=== PATIENT | male | born 1945 | race Caucasian/White ===

== ENCOUNTER → 2019-04-29 09:31 | Outpatient (CLI) | payer MEDICARE, SELFPAY ==
[2015-01-03 16:10] VITALS: BMI 29.7
[2019-04-29 09:49] LABS: International Normalized Ratio 3.3; Prothrombin Time (Protime)PT. 33.4 SECONDS (11.7-14.9)
== END ==
PROVIDERS: Family Provider Family Medicine; PCP Family Medicine; Referring Provider Family Medicine; Visit Provider Family Medicine
DX: I82.401 Acute embolism and thrombosis of unspecified deep veins of right lower extremity (principal)
CPT/HCPCS: 85610

== ENCOUNTER → 2019-04-30 09:23 | Outpatient (CLI) | payer MEDICARE, SELFPAY ==
[2019-04-30 10:00] LABS: International Normalized Ratio 2.6; Prothrombin Time (Protime)PT. 28.3 SECONDS (11.7-14.9)
== END ==
PROVIDERS: Family Provider Family Medicine; PCP Family Medicine; Referring Provider Family Medicine; Visit Provider Family Medicine
DX: I82.401 Acute embolism and thrombosis of unspecified deep veins of right lower extremity (principal)
CPT/HCPCS: 85610

== ENCOUNTER → 2019-05-04 10:18 | Outpatient (CLI) | payer MEDICARE, SELFPAY ==
[2015-01-03 16:10] VITALS: BMI 29.7
[2019-05-04 11:02] LABS: International Normalized Ratio 1.8; Prothrombin Time (Protime)PT. 21.1 SECONDS (11.7-14.9)
== END ==
PROVIDERS: Family Provider Family Medicine; PCP Family Medicine; Referring Provider Family Medicine; Visit Provider Family Medicine
DX: I82.401 Acute embolism and thrombosis of unspecified deep veins of right lower extremity (principal)
CPT/HCPCS: 85610

== ENCOUNTER → 2019-06-26 10:03 | Outpatient (CLI) | payer MEDICARE, SELFPAY ==
[2015-01-03 16:10] VITALS: BMI 29.7
[2019-06-26 10:30] LABS: International Normalized Ratio 1.9; Prothrombin Time (Protime)PT. 21.9 SECONDS (11.7-14.9)
== END ==
PROVIDERS: Family Provider Family Medicine; PCP Family Medicine; Referring Provider Family Medicine; Visit Provider Family Medicine
DX: Z86.718 Personal history of other venous thrombosis and embolism (principal)
CPT/HCPCS: 85610

== ENCOUNTER 2019-10-26 18:29 | Emergency (ER) | payer MEDICARE, SELFPAY ==
[2019-10-26] VITALS (18 sets, daily range): BP systolic 138–167; BP diastolic 67–92; PULSE 76–83; RESP 18–25; TEMP 36.6; O2SAT 97–99; BMI 31.3
--- NOTE | 2019-10-26 18:39 | EKG12_ITS ---
Test Reason : STROKE Blood Pressure : / mmHG Vent. Rate : 087 BPM Atrial Rate : 087 BPM P-R Int : 220 ms QRS Dur : 092 ms QT Int : 416 ms P-R-T Axes : 063 047 070 degrees QTc Int : 500 ms Sinus rhythm with 1st degree A-V block Nonspecific ST and T wave abnormality Prolonged QT Abnormal ECG Confirmed by JUANITA PRETTY, HALEY ([id number]), editor trade journal GILLIAN DRAKE ([id number]) on 10/27/2019 1:45:49 PM Referred By: GREG Confirmed By:HALEY GRANT MD
--- NOTE | 2019-10-26 18:39 | CT_ITS ---
We are attempting to reach an attending provider to discuss findings. An addendum with communication details will be sent when the communication is complete. STUDY: CT BRAIN WITHOUT CONTRAST REASON FOR EXAM: Male, 74 years old. RT SIDE WEAKNESS, STROKE RADIATION DOSAGE (If Supplied By Facility): CTDIvol = ( 44.99 ) mGy, DLP = ( 849.54 ) mGycm TECHNIQUE: Transaxial CT imaging of the brain was performed without administration of intravenous contrast material. Individualized dose optimization techniques were used for this CT. COMPARISON: No relevant priors. FINDINGS: Normal soft tissue structures. Normal calvarium. Acute hemorrhage in the left basal ganglia measures 1.3 x 0.9 x 2.8 cm. There is a chronic right occipital infarct. Small chronic bifrontal infarcts. There is moderate cerebral atrophy with widening of the extra-axial spaces and ventricular dilatation. There are areas of decreased attenuation within the white matter tracts of the supratentorial brain, consistent with microvascular disease changes. Normal visualized paranasal sinuses. CT/Brain/Head without Contrast IMPRESSION: 1. Acute left basal ganglia hemorrhage, likely hypertensive in origin. 2. Chronic right occipital and bifrontal infarcts. 3. Moderate microvascular ischemic changes. Atrophy. Electronically Signed: Kadi Erwin MD at 19:04 EDT Tel , Service support ,
--- NOTE | 2019-10-26 18:40 | CT_ITS ---
STUDY: CTA HEAD AND NECK WITH CONTRAST REASON FOR EXAM: Male, 74 years old. RIGHT SIDED WEAKNESS RADIATION DOSAGE (If Supplied By Facility): CTDIvol = ( 18.31 ) mGy, DLP = ( 858.04 ) mGycm TECHNIQUE: CT angiography was performed with a multi-detector CT scanner. Data acquisition was obtained from the skull base through the vertex following intravenous administration of IV 100 ML ISOVUE 370. MIP images were reconstructed from the axial data set. Post-processing of the angiographic images was performed, with multiplanar reformation and 3D reconstruction. Individualized dose optimization techniques were used for this CT. COMPARISON: No relevant priors. FINDINGS: Study limited by performance in venous phase. Petrous and cavernous arteries are patent bilaterally. Hypoplastic or aplastic A1 segment of the left anterior cerebral artery. Anterior cerebral arteries are otherwise unremarkable. No aneurysm, dissection, stenosis, or occlusion. Normal intact anterior communicating artery (ACOM). Normal right M1 and M2 segments of the middle cerebral arteries, with a normal M1 bifurcation. Normal left M1 and M2 segments of the middle cerebral arteries, with a normal M1 bifurcation. Nonvisualized posterior communicating arteries. Normal bilateral vertebral arteries. Normal basilar artery with a normal basilar bifurcation. The visualized bilateral superior cerebellar (SCA) arteries are normal. Hypoplastic P1 segment of the right posterior cerebral artery. Posterior cerebral arteries are otherwise unremarkable. There is no demonstrated aneurysm of the [place]. AORTIC ARCH: Normal visualized aortic arch. Normal origins of the brachiocephalic, left common carotid, and left subclavian arteries. RIGHT CAROTID ARTERIES: Normal right common carotid artery (CCA). Normal right common carotid bulb. Normal origin of the right internal carotid (ICA) artery without stenosis. Normal visualized cervical portion of the right internal carotid artery. Normal origin of the right external carotid artery (ECA). LEFT CAROTID ARTERIES: Normal left common carotid artery (CCA). Normal left common carotid bulb. Normal origin of the left internal carotid (ICA) artery without stenosis. Normal visualized cervical portion of the left internal carotid artery. Normal origin of the left external carotid artery (ECA). VERTEBRAL ARTERIES: Normal bilateral vertebral arteries. CT/CTA Head AND Neck W/ Contrast IMPRESSION: Normal CTA Head and neck with contrast. N.B. : The above information has been verbally conveyed by Kadi Erwin MD to Otis Zimmerman on 10/26/2019 19:05:29 (ET). Electronically Signed: Kadi Erwin MD at 19:15 EDT Tel , Service support ,
--- NOTE | 2019-10-26 18:40 | ED.DCSUM_ITS ---
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 The patient states that he was feeling lightheaded and felt like he was going to pass out. He states he felt like his right leg went out and went to the ground. Since then, he has had difficulty controlling his right arm and right leg. He did not strike his head. He denies loss of consciousness. He is been compliant with his Coumadin therapy. He has no history of prior stroke. He states he is otherwise been in his normal state of health. Prior similar symptoms: No Recent Illness/Hospitalization: No Past Medical History - Allergies and Home Meds Allergies/Adverse Reactions: Allergies No Known Allergies Allergy (Verified 10/26/19 18:31) Primary Care Physician: Sanju Fiore MD [Primary Care Provider] - Prior records reviewed: Yes Past Medical History: - - History of prior liver transplant, DVT on Coumadin Surgical History: - - Liver transplant Smoking Status: Never smoker Review of Systems General: Denies: Chills, Fever, Sweats Eyes: Denies: Visual changes - bilaterally, Diplopia ENT: Denies: Rhinorrhea, Sore throat Cardiovascular: Denies: Chest pain, Palpitations Respiratory: Denies: Dyspnea, Cough, Dyspnea on exertion Gastrointestinal: Denies: Abdominal pain, Nausea, Vomiting, Diarrhea, Melena, Hematochezia Genitourinary: Denies: Dysuria, Hematuria, Frequency Musculoskeletal: Denies: Back pain, Extremity Pain Skin: Denies: Rash, Wounds Neurological: Reports: Weakness, Numbness. Denies: Headache Physical Exam Vital Signs/Narrative: Vital Signs Temp Pulse Resp BP Pulse Ox 10/26/19 18:30 98 F 78 18 161/77 H 97 Inital Vital Signs reviewed: Yes General: Well nourished, Well developed, No Acute Distress Head: Normocephalic, Atraumatic Eyes: Perrl, EOMI ENT: Moist mucous membranes, No rhinorrhea Neck: Supple, Nontender Cardiovascular: Regular rate, Regular rhythm, No murmurs Respiratory: No distress, CTA bilaterally, Chest nontender Abdomen: Soft, Nontender, Nondistended, Normal bowel sounds Back: Nontender, Normal Inspection Extremities: Nontender, No edema Skin: Normal color, No rash Neurological: Alert, Oriented x3, Cranial nerves II-XII grossly intact, Parasthesia, Weakness. Negative for: Confused, Disoriented, Lethargic, Right side facial droop Psychological: Normal affect, Normal Mood Diagnostic/Tx/Re-eval Clinical Impression(s) from Imaging Studies Brain CT 10/26/19 18:39 IMPRESSION: 1. Acute left basal ganglia hemorrhage, likely hypertensive in origin. 2. Chronic right occipital and bifrontal infarcts. 3. Moderate microvascular ischemic changes. Atrophy. Electronically Signed: Kadi Erwin MD at 19:04 EDT Tel , Service support , ADDENDUM: 10/26/19 1912 IMPRESSION: 1. Acute left basal ganglia hemorrhage, likely hypertensive in origin. 2. Chronic right occipital and bifrontal infarcts. 3. Moderate microvascular ischemic changes. Atrophy. N.B. : The above information has been verbally conveyed by Kadi Erwin MD to Otis Zimmerman MD, on 10/26/2019 19:05:42 (ET). Electronically Signed: Kadi Erwin MD at 19:04 EDT Tel , Service support , Head/Neck CTA 10/26/19 18:40 IMPRESSION: Normal CTA Head and neck with contrast. N.B. : The above information has been verbally conveyed by Kadi Erwin MD to Otis Zimmerman on 10/26/2019 19:05:29 (ET). Electronically Signed: Kadi Erwin MD at 19:15 EDT Tel , Service support , ADDENDUM: 10/26/19 1922 IMPRESSION: Normal CTA Head and neck with contrast. N.B. : The above information has been verbally conveyed by Kadi Erwin MD to Otis Zimmerman on 10/26/2019 19:05:29 (ET). Electronically Signed: Kadi Erwin MD at 19:15 EDT Tel , Service support , Abnormal Lab Results 10/26/19 10/26/19 10/26/19 18:41 18:45 18:45 WBC 7.2 RBC 3.38 L Hgb 9.0 L Hct 28.0 L MCV 82.8 MCH 26.6 L MCHC 32.1 RDW Std Deviation 43.2 RDW Coeff of Ursula 14.4 Plt Count 132 L MPV 8.3 Immature Gran % (Auto) 1.100 H Neut % (Auto) 71.9 H Lymph % (Auto) 15.8 L [place] % (Auto) 8.9 Eos % (Auto) 1.7 Baso % (Auto) 0.6 Absolute Neuts (auto) 5.2 Absolute Lymphs (auto) 1.13 Nucleated RBC % 0 PT 28.0 H INR 2.6 APTT 65.7 H Sodium Potassium Chloride Carbon Dioxide Anion Gap BUN Creatinine Estim Creat Clear Calc Est GFR (MDRD) Af Amer Est GFR (MDRD) Non-Af BUN/Creatinine Ratio Glucose Calcium Troponin I POC Glucose 116 H 10/26/19 18:45 WBC RBC Hgb Hct MCV MCH MCHC RDW Std Deviation RDW Coeff of Ursula Plt Count MPV Immature Gran % (Auto) Neut % (Auto) Lymph % (Auto) [place] % (Auto) Eos % (Auto) Baso % (Auto) Absolute Neuts (auto) Absolute Lymphs (auto) Nucleated RBC % PT INR APTT Sodium 138 Potassium 4.5 Chloride 109 H Carbon Dioxide 22.0 Anion Gap 7 BUN 42 H Creatinine 2.71 H Estim Creat Clear Calc 22.36 Est GFR (MDRD) Af Amer 30 L Est GFR (MDRD) Non-Af 25 L BUN/Creatinine Ratio 15.5 Glucose 127 H Calcium 8.6 Troponin I < 0.015 POC Glucose - Medical Decision Making The patient presents to the emergency department with right-sided weakness. His NIH was only 3, but given the history, stroke team was activated. The patient was sent immediately for a noncontrast head CT. This does show evidence of hypertensive bleed in the left basal ganglia. The patient was seen and evaluated in conjunction with [facility] neurology. CTs were reviewed. It was recommended transfer. However, the patient has received all of his care through [facility] and was requesting transfer there. His INR is therapeutic at 2.6, but given the hemorrhagic stroke, this will be acutely reversed. The patient is given Kcentra and vitamin K. He is mildly hypertensive at 160/70, therefore was started on a Cardene drip. The patient was discussed with neurosurgery, Dr. Bean at [facility] and was accepted. He will be transferred for intraparenchymal hemorrhage. Impression 1. Acute hemorrhagic stroke - Critical Care Time Critical care time (excluding procedures): 30-74 minutes, Discussing w/Patient &/or Family/Director Of First Impressions, Discussing w/Consultants, Arranging Admission or Transfer, Performing Direct Patient Care at Bedside ED Disposition - Plan for ED Patient: Referrals: Sanju Fiore MD [Primary Care Provider] -
--- NOTE | 2019-10-26 18:42 | ED.RN ---
NO OLD EKGS IN MUSE
[2019-10-26 18:50] LABS: Bedside Glucose 116 mg/dL (70-110)
--- NOTE | 2019-10-26 18:50 | CM.ED ---
SOCIAL WORK REASON FOR REFERRAL: STROKE ALERT RESPONDED TO STROKE ALERT. PATIENT'S , KIANNA PRESENT. SUPPORT AND EDUCATION PROVIDED. THIS WORKER TO REMAIN AVAILABLE FOR NEEDS. Debby RASCON, CROP RANCH HAND, GRAIN UNLOADER MACHINE.
[2019-10-26 18:54] LABS: Absolute Lymphocyte Count 1.13 X10^3/uL (0.83-4.51); Absolute Neutrophil Count 5.2 X10^3/uL (2.0-7.7); Basophil# 0.04 X10^3/uL; Basophil% 0.6 % (0-1); Eosinophil# 0.12 X10^3/uL; Eosinophils% 1.7 % (0-5); Lymphocyte # 1.13 X10^3/ul (4.0); Lymphocyte % 15.8 % (19-41); Mean Corp Hgb Conc 32.1 g/dL (32-36); Mean Corpuscular Hgb 26.6 pg (27.0-32.0); Mean Corpuscular Volume 82.8 fL (80-94); Mean Platelet Vol. 8.3 fl (6.2-12.0); Monocyte# 0.64 X10^3/uL; Monocyte% 8.9 % (0-10); NRBC Flagged by Analyzer 0 % (0-5); Neutrophil # 5.15 X10^3/uL (2.7-7.7); Neutrophil % 71.9 % (47-70); Platelet Count 132 K/mm3 (150-450); RBC Distribution Width CV 14.4 % (11.6-14.6); RBC Distribution Width SD 43.2 fl (35.1-43.9); Red Blood Count 3.38 M/mm3 (4.6-6.2); White Blood Count 7.2 K/mm3 (4.4-11.0)
--- NOTE | 2019-10-26 18:57 | ED.RN ---
FACE SHEET FAXED TO [facility]
[2019-10-26 19:02] LABS: International Normalized Ratio 2.6
[2019-10-26 19:04] LABS: Partial Thromboplast Time 65.7 Seconds (24.1-36.2)
[2019-10-26 19:11] LABS: Anion Gap 7 (5-15); BUN 42 mg/dL (7-18); BUN/Creat Ratio 15.5 RATIO (10-20); Calcium,Total 8.6 mg/dL (8.5-10.1); Chloride 109 mmol/L (98-107); Creatinine, Serum 2.71 mg/dL (0.70-1.30); EST Glomerular Filtration Rate 25 mL/min (>60); Est Glom Filt Rate - Afr Amer 30 mL/min (>60); Estimated Creatinine Clearance 22.36 ml/min; Glucose 127 mg/dL (74-106); Potassium 4.5 mmol/L (3.5-5.1); Sodium Level 138 mmol/L (136-145)
--- NOTE | 2019-10-26 19:15 | RAD_ITS ---
STUDY: X-RAY CHEST REASON FOR EXAM: Male, 74 years old. WEAKNESS TECHNIQUE: Portable chest. COMPARISON: None. FINDINGS: The lungs are clear and expanded. There is no demonstrated pleural abnormality. Normal size heart. Normal mediastinum and christina. Normal visualized pulmonary arteries. Normal visualized aortic arch and descending thoracic aorta. Normal visualized thoracic spine. Normal visualized ribs, clavicles, and shoulders. There is no demonstrated abnormality of the visualized soft tissue structures of the upper abdomen. RAD/Chest 1 View IMPRESSION: Normal x-ray examination of the chest. Electronically Signed: Kadi Erwin MD at 21:02 EDT Tel , Service support ,
[2019-10-26] MEDS: 0.9% Normal Saline 1,000 ML 100 ML IV (19:29)
--- NOTE | 2019-10-26 19:48 | ED.RN ---
[facility] ETA 20 MINS REPORT GIVEN TO TRANSFER CENTER AT THIS TIME
--- NOTE | 2019-10-26 20:18 | ED.RN ---
CARDENE WAS NOT AVAILABLE IN ACCUDOSE WHEN MEDICATON WAS ORDERED. HAD TO CALL PHARMACY TO GET CARDENE GTT.
--- NOTE | 2019-10-26 20:20 | ED.RN ---
PATIENT BP WAS 144/73 WHILE MAXED OUT (15ML/HR) ON CARDENE GTT. DR. MULTANI WAS NOTIFIED. WILL CONTINUE TO MONITOR
== END 2019-10-26 20:15 | disposition short-term general hospital (02) ==
LOC: ED 18:45
PROVIDERS: Emergency Provider Emergency Medicine; PCP Family Medicine
DX: I61.0 Nontraumatic intracerebral hemorrhage in hemisphere, subcortical (principal); Z79.01 Long term (current) use of anticoagulants; Z86.718 Personal history of other venous thrombosis and embolism; Z94.4 Liver transplant status
CPT/HCPCS: 70450; 70496; 70498; 71045; 80048; 82962; 84484; 85025; 85610; 85730; 86850; 86900; 86901; 93005; 96361; 96365; 99285; C9132; J7030; J7050; Q9967; A4216; J3490

== ENCOUNTER → 2019-11-03 12:13 | Outpatient (CLI) | payer MEDICARE, SELFPAY ==
[2019-10-26 18:30] VITALS: BMI 31.3
[2019-11-03 12:38] LABS: International Normalized Ratio 1.1; Prothrombin Time (Protime)PT. 13.7 SECONDS (11.7-14.9)
== END ==
PROVIDERS: PCP Family Medicine; Referring Provider Family Medicine; Visit Provider Family Medicine
DX: Z86.718 Personal history of other venous thrombosis and embolism (principal)
CPT/HCPCS: 85610

== ENCOUNTER → 2021-02-02 11:03 | Outpatient (CLI) | payer MEDICARE, SELFPAY ==
[2019-10-26 18:30] VITALS: BMI 31.3
--- NOTE | 2021-02-02 11:30 | MRI_ITS ---
HISTORY: INTERVERTEBRAL DISC DEGEN LUMBAR/pain low back and rt leg. TECHNIQUE: Multiplanar and multisequence MR images of the lumbar spine. IV Contrast dosage and agent: None. # of images incl. paperwork: 182. COMPARISON: None. FINDINGS: VERTEBRAE: Mild chronic compression fracture of T12 with minimal retropulsion into the spinal canal. Lumbar vertebral body heights maintained. Degenerative bone marrow endplate changes. Bilateral L5 spondylolysis. ALIGNMENT: 4 mm anterolisthesis of L5-S1. Mild lumbar levoscoliosis. CONUS: Normal morphology and position at L1. SOFT TISSUES: Small bilateral renal cysts. Posterior subcutaneous edema. INTERVERTEBRAL DISCS: Multilevel degenerative changes with posterior disc bulge osteophyte complexes and facet arthropathy. L1-2: Mild bilateral foraminal narrowing. L2-3:Mild central canal stenosis. Mild left and moderate right foraminal narrowing. L3-4: Right paracentral disc protrusion abutting the right L4 nerve root with minimal narrowing of thecal sac. Mild left and moderate right foraminal narrowing. L4-5: No significant posterior disc herniation or spinal canal stenosis. Moderate bilateral foraminal narrowing. L5-S1: Mild bilateral foraminal narrowing. MRI/Spine Lumbar (Routine) IMPRESSION: Multilevel degenerative disc disease as described above. L5 spondylolysis with grade 1 spondylolisthesis. Mild chronic T12 compression fracture. at 1658 Reported and signed by: Julita Arredondo MD Electronically Signed: Julita Arredondo MD at 16:57 EDT Tel , Service support ,
== END ==
PROVIDERS: PCP Family Medicine; Referring Provider Anesthesiology Pain Medicine; Visit Provider Anesthesiology Pain Medicine
DX: M51.37 Other intervertebral disc degeneration, lumbosacral region (principal)
CPT/HCPCS: 72148

== ENCOUNTER 2021-08-21 19:30 | Inpatient (IN) | payer MEDICARE, SELFPAY ==
[2021-08-21 19:31] VITALS: BP 180/90; PULSE 69; RESP 16; TEMP 36.1; O2SAT 97; BMI 31.3
[2021-08-22] VITALS (7 sets, daily range): BP systolic 141–167; BP diastolic 73–95; PULSE 87–94; RESP 16–20; TEMP 36.6–36.8; O2SAT 97–99; BMI 30.1
--- NOTE | 2021-08-22 01:25 | CT_ITS ---
STUDY: CT ABDOMEN AND PELVIS WITHOUT CONTRAST REASON FOR EXAM: Male, 76 years old. ? Incarcerated umbilical hernia with obstruction RADIATION DOSAGE (If Supplied By Facility): CTDIvol = ( 14.37 ) mGy, DLP = ( 750.33 ) mGycm TECHNIQUE: Transaxial images were obtained from the dome of the diaphragm to the symphysis pubis without oral contrast, and without intravenous contrast. Sagittal and coronal images were reconstructed. Individualized dose optimization techniques were used for this CT. COMPARISON: None. FINDINGS: The visualized lung bases are unremarkable. The visualized portions of the heart are within normal limits. Normal liver. There are surgical clips in the gallbladder fossa consistent with a prior cholecystectomy. Normal spleen. Marked pancreatic atrophy with dilated pancreatic duct containing fluid and extensive calcifications in the uncinate process. Normal bilateral adrenal glands. There is moderate cortical atrophy of the right kidney, consistent with chronic medical renal disease. There is moderate cortical atrophy of the left kidney, consistent with chronic medical renal disease. Bilateral renal cysts. There is a small hiatal hernia. Significant fluid dilated stomach. Numerous dilated loops of small bowel proximally. There is a large ventral wall abdominal artery containing loops of decompressed small bowel with a smaller subjacent ventral wall hernia containing loops of dilated small bowel. This is a transition point. This measures roughly 2.6 cm in diameter. Normal colon. There is non-visualization of the appendix. Normal abdominal aorta. Normal inferior vena cava. Normal retroperitoneum. Normal urinary bladder. Normal visualized prostate gland. Small amount of pelvic free fluid. Normal abdominal wall. Normal osseous structures. CT/Abdomen/Pel W ORAL Cont Only IMPRESSION: Dilated stomach with dilated loops of proximal small bowel. There are 2 ventral wall abdominal hernias, one is larger than the other, the larger hernia contains loops of nondilated bowel, the smaller subjacent hernia contains loops of dilated bowel. This is the transition point. High-grade small bowel obstruction Atrophy of the pancreas with dilated fluid distended pancreatic duct with extensive calcifications compatible with chronic pancreatitis Electronically Signed: Cole Baptiste DO at 4:17 EST Tel , Service support ,
[2021-08-22 01:50] LABS: Absolute Lymphocyte Count 0.85 X10^3/uL (0.83-4.51); Absolute Neutrophil Count 8.8 X10^3/uL (2.0-7.7); Basophil# 0.05 X10^3/uL; Basophil% 0.5 % (0-1); Eosinophil# 0.04 X10^3/uL; Eosinophils% 0.4 % (0-5); Hematocrit 35.4 % (40-54); Hemoglobin 11.3 g/dL (13.0-16.5); Lymphocyte # 0.85 X10^3/ul (0.83-4.51); Lymphocyte % 8.2 % (19-41); Mean Corp Hgb Conc 31.9 g/dL (32-36); Mean Corpuscular Volume 84.5 fL (80-94); Monocyte# 0.49 X10^3/uL; Monocyte% 4.7 % (0-10); NRBC Flagged by Analyzer 0 % (0-5); Neutrophil # 8.82 X10^3/uL (2.7-7.7); Neutrophil % 85.2 % (47-70); Platelet Count 187 K/mm3 (150-450); RBC Distribution Width CV 14.7 % (11.6-14.6); RBC Distribution Width SD 45.1 fl (35.1-43.9); Red Blood Count 4.19 M/mm3 (4.6-6.2); White Blood Count 10.4 K/mm3 (4.4-11.0)
[2021-08-22] MEDS: Ondansetron 4 MG/2 ML Vial IV ×2 (01:51→06:54)
[2021-08-22] MEDS: Morphine 4 MG/ML Syringe IV (01:53)
[2021-08-22 02:08] LABS: Anion Gap 11 (5-15); BUN 39 mg/dL (7-18); BUN/Creat Ratio 12.7 RATIO (10-20); Calcium,Total 10.5 mg/dL (8.5-10.1); Chloride 102 mmol/L (98-107); Creatinine, Serum 3.08 mg/dL (0.70-1.30); EST Glomerular Filtration Rate 21 mL/min (>60); Est Glom Filt Rate - Afr Amer 26 mL/min (>60); Estimated Creatinine Clearance 19.08 ml/min; Glucose 183 mg/dL (74-106); Potassium 4.6 mmol/L (3.5-5.1); Sodium Level 139 mmol/L (136-145)
[2021-08-22 02:15] LABS: Lactic Acid 1.8 mmol/L (0.4-1.9)
[2021-08-22 02:28] LABS: International Normalized Ratio 1.1; Prothrombin Time (Protime)PT. 13.3 SECONDS (11.7-14.9)
--- NOTE | 2021-08-22 04:35 | RAD_ITS ---
STUDY: X-RAY - ABDOMEN/PELVIS REASON FOR EXAM: Male, 76 years old. NG Insertion TECHNIQUE: Single AP view of the abdomen / pelvis. COMPARISON: None. FINDINGS: NG tube is present the tip is at the diaphragm should be advanced 15 to 20 cm. There is an unremarkable bowel gas pattern. There is no demonstrated free abdominal air. The visualized liver, spleen and kidneys are grossly normal in size and morphology. Normal soft tissue structures. Normal visualized osseous structures. RAD/Abdomen Single View (Portable) IMPRESSION: NG tube is present the tip is at the diaphragm should be advanced 15 to 20 cm. Electronically Signed: Yodit Samuel MD at 7:05 EST Tel , Service support ,
[2021-08-22] MEDS: Lidocaine 4% 5 ML Ampul 2 ML INHALATION (05:01)
[2021-08-22] MEDS: Oxymetazoline 0.05% 1 SPRAY SPRAY.BTL 2 SPRAY NASAL (05:31)
[2021-08-22] MEDS: 0.9% Normal Saline 1,000 ML 125 ML IV ×2 (06:41→17:37)
--- NOTE | 2021-08-22 06:46 | ED.RN ---
patient very difficult insertion due to previous broken nose. able to insert 10fr NG at this time. Dr. Jorge made aware
--- NOTE | 2021-08-22 07:00 | RAD_ITS ---
STUDY: X-RAY - ABDOMEN/PELVIS REASON FOR EXAM: Male, 76 years old. NG tube placement -- advanced tube TECHNIQUE: Single AP view of the abdomen / pelvis. COMPARISON: None. FINDINGS: NG tube is present the tip is within the gastric lumen. There is an unremarkable bowel gas pattern. There is no demonstrated free abdominal air. The visualized liver, spleen and kidneys are grossly normal in size and morphology. Normal soft tissue structures. Normal visualized osseous structures. RAD/Abdomen Single View (Portable) IMPRESSION: NG tube is present the tip is within the gastric lumen. Electronically Signed: Yodit Samuel MD at 7:13 EST Tel , Service support ,
--- NOTE | 2021-08-22 07:43 | EX.ED.DYSGE1 ---
HPI History of Present Illness Chief Complaint: Abd Pain Narrative Narrative: Patient is a 76-year-old male with past medical history of liver transplant done in 2013 at [facility]. He states that over the past couple days has been feeling like his stomach is bloated. With this he has had bouts of nausea with a little bit of vomiting. He states he had a bowel movement yesterday but has not had one today. He reports he has been taking [id number] gas medication with no symptom improvement and secondary to this comes to the hospital for evaluation. [facility] Medical History Cirrhosis Hemochromatosis Hernia History of blood clots Hyperlipidemia Hypertension Kidney disease Non-smoker Stroke/cerebrovascular accident Home Medications carvedilol 25 mg PO BID 10/26/19 [History Last Taken Unknown] diltiazem HCl 240 mg PO DAILY 10/26/19 [History Last Taken Unknown] aspirin 81 mg PO DAILY 08/22/21 [History Last Taken Unknown] atorvastatin 40 mg PO DAILY 08/22/21 [History Last Taken Unknown] cholecalciferol (vitamin D3) [Vitamin D3] 125 mcg PO DAILY 08/22/21 [History Last Taken Unknown] furosemide 20 mg PO DAILY 08/22/21 [History Last Taken Unknown] sirolimus [Rapamune] 0.5 mg PO DAILY 08/22/21 [History Last Taken Unknown] sodium bicarbonate 650 mg PO BID 08/22/21 [History Last Taken Unknown] vitamin B6-vitamin E-magnesium 1 tab PO DAILY 08/22/21 [History Last Taken Unknown] Allergy/AdvReac Type Severity Reaction Status Date / Time No Known Allergies Allergy Verified 08/21/21 19:33 Surgical History (Updated 08/22/21 @ 01:01 by Maulik Macias) History of appendectomy History of cholecystectomy History of liver transplant Social History Smoking Status: Never smoker ROS ROS ED Constitutional Constitutional ED: Denies chills or fever(s) ENT ENT ED: Denies sore throat Cardiovascular Cardiovascular: Denies chest pain Respiratory/Chest Respiratory/Chest: Denies cough or dyspnea Gastrointestinal Gastrointestinal: Reports abdominal pain, constipation and nausea; Denies diarrhea or vomiting Genitourinary Genitourinary ED: Denies dysuria Musculoskeletal Musculoskeletal: Denies myalgias Integumentary Denies rash Neurologic Neurologic: Denies headache(s) Hematologic/Lymphatic Hematologic/Lymphatic: Reports easy bleeding and easy bruising EXAM Physical Exam Const Vital Signs: 08/21/21 19:31 08/22/21 01:55 08/22/21 03:53 Temperature 97 F L Temperature Source Temporal Pulse Rate 69 88 Respiratory Rate 16 20 H 16 Respiratory Pattern Blood Pressure 180/90 H 167/95 H Blood Pressure Mean 120 119 Pulse Ox 97 97 Oxygen Delivery Method Room Air Room Air Room Air 08/22/21 05:03 08/22/21 06:38 Temperature Temperature Source Pulse Rate 91 87 Respiratory Rate 18 20 H Respiratory Pattern Normal Blood Pressure Blood Pressure Mean Pulse Ox 99 Oxygen Delivery Method Room Air Positive well nourished and well developed General Appearance ED: well developed HEENT Reports dry mucous membranes Mouth ED: Yes dry mucous membranes Mouth: dry mucous membranes Eyes PERRL and EOMs intact bilaterally Neck supple Resp normal respiratory effort and clear to auscultation bilaterally Cardio regular rate and regular rhythm Rate: other Other Details: Radial pulses are plus 2 out of 4 bilaterally are equal and symmetric GI GI Narrative: Abdomen is distended with hypoactive bowel sounds. Patient has a large hernia present just underneath the scar tissue from his liver transplant. This feels reducible in nature. There is a small hernia just to the midline of the umbilicus that is firm and tender to palpation and feels incarcerated. No pulsatile mass Extremity normal to inspection Neuro oriented x3 and CN's II-XII intact bilaterally Sensorium / Orientation: alert Motor Exam: strength 5/5 throughout Psych mental status grossly normal Skin no rashes or lesions noted Skin Narrative: Skin turgor is increased MDM MDM MDM Narrative Medical decision making narrative: Patient presented to the ER afebrile. His exam is concerning for an incarcerated umbilical hernia causing bowel obstruction. I did attempt to reduce the hernia prior to ordering blood work and CT scan but was unsuccessful. Secondary to this I elected to perform basic laboratory studies as well as a CT scan. Labs show chronic renal insufficiency slightly worse from his baseline but otherwise no acute finding. CT scan was obtained which does confirm bowel obstruction with hernia. I talked to our general surgeon who states with his transplant status he does not feel comfortable keeping him at our institution. Secondary to the [facility] was contacted and they do agree to accept the patient at this time. An NG tube was placed which did help decompress the bowel and the hernia was able to be reduced with manual pressure. Therefore at this time the patient's symptoms should improve but there is a chance that they could return and therefore we await transfer to [facility]. Lab Data Attestation: I reviewed the patient's lab results. Labs: Laboratory Results - last 24 hr 08/22/21 08/22/21 08/22/21 01:42 01:42 01:42 WBC 10.4 RBC 4.19 L Hgb 11.3 L Hct 35.4 L MCV 84.5 MCH 27.0 MCHC 31.9 L RDW Std Deviation 45.1 H RDW Coeff of Ursula 14.7 H Plt Count 187 MPV 9.0 Immature Gran % (Auto) 1.000 H Neut % (Auto) 85.2 H Lymph % (Auto) 8.2 L Harris % (Auto) 4.7 Eos % (Auto) 0.4 Baso % (Auto) 0.5 Absolute Neuts (auto) 8.8 H Absolute Lymphs (auto) 0.85 Nucleated RBC % 0 PT INR Sodium 139 Potassium 4.6 Chloride 102 Carbon Dioxide 26.0 Anion Gap 11 BUN 39 H Creatinine 3.08 H Estim Creat Clear Calc 19.08 Est GFR (MDRD) Af Amer 26 L Est GFR (MDRD) Non-Af 21 L BUN/Creatinine Ratio 12.7 Glucose 183 H Lactic Acid 1.8 Calcium 10.5 H 08/22/21 01:42 WBC RBC Hgb Hct MCV MCH MCHC RDW Std Deviation RDW Coeff of Ursula Plt Count MPV Immature Gran % (Auto) Neut % (Auto) Lymph % (Auto) Harris % (Auto) Eos % (Auto) Baso % (Auto) Absolute Neuts (auto) Absolute Lymphs (auto) Nucleated RBC % PT 13.3 INR 1.1 Sodium Potassium Chloride Carbon Dioxide Anion Gap BUN Creatinine Estim Creat Clear Calc Est GFR (MDRD) Af Amer Est GFR (MDRD) Non-Af BUN/Creatinine Ratio Glucose Lactic Acid Calcium Radiography Diagnostic Testing: Clinical Impression(s) from Imaging Studies Abdomen CT 08/22/21 01:25 IMPRESSION: Dilated stomach with dilated loops of proximal small bowel. There are 2 ventral wall abdominal hernias, one is larger than the other, the larger hernia contains loops of nondilated bowel, the smaller subjacent hernia contains loops of dilated bowel. This is the transition point. High-grade small bowel obstruction Atrophy of the pancreas with dilated fluid distended pancreatic duct with extensive calcifications compatible with chronic pancreatitis Electronically Signed: Cole Baptiste DO at 4:17 EST Tel , Service support , KUB X-Ray 08/22/21 04:35 IMPRESSION: NG tube is present the tip is at the diaphragm should be advanced 15 to 20 cm. Electronically Signed: Yodit Samuel MD at 7:05 EST Tel , Service support , KUB X-Ray 08/22/21 07:00 IMPRESSION: NG tube is present the tip is within the gastric lumen. Electronically Signed: Yodit Samuel MD at 7:13 EST Tel , Service support , Discharge Plan Triage Chief Complaint: Abd Pain ED Provider: Filiberto Jorge Dx/Rx/DC Orders Clinical Impression: Small bowel obstruction, Incarcerated epigastric hernia Prescriptions: No Action carvedilol 25 MG tablet 25 mg PO BID RF: 0 diltiazem HCl 60 MG tablet 240 mg PO DAILY RF: 0 atorvastatin 40 mg tablet 40 mg PO DAILY RF: 0 sodium bicarbonate 650 mg tablet 650 mg PO BID RF: 0 aspirin 81 mg Tablet 81 mg PO DAILY RF: 0 furosemide 20 mg tablet 20 mg PO DAILY RF: 0 vitamin B6-vitamin E-magnesium Tablet 1 tab PO DAILY RF: 0 cholecalciferol (vitamin D3) [Vitamin D3] 125 mcg (5,000 unit) Tablet 125 mcg PO DAILY RF: 0 sirolimus [Rapamune] 0.5 mg Tablet 0.5 mg PO DAILY RF: 0 Primary Care Provider: Sanju Fiore Referrals: Sanju Fiore MD [Primary Care Provider] - Disposition Disposition: Transfer to Another Type HCF
--- NOTE | 2021-08-22 09:56 | NURSING ---
PER AAYUSH WITH [facility] PT IS STILL WAITING ON A BED AND SHE HAS NO IDEA WHEN THAT WILL BE; HIGHLY UNLIKELY THAT IT WILL BE TODAY.
--- NOTE | 2021-08-22 10:24 | PCM.HP.STD ---
HPI - General General Date of Admission: 08/22/21 Date of Service: 08/22/21 Chief Complaint: Abdominal distention HPI Narrative SELVIN SANON, is a 76 M who presents with the above. Patient has history of ventral hernia. He comes in with complaints of feeling that his stomach is bloated associated with nausea and vomiting. He denied any fever or chills. His vitals in the ED were stable. CT scan of the abdomen and pelvis showed dilated stomach with dilated loops of proximal small bowel, high-grade small bowel obstruction. General surgery was consulted in the ED and his hernia was reduced at the bedside. An NG tube was placed. Patient has been accepted at [facility], awaiting a bed assignment. At the time of being seen, patient admits to improvement in his pain. He stated that he has been passing gas. [facility] Medical History Cirrhosis Hemochromatosis Hernia History of blood clots Hyperlipidemia Hypertension Kidney disease Non-smoker Stroke/cerebrovascular accident Home Medications carvedilol 25 mg PO BID 10/26/19 [History Last Taken Unknown] diltiazem HCl 240 mg PO DAILY 10/26/19 [History Last Taken Unknown] aspirin 81 mg PO DAILY 08/22/21 [History Last Taken Unknown] atorvastatin 40 mg PO DAILY 08/22/21 [History Last Taken Unknown] cholecalciferol (vitamin D3) [Vitamin D3] 125 mcg PO DAILY 08/22/21 [History Last Taken Unknown] furosemide 20 mg PO DAILY 08/22/21 [History Last Taken Unknown] sirolimus [Rapamune] 0.5 mg PO DAILY 08/22/21 [History Last Taken Unknown] sodium bicarbonate 650 mg PO BID 08/22/21 [History Last Taken Unknown] vitamin B6-vitamin E-magnesium 1 tab PO DAILY 08/22/21 [History Last Taken Unknown] Allergy/AdvReac Type Severity Reaction Status Date / Time No Known Allergies Allergy Verified 08/21/21 19:33 no significant family history Surgical History History of appendectomy History of cholecystectomy History of liver transplant Social History (Updated 08/22/21 @ 13:[address] Sasha Jerez MD) household members: spouse Smoking Status: Never smoker alcohol intake: never substance use type: does not use ROS ROS Narrative Constitutional: Denies: Anorexia, Chills, Fever, Night Sweats, Weight Change, Malaise, Weakness, Fatigue. Eyes: Denies: Blurred vision, Cataracts, Conjunctivae Inflammation, Pain, Redness, Vision Change HEENT: Denies: Difficulty Hearing, Difficulty Swallowing, Head Aches, Hearing Changes, Sinus Congestion, Sinus Drainage Cardiovascular: Denies: Chest Pain, Orthopnea, Palpitations Respiratory: Denies: Cough, Shortness of breath at rest, Sputum production Gastrointestinal: Admits to abdominal Pain, Nausea, Vomiting Genitourinary: Denies: Dysuria Musculoskeletal: Denies: Joint Pain, Joint stiffness, Joint swelling, Joint Tenderness Skin: Denies: Rash, Wounds Neurological: Denies: Numbness, Tingling, Focal weakness Vital Signs Vital Signs Vital Signs: 08/21/21 19:31 08/22/21 01:55 08/22/21 03:53 Temperature 97 F L Temperature Source Temporal Pulse Rate 69 88 Respiratory Rate 16 20 H 16 Respiratory Pattern Blood Pressure 180/90 H 167/95 H Blood Pressure Mean 120 119 Pulse Ox 97 97 Oxygen Delivery Method Room Air Room Air Room Air 08/22/21 05:03 08/22/21 06:38 Temperature Temperature Source Pulse Rate 91 87 Respiratory Rate 18 20 H Respiratory Pattern Normal Blood Pressure Blood Pressure Mean Pulse Ox 99 Oxygen Delivery Method Room Air Weight Weight: 90.718 kg Body Mass Index (BMI) 31.3 Physical Exam Narrative Physical exam: General: Alert, Oriented x3, Cooperative, No apparent distress, Well developed HEENT: Atraumatic Oral: Moist Mucosa Neck: Supple Lungs: Clear to auscultation Cardiovascular: HS I+II, regular, no murmurs Abdomen: 2 large ventral hernias, bowel Sounds hypoactive, Soft, Non Tender Extremities: No edema Results Lab / Micro Data Result Diagrams: 08/22/21 01:42 08/22/21 01:42 Labs: Laboratory Results - last 24 hr 08/22/21 01:42: WBC 10.4, RBC 4.19 L, Hgb 11.3 L, Hct 35.4 L, MCV 84.5, MCH 27.0, MCHC 31.9 L, RDW Std Deviation 45.1 H, RDW Coeff of Ursula 14.7 H, Plt Count 187, MPV 9.0, Immature Gran % (Auto) 1.000 H, Neut % (Auto) 85.2 H, Lymph % (Auto) 8.2 L, [place] % (Auto) 4.7, Eos % (Auto) 0.4, Baso % (Auto) 0.5, Absolute Neuts (auto) 8.8 H, Absolute Lymphs (auto) 0.85, Nucleated RBC % 0 08/22/21 01:42: Sodium 139, Potassium 4.6, Chloride 102, Carbon Dioxide 26.0, Anion Gap 11, BUN 39 H, Creatinine 3.08 H, Estim Creat Clear Calc 19.08, Est GFR (MDRD) Af Amer 26 L, Est GFR (MDRD) Non-Af 21 L, BUN/Creatinine Ratio 12.7, Glucose 183 H, Calcium 10.5 H 08/22/21 01:42: Lactic Acid 1.8 08/22/21 01:42: PT 13.3, INR 1.1 Micro: Microbiology 08/22/21 05:39 Nasal Secretion SARS-CoV-2 Antigen (Rapid) - Final Radiology Impression Abdomen CT 08/22/21 01:25 IMPRESSION: Dilated stomach with dilated loops of proximal small bowel. There are 2 ventral wall abdominal hernias, one is larger than the other, the larger hernia contains loops of nondilated bowel, the smaller subjacent hernia contains loops of dilated bowel. This is the transition point. High-grade small bowel obstruction Atrophy of the pancreas with dilated fluid distended pancreatic duct with extensive calcifications compatible with chronic pancreatitis Electronically Signed: Cole Baptiste DO at 4:17 EST Tel , Service support , KUB X-Ray 08/22/21 04:35 IMPRESSION: NG tube is present the tip is at the diaphragm should be advanced 15 to 20 cm. Electronically Signed: Yodit Samuel MD at 7:05 EST Tel , Service support , KUB X-Ray 08/22/21 07:00 IMPRESSION: NG tube is present the tip is within the gastric lumen. Electronically Signed: Yodit Samuel MD at 7:13 EST Tel , Service support , Assessment & Plan Assessment/Plan (1) Small bowel obstruction: (2) Incarcerated epigastric hernia: PLAN: 1. Acute small bowel obstruction secondary to acute incarcerated hernia Status post reduction of hernia by general surgery in the outpatient Status post NG tube. General surgery consulted from the ED Discussed with general surgery; will put NG tube to low intermittent suction If no significant output, will remove NG tube and start patient on clear liquid diet Patient has been accepted to the [facility], will follow up on bed assignment 2. CKD, unclear recent baseline as patient gets his care from the [facility] Obtain records Continue sodium bicarbonate 3. History of liver transplant, continue on antirejection meds 4. Hypertension, uncontrolled, continue Cardizem and carvedilol Continue to monitor 5. DVT PPx- Heparin SC I discussed and explained in details the various types of CODE STATUS-full code, DNR CCA, DNR CC. Patient chose DNR CCA, no intubation. His is his power of sports attorney for healthcare. Time spent discussing CODE STATUS 16 minutes Charges/Coding Visit Charges Inpatient E&M: 72924 Init Hosp L3 Procedures Hospitalists Procedures: 52346 Advncd Care Plan 30 Min
--- NOTE | 2021-08-22 11:30 | CASEMGMT ---
PASCALE MCDONALD Assessment: RN CM to room to meet with patient for initial transition planning/care coordination assessment. PASCALE MCDONALD introduced self and role at [facility]. Pt voices understanding and consents to assessment at this time. Pt sitting up on ER cart, in no apparent distress at this time. Patient's Brittani at bedside. Pt is A/O at this time and answers all questions appropriately. Care providers, pharmacy, and demographics verified/updated at this time. PCP: Sanju Fiore Specialists: Betzy SOTO Liver Transplant surgeon Preferred Pharmacy: [facility] Insurance: MMO Medicare Prescription Benefit: yes Living Will/HPOA: Patient states he has a living will. HPOA is , Brittani. Patient and made aware these forms are not on file at [facility] and may be brought in to be scanned into record. LNOK: , Brittani Baldwin Living Arrangements: Lives with in two story house with 6 steps to enter the home without a handrail. Patient states independent with ADLs prior to hospitalization. Patient has multiple children that live close-by and check in frequently. Social: never smoker, denies ETOH or drug use Transportation: Self DME/HHC/SNF: Patient typically ambulates with walking stick outside the home. Patient also has walker, cane, raised toilet seat and walk-in shower available in home. Denies need for additional DME at this time. Previous HHC following liver transplant in 2012, unsure of HHC company. Denies previous SNF stays. Pt has no concerns with going home at time of discharge. CM to follow for any discharge planning/needs. Pt voices no concerns/needs at this time. Advised pt to ask for CM if any questions/concerns/needs arise. Voices understanding. PLAN: home
[2021-08-22 13:01] LABS: AST(SGOT) 25 U/L (15-37); Alanine Aminotransfer ALT/SGPT 39 U/L (16-61); Albumin, Serum 3.4 g/dL (3.2-5.0); Alkaline Phosphatase 123 U/L (45-117); Globulin 4.3 g/dL (2.2-4.2); Protein, Total 7.7 g/dL (6.4-8.2)
[2021-08-22] MEDS: Heparin Injection (Vial) 5,000 UNIT/ML VIAL 5000 UNIT SC ×2 (16:16→20:20)
[2021-08-22 16:33] LABS: Bacteria 0 SEEN /hpf (None Seen); Mucous, Urine 0 SEEN /hpf (<or=2+); Red Blood Cells-Urine 0 SEEN /hpf (0-5)
[2021-08-22 16:40] LABS: Color, Urine Yellow (Yellow); Glucose, Dipstick 100 mg/dl (Normal); Ketone-Dipstick 5 mg/dl (Negative); Leukocyte Esterase-Dipstick Negative /ul (Negative); Nitrite-Dipstick Negative (Negative); Occult Blood-Urine 25 /ul (Negative); Protein-Dipstick 500 mg/dl (Negative); Specific Gravity, Urine 1.025 (1.002-1.030); Urine Bilirubin Dipstick Negative (Negative); Urine Clarity Clear (Clear); Urine Urobilinogen Normal (Normal)
[2021-08-22 16:48] LABS: Squamous Epithelial Cells - UA 0-5 SEEN /hpf (0-5); White Blood Cells 0-5 SEEN /hpf (0-5)
[2021-08-22 16:49] LABS: Hyaline Cast 5-10 SEEN /lpf (0-5)
[2021-08-22 16:54] LABS: Fine Granular Cast- Urine 5-10 SEEN /lpf (0-5)
[2021-08-22] MEDS: SIROLIMUS 0.5 MG TABLET PO (17:41)
[2021-08-22] MEDS: Carvedilol 25 MG Tablet PO (20:20)
[2021-08-22] MEDS: Sodium Bicarbonate 650 MG Tablet PO (20:20)
[2021-08-22] MEDS: Atorvastatin Calcium 40 MG Tablet PO (20:20)
[2021-08-23] MEDS: 0.9% Normal Saline 1,000 ML 125 ML IV (02:51)
[2021-08-23 05:22] VITALS: BP 149/82; PULSE 97; RESP 16; TEMP 36.6; O2SAT 97
[2021-08-23] MEDS: Heparin Injection (Vial) 5,000 UNIT/ML VIAL 5000 UNIT SC (05:31)
[2021-08-23 06:51] LABS: Absolute Lymphocyte Count 0.83 X10^3/uL (0.83-4.51); Absolute Neutrophil Count 3.7 X10^3/uL (2.0-7.7); Basophil# 0.02 X10^3/uL; Basophil% 0.4 % (0-1); Eosinophil# 0.15 X10^3/uL; Eosinophils% 2.9 % (0-5); Hematocrit 28.9 % (40-54); Lymphocyte # 0.83 X10^3/ul (0.83-4.51); Mean Corp Hgb Conc 31.1 g/dL (32-36); Mean Corpuscular Hgb 26.9 pg (27.0-32.0); Mean Corpuscular Volume 86.3 fL (80-94); Mean Platelet Vol. 8.7 fl (6.2-12.0); Monocyte# 0.52 X10^3/uL; NRBC Flagged by Analyzer 0 % (0-5); Neutrophil # 3.65 X10^3/uL (2.7-7.7); Neutrophil % 70.1 % (47-70); Platelet Count 122 K/mm3 (150-450); RBC Distribution Width CV 14.6 % (11.6-14.6); RBC Distribution Width SD 46.5 fl (35.1-43.9); Red Blood Count 3.35 M/mm3 (4.6-6.2); White Blood Count 5.2 K/mm3 (4.4-11.0)
[2021-08-23 07:18] LABS: ALB/GLOB Ratio 0.8 RATIO (0.9-2.4); AST(SGOT) 23 U/L (15-37); Alanine Aminotransfer ALT/SGPT 30 U/L (16-61); Albumin, Serum 2.5 g/dL (3.2-5.0); Alkaline Phosphatase 88 U/L (45-117); Anion Gap 8 (5-15); BUN 52 mg/dL (7-18); BUN/Creat Ratio 15.6 RATIO (10-20); Calcium,Total 8.7 mg/dL (8.5-10.1); Chloride 109 mmol/L (98-107); Creatinine, Serum 3.33 mg/dL (0.70-1.30); EST Glomerular Filtration Rate 19 mL/min (>60); Est Glom Filt Rate - Afr Amer 23 mL/min (>60); Estimated Creatinine Clearance 17.64 ml/min; Globulin 3.2 g/dL (2.2-4.2); Glucose 133 mg/dL (74-106); Protein, Total 5.7 g/dL (6.4-8.2); Sodium Level 140 mmol/L (136-145)
--- NOTE | 2021-08-23 08:02 | EX.PCM.CON.S ---
Assessment & Plan Assessment/Plan (1) Small bowel obstruction: PLAN: The patient presented to the emergency room yesterday morning with abdominal pain and nausea vomiting and CT scan showed a small hernia containing small bowel adjacent to the very large abdominal hernia the patient has. I was able to reduce the hernia in the emergency room and recommended transfer to tertiary care center with a transplant team due to his transplant medications and history of liver transplant. Transfer was unavailable due to Covid. During the day yesterday his abdominal pain resolved and he started having flatus and no nausea vomiting and tolerated clears. I still maintain that I am unable to perform his surgery here although this appears the patient no longer has an obstruction and today during exam patient did not have incarcerated hernia. I will advance the patient to a regular diet and the patient will possibly go home today and follow-up with the surgeon at the [facility] as an outpatient versus transfer if a bed becomes available. I did advise him of the possibility of recurrence of the hernia and recurring small bowel obstruction until this is repaired. Reece Jean-Baptiste MD Pager: [facility] [address] [place] [address], [address] [place] [address] Office: HPI Consult Data Date of Consult: 08/23/21 HPI Narrative HPI Narrative: SELVIN SANON, is a 76 M who presents with nausea and vomiting. Patient started having abdominal pain and nausea and vomiting before presenting to the emergency room. Patient reports abdominal pain and his last flatus was the day prior. Patient does have history of large ventral hernia and liver transplant. [facility], [facility] Medical History Cirrhosis Hemochromatosis Hernia History of blood clots Hyperlipidemia Hypertension Kidney disease Non-smoker Stroke/cerebrovascular accident Home Medications carvedilol 25 mg PO BID 10/26/19 [History Last Taken Unknown] diltiazem HCl 240 mg PO DAILY 10/26/19 [History Last Taken Unknown] aspirin 81 mg PO DAILY 08/22/21 [History Last Taken Unknown] atorvastatin 40 mg PO DAILY 08/22/21 [History Last Taken Unknown] cholecalciferol (vitamin D3) [Vitamin D3] 125 mcg PO DAILY 08/22/21 [History Last Taken Unknown] furosemide 20 mg PO DAILY 08/22/21 [History Last Taken Unknown] sirolimus [Rapamune] 0.5 mg PO DAILY 08/22/21 [History Last Taken Unknown] sodium bicarbonate 650 mg PO BID 08/22/21 [History Last Taken Unknown] vitamin B6-vitamin E-magnesium 1 tab PO DAILY 08/22/21 [History Last Taken Unknown] Allergy/AdvReac Type Severity Reaction Status Date / Time No Known Allergies Allergy Verified 08/21/21 19:33 Family History no significant family his Surgical History History of appendectomy History of cholecystectomy History of liver transplant Social History (Updated 08/22/21 @ 13:[address] Sasha Jerez MD) household members: spouse Smoking Status: Never smoker alcohol intake: never substance use type: does not use ROS Constitutional Constitutional: Reports anorexia; Denies fatigue or fever(s) Eyes Eyes: Denies blurry vision ENT HEENT: Denies abnormal hearing Cardiovascular Cardiovascular: Denies chest pain Respiratory/Chest Respiratory/Chest: Denies cough or dyspnea Gastrointestinal Gastrointestinal: Reports abdominal pain, nausea and vomiting Genitourinary Genitourinary: Denies change in urinary stream Musculoskeletal Musculoskeletal: Denies abnormal gait Integumentary Integumentary: Denies jaundice Neurologic Neurologic: Denies abnormal gait Physical Exam Const alert and oriented x3 HEENT normocephalic Neck full ROM Resp normal respiratory effort Cardio Rate: regular rate GI soft to palpation Palpation: tender and hernia Lab / Micro Data Result Diagrams: 08/23/21 06:39 08/23/21 06:39 Labs: Laboratory Results - last 24 hr 08/22/21 01:42: Total Bilirubin 0.70, Direct Bilirubin 0.20, AST 25, ALT 39, Alkaline Phosphatase 123 H, Total Protein 7.7, Albumin 3.4, Globulin 4.3 H 08/22/21 10:00: Urine Color Yellow, Urine Clarity Clear, Urine pH 5.0, Ur Specific Staples 1.025, Urine Protein 500 H, Urine Glucose (UA) 100 H, Urine Ketones 5 H, Urine Occult Blood 25 H, Urine Nitrite Negative, Urine Bilirubin Negative, Urine Urobilinogen Normal, Ur Leukocyte Esterase Negative, Urine RBC 0 SEEN, Urine WBC 0-5 SEEN, Ur Squamous Epith Cells 0-5 SEEN, Urine Bacteria 0 SEEN, Hyaline Casts 5-10 SEEN, Fine Granular Casts 5-10 SEEN, Urine Mucus 0 SEEN 08/23/21 06:39: WBC 5.2, RBC 3.35 L, Hgb 9.0 L, Hct 28.9 L, MCV 86.3, MCH 26.9 L, MCHC 31.1 L, RDW Std Deviation 46.5 H, RDW Coeff of Ursula 14.6, Plt Count 122 L, MPV 8.7, Immature Gran % (Auto) 0.600, Neut % (Auto) 70.1 H, Lymph % (Auto) 16.0 L, [place] % (Auto) 10.0, Eos % (Auto) 2.9, Baso % (Auto) 0.4, Absolute Neuts (auto) 3.7, Absolute Lymphs (auto) 0.83, Nucleated RBC % 0 08/23/21 06:39: Sodium 140, Potassium 4.0, Chloride 109 H, Carbon Dioxide 23.0, Anion Gap 8, BUN 52 H, Creatinine 3.33 H, Estim Creat Clear Calc 17.64, Est GFR (MDRD) Af Amer 23 L, Est GFR (MDRD) Non-Af 19 L, BUN/Creatinine Ratio 15.6, Glucose 133 H, Calcium 8.7, Total Bilirubin 0.70, AST 23, ALT 30, Alkaline Phosphatase 88, Total Protein 5.7 L, Albumin 2.5 L, Globulin 3.2, Albumin/Globulin Ratio 0.8 L Micro: Microbiology 08/22/21 05:39 Nasal Secretion SARS-CoV-2 Antigen (Rapid) - Final
[2021-08-23 08:45] VITALS: BP 142/78; PULSE 98; RESP 16; TEMP 36.6; O2SAT 98
[2021-08-23] MEDS: Aspirin 81 MG TAB.CHEW PO (08:47)
[2021-08-23] MEDS: Sodium Bicarbonate 650 MG Tablet PO (08:55)
[2021-08-23] MEDS: SIROLIMUS 0.5 MG TABLET PO (08:55)
[2021-08-23] MEDS: Carvedilol 25 MG Tablet PO (08:55)
[2021-08-23] MEDS: dilTIAZem CD 240 MG Capsule PO (08:55)
[2021-08-23] MEDS: Cholecalciferol (VIT D3) 25 MCG TABLET (1,000 UNITS) 125 MCG PO (08:55)
[2021-08-23 10:41] VITALS: BP 136/76; PULSE 95; RESP 16; TEMP 37.1; O2SAT 98
--- NOTE | 2021-08-23 10:54 | DS.PCM_ITS ---
Providers Date of Admission: 08/22/21 Date of Discharge: 08/23/21 Primary Care Physician: Dr. Sanju Fiore MD Consultations 08/22/21 13:28 Consult: General Surgery Routine Consulting Provider: Reece Jean-Baptiste Reason for Consult: SBO/hernia EMERGENT Consult: No MD Notified: Yes Date Notified: 08/22/21 Time Notified: 13:28 Method of Notification: Verbal Reason For Visit: SBO/HERNIA Diagnosis Discharge Diagnosis (1) Small bowel obstruction: Status: Acute Code(s): K56.609 - Unspecified intestinal obstruction, unspecified as to partial versus complete obstruction (2) Incarcerated epigastric hernia: Status: Acute Code(s): K43.6 - Other and unspecified ventral hernia with obstruction, without gangrene Medications at Discharge Home Medications carvedilol 25 mg PO BID 10/26/19 diltiazem HCl 240 mg PO DAILY 10/26/19 aspirin 81 mg PO DAILY 08/22/21 atorvastatin 40 mg PO DAILY 08/22/21 cholecalciferol (vitamin D3) [Vitamin D3] 125 mcg PO DAILY 08/22/21 furosemide 20 mg PO DAILY 08/22/21 sirolimus [Rapamune] 0.5 mg PO DAILY 08/22/21 sodium bicarbonate 650 mg PO BID 08/22/21 vitamin B6-vitamin E-magnesium 1 tab PO DAILY 08/22/21 Hospital Course Operations None Procedures None Summary of Care Provided Minutes Spent on Discharge: 50 Hospital Course: 76-year-old with past medical history of liver transplant, on antirejection medication, history of ventral hernia, CKD who presented with abdominal distention. Patient's work-up in the ED were significant for dilated stomach with dilated loops of proximal small bowel and a high-grade small bowel obstruction. General surgery was consulted in the ED and manual reduction of his ventral hernia was done. Patient was recommended to follow-up with [facility]. He was accepted but did not have a bed. He was admitted pending bed transfer. Patient was started on a clear liquid diet which he tolerated. His diet was then advanced. Patient was able to tolerate a regular diet at time of discharge. No nausea or vomiting. No acute event. Discussed with general surgery, patient was strongly recommended to follow-up with the [facility] to have his hernia evaluated. Physical Exam Narrative Physical exam: General: Alert, Oriented x3, Cooperative, No apparent distress, Well developed HEENT: Atraumatic Oral: Moist Mucosa Neck: Supple Lungs: Clear to auscultation Cardiovascular: HS I+II, regular, no murmurs Abdomen: 2 large ventral hernias, bowel Sounds normal, Soft, Non Tender Extremities: No edema Weight / BMI Weight Weight: 87.3 kg Body Mass Index (BMI) 30.1 ABG / Lab / Microbiology Data Result Diagrams: 08/23/21 06:39 08/23/21 06:39 Laboratory: Laboratory Results - last 24 hr 08/22/21 01:42: Total Bilirubin 0.70, Direct Bilirubin 0.20, AST 25, ALT 39, Alkaline Phosphatase 123 H, Total Protein 7.7, Albumin 3.4, Globulin 4.3 H 08/22/21 10:00: Urine Color Yellow, Urine Clarity Clear, Urine pH 5.0, Ur Specific [place] 1.025, Urine Protein 500 H, Urine Glucose (UA) 100 H, Urine Ketones 5 H, Urine Occult Blood 25 H, Urine Nitrite Negative, Urine Bilirubin Negative, Urine Urobilinogen Normal, Ur Leukocyte Esterase Negative, Urine RBC 0 SEEN, Urine WBC 0-5 SEEN, Ur Squamous Epith Cells 0-5 SEEN, Urine Bacteria 0 SEEN, Hyaline Casts 5-10 SEEN, Fine Granular Casts 5-10 SEEN, Urine Mucus 0 SEEN 08/23/21 06:39: WBC 5.2, RBC 3.35 L, Hgb 9.0 L, Hct 28.9 L, MCV 86.3, MCH 26.9 L , MCHC 31.1 L, RDW Std Deviation 46.5 H, RDW Coeff of Ursula 14.6, Plt Count 122 L, MPV 8.7, Immature Gran % (Auto) 0.600, Neut % (Auto) 70.1 H, Lymph % (Auto) 16.0 L, [place] % (Auto) 10.0, Eos % (Auto) 2.9, Baso % (Auto) 0.4, Absolute Neuts (auto) 3.7, Absolute Lymphs (auto) 0.83, Nucleated RBC % 0 08/23/21 06:39: Sodium 140, Potassium 4.0, Chloride 109 H, Carbon Dioxide 23.0, Anion Gap 8, BUN 52 H, Creatinine 3.33 H, Estim Creat Clear Calc 17.64, Est GFR (MDRD) Af Amer 23 L, Est GFR (MDRD) Non-Af 19 L, BUN/Creatinine Ratio 15.6, Glucose 133 H, Calcium 8.7, Total Bilirubin 0.70, AST 23, ALT 30, Alkaline Phosphatase 88, Total Protein 5.7 L, Albumin 2.5 L, Globulin 3.2, Albumin/Globulin Ratio 0.8 L Microbiology: Microbiology 08/22/21 05:39 Nasal Secretion SARS-CoV-2 Antigen (Rapid) - Final D/C Instructions Discharge Diet: Low fat / Low cholesterol, 2000 Calorie Control Diet and 2000 mg Sodium Diet Weight Bearing Status: Weight bearing as tolerated Meaningful Use Info Meaningful Use Diagnoses (Choose all that apply): None applicable Discharge Plan Admission Admit Date/Time: 08/22/21 10:20 Primary Reason for Your Visit: Acute intestinal obstruction, hernia Attending Provider: Sasha Jerez Primary Care Provider: Sanju Fiore Consulting Providers: Reece Jean-Baptiste Instructions Additional Instructions / Restrictions: Follow-up with your general surgeon and your other physicians in the [facility]. Continue to keep yourself hydrated. Discharge Orders/Prescriptions Prescriptions: Continued carvedilol 25 MG tablet 25 mg PO BID RF: 0 diltiazem HCl 60 MG tablet 240 mg PO DAILY RF: 0 atorvastatin 40 mg tablet 40 mg PO DAILY RF: 0 sodium bicarbonate 650 mg tablet 650 mg PO BID RF: 0 aspirin 81 mg Tablet 81 mg PO DAILY RF: 0 furosemide 20 mg tablet 20 mg PO DAILY RF: 0 vitamin B6-vitamin E-magnesium Tablet 1 tab PO DAILY RF: 0 cholecalciferol (vitamin D3) [Vitamin D3] 125 mcg (5,000 unit) Tablet 125 mcg PO DAILY RF: 0 sirolimus [Rapamune] 0.5 mg Tablet 0.5 mg PO DAILY RF: 0 Referrals / Follow Up: Sanju Fiore MD [Primary Care Provider] - Within 2 Weeks Disposition Disposition (needs filled in before D/C Order can be placed): Home, Self Care Charges/Coding Visit Charges Inpatient E&M: 89558 Disch Hosp
[2021-08-23 12:25] VITALS: BP 136/76; PULSE 95; RESP 16; TEMP 37.1; O2SAT 98
--- NOTE | 2021-08-25 01:50 | ED.RN ---
[facility] called stating they have a bed for the patient at this time advise them that patient has been discharged home and no longer needs a bed
== END 2021-08-23 12:25 | disposition home or self-care (01) | DRG 394 ==
LOC: ED 08-22 07:48 → MS2 08-22 10:48
PROVIDERS: Admitting Provider Internal Medicine; Emergency Provider Emergency Medicine; PCP Family Medicine; Visit Provider Internal Medicine
DX: K43.6 Other and unspecified ventral hernia with obstruction, without gangrene (principal); Z94.4 Liver transplant status; K56.609 Unspecified intestinal obstruction, unspecified as to partial versus complete obstruction; E78.5 Hyperlipidemia, unspecified; I12.9 Hypertensive chronic kidney disease with stage 1 through stage 4 chronic kidney disease, or unspecified chronic kidney disease; N18.9 Chronic kidney disease, unspecified; Z66 Do not resuscitate; Z86.73 Personal history of transient ischemic attack (TIA), and cerebral infarction without residual deficits; Z86.718 Personal history of other venous thrombosis and embolism; Z90.49 Acquired absence of other specified parts of digestive tract
CPT/HCPCS: 36415; 74018; 74176; 80048; 80053; 80076; 81001; 83605; 85025; 85610; 87426; 94640; 96374; 96375; 96376; 97802; 99251; 99285; J7030; G0463; J2405

== ENCOUNTER 2023-04-26 12:28 | Inpatient (IN) | payer MEDICARE, SELFPAY ==
[2023-04-26] VITALS (11 sets, daily range): BP systolic 136–186; BP diastolic 60–76; PULSE 53–66; RESP 12–20; TEMP 36.1–36.6; O2SAT 96–100; BMI 35.2; BMI 26.1
--- NOTE | 2023-04-26 13:13 | EDS_ITS ---
HPI History of Present Illness Chief Complaint: Shortness of Breath Informant: patient Onset/Context/Timing Onset: Days Context: gradual Timing: Intermittent Quality: Positive for Dyspnea on exertion Worsened by: Exertion Relieved by: Rest Associated Symptoms Negative for cough, rhinorrhea, post nasal drip, ear pain, fever, sore throat, chills or sweats Chest Pain: Positive for None Narrative Narrative: Patient presents with shortness of breath that has been getting progressively worse over the past few days. Patient states his breathing is worse with exertion. Patient states it is better with rest. Patient denies any cough. Patient denies any chest pain. Patient denies any fevers or chills. Patient states he has some pain in his right upper back. Patient admits to some swelling of his right lower extremity. Patient states he has a history of DVT in his right lower extremity but only takes aspirin at this time. Patient is not on any anticoagulants. PE Risk Factors: Positive for Prior DVT or PE; Negative for Cancer, Recent surgery or Recent travel [facility] Medical History (Updated 04/26/23 @ 16:[address] Bo Lantigua, ) Cirrhosis Congestive heart failure Coronary artery disease Diabetes Hemochromatosis Hernia History of blood clots Hyperlipidemia Hypertension Kidney disease Non-smoker Stroke/cerebrovascular accident Home Medications carvedilol 25 mg tablet 25 mg PO BID 10/26/19 [History Last Taken Unknown] diltiazem HCl 60 mg tablet 240 mg PO DAILY 10/26/19 [History Last Taken Unknown] aspirin 81 mg tablet 81 mg PO DAILY 08/22/21 [History Last Taken Unknown] atorvastatin 40 mg tablet 40 mg PO DAILY 08/22/21 [History Last Taken Unknown] cholecalciferol (vitamin D3) 125 mcg (5,000 unit) tablet (Vitamin D3) 125 mcg PO DAILY 08/22/21 [History Last Taken Unknown] furosemide 20 mg tablet 20 mg PO DAILY 08/22/21 [History Last Taken Unknown] sirolimus 0.5 mg tablet (Rapamune) 0.5 mg PO DAILY 08/22/21 [History Last Taken Unknown] sodium bicarbonate 650 mg tablet 650 mg PO BID 08/22/21 [History Last Taken Unknown] vitamin B6-vitamin E-magnesium tablet 1 tab PO DAILY 08/22/21 [History Last Taken Unknown] Allergy/AdvReac Type Severity Reaction Status Date / Time No Known Allergies Allergy Verified 04/26/23 12:34 Surgical History (Updated 04/26/23 @ 13:[address] Bo Lantigua DO) History of appendectomy History of cholecystectomy History of herniorrhaphy History of liver transplant Social History household members: spouse Smoking Status: Never smoker alcohol intake: never substance use type: does not use ROS ROS ED Constitutional Constitutional ED: Denies chills or fever(s) Eyes Eyes: Denies blurry vision or change in vision ENT ENT ED: Reports rhinorrhea; Denies sore throat Cardiovascular Cardiovascular: Denies chest pain or palpitations Respiratory/Chest Respiratory/Chest: Reports dyspnea; Denies cough Gastrointestinal Gastrointestinal: Denies nausea or vomiting Genitourinary Genitourinary ED: Denies dysuria or hematuria Musculoskeletal Musculoskeletal: Reports back pain; Denies neck pain Integumentary Denies abscess or rash Neurologic Neurologic: Denies headache(s) or weakness Allergic/Immunologic Allergic/Immunologic ED: Denies mouth swelling or urticaria EXAM Physical Exam Const Vital Signs: 04/26/23 12:30 04/26/23 12:44 04/26/23 12:44 Temperature 96.9 F L 98 F Temperature Source Temporal Oral Pulse Rate 55 L 57 L Respiratory Rate 18 19 H Respiratory Effort Respiratory Depth Respiratory Pattern Normal Blood Pressure 186/71 H 186/71 H Blood Pressure Mean 109 109 Pulse Ox 97 99 Oxygen Delivery Method Room Air Room Air 04/26/23 12:44 04/26/23 13:46 04/26/23 14:37 Temperature 98 F Temperature Source Oral Pulse Rate 53 L 53 L Respiratory Rate 18 Respiratory Effort Short of Breath Respiratory Depth Shallow Respiratory Pattern Normal Blood Pressure 160/73 H 167/66 H Blood Pressure Mean 102 Pulse Ox 98 Oxygen Delivery Method Room Air Room Air 04/26/23 15:00 Temperature Temperature Source Pulse Rate 54 L Respiratory Rate 17 Respiratory Effort Respiratory Depth Respiratory Pattern Blood Pressure 147/68 H Blood Pressure Mean 94 Pulse Ox 100 Oxygen Delivery Method Room Air Positive well nourished, well developed and obese General Appearance ED: well developed and NAD Nutritional Appearance: obese HEENT Reports moist mucous membranes Neck supple and no JVD Resp normal respiratory effort Auscultation: diminished lung sounds Cardio regular rate and regular rhythm GI non-tender and non-distended Palpation: soft Neuro oriented x3, CN's II-XII intact bilaterally and no sensory deficits noted [place] Coma Scale: document GCS findings Spontaneous Obeys Commands Oriented 15 Sensorium / Orientation: alert Speech: speech normal Motor Exam: strength 5/5 throughout Psych mental status grossly normal MDM MDM MDM Narrative Medical decision making narrative: Differential diagnosis includes congestive heart failure, pulmonary embolism, DVT, cardiac dysrhythmia, cardiac ischemia, electrolyte abnormality, and chronic kidney disease. EKG will be obtained to assess for cardiac dysrhythmia and cardiac ischemia. Chest x-ray will be obtained to assess for pneumonia and congestive heart failure. CBC will be obtained to assess for leukocytosis and anemia. Comprehensive metabolic profile will be obtained to assess for electrolyte abnormality, hepatic function, and renal function. D-dimer will be obtained to assess for pulmonary embolism. Venous duplex of the right lower extremity will be obtained to assess for DVT. BNP will be obtained to assess for congestive heart failure. High-sensitivity troponin will be obtained to assess for cardiac ischemia. 2-hour repeat high-sensitivity troponin will be obtained to assess for ongoing cardiac ischemia. History & Record Review Additional record(s) reviewed:: Prior labs Lab Data Attestation: I reviewed the patient's lab results. Lab results narrative: CBC was reviewed. There is a stable anemia with a hemoglobin of 9.4 and hematocrit of 30.9. Platelets were slightly low at 125. Comprehensive metabolic profile was reviewed. BUN was 61 and creatinine was 3.8 this is consistent with prior results. The remainder was within normal limits. Initial high-sensitivity troponin was reviewed and was normal at 25. PT with INR and PTT were reviewed and were within normal limits. D-dimer was reviewed and was slightly elevated at 0.95. BNP was reviewed and was elevated at 734.7. 2-hour repeat high-sensitivity troponin was reviewed and was normal at 25. Labs: Laboratory Results - last 24 hr 04/26/23 04/26/23 13:02 15:45 WBC 9.3 RBC 3.35 L Hgb 9.4 L Hct 30.9 L MCV 92.2 MCH 28.1 MCHC 30.4 L RDW Std Deviation 52.4 H RDW Coeff of Ursula 15.8 H Plt Count 125 L MPV 9.4 Immature Gran % (Auto) 3.300 H Neut % (Auto) 69.5 Lymph % (Auto) 13.7 L [place] % (Auto) 11.7 H Eos % (Auto) 1.4 Baso % (Auto) 0.4 Absolute Neuts (auto) 6.5 Absolute Lymphs (auto) 1.27 Nucleated RBC % 0 PT 13.0 INR 1.0 APTT 24.0 L D-Dimer Quant (PE/DVT) 0.95 H* Sodium 137 Potassium 4.7 Chloride 108 H Carbon Dioxide 24.0 Anion Gap 5 BUN 61 H Creatinine 3.80 H Estim Creat Clear Calc 14.98 Est GFR (MDRD) Af Amer 20 L Est GFR (MDRD) Non-Af 17 L BUN/Creatinine Ratio 16.1 Glucose 134 H Calcium 9.1 Total Bilirubin 0.50 AST 18 ALT 56 Alkaline Phosphatase 71 Troponin I High Sens 25 25 B-Natriuretic Peptide 734.7 H Total Protein 6.9 Albumin 3.4 Globulin 3.5 Albumin/Globulin Ratio 1.0 Radiography Chest X-Ray - ED: 1 View, Read by ED Physician, Read by Radiologist and Left Effusion Diagnostic Testing: Clinical Impression(s) from Imaging Studies Chest X-Ray 04/26/23 13:25 IMPRESSION: Stable blunting of the left costophrenic angle with some mild increased markings at the left lung base suggestive of scarring. Electronically Signed: Burt Higgins MD at 13:45 EDT , Portable 1 view chest x-ray was obtained. On my independent interpretation, lung de santiago show mild pulmonary vascular congestion. There is also some blunting of the left costophrenic angle. There is normal cardiac silhouette. Bony thorax is normal. Radiologist also interpreted the x-ray and agrees. Venous duplex of the right lower extremity was obtained. There is no evidence of DVT. EKG Initial EKG: Attestation: I personally reviewed and interpreted this EKG as follows: Interpretation: Sinus Bradycardia (55) and Non-Specific ST Changes Comments: EKG was obtained. On my independent interpretation, it showed a sinus bradycardia with a rate of 55. AL interval, QRS interval, and QTc intervals were all normal. [place] was normal. There are nonspecific ST-T wave changes. Prior EKG tracings: available for review Prior: Unchanged (10/26/2019) Management Discussion w/another healthcare provider: Hospitalist (Dr. Trivedi) Treatment and Re-Evaluation :: Patient was advised of his findings. Patient was given a dose of Lasix here. Patient was given nitroglycerin paste. Given the patient's symptoms of dyspnea with exertion, I feel patient would benefit from admission to the hospital. Case will be discussed with the hospitalist. Case was discussed with the hospitalist. He will admit the patient to his service. Patient and family understood and were agreeable with the plan. All questions were answered. Discharge Plan Triage Chief Complaint: Shortness of Breath Other Complaint: Edema ED Provider: Bo Lantigua Dx/Rx/DC Orders Clinical Impression: Dyspnea on exertion, Congestive heart failure Prescriptions: No Action carvedilol 25 MG tablet 25 mg PO BID diltiazem HCl 60 MG tablet 240 mg PO DAILY atorvastatin 40 mg tablet 40 mg PO DAILY Patient Comments: TAKE 1 TABLET BY MOUTH DAILY AT BEDTIME sodium bicarbonate 650 mg tablet 650 mg PO BID Patient Comments: TAKE 1 TABLET BY MOUTH TWICE DAILY DIRECTED aspirin 81 mg Tablet 81 mg PO DAILY furosemide 20 mg tablet 20 mg PO DAILY Patient Comments: TAKE 1 TABLET BY MOUTH EVERY DAY vitamin B6-vitamin E-magnesium Tablet 1 tab PO DAILY cholecalciferol (vitamin D3) [Vitamin D3] 125 mcg (5,000 unit) Tablet 125 mcg PO DAILY sirolimus [Rapamune] 0.5 mg Tablet 0.5 mg PO DAILY Primary Care Provider: Sanju Fiore Referrals: Sanju Fiore MD [Primary Care Provider] - Disposition Disposition: Acute Care Hospital [facility]
--- NOTE | 2023-04-26 13:23 | EKG12_ITS ---
Test Reason : SOB Blood Pressure : / mmHG Vent. Rate : 055 BPM Atrial Rate : 055 BPM P-R Int : 260 ms QRS Dur : 094 ms QT Int : 494 ms P-R-T Axes : 019 006 107 degrees QTc Int : 472 ms Sinus bradycardia with 1st degree A-V block Possible Inferior infarct , age undetermined ST & T wave abnormality, consider lateral ischemia Abnormal ECG Confirmed by ZEKE DELGADO MD ([id number]), primer expeditor and drier TALISHA MELCHOR ([id number]) on 05/02/2023 2:16:02 PM Referred By: LUCÍA/PAT Confirmed By:ZEKE DELGADO MD
--- NOTE | 2023-04-26 13:24 | VDLE_ITS ---
Reason For Study: Right leg swelling RIGHT GSV is normal. CFV is compressible, spontaneous, phasic, competent and demonstrates normal augmentation. FV is compressible, spontaneous, phasic, competent and demonstrates normal augmentation. POP V is compressible, spontaneous, phasic, competent and demonstrates normal augmentation. T/P Trunk is compressible. PTV is compressible. RT PerV is compressible. Procedure This is a venous duplex using B-mode, color flow and spectral Doppler. Exam performed portable in ED. A preliminary report was called and/or faxed to ED. VL/Venous Duplex US, Unilateral Interpretation Summary There is no evidence of right lower extremity deep vein thrombosis. Right great saphenous vein appears patent and compressible segmentally. Ordering Physician: Bo Lantigua Referring Physician: Sanju Fiore Performed By: Clara Patel RVT
--- NOTE | 2023-04-26 13:25 | RAD_ITS ---
STUDY: X-RAY CHEST REASON FOR EXAM: Male, 78 years old. Dyspnea TECHNIQUE: Single AP portable view of the chest. COMPARISON: Comparison is made with prior study dated October 26, 2019. FINDINGS: EKG electrodes are seen. Stable blunting of the left costophrenic angle with mild increased markings at the left lung base. There is moderate cardiac enlargement. Normal mediastinum and christina. Normal visualized pulmonary arteries. There is atherosclerotic calcification of the aortic arch with tortuosity. There are diffuse degenerative changes of the visualized thoracic spine. Normal visualized ribs, clavicles, and shoulders. There is no demonstrated abnormality of the visualized soft tissue structures of the upper abdomen. RAD/Chest 1 View (Portable) IMPRESSION: Stable blunting of the left costophrenic angle with some mild increased markings at the left lung base suggestive of scarring. Electronically Signed: Burt Higgins MD at 13:45 EDT ,
[2023-04-26 13:47] LABS: Absolute Lymphocyte Count 1.27 X10^3/uL (0.83-4.51); Absolute Neutrophil Count 6.5 X10^3/uL (2.0-7.7); Basophil# 0.04 X10^3/uL; Basophil% 0.4 % (0-1); Eosinophil# 0.13 X10^3/uL; Eosinophils% 1.4 % (0-5); Hematocrit 30.9 % (40-54); Hemoglobin 9.4 g/dL (13.0-16.5); Lymphocyte # 1.27 X10^3/ul (0.83-4.51); Lymphocyte % 13.7 % (19-41); Mean Corp Hgb Conc 30.4 g/dL (32-36); Mean Corpuscular Hgb 28.1 pg (27.0-32.0); Mean Corpuscular Volume 92.2 fL (80-94); Mean Platelet Vol. 9.4 fl (6.2-12.0); Monocyte# 1.09 X10^3/uL; Monocyte% 11.7 % (0-10); NRBC Flagged by Analyzer 0 % (0-5); Neutrophil # 6.46 X10^3/uL (2.7-7.7); Neutrophil % 69.5 % (47-70); Platelet Count 125 K/mm3 (150-450); RBC Distribution Width CV 15.8 % (11.6-14.6); RBC Distribution Width SD 52.4 fl (35.1-43.9); Red Blood Count 3.35 M/mm3 (4.6-6.2); White Blood Count 9.3 K/mm3 (4.4-11.0)
[2023-04-26 14:02] LABS: AST(SGOT) 18 U/L (15-37); Alanine Aminotransfer ALT/SGPT 56 U/L (16-61); Albumin, Serum 3.4 g/dL (3.2-5.0); Alkaline Phosphatase 71 U/L (45-117); Anion Gap 5 (5-15); BUN 61 mg/dL (7-18); BUN/Creat Ratio 16.1 RATIO (10-20); Calcium,Total 9.1 mg/dL (8.5-10.1); Chloride 108 mmol/L (98-107); EST Glomerular Filtration Rate 17 mL/min (>60); Est Glom Filt Rate - Afr Amer 20 mL/min (>60); Estimated Creatinine Clearance 14.98 ml/min; Globulin 3.5 g/dL (2.2-4.2); Glucose 134 mg/dL (74-106); Potassium 4.7 mmol/L (3.5-5.1); Protein, Total 6.9 g/dL (6.4-8.2); Sodium Level 137 mmol/L (136-145); Troponin-I HS (w/2H Reflex) 25 pg/mL (3.0-78.0)
[2023-04-26 14:06] LABS: D-Dimer Quantitative (DVT/PE) 0.95 FEU/ug/m (0.27-0.49)
[2023-04-26 14:14] LABS: BNP,B-Type NATRIURETIC PEPTIDE 734.7 pg/mL (0-100)
[2023-04-26] MEDS: Nitroglycerin Oint 1 INCH PACKET TD (14:37)
[2023-04-26] MEDS: Furosemide 40 MG/4 ML Vial IV ×2 (14:37→21:09)
[2023-04-26 15:42] LABS: Reflex Troponin-HS? (from REC) Y
[2023-04-26 16:14] LABS: Troponin-I HS 25 pg/mL (3.0-78.0)
--- NOTE | 2023-04-26 16:39 | PCM.HP.STD ---
HPI - General General Date of Admission: 04/26/23 Date of Service: 05/22/23 Chief Complaint: Shortness of breath HPI Narrative SELVIN SANON, is a 78 M with past medical history is known for liver transplant secondary to alcoholic cirrhosis of the liver, chronic kidney disease stage IV/V who presented with shortness of breath. Per patient symptoms have been ongoing for almost a week now. Patient did notice increasing shortness of breath with minimal activity. Also did notice swelling involving both lower extremities more pronounced on the right. Presented to the emergency department as a result of worsening symptoms. Imaging studies obtained in the ED did reveal pulmonary vascular congestion. Patient was also found to have elevated BNP. An assessment of acute congestive heart failure made started on furosemide admitted to a monitored bed for further management [facility] Medical History (Updated 04/26/23 @ 16:[address] Bo Lantigua DO) Cirrhosis Congestive heart failure Coronary artery disease Diabetes Hemochromatosis Hernia History of blood clots Hyperlipidemia Hypertension Kidney disease Non-smoker Stroke/cerebrovascular accident Home Medications carvedilol 25 mg tablet 25 mg PO BID 10/26/19 [History Last Taken Unknown] diltiazem HCl 60 mg tablet 240 mg PO DAILY 10/26/19 [History Last Taken Unknown] aspirin 81 mg tablet 81 mg PO DAILY 08/22/21 [History Last Taken Unknown] atorvastatin 40 mg tablet 40 mg PO DAILY 08/22/21 [History Last Taken Unknown] cholecalciferol (vitamin D3) 125 mcg (5,000 unit) tablet (Vitamin D3) 125 mcg PO DAILY 08/22/21 [History Last Taken Unknown] furosemide 20 mg tablet 20 mg PO DAILY 08/22/21 [History Last Taken Unknown] sirolimus 0.5 mg tablet (Rapamune) 0.5 mg PO DAILY 08/22/21 [History Last Taken Unknown] sodium bicarbonate 650 mg tablet 650 mg PO BID 08/22/21 [History Last Taken Unknown] vitamin B6-vitamin E-magnesium tablet 1 tab PO DAILY 08/22/21 [History Last Taken Unknown] Allergy/AdvReac Type Severity Reaction Status Date / Time No Known Allergies Allergy Verified 04/26/23 12:34 Surgical History (Updated 04/26/23 @ 13:[address] Bo Lantigua, ) History of appendectomy History of cholecystectomy History of herniorrhaphy History of liver transplant Social History household members: spouse Smoking Status: Never smoker alcohol intake: never substance use type: does not use ROS ROS Narrative GENERAL: denies fever, chills, night sweats, weight loss, anorexia HEENT: denies headache, sinus congestion, or drainage, dysphagia RESPIRATORY: shortness of breath, dyspnea on exertion CARDIAC: denies chest pain, palpitations, orthopnea, PND GASTROINTESTINAL: denies abdominal pain, nausea, vomiting, melena, GENITOURINARY: denies dysuria, urgency, frequency, heamaturia EXTREMITY: denies swelling MUSCULOSKELETAL: denies current joint pain or tenderness NEUROLOGIC: denies focal numbness, weakness, tingling HEMATOLOGIC: denies easy bruising and/or hemorrhage INTEGUMENT: denies rashes PSYCHIATRIC: denies suicidal or homicidal ideation Vital Signs Vital Signs Vital Signs: 04/26/23 12:30 04/26/23 12:44 04/26/23 12:44 Temperature 96.9 F L 98 F Temperature Source Temporal Oral Pulse Rate 55 L 57 L Respiratory Rate 18 19 H Respiratory Effort Respiratory Depth Respiratory Pattern Normal Blood Pressure 186/71 H 186/71 H Blood Pressure Mean 109 109 Pulse Ox 97 99 Oxygen Delivery Method Room Air Room Air 04/26/23 12:44 04/26/23 13:46 04/26/23 14:37 Temperature 98 F Temperature Source Oral Pulse Rate 53 L 53 L Respiratory Rate 18 Respiratory Effort Short of Breath Respiratory Depth Shallow Respiratory Pattern Normal Blood Pressure 160/73 H 167/66 H Blood Pressure Mean 102 Pulse Ox 98 Oxygen Delivery Method Room Air Room Air 04/26/23 15:00 Temperature Temperature Source Pulse Rate 54 L Respiratory Rate 17 Respiratory Effort Respiratory Depth Respiratory Pattern Blood Pressure 147/68 H Blood Pressure Mean 94 Pulse Ox 100 Oxygen Delivery Method Room Air Weight Weight: 102.1 kg Body Mass Index (BMI) 35.2 Physical Exam Narrative GENERAL: cooperative HEENT: Atraumatic; normocephalic EYES; Anicteric, Normal Conjunctiva NECK; supple, normal thyroid, RESPIRATORY: Diminished to auscultation CARDIOVASCULAR: Regular S1 S2, GI: soft, normoactive bowel sounds, : No Renal angle tenderness; EXTREMITIES: Bipedal edema, right greater than left MUSCULOSKELETAL: no muscle wasting NEURO: Awake; no lateralizing signs. SKIN: No Rash PSYCH; Flat affect Results Lab / Micro Data 04/26/23 13:02 04/26/23 13:02 Labs: Laboratory Results - last 24 hr 04/26/23 13:02: WBC 9.3, RBC 3.35 L, Hgb 9.4 L, Hct 30.9 L, MCV 92.2, MCH 28.1, MCHC 30.4 L, RDW Std Deviation 52.4 H, RDW Coeff of Ursula 15.8 H, Plt Count 125 L, MPV 9.4, Immature Gran % (Auto) 3.300 H, Neut % (Auto) 69.5, Lymph % (Auto) 13.7 L, Woods % (Auto) 11.7 H, Eos % (Auto) 1.4, Baso % (Auto) 0.4, Absolute Neuts (auto) 6.5, Absolute Lymphs (auto) 1.27, Nucleated RBC % 0, PT 13.0, INR 1.0, APTT 24.0 L, D-Dimer Quant (PE/DVT) 0.95 H*, Sodium 137, Potassium 4.7, Chloride 108 H, Carbon Dioxide 24.0, Anion Gap 5, BUN 61 H, Creatinine 3.80 H, Estim Creat Clear Calc 14.98, Est GFR (MDRD) Af Amer 20 L, Est GFR (MDRD) Non-Af 17 L, BUN/Creatinine Ratio 16.1, Glucose 134 H, Calcium 9.1, Total Bilirubin 0.50, AST 18, ALT 56, Alkaline Phosphatase 71, Troponin I High Sens 25, B-Natriuretic Peptide 734.7 H, Total Protein 6.9, Albumin 3.4, Globulin 3.5, Albumin/Globulin Ratio 1.0 04/26/23 15:45: Troponin I High Sens 25 Radiology Impression Chest X-Ray 04/26/23 13:25 IMPRESSION: Stable blunting of the left costophrenic angle with some mild increased markings at the left lung base suggestive of scarring. Electronically Signed: Burt Higgins MD at 13:45 EDT , Assessment & Plan Assessment/Plan (1) Congestive heart failure: PLAN: Plan Patient is a 78-year-old gentleman presenting with progressive shortness of breath 1. Acute congestive heart failure ? Unspecified at this point. Patient has been admitted to monitored bed managed with strict input and output, daily weight, low-salt diet as well as fluid restriction. Patient was started on furosemide. 2D echo ordered for EF assessment 2. Chronic kidney disease stage IV/V ? Patient baseline creatinine has ranged from 2.7-3.3. Creatinine was 3.8 on admission serial monitoring with daily BMPs ordered 3. History of liver transplant ? Secondary to alcoholic cirrhosis, did continue patient antirejection medications 4. Anemia - Secondary to chronic disorder monitoring H&H and transfuse if patient becomes symptomatic or hemoglobin falls below 7 5. Class II obesity with BMI of 36 ? Complicating care weight loss advised next 6. Hypertension - Blood pressure controlled, home medications continued with dose adjustment as needed 7. Dyslipidemia -Patient is on statin therapy, continued at home dose 8. DVT prophylaxis ? SC Lovenox dose adjusted for kidney function Time spent in the patient's overall evaluation,decision-making process, review of diagnostic data, adjustment of management, discussion with other providers, nursing nursing and ancillary staff involved in patient's care documentation, 75 Minutes Advance planning; did discuss with the patient and family regarding advanced directives as well as CODE STATUS. Did explain the various scenarios involved ( FULL CODE, DNR CCA, DNR CCA with no intubation, and DNR CC and what each meant) patient elected to to remain full code with CPR and intubation if needed. Order was placed. Time spent on discussion 18 minutes. Charges/Coding Visit Charges Inpatient E&M: 49913 Init Hosp L3 Procedures Hospitalists Procedures: 09096 Advncd Care Plan 30 Min
--- NOTE | 2023-04-26 16:51 | NURSING ---
PCU [facility] CHF, DYSPNEA ON EXERTION
--- NOTE | 2023-04-26 18:51 | ECHOD_ITS ---
Reason For Study: Dyspnea/SOB Procedure This was a 2D Doppler, Color Flow transthoracic echocardiogram. Exam performed portable in patient room. Left Ventricle Mild concentric left ventricular hypertrophy. The estimated ejection fraction is 55=60 %. Right Ventricle Normal right ventricle. Normal systolic function. Atria The left atrium is mildly enlarged. Normal right atrium. Mitral Valve There is moderate to severe mitral annular calcification. Mild (1+) mitral valve insufficiency. Tricuspid Valve Normal tricuspid valve. Mild tricuspid valve insufficiency. Aortic Valve The aortic valve is not well visualized in the short axis view. Mild (1+) aortic valve insufficiency. Pulmonic Valve The pulmonic valve is not well visualized. Great Vessels The aortic root is not well visualized. Pericardium/Pleural No pericardial effusion. MMode/2D Measurements & Calculations LVIDd: 5.7 cm IVSd: 1.3 cm Ao root diam: 3.8 cm LVIDs: 3.3 cm LVPWd: 1.2 cm RVDd: 3.1 cm FS: 43.0 % LAV(MOD-bp): 62.0 ml LVAd ap4: 34.5 cm2 SV(MOD-sp4): 77.7 ml LAV(MOD-bp) Indexed: 33.7 ml/m2 LVLd ap4: 8.1 cm LAV(MOD-sp2): 69.8 ml EDV(MOD-sp4): 121.1 ml LAV(MOD-sp4): 52.0 ml EDV(sp4-el): 124.8 ml LVAs ap4: 18.7 cm2 LVLs ap4: 6.7 cm ESV(MOD-sp4): 43.4 ml ESV(sp4-el): 44.1 ml EF(MOD-sp4): 64.1 % EF(sp4-el): 64.7 % SV(sp4-el): 80.7 ml LA A4 area: 19.1 cm2 LA dimension(2D): 4.6 cm RA A4 area: 10.4 cm2 Time Measurements MV dec time: 0.24 sec Doppler Measurements & Calculations MV E max sky: 102.0 cm/sec Lat Peak E' Sky: 6.9 cm/sec Med Peak E' Sky: 5.2 cm/sec MV A max sky: 139.6 cm/sec E/E' lat: 14.9 E/E' med: 19.8 MV E/A: 0.73 Ao V2 max: 167.4 cm/sec LV V1 max: 111.0 cm/sec MV dec slope: 419.1 cm/sec2 Ao max P.2 mmHg LV V1 max P.9 mmHg Ao V2 mean: 113.4 cm/sec LV V1 mean P.3 mmHg Ao mean P.9 mmHg LV V1 mean: 88.0 cm/sec Ao V2 VTI: 37.1 cm LV V1 VTI: 26.9 cm AV (velocity ratio): 0.72 PA V2 max: 134.7 cm/sec PI end-d sky: 128.2 cm/sec TR max sky: 309.9 cm/sec TR max P.4 mmHg ECHO/Echo Complete Interpretation Summary The estimated ejection fraction is 55=60 %. Normal LV systolic function No prior study to compare Ordering Physician: José Antonio Trivedi Referring Physician: Sanju Fiore Performed By: Neli Cronin, JOELLEN, RVT
[2023-04-26 20:36] LABS: Troponin-I HS 24 pg/mL (3.0-78.0)
[2023-04-26] MEDS: Sodium Bicarbonate 650 MG Tablet PO (21:09)
[2023-04-26] MEDS: Atorvastatin Calcium 40 MG Tablet PO (21:09)
[2023-04-26] MEDS: 0.9% Saline Lock 10 ML Syringe IV (21:16)
[2023-04-27 03:30] VITALS: BP 157/68; PULSE 69; RESP 16; TEMP 36.7; O2SAT 100
[2023-04-27 06:00] VITALS: BMI 34.2
[2023-04-27] MEDS: Furosemide 40 MG/4 ML Vial IV ×3 (06:17→21:49)
[2023-04-27] MEDS: Sodium Bicarbonate 650 MG Tablet PO ×3 (06:17→21:49)
[2023-04-27 06:35] LABS: Absolute Lymphocyte Count 1.23 X10^3/uL (0.83-4.51); Basophil# 0.03 X10^3/uL; Basophil% 0.4 % (0-1); Eosinophil# 0.14 X10^3/uL; Eosinophils% 1.9 % (0-5); Hematocrit 28.4 % (40-54); Lymphocyte # 1.23 X10^3/ul (0.83-4.51); Lymphocyte % 16.6 % (19-41); Mean Corp Hgb Conc 31.7 g/dL (32-36); Mean Corpuscular Hgb 28.9 pg (27.0-32.0); Mean Corpuscular Volume 91.3 fL (80-94); Mean Platelet Vol. 9.6 fl (6.2-12.0); Monocyte# 0.79 X10^3/uL; Monocyte% 10.7 % (0-10); NRBC Flagged by Analyzer 0 % (0-5); Neutrophil # 5.01 X10^3/uL (2.7-7.7); Neutrophil % 67.8 % (47-70); Platelet Count 110 K/mm3 (150-450); RBC Distribution Width CV 15.9 % (11.6-14.6); RBC Distribution Width SD 51.4 fl (35.1-43.9); Red Blood Count 3.11 M/mm3 (4.6-6.2); White Blood Count 7.4 K/mm3 (4.4-11.0)
[2023-04-27 07:01] LABS: Anion Gap 6 (5-15); BUN 69 mg/dL (7-18); BUN/Creat Ratio 18.3 RATIO (10-20); Calcium,Total 9.3 mg/dL (8.5-10.1); Chloride 109 mmol/L (98-107); Creatinine, Serum 3.77 mg/dL (0.70-1.30); EST Glomerular Filtration Rate 17 mL/min (>60); Est Glom Filt Rate - Afr Amer 20 mL/min (>60); Glucose 118 mg/dL (74-106); Magnesium 2.5 mg/dL (1.6-2.6); Phosphorus 4.3 mg/dL (2.5-4.9); Potassium 4.6 mmol/L (3.5-5.1); Sodium Level 138 mmol/L (136-145)
[2023-04-27 07:50] VITALS: O2SAT 98
--- NOTE | 2023-04-27 08:00 | PN.HOSP_ITS ---
Reason for Visit Reason for Visit: Diagnoses Heart failure, unspecified (04/26/23) Subjective Subjective Patient is a 78-year-old gentleman admitted with progressive shortness of breath and assessment of acute congestive heart failure made admitted to a monitored bed for further management Objective Data Objective Data Vital Signs: Vital Signs Temp Pulse Resp BP Pulse Ox O2 Del Method 98.0 F 69 16 157/68 H 100 Room Air 04/27/23 03:30 04/27/23 03:30 04/27/23 03:30 04/27/23 03:30 04/27/23 03:30 04/27/23 07:43 Oxygen Delivery Method Room Air Weight: 99.2 kg Body Mass Index (BMI) 34.2 Intake & Output: Intake and Output for Last 24 Hours 04/25/23 04/26/23 04/27/23 23:59 23:59 23:59 Intake Total 340 / 340 Output Total 1150 / 1150 Balance -810 / -810 Lab / Micro Data 04/27/23 05:30 04/27/23 05:30 Labs: Laboratory Results - last 24 hr 04/26/23 13:02: WBC 9.3, RBC 3.35 L, Hgb 9.4 L, Hct 30.9 L, MCV 92.2, MCH 28.1, MCHC 30.4 L, RDW Std Deviation 52.4 H, RDW Coeff of Ursula 15.8 H, Plt Count 125 L, MPV 9.4, Immature Gran % (Auto) 3.300 H, Neut % (Auto) 69.5, Lymph % (Auto) 13.7 L, Wilson % (Auto) 11.7 H, Eos % (Auto) 1.4, Baso % (Auto) 0.4, Absolute Neuts (auto) 6.5, Absolute Lymphs (auto) 1.27, Nucleated RBC % 0, PT 13.0, INR 1.0, APTT 24.0 L, D-Dimer Quant (PE/DVT) 0.95 H*, Sodium 137, Potassium 4.7, Chloride 108 H, Carbon Dioxide 24.0, Anion Gap 5, BUN 61 H, Creatinine 3.80 H, Estim Creat Clear Calc 14.98, Est GFR (MDRD) Af Amer 20 L, Est GFR (MDRD) Non-Af 17 L, BUN/Creatinine Ratio 16.1, Glucose 134 H, Calcium 9.1, Total Bilirubin 0.50, AST 18, ALT 56, Alkaline Phosphatase 71, Troponin I High Sens 25, B-Natriuretic Pept maria elena 734.7 H, Total Protein 6.9, Albumin 3.4, Globulin 3.5, Albumin/Globulin Ratio 1.0 04/26/23 15:45: Troponin I High Sens 25 04/26/23 19:55: Troponin I High Sens 24 04/27/23 05:30: WBC 7.4, RBC 3.11 L, Hgb 9.0 L, Hct 28.4 L, MCV 91.3, MCH 28.9, MCHC 31.7 L, RDW Std Deviation 51.4 H, RDW Coeff of Ursula 15.9 H, Plt Count 110 L, MPV 9.6, Immature Gran % (Auto) 2.600 H, Neut % (Auto) 67.8, Lymph % (Auto) 16.6 L, Wilson % (Auto) 10.7 H, Eos % (Auto) 1.9, Baso % (Auto) 0.4, Absolute Neuts (auto) 5.0, Absolute Lymphs (auto) 1.23, Nucleated RBC % 0, Sodium 138, Potassium 4.6, Chloride 109 H, Carbon Dioxide 23.0, Anion Gap 6, BUN 69 H, Creatinine 3.77 H, Estim Creat Clear Calc 15.10, Est GFR (MDRD) Af Amer 20 L, Est GFR (MDRD) Non-Af 17 L, BUN/Creatinine Ratio 18.3, Glucose 118 H, Calcium 9.3, Phosphorus 4.3, Magnesium 2.5 Radiography Diagnostic Testing: Radiology Impression Venous Doppler Study 04/26/23 13:24 Interpretation Summary There is no evidence of right lower extremity deep vein thrombosis. Right great saphenous vein appears patent and compressible segmentally. Ordering Physician: Bo Lantigua Referring Physician: Sanju Fiore Performed By: Clara Patel RVT Chest X-Ray 04/26/23 13:25 IMPRESSION: Stable blunting of the left costophrenic angle with some mild increased markings at the left lung base suggestive of scarring. Electronically Signed: Burt Higgins MD at 13:45 EDT , Physical Exam Narrative GENERAL: cooperative HEENT: Atraumatic; normocephalic EYES; Anicteric, Normal Conjunctiva NECK; supple, normal thyroid, RESPIRATORY: Diminished to auscultation CARDIOVASCULAR: Regular S1 S2, GI: soft, normoactive bowel sounds, : No Renal angle tenderness; EXTREMITIES: Bipedal edema, right greater than left MUSCULOSKELETAL: no muscle wasting NEURO: Awake; no lateralizing signs. SKIN: No Rash PSYCH; Flat affect Assessment & Plan Assessment/Plan (1) Congestive heart failure: PLAN: Plan Patient is a 78-year-old gentleman presenting with progressive shortness of breath 1. Acute congestive heart failure ? Unspecified at this point. Patient has been admitted to monitored bed managed with strict input and output, daily weight, low-salt diet as well as fluid restriction. Patient was started on furosemide. 2D echo ordered for EF assessment ? 04/27/2023; patient is in a negative fluid balance of 0.8 L following admission echo ordered pending to be performed 2. Chronic kidney disease stage IV/V ? Patient baseline creatinine has ranged from 2.7-3.3. Creatinine was 3.8 on admission serial monitoring with daily BMPs ordered. 3. History of liver transplant ? Secondary to alcoholic cirrhosis, did continue patient antirejection medications 4. Anemia - Secondary to chronic disorder monitoring H&H and transfuse if patient becomes symptomatic or hemoglobin falls below 7 5. Class II obesity with BMI of 36 ? Complicating care weight loss advised 6. Hypertension - Blood pressure controlled, home medications continued with dose adjustment as needed 7. Dyslipidemia -Patient is on statin therapy, continued at home dose 8. DVT prophylaxis ? SC Lovenox dose adjusted for kidney function Time spent in the patient's overall evaluation,decision-making process, review of diagnostic data, adjustment of management, discussion with other providers, nursing nursing and ancillary staff involved in patient's care documentation, 50 Minutes Charges/Coding Visit Charges Inpatient E&M: 96220 Subs Hosp L3
[2023-04-27 08:44] VITALS: BP 165/68; PULSE 65; RESP 18; TEMP 36.3; O2SAT 98
[2023-04-27] MEDS: Aspirin 81 MG TAB.CHEW PO (08:48)
[2023-04-27] MEDS: Pyridoxine HCl 100 MG Tablet PO (08:49)
[2023-04-27] MEDS: Cholecalciferol (Vit D3) 125 MCG CAPSULE (5,000 UNITS) PO (08:49)
[2023-04-27] MEDS: dilTIAZem CD 240 MG Capsule PO (09:24)
[2023-04-27] MEDS: Carvedilol 25 MG Tablet PO ×2 (09:24→16:49)
[2023-04-27] MEDS: Enoxaparin 30 MG/0.3 ML Syringe SC (09:25)
[2023-04-27] MEDS: SIROLIMUS 0.5 MG TABLET PO (10:02)
[2023-04-27] MEDS: 0.9% Saline Lock 10 ML Syringe IV (13:22)
[2023-04-27 15:20] VITALS: BP 147/64; PULSE 68; RESP 18; TEMP 36.1; O2SAT 99
[2023-04-27] MEDS: Acetaminophen 325 MG Tablet 650 MG PO (15:25)
--- NOTE | 2023-04-27 16:05 | CASEMGMT ---
PASCALE MCDONALD Assessment: PASCALE MCDONALD to room to meet with patient for initial transition planning/care coordination assessment. PASCALE MCDONALD introduced self and role at [facility]. Pt voices understanding and consents to assessment at this time. Pt resting in bed in no distress at this time. Pt is A/O at this time and answers all questions appropriately. Care providers, pharmacy, and demographics verified/updated at this time. PCP: Dr Fiore Specialists: Dr Patel- [facility] Liver Transplant surgeon. Log Chipper Operator @ [facility]--pt does not remember name Preferred Pharmacy: [facility] Insurance: O Medicare Prescription Benefit: yes Living Will/HPOA: Patient states he has a LW and HCPOA, who is his , Brittani. LNOK: , Brittani Baldwin. 3 children. Living Arrangements: Lives with in two story house with 6 steps to enter the home. Patient states he is independent w/ADL's. manages his medications and does most home mgnt tasks. Patient states his 3 children live close-by and check in frequently. Transportation: Both pt and drive. DME: Patient typically ambulates with walking stick outside the home. Patient also has walker and W/C available, but does no use them. Pt has a raised toilet seat, lift chair, shower chair, nebulizer, and pulse ox. No home O2. If pt qualifies for home O2, pt states [employer] @ d/c. Denies need for additional DME at this time. HHC/SNF: Previous HHC following liver transplant in 2012, unsure of HHC company. Denies previous SNF stays. Pt declines need of HHC and no needs identified. Pt has no concerns with going home at time of discharge. CM to follow for any discharge planning/needs. Pt voices no concerns/needs at this time. Advised pt to ask for CM if any questions/concerns/needs arise. Voices understanding. PLAN: home Angelita HORTON RN, CM
[2023-04-27 21:46] VITALS: BP 144/64; PULSE 66; RESP 18; TEMP 36.8; O2SAT 98
[2023-04-27] MEDS: Atorvastatin Calcium 40 MG Tablet PO (21:49)
[2023-04-28 03:38] VITALS: BP 159/68; PULSE 70; RESP 18; TEMP 36.8; O2SAT 96
[2023-04-28] MEDS: Furosemide 40 MG/4 ML Vial IV (05:24)
[2023-04-28] MEDS: Sodium Bicarbonate 650 MG Tablet PO (05:24)
[2023-04-28] MEDS: 0.9% Saline Lock 10 ML Syringe IV (05:24)
[2023-04-28 06:00] VITALS: BMI 33.7
[2023-04-28 06:31] LABS: Absolute Lymphocyte Count 1.06 X10^3/uL (0.83-4.51); Basophil# 0.03 X10^3/uL; Basophil% 0.5 % (0-1); Eosinophil# 0.13 X10^3/uL; Eosinophils% 2.2 % (0-5); Hematocrit 28.6 % (40-54); Hemoglobin 9.1 g/dL (13.0-16.5); Lymphocyte # 1.06 X10^3/ul (0.83-4.51); Lymphocyte % 17.8 % (19-41); Mean Corp Hgb Conc 31.8 g/dL (32-36); Mean Corpuscular Hgb 29.2 pg (27.0-32.0); Mean Corpuscular Volume 91.7 fL (80-94); Mean Platelet Vol. 9.4 fl (6.2-12.0); Monocyte# 0.69 X10^3/uL; Monocyte% 11.6 % (0-10); NRBC Flagged by Analyzer 0 % (0-5); Neutrophil # 3.96 X10^3/uL (2.7-7.7); Neutrophil % 66.2 % (47-70); Platelet Count 101 K/mm3 (150-450); RBC Distribution Width CV 15.8 % (11.6-14.6); RBC Distribution Width SD 51.5 fl (35.1-43.9); Red Blood Count 3.12 M/mm3 (4.6-6.2)
[2023-04-28 07:22] LABS: Anion Gap 6 (5-15); BUN 85 mg/dL (7-18); BUN/Creat Ratio 20.7 RATIO (10-20); Chloride 107 mmol/L (98-107); Creatinine, Serum 4.11 mg/dL (0.70-1.30); EST Glomerular Filtration Rate 15 mL/min (>60); Est Glom Filt Rate - Afr Amer 18 mL/min (>60); Estimated Creatinine Clearance 13.85 ml/min; Glucose 121 mg/dL (74-106); Potassium 4.5 mmol/L (3.5-5.1); Sodium Level 139 mmol/L (136-145)
--- NOTE | 2023-04-28 07:54 | PCM.PN.HOSP ---
Reason for Visit Reason for Visit: Diagnoses Heart failure, unspecified (04/26/23) Subjective Subjective 2D echo did show The estimated ejection fraction is 55=60 %. Normal LV systolic function. Patient furosemide dose adjusted in view of slight worsening of his kidney function Objective Data Objective Data Vital Signs: Vital Signs Temp Pulse Resp BP Pulse Ox O2 Del Method 98.2 F 70 18 159/68 H 96 Room Air 04/28/23 03:38 04/28/23 03:38 04/28/23 03:38 04/28/23 03:38 04/28/23 03:38 04/28/23 07:08 Oxygen Delivery Method Room Air Weight: 97.4 kg Body Mass Index (BMI) 33.7 Intake & Output: Intake and Output for Last 24 Hours 04/26/23 04/27/23 04/28/23 23:59 23:59 23:59 Intake Total 820 / 820 Output Total 2105 / 2105 300 / 300 Balance -1285 / -1285 -300 / -300 Lab / Micro Data 04/28/23 05:47 04/28/23 05:47 Labs: Laboratory Results - last 24 hr 04/28/23 05:47: WBC 6.0, RBC 3.12 L, Hgb 9.1 L, Hct 28.6 L, MCV 91.7, MCH 29.2, MCHC 31.8 L, RDW Std Deviation 51.5 H, RDW Coeff of Ursula 15.8 H, Plt Count 101 L, MPV 9.4, Immature Gran % (Auto) 1.700 H, Neut % (Auto) 66.2, Lymph % (Auto) 17.8 L, [place] % (Auto) 11.6 H, Eos % (Auto) 2.2, Baso % (Auto) 0.5, Absolute Neuts (auto) 4.0, Absolute Lymphs (auto) 1.06, Nucleated RBC % 0, Sodium 139, Potassium 4.5, Chloride 107, Carbon Dioxide 26.0, Anion Gap 6, BUN 85 H, Creatinine 4.11 H, Estim Creat Clear Calc 13.85, Est GFR (MDRD) Af Amer 18 L, Est GFR (MDRD) Non-Af 15 L, BUN/Creatinine Ratio 20.7 H, Glucose 121 H, Calcium 9.0 Radiography Diagnostic Testing: Radiology Impression Echocardiogram 04/26/23 18:51 Interpretation Summary The estimated ejection fraction is 55=60 %. Normal LV systolic function No prior study to compare Ordering Physician: José Antonio Trivedi Referring Physician: Sanju Fiore Performed By: Neli Cronin, JOELLEN, RVT Physical Exam Narrative GENERAL: cooperative HEENT: Atraumatic; normocephalic EYES; Anicteric, Normal Conjunctiva NECK; supple, normal thyroid, RESPIRATORY: Diminished to auscultation CARDIOVASCULAR: Regular S1 S2, GI: soft, normoactive bowel sounds, : No Renal angle tenderness; EXTREMITIES: Bipedal edema, right greater than left MUSCULOSKELETAL: no muscle wasting NEURO: Awake; no lateralizing signs. SKIN: No Rash PSYCH; Flat affect Assessment & Plan Assessment/Plan (1) Congestive heart failure: PLAN: Plan Patient is a 78-year-old gentleman presenting with progressive shortness of breath 1. Acute congestive heart failure with preserved ejection fraction ? Unspecified at this point. Patient has been admitted to monitored bed managed with strict input and output, daily weight, low-salt diet as well as fluid restriction. Patient was started on furosemide. 2D echo ordered for EF assessment ? 04/27/2023; patient is in a negative fluid balance of 0.8 L following admission echo ordered pending to be performed ? 04/28/2023; 2D echo did show The estimated ejection fraction is 55=60 %. Normal LV systolic function. Patient furosemide dose adjusted in view of slight worsening of his kidney function 2. Chronic kidney disease stage IV/V ? Patient baseline creatinine has ranged from 2.7-3.3. Creatinine was 3.8 on admission serial monitoring with daily BMPs ordered. ? 04/28/2023; adjusted furosemide dose in view of worsening kidney function 3. History of liver transplant ? Secondary to alcoholic cirrhosis, did continue patient antirejection medications 4. Anemia - Secondary to chronic disorder monitoring H&H and transfuse if patient becomes symptomatic or hemoglobin falls below 7 5. Class II obesity with BMI of 36 ? Complicating care weight loss advised 6. Hypertension - Blood pressure controlled, home medications continued with dose adjustment as needed 7. Dyslipidemia -Patient is on statin therapy, continued at home dose 8. DVT prophylaxis ? SC Lovenox dose adjusted for kidney function Time spent in the patient's overall evaluation,decision-making process, review of diagnostic data, adjustment of management, discussion with other providers, nursing nursing and ancillary staff involved in patient's care documentation, 35 Minutes Charges/Coding Visit Charges Inpatient E&M: 87655 Subs Hosp L2
[2023-04-28 08:00] VITALS: O2SAT 97
--- NOTE | 2023-04-28 09:37 | PCM.DC.SUM ---
Providers Date of Admission: 04/26/23 Date of Discharge: 04/28/23 Primary Care Physician: Dr. Sanju Fiore MD Reason For Visit: CHF Diagnosis Discharge Diagnosis (1) Congestive heart failure: Status: Acute Code(s): I50.9 - Heart failure, unspecified Plan Patient is a 78-year-old gentleman presenting with progressive shortness of breath 1. Acute congestive heart failure with preserved ejection fraction ? Unspecified at this point. Patient has been admitted to monitored bed managed with strict input and output, daily weight, low-salt diet as well as fluid restriction. Patient was started on furosemide. 2D echo ordered for EF assessment ? 04/27/2023; patient is in a negative fluid balance of 0.8 L following admission echo ordered pending to be performed ? 04/28/2023; 2D echo did show The estimated ejection fraction is 55=60 %. Normal LV systolic function. Patient furosemide dose adjusted in view of slight worsening of his kidney function 2. Chronic kidney disease stage IV/V ? Patient baseline creatinine has ranged from 2.7-3.3. Creatinine was 3.8 on admission serial monitoring with daily BMPs ordered. ? 04/28/2023; adjusted furosemide dose in view of worsening kidney function 3. History of liver transplant ? Secondary to alcoholic cirrhosis, did continue patient antirejection medications 4. Anemia - Secondary to chronic disorder monitoring H&H and transfuse if patient becomes symptomatic or hemoglobin falls below 7 5. Class II obesity with BMI of 36 ? Complicating care weight loss advised 6. Hypertension - Blood pressure controlled, home medications continued with dose adjustment as needed 7. Dyslipidemia -Patient is on statin therapy, continued at home dose 8. DVT prophylaxis ? SC Lovenox dose adjusted for kidney function Time spent in the patient's overall evaluation,decision-making process, review of diagnostic data, adjustment of management, discussion with other providers, nursing nursing and ancillary staff involved in patient's care documentation, 35 Minutes Medications at Discharge Home Medications carvedilol 25 mg tablet 25 mg PO BID 10/26/19 diltiazem HCl 60 mg tablet 240 mg PO DAILY 10/26/19 aspirin 81 mg tablet 81 mg PO DAILY 08/22/21 atorvastatin 40 mg tablet 40 mg PO DAILY 08/22/21 cholecalciferol (vitamin D3) 125 mcg (5,000 unit) tablet (Vitamin D3) 125 mcg PO DAILY 08/22/21 sirolimus 0.5 mg tablet (Rapamune) 0.5 mg PO DAILY 08/22/21 sodium bicarbonate 650 mg tablet 650 mg PO TID 08/22/21 acetaminophen 500 mg capsule 1,000 mg PO Q6H PRN fever or pain 04/26/23 pyridoxine (vitamin B6) 100 mg tablet (Vitamin B-6) 100 mg PO DAILY 04/26/23 gabapentin 100 mg capsule 100 mg PO DAILY Neuropathy 04/27/23 furosemide 20 mg tablet 40 mg (2 x 20 mg) PO DAILY #30 tabs 04/28/23 Hospital Course Procedures 2-D Echocardiogram Summary of Care Provided Minutes Spent on Discharge: 35 Physical Exam Narrative GENERAL: cooperative HEENT: Atraumatic; normocephalic EYES; Anicteric, Normal Conjunctiva NECK; supple, normal thyroid, RESPIRATORY: Diminished to auscultation CARDIOVASCULAR: Regular S1 S2, GI: soft, normoactive bowel sounds, : No Renal angle tenderness; EXTREMITIES: Bipedal edema, right greater than left MUSCULOSKELETAL: no muscle wasting NEURO: Awake; no lateralizing signs. SKIN: No Rash PSYCH; Flat affect Weight / BMI Weight Weight: 97.4 kg Body Mass Index (BMI) 33.7 ABG / Lab / Microbiology Data 04/28/23 05:47 04/28/23 05:47 Laboratory: Laboratory Results - last 24 hr 04/28/23 05:47: WBC 6.0, RBC 3.12 L, Hgb 9.1 L, Hct 28.6 L, MCV 91.7, MCH 29.2, MCHC 31.8 L, RDW Std Deviation 51.5 H, RDW Coeff of Ursula 15.8 H, Plt Count 101 L, MPV 9.4, Immature Gran % (Auto) 1.700 H, Neut % (Auto) 66.2, Lymph % (Auto) 17.8 L, [place] % (Auto) 11.6 H, Eos % (Auto) 2.2, Baso % (Auto) 0.5, Absolute Neuts (auto) 4.0, Absolute Lymphs (auto) 1.06, Nucleated RBC % 0, Sodium 139, Potassium 4.5, Chloride 107, Carbon Dioxide 26.0, Anion Gap 6, BUN 85 H, Creatinine 4.11 H, Estim Creat Clear Calc 13.85, Est GFR (MDRD) Af Amer 18 L, Est GFR (MDRD) Non-Af 15 L, BUN/Creatinine Ratio 20.7 H, Glucose 121 H, Calcium 9.0 Radiography Diagnostic Testing: Radiology Impression Echocardiogram 04/26/23 18:51 Interpretation Summary The estimated ejection fraction is 55=60 %. Normal LV systolic function No prior study to compare Ordering Physician: José Antonio Trivedi Referring Physician: Sanju Fiore Performed By: Neli Cronin RDCS, RVT D/C Instructions Discharge Diet: 8 Cup Fluid Restriction and 2000 mg Sodium Diet Discharge Activity: Return to Normal Activity Call your doctor if you observe: Fever of 101 or Higher, Shortness of breath, Fainting spells and Chest pain Meaningful Use Info Meaningful Use Diagnoses (Choose all that apply): CHF CHF KERI/ARB ordered at discharge?: Yes Reason KERI/ARB not ordered?: Not indicated, Worsening renal disease and Worsening renal dysfunctn Documented LVEF (%): 60 Discharge Plan Admission Admit Date/Time: 04/26/23 16:33 Attending Provider: José Antonio Trivedi Primary Care Provider: Sanju Fiore Discharge Orders/Prescriptions Prescriptions: New furosemide 20 mg Tablet 40 mg PO DAILY Qty: 30 0RF Continued carvedilol 25 MG tablet 25 mg PO BID diltiazem HCl 60 MG tablet 240 mg PO DAILY atorvastatin 40 mg tablet 40 mg PO DAILY Patient Comments: TAKE 1 TABLET BY MOUTH DAILY AT BEDTIME sodium bicarbonate 650 mg tablet 650 mg PO TID Patient Comments: TAKE 1 TABLET BY MOUTH TWICE DAILY DIRECTED aspirin 81 mg Tablet 81 mg PO DAILY cholecalciferol (vitamin D3) [Vitamin D3] 125 mcg (5,000 unit) Tablet 125 mcg PO DAILY sirolimus [Rapamune] 0.5 mg Tablet 0.5 mg PO DAILY pyridoxine (vitamin B6) [Vitamin B-6] 100 mg tablet 100 mg PO DAILY acetaminophen 500 mg capsule 1,000 mg PO Q6H PRN (Reason: fever or pain) gabapentin 100 mg capsule 100 mg PO DAILY Discontinued furosemide 20 mg tablet 20 mg PO DAILY Patient Comments: TAKE 1 TABLET BY MOUTH EVERY DAY Referrals / Follow Up: Sanju Fiore MD [Primary Care Provider] - Within 1 Week Disposition Disposition (needs filled in before D/C Order can be placed): Home, Self Care Charges/Coding Visit Charges Inpatient E&M: 16244 Disch Hosp >30min
[2023-04-28 09:46] VITALS: BP 160/62; PULSE 67; RESP 18; TEMP 36.6; O2SAT 99
[2023-04-28] MEDS: dilTIAZem CD 240 MG Capsule PO (09:47)
[2023-04-28] MEDS: Cholecalciferol (Vit D3) 125 MCG CAPSULE (5,000 UNITS) PO (09:47)
[2023-04-28] MEDS: SIROLIMUS 0.5 MG TABLET PO (09:47)
[2023-04-28] MEDS: Carvedilol 25 MG Tablet PO (09:47)
[2023-04-28] MEDS: Aspirin 81 MG TAB.CHEW PO (09:47)
[2023-04-28] MEDS: Pyridoxine HCl 100 MG Tablet PO (09:48)
[2023-04-28] MEDS: Furosemide 20 MG Tablet 40 MG PO (09:50)
== END 2023-04-28 10:24 | disposition home or self-care (01) | DRG 291 ==
LOC: ED 16:45 → PCU 16:56
PROVIDERS: Admitting Provider Internal Medicine; Emergency Provider Emergency Medicine; PCP Family Medicine; Visit Provider Internal Medicine
DX: I13.0 Hypertensive heart and chronic kidney disease with heart failure and stage 1 through stage 4 chronic kidney disease, or unspecified chronic kidney disease (principal); I50.31 Acute diastolic (congestive) heart failure; N18.4 Chronic kidney disease, stage 4 (severe); Z94.4 Liver transplant status; D63.1 Anemia in chronic kidney disease; E11.22 Type 2 diabetes mellitus with diabetic chronic kidney disease; K70.30 Alcoholic cirrhosis of liver without ascites; I25.10 Atherosclerotic heart disease of native coronary artery without angina pectoris; E78.5 Hyperlipidemia, unspecified; E66.9 Obesity, unspecified; Z66 Do not resuscitate; Z68.36 Body mass index [BMI] 36.0-36.9, adult
CPT/HCPCS: 36415; 71045; 80048; 80053; 83735; 83880; 84100; 84484; 85025; 85379; 85610; 85730; 93005; 93306; 93971; 97802; 99252; 99285; A4216; G0463; J1940

== ENCOUNTER 2023-08-20 18:24 | Emergency (ER) | payer MEDICARE, SELFPAY ==
[2023-08-20 18:24] VITALS: BP 135/68; PULSE 69; RESP 20; TEMP 36; O2SAT 100
--- NOTE | 2023-08-20 19:10 | EX.ED.DYSGE1 ---
HPI History of Present Illness Chief Complaint: Abn Labs Narrative Narrative: Sent to ED from his oncology nurse for IV steroids. History of liver transplant 10 years ago on sirolimus. They have been watching his liver enzymes for last 2 months has been elevated. He had liver biopsy today he was called to go to ED for IV steroids. His nurse did call into my partner, discussing the specific need for 1 g IV steroids. They did not want any labs or imagings. Per patient there is oral steroids ordered for tomorrow for outpatient treatment and further management. He denies any recent fevers. Denies nausea or vomiting. Denies any abdominal pain. He is not a diabetic. [facility] Medical History Arthritis Chest pain Cirrhosis Congestive heart failure Coronary artery disease Diabetes DVT (deep venous thrombosis) Hemochromatosis Hernia History of blood clots Hyperlipidemia Hypertension Kidney disease Non-smoker Stroke/cerebrovascular accident TIA (transient ischemic attack) Home Medications carvedilol 25 mg tablet 25 mg PO BID 10/26/19 [History Last Taken Unknown] diltiazem HCl 60 mg tablet 240 mg PO DAILY 10/26/19 [History Last Taken Unknown] aspirin 81 mg tablet 81 mg PO DAILY 08/22/21 [History Last Taken Unknown] atorvastatin 40 mg tablet 40 mg PO DAILY 08/22/21 [History Last Taken Unknown] cholecalciferol (vitamin D3) 125 mcg (5,000 unit) tablet (Vitamin D3) 125 mcg PO DAILY 08/22/21 [History Last Taken Unknown] sirolimus 0.5 mg tablet (Rapamune) 0.5 mg PO DAILY 08/22/21 [History Last Taken Unknown] sodium bicarbonate 650 mg tablet 650 mg PO TID 08/22/21 [History Last Taken Unknown] acetaminophen 500 mg capsule 1,000 mg PO Q6H PRN fever or pain 04/26/23 [History Last Taken Unknown] pyridoxine (vitamin B6) 100 mg tablet (Vitamin B-6) 100 mg PO DAILY 04/26/23 [History Last Taken Unknown] gabapentin 100 mg capsule 100 mg PO DAILY Neuropathy 04/27/23 [History Last Taken Unknown] furosemide 20 mg tablet 40 mg (2 x 20 mg) PO DAILY #30 tabs 04/28/23 [Rx Last Taken Unknown] Allergy/AdvReac Type Severity Reaction Status Date / Time No Known Allergies Allergy Verified 04/26/23 16:56 Surgical History (Updated 08/20/23 @ 18:[address] Daniel Hadley DO) History of appendectomy History of cholecystectomy History of embolic filter insertion History of herniorrhaphy History of liver transplant Social History household members: spouse Smoking Status: Never smoker alcohol intake: never substance use type: does not use ROS ROS ED Constitutional Constitutional ED: Denies chills, fever(s) or sweats Eyes Eyes: Denies change in vision ENT ENT ED: Denies dysphagia or sore throat Cardiovascular Cardiovascular: Denies chest pain, leg edema, palpitations or racing heartbeat Respiratory/Chest Respiratory/Chest: Denies cough, dyspnea or dyspnea on exertion Gastrointestinal Gastrointestinal: Denies abdominal pain, diarrhea, nausea or vomiting Genitourinary Genitourinary ED: Denies dysuria, hematuria or urinary frequency Musculoskeletal Musculoskeletal: Denies back pain, extremity pain or neck pain Integumentary Denies rash or wounds Neurologic Neurologic: Denies headache(s), paresthesias or weakness EXAM Physical Exam Const Vital Signs: 08/20/23 18:24 08/20/23 18:50 Temperature 96.8 F L Temperature Source Temporal Pulse Rate 69 Respiratory Rate 20 H Respiratory Effort Normal Respiratory Pattern Normal Blood Pressure 135/68 H Blood Pressure Mean 90 Pulse Ox 100 Oxygen Delivery Method Room Air Positive well nourished and well developed General Appearance ED: well developed and NAD HEENT Reports moist mucous membranes normocephalic and atraumatic Eyes PERRL, EOMs intact bilaterally and conjunctivae normal General Eye ED: Yes normal appearance of both eyes Neck no lymphadenopathy and supple General: Negative for tenderness Chest Wall Chest: Negative for tenderness Resp normal respiratory effort and normal air movement Effort and Inspection: symmetric chest movement; Negative for respiratory distress Cardio regular rate, regular rhythm and no murmurs Peripheral Pulses: pulses 2+ throughout GI normal to inspection, nondistended, normoactive bowel sounds and non-tender Palpation: Negative for guarding or rebound tenderness present Back/Spine no CVA tenderness and no thoracic nor lumbar tenderness Extremity normal to inspection General Extremety ED: Negative for edema or tenderness General Extremity: Negative for edema Neuro oriented x3 and no sensory deficits noted Sensorium / Orientation: awake and alert Skin no rashes or lesions noted and no wounds MDM MDM MDM Narrative Medical decision making narrative: Interventions / MDM: Differential diagnosis: Liver transplant recipient, transaminitis Diagnosis considered but do not suspect: N/A My EKG interpretation: N/A Imaging independently reviewed and interpreted by myself: N/A External documents reviewed: N/A Test considered but not ordered:N/A ED course: Vital stable nontoxic. Patient confirms the plan for IV steroids this evening. He has outpatient management with oral steroids at his pharmacy to start tomorrow. IV established for 1 g IV Solu-Medrol. Discharged with outpatient follow-up. Re-evaluation: stable Disposition discussed with patient/family/significant other: Patient and significant other Case discussed with consulting clinician: Liver transplant team prior to arrival This note was generated with [employer] dictation software. It may contain incorrect words, spelling, and punctuation that were not noted in checking the note before signing. Discharge Plan Triage Chief Complaint: Abn Labs ED Provider: Daniel Hadley Dx/Rx/DC Orders Clinical Impression: Transaminitis, Liver transplant recipient Instructions: Transplant Dc Prescriptions: No Action carvedilol 25 MG tablet 25 mg PO BID diltiazem HCl 60 MG tablet 240 mg PO DAILY atorvastatin 40 mg tablet 40 mg PO DAILY Patient Comments: TAKE 1 TABLET BY MOUTH DAILY AT BEDTIME sodium bicarbonate 650 mg tablet 650 mg PO TID Patient Comments: TAKE 1 TABLET BY MOUTH TWICE DAILY DIRECTED aspirin 81 mg Tablet 81 mg PO DAILY cholecalciferol (vitamin D3) [Vitamin D3] 125 mcg (5,000 unit) Tablet 125 mcg PO DAILY sirolimus [Rapamune] 0.5 mg Tablet 0.5 mg PO DAILY pyridoxine (vitamin B6) [Vitamin B-6] 100 mg tablet 100 mg PO DAILY acetaminophen 500 mg capsule 1,000 mg PO Q6H PRN (Reason: fever or pain) gabapentin 100 mg capsule 100 mg PO DAILY furosemide 20 mg Tablet 40 mg PO DAILY Qty: 30 0RF Primary Care Provider: Sanju Fiore Referrals: Sanju Fiore MD [Primary Care Provider] - Activity Restrictions/Additional Instructions: You were ordered for 1 g of IV Solu-Medrol per orders from your transplant team this evening. Continue your treatment as an outpatient tomorrow. Disposition Disposition: Home, Self Care Discharge Date/Time: 08/20/23 20:49
[2023-08-20] MEDS: MethylPREDNISolone 1,000 MG in 0.9% Normal Saline (100mL Bag) 100 ML 100 MG IV (19:27)
== END 2023-08-20 20:49 | disposition home or self-care (01) ==
PROVIDERS: Emergency Provider Emergency Medicine; PCP Family Medicine; Visit Provider Emergency Medicine
DX: R74.01 Elevation of levels of liver transaminase levels (principal); Z94.4 Liver transplant status; I11.0 Hypertensive heart disease with heart failure; I50.9 Heart failure, unspecified; E11.9 Type 2 diabetes mellitus without complications; Z79.899 Other long term (current) drug therapy; I25.10 Atherosclerotic heart disease of native coronary artery without angina pectoris; E78.5 Hyperlipidemia, unspecified; Z86.73 Personal history of transient ischemic attack (TIA), and cerebral infarction without residual deficits; Z79.82 Long term (current) use of aspirin; Z90.49 Acquired absence of other specified parts of digestive tract
CPT/HCPCS: 96365; 99283; J2930

== ENCOUNTER → 2024-03-17 | Outpatient (CLI) | payer MEDICARE, SELFPAY ==
--- NOTE | 2024-03-17 12:55 | VDUE_ITS ---
Reason For Study: AVF Mapping Right Lower Arm Left Arm Proximal Radial artery diameter 0.22 x 0.25 Left Brachial artery diameter 4.9 x 5.1 mm. mm. Left Brachial artery waveform is triphasic . Proximal Radial artery waveform is Cephalic Vein at distal forearm measures 1.5 triphasic . x 1.4 mm. Calcification noted. Cephalic Vein at mid forearm measures 0.09 x Right Arm 1.4 mm. Right Brachial artery diameter 4.3 x 4.3 mm. Cephalic Vein proximal forearm measures 1.8 Right Brachial artery waveform is triphasic . x 1.6 mm. Cephalic Vein at distal forearm measures 1.7 Cephalic Vein at mid upper arm measures 3.1 x 1.9 mm. x 3.2 mm. Cephalic Vein at mid forearm measures 2.8 x Cephalic Vein at proximal upper arm measures 3.5 mm. 1.8 x 1.5 mm. Cephalic Vein proximal forearm measures 2.0 x Proximal Basilic vein measures 5.1 x 5.6 mm. 2.0 mm. Mid Basilic vein measures 4.7 x 4.4 mm. Cephalic Vein distal upper arm measures 2.3 x Distal Basilic vein measures 2.2 x 2.0 mm. 2.4 mm. Left Lower Arm Cephalic Vein at mid upper arm measures 3.1 x Proximal Radial artery diameter 2.5 x 2.6 2.9 mm. mm. Cephalic Vein at proximal upper arm measures Proximal Radial artery waveform is 2.3 x 2.6 mm. triphasic . Proximal Basilic vein measures 4.2 x 3.9 mm. Mid Basilic vein measures 4.7 x 4.6 mm. Distal Basilic vein measures 3.6 x 3.8 mm. VL/Dialysis Vein Map PRE-OP BILAT Interpretation Summary Bilateral upper extremity veins patent with measurements above. Bilateral upper extremity arteries patent with normal waveforms and measurement s above. Ordering Physician: Jolly Jackson Referring Physician: Sanju Fiore Performed By: Bud Quick RVT ???
== END | disposition home or self-care (01) ==
LOC: CVS 12:51
PROVIDERS: PCP Family Medicine; Referring Provider Physician Assistant; Visit Provider Physician Assistant
DX: Z01.818 Encounter for other preprocedural examination (principal); N18.6 End stage renal disease; Z99.2 Dependence on renal dialysis
CPT/HCPCS: 93985

== ENCOUNTER 2024-05-05 06:18 | Day surgery (SDC) | payer MEDICARE, SELFPAY ==
[2024-05-05] VITALS (9 sets, daily range): BP systolic 123–154; BP diastolic 66–104; PULSE 69–74; RESP 14–18; TEMP 36.2–36.6; O2SAT 99–100; BMI 24.9
[2024-05-05 07:05] LABS: Hematocrit 29.7 % (40-54); Hemoglobin 9.6 g/dL (13.0-16.5); Mean Corp Hgb Conc 32.3 g/dL (32-36); Mean Corpuscular Hgb 29.7 pg (27.0-32.0); Mean Platelet Vol. 9.5 fl (6.2-12.0); Platelet Count 115 K/mm3 (150-450); RBC Distribution Width CV 16.1 % (11.6-14.6); RBC Distribution Width SD 54.5 fl (35.1-43.9); Red Blood Count 3.23 M/mm3 (4.6-6.2); White Blood Count 4.6 K/mm3 (4.4-11.0)
[2024-05-05] MEDS: 0.9% Normal Saline (500mL Bag) 500 ML 15 ML IV (07:07)
--- NOTE | 2024-05-05 07:27 | PCM.HP.STD ---
HPI - General HPI Narrative SELVIN SANON, is a 79 M who presents today for AV access. Has been on dialysis for about 4 months now via right IJ catheter without issues. Right hand dominant, no prior PICC/pacer/fracture/node dissection. Mapping revealed adequate right arm [place] vein. [facility] Medical History (Updated 05/01/24 @ 10:20 by Rupali Link) Loss of hearing Wears glasses Wears dentures Anxiety Depression Alcohol use Insulin dependent diabetes mellitus Uses wheelchair Walker as ambulation aid Back pain Dietary restriction History of ulceration Gastric reflux Shortness of breath on exertion History of renal dialysis History of edema History of echocardiogram Cardiology follow-up encounter Arthritis DVT (deep venous thrombosis) TIA (transient ischemic attack) Coronary artery disease Congestive heart failure Cirrhosis Hemochromatosis Non-smoker Hyperlipidemia Hypertension Stroke/cerebrovascular accident Home Medications ?Medication ?Instructions ?Recorded ?Last Taken ?Type aspirin 81 mg tablet 81 mg PO DAILY 08/22/21 05/04/24 History atorvastatin 40 mg tablet 40 mg PO QHS 08/22/21 Unknown History cholecalciferol (vitamin D3) 125 125 mcg PO DAILY 08/22/21 Unknown History mcg (5,000 unit) tablet (Vitamin D3) sodium bicarbonate 650 mg tablet 650 mg PO TID 08/22/21 Unknown History acetaminophen 500 mg capsule 1,000 mg PO Q6H PRN fever or pain 04/26/23 Unknown History pyridoxine (vitamin B6) 100 mg 100 mg PO DAILY 04/26/23 Unknown History tablet (Vitamin B-6) insulin glargine 100 unit/mL (3 4 unit subcut QHS 03/03/24 05/04/24 History mL) subcutaneous pen (Lantus Solostar U-100 Insulin) insulin lispro 100 unit/mL 1 sliding scale dose subcut TID 03/03/24 Unknown History subcutaneous pen (Humalog KwikPen (U-100) Insulin) midodrine 5 mg tablet 5 mg PO BID 03/03/24 05/05/24 History tamsulosin 0.4 mg capsule 0.4 mg PO QHS 03/03/24 Unknown History torsemide 20 mg tablet 20 mg PO BID 03/03/24 Unknown History carvedilol 12.5 mg tablet 12.5 mg PO BID 05/01/24 05/05/24 History clopidogrel 75 mg tablet 75 mg PO DAILY 05/01/24 05/04/24 History diltiazem HCl 240 mg 240 mg PO DAILY 05/01/24 05/05/24 History capsule,extended release 24 hr mycophenolate mofetil 250 mg 500 mg PO BID 05/01/24 05/05/24 History capsule pantoprazole 40 mg tablet,delayed 40 mg PO DAILY 05/01/24 05/05/24 History release sertraline 25 mg tablet 25 mg PO DAILY 05/01/24 Unknown History tacrolimus 1 mg capsule, 1 mg PO BID 05/01/24 05/05/24 History immediate-release Allergy/AdvReac Type Severity Reaction Status Date / Time No Known Allergies Allergy Verified 05/05/24 06:47 Surgical History (Updated 05/01/24 @ 10:20 by Rupali Link) History of cardiac catheterization Hx of colonoscopy History of coronary artery stent placement History of embolic filter insertion History of herniorrhaphy History of appendectomy History of cholecystectomy History of liver transplant Social History household members: spouse Smoking Status: Never smoker alcohol intake: never substance use type: does not use ROS Constitutional Constitutional: Reports frequent falls and weakness; Denies chills, fever(s) or lethargy Eyes Eyes: Denies blind spots, change in vision or loss of vision ENT HEENT: Denies bleeding gums, hoarseness or sore throat Cardiovascular Cardiovascular: Reports dyspnea on exertion; Denies abdominal pain, bluish discoloration of hand/feet, chest pain with activity, claudication, cold extremities, cyanosis, erythema on extremities, irregular heart rhythm, leg edema, leg ulcers, numbness in extremities or weakness in extremities Respiratory/Chest Respiratory/Chest: Reports shortness of breath with exertion; Denies cough, excessive phlegm production, shortness of breath at rest or wheezing Gastrointestinal Gastrointestinal: Denies anorexia, change in stool character, constipation, diarrhea, melena or rectal bleeding Genitourinary Genitourinary: Denies dysuria or hematuria Musculoskeletal Musculoskeletal: Denies abnormal gait Integumentary Integumentary: Reports other Details: ; Denies erythema, non-healing lesions or wounds Neurologic Neurologic: Denies abnormal speech, focal weakness, headache(s), loss of vision, numbness, paresthesias or sensory deficit Hematologic/Lymphatic Hematologic/Lymphatic: Denies easy bleeding, easy bruising or lymphadenopathy Vital Signs Vital Signs Vital Signs: 05/05/24 06:51 05/05/24 06:51 Temperature 97.9 F Temperature Source Temporal Pulse Rate 74 Respiratory Rate 18 Respiratory Pattern Normal Blood Pressure 154/79 H Blood Pressure Mean 104 Blood Pressure Source Monitor Blood Pressure Position Semi-Fowlers Blood Pressure Location Left Arm Pulse Ox 100 Oxygen Delivery Method Room Air Weight Weight: 159 lb 2.78 oz Body Mass Index (BMI) 24.9 Physical Exam Const alert, oriented x3, no apparent distress and healthy appearing General Appearance: cooperative; Negative for combative or lethargic Orientation / Consciousness: awake Exam Limitations: no limitations HEENT Head and Scalp: normocephalic and atraumatic Eyes EOMs intact bilaterally General Eye: normal appearance of both eyes Neck full ROM, no lymphadenopathy and thyroid normal General: trachea midline; Negative for lymphadenopathy or tenderness Thyroid: thyroid normal Resp normal respiratory effort and no use of accessory muscles Effort and Inspection: Negative for labored, stridor or audible wheezes Cardio regular rate and regular rhythm Back/Spine Cervical Spine: cervical ROM normal Extremity full ROM, normal capillary refill and no clubbing, cyanosis or edema Skin no rashes or lesions noted and no wounds Neuro oriented x3, CN's II-XII intact bilaterally, no focal motor deficits and no sensory deficits noted Psych thought process normal, cooperative, affect normal, speech normal and activity/motor behavior normal Results Lab / Micro Data 05/05/24 06:53 05/05/24 06:53 Assessment & Plan Assessment/Plan (1) ESRD (end stage renal disease) on dialysis: PLAN: -right arm fistula, stage I basilic -takes tacrolimus for prior transplant; reinforce incision closure with nylon
[2024-05-05 07:29] LABS: Bedside Glucose 126 mg/dL (74-106)
--- NOTE | 2024-05-05 07:31 | PCM.PRE.AN2 ---
ASA Classification* ASA Classification ASA Classification: 3 Assessment & Plan Anesthesia* Anesthesia Assessment Anesthesia Assessment: Discussed sedation and/or anesthesia options, risks, benefits, and alternatives with patient/parents/legal guardian/POA. Questions invited. The patient/parents/legal guardian/POA seems to understand and agrees to proceed with anesthesia plan. Reviewed the physical assessment, medical history, allergy history and patient home medications list prior to surgery/procedure/anesthetic and documented any changes. Performed airway and anesthesia risk assessments. Anesthesia Type Anesthesia Type: MAC (see written pre anesthesia record for full assessment ) Anesthesia Focused Assessment* Temperature: 97.9 F Pulse Rate: 74 Blood Pressure: 154/79 Respiratory Rate: 18 Pulse Ox: 100 Airway Assessment Mouth opens: >3 cm Mallampati Score: II Focused Labs Anesthesia Preop lab: CBC WBC 6.0 K/mm3 (4.4-11.0) 04/28/23 05:47 RBC 3.12 M/mm3 (4.6-6.2) L 04/28/23 05:47 Hgb 9.1 g/dL (13.0-16.5) L 04/28/23 05:47 Hct 28.6 % (40-54) L 04/28/23 05:47 Plt Count 101 K/mm3 (150-450) L 04/28/23 05:47 CHEMISTRY Potassium 4.5 mmol/L (3.5-5.1) 04/28/23 05:47 Sodium 139 mmol/L (136-145) 04/28/23 05:47 Magnesium 2.5 mg/dL (1.6-2.6) 04/27/23 05:30 Phosphorus 4.3 mg/dL (2.5-4.9) 04/27/23 05:30 BUN 85 mg/dL (7-18) H 04/28/23 05:47 Creatinine 4.11 mg/dL (0.70-1.30) H 04/28/23 05:47 Glucose 121 mg/dL (74-106) H 04/28/23 05:47 POC Glucose 126 mg/dL (74-106) H 05/05/24 07:04 COAG PT 13.0 SECONDS (11.7-14.9) 04/26/23 13:02 Pre-Assessment Diagnosis/Proposed Procedure Planned Operative Procedure(s): RIGHT ARM AV FISTULA CREATION Anesthesia History Anesthesia History - production administrator: Anesthesia History - production administrator Hx Hospitalization Yes: 09/2023 FLUID OVERLOAD 05/01/24 10:01 Any Problems With Anesthesia No 05/01/24 10:01 Cholinesterase deficiency No 05/01/24 10:01 You/Your Family Experience No 05/01/24 10:01 fever (hyperthermia) with Relationship Recent Exposure to Contagious No 05/05/24 06:51 Disease Does patient have nerve No 05/01/24 10:01 stimulator Patient instructed to have device shut off --Does patient have Pacemaker No 05/05/24 06:51 or ICD? When Was Last Pacemaker Check QUESTION #4 FULL TEXT: You/Your Family Experience fever (hyperthermia) with Anesthesia Last Oral Intake Last Oral intake: Last Oral Intake NPO since 21:00 05/05/24 06:51 Meds taken in AM with sips of Yes 05/05/24 06:51 water? Meds patient instructed to cellcept, coreg, protonix, 05/05/24 06:51 take am of surgery midodrine, diltiazem, tacrolimus PONV PONV - production administrator: PONV - production administrator Female No 05/01/24 10:01 HX of Motion Sickness No 05/01/24 10:01 HX of N/V After Surgery No 05/01/24 10:01 Non-Smoker Yes 05/01/24 10:01 Duration of Surgery greater Yes 05/01/24 10:01 than 60 minutes Number of Risk Factors 2 05/01/24 10:01 PONV Score Moderate Risk 05/01/24 10:01 Height & Weight Height & Weight: Anesthesia: Height & Weight Height 5 ft 7 in 05/05/24 06:51 Weight: 72.2 kg 05/05/24 06:51 Body Mass Index (BMI) 24.9 05/05/24 06:51 Respiratory Assessment Respiratory Assessment - production administrator: Respiratory Tract Infection Hx - production administrator Hx Respiratory Tract Infection No 05/01/24 10:01 STOP Sleep Apnea STOP Sleep Apnea - production administrator: STOP Sleep Apnea - production administrator Hx Hypertension Yes: CONTROLLED WITH MED 05/01/24 10:01 Hx Sleep Apnea No 05/01/24 10:01 CPAP BIPAP Do you snore loudly (louder No 05/01/24 10:01 than talking or can be heard Do you often feel tired/ Yes 05/01/24 10:01 fatigued/ sleepy during daytime? Has anyone observed you stop No 05/01/24 10:01 breathing during sleep? STOP Results Positive 05/01/24 10:01 QUESTION #5 FULL TEXT : Do you snore loudly (louder than talking or can be heard through closed doors)? 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 Specify any problems Hx of Preganancy in last 3 N/A 05/01/24 10:01 Months Nurse Filling Out Transfusion DSCHRIBER 05/01/24 10:01 & Questions: Date: 05/01/24 05/01/24 10:01 Time: 10:07 05/01/24 10:01 Patient unable to answer at this time (ie. confused, unrespo /Reproduction History /Reproductive History - production administrator: /Reproductive Hx- production administrator Hx Now No 05/01/24 10:01 Gestational Age (in weeks): EDC: Hx Hx Para Hx Section SAB No 05/01/24 10:01 Active Medications Active Medications: Current Medications Generic Name Dose Route Start Last Admin Trade Name Freq PRN Reason Stop Dose Admin Cefazolin Sodium 2 gm/ Sodium 110 mls @ 150 mls/hr 05/05/24 07:30 Chloride IV 05/05/24 08:13 PREOP ONE Sodium Chloride 500 mls @ 15 mls/hr 05/05/24 06:30 05/05/24 07:07 IV 15 mls/hr .[id number] HIRAM Administration KVO PFSH Medical History Loss of hearing Wears glasses Wears dentures Anxiety Depression Alcohol use Insulin dependent diabetes mellitus Uses wheelchair Walker as ambulation aid Back pain Dietary restriction History of ulceration Gastric reflux Shortness of breath on exertion History of renal dialysis History of edema History of echocardiogram Cardiology follow-up encounter Arthritis DVT (deep venous thrombosis) TIA (transient ischemic attack) Coronary artery disease Congestive heart failure Cirrhosis Hemochromatosis Non-smoker Hyperlipidemia Hypertension Stroke/cerebrovascular accident Home Medications ?Medication ?Instructions ?Recorded ?Last Taken ?Type aspirin 81 mg tablet 81 mg PO DAILY 08/22/21 05/04/24 History atorvastatin 40 mg tablet 40 mg PO QHS 08/22/21 Unknown History cholecalciferol (vitamin D3) 125 125 mcg PO DAILY 08/22/21 Unknown History mcg (5,000 unit) tablet (Vitamin D3) sodium bicarbonate 650 mg tablet 650 mg PO TID 08/22/21 Unknown History acetaminophen 500 mg capsule 1,000 mg PO Q6H PRN fever or pain 04/26/23 Unknown History pyridoxine (vitamin B6) 100 mg 100 mg PO DAILY 04/26/23 Unknown History tablet (Vitamin B-6) insulin glargine 100 unit/mL (3 4 unit subcut QHS 03/03/24 05/04/24 History mL) subcutaneous pen (Lantus Solostar U-100 Insulin) insulin lispro 100 unit/mL 1 sliding scale dose subcut TID 03/03/24 Unknown History subcutaneous pen (Humalog KwikPen (U-100) Insulin) midodrine 5 mg tablet 5 mg PO BID 03/03/24 05/05/24 History tamsulosin 0.4 mg capsule 0.4 mg PO QHS 03/03/24 Unknown History torsemide 20 mg tablet 20 mg PO BID 03/03/24 Unknown History carvedilol 12.5 mg tablet 12.5 mg PO BID 05/01/24 05/05/24 History clopidogrel 75 mg tablet 75 mg PO DAILY 05/01/24 05/04/24 History diltiazem HCl 240 mg 240 mg PO DAILY 05/01/24 05/05/24 History capsule,extended release 24 hr mycophenolate mofetil 250 mg 500 mg PO BID 05/01/24 05/05/24 History capsule pantoprazole 40 mg tablet,delayed 40 mg PO DAILY 05/01/24 05/05/24 History release sertraline 25 mg tablet 25 mg PO DAILY 05/01/24 Unknown History tacrolimus 1 mg capsule, 1 mg PO BID 05/01/24 05/05/24 History immediate-release Allergy/AdvReac Type Severity Reaction Status Date / Time No Known Allergies Allergy Verified 05/05/24 06:47 Surgical History (Updated 05/01/24 @ 10:20 by Rupali Link) History of cardiac catheterization Hx of colonoscopy History of coronary artery stent placement History of embolic filter insertion History of herniorrhaphy History of appendectomy History of cholecystectomy History of liver transplant Social History household members: spouse Smoking Status: Never smoker alcohol intake: never substance use type: does not use Review of Systems (Anesthesia) ROS Narrative System reviewed and no additional complaints, except as documented.
[2024-05-05] MEDS: Cefazolin 2 GM in 0.9% Normal Saline (100mL Bag) 100 ML IV (07:35)
[2024-05-05 07:56] LABS: Anion Gap 7 (5-15); BUN 12 mg/dL (7-18); BUN/Creat Ratio 4.6 RATIO (10-20); Calcium,Total 10.4 mg/dL (8.5-10.1); Chloride 104 mmol/L (98-107); EST Glomerular Filtration Rate 25 mL/min (>60); Est Glom Filt Rate - Afr Amer 31 mL/min (>60); Estimated Creatinine Clearance 21.54 ml/min; Glucose 123 mg/dL (74-106); Potassium 3.4 mmol/L (3.5-5.1); Sodium Level 141 mmol/L (136-145)
[2024-05-05] MEDS: Heparin Injection (Vial) 5,000 UNIT/ML VIAL 5000 UNIT (08:05)
[2024-05-05] MEDS: Bupivacaine 0.25% 30 ML Vial (08:05)
[2024-05-05] MEDS: Lidocaine 1% (20 ml mdv) 20 ML Vial (08:05)
--- NOTE | 2024-05-05 09:16 | EX.PCM.DISCH ---
Discharge Instructions Diet Discharge Diet: No restrictions Activity Lifting Restrictions: do not lift > 20 lbs with right arm for 4 weeks Additional Activity Instructions:: do not submerge incision for 4 weeks Dressing / Incision Call your doctor if your incision/area has: Sudden Increased Bleeding, Increased Pain/ Swelling, Increased Redness and Foul Smelling Discharge Call your doctor if you observe: Fever of 101 or Higher, Coldness, Increased Pain and Numbness or Tingling Remove Dressing in: 3 days Cleanse incision/area with: Soap & Water Follow Up Care Test Results: Test results from this visit will be discussed in further detail at your follow-up appointment, if applicable. Discharge Plan Admission Attending Provider: Bo Baxter Primary Care Provider: Sanju Fiore Instructions Print Language: Bolivian Discharge Orders/Prescriptions Prescriptions: New oxycodone 5 mg tablet 5 mg PO Q8H PRN (Reason: pain) 3 Days Qty: 9 0RF Continued insulin glargine [Lantus Solostar U-100 Insulin] 100 unit/mL (3 mL) insulin pen 4 unit subcut QHS Patient Comments: 1/2 dose 05/04/24 insulin lispro [Humalog KwikPen Insulin] 100 unit/mL insulin pen 1 sliding scale dose subcut TID midodrine 5 mg tablet 5 mg PO BID tamsulosin 0.4 mg capsule 0.4 mg PO QHS torsemide 20 mg tablet 20 mg PO BID atorvastatin 40 mg tablet 40 mg PO QHS Patient Comments: TAKE 1 TABLET BY MOUTH DAILY AT BEDTIME sodium bicarbonate 650 mg tablet 650 mg PO TID Patient Comments: TAKE 1 TABLET BY MOUTH TWICE DAILY DIRECTED aspirin 81 mg Tablet 81 mg PO DAILY cholecalciferol (vitamin D3) [Vitamin D3] 125 mcg (5,000 unit) Tablet 125 mcg PO DAILY pyridoxine (vitamin B6) [Vitamin B-6] 100 mg tablet 100 mg PO DAILY acetaminophen 500 mg capsule 1,000 mg PO Q6H PRN (Reason: fever or pain) diltiazem HCl 240 mg capsule,extended release 24hr 240 mg PO DAILY carvedilol 12.5 mg tablet 12.5 mg PO BID mycophenolate mofetil 250 mg capsule 500 mg PO BID clopidogrel 75 mg tablet 75 mg PO DAILY tacrolimus 1 mg capsule 1 mg PO BID pantoprazole 40 mg tablet,delayed release (DR/EC) 40 mg PO DAILY sertraline 25 mg tablet 25 mg PO DAILY Referrals / Follow Up: Sanju Fiore MD [Primary Care Provider] - Disposition Disposition (needs filled in before D/C Order can be placed): Home, Self Care
--- NOTE | 2024-05-05 09:20 | OP.PCM_ITS ---
Report of Operation Date of Procedure: 05/05/24 Pre-Operative Diagnosis: ESRD Post-Operative Diagnosis: Same Surgery/Procedure Performed:: right stage I basilic fistula creation Surgeon: Bo Baxter Type of Anesthesia: Local and MAC Estimated Blood Loss (mL): 6 Description of Procedure: HPI: Patient is a 79-year-old male with end-stage renal disease currently on dialysis via tunneled IJ catheter. He had vein mapping which revealed an adequate right basilic vein. He presents now for fistula creation. Description of procedure: Upon today informed consent and verification correct patient procedure site patient taken to the operating room where he was positioned prepped and draped in usual sterile fashion. Timeout was performed and moderate sedation administered by anesthesia. Ultrasound used to evaluate the basilic vein which was found to be adequate and continuous up to the axilla and in close proximity to the brachial artery just distal to the antecubital crease. Skin overlying the vessels anesthetized 1% lidocaine and transverse incision made 1 fingerbreadth distal to the antecubital crease. Bovie left cautery is then used dissect down through the subcutaneous tissue and self- retaining retractors put in position. Sharp dissection then used to dissect free the medial cubital branch and a right angle used to place a vessel loop. Dissection was carried down to the fascia and the fascia was incised in a cruciate configuration exposing the brachial artery. Sharp dissection used to dissect free the brachial artery proximal and distal with care taken to identify protect adjacent vein and nerve structures. A right angle was replaced vessel proximally distally the patient was heparinized allowed to circulate for 3 minutes. The cubital branch was then ligated distally in the field and divided and then dilated to 3 and half millimeters and flushed with heparinized saline. It was then marked to maintain orientation and the brachial artery was occluded with Vesseloops. A longitudinal arteriotomy was created with an 11 blade and extended with Petit scissors. The vein was then beveled to match the arteriotomy and anastomosis performed using a 6-0 Prolene in a running fashion. Prior to completing suture line vessels are backbled and after completing the suture line satisfactory stasis was noted. There is a palpable thrill throu ghout the basilic vein and Doppler signal at the radial artery at the wrist was unchanged from preop and did not augment with fistula occlusion. Heparin was then reversed with protamine and the incision inspected for hemostasis. The incision was then closed with 3-0 Vicryl, 4 Monocryl reinforced with 3-0 nylon and Dermabond for the skin. The patient was then taken the recovery room with anticipated discharge to home.
--- NOTE | 2024-05-05 09:35 | PCM.POST.ANE ---
Anesthesia: Postop Eval I Current Vital Signs Temperature: 97.2 F Pulse Rate: 70 Blood Pressure: 130/66 Respiratory Rate: 14 Pulse Ox: 100 Oxygen Delivery Method: Room Air Assessment Airway patent: Yes Spontaneous unlabored respirations: Yes Mental status: Awake and Calm nausea: No Vomiting: No Anesthesia Complication: No Fluid Hydration Crystalloid volume administer (ml): 300 Total IV fluid infused: 300 Progress Note Anesthesia document: Postop Eval 1 completed: Yes
--- NOTE | 2024-05-05 15:23 | POSTOPAN2_ITS ---
Anesthesia Postop Eval I Sum Postop Eval Completion status Anesthesia document: Postop Eval 1 completed: Yes Anesthesia Postop Eval I Summary Anesthesia Postop Eval I Summary: Anesthesia Postop Eval I: Assessment Summary Airway patent Yes 05/05/24 09:36 SEALER [email or web address].[email or web address] Spontaneous unlabored Yes 05/05/24 09:36 SEALER SANDER.[email or web address] respirations Mental status Awake,Calm 05/05/24 09:36 SEALER [email or web address].GDOTT nausea No 05/05/24 09:36 SEALER SANDER.GDOTT Vomiting No 05/05/24 09:36 SEALER SANDER.GDOTT Anesthesia Postop Eval I: Fluid Summary Crystalloid volume administer 300 05/05/24 09:36 SEALER SANDER.GDOTT (ml) Colloids volume administered ( ml) Blood Product volume administered (ml) Total IV fluid infused 300 05/05/24 09:36 SEALER SANDER.GDOTT Anesthesia Postop Eval I: Summary Notes Anesthesia Complication No 05/05/24 09:36 SEALER SANDER.GDOTT Anesthesia Complication Comment: Post-operative progress note Anesthesia: Postop Eval II Evaluation Mental status: Awake and Calm Pain Level: 1 nausea: No Vomiting: No Complications Anesthesia Complication: No
--- NOTE | 2024-05-05 15:23 | PCM.POSTANE2 ---
Anesthesia Postop Eval I Sum Postop Eval Completion status Anesthesia document: Postop Eval 1 completed: Yes Anesthesia Postop Eval I Summary Anesthesia Postop Eval I Summary: Anesthesia Postop Eval I: Assessment Summary Airway patent Yes 05/05/24 09:36 CIGAR PACKING EXAMINER.[email or web address] Spontaneous unlabored Yes 05/05/24 09:36 CIGAR PACKING EXAMINER.GDOTT respirations Mental status Awake,Calm 05/05/24 09:36 CIGAR PACKING EXAMINER.GDOTT nausea No 05/05/24 09:36 CIGAR PACKING EXAMINER.GDOTT Vomiting No 05/05/24 09:36 CIGAR PACKING EXAMINER.GDOTT Anesthesia Postop Eval I: Fluid Summary Crystalloid volume administer 300 05/05/24 09:36 CIGAR PACKING EXAMINER.GDOTT (ml) Colloids volume administered ( ml) Blood Product volume administered (ml) Total IV fluid infused 300 05/05/24 09:36 CIGAR PACKING EXAMINER.GDOTT Anesthesia Postop Eval I: Summary Notes Anesthesia Complication No 05/05/24 09:36 CIGAR PACKING EXAMINER.GDOTT Anesthesia Complication Comment: Post-operative progress note Anesthesia: Postop Eval II Evaluation Mental status: Awake and Calm Pain Level: 1 nausea: No Vomiting: No Complications Anesthesia Complication: No
== END 2024-05-05 10:53 | disposition home or self-care (01) ==
LOC: SDC 06:25 → AC 06:25
PROVIDERS: PCP Family Medicine; Referring Provider Surgery Trauma Surgery; Visit Provider Surgery Trauma Surgery
PROC: (CPT 36819; principal; 2024-05-05 07:15)
DX: I13.2 Hypertensive heart and chronic kidney disease with heart failure and with stage 5 chronic kidney disease, or end stage renal disease (principal); N18.6 End stage renal disease; Z94.4 Liver transplant status; I50.9 Heart failure, unspecified; E11.22 Type 2 diabetes mellitus with diabetic chronic kidney disease; Z79.4 Long term (current) use of insulin; Z79.82 Long term (current) use of aspirin; E78.5 Hyperlipidemia, unspecified; I25.10 Atherosclerotic heart disease of native coronary artery without angina pectoris; Z99.2 Dependence on renal dialysis; Z86.73 Personal history of transient ischemic attack (TIA), and cerebral infarction without residual deficits; Z86.718 Personal history of other venous thrombosis and embolism; Z95.5 Presence of coronary angioplasty implant and graft; Z90.49 Acquired absence of other specified parts of digestive tract
CPT/HCPCS: 36819; 01844; 80048; 82962; 85027; A4648; J7040; J2405

== ENCOUNTER 2024-06-01 11:01 | Inpatient (IN) | payer MEDICARE, SELFPAY ==
[2024-06-01] VITALS (8 sets, daily range): BP systolic 122–189; BP diastolic 56–104; PULSE 61–78; RESP 16–21; TEMP 35.8–36.8; O2SAT 95–99; BMI 25.9; BMI 25.8
--- NOTE | 2024-06-01 11:21 | EX.ED.DYSGE1 ---
HPI History of Present Illness Chief Complaint: Weakness [facility] Medical History Loss of hearing Wears glasses Wears dentures Anxiety Depression Alcohol use Insulin dependent diabetes mellitus Uses wheelchair Walker as ambulation aid Back pain Dietary restriction History of ulceration Gastric reflux Shortness of breath on exertion History of renal dialysis History of edema History of echocardiogram Cardiology follow-up encounter Arthritis DVT (deep venous thrombosis) TIA (transient ischemic attack) Coronary artery disease Congestive heart failure Cirrhosis Hemochromatosis Non-smoker Hyperlipidemia Hypertension Stroke/cerebrovascular accident Home Medications ?Medication ?Instructions ?Recorded ?Last Taken ?Type aspirin 81 mg tablet 81 mg PO DAILY 08/22/21 05/04/24 History atorvastatin 40 mg tablet 40 mg PO QHS 08/22/21 Unknown History cholecalciferol (vitamin D3) 125 125 mcg PO DAILY 08/22/21 Unknown History mcg (5,000 unit) tablet (Vitamin D3) sodium bicarbonate 650 mg tablet 650 mg PO TID 08/22/21 Unknown History acetaminophen 500 mg capsule 1,000 mg PO Q6H PRN fever or pain 04/26/23 Unknown History pyridoxine (vitamin B6) 100 mg 100 mg PO DAILY 04/26/23 Unknown History tablet (Vitamin B-6) insulin glargine 100 unit/mL (3 4 unit subcut QHS 03/03/24 05/04/24 History mL) subcutaneous pen (Lantus Solostar U-100 Insulin) insulin lispro 100 unit/mL 1 sliding scale dose subcut TID 03/03/24 Unknown History subcutaneous pen (Humalog KwikPen (U-100) Insulin) midodrine 5 mg tablet 5 mg PO BID 03/03/24 05/05/24 History tamsulosin 0.4 mg capsule 0.4 mg PO QHS 03/03/24 Unknown History torsemide 20 mg tablet 20 mg PO BID 03/03/24 Unknown History carvedilol 12.5 mg tablet 12.5 mg PO BID 05/01/24 05/05/24 History clopidogrel 75 mg tablet 75 mg PO DAILY 05/01/24 05/04/24 History diltiazem HCl 240 mg 240 mg PO DAILY 05/01/24 05/05/24 History capsule,extended release 24 hr mycophenolate mofetil 250 mg 500 mg PO BID 05/01/24 05/05/24 History capsule pantoprazole 40 mg tablet,delayed 40 mg PO DAILY 05/01/24 05/05/24 History release sertraline 25 mg tablet 25 mg PO DAILY 05/01/24 Unknown History tacrolimus 1 mg capsule, 1 mg PO BID 05/01/24 05/05/24 History immediate-release oxycodone 5 mg tablet 5 mg PO Q8H PRN pain 3 days #9 tabs 05/05/24 Unknown Rx hydralazine 50 mg tablet 50 mg PO Q12.TCU 06/01/24 Unknown History vitamin B complex-vitamin C-folic 1 tab PO DAILY 06/01/24 Unknown History acid 0.8 mg tablet (Jie-Anne-Marie) Allergy/AdvReac Type Severity Reaction Status Date / Time No Known Allergies Allergy Verified 06/01/24 12:18 Surgical History History of cardiac catheterization Hx of colonoscopy History of coronary artery stent placement History of embolic filter insertion History of herniorrhaphy History of appendectomy History of cholecystectomy History of liver transplant Social History household members: spouse Smoking Status: Never smoker alcohol intake: never substance use type: does not use EXAM Physical Exam Const Vital Signs: 06/01/24 11:04 06/01/24 12:13 06/01/24 13:02 Temperature 96.5 F L Temperature Source Temporal Pulse Rate 74 78 Respiratory Rate 18 21 H Respiratory Effort Normal Respiratory Pattern Normal Blood Pressure 189/104 H 159/69 H Blood Pressure Mean 132 99 Pulse Ox 98 95 Oxygen Delivery Method Room Air Room Air [facility] [place] Narrative Medical decision making narrative: HISTORY OF PRESENT ILLNESS: 79-year-old male presents with diffuse weakness. Notes decreased appetite and weakness since he missed dialysis on Saturday. He typically dialysis Saturday. REVIEW OF SYSTEMS: Pertinent positives: Weakness, missed dialysis Pertinent negatives: fever, cough, CP, SOB PHYSICAL EXAM: Nursing triage notes reviewed, Vital signs reviewed Constitutional: please see mdm HENT: MMM Eyes: Pupils equal round and reactive to light, Extraocular muscles intact Neck: No stridor, no JVD, full neck ROM Lungs: Clear to auscultation, No wheezing or rales. No increased work of breathing, no conversational dyspnea, no accessory muscle use, no nasal flaring. No respiratory distress noted Heart: Regular rate and rhythm, No murmurs, No rubs and No gallops, 2+ distal pulses (radial, femoral, posterior tibial) in all extremities Abdomen: Soft, there is no tenderness, rigidity, rebound or guarding, no obvious peritoneal signs, no palpable pulsatile abdominal masses, no auscultated abdominal bruit : No CVAT Extremities: No edema Neuro: No focal neurological deficits, cranial nerves II through XII intact, 5/5 strength in all extremities. Intact sensation to light touch in all extremities, 2+ reflexes bilateral patella tendons. Normal gait. No ataxia. Skin: No rash or lesions noted MEDICAL DECISION MAKING: Chief Complaint: Weakness, missed dialysis External records reviewed: Reviewed vital signs, medication list, allergies,. Reviewed prior echocardiogram showed ejection fraction 55 to 60% Factors affecting care: Hypertension, hyperlipidemia, DVT, ESRD, CHF Social determinants of health: none History obtained from others: none Consults: none MDM Narrative: Patient was initially hypertensive with blood pressure 189/104, otherwise afebrile and nontoxic-appearing. I considered the following differential diagnosis: ACS, arrhythmia, anemia, electro disturbance, dehydration, intra-abdominal pathology, UTI, intracranial hemorrhage, I obtained a broad lab and imaging workup to further elucidate etiology of patient complaints. ALL IMAGES (IF OBTAINED) HAVE BEEN PERSONALLY REVIEWED AND INTERPRETED BY MYSELF. I have personally reviewed the patient's chest x-ray. Chest x-ray is unremarkable for pulmonary edema, pneumothorax, pneumonia or focal cardiopulmonary abnormality. CT scan of the head was negative CT scan abdomen pelvis shows cystitis possible pancreatic abnormality (communicated to hospitalist will continue to evaluate) CBC with baseline anemia, thrombocytopenia BMP with ESRD but no other significant Shelia normalities, no signs of metabolic acidosis or endorgan hypoperfusion Urinalysis with inflammation Urinalysis and CT scan consistent with likely UTI which may be precipitating the patient's weakness. He is immunocompromised on tacrolimus and will require antimicrobial therapy. Given his diffuse weakness and gait abnormality will admit for further evaluation and possible placement. Discussed with hospitalist who agreed with the patient's admission. The patient and/or family, caregivers express understanding. The patient and/or family, caregivers agrees with the plan. Shared decision making: I will have a discussion with the patient and or visitors regarding risk/benefits of further testing or admission. They will be made aware of of the risk/benefits inherent in this decision they will be given the opportunity to voice understanding. Total critical care time today provided was at least 0 minutes. This excludes separately billable procedures. Critical care time (if documented) is secondary to the patient having high probability of clinically significant/life threatening deterioration in the patient's condition which required my urgent intervention. Impression: 1. Weakness 2. UTI 3. End-stage renal disease 4. Thrombocytopenia Dispo: Admit to floor This note was generated with [employer] dictation software. It may contain incorrect words, spelling, and punctuation that were not noted in review of the chart prior to signing. Lab Data Labs: Laboratory Results - last 24 hr 06/01/24 06/01/24 12:08 13:16 WBC 3.9 L RBC 2.92 L Hgb 8.8 L Hct 27.8 L MCV 95.2 H MCH 30.1 MCHC 31.7 L RDW Std Deviation 56.4 H RDW Coeff of Ursula 16.1 H Plt Count 86 L MPV 9.8 Immature Gran % (Auto) 0.800 Neut % (Auto) 64.7 Lymph % (Auto) 21.8 Riley % (Auto) 9.9 Eos % (Auto) 2.3 Baso % (Auto) 0.5 Absolute Neuts (auto) 2.5 Absolute Lymphs (auto) 0.84 Nucleated RBC % 0 Differential Comment SCANNED Platelet Estimate MOD DEC Ovalocytes 1+ Crenated Cell 2+ Schistocytes RARE Sodium 138 Potassium 4.0 Chloride 103 Carbon Dioxide 28.0 Anion Gap 7 BUN 25 H Creatinine 5.21 H Estim Creat Clear Calc 10.75 Est GFR (MDRD) Af Amer 14 L Est GFR (MDRD) Non-Af 11 L BUN/Creatinine Ratio 4.8 L Glucose 118 H Calcium 11.3 H Troponin I High Sens 30 Urine Color Yellow Urine Clarity Sl. Cloudy Urine pH 7.0 Ur Specific Lee 1.010 Urine Protein 30 H Urine Glucose (UA) Normal Urine Ketones Negative Urine Occult Blood 10 H Urine Nitrite Negative Urine Bilirubin Negative Urine Urobilinogen Normal Ur Leukocyte Esterase 500 H Radiography Diagnostic Testing: Clinical Impression(s) from Imaging Studies Brain CT 06/01/24 11:56 IMPRESSION: Small vessel ischemia. Stable encephalomalacia within the right occipital lobe consistent with an old infarct. Opacification of the mastoid air cells, more pronounced on the right consistent with a history of mastoiditis. Electronically Signed: Lluvia Ornelas MD at 13:34 EDT , Abdomen/Pelvis CT 06/01/24 11:57 IMPRESSION: Interval worsening of extensive pancreatic ductal dilatation associated with calcifications throughout the pancreas including within the pancreatic duct and pancreatic atrophy, consider MRI with contrast and MRCP for cannot exclude an underlying neoplastic process. Bladder wall thickening, may be secondary to a history of cystitis of uncertain chronicity. Pericardial effusion. Small bilateral pleural effusions associated with minimal lower lobe dependent consolidation. Stable bilateral L5 pars defects associated with a stable grade 1 anterior spondylolisthesis of L5 on S1. Atherosclerosis. Electronically Signed: Lluvia Ornelas MD at 14:07 EDT , Chest X-Ray 06/01/24 13:00 IMPRESSION: Small right pleural effusion. Stable cardiomegaly. Electronically Signed: Lluvia Ornelas MD at 13:37 EDT , Discharge Plan Triage Chief Complaint: Weakness ED Provider: Ranjit Uribe Dx/Rx/DC Orders Prescriptions: No Action insulin glargine [Lantus Solostar U-100 Insulin] 100 unit/mL (3 mL) insulin pen 4 unit subcut QHS Patient Comments: 1/2 dose 05/04/24 insulin lispro [Humalog KwikPen Insulin] 100 unit/mL insulin pen 1 sliding scale dose subcut TID midodrine 5 mg tablet 5 mg PO BID tamsulosin 0.4 mg capsule 0.4 mg PO QHS torsemide 20 mg tablet 20 mg PO BID atorvastatin 40 mg tablet 40 mg PO QHS Patient Comments: TAKE 1 TABLET BY MOUTH DAILY AT BEDTIME sodium bicarbonate 650 mg tablet 650 mg PO TID Patient Comments: TAKE 1 TABLET BY MOUTH TWICE DAILY DIRECTED aspirin 81 mg Tablet 81 mg PO DAILY cholecalciferol (vitamin D3) [Vitamin D3] 125 mcg (5,000 unit) Tablet 125 mcg PO DAILY pyridoxine (vitamin B6) [Vitamin B-6] 100 mg tablet 100 mg PO DAILY acetaminophen 500 mg capsule 1,000 mg PO Q6H PRN (Reason: fever or pain) Jie-Anne-Marie 0.8 mg tablet 1 tab PO DAILY hydralazine 50 mg tablet 50 mg PO Q12.TCU diltiazem HCl 240 mg capsule,extended release 24hr 240 mg PO DAILY carvedilol 12.5 mg tablet 12.5 mg PO BID mycophenolate mofetil 250 mg capsule 500 mg PO BID clopidogrel 75 mg tablet 75 mg PO DAILY tacrolimus 1 mg capsule 1 mg PO BID pantoprazole 40 mg tablet,delayed release (DR/EC) 40 mg PO DAILY sertraline 25 mg tablet 25 mg PO DAILY oxycodone 5 mg tablet 5 mg PO Q8H PRN (Reason: pain) 3 Days Qty: 9 0RF Primary Care Provider: Sanju Fiore Referrals: Sanju Fiore MD [Primary Care Provider] - Print Language: [place]
--- NOTE | 2024-06-01 11:56 | EKG12_ITS ---
Test Reason : Blood Pressure : / mmHG Vent. Rate : 071 BPM Atrial Rate : 071 BPM P-R Int : 204 ms QRS Dur : 094 ms QT Int : 430 ms P-R-T Axes : 026 -05 103 degrees QTc Int : 467 ms Normal sinus rhythm Nonspecific ST and T wave abnormality Prolonged QT Abnormal ECG Confirmed by Otsi Wolf ([id number]), news copy editor TALISHA MELCHOR ([id number]) on 06/02/2024 8:26:22 AM Referred By: Confirmed By:Otis Wolf
--- NOTE | 2024-06-01 11:56 | CT_ITS ---
INDICATION: WEAKNESS EXAMINATION: CT BRAIN - CT Head or Brain W/O Contrast Injection TECHNIQUE: Multiple axial images were obtained of the head without intravenous contrast. The protocol utilizes one or more of the following dose reduction techniques: automated exposure control, adjustment of mA and/or kV according to patient size,and/or use of iterative reconstruction technique. IV Contrast dosage and agent: None. RADIATION DOSAGE (If Supplied By Facility): CTDIvol = ( 44.99 ) mGy, DLP = ( 863.6 ) mGycm COMPARISON: October 26, 2019 FINDINGS: BRAIN PARENCHYMA: No intra- or extra-axial hemorrhage. There are patchy foci of low attenuation within the white matter of the cerebral hemispheres, a nonspecific finding most commonly reflecting small vessel ischemia. There is stable encephalomalacia within the right occipital lobe consistent with an old infarct. No evidence of acute infarct. No intracranial mass or mass effect. There is preservation of the abad/white matter interface. Posterior fossa structures are unremarkable. CSF SPACES: Appropriate for age. No hydrocephalus. Basal cisterns are patent. CALVARIUM, SKULL BASE, PARANASAL SINUSES AND MASTOID AIR CELLS: There is opacification of the right mastoid air cells. There is trace opacification of the left mastoid air cells. No discrete lytic or blastic abnormalities. ORBITS: Both globes, extraocular muscles, optic nerves and retrobulbar fat appear unremarkable. ASPECTS Score for Acute Strokes: 10 CT/Brain/Head without Contrast IMPRESSION: Small vessel ischemia. Stable encephalomalacia within the right occipital lobe consistent with an old infarct. Opacification of the mastoid air cells, more pronounced on the right consistent with a history of mastoiditis. Electronically Signed: Lluvia Ornelas MD at 13:34 EDT ,
--- NOTE | 2024-06-01 11:57 | CT_ITS ---
INDICATION: diarrhea, diffuse abdominal distention EXAMINATION: CT ABDOMEN AND PELVIS WITHOUT CONTRAST - CT Abdomen And Pelvis W/O Contrast Injection TECHNIQUE: Helically acquired images were obtained of the abdomen and pelvis without oral or IV contrast. The protocol utilizes one or more of the following dose reduction techniques: automated exposure control, adjustment of mA and/or kV according to patient size,and/or use of iterative reconstruction technique. IV Contrast dosage and agent: None. Oral contrast: None. RADIATION DOSAGE (If Supplied By Facility): CTDIvol = ( 17.84 ) mGy, DLP = ( 940.2 ) mGycm COMPARISON: August 22, 2021 FINDINGS: LOWER CHEST: There are small bilateral pleural effusions associated with lower lobe dependent consolidation. There is a moderate-sized pericardial effusion. There are coronary artery calcifications. LIVER: Homogeneous. No focal mass. GALLBLADDER AND BILIARY TREE: There are surgical clips within the right upper quadrant near the torrey hepatis and gallbladder fossa that likely secondary to prior closed appendectomy. There is persistent extrahepatic dilatation. PANCREAS: There is atrophy of the pancreas and worsening ductal dilatation of the pancreatic duct associated with coarse calcification within the pancreatic duct and scattered throughout the pancreas. SPLEEN: Normal size without focal cystic or solid mass. ADRENAL GLANDS: No nodules. KIDNEYS AND URETERS: Normal renal size and position. No hydronephrosis. There are stable bilateral renal cysts. PERITONEUM: No ascites or free air. No other fluid collection. BOWEL: No evidence of acute appendicitis. No stomach or bowel distension. There are diverticula arising from the colon. No focal inflammatory change. LYMPH NODES: No enlarged mesenteric or retroperitoneal lymph nodes. VESSELS: Aorta is non-dilated. There are peripheral calcifications of the abdominal aorta and its branches URINARY BLADDER: There is mild bladder wall thickening. REPRODUCTIVE ORGANS: No pelvic masses. ABDOMINAL WALL: No discrete abdominal or pelvic wall hernia. BONES: There are stable bilateral L5 pars defects associated with a stable grade 1 anterior spondylolisthesis of L5 on S1. There is a stable L1 superior endplate deformity. CT/Abdomen/Pelvis without Cont IMPRESSION: Interval worsening of extensive pancreatic ductal dilatation associated with calcifications throughout the pancreas including within the pancreatic duct and pancreatic atrophy, consider MRI with contrast and MRCP for cannot exclude an underlying neoplastic process. Bladder wall thickening, may be secondary to a history of cystitis of uncertain chronicity. Pericardial effusion. Small bilateral pleural effusions associated with minimal lower lobe dependent consolidation. Stable bilateral L5 pars defects associated with a stable grade 1 anterior spondylolisthesis of L5 on S1. Atherosclerosis. Electronically Signed: Lluvia Ornelas MD at 14:07 EDT ,
[2024-06-01 12:28] LABS: Absolute Lymphocyte Count 0.84 X10^3/uL (0.83-4.51); Absolute Neutrophil Count 2.5 X10^3/uL (2.0-7.7); Basophil# 0.02 X10^3/uL; Basophil% 0.5 % (0-1); Eosinophil# 0.09 X10^3/uL; Eosinophils% 2.3 % (0-5); Hematocrit 27.8 % (40-54); Hemoglobin 8.8 g/dL (13.0-16.5); Lymphocyte # 0.84 X10^3/ul (0.83-4.51); Lymphocyte % 21.8 % (19-41); Mean Corp Hgb Conc 31.7 g/dL (32-36); Mean Corpuscular Hgb 30.1 pg (27.0-32.0); Mean Corpuscular Volume 95.2 fL (80-94); Mean Platelet Vol. 9.8 fl (6.2-12.0); Monocyte# 0.38 X10^3/uL; Monocyte% 9.9 % (0-10); NRBC Flagged by Analyzer 0 % (0-5); Neutrophil # 2.49 X10^3/uL (2.7-7.7); Neutrophil % 64.7 % (47-70); POSITIVE COUNT YES; Platelet Count 86 K/mm3 (150-450); RBC Distribution Width CV 16.1 % (11.6-14.6); RBC Distribution Width SD 56.4 fl (35.1-43.9); Red Blood Count 2.92 M/mm3 (4.6-6.2); White Blood Count 3.9 K/mm3 (4.4-11.0)
[2024-06-01 12:30] LABS: Differential Indicated SCAN CRITERIA MET
[2024-06-01 12:45] LABS: Anion Gap 7 (5-15); BUN 25 mg/dL (7-18); BUN/Creat Ratio 4.8 RATIO (10-20); Calcium,Total 11.3 mg/dL (8.5-10.1); Chloride 103 mmol/L (98-107); Creatinine, Serum 5.21 mg/dL (0.70-1.30); EST Glomerular Filtration Rate 11 mL/min (>60); Est Glom Filt Rate - Afr Amer 14 mL/min (>60); Estimated Creatinine Clearance 10.75 ml/min; Glucose 118 mg/dL (74-106); Sodium Level 138 mmol/L (136-145); Troponin-I HS 30 pg/mL (3.0-78.0)
--- NOTE | 2024-06-01 13:00 | RAD_ITS ---
INDICATION: weakness EXAMINATION/TECHNIQUE: X-RAY - XR Chest 1 View COMPARISON: April 26, 2023 FINDINGS: LINES/DEVICES: There is a right-sided central venous catheter in place terminating within the expected region of the superior vena cava. LUNGS: There is a small right pleural effusion. No pneumothorax. MEDIASTINUM AND CARDIOVASCULAR STRUCTURES: There is stable cardiomegaly. Central airways and mediastinal contour are unremarkable. BONES AND SOFT TISSUES: Unremarkable. RAD/Chest 1 View (Portable) IMPRESSION: Small right pleural effusion. Stable cardiomegaly. Electronically Signed: Lluvia Ornelas MD at 13:37 EDT ,
[2024-06-01 13:04] LABS: Crenated RBC 2+; Differential Comment SCANNED; Ovalocyte 1+; Platelet Estimate MOD DEC (ADEQ); Schistocytes RARE
[2024-06-01 13:31] LABS: Color, Urine Yellow (Yellow); Glucose, Dipstick Normal (Normal); Ketone-Dipstick Negative (Negative); Leukocyte Esterase-Dipstick 500 /ul (Negative); Nitrite-Dipstick Negative (Negative); Occult Blood-Urine 10 /ul (Negative); Protein-Dipstick 30 mg/dl (Negative); Urine Bilirubin Dipstick Negative (Negative); Urine Clarity Sl. Cloudy (Clear); Urine Urobilinogen Normal (Normal)
--- NOTE | 2024-06-01 15:01 | PCM.HP.STD ---
HPI - General General Date of Admission: 06/01/24 Date of Service: 06/01/24 Chief Complaint: Generalized weakness for 1 week, could not hold him up/ambulate HPI Narrative SELVIN SANON, is a 79 M with multiple comorbidities came to ED for feeling very weak with decreased appetite and decreased food and water intake. Patient is accompanied by his and daughter in ED. He had diarrhea for 2 days and diarrhea has stopped still very weak, could not stand up or ambulate. According to his , whenever he tries to stand up or walk, he slid down on his knees. In the past he also had fall and injured his right side of ribs. His right knee feels more weaker than the left. He had multiple imagings in ED which did not show any acute abnormality. Twelve-lead EKG individually reviewed. Normal sinus rhythm. Labs and imaging reviewed and discussed assessment plan [facility] Medical History Loss of hearing Wears glasses Wears dentures Anxiety Depression Alcohol use Insulin dependent diabetes mellitus Uses wheelchair Walker as ambulation aid Back pain Dietary restriction History of ulceration Gastric reflux Shortness of breath on exertion History of renal dialysis History of edema History of echocardiogram Cardiology follow-up encounter Arthritis DVT (deep venous thrombosis) TIA (transient ischemic attack) Coronary artery disease Congestive heart failure Cirrhosis Hemochromatosis Non-smoker Hyperlipidemia Hypertension Stroke/cerebrovascular accident Home Medications ?Medication ?Instructions ?Recorded ?Last Taken ?Type aspirin 81 mg tablet 81 mg PO DAILY 08/22/21 05/04/24 History atorvastatin 40 mg tablet 40 mg PO QHS 08/22/21 Unknown History cholecalciferol (vitamin D3) 125 125 mcg PO DAILY 08/22/21 Unknown History mcg (5,000 unit) tablet (Vitamin D3) sodium bicarbonate 650 mg tablet 650 mg PO TID 08/22/21 Unknown History acetaminophen 500 mg capsule 1,000 mg PO Q6H PRN fever or pain 04/26/23 Unknown History pyridoxine (vitamin B6) 100 mg 100 mg PO DAILY 04/26/23 Unknown History tablet (Vitamin B-6) insulin glargine 100 unit/mL (3 4 unit subcut QHS 03/03/24 05/04/24 History mL) subcutaneous pen (Lantus Solostar U-100 Insulin) insulin lispro 100 unit/mL 1 sliding scale dose subcut TID 03/03/24 Unknown History subcutaneous pen (Humalog KwikPen (U-100) Insulin) midodrine 5 mg tablet 5 mg PO BID 03/03/24 05/05/24 History tamsulosin 0.4 mg capsule 0.4 mg PO QHS 03/03/24 Unknown History torsemide 20 mg tablet 20 mg PO BID 03/03/24 Unknown History carvedilol 12.5 mg tablet 12.5 mg PO BID 05/01/24 05/05/24 History clopidogrel 75 mg tablet 75 mg PO DAILY 05/01/24 05/04/24 History diltiazem HCl 240 mg 240 mg PO DAILY 05/01/24 05/05/24 History capsule,extended release 24 hr mycophenolate mofetil 250 mg 500 mg PO BID 05/01/24 05/05/24 History capsule pantoprazole 40 mg tablet,delayed 40 mg PO DAILY 05/01/24 05/05/24 History release sertraline 25 mg tablet 25 mg PO DAILY 05/01/24 Unknown History tacrolimus 1 mg capsule, 1 mg PO BID 05/01/24 05/05/24 History immediate-release oxycodone 5 mg tablet 5 mg PO Q8H PRN pain 3 days #9 tabs 05/05/24 Unknown Rx hydralazine 50 mg tablet 50 mg PO Q12.TCU 06/01/24 Unknown History vitamin B complex-vitamin C-folic 1 tab PO DAILY 06/01/24 Unknown History acid 0.8 mg tablet (Jie-Anne-Marie) Allergy/AdvReac Type Severity Reaction Status Date / Time No Known Allergies Allergy Verified 06/01/24 12:18 Surgical History History of cardiac catheterization Hx of colonoscopy History of coronary artery stent placement History of embolic filter insertion History of herniorrhaphy History of appendectomy History of cholecystectomy History of liver transplant Social History household members: spouse Smoking Status: Never smoker alcohol intake: never substance use type: does not use ROS ROS Narrative Constitutional: Reports fatigue and weakness. No fever. HEENT: Reports systems reviewed and no addt'l complaints, except as documented Respiratory/Chest: No acute shortness of breath or respiratory distress or wheezing. CVS: No chest pain pressure or tight Gastrointestinal: Chronic urinary incontinence. Denies coffee ground emesis, hematemesis or vomiting Genitourinary: Denies burning urination or new urinary tract symptoms Musculoskeletal: Chronic right leg feels more weaker than left leg. Fall, actually slid down. Denies acute joint pain or limited range of motion. No acute injury Neurologic: Denies seizure-like symptoms. No acute strokelike symptoms skin: No ulcer. No rash Endocrinology: Reports systems reviewed and no addt'l complaints, except as documented Hematologic/Lymphatic: Reports systems reviewed and no addt'l complaints, except as documented Rest 14 ROS are negative except as mentioned in HPI Vital Signs Vital Signs Vital Signs: 06/01/24 11:04 06/01/24 12:13 06/01/24 13:02 Temperature 96.5 F L Temperature Source Temporal Pulse Rate 74 78 Respiratory Rate 18 21 H Respiratory Effort Normal Respiratory Pattern Normal Blood Pressure 189/104 H 159/69 H Blood Pressure Mean 132 99 Pulse Ox 98 95 Oxygen Delivery Method Room Air Room Air Weight Weight: 165 lb 5.547 oz Body Mass Index (BMI) 25.9 Physical Exam Narrative General: Alert, Oriented x3, Cooperative HEENT: Hard of hearing atraumatic, PERRLA, EOMI, Normocephalic Oral: Oral mucosa dry. No Gingival or Mucosal Lesions/ Ulcerations Neck: Supple, No JVD, Negative Carotid Bruits Chest wall/Lungs: Air entry diminished in right lung bases. No crepitation/rhonchi Cardiovascular: Regular rate, Regular Rhythm, Normal S1, Normal S2, No M/G/R Abdomen: Bowel Sounds Present, Soft, Non Tender, Non-Distended : No dysuria. No renal angle tenderness. No suprapubic tenderness. Extremities: No edema, Capillary Refill Less than 3 Seconds Skin: No rashes, No breakdown Musculoskeletal: Muscle strength 4/5 at right knee and hip, 4+/5 on left hip and knee side. No acute tenderness to Palpation of Joints or Extremities Neurological: Cranial nerves II-XII grossly intact, DTR 2+/4. No acute focal neurological deficit. Psych/Mental Status: Flat affect Results Lab / Micro Data 06/01/24 12:08 06/01/24 12:08 Labs: Laboratory Results - last 24 hr 06/01/24 12:08: WBC 3.9 L, RBC 2.92 L, Hgb 8.8 L, Hct 27.8 L, MCV 95.2 H, MCH 30.1, MCHC 31.7 L, RDW Std Deviation 56.4 H, RDW Coeff of Ursula 16.1 H, Plt Count 86 L, MPV 9.8, Immature Gran % (Auto) 0.800, Neut % (Auto) 64.7, Lymph % (Auto) 21.8, [place] % (Auto) 9.9, Eos % (Auto) 2.3, Baso % (Auto) 0.5, Absolute Neuts (auto) 2.5, Absolute Lymphs (auto) 0.84, Nucleated RBC % 0, Differential Comment SCANNED, Platelet Estimate MOD DEC, Ovalocytes 1+, Crenated Cell 2+, Schistocytes RARE, Sodium 138, Potassium 4.0, Chloride 103, Carbon Dioxide 28.0, Anion Gap 7, BUN 25 H, Creatinine 5.21 H, Estim Creat Clear Calc 10.75, Est GFR (MDRD) Af Amer 14 L, Est GFR (MDRD) Non-Af 11 L, BUN/Creatinine Ratio 4.8 L, Glucose 118 H, Calcium 11.3 H, Troponin I High Sens 30 06/01/24 13:16: Urine Color Yellow, Urine Clarity Sl. Cloudy, Urine pH 7.0, Ur Specific [place] 1.010, Urine Protein 30 H, Urine Glucose (UA) Normal, Urine Ketones Negative, Urine Occult Blood 10 H, Urine Nitrite Negative, Urine Bilirubin Negative, Urine Urobilinogen Normal, Ur Leukocyte Esterase 500 H Imaging Radiology Impression Brain CT 06/01/24 11:56 IMPRESSION: Small vessel ischemia. Stable encephalomalacia within the right occipital lobe consistent with an old infarct. Opacification of the mastoid air cells, more pronounced on the right consistent with a history of mastoiditis. Electronically Signed: Lluvia Ornelas MD at 13:34 EDT , Abdomen/Pelvis CT 06/01/24 11:57 IMPRESSION: Interval worsening of extensive pancreatic ductal dilatation associated with calcifications throughout the pancreas including within the pancreatic duct and pancreatic atrophy, consider MRI with contrast and MRCP for cannot exclude an underlying neoplastic process. Bladder wall thickening, may be secondary to a history of cystitis of uncertain chronicity. Pericardial effusion. Small bilateral pleural effusions associated with minimal lower lobe dependent consolidation. Stable bilateral L5 pars defects associated with a stable grade 1 anterior spondylolisthesis of L5 on S1. Atherosclerosis. Electronically Signed: Lluvia Ornelas MD at 14:07 EDT , Chest X-Ray 06/01/24 13:00 IMPRESSION: Small right pleural effusion. Stable cardiomegaly. Electronically Signed: Lluvia Ornelas MD at 13:37 EDT , Assessment & Plan Assessment/Plan (1) Failure to thrive: (2) General weakness: PLAN: Plan This is a 79-year-old male being admitted for generalized weakness, fatigue, diarrhea with dehydration 1. Acute fatigue probably due to dehydration from diarrhea: Patient is being admitted on MedSurg floor. IV fluid normal saline ordered. Monitor intake and output. 2. Acute debility/generalized weakness, could not ambulate/stand up, exacerbated by diarrhea: PT and OT ordered. Patient's , POA and daughter said they do not want to send him to SNF., Probably home with home health will be okay. Soil Engineer consult. 3. ESRD on dialysis Saturday and Saturday: Patient could not go for dialysis on last Saturday because he was feeling very weak. Discussed with Dr. Kennedy and plan for hemodialysis today. Patient also had right arm AV fistula creation by Dr. Bo Tierney on 05/05/2024. Fistula has good thrill and bruit and seems mature. Vascular surgery consult as follow-up removal of sutures. 4. History of alcoholic cirrhosis with liver transplant: Patient follows [facility]. Liver profile and PT/INR ordered. His [facility] tissue coordinator name is Jie. He gets monthly blood work to check tacrolimus level. Resume home antirejection immunosuppression medications. 5. Anemia of chronic disease and chronic thrombocytopenia probably from cirrhosis/antirejection medication: Admitting H&H 8.8/27.8%. His baseline hemoglobin runs between 9 to 9.5 g%. Patient also has chronic thrombocytopenia related to cirrhosis. Is steadily it is decreasing, it was 110 in April 2023 currently 86,000. 6. Hypertension: Blood pressure was high systolic in 180s. Most recent is 159/69 mmHg. Home medications resumed with dosage adjustment as needed 7. Dyslipidemia -Patient is on statin therapy, continued at home dose 8. DVT prophylaxis: Patient has severe thrombocytopenia. With ESRD, heparin 5000 units subcutaneous twice daily with instruction to discontinue if platelet count drops less than 50,000 or hemoglobin less than 8 g% Living will/advanced directive/end of life care: Patient does have living will or advanced directive. Power of product development carpenter for his health is his . After discussion of benefits/risks procedures involved with full code, DNR CC arrest and DNR CC, the patient opted for full code. Patient does want artificial life support including intubation, tube feed, ventilator and/chest compression, central venous catheter, vasopressor and DC shock if needed Total time spent in [id number] encounter in discussion of advanced directive 17 minutes. Laboratory Results 06/01/24 12:08: WBC 3.9 L, RBC 2.92 L, Hgb 8.8 L, Hct 27.8 L, MCV 95.2 H, MCH 30.1, MCHC 31.7 L, RDW Std Deviation 56.4 H, RDW Coeff of Ursula 16.1 H, Plt Count 86 L, MPV 9.8, Immature Gran % (Auto) 0.800, Neut % (Auto) 64.7, Lymph % (Auto) 21.8, [place] % (Auto) 9.9, Eos % (Auto) 2.3, Baso % (Auto) 0.5, Absolute Neuts (auto) 2.5, Absolute Lymphs (auto) 0.84, Nucleated RBC % 0, Differential Comment SCANNED, Platelet Estimate MOD DEC, Ovalocytes 1+, Crenated Cell 2+, Schistocytes RARE, Sodium 138, Potassium 4.0, Chloride 103, Carbon Dioxide 28.0, Anion Gap 7, BUN 25 H, Creatinine 5.21 H, Estim Creat Clear Calc 10.75, Est GFR (MDRD) Af Amer 14 L, Est GFR (MDRD) Non-Af 11 L, BUN/Creatinine Ratio 4.8 L, Glucose 118 H, Calcium 11.3 H, Troponin I High Sens 30 06/01/24 13:16: Urine Color Yellow, Urine Clarity Sl. Cloudy, Urine pH 7.0, Ur Specific [place] 1.010, Urine Protein 30 H, Urine Glucose (UA) Normal, Urine Ketones Negative, Urine Occult Blood 10 H, Urine Nitrite Negative, Urine Bilirubin Negative, Urine Urobilinogen Normal, Ur Leukocyte Esterase 500 H Interpretation Summary The estimated ejection fraction is 55=60 %. Normal LV systolic function No prior study to compare Charges/Coding Visit Charges Inpatient E&M: 89087 Init Hosp L3 Procedures Hospitalists Procedures: 99348 Advncd Care Plan 30 Min
[2024-06-01] MEDS: Ceftriaxone 1 GM/50 ML BAG IV (15:22)
--- NOTE | 2024-06-01 15:35 | RAD_ITS ---
STUDY: X-RAY - UNILATERAL RIBS ( RIGHT ) REASON FOR EXAM: Male, 79 years old. Fall. TECHNIQUE: 4 views of the right ribs. COMPARISON: None. FINDINGS: Intact visualized right ribs without a demonstrated fracture. The visualized lung is clear and expanded. There is a right-sided internal jugular central venous catheter in place. There are atherosclerotic calcifications of the aortic arch. RAD/Ribs Unil 2V No CXR IMPRESSION: No demonstrated right rib fracture. Electronically Signed: Randy Lopez MD at 8:18 EDT ,
[2024-06-01 16:08] LABS: International Normalized Ratio 1.2; Prothrombin Time (Protime)PT. 14.8 SECONDS (11.7-14.9)
[2024-06-01 16:35] LABS: AST(SGOT) 11 U/L (15-37); Alanine Aminotransfer ALT/SGPT 11 U/L (16-61); Albumin, Serum 3.1 g/dL (3.2-5.0); Alkaline Phosphatase 81 U/L (45-117); Bilirubin, Direct 0.29 mg/dL (0.00-0.30); Globulin 2.4 g/dL (2.2-4.2); Magnesium 1.5 mg/dL (1.6-2.6); Phosphorus 3.4 mg/dL (2.5-4.9); Protein, Total 5.5 g/dL (6.4-8.2)
[2024-06-01] MEDS: 0.9% Normal Saline (1000mL) 1,000 ML 100 ML IV (16:41)
--- OUTSIDE RECORDS SUMMARY | 2024-06-01 17:55 | XMS RPT_ITS | CCD ---
Author Organization [facility] Care Team Providers Care Support Dba Name Role Phone SELF, SELF Referring Unavailable SANJU BANERJEE Primary Care Unavailable Adebayo PRETTY, Sanju Webb Primary Care Provider Antoine Estrada RN Unavailable Unavailable Jonah Graves MD Unavailable Javy ASHRAF, Carmen Unavailable UnavailSanju Coy MD Primary Care Provider Antoine Estrada RN Unavailable Unavailable Jonah Graves MD Unavailable Javy ASHRAF, Carmen Unavailable UnavailSanju Coy MD Primary Care Provider Jonah Graves MD Unavailable Sanju Banerjee MD Primary Care Provider Antoine Estrada RN Unavailable Unavailable Jonah Graves MD Unavailable Daryl ASHRAF, Tracy Webb Unavailable Unavailable Jonah Graves MD Unavailable Daryl ASHRAF, Tracy Webb Unavailable Unavailable Antoine Estrada RN Unavailable Unavailable Jonah Dawson MD Unavailable Marla ASHRAF, Lakesha Unavailable Unavailable ANTONINA GUTIERREZ Attending Unavailable SANJU BANERJEE Primary Care Unavailable REYMUNDO GOLDBERG Consulting Unavailable JONAH ALANIZ Admitting Unavailable Honey Evans RN Unavailable Ricky ScionHealthAnabel Unavailable Josep Valencia RN Unavailable Unavailnara Brito RN, Tracy Jon Unavailable Unavailable Adebayo PRETTY, Sanju Webb Primary Care Provider Honey Evans RN Unavailable Josep Valencia RN Unavailable Unavailnara Banerjee MD, Sanju A Primary Care Provider KIM NEVILLEICA A Referring Unavailable ADEBAYO, SANJU A Primary Care Unavailable SIUDALBA, NATHALY A Referring Unavailable ADEBAYO, SANJU A Primary Care Unavailable ADEBAYO, SANJU A Attending Unavailable ADEBAYO, SANJU A Primary Care Unavailable SIUDOWSKI, NATHALY A Referring Unavailable ADEBAYO, SANJU A Primary Care Unavailable ADEBAYO, SANJU A Primary Care Unavailable SIERENDIRA, NATHALY A Referring Unavailable ADEBAYO, SANJU A Primary Care Unavailable JAMIN, NATHALY A Referring Unavailable ADEBAYO, SANJU A Primary Care Unavailable JAMIN, NATHALY A Referring Unavailable HOA TORREZ JR Referring Unavailable ADEBAYO, SANJU A Primary Care Unavailable ADEBAYO, SANJU A Primary Care Unavailable HOA TORREZ JR Referring Unavailable ADEBAYO, SANJU A Primary Care Unavailable CLAUDIA ROBERTS Referring Unavailable ADEBAYO, SANJU A Primary Care Unavailable ADEBAYO, SANJU A Primary Care Unavailable SIERENDIRA, NATHALY A Referring Unavailable ADEBAYO, SANJU A Attending Unavailable ADEBAYO, SANJU A Primary Care Unavailable RAISA CHAN Referring Unavailable ADEBAYO, SANJU A Primary Care Unavailable ZIADA, TRACYD M Admitting Unavailable ZIADA, KHALED M Attending Unavailable ADEBAYO, SANJU A Primary Care Unavailable AFRICA WHITAKER M Attending Unavailable ZIADA, KHALED M Admitting Unavailable ADEBAYO, SANJU A Primary Care Unavailable ADEBAYO, SANJU A Primary Care Unavailable EGHTESAD, MAO Referring Unavailable EGHTESAD, MAO Attending Unavailable EGHTESAD, MAO Admitting Unavailable ALEC, JAEKEUN Admitting Unavailable ALEC, JAEKEUN Attending Unavailable ALEC, JAEKEUN Referring Unavailable ADEBAYO, SANJU A Primary Care Unavailable RAISA CHAN Attending Unavailable ADEBAYO, SANJU A Primary Care Unavailable SELF Referring Unavailable ADEBAYO, SANJU A Primary Care Unavailable SIERENDIRA, NATHALY A Referring Unavailable ADEBAYO, SANJU A Primary Care Unavailable SIERENDIRA, NATHALY A Referring Unavailable ADEBAYO, SANJU A Primary Care Unavailable SIUDOWSKI, NATHALY A Referring Unavailable NOMAN FONTENOT Attending Unavailable ADEBAYO, SANJU A Primary Care Unavailable SIUDOWSKI, NATHALY A Referring Unavailable ADEBAYO, SANJU A Primary Care Unavailable SIUDOWSKI, NATHALY A Referring Unavailable ADEBAYO, SANJU A Primary Care Unavailable SIUDOWSKI, NATHALY A Referring Unavailable ADEBAYO, SANJU A Primary Care Unavailable ADEBAYO, SANJU A Attending Unavailable ADEBAYO, SANJU A Primary Care Unavailable ADEBAYO, SANJU A Primary Care Unavailable GINETTE DEE Attending Unavailable ADEBAYO, SANJU A Primary Care Unavailable SIUDOWSKI, NATHALY A Referring Unavailable ZIADA, KHALED M Referring Unavailable ADEBAYO, SANJU A Primary Care Unavailable ZIADA, KHALED M Referring Unavailable ZIADA, KHALED M Attending Unavailable ADEBAYO, SANJU A Primary Care Unavailable ENDER PANG Attending Unavailable ADEBAYO, SANJU A Primary Care Unavailable ADEBAYO, SANJU A Attending Unavailable ADEBAYO, SANJU A Primary Care Unavailable VITO BEAUCHAMP Referring Unavailable ADEBAYO, SANJU A Primary Care Unavailable ADEBAYO, SANJU A Attending Unavailable ADEBAYO, SANJU A Referring Unavailable ADEBAYO, SANJU A Primary Care Unavailable RALEIGH TOBIN Referring Unavailable ADEBAYO, SANJU A Primary Care Unavailable JONAH DAWSON Referring Unavailable ADEBAYO, SANJU A Primary Care Unavailable JONAH DAWSON Attending Unavailable RADHA JONAH Referring Unavailable ADEBAYO, SANJU A Primary Care Unavailable ZIADA, KHALED M Referring Unavailable ADEBAYO, SANJU A Primary Care Unavailable ZIADA, KHALED M Attending Unavailable ZIADA, KHALED M Referring Unavailable ADEBAYO, SANJU A Primary Care Unavailable ZIADA, KHALED M Referring Unavailable ADEBAYO, SANJU A Primary Care Unavailable ADEBAYO, SANJU A Attending Unavailable CLAUDIA ROBERTS Referring Unavailable ADEBAYO, SANJU A Primary Care Unavailable ADEBAYO, SANJU A Referring Unavailable ADEBAYO, SANJU A Primary Care Unavailable NOMAN FONTENOT Attending Unavailable ADEBAYO, SANJU A Primary Care Unavailable ADEBAYO, SANJU A Primary Care Unavailable ENDER PANG Referring Unavailable ENDER PANG Attending Unavailable ADEBAYO, SANJU A Primary Care Unavailable SIERENDIRA, NATHALY A Referring Unavailable ADEBAYO, SANJU A Referring Unavailable ADEBAYO, SANJU A Primary Care Unavailable ADEBAYO, SANJU A Attending Unavailable BRADLY PRICE Attending Unavailable ADEBAYO, SANJU A Referring Unavailable ADEBAYO, SANJU A Primary Care Unavailable ADEBAYO, SANJU A Primary Care Unavailable SIUDOWSKI, NATHALY A Referring Unavailable ADEBAYO, SANJU A Primary Care Unavailable SIUDOWSKI, NATHALY A Referring Unavailable VITO BEAUCHAMP Attending Unavailable ADEBAYO, SANJU A Primary Care Unavailable VITO BEAUCHAMP Referring Unavailable ADEBAYO, SANJU A Primary Care Unavailable SIUDOWSKI, NATHALY A Referring Unavailable ADEBAYO, SANJU A Primary Care Unavailable SIUDOWSKI, NATHALY A Referring Unavailable ADEBAYO, SANJU A Attending Unavailable ADEBAYO, SANJU A Primary Care Unavailable ADEBAYO, SANJU A Primary Care Unavailable SIUDOWSKI, NATHALY A Referring Unavailable LIMA, S NANCI Referring Unavailable ADEBAYO, SANJU A Primary Care Unavailable LIMA, S NANCI Referring Unavailable RALEIGH TOBIN Attending Unavailable ADEBAYO, SANJU A Primary Care Unavailable ADEBAYO, SANJU A Primary Care Unavailable SIUDOWSKI, NATHALY A Referring Unavailable ADEBAYO, SANJU A Primary Care Unavailable SRAVANI BERNABE Referring Unavailab le ADEBAYO, SANJU A Primary Care Unavailable ADEBAYO, SANJU A Attending Unavailable ADEBAYO, SANJU A Primary Care Unavailable EFREN ERAZO Admitting Unavailable EFREN ERAZO Attending Unavailable ADEBAYO, SANJU A Primary Care Unavailable JONAH DAWSON Admitting Unavailable JONAH DAWSON Attending Unavailable ADEBAYO, SANJU A Primary Care Unavailable ADEBAYO, SANJU A Primary Care Unavailable SIUDOWSKI, NATHALY A Referring Unavailable ADEBAYO, SANJU A Primary Care Unavailable SIUDOWSKI, NATHALY A Referring Unavailable ADEBAYO, SANJU A Primary Care Unavailable SIUDOWSKI, NATHALY A Referring Unavailable ADALGISASEE WebbO Admitting Unavailable ANTONINA GUTIERREZ Referring Unavailable DEMETRIUS HARRIS Attending Unavailable ADEBAYO, SANJU A Primary Care Unavailable SRAVANI BERNABE Attending Unavailab le Junna, Ines Admitting Unavailable ADEBAYO, SANJU A Primary Care Unavailable RIASA CHAN Attending Unavailable MARION BALDERAS Admitting Unavailable ADEBAYO, SANJU A Primary Care Unavailable ADEBAYO, SANJU A Primary Care Unavailable SIUDOWSKI, NATHALY A Referring Unavailable ADEBAYO, SANJU A Primary Care Unavailable SIUDOWSKI, NATHALY A Referring Unavailable Allergies Allergy Classification Reported Allergen(s) Allergy Type Date of Onset Reaction(s) Facility Spironolactone (1 source) Spironolactone Drug Allergy 3 Other: See Comments [facility] Work Phone: (20 sources) Seasonal allergy; Translations: [SEASONAL ALLERGIES] Allergy to substance 7 Cough [facility] Work Phone: (20 sources) Spironolactone; Translations: [SPIRONOLACTONE] Drug Allergy 3 Other: See Comments [facility] Work Phone: Medications Current Medications Medication Drug Class(es) Dates Sig (Normalized) Sig (Original) aspirin 81 mg chewable tablet (20 sources) Platelet Aggregation Inhibitor, Nonsteroidal Anti-inflammatory Drug Start: 11-19-2019 End: 07-08-2024 take 1 tablet by mouth once daily aspirin 81 mg chewable tablet Take 1 tablet by mouth once daily. 90 tablet 3 07/09/2023 07/08/2024 Active Comment on above: Take 1 tablet by ofelia th once daily. atorvastatin 40 mg oral tablet (20 sources) HMG-CoA Reductase Inhibitor Start: 06-20-2023 take 1 tablet by mouth once daily at bedtime atorvastatin (LIPITOR) 40 mg tablet Take 1 tablet by mouth daily at bedtime. 90 tablet 1 02/16/2024 Active Start: 03-31-2021 End: 12-06-2022 take 1 tablet by mouth once daily at bedtime atorvastatin (LIPITOR) 40 mg tablet Take 1 tablet by mouth daily at bedtime. 30 tablet 11 03/31/2021 04/16/2022 Discontinued Comment on above: Take 1 tablet by ofelia th daily at bedtime. azithromycin 250 mg oral tablet (1 source) Macrolide Antimicrobial Start: 11-18-19 End: 11-23-19 azithromycin (ZITHROMAX Z-TRE) 250 mg tablet Take 2 tablets day one, then, 1 tablet daily until gone. 6 tablet 0 11/17/2021 11/22/2021 Active Comment on above: Take 2 tablets day o ne, then, 1 tablet daily until gone. b complex, c, folic acid 1 mg renal vitamins (NEPHROCAPS) 1 mg capsule (20 sources) Start: 10-17-19 take 1 capsule by mouth once daily b complex, c, folic acid 1 mg renal vitamins (NEPHROCAPS) 1 mg capsule Take 1 capsule by mouth once daily. 30 capsule 10/17/2023 Active Start: 10-17-2023 take 1 capsule by mo uth once daily b complex, c, folic acid 1 mg renal vitamins (NEPHROCAPS) 1 mg capsule Take 1 capsule by mouth once daily. 30 capsule 0 10/17/2023 Suspended Start: 10-17-2023 take 1 capsule by mo uth once daily b complex, c, folic acid 1 mg renal vitamins (NEPHROCAPS) 1 mg capsule Take 1 capsule by mouth once daily. 30 capsule 0 10/17/2023 Active Start: 10-17-2023 End: 11-16-2023 take 1 capsule by mouth once daily b complex, c, folic acid 1 mg renal vitamins (NEPHROCAPS) 1 mg capsule Take 1 capsule by mouth once daily. 30 capsule 0 10/17/2023 11/16/2023 Active Comment on above: Take 1 capsule by mo ut once daily. benoxinate hydrochloride 4 mg/ml / fluorescein sodium 2.5 mg/ml ophthalmic solution (2 sources) Diagnostic Dye Start: 07-24-2023 End: 07-24-2023 fluorescein-benoxi brett 0.25-0.4 % 1 Drop (FLURESS) Start: 04-18-2023 End: 04-18-2023 fluorescein-benoxinate 0.25- 0.4 % 1 Drop (FLURESS) Blood Glucose Control, Isabel l soln (4 sources) Start: 12-12-2023 End: 01-11-2024 Blood Glucose Control, Isabel l soln 1 Each three times a day. 1 Each 1 12/12/2023 01/11/2024 Active Blood Pressure Monitor (20 sources) Start: 06-25-2022 Blood Pressure Monitor Indications: Essential hypertension 1 Each twice daily. 1 Kit 06/25/2022 Active Start: 06-25-2022 Blood Pressure Monitor Indications: Essential hypertension 1 Each twice daily. 1 Kit 0 06/25/2022 Suspended Start: 06-25-2022 Blood Pressure Monitor Indications: Essential hypertension 1 Each twice daily. 1 Kit 0 06/25/2022 Active Start: 10-31-2019 End: 06-25-2022 Blood Pressure Monitor 1 Eac h twice daily. 1 Kit 10/31/2019 06/25/2022 Discontinued Start: 10-31-2019 End: 06-25-2022 Blood Pressure Monitor 1 Eac h twice daily. 1 Kit 0 10/31/2019 06/25/2022 Discontinued Start: 10-31-2019 Blood Pressure Monitor 1 Each twice daily. 1 Kit 0 10/31/2019 Suspended Start: 10-31-2019 Blood Pressure Monitor 1 Each twice daily. 1 Kit 0 10/31/2019 Active Comment on above: 1 Each twice daily. Blood-Glucose Meter (4 sources) Start: 12-12-2023 End: 01-11-2024 Blood-Glucose Meter 1 Each daily at 6 am. Test Three times a day. 1 Each 0 12/12/2023 01/11/2024 Active carvedilol 25 mg oral tablet (20 sources) alpha-Adrenergic Lalo, beta-Adrenergic Lalo Start: 04-03-2024 take 0.5 tablet by mouth twice daily carvedilol (COREG) 25 mg tablet Take 0.5 tablets by mouth two times a day. 04/03/2024 Active Start: 06-20-2023 End: 04-03-2024 take 1 tablet by mouth twice daily carvedilol (COREG) 25 mg tablet Take 1 tablet by mouth two times a day. 180 tablet 1 02/16/2024 04/03/2024 Discontinued (Adjust Sig - Block E-Cancel) Start: 05-18-2021 End: 12-06-2022 take 1 tablet by mouth twice daily carvedilol (COREG) 25 mg tablet Take 1 tablet by mouth twice daily. 60 tablet 5 05/18/2021 11/23/2021 Discontinued Comment on above: Take 1 tablet by ofelia th twice daily. Take 1 tablet by ofelia th two times a day. cephalexin 500 mg oral capsule (1 source) Cephalosporin Antibacterial Start: 12-23-19 End: 12-30-19 take 1 capsule by mouth twice daily cephALEXin (KEFLEX) 500 mg capsule Take 1 capsule by mouth two times a day for 7 days. 14 capsule 0 12/23/2023 12/30/2023 Active cholecalciferol 0.125 mg oral tablet (20 sources) Vitamin D Start: 06-20-20 take 1 tablet by mouth once daily Cholecalciferol, Vitamin D3, 5,000 unit tab Take 1 tablet by mouth once daily. 0 06/20/2016 Active Comment on above: Take 1 tablet by ofelia once daily. 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 90 tablet 3 07/09/2023 07/08/2024 Active Comment on above: Take 1 tablet by ofelia once daily. 24 hr dilTIAZem hydrochloride 240 mg extended release oral capsule (20 sources) Calcium Channel Lalo Start: 01-09-20 End: 02-04-20 take 1 capsule by mouth once daily dilTIAZem CD (CARDIZEM CD, CARTIA XT) 240 mg 24 hr capsule Take 1 capsule by mouth once daily. 90 capsule 3 02/04/2024 Active Start: 03-31-2021 End: 03-15-2022 take 1 capsule by mouth once daily dilTIAZem CD (CARDIZEM CD, CARTIA XT) 240 mg 24 hr capsule Take 1 capsule by mouth once daily. 30 capsule 11 03/31/2021 03/15/2022 Discontinued Comment on above: Take 1 capsule by [facility] once daily. docusate sodium 100 mg oral capsule (4 sources) Start: End: take 1 capsule by mouth every twelve hours as needed docusate sodium (COLACE) 100 mg capsule Take 1 capsule by mouth twice daily as needed for constipation for up to 7 days. 0 12/19/2021 12/26/2021 Active Comment on above: Take 1 capsule by [facility] twice daily as needed for constipation for up to 7 days. doxycycline hyclate 100 mg oral tablet (6 sources) Tetracycline-class Drug Start: End: take 1 tablet by mouth twice daily doxycycline (VIBRA-TABS) 100 mg tablet Take 1 tablet by mouth two times a day for 7 days. 14 tablet 0 11/23/2023 11/30/2023 Active Comment on above: Take 1 tablet by ofelia two times a day for 7 days. glucose 4000 mg chewable tablet (20 sources) Start: glucose 4 gram chewable tablet Take 4 tablets by mouth as needed for low blood sugar. 10 tablet 5 12/12/2023 Active 3 ml insulin glargine 100 unt/ml pen injector (20 sources) Insulin Analog Start: End: inject 4 [IU] by subcutaneous injection every twenty-four hours insulin glargine (LANTUS SOLOSTAR U-100 INSULIN) 100 unit/mL (3 mL) Inject 4 Units subcutaneously every 24 hours. 15 mL 1 04/03/2024 04/03/2025 Active Start: 01-10-2024 End: 07-08-2024 inject 6 [IU] by subcutaneous injection every twenty-four hours insulin glargine (LANTUS SOLOSTAR U-100 INSULIN) 100 unit/mL (3 mL) Inject 6 Units subcutaneously every 24 hours. 15 mL 1 01/10/2024 04/03/2024 Discontinued (Adjust Sig - Block E-Cancel) Start: 01-02-2024 End: 02-01-2024 inject 5 [IU] by subcutaneous injection every twenty-four hours insulin glargine (LANTUS SOLOSTAR U-100 INSULIN) 100 unit/mL (3 mL) Inject 5 Units subcutaneously every 24 hours. 15 mL 1 01/10/2024 01/10/2024 Discontinued (Changing Therapy/Dosage Form) Start: 12-12-2023 End: 01-11-2024 inject 8 [IU] by subcutaneous injection every twenty-four hours insulin glargine (LANTUS SOLOSTAR U-100 INSULIN) 100 unit/mL (3 mL) Inject 8 Units subcutaneously every 24 hours. 2.4 mL 0 12/12/2023 01/02/2024 Discontinued (Adjust Sig - Block E-Cancel) Start: 09-27-2023 insulin glargi ne (LANTUS SOLOSTAR U-100 INSULIN) 100 unit/mL (3 mL) Inject 22 Units subcutaneously daily at bedtime. 15 Each 2 09/27/2023 Suspended Comment on above: Inject 22 Units subc utaneously daily at bedtime. isopropyl alcohol 0.7 ml/ml medicated pad (20 sources) Start: alcohol swabs Use with blood glucose test 2 times daily. Insulin Dep? Yes 200 Each 5 12/12/2023 Active midodrine hydrochloride 5 mg oral tablet (10 sources) alpha-Adrenergic Agonist take 1 tablet by mouth once daily midodrine (PROAMITINE) 5 mg tablet Take 5 mg by mouth once daily. Active mycophenolate mofetil 250 mg oral capsule (20 sources) Start: End: take 2 capsules by mouth twice daily mycophenolate mofetil (CELLCEPT) 250 mg capsule Take 2 capsules by mouth two times a day. 120 capsule 11 02/12/2024 Active pantoprazole 40 mg delayed release oral tablet (20 sources) Proton Pump Inhibitor Start: End: take 1 tablet by mouth once daily pantoprazole DR (PROTONIX) 40 mg tablet Take 1 tablet by mouth once daily. 90 tablet 3 11/08/2023 Active Comment on above: Take 1 tablet by ofelia th once daily. perflutren lipid microspheres 1.3 mL in NaCl (PF) 0.9% 10 mL injection (DEFINITY) (20 sources) Start: End: perflutren lipid microspheres 1.3 mL in NaCl (PF) 0.9% 10 mL injection (DEFINITY) Start: 10-26-2021 End: 01-25-2023 perflutren lipid microsphere s 1.3 mL in NaCl (PF) 0.9% 10 mL injection (DEFINITY) Start: 06-17-2021 End: 11-29-2021 perflutren lipid microsphere s 1.3 mL in NaCl (PF) 0.9% 10 mL injection (DEFINITY) Start: 06-17-2021 End: 09-16-2022 perflutren lipid microsphere s 1.3 mL in NaCl (PF) 0.9% 10 mL injection (DEFINITY) phenylephrine hydrochloride 25 mg/ml ophthalmic solution (2 sources) alpha-1 Adrenergic Agonist Start: 07-24-2023 End: 07-24-2023 PHENYLephrine 2.5 % 1 Drop (AK-DILATE, ARNULFO-SYNEPHRINE) Start: 04-18-2023 End: 04-18-2023 PHENYLephrine 2.5 % 1 Drop ( AK-DILATE, ARNULFO-SYNEPHRINE) potassium phosphate 155 mg / sodium phosphate, dibasic 852 mg / sodium phosphate, monobasic 130 mg oral tablet (20 sources) Start: 12-12-2023 take 1 tablet by mouth twice daily phosphorus (PHOSPHA 250 NEUTRAL) 250 mg tablet Take 1 tablet by mouth two times a day. 7 tablet 12/12/2023 Active predniSONE 5 mg oral tablet (14 sources) Start: 12-13-2023 End: 12-31-2023 take 4 tablets by mouth once daily, then take 3 tablets by mouth once daily, then take 2 tablets by mouth once daily, then take 1 tablet by mouth once daily predniSONE (DELTASONE) 5 mg tablet 4 tablets by ORAL/FEEDING TUBE route once daily for 3 days, THEN 3 tablets once daily for 5 days, THEN 2 tablets once daily for 5 days, THEN 1 tablet once daily for 5 days. 42 tablet 0 12/13/2023 12/31/2023 Active Start: 09-27-2023 End: 10-16-2023 take 3 tablets by mouth once daily, then take 2 tablets by mouth once daily, then take 1 tablet by mouth once daily predniSONE (DELTASONE) 5 mg tablet Take 3 tablets by mouth once daily for 5 days, THEN 2 tablets once daily for 7 days, THEN 1 tablet once daily for 7 days. 120 tablet 4 09/27/2023 10/16/2023 Suspended Comment on above: Take 3 tablets by [facility] once daily for 5 days, THEN 2 tablets once daily for 7 days, THEN 1 tablet once daily for 7 days. proparacaine hydrochloride 5 mg/ml ophthalmic solution (1 source) Local Anesthetic Start: 3 End: 3 proparacaine 0.5 % 1 Drop (ALCAINE) sertraline 25 mg oral tablet (20 sources) Serotonin Reuptake Inhibitor Start: 3 End: 4 take 1 tablet by mouth once daily sertraline (ZOLOFT) 25 mg tablet Take 1 tablet by mouth once daily. 30 tablet 5 11/25/2023 Active Comment on above: Take [address] tablet [address] [facility] once daily. sodium bicarbonate 650 mg oral tablet (20 sources) Start: 4 take 1 tablet by mouth three times daily sodium bicarbonate 650 mg tablet Take 1 tablet by mouth three times a day. 90 tablet 3 05/25/2024 Active Start: 09-27-2023 take 1 tablet by ofelia th three times daily sodium bicarbonate 650 mg tablet Take 1 tablet by mouth three times a day. 90 tablet 2 09/27/2023 Suspended Start: 08-06-2023 End: 09-20-2023 take 1 tablet by mouth twice daily sodium bicarbonate 650 mg tablet Take 1 tablet by mouth two times a day. 0 08/06/2023 09/20/2023 Discontinued Start: 12-31-2022 End: 08-06-2023 take 1 tablet by mouth three times daily sodium bicarbonate 650 mg tablet take 1 tablet by mouth three times daily 270 tablet 1 06/28/2023 08/06/2023 Discontinued Start: 08-06-2022 take 1 tablet by ofelia th three times daily sodium bicarbonate 650 mg tablet Take 1 tablet by mouth three times daily. 270 tablet 1 08/06/2022 Active Start: 08-22-2021 End: 05-23-2024 take 1 tablet by mouth three times daily sodium bicarbonate 650 mg tablet Take 1 tablet by mouth three times daily. 90 tablet 0 06/06/2022 Active Start: 06-02-2021 End: 12-19-2021 take 1 tablet by mouth twice daily sodium bicarbonate 650 mg tablet TAKE 1 TABLET BY MOUTH TWICE DAILY DIRECTED 180 tablet 3 06/02/2021 12/19/2021 Discontinued Comment on above: TAKE 1 TABLET BY OFELIA TH TWICE DAILY DIRECTED Take 1 tablet by ofelia th three times daily. TAKE 1 TABLET BY OFELIA TH THREE TIMES DAILY Take 1 tablet by ofelia th two times a day. Take 1 tablet by ofelia th three times a day. 125 ml sodium chloride 9 mg/ml prefilled syringe (20 sources) Start: 02-25-2023 End: 05-26-2024 sodium chloride 0.9 % (flush) 10 mL (BD POSIFLUSH) Start: 06-17-2021 End: 01-25-2023 sodium chloride 0.9 % (flush ) 10 mL (BD POSIFLUSH) sulfamethoxazole 800 mg / trimethoprim 160 mg oral tablet (5 sources) Dihydrofolate Reductase Inhibitor Antibacterial, Sulfonamide Antimicrobial Start: 11-24-2023 End: 12-01-2023 take 1 tablet by mouth once daily sulfamethoxazole-trimethoprim (BACTRIM DS) 800-160 mg per tablet Take 1 tablet by mouth once daily for 7 days. On dialysis days needs to take dose after dialysis. 7 tablet 0 11/24/2023 12/01/2023 Active Comment on above: [facility] On dialysis days needs to take dose after dialysis. tacrolimus 1 mg oral capsule (20 sources) Calcineurin Inhibitor Immunosuppressant Start: 12-12-2023 End: 04-21-2024 take 2 capsules by mouth once daily in the morning, then take 1 capsule by mouth once daily in the evening tacrolimus IR (PROGRAF) 1 mg capsule Indications: Liver replaced by transplant (HCC) Take 2 capsules by mouth daily at 6 am AND 1 capsule daily at 6 pm. 90 capsule 11 04/21/2024 Active Start: 11-08-2023 take 1 capsule by mo [facility] twice daily tacrolimus IR (PROGRAF) 1 mg capsule Take 1 capsule by mouth two times a day. Z94.4 - liver transplant 60 capsule 11 11/08/2023 Suspended Start: 10-31-2023 End: 11-07-2023 take 2 capsules by mouth once daily in the morning, then take 1 capsule by mouth once daily in the evening tacrolimus IR (PROGRAF) 1 mg capsule Take 2 capsules by mouth daily at 6 am AND 1 capsule daily at 6 pm. Z94.4 - liver transplant. 90 capsule 11 10/31/2023 11/07/2023 Discontinued Start: 10-17-2023 End: 01-15-2024 tacrolimus IR (PROGRAF) 1 mg capsule Take 3 capsules by mouth daily at 6 am. Patient should start on October 17, 2023. 90 capsule 2 10/17/2023 10/31/2023 Discontinued (Dosage adjustment) Start: 10-16-2023 End: 01-14-2024 take 1 capsule by mouth once daily in the evening tacrolimus IR (PROGRAF) 1 mg capsule Take 2 capsules by mouth daily at 6 pm. 60 capsule 2 10/16/2023 10/31/2023 Discontinued (Dosage adjustment) Start: 09-04-2023 End: 10-04-2023 take 1 capsule by mouth twice daily tacrolimus IR (PROGRAF) 1 mg capsule Take 2 capsules by mouth two times a day. 120 capsule 11 10/04/2023 Suspended Start: 08-29-2021 End: 12-31-2022 take 1 capsule by mouth twice daily tacrolimus IR (PROGRAF) 0.5 mg capsule Take 1 capsule by mouth twice daily. 60 capsule 11 08/29/2021 12/31/2022 Discontinued Comment on above: Take 1 capsule by mo uth twice daily. Take 1 capsule by mo uth two times a day. Take 2 capsules by m outh two times a day. Take 3 capsules by m outh daily at 6 am. Patient should start on October 17, 2023. Take 2 capsules by m outh daily at 6 pm. Take 2 capsules by m outh daily at 6 am AND 1 capsule daily at 6 pm. Z94.4 - liver transplant. Take 1 capsule by mo uth two times a day. Z94.4 - liver transplant tamsulosin hydrochloride 0.4 mg oral capsule (20 sources) alpha-Adrenergic Lalo Start: End: 5 take 1 capsule by mouth once daily at bedtime tamsulosin (FLOMAX) 0.4 mg Take 1 capsule by mouth daily at bedtime. 90 capsule 1 03/31/2024 09/27/2024 Active Comment on above: Take 1 capsule by mo uth daily at bedtime. take 1 capsule by mo uth daily at bedtime torsemide 20 mg oral tablet (20 sources) Loop Diuretic Start: End: take 2 tablets by mouth once daily torsemide (DEMADEX) 20 mg tablet Take 2 tablets by mouth once daily. 60 tablet 5 11/25/2023 Active Start: 10-16-2023 End: 11-25-2023 take 3 tablets by mouth once daily torsemide (DEMADEX) 20 mg tablet Take 3 tablets by mouth once daily. 90 tablet 0 10/16/2023 11/25/2023 Discontinued Comment on above: Take 3 tablets by mo uth once daily. Take 2 tablets by mo uth once daily. tropicamide 10 mg/ml ophthalmic solution (2 sources) Anticholinergic Start: 07-24-2023 End: 07-24-2023 tropicamide 1 % 1 Drop (MYDRIACYL) Start: 04-18-2023 End: 04-18-2023 tropicamide 1 % 1 Drop (MYDR IACYL) Completed/Discontinued Medications Medication Drug Class(es) Dates Sig (Normalized) Sig (Original) acetaminophen 500 mg oral tablet (20 sources) Start: 12-19-2021 End: 08-06-2023 take 2 tablets by mouth every six hours as needed acetaminophen (TYLENOL) 500 mg tablet Take 2 tablets by mouth every 6 hours as needed for pain. 0 12/19/2021 08/06/2023 Discontinued Comment on above: Take 2 tablets by [facility] every 6 hours as needed for pain. azelastine hydrochloride 0.137 mg/actuat metered dose nasal spray (20 sources) Histamine-1 Receptor Antagonist Start: 06-11-2023 End: 08-30-2023 azelastine 0.1% nasal spray Use 2 Sprays in each nostril as needed. 0 06/11/2023 08/30/2023 Discontinued Start: 05-23-2021 End: 06-11-2023 take 2 spray(s) nasal route twice daily azelastine (ASTELIN) 0.1% nasal spray Use 2 Sprays in each nostril twice daily. 30 mL 05/23/2021 06/11/2023 Discontinued Comment on above: Use 2 Sprays in each nostril twice daily. Use 2 Sprays in each nostril as needed. benzonatate 200 mg oral capsule (12 sources) Non-narcotic Antitussive Start: 1 End: 2 take 1 capsule by mouth every eight hours as needed Benzonatate 200 mg capsule Take 1 capsule by mouth three times daily as needed. 45 capsule 1 05/18/2021 11/27/2021 Discontinued Comment on above: Take 1 capsule by [facility] three times daily as needed. bevacizumab ophthalmic syringe 1.25 mg/0.05 mL (AVASTIN) (2 sources) Start: 3 End: 3 bevacizumab ophthalmic syringe 1.25 mg/0.05 mL (AVASTIN) Start: 04-18-2023 End: 04-18-2023 bevacizumab ophthalmic syrin ge 1.25 mg/0.05 mL (AVASTIN) Blood-Glucose Meter (FREESTY LE LITE METER) monitoring kit (17 sources) Start: 09-27-2023 End: 10-27-2023 Blood-Glucose Meter (FREESTY LE LITE METER) monitoring kit Use as directed to check blood glucose levels three times a day 1 Each 0 09/27/2023 10/27/2023 Start: 09-27-2023 End: 10-27-2023 Blood-Glucose Meter (FREESTY LE LITE METER) monitoring kit Use as directed to check blood glucose levels three times a day 1 Each 0 09/27/2023 10/27/2023 Suspended Start: 09-27-2023 End: 10-27-2023 Blood-Glucose Meter (FREESTY LE LITE METER) monitoring kit Use as directed to check blood glucose levels three times a day 1 Each 0 09/27/2023 10/27/2023 Active Comment on above: Use as directed to c heck blood glucose levels three times a day dext 70/polycarbophil/peg/N aCl (ARTIFICIAL TEAR SOLUTION OPHTHALMIC) (20 sources) End: 08-07-2023 dext 70/polycarbophil/peg/NaCl (ARTIFICIAL TEAR SOLUTION OPHTHALMIC) Use 1 Drop in eyes as needed. 0 08/07/2023 Discontinued dext 70/polycarb ophil/peg/NaCl (ARTIFICIAL TEAR SOLUTION OPHTHALMIC) Use 1 Drop in eyes as needed. 0 Suspended dext 70/polycarb ophil/peg/NaCl (ARTIFICIAL TEAR SOLUTION OPHTHALMIC) Use 1 Drop in eyes as needed. 0 Active Comment on above: Use 1 Drop in eyes a s needed. furosemide 20 mg oral tablet (20 sources) Loop Diuretic Start: 07-17-2023 End: 08-30-2023 furosemide (LASIX) 20 mg tablet Take one tab a day in addition to the 40 mg lasix for 3-5 days with weight at or above 198 lbs till weight is at or below 195 lbs. 30 tablet 3 07/17/2023 08/30/2023 Discontinued Start: 05-02-2023 End: 09-27-2023 take 1 tablet by mouth once daily furosemide (LASIX) 40 mg tablet Take 1 tablet by mouth once daily. 30 tablet 5 05/02/2023 09/27/2023 Discontinued Start: 11-26-2022 take 1 tablet by ofelia th once daily furosemide (LASIX) 20 mg tablet Take 1 tablet by mouth once daily. 90 tablet 1 11/26/2022 Active Start: 06-19-2021 End: 05-31-2022 take 1 tablet by mouth once daily furosemide (LASIX) 20 mg tablet Take 1 tablet by mouth once daily. 30 tablet 2 06/19/2021 11/23/2021 Discontinued Comment on above: Take 1 tablet by ofelia th once daily. Take one tab a day i n addition to the 40 mg lasix for 3-5 days with weight at or above 198 lbs till weight is at or below 195 lbs. gabapentin 100 mg oral capsule (20 sources) Anti-epileptic Agent Start: 08-01-20 End: 08-06-20 take 1 capsule by mouth once daily gabapentin (NEURONTIN) 100 mg capsule Take 100 mg by mouth once daily. 0 08/01/2021 08/06/2023 Discontinued Comment on above: Take 100 mg by mouth once daily. hydrALAZINE hydrochloride 50 mg oral tablet (20 sources) Arteriolar Vasodilator Start: 01-27-20 End: 04-03-20 take 1 tablet by mouth every twelve hours hydrALAZINE (APRESOLINE) 50 mg tablet take 1 tablet by mouth every 12 hours 180 tablet 1 01/27/2024 04/03/2024 Discontinued (Discontinued by another Health Care Provider) Start: 09-27-2023 End: 10-31-2023 take 1 tablet by mouth every twelve hours hydrALAZINE (APRESOLINE) 50 mg tablet Take 1 tablet by mouth every 12 hours. 60 tablet 2 10/31/2023 Active Comment on above: Take 1 tablet by ofelia th every 12 hours. ibuprofen 800 mg oral tablet (13 sources) Nonsteroidal Anti-inflammatory Drug ibuprofen (MOTRIN) 800 mg tablet Take 800 mg by mouth as needed. 0 Suspended Comment on above: Take 800 mg by mouth as needed. insulin lispro 100 unt/ml injectable solution (17 sources) Insulin Analog Start: 024 End: 024 inject 3 [IU] by subcutaneous injection three times daily before mealtime insulin lispro (HUMALOG U-100 INSULIN) 100 unit/mL injection Inject 3 Units subcutaneously three times a day before meals. 4.5 mL 0 01/02/2024 01/10/2024 Discontinued (Clinical Decision) Start: 12-12-2023 End: 01-11-2024 inject 5 [IU] by subcutaneous injection three times daily before mealtime insulin lispro (HUMALOG U-100 INSULIN) 100 unit/mL injection Inject 5 Units subcutaneously three times a day before meals. 4.5 mL 0 12/12/2023 01/02/2024 Discontinued (Adjust Sig - Block E-Cancel) Start: 09-27-2023 insulin lispro (HUMALOG KWIKPEN INSULIN) 100 unit/mL With prednisone 15mg daily: Inject 12 units under the skin daily with meals in addtion to sliding Scale #2. Hold if meal is skipped With prednisone 10mg daily: Inject 10 units under the skin daily with meals in addition to Sliding Scale #2. Hold if meal is skipped With prednisone 5mg daily: Inject 8 units under the skin daily with meals in addition to Sliding Scale #2. Hold if meal is skipped Max daily dose 66 units 15 mL 2 09/27/2023 Suspended Comment on above: With prednisone 15mg daily: Inject 12 units under the skin daily with meals in addtion to sliding Scale #2. Hold if meal is skipped With prednisone 10mg daily: Inject 10 units under the skin daily with meals in addition to Sliding Scale #2. Hold if meal is skipped With prednisone 5mg daily: Inject 8 units under the skin daily with meals in addition to Sliding Scale #2. Hold if meal is skipped Max daily dose 66 units lidocaine 0.05 mg/mg medicated patch (12 sources) Antiarrhythmic, Amide Local Anesthetic Start: 0 End: 2 apply 1 dose transdermal route once daily, then apply 1 dose transdermal route once daily, then apply 1 dose transdermal route every twelve hours lidocaine (LIDODERM) 5 % Apply 1 Patch as directed once daily. Apply 1 Patch as directed once daily on lower back. Remove patch after 12 hours. 14 Patch 4 06/13/2020 11/27/2021 Discontinued Comment on above: Apply 1 Patch as dir ected once daily. Apply 1 Patch as directed once daily on lower back. Remove patch after 12 hours. magnesium/vitamin E/pyridoxine (VITAMIN B6-VITAMIN E-MAGNESIUM ORAL) (20 sources) Start: 2 take 1 tablet by mouth once daily magnesium/vitamin E/pyridoxine (VITAMIN B6-VITAMIN E-MAGNESIUM ORAL) Take 1 tablet by mouth once daily. 0 08/22/2021 Suspended Start: 08-22-2021 take 1 tablet by ofelia once daily magnesium/vitamin E/pyridoxine (VITAMIN B6-VITAMIN E-MAGNESIUM ORAL) Take 1 tablet by mouth once daily. 0 08/22/2021 Active Comment on above: Take 1 tablet by ofelia th once daily. regadenoson (LEXISCAN) 0.4 mg/5 mL syrg (1 source) Start: End: regadenoson (LEXISCAN) 0.4 mg/5 mL syrg Indications: ZULUAGA (dyspnea on exertion) , Orthopnea , Decreased stamina , Shortness of breath Inject 5 mL intravenously one time only for 1 dose. Give IV push over 10 seconds and follow with 5 ml of normal saline 5 mL 06/17/2021 06/17/2021 sirolimus 0.5 mg oral tablet (20 sources) Kinase Inhibitor, mTOR Inhibitor Immunosuppressant Start: End: take 1 tablet by mouth once daily sirolimus (RAPAMUNE) 0.5 mg tablet Take 1 tablet by mouth once daily. [employer] [employer] PAP 90 tablet 3 03/30/2020 06/06/2022 Discontinued Comment on above: Take 1 tablet by ofelia once daily. [employer] [facility] PAP Take by mouth. Take 1 tablet by ofelia once daily. [facility] PAP refill spironolactone 25 mg oral tablet (5 sources) Aldosterone Antagonist Start: 023 End: 023 take 1 tablet by mouth once daily spironolactone (ALDACTONE) 25 mg tablet Take 1 tablet by mouth once daily. 30 tablet 5 05/02/2023 05/10/2023 Discontinued (Adverse Reaction) Comment on above: Take 1 tablet by ofelia once daily. vitamin b6 100 mg oral tablet (20 sources) Start: 020 End: 025 take 1 tablet by mouth once daily pyridoxine, vitamin B6, (VITAMIN B6) 100 mg tablet Indications: Anemia of renal disease , Stage 4 chronic kidney disease (HCC) Take 1 tablet by mouth once daily. 100 tablet 2 01/12/2020 11/25/2023 Discontinued Comment on above: Take 1 tablet by ofelia th once daily. Problems Active Problems Problem Classification Problem Date Documented Date Episodic/Chronic Alcohol-related disorders (20 sources) Alcohol abuse; Translations: [Alcohol abuse, uncomplicated] 08-14-2021 Chronic Aortic; peripheral; and visceral artery aneurysms (20 sources) Dilatation of aorta; Translations: [Aortic ectasia, unspecified site] Onset: 2 10-12-2021 Chronic Chronic kidney disease (20 sources) Chronic kidney disease stage 3B ; Translations: [Stage 3b chronic kidney disease] Onset: 6 Resolved: 1 10-25-2020 Chronic Coagulation and hemorrhagic disorders (20 sources) Lupus anticoagulant disorder; 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] Onset: 4 Resolved: 0 11-04-2019 Chronic Complications of surgical procedures or medical care (3 sources) Hemodialysis-associated hypotension; Translations: [Hypotension of hemodialysis] 10-26-2023 Chronic Congestive heart failure; nonhypertensive (20 sources) Congestive heart failure; Translations: [Heart failure, unspecified] Onset: 3 Resolved: 4 02-23-2023 Chronic Coronary atherosclerosis and other heart disease (20 sources) Coronary atherosclerosis; Translations: [Atherosclerotic heart disease of kaw coronary artery with other forms of angina pectoris] Onset: 2 Resolved: 4 11-29-2021 Chronic Diabetes mellitus with complications (20 sources) Type 2 diabetes mellitus; Translations: [Type 2 diabetes mellitus with diabetic chronic kidney disease] Onset: 7 Resolved: 4 10-25-2020 Chronic Diabetes mellitus without complication (1 source) Diabetes mellitus without complication; Translations: [Type 2 diabetes mellitus with stage 3b chronic kidney disease, without long-term current use of insulin (HCC)] Onset: 1 Disorders of lipid metabolism (20 sources) Mixed hyperlipidemia; Translations: [Mixed hyperlipidemia] Onset: 4 08-24-2015 Chronic Esophageal disorders (20 sources) Gastroesophageal reflux disease without esophagitis; Translations: [Gastro-esophageal reflux disease without esophagitis] Onset: 6 08-24-2015 Chronic Essential hypertension (20 sources) Essential hypertension; Translations: [Essential (primary) hypertension] Onset: 4 10-26-2021 Chronic Genitourinary symptoms and ill-defined conditions (20 sources) Urge incontinence of urine; Translations: [Urge incontinence] Onset: 4 10-26-2023 Chronic Hyperplasia of prostate (20 sources) Benign prostatic hyperplasia; Translations: [Benign prostatic hyperplasia with lower urinary tract symptoms] Onset: 4 10-26-2023 Chronic Hypertension with complications and secondary hypertension (20 sources) Hypertensive renal disease; Translations: [Hypertensive chronic kidney disease with stage 1 through stage 4 chronic kidney disease, or unspecified chronic kidney disease] Onset: 4 10-12-2021 Chronic Immunity disorders (2 sources) Immunodeficiency, unspecified; Translations: [Immunosuppression] Onset: 4 11-27-2023 Chronic Mood disorders (20 sources) Reactive depression (situational); Translations: [Major depressive disorder, single episode, unspecified] Onset: 3 Resolved: 4 05-02-2023 Chronic Nutritional deficiencies (20 sources) Malnutrition (calorie); Translations: [Moderate protein-calorie malnutrition] Onset: 4 12-12-2023 Chronic Other aftercare (1 source) Post-discharge follow-up; Translations: [Encounter for follow-up examination after completed treatment for conditions other than malignant neoplasm] Episodic Other aftercare (15 sources) Insulin dose changed; Translations: [extermination supervisor (current) use of insulin] Onset: 4 09-21-2023 Episodic Other aftercare (15 sources) Drug therapy finding; Translations: [extermination supervisor (current) use of systemic steroids] Onset: 4 09-25-2023 Episodic Other circulatory disease (20 sources) Inferior vena cava filter in situ; Translations: [Presence of other vascular implants and grafts] Onset: 9 05-18-2019 Chronic Other circulatory disease (1 source) Peripheral vascular angioplasty status with implants and grafts; Translations: [S/P angioplasty with stent] Onset: 4 Chronic Other connective tissue disease (1 source) Swelling of right lower limb; Translations: [Other specified soft tissue disorders] Episodic Other diseases of kidney and ureters (20 sources) Hyperparathyroidism due to renal insufficiency; Translations: [Secondary hyperparathyroidism of renal origin] Onset: 0 11-04-2019 Chronic Other eye disorders (1 source) Bilateral subconjunctival hemorrhage; Translations: [Conjunctival hemorrhage, bilateral] 11-04-2023 Episodic Other gastrointestinal disorders (20 sources) H/O: liver disease; Translations: [Personal history of other diseases of the digestive system] 04-24-2019 Episodic Other gastrointestinal disorders (1 source) Diarrhea; Translations: [Diarrhea, unspecified] 05-09-2023 Episodic Other liver diseases (3 sources) Disease of liver; Translations: [Liver disease, unspecified] 06-27-2023 Chronic Other liver diseases (4 sources) Liver transplant status; Translations: [Liver transplant status (HCC)] Onset: 4 Chronic Other liver diseases (1 source) Liver disease, unspecified; Translations: [Disorder of liver] Onset: 4 Chronic Other lower respiratory disease (2 sources) Dyspnea; Translations: [Shortness of breath] Episodic Other lower respiratory disease (20 sources) Dyspnea on exertion; Translations: [Dyspnea, unspecified] Onset: 2 10-12-2021 Episodic Other lower respiratory disease (1 source) Orthopnea; Translations: [Orthopnea] 06-17-2021 Episodic Other nutritional; endocrine; and metabolic disorders (20 sources) Obese class I; Translations: [Obesity, unspecified] Onset: 0 11-04-2019 Chronic Other nutritional; endocrine; and metabolic disorders (20 sources) Hemochromatosis; Translations: [Hemochromatosis, unspecified] Onset: 3 09-17-2023 Chronic Other nutritional; endocrine; and metabolic disorders (20 sources) Hypophosphatemia; Translations: [Other disorders of phosphorus metabolism] Onset: 4 12-06-2023 Chronic Other nutritional; endocrine; and metabolic disorders (20 sources) Hypercalcemia; Translations: [Hypercalcemia] Onset: 4 12-06-2023 Chronic Other nutritional; endocrine; and metabolic disorders (1 source) Hypercalcemia; Translations: [Hypercalcemia] Onset: 4 Chronic Other nutritional; endocrine; and metabolic disorders (8 sources) Loss of appetite; Translations: [Anorexia] Onset: 4 04-03-2024 Episodic Phlebitis; thrombophlebitis and thromboembolism (1 source) Chronic embolism and thrombosis of right femoral vein; Translations: [Chronic deep vein thrombosis (DVT) of femoral vein of right lower extremity (HCC)] Onset: Chronic Pneumonia (except that caused by tuberculosis or sexually transmitted disease) (1 source) Bacterial pneumonia; Translations: [Unspecified bacterial pneumonia] 07-03-2021 Episodic Residual codes; unclassified (2 sources) Edema of right lower limb; Translations: [Localized edema] 04-26-2023 Episodic Residual codes; unclassified (1 source) Confusional state; Translations: [Disorientation, unspecified] 11-20-2023 Episodic Past or Other Problems Problem Classification Problem Date Documented Da te Episodic/Chronic Abdominal hernia (20 sources) Incisional hernia; Translations: [Incisional hernia without obstruction or gangrene] Onset: 04-07-2014 Resolved: 12-13-2021 06-25-2017 Episodic Acute and unspecified renal failure (20 sources) Acute renal failure syndrome; Translations: [Acute kidney failure, unspecified] Onset: 09-21-2023 Resolved: 12-12-2023 09-21-2023 Episodic Acute posthemorrhagic anemia (18 sources) Acute posthemorrhagic anemia; Translations: [Acute posthemorrhagic anemia] Onset: 12-13-2021 12-14-2021 Episodic Administrative/social admission (20 sources) Advance directive discussed with patient; Translations: [Other specified counseling] Onset: 06-06-2022 Episodic Blindness and vision defects (20 sources) Amblyopia of left eye; Translations: [Unspecified amblyopia, left eye] Resolved: 09-17-2023 02-24-2018 Episodic Cataract (20 sources) Bilateral cataracts; Translations: [Unspecified cataract] Resolved: 09-17-2023 02-22-2016 Chronic Complication of device; implant or graft (20 sources) Liver transplant rejection ; 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] Onset: 08-05-2023 Resolved: 09-17-2023 12-12-2023 Episodic Complications of surgical procedures or medical care (20 sources) Postoperative ileus; Translations: [Other postprocedural complications and disorders of digestive system] Onset: 12-13-2021 Resolved: 12-18-2021 12-18-2021 Episodic Conditions associated with dizziness or vertigo (20 sources) Vertigo; Translations: [Dizziness and giddiness] Onset: 05-18-2014 Resolved: 09-17-2023 02-22-2016 Episodic Coronary atherosclerosis and other heart disease (1 source) Presence of coronary angioplasty implant and graft; Translations: [Status post coronary artery stent placement] Onset: 07-09-2023 Episodic Deficiency and other anemia (20 sources) Chronic anemia; Translations: [Anemia, unspecified] Onset: 11-25-2019 09-17-2023 Episodic Deficiency and other anemia (1 source) Anemia, unspecified; Translations: [Anemia, unspecified type] Onset: 10-09-2023 Episodic Diabetes mellitus without complication (20 sources) Hyperglycemia; Translations: [Hyperglycemia, unspecified] Onset: 09-17-2023 09-20-2023 Episodic Fluid and electrolyte disorders (20 sources) Disorder of fluid AND/OR electrolyte; Translations: [Other disorders of electrolyte and fluid balance, not elsewhere classified] Onset: 04-24-2019 Resolved: 12-12-2023 09-21-2023 Episodic Gastroduodenal ulcer (except hemorrhage) (20 sources) Ulcer of duodenum; Translations: [Duodenal ulcer, unspecified as acute or chronic, without hemorrhage or perforation] Onset: 02-06-2013 Resolved: 10-25-2020 08-14-2021 Chronic Genitourinary symptoms and ill-defined conditions (20 sources) Proteinuria; Translations: [Proteinuria, unspecified] Onset: 10-21-2017 11-25-2019 Episodic Immunizations and screening for infectious disease (2 sources) Patient encounter status; Translations: [Encounter for immunization] Onset: 05-18-2019 Resolved: 10-19-2019 Episodic Malaise and fatigue (20 sources) Weakness; Translations: [Asthenia] Onset: 09-17-2023 10-26-2023 Episodic Neoplasms of unspecified nature or uncertain behavior (20 sources) Benign neoplasm of pancreas; Translations: [Neoplasm of unspecified behavior of digestive system] Onset: 08-06-2023 08-06-2023 Episodic Osteoarthritis (20 sources) Arthritis; Translations: [Unspecified osteoarthritis, unspecified site] Resolved: 09-17-2023 02-22-2016 Chronic Other aftercare (20 sources) Long-term current use of anticoagulant; Translations: [detention (current) use of anticoagulants] Onset: 08-06-2023 09-17-2023 Episodic Other aftercare (1 source) extermination supervisor (current) use of insulin; Translations: [Type 2 diabetes mellitus with stage 4 chronic kidney disease, with long-term current use of insulin (HCC)] Onset: 09-18-2023 Episodic Other bone disease and musculoskeletal deformities (20 sources) Osteopenia; Translations: [Other specified disorders of bone density and structure, unspecified site] Onset: 11-26-2013 02-22-2016 Episodic Other circulatory disease (20 sources) History of angioplasty; Translations: [Peripheral vascular angioplasty status with implants and grafts] Onset: 08-06-2023 Resolved: 09-17-2023 09-17-2023 Chronic Other circulatory disease (20 sources) History of cerebrovascular accident; Translations: [Personal history of transient ischemic attack (TIA), and cerebral infarction without residual deficits] Onset: 10-26-2019 10-25-2020 Episodic Other connective tissue disease (20 sources) Pain in left foot; Translations: [Pain in left foot] Onset: 02-20-2019 Resolved: 10-25-2020 10-25-2020 Episodic Other diseases of kidney and ureters (1 source) Disorder of kidney and ureter, unspecified; Translations: [Renal insufficiency] Onset: 10-19-2023 Episodic Other gastrointestinal disorders (20 sources) Incontinence of feces; Translations: [Full incontinence of feces] Onset: 10-26-2023 10-26-2023 Episodic Other gastrointestinal disorders (20 sources) Ascites; Translations: [Other ascites] Onset: 01-13-2013 Resolved: 10-19-2019 08-14-2021 Episodic Other gastrointestinal disorders (1 source) Personal history of other diseases of the digestive system; Translations: [History of cirrhosis of liver] Onset: 11-16-2021 Episodic Other hematologic conditions (18 sources) Raised cardiac enzyme or marker; Translations: [Other specified abnormalities of plasma proteins] Onset: 12-14-2021 12-18-2021 Episodic Other liver diseases (20 sources) Cirrhosis of liver; Translations: [Unspecified cirrhosis of liver] Resolved: 10-25-2020 10-25-2020 Chronic Other liver diseases (20 sources) Enzyme level - finding; Translations: [Transaminitis] Onset: 03-25-2019 Resolved: 03-27-2019 03-27-2019 Episodic Other lower respiratory disease (1 source) Other forms of dyspnea; Translations: [ZULUAGA (dyspnea on exertion)] Onset: 05-20-2023 Episodic Other male genital disorders (20 sources) Disorder of prostate; Translations: [Disorder of prostate, unspecified] Onset: 05-18-2021 Resolved: 09-17-2023 05-18-2021 Episodic Other nervous system disorders (20 sources) H/O: brain disorder; Translations: [Personal history of other diseases of the nervous system and sense organs] Onset: 02-06-2013 Resolved: 09-17-2023 08-14-2021 Episodic Other nervous system disorders (20 sources) Impairment of balance; Translations: [Other abnormalities of gait and mobility] Onset: 06-19-2016 Resolved: 09-17-2023 10-30-2019 Episodic Other nervous system disorders (20 sources) Impaired cognition; Translations: [Other symptoms and signs involving cognitive functions and awareness] Onset: 12-09-2023 12-12-2023 Episodic Other non-traumatic joint disorders (20 sources) Ankle pain; Translations: [Pain in right ankle and joints of right foot] Onset: 12-13-2017 Resolved: 09-17-2023 02-24-2018 Episodic Other nutritional; endocrine; and metabolic disorders (20 sources) Hyperbilirubinemia; Translations: [Other disorders of bilirubin metabolism] Onset: 01-13-2013 Resolved: 09-17-2023 08-14-2021 Chronic Other nutritional; endocrine; and metabolic disorders (20 sources) H/O: metabolic disorder; Translations: [Personal history of other endocrine, nutritional and metabolic disease] Onset: 08-24-2015 08-14-2021 Episodic Other screening for suspected conditions (not mental disorders or infectious disease) (20 sources) Raised prostate specific antigen; Translations: [Elevated prostate specific antigen [PSA]] Onset: 02-22-2016 Resolved: 10-16-2023 02-24-2018 Episodic Pancreatic disorders (not diabetes) (20 sources) Cyst of pancreas; Translations: [Cyst of pancreas] Onset: 08-02-2023 08-06-2023 Episodic Peripheral and visceral atherosclerosis (20 sources) Atherosclerosis of aorta; Translations: [Atherosclerosis of aorta] Onset: 10-12-2021 Resolved: 09-17-2023 Chronic Phlebitis; thrombophlebitis and thromboembolism (20 sources) H/O: Deep vein thrombosis; Translations: [Personal history of other venous thrombosis and embolism] Onset: 04-06-2019 Resolved: 09-17-2023 01-08-2020 Episodic Residual codes; unclassified (20 sources) Bilateral lower limb edema; Translations: [Localized edema] Onset: 01-22-2020 10-27-2020 Episodic Residual codes; unclassified (18 sources) History of hernia repair; Translations: [Other specified postprocedural states] Onset: 12-13-2021 12-13-2021 Episodic Residual codes; unclassified (20 sources) Active living will ; Translations: [Other specified health status] Onset: 06-06-2022 Episodic Residual codes; unclassified (20 sources) Edema, generalized; Translations: [Generalized edema] Onset: 10-12-2023 04-26-2023 Episodic Residual codes; unclassified (20 sources) Prevention status; Translations: [Need for prophylactic immunotherapy] Onset: 04-07-2014 Resolved: 10-19-2019 12-12-2023 Episodic Residual codes; unclassified (20 sources) Altered mental status; Translations: [Altered mental status, unspecified] Onset: 12-07-2023 Resolved: 12-12-2023 12-12-2023 Episodic Residual codes; unclassified (1 source) Disorientation, unspecified; Translations: [Confusion] Onset: 12-04-2023 Episodic Residual codes; unclassified (2 sources) Localized edema; Translations: [Peripheral edema] Onset: 07-25-2023 Episodic Residual codes; unclassified (1 source) Other specified personal risk factors, not elsewhere classified; Translations: [At risk for bleeding] Onset: 08-20-2023 Episodic Retinal detachments; defects; vascular occlusion; and retinopathy (20 sources) Central retinal vein occlusion; Translations: [Central retinal vein occlusion, unspecified eye, stable] Resolved: 09-17-2023 08-14-2021 Chronic Spondylosis; intervertebral disc disorders; other back problems (20 sources) Chronic low back pain; Translations: [Chronic lumbar pain] Onset: 06-16-2020 Resolved: 09-17-2023 01-26-2021 Episodic Unclassified (20 sources) SUMMARY Onset: 01-13-2013 Resolved: 10-19-2019 08-14-2021 Urinary tract infections (3 sources) Acute cystitis; Translations: [Acute cystitis without hematuria] Onset: 12-23-2023 11-26-2023 Episodic Results Test Name Value Interpretation Reference Range Facility HbA1c (Bld)on 12-23-2023 Average glucose Estimated from glycated hemoglobin (Bld) [Mass/Vol] 117 mg/dL [facility] Comment on above: eAG: (Estimated aver age glucose) is a calculated value from HgbA1c and is patient services representative of the average blood glucose level in the last 2-3 month period. HbA1c (Bld) [Mass fraction] 5.7 % High 4.3 - 5.6 % [facility] Comment on above: Chinese Diabetes As sociation guidelines indicate that patients with HgbA1c in the range 5.7-6.4% are at increased risk for development of diabetes, and intervention by lifestyle modification may be beneficial. HgbA1c greater or equal to 6.5% is considered diagnostic of diabetes. Interpretation and review of laboratory results Abnormal [facility] LIPID PANEL, NONFASTINGon Cholesterol [Mass/Vol] 127 mg/dL NINF - 200 mg/dL [facility] Comment on above: <200 mg/dL, Desirabl e 200-239 mg/dL, Borderline high >239 mg/dL, High HDL Cholesterol, Nonfasting 56 mg/dL 39 - PINF mg/dL [facility] Comment on above: 40-59 mg/dL, Accepta ble >59 mg/dL, High: Negative risk factor for coronary heart disease <40 mg/dL, Low: Positive risk factor for coronary heart disease Interpretation and review of laboratory results Normal [facility] LDL Cholesterol, Nonfasting 56 mg/dL NINF - 100 mg/dL [facility] Comment on above: <100 mg/dL, Optimal 100-129 mg/dL, Near optimal/above optimal 130-159 mg/dL, Borderline high 160-189 mg/dL, High >189 mg/dL, Very high Secondary prevention optimal LDL Cholesterol levels are recommended to be < 70 mg/dL LDL/HDL Ratio, Nonfasting 1.00 mg/dL NINF - 2.54 mg/dL [facility] Comment on above: Reference: 1. National Cholesterol Education Program ATP III Guideline At-A-Glance Quick Desk Reference: National Heart, Lung, and Blood [place]. National Institutes of Health. 2001: NIH Publication No. 01-3305. 2. An International Atherosclerosis Society position paper: global recommendations for the management of dyslipidemia: executive summary, Atherosclerosis. 2014: 232(2):410-413. Non HDL Cholesterol, Nonfasting 71 mg/dL NINF - 130 mg/dL [facility] Comment on above: <130 mg/dL, Optimal 130-159 mg/dL, Near optimal/above optimal 160-189 mg/dL, Borderline high 190-219 mg/dL, High >219 mg/dL, Very high Secondary prevention optimal non HDL Cholesterol levels are recommended to be <100 mg/dL Total Chol/HDL Ratio, Nonfasting 2.27 mg/dL NINF - 5.10 mg/dL [facility] Triglycerides, Nonfasting 76 mg/dL NINF - 150 mg/dL [facility] Comment on above: <150 mg/dL, Normal 150-199 mg/dL, Borderline high 200-499 mg/dL, High >499 mg/dL, Very high VLDL Cholesterol, Nonfasting 15 mg/dL NINF - 30 mg/dL [facility] Bas Metab 2000 Pnl SerPlon 0 09-20-2023 Anion gap [Moles/Vol] 14 mmol/L Normal 9-18 [facility] Comment on above: Order Comment: Deanna men Type: BLOOD SPECIMEN Ordering Facility: [facility] Address: [address] [place] [address] Performed By: #### [place], [address]-7, 09156-2, 28549-9, 7-1 #### [facility] CLIA [id number] [address] [place] [address] [place] Calcium [Mass/Vol] 9.9 mg/dL Normal 8.5-10.2 [facility] Comment on above: Order Comment: Klaudiai men Type: BLOOD SPECIMEN Ordering Facility: [facility] Address: [address] [place] [address] Performed By: #### [place], [address]-8, 73451-2, 48227-4, 2777-1 #### [facility] CLIA [id number] [address] [place] [address] [place] Chloride [Moles/Vol] 103 mmol/L Normal 97-105 [facility] Comment on above: Order Comment: Klaudiai men Type: BLOOD SPECIMEN Ordering Facility: [facility] Address: [address] [id number] Performed By: #### B [place], 59765-1, 32387-6, 08000-3, 2777-1 #### [facility] CLIA [id number] [address] [place] [facility] CO2 [Moles/Vol] 25 mmol/L Normal 22-30 [facility] Comment on above: Order Comment: Speci men Type: BLOOD SPECIMEN Ordering Facility: [facility] Address: [address] [place] [address] Performed By: #### B [place], 26655-3, 71678-4, 66167-9, 2777-1 #### [facility] CLIA [id number] [address] [place] Creatinine [Mass/Vol] 3.85 mg/dL High 0.73-1.22 [facility] Comment on above: Order Comment: Speci men Type: BLOOD SPECIMEN Ordering Facility: [facility] Address: [address] [place] [address] Performed By: #### B HB, 32463-6, 48856-2, 65228-7, 2777-1 #### [facility] CLIA [id number] [address] Creatinine and Glomerular filtration rate.predicted panel (S/P/Bld) 15 mL/min/1.73m??? Low >=60 [facility] Comment on above: Order Comment: Speci men Type: BLOOD SPECIMEN Ordering Facility: [facility] Address: [address] [place] [address] Result Comment: Kya mated Glomerular Filtration Rate (eGFR) is calculated using the 2020 CKD-EPI creatinine equation. This equation utilizes serum creatinine, sex, and age as parameters. The creatinine assay has traceable calibration to isotope dilution-mass spectrometry. Refer to KDIGO guidelines for clinical interpretation. In patients with unstable renal function, e.g. those with acute kidney injury, the eGFR may not accurately reflect actual GFR. Performed By: #### [place], 17481-8, 58105-4, 07800-9, 2777-1 #### [facility] CLIA [id number] [address] [place] [address] [place] Glucose [Mass/Vol] 181 mg/dL High 74-99 [facility] Comment on above: Order Comment: Deanna wren Type: BLOOD SPECIMEN Ordering Facility: [facility] Address: [address] [place] [address] Result Comment: The [place] Diabetes Association (ADA) provides guidance for cutoff values for fasting glucose and random glucose. The ADA defines fasting as no caloric intake for at least 8 hours. Fasting plasma glucose results between 100 to 125 mg/dL indicate increased risk for diabetes (prediabetes). Fasting plasma glucose results greater than or equal to 126 mg/dL meet the criteria for diagnosis of diabetes. In the absence of unequivocal hyperglycemia, results should be confirmed by repeat testing. In a patient with classic symptoms of hyperglycemia or hyperglycemic crisis, random plasma glucose results greater than or equal to 200 mg/dL meet the criteria for diagnosis of diabetes. Reference: Standards of Medical Care in Diabetes 2016, [employer] Diabetes Association. Diabetes Care. 2016.39(Suppl 1). Performed By: #### B [place], 06501-1, 82752-6, 27788-3, 2777-1 #### [facility] CLIA [id number] [address] [place] [address] [place] Potassium [Moles/Vol] 4.6 mmol/L Normal 3.7-5.1 [facility] Comment on above: Order Comment: Deanna wren Type: BLOOD SPECIMEN Ordering Facility: [facility] Address: [address] [place] [address] Performed By: #### [place], 57958-9, 34379-3, 38287-6, 2777-1 #### [facility] CLIA [id number] [address] [place] [address] [place] Sodium [Moles/Vol] 142 mmol/L Normal 136-144 [facility] Comment on above: Order Comment: Deanna wren Type: BLOOD SPECIMEN Ordering Facility: [facility] Address: [address] [place] [address] Performed By: #### B HB, 10538-4, 75451-6, 72713-5, 2777-1 #### [facility] CLIA [id number] [address] [place] [address] [place] Urea nitrogen [Mass/Vol] 95 mg/dL High 9-24 [facility] Comment on above: Order Comment: Speci men Type: BLOOD SPECIMEN Ordering Facility: [facility] Address: [address] [place] [address] Performed By: #### [place], 485[address]-9, 36689-2, 01483-9, 2777-1 #### [facility] CLIA [id number] [address] [place] CBC panel Auto (Bld)on 09-20 Erythrocyte distribution width (RBC) [Ratio] 16.5 % High 11.5-15.0 [facility] Comment on above: Order Comment: Speci men Type: BLOOD SPECIMEN Ordering Facility: [facility] Address: [address] [place] [address] Performed By: #### 5 8410-2 #### [facility] CLIA [id number] [address] Hematocrit (Bld) [Volume fraction] 26.4 % Low 39.0-51.0 [facility] Comment on above: Order Comment: Speci men Type: BLOOD SPECIMEN Ordering Facility: [facility] Address: [address] [place] [address] Performed By: #### 5 8410-2 #### [facility] CLIA [id number] [address] OF [facility] Hemoglobin (Bld) [Mass/Vol] 8.6 g/dL Low 13.0-17.0 [facility] Comment on above: Order Comment: Speci men Type: BLOOD SPECIMEN Ordering Facility: [facility] Address: [address] [place] [address] Performed By: #### 5 8410-2 #### [facility] CLIA [id number] [address] MCH (RBC) [Entitic mass] 29.3 pg Normal 26.0-34.0 [facility] Comment on above: Order Comment: Speci men Type: BLOOD SPECIMEN Ordering Facility: [facility] Address: [address] [place] [address] Performed By: #### 5 8410-2 #### [facility] [facility] CLIA [id number] [address] MCHC (RBC) [Mass/Vol] 32.6 g/dL Normal 30.5-36.0 [facility] Comment on above: Order Comment: Speci men Type: BLOOD SPECIMEN Ordering Facility: [facility] Address: [address] [place] [address] Performed By: #### 5 8410-2 #### [place] [facility] CLIA [id number] [address] [place] MCV (RBC) [Entitic vol] 89.8 fL Normal 80.0-100.0 [facility] Comment on above: Order Comment: Speci men Type: BLOOD SPECIMEN Ordering Facility: [facility] Address: [address] [place] [address] Performed By: #### 5 8410-2 #### [facility] CLIA [id number] [address] Nucleated RBC (Bld) [#/Vol] 10*3/uL Normal <0.01 [facility] Comment on above: Order Comment: Speci men Type: BLOOD SPECIMEN Ordering Facility: [facility] Address: [address] [place] [address] Performed By: #### 5 8410-2 #### [facility] CLIA [id number] [address] [place] Platelet mean volume (Bld) [Entitic vol] 10.3 fL Normal 9.0-12.7 [facility] Comment on above: Order Comment: Speci men Type: BLOOD SPECIMEN Ordering Facility: [facility] Address: [address] [place] [address] Performed By: #### 5 8410-2 #### [place] [facility] CLIA [id number] [address] Platelets (Bld) [#/Vol] 84 10*3/uL Low 150-400 [facility] Comment on above: Order Comment: Speci men Type: BLOOD SPECIMEN Ordering Facility: [facility] Address: [address] [place] [address] Result Comment: No c lot detected. Performed By: #### 5 8410-2 #### [place] [facility] CLIA [id number] [address] RBC (Bld) [#/Vol] 2.94 10*6/uL Low 4.20-6.00 [facility] Comment on above: Order Comment: Speci men Type: BLOOD SPECIMEN Ordering Facility: [facility] Address: [address] [place], [place] [address] Performed By: #### 5 8410-2 #### [facility] CLIA [id number] [address] OF [facility] WBC (Bld) [#/Vol] 5.31 10*3/uL Normal 3.70-11.00 [facility] Comment on above: Order Comment: Speci men Type: BLOOD SPECIMEN Ordering Facility: [facility] Address: [address] [place] [address] Performed By: #### 5 8410-2 #### [facility] CLIA [id number] [address] CNDSon 09-20-2023 CNDS HNO ID: [id number] Author: ANTONINA GUTIERREZ MD Service: Hospital Medicine Author Type: Physician Type: Discharge Summary Filed: 09/21/2023 15:32 Note Text: DISCHARGE SUMMARY PATIENT NAME: Isaias Sanon ADMISSION DATE: 09/16/2023 DISCHARGE DATE: 09/20/2023 ATTENDING PHYSICIAN: No att. providers found Code Status: Not on file Highest Readmission Risk Score: 33 The 30 day readmissions risk score is derived from an internally validated risk model which evaluates patient level characteristics, utilization history, medication orders and lab results up until the day of discharge. Patients with a score of 40 or above are considered highest risk for readmission. Specific patient level drivers will be listed at the bottom of the summary. CONSULTING TEAMS DURING HOSPITALIZATION: Endocrinology: Treatment Team: Consulting: Afua Greenberg MD Consulting: Reymundo Goldberg MD REASON FOR HOSPITALIZATION: hyperglycemia DIAGNOSIS: Principal Problem: Immunosuppressive management encounter following liver transplant (HCC) (POA: Yes) Active Problems: Type 2 diabetes mellitus with stage 4 chronic kidney disease, with long-term current use of insulin (HCC) (POA: Yes) Chronic kidney disease (CKD), stage IV (severe) (HCC) (POA: Yes) Obesity, Class I, BMI 30-34.9 (POA: Yes) Acute on chronic anemia (POA: Yes) Thrombocytopenia (HCC) (POA: Yes) Coronary artery disease (POA: Yes) Current use of penitentiary anticoagulation (POA: Yes) Elevated LFTs (POA: Yes) Elevated brain natriuretic peptide (BNP) level (POA: Yes) Resolved Problems: S/P liver transplant (HCC) (POA: Yes) Hyperosmolar hyperglycemic state (HHS) (HCC) (POA: Yes) Hyponatremia (POA: Yes) OPERATIONS DURING HOSPITALIZATION: None PROCEDURES DURING HOSPITALIZATION: HOSPITAL COURSE: 78 year old male with a PMHx significant for HTN, HLD, CKD, CHF, ICH, CAD s/p PCI x6 stents (07/09/23), AAA, DM2 (A1C 6.3%), CKD stage 4, duodenal ulcer c/b GIB, GERD, lupus anticoagulant syndrome, DVT s/p IVF filter (2018), hyperparthyroidism, thombocytopenia and cirrhosis 2/2 ETOH abuse and hemochromatosis c/b hepatic encephalopathy/ascites, s/p liver transplant (2012). Of note, he was recently admitted to [facility] transplant service 08/27-08/30 for progressively increasing LFTs. He was suppose to have a liver biopsy and ERCP performed, but cardiology was uncomfortable holding the patient's dual antiplatlet therapy for the liver biopsy given his recent stent placements. During his hospitalization he required 1U PRBC, had his rapamune and prednisone increased, and losartan was added to his BP regimen. He was also recently seen in his PCP's office on 09/06 for an URI. He was diagnoised with Bronchitis and started on a course of cefadroxil. The patient presents today, 09/17/23 to the [facility] ED with complaints that his blood surgar has been elevated. Per pt, he had outpatient labs performed and his blood glucose was over 500, so he was advised to come to the ED for evaluation. Upon lab work, his glucose was found to be 788. He will be admitted to the ICU for further work-up and mangement of Hyperglycemia. Hyperosmolar hyperglycemic state (HHS) (HCC) Type 2 diabetes mellitus with stage 3b chronic kidney disease, without long-term current use of insulin (HCC) - sugar in 700s on admission - s/p insulin drip overnight in ICU - transitioned to subcut lantus 5U plus Ssi - endocrine following - will need DM education - hba1c pending - in setting of starting prednisone a few weeks ago for liver rejection pred 20mg - increase to lantus 8U BID- to 10U BID inc premeal lispro 8U- to 10U plus SSI - DM education - Hb1c is 8.3 up from 6.3 previously - pending final recs on diabetes medications - also not sure if he will stay on pred 20mg penitentiary- pending transplant team recs on this upon transferring to [facility] Chronic kidney disease (CKD), stage IV (severe) (HCC) LE swelling - cont lasix - conuslt nephrology if recommend increasing diuretic regimen- continue current lasix 40mg CAD with stenting PCI to RI and PCI to OM1 07/09/23 - cont aspirin, atorvastatin, carvedilol plavix Leg swelling - dvt study negative - consult nephrology if inc in diuresis recommended - stable HTN - cont diltiazem GERD - cont protnoix Liver transplant - cont prednisone 20mg - was suppose to switch to sirolimus (Rapamune) 1.5 mg daily - confirmed telephone encounter on 09/04 where he was switched back to Tacrolimus - cont tacrolimus - f/u with transplant team once trasferred if he will stay on current dose of prednisone as it will affect his sugars going forward Transitions of Care Critical Issues: LABS AND PROCEDURES PENDING AT DISCHARGE: No pending results. PATIENT CONDITION AT DISCHARGE: Stable DISCHARGE DISPOSITION: Acute Care Hospital- tranf to [facility] transplant service Discharge Physical Exam: VITAL SIGNS (more content not included)... Normal [facility] CONSULT PROGon 09-20-2023 CONSULT PROG HNO ID: [id number] Author: REYMUNDO GOLDBERG MD Service: Nephrology Author Type: Physician Type: Consult Progress Note Filed: 09/20/2023 08:53 Note Text: NEPHROLOGY CONSULT PROGRESS NOTE Subjective INTERVAL HISTORY: The patient was seen and examined . No acute event overnight. PERTINENT ROS: GENERAL: No fever/chills. RESPIRATORY: Negative for cough, wheezing or shortness of breath. CARDIOVASCULAR: Negative for chest pain or palpitations. GI: Negative for nausea, vomiting, Diarrhea, abdominal pain. : Negative for dysuria and hematuria MEDICATIONS: Current Facility-Administered Medications Medication Dose Route Frequency dextrose 40 % 15 g 15 g ORAL PRN Or glucagon 1 mg injection 1 mg INTRAMUSCULAR PRN Or dextrose 10% iv bolus 12.5 g INTRAVENOUS PRN clopidogrel 75 mg tab(s) (PLAVIX) 75 mg ORAL DAILY pantoprazole DR 40 mg tab(s) (PROTONIX) 40 mg ORAL DAILY aspirin 81 mg chewable tab(s) 81 mg ORAL DAILY NaCl 0.9% iv flush bag 20 mL INTRAVENOUS PRN predniSONE 20 mg tab(s) (DELTASONE) 20 mg ORAL DAILY furosemide 40 mg tab(s) (LASIX) 40 mg ORAL DAILY sertraline 25 mg tab(s) (ZOLOFT) 25 mg ORAL DAILY atorvastatin 40 mg tab(s) (LIPITOR) 40 mg ORAL AT BEDTIME carvedilol 25 mg tab(s) (COREG) 25 mg ORAL BID heparin 5,000 Units injection 5,000 Units SUBCUTANEOUS q 12 H dilTIAZem CD 240 mg cap(s) (CARDIZEM CD, CARTIA XT) 240 mg ORAL DAILY tacrolimus IR 1 mg cap(s) (PROGRAF) 1 mg ORAL BID insulin glargine 10 Units pen (long acting) 10 Units SUBCUTANEOUS BID 8A/BEDTIME insulin lispro 10 Units injection (rapid acting) (ADMElog) 10 Units SUBCUTANEOUS w MEALS Objective PHYSICAL EXAM: BP 167/62 Pulse 73 Temp 36.8 ?C (98.2 ?F) (Oral) Resp 18 Ht 170.2 cm (5' 7 ) Wt 93.9 kg (207 lb 0.2 oz) SpO2 99% BMI 32.42 kg/m? Intake/Output Summary (Last 24 hours) at 09/20/2023 0852 Last data filed at 09/20/2023 0810 Gross per 24 hour Intake 600 ml Output 725 ml Net -125 ml GENERAL: NAD HEENT : NCAT, MMM and pink EYES: Conjunctiva -Pallor, Non icterus sclera. NECK: supple, No JVD, LUNGS: CTA without rales or wheeze, diminished breath sounds, CV: no murmurs, clicks, or gallops. ABDOMEN: soft, NT, BS normal EDEMA : no Lower extremity/ no Dependent edema DATA: Diagnostic tests reviewed for today's visit: Most recent labs and imaging results. Recent Labs 09/20/23 0453 09/19/23 0415 09/18/23 0431 09/18/23 0430 WBC 5.31 4.00 4.06 -- HB 8.6* 7.8* 7.7* -- HCT 26.4* 24.6* 24.2* -- PLT 84* 77* 76* -- NA 142 140 -- 140 K 4.6 4.0 -- 4.0 CHLOR 103 105 -- 105 CO2 25 24 -- 24 BUN 95* 95* -- 87* CREAT 3.85* 3.58* -- 3.53* GLUC 181* 163* -- 266* CA 9.9 9.4 -- 9.2 MG 2.1 2.0 -- 1.9 P 4.6 4.2 -- 4.0 Assessment/Plan . Chronic kidney disease stage IV with baseline creatinine fluctuating between 3-4 and most current GFR is 17. Chronicity of kidney disease likely in the setting of hypertensive nephro sclerosis and sirolimus use. 2. Anemia rule out iron deficiency. Anemia could be in the setting of chronic kidney disease. 3. Type 2 diabetes with hyperglycemia 4. Status post OLT DXP 5. Hyperlipidemia 6. History of heart failure with preserved ejection fraction and on Lasix Plan of management Renal function: --Remained stable and at baseline -- Serum creatinine increased to 3.85 from 3.58 --No hyperkalemia. No significant acid-base disturbance. No hypovolemia. No urgent need for hemodialysis at this time -- Hemoglobin 8.6 ferritin saturation 34.7 and ferritin is 143.7 no need for IV iron --Aranesp 200 mcg subcu x 1 dose was given on 09/19/2023 --Avoid nephrotoxins --Strict intake and output measurement --Urine analysis unremarkable --Check urinary studies --Consider kidney ultrasound as needed Normal [facility] CONSULT PROG HNO ID: [id number] Author: OLIVE BAUGH MD Service: Endocrinology Author Type: Physician Type: Consult Progress Note Filed: 09/20/2023 08:44 Note Text: Endocrinology Progress Note IMPRESSION: Type 2 diabetes mellitus, insulin-requiring - slightly sub optimal control; increased insulin needs due to Prednisone use PLAN: Increase glargine to 10 units qam and qhs Increase lispro at meals to 10 units Supplemental insulin prn Check glucose ac and 2 hours pc Call covering rotary peel oven tender if glucose is less than 80 mg/dL or greater than 200 mg/dL. INTERVAL HISTORY: Is eating meals, awaiting transfer back to main cross [facility]. No new complaints. Current Facility-Administered Medications Medication Dose Route Frequency dextrose 40 % 15 g 15 g ORAL PRN Or glucagon 1 mg injection 1 mg INTRAMUSCULAR PRN Or dextrose 10% iv bolus 12.5 g INTRAVENOUS PRN clopidogrel 75 mg tab(s) (PLAVIX) 75 mg ORAL DAILY pantoprazole DR 40 mg tab(s) (PROTONIX) 40 mg ORAL DAILY aspirin 81 mg chewable tab(s) 81 mg ORAL DAILY NaCl 0.9% iv flush bag 20 mL INTRAVENOUS PRN predniSONE 20 mg tab(s) (DELTASONE) 20 mg ORAL DAILY furosemide 40 mg tab(s) (LASIX) 40 mg ORAL DAILY sertraline 25 mg tab(s) (ZOLOFT) 25 mg ORAL DAILY atorvastatin 40 mg tab(s) (LIPITOR) 40 mg ORAL AT BEDTIME carvedilol 25 mg tab(s) (COREG) 25 mg ORAL BID heparin 5,000 Units injection 5,000 Units SUBCUTANEOUS q 12 H dilTIAZem CD 240 mg cap(s) (CARDIZEM CD, CARTIA XT) 240 mg ORAL DAILY tacrolimus IR 1 mg cap(s) (PROGRAF) 1 mg ORAL BID insulin glargine 10 Units pen (long acting) 10 Units SUBCUTANEOUS BID 8A/BEDTIME insulin lispro 10 Units injection (rapid acting) (ADMElog) 10 Units SUBCUTANEOUS w MEALS PHYSICAL EXAM:BP 167/62 Pulse 73 Temp 36.8 ?C (98.2 ?F) (Oral) Resp 18 Ht 170.2 cm (5' 7 ) Wt 93.9 kg (207 lb 0.2 oz) SpO2 99% BMI 32.42 kg/m? General appearance: Well-appearing, obese (BMI greater than 30) septuagenarian male, alert, in no acute distress, well-hydrated, well nourished. Skin: Skin color, texture, turgor normal, no suspicious rashes or lesions Head: normocephalic, no masses, lesions, tenderness or abnormalities Eyes: Anicteric sclera. Pupils are equally round. Extraocular movements are intact. Ears: not examined Nose/Sinuses: Nares normal. No drainage or sinus tenderness. Oropharynx: Lips, mucosa, and tongue normal, teeth and gums not examined. Neck: Supple, no adenopathy; no palpable visible thyroid enlargement. Lungs: Breathing unlabored. Heart: RRR. No ectopy Abdomen: deferred LAB DATA: Fingerstick glucose readings reviewed. Latest Reference Range AND Units 09/20/23 04:53 Sodium 136 - 144 mmol/L 142 Potassium 3.7 - 5.1 mmol/L 4.6 Chloride 97 - 105 mmol/L 103 CO2 22 - 30 mmol/L 25 BUN 9 - 24 mg/dL 95 (H) Creatinine 0.73 - 1.22 mg/dL 3.85 (H) Glucose 74 - 99 mg/dL 181 (H) Calcium 8.5 - 10.2 mg/dL 9.9 Magnesium 1.7 - 2.3 mg/dL 2.1 Phosphorus 2.7 - 4.8 mg/dL 4.6 Anion Gap 9 - 18 mmol/L 14 eGFR >=60 mL/min/1.73m? 15 (L) (H): Data is abnormally high (L): Data is abnormally low Olive Baugh MD [facility] Endocrinology and Metabolism [place] [facility] September 20, 2023 8:44 AM Normal [facility] Comprehensive metabolic 2000 panelon 09-20-2023 Albumin [Mass/Vol] 3.5 g/dL Low 3.9-4.9 [facility] Comment on above: Order Comment: Deanna wren Type: BLOOD SPECIMEN Ordering Facility: [facility] Address: [address] [place] [address] Performed By: #### [place], 18810-3, 16206-8, 18522-6, 2777-1 #### [facility] CLIA [id number] [address] [place] [address] OF [facility] ALP [Catalytic activity/Vol] 84 U/L Normal 38-113 [facility] Comment on above: Order Comment: Deanna wren Type: BLOOD SPECIMEN Ordering Facility: [facility] Address: [address] [place] [address] Performed By: #### [place], 19246-9, 33340-7, 78139-9, 2777-1 #### [facility] CLIA [id number] [address] [place] [address] [place] ALT [Catalytic activity/Vol] 102 U/L High 10-54 [facility] Comment on above: Order Comment: Speci men Type: BLOOD SPECIMEN Ordering Facility: [facility] Address: [address] [place] [address] Performed By: #### [place], 48924-7, 91376-3, 53826-4, 2777-1 #### [facility] CLIA [id number] [address] [place] [address] [place] AST [Catalytic activity/Vol] 62 U/L High 14-40 [facility] Comment on above: Order Comment: Speci men Type: BLOOD SPECIMEN Ordering Facility: [facility] Address: [address] [place] [address] Performed By: #### B HB, 31219-1, 23115-9, 43134-7, 2777-1 #### [facility] CLIA [id number] [address] [place] [address] [place] Bilirubin [Mass/Vol] 0.7 mg/dL Normal 0.2-1.3 [facility] Comment on above: Order Comment: Speci men Type: BLOOD SPECIMEN Ordering Facility: [facility] Address: [address] [place] [address] Performed By: #### B HB, 26817-5, 10638-5, 74483-0, 2777-1 #### [facility] CLIA [id number] [address] [place] Protein [Mass/Vol] 5.6 g/dL Low 6.3-8.0 [facility] Comment on above: Order Comment: Speci men Type: BLOOD SPECIMEN Ordering Facility: [facility] Address: [address] [place] [address] Performed By: #### B [place], 25820-9, 07112-4, 94378-3, 2777-1 #### [facility] CLIA [id number] [address] [place] Magnesium SerPl-mCncon 09-20 Magnesium [Mass/Vol] 2.1 mg/dL Normal 1.7-2.3 [facility] Comment on above: Order Comment: Speci men Type: BLOOD SPECIMEN Ordering Facility: [facility] Address: [address] [place] [address] Performed By: #### B HB, 82754-7, 15511-3, 43023-6, 2777-1 #### [facility] CLIA [id number] [address] [place] [address] [place] Phosphate SerPl-mCncon 09-20 Phosphate [Mass/Vol] 4.6 mg/dL Normal 2.7-4.8 [facility] Comment on above: Order Comment: Speci men Type: BLOOD SPECIMEN Ordering Facility: [facility] Address: [address] [place] [address] Performed By: #### B HB, 81249-5, 87922-5, 73470-5, 2777-1 #### [facility] CLIA [id number] [address] [place] [address] [place] Basic metabolic 2000 panelon 09-19-2023 Anion gap [Moles/Vol] 11 mmol/L Normal 9-18 [facility] Comment on above: Order Comment: Speci men Type: BLOOD SPECIMEN Ordering Facility: [facility] Address: [address] [place] [address] Performed By: #### B HB, 16058-3, 14708-4, 54801-3, 2777-1 #### [facility] CLIA [id number] [address] [place] [address] [place] Calcium [Mass/Vol] 9.4 mg/dL Normal 8.5-10.2 [facility] Comment on above: Order Comment: Speci men Type: BLOOD SPECIMEN Ordering Facility: [facility] Address: [address] [place] [address] Performed By: #### B [place], 38028-2, 39268-8, 44075-1, 2777-1 #### [facility] CLIA [id number] [address] Chloride [Moles/Vol] 105 mmol/L Normal 97-105 [facility] Comment on above: Order Comment: Deanna wren Type: BLOOD SPECIMEN Ordering Facility: [facility] Address: [address] [place] [address] Performed By: #### B HB, 36893-7, 44983-0, 36617-5, 2777-1 #### [facility] CLIA [id number] [address] [place] CO2 [Moles/Vol] 24 mmol/L Normal 22-30 [facility] Comment on above: Order Comment: Deanna wren Type: BLOOD SPECIMEN Ordering Facility: [facility] Address: [address] [place] [address] Performed By: #### B HB, 71348-6, 27109-1, 52366-1, 2777-1 #### [facility] CLIA [id number] [address] Creatinine [Mass/Vol] 3.58 mg/dL High 0.73-1.22 [facility] Comment on above: Order Comment: Deanna wren Type: BLOOD SPECIMEN Ordering Facility: [facility] Address: [address] [place] [address] Performed By: #### B HB, 02977-5, 97845-6, 03766-1, 2777-1 #### [facility] CLIA [id number] [address] Creatinine and Glomerular filtration rate.predicted panel (S/P/Bld) 17 mL/min/1.73m??? Low >=60 [facility] Comment on above: Order Comment: Deanna wren Type: BLOOD SPECIMEN Ordering Facility: [facility] Address: [address] [place] [address] Result Comment: Kya mated Glomerular Filtration Rate (eGFR) is calculated using the 2020 CKD-EPI creatinine equation. This equation utilizes serum creatinine, sex, and age as parameters. The creatinine assay has traceable calibration to isotope dilution-mass spectrometry. Refer to KDIGO guidelines for clinical interpretation. In patients with unstable renal function, e.g. those with acute kidney injury, the eGFR may not accurately reflect actual GFR. Performed By: #### B HB, 23712-4, 59750-4, 88134-3, 2777-1 #### [facility] CLIA [id number] [address] [place] [address] [place] Glucose [Mass/Vol] 163 mg/dL High 74-99 [facility] Comment on above: Order Comment: Deanna wren Type: BLOOD SPECIMEN Ordering Facility: [facility] Address: [address] [place] [address] Result Comment: The [place] Diabetes Association (ADA) provides guidance for cutoff values for fasting glucose and random glucose. The ADA defines fasting as no caloric intake for at least 8 hours. Fasting plasma glucose results between 100 to 125 mg/dL indicate increased risk for diabetes (prediabetes). Fasting plasma glucose results greater than or equal to 126 mg/dL meet the criteria for diagnosis of diabetes. In the absence of unequivocal hyperglycemia, results should be confirmed by repeat testing. In a patient with classic symptoms of hyperglycemia or hyperglycemic crisis, random plasma glucose results greater than or equal to 200 mg/dL meet the criteria for diagnosis of diabetes. Reference: Standards of Medical Care in Diabetes 2016, [employer] Diabetes Association. Diabetes Care. 2016.39(Suppl 1). Performed By: #### B [place], 49052-3, 58825-6, 82882-3, 2776-1 #### [facility] CLIA [id number] [address] [place] [address] [place] Potassium [Moles/Vol] 4.0 mmol/L Normal 3.7-5.1 [facility] Comment on above: Order Comment: Deanna wren Type: BLOOD SPECIMEN Ordering Facility: [facility] Address: [address] [place] [address] Performed By: #### B HB, 11933-9, 90484-7, 88399-5, 7-1 #### [facility] CLIA [id number] [address] [place] [address] [place] Sodium [Moles/Vol] 140 mmol/L Normal 136-144 [facility] Comment on above: Order Comment: Deanna wren Type: BLOOD SPECIMEN Ordering Facility: [facility] Address: [address] [place] [address] Performed By: #### B HB, 72051-5, 86661-7, 05777-8, 2777-1 #### [facility] CLIA [id number] [address] [place] [address] [facility] Urea nitrogen [Mass/Vol] 95 mg/dL High 9-24 [facility] Comment on above: Order Comment: Speci men Type: BLOOD SPECIMEN Ordering Facility: [facility] Address: [facility] [place] [address] Performed By: #### B HB, 96998-7, 94528-6, 64928-4, 2777-1 #### [facility] CLIA [id number] [address] [place] [address] [facility] CASE MANAGEMon 09-19-2023 CASE MANAGEM HNO ID: [id number] Author: KENY NAIDU RN Service: ? Author Type: Registered Nurse Type: Care Mgt Progress Note Filed: 09/19/2023 12:56 Note Text: CARE MANAGEMENT PROGRESS NOTE SERVICE DATE: 09/19/2023 SERVICE TIME: 12:54 PM LOS: 2 days Needs Prior to Discharge: Bed Availability;Home Care Order;Other: See Comment (medical clearance) [place] of Choice Given: Yes Level of Care Discussed: Senior Living Facility;Home Care Financial Disclosure Provided: Yes Financial Disclosure Comments: Explained to patient's Provider List: Home Care;Senior Living Facility (Declined SNF, wants [facility]) EMR reviewed. PT/OT recommending SNF. RNCM spoke to patient's to discuss DC planning. Patient and refusing SNF but agreeable to [facility]. Referral sent to [facility], awaiting response. Will NEED F2F. Continues to await bed at [facility]. CM will continue to follow. SIGNATURE: Keny Naidu RN PATIENT NAME: Isaias Sanon DATE: September 19, 2023 TIME: 12:54 PM PAGER/CONTACT #: [phone] Normal [facility] CBC panel Auto (Bld)on 09-19 Erythrocyte distribution width (RBC) [Ratio] 16.2 % High 11.5-15.0 [facility] Comment on above: Order Comment: Speci men Type: BLOOD SPECIMEN Ordering Facility: [facility] Address: [address] [place] [address] Performed By: #### B [place], 75407-3, 80808-9, 89682-6, 2777-1 #### [facility] CLIA [id number] [address] [place] [address] [place] Hematocrit (Bld) [Volume fraction] 24.6 % Low 39.0-51.0 [facility] Comment on above: Order Comment: Speci men Type: BLOOD SPECIMEN Ordering Facility: [facility] Address: [address] [place] [address] Performed By: #### B HB, 47222-9, 22666-6, 04395-7, 2777-1 #### [facility] CLIA [id number] [address] [place] Hemoglobin (Bld) [Mass/Vol] 7.8 g/dL Low 13.0-17.0 [facility] Comment on above: Order Comment: Speci men Type: BLOOD SPECIMEN Ordering Facility: [facility] Address: [address] [place] [address] Performed By: #### B HB, 62660-4, 21986-6, 69889-5, 2777-1 #### [facility] CLIA [id number] [address] STATES OF [facility] MCH (RBC) [Entitic mass] 28.2 pg Normal 26.0-34.0 [facility] Comment on above: Order Comment: Speci men Type: BLOOD SPECIMEN Ordering Facility: [facility] Address: [address] [place] [address] Performed By: #### B HB, 55295-3, 32838-0, 56292-3, 2777-1 #### [facility] CLIA [id number] [address] [place] MCHC (RBC) [Mass/Vol] 31.7 g/dL Normal 30.5-36.0 [facility] Comment on above: Order Comment: Speci men Type: BLOOD SPECIMEN Ordering Facility: [facility] Address: [address] [place] [address] Performed By: #### B HB, 64501-5, 45091-6, 59227-7, 2777-1 #### [facility] CLIA [id number] [address] STATES [facility] MCV (RBC) [Entitic vol] 88.8 fL Normal 80.0-100.0 [facility] Comment on above: Order Comment: Speci men Type: BLOOD SPECIMEN Ordering Facility: [facility] Address: [address] [place] [address] Performed By: #### B HB, 22919-7, 05602-5, 31348-8, 2777-1 #### [facility] CLIA [id number] [address] [place] Nucleated RBC (Bld) [#/Vol] 10*3/uL Normal <0.01 [facility] Comment on above: Order Comment: Speci men Type: BLOOD SPECIMEN Ordering Facility: [facility] Address: [address] [place] [address] Performed By: #### B HB, 53657-2, 18885-3, 43361-3, 2777-1 #### [facility] CLIA [id number] [address] [place] Platelet mean volume (Bld) [Entitic vol] 10.0 fL Normal 9.0-12.7 [facility] Comment on above: Order Comment: Speci men Type: BLOOD SPECIMEN Ordering Facility: [facility] Address: [address] [place] [address] Performed By: #### B HB, 00204-4, 47722-0, 04630-7, 2777-1 #### [facility] CLIA [id number] [address] Platelets (Bld) [#/Vol] 77 10*3/uL Low 150-400 [facility] Comment on above: Order Comment: Speci men Type: BLOOD SPECIMEN Ordering Facility: [facility] Address: [address] [place] [address] Result Comment: No c lot detected. Performed By: #### B HB, 94572-4, 47439-4, 10771-8, 2777-1 #### [facility] CLIA [id number] [address] [place] [address] [place] RBC (Bld) [#/Vol] 2.77 10*6/uL Low 4.20-6.00 [facility] Comment on above: Order Comment: Speci men Type: BLOOD SPECIMEN Ordering Facility: [facility] Address: [address] [place] [address] Performed By: #### B HB, 20346-1, 07240-3, 54245-4, 2777-1 #### [facility] CLIA [id number] [address] [place] [id number] [place] WBC (Bld) [#/Vol] 4.00 10*3/uL Normal 3.70-11.00 [facility] Comment on above: Order Comment: Speci men Type: BLOOD SPECIMEN Ordering Facility: [facility] Address: [address] [place] [address] Performed By: #### B HB, 08757-2, 90909-4, 54542-8, 2777-1 #### [facility] CLIA [id number] [address] OF [facility] CONSULT PROGon 09-19-2023 CONSULT PROG HNO ID: [id number] Author: REYMUNDO GOLDBERG MD Service: Nephrology Author Type: Physician Type: Consult Progress Note Filed: 09/19/2023 08:19 Note Text: NEPHROLOGY CONSULT PROGRESS NOTE Subjective INTERVAL HISTORY: The patient was seen and examined . No acute event overnight. PERTINENT ROS: GENERAL: No fever/chills. RESPIRATORY: Negative for cough, wheezing or shortness of breath. CARDIOVASCULAR: Negative for chest pain or palpitations. GI: Negative for nausea, vomiting, Diarrhea, abdominal pain. : Negative for dysuria and hematuria MEDICATIONS: Current Facility-Administered Medications Medication Dose Route Frequency dextrose 40 % 15 g 15 g ORAL PRN Or glucagon 1 mg injection 1 mg INTRAMUSCULAR PRN Or dextrose 10% iv bolus 12.5 g INTRAVENOUS PRN clopidogrel 75 mg tab(s) (PLAVIX) 75 mg ORAL DAILY pantoprazole DR 40 mg tab(s) (PROTONIX) 40 mg ORAL DAILY aspirin 81 mg chewable tab(s) 81 mg ORAL DAILY NaCl 0.9% iv flush bag 20 mL INTRAVENOUS PRN predniSONE 20 mg tab(s) (DELTASONE) 20 mg ORAL DAILY furosemide 40 mg tab(s) (LASIX) 40 mg ORAL DAILY sertraline 25 mg tab(s) (ZOLOFT) 25 mg ORAL DAILY atorvastatin 40 mg tab(s) (LIPITOR) 40 mg ORAL AT BEDTIME carvedilol 25 mg tab(s) (COREG) 25 mg ORAL BID insulin lispro injection (rapid acting) (ADMElog) SUBCUTANEOUS w MEALS heparin 5,000 Units injection 5,000 Units SUBCUTANEOUS q 12 H dilTIAZem CD 240 mg cap(s) (CARDIZEM CD, CARTIA XT) 240 mg ORAL DAILY tacrolimus IR 1 mg cap(s) (PROGRAF) 1 mg ORAL BID insulin glargine 8 Units pen (long acting) 8 Units SUBCUTANEOUS BID 8A/BEDTIME insulin lispro 8 Units injection (rapid acting) (ADMElog) 8 Units SUBCUTANEOUS w MEALS Darbepoetin Enrique In Polysorbat 200 mcg injection (ARANESP) 200 mcg SUBCUTANEOUS ONCE Objective PHYSICAL EXAM: BP 167/64 Pulse 64 Temp 36.4 ?C (97.5 ?F) (Oral) Resp 16 Ht 170.2 cm (5' 7 ) Wt 93.9 kg (207 lb 0.2 oz) SpO2 99% BMI 32.42 kg/m? Intake/Output Summary (Last 24 hours) at 09/19/2023 0817 Last data filed at 09/19/2023 0400 Gross per 24 hour Intake 610 ml Output 550 ml Net 60 ml GENERAL: NAD HEENT : NCAT, MMM and pink EYES: Conjunctiva -Pallor, Non icterus sclera. NECK: supple, No JVD, LUNGS: CTA without rales or wheeze, diminished breath sounds, CV: no murmurs, clicks, or gallops. ABDOMEN: soft, NT, BS normal EDEMA : no Lower extremity/ no Dependent edema DATA: Diagnostic tests reviewed for today's visit: Most recent labs and imaging results. Recent Labs 09/19/23 0415 09/18/23 0431 09/18/23 0430 09/17/23 0308 WBC 4.00 4.06 -- 4.73 HB 7.8* 7.7* -- 7.5* HCT 24.6* 24.2* -- 23.0* PLT 77* 76* -- 71* NA 140 -- 140 138 K 4.0 -- 4.0 3.9 CHLOR 105 -- 105 103 CO2 24 -- 24 22 BUN 95* -- 87* 83* CREAT 3.58* -- 3.53* 3.46* GLUC 163* -- 266* 399* CA 9.4 -- 9.2 9.2 MG 2.0 -- 1.9 1.9 P 4.2 -- 4.0 4.0 Recent Labs 09/16/23 2258 09/16/23 0854 TPROT 5.6* 5.4* ALB 3.5* 3.4* ALT 91* 94* AST 34 29 ALKPHOS 102 98 TBILI 0.7 0.7 Assessment/Plan . Chronic kidney disease stage IV with baseline creatinine fluctuating between 3-4 and most current GFR is 17. Chronicity of kidney disease likely in the setting of hypertensive nephro sclerosis and sirolimus use. 2. Anemia rule out iron deficiency. Anemia could be in the setting of chronic kidney disease. 3. Type 2 diabetes with hyperglycemia 4. Status post OLT DXP 5. Hyperlipidemia 6. History of heart failure with preserved ejection fraction and on Lasix Plan of management Renal function: --Remained stable and at baseline --Serum creatinine at the 3.58 and BUN at 95 GFR 17. --No hyperkalemia. No significant acid-base disturbance. No hypovolemia. No urgent need for hemodialysis at this time -- Hemoglobin 7.8. Check iron studies --Aranesp 200 mcg subcu x 1 dose --Avoid nephrotoxins --Strict intake and output measurement --Urine analysis unremarkable --Check urinary studies --Consider kidney ultrasound as needed Normal [facility] Ferritin [Mass/Vol] 143.7 ng/mL Normal 30.3-565.7 [facility] Comment on above: Order Comment: Speci men Type: BLOOD SPECIMEN Ordering Facility: [facility] Address: [address] [facility] [place] [id number] Performed By: #### [place], 14508-7, 88040-1, 21152-0, 2777-1 #### [facility] CLIA [id number] [address] [place] [address] [place] Iron and Iron binding capaci ty panelon 09-19-2023 Iron [Mass/Vol] 60 ug/dL Normal 41-186 [facility] Comment on above: Order Comment: Speci men Type: BLOOD SPECIMEN Ordering Facility: [facility] Address: [address] [place] [address] Performed By: #### B HB, 21371-1, 91978-9, 00681-3, 2777-1 #### [facility] CLIA [id number] [address] [place] [address] [place] Iron binding capacity [Mass/Vol] 173 ug/dL Low 232-386 [facility] Comment on above: Order Comment: Speci men Type: BLOOD SPECIMEN Ordering Facility: [facility] Address: [address] [place] [address] Performed By: #### B HB, 32785-5, 25259-6, 21109-2, 2777-1 #### [facility] CLIA [id number] [address] Iron/TIBC [Molar ratio] 34.7 % Normal 15.0-57.0 [facility] Comment on above: Order Comment: Speci men Type: BLOOD SPECIMEN Ordering Facility: [facility] Address: [address] [place] [address] Performed By: #### [place], 51259-3, 75230-6, 92351-3, 2777-1 #### [facility] CLIA [id number] [address] [place] Magnesium SerPl-mCncon 09-19 Magnesium [Mass/Vol] 2.0 mg/dL Normal 1.7-2.3 [facility] Comment on above: Order Comment: Speci men Type: BLOOD SPECIMEN Ordering Facility: [facility] Address: [address] [place] [address] Performed By: #### B HB, 68634-0, 38148-7, 92835-6, 2777-1 #### [facility] CLIA [id number] [address] [place] NURSING PROGon 09-19-2023 NURSING PROG HNO ID: [id number] Author: RSAVANI LEONARD RN Service: Nursing Author Type: Registered Nurse Type: Nursing Progress Note Filed: 09/19/2023 20:36 Note Text: Dinner BS: 170- Did not notify provider. 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 NURSING PROG HNO ID: [id number] Author: SRAVANI LEONARD, PASCALE Service: Nursing Author Type: Registered Nurse Type: Nursing Progress Note Filed: 09/19/2023 17:22 Note Text: Patient and Spouse requested an update from Providers tomorrow if they are not bedside. They would like to appoint daughter Amberly Pool as the contact [phone] [facility] NURSING PROG HNO ID: [id number] Author: FELIX BAL RN Service: Nursing Author Type: Registered Nurse Type: Nursing Progress Note Filed: 09/19/2023 15:41 Note Text: Breakfast BS: 208, RN notified technologies division chair rotary peel oven tender and instructed to give scheduled DM medications (8 units lantus, 8 units lispro, and 2 units of SSI) 2 hour PC BS: 261; RN notified technologies division chair rotary peel oven tender and he placed order for one time dose of 10 units of lispro Lunch BS: 230; RN notified technologies division chair rotary peel oven tender and instructed to give scheduled DM medication (8 units lispro) 2 hour PC: 208; RN notified technologies division chair rotary peel oven tender; no new orders at this time [facility] Phosphate SerPl-mCncon 09-19 Phosphate [Mass/Vol] 4.2 mg/dL Normal 2.7-4.8 [facility] Comment on above: Order Comment: Speci men Type: BLOOD SPECIMEN Ordering Facility: [facility] Address: [address] [place] [address] Performed By: #### B , 96451-7, 53078-1, 45292-8, 2777-1 #### [facility] CLIA [id number] [address] [place] [address] [place] THERAPY NTon 09-19-2023 THERAPY NT HNO ID: [id number] Author: EMETERIO MESA PT Service: Physical Therapy Author Type: Physical Therapist Type: Therapy (PT/OT/Speech/Resp) Filed: 09/19/2023 11:27 Note Text: Summary: PT eval Physical Therapy Evaluation Summary SERVICE DATE: 09/19/2023 SERVICE TIME: 1030 to 1112 ROOM: [id number] PT 6 Clicks Score: 18 DISCHARGE RECOMMENDATIONS Subacute/SNF Recommended Discharge Disposition Comments: short-term to improve safety, strength and independence with all mobility tasks prior to return home with caregiver assist; pt with progressive weakness during session with all mobility and relates progressive weakness and overall decline in mobility 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; would benefit from SNF initially Recommended Discharge Disposition Due to: Patient requires daily, facility-based rehabilitation from at least one discipline due to:, ADL impairment resulting in caregiver dependence, anticipate community discharge/previous community dweller, decline in functional status requiring daily skilled care, high level balance deficits, intact cognition Recommended Discharge Equipment: No equipment needs anticipated ASSESSMENT Response to Therapy Interventions: Good Participation in Activities, Low Activity Tolerance, Multiple Ongoing Medical Issues, Requires Additional Time to Complete Activities, Slow Progression with Functional Activities/Skills pt noted to fatigue quickly throughout, overall CGA/min assist for all mobility with FWW however limited tolerance to activity, progressive weakness and fatigue with mobility and therapeutic exercises during session; + fall risk; denies pain, lightheadedness/dizziness or SOB/ZULUAGA throughout PRECAUTIONS Lines/Tubes/Drains, Diabetic, Fall Risk standard CURRENT HOSPITAL COURSE Presents to ED with c/o elevated blood glucose (over 500 per OP labs, 788 in ED). Admitted to ICU for mgmt of hyperglycemia. 09/17: Transferred out of ICU. 09/18: Awaiting transfer to [facility] [place] transplant unit. 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, recurrent incarcerated incisional hernia, encephalopathy, vertigo, HOME LIVING Patient Lives With: Spouse Assistance Available: 24-Hour Entry To Home: Stairs, With Rail Number Of Stairs Into Home: 2 Number Of Stairs To Bed/Bath: 6 (split level, 6 up to bedroom, 6 down to other bedroom/bathroom/basement) Stairs to Bed/Bath with: Unilateral Rail Tub/Shower Type: walk-in shower on upper level pt uses Laundry: spouse completes Equipment Owned: Grab Bars- Shower, Shower Chair, Walker- Wheeled, Wheelchair- Manual, Med Management Device, Commode- Bedside, Commode- Raised PRIOR FUNCTIONAL LEVEL Required Assistance, History of Falls Assistance Required With: Medication Management, Shopping, Transportation, Meals, Laundry, Cleaning, Safety, Self Care, Stairs Per pt: Sleeps in recliner, no use of assistive device (furniture walks), PRN assist with showering, indep other ADLs. Spouse organizes medications, uses pill box. Reports 2 falls in last 6 months (legs gave out). Spouse completes IADLs and provides transportation. Spouse provides CGA for safety when pt completes stairs SUBJECTIVE Pt resting at approach, no acute distress noted, pleasant and cooperative, oriented x 4, agreeable to PT evaluation/treatment, ok per RN for PT THERAPY DIAGNOSIS Reduced mobility-other TREATMENT INTERVENTIONS Evaluation, Therapeutic Activity (96471), Therapeutic Exercise (59885), Gait Training (48577) Timed Code Treatment (minutes): 24 Skilled Treatment Time (minutes): 39 Slow pacing with all mobility, fatigues quickly, frequent brief rest breaks Completes 15 repetitions (unless otherwise indicated) of the following supine therapeutic exercises on B LE with assistance as indicated: heel slides (minimal assistance),hip abduction with quad set (minimal assistance) , SLR with quad set (minimal assistance). Completes 15 repetitions (unless otherwise noted) of the following seated therapeutic exercises on B LE (unless otherwise indicated) with assistance as indicated sitting in chair: hip flexion, LAQs (no assistance), lightly resisted isometric hip abduction bilaterally, lightly resisted isometric hip adduction bilaterally. Isometrics x 3-5 second hold, light manual resistance verbal, visual and tactile cues initially and prn thereafter for technique and for patient to assist throughout as able. Appropriately follows cues throughout. Rest breaks provided secondary to fatigue/weakness. Education to patient on benefits/rationale for exercises (more content not included)... Normal [facility] Basic metabolic 2000 panelon 09-18-2023 Anion gap [Moles/Vol] 11 mmol/L Normal 05-06 [facility] Comment on above: Order Comment: Speci men Type: BLOOD SPECIMEN Ordering Facility: [facility] Address: [address] [place] [address] Performed By: #### [place], 80148-8, 98503-6, 79111-5, 7-1 #### [facility] CLIA [id number] [address] [place] [address] [place] Calcium [Mass/Vol] 9.2 mg/dL Normal 8.5-10.2 [facility] Comment on above: Order Comment: Speci men Type: BLOOD SPECIMEN Ordering Facility: [facility] Address: [address] [place] [address] Performed By: #### B HB, 91794-5, 81746-5, 36697-3, 2777-1 #### [facility] CLIA [id number] [address] [place] [address] [place] Chloride [Moles/Vol] 105 mmol/L Normal 97-105 [facility] Comment on above: Order Comment: Speci men Type: BLOOD SPECIMEN Ordering Facility: [facility] Address: [address] [place] [address] Performed By: #### B HB, 90623-7, 17526-2, 09260-9, 2777-1 #### [facility] CLIA [id number] [address] [place] [address] [place] CO2 [Moles/Vol] 24 mmol/L Normal 22-30 [facility] Comment on above: Order Comment: Deanna wren Type: BLOOD SPECIMEN Ordering Facility: [facility] Address: [address] [place] [address] Performed By: #### [place], 21702-3, 88069-3, 74484-6, 2777-1 #### [facility] CLIA [id number] [address] [place] Creatinine [Mass/Vol] 3.53 mg/dL High 0.73-1.22 [facility] Comment on above: Order Comment: Klaudiai men Type: BLOOD SPECIMEN Ordering Facility: [facility] Address: [address] [place] [address] Performed By: #### B [place], 56413-6, 21096-8, 72890-6, 2777-1 #### [facility] CLIA [id number] [address] Creatinine and Glomerular filtration rate.predicted panel (S/P/Bld) 17 mL/min/1.73m??? Low >=60 [facility] Comment on above: Order Comment: Deanna wren Type: BLOOD SPECIMEN Ordering Facility: [facility] Address: [address] [place] [address] Result Comment: Kya mated Glomerular Filtration Rate (eGFR) is calculated using the 2020 CKD-EPI creatinine equation. This equation utilizes serum creatinine, sex, and age as parameters. The creatinine assay has traceable calibration to isotope dilution-mass spectrometry. Refer to KDIGO guidelines for clinical interpretation. In patients with unstable renal function, e.g. those with acute kidney injury, the eGFR may not accurately reflect actual GFR. Performed By: #### [place], 45625-2, 39144-9, 96304-5, 2777-1 #### [facility] CLIA [id number] [address] [place] Glucose [Mass/Vol] 266 mg/dL High 74-99 [facility] Comment on above: Order Comment: Deanna wren Type: BLOOD SPECIMEN Ordering Facility: [facility] Address: [address], [place] [address] Result Comment: The [place] Diabetes Association (ADA) provides guidance for cutoff values for fasting glucose and random glucose. The ADA defines fasting as no caloric intake for at least 8 hours. Fasting plasma glucose results between 100 to 125 mg/dL indicate increased risk for diabetes (prediabetes). Fasting plasma glucose results greater than or equal to 126 mg/dL meet the criteria for diagnosis of diabetes. In the absence of unequivocal hyperglycemia, results should be confirmed by repeat testing. In a patient with classic symptoms of hyperglycemia or hyperglycemic crisis, random plasma glucose results greater than or equal to 200 mg/dL meet the criteria for diagnosis of diabetes. Reference: Standards of Medical Care in Diabetes 2016, [employer] Diabetes Association. Diabetes Care. 2016.39(Suppl 1). Performed By: #### B HB, 80829-8, 91804-9, 87959-1, 2777-1 #### [facility] CLIA [id number] [address] [place] [address] [place] Potassium [Moles/Vol] 4.0 mmol/L Normal 3.7-5.1 [facility] Comment on above: Order Comment: Deanna men Type: BLOOD SPECIMEN Ordering Facility: [facility] Address: [address] [place] [address] Performed By: #### B HB, 86168-8, 86939-1, 21699-4, 2777-1 #### [facility] CLIA [id number] [address] [place] Sodium [Moles/Vol] 140 mmol/L Normal 136-144 [facility] Comment on above: Order Comment: Deanna men Type: BLOOD SPECIMEN Ordering Facility: [facility] Address: [address] [place] [address] Performed By: #### [place], 20547-1, 35786-8, 81986-0, 2777-1 #### [facility] CLIA [id number] [address] [place] [address] [place] Urea nitrogen [Mass/Vol] 87 mg/dL High 9-24 [facility] Comment on above: Order Comment: Deanna men Type: BLOOD SPECIMEN Ordering Facility: [facility] Address: [address] [place] [address] Performed By: #### B HB, 57210-4, 20121-7, 76060-8, 2777-1 #### [facility] CLIA [id number] [address] CBC panel Auto (Bld)on 09-18 Erythrocyte distribution width (RBC) [Ratio] 16.1 % High 11.5-15.0 [facility] Comment on above: Order Comment: Speci men Type: BLOOD SPECIMEN Ordering Facility: [facility] Address: [address] [place] [address] Performed By: #### B HB, 30742-7, 14893-8, 40367-9, 2777-1 #### [facility] CLIA [id number] [address] [place] Hematocrit (Bld) [Volume fraction] 24.2 % Low 39.0-51.0 [facility] Comment on above: Order Comment: Speci men Type: BLOOD SPECIMEN Ordering Facility: [facility] Address: [address] [place] [address] Performed By: #### B HB, 17853-8, 57385-0, 56271-3, 2777-1 #### [facility] CLIA [id number] [address] [place] Hemoglobin (Bld) [Mass/Vol] 7.7 g/dL Low 13.0-17.0 [facility] Comment on above: Order Comment: Speci men Type: BLOOD SPECIMEN Ordering Facility: [facility] Address: [address] [place] [address] Performed By: #### B HB, 59045-2, 29802-5, 16697-8, 2777-1 #### [facility] CLIA [id number] [address] MCH (RBC) [Entitic mass] 28.5 pg Normal 26.0-34.0 [facility] Comment on above: Order Comment: Speci men Type: BLOOD SPECIMEN Ordering Facility: [facility] Address: [address] [place] [address] Performed By: #### B HB, 48647-3, 12325-0, 59280-9, 2776-1 #### [facility] CLIA [id number] [address] [place], [place] [id number] [place] [address] [place] [facility] MCHC (RBC) [Mass/Vol] 31.8 g/dL Normal 30.5-36.0 [facility] Comment on above: Order Comment: Speci men Type: BLOOD SPECIMEN Ordering Facility: [facility] Address: [address] [place] [address] Performed By: #### B HB, 02261-7, 33200-3, 89007-3, 2776-1 #### [facility] CLIA [id number] [address] [place] [address] [place] MCV (RBC) [Entitic vol] 89.6 fL Normal 80.0-100.0 [facility] Comment on above: Order Comment: Speci men Type: BLOOD SPECIMEN Ordering Facility: [facility] Address: [address] [place] [address] Performed By: #### B HB, 16197-0, 53498-8, 81393-8, 2776- #### [facility] CLIA [id number] [address] [place] [address] [place] Nucleated RBC (Bld) [#/Vol] 10*3/uL Normal <0.01 [facility] Comment on above: Order Comment: Speci men Type: BLOOD SPECIMEN Ordering Facility: [facility] Address: [address] [place] [address] Performed By: #### B HB, 86835-3, 41480-2, 34549-5, 2776-1 #### [facility] CLIA [id number] [address] [place], [place] [id number] [place] [address] [place] Platelet mean volume (Bld) [Entitic vol] 10.6 fL Normal 9.0-12.7 [facility] Comment on above: Order Comment: Speci men Type: BLOOD SPECIMEN Ordering Facility: [facility] Address: [address] [place] [address] Performed By: #### B HB, 28588-2, 94630-0, 27340-1, 7-1 #### [facility] CLIA [id number] [address] [place] [address] [place] Platelets (Bld) [#/Vol] 76 10*3/uL Low 150-400 [facility] Comment on above: Order Comment: Deanna wren Type: BLOOD SPECIMEN Ordering Facility: [facility] Address: [address] [place] [address] Result Comment: No c lot detected. Performed By: #### B [place], 60030-8, 90953-5, 88745-5, 2777-1 #### [facility] CLIA [id number] [address] [place] [address] [place] RBC (Bld) [#/Vol] 2.70 10*6/uL Low 4.20-6.00 [facility] Comment on above: Order Comment: Deanna wren Type: BLOOD SPECIMEN Ordering Facility: [facility] Address: [address] [place] [address] Performed By: #### B HB, 55135-6, 59660-7, 97535-1, 2777-1 #### [facility] CLIA [id number] [address] [place] [address] [place] WBC (Bld) [#/Vol] 4.06 10*3/uL Normal 3.70-11.00 [facility] Comment on above: Order Comment: Deanna wren Type: BLOOD SPECIMEN Ordering Facility: [facility] Address: [address] [place] [address] Performed By: #### B HB, 29347-3, 72093-1, 66518-8, 2777-1 #### [facility] CLIA [id number] [address] [place] CONSULTon 09-18-2023 CONSULT HNO ID: [id number] Author: REYMUNDO GOLDBERG MD Service: Nephrology Author Type: Physician Type: Consults Filed: 09/18/2023 15:48 Note Text: INPATIENT INITIAL NEPHROLOGY CONSULT SERVICE DATE: 09/18/2023 SERVICE TIME: 3:41 PM REASON FOR CONSULT: CKD4, vol OL. h/o liver transplant REQUESTING PHYSICIAN: DR Gutierrez PRIMARY CARE PHYSICIAN: Sanju Banerjee MD CC: Subjective Mr. 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 ED Work-Up: - BNP 31,884 - Afebrile. No leukocytosis. - Anemia, Hgb: 8.1. Thrombocytopenia, Plt: 74 - Glucose: 788. Hyponatremic: 133. Negative for Ketones. Recieved 5U SQ Admelog. 1.5L NSB and was started on an insulin gtt. - CXR: Mild basilar density greater on the left. This may reflect atelectasis and/or chronic parenchymal change. Consider superimposed aspiration/infection in the appropriate clinical setting. Suspected trace effusion. - COVID, Influenza A/B, RSV negative Patient with history of heart failure with preserved ejection fraction. Recent cardiac catheterization x 2 with reinsertion of 2 stent. Recent hospitalization for elevated LFT and underwent liver biopsy. Creatinine has been running between 3-4's lately. Patient is followed by [facility] digital program manager. Patient's CKD likely multifactorial including hypertension as well as sirolimus associated nephropathy. 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 Denies current abdominal tenderness, and no large volume ascites with need for paracentesis 02/06/2013. Plan: - ? Diuretics - will D/W nephrology Balance problem 06/19/2016 Bilateral leg edema 01/22/2020 BRVO (branch retinal vein occlusion) OS Cataract of both eyes Central retinal vein occlusion with macular edema of right eye Chronic lumbar pain 06/16/2020 Chronic pain of both ankles 12/13/2017 CKD (chronic kidney disease) stage 3, GFR 30-59 ml/min ([facility]) 06/19/[address] Vipul Perez [facility] CKD (chronic kidney disease) stage 4, GFR 15-29 ml/min ([facility]) 06/19/[address] 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 Plan: Continue pantoprazole 40mg qday. Elevated prostate specific antigen (PSA) 10/19/2016 Normal 10/2017 with free PSA at 44% Essential hypertension 05/18/2014 11/08/2014: Home BP Cuff Validated. Home BP: 167/94 pulse 79. Office BP: 157/91 pulse 76. Gastroesophageal reflux disease without esophagitis 08/24/2015 GIB (gastrointestinal bleeding) 01/13/2013 Patient presents with three episodes of BRBPR onset around 2pm 02/06/2013. He endorses a history of BRBPR during an admission at [facility] in December 2012 for which he states no workup or colonoscopy was performed. During his last admission at [facility] he endorses having passed old blood , and underwent EGD 01/31/13 showing a small polyp/hypertrophied fold at the cardia, severe portal hypertensive gastropathy in the entire stomach, and multiple superficial duodenal ulcers. EGD EUS performed 02/03/13 showed several portal hypertensive gastropathy, and normal endoscopic ultrasound examination of the previous area of concern (polyp vs. gastric fold). He was started on PPI BID and discharged 02/04/13 at which time hemoglobin was 8.6. In the ED 02/06/13, Hgb is 8.4, Hct 24.4, plt 41. Last colonoscopy was 2 years ago per patient, and he reports normal findings to be repeated in 2015. Etiologies of current episode includes internal hemorrhoids (no external hemorrhoids seen on examination), diverticular bleeding, AVM, varice Tony filter in place 04/06/2019 H/O right coronary artery stent placement 08/06/2023 History of alcohol abuse Quit 2011 History of (more content not included)... Normal [facility] CONSULT PROGon 09-18-2023 CONSULT PROG HNO ID: [id number] Author: OLIVE BAUGH MD Service: Endocrinology Author Type: Physician Type: Consult Progress Note Filed: 09/18/2023 12:54 Note Text: Endocrinology Progress Note IMPRESSION: Type 2 diabetes mellitus, insulin-requiring - increased insulin needs due to Prednisone use PLAN: Increase glargine to 8 units qam and qhs Increase lispro at meals to 8 units Supplemental insulin prn Check glucose ac and 2 hours pc Call covering rotary peel oven tender if glucose is less than 80 mg/dL or greater than 200 mg/dL. INTERVAL HISTORY: Is eating meals, awaiting transfer back to [facility] Current Facility-Administered Medications Medication Dose Route Frequency dextrose 40 % 15 g 15 g ORAL PRN Or glucagon 1 mg injection 1 mg INTRAMUSCULAR PRN Or dextrose 10% iv bolus 12.5 g INTRAVENOUS PRN clopidogrel 75 mg tab(s) (PLAVIX) 75 mg ORAL DAILY pantoprazole DR 40 mg tab(s) (PROTONIX) 40 mg ORAL DAILY aspirin 81 mg chewable tab(s) 81 mg ORAL DAILY NaCl 0.9% iv flush bag 20 mL INTRAVENOUS PRN predniSONE 20 mg tab(s) (DELTASONE) 20 mg ORAL DAILY furosemide 40 mg tab(s) (LASIX) 40 mg ORAL DAILY sertraline 25 mg tab(s) (ZOLOFT) 25 mg ORAL DAILY atorvastatin 40 mg tab(s) (LIPITOR) 40 mg ORAL AT BEDTIME carvedilol 25 mg tab(s) (COREG) 25 mg ORAL BID insulin lispro injection (rapid acting) (ADMElog) SUBCUTANEOUS w MEALS heparin 5,000 Units injection 5,000 Units SUBCUTANEOUS q 12 H insulin glargine 8 Units pen (long acting) 8 Units SUBCUTANEOUS DAILY (8 AM) insulin lispro 5 Units injection (rapid acting) (ADMElog) 5 Units SUBCUTANEOUS w MEALS [START ON 09/19/2023] dilTIAZem CD 240 mg cap(s) (CARDIZEM CD, CARTIA XT) 240 mg ORAL DAILY tacrolimus IR 1 mg cap(s) (PROGRAF) 1 mg ORAL BID PHYSICAL EXAM:BP 141/69 Pulse 73 Temp 36.4 ?C (97.5 ?F) (Oral) Resp 16 Ht 170.2 cm (5' 7 ) Wt 93.9 kg (207 lb 0.2 oz) SpO2 95% BMI 32.42 kg/m? General appearance: Well-appearing, obese (BMI greater than 30) septuagenarian male, alert, in no acute distress, well-hydrated, well nourished. Skin: Skin color, texture, turgor normal, no suspicious rashes or lesions Head: normocephalic, no masses, lesions, tenderness or abnormalities Eyes: Anicteric sclera. Pupils are equally round. Extraocular movements are intact. Ears: not examined Nose/Sinuses: Nares normal. No drainage or sinus tenderness. Oropharynx: Lips, mucosa, and tongue normal, teeth and gums not examined. Neck: Supple, no adenopathy; no palpable visible thyroid enlargement. Lungs: Breathing unlabored. Heart: RRR. No ectopy Abdomen: deferred LAB DATA: Fingerstick glucose readings reviewed. Latest Reference Range AND Units 09/18/23 04:30 Sodium 136 - 144 mmol/L 140 Potassium 3.7 - 5.1 mmol/L 4.0 Chloride 97 - 105 mmol/L 105 CO2 22 - 30 mmol/L 24 BUN 9 - 24 mg/dL 87 (H) Creatinine 0.73 - 1.22 mg/dL 3.53 (H) Glucose 74 - 99 mg/dL 266 (H) Calcium 8.5 - 10.2 mg/dL 9.2 Magnesium 1.7 - 2.3 mg/dL 1.9 Phosphorus 2.7 - 4.8 mg/dL 4.0 Anion Gap 9 - 18 mmol/L 11 eGFR >=60 mL/min/1.73m? 17 (L) (H): Data is abnormally high (L): Data is abnormally low Olive Baugh MD [facility] Endocrinology and Metabolism [place] [facility] September 18, 2023 12:45 PM Normal [facility] Magnesium SerPl-mCncon 09-18 Magnesium [Mass/Vol] 1.9 mg/dL Normal 1.7-2.3 [facility] Comment on above: Order Comment: Deanna wren Type: BLOOD SPECIMEN Ordering Facility: [facility] Address: [address] [place] [address] Performed By: #### [place], 25521-7, 39791-8, 21000-6, 2777-1 #### [facility] CLIA [id number] [address] Phosphate SerPl-mCncon 09-18 Phosphate [Mass/Vol] 4.0 mg/dL Normal 2.7-4.8 [facility] Comment on above: Order Comment: Deanna wren Type: BLOOD SPECIMEN Ordering Facility: [facility] Address: [address] [place] [address] Performed By: #### [place], 87756-7, 83341-1, 12172-6, 2777-1 #### [facility] CLIA [id number] [address] THERAPY NTon 09-18-2023 THERAPY NT HNO ID: [id number] Author: MARCELO NEWTON OT/L Service: Occupational Therapy Author Type: Occupational Therapist Type: Therapy (PT/OT/Speech/Resp) Filed: 09/18/2023 14:58 Note Text: Summary: OT Evaluation Occupational Therapy Evaluation Summary SERVICE DATE: 09/18/2023 SERVICE TIME: 1406 to 1438 ROOM: [id number] OT 6 Clicks Score: 16 DISCHARGE RECOMMENDATIONS Subacute/SNF Recommended Discharge Disposition Due to: Patient requires daily, facility-based rehabilitation from at least one discipline due to:, ADL impairment resulting in caregiver dependence, decline in functional status requiring daily skilled care ASSESSMENT Response to Therapy Interventions: Low Activity Tolerance Pleasant and cooperative. Required Minimal Assist for bed mobility and Moderate Assist for lower body dressing. Tolerated sitting EOB for ADL for 3 min, however, c/o significant fatigue and need to return to supine. Asymptomatic otherwise. RN reported recent repeat glucose 202. + Retro LOB while seated EOB. PRECAUTIONS Lines/Tubes/Drains, Diabetic, Fall Risk, Bed/Chair Alarm CURRENT HOSPITAL COURSE Presents to ED with c/o elevated blood glucose (over 500 per OP labs, 788 in ED). Admitted to ICU for mgmt of hyperglycemia. 09/17: Transferred out of ICU. 09/18: Awaiting transfer to Main [place] transplant unit. 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, recurrent incarcerated incisional hernia, encephalopathy, vertigo HOME LIVING Patient Lives With: Spouse Assistance Available: 24-Hour Entry To Home: Stairs, With Rail Number Of Stairs Into Home: 2 Number Of Stairs To Bed/Bath: 6 (split level, 6 up to bedroom, 6 down to other bedroom/bathroom/basement) Stairs to Bed/Bath with: No Rail Tub/Shower Type: walk-in Equipment Owned: Grab Bars- Shower, Shower Chair, Walker- Wheeled, Wheelchair- Manual, Med Management Device, Commode- Bedside, Commode- Raised PRIOR FUNCTIONAL LEVEL Required Assistance Assistance Required With: Medication Management, Shopping, Transportation, Meals, Laundry, Cleaning Per pt: Sleeps in recliner, no use of assistive device (furniture walks), PRN assist with showering, indep other ADLs. Spouse organizes medications, uses pill box. Reports 2 falls in last 6 months (legs gave out). Spouse completes IADLs and provides transportation. SUBJECTIVE I don't have good balance. Spouse present initially and then stepped out of room for most of evaluation. Patient reports to be up to bathroom earlier today w/nursing. RN reports patient unsteady but did pretty well . COGNITION Responsiveness: Alert, Awake Follows Commands: Cueing Needed, 2-step Commands Cueing to Follow Commands: Minimum The OT Cog 6 is an occupational therapy tool designed to measure six basic cognitive elements that are required to engage in activities of daily living, including Arousal, Behavior, Orientation, Attention, Command Following, and Functional/Automatic Task Participation. It is designed as a pre- and post-assessment in order to track changes in individual cognitive domain scores and total scores during each session and across multiple sessions. Cog 6 Start of Session Total Points (Max Score = 24): 23 (09/18/23) Cog 6 End of Session Total Points (Max Score = 24): 24 (09/18/23) 4AT Score: 2 (09/18/23) Delirium Positive/Negative: Negative (09/18/23) THERAPY DIAGNOSIS Decreased activities of daily living (ADL), Reduced mobility-other, General symptoms and signs-other TREATMENT INTERVENTIONS Evaluation, Self Residential Management (19084) Timed Code Treatment (minutes): 15 Skilled Treatment Time (minutes): 30 TRAINING AND EDUCATION PROVIDED Bed Mobility, Discharge Planning, Activity Adaptation/Compensatory Strategies, Expected Functional Level, Lower Extremity Dressing, Positioning, Role of Occupational Therapy, Sitting Balance to Improve [place] with ADLs/Self-Care THERAPEUTIC SKILLS USED Activity Dosing, Assessment of Tolerance Including Vitals Response to Activity, Cues for Sequencing/Proper Technique for Activity, Cuing Tactile, Cuing Verbal, Cuing Visual, Physical Assist, Therapeutic Use of Self FUNCTIONAL STATUS /per clinical judgment Activities of Daily Living Assist Level Additional Information Feeding Independent Grooming Contact Guard Assistance, Set Up, Additional Information if seated EOB Bathing Upper Body Contact Guard Assistance, Set Up, Additional Information if seated EOB Bathing Lower Body Moderate Assistance Dressing Upper Body Contact Guard Assistance, Se (more content not included)... Normal [facility] Ammonia Plas-sCncon 09-17-19 24 Ammonia (P) [Moles/Vol] 16 umol/L Normal 16-60 [facility] Comment on above: Order Comment: Speci men Type: BLOOD SPECIMENOrdering Facility: [facility] Address: [address] [place] [address] Performed By: #### 1 6362-6 ####[facility] [id number] [place] [address] [place] Basic metabolic 2000 panelon 09-17-2023 Anion gap [Moles/Vol] 13 mmol/L Normal 9-18 [facility] Comment on above: Order Comment: Speci men Type: BLOOD SPECIMEN Ordering Facility: [facility] Address: [address] [place] [address] Performed By: #### [place], 32636-8, 25541-2, 75487-9, 2777-1 #### [facility] CLIA [id number] [address] [place] [address] [place] Calcium [Mass/Vol] 9.2 mg/dL Normal 8.5-10.2 [facility] Comment on above: Order Comment: Speci men Type: BLOOD SPECIMEN Ordering Facility: [facility] Address: [address] [place] [address] Performed By: #### B HB, 47406-0, 02095-4, 57408-9, 2777-1 #### [facility] CLIA [id number] [address] [place] [address] [place] Chloride [Moles/Vol] 103 mmol/L Normal 97-105 [facility] Comment on above: Order Comment: Speci men Type: BLOOD SPECIMEN Ordering Facility: [facility] Address: [address] [place] [address] Performed By: #### B HB, 03708-1, 25849-8, 22627-8, 2777-1 #### [facility] CLIA [id number] [address] [place] [address] [place] CO2 [Moles/Vol] 22 mmol/L Normal 22-30 [facility] Comment on above: Order Comment: Speci men Type: BLOOD SPECIMEN Ordering Facility: [facility] Address: [address] [place] [address] Performed By: #### B HB, 35194-3, 94764-5, 09452-1, 2777-1 #### [facility] CLIA [id number] [address] [place] [address] [place] Creatinine [Mass/Vol] 3.46 mg/dL High 0.73-1.22 [facility] Comment on above: Order Comment: Denana wren Type: BLOOD SPECIMEN Ordering Facility: [facility] Address: [address] [place] [address] Performed By: #### B HB, 99079-0, 82816-2, 32467-8, 2777-1 #### [facility] CLIA [id number] [address] Creatinine and Glomerular filtration rate.predicted panel (S/P/Bld) 17 mL/min/1.73m??? Low >=60 [facility] Comment on above: Order Comment: Deanna wren Type: BLOOD SPECIMEN Ordering Facility: [facility] Address: [address] [place] [address] Result Comment: Kya mated Glomerular Filtration Rate (eGFR) is calculated using the 2020 CKD-EPI creatinine equation. This equation utilizes serum creatinine, sex, and age as parameters. The creatinine assay has traceable calibration to isotope dilution-mass spectrometry. Refer to KDIGO guidelines for clinical interpretation. In patients with unstable renal function, e.g. those with acute kidney injury, the eGFR may not accurately reflect actual GFR. Performed By: #### B HB, 09225-4, 08985-1, 98434-2, 2777-1 #### [facility] CLIA [id number] [address] OF [facility] Glucose [Mass/Vol] 399 mg/dL High 74-99 [facility] Comment on above: Order Comment: Deanna wren Type: BLOOD SPECIMEN Ordering Facility: [facility] Address: [address] [place] [address] Result Comment: The [employer] Diabetes Association (ADA) provides guidance for cutoff values for fasting glucose and random glucose. The ADA defines fasting as no caloric intake for at least 8 hours. Fasting plasma glucose results between 100 to 125 mg/dL indicate increased risk for diabetes (prediabetes). Fasting plasma glucose results greater than or equal to 126 mg/dL meet the criteria for diagnosis of diabetes. In the absence of unequivocal hyperglycemia, results should be confirmed by repeat testing. In a patient with classic symptoms of hyperglycemia or hyperglycemic crisis, random plasma glucose results greater than or equal to 200 mg/dL meet the criteria for diagnosis of diabetes. Reference: Standards of Medical Care in Diabetes 2016, [employer] Diabetes Association. Diabetes Care. 2016.39(Suppl 1). Performed By: #### [place], 37712-6, 75433-5, 21261-7, 2777-1 #### [facility] CLIA [id number] [address] [place] [address] [place] Potassium [Moles/Vol] 3.9 mmol/L Normal 3.7-5.1 [facility] Comment on above: Order Comment: Klaudiai men Type: BLOOD SPECIMEN Ordering Facility: [facility] Address: [address] [place] [address] Performed By: #### B HB, 19301-9, 51928-4, 11845-9, 2777-1 #### [facility] CLIA [id number] [address] [place] [address] [place] Sodium [Moles/Vol] 138 mmol/L Normal 136-144 [facility] Comment on above: Order Comment: Klaudiai men Type: BLOOD SPECIMEN Ordering Facility: [facility] Address: [address] [place] [address] Performed By: #### B HB, 96518-7, 45378-6, 84515-8, 2777-1 #### [facility] CLIA [id number] [address] [place] [address] [place] Urea nitrogen [Mass/Vol] 83 mg/dL High 9-24 [facility] Comment on above: Order Comment: Klaudiai men Type: BLOOD SPECIMEN Ordering Facility: [facility] Address: [address] [place] [address] Performed By: #### B HB, 76781-6, 92990-9, 37223-6, 2777-1 #### [facility] CLIA [id number] [address] [place] [address] [place] Anion gap [Moles/Vol] 16 mmol/L Normal 9-18 [facility] Comment on above: Order Comment: Klaudiai men Type: BLOOD SPECIMEN Ordering Facility: [facility] Address: [address], [place] [address] Performed By: #### B HB, 15534-0, 09449-8, 58954-9, 2777-1 #### [facility] CLIA [id number] [address] [place] [address] [place] Calcium [Mass/Vol] 9.1 mg/dL Normal 8.5-10.2 [facility] Comment on above: Order Comment: Speci men Type: BLOOD SPECIMEN Ordering Facility: [facility] Address: [address] [place] [address] Performed By: #### B HB, 50919-6, 56077-4, 81016-2, 2777-1 #### [facility] CLIA [id number] [address] [place] [address] [place] Chloride [Moles/Vol] 95 mmol/L Low 97-105 [facility] Comment on above: Order Comment: Speci men Type: BLOOD SPECIMEN Ordering Facility: [facility] Address: [address] [place] [address] Performed By: #### B HB, 45327-2, 94263-1, 30236-5, 2777-1 #### [facility] CLIA [id number] [address] [place] [address] [place] CO2 [Moles/Vol] 22 mmol/L Normal 22-30 [facility] Comment on above: Order Comment: Speci men Type: BLOOD SPECIMEN Ordering Facility: [facility] Address: [address] [place] [address] Performed By: #### B HB, 34950-7, 52492-6, 16524-4, 2777-1 #### [facility] CLIA [id number] [address] [place] [address] [place] Creatinine [Mass/Vol] 3.49 mg/dL High 0.73-1.22 [facility] Comment on above: Order Comment: Speci men Type: BLOOD SPECIMEN Ordering Facility: [facility] Address: [address] [place] [address] Performed By: #### B HB, 11158-0, 67931-0, 19123-0, 2777-1 #### [facility] CLIA [id number] [address] [place] [address] [place] Creatinine and Glomerular filtration rate.predicted panel (S/P/Bld) 17 mL/min/1.73m??? Low >=60 [facility] Comment on above: Order Comment: Deanna wren Type: BLOOD SPECIMEN Ordering Facility: [facility] Address: [address] [place] [address] Result Comment: Kya mated Glomerular Filtration Rate (eGFR) is calculated using the 2020 CKD-EPI creatinine equation. This equation utilizes serum creatinine, sex, and age as parameters. The creatinine assay has traceable calibration to isotope dilution-mass spectrometry. Refer to KDIGO guidelines for clinical interpretation. In patients with unstable renal function, e.g. those with acute kidney injury, the eGFR may not accurately reflect actual GFR. Performed By: #### B [place], 80661-7, 45694-9, 23640-6, 7-1 #### [facility] CLIA [id number] [address] [place] [address] [place] Glucose [Mass/Vol] 788 mg/dL High 74-99 [facility] Comment on above: Order Comment: Deanna wren Type: BLOOD SPECIMEN Ordering Facility: [facility] Address: [address] [place] [address] Result Comment: The [employer] Diabetes Association (ADA) provides guidance for cutoff values for fasting glucose and random glucose. The ADA defines fasting as no caloric intake for at least 8 hours. Fasting plasma glucose results between 100 to 125 mg/dL indicate increased risk for diabetes (prediabetes). Fasting plasma glucose results greater than or equal to 126 mg/dL meet the criteria for diagnosis of diabetes. In the absence of unequivocal hyperglycemia, results should be confirmed by repeat testing. In a patient with classic symptoms of hyperglycemia or hyperglycemic crisis, random plasma glucose results greater than or equal to 200 mg/dL meet the criteria for diagnosis of diabetes. Reference: Standards of Medical Care in Diabetes 2016, [employer] Diabetes Association. Diabetes Care. 2016.39(Suppl 1). Performed By: #### B HB, 46461-0, 85718-1, 21891-7, 2777-1 #### [facility] CLIA [id number] [address] [place] [address] [place] Potassium [Moles/Vol] 4.3 mmol/L Normal 3.7-5.1 [facility] Comment on above: Order Comment: Speci men Type: BLOOD SPECIMEN Ordering Facility: [facility] Address: [address] [place] [address] Performed By: #### B HB, 15036-7, 23495-9, 78703-2, 2777-1 #### [facility] CLIA [id number] [address] [place] [address] [place] Sodium [Moles/Vol] 133 mmol/L Low 136-144 [facility] Comment on above: Order Comment: Speci men Type: BLOOD SPECIMEN Ordering Facility: [facility] Address: [address] [place] [address] Performed By: #### B HB, 40204-3, 26701-4, 14530-8, 2777-1 #### [facility] CLIA [id number] [address] [place] Urea nitrogen [Mass/Vol] 87 mg/dL High 9-24 [facility] Comment on above: Order Comment: Speci men Type: BLOOD SPECIMEN Ordering Facility: [facility] Address: [address] [place] [address] Performed By: #### B HB, 29593-3, 91940-6, 73685-8, 2777-1 #### [facility] CLIA [id number] [address] [place] CBC W Auto Differential pane l (Bld)on 09-17-2023 Anisocytosis Ql (Bld) Present Normal [facility] Comment on above: Order Comment: Speci men Type: BLOOD SPECIMENOrdering Facility: [facility] Address: [address] [place] [address] Performed By: #### 5 7021-8 ####[facility] [id number] [address] STATES OF [facility] Basophils (Bld) [#/Vol] 0.00 10*3/uL Normal <0.11 [facility] Comment on above: Order Comment: Speci men Type: BLOOD SPECIMENOrdering Facility: [facility] Address: [address] [place], [place] [address] Performed By: #### 5 7021-8 ####[facility] [id number] [place] [address] [place] Basophils/100 WBC (Bld) 0.0 % Normal [facility] Comment on above: Order Comment: Speci men Type: BLOOD SPECIMENOrdering Facility: [facility] Address: [address] [place] [address] Performed By: #### 5 7021-8 ####[facility] [id number] [place] [address] [place] Differential cell count method Nom (Bld) Manual Normal [facility] Comment on above: Order Comment: Speci men Type: BLOOD SPECIMENOrdering Facility: [facility] Address: [address] [place] [address] Performed By: #### 5 7021-8 ####[facility] [id number] [place] [address] [place] Eosinophils (Bld) [#/Vol] 0.00 10*3/uL Normal <0.46 [facility] Comment on above: Order Comment: Speci men Type: BLOOD SPECIMENOrdering Facility: [facility] Address: [address] [place] [address] Performed By: #### 5 7021-8 ####[facility] [id number] [address] [place] Eosinophils/100 WBC (Bld) 0.0 % Normal [facility] Comment on above: Order Comment: Speci men Type: BLOOD SPECIMENOrdering Facility: [facility] Address: [address] [place] [address] Performed By: #### 5 7021-8 ####[facility] [id number] [place] [address] [place] Erythrocyte distribution width (RBC) [Ratio] 15.8 % High 11.5-15.0 [facility] Comment on above: Order Comment: Speci men Type: BLOOD SPECIMENOrdering Facility: [facility] Address: [address] [place] [address] Performed By: #### 5 7021-8 ####[facility] [id number] [address] [place] Hematocrit (Bld) [Volume fraction] 24.7 % Low 39.0-51.0 [facility] Comment on above: Order Comment: Speci men Type: BLOOD SPECIMENOrdering Facility: [facility] Address: [address] [place] [address] Performed By: #### 5 7021-8 ####[facility] [id number] [address] [place] Hemoglobin (Bld) [Mass/Vol] 8.1 g/dL Low 13.0-17.0 [facility] Comment on above: Order Comment: Speci men Type: BLOOD SPECIMENOrdering Facility: [facility] Address: [address] [place] [address] Performed By: #### 5 7021-8 ####[facility] [id number] [address] [place] Lymphocytes (Bld) [#/Vol] 0.14 10*3/uL Low 1.00-4.00 [facility] Comment on above: Order Comment: Speci men Type: BLOOD SPECIMENOrdering Facility: [facility] Address: [address] [place] [address] Performed By: #### 5 7021-8 ####[facility] [id number] [address] [place] Lymphocytes/100 WBC (Bld) 3.0 % Normal [facility] Comment on above: Order Comment: Speci men Type: BLOOD SPECIMENOrdering Facility: [facility] Address: [address] [place] [address] Performed By: #### 5 7021-8 ####[facility] [id number] [address] [place] MCH (RBC) [Entitic mass] 29.2 pg Normal 26.0-34.0 [facility] Comment on above: Order Comment: Speci men Type: BLOOD SPECIMENOrdering Facility: [facility] Address: [address] [place] [address] Performed By: #### 5 7021-8 ####[facility] [id number] [address] MCHC (RBC) [Mass/Vol] 32.8 g/dL Normal 30.5-36.0 [facility] Comment on above: Order Comment: Speci men Type: BLOOD SPECIMENOrdering Facility: [facility] Address: [address] [place] [address] Performed By: #### 5 7021-8 ####[facility] [id number] [address] MCV (RBC) [Entitic vol] 89.2 fL Normal 80.0-100.0 [facility] Comment on above: Order Comment: Speci men Type: BLOOD SPECIMENOrdering Facility: [facility] Address: [address] [place] [address] Performed By: #### 5 7021-8 ####[facility] [id number] [address] Monocytes (Bld) [#/Vol] 0.14 10*3/uL Normal <0.87 [facility] Comment on above: Order Comment: Speci men Type: BLOOD SPECIMENOrdering Facility: [facility] Address: [address] [place] [address] Performed By: #### 5 7021-8 ####[facility] [id number] [address] Monocytes/100 WBC (Bld) 3.0 % Normal [facility] Comment on above: Order Comment: Speci men Type: BLOOD SPECIMENOrdering Facility: [facility] Address: [address] [place] [address] Performed By: #### 5 7021-8 ####[facility] [id number] [address] MYELO% 1.0 % Normal [facility] Comment on above: Order Comment: Speci men Type: BLOOD SPECIMENOrdering Facility: [facility] Address: [address] [place] [address] Performed By: #### 5 7021-8 ####[facility] [id number] [place] [address] [place] Neutrophils (Bld) [#/Vol] 4.22 10*3/uL Normal 1.45-7.50 [facility] Comment on above: Order Comment: Speci men Type: BLOOD SPECIMENOrdering Facility: [facility] Address: [address] [place] [address] Performed By: #### 5 7021-8 ####[facility] [id number] [place] [address] [place] Neutrophils/100 WBC (Bld) 93.0 % Normal [facility] Comment on above: Order Comment: Speci men Type: BLOOD SPECIMENOrdering Facility: [facility] Address: [address] [place] [address] Performed By: #### 5 7021-8 ####[facility] [id number] [place] [address] [place] Nucleated RBC (Bld) [#/Vol] 10*3/uL Normal <0.01 [facility] Comment on above: Order Comment: Speci men Type: BLOOD SPECIMENOrdering Facility: [facility] Address: [address] [place] [address] Performed By: #### 5 7021-8 ####[facility] [id number] [address] [place] Nucleated RBC/100 WBC (Bld) [Ratio] 0.0 /100 WBC Normal [facility] Comment on above: Order Comment: Speci men Type: BLOOD SPECIMENOrdering Facility: [facility] Address: [address] [place] [address] Performed By: #### 5 7021-8 ####[facility] [id number] [place] [address] [place] Ovalocytes LM Ql (Bld) Few Normal [facility] Comment on above: Order Comment: Speci men Type: BLOOD SPECIMENOrdering Facility: [facility] Address: [address] [place] [address] Performed By: #### 5 7021-8 ####[facility] [id number] [address] [place] Platelet mean volume (Bld) [Entitic vol] 10.1 fL Normal 9.0-12.7 [facility] Comment on above: Order Comment: Speci men Type: BLOOD SPECIMENOrdering Facility: [facility] Address: [address] [place] [address] Performed By: #### 5 7021-8 ####[facility] LABORATORYCLIA [id number] [place] [address] [facility] Platelets (Bld) [#/Vol] 74 10*3/uL Low 150-400 [facility] Comment on above: Order Comment: Speci men Type: BLOOD SPECIMENOrdering Facility: [facility] Address: [address] [place] [address] Result Comment: No c lot detected. Performed By: #### 5 7021-8 ####[facility] LABORATORYCLIA [id number] [address] Platelets Estimate (Bld) [#/Vol] Decreased Normal [facility] Comment on above: Order Comment: Speci men Type: BLOOD SPECIMENOrdering Facility: [facility] Address: [address] [place] [address] Performed By: #### 5 7021-8 ####[facility] LABORATORYCLIA [id number] [address] [place] RBC (Bld) [#/Vol] 2.77 10*6/uL Low 4.20-6.00 [facility] Comment on above: Order Comment: Speci men Type: BLOOD SPECIMENOrdering Facility: [facility] Address: [address] [place] [address] Performed By: #### 5 7021-8 ####[facility] LABORATORYCLIA [id number] [address] [place] Reviewed: see result s of individual morphologies Normal [facility] Comment on above: Order Comment: Speci men Type: BLOOD SPECIMENOrdering Facility: [facility] Address: [address] [place] [address] Performed By: #### 5 7021-8 ####FLOR LABORATORYCLIA [id number] [address] WBC (Bld) [#/Vol] 4.54 10*3/uL Normal 3.70-11.00 [facility] Comment on above: Order Comment: Speci men Type: BLOOD SPECIMENOrdering Facility: [facility] Address: [address] [place] [address] Performed By: #### 5 7021-8 ####FLOR LABORATORYCLIA [id number] [address] WBC Left Shift Ql (Bld) Present Normal [facility] Comment on above: Order Comment: Speci men Type: BLOOD SPECIMENOrdering Facility: [facility] Address: [address] [place] [address] Performed By: #### 5 7021-8 ####[facility]ORATORYCLIA [id number] [address] CBC panel Auto (Bld)on 09-17 Erythrocyte distribution width (RBC) [Ratio] 15.9 % High 11.5-15.0 [facility] Comment on above: Order Comment: Speci men Type: BLOOD SPECIMEN Ordering Facility: [facility] Address: [address] [place] [address] Performed By: #### [place], 26364-7, 91188-3, 63833-4, 2777-1 #### [facility] CLIA [id number] [address] Hematocrit (Bld) [Volume fraction] 23.0 % Low 39.0-51.0 [facility] Comment on above: Order Comment: Speci men Type: BLOOD SPECIMEN Ordering Facility: [facility] Address: [address] [place] [address] Performed By: #### B HB, 65849-2, 04875-1, 09421-9, 2777-1 #### [facility] CLIA [id number] [address] Hemoglobin (Bld) [Mass/Vol] 7.5 g/dL Low 13.0-17.0 [facility] Comment on above: Order Comment: Speci men Type: BLOOD SPECIMEN Ordering [facility]: [facility] Address: [address] [place] [address] Performed By: #### [place], 33428-4, 02210-4, 90065-6, 7-1 #### [facility] CLIA [id number] [address] MCH (RBC) [Entitic mass] 28.4 pg Normal 26.0-34.0 [facility] Comment on above: Order Comment: Speci men Type: BLOOD SPECIMEN Ordering Facility: [facility] Address: [address] [place] [address] Performed By: #### [place], 58637-5, 18002-7, 84671-7, 7-1 #### [facility] CLIA [id number] [address] MCHC (RBC) [Mass/Vol] 32.6 g/dL Normal 30.5-36.0 [facility] Comment on above: Order Comment: Speci men Type: BLOOD SPECIMEN Ordering Facility: [facility] Address: [address] [place] [address] Performed By: #### B HB, 77544-2, 40072-2, 64054-9, 2776-1 #### [facility] CLIA [id number] [address] MCV (RBC) [Entitic vol] 87.1 fL Normal 80.0-100.0 [facility] Comment on above: Order Comment: Speci men Type: BLOOD SPECIMEN Ordering [facility]: [facility] Address: [address] [place] [address] Performed By: #### B [place], 75302-6, 39165-2, 91431-3, 7-1 #### [facility] CLIA [id number] [address] Nucleated RBC (Bld) [#/Vol] 10*3/uL Normal <0.01 [facility] Comment on above: Order Comment: Speci men Type: BLOOD SPECIMEN Ordering [facility]: [facility] Address: [address] [place] [address] Performed By: #### B HB, 15787-3, 91727-8, 52868-3, 7-1 #### [facility] CLIA [id number] [address] [place] [address] [place] Platelet mean volume (Bld) [Entitic vol] 10.4 fL Normal 9.0-12.7 [facility] Comment on above: Order Comment: Speci men Type: BLOOD SPECIMEN [facility]ing [facility]: [facility] Address: [address] [place] [address] Performed By: #### B HB, 05709-4, 83314-8, 58804-4, 7-1 #### [facility] CLIA [id number] [address] [place] [address] [place] Platelets (Bld) [#/Vol] 71 10*3/uL Low 150-400 [facility] Comment on above: Order Comment: Speci men Type: BLOOD SPECIMEN Ordering [facility]: [facility] Address: [address] [place] [address] Result Comment: No c lot detected. Performed By: #### B HB, 26020-7, 89129-4, 64946-6, 7-1 #### [facility] CLIA [id number] [address] [place] [address] [place] RBC (Bld) [#/Vol] 2.64 10*6/uL Low 4.20-6.00 [facility] Comment on above: Order Comment: Speci men Type: BLOOD SPECIMEN Ordering [facility]: [facility] Address: [address] [place] [address] Performed By: #### B HB, 68991-6, 77265-4, 24057-3, 2777-1 #### [facility] CLIA [id number] [address] [place] [address] [place] WBC (Bld) [#/Vol] 4.73 10*3/uL Normal 3.70-11.00 [facility] Comment on above: Order Comment: Speci men Type: BLOOD SPECIMEN Ordering Facility: [facility] Address: [address] [place] [id number] Performed By: #### [place], 66725-3, 74774-2, 55722-3, 2777-1 #### [facility] CLIA [id number] [address] [place] [id number] [place] [address] OF [facility] CONSULTon 09-17-2023 CONSULT HNO ID: [id number] Author: AFUA GREENBERG MD Service: Endocrinology Author Type: Physician Type: Consults Filed: 09/17/2023 12:15 Note Text: DIABETES INITIAL CONSULT PATIENT NAME: Isaias Sanon SERVICE DATE: 09/17/2023 REASON FOR CONSULT: Hyperglycemia REQUESTING PHYSICIAN: Sandra Stern PRIMARY CARE PHYSICIAN: Sanju Banerjee MD Subjective HISTORY OF PRESENT ILLNESS: Mr. Sanon is a 78 year old male with PMHx significant for HTN, HLD, CKD, CHF, ICH, CAD s/p PCI, AAA, type 2 DM, CKD stage 4, duodenal ulcer, GERD, lupus anticoagulant syndrome, DVT and cirrhosis 2/2 ETOH abuse and hemochromatosis s/p liver transplant (2012) admitted to the hospital with hyperglycemia. Patient reports frequent urination and weight loss in the last 3 weeks. In addition, he has also been feeling very weak. At the time of admission, his BG was 788, serum sodium- 133, ketones were negative His current diabetes regimen is IV insulin. Home diabetes regimen- none Steroid dose- Prednisone 20 mg daily Regarding symptoms of hyperglycemia, he is experiencing polyuria, polydipsia, nocturia, and rapid weight loss. 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 Denies current abdominal tenderness, and no large volume ascites with need for paracentesis 02/06/2013. Plan: - ? Diuretics - will D/W nephrology Balance problem 06/19/2016 Bilateral leg edema 01/22/2020 BRVO (branch retinal vein occlusion) OS Cataract of both eyes Central retinal vein occlusion with macular edema of right eye Chronic lumbar pain 06/16/2020 Chronic pain of both ankles 12/13/2017 CKD (chronic kidney disease) stage 3, GFR 30-59 ml/min ([facility]) 06/19/[address] Vipul Perez [facility] CKD (chronic kidney disease) stage 4, GFR 15-29 ml/min ([facility]) 06/19/[address] 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 Plan: Continue pantoprazole 40mg qday. Elevated prostate specific antigen (PSA) 10/19/2016 Normal 10/2017 with free PSA at 44% Essential hypertension 05/18/2014 11/08/2014: Home BP Cuff Validated. Home BP: 167/94 pulse 79. Office BP: 157/91 pulse 76. Gastroesophageal reflux disease without esophagitis 08/24/2015 GIB (gastrointestinal bleeding) 01/13/2013 Patient presents with three episodes of BRBPR onset around 2pm 02/06/2013. He endorses a history of BRBPR during an admission at [facility] in December 2012 for which he states no workup or colonoscopy was performed. During his last admission at [facility] he endorses having passed old blood , and underwent EGD 01/31/13 showing a small polyp/hypertrophied fold at the cardia, severe portal hypertensive gastropathy in the entire stomach, and multiple superficial duodenal ulcers. EGD EUS performed 02/03/13 showed several portal hypertensive gastropathy, and normal endoscopic ultrasound examination of the previous area of concern (polyp vs. gastric fold). He was started on PPI BID and discharged 02/04/13 at which time hemoglobin was 8.6. In the ED 02/06/13, Hgb is 8.4, Hct 24.4, plt 41. Last colonoscopy was 2 years ago per patient, and he reports normal findings to be repeated in 2014. Etiologies of current episode includes internal hemorrhoids (no external hemorrhoids seen on examination), diverticular bleeding, AVM, varice [place] filter in place 04/06/2019 H/O right coronary artery stent placement 08/06/2023 History of alcohol abuse Quit 2011 History of cirrhosis of liver Secondary to alcohol abuse and hemochromatosis. Sees Dr. Doss (at [facility]): Secondary to alcohol abuse and hemochromatosis, currently on transplant list. MELD Score: 35 Plan: - continue home medications: nadolol, norfloxacin, zinc, lactulose, rifaximin, folic acid. 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 Currently alert, oriented x3, no signs of decompensated encephalopathy. Plan: - continue home regimen of la (more content not included)... [facility] ED NOTEon 09-17-2023 ED NOTE HNO ID: [id number] Author: LIZBET STEINBERG RN Service: ? Author Type: Registered Nurse Type: ED Notes Filed: 09/16/2023 22:39 Note Text: Pt had blood testing today, glucose came back in the 500's and was told to come in. [facility] ED PROV NOTEon 09-17-2023 ED PROV NOTE HNO ID: [id number] Author: HALEY SINGH MD Service: Emergency Medicine Author Type: Physician Type: ED Provider Notes Filed: 09/17/2023 00:01 Note Text: ED Provider Note Patient Name: Isaias Sanon : 1945 SERVICE DATE: 09/16/23 History Patient presents with: High Blood Sugar: 500's This is a 78-year-old male was had a liver transplant in 2012. The patient is here with his grandson and . In his records he states he is a type II diabetic and his last hemoglobin A1c 2 months ago was 6.3. Patient had blood sugar elevated today at 569. He has some thirst. He said some weakness. Patient's had a history of hepatic encephalopathy. Patient's had a cough. He was on an antibiotic but is not on any now. Patient has been taking some Lasix for peripheral edema. The patient was advised to come to the emergency department for further evaluation. 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 Denies current abdominal tenderness, and no large volume ascites with need for paracentesis 02/06/2013. Plan: - ? Diuretics - will D/W nephrology Balance problem 06/19/2016 Bilateral leg edema 01/22/2020 BRVO (branch retinal vein occlusion) OS Cataract of both eyes Central retinal vein occlusion with macular edema of right eye Chronic lumbar pain 06/16/2020 Chronic pain of both ankles 12/13/2017 CKD (chronic kidney disease) stage 3, GFR 30-59 ml/min ([facility]) 06/19/[address] Vipul Perez [facility] CKD (chronic kidney disease) stage 4, GFR 15-29 ml/min ([facility]) 06/19/[address] 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 Plan: Continue pantoprazole 40mg qday. Elevated prostate specific antigen (PSA) 10/19/2016 Normal 10/2017 with free PSA at 44% Essential hypertension 05/18/2014 11/08/2014: Home BP Cuff Validated. Home BP: 167/94 pulse 79. Office BP: 157/91 pulse 76. Gastroesophageal reflux disease without esophagitis 08/24/2015 GIB (gastrointestinal bleeding) 01/13/2013 Patient presents with three episodes of BRBPR onset around 2pm 02/06/2013. He endorses a history of BRBPR during an admission at [facility] in December 2012 for which he states no workup or colonoscopy was performed. During his last admission at [facility] he endorses having passed old blood , and underwent EGD 01/31/13 showing a small polyp/hypertrophied fold at the cardia, severe portal hypertensive gastropathy in the entire stomach, and multiple superficial duodenal ulcers. EGD EUS performed 02/03/13 showed several portal hypertensive gastropathy, and normal endoscopic ultrasound examination of the previous area of concern (polyp vs. gastric fold). He was started on PPI BID and discharged 02/04/13 at which time hemoglobin was 8.6. In the ED 02/06/13, Hgb is 8.4, Hct 24.4, plt 41. Last colonoscopy was 2 years ago per patient, and he reports normal findings to be repeated in 2014. Etiologies of current episode includes internal hemorrhoids (no external hemorrhoids seen on examination), diverticular bleeding, AVM, varice [place] filter in place 04/06/2019 History of alcohol abuse Quit 2011 History of cirrhosis of liver Secondary to alcohol abuse and hemochromatosis. Sees Dr. Doss (at [facility]): Secondary to alcohol abuse and hemochromatosis, currently on transplant list. MELD Score: 35 Plan: - continue home medications: nadolol, norfloxacin, zinc, lactulose, rifaximin, folic acid. 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 Currently alert, oriented x3, no signs of decompensated encephalopathy. Plan: - continue home regimen of lactulose, rifaximin and zinc History of hemochromatosis 08/24/2015 Has not been an issue since liver transplant. Hyperbilirubinemia 01/13/2013 Hypertensive retinopathy mild ICH (intracerebral hemorrhage) (HCC) Imbalance 06/01/2014 Noted at PT eval on 05/31/2014. Incisional hernia 04/07/2014 Liver transplanted (HCC) 04/07/[address] 10/19/ (more content not included)... Normal [facility] FLUABV+SARS-CoV-2+RSV Pnl Re sp MAYTE+probeon 09-17-2023 FLUABV+SARS-CoV-2+R SV Pnl Resp MAYTE+probe COVID 19 RESULT: Not detected The method used is RT-PCR or an equivalent NAAT method. Reference Range(the expected result in uninfected individuals): Not detected INFLUENZA A PCR: Not detected INFLUENZA B PCR: Not detected RSV PCR: Not detected Normal [facility] Comment on above: Performed By: #### [place], [address]-8, 83682-2, 33353-4, 2777-1 #### [facility] CLIA [id number] [address] HISTORY PHYSICALon HISTORY PHYSICAL HNO ID: [id number] Author: ALEE BLANCO APRN.[employer]OR [employer] Service: Critical Care Author Type: Nurse Practitioner Type: H&P Filed: 09/17/2023 02:30 Note Text: SERVICE DATE: 09/17/2023 SERVICE TIME: 12:57 AM [facility] ICU HANDP NOTE HPI: This is a 78 year old male with a PMHx significant for HTN, HLD, CKD, CHF, ICH, CAD s/p PCI x6 stents (07/09/23), AAA, DM2 (A1C 6.3%), CKD stage 4, duodenal ulcer c/b GIB, GERD, lupus anticoagulant syndrome, DVT s/p IVF filter (2018), hyperparthyroidism, thombocytopenia and cirrhosis 2/2 ETOH abuse and hemochromatosis c/b hepatic encephalopathy/ascites, s/p liver transplant (2012). Of note, he was recently admitted to [facility] transplant service 08/27-08/30 for progressively increasing LFTs. He was suppose to have a liver biopsy and ERCP performed, but cardiology was uncomfortable holding the patient's dual antiplatlet therapy for the liver biopsy given his recent stent placements. During his hospitalization he required 1U PRBC, had his rapamune and prednisone increased, and losartan was added to his BP regimen. He was also recently seen in his PCP's office on 09/06 for an URI. He was diagnoised with Bronchitis and started on a course of cefadroxil. The patient presents today, 09/17/23 to the [facility] ED with complaints that his blood surgar has been elevated. Per pt, he had outpatient labs performed and his blood glucose was over 500, so he was advised to come to the ED for evaluation. Upon lab work, his glucose was found to be 788. He will be admitted to the ICU for further work-up and mangement of Hyperglycemia. ED Work-Up: - BNP 31,884 - Afebrile. No leukocytosis. - Anemia, Hgb: 8.1. Thrombocytopenia, Plt: 74 - Glucose: 788. Hyponatremic: 133. Negative for Ketones. Recieved 5U SQ Admelog. 1.5L NSB and was started on an insulin gtt. - CXR: Mild basilar density greater on the left. This may reflect atelectasis and/or chronic parenchymal change. Consider superimposed aspiration/infection in the appropriate clinical setting. Suspected trace effusion. - COVID, Influenza A/B, RSV negative. Upon arrival to ICU, pt is AOx3. He denies CP, palpitations, fever, chills. He states he has exertional SOB and has been getting very fatigued when attempting to ambulate. His notes he has been wheezing recently and has been coughing up clear sputum. He has noticed increased LE edema recently. He states he does not take SQ insulin or medication at home and rarely checks his blood sugar. Code status discussed at bedside. The patient would like to be a FULL CODE, okay with intubation. Subjective PAST MEDICAL HISTORY Diagnosis Date Abdominal hernia without obstruction and without gangrene 06/19/2016 Advance directive discussed with patient 06/06/2022 Discussed 05/2022 Amblyopia of left eye Anemia of renal disease 11/25/2019 Anemia of renal disease 11/25/2019 Arthritis Ascites 01/13/2013 Patient denies known history of SBP. Denies current abdominal tenderness, and no large volume ascites with need for paracentesis 02/06/2013. Plan: - ? Diuretics - will D/W nephrology Balance problem 06/19/2016 Bilateral leg edema 01/22/2020 BRVO (branch retinal vein occlusion) OS Cataract of both eyes Central retinal vein occlusion with macular edema of right eye Chronic lumbar pain 06/16/2020 Chronic pain of both ankles 12/13/2017 CKD (chronic kidney disease) stage 3, GFR 30-59 ml/min ([facility]) 06/19/[address] Vipul Perez [facility] CKD (chronic kidney disease) stage 4, GFR 15-29 ml/min ([facility]) 06/19/[address] 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 Plan: Continue pantoprazole 40mg qday. Elevated prostate specific antigen (PSA) 10/19/2016 Normal 10/2017 with free PSA at 44% Essential hypertension 05/18/2014 11/08/2014: Home BP Cuff Validated. Home BP: 167/94 pulse 79. Office BP: 157/91 pulse 76. Gastroesophageal reflux disease without esophagitis 08/24/2015 GIB (gastrointestinal bleeding) 01/13/2013 Patient presents with three episodes of BRBPR onset around 2pm 02/06/2013. He endorses a history of BRBPR during an admission at [facility] in December 2012 for which he states no workup or colonoscopy was performed. During his last admission at [facility] he endorses having passed old blood , and underwent EGD 01/31/13 showing a small polyp/hypertrophied fold at the cardia, severe portal hypertensive gastropathy in the entire stomach, and multiple superficial d (more content not included)... Normal [facility] HbA1c (Bld)on 09-17-2023 Average glucose Estimated from glycated hemoglobin (Bld) [Mass/Vol] 197 mg/dL Normal [facility] Comment on above: Order Comment: Speci men Type: BLOOD SPECIMEN Ordering Facility: [facility] Address: [address] [place] [address] Result Comment: eAG: (Estimated average glucose) is a calculated value from HgbA1c and is patient services representative of the average blood glucose level in the last 2-3 month period. Performed By: #### B [place], 43968-2, 11429-6, 34553-0, 2777-1 #### [facility] CLIA [id number] [address] [place] HbA1c (Bld) [Mass fraction] 8.5 % High 4.3-5.6 [facility] Comment on above: Order Comment: Deanna wren Type: BLOOD SPECIMEN Ordering Facility: [facility] Address: [address] [place] [address] Result Comment: [place] [employer] guidelines indicate that patients with HgbA1c in the range 5.7-6.4% are at increased risk for development of diabetes, and intervention by lifestyle modification may be beneficial. HgbA1c greater or equal to 6.5% is considered diagnostic of diabetes. Performed By: #### [place], [address]-9, 03765-2, 19634-9, 2777-1 #### [facility] CLIA [id number] [address] [place] Hepatic function 2000 panelo n 09-17-2023 Albumin [Mass/Vol] 3.5 g/dL Low 3.9-4.9 [facility] Comment on above: Order Comment: Deanna wren Type: BLOOD SPECIMEN Ordering Facility: [facility] Address: [address] [place] [address] Performed By: #### [place], 76286-5, 93217-0, 11853-6, 2777-1 #### [facility] CLIA [id number] 1000 [place] [address] [place] ALP [Catalytic activity/Vol] 102 U/L Normal 38-113 [facility] Comment on above: Order Comment: Deanna wren Type: BLOOD SPECIMEN Ordering Facility: [facility] Address: [address] [place] [address] Performed By: #### [place], 03117-7, 91464-1, 86759-2, 2777-1 #### [facility] CLIA [id number] [address] [place] ALT [Catalytic activity/Vol] 91 U/L High 10-54 [facility] Comment on above: Order Comment: Speci men Type: BLOOD SPECIMEN Ordering Facility: [facility] Address: [address] [place] [address] Performed By: #### [place], 24271-7, 05031-5, 79834-6, 2777-1 #### [facility] CLIA [id number] [address] [place] [address] [place] AST [Catalytic activity/Vol] 34 U/L Normal 14-40 [facility] Comment on above: Order Comment: Speci men Type: BLOOD SPECIMEN Ordering Facility: [facility] Address: [address] [place] [address] Performed By: #### B HB, 41176-8, 99782-6, 38806-2, 2777-1 #### [facility] CLIA [id number] [address] [place] Bilirubin [Mass/Vol] 0.7 mg/dL Normal 0.2-1.3 [facility] Comment on above: Order Comment: Speci men Type: BLOOD SPECIMEN Ordering Facility: [facility] Address: [address] [place] [address] Performed By: #### B [place], 04205-9, 61948-0, 48809-1, 2777-1 #### [facility] CLIA [id number] [address] Bilirubin.conjugate d [Mass/Vol] 0.3 mg/dL High <0.2 [facility] Comment on above: Order Comment: Speci men Type: BLOOD SPECIMEN Ordering Facility: [facility] Address: [address] [place] [address] Performed By: #### B HB, 00539-7, 56294-8, 93553-4, 2777-1 #### [facility] CLIA [id number] [address] OF [facility] Protein [Mass/Vol] 5.6 g/dL Low 6.3-8.0 [facility] Comment on above: Order Comment: Speci men Type: BLOOD SPECIMEN Ordering Facility: [facility] Address: [address] [place] [address] Performed By: #### [place], 37633-9, 34835-9, 78139-4, 2777-1 #### [facility] CLIA [id number] [address] KETONES/ACETONE/BHBon 2023 Beta hydroxybutyrate [Moles/Vol] 0.17 mmol/L Normal <0.28 [facility] Comment on above: Order Comment: Speci men Type: BLOOD SPECIMEN Ordering Facility: [facility] Address: [address] [place] [address] Performed By: #### B HB, 91463-1, 32384-1, 30360-5, 2777-1 #### [facility] CLIA [id number] [address] Magnesium SerPl-mCncon 09-17 Magnesium [Mass/Vol] 1.9 mg/dL Normal 1.7-2.3 [facility] Comment on above: Order Comment: Speci men Type: BLOOD SPECIMEN Ordering Facility: [facility] Address: [address] [place] [address] Performed By: #### B HB, 03436-2, 97396-5, 88272-7, 2777-1 #### [facility] CLIA [id number] [address] Magnesium [Mass/Vol] 1.9 mg/dL Normal 1.7-2.3 [facility] Comment on above: Order Comment: Speci men Type: BLOOD SPECIMEN Ordering Facility: [facility] Address: [address] [place] [address] Performed By: #### [place], 29391-7, 32348-9, 33080-0, 2777-1 #### [facility] CLIA [id number] [address] [place] NURSING PROGon 09-17-2023 NURSING PROG HNO ID: [id number] Author: PEDRO GOMEZ RN Service: ? Author Type: Registered Nurse Type: Nursing Progress Note Filed: 09/17/2023 20:56 Note Text: Bedtime blood sugar elevated, shreya Greenberg MD., who called the unit, verbal order with read back placed, see MAR. Provider stated no recheck required. Normal [facility] Phosphate SerPl-mCncon 09-17 Phosphate [Mass/Vol] 4.0 mg/dL Normal 2.7-4.8 [facility] Comment on above: Order Comment: Speci siena Type: BLOOD SPECIMEN Ordering Facility: [facility] Address: [address] [place] [address] Performed By: #### B HB, 28865-8, 57550-9, 37603-1, 2777-1 #### [facility] CLIA [id number] [address] OF [facility] Phosphate [Mass/Vol] 4.5 mg/dL Normal 2.7-4.8 [facility] Comment on above: Order Comment: Speci siena Type: BLOOD SPECIMEN Ordering Facility: [facility] Address: [address] [place] [address] Performed By: #### B HB, 07333-2, 51219-9, 36081-2, 2777-1 #### [facility] CLIA [id number] [address] [employer] PCRon 4 S. aureus and MRSA panel MAYTE+probe (Nose) Normal Negative [facility] Comment on above: Order Comment: Specjuan wren Type: BLOOD SPECIMEN Ordering Facility: [facility] Address: [address] [place] [address] Result Comment: Nega tive for Staphylococcus aureus by PCR. Negative for MRSA by PCR Performed By: #### B HB, 33751-4, 55288-6, 22434-7, 2777-1 #### [facility] CLIA [id number] [address] [place] THERAPY NTon 09-17-2023 THERAPY NT HNO ID: [id number] Author: SONI PATEL, OTR/L Service: Occupational Therapy Author Type: Occupational Therapist Type: Therapy (PT/OT/Speech/Resp) Filed: 09/17/2023 13:05 Note Text: OCCUPATIONAL THERAPY MISSED VISIT SERVICE DATE: 09/17/2023 SERVICE TIME: 1304 ROOM: [place] [address] Patient not seen due to Clinical Appropriateness. US still pending to r/o DVT. SIGNATURE: DUNCAN Garcias/Evelyn PATIENT NAME: Isaias Sanon DATE: September 17, 2023 TIME: 1:05 PM Normal [facility] THERAPY NT HNO ID: [id number] Author: ANABEL CONNOLLY PT Service: Physical Therapy Author Type: Physical Therapist Type: Therapy (PT/OT/Speech/Resp) Filed: 09/17/2023 11:35 Note Text: Summary: PT Missed Visit PHYSICAL THERAPY MISSED VISIT SERVICE DATE: 09/17/2023 SERVICE TIME: 1134 ROOM: [place] [address] Patient not seen due to Clinical Appropriateness (pt has US for B DVT pending). SIGNATURE: Anabel Connolly PT PATIENT NAME: Isaias Sanon DATE: September 17, 2023 TIME: 11:35 AM Normal [facility] URINALYSIS, REFLEX MICROSCOP ICon 09-17-2023 Bilirubin Ql (U) Negative Normal Negative [facility] Comment on above: Order Comment: Speci men Type: BLOOD SPECIMEN Ordering Facility: [facility] Address: [address] [place] [address] Performed By: #### B HB, 75637-2, 07985-9, 06413-6, 2777-1 #### [facility] CLIA [id number] [address] [place] [address] [place] Clarity (Unsp spec) Clear Normal [facility] Comment on above: Order Comment: Speci men Type: BLOOD SPECIMEN Ordering Facility: [facility] Address: [address] [place] [address] Performed By: #### [place], 66862-4, 99648-6, 27480-7, 2777-1 #### [facility] CLIA [id number] [address] [place] Color (U) Yellow Normal Yellow [facility] Comment on above: Order Comment: Speci men Type: BLOOD SPECIMEN Ordering Facility: [facility] Address: [address] [place] [address] Performed By: #### B HB, 61464-1, 64435-7, 59988-3, 2777-1 #### [facility] CLIA [id number] [address] Epithelial cells LM.HPF (Urine sed) [#/Area] Few Normal [facility] Comment on above: Order Comment: Speci men Type: BLOOD SPECIMEN Ordering Facility: [facility] Address: [address] [place] [address] Performed By: #### [place], 82153-5, 28758-8, 00177-3, 2777-1 #### [facility] CLIA [id number] [address] Glucose Test strip (U) [Mass/Vol] 3+ Abnormal Negative [facility] Comment on above: Order Comment: Speci men Type: BLOOD SPECIMEN Ordering Facility: [facility] Address: [address] [place] [address] Performed By: #### B HB, 39017-1, 39052-2, 08563-5, 2777-1 #### [facility] CLIA [id number] [address] [place] Hemoglobin Ql (U) Trace Abnormal Negative [facility] Comment on above: Order Comment: Speci men Type: BLOOD SPECIMEN Ordering Facility: [facility] Address: [address] [place] [address] Performed By: #### [place], 82155-9, 61551-4, 63516-9, 2777-1 #### [facility] CLIA [id number] [address] [place] [address] [facility] Ketones Ql (U) Negative Normal Negative [facility] Comment on above: Order Comment: Speci men Type: BLOOD SPECIMEN Ordering Facility: [facility] Address: [address] [place] [address] Performed By: #### B HB, 57985-7, 23833-1, 18617-9, 2777-1 #### [facility] CLIA [id number] [address] [place] Leukocyte esterase Test strip Ql (U) Negative Normal Negative [facility] Comment on above: Order Comment: Speci men Type: BLOOD SPECIMEN Ordering Facility: [facility] Address: [address] [place] [address] Performed By: #### B HB, 85766-1, 82384-9, 06366-0, 2777-1 #### [facility] CLIA [id number] [address] STATES OF [facility] Nitrite Ql (U) Negative Normal Negative [facility] Comment on above: Order Comment: Speci men Type: BLOOD SPECIMEN Ordering Facility: [facility] Address: [address] [place] [address] Performed By: #### B HB, 51276-2, 17043-2, 66384-5, 2777-1 #### [facility] CLIA [id number] [address] [place] [address] [facility] [place] pH (U) 6.0 [pH] Normal 5.0-8.0 [facility] Comment on above: Order Comment: Speci men Type: BLOOD SPECIMEN Ordering Facility: [facility] Address: [address] [place] [address] Performed By: #### B HB, 55080-9, 55699-3, 38578-5, 2777-1 #### [facility] CLIA [id number] [address] [place] [address] [facility] [place] Protein (U) [Mass/Vol] 2+ Abnormal Negative [facility] Comment on above: Order Comment: Speci men Type: BLOOD SPECIMEN Ordering Facility: [facility] Address: [address] [place] [address] Performed By: #### B HB, 81558-7, 48447-5, 27790-4, 7-1 #### [facility] CLIA [id number] [address] RBC LM.HPF (Urine sed) [#/Area] 0-3 /HPF Normal 0-3 /HPF [facility] Comment on above: Order Comment: Speci men Type: BLOOD SPECIMEN Ordering Facility: [facility] Address: [address] [place] [address] Performed By: #### B HB, 81202-1, 17269-6, 75161-9, 7-1 #### [facility] CLIA [id number] [address] Specific gravity (U) [Rel density] 1.015 Normal 1.005-1.030 [facility] Comment on above: Order Comment: Speci men Type: BLOOD SPECIMEN Ordering Facility: [facility] Address: [address] [place] [address] Performed By: #### B HB, 82212-5, 39989-6, 61721-0, 7-1 #### [facility] CLIA [id number] [address] Urobilinogen Ql (U) 0.2 EU/dL Normal 0.2-1.0 EU/dL [facility] Comment on above: Order Comment: Speci men Type: BLOOD SPECIMEN Ordering Facility: [facility] Address: [address] [place] [address] Performed By: #### B HB, 40384-0, 28779-8, 36569-8, 2777-1 #### [facility] CLIA [id number] [address] WBC LM.HPF (Urine sed) [#/Area] 0-5 /HPF Normal 0-5 /HPF [facility] Comment on above: Order Comment: Speci men Type: BLOOD SPECIMEN Ordering Facility: [facility] Address: [address] [place], [place] [address] Performed By: #### B , 81786-2, 11049-8, 32357-4, 2777-1 #### [facility] CLIA [id number] [address] [place] [address] [place] [facility] US DVT LOWER BILon US DVT LOWER EVELIA * * *Final Report* * * DATE OF EXAM: Sep 17 2023 5:37PM MDU 1005 - US DVT LOWER EVELIA / PROCEDURE REASON: Leg swelling * * * * Physician Interpretation * * * * EXAMINATION: RIGHT AND LEFT LOWER EXTREMITY DEEP VENOUS ULTRASOUND WITH DOPPLER IMAGING CLINICAL HISTORY: Leg swelling TECHNIQUE: Grayscale with compression maneuvers, color Doppler and spectral Doppler imaging of the right and left proximal deep veins was performed. Grayscale with compression maneuvers of the right and left peroneal and posterior tibial veins was performed. The right and left great and small saphenous veins were evaluated at their insertion to the deep system. Images were obtained and stored in a permanent archive. MQ: [id number] COMPARISON: Report dated 02/12/2013 RESULT: RIGHT LOWER EXTREMITY PROXIMAL DEEP VEINS Distal External Iliac, Common Femoral and Proximal Profunda Veins: Compression: Normal Doppler: Normal, spontaneous respirophasic flow. Normal response to augmentation. Femoral vein: Compression: Normal Doppler: Normal, spontaneous respirophasic flow. Normal response to augmentation. Popliteal vein: Compression: Normal Doppler: Normal, spontaneous respirophasic flow. Normal response to augmentation. CALF DEEP VEINS Peroneal veins: Normal compression. Posterior tibial veins: Normal compression. Gastrocnemius and Soleal veins: Not imaged. SUPERFICIAL VEINS Great saphenous: Patent and compressible at insertion into common femoral vein; not otherwise assessed. Small Saphenous: Color flow noted in the proximal calf, not otherwise assessed. LEFT LOWER EXTREMITY PROXIMAL DEEP VEINS Distal External Iliac, Common Femoral and Proximal Profunda Veins: Compression: Normal Doppler: Normal, spontaneous respirophasic flow. Normal response to augmentation. Femoral vein: Compression: Normal Doppler: Normal, spontaneous respirophasic flow. Normal response to augmentation. Popliteal vein: Compression: Normal Doppler: Normal, spontaneous respirophasic flow. Normal response to augmentation. CALF DEEP VEINS Peroneal veins: Normal compression. Posterior tibial veins: Normal compression. Gastrocnemius and Soleal veins: Not imaged. SUPERFICIAL VEINS Great saphenous: Patent and compressible at insertion into common femoral vein; not otherwise assessed. Small Saphenous: Color flow noted in the proximal calf, not otherwise assessed. IMPRESSION: Negative study for proximal DVT in the left and right lower extremities. Negative study for calf DVT in the left and right lower extremities. Negative study for superficial thrombophlebitis in the imaged segments of the left and right lower extremities. Mental Telepathist: RADHA Transcribe Date/Time: Sep 18 2023 12:48A Dictated by : ANGELA LAND MD This examination was interpreted and the report reviewed and electronically signed by: ANGELA LAND MD on Sep 18 2023 12:50AM EST [id number] [facility] XR CHEST 2V FRONTAL/LATon XR CHEST 2V FRONTAL/LAT * * *Final Report* * * DATE OF EXAM: Sep 16 2023 11:59PM MDX 5291 - XR CHEST 2V FRONTAL/LAT / PROCEDURE REASON: Cough * * * * Physician Interpretation * * * * EXAMINATION: CHEST RADIOGRAPH (2 VIEW FRONTAL and LATERAL) CLINICAL HISTORY: Cough MQ: [id number]_6 EXAM DATE/TIME: 09/16/2023 11:59 PM COMPARISON: 07/03/2021 RESULT: Lines, tubes, and devices: None. Lungs and pleura: Mild basilar density greater on the left. Potential trace right effusion. No pneumothorax. Cardiomediastinal silhouette: Normal cardiomediastinal silhouette. Bones and soft tissues: Unremarkable. IMPRESSION: Mild basilar density greater on the left. This may reflect atelectasis and/or chronic parenchymal change. Consider superimposed aspiration/infection in the appropriate clinical setting. Suspected trace effusion. Mental Telepathist: [facility] Transcribe Date/Time: Sep 17 2023 12:28A Dictated by : SUSANNA MCDANIEL MD This examination was interpreted and the report reviewed and electronically signed by: SUSANNA MCDANIEL MD on Sep 17 2023 12:30AM EST [id number] [facility] 06-25-2023 [facility] Telephone ([email or web address]) ISAIAS SANON ([id number]) 1945 M Date Time Provider Department 06/25/23 [place] WHITAKER During your visit today, we recorded the following information about you: Julia Roger 06/25/2023 12:[address] Giraldo, pt needs to be scheduled for PCI to the LCX with Dr Whitaker Called patient to schedule - left vm. 1-2 weeks. Julia Roger 06/25/2023 3:11 PM Signed Call returned. 07/09 Order needed - email sent to Dr. Giraldo Allergies As of Date: 06/25/2023 Noted Allergy Reaction ALDACTONE (SPIRONOLACTONE) 05/10/2023 14 - Other: See Comments Comments: Hyperkalemia SEASONAL ALLERGIES 01/30/2017 3 - Cough Comments: Sneezing and watering eyes Date Reviewed: 06/20/2023 Reviewed by: Sanju Banerjee MD - Fully Assessed Reason for Visit: Appointment [186] Prescriptions as of 06/25/2023 - carvedilol (COREG) 25 mg tablet Take 1 tablet by mouth two times a day. - atorvastatin (LIPITOR) 40 mg tablet Take 1 tablet by mouth daily at bedtime. - aspirin 81 mg chewable tablet Take 1 tablet by mouth once daily. - clopidogrel (PLAVIX) 75 mg tablet Take 1 tablet by mouth once daily. - azelastine 0.1% nasal spray Use 2 Sprays in each nostril as needed. - furosemide (LASIX) 40 mg tablet Take 1 tablet by mouth once daily. - sertraline (ZOLOFT) 25 mg tablet Take 1 tablet by mouth once daily. - dext 70/polycarbophil/peg/NaCl (ARTIFICIAL TEAR SOLUTION OPHTHALMIC) Use 1 Drop in eyes as needed. - sirolimus (RAPAMUNE) 0.5 mg tablet Take 1 tablet by mouth once daily. [employer] PAP refill - dilTIAZem CD (CARDIZEM CD, CARTIA XT) 240 mg 24 hr capsule Take 1 capsule by mouth once daily. - sodium bicarbonate 650 mg tablet TAKE 1 TABLET BY MOUTH THREE TIMES DAILY - Blood Pressure Monitor 1 Each twice daily. - acetaminophen (TYLENOL) 500 mg tablet Take 2 tablets by mouth every 6 hours as needed for pain. - magnesium/vitamin E/pyridoxine (VITAMIN B6-VITAMIN E-MAGNESIUM ORAL) Take 1 tablet by mouth once daily. - gabapentin (NEURONTIN) 100 mg capsule Take 100 mg by mouth once daily. - pyridoxine, vitamin B6, (VITAMIN B6) 100 mg tablet Take 1 tablet by mouth once daily. - Cholecalciferol, Vitamin D3, 5,000 unit tab Take 1 tablet by mouth once daily. Facility-Administered Medications as of 06/25/2023 - perflutren lipid microspheres 1.3 mL in NaCl (PF) 0.9% 10 mL injection (DEFINITY) - sodium chloride 0.9 % (flush) 10 mL (BD POSIFLUSH) Meds Comments as of 02/06/2013: Per pt no change in meds Problem List As Of Date 06/25/2023 Noted Resolved SUMMARY [V999.95] 01/13/2013 10/19/2019 Ascites [R18.8] 01/13/2013 10/19/2019 Hyperbilirubinemia [E80.6] 01/13/2013 History of encephalopathy [Z86.69] 02/06/2013 Duodenal ulcer [K26.9] 02/06/2013 10/25/2020 Osteopenia [M85.80] 11/26/2013 Liver transplant status (HCC) [Z94.4] 04/07/2014 Need for prophylactic immunotherapy [Z29.89] 04/07/2014 10/19/2019 History of alcohol abuse [F10.11] History of cirrhosis of liver [Z87.19] Arthritis [M19.90] Cataract of both eyes [H26.9] CRVO (central retinal vein occlusion) [H34.8192] Tributary (branch) retinal vein occlusion, left* Hypertensive retinopathy [H35.039] Amblyopia of left eye [H53.002] Well adult exam [Z00.00] 05/18/2014 10/19/2019 Essential hypertension [I10] 05/18/2014 Thrombocytopenia (HCC) [D69.6] 05/18/2014 10/19/2019 Vertigo [R42] 05/18/2014 Mixed hyperlipidemia [E78.2] 06/23/2014 Gastroesophageal reflux disease without esophag*08/24/2015 History of hemochromatosis [Z86.39] 08/24/2015 Prostate cancer screening [Z12.5] 02/22/2016 10/19/2019 Balance problem [R26.89] 06/19/2016 Elevated prostate specific antigen (PSA) [R97.2*10/19/2016 Type 2 diabetes mellitus with stage 3b chronic *10/23/2016 Proteinuria [R80.9] 10/21/2017 Chronic pain of both ankles [M25.571, G89.29, M*12/13/2017 Pain in left foot [M79.672] 02/20/2019 10/25/2020 Transaminitis [R74.01] 03/25/2019 03/27/2019 History of deep venous thrombosis (DVT) of dist*04/06/[address] [place] [address] [Z95.828] 04/06/2019 Hyperkalemia [E87.5] 04/24/2019 10/25/2020 Medication management [Z79.899] 05/18/2019 10/19/2019 CKD (chronic kidney disease) stage 4, GFR 15-29*06/19/2016 Secondary hyperparathyroidism of renal origin (*10/19/2019 History of stroke [Z86.73] 10/26/2019 Obesity, Class I, BMI 30-34.9 [E66.9] 10/27/2019 Lupus anticoagulant syndrome (HCC) [D68.62] 10/28/2019 Anemia of renal disease [N18.9, D63.1] 11/25/2019 Metabolic acidosis [E87.20] 11/25/2019 10/25/2020 Cirrhosis of liver (HCC) [K74.60] 10/25/2020 CKD (chronic kidney disease) stage 3, GFR 30-59*06/19/2016 10/25/2020 Hypertensive kidney disease with stage 4 chroni*05/18/2014 Liver transplanted (HCC) [Z94.4] 04/07/2014 10/25/2020 Retinal edema [H35.81] Thrombocytopenia (HCC) [D69.6] 05/18/2014 Bilateral leg ed (more content not included)... Normal [facility] ALBUMIN/CREAT RATIO RND URon 06-24-2023 Albumin DL <= 20 mg/L (U) [Mass/Vol] 697.5 mg/L Normal [facility] Comment on above: Order Comment: Speci men Type: BLOOD SPECIMEN Ordering Facility: [facility] Address: [address] [place] [address] Performed By: #### 2 4323-8, 2776-08, #### [facility] CLIA [id number] [address] [place] [address] [place] Albumin/Creatinine (U) [Mass ratio] 1058 mg/g High <30 [facility] Comment on above: Order Comment: Speci men Type: BLOOD SPECIMEN Ordering Facility: [facility] Address: [address] [place] [address] Result Comment: Adul t Male and Female Nephrotic Criteria: <30 mg/g is considered normal to mildly increased 30-300 mg/g is considered moderately increased >300 mg/g is considered severely increased KDIGO. (2013). KDIGO 2012 Clinical Practice Guideline for the Evaluation and Management of Chronic Kidney Disease. Official Journal of the International Society of Nephrology, 3(1), 1-150. Performed By: #### 2 4323-8, 2776-08, #### [facility] CLIA [id number] [address] [place] [address] [place] Creatinine (U) [Mass/Vol] 65.9 mg/dL Normal 20.0-300.0 [facility] Comment on above: Order Comment: Speci men Type: BLOOD SPECIMEN Ordering Facility: [facility] Address: [address] [place] [address] Performed By: #### 2 4323-8, 2776-08, #### [facility] CLIA [id number] [address] [place] [address] [place] CBC panel Auto (Bld)on 06-24 Erythrocyte distribution width (RBC) [Ratio] 14.7 % Normal 11.5-15.0 [facility] Comment on above: Order Comment: Speci men Type: BLOOD SPECIMEN Ordering Facility: [facility] Address: [address] [place] [id number] Performed By: #### 2 4323-8, 2776-08, #### [facility] CLIA [id number] [address] [place] [address] [place] Hematocrit (Bld) [Volume fraction] 28.9 % Low 39.0-51.0 [facility] Comment on above: Order Comment: Speci men Type: BLOOD SPECIMEN Ordering Facility: [facility] Address: [address] [place] [id number] Performed By: #### 2 4323-8, 27702-16, #### [facility] CLIA [id number] [address] [place] [address] [place] Hemoglobin (Bld) [Mass/Vol] 9.0 g/dL Low 13.0-17.0 [facility] Comment on above: Order Comment: Speci men Type: BLOOD SPECIMEN Ordering Facility: [facility] Address: [address] [id number] Performed By: #### 2 4323-8, 2776-08, #### [facility] CLIA [id number] [address] [place], [place] [id number] [place] MCH (RBC) [Entitic mass] 28.7 pg Normal 26.0-34.0 [facility] Comment on above: Order Comment: Speci men Type: BLOOD SPECIMEN Ordering Facility: [facility] Address: [address] [place] [address] Performed By: #### 2 4323-8, 2776-08, #### [facility] CLIA [id number] [address] [place] [address] [place] MCHC (RBC) [Mass/Vol] 31.1 g/dL Normal 30.5-36.0 [facility] Comment on above: Order Comment: Speci men Type: BLOOD SPECIMEN Ordering Facility: [facility] Address: [address] [place] [address] Performed By: #### 2 4323-8, 27702-16, #### [facility] CLIA [id number] [address] [place] [address] [place] MCV (RBC) [Entitic vol] 92.0 fL Normal 80.0-100.0 [facility] Comment on above: Order Comment: Speci men Type: BLOOD SPECIMEN Ordering Facility: [facility] Address: [address] [place] [address] Performed By: #### 2 4323-8, 27702-16, #### [facility] CLIA [id number] [address] [place] [address] [place] Nucleated RBC (Bld) [#/Vol] 10*3/uL Normal <0.01 [facility] Comment on above: Order Comment: Speci men Type: BLOOD SPECIMEN Ordering Facility: [facility] Address: [address] [place] [address] Performed By: #### 2 4323-8, 2776-08, #### [facility] CLIA [id number] [address] [place] [address] [place] Platelet mean volume (Bld) [Entitic vol] 9.2 fL Normal 9.0-12.7 [facility] Comment on above: Order Comment: Speci men Type: BLOOD SPECIMEN Ordering Facility: [facility] Address: [address] [place] [address] Performed By: #### 2 4323-8, 27702-16, #### [facility] CLIA [id number] [address] [place] [address] [place] Platelets (Bld) [#/Vol] 137 10*3/uL Low 150-400 [facility] Comment on above: Order Comment: Speci men Type: BLOOD SPECIMEN Ordering Facility: [facility] Address: [address] [place], [place] [address] Performed By: #### 2 4323-8, 2777-1, 50966-6 #### [facility] CLIA [id number] [address] [place] [address] [place] RBC (Bld) [#/Vol] 3.14 10*6/uL Low 4.20-6.00 [facility] Comment on above: Order Comment: Speci men Type: BLOOD SPECIMEN Ordering Facility: [facility] Address: [address] [place] [address] Performed By: #### 2 4323-8, 2777-1, 61098-2 #### [facility] CLIA [id number] [address] [place] [address] [place] WBC (Bld) [#/Vol] 6.35 10*3/uL Normal 3.70-11.00 [facility] Comment on above: Order Comment: Speci men Type: BLOOD SPECIMEN Ordering Facility: [facility] Address: [address] [place] [address] Performed By: #### 2 4323-8, 2777-1, 17624-6 #### [facility] CLIA [id number] [address] [place] [address] [place] Comprehensive metabolic 2000 panelon 06-24-2023 Albumin [Mass/Vol] 3.9 g/dL Normal 3.9-4.9 [facility] Comment on above: Order Comment: Speci men Type: BLOOD SPECIMENOrdering Facility: [facility] Address: [address] [place] [address] Performed By: #### 2 4323-8, LIPNF ####[facility] [id number] [place] [address] [place] ALP [Catalytic activity/Vol] 101 U/L Normal 38-113 [facility] Comment on above: Order Comment: Speci men Type: BLOOD SPECIMENOrdering Facility: [facility] Address: [address] [place] [address] Performed By: #### 2 4323-8, LIPNF ####[facility] [id number] [place] [address] [place] ALT [Catalytic activity/Vol] 25 U/L Normal 10-54 [facility] Comment on above: Order Comment: Speci men Type: BLOOD SPECIMENOrdering Facility: [facility] Address: [address] [place] [address] Performed By: #### 2 4323-8, LIPNF ####[facility] [id number] [place] [address] [place] Anion gap [Moles/Vol] 15 mmol/L Normal 9-18 [facility] Comment on above: Order Comment: Speci men Type: BLOOD SPECIMENOrdering Facility: [facility] Address: [address] [place] [address] Performed By: #### 2 4323-8, LIPNF ####[facility] [id number] [place] [address] [place] AST [Catalytic activity/Vol] 18 U/L Normal 14-40 [facility] Comment on above: Order Comment: Speci men Type: BLOOD SPECIMENOrdering Facility: [facility] Address: [address] [place] [address] Performed By: #### 2 4323-8, LIPNF ####[facility] [id number] [place] [address] [place] Bilirubin [Mass/Vol] 0.4 mg/dL Normal 0.2-1.3 [facility] Comment on above: Order Comment: Speci men Type: BLOOD SPECIMENOrdering Facility: [facility] Address: [address] [place] [address] Performed By: #### 2 4323-8, LIPNF ####[facility] [id number] [place] [address] [place] Calcium [Mass/Vol] 9.9 mg/dL Normal 8.5-10.2 [facility] Comment on above: Order Comment: Speci men Type: BLOOD SPECIMENOrdering Facility: [facility] Address: [address] [place] [address] Performed By: #### 2 4323-8, LIPNF ####[facility] [id number] [place] [address] [place] Chloride [Moles/Vol] 100 mmol/L Normal 97-105 [facility] Comment on above: Order Comment: Speci men Type: BLOOD SPECIMENOrdering Facility: [facility] Address: [address] [place] [address] Performed By: #### 2 4323-8, LIPNF ####[facility] [id number] [place] [address] [place] CO2 [Moles/Vol] 24 mmol/L Normal 22-30 [facility] Comment on above: Order Comment: Speci men Type: BLOOD SPECIMENOrdering Facility: [facility] Address: [address] [place] [address] Performed By: #### 2 4323-8, LIPNF ####[facility] [id number] [place] [address] [place] Creatinine [Mass/Vol] 3.22 mg/dL High 0.73-1.22 [facility] Comment on above: Order Comment: Speci men Type: BLOOD SPECIMENOrdering Facility: [facility] Address: [address] [place] [address] Performed By: #### 2 4323-8, LIPNF ####[facility] [id number] [place] [address] [place] Creatinine and Glomerular filtration rate.predicted panel (S/P/Bld) 19 mL/min/1.73m??? Low >=60 [facility] Comment on above: Order Comment: Speci men Type: BLOOD SPECIMENOrdering Facility: [facility] Address: [address] [place] [address] Result Comment: Kya mated Glomerular Filtration Rate (eGFR) is calculated using the 2020 CKD-EPI creatinine equation. This equation utilizes serum creatinine, sex, and age as parameters. The creatinine assay has traceable calibration to isotope dilution-mass spectrometry. Refer to KDIGO guidelines for clinical interpretation. In patients with unstable renal function, e.g. those with acute kidney injury, the eGFR may not accurately reflect actual GFR. Performed By: #### 2 4323-8, LIPNF ####[facility] [id number] [place] [address] [place] Glucose [Mass/Vol] 176 mg/dL High 74-99 [facility] Comment on above: Order Comment: Speci men Type: BLOOD SPECIMENOrdering Facility: [facility] Address: [address] [place] [address] Result Comment: The [place] Diabetes Association (ADA) provides guidance for cutoff values for fasting glucose and random glucose. The ADA defines fasting as no caloric intake for at least 8 hours. Fasting plasma glucose results between 100 to 125 mg/dL indicate increased risk for diabetes (prediabetes). Fasting plasma glucose results greater than or equal to 126 mg/dL meet the criteria for diagnosis of diabetes. In the absence of unequivocal hyperglycemia, results should be confirmed by repeat testing. In a patient with classic symptoms of hyperglycemia or hyperglycemic crisis, random plasma glucose results greater than or equal to 200 mg/dL meet the criteria for diagnosis of diabetes. Reference: Standards of Medical Care in Diabetes 2016, [employer] Diabetes Association. Diabetes Care. 2016.39(Suppl 1). Performed By: #### 2 4323-8, LIPNF ####[facility]IA [id number] [place] [address] [place] Potassium [Moles/Vol] 4.2 mmol/L Normal 3.7-5.1 [facility] Comment on above: Order Comment: Klaudiai men Type: BLOOD SPECIMENOrdering Facility: [facility] Address: [address] [place] [address] Performed By: #### 2 4323-8, LIPNF ####[facility] [id number] [place] [address] [place] Protein [Mass/Vol] 6.6 g/dL Normal 6.3-8.0 [facility] Comment on above: Order Comment: Speci men Type: BLOOD SPECIMENOrdering Facility: [facility] Address: [address] [place] [address] Performed By: #### 2 4323-8, LIPNF ####[facility] [id number] [place] [address] [place] Sodium [Moles/Vol] 139 mmol/L Normal 136-144 [facility] Comment on above: Order Comment: Speci men Type: BLOOD SPECIMENOrdering Facility: [facility] Address: [address] [place] [address] Performed By: #### 2 4323-8, LIPNF ####[facility]IA [id number] [place] [address] [place] Urea nitrogen [Mass/Vol] 39 mg/dL High 9-24 [facility] Comment on above: Order Comment: Speci men Type: BLOOD SPECIMENOrdering Facility: [facility] Address: [address] [place] [address] Performed By: #### 2 4323-8, LIPNF ####[facility] [id number] [place] [address] [place] HbA1c (Bld)on 06-24-2023 Average glucose Estimated from glycated hemoglobin (Bld) [Mass/Vol] 134 mg/dL Normal [facility] Comment on above: Order Comment: Speci men Type: BLOOD SPECIMEN Ordering Facility: [facility] Address: [address] [place] [address] Result Comment: eAG: (Estimated average glucose) is a calculated value from HgbA1c and is patient services representative of the average blood glucose level in the last 2-3 month period. Performed By: #### 2 4323-8, 2777-1, #### [facility] CLIA [id number] [address] [place] [address] [place] HbA1c (Bld) [Mass fraction] 6.3 % High 4.3-5.6 [facility] Comment on above: Order Comment: Deanna wren Type: BLOOD SPECIMEN Ordering Facility: [facility] Address: [address] [place] [address] Result Comment: [place] Diabetes Association guidelines indicate that patients with HgbA1c in the range 5.7-6.4% are at increased risk for development of diabetes, and intervention by lifestyle modification may be beneficial. HgbA1c greater or equal to 6.5% is considered diagnostic of diabetes. Performed By: #### 2 4323-8, 2777-1, #### [facility] CLIA [id number] [address] [place] [address] [place] LIPID PANEL, NONFASTINGon Cholesterol [Mass/Vol] 124 mg/dL Normal <200 [facility] Comment on above: Order Comment: Deanna wren Type: BLOOD SPECIMENOrdering Facility: [facility] Address: [address] [place] [address] Result Comment: <200 mg/dL, Desirable 200-239 mg/dL, Borderline high >239 mg/dL, High Performed By: #### 2 4323-8, LIPNF ####[facility] [id number] [place] [address] [place] HDL CHOLESTEROL, NF 40 mg/dL Normal >39 [facility] Comment on above: Order Comment: Deanna wren Type: BLOOD SPECIMENOrdering Facility: [facility] Address: [address] [place] [address] Result Comment: 40-5 9 mg/dL, Acceptable >59 mg/dL, High: Negative risk factor for coronary heart disease <40 mg/dL, Low: Positive risk factor for coronary heart disease Performed By: #### 2 4323-8, LIPNF ####[facility] [id number] [place] [address] [place] LDL CHOLESTEROL, NF 63 mg/dL Normal <100 [facility] Comment on above: Order Comment: Deanna wren Type: BLOOD SPECIMENOrdering Facility: [facility] Address: [address] [place] [address] Result Comment: <100 mg/dL, Optimal 100-129 mg/dL, Near optimal/above optimal 130-159 mg/dL, Borderline high 160-189 mg/dL, High >189 mg/dL, Very high Secondary prevention optimal LDL Cholesterol levels are recommended to be < 70 mg/dL Performed By: #### 2 4323-8, LIPNF ####[facility] [id number] [address] STATES OF [facility] LDL/HDL RATIO, NF 1.58 mg/dL Normal <2.54 [facility] Comment on above: Order Comment: Deanna wren Type: BLOOD SPECIMENOrdering Facility: [facility] Address: [address] [place] [address] Result Comment: Refe rence: 1. National Cholesterol Education Program ATP III Guideline At-A-Glance Quick Desk Reference: National Heart, Lung, and Blood [place]. National Institutes of Health. 2001: NIH Publication No. 01-3305. 2. An International Atherosclerosis Society position paper: global recommendations for the management of dyslipidemia: executive summary, Atherosclerosis. 2014: 232(2):410-413. Performed By: #### 2 4323-8, LIPNF ####[facility] [id number] [address] [place] NON HDL CHOL, NF 84 mg/dL Normal <130 [facility] Comment on above: Order Comment: Deanna wren Type: BLOOD SPECIMENOrdering Facility: [facility] Address: [address] [place] [address] Result Comment: <130 mg/dL, Optimal 130-159 mg/dL, Near optimal/above optimal 160-189 mg/dL, Borderline high 190-219 mg/dL, High >219 mg/dL, Very high Secondary prevention optimal non HDL Cholesterol levels are recommended to be <100 mg/dL Performed By: #### 2 4323-8, LIPNF ####[facility] [id number] [place] [address] [place] T CHOL/HDL RATIO NF 3.10 mg/dL Normal <5.10 [facility] Comment on above: Order Comment: Speci men Type: BLOOD SPECIMENOrdering Facility: [facility] Address: [address] [place] [address] Performed By: #### 2 4323-8, LIPNF ####[facility] [id number] [place] [address] [place] TRIGLYCERIDES, NF 106 mg/dL Normal <150 [facility] Comment on above: Order Comment: Speci men Type: BLOOD SPECIMENOrdering Facility: [facility] Address: [address] [place] [address] Result Comment: <150 mg/dL, Normal 150-199 mg/dL, Borderline high 200-499 mg/dL, High >499 mg/dL, Very high Performed By: #### 2 4323-8, LIPNF ####[facility] [id number] [place] [address] [place] VLDL CHOLESTEROL, NF 21 mg/dL Normal <30 [facility] Comment on above: Order Comment: Speci men Type: BLOOD SPECIMENOrdering Facility: [facility] Address: [address] [place] [address] Performed By: #### 2 4323-8, LIPNF ####[facility] [id number] [place] [address] [place] [facility] Prostate specific Ag [Mass/Vol] 2.21 ng/mL Normal <2.60 [facility] Comment on above: Order Comment: Speci men Type: BLOOD SPECIMEN Ordering Facility: [facility] Address: [address] [place] [address] Result Comment: Tota l PSA test methodology used is the Electrochemiluminescence Immunoassay by [employer]. Total PSA values by differing methodologies cannot be interchanged. Performed By: #### 2 4323-8, 2776-08, #### [facility] CLIA [id number] [facility] [place] [address] [place] Urinalysis complete panel (U )on 06-24-2023 Bacteria LM.HPF (Urine sed) [#/Area] Negative Normal Negative [facility] Comment on above: Order Comment: Speci men Type: BLOOD SPECIMEN Ordering Facility: [facility] Address: [address] [place] [address] Performed By: #### 2 4323-8, 2776-08, #### [facility] CLIA [id number] [address] [place] [address] [place] Bilirubin Ql (U) Negative Normal Negative [facility] Comment on above: Order Comment: Speci men Type: BLOOD SPECIMEN Ordering Facility: [facility] Address: [address] [place] [address] Performed By: #### 2 4323-8, 2776-08, #### [facility] CLIA [id number] [address] [place] [address] [place] Clarity (Unsp spec) Clear Normal Clear [facility] Comment on above: Order Comment: Speci men Type: BLOOD SPECIMEN Ordering Facility: [facility] Address: [address] [place] [address] Performed By: #### 2 4323-8, 2776-08, #### [facility] CLIA [id number] [address] [place] [address] [place] Color (U) Yellow Normal Yellow [facility] Comment on above: Order Comment: Speci men Type: BLOOD SPECIMEN Ordering Facility: [facility] Address: [address] [place] [address] Performed By: #### 2 4323-8, 2776-08, #### [facility] CLIA [id number] [address] [place] [address] [place] Epithelial cells LM.HPF (Urine sed) [#/Area] None Seen Normal [facility] Comment on above: Order Comment: Speci men Type: BLOOD SPECIMEN Ordering Facility: [facility] Address: [address] [place] [address] Performed By: #### 2 4323-8, 2776-08, #### [facility] CLIA [id number] [address] [place] [address] [place] Glucose Test strip (U) [Mass/Vol] Trace Abnormal Negative [facility] Comment on above: Order Comment: Speci men Type: BLOOD SPECIMEN Ordering Facility: [facility] Address: [address] [place] [address] Performed By: #### 2 4323-8, 2776-08, #### [facility] CLIA [id number] [address] [place] [address] [place] Hemoglobin Ql (U) Negative Normal Negative [facility] Comment on above: Order Comment: Speci men Type: BLOOD SPECIMEN Ordering Facility: [facility] Address: [address] [place] [address] Performed By: #### 2 4323-8, 2776-08, #### [facility] CLIA [id number] [address] [place] [address] [place] Hyaline casts (Urine sed) [#/Area] 1-3 /LPF Abnormal 0 /LPF [facility] Comment on above: Order Comment: Speci men Type: BLOOD SPECIMEN Ordering Facility: [facility] Address: [address] [place] [address] Performed By: #### 2 4323-8, 2776-08, #### [facility] CLIA [id number] [address] [place] [address] [place] Ketones Ql (U) Negative Normal Negative [facility] Comment on above: Order Comment: Speci men Type: BLOOD SPECIMEN Ordering Facility: [facility] Address: [address] [place] [address] Performed By: #### 2 4323-8, 2776-08, #### [facility] CLIA [id number] [address] [place] [address] [place] Leukocyte esterase Test strip Ql (U) Negative Normal Negative [facility] Comment on above: Order Comment: Speci men Type: BLOOD SPECIMEN Ordering Facility: [facility] Address: [address] [place] [address] Performed By: #### 2 4323-8, 2776-08, #### [facility] CLIA [id number] [address] [place] [address] [place] Nitrite Ql (U) Negative Normal Negative [facility] Comment on above: Order Comment: Speci men Type: BLOOD SPECIMEN Ordering Facility: [facility] Address: [address] [place] [address] Performed By: #### 2 4323-8, 2776-08, #### [facility] CLIA [id number] [address] [place] [address] [place] pH (U) 6.5 [pH] Normal <8.5 [facility] Comment on above: Order Comment: Speci men Type: BLOOD SPECIMEN Ordering Facility: [facility] Address: [address] [place] [address] Performed By: #### 2 4323-8, 2776-08, #### [facility] CLIA [id number] [address] [place] [address] [place] Protein (U) [Mass/Vol] 2+ Abnormal Negative [facility] Comment on above: Order Comment: Speci men Type: BLOOD SPECIMEN Ordering Facility: [facility] Address: [address] [place] [address] Performed By: #### 2 4323-8, 2777-1, 52649-9 #### [facility] CLIA [id number] [address] [place] [address] [place] RBC LM.HPF (Urine sed) [#/Area] 0-2 /HPF Normal 0-2 /HPF [facility] Comment on above: Order Comment: Speci men Type: BLOOD SPECIMEN Ordering Facility: [facility] Address: [address] [place] [address] Performed By: #### 2 4323-8, 2777-1, 11021-7 #### [facility] CLIA [id number] [address] [place] [address] [place] Specific gravity (U) [Rel density] 1.012 Normal 1.005-1.030 [facility] Comment on above: Order Comment: Speci men Type: BLOOD SPECIMEN Ordering Facility: [facility] Address: [address] [place] [address] Performed By: #### 2 4323-8, 2777-1, #### [facility] CLIA [id number] [address] [place] [address] [place] Urobilinogen Ql (U) 0.2 EU/dL Normal 0.2-1.0 EU/dL [facility] Comment on above: Order Comment: Speci men Type: BLOOD SPECIMEN Ordering Facility: [facility] Address: [address] [place] [address] Performed By: #### 2 4323-8, 27771, #### [facility] CLIA [id number] [address] [place] [address] [place] WBC LM.HPF (Urine sed) [#/Area] 0-5 /HPF Normal 0-5 /HPF [facility] Comment on above: Order Comment: Speci men Type: BLOOD SPECIMEN Ordering Facility: [facility] Address: [address] [place] [address] Performed By: #### 2 4323-8, 2776-08, #### [facility] CLIA [id number] [address] [place] [address] [place] CBC W Auto Differential pane l (Bld)on 06-20-2023 Basophils (Bld) [#/Vol] 0.05 10*3/uL Normal <0.11 [facility] Comment on above: Order Comment: Speci men Type: BLOOD SPECIMEN Ordering Facility: [facility] Address: [address] [place] [address] Performed By: #### 2 4323-8, 2776-08, #### [facility] CLIA [id number] [address] [place] [address] [place] Basophils/100 WBC (Bld) 0.7 % Normal [facility] Comment on above: Order Comment: Speci men Type: BLOOD SPECIMEN Ordering Facility: [facility] Address: [address] [place] [address] Performed By: #### 2 4323-8, 2776-08, #### [facility] CLIA [id number] [address] [place] [address] [place] Differential cell count method Nom (Bld) Auto Normal [facility] Comment on above: Order Comment: Speci men Type: BLOOD SPECIMEN Ordering Facility: [facility] Address: [address] [place] [address] Performed By: #### 2 4323-8, 2776-08, #### [facility] CLIA [id number] [address] [place] [address] [place] Eosinophils (Bld) [#/Vol] 0.19 10*3/uL Normal <0.46 [facility] Comment on above: Order Comment: Speci men Type: BLOOD SPECIMEN Ordering Facility: [facility] Address: [address] [place] [address] Performed By: #### 2 4323-8, 27702-16, #### [facility] CLIA [id number] [address] [address] [place] Eosinophils/100 WBC (Bld) 2.8 % Normal [facility] Comment on above: Order Comment: Speci men Type: BLOOD SPECIMEN Ordering Facility: [facility] Address: [address] [place] [address] Performed By: #### 2 4323-8, 2776-08, #### [facility] CLIA [id number] [address] [place] [address] [place] Erythrocyte distribution width (RBC) [Ratio] 14.4 % Normal 11.5-15.0 [facility] Comment on above: Order Comment: Speci men Type: BLOOD SPECIMEN Ordering Facility: [facility] Address: [address] [place] [address] Performed By: #### 2 4323-8, 2776-08, #### [facility] CLIA [id number] [address] [place] [address] [place] Hematocrit (Bld) [Volume fraction] 29.5 % Low 39.0-51.0 [facility] Comment on above: Order Comment: Speci men Type: BLOOD SPECIMEN Ordering Facility: [facility] Address: [address] [place] [address] Performed By: #### 2 4323-8, 2776-08, #### [facility] CLIA [id number] [address] [place] [id number] [place] Hemoglobin (Bld) [Mass/Vol] 9.2 g/dL Low 13.0-17.0 [facility] Comment on above: Order Comment: Speci men Type: BLOOD SPECIMEN Ordering Facility: [facility] Address: [address] [place] [address] Performed By: #### 2 4323-8, 27702-16, #### [facility] CLIA [id number] [address] [address] [place] Immature granulocytes (Bld) [#/Vol] 0.10 10*3/uL High <0.10 [facility] Comment on above: Order Comment: Speci men Type: BLOOD SPECIMEN Ordering Facility: [facility] Address: [address] [place] [address] Performed By: #### 2 4323-8, 2776-08, #### [facility] CLIA [id number] [address] [place] [address] [place] Immature granulocytes/100 WBC (Bld) 1.5 % Normal [facility] Comment on above: Order Comment: Speci men Type: BLOOD SPECIMEN Ordering Facility: [facility] Address: [address] [place] [address] Performed By: #### 2 4323-8, 2776-08, #### [facility] CLIA [id number] [address] [place] [address] [place] Lymphocytes (Bld) [#/Vol] 0.92 10*3/uL Low 1.00-4.00 [facility] Comment on above: Order Comment: Speci men Type: BLOOD SPECIMEN Ordering Facility: [facility] Address: [address] [place] [address] Performed By: #### 2 4323-8, 2776-08, #### [facility] CLIA [id number] [address] [address] [place] Lymphocytes/100 WBC (Bld) 13.4 % Normal [facility] Comment on above: Order Comment: Speci men Type: BLOOD SPECIMEN Ordering Facility: [facility] Address: [address] [place] [address] Performed By: #### 2 4323-8, 2776-08, #### [facility] CLIA [id number] [address] [place] [address] [place] MCH (RBC) [Entitic mass] 28.5 pg Normal 26.0-34.0 [facility] Comment on above: Order Comment: Speci men Type: BLOOD SPECIMEN Ordering Facility: [facility] Address: [address] [place] [address] Performed By: #### 2 4323-8, 2777, #### [facility] CLIA [id number] [address] [place] [address] [place] MCHC (RBC) [Mass/Vol] 31.2 g/dL Normal 30.5-36.0 [facility] Comment on above: Order Comment: Speci men Type: BLOOD SPECIMEN Ordering Facility: [facility] Address: [address] [place] [address] Performed By: #### 2 4323-8, 27702-16, #### [facility] CLIA [id number] [address] [place] [address] [place] MCV (RBC) [Entitic vol] 91.3 fL Normal 80.0-100.0 [facility] Comment on above: Order Comment: Speci men Type: BLOOD SPECIMEN Ordering Facility: [facility] Address: [address] [place] [address] Performed By: #### 2 4323-8, 27702-16, #### [facility] CLIA [id number] [address] [place] [address] [place] Monocytes (Bld) [#/Vol] 0.61 10*3/uL Normal <0.87 [facility] Comment on above: Order Comment: Speci men Type: BLOOD SPECIMEN Ordering Facility: [facility] Address: [address] [place] [address] Performed By: #### 2 4323-8, 2777, #### [facility] CLIA [id number] [address] [place] [address] [place] Monocytes/100 WBC (Bld) 8.9 % Normal [facility] Comment on above: Order Comment: Speci men Type: BLOOD SPECIMEN Ordering Facility: [facility] Address: [address] [place] [address] Performed By: #### 2 4323-8, 27702-16, #### [facility] CLIA [id number] [address] [place] [address] [place] Neutrophils (Bld) [#/Vol] 5.01 10*3/uL Normal 1.45-7.50 [facility] Comment on above: Order Comment: Speci men Type: BLOOD SPECIMEN Ordering Facility: [facility] Address: [address] [place] [address] Performed By: #### 2 4323-8, 27702-16, #### [facility] CLIA [id number] [address] [place] [address] [place] Neutrophils/100 WBC (Bld) 72.7 % Normal [facility] Comment on above: Order Comment: Speci men Type: BLOOD SPECIMEN Ordering Facility: [facility] Address: [address] [place] [address] Performed By: #### 2 4323-8, 27702-16, #### [facility] CLIA [id number] [address] [place] [address] [place] Nucleated RBC (Bld) [#/Vol] 10*3/uL Normal <0.01 [facility] Comment on above: Order Comment: Speci men Type: BLOOD SPECIMEN Ordering Facility: [facility] Address: [address] [place] [address] Performed By: #### 2 4323-8, 27702-16, #### [facility] CLIA [id number] [address] [place] [address] [place] Nucleated RBC/100 WBC (Bld) [Ratio] 0.0 /100 WBC Normal [facility] Comment on above: Order Comment: Speci men Type: BLOOD SPECIMEN Ordering Facility: [facility] Address: [address] [place] [address] Performed By: #### 2 4323-8, 2776-08, #### [facility] CLIA [id number] [address] [place] [address] [place] Platelet mean volume (Bld) [Entitic vol] 9.1 fL Normal 9.0-12.7 [facility] Comment on above: Order Comment: Speci men Type: BLOOD SPECIMEN Ordering Facility: [facility] Address: [address] [place] [address] Performed By: #### 2 4323-8, 2776-08, #### [facility] CLIA [id number] [address] [place] [address] [place] Platelets (Bld) [#/Vol] 145 10*3/uL Low 150-400 [facility] Comment on above: Order Comment: Speci men Type: BLOOD SPECIMEN Ordering Facility: [facility] Address: [address] [place] [address] Performed By: #### 2 4323-8, 2776-08, #### [facility] CLIA [id number] [address] [place] [address] [place] RBC (Bld) [#/Vol] 3.23 10*6/uL Low 4.20-6.00 [facility] Comment on above: Order Comment: Speci men Type: BLOOD SPECIMEN Ordering Facility: [facility] Address: [address] [place] [address] Performed By: #### 2 4323-8, 2776-08, #### [facility] CLIA [id number] [address] [place] [address] [place] WBC (Bld) [#/Vol] 6.88 10*3/uL Normal 3.70-11.00 [facility] Comment on above: Order Comment: Speci men Type: BLOOD SPECIMEN Ordering Facility: [facility] Address: [address] [place] [address] Performed By: #### 2 4323-8, 2777-1, 25525-4 #### [facility] CLIA [id number] [address] [facility] [id number] [facility] CNOVon 06-20-2023 CNOV Office Visit (FAMPWS ) ISAIAS SANON ([id number]) 1945 M Date Time Provider Department 06/20/23 9:40 AM [facility] During your visit today, we recorded the following information about you: Pulse Respiration Blood pressure Weight 70/minute 18/minute 132/78 89.8 kg Height 1.74 m Sanju Banerjee MD 06/20/2023 1:27 PM Signed Medicare Yearly Visit Medical B eligibilty date not able to find Date of last exam 06/06/2022 PAST MEDICAL HISTORY PAST MEDICAL HISTORY Diagnosis Date Abdominal hernia without obstruction and without gangrene 06/19/2016 Alcohol abuse Amblyopia of left eye Anemia of renal disease 11/25/2019 Arthritis Ascites 01/13/2013 Patient denies known history of SBP. Denies current abdominal tenderness, and no large volume ascites with need for paracentesis 02/06/2013. Plan: - ? Diuretics - will D/W nephrology Balance problem 06/19/2016 Bilateral leg edema 01/22/2020 BRVO (branch retinal vein occlusion) OS Cataract of both eyes Chronic lumbar pain 06/16/2020 Chronic pain of both ankles 12/13/2017 Cirrhosis of liver (HCC) CKD (chronic kidney disease) stage 3, GFR 30-59 ml/min (HCC) 06/19/[address] Vipul Perez [facility] Controlled type 2 diabetes mellitus with stage 4 chronic kidney disease, without long-term current use of insulin (HCC) 10/23/2016 CRVO (central retinal vein occlusion) OD Duodenal ulcer 02/06/2013 Duodenal ulcers seen on EGD 01/31/13. Plan: Continue pantoprazole 40mg qday. Elevated prostate specific antigen (PSA) 10/19/2016 Normal 10/2017 with free PSA at 44% Essential hypertension 05/18/2014 11/08/2014: Home BP Cuff Validated. Home BP: 167/94 pulse 79. Office BP: 157/91 pulse 76. Gastroesophageal reflux disease without esophagitis 08/24/2015 GIB (gastrointestinal bleeding) 01/13/2013 Patient presents with three episodes of BRBPR onset around 2pm 02/06/2013. He endorses a history of BRBPR during an admission at [facility] in December 2012 for which he states no workup or colonoscopy was performed. During his last admission at [facility] he endorses having passed old blood , and underwent EGD 01/31/13 showing a small polyp/hypertrophied fold at the cardia, severe portal hypertensive gastropathy in the entire stomach, and multiple superficial duodenal ulcers. EGD EUS performed 02/03/13 showed several portal hypertensive gastropathy, and normal endoscopic ultrasound examination of the previous area of concern (polyp vs. gastric fold). He was started on PPI BID and discharged 02/04/13 at which time hemoglobin was 8.6. In the ED 02/06/13, Hgb is 8.4, Hct 24.4, plt 41. Last colonoscopy was 2 years ago per patient, and he reports normal findings to be repeated in 2014. Etiologies of current episode includes internal hemorrhoids (no external hemorrhoids seen on examination), diverticular bleeding, AVM, varice Tony filter in place 04/06/2019 Hemochromatosis History of cirrhosis of liver Secondary to alcohol abuse and hemochromatosis. Sees Dr. Doss (at [facility]): Secondary to alcohol abuse and hemochromatosis, currently on transplant list. MELD Score: 35 Plan: - continue home medications: nadolol, norfloxacin, zinc, lactulose, rifaximin, folic acid. 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 Currently alert, oriented x3, no signs of decompensated encephalopathy. Plan: - continue home regimen of lactulose, rifaximin and zinc History of hemochromatosis 08/24/2015 Has not been an issue since liver transplant. Hyperbilirubinemia 01/13/2013 Hypertensive kidney disease with stage 3b chronic kidney disease (HCC) 05/18/2014 11/08/2014: Home BP Cuff Validated. Home BP: 167/94 pulse 79. Office BP: 157/91 pulse 76. Hypertensive retinopathy mild ICH (intracerebral hemorrhage) (HCC) Imbalance 06/01/2014 Noted at PT eval on 05/31/2014. Incisional hernia 04/07/2014 Liver transplanted (HCC) 04/07/2014 Lupus anticoagulant syndrome (HCC) 10/28/2019 Medicare annual wellness visit, subsequent 05/18/2021 Medicare part B: Not able to find Last done: 05/18/2021 Mixed hyperlipidemia 06/23/2014 Obesity, Class I, BMI 30-34.9 10/27/2019 Osteopenia 11/26/2013 Other proteinuria 10/21/2017 Seeing renal Retinal edema Secondary hyperparathyroidism of renal origin (HCC) 10/19/2019 Thrombocytopenia (HCC) 05/18/2014 Vertigo 05/18/2014 PAST SURGICAL HISTORY PAST SURGICAL HISTORY Procedure Laterality Date APPENDECTOMY HX 02/15/2013 AVASTIN (BEVACIZUMAB) 1.25MG INTRAVITREAL INJECTION OD (RIGHT EYE) Right 01/12/16 last od AVASTIN (BEVACIZUMAB) 1.25MG INTRAVITREAL INJECTION OD (RIGHT EYE) Right 04/04/16 CHOLECYSTECTOMY HX 02/15/2013 COLONOSCOPY 02/08/2013 repeat 10 yrs EY (more content not included)... Normal [facility] Comprehensive metabolic 2000 panelon 06-20-2023 Albumin [Mass/Vol] 3.9 g/dL Normal 3.9-4.9 [facility] Comment on above: Order Comment: Speci men Type: BLOOD SPECIMEN Ordering Facility: [facility] Address: [address] [place] [address] Performed By: #### 2 4323-8, 2777-1, 99550-3 #### [facility] CLIA [id number] [address] [facility] [id number], [place] [address] [place] ALP [Catalytic activity/Vol] 102 U/L Normal 38-113 [facility] Comment on above: Order Comment: Speci men Type: BLOOD SPECIMEN Ordering Facility: [facility] Address: [address] [place] [address] Performed By: #### 2 4323-8, 2776-08, #### [facility] CLIA [id number] [address] [place] [address] [place] ALT [Catalytic activity/Vol] 24 U/L Normal 10-54 [facility] Comment on above: Order Comment: Speci men Type: BLOOD SPECIMEN Ordering Facility: [facility] Address: [address] [place] [address] Performed By: #### 2 4323-8, 2776-08, #### [facility] CLIA [id number] [address] [place] [address] [place] Anion gap [Moles/Vol] 13 mmol/L Normal 9-18 [facility] Comment on above: Order Comment: Speci men Type: BLOOD SPECIMEN Ordering Facility: [facility] Address: [address] [place] [address] Performed By: #### 2 4323-8, 2776-08, #### [facility] CLIA [id number] [address] [place] [address] [place] AST [Catalytic activity/Vol] 22 U/L Normal 14-40 [facility] Comment on above: Order Comment: Speci men Type: BLOOD SPECIMEN Ordering Facility: [facility] Address: [address] [place] [address] Performed By: #### 2 4323-8, 2776-08, #### [facility] CLIA [id number] [address] [place] [id number] [place] Bilirubin [Mass/Vol] 0.5 mg/dL Normal 0.2-1.3 [facility] Comment on above: Order Comment: Speci men Type: BLOOD SPECIMEN Ordering Facility: [facility] Address: [address] [place] [id number] Performed By: #### 2 4323-8, 2776-08, #### [facility] CLIA [id number] [address] [place] [address] [place] Calcium [Mass/Vol] 9.7 mg/dL Normal 8.5-10.2 [facility] Comment on above: Order Comment: Speci men Type: BLOOD SPECIMEN Ordering Facility: [facility] Address: [address] [place] [address] Performed By: #### 2 4323-8, 2776-08, #### [facility] CLIA [id number] [address] [place] [address] [place] Chloride [Moles/Vol] 103 mmol/L Normal 97-105 [facility] Comment on above: Order Comment: Speci men Type: BLOOD SPECIMEN Ordering Facility: [facility] Address: [address] [place] [address] Performed By: #### 2 4323-8, 2776-08, #### [facility] CLIA [id number] [address] [place] [address] [place] CO2 [Moles/Vol] 25 mmol/L Normal 22-30 [facility] Comment on above: Order Comment: Speci men Type: BLOOD SPECIMEN Ordering Facility: [facility] Address: [address] [place] [address] Performed By: #### 2 4323-8, 2776-08, #### [facility] CLIA [id number] [address] [place], [place] [address] [place] Creatinine [Mass/Vol] 3.83 mg/dL High 0.73-1.22 [facility] Comment on above: Order Comment: Speci men Type: BLOOD SPECIMEN Ordering Facility: [facility] Address: [address] [place] [address] Performed By: #### 2 4323-8, 2777-1, #### [facility] CLIA [id number] [address] [place] [address] [place] Creatinine and Glomerular filtration rate.predicted panel (S/P/Bld) 15 mL/min/1.73m??? Low >=60 [facility] Comment on above: Order Comment: Deanna wren Type: BLOOD SPECIMEN Ordering Facility: [facility] Address: [address] [place] [address] Result Comment: Kya mated Glomerular Filtration Rate (eGFR) is calculated using the 2020 CKD-EPI creatinine equation. This equation utilizes serum creatinine, sex, and age as parameters. The creatinine assay has traceable calibration to isotope dilution-mass spectrometry. Refer to KDIGO guidelines for clinical interpretation. In patients with unstable renal function, e.g. those with acute kidney injury, the eGFR may not accurately reflect actual GFR. Performed By: #### 2 4323-8, 2777-1, #### [facility] CLIA [id number] [facility] [place] [address] [place] Glucose [Mass/Vol] 145 mg/dL High 74-99 [facility] Comment on above: Order Comment: Deanna wren Type: BLOOD SPECIMEN Ordering Facility: [facility] Address: [address] [place] [address] Result Comment: The [place] Diabetes Association (ADA) provides guidance for cutoff values for fasting glucose and random glucose. The ADA defines fasting as no caloric intake for at least 8 hours. Fasting plasma glucose results between 100 to 125 mg/dL indicate increased risk for diabetes (prediabetes). Fasting plasma glucose results greater than or equal to 126 mg/dL meet the criteria for diagnosis of diabetes. In the absence of unequivocal hyperglycemia, results should be confirmed by repeat testing. In a patient with classic symptoms of hyperglycemia or hyperglycemic crisis, random plasma glucose results greater than or equal to 200 mg/dL meet the criteria for diagnosis of diabetes. Reference: Standards of Medical Care in Diabetes 2016, [employer] Diabetes Association. Diabetes Care. 2016.39(Suppl 1). Performed By: #### 2 4323-8, 2776-08, #### [facility] CLIA [id number] [address] [place] [id number] [place] Potassium [Moles/Vol] 4.8 mmol/L Normal 3.7-5.1 [facility] Comment on above: Order Comment: Speci men Type: BLOOD SPECIMEN Ordering Facility: [facility] Address: [address] [place] [address] Performed By: #### 2 4323-8, 2776-08, #### [facility] CLIA [id number] [address] [place] [address] [place] Protein [Mass/Vol] 6.6 g/dL Normal 6.3-8.0 [facility] Comment on above: Order Comment: Speci men Type: BLOOD SPECIMEN Ordering Facility: [facility] Address: [address] [place] [address] Performed By: #### 2 4323-8, 2776-08, #### [facility] CLIA [id number] [address] [place] [address] [place] Sodium [Moles/Vol] 141 mmol/L Normal 136-144 [facility] Comment on above: Order Comment: Speci men Type: BLOOD SPECIMEN Ordering Facility: [facility] Address: [address] [place] [address] Performed By: #### 2 4323-8, 2776-08, #### [facility] CLIA [id number] [address] [place] [id number] [place] Urea nitrogen [Mass/Vol] 40 mg/dL High 9-24 [facility] Comment on above: Order Comment: Speci men Type: BLOOD SPECIMEN Ordering Facility: [facility] Address: [address] [place] [address] Performed By: #### 2 4323-8, 2776-08, #### [facility] CLIA [id number] [facility] [place] [address] [place] Magnesium SerPl-ncon 06-20 Magnesium [Mass/Vol] 2.1 mg/dL Normal 1.7-2.3 [facility] Comment on above: Order Comment: Deanna wren Type: BLOOD SPECIMEN Ordering Facility: [facility] Address: [address] [place] [address] Performed By: #### 2 4323-8, 2777-1, 16116-5 #### [facility] CLIA [id number] [address] [place] [address] [place] Phosphate SerPl-mCncon 06-20 Phosphate [Mass/Vol] 3.0 mg/dL Normal 2.7-4.8 [facility] Comment on above: Order Comment: Deanna wren Type: BLOOD SPECIMEN Ordering Facility: [facility] Address: [address] [place] [address] Performed By: #### 2 4323-8, 2777-1, 66293-4 #### [facility] CLIA [id number] [address] [place] [address] [place] Sirolimus Bld-mCncon 023 Sirolimus (Bld) [Mass/Vol] 5.3 ng/mL Normal 4.0-12.0 [facility] Comment on above: Order Comment: Deanna wren Type: BLOOD SPECIMENOrdering Facility: [facility] Address: [address] [place] [address] Result Comment: The optimal therapeutic range may vary based on the indication for treatment, transplant type, time post transplant, simultaneous use of other immunosuppressive drugs, and clinical or institutional protocols. It is recommended to interpret the results in conjunction with this information and the patient's clinical context. This test was developed and its performance characteristics determined by [facility]'s Susanna [facility] Pathology and Laboratory Medicine [place] ([facility]). It has not been cleared or approved by the FDA. [facility] is regulated under CLIA as qualified to perform high-complexity testing. This test is used for clinical purposes. It should not be regarded as investigational or for research. Test performed by LC-MS/MS Performed By: #### 2 9247-4 ####[facility] [id number] [place] [address] [place] Basic metabolic 2000 panelon 06-12-2023 Anion gap [Moles/Vol] 12 mmol/L Normal 9-18 [facility] Comment on above: Order Comment: Speci men Type: BLOOD SPECIMEN Ordering Facility: [facility] Address: [address] [place] [address] Performed By: #### 2 4323-8, 2777, #### [facility] CLIA [id number] [address] [place] [address] [place] Calcium [Mass/Vol] 9.2 mg/dL Normal 8.5-10.2 [facility] Comment on above: Order Comment: Speci men Type: BLOOD SPECIMEN Ordering Facility: [facility] Address: [address] [place] [address] Performed By: #### 2 4323-8, 27702-16, #### [facility] CLIA [id number] [address] [place] [address] [place] Chloride [Moles/Vol] 105 mmol/L Normal 97-105 [facility] Comment on above: Order Comment: Speci men Type: BLOOD SPECIMEN Ordering Facility: [facility] Address: [address] [place] [address] Performed By: #### 2 4323-8, 27702-16, #### [facility] CLIA [id number] [address] [place] [id number] [place] CO2 [Moles/Vol] 22 mmol/L Normal 22-30 [facility] Comment on above: Order Comment: Speci men Type: BLOOD SPECIMEN Ordering Facility: [facility] Address: [address] [place] [address] Performed By: #### 2 4323-8, 2777-, #### [facility] CLIA [id number] [address] [place] [id number] [place] Creatinine [Mass/Vol] 3.12 mg/dL High 0.73-1.22 [facility] Comment on above: Order Comment: Deanna wren Type: BLOOD SPECIMEN Ordering Facility: [facility] Address: [address] [place] [address] Performed By: #### 2 4323-8, 27702-16, #### [facility] CLIA [id number] [address] [place] [address] [place] Creatinine and Glomerular filtration rate.predicted panel (S/P/Bld) 20 mL/min/1.73m??? Low >=60 [facility] Comment on above: Order Comment: Deanna wren Type: BLOOD SPECIMEN Ordering Facility: [facility] Address: [address] [place] [address] Result Comment: Kya mated Glomerular Filtration Rate (eGFR) is calculated using the 2020 CKD-EPI creatinine equation. This equation utilizes serum creatinine, sex, and age as parameters. The creatinine assay has traceable calibration to isotope dilution-mass spectrometry. Refer to KDIGO guidelines for clinical interpretation. In patients with unstable renal function, e.g. those with acute kidney injury, the eGFR may not accurately reflect actual GFR. Performed By: #### 2 4323-8, 27702-16, #### [facility] CLIA [id number] [address] [place] [id number] [place] Glucose [Mass/Vol] 141 mg/dL High 74-99 [facility] Comment on above: Order Comment: Deanna wren Type: BLOOD SPECIMEN Ordering Facility: [facility] Address: [address] [place] [address] Result Comment: The [place] Diabetes Association (ADA) provides guidance for cutoff values for fasting glucose and random glucose. The ADA defines fasting as no caloric intake for at least 8 hours. Fasting plasma glucose results between 100 to 125 mg/dL indicate increased risk for diabetes (prediabetes). Fasting plasma glucose results greater than or equal to 126 mg/dL meet the criteria for diagnosis of diabetes. In the absence of unequivocal hyperglycemia, results should be confirmed by repeat testing. In a patient with classic symptoms of hyperglycemia or hyperglycemic crisis, random plasma glucose results greater than or equal to 200 mg/dL meet the criteria for diagnosis of diabetes. Reference: Standards of Medical Care in Diabetes 2016, [employer] Diabetes Association. Diabetes Care. 2016.39(Suppl 1). Performed By: #### 2 4323-8, 27702-16, #### [facility] CLIA [id number] [address] [address] [place] Potassium [Moles/Vol] 3.9 mmol/L Normal 3.7-5.1 [facility] Comment on above: Order Comment: Klaudiai siena Type: BLOOD SPECIMEN Ordering Facility: [facility] Address: [address] [place] [address] Performed By: #### 2 4323-8, 2776-08, #### [facility] CLIA [id number] [address] [address] [place] Sodium [Moles/Vol] 139 mmol/L Normal 136-144 [facility] Comment on above: Order Comment: Deanna wren Type: BLOOD SPECIMEN Ordering Facility: [facility] Address: [address] [place] [address] Performed By: #### 2 4323-8, 27702-16, #### [facility] CLIA [id number] [address] [address] [place] Urea nitrogen [Mass/Vol] 52 mg/dL High 9-24 [facility] Comment on above: Order Comment: Klaudiai men Type: BLOOD SPECIMEN Ordering Facility: [facility] Address: [address] [place] [address] Performed By: #### 2 4323-8, 27702-16, #### [facility] CLIA [id number] [address] [place] [address] [place] CBC W Auto Differential pane l (Bld)on 06-12-2023 Basophils (Bld) [#/Vol] 10*3/uL Normal <0.11 [facility] Comment on above: Order Comment: Speci men Type: BLOOD SPECIMEN Ordering Facility: [facility] Address: [address] [place] [address] Performed By: #### 2 4323-8, 2776-08, #### [facility] CLIA [id number] [address] [place] [address] [place] Basophils/100 WBC (Bld) 0.3 % Normal [facility] Comment on above: Order Comment: Speci men Type: BLOOD SPECIMEN Ordering Facility: [facility] Address: [address] [place] [address] Performed By: #### 2 4323-8, 2776-08, #### [facility] CLIA [id number] [address] [place] [address] [place] Differential cell count method Nom (Bld) Auto Normal [facility] Comment on above: Order Comment: Speci men Type: BLOOD SPECIMEN Ordering Facility: [facility] Address: [address] [place] [address] Performed By: #### 2 4323-8, 2776-08, #### [facility] CLIA [id number] [address] [place] [address] [place] Eosinophils (Bld) [#/Vol] 0.10 10*3/uL Normal <0.46 [facility] Comment on above: Order Comment: Speci men Type: BLOOD SPECIMEN Ordering Facility: [facility] Address: [address] [place] [address] Performed By: #### 2 4323-8, 2776-08, #### [facility] CLIA [id number] [address] [place] [address] [place] Eosinophils/100 WBC (Bld) 1.7 % Normal [facility] Comment on above: Order Comment: Speci men Type: BLOOD SPECIMEN Ordering Facility: [facility] Address: [place] [address] Performed By: #### 2 4323-8, 2776-08, #### [facility] CLIA [id number] [address] [place] [address] [place] Erythrocyte distribution width (RBC) [Ratio] 13.9 % Normal 11.5-15.0 [facility] Comment on above: Order Comment: Speci men Type: BLOOD SPECIMEN Ordering Facility: [facility] Address: [address] [place] [address] Performed By: #### 2 4323-8, 2776-08, #### [facility] CLIA [id number] [address] [place] [address] [place] Hematocrit (Bld) [Volume fraction] 25.3 % Low 39.0-51.0 [facility] Comment on above: Order Comment: Speci men Type: BLOOD SPECIMEN Ordering Facility: [facility] Address: [address] [place] [address] Performed By: #### 2 4323-8, 2776-08, #### [facility] CLIA [id number] [address] [place] [address] [place] Hemoglobin (Bld) [Mass/Vol] 8.4 g/dL Low 13.0-17.0 [facility] Comment on above: Order Comment: Speci men Type: BLOOD SPECIMEN Ordering Facility: [facility] Address: [address] [place] [address] Performed By: #### 2 4323-8, 2776-08, #### [facility] CLIA [id number] [address] [place] [address] [place] Immature granulocytes (Bld) [#/Vol] 0.08 10*3/uL Normal <0.10 [facility] Comment on above: Order Comment: Speci men Type: BLOOD SPECIMEN Ordering Facility: [facility] Address: [address] [place] [address] Performed By: #### 2 4323-8, 2776-08, #### [facility] CLIA [id number] [address] [place] [address] [place] Immature granulocytes/100 WBC (Bld) 1.3 % Normal [facility] Comment on above: Order Comment: Speci men Type: BLOOD SPECIMEN Ordering Facility: [facility] Address: [address] [place] [address] Performed By: #### 2 4323-8, 2776-08, #### [facility] CLIA [id number] [address] [place] [address] [place] Lymphocytes (Bld) [#/Vol] 0.90 10*3/uL Low 1.00-4.00 [facility] Comment on above: Order Comment: Speci men Type: BLOOD SPECIMEN Ordering Facility: [facility] Address: [address] [place] [address] Performed By: #### 2 4323-8, 2776-08, #### [facility] CLIA [id number] [address] [place] [address] [place] Lymphocytes/100 WBC (Bld) 15.1 % Normal [facility] Comment on above: Order Comment: Speci men Type: BLOOD SPECIMEN Ordering Facility: [facility] Address: [address] [place] [address] Performed By: #### 2 4323-8, 2776-08, #### [facility] CLIA [id number] [address] [place] [id number] [place] MCH (RBC) [Entitic mass] 29.3 pg Normal 26.0-34.0 [facility] Comment on above: Order Comment: Speci men Type: BLOOD SPECIMEN Ordering Facility: [facility] Address: [address] [place] [address] Performed By: #### 2 4323-8, 2776-08, #### [facility] CLIA [id number] [address] [place] [address] [place] MCHC (RBC) [Mass/Vol] 33.2 g/dL Normal 30.5-36.0 [facility] Comment on above: Order Comment: Speci men Type: BLOOD SPECIMEN Ordering Facility: [facility] Address: [address] [place] [address] Performed By: #### 2 4323-8, 2776-08, #### [facility] CLIA [id number] [address] [place] [address] [place] MCV (RBC) [Entitic vol] 88.2 fL Normal 80.0-100.0 [facility] Comment on above: Order Comment: Speci men Type: BLOOD SPECIMEN Ordering Facility: [facility] Address: [address] [place] [address] Performed By: #### 2 4323-8, 2776-08, #### [facility] CLIA [id number] [address] [place] [address] [place] Monocytes (Bld) [#/Vol] 0.49 10*3/uL Normal <0.87 [facility] Comment on above: Order Comment: Speci men Type: BLOOD SPECIMEN Ordering Facility: [facility] Address: [address] [place] [address] Performed By: #### 2 4323-8, 2776-08, #### [facility] CLIA [id number] [address] [place] [address] [place] Monocytes/100 WBC (Bld) 8.2 % Normal [facility] Comment on above: Order Comment: Speci men Type: BLOOD SPECIMEN Ordering Facility: [facility] Address: [address] [place] [address] Performed By: #### 2 4323-8, 2777, #### [facility] CLIA [id number] [address] [place] [address] [place] Neutrophils (Bld) [#/Vol] 4.36 10*3/uL Normal 1.45-7.50 [facility] Comment on above: Order Comment: Speci men Type: BLOOD SPECIMEN Ordering Facility: [facility] Address: [address] [place] [address] Performed By: #### 2 4323-8, 27702-16, #### [facility] CLIA [id number] [address] [place] [address] [place] Neutrophils/100 WBC (Bld) 73.4 % Normal [facility] Comment on above: Order Comment: Speci men Type: BLOOD SPECIMEN Ordering Facility: [facility] Address: [address] [place] [address] Performed By: #### 2 4323-8, 27702-16, #### [facility] CLIA [id number] [address] [place] [address] [place] Nucleated RBC (Bld) [#/Vol] 10*3/uL Normal <0.01 [facility] Comment on above: Order Comment: Speci men Type: BLOOD SPECIMEN Ordering Facility: [facility] Address: [address] [place] [address] Performed By: #### 2 4323-8, 27702-16, #### [facility] CLIA [id number] [address] [place] [address] [place] Nucleated RBC/100 WBC (Bld) [Ratio] 0.0 /100 WBC Normal [facility] Comment on above: Order Comment: Speci men Type: BLOOD SPECIMEN Ordering Facility: [facility] Address: [address] [place] [address] Performed By: #### 2 4323-8, 2777-1, #### [facility] CLIA [id number] [address] [place] [address] [place] Platelet mean volume (Bld) [Entitic vol] 8.9 fL Low 9.0-12.7 [facility] Comment on above: Order Comment: Speci men Type: BLOOD SPECIMEN Ordering Facility: [facility] Address: [address] [place], [place] [address] Performed By: #### 2 4323-8, 2777-1, #### [facility] CLIA [id number] [address] [place], [place] [address] [place] Platelets (Bld) [#/Vol] 109 10*3/uL Low 150-400 [facility] Comment on above: Order Comment: Speci men Type: BLOOD SPECIMEN Ordering Facility: [facility] Address: [address] [place] [address] Performed By: #### 2 4323-8, 2777-1, #### [facility] CLIA [id number] [address] [place], [place] [address] [place] RBC (Bld) [#/Vol] 2.87 10*6/uL Low 4.20-6.00 [facility] Comment on above: Order Comment: Speci men Type: BLOOD SPECIMEN Ordering Facility: [facility] Address: [address] [place], [place] [address] Performed By: #### 2 4323-8, 2777, #### [facility] CLIA [id number] [address] [place], [place] [address] [place] WBC (Bld) [#/Vol] 5.95 10*3/uL Normal 3.70-11.00 [facility] Comment on above: Order Comment: Speci men Type: BLOOD SPECIMEN Ordering Facility: [facility] Address: [address] [place] [address] Performed By: #### 2 4323-8, 2776-08, #### [facility] CLIA [id number] [address] [place] [address] [place] ALLIED HEALTHon 06-11-2023 ALLIED HEALTH HNO ID: [id number] Author: Rizwan Lipscomb Service: ? Author Type: ? Type: Allied Health Filed: 06/11/2023 9:13 PM Note Text: EKG performed per protocol on Isaias Sanon EKG was handed to PASCALE Dixon on unit J33 on June 11, 2023 at 8:20 PM Critical result of ST abnormality Rizwan Lipscomb Normal [facility] Basic metabolic 2000 panelon 06-11-2023 Anion gap [Moles/Vol] 12 mmol/L Normal 9-18 [facility] Comment on above: Order Comment: Speci men Type: BLOOD SPECIMEN Ordering Facility: [facility] Address: [address] [place] [address] Performed By: #### 2 4323-8, 2776-08, #### [facility] CLIA [id number] [address] [place] [address] [place] Calcium [Mass/Vol] 10.3 mg/dL High 8.5-10.2 [facility] Comment on above: Order Comment: Speci men Type: BLOOD SPECIMEN Ordering Facility: [facility] Address: [address] [place] [address] Performed By: #### 2 4323-8, 2776-08, #### [facility] CLIA [id number] [facility] [address] [address] [place] Chloride [Moles/Vol] 104 mmol/L Normal 97-105 [facility] Comment on above: Order Comment: Speci men Type: BLOOD SPECIMEN Ordering Facility: [facility] Address: [address] [place] [address] Performed By: #### 2 4323-8, 2776-08, #### [facility] CLIA [id number] [address] [place] [address] [place] CO2 [Moles/Vol] 24 mmol/L Normal 22-30 [facility] Comment on above: Order Comment: Speci men Type: BLOOD SPECIMEN Ordering Facility: [facility] Address: [address] [place] [address] Performed By: #### 2 4323-8, 2777, #### [facility] CLIA [id number] [facility] [place] [address] [place] Creatinine [Mass/Vol] 3.22 mg/dL High 0.73-1.22 [facility] Comment on above: Order Comment: Speci men Type: BLOOD SPECIMEN Ordering Facility: [facility] Address: [address] [place] [address] Performed By: #### 2 4323-8, 2776-08, #### [facility] CLIA [id number] [address] [place] [address] [place] Creatinine and Glomerular filtration rate.predicted panel (S/P/Bld) 19 mL/min/1.73m??? Low >=60 [facility] Comment on above: Order Comment: Speci men Type: BLOOD SPECIMEN Ordering Facility: [facility] Address: [address] [place] [address] Result Comment: Kya mated Glomerular Filtration Rate (eGFR) is calculated using the 2020 CKD-EPI creatinine equation. This equation utilizes serum creatinine, sex, and age as parameters. The creatinine assay has traceable calibration to isotope dilution-mass spectrometry. Refer to KDIGO guidelines for clinical interpretation. In patients with unstable renal function, e.g. those with acute kidney injury, the eGFR may not accurately reflect actual GFR. Performed By: #### 2 4323-8, 2776-08, #### [facility] CLIA [id number] [address] [place] [id number] [place] Glucose [Mass/Vol] 151 mg/dL High 74-99 [facility] Comment on above: Order Comment: Deanna wren Type: BLOOD SPECIMEN Ordering Facility: [facility] Address: [address] [place] [address] Result Comment: The [place] Diabetes Association (ADA) provides guidance for cutoff values for fasting glucose and random glucose. The ADA defines fasting as no caloric intake for at least 8 hours. Fasting plasma glucose results between 100 to 125 mg/dL indicate increased risk for diabetes (prediabetes). Fasting plasma glucose results greater than or equal to 126 mg/dL meet the criteria for diagnosis of diabetes. In the absence of unequivocal hyperglycemia, results should be confirmed by repeat testing. In a patient with classic symptoms of hyperglycemia or hyperglycemic crisis, random plasma glucose results greater than or equal to 200 mg/dL meet the criteria for diagnosis of diabetes. Reference: Standards of Medical Care in Diabetes 2016, [employer] Diabetes [employer]. Diabetes Care. 2016.39(Suppl 1). Performed By: #### 2 4323-8, 27702-16, #### [facility] CLIA [id number] [address] [place] [address] [place] Potassium [Moles/Vol] 4.1 mmol/L Normal 3.7-5.1 [facility] Comment on above: Order Comment: Deanna wren Type: BLOOD SPECIMEN Ordering Facility: [facility] Address: [address] [place] [address] Performed By: #### 2 4323-8, 27702-16, #### [facility] CLIA [id number] [address] [place] [address] [place] Sodium [Moles/Vol] 140 mmol/L Normal 136-144 [facility] Comment on above: Order Comment: Deanna wren Type: BLOOD SPECIMEN Ordering Facility: [facility] Address: [address] [place] [address] Performed By: #### 2 4323-8, 27702-16, #### [facility] CLIA [id number] [address] [place] [address] [place] Urea nitrogen [Mass/Vol] 48 mg/dL High 9-24 [facility] Comment on above: Order Comment: Speci men Type: BLOOD SPECIMEN Ordering Facility: [facility] Address: [address] [place] [address] Performed By: #### 2 4323-8, 2777-1, 58167-5 #### [facility] CLIA [id number] [address] [facility] [id number] [facility] CARD CATH INTERVENTon 2022 CARD CATH INTERVENT Site Id: [facility] Lab #: [id number] 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 Nursing/[facility] Luba Jean R.N., M. R.N. Yeager, M R.N. Hill, M R.N. Heywood, Olivia. R.Mahogany Schulz RFlorinda Goyal, T. R.NJoe Gomez R.N., Raleigh Parekh, Debby Edwards, R. R.N. + + PATIENT INFORMATION + + Name: MR. ISAIAS SANON : 1945 Age: 78 years Gender: M Height: 67 in / 170 cm Weight: 197.00 lb / 89.36 kg BMI: 30.92 kg/m BSA: 2.01 m Allergies: YES : SEE EPIC + --+ CLINICAL HISTORY/INDICATIONS + --+ AUC: One or two vessel coronary artery disease without involvement of proximal left anterior descending artery. CCS anginal class III or IV with high-risk findings on noninvasive testing. Maximal anti-ischemic medical therapy. AUC score = 9. Exam Status: Elective Clinical History: Mr. Sanon is a 78 year old male with a history of hypertension and chronic kidney disease (CKD) stage IV, who presented with exertional angina and positive high risk stress test (TID), and diagnostic left heart cath showed severe stenosis in proximal to mid LAD, and first diagonal (bifurcation flor 1,1,1,), and also tight stenosis in mid LCX. Today he presents for staged PCI to the LAD and the first diagonal. + + PCI SUMMARY + + Procedures Performed: - Successful IVUS-guided, minimal contrast, PCI to the ostial LAD to mid LAD with two overlapping stents (4.0 X 16 mm and 3.5 X 28 mm Synergy KELLI) , and PCI to the first diagonal with T and protrusion (TAP) technique with a 3.0 X 16 mm Synergy KELLI, post dilated with 4.0 X 16 NC balloon in proximal LAD and kissing balloon inflation (3.5 X 12 mm and 3.0 X 15 mm) simultaneously in mid LAD and first diagonal. Procedural Details: + +------ ---------+ ----+ Entry Site(SR) Sheath Size(SR) Hemostasis Method(SR) + +------ ---------+ ----+ Right Radial Artery 6F Short Radial TR band + +------ ---------+ ----+ Anticoagulation: Aspirin, Clopidogrel and Heparin Procedure Narrative: Lesion 1: LAD Proximal Guide 1: 6FR EBU 3.5. Lesion 2: LAD-1st diagonal branch Guide 2: 6FR EBU 3.5. Procedure Summary: We engaged the LMT with the 6 Fr EBU 3.5 guide catheter. After administering heparin to a goal ACT of >250s, we advanced a Sandro Blue coronary wire to the distal LAD and a Runthrough coronary wire to the distal first diagonal artery. - PTCA with a 2.5 X 12 mm Non-compliant balloon to the mid LAD. - PTCA with a 2.5 X 12 mm Non-compliant balloon to the first diagonal. - Shockwave lithotripsy using 3.0 X 12 shockwave balloon, with 30 pulses delivered to the first diagonal - Had difficulty advancing shockwave balloon in the LAD so did PTCA with a 3.0 X 15 NC balloon to proximal to mid LAD. - Shockwave lithotripsy using 3.0 X 12 shockwave balloon,40 pulses to mid LAD and 40 pulses to proximal LAD. - Intracoronary imaging with HD IVUS showed severe stenosis in proximal to mid LAD across the origin of the first diagonal with severe circumferential calcifications, but with evidence of cracks in the calcium from the shockwave. IVUS of the first diagonal also confirmed severe stenosis in the ostium of the first diagonal. Vessel sizing was performed using IVUS, and proximal and distal landing zones were determined using IVUS. - Stenting with a 3.5 x 28 mm Synergy KELLI to the mid segment LAD jailing the diagonal wire. - The LAD wire (the Sandro Blue) was withdrawn to inside the LAD stent and redirected to the first diagonal through a side strut in the LAD stent. The jailed diagonal wire was removed and advanced into distal LAD. - Dilation of the side strut into the diagonal using 1.5 X 15 mm Takeru balloon followed by 2.5 X 15 mm Takeru balloon. - Stenting with a 3.0 X 16 mm Synergy KELLI in first diagonal with (E-ipq-xoubwzhagn) technique. - Unfortunately there was interaction and resistance when we tried to advance two balloons in the guide for kissing so we had to lose the wires position and removed all equipment from the guide catheter. - We rewired the diagonal using the Sandro Blue wire (with a knuckle to ensure staying inside the stent) , we Rewired the distal LAD using Fielder FC coronary wire. - Kissing balloons inflations with 3.0 X 15 mm NC balloon in diagonal and 3.5 X 12 mm NC balloon in the mid LAD. - Intracoronary imaging with HD IVUS confirmed excellent stents position and expansion in mid LAD and first diagonal, we then used IVUS for stent length sizing in ostial LAD into the mid LAD stent. - The Sandro Blue coronary wire was removed from the diagonal and advanced to distal LCX. - St (more content not included)... Normal [facility] CBC panel Auto (Bld)on 06-11 Erythrocyte distribution width (RBC) [Ratio] 13.9 % Normal 11.5-15.0 [facility] Comment on above: Order Comment: Speci men Type: BLOOD SPECIMENOrdering Facility: [facility] Address: [address] [place] [address] Performed By: #### 5 8410-2 ####[facility] [id number] [place] [address] [place] Hematocrit (Bld) [Volume fraction] 31.5 % Low 39.0-51.0 [facility] Comment on above: Order Comment: Speci men Type: BLOOD SPECIMENOrdering Facility: [facility] Address: [address] [place] [address] Performed By: #### 5 8410-2 ####[facility] [id number] [place] [address] [place] Hemoglobin (Bld) [Mass/Vol] 10.3 g/dL Low 13.0-17.0 [facility] Comment on above: Order Comment: Speci men Type: BLOOD SPECIMENOrdering Facility: [facility] Address: [address] [place] [address] Performed By: #### 5 8410-2 ####[facility] [id number] [place] [address] [place] MCH (RBC) [Entitic mass] 28.9 pg Normal 26.0-34.0 [facility] Comment on above: Order Comment: Speci men Type: BLOOD SPECIMENOrdering Facility: [facility] Address: [address] [place] [address] Performed By: #### 5 8410-2 ####[facility] [id number] [place] [address] [place] MCHC (RBC) [Mass/Vol] 32.7 g/dL Normal 30.5-36.0 [facility] Comment on above: Order Comment: Speci men Type: BLOOD SPECIMENOrdering Facility: [facility] Address: [address] [place] [address] Performed By: #### 5 8410-2 ####[facility] [id number] [place] [address] [place] MCV (RBC) [Entitic vol] 88.5 fL Normal 80.0-100.0 [facility] Comment on above: Order Comment: Speci men Type: BLOOD SPECIMENOrdering Facility: [facility] Address: [address] [place] [address] Performed By: #### 5 8410-2 ####[facility] [id number] [place] [address] [place] Nucleated RBC (Bld) [#/Vol] 10*3/uL Normal <0.01 [facility] Comment on above: Order Comment: Speci men Type: BLOOD SPECIMENOrdering Facility: [facility] Address: [address] [place] [address] Performed By: #### 5 8410-2 ####[facility] [id number] [place] [address] [place] Platelet mean volume (Bld) [Entitic vol] 8.6 fL Low 9.0-12.7 [facility] Comment on above: Order Comment: Speci men Type: BLOOD SPECIMENOrdering Facility: [facility] Address: [address] [place] [address] Performed By: #### 5 8410-2 ####[facility] LABCLIA [id number] [place] [address] [place] Platelets (Bld) [#/Vol] 140 10*3/uL Low 150-400 [facility] Comment on above: Order Comment: Speci men Type: BLOOD SPECIMENOrdering Facility: [facility] Address: [address] [place] [address] Performed By: #### 5 8410-2 ####[facility] [id number] [place] [address] [place] RBC (Bld) [#/Vol] 3.56 10*6/uL Low 4.20-6.00 [facility] Comment on above: Order Comment: Speci men Type: BLOOD SPECIMENOrdering Facility: [facility] Address: [address] [place] [address] Performed By: #### 5 8410-2 ####[facility] [id number] [place] [address] [place] WBC (Bld) [#/Vol] 7.14 10*3/uL Normal 3.70-11.00 [facility] Comment on above: Order Comment: Speci men Type: BLOOD SPECIMENOrdering Facility: [facility] Address: [address] [place] [address] Performed By: #### 5 8410-2 ####[facility] [id number] [place] [address] [place] ECG COMPLETEon 06-11-2023 ECG COMPLETE Ventricular Rate : 6 4 BPM Atrial Rate : 64 BPM P-R Interval : 224 ms QRS Duration : 94 ms Q-T Interval : 438 ms QTC Calculation(Bazett) : 451 ms Calculated P Belmond : 20 degrees Calculated T Belmond : 107 degrees SINUS RHYTHM WITH 1ST DEGREE AV BLOCK NONSPECIFIC ST & LATERAL T WAVE ABNORMALITY ABNORMAL ECG Confirmed by JONAH DAWSON MD ([id number]) on 06/13/2023 7:33:45 PM NAME : ISAIAS SANON PID : [id number] : 1945 Gender : Male Race : ORD : [id number] Procedure Date : Jun 11 2023 20:17:14 Edit Date : Jun 13 2023 19:33:46 Diagnosis: SINUS RHYTHM WITH 1ST DEGREE AV BLOCK NONSPECIFIC ST & LATERAL T WAVE ABNORMALITY ABNORMAL ECG Confirmed by JONAH DAWSON MD ([id number]) on 06/13/2023 7:33:45 PM Test Reason : Post-OP Location : 333 : J33 J33-12 Overread By : JONAH DAWSON MD Edited By : JONAH DAWSON MD Referred By : , Acquired by : RIZWAN LIPSCOMB Normal [facility] ECG COMPLETE Ventricular Rate : 5 4 BPM Atrial Rate : 54 BPM P-R Interval : 312 ms QRS Duration : 98 ms Q-T Interval : 448 ms QTC Calculation(Bazett) : 424 ms Calculated P Belmond : 20 degrees Calculated R Belmond : 4 degrees Calculated T Belmond : 131 degrees SINUS BRADYCARDIA WITH 1ST DEGREE AV BLOCK INFERIOR MYOCARDIAL INFARCTION , AGE UNDETERMINED ST & LATERAL T WAVE ABNORMALITY ABNORMAL ECG Confirmed by JOSEP ROTHMAN MD ([id number]) on 06/18/2023 3:46:57 PM NAME : ISAIAS SANON PID : [id number] : 1945 Gender : Male Race : ORD : [id number] Procedure Date : Jun 11 2023 11:20:58 Edit Date : Jun 18 2023 15:46:59 Diagnosis: SINUS BRADYCARDIA WITH 1ST DEGREE AV BLOCK INFERIOR MYOCARDIAL INFARCTION , AGE UNDETERMINED ST & LATERAL T WAVE ABNORMALITY ABNORMAL ECG Confirmed by JOSEP ROTHMAN MD ([id number]) on 06/18/2023 3:46:57 PM Test Reason : 921 Location : 23 : J21NS J21NS Overread By : JOSEP ROTHMAN MD Edited By : JOSEP ROTHMAN MD Referred By : , Acquired by : [id number], Normal [facility] Francesca 06-10-2023 CNPN Telephone (CATBONNIEN) ISAIAS SANON ([id number]) 1945 M Date Time Provider Department 06/10/23 TAMIKATRACY RIVERAOlivia ABEL During your visit today, we recorded the following information about you: Marcella Mathew, PASCALE 06/10/2023 2:31 PM Signed CARDIOVASCULAR LAB INSTRUCTIONS: Readiness to Learn: Cognitive Ability: Alert and oriented Motivation To Learn: Interested Family/Significant Other Support: High - Very involved in pt care Instruction Provided To: Spouse Patient Learns Best By: Verbal Instruction Factors Affecting Learning: None Physical Limitations Affecting Learning: None Learning Response: Procedure: PTCA/Stent Pre procedure education topics: Arrival time/NPO Status/Medications/Travel Instructions/Restrictions Patient/Family Response Evaluation: Verbalizes understanding Follow Up Plan and Medication: As directed by physician Instruction/Supplemental Material Given: Cardiac catheterization instructions, procedure information, hospital information, hotel information. Instructed By Jluis Mathew RN, RN. In Department of CARDIOLOGY. Allergies As of Date: 06/10/2023 Noted Allergy Reaction ALDACTONE (SPIRONOLACTONE) 05/10/2023 14 - Other: See Comments Comments: Hyperkalemia SEASONAL ALLERGIES 01/30/2017 3 - Cough Comments: Sneezing and watering eyes Date Reviewed: 06/05/2023 Reviewed by: tSephie Montes, PASCALE - Fully Assessed Prescriptions as of 06/10/2023 - clopidogrel (PLAVIX) 75 mg tablet Take 1 tablet by mouth once daily. - furosemide (LASIX) 40 mg tablet Take 1 tablet by mouth once daily. - sertraline (ZOLOFT) 25 mg tablet Take 1 tablet by mouth once daily. - dext 70/polycarbophil/peg/NaCl (ARTIFICIAL TEAR SOLUTION OPHTHALMIC) Use 1 Drop in eyes as needed. - sirolimus (RAPAMUNE) 0.5 mg tablet Take 1 tablet by mouth once daily. Pfizer PAP refill - dilTIAZem CD (CARDIZEM CD, CARTIA XT) 240 mg 24 hr capsule Take 1 capsule by mouth once daily. - sodium bicarbonate 650 mg tablet TAKE 1 TABLET BY MOUTH THREE TIMES DAILY - carvedilol (COREG) 25 mg tablet Take 1 tablet by mouth twice daily. - atorvastatin (LIPITOR) 40 mg tablet Take 1 tablet by mouth daily at bedtime. - Blood Pressure Monitor 1 Each twice daily. - acetaminophen (TYLENOL) 500 mg tablet Take 2 tablets by mouth every 6 hours as needed for pain. - magnesium/vitamin E/pyridoxine (VITAMIN B6-VITAMIN E-MAGNESIUM ORAL) Take 1 tablet by mouth once daily. - gabapentin (NEURONTIN) 100 mg capsule Take 100 mg by mouth once daily. - azelastine (ASTELIN) 0.1% nasal spray Use 2 Sprays in each nostril twice daily. - pyridoxine, vitamin B6, (VITAMIN B6) 100 mg tablet Take 1 tablet by mouth once daily. - aspirin 81 mg chewable tablet Take 1 tablet by mouth once daily. - Cholecalciferol, Vitamin D3, 5,000 unit tab Take 1 tablet by mouth once daily. Facility-Administered Medications as of 06/10/2023 - perflutren lipid microspheres 1.3 mL in NaCl (PF) 0.9% 10 mL injection (DEFINITY) - sodium chloride 0.9 % (flush) 10 mL (BD POSIFLUSH) Meds Comments as of 02/06/2013: Per pt no change in meds Problem List As Of Date 06/10/2023 Noted Resolved SUMMARY [V999.95] 01/13/2013 10/19/2019 Ascites [R18.8] 01/13/2013 10/19/2019 Hyperbilirubinemia [E80.6] 01/13/2013 History of encephalopathy [Z86.69] 02/06/2013 Duodenal ulcer [K26.9] 02/06/2013 10/25/2020 Osteopenia [M85.80] 11/26/2013 Liver transplant status (HCC) [Z94.4] 04/07/2014 Need for prophylactic immunotherapy [Z29.89] 04/07/2014 10/19/2019 History of alcohol abuse [F10.11] History of cirrhosis of liver [Z87.19] Arthritis [M19.90] Cataract of both eyes [H26.9] CRVO (central retinal vein occlusion) [H34.8192] Tributary (branch) retinal vein occlusion, left* Hypertensive retinopathy [H35.039] Amblyopia of left eye [H53.002] Well adult exam [Z00.00] 05/18/2014 10/19/2019 Essential hypertension [I10] 05/18/2014 Thrombocytopenia (HCC) [D69.6] 05/18/2014 10/19/2019 Vertigo [R42] 05/18/2014 Mixed hyperlipidemia [E78.2] 06/23/2014 Gastroesophageal reflux disease without esophag*08/24/2015 History of hemochromatosis [Z86.39] 08/24/2015 Prostate cancer screening [Z12.5] 02/22/2016 10/19/2019 Balance problem [R26.89] 06/19/2016 Elevated prostate specific antigen (PSA) [R97.2*10/19/2016 Type 2 diabetes mellitus with stage 3b chronic *10/23/2016 Proteinuria [R80.9] 10/21/2017 Chronic pain of both ankles [M25.571, G89.29, M*12/13/2017 Pain in left foot [M79.672] 02/20/2019 10/25/2020 Transaminitis [R74.01] 03/25/2019 03/27/2019 History of deep venous thrombosis (DVT) of dist*04/06/[address] [Z95.828] 04/06/2019 Hyperkalemia [E87.5] 04/24/2019 10/25/2020 Medication management [Z79.899] 05/18/2019 10/19/2019 CKD (chronic kidney disease) stage 4, GFR 15-29*06/19/2016 Secondary hyperparathyroidism of renal origin (*10/19/2019 (more content not included)... Normal [facility] Basic metabolic 2000 panelon 06-05-2023 Anion gap [Moles/Vol] 12 mmol/L Normal -18 [facility] Comment on above: Order Comment: Speci men Type: BLOOD SPECIMEN Ordering Facility: [facility] Address: [address] [place] [address] Performed By: #### 2 4323-8, 2777-1, 73456-8 #### [facility] CLIA [id number] [address] [place] [address] [place] Calcium [Mass/Vol] 10.1 mg/dL Normal 8.5-10.2 [facility] Comment on above: Order Comment: Speci men Type: BLOOD SPECIMEN Ordering Facility: [facility] Address: [address] [place] [address] Performed By: #### 2 4323-8, 27702-16, #### [facility] CLIA [id number] [address] [place] [id number] [place] Chloride [Moles/Vol] 103 mmol/L Normal 97-105 [facility] Comment on above: Order Comment: Speci men Type: BLOOD SPECIMEN Ordering Facility: [facility] Address: [address] [place] [address] Performed By: #### 2 4323-8, 27702-16, #### [facility] CLIA [id number] [address] [place] [address] [place] CO2 [Moles/Vol] 25 mmol/L Normal 22-30 [facility] Comment on above: Order Comment: Speci men Type: BLOOD SPECIMEN Ordering Facility: [facility] Address: [address] [place] [address] Performed By: #### 2 4323-8, 27702-16, #### [facility] CLIA [id number] [address] [place] [address] [place] Creatinine [Mass/Vol] 3.47 mg/dL High 0.73-1.22 [facility] Comment on above: Order Comment: Speci men Type: BLOOD SPECIMEN Ordering Facility: [facility] Address: [address] [place] [address] Performed By: #### 2 4323-8, 27702-16, #### [facility] CLIA [id number] [address] [place] [id number] [place] Creatinine and Glomerular filtration rate.predicted panel (S/P/Bld) 17 mL/min/1.73m??? Low >=60 [facility] Comment on above: Order Comment: Speci men Type: BLOOD SPECIMEN Ordering Facility: [facility] Address: [address] [place] [address] Result Comment: Kya mated Glomerular Filtration Rate (eGFR) is calculated using the 2020 CKD-EPI creatinine equation. This equation utilizes serum creatinine, sex, and age as parameters. The creatinine assay has traceable calibration to isotope dilution-mass spectrometry. Refer to KDIGO guidelines for clinical interpretation. In patients with unstable renal function, e.g. those with acute kidney injury, the eGFR may not accurately reflect actual GFR. Performed By: #### 2 4323-8, 2777, #### [facility] CLIA [id number] [address] [address] [place] Glucose [Mass/Vol] 134 mg/dL High 74-99 [facility] Comment on above: Order Comment: Deanna wren Type: BLOOD SPECIMEN Ordering Facility: [facility] Address: [address] [place] [address] Result Comment: The [place] Diabetes Association (ADA) provides guidance for cutoff values for fasting glucose and random glucose. The ADA defines fasting as no caloric intake for at least 8 hours. Fasting plasma glucose results between 100 to 125 mg/dL indicate increased risk for diabetes (prediabetes). Fasting plasma glucose results greater than or equal to 126 mg/dL meet the criteria for diagnosis of diabetes. In the absence of unequivocal hyperglycemia, results should be confirmed by repeat testing. In a patient with classic symptoms of hyperglycemia or hyperglycemic crisis, random plasma glucose results greater than or equal to 200 mg/dL meet the criteria for diagnosis of diabetes. Reference: Standards of Medical Care in Diabetes 2016, [employer] Diabetes Association. Diabetes Care. 2016.39(Suppl 1). Performed By: #### 2 4323-8, 27702-16, #### [facility] CLIA [id number] [address] [address] [place] Potassium [Moles/Vol] 4.5 mmol/L Normal 3.7-5.1 [facility] Comment on above: Order Comment: Deanna wren Type: BLOOD SPECIMEN Ordering Facility: [facility] Address: [address] [place] [address] Performed By: #### 2 4323-8, 2777, #### [facility] CLIA [id number] [address] [place] [address] [place] Sodium [Moles/Vol] 140 mmol/L Normal 136-144 [facility] Comment on above: Order Comment: Speci men Type: BLOOD SPECIMEN Ordering Facility: [facility] Address: [address] [place] [address] Performed By: #### 2 4323-8, 2777-1, 23861-5 #### [facility] CLIA [id number] [address] [place] [address] [place] Urea nitrogen [Mass/Vol] 50 mg/dL High 9-24 [facility] Comment on above: Order Comment: Speci men Type: BLOOD SPECIMEN Ordering Facility: [facility] Address: [address] [place] [address] Performed By: #### 2 4323-8, 2777-1, 22336-1 #### [facility] CLIA [id number] [address] [place] [address] [place] CARD CATH DIAGNOSTICon 06-05 CARD CATH DIAGNOSTIC Site Id: [facility] Lab #: [id number] 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 Nursing/Megan De La Torre R.N., K. R.N Kovar, K. R.N. Smith, Dawn R.N. + + PATIENT INFORMATION + + Name: MR. ISAIAS SANON : 1945 Age: 78 years Gender: M Height: 67 in / 170 cm Weight: 197.00 lb / 89.36 kg BMI: 30.92 kg/m BSA: 2.01 m + ----+ CLINICAL HISTORY/INDICATION(s) + ----+ High-risk noninvasive findings in a medically managed patient with worsening/limiting symptoms and worsening findings; AUC score = 9. CAD Presentation: Stable Angina Angina Classification (within 2 weeks): CCS II No Heart Failure 78 year-old man with CAD with chronic stable angina, exercise intolerance, prior CVA, CKD IV c/b secondary hyperparathyroidism, EtOH cirrhosis s/p OLT (2012), DVT, GERD undergoing diagnostic LHC for abnormal stress test with LCx territory involvement, transient ischemic dilatation and stress-induced decrease in LVEF. Access Point Sheath Size Hemostasis Method Right Radial Artery 5F Short Radial TR band + + DIAGNOSTIC FINDINGS + + Coronary Anatomy: Right Dominant Injection Site(s): Left Main Coronary Artery and Right Coronary Artery LMT: _ The LMT has mild luminal irregularities. Additional Comment: - LMT is a large caliber vessel that trifurcates into the LAD, ramus, and LCx. LAD: _ The proximal LAD is narrowed 80 % - focal disease. _ The 1st diagonal is narrowed 70 % - focal disease. Additional Comment: - LAD is a large caliber vessel that wraps around the apex - There is a severe 80% focal stenosis in the proximal LAD on a background of moderate diffuse disease - Large D1 branch has severe 70% focal stenosis in the mid segment. LCX: _ The distal circumflex is narrowed 90 % - focal disease. _ The 1st obtuse marginal circumflex is narrowed 90 % - focal disease. Additional Comment: - LCx is a non-dominant, large caliber vessel - There is severe 90% focal stenosis in the distal LCx - Large OM1 has severe 90% focal stenosis. RAMUS: _ The Ramus has mild diffuse disease. RCA: _ The RCA has mild diffuse disease. Additional Comment: - RCA is a dominant, large caliber vessel that bifurcates into the PDA and PLV in the distal segment - Linear contrast streaking in the proximal RCA segment, favored to represent calcified plaque over chronic focal dissection. Patient without symptoms during and after procedure. RCA engagement was atraumatic and uncomplicated. + + IMPRESSION/PLAN + + Impression: 1. Right dominant system. Severe multivessel disease with focal stenosis in proximal LAD, mid D1, distal LCx, and proximal OM1. - Non-obstructive CAD in the RCA Recommended Treatment: PCI and Medical Therapy. Plan: 1. Recommend complex staged PCI after discussion of risks vs benefits of CABG vs. percutaneous intervention with patient and family 2. Optimize medical therapy for obstructive CAD. + --------+ ADVERSE OUTCOME(s)/COMPLICATION(s) + --------+ None + ----+ PROCEDURAL & TECHNICAL DETAILS + ----+ PROCEDURE SEQUENCE: Time Procedure Performed 06/05/2023 1:57:59 PM Left Heart Cath PROCEDURE DETAILS: Contrast: Contrast Type Total Infused Isovue 100ml 30 Blood Loss: < 30ml Specimen: No Specimen Obtained RADIATION: Procedure performed under Fluoroscopic Guidance Total Dose Dose Area Product Total Exposure Time 140.96 mGy 6.68 Gy*cm 163.00 sec + + MEDICAL HISTORY + + Left Ventricle EF: 58% by Echo. Physician Intra Service Procedure Start Time: 06/05/2023 2:06:13 PM Physician Intra Service Procedure End Time: 06/05/2023 2:36:04 PM Attending Physician Presence Attestation: Electronically submitted by: Jonah Dawson MD On: 06/05/2023 at 9:07:19 PM Final CC [employer] [facility] : [id number] See Link below for Image Normal [facility] CBC panel Auto (Bld)on 06-05 Erythrocyte distribution width (RBC) [Ratio] 13.8 % Normal 11.5-15.0 [facility] Comment on above: Order Comment: Speci men Type: BLOOD SPECIMEN Ordering Facility: [facility] Address: [address] [place] [address] Performed By: #### 2 4323-8, 2777, #### [facility] CLIA [id number] [address] [place] [address] [place] Hematocrit (Bld) [Volume fraction] 33.4 % Low 39.0-51.0 [facility] Comment on above: Order Comment: Speci men Type: BLOOD SPECIMEN Ordering Facility: [facility] Address: [address] [place] [address] Performed By: #### 2 4323-8, 27702-16, #### [facility] CLIA [id number] [address] [place] [address] [place] Hemoglobin (Bld) [Mass/Vol] 10.7 g/dL Low 13.0-17.0 [facility] Comment on above: Order Comment: Speci men Type: BLOOD SPECIMEN Ordering Facility: [facility] Address: [address] [place] [address] Performed By: #### 2 4323-8, 27702-16, #### [facility] CLIA [id number] [address] [place] [address] [place] MCH (RBC) [Entitic mass] 28.4 pg Normal 26.0-34.0 [facility] Comment on above: Order Comment: Speci men Type: BLOOD SPECIMEN Ordering Facility: [facility] Address: [address] [place] [address] Performed By: #### 2 4323-8, 27702-16, #### [facility] CLIA [id number] [address] [place] [address] [place] MCHC (RBC) [Mass/Vol] 32.0 g/dL Normal 30.5-36.0 [facility] Comment on above: Order Comment: Speci men Type: BLOOD SPECIMEN Ordering Facility: [facility] Address: [address] [place] [address] Performed By: #### 2 4323-8, 27702-16, #### [facility] CLIA [id number] [address] [place] [address] [place] MCV (RBC) [Entitic vol] 88.6 fL Normal 80.0-100.0 [facility] Comment on above: Order Comment: Speci men Type: BLOOD SPECIMEN Ordering Facility: [facility] Address: [address] [place] [address] Performed By: #### 2 4323-8, 27702-16, #### [facility] CLIA [id number] [address] [place] [address] [place] Nucleated RBC (Bld) [#/Vol] 10*3/uL Normal <0.01 [facility] Comment on above: Order Comment: Speci men Type: BLOOD SPECIMEN Ordering Facility: [facility] Address: [address] [place] [address] Performed By: #### 2 4323-8, 27702-16, #### [facility] CLIA [id number] [address] [place] [address] [place] Platelet mean volume (Bld) [Entitic vol] 8.7 fL Low 9.0-12.7 [facility] Comment on above: Order Comment: Speci men Type: BLOOD SPECIMEN Ordering Facility: [facility] Address: [address] [place] [address] Performed By: #### 2 4323-8, 277, #### [facility] CLIA [id number] [address] [place] [id number] [place] Platelets (Bld) [#/Vol] 128 10*3/uL Low 150-400 [facility] Comment on above: Order Comment: Speci men Type: BLOOD SPECIMEN Ordering Facility: [facility] Address: [address] [place] [address] Performed By: #### 2 4323-8, 2777, #### [facility] CLIA [id number] [address] [place] [address] [place] RBC (Bld) [#/Vol] 3.77 10*6/uL Low 4.20-6.00 [facility] Comment on above: Order Comment: Speci men Type: BLOOD SPECIMEN Ordering Facility: [facility] Address: [address] [place] [address] Performed By: #### 2 4323-8, 2777, #### [facility] CLIA [id number] [address] [place] [address] [place] WBC (Bld) [#/Vol] 7.16 10*3/uL Normal 3.70-11.00 [facility] Comment on above: Order Comment: Speci men Type: BLOOD SPECIMEN Ordering Facility: [facility] Address: [address] [place] [address] Performed By: #### 2 4323-8, 2777, #### [facility] CLIA [id number] [address] [place], [place] [id number] [place] Francesca 06-04-2023 WILFREDON Telephone (PAGE) ISAIAS SANON ([id number]) 1945 M Date Time Provider Department 06/04/23 JONAH DAWSON During your visit today, we recorded the following information about you: Marcella Mathew, RN 06/04/2023 1:35 PM Signed CARDIOVASCULAR LAB INSTRUCTIONS: Readiness to Learn: Cognitive Ability: Alert and oriented Motivation To Learn: Interested Family/Significant Other Support: High - Very involved in pt care Instruction Provided To: Spouse Patient Learns Best By: Individual Instruction Factors Affecting Learning: None Physical Limitations Affecting Learning: None Learning Response: Procedure: Left Heart Diagnostic Pre procedure education topics: Arrival time/NPO Status/Medications/Travel Instructions/Restrictions Patient/Family Response Evaluation: Verbalizes understanding Follow Up Plan and Medication: As directed by physician Instruction/Supplemental Material Given: Cardiac catheterization instructions, procedure information, hospital information, hotel information. Instructed By Jluis Mathew RN, RN. In Department of CARDIOLOGY. Allergies As of Date: 06/04/2023 Noted Allergy Reaction ALDACTONE (SPIRONOLACTONE) 05/10/2023 14 - Other: See Comments Comments: Hyperkalemia SEASONAL ALLERGIES 01/30/2017 3 - Cough Comments: Sneezing and watering eyes Date Reviewed: 05/17/2023 Reviewed by: Sanju Banerjee MD - Fully Assessed Reason for Visit: Patient Education [91] Prescriptions as of 06/04/2023 - furosemide (LASIX) 40 mg tablet Take 1 tablet by mouth once daily. - sertraline (ZOLOFT) 25 mg tablet Take 1 tablet by mouth once daily. - dext 70/polycarbophil/peg/NaCl (ARTIFICIAL TEAR SOLUTION OPHTHALMIC) Use 1 Drop in eyes as needed. - sirolimus (RAPAMUNE) 0.5 mg tablet Take 1 tablet by mouth once daily. [employer] PAP refill - dilTIAZem CD (CARDIZEM CD, CARTIA XT) 240 mg 24 hr capsule Take 1 capsule by mouth once daily. - sodium bicarbonate 650 mg tablet TAKE 1 TABLET BY MOUTH THREE TIMES DAILY - carvedilol (COREG) 25 mg tablet Take 1 tablet by mouth twice daily. - atorvastatin (LIPITOR) 40 mg tablet Take 1 tablet by mouth daily at bedtime. - Blood Pressure Monitor 1 Each twice daily. - acetaminophen (TYLENOL) 500 mg tablet Take 2 tablets by mouth every 6 hours as needed for pain. - magnesium/vitamin E/pyridoxine (VITAMIN B6-VITAMIN E-MAGNESIUM ORAL) Take 1 tablet by mouth once daily. - gabapentin (NEURONTIN) 100 mg capsule Take 100 mg by mouth once daily. - azelastine (ASTELIN) 0.1% nasal spray Use 2 Sprays in each nostril twice daily. - pyridoxine, vitamin B6, (VITAMIN B6) 100 mg tablet Take 1 tablet by mouth once daily. - aspirin 81 mg chewable tablet Take 1 tablet by mouth once daily. - Cholecalciferol, Vitamin D3, 5,000 unit tab Take 1 tablet by mouth once daily. Facility-Administered Medications as of 06/04/2023 - perflutren lipid microspheres 1.3 mL in NaCl (PF) 0.9% 10 mL injection (DEFINITY) - sodium chloride 0.9 % (flush) 10 mL (BD POSIFLUSH) Meds Comments as of 02/06/2013: Per pt no change in meds Problem List As Of Date 06/04/2023 Noted Resolved SUMMARY [V999.95] 01/13/2013 10/19/2019 Ascites [R18.8] 01/13/2013 10/19/2019 Hyperbilirubinemia [E80.6] 01/13/2013 History of encephalopathy [Z86.69] 02/06/2013 Duodenal ulcer [K26.9] 02/06/2013 10/25/2020 Osteopenia [M85.80] 11/26/2013 Liver transplant status (HCC) [Z94.4] 04/07/2014 Need for prophylactic immunotherapy [Z29.89] 04/07/2014 10/19/2019 History of alcohol abuse [F10.11] History of cirrhosis of liver [Z87.19] Arthritis [M19.90] Cataract of both eyes [H26.9] CRVO (central retinal vein occlusion) [H34.8192] Tributary (branch) retinal vein occlusion, left* Hypertensive retinopathy [H35.039] Amblyopia of left eye [H53.002] Well adult exam [Z00.00] 05/18/2014 10/19/2019 Essential hypertension [I10] 05/18/2014 Thrombocytopenia (HCC) [D69.6] 05/18/2014 10/19/2019 Vertigo [R42] 05/18/2014 Mixed hyperlipidemia [E78.2] 06/23/2014 Gastroesophageal reflux disease without esophag*08/24/2015 History of hemochromatosis [Z86.39] 08/24/2015 Prostate cancer screening [Z12.5] 02/22/2016 10/19/2019 Balance problem [R26.89] 06/19/2016 Elevated prostate specific antigen (PSA) [R97.2*10/19/2016 Type 2 diabetes mellitus with stage 3b chronic *10/23/2016 Proteinuria [R80.9] 10/21/2017 Chronic pain of both ankles [M25.571, G89.29, M*12/13/2017 Pain in left foot [M79.672] 02/20/2019 10/25/2020 Transaminitis [R74.01] 03/25/2019 03/27/2019 History of deep venous thrombosis (DVT) of dist*04/06/[address] [Z95.828] 04/06/2019 Hyperkalemia [E87.5] 04/24/2019 10/25/2020 Medication management [Z79.899] 05/18/2019 10/19/2019 CKD (chronic kidney disease) stage 4, GFR 15-29*06/19/2016 Secondary hyperparathyroidism of renal origin (*10/19/2019 History (more content not included)... [facility] ([id number]) 1945 M Date Time Provider Department 05/23/23 [facility] During your visit today, we recorded the following information about you: Sanju Banerjee MD 05/23/2023 10:29 PM Signed Let patient know all his stool studies were normal. See if still having diarrhea. If so then next step is to see gastro for eval and most likely a colonoscopy. Terra Dang MA 05/24/2023 8:35 AM Signed Spoke with brittani and she indicated that patient's diarrhea has let up. If that changes they will contact office. ZITA Valencia Jeffrey A, MD 05/24/2023 2:01 PM Signed Noted. Allergies As of Date: 05/23/2023 Noted Allergy Reaction ALDACTONE (SPIRONOLACTONE) 05/10/2023 14 - Other: See Comments Comments: Hyperkalemia SEASONAL ALLERGIES 01/30/2017 3 - Cough Comments: Sneezing and watering eyes Date Reviewed: 05/17/2023 Reviewed by: Sanju Banerjee MD - Fully Assessed Reason for Visit: Results [95] Prescriptions as of 05/24/2023 - furosemide (LASIX) 40 mg tablet Take 1 tablet by mouth once daily. - sertraline (ZOLOFT) 25 mg tablet Take 1 tablet by mouth once daily. - dext 70/polycarbophil/peg/NaCl (ARTIFICIAL TEAR SOLUTION OPHTHALMIC) Use 1 Drop in eyes as needed. - sirolimus (RAPAMUNE) 0.5 mg tablet Take 1 tablet by mouth once daily. [employer] PAP refill - dilTIAZem CD (CARDIZEM CD, CARTIA XT) 240 mg 24 hr capsule Take 1 capsule by mouth once daily. - sodium bicarbonate 650 mg tablet TAKE 1 TABLET BY MOUTH THREE TIMES DAILY - carvedilol (COREG) 25 mg tablet Take 1 tablet by mouth twice daily. - atorvastatin (LIPITOR) 40 mg tablet Take 1 tablet by mouth daily at bedtime. - Blood Pressure Monitor 1 Each twice daily. - acetaminophen (TYLENOL) 500 mg tablet Take 2 tablets by mouth every 6 hours as needed for pain. - magnesium/vitamin E/pyridoxine (VITAMIN B6-VITAMIN E-MAGNESIUM ORAL) Take 1 tablet by mouth once daily. - gabapentin (NEURONTIN) 100 mg capsule Take 100 mg by mouth once daily. - azelastine (ASTELIN) 0.1% nasal spray Use 2 Sprays in each nostril twice daily. - pyridoxine, vitamin B6, (VITAMIN B6) 100 mg tablet Take 1 tablet by mouth once daily. - aspirin 81 mg chewable tablet Take 1 tablet by mouth once daily. - Cholecalciferol, Vitamin D3, 5,000 unit tab Take 1 tablet by mouth once daily. Facility-Administered Medications as of 05/24/2023 - perflutren lipid microspheres 1.3 mL in NaCl (PF) 0.9% 10 mL injection (DEFINITY) - sodium chloride 0.9 % (flush) 10 mL (BD POSIFLUSH) Meds Comments as of 02/06/2013: Per pt no change in meds Problem List As Of Date 05/23/2023 Noted Resolved SUMMARY [V999.95] 01/13/2013 10/19/2019 Ascites [R18.8] 01/13/2013 10/19/2019 Hyperbilirubinemia [E80.6] 01/13/2013 History of encephalopathy [Z86.69] 02/06/2013 Duodenal ulcer [K26.9] 02/06/2013 10/25/2020 Osteopenia [M85.80] 11/26/2013 Liver transplant status (HCC) [Z94.4] 04/07/2014 Need for prophylactic immunotherapy [Z29.89] 04/07/2014 10/19/2019 History of alcohol abuse [F10.11] History of cirrhosis of liver [Z87.19] Arthritis [M19.90] Cataract of both eyes [H26.9] CRVO (central retinal vein occlusion) [H34.8192] Tributary (branch) retinal vein occlusion, left* Hypertensive retinopathy [H35.039] Amblyopia of left eye [H53.002] Well adult exam [Z00.00] 05/18/2014 10/19/2019 Essential hypertension [I10] 05/18/2014 Thrombocytopenia (HCC) [D69.6] 05/18/2014 10/19/2019 Vertigo [R42] 05/18/2014 Mixed hyperlipidemia [E78.2] 06/23/2014 Gastroesophageal reflux disease without esophag*08/24/2015 History of hemochromatosis [Z86.39] 08/24/2015 Prostate cancer screening [Z12.5] 02/22/2016 10/19/2019 Balance problem [R26.89] 06/19/2016 Elevated prostate specific antigen (PSA) [R97.2*10/19/2016 Type 2 diabetes mellitus with stage 3b chronic *10/23/2016 Proteinuria [R80.9] 10/21/2017 Chronic pain of both ankles [M25.571, G89.29, M*12/13/2017 Pain in left foot [M79.672] 02/20/2019 10/25/2020 Transaminitis [R74.01] 03/25/2019 03/27/2019 History of deep venous thrombosis (DVT) of dist*04/06/[address] [Z95.828] 04/06/2019 Hyperkalemia [E87.5] 04/24/2019 10/25/2020 Medication management [Z79.899] 05/18/2019 10/19/2019 CKD (chronic kidney disease) stage 4, GFR 15-29*06/19/2016 Secondary hyperparathyroidism of renal origin (*10/19/2019 History of stroke [Z86.73] 10/26/2019 Obesity, Class I, BMI 30-34.9 [E66.9] 10/27/2019 Lupus anticoagulant syndrome (HCC) [D68.62] 10/28/2019 Anemia of renal disease [N18.9, D63.1] 11/25/2019 Metabolic acidosis [E87.20] 11/25/2019 10/25/2020 Cirrhosis of liver (HCC) [K74.60] 10/25/2020 CKD (chronic kidney disease) stage 3, GFR 30-59*06/19/2016 10/25/2020 Hypertensive kidney disease with stage 4 chroni*05/18/2014 Liver transplanted (HCC) [Z94.4] (more content not included)... Normal [facility] Francesca 05-21-2023 CNPN Telephone (TXCTMN) ISAIAS SANON ([id number]) 1945 M Date Time Provider Department 05/21/23 ALIX MADDEN TXCTMN During your visit today, we recorded the following information about you: Alix Madden 05/21/2023 1:10 PM Signed Pt's spouse called in regards to wanting to update team that the pt will be getting a cat scan soon. Antoine Estrada RN 05/22/2023 12:14 PM Signed Spoke with who states cardiology found an issue with his heart and needs RHC and she is worried the dye will push is kidneys into renal failure. Advised no contraindication for RHC from liver transplant standpoint but can not guarantee kidney health and encouraged her to discuss her concerns with nephrology. All questions answered, no further needs at this time. Antoine Estrada, RN, BSN, [facility] Liver Binder Operator Allergies As of Date: 05/21/2023 Noted Allergy Reaction ALDACTONE (SPIRONOLACTONE) 05/10/2023 14 - Other: See Comments Comments: Hyperkalemia SEASONAL ALLERGIES 01/30/2017 3 - Cough Comments: Sneezing and watering eyes Date Reviewed: 05/17/2023 Reviewed by: Sanju Banerjee MD - Fully Assessed Reason for Visit: Patient Update [1234] Prescriptions as of 05/22/2023 - furosemide (LASIX) 40 mg tablet Take 1 tablet by mouth once daily. - sertraline (ZOLOFT) 25 mg tablet Take 1 tablet by mouth once daily. - dext 70/polycarbophil/peg/NaCl (ARTIFICIAL TEAR SOLUTION OPHTHALMIC) Use 1 Drop in eyes as needed. - sirolimus (RAPAMUNE) 0.5 mg tablet Take 1 tablet by mouth once daily. [employer] PAP refill - dilTIAZem CD (CARDIZEM CD, CARTIA XT) 240 mg 24 hr capsule Take 1 capsule by mouth once daily. - sodium bicarbonate 650 mg tablet TAKE 1 TABLET BY MOUTH THREE TIMES DAILY - carvedilol (COREG) 25 mg tablet Take 1 tablet by mouth twice daily. - atorvastatin (LIPITOR) 40 mg tablet Take 1 tablet by mouth daily at bedtime. - Blood Pressure Monitor 1 Each twice daily. - acetaminophen (TYLENOL) 500 mg tablet Take 2 tablets by mouth every 6 hours as needed for pain. - magnesium/vitamin E/pyridoxine (VITAMIN B6-VITAMIN E-MAGNESIUM ORAL) Take 1 tablet by mouth once daily. - gabapentin (NEURONTIN) 100 mg capsule Take 100 mg by mouth once daily. - azelastine (ASTELIN) 0.1% nasal spray Use 2 Sprays in each nostril twice daily. - pyridoxine, vitamin B6, (VITAMIN B6) 100 mg tablet Take 1 tablet by mouth once daily. - aspirin 81 mg chewable tablet Take 1 tablet by mouth once daily. - Cholecalciferol, Vitamin D3, 5,000 unit tab Take 1 tablet by mouth once daily. Facility-Administered Medications as of 05/22/2023 - perflutren lipid microspheres 1.3 mL in NaCl (PF) 0.9% 10 mL injection (DEFINITY) - sodium chloride 0.9 % (flush) 10 mL (BD POSIFLUSH) Meds Comments as of 02/06/2013: Per pt no change in meds Problem List As Of Date 05/21/2023 Noted Resolved SUMMARY [V999.95] 01/13/2013 10/19/2019 Ascites [R18.8] 01/13/2013 10/19/2019 Hyperbilirubinemia [E80.6] 01/13/2013 History of encephalopathy [Z86.69] 02/06/2013 Duodenal ulcer [K26.9] 02/06/2013 10/25/2020 Osteopenia [M85.80] 11/26/2013 Liver transplant status (HCC) [Z94.4] 04/07/2014 Need for prophylactic immunotherapy [Z29.89] 04/07/2014 10/19/2019 History of alcohol abuse [F10.11] History of cirrhosis of liver [Z87.19] Arthritis [M19.90] Cataract of both eyes [H26.9] CRVO (central retinal vein occlusion) [H34.8192] Tributary (branch) retinal vein occlusion, left* Hypertensive retinopathy [H35.039] Amblyopia of left eye [H53.002] Well adult exam [Z00.00] 05/18/2014 10/19/2019 Essential hypertension [I10] 05/18/2014 Thrombocytopenia (HCC) [D69.6] 05/18/2014 10/19/2019 Vertigo [R42] 05/18/2014 Mixed hyperlipidemia [E78.2] 06/23/2014 Gastroesophageal reflux disease without esophag*08/24/2015 History of hemochromatosis [Z86.39] 08/24/2015 Prostate cancer screening [Z12.5] 02/22/2016 10/19/2019 Balance problem [R26.89] 06/19/2016 Elevated prostate specific antigen (PSA) [R97.2*10/19/2016 Type 2 diabetes mellitus with stage 3b chronic *10/23/2016 Proteinuria [R80.9] 10/21/2017 Chronic pain of both ankles [M25.571, G89.29, M*12/13/2017 Pain in left foot [M79.672] 02/20/2019 10/25/2020 Transaminitis [R74.01] 03/25/2019 03/27/2019 History of deep venous thrombosis (DVT) of dist*04/06/[address] [Z95.828] 04/06/2019 Hyperkalemia [E87.5] 04/24/2019 10/25/2020 Medication management [Z79.899] 05/18/2019 10/19/2019 CKD (chronic kidney disease) stage 4, GFR 15-29*06/19/2016 Secondary hyperparathyroidism of renal origin (*10/19/2019 History of stroke [Z86.73] 10/26/2019 Obesity, Class I, BMI 30-34.9 [E66.9] 10/27/2019 Lupus anticoagulant syndrome (HCC) [D68.62] 10/28/2019 Anemia of renal disease [N18.9, D63.1] 11/25/2019 Metabolic acidosis [E87.20] 11/25/2019 10/25/2020 Cirrhosis of liver (HCC) [K74 (more content not included)... Normal [facility] C diff Tox gens Stl Ql MAYTE+p robeon 05-20-2023 C. difficile toxin genes MAYTE+probe Ql (Stl) Negative Normal Negative for C. difficile toxin by PCR [facility] Comment on above: Order Comment: Speci men Type: BLOOD SPECIMEN Ordering Facility: [facility] Address: [address] [place] [address] Performed By: #### 2 4323-8, 2777-1, 62381-9 #### [facility] CLIA [id number] [address] [facility] [place] [address] [place] CBC W Auto Differential pane l (Bld)on 05-20-2023 Basophils (Bld) [#/Vol] 0.04 10*3/uL Normal <0.11 [facility] Comment on above: Order Comment: Speci men Type: BLOOD SPECIMEN Ordering Facility: [facility] Address: [address] [place] [address] Performed By: #### 2 4323-8, 2776-08, #### [facility] CLIA [id number] [address] [place] [address] [place] Basophils/100 WBC (Bld) 0.7 % Normal [facility] Comment on above: Order Comment: Speci men Type: BLOOD SPECIMEN Ordering Facility: [facility] Address: [address] [place] [address] Performed By: #### 2 4323-8, 2776-08, #### [facility] CLIA [id number] [address] [place] [address] [place] Differential cell count method Nom (Bld) Auto Normal [facility] Comment on above: Order Comment: Speci men Type: BLOOD SPECIMEN Ordering Facility: [facility] Address: [address] [place] [address] Performed By: #### 2 4323-8, 2776-08, #### [facility] CLIA [id number] [address] [place] [address] [place] Eosinophils (Bld) [#/Vol] 0.10 10*3/uL Normal <0.46 [facility] Comment on above: Order Comment: Speci men Type: BLOOD SPECIMEN Ordering Facility: [facility] Address: [address] [place] [address] Performed By: #### 2 4323-8, 2776-08, #### [facility] CLIA [id number] [address] [id number] [place] Eosinophils/100 WBC (Bld) 1.7 % Normal [facility] Comment on above: Order Comment: Speci men Type: BLOOD SPECIMEN Ordering Facility: [facility] Address: [address] [place] [address] Performed By: #### 2 4323-8, 2776-08, #### [facility] CLIA [id number] [address] [place] [address] [place] Erythrocyte distribution width (RBC) [Ratio] 14.3 % Normal 11.5-15.0 [facility] Comment on above: Order Comment: Speci men Type: BLOOD SPECIMEN Ordering Facility: [facility] Address: [address] [place] [address] Performed By: #### 2 4323-8, 27702-16, #### [facility] CLIA [id number] [address] [place] [address] [place] Hematocrit (Bld) [Volume fraction] 33.8 % Low 39.0-51.0 [facility] Comment on above: Order Comment: Speci men Type: BLOOD SPECIMEN Ordering Facility: [facility] Address: [address] [place] [address] Performed By: #### 2 4323-8, 2776-08, #### [facility] CLIA [id number] [address] [place] [address] [place] Hemoglobin (Bld) [Mass/Vol] 10.8 g/dL Low 13.0-17.0 [facility] Comment on above: Order Comment: Speci men Type: BLOOD SPECIMEN Ordering Facility: [facility] Address: [address] [place] [address] Performed By: #### 2 4323-8, 2776-08, #### [facility] CLIA [id number] [address] [place] [address] [place] Immature granulocytes (Bld) [#/Vol] 0.07 10*3/uL Normal <0.10 [facility] Comment on above: Order Comment: Speci men Type: BLOOD SPECIMEN Ordering Facility: [facility] Address: [address] [place] [address] Performed By: #### 2 4323-8, 2776-08, #### [facility] CLIA [id number] [address] [place], [place] [address] [place] Immature granulocytes/100 WBC (Bld) 1.2 % Normal [facility] Comment on above: Order Comment: Speci men Type: BLOOD SPECIMEN Ordering Facility: [facility] Address: [address] [place] [address] Performed By: #### 2 4323-8, 27702-16, #### [facility] CLIA [id number] [address] [place] [address] [place] Lymphocytes (Bld) [#/Vol] 1.09 10*3/uL Normal 1.00-4.00 [facility] Comment on above: Order Comment: Speci men Type: BLOOD SPECIMEN Ordering Facility: [facility] Address: [address] [place] [address] Performed By: #### 2 4323-8, 2776-08, #### [facility] CLIA [id number] [address] [place], [place] [id number] [place] Lymphocytes/100 WBC (Bld) 18.3 % Normal [facility] Comment on above: Order Comment: Speci men Type: BLOOD SPECIMEN Ordering Facility: [facility] Address: [address] [place] [address] Performed By: #### 2 4323-8, 2776-08, #### [facility] CLIA [id number] [address] [place], [place] [id number] [place] MCH (RBC) [Entitic mass] 28.7 pg Normal 26.0-34.0 [facility] Comment on above: Order Comment: Speci men Type: BLOOD SPECIMEN Ordering Facility: [facility] Address: [address] [place] [address] Performed By: #### 2 4323-8, 27702-16, #### [facility] CLIA [id number] [address] [place] [address] [place] MCHC (RBC) [Mass/Vol] 32.0 g/dL Normal 30.5-36.0 [facility] Comment on above: Order Comment: Speci men Type: BLOOD SPECIMEN Ordering Facility: [facility] Address: [address] [place] [address] Performed By: #### 2 4323-8, 27702-16, #### [facility] CLIA [id number] [address] [place] [address] [place] MCV (RBC) [Entitic vol] 89.9 fL Normal 80.0-100.0 [facility] Comment on above: Order Comment: Speci men Type: BLOOD SPECIMEN Ordering Facility: [facility] Address: [address] [place] [address] Performed By: #### 2 4323-8, 2776-08, #### [facility] CLIA [id number] [address] [place] [address] [place] Monocytes (Bld) [#/Vol] 0.64 10*3/uL Normal <0.87 [facility] Comment on above: Order Comment: Speci men Type: BLOOD SPECIMEN Ordering Facility: [facility] Address: [address] [place] [address] Performed By: #### 2 4323-8, 2776-08, #### [facility] CLIA [id number] [address] [place] [address] [place] Monocytes/100 WBC (Bld) 10.7 % Normal [facility] Comment on above: Order Comment: Speci men Type: BLOOD SPECIMEN Ordering Facility: [facility] Address: [address] [place] [address] Performed By: #### 2 4323-8, 27702-16, #### [facility] CLIA [id number] [address] [place] [id number] [place] Neutrophils (Bld) [#/Vol] 4.02 10*3/uL Normal 1.45-7.50 [facility] Comment on above: Order Comment: Speci men Type: BLOOD SPECIMEN Ordering Facility: [facility] Address: [address] [place] [address] Performed By: #### 2 4323-8, 2776-08, #### [facility] CLIA [id number] [address] [place] [address] [place] Neutrophils/100 WBC (Bld) 67.4 % Normal [facility] Comment on above: Order Comment: Speci men Type: BLOOD SPECIMEN Ordering Facility: [facility] Address: [address] [place] [address] Performed By: #### 2 4323-8, 2776-08, #### [facility] CLIA [id number] [address] [place] [address] [place] Nucleated RBC (Bld) [#/Vol] 10*3/uL Normal <0.01 [facility] Comment on above: Order Comment: Speci men Type: BLOOD SPECIMEN Ordering Facility: [facility] Address: [address] [place] [address] Performed By: #### 2 4323-8, 2776-08, #### [facility] CLIA [id number] [address] [id number] [place] Nucleated RBC/100 WBC (Bld) [Ratio] 0.0 /100 WBC Normal [facility] Comment on above: Order Comment: Speci men Type: BLOOD SPECIMEN Ordering Facility: [facility] Address: [address] [place] [address] Performed By: #### 2 4323-8, 27702-16, #### [facility] CLIA [id number] [address] [address] [place] Platelet mean volume (Bld) [Entitic vol] 9.5 fL Normal 9.0-12.7 [facility] Comment on above: Order Comment: Speci men Type: BLOOD SPECIMEN Ordering Facility: [facility] Address: [address] [place] [address] Performed By: #### 2 4323-8, 2777, #### [facility] CLIA [id number] [address] [place] [address] [place] Platelets (Bld) [#/Vol] 154 10*3/uL Normal 150-400 [facility] Comment on above: Order Comment: Speci men Type: BLOOD SPECIMEN Ordering Facility: [facility] Address: [address] [place] [address] Performed By: #### 2 4323-8, 2777, #### [facility] CLIA [id number] [address] [place] [address] [place] RBC (Bld) [#/Vol] 3.76 10*6/uL Low 4.20-6.00 [facility] Comment on above: Order Comment: Speci men Type: BLOOD SPECIMEN Ordering Facility: [facility] Address: [address] [place] [address] Performed By: #### 2 4323-8, 27702-16, #### [facility] CLIA [id number] [address] [address] [place] WBC (Bld) [#/Vol] 5.96 10*3/uL Normal 3.70-11.00 [facility] Comment on above: Order Comment: Speci men Type: BLOOD SPECIMEN Ordering Facility: [facility] Address: [address] [place] [address] Performed By: #### 2 4323-8, 2777, #### [facility] GIRISHIA [id number] [address] [place] [address] [place] [address] [place] Francesca 05-20-2023 [facility] Telephone (FAMWS) ISAIAS SANON ([id number]) 1945 M Date Time Provider Department 05/20/23 SANJU [facility]ER[facility]EE [facility] During your visit today, we recorded the following information about you: Sanju Banerjee MD 05/20/2023 6:17 PM Signed Let patient know his stool test for C. Diff was negative. The other stool studies are still pending. Kadi Mtz LPN 05/20/2023 6:55 PM Signed Spoke with pt's and result below given. verbalizes understanding. Kadi Mtz LPN Allergies As of Date: 05/20/2023 Noted Allergy Reaction ALDACTONE (SPIRONOLACTONE) 05/10/2023 14 - Other: See Comments Comments: Hyperkalemia SEASONAL ALLERGIES 01/30/2017 3 - Cough Comments: Sneezing and watering eyes Date Reviewed: 05/17/2023 Reviewed by: Sanju Banerjee MD - Fully Assessed Reason for Visit: Results [95] Prescriptions as of 05/20/2023 - furosemide (LASIX) 40 mg tablet Take 1 tablet by mouth once daily. - sertraline (ZOLOFT) 25 mg tablet Take 1 tablet by mouth once daily. - dext 70/polycarbophil/peg/NaCl (ARTIFICIAL TEAR SOLUTION OPHTHALMIC) Use 1 Drop in eyes as needed. - sirolimus (RAPAMUNE) 0.5 mg tablet Take 1 tablet by mouth once daily. Pfizer PAP refill - dilTIAZem CD (CARDIZEM CD, CARTIA XT) 240 mg 24 hr capsule Take 1 capsule by mouth once daily. - sodium bicarbonate 650 mg tablet TAKE 1 TABLET BY MOUTH THREE TIMES DAILY - carvedilol (COREG) 25 mg tablet Take 1 tablet by mouth twice daily. - atorvastatin (LIPITOR) 40 mg tablet Take 1 tablet by mouth daily at bedtime. - Blood Pressure Monitor 1 Each twice daily. - acetaminophen (TYLENOL) 500 mg tablet Take 2 tablets by mouth every 6 hours as needed for pain. - magnesium/vitamin E/pyridoxine (VITAMIN B6-VITAMIN E-MAGNESIUM ORAL) Take 1 tablet by mouth once daily. - gabapentin (NEURONTIN) 100 mg capsule Take 100 mg by mouth once daily. - azelastine (ASTELIN) 0.1% nasal spray Use 2 Sprays in each nostril twice daily. - pyridoxine, vitamin B6, (VITAMIN B6) 100 mg tablet Take 1 tablet by mouth once daily. - aspirin 81 mg chewable tablet Take 1 tablet by mouth once daily. - Cholecalciferol, Vitamin D3, 5,000 unit tab Take 1 tablet by mouth once daily. Facility-Administered Medications as of 05/20/2023 - perflutren lipid microspheres 1.3 mL in NaCl (PF) 0.9% 10 mL injection (DEFINITY) - sodium chloride 0.9 % (flush) 10 mL (BD POSIFLUSH) Meds Comments as of 02/06/2013: Per pt no change in meds Problem List As Of Date 05/20/2023 Noted Resolved SUMMARY [V999.95] 01/13/2013 10/19/2019 Ascites [R18.8] 01/13/2013 10/19/2019 Hyperbilirubinemia [E80.6] 01/13/2013 History of encephalopathy [Z86.69] 02/06/2013 Duodenal ulcer [K26.9] 02/06/2013 10/25/2020 Osteopenia [M85.80] 11/26/2013 Liver transplant status (HCC) [Z94.4] 04/07/2014 Need for prophylactic immunotherapy [Z29.89] 04/07/2014 10/19/2019 History of alcohol abuse [F10.11] History of cirrhosis of liver [Z87.19] Arthritis [M19.90] Cataract of both eyes [H26.9] CRVO (central retinal vein occlusion) [H34.8192] Tributary (branch) retinal vein occlusion, left* Hypertensive retinopathy [H35.039] Amblyopia of left eye [H53.002] Well adult exam [Z00.00] 05/18/2014 10/19/2019 Essential hypertension [I10] 05/18/2014 Thrombocytopenia (HCC) [D69.6] 05/18/2014 10/19/2019 Vertigo [R42] 05/18/2014 Mixed hyperlipidemia [E78.2] 06/23/2014 Gastroesophageal reflux disease without esophag*08/24/2015 History of hemochromatosis [Z86.39] 08/24/2015 Prostate cancer screening [Z12.5] 02/22/2016 10/19/2019 Balance problem [R26.89] 06/19/2016 Elevated prostate specific antigen (PSA) [R97.2*10/19/2016 Type 2 diabetes mellitus with stage 3b chronic *10/23/2016 Proteinuria [R80.9] 10/21/2017 Chronic pain of both ankles [M25.571, G89.29, M*12/13/2017 Pain in left foot [M79.672] 02/20/2019 10/25/2020 Transaminitis [R74.01] 03/25/2019 03/27/2019 History of deep venous thrombosis (DVT) of dist*04/06/[address] [place] [address] [Z95.828] 04/06/2019 Hyperkalemia [E87.5] 04/24/2019 10/25/2020 Medication management [Z79.899] 05/18/2019 10/19/2019 CKD (chronic kidney disease) stage 4, GFR 15-29*06/19/2016 Secondary hyperparathyroidism of renal origin (*10/19/2019 History of stroke [Z86.73] 10/26/2019 Obesity, Class I, BMI 30-34.9 [E66.9] 10/27/2019 Lupus anticoagulant syndrome (HCC) [D68.62] 10/28/2019 Anemia of renal disease [N18.9, D63.1] 11/25/2019 Metabolic acidosis [E87.20] 11/25/2019 10/25/2020 Cirrhosis of liver (HCC) [K74.60] 10/25/2020 CKD (chronic kidney disease) stage 3, GFR 30-59*06/19/2016 10/25/2020 Hypertensive kidney disease with stage 4 chroni*05/18/2014 Liver transplanted (HCC) [Z94.4] 04/07/2014 10/25/2020 Retinal edema [H35.81] Thrombocytopenia (HCC) [D69.6] 05/18/2014 Bilateral leg edema [R60.0] 01/22/2020 Chronic lumbar pain [M (more content not included)... Normal [facility] CNPN Telephone (CARCMN) ISAIAS SANON ([id number]) 1945 M Date Time Provider Department 05/20/23 JONAH DAWSON CARCMN During your visit today, we recorded the following information about you: Lorri Amezcua 05/20/2023 2:50 PM Signed May 20, 2023 Patient Contact Number: [phone] Patient last seen within the last year: Yes Date of last office visit: 05/13/2023 Reason For Call: Patient would like to proceed with LHC Spouse called. Patient would like to proceed with LHC as discussed with Dacia Lima CNP. Patient informed that Dr. Dawson is out of of and message will be reviewed for follow up by our clinical team. Physician: Jonah Dawson MD Patient was informed that non-urgent calls may be returned within the next three business days. Yes Heather Castro APRN.WILFREDO 05/21/2023 11:02 AM Signed Called and spoke to Mrs. Sanon (Isaias's ) regarding the message below. Patient would like to proceed with diagnostic left heart catheterization in the setting of abnormal stress test as recommended JUSTINE by WILFREDO Blas and Dr. Dawson. Mr. Sanon is not having any new symptoms to date and remains clinically stable. He will be reaching out to both is Liver transplant team and kidney team to ensure they are aware of need for LHC. I discussed this situation with WILFREDO Blas over the telephone (as he is out of the office). We will plan to arrange LHC (most likely with biplane room and minimal contrast dye d/t CKD) when both him and Dr. Dawson are back in the office 05/28/2023. Relayed to patient that they will be hearing from us to schedule LHC next week. In the meantime, if any new symptoms to arise they will call back to report. Forwarding to both WILFREDO Blas and Dr. Dawson to review on their return back to office. Heather Nam APRN.WILFREDO May 21, 2023 11:01 AM Lorri Amezcua 05/30/2023 10:53 AM Signed Called patient and spoke to spouse to let her know that Mr Sanon has been scheduled for 06/05/[address] Dawson. They will receive a call on 06/04/23 with further instructions from a general labor nurse. Lorri Amezcua Adm May 30, 2023 Allergies As of Date: 05/20/2023 Noted Allergy Reaction ALDACTONE (SPIRONOLACTONE) 05/10/2023 14 - Other: See Comments Comments: Hyperkalemia SEASONAL ALLERGIES 01/30/2017 3 - Cough Comments: Sneezing and watering eyes Date Reviewed: 05/17/2023 Reviewed by: Sanju Banerjee MD - Fully Assessed Reason for Visit: Patient Update [1234] Prescriptions as of 05/30/2023 - acetaminophen (TYLENOL) 500 mg tablet Take 2 tablets by mouth every 6 hours as needed for pain. - aspirin 81 mg chewable tablet Take 1 tablet by mouth once daily. - atorvastatin (LIPITOR) 40 mg tablet Take 1 tablet by mouth daily at bedtime. - azelastine (ASTELIN) 0.1% nasal spray Use 2 Sprays in each nostril twice daily. - Blood Pressure Monitor 1 Each twice daily. - carvedilol (COREG) 25 mg tablet Take 1 tablet by mouth twice daily. - Cholecalciferol, Vitamin D3, 5,000 unit tab Take 1 tablet by mouth once daily. - dext 70/polycarbophil/peg/NaCl (ARTIFICIAL TEAR SOLUTION OPHTHALMIC) Use 1 Drop in eyes as needed. - dilTIAZem CD (CARDIZEM CD, CARTIA XT) 240 mg 24 hr capsule Take 1 capsule by mouth once daily. - furosemide (LASIX) 40 mg tablet Take 1 tablet by mouth once daily. - gabapentin (NEURONTIN) 100 mg capsule Take 100 mg by mouth once daily. - magnesium/vitamin E/pyridoxine (VITAMIN B6-VITAMIN E-MAGNESIUM ORAL) Take 1 tablet by mouth once daily. - pyridoxine, vitamin B6, (VITAMIN B6) 100 mg tablet Take 1 tablet by mouth once daily. - sertraline (ZOLOFT) 25 mg tablet Take 1 tablet by mouth once daily. - sirolimus (RAPAMUNE) 0.5 mg tablet Take 1 tablet by mouth once daily. Pfizer PAP refill - sodium bicarbonate 650 mg tablet TAKE 1 TABLET BY MOUTH THREE TIMES DAILY Facility-Administered Medications as of 05/30/2023 - perflutren lipid microspheres 1.3 mL in NaCl (PF) 0.9% 10 mL injection (DEFINITY) - sodium chloride 0.9 % (flush) 10 mL (BD POSIFLUSH) Meds Comments as of 02/06/2013: Per pt no change in meds Problem List As Of Date 05/20/2023 Noted Resolved SUMMARY [V999.95] 01/13/2013 10/19/2019 Ascites [R18.8] 01/13/2013 10/19/2019 Hyperbilirubinemia [E80.6] 01/13/2013 History of encephalopathy [Z86.69] 02/06/2013 Duodenal ulcer [K26.9] 02/06/2013 10/25/2020 Osteopenia [M85.80] 11/26/2013 Liver transplant status (HCC) [Z94.4] 04/07/2014 Need for prophylactic immunotherapy [Z29.89] 04/07/2014 10/19/2019 History of alcohol abuse [F10.11] History of cirrhosis of liver [Z87.19] Arthritis [M19.90] Cataract of both eyes [H26.9] CRVO (central retinal vein occlusion) [H34.8192] Tributary (branch) retinal vein occlusion, left* Hypertensive retinopathy [H35.039] Amblyopia of left eye [H (more content not included)... Normal [facility] Comprehensive metabolic 2000 panelon 05-20-2023 Albumin [Mass/Vol] 4.2 g/dL Normal 3.9-4.9 [facility] Comment on above: Order Comment: Speci men Type: BLOOD SPECIMEN Ordering Facility: [facility] Address: [address] [place] [address] Performed By: #### 2 4323-8, 2776-08, #### [facility] CLIA [id number] [address] [place] [address] [place] ALP [Catalytic activity/Vol] 89 U/L Normal 38-113 [facility] Comment on above: Order Comment: Speci men Type: BLOOD SPECIMEN Ordering Facility: [facility] Address: [address] [place] [address] Performed By: #### 2 4323-8, 2776-08, #### [facility] CLIA [id number] [address] [place] [address] [place] ALT [Catalytic activity/Vol] 48 U/L Normal 10-54 [facility] Comment on above: Order Comment: Speci men Type: BLOOD SPECIMEN Ordering Facility: [facility] Address: [address] [place] [address] Performed By: #### 2 4323-8, 2776-08, #### [facility] CLIA [id number] [address] [place] [address] [place] Anion gap [Moles/Vol] 14 mmol/L Normal 9-18 [facility] Comment on above: Order Comment: Speci men Type: BLOOD SPECIMEN Ordering Facility: [facility] Address: [address] [place] [address] Performed By: #### 2 4323-8, 2776-08, #### [facility] CLIA [id number] [address] [place], [place] [address] [place] AST [Catalytic activity/Vol] 27 U/L Normal 14-40 [facility] Comment on above: Order Comment: Speci men Type: BLOOD SPECIMEN Ordering Facility: [facility] Address: [address] [place] [address] Performed By: #### 2 4323-8, 2776-08, #### [facility] CLIA [id number] [address] [id number] [place] Bilirubin [Mass/Vol] 0.4 mg/dL Normal 0.2-1.3 [facility] Comment on above: Order Comment: Speci men Type: BLOOD SPECIMEN Ordering Facility: [facility] Address: [address] [place] [address] Performed By: #### 2 4323-8, 2776-08, #### [facility] CLIA [id number] [address] [place] [address] [place] Calcium [Mass/Vol] 10.0 mg/dL Normal 8.5-10.2 [facility] Comment on above: Order Comment: Speci men Type: BLOOD SPECIMEN Ordering Facility: [facility] Address: [address] [place] [address] Performed By: #### 2 4323-8, 2776-08, #### [facility] CLIA [id number] [address] [place] [address] [place] Chloride [Moles/Vol] 102 mmol/L Normal 97-105 [facility] Comment on above: Order Comment: Speci men Type: BLOOD SPECIMEN Ordering Facility: [facility] Address: [address] [place] [address] Performed By: #### 2 4323-8, 2776-08, #### [facility] CLIA [id number] [address] [address] [place] CO2 [Moles/Vol] 22 mmol/L Normal 22-30 [facility] Comment on above: Order Comment: Speci men Type: BLOOD SPECIMEN Ordering Facility: [facility] Address: [address] [place] [id number] Performed By: #### 2 4323-8, 2776-08, #### [facility] CLIA [id number] [address] [place] [address] [place] Creatinine [Mass/Vol] 3.61 mg/dL High 0.73-1.22 [facility] Comment on above: Order Comment: Deanna wren Type: BLOOD SPECIMEN Ordering Facility: [facility] Address: [address] [place] [address] Performed By: #### 2 4323-8, 2777-1, #### [facility] CLIA [id number] [address] [place] [address] [place] Creatinine and Glomerular filtration rate.predicted panel (S/P/Bld) 17 mL/min/1.73m??? Low >=60 [facility] Comment on above: Order Comment: Deanna wren Type: BLOOD SPECIMEN Ordering Facility: [facility] Address: [address] [place] [address] Result Comment: Kya mated Glomerular Filtration Rate (eGFR) is calculated using the 2020 CKD-EPI creatinine equation. This equation utilizes serum creatinine, sex, and age as parameters. The creatinine assay has traceable calibration to isotope dilution-mass spectrometry. Refer to KDIGO guidelines for clinical interpretation. In patients with unstable renal function, e.g. those with acute kidney injury, the eGFR may not accurately reflect actual GFR. Performed By: #### 2 4323-8, 2777, #### [facility] CLIA [id number] [address] [place] [address] [place] Glucose [Mass/Vol] 133 mg/dL High 74-99 [facility] Comment on above: Order Comment: Deanna wren Type: BLOOD SPECIMEN Ordering Facility: [facility] Address: [address] [place] [address] Result Comment: The [place] Diabetes Association (ADA) provides guidance for cutoff values for fasting glucose and random glucose. The ADA defines fasting as no caloric intake for at least 8 hours. Fasting plasma glucose results between 100 to 125 mg/dL indicate increased risk for diabetes (prediabetes). Fasting plasma glucose results greater than or equal to 126 mg/dL meet the criteria for diagnosis of diabetes. In the absence of unequivocal hyperglycemia, results should be confirmed by repeat testing. In a patient with classic symptoms of hyperglycemia or hyperglycemic crisis, random plasma glucose results greater than or equal to 200 mg/dL meet the criteria for diagnosis of diabetes. Reference: Standards of Medical Care in Diabetes 2016, [employer] Diabetes Association. Diabetes Care. 2016.39(Suppl 1). Performed By: #### 2 4323-8, 2776-08, #### [facility] CLIA [id number] [address] [place] [address] [place] Potassium [Moles/Vol] 4.6 mmol/L Normal 3.7-5.1 [facility] Comment on above: Order Comment: Deanna wren Type: BLOOD SPECIMEN Ordering Facility: [facility] Address: [address] [place] [address] Performed By: #### 2 4323-8, 2776-08, #### [facility] CLIA [id number] [facility] [place] [address] [place] Protein [Mass/Vol] 6.9 g/dL Normal 6.3-8.0 [facility] Comment on above: Order Comment: Deanna wren Type: BLOOD SPECIMEN Ordering Facility: [facility] Address: [address] [place] [address] Performed By: #### 2 4323-8, 2776-08, #### [facility] CLIA [id number] [address] [place] [address] [place] Sodium [Moles/Vol] 138 mmol/L Normal 136-144 [facility] Comment on above: Order Comment: Deanna wren Type: BLOOD SPECIMEN Ordering Facility: [facility] Address: [address] [place] [address] Performed By: #### 2 4323-8, 2776-08, #### [facility] CLIA [id number] [address] [place] [id number] [place] Urea nitrogen [Mass/Vol] 54 mg/dL High 9-24 [facility] Comment on above: Order Comment: Speci men Type: BLOOD SPECIMEN Ordering Facility: [facility] Address: [address] [place] [address] Performed By: #### 2 4323-8, 2777-, #### [facility] CLIA [id number] [address] [place] [address] [place] GGT SerPl-cCncon 05-20-2023 Gamma glutamyl transferase [Catalytic activity/Vol] 16 U/L Normal - [facility] Comment on above: Order Comment: Speci men Type: BLOOD SPECIMEN Ordering Facility: [facility] Address: [address] [place] [address] Performed By: #### 2 4323-8, 2777-, #### [facility] CLIA [id number] [address] [place] [address] [place] Gastrointestinal pathogens i dentified MAYTE+probe Nom (Stl)on 05-20-2023 Campylobacter sp DNA MAYTE+probe Nom (Unsp spec) Not detected Normal Not Detected [facility] Comment on above: Order Comment: Speci men Type: STOOL SPECIMEN Ordering Facility: [facility] Address: [address] [place] [address] Performed By: #### 7 9390-1 #### [facility] CLIA [id number] [address] [place] [address] [place] Salmonella sp DNA MAYTE+probe Ql (Unsp spec) Not detected Normal Not Detected [facility] Comment on above: Order Comment: Speci men Type: STOOL SPECIMEN Ordering Facility: [facility] Address: [address] [place] [address] Performed By: #### 7 9390-1 #### [facility] CLIA [id number] [facility] [place] [address] [place] Shiga toxin stx gene MAYTE+probe Nom (Unsp spec) Not detected Normal Not Detected [facility] Comment on above: Order Comment: Speci men Type: STOOL SPECIMEN Ordering Facility: [facility] Address: [address] [place] [address] Performed By: #### 7 9390-1 #### [facility] CLIA [id number] [address] [place] [address] [place] Shigella sp DNA MAYTE+probe Ql (Unsp spec) Not detected Normal Not Detected [facility] Comment on above: Order Comment: Speci men Type: STOOL SPECIMEN Ordering Facility: [facility] Address: [address] [place] [address] Performed By: #### 7 9390-1 #### [facility] CLIA [id number] [address] [place] [address] [place] Magnesium SerPl-mCncon 05-20 Magnesium [Mass/Vol] 2.3 mg/dL Normal 1.7-2.3 [facility] Comment on above: Order Comment: Speci men Type: BLOOD SPECIMEN Ordering Facility: [facility] Address: [address] [place] [address] Performed By: #### 2 4323-8, 2777, 21715-5 #### [facility] CLIA [id number] [address] [place] [address] [place] Phosphate SerPl-mCncon 05-20 Phosphate [Mass/Vol] 3.9 mg/dL Normal 2.7-4.8 [facility] Comment on above: Order Comment: Speci men Type: BLOOD SPECIMEN Ordering Facility: [facility] Address: [address] [place] [address] Performed By: #### 2 4323-8, 2777-, 76757-7 #### [facility] CLIA [id number] [address] [place] [address] [place] Sirolimus Bld-mCncon 023 Sirolimus (Bld) [Mass/Vol] 6.2 ng/mL Normal 4.0-12.0 [facility] Comment on above: Order Comment: Speci men Type: BLOOD SPECIMEN Ordering Facility: [facility] Address: [address] [place] [address] Result Comment: The optimal therapeutic range may vary based on the indication for treatment, transplant type, time post transplant, simultaneous use of other immunosuppressive drugs, and clinical or institutional protocols. It is recommended to interpret the results in conjunction with this information and the patient's clinical context. This test was developed and its performance characteristics determined by [facility]'s [facility] [place] [facility] It has not been cleared or approved by the FDA. -[facility] is regulated under CLIA as qualified to perform high-complexity testing. This test is used for clinical purposes. It should not be regarded as investigational or for research. Test performed by LC-MS/MS Performed By: #### 2 4323-8, 2777-1, 07018-9 #### [facility] CLIA [id number] [address] [place] [address] [place] FAT, FECAL QUALon 05-19-2023 FAT, FECAL - NEUTRAL Normal Normal Normal [facility] Comment on above: Order Comment: Speci men Type: BLOOD SPECIMEN Ordering Facility: [facility] Address: [address] [place] [address] Performed By: #### 2 4323-8, 2777-1, 22323-4 #### [facility] CLIA [id number] [address] [place] [address] [place] FAT, FECAL - SPLIT Normal Normal Normal [facility] Comment on above: Order Comment: Speci men Type: BLOOD SPECIMEN Ordering Facility: [facility] Address: [address] [place] [address] Result Comment: INTE RPRETIVE INFORMATION: Fecal Fat Qualitative Neutral fats include the monoglycerides, diglycerides, and triglycerides while split fats are the free fatty acids that are liberated from them. Impaired synthesis or secretion of pancreatic enzymes or bile may cause an increase in neutral fats while an increase in split fats suggests impaired absorption of nutrients. Performed By: [address] [address] Remote Computer Terminal Operator: Kip Johnson MD, PhD CLIA Number: [id number] Performed By: #### 2 4323-8, 2776-08, #### [facility] CLIA [id number] [address] [place] [address] [place] FECAL LACTOFERRIN/LEUKOCYTES on 05-19-2023 Lactoferrin IA Ql (Stl) Negative for lactoferrin, which may indicate the absence of fecal white blood cells Normal Negative [facility] Comment on above: Order Comment: Speci men Type: BLOOD SPECIMEN Ordering Facility: [facility] Address: [address] [place] [address] Performed By: #### 2 4323-8, 2776-08, #### [facility] CLIA [id number] [address] [place] [address] [place] G lamblia+Cryptosp Ag Stl Ql IAon 05-19-2023 G. lamblia+Cryptospori dium sp Ag IA Ql (Stl) CRYPTOSPORIDIUM ANTIGEN BY EIA: Negative for Cryptosporidium by EIA. GIARDIA ANTIGEN BY EIA: Negative for Giardia lamblia by EIA. Normal [facility] Comment on above: Performed By: #### 2 4323-8, 27702-16, #### [facility] CLIA [id number] [address] [place] [address] [place] CNOVon 05-17-2023 CNOV Office Visit (FAMPWS ) ISAIAS SANON ([id number]) 1945 M Date Time Provider Department 05/17/23 10:20 AM SANJU BANERJEE During your visit today, we recorded the following information about you: Pulse Respiration Blood pressure Weight 70/minute 18/minute 132/78 89.4 kg Sanju Banerjee MD 05/17/2023 1:14 PM Signed Chief Complaint Patient presents with: Follow Up: 2 week follow up CHF and Edema HPI Isaias Sanon is a 78 year old male who presents here today for 2 week follow up on CHF/edema. Any improvement with edema? Yes Patient was started on aldactone 25 mg daily. Patient was seen by Cardiovascular on 05/13/2023. They discussed his abnormal stress test and recommend a cath. Patient was not interested. He is concerned about the affects on his kidnies. Patient still getting ZULUAGA but much improved over how he was doing when he was last in the office. He has been taking the zoloft without any issues and feels he has been doing somewhat better. Patient's history from last visit on 05/02/2023. [facility]/2023 for CHF Patient's furosemide increased from 20 mg daily to 40 mg daily - updated. Patient has ECHO completed at hospital D/C instructions. - 8 cup fluid restrictions/2000 mg sodium diet. Has cut back on his daily fluid intake and he does not add fluid to anything. Swelling has improved. Still getting shortness of breath with ambulation but better than it was a week ago. No chest pain or pressure. No further swelling up into the groin or testicles. Per patient seems depressed. At times not very talkative and sitting and thinking. Has also noted easy agitation. Patient was seen on 04/26/2023 in our office Patient with known CKD stage 4, CAD, CHF. Patient has noted some increase shortness of breath and seems to have gotten worse recently. Patient with noted increased shortness of breath with ambulation per . noting he needs to stop and get his breath before walking again, even when just going to the bathroom from their bedroom. No orthopnea. No chest pain or heaviness. Has had a few US to make sure the right leg swelling was not a clot. Last one was 12/18/2022. Due to patient's change in status with walking and abnormal EKG EMS was contacted for transport to local ER. Patient was placed on O2 till released with EMS and was feeling better while it was on. Past medical history, appointments, medications, allergies reviewed. Previous Medical History PAST MEDICAL HISTORY Diagnosis Date Abdominal hernia without obstruction and without gangrene 06/19/2016 Advance directive discussed with patient 06/06/2022 Discussed 05/2022 Amblyopia of left eye Anemia of renal disease 11/25/2019 Arthritis Ascites 01/13/2013 Patient denies known history of SBP. Denies current abdominal tenderness, and no large volume ascites with need for paracentesis 02/06/2013. Plan: - ? Diuretics - will D/W nephrology Balance problem 06/19/2016 Bilateral leg edema 01/22/2020 BRVO (branch retinal vein occlusion) OS Cataract of both eyes Central retinal vein occlusion with macular edema of right eye Chronic lumbar pain 06/16/2020 Chronic pain of both ankles 12/13/2017 CKD (chronic kidney disease) stage 3, GFR 30-59 ml/min ([facility]) 06/19/[address] Vipul Perez [facility] CKD (chronic kidney disease) stage 4, GFR 15-29 ml/min ([facility]) 06/19/[address] 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 Plan: Continue pantoprazole 40mg qday. Elevated prostate specific antigen (PSA) 10/19/2016 Normal 10/2017 with free PSA at 44% Essential hypertension 05/18/2014 11/08/2014: Home BP Cuff Validated. Home BP: 167/94 pulse 79. Office BP: 157/91 pulse 76. Gastroesophageal reflux disease without esophagitis 08/24/2015 GIB (gastrointestinal bleeding) 01/13/2013 Patient presents with three episodes of BRBPR onset around 2pm 02/06/2013. He endorses a history of BRBPR during an admission at [facility] in December 2012 for which he states no workup or colonoscopy was performed. During his last admission at [facility] he endorses having passed old blood , and underwent EGD 01/31/13 showing a small polyp/hypertrophied fold at the cardia, severe portal hypertensive gastropathy in the entire stomach, and multiple superficial duodenal ulcers. EGD EUS performed 02/03/13 showed several portal hyper (more content not included)... Normal [facility] CARDIAC PERF STRESS/PHARM on 05-13-2023 [facility] PROTEIN CREATININE RATIOon 0 01-01-2023 Protein/Creatinine (U) [Mass ratio] 1.82 mg/mg High <0.15 mg/mg [facility] Protein/Creatinine (U) [Mass ratio]on 01-01-2023 Creatinine (U) [Mass/Vol] 121.2 mg/dL 20.0 - 300.0 mg/dL [facility] Protein (U) [Mass/Vol] 221 mg/dL High 0 - 20 mg/dL [facility] Basic metabolic 2000 panelon 12-06-2022 Anion gap [Moles/Vol] 12 mmol/L 9 - 18 mmol/L [facility] Calcium [Mass/Vol] 9.8 mg/dL 8.5 - 10. 2 mg/dL [facility] Chloride [Moles/Vol] 106 mmol/L High 97 - 105 mmol/L [facility] CO2 [Moles/Vol] 23 mmol/L 22 - 30 mmol/L [facility] Creatinine [Mass/Vol] 3.59 mg/dL High 0.73 - 1.22 mg/dL [facility] Estimated Glomerular Filtration Rate 17 mL/min/1.73m Low >=60 mL/min/1.73m [facility] Glucose [Mass/Vol] 201 mg/dL High 74 - 99 mg/dL [facility] Potassium [Moles/Vol] 5.1 mmol/L 3.7 - 5.1 mmol/L [facility] Sodium [Moles/Vol] 141 mmol/L 136 - 144 mmol/L [facility] Urea nitrogen [Mass/Vol] 46 mg/dL High 9 - 24 mg/dL [facility] HbA1c (Bld)on 12-06-2022 Average glucose Estimated from glycated hemoglobin (Bld) [Mass/Vol] 134 mg/dL [facility] HbA1c (Bld) [Mass fraction] 6.3 % High 4.3 - 5.6 % [facility] URINALYSIS, REFLEX MICROSCOP ICon 07-09-2022 Bilirubin Ql (U) Negative Negative [facility] Clarity (Unsp spec) Clear Clear [facility] Color (U) Light Yellow Yellow [facility] Epithelial cells LM.HPF (Urine sed) [#/Area] Few [facility] Glucose Test strip (U) [Mass/Vol] 1+ Abnormal Negative [facility] Hemoglobin Ql (U) Trace Abnormal Negative [facility] Hyaline casts (Urine sed) [#/Area] 4-10 /LPF Abnormal 0 /LPF [facility] Ketones Ql (U) Negative Negative [facility] Leukocyte esterase Test strip Ql (U) Negative Negative [facility] Nitrite Ql (U) Negative Negative [facility] pH (U) 6.0 [pH] 5.0 - 8.0 [facility] Protein (U) [Mass/Vol] 2+ Abnormal Negative [facility] RBC LM.HPF (Urine sed) [#/Area] 0-3 /HPF 0-3 /HPF [facility] Specific gravity (U) [Rel density] 1.011 1.005 - 1.030 [facility] Urobilinogen Ql (U) Negative Negative [facility] WBC LM.HPF (Urine sed) [#/Area] 0-5 /HPF 0-5 /HPF [facility] [place] CARDIAC PERF STRESS/PHARM on 11-15-2021 [facility] XR Chest PA and Lateralon IMPRESSION: Stable mild reticular opacities at the right base. Mental Telepathist: PSCB Transcribe Date/Time: Jul 03 2021 2:26P Dictated by : LUCA PÉREZ MD This examination was interpreted and the report reviewed and electronically signed by: LUCA PÉREZ MD on Jul 03 2021 2:27PM [facility] DIVISION OF RADIOLOGY * * *Final Report* * * DATE OF EXAM: Jul 03 2021 2:22PM WOX [id number] - XR CHEST 2V FRONTAL/LAT / PROCEDURE REASON: Bacterial pneumonia * * * * Physician Interpretation * * * * EXAMINATION: CHEST RADIOGRAPH (2 VIEW FRONTAL & LATERAL) CLINICAL HISTORY: Bacterial pneumonia MQ: XC2_6 EXAM DATE/TIME: 07/03/2021 2:22 PM COMPARISON: Chest x-ray dated June 17, 2021 RESULT: Lines, tubes, and devices: None. Lungs and pleura: Persistent mild reticular opacities at the right base. No pleural effusion or pneumothorax. Cardiomediastinal silhouette: Stable cardiomediastinal silhouette. Bones and soft tissues: Surgical clips in the upper abdomen. Degenerative changes in the spine. DIVISION OF RADIOLOGY Provider, Yovanny John [facility] - 07/03/2021 * * *Final Report* * * DATE OF EXAM: Jul 03 2021 2:22PM WOX 5291 - XR CHEST 2V FRONTAL/LAT / PROCEDURE REASON: Bacterial pneumonia * * * * Physician Interpretation * * * * EXAMINATION: CHEST RADIOGRAPH (2 VIEW FRONTAL & LATERAL) CLINICAL HISTORY: Bacterial pneumonia MQ: XC2_6 EXAM DATE/TIME: 07/03/2021 2:22 PM COMPARISON: Chest x-ray dated June 17, 2021 RESULT: Lines, tubes, and devices: None. Lungs and pleura: Persistent mild reticular opacities at the right base. No pleural effusion or pneumothorax. Cardiomediastinal silhouette: Stable cardiomediastinal silhouette. Bones and soft tissues: Surgical clips in the upper abdomen. Degenerative changes in the spine. IMPRESSION IMPRESSION: Stable mild reticular opacities at the right base. Mental Telepathist: RADHA Transcribe Date/Time: Jul 03 2021 2:26P Dictated by : LUCA PÉREZ MD This examination was interpreted and the report reviewed and electronically signed by: LUCA PÉREZ MD on Jul 03 2021 2:27PM EST [facility] Radiology Study observation (narrative) [facility] XR Chest PA and LateralOrder ed By: [facility] Provider on 07-03-2021 [facility] XR Chest PA and Lateralon IMPRESSION: Suspect right middle lobe and right lower lobe pneumonia [facility]path[facility] Transcribe Date/Time: Jun 17 2021 9:22P Dictated by : MARIANO PENNINGTON MD This examination was interpreted and the report reviewed and electronically signed by: MARIANO PENNINGTON MD on Jun 17 2021 9:24PM [facility] DIVISION OF RADIOLOGY * * *Final Report* * * DATE OF EXAM: Jun 17 2021 10:56AM WOX 5291 - XR CHEST 2V FRONTAL/LAT / PROCEDURE REASON: multiple diagnoses * * * * Physician Interpretation * * * * EXAMINATION: CHEST RADIOGRAPH (2 VIEW FRONTAL & LATERAL) CLINICAL HISTORY: ZULUAGA (dyspnea on exertion). Orthopnea MQ: XC2_6 EXAM DATE/TIME: 06/17/2021 10:56 AM COMPARISON: No relevant prior studies available. RESULT: Lines, tubes, and devices: None. Lungs and pleura: Chronic interstitial lung changes with lingular and bibasilar fibrotic scarring is stable. Prominent right infrahilar and cardiophrenic angle airspace opacity and right basilar posterior opacity on the lateral view raises possibility of right middle lobe and lower lobe pneumonia with atelectasis. No apparent layering pleural fluid. There is no vascular redistribution to suggest pulmonary edema. Cardiomediastinal silhouette: The cardiac, mediastinal and hilar shadows are unchanged with enlarged cardiac silhouette Other: The bony structures are intact DIVISION OF RADIOLOGY Provider, [facility] - 06/17/2021 * * *Final Report* * * DATE OF EXAM: Jun 17 2021 10:56AM WOX 5291 - XR CHEST 2V FRONTAL/LAT / PROCEDURE REASON: multiple diagnoses * * * * Physician Interpretation * * * * EXAMINATION: CHEST RADIOGRAPH (2 VIEW FRONTAL & LATERAL) CLINICAL HISTORY: ZULUAGA (dyspnea on exertion). Orthopnea MQ: XC2_6 EXAM DATE/TIME: 06/17/2021 10:56 AM COMPARISON: No relevant prior studies available. RESULT: Lines, tubes, and devices: None. Lungs and pleura: Chronic interstitial lung changes with lingular and bibasilar fibrotic scarring is stable. Prominent right infrahilar and cardiophrenic angle airspace opacity and right basilar posterior opacity on the lateral view raises possibility of right middle lobe and lower lobe pneumonia with atelectasis. No apparent layering pleural fluid. There is no vascular redistribution to suggest pulmonary edema. Cardiomediastinal silhouette: The cardiac, mediastinal and hilar shadows are unchanged with enlarged cardiac silhouette Other: The bony structures are intact IMPRESSION IMPRESSION: Suspect right middle lobe and right lower lobe pneumonia Mental Telepathist: RADHA Transcribe Date/Time: Jun 17 2021 9:22P Dictated by : MARIANO PENNINGTON MD This examination was interpreted and the report reviewed and electronically signed by: MARIANO PENNINGTON MD on Jun 17 2021 9:24PM EST [facility] Radiology Study observation (narrative) [facility] XR Chest PA and LateralOrder ed By: [facility] Provider on 06-17-2021 [facility] Francesca 12-[birth year]2019 CNPN Telephone (MMPRAD) ISAIAS SANON ( ) 1945 M TRN Date Time Provider Department 12/29/19 CRESENCIO LAZO MMPRAD During your visit today, we recorded the following information about you: Allergies As of Date: 12/29/2019 Noted Allergy Reaction SEASONAL ALLERGIES 01/30/2017 3 - Cough Comments: Sneezing and watering eyes Date Reviewed: 12/29/2019 Reviewed by: Cresencio Lazo - Fully Assessed Reason for Visit: Results [95] Primary Visit Diagnosis:NASIR (acute kidney injury) (HCC) [N17.9] Other Visit Diagnosis:Anemia, unspecified type [D64.9] Order(s):MONOCLONAL PROT UR W/INTERP [SQURMPA] Order #: [id number] MONOCLONAL PROTEIN, SERUM (BLOOD) [SQSERMPA] Order #: [id number] FUTURE PROTEIN ELECT RND UR W/INTERP [SQUEPG] Order #: [id number] PROTEIN ELECTROPHORESIS W/INTERP [SQSEPG] Order #: [id number] PROTEIN CREATININE RATIO [SQPRATIO] Order #: [id number] FUTURE UA CHEMSTRIP ONLY [SQUA] Order #: [id number] FUTURE RENAL FUNCTION PANEL [SQRFP] Order #: [id number] FUTURE CBC + DIFF [SQCBCDIF] Order #: [id number] FUTURE Prescriptions as of 12/29/2019 Sig: LISINOPRIL 2.5 MG TABLET 4 tablets by ORAL/FEEDING TUB* SODIUM BICARBONATE 650 MG TAB* Take 1 tablet by mouth twice * ASPIRIN 81 MG CHEWABLE TABLET Take 1 tablet by mouth once d* BLOOD PRESSURE MONITOR KIT 1 Each twice daily. CARVEDILOL 25 MG TABLET 1 tablet by ORAL/FEEDING TUBE* ATORVASTATIN 40 MG TABLET Take 1 tablet by mouth daily * DILTIAZEM SR 240 MG 24 HR CAP Take 1 capsule by mouth once * SULFAMETHOXAZOLE 800 MG-TRIME* Take 1 tablet by mouth every * COMPOUNDED PRESCRIPTION Knee High Compression Stockin* SIROLIMUS 1 MG TABLET Take 1 tablet by mouth once d* CHOLECALCIFEROL (VITAMIN D3) * Take 1 tablet by mouth once d* CETIRIZINE 10 MG TABLET Take 10 mg by mouth once ruba* ACETAMINOPHEN 500 MG TABLET Take 1 tablet by mouth every * Problem List As Of Date 12/29/2019 Noted Resolved SUMMARY [V999.95] 01/13/2013 10/19/2019 More... More... Ascites [R18.8] 01/13/2013 10/19/2019 More... More... Hyperbilirubinemia [E80.6] 01/13/2013 More... History of encephalopathy [Z86.69] 02/06/2013 More... Duodenal ulcer [K26.9] 02/06/2013 More... More... Osteopenia [M85.80] 11/26/2013 Liver transplant status (HCC) [Z94.4] 04/07/2014 More... Need for prophylactic immunotherapy [Z29.8] 04/07/2014 10/19/2019 Incisional hernia [K43.2] 04/07/2014 Alcohol abuse [F10.10] More... More... History of cirrhosis of liver [Z87.19] More... Arthritis [M19.90] Cataract of both eyes [H26.9] CRVO (central retinal vein occlusion) [H34.8192] More... BRVO (branch retinal vein occlusion) [H34.8392] More... Hypertensive retinopathy [H35.039] More... Amblyopia of left eye [H53.002] Well adult exam [Z00.00] 05/18/2014 10/19/2019 More... Essential (primary) hypertension [I10] 05/18/2014 More... Thrombocytopenia (HCC) [D69.6] 05/18/2014 10/19/2019 More... Vertigo [R42] 05/18/2014 More... Mixed hyperlipidemia [E78.2] 06/23/2014 More... Gastroesophageal reflux disease without esophag*08/24/2015 More... History of hemochromatosis [Z86.39] 08/24/2015 More... Prostate cancer screening [Z12.5] 02/22/2016 10/19/2019 More... Balance problem [R26.89] 06/19/2016 More... Abdominal hernia without obstruction and withou*06/19/2016 More... Elevated prostate specific antigen (PSA) [R97.2*10/19/2016 More... Controlled type 2 diabetes mellitus with stage *10/23/2016 More... Proteinuria [R80.9] 10/21/2017 More... Chronic pain of both ankles [M25.571, G89.29, M*12/13/2017 Anemia [D64.9] 10/20/2018 More... Pain in left foot [M79.672] 02/20/2019 More... More... More... Transaminitis [R74.0] 03/25/2019 03/27/2019 History of deep venous thrombosis (DVT) of dist*04/06/2019 More... [place] filter in place [Z95.828] 04/06/2019 More... Hyperkalemia [E87.5] 04/24/2019 More... Medication management [Z79.899] 05/18/2019 10/19/2019 CKD (chronic kidney disease) [N18.9] 06/19/2016 More... Secondary hyperparathyroidism of renal origin (*10/19/2019 More... ICH (intracerebral hemorrhage) (HCC) [I61.9] 10/26/2019 Obesity, Class I, BMI 30-34.9 [E66.9] 10/27/2019 More... Lupus anticoagulant syndrome (HCC) [D68.62] 10/28/2019 More... Right sided weakness [R53.1] 11/04/2019 Slurred speech [R47.81] 11/04/2019 Anemia of renal disease [N18.9, D63.1] 11/25/2019 Metabolic acidosis [E87.2] 11/25/2019 Encounter Status:Closed by CRESENCIO LAZO MD on 12/29/19 [facility] No Panel Information [facility] Vital Signs Date Time Vital Sign Value Performing Clinician Maty villagomez 04-03-2024 10:43-0400 Body mass index (BMI) [Ratio] 25.69 kg/m2 Sanju Banerjee MD Work Phone: [facility] 04-03-2024 10:43-0400 Body weight 74.39 kg Sanju Banerjee MD Work Phone: [facility] 04-03-2024 10:43-0400 Diastolic blood pressure 74 mm[Hg] Sanju Banerjee MD Work Phone: [facility] 04-03-2024 10:43-0400 Heart rate 60 /min Sanju Banerjee MD Work Phone: [facility] 04-03-2024 10:43-0400 Respiratory rate 16 /min Sanju Banerjee MD Work Phone: [facility] 04-03-2024 10:43-0400 Systolic blood pressure 118 mm[Hg] Sanju Banerjee MD Work Phone: [facility] 01-16-2024 10:58-0400 Body height 170.2 cm Noamn Fontenot MD Work Phone: [facility] 01-16-2024 10:58-0400 Body mass index (BMI) [Ratio] 27.41 kg/m2 Noman Fontenot MD Work Phone: [facility] 01-16-2024 10:58-0400 Body weight 79.38 kg Noman Fontenot MD Work Phone: [facility] 01-16-2024 10:58-0400 Diastolic blood pressure 55 mm[Hg] Noman Fontenot MD Work Phone: [facility] 01-16-2024 10:58-0400 Heart rate 76 /min Noman Fontenot MD Work Phone: [facility] 01-16-2024 10:58-0400 Systolic blood pressure 96 mm[Hg] Nmoan Fontenot MD Work Phone: [facility] 01-10-2024 11:06-0400 Body mass index (BMI) [Ratio] 28.04 kg/m2 Sanju Banerjee MD Work Phone: [facility] 01-10-2024 11:06-0400 Body temperature 98.1 [degF] Sanju Banerjee MD Work Phone: [facility] 01-10-2024 11:06-0400 Body weight 81.19 kg Sanju Banerjee MD Work Phone: [facility] 01-10-2024 11:06-0400 Diastolic blood pressure 68 mm[Hg] Sanju Banerjee MD Work Phone: [facility] 01-10-2024 11:06-0400 Heart rate 70 /min Sanju Banerjee MD Work Phone: [facility] 01-10-2024 11:06-0400 Respiratory rate 18 /min Sanju Banerjee MD Work Phone: [facility] 01-10-2024 11:06-0400 Systolic blood pressure 120 mm[Hg] Sanju Banerjee MD Work Phone: [facility] 12-20-2023 11:08-0400 Body mass index (BMI) [Ratio] 28.35 kg/m2 Sanju Banerjee MD Work Phone: [facility] 12-20-2023 11:08-0400 Body weight 82.1 kg Sanju Banerjee MD Work Phone: [facility] 12-20-2023 11:08-0400 Diastolic blood pressure 64 mm[Hg] Sanju Banerjee MD Work Phone: [facility] 12-20-2023 11:08-0400 Heart rate 76 /min Sanju Banerjee MD Work Phone: [facility] 12-20-2023 11:08-0400 Respiratory rate 16 /min Sanju Banerjee MD Work Phone: [facility] 12-20-2023 11:08-0400 Systolic blood pressure 138 mm[Hg] Sanju Banerjee MD Work Phone: [facility] 11-26-2023 09:55-0400 Body height 170.2 cm Bradly Price PA-C Work Phone: [facility] 11-26-2023 09:55-0400 Body temperature 98.01 [degF] Bradly Price PA-C Work Phone: [facility] 11-26-2023 09:55-0400 Body weight 79.38 kg Bradly Price PA-C Work Phone: [facility] 11-26-2023 09:55-0400 Diastolic blood pressure 58 mm[Hg] Bradly Price PA-C Work Phone: [facility] 11-26-2023 09:55-0400 Heart rate 76 /min Bradly Price PA-C Work Phone: [facility] 11-26-2023 09:55-0400 Respiratory rate 12 /min Bradly Price PA-C Work Phone: [facility] 11-26-2023 09:55-0400 SaO2% (BldA) [Mass fraction] 96 % Bradly Price PA-C Work Phone: [facility] 11-26-2023 09:55-0400 Systolic blood pressure 108 mm[Hg] Bradly Price PA-C Work Phone: [facility] 11-04-2023 11:29-0400 Body temperature 97.11 [degF] Sanju Banerjee MD Work Phone: [facility] 11-04-2023 11:29-0400 Body weight 83.92 kg Sanju Banerjee MD Work Phone: [facility] 11-04-2023 11:29-0400 Diastolic blood pressure 72 mm[Hg] Sanju Banerjee MD Work Phone: [facility] 11-04-2023 11:29-0400 Heart rate 72 /min Sanju Banerjee MD Work Phone: [facility] 11-04-2023 11:29-0400 Respiratory rate 18 /min Sanju Banerjee MD Work Phone: [facility] 11-04-2023 11:29-0400 SaO2% (BldA) [Mass fraction] 96 % Sanju Banerjee MD Work Phone: [facility] 11-04-2023 11:29-0400 Systolic blood pressure 122 mm[Hg] Sanju Banerjee MD Work Phone: [facility] 10-26-2023 10:07-0500 Diastolic blood pressure 48 mm[Hg] Sanju Banerjee MD Work Phone: [facility] 10-26-2023 10:07-0500 Systolic blood pressure 94 mm[Hg] Sanju Banerjee MD Work Phone: [facility] 10-26-2023 09:38-0500 Body temperature 97.7 [degF] Sanju Banerjee MD Work Phone: [facility] 10-26-2023 09:38-0500 Body weight 84.37 kg Sanju Banerjee MD Work Phone: [facility] 10-26-2023 09:38-0500 Heart rate 77 /min Sanju Banerjee MD Work Phone: [facility] 10-26-2023 09:38-0500 Respiratory rate 16 /min Sanju Banerjee MD Work Phone: [facility] 07-25-2023 10:29-0500 Body weight 88.45 kg Ginette Dee APRN.DIRECTOR SOFTWARE QUALITY ASSURANCE Work Phone: [facility] 07-25-2023 10:29-0500 Diastolic blood pressure 71 mm[Hg] Ginette Dee APRN.DIRECTOR SOFTWARE QUALITY ASSURANCE Work Phone: [facility] 07-25-2023 10:29-0500 Heart rate 70 /min Ginette Dee APRN.DIRECTOR SOFTWARE QUALITY ASSURANCE Work Phone: [facility] 07-25-2023 10:29-0500 Respiratory rate 14 /min Ginette Dee PLASTIC FINISHER.DIRECTOR SOFTWARE QUALITY ASSURANCE Work Phone: [facility] 07-25-2023 10:29-0500 SaO2% (BldA) [Mass fraction] 96 % Ginette Dee PLASTIC FINISHER.DIRECTOR SOFTWARE QUALITY ASSURANCE Work Phone: [facility] 07-25-2023 10:29-0500 Systolic blood pressure 152 mm[Hg] Ginette Dee PLASTIC FINISHER.DIRECTOR SOFTWARE QUALITY ASSURANCE Work Phone: [facility] 07-24-2023 09:16-0500 Body height 170.2 cm Vito Beauchamp PLASTIC FINISHER.DIRECTOR SOFTWARE QUALITY ASSURANCE Work Phone: [facility] 07-24-2023 09:16-0500 Body temperature 97.81 [degF] Vito Beauchamp PLASTIC FINISHER.DIRECTOR SOFTWARE QUALITY ASSURANCE Work Phone: [facility] 07-24-2023 09:16-0500 Body weight 88.5 kg Vito Beauchamp PLASTIC FINISHER.DIRECTOR SOFTWARE QUALITY ASSURANCE Work Phone: [facility] 07-24-2023 09:16-0500 Diastolic blood pressure 72 mm[Hg] Vito Beauchamp PLASTIC FINISHER.DIRECTOR SOFTWARE QUALITY ASSURANCE Work Phone: [facility] 07-24-2023 09:16-0500 Heart rate 65 /min Vito Beauchamp PLASTIC FINISHER.DIRECTOR SOFTWARE QUALITY ASSURANCE Work Phone: [facility] 07-24-2023 09:16-0500 Respiratory rate 14 /min Vito Beauchamp PLASTIC FINISHER.DIRECTOR SOFTWARE QUALITY ASSURANCE Work Phone: [facility] 07-24-2023 09:16-0500 SaO2% (BldA) [Mass fraction] 96 % Vito Beauchamp PLASTIC FINISHER.DIRECTOR SOFTWARE QUALITY ASSURANCE Work Phone: [facility] 07-24-2023 09:16-0500 Systolic blood pressure 151 mm[Hg] Vito Beauchamp PLASTIC FINISHER.DIRECTOR SOFTWARE QUALITY ASSURANCE Work Phone: [facility] 07-17-2023 19:06-0500 Body weight 90.72 kg Sanju Banerjee MD Work Phone: [facility] 07-17-2023 19:06-0500 Diastolic blood pressure 60 mm[Hg] Sanju Banerjee MD Work Phone: [facility] 07-17-2023 19:06-0500 Heart rate 64 /min Sanju Banerjee MD Work Phone: [facility] 07-17-2023 19:06-0500 Respiratory rate 16 /min Sanju Banerjee MD Work Phone: [facility] 07-17-2023 19:06-0500 Systolic blood pressure 128 mm[Hg] Sanju Banerjee MD Work Phone: [facility] 07-08-2023 15:22-0500 Body height 170.2 cm Noman Fontenot MD Work Phone: [facility] 07-08-2023 15:22-0500 Body temperature 97.39 [degF] Noman Fontenot MD Work Phone: [facility] 07-08-2023 15:22-0500 Body weight 91.17 kg Noman Fontenot MD Work Phone: [facility] 07-08-2023 15:22-0500 Diastolic blood pressure 69 mm[Hg] Noman Fontenot MD Work Phone: [facility] 07-08-2023 15:22-0500 Heart rate 55 /min Noman Fontenot MD Work Phone: [facility] 07-08-2023 15:22-0500 Systolic blood pressure 173 mm[Hg] Noman Fontenot MD Work Phone: [facility] 05-17-2023 11:21-0400 Diastolic blood pressure 78 mm[Hg] Sanju Banerjee MD Work Phone: [facility] 05-17-2023 11:21-0400 Systolic blood pressure 132 mm[Hg] Sanju Banerjee MD Work Phone: [facility] 05-17-2023 10:58-0400 Body weight 89.36 kg Sanju Banerjee MD Work Phone: [facility] 05-17-2023 10:58-0400 Heart rate 70 /min Sanju Banerjee MD Work Phone: [facility] 05-17-2023 10:58-0400 Respiratory rate 18 /min Sanju Banerjee MD Work Phone: [facility] 05-13-2023 12:15-0400 Body weight 88.45 kg NA Lima PLASTIC FINISHER.DIRECTOR SOFTWARE QUALITY ASSURANCE Work Phone: [facility] 05-13-2023 12:15-0400 Diastolic blood pressure 73 mm[Hg] NA Lima PLASTIC FINISHER.DIRECTOR SOFTWARE QUALITY ASSURANCE Work Phone: [facility] 05-13-2023 12:15-0400 Heart rate 69 /min NA Lima PLASTIC FINISHER.DIRECTOR SOFTWARE QUALITY ASSURANCE Work Phone: [facility] 05-13-2023 12:15-0400 Respiratory rate 18 /min NA Lima PLASTIC FINISHER.DIRECTOR SOFTWARE QUALITY ASSURANCE Work Phone: [facility] 05-13-2023 12:15-0400 SaO2% (BldA) [Mass fraction] 98 % NA Lima PLASTIC FINISHER.DIRECTOR SOFTWARE QUALITY ASSURANCE Work Phone: [facility] 05-13-2023 12:15-0400 Systolic blood pressure 138 mm[Hg] NA Lima PLASTIC FINISHER.DIRECTOR SOFTWARE QUALITY ASSURANCE Work Phone: [facility] 04-26-2023 11:02-0400 Body weight 100.25 kg Sanju Banerjee MD Work Phone: [facility] 04-26-2023 11:02-0400 Diastolic blood pressure 68 mm[Hg] Sanju Banerjee MD Work Phone: [facility] 04-26-2023 11:02-0400 Heart rate 61 /min Sanju Banerjee MD Work Phone: [facility] 04-26-2023 11:02-0400 Respiratory rate 14 /min Sanju Banerjee MD Work Phone: [facility] 04-26-2023 11:02-0400 SaO2% (BldA) [Mass fraction] 98 % Sanju Banerjee MD Work Phone: [facility] 04-26-2023 11:02-0400 Systolic blood pressure 124 mm[Hg] Sanju Banerjee MD Work Phone: [facility] 02-25-2023 08:39-0400 Diastolic blood pressure 63 mm[Hg] Jonah Dawson MD Work Phone: [facility] 02-25-2023 08:39-0400 Heart rate 61 /min Jonah Dawson MD Work Phone: [facility] 02-25-2023 08:39-0400 Systolic blood pressure 162 mm[Hg] Jonah Dawson MD Work Phone: [facility] 02-25-2023 08:37-0400 Body height 170.2 cm Jonah Dawson MD Work Phone: [facility] 02-25-2023 08:37-0400 Body weight 93.03 kg Jonah Dawson MD Work Phone: [facility] 02-25-2023 08:37-0400 SaO2% (BldA) [Mass fraction] 99 % Jonah Dawson MD Work Phone: [facility] 12-31-2022 14:39-0400 Body height 170.2 cm Noman Fontenot MD Work Phone: [facility] 12-31-2022 14:39-0400 Body weight 95.25 kg Noman Fontenot MD Work Phone: [facility] 12-31-2022 14:39-0400 Diastolic blood pressure 73 mm[Hg] Noman Fontenot MD Work Phone: [facility] 12-31-2022 14:39-0400 Heart rate 57 /min Noman Fontenot MD Work Phone: [facility] 12-31-2022 14:39-0400 Systolic blood pressure 173 mm[Hg] Noman Fontenot MD Work Phone: [facility] 12-06-2022 09:09-0400 Body temperature 97.11 [degF] Claudia Roberts PA-C Work Phone: [facility] 12-06-2022 09:09-0400 Body weight 93.89 kg Claudia Roberts PA-C Work Phone: [facility] 12-06-2022 09:09-0400 Diastolic blood pressure 66 mm[Hg] Claudia Roberts PA-C Work Phone: [facility] 12-06-2022 09:09-0400 Heart rate 58 /min Claudia Roberts PA-C Work Phone: [facility] 12-06-2022 09:09-0400 Respiratory rate 18 /min Claudia Roberts PA-C Work Phone: [facility] 12-06-2022 09:09-0400 Systolic blood pressure 136 mm[Hg] Claudia Roberts PA-C Work Phone: [facility] 07-09-2022 13:51-0500 Body height 170.2 cm Noman Fontenot MD Work Phone: [facility] 07-09-2022 13:51-0500 Body weight 87.54 kg Noman Fontenot MD Work Phone: [facility] 07-09-2022 13:51-0500 Diastolic blood pressure 71 mm[Hg] Noman Fontenot MD Work Phone: [facility] 07-09-2022 13:51-0500 Heart rate 53 /min Noman Fontenot MD Work Phone: [facility] 07-09-2022 13:51-0500 Systolic blood pressure 151 mm[Hg] Noman Fontenot MD Work Phone: [facility] 06-25-2022 08:16-0500 Body temperature 97.7 [degF] Claudia Roberts PA-C Work Phone: [facility] 06-25-2022 08:16-0500 Body weight 86.64 kg Claudia Roberts PA-C Work Phone: [facility] 06-25-2022 08:16-0500 Diastolic blood pressure 70 mm[Hg] Claudia Roberts PA-C Work Phone: [facility] 06-25-2022 08:16-0500 Heart rate 60 /min Claudia CALLOWAYC Work Phone: [facility] 06-25-2022 08:16-0500 Respiratory rate 16 /min Claudia PAK-C Work Phone: [facility] 06-25-2022 08:16-0500 Systolic blood pressure 122 mm[Hg] Claudia PAK-Robbie Work Phone: [facility] 06-06-2022 14:33-0400 Diastolic blood pressure 80 mm[Hg] Sanju Banerjee MD Work Phone: [facility] 06-06-2022 14:33-0400 Systolic blood pressure 160 mm[Hg] Sanju Banerjee MD Work Phone: [facility] 06-06-2022 13:06-0400 Body height 170.8 cm Sanju Banerjee MD Work Phone: [facility] 06-06-2022 13:06-0400 Body weight 86.64 kg Sanju Banerjee MD Work Phone: [facility] 06-06-2022 13:06-0400 Heart rate 58 /min Sanju Banerjee MD Work Phone: [facility] 06-06-2022 13:06-0400 Respiratory rate 16 /min Sanju Banerjee MD Work Phone: [facility] 01-23-2022 09:08-0400 Body temperature 98.01 [degF] José Antonio Way MD Work Phone: [facility] 01-23-2022 09:08-0400 Diastolic blood pressure 57 mm[Hg] José Antonio Way MD Work Phone: [facility] 01-23-2022 09:08-0400 Heart rate 53 /min José Antonio Way MD Work Phone: [facility] 01-23-2022 09:08-0400 Systolic blood pressure 111 mm[Hg] José Antonio Way MD Work Phone: [facility] 01-12-2022 10:47-0400 Body height 170.[address] MD Work Phone: [facility] 01-12-2022 10:47-0400 Body temperature 96.1 [degF] José Antonio Way MD Work Phone: [facility] 01-12-2022 10:47-0400 Body weight 85.[address] MD Work Phone: [facility] 01-12-2022 10:47-0400 Diastolic blood pressure 56 mm[Hg] José Antonio Way MD Work Phone: [facility] 01-12-2022 10:47-0400 Heart rate 58 /min José Antonio Way MD Work Phone: [facility] 01-12-2022 10:47-0400 Respiratory rate 16 /min José Antonio Way MD Work Phone: [facility] 01-12-2022 10:47-0400 Systolic blood pressure 126 mm[Hg] José Antonio Way MD Work Phone: [facility] 12-25-2021 10:54-0400 Diastolic blood pressure 70 mm[Hg] Lavell Flores MD Work Phone: [facility] 12-25-2021 10:54-0400 Systolic blood pressure 146 mm[Hg] Lavell Flores MD Work Phone: [facility] 12-25-2021 10:16-0400 Body temperature 98.1 [degF] Lavell Flores MD Work Phone: [facility] 12-25-2021 10:16-0400 Body weight 93.53 kg Lavell Flores MD Work Phone: [facility] 12-25-2021 10:16-0400 Heart rate 64 /min Lavell Flores MD Work Phone: [facility] 12-25-2021 10:16-0400 Respiratory rate 20 /min Lavell Flores MD Work Phone: [facility] 11-27-2021 08:36-0400 Body height 170.2 cm Pacc 1 Work Phone: [facility] 11-27-2021 08:36-0400 Body temperature 98.1 [degF] Pacc 1 Work Phone: [facility] 11-27-2021 08:36-0400 Body weight 90.72 kg Pacc 1 Work Phone: [facility] 11-27-2021 08:36-0400 Diastolic blood pressure 58 mm[Hg] Pacc 1 Work Phone: [facility] 11-27-2021 08:36-0400 Heart rate 66 /min Pacc 1 Work Phone: [facility] 11-27-2021 08:36-0400 Respiratory rate 16 /min Pacc 1 Work Phone: [facility] 11-27-2021 08:36-0400 SaO2% (BldA) [Mass fraction] 97 % Pacc 1 Work Phone: [facility] 11-27-2021 08:36-0400 Systolic blood pressure 128 mm[Hg] Pacc 1 Work Phone: [facility] Encounters Encounter Date Encounter Type Care Provider Facility Start: 05-23-2024 End: 05-25-2024 Refill Sanju Banerjee MD Work Phone: [facility] Comment on above: Refill Request Start: 05-12-2024 End: 05-12-2024 ambulatory SANJU BANERJEE Facility:[facility] Start: 05-07-2024 End: 05-07-2024 Chart abstracting Sanju Banerjee MD Work Phone: [facility] [place] Comment on above: Outside Procedure Start: 05-04-2024 End: 05-04-2024 Telephone encounter Jonah Dawson MD Work Phone: Cardiology Comment on above: Request for Records Start: 04-21-2024 End: 04-21-2024 Refill Liver Txp Coordinator Work Phone: [facility] Comment on above: Rx Refills (TAC 2AM/ 1PM ) Start: 04-07-2024 End: 04-07-2024 Telephone encounter Antoine Estrada RN [facility] Comment on above: Patient Update (Medi cation review ) Start: 04-03-2024 Telephone encounter Sanju Banerjee MD Work Phone: [facility] Comment on above: Patient Update Start: 04-03-2024 End: 04-03-2024 ambulatory SANJU BANERJEE Facility:[facility] Start: 04-03-2024 End: 04-03-2024 Patient encounter procedure Sanju Banerjee MD Work Phone: [facility] [place] Comment on above: 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, with long-term current use of insulin (HCC) (Primary Dx); Liver transplant status (HCC); Appetite loss; CKD (chronic kidney disease) stage 5, GFR less than 15 ml/min ([facility]) Start: 03-31-2024 Refill Sanju neff MD Work Phone: [facility] Comment on above: Refill Request Start: 03-23-2024 End: 03-23-2024 ambulatory [facility] Facility:[facility] Start: 03-03-2024 Telephone encounter Sanju Banerjee MD Work Phone: [facility] [place] Comment on above: Patient Update Start: 02-28-2024 End: 02-28-2024 ambulatory [facility] Facility:[facility] Start: 02-18-2024 Telephone encounter Sanju Banerjee MD Work Phone: [facility] [place] Comment on above: Medication Question Start: 02-15-2024 Nurse Triage Diane Graham RN NURSE [employer]PERVISOR Comment on above: Refill Request Start: 02-11-2024 Telephone encounter Sanju Banerjee MD Work Phone: [facility] [place] Comment on above: requesting medicatio n that is Rx Refills (MMF 500 mg BID ) Start: 02-06-2024 Telephone encounter Sanju Banerjee MD Work Phone: [facility] Comment on above: New Rx Request Start: 02-04-2024 Refill Sanju neff MD Work Phone: [facility] Comment on above: Refill Request Start: 02-03-2024 End: 02-03-2024 ambulatory NATHALY BARNHARTALBA Facility:[facility] Start: 01-22-2024 Home visit Sanju neff MD Work Phone: [facility] Comment on above: 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 (HCC) (Primary Dx) Start: 01-16-2024 End: 01-16-2024 ambulatory Noman Fontenot MD Work Phone: [facility] Start: 01-16-2024 End: 01-16-2024 Patient encounter procedure Noman Fontenot MD Work Phone: [facility] Comment on above: ESRD on dialysis (HC C) (Primary Dx); Liver transplanted (HCC) Start: 01-10-2024 End: 01-10-2024 ambulatory SANJU BANERJEE Facility:[facility] Start: 01-10-2024 End: 01-10-2024 Patient encounter procedure Sanju Banerjee MD Work Phone: [facility] Comment on above: Type 2 diabetes osiel itus with stage 4 chronic kidney disease, with long-term current use of insulin (HCC) (Primary Dx); ESRD (end stage renal disease) (HCC); Dialysis patient (HCC); Malnutrition of moderate degree (HCC) Start: 01-02-2024 Telephone encounter Sanju Banerjee MD Work Phone: [facility] Comment on above: Results Start: 12-30-2023 End: 12-30-2023 ambulatory NATHALY BARNHARTALBA Facility:[facility] Start: 12-23-2023 Telephone encounter Bradly clinton PA-C Work Phone: Urology Comment on above: Results Start: 12-23-2023 End: 12-23-2023 ambulatory NATHALY BARNHARTALBA Facility:[facility] Start: 12-20-2023 End: 12-20-2023 ambulatory SANJU BANERJEE Facility:[facility] Start: 12-20-2023 End: 12-20-2023 Patient encounter procedure Sanju Banerjee MD Work Phone: [facility] Comment on above: Type 2 diabetes osiel itus with stage 4 chronic kidney disease, with long-term current use of insulin (HCC) (Primary Dx); Mixed hyperlipidemia; Gastroesophageal reflux disease without esophagitis; History of stroke; Acute on chronic anemia; Coronary artery disease; Chronic kidney disease (CKD), stage IV (severe) (HCC); Secondary hyperparathyroidism of renal origin (HCC); Liver transplant status (HCC); Lupus anticoagulant syndrome (HCC); Thrombocytopenia (HCC); Bilateral leg edema; Obesity, Class I, BMI 30-34.9; Malnutrition of moderate degree (HCC); Liver transplant rejection (HCC); ESRD (end stage renal disease) (HCC); Encounter for aftercare following liver transplant (HCC); Dialysis patient (HCC); Medicare annual wellness visit, subsequent Start: 12-16-2023 End: 12-16-2023 ambulatory SRAVANI BERNABE Facility:[facility] Start: 12-12-2023 End: 12-12-2023 ambulatory SANJU BANERJEE Facility:[facility] Start: 12-06-2023 Home visit Wendi Marques RN [facility] Comment on above: [facility] Start: 12-05-2023 Telephone encounter Liver Txp Coordinator Work Phone: [facility] Comment on above: Patient Update Start: 12-04-2023 Telephone encounter Antoine mascorro RN [facility] Comment on above: Patient Update (Coe ucinating and not following commands ) Start: 12-04-2023 End: 12-12-2023 [facility] Start: 11-27-2023 Telephone encounter [facility] Comment [facility] Hospital [facility] Start: 11-26-2023 End: 11-26-2023 ambulatory BRADLY PRICE Facility:[facility] Start: 11-26-2023 End: 11-26-2023 Patient encounter procedure Bradly Price PA-C Work Phone: Urology Comment on above: Benign prostatic hyp erplasia with urinary hesitancy (Primary Dx); Screening for genitourinary condition; Chronic kidney disease (CKD), stage IV (severe) (HCC); Acute cystitis without hematuria Start: 11-26-2023 End: 11-26-2023 ambulatory SANJU BANERJEE Facility:[facility] Start: 11-25-2023 Refill Sanju neff MD Work Phone: [facility] Comment on above: Refill Request (See notes) Hypotension of hemod ialysis (Primary Dx) Start: 11-24-2023 Telephone encounter Sanju Banerjee MD Work Phone: [facility] Comment on above: Results Start: 11-23-2023 Telephone encounter Sanju Banerjee MD Work Phone: Hematology/Oncology Comment on above: Results Start: 11-21-2023 Telephone encounter Antoine mascorro final [employer] Comment on above: Patient Update (Conf usion ) Start: 11-20-2023 Telephone encounter Sanju Banerjee MD Work Phone: [facility] Comment on above: Results Start: 11-19-2023 Telephone encounter Sanju Banerjee MD Work Phone: Family [facility] [place] Comment on above: Orders Start: 11-19-2023 End: 11-19-2023 ambulatory SANJU BANERJEE Facility:[facility] Start: 11-11-2023 End: 11-11-2023 ambulatory SANJU BANERJEE Facility:[facility] Start: 11-08-2023 Telephone encounter Sanju Banerjee MD Work Phone: Family [facility] [place] Comment on above: Home Health referral ([facility]) Rx Refills (Protonix - routed to PCP) Start: 11-07-2023 Refill Antoine cheney [facility] Comment on above: Refill Request (Decr ease TAC 08/19) Start: 11-05-2023 ambulatory Josep may RN [facility] Start: 11-05-2023 Follow-up encounter Josep Valencia RN Director [employer]iconductor Management Comment on above: Transition Of Care ( TCM discharge follow-up) Start: 11-04-2023 Telephone encounter Sanju Banerjee MD Work Phone: [facility] [place] Comment on above: Orders Start: 11-04-2023 End: 11-04-2023 ambulatory SANJU BANERJEE Facility:[facility] Start: 11-04-2023 End: 11-04-2023 Patient encounter procedure Sanju Banerjee MD Work Phone: [facility] [place] Comment on above: Hemodialysis-associa simeon hypotension (Primary Dx); Bilateral leg edema; Subconjunctival hemorrhage of both eyes Start: 11-04-2023 End: 11-04-2023 ambulatory RAISA CHAN Facility:[facility] Start: 11-01-2023 Telephone encounter Sanju Banerjee MD Work Phone: [facility] Comment on above: Release Of Medical R ecords Start: 10-31-2023 Refill Anotine cheney RN [facility] Comment on above: Refill Request (Tacr olimus dose reduction 09/19) Refill Request Start: 10-30-2023 E-mail encounter fro m caregiver Antoine Estrada RN [facility] Start: 10-30-2023 Letter encounter Antoine chavez RN [facility] Comment on above: PCP Letters and new [employer] recommendations. Start: 10-26-2023 Telephone encounter Caroline DOUGHERTY S [facility] Comment on above: Home Care (Declined- out of service area) Start: 10-26-2023 End: 10-26-2023 Patient encounter procedure Sanju Banerjee MD Work Phone: [facility] [place] Comment on above: Hemodialysis-associa simeon hypotension (Primary Dx); Chronic kidney disease (CKD), stage IV (severe) (HCC); Type 2 diabetes mellitus with stage 4 chronic kidney disease, with long-term current use of insulin (HCC); Liver transplant status (HCC); Anasarca; Urge incontinence of urine; Benign prostatic hyperplasia with urinary hesitancy; Incontinence of feces, unspecified fecal incontinence type; Physical debility; Decreased transfer ability Start: 10-26-2023 End: 10-26-2023 ambulatory SANJUVANESSA BANERJEE Facility:[facility] Start: 10-24-2023 End: 10-24-2023 ambulatory Raisa Chan MD Work Phone: Gastroenterology Comment on above: Liver transplant sta tus (HCC) (Primary Dx) Start: 10-24-2023 End: 10-24-2023 Telemedicine consultation with patient Raisa Chan MD Work Phone: [facility] Start: 10-19-2023 End: 10-19-2023 ambulatory SANJU BANERJEE Facility:[facility] Start: 10-17-2023 Patient Outreach Josep De La Torre RN Director [employer]iconductor Management Comment on above: Transition Of Care ( TCM hospital discharge) Transition Of Care ( TCM Pharmacy-Hospital discharge 10/16/23) Start: 10-16-2023 End: 10-16-2023 Evaluation and management of inpatient SANJU BANERJEE Facility:[facility] Start: 10-10-2023 End: 10-10-2023 Evaluation and management of inpatient HOA TORREZ Facility:[facility] Start: 10-09-2023 Telephone encounter Liver Txp Coordinator Work Phone: Transplant Center Comment on above: Follow Up Start: 10-09-2023 End: 10-16-2023 Evaluation and management of inpatient RAISA DAT CHAN Facility:[facility] Start: 10-08-2023 Telephone encounter Sanju Banerjee MD Work Phone: Family Medicine [place] Comment on above: Patient Question Patient Update (BLE edema R>L and SOB ) Start: 10-07-2023 End: 10-07-2023 ambulatory SANJU Jon ADEBAYO Facility:[facility] Start: 10-05-2023 Telephone encounter Sanju Banerjee MD Work Phone: Internal Medicine [place] Comment on above: Patient Question Start: 10-04-2023 Telephone encounter May garnica RN Transplant Center Comment on above: Medication Dosage Ad justment (Tacrolimus) Start: 10-03-2023 End: 10-03-2023 Patient Outreach Tracy Brito RN [facility] [place] Comment on above: Optimal Transition P rogram Start: 10-02-2023 Chart abstracting Nathaly Neville PLASTIC FINISHER.DIRECTOR SOFTWARE QUALITY ASSURANCE Work Phone: Transplant Center Comment on above: Pathology review Disorder of liver (P rimary Dx); Liver replaced by transplant (HCC) Start: 10-01-2023 Telephone encounter Antoine mascorro RN Transplant Center Comment on above: Results (LFTs contin ue to improve, Low TAC - watch ) Start: 09-30-2023 Telephone encounter Sanju Banerjee MD Work Phone: [facility] [place] Comment on above: question on medicati ons Start: 09-30-2023 End: 09-30-2023 ambulatory SANJU BANERJEE Facility:[facility] Start: 09-28-2023 Patient Outreach Honey weaver RN Work Phone: Director [employer]iconductor Management Comment on above: Transition Of Care ( Hospital DC, initial outreach) Start: 09-27-2023 End: 09-27-2023 Evaluation and management of inpatient SANJU BANERJEE Facility:[facility] Start: 09-27-2023 Telephone encounter Sanju Banerjee MD Work Phone: [facility] Comment on above: Home Health Orders Start: 09-20-2023 End: 09-27-2023 Evaluation and management of inpatient JR ADALGISA Facility:[facility] Start: 09-17-2023 End: 09-20-2023 Evaluation and management of inpatient ANTONINA MARTHA Facility:[facility] Start: 09-16-2023 End: 09-16-2023 ambulatory RALEIGH TOBIN Facility:[facility] Start: 09-09-2023 End: 09-09-2023 ambulatory Mahogany LIMA Facility:[facility] Start: 09-09-2023 End: 09-09-2023 ambulatory SANJU BANERJEE Facility:[facility] Start: 09-06-2023 End: 09-06-2023 ambulatory SANJU BANERJEE Facility:[facility] Start: 09-03-2023 End: 09-03-2023 ambulatory SANJU BANERJEE Facility:[facility] Start: 09-03-2023 End: 09-03-2023 ambulatory SANJU A ADEBAYO Facility:[facility] Start: 08-27-2023 End: 08-30-2023 Evaluation and management of inpatient JENNIFER MICHAEL Facility:[facility] Start: 08-27-2023 Telephone encounter Antoine mascorro RN Transplant Center Start: 08-26-2023 End: 08-26-2023 ambulatory SANJU A ADEBAYO Facility:[facility] Start: 08-20-2023 ambulatory EFREN ERAZO Facility:[facility] Start: 08-20-2023 End: 08-20-2023 ambulatory SANJU A ADEBAYO Facility:[facility] Start: 08-13-2023 End: 08-13-2023 ambulatory SANJU A ADEBAYO Facility:[facility] Start: 08-05-2023 End: 08-07-2023 Evaluation and management of inpatient SANJU A ADEBAYO Facility:[facility] Start: 08-03-2023 End: 08-03-2023 ambulatory SANJU A ADEBAYO Facility:[facility] Start: 08-02-2023 End: 08-02-2023 ambulatory SANJU A ADEBAYO Facility:[facility] Start: 07-31-2023 End: 07-31-2023 ambulatory SANJU A ADEBAYO Facility:[facility] Start: 07-29-2023 Telephone encounter Delmer Velez [facility] Comment on above: Abnormal Lab Start: 07-29-2023 End: 07-29-2023 ambulatory SANJU A ADEBAYO Facility:[facility] Start: 07-29-2023 Encounter for other preprocedural examination NATHALY NEVILLE [facility] Start: 07-25-2023 Preprocedural examin ation done Antoine Estrada RN [facility] Start: 07-25-2023 Telephone encounter Antoine mascorro RN Transplant Center Comment on above: Results (Elevated LF Ts - recheck next week. ) Start: 07-25-2023 End: 07-25-2023 Patient encounter procedure Ginette Dee APRN.DIRECTOR SOFTWARE QUALITY ASSURANCE Work Phone: [facility] Comment on above: Edema of right lower extremity (Primary Dx) Start: 07-25-2023 End: 07-25-2023 ambulatory SANJU BANERJEE Facility:[facility] Start: 07-24-2023 End: 07-24-2023 ambulatory VITO QUYNH Facility:[facility] Start: 07-24-2023 End: 07-24-2023 Patient encounter procedure Ender Pang MD Work Phone: Ophthalmology Comment on above: Central retinal vein occlusion with macular edema of right eye; Tributary (branch) retinal vein occlusion, left eye, with macular edema Liver replaced by tr ansplant (HCC) (Primary Dx); Immunosuppressed status (HCC) Start: 07-24-2023 End: 07-24-2023 ambulatory SANJU BANERJEE Facility:[facility] Start: 07-18-2023 Telephone encounter Antoine mascorro [employer] [facility] Comment on above: Results (LFTs bumped up, recheck.) Start: 07-17-2023 End: 07-17-2023 ambulatory SANJU BANEREJE Facility:[facility] Start: 07-17-2023 End: 07-17-2023 Patient encounter procedure Sanju Banerjee MD Work Phone: [facility] Comment on above: Congestive heart hossein lure, unspecified HF chronicity, unspecified heart failure type (HCC) (Primary Dx); Essential hypertension; Hypertensive kidney disease with stage 4 chronic kidney disease (HCC) Start: 07-17-2023 End: 07-17-2023 ambulatory SANJU BANERJEE Facility:[facility] Start: 07-12-2023 Telephone encounter Demetrius PINTO Comment on above: Follow Up Phone Call (RC f/u all clear/) Start: 07-09-2023 End: 07-09-2023 ambulatory AFRICA WHITAKER Facility:[facility] Start: 07-09-2023 End: 07-09-2023 ambulatory AFRICA WHITAKER Facility:[facility] Start: 07-08-2023 End: 07-08-2023 Patient encounter procedure Noman Fontenot MD Work Phone: Kidney Medicine [facility] Comment on above: CKD (chronic kidney disease) stage 4, GFR 15-29 ml/min (HCC) (Primary Dx); Liver transplanted (HCC); Benign essential HTN; Proteinuria, unspecified type Start: 07-08-2023 Telephone encounter Africa santiago MD Work Phone: Cardiology Comment on above: Patient Education Start: 07-08-2023 End: 07-08-2023 ambulatory NOMAN FONTENOT Facility:[facility] Start: 06-28-2023 Refill Noman Fontenot MD Work Phone: Kidney Medicine [facility] Comment on above: Refill Request Start: 06-27-2023 Orders Only Antoine cheney RN Transplant Center Comment on above: Disorder of liver (P rimary Dx); Liver replaced by transplant (HCC) Start: 06-25-2023 Telephone encounter Africa santiago MD Work Phone: Cardiology Comment on above: Appointment 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) (Primary Dx) Results Start: 06-24-2023 End: 06-24-2023 ambulatory SANJU BANERJEE Facility:[facility] Start: 06-20-2023 Patient encounter procedure Lila Whitaker MD Work Phone: [facility] Work Phone: Start: 06-20-2023 End: 06-20-2023 ambulatory AFRICA WHITAKER Facility:[facility] Start: 06-11-2023 End: 06-12-2023 Patient encounter procedure Africa Whitaker MD Work Phone: [facility] Start: 06-11-2023 End: 06-12-2023 ambulatory Africa Whitaker MD Work Phone: Cardiology Start: 06-10-2023 Telephone encounter Africa santiago MD Work Phone: Cardiology Start: 06-05-2023 End: 06-05-2023 Patient encounter procedure Jonah Dawson MD Work Phone: [facility] Start: 06-05-2023 End: 06-05-2023 ambulatory Jonah Dawson MD Work Phone: Cardiology Start: 06-04-2023 Telephone encounter Jonah Dawson MD Work Phone: Cardiology Comment on above: Patient Education Start: 05-30-2023 Orders Only Jonah menendez MD Work Phone: Cardiology Comment on above: Abnormal stress test (Primary Dx); Angina pectoris (HCC) Start: 05-23-2023 Telephone encounter Sanju Banerjee MD Work Phone: [facility] Comment on above: Results Start: 05-20-2023 Telephone encounter Jonah Dawson MD Work Phone: Cardiology Comment on above: Patient Update Start: 05-20-2023 End: 05-20-2023 ambulatory VITO BEAUCHAMP Facility:[facility] Start: 05-17-2023 End: 05-17-2023 ambulatory SANJU BANERJEE Facility:[facility] Start: 05-17-2023 End: 05-17-2023 Patient encounter procedure Sanju Banerjee MD Work Phone: [facility] Comment on above: Congestive heart hossein lure, unspecified HF chronicity, unspecified heart failure type (HCC) (Primary Dx); CKD (chronic kidney disease) stage 4, GFR 15-29 ml/min (HCC); Bilateral leg edema; Abnormal stress test; Thrombocytopenia (HCC); Secondary hyperparathyroidism of renal origin (HCC); Reactive depression Start: 05-16-2023 End: 05-16-2023 ambulatory ENDER PANG Facility:[facility] Start: 05-13-2023 Telephone encounter Antoine mascorro [employer] [facility] Comment on above: Question (Concerned with rapamune and possible RHC ) ZULUAGA (dyspnea on exer tion) (Primary Dx); Coronary artery disease involving kaw coronary artery of kaw heart without angina pectoris; Hypertensive kidney disease with stage 4 chronic kidney disease (HCC); Abnormal stress test Start: 05-13-2023 End: 05-13-2023 Patient encounter procedure Mahogany Lima APRN.CNP Work Phone: Cardiology Comment on above: Abnormal stress test (Primary Dx); ZULUAGA (dyspnea on exertion); Hypertensive kidney disease with stage 4 chronic kidney disease (HCC) Start: 05-13-2023 End: 05-13-2023 Subsequent hospital visit by physician Card Injection Molecular Imaging Comment on above: Congestive heart hossein lure, unspecified HF chronicity, unspecified heart failure type (HCC) [I50.9] Start: 05-10-2023 Telephone encounter Sanju Banerjee MD Work Phone: [facility] [place] Comment on above: Results Start: 05-09-2023 Telephone encounter Antoine mascorro final [facility] Comment on above: Results (Low platele t count ) Start: 05-06-2023 Telephone encounter Sanju Banerjee MD Work Phone: [facility] [place] Comment on above: Results Start: 05-03-2023 Telephone encounter Sanju Banerjee MD Work Phone: [facility] [place] Comment on above: Patient Update; Resu lts Start: 05-02-2023 Telephone encounter Terra Dang MA [facility] [place] Comment on above: Orders Start: 04-26-2023 End: 04-26-2023 Patient encounter procedure Sanju Banerjee MD Work Phone: [facility] [place] Comment on above: Congestive heart hossein lure, unspecified HF chronicity, unspecified heart failure type (HCC) (Primary Dx); 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); SOB (shortness of breath); Leg edema, right; Abnormal EKG; Anasarca Start: 04-25-2023 Telephone encounter Sanju Banerjee MD Work Phone: [facility] [place] Comment on above: Appointment Start: 04-23-2023 Telephone encounter Vivian Brenda [facility] Comment on above: Return Call Request Start: 04-18-2023 End: 04-18-2023 Patient encounter procedure Ender Pang MD Work Phone: Ophthalmology Comment on above: Central retinal vein occlusion with macular edema of right eye (Primary Dx); Tributary (branch) retinal vein occlusion, left eye, with macular edema Start: 04-11-2023 Refill Liver Txp Coordinator Work Phone: Transplant Center Comment on above: Refill Request (Veronica cokere PAP ) Start: 03-18-2023 Orders Only Antoine cheney RN Transplant Center Comment on above: Liver replaced by tr ansplant (HCC) (Primary Dx) Start: 02-25-2023 End: 02-25-2023 Patient encounter procedure Jonah Dawson MD Work Phone: Cardiology Comment on above: Congestive heart hossein lure, unspecified HF chronicity, unspecified heart failure type (HCC) (Primary Dx); 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); Thoracic aorta atherosclerosis (HCC); Encounter for screening for cardiovascular disorders Start: 02-14-2023 Patient Outreach Tracy Brito RN [facility] Comment on above: Optimal Transition P helena Start: 12-31-2022 End: 12-31-2022 Patient encounter procedure Noman Fontenot MD Work Phone: [facility] Comment on above: CKD (chronic kidney disease) stage 4, GFR 15-29 ml/min (HCC) (Primary Dx); Proteinuria, unspecified type; Liver transplanted (HCC); Benign essential HTN Start: 12-30-2022 Refill Noman Fontenot MD Work Phone: [facility] Comment on above: Refill Request Start: 12-19-2022 Telephone encounter Claudia mcfadden PA-C Work Phone: [facility] [place] Comment on above: Results Start: 12-14-2022 Telephone encounter Claudia mcfadden PA-C Work Phone: [facility] [place] Comment on above: Results Start: 12-07-2022 Telephone encounter Claudia mcfadden PA-C Work Phone: [facility] [place] Comment on above: Results Start: 12-06-2022 Telephone encounter Claudia mcfadden PA-C Work Phone: [facility] [place] Comment on above: Orders Start: 12-06-2022 End: 12-06-2022 Patient encounter procedure Claudia Roberts PA-C Work Phone: [facility] [place] Comment on above: Type 2 diabetes osiel itus with stage 3b chronic kidney disease, without long-term current use of insulin (HCC) (Primary Dx); Mixed hyperlipidemia; 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); Essential hypertension; Hypertensive kidney disease with stage 4 chronic kidney disease (HCC); Thoracic aorta atherosclerosis (HCC); Gastroesophageal reflux disease without esophagitis; CKD (chronic kidney disease) stage 4, GFR 15-29 ml/min (HCC); Right leg swelling Start: 07-26-2022 Refill Liver Txp Coordinator Work Phone: Transplant Center Comment on above: Discussion (Refill/) ; Refill Request (Pfizer PAP discontinued - updated rapamune Rx ) Start: 07-09-2022 ambulatory Noman Fontenot MD Work Phone: [facility] Start: 07-09-2022 End: 07-09-2022 Patient encounter procedure Noman Fontenot MD Work Phone: [facility] Comment on above: Stage 3b chronic kid jeramie disease (HCC) (Primary Dx); Proteinuria, unspecified type; Liver transplanted (HCC); Benign essential HTN Start: 06-29-2022 Refill Antoine cheney RN Transplant Center Comment on above: Refill Request (Rapa mune - Pfizer PAP ) Start: 06-28-2022 Telephone encounter Sanju Banerjee MD Work Phone: [facility] [place] Comment on above: Results Start: 06-25-2022 End: 06-25-2022 Patient encounter procedure Claudia Roberts PA-C Work Phone: [facility] [place] Comment on above: Essential hypertensi on (Primary Dx); Encounter for immunization; Mixed hyperlipidemia; Type 2 diabetes mellitus with stage 3b chronic kidney disease, without long-term current use of insulin (HCC) Start: 06-20-2022 Telephone encounter Antoine mascorro RN Transplant Center Comment on above: Forms ([employer] PAP ) Start: 06-06-2022 End: 06-06-2022 Patient encounter procedure Sanju Banerjee MD Work Phone: [facility] [place] Comment on above: Medicare annual well ness visit, subsequent (Primary Dx); Type 2 diabetes mellitus with stage 3b chronic kidney disease, without long-term current use of insulin (HCC); Essential hypertension; Mixed hyperlipidemia; Hypertensive kidney disease with stage 4 chronic kidney disease (HCC); Secondary hyperparathyroidism of renal origin (HCC); Proteinuria, unspecified type; Gastroesophageal reflux disease without esophagitis; 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); Thoracic aorta atherosclerosis (HCC); Hypertensive retinopathy, unspecified laterality; History of stroke; CKD (chronic kidney disease) stage 4, GFR 15-29 ml/min (HCC); Anemia of renal disease; History of deep venous thrombosis (DVT) of distal vein of right lower extremity; Lupus anticoagulant syndrome (HCC); Thrombocytopenia (HCC); Liver transplant status ([facility]); Obesity, Class I, BMI 30-34.9; Arthritis; Advance directive discussed with patient; Living will in place; Prostate disorder Start: 05-31-2022 Refill Sanju neff MD Work Phone: [facility] Comment on above: Refill Request Start: 04-16-2022 Refill Sanju neff MD Work Phone: [facility] Comment on above: Refill Request Start: 03-15-2022 Refill Sanju neff MD Work Phone: [facility] Comment on above: Refill Request Start: 02-27-2022 Refill Sanju neff MD Work Phone: [facility] Comment on above: Refill Request Start: 01-30-2022 Orders Only Antoine cheney RN Transplant Center Comment on above: Liver replaced by tr ansplant (HCC) (Primary Dx) Start: 01-23-2022 End: 01-23-2022 Patient encounter procedure José Antonio Way MD Work Phone: General Surgery Comment on above: Incisional hernia wi th obstruction but no gangrene (Primary Dx) Start: 01-18-2022 Telephone encounter Antoine mascorro RN Transplant Center Comment on above: Medication Dosage Ad justment (Stop Tac and resume Rapa after hernia repair ) Start: 01-16-2022 ambulatory Antoine cheney RN Transplant Center Comment on above: Authorization for PM I Start: 01-16-2022 E-mail encounter fro m caregiver Antoine Estrada RN [facility] Start: 01-12-2022 End: 01-12-2022 Patient encounter procedure José Antonio Way MD Work Phone: General Surgery Comment on above: Incisional hernia wi th obstruction but no gangrene (Primary Dx) Start: 01-09-2022 Telephone encounter Sanju Banerjee MD Work Phone: [facility] [place] Comment on above: Patient Update Start: 12-25-2021 End: 12-25-2021 Patient encounter procedure Lavell Flores MD Work Phone: [facility] [place] Comment on above: S/P repair of ventra l hernia (Primary Dx); ABLA (acute blood loss anemia); CKD (chronic kidney disease) stage 4, GFR 15-29 ml/min (HCC); Essential hypertension; Hospital discharge follow-up; Elevated troponin level Start: 12-21-2021 Telephone encounter Sanju Banerjee MD Work Phone: [facility] [place] Comment on above: Need verbal Order fo r OT/Nursing Start: 12-20-2021 Patient Outreach Carmen hernandez RN Director Semiconductor Management Comment on above: Transition Of Care ( (TCM), [facility] D/C, 12-19-2021, TCM INITIAL OUTREACH) Hospital Follow Up Start: 12-18-2021 Orders Only Ginette elena APRN.DIRECTOR SOFTWARE QUALITY ASSURANCE Work Phone: General Surgery Comment on above: CKD (chronic kidney disease), stage IV (HCC) (Primary Dx) Discussion Start: 12-11-2021 Refill Sanju neff MD Work Phone: [facility] [place] Comment on above: Refill Request Start: 11-30-2021 Telephone encounter Tracy Mcneil Pre Anesthesia Comment on above: Pre-Op Update Start: 11-29-2021 Orders Only Jonah Graves MD Work Phone: Cardiology Comment on above: Essential hypertensi on (Primary Dx); Mixed hyperlipidemia Start: 11-27-2021 End: 11-27-2021 PAT Pacc [place] 1 Work Phone: Pre Anesthesia Comment on above: Preoperative examina tion (Primary Dx); Incisional hernia with obstruction but no gangrene; Type 2 diabetes mellitus with stage 3b chronic kidney disease, without long-term current use of insulin (HCC); Essential hypertension; Gastroesophageal reflux disease without esophagitis; History of alcohol abuse; History of cirrhosis of liver; History of encephalopathy; Mixed hyperlipidemia; History of hemochromatosis; Chronic low back pain without sciatica, unspecified back pain laterality; Anemia of renal disease; CKD (chronic kidney disease) stage 4, GFR 15-29 ml/min (HCC); Dilation of aorta (HCC); ZULUAGA (dyspnea on exertion); History of deep venous thrombosis (DVT) of distal vein of right lower extremity; History of stroke; Hypertensive kidney disease with stage 4 chronic kidney disease (HCC); Lupus anticoagulant syndrome (HCC); Prostate disorder; Secondary hyperparathyroidism of renal origin (HCC); Thrombocytopenia (HCC); Obesity, Class I, BMI 30-34.9 Start: 11-27-2021 End: 11-27-2021 Preprocedural examination done [facility] [place] 1 Work Phone: Pre Anesthesia Start: 11-24-2021 Telephone encounter Jonah Graves MD Work Phone: Cardiology Comment on above: Patient Question Start: 11-23-2021 Refill Sanju neff MD Work Phone: Family [facility] Comment on above: Refill Request Results Start: 11-17-2021 Telephone encounter Sanju Banerjee MD Work Phone: [facility] [place] Comment on above: Called Back Start: 11-16-2021 Telephone encounter Sanju Banerjee MD Work Phone: Family Medicine [place] Comment on above: Orders Start: 11-15-2021 End: 11-15-2021 Subsequent hospital visit by physician Card Injection Molecular Imaging Comment on above: Shortness of breath [R06.02] Start: 10-12-2021 Telephone encounter Irina pate PA-C Work Phone: Pre Anesthesia Comment on above: Pre-Op Update (Cardi ac clearance prior to surgery) Start: 07-03-2021 End: 07-03-2021 Subsequent hospital visit by physician [facility] [place] Work Phone: Radiology Comment on above: Bacterial pneumonia [J15.9] Start: 06-17-2021 End: 06-17-2021 Subsequent hospital visit by physician [facility] [place] Work Phone: Radiology Comment on above: ZULUAGA (dyspnea on exer tion) [R06.00] Start: 06-13-2021 End: 06-13-2021 Nursing evaluation of patient and report Mi Nurse Work Phone: [facility] Medicine [place] Comment on above: Hypertension, essent ial Start: 05-18-2021 Patient encounter procedure Card Inj ection [facility] Work Phone: Start: 12-14-2019 Patient encounter procedure SELF ORIANA F Facility:[facility] Start: 05-18-2014 End: 10-19-2019 Patient encounter status Antoine Estrada RN [facility] Procedures Date Procedure Procedure Detail Performing Clinician Start: 08-06-2023 End: 09-18-2023 H/O: liver recipient Immunosuppressive management encounter following liver transplant Antoine Estrada RN Start: 08-06-2023 End: 09-17-2023 History of placement of stent for coronary artery disease H/O right coronary artery stent placement Antoine Estraad RN Start: 07-24-2023 Intravitreal njx pharmacologic agt spx Ender Pang MD Work Phone: Start: 07-24-2023 Computerized ophthalmic imaging retina Ender Pang MD Work Phone: Start: 05-13-2023 Myocardial spect multiple studies Sanju Banerjee MD Work Phone: Start: 04-18-2023 Intravitreal njx pharmacologic agt spx Ender Pang MD Work Phone: Start: 04-18-2023 Computerized ophthalmic imaging retina Ender Pang MD Work Phone: Start: 12-31-2022 Creatinine other source Noman Fontenot MD Work Phone: Start: 07-09-2022 Urnls dip stick/tablet reagent auto microscopy Bulk Order Provider Start: 06-25-2022 [employer] COVID-19 BIVALENT BOOSTER VACCINE, AGE 12+ YR Claudia Roberts PA-C Work Phone: Start: 11-15-2021 Myocardial spect multiple studies Jonah Graves MD Work Phone: Start: 07-03-2021 Radiologic exam chest 2 views Sanju Banerjee MD Work Phone: Start: 06-17-2021 Radiologic exam chest 2 views Sanju Banerjee MD Work Phone: Start: 04-07-2014 H/O: liver recipient Liver transplant status Card Injection H/O: liver recipient Liver repla radha by transplant (HCC) Antoine Estrada RN H/O: liver recipient Liver trans plant status (HCC) Sanju Banerjee MD Work Phone: H/O: liver recipient Liver transplanted ( HCC) Noman Fontenot MD Work Phone: H/O: liver recipient Liver transplanted ( HCC) Noman Fonteont MD Work Phone: H/O: liver recipient Liver repla radha by transplant (HCC) Antoine Estrada RN H/O: liver recipient Liver repla radha by transplant (HCC) Antoine Estrada RN H/O: liver recipient Liver transplanted ( HCC) Noman Fontenot MD Work Phone: H/O: liver recipient Liver repla radha by transplant (HCC) Antoine Estrada RN H/O: liver recipient Liver repla radha by transplant (HCC) Antoine Estrada RN H/O: liver recipient Liver repla radha by transplant (HCC) Antoine Estrada RN H/O: liver recipient Liver trans plant status (HCC) Raisa Chan MD Work Phone: H/O: liver recipient Liver trans plant status (HCC) Sanju Banerjee MD Work Phone: H/O: liver recipient Liver repla radha by transplant (HCC) Antoine Estrada RN H/O: liver recipient Liver repla radha by transplant (HCC) Vito Beauchamp APRN.CNP Work Phone: H/O: liver recipient Liver trans plant status (HCC) Sanju Banerjee MD Work Phone: H/O: liver recipient Liver transplanted ( HCC) Noman Fontenot MD Work Phone: H/O: liver recipient Liver trans plant status (HCC) Sanju Banerjee MD Work Phone: H/O: liver recipient Liver repla radha by transplant (HCC) Liver Txp Coordinator Work Phone: Plan of Treatment Date Care Activity Detail Author Start: 05-12-2025 Complete blood count Hemoglobin/Hematocrit [facility] Start: 05-12-2025 Creatinine measurement Serum Creatinine [facility] Start: 04-03-2025 Annual PCP Team Chronic Disease Visit Annual PCP Team Chronic Disease Visit [facility] Start: 04-03-2025 BP Controlled (<130/80) BP Controlled (<130/80) [facility] Start: 03-23-2025 Complete blood count Hemoglobin/Hematocrit [facility] Start: 03-23-2025 Creatinine measurement Serum Creatinine [facility] Start: 02-27-2025 Complete blood count Hemoglobin/Hematocrit [facility] Start: 02-27-2025 Creatinine measurement Serum Creatinine [facility] Start: 02-02-2025 Complete blood count Hemoglobin/Hematocrit [facility] Start: 02-02-2025 Creatinine measurement Serum Creatinine [facility] Start: 01-15-2025 BP Controlled (<130/80) BP Controlled (<130/80) [facility] Start: 01-15-2025 Complete blood count Hemoglobin/Hematocrit [facility] Start: 01-15-2025 Creatinine measurement Serum Creatinine [facility] Start: 01-09-2025 Annual PCP Team Chronic Disease Visit Annual PCP Team Chronic Disease Visit [facility] Start: 01-09-2025 BP Controlled (<130/80) BP Controlled (<130/80) [facility] Start: 12-29-2024 Complete blood count Hemoglobin/Hematocrit [facility] Start: 12-29-2024 Creatinine measurement Serum Creatinine [facility] Start: 12-22-2024 Complete blood count Hemoglobin/Hematocrit [facility] Start: 12-22-2024 Creatinine measurement Serum Creatinine [facility] Start: 12-22-2024 Hepatitis B surface antibody level LDL Cholesterol [facility] Start: 12-19-2024 Annual PCP Team Chronic Disease Visit Annual PCP Team Chronic Disease Visit [facility] Start: 12-11-2024 Complete blood count Hemoglobin/Hematocrit [facility] Start: 12-11-2024 Creatinine measurement Serum Creatinine [facility] Start: 12-05-2024 Complete blood count Hemoglobin/Hematocrit [facility] Start: 12-05-2024 Creatinine measurement Serum Creatinine [facility] Start: 12-04-2024 Complete blood count Hemoglobin/Hematocrit [facility] Start: 12-04-2024 Creatinine measurement Serum Creatinine [facility] Start: 11-25-2024 BP Controlled (<130/80) BP Controlled (<130/80) [facility] Start: 11-25-2024 Complete blood count Hemoglobin/Hematocrit [facility] Start: 11-25-2024 Creatinine measurement Serum Creatinine [facility] Start: 11-18-2024 Complete blood count Hemoglobin/Hematocrit [facility] Start: 11-18-2024 Creatinine measurement Serum Creatinine [facility] Start: 11-10-2024 Complete blood count Hemoglobin/Hematocrit [facility] Start: 11-10-2024 Creatinine measurement Serum Creatinine [facility] Start: 11-03-2024 Annual PCP Team Chronic Disease Visit Annual PCP Team Chronic Disease Visit [facility] Start: 11-03-2024 BP Controlled (<130/80) BP Controlled (<130/80) [facility] Start: 11-03-2024 Complete blood count Hemoglobin/Hematocrit [facility] Start: 11-03-2024 Creatinine measurement Serum Creatinine [facility] Start: 10-25-2024 Annual PCP Team Chronic Disease Visit Annual PCP Team Chronic Disease Visit [facility] Start: 10-25-2024 BP Controlled (<130/80) BP Controlled (<130/80) [facility] Start: 10-25-2024 Complete blood count Hemoglobin/Hematocrit [facility] Start: 10-25-2024 Covid-19 Vaccine () Covid-19 Vaccine () [facility] Comment on above: Postponed from 04/19/2023 (Declined at t his time) Start: 10-25-2024 Creatinine measurement Serum Creatinine [facility] Start: 10-18-2024 Complete blood count Hemoglobin/Hematocrit [facility] Start: 10-18-2024 Creatinine measurement Serum Creatinine [facility] Start: 10-16-2024 Complete blood count Hemoglobin/Hematocrit [facility] Start: 10-16-2024 Creatinine measurement Serum Creatinine [facility] Start: 10-09-2024 Complete blood count Hemoglobin/Hematocrit [facility] Start: 10-09-2024 Creatinine measurement Serum Creatinine [facility] Start: 10-07-2024 Complete blood count Hemoglobin/Hematocrit [facility] Start: 10-07-2024 Creatinine measurement Serum Creatinine [facility] Start: 10-03-2024 Complete blood count Hemoglobin/Hematocrit [facility] Start: 10-03-2024 Creatinine measurement Serum Creatinine [facility] Start: 09-30-2024 Complete blood count Hemoglobin/Hematocrit [facility] Start: 09-30-2024 Creatinine measurement Serum Creatinine [facility] Start: 09-27-2024 Complete blood count Hemoglobin/Hematocrit [facility] Start: 09-27-2024 Creatinine measurement Serum Creatinine [facility] Start: 09-20-2024 Complete blood count Hemoglobin/Hematocrit [facility] Start: 09-20-2024 Creatinine measurement Serum Creatinine [facility] Start: 09-18-2024 Diabetic foot examination Diabetic Foot Exam [facility] Start: 09-06-2024 Annual PCP Team Chronic Disease Visit Annual PCP Team Chronic Disease Visit [facility] Start: 08-26-2024 End: 08-26-2024 Patient encounter procedure 08/26/2024 9:00 AM EST Office Visit Transplant Center [address] [address] [employer], Liver [address] [place] [id number] Liver replaced by transplant (HCC) [Z94.4] Transplant Center Comment on above: Liver replaced by transplant (HCC) [Z94. 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, left eye, with macular edema Expected: 08/07/2024, Expires: 01/14/2025 [facility] Work Phone: Comment on above: Expected: 08/07/2024, Expires: Start: 07-29-2024 Complete blood count Hemoglobin/Hematocrit [facility] Start: 07-29-2024 Creatinine measurement Serum Creatinine [facility] Start: 07-25-2024 Annual PCP Team Chronic Disease Visit Annual PCP Team Chronic Disease Visit [facility] Start: 07-24-2024 Glaucoma screening Dilated Retinal Exam [facility] Start: 07-24-2024 Hepatitis C antibody, confirmatory test Dilated Retinal Exam [facility] Start: 07-24-2024 Serum Creatinine Serum Creatinine [facility] Start: 07-17-2024 Annual PCP Team Chronic Disease Visit Annual PCP Team Chronic Disease Visit [facility] Start: 07-17-2024 BP Controlled (<130/80) BP Controlled (<130/80) [facility] Start: 07-17-2024 Hemoglobin/Hematocrit Hemoglobin/Hematocrit [facility] Start: 07-17-2024 Serum Creatinine Serum Creatinine [facility] Start: 07-09-2024 Hemoglobin/Hematocrit Hemoglobin/Hematocrit [facility] Start: 07-09-2024 Serum Creatinine Serum Creatinine [facility] Start: 06-25-2024 End: 06-25-2024 Patient encounter procedure 06/25/2024 9:20 AM EST Office Visit [facility] [place] [address] [place] [place] [id number] Sanju Banerjee MD [address] [place] [address] medicare wellness [facility] [place] Comment on above: medicare wellness Start: 06-24-2024 Hemoglobin A1c measurement HbA1C [facility] Start: 06-24-2024 Hemoglobin/Hematocrit Hemoglobin/Hematocrit [facility] Start: 06-24-2024 Hepatitis B surface antibody level LDL Cholesterol [facility] Start: 06-24-2024 Serum Creatinine Serum Creatinine [facility] Start: 06-20-2024 Annual PCP Team Chronic Disease Visit Annual PCP Team Chronic Disease Visit [facility] Start: 06-20-2024 Shingrix Vaccine (1 of 2) Shingrix Vaccine (1 of 2) [facility] Comment on above: Postponed from 1964 (Insurance Cov erage) Start: 06-20-2024 Urine microalbumin profile DTaP,Tdap,Td Vaccine (2 - Td or Tdap) [facility] Comment on above: Postponed from 02/01/2023 (Insurance Cov erage) Start: 06-05-2024 Hemoglobin/Hematocrit Hemoglobin/Hematocrit [facility] Start: 06-05-2024 Serum Creatinine Serum Creatinine [facility] Start: 05-20-2024 Hemoglobin/Hematocrit Hemoglobin/Hematocrit [facility] Start: 05-20-2024 Serum Creatinine Serum Creatinine [facility] Start: 05-17-2024 Annual PCP Team Chronic Disease Visit Annual PCP Team Chronic Disease Visit [facility] Start: 05-16-2024 Hepatitis C antibody, confirmatory test Dilated Retinal Exam [facility] Start: 05-09-2024 Serum Creatinine Serum Creatinine [facility] Start: 05-07-2024 Hemoglobin/Hematocrit Hemoglobin/Hematocrit [facility] Start: 05-06-2024 Serum Creatinine Serum Creatinine [facility] Start: 05-02-2024 Annual PCP Team Chronic Disease Visit Annual PCP Team Chronic Disease Visit [facility] Start: 05-02-2024 End: 10-09-2024 OCT MACULA CIRRUS OU (BOTH EYES) OCT MACULA CIRRUS OU (BOTH EYES) OPHT Imaging Routine 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, left eye, with macular edema Expected: 05/02/2024, Expires: 10/09/2024 [facility] Work Phone: Comment on above: Expected: 05/02/2024, Expires: Start: 05-02-2024 Serum Creatinine Serum Creatinine [facility] Start: 04-26-2024 ANNUAL PCP TEAM CHRONIC DISEASE VISIT ANNUAL PCP TEAM CHRONIC DISEASE VISIT [facility] Start: 04-26-2024 BP CONTROLLED (<130/80) BP CONTROLLED (<130/80) [facility] Start: 04-19-2024 Covid-19 Vaccine ( season) Covid-19 Vaccine () [facility] Start: 04-19-2024 Covid-19 Vaccine ( season) Covid-19 Vaccine ( season) [facility] Start: 04-19-2024 Influ[facility] Start: 04-18-2024 Hepatitis C antibody, confirmatory test DILATED RETINAL EXAM [facility] Start: 04-03-2024 End: 04-03-2024 Patient encounter procedure 04/03/2024 11:00 AM EDT Office Visit [facility] [place] [address] [place] [address] Sanju Banerjee MD [address] [place] [address] follow up diabetes BS [facility] [place] Comment on above: follow up diabetes BS Start: 03-15-2024 HEMOGLOBIN/HEMATOCRIT HEMOGLOBIN/HEMATOCRIT [facility] Start: 03-15-2024 SERUM CREATININE SERUM CREATININE [facility] Start: 03-11-2024 Hepatitis C antibody, confirmatory test DILATED RETINAL EXAM [facility] Start: 02-26-2024 3 comp foot exam completed Diabetic Foot Exam [facility] Start: 02-26-2024 Diabetic foot examination Diabetic Foot Exam [facility] Start: 02-17-2024 HEMOGLOBIN/HEMATOCRIT HEMOGLOBIN/HEMATOCRIT [facility] Start: 02-17-2024 SERUM CREATININE SERUM CREATININE [facility] Start: 01-28-2024 End: 01-28-2024 Patient encounter procedure 01/28/2024 10:20 AM EDT Office Visit [facility] [address] [place] [address] Rio Laurent DO [address] [place] [address] Neurodegenerative Decline; Hospital Discharge [facility] Comment on above: Neurodegenerative Decline; Hospital Disc harge Start: 01-22-2024 HEMOGLOBIN/HEMATOCRIT HEMOGLOBIN/HEMATOCRIT [facility] Start: 01-22-2024 Hepatitis B surface antibody level LDL CHOLESTEROL [facility] Start: 01-22-2024 SERUM CREATININE SERUM CREATININE [facility] Start: 01-16-2024 End: 01-16-2024 Patient encounter procedure 01/16/2024 10:50 AM EDT Office Visit Kidney Medicine [facility] [address] [address] Noman Fontenot MD [address] [place] [address] 6 month follow up per cc chart Kidney Medicine [facility] Comment on above: 6 month follow up per cc chart Start: 01-10-2024 End: 01-10-2024 Patient encounter procedure 01/10/2024 11:00 AM EDT Office Visit [facility] [place] [address] [place], [place] [id number] Sanju Banerjee MD [address] [place], [place] [id number] 3 week follow up on sugars [facility] [place] Comment on above: 3 week follow up on sugars Start: 01-06-2024 End: 04-06-2024 Bacteria identified in Urine by Culture URINE CULTURE Microbiology Routine Acute cystitis without hematuria Expected: 01/06/2024 (Approximate), Expires: 04/06/2024 [facility] Work Phone: Comment on above: Expected: 01/06/2024 (Approximate), Expi res: 04/06/2024 Start: 12-30-2023 End: 12-30-2023 Patient encounter procedure 12/30/2023 2:30 PM EDT Office Visit Gastroenterology [address] [address] Natalie Shipman APRN.[employer] [address] [place] [address] hosp d/c follow up Gastroenterology Comment on above: hosp d/c follow up Start: 12-25-2023 ANNUAL PCP TEAM CHRONIC DISEASE VISIT ANNUAL PCP TEAM CHRONIC DISEASE VISIT [facility] Start: 12-23-2023 Hemoglobin A1c measurement HbA1C [facility] Start: 12-23-2023 Hemoglobin A1c/Hemoglobin.total in Blood HbA1C [facility] Start: 12-20-2023 End: 12-20-2023 Patient encounter procedure 12/20/2023 11:00 AM EDT Office Visit [facility] [place] [address] [place], [place] [address] Sanju Banerjee MD [address] [place], [place] [id number] 6 month follow up [facility] [place] Comment on above: 6 month follow up Start: 12-17-2023 Hemoglobin A1c measurement HbA1C [facility] Start: 12-14-2023 SERUM CREATININE SERUM CREATININE [facility] Start: 12-10-2023 End: 03-10-2024 Bacteria identified in Urine by Culture URINE CULTURE Microbiology Routine Chronic kidney disease (CKD), stage IV (severe) (HCC) Acute cystitis without hematuria Expected: 12/10/2023 (Approximate), Expires: 03/10/2024 [facility] Work Phone: Comment on above: Expected: 12/10/2023 (Approximate), Expi res: 03/10/2024 Start: 12-07-2023 ANNUAL PCP TEAM CHRONIC DISEASE VISIT ANNUAL PCP TEAM CHRONIC DISEASE VISIT [facility] Start: 12-07-2023 SERUM CREATININE SERUM CREATININE [facility] Start: 11-29-2023 End: 02-28-2024 Ammonia [Moles/volume] in Plasma AMMONIA BLD Lab Routine Liver replaced by transplant (HCC) Expected: 11/29/2023, Expires: 02/28/2024 [facility] Work Phone: Comment on above: Expected: 11/29/2023, Expires: Start: 11-21-2023 HEMOGLOBIN/HEMATOCRIT HEMOGLOBIN/HEMATOCRIT [facility] Start: 11-21-2023 Hepatitis B surface antibody level LDL CHOLESTEROL [facility] Start: 11-19-2023 End: 02-18-2024 Bacteria identified in Urine by Culture URINE CULTURE Microbiology Routine Urge incontinence of urine Expected: 11/19/2023, Expires: 02/18/2024 [facility] Work Phone: Comment on above: Expected: 11/19/2023, Expires: Start: 11-19-2023 End: 02-18-2024 Urinalysis complete panel - Urine URINALYSIS, WITH MICROSCOPIC Lab Routine Urge incontinence of urine Expected: 11/19/2023, Expires: 02/18/2024 [facility] Work Phone: Comment on above: Expected: 11/19/2023, Expires: 4 Start: 08-28-2023 End: 10-28-2023 CBC panel - Blood by Automated count CBC Lab Routine Congestive heart failure, unspecified HF chronicity, unspecified heart failure type (HCC) 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) Thoracic aorta atherosclerosis (HCC) Encounter for screening for cardiovascular disorders Expected: 08/28/2023, Expires: 10/28/2023 [facility] Work Phone: Comment on above: Expected: 08/28/2023, Expires: 4 Start: 08-19-2023 Advance Directive Discussion Advance Directive Discussion [facility] Start: 08-19-2023 Behavioral Health Screening Behavioral Health Screening [facility] Start: 08-19-2023 Depression Assessment Depression Assessment [facility] Start: 07-29-2023 End: 10-28-2023 CBC W Auto Differential panel - Blood CBC + DIFF Lab Routine Liver replaced by transplant (HCC) Expected: 07/29/2023, Expires: 10/28/2023 [facility] Work Phone: Comment on above: Expected: 07/29/2023, Expires: 4 Start: 07-29-2023 End: 10-28-2023 Comprehensive metabolic 2000 panel - Serum or Plasma COMP METABOLIC PANEL Lab Routine Liver replaced by transplant (HCC) Expected: 07/29/2023, Expires: 10/28/2023 [facility] Work Phone: Comment on above: Expected: 07/29/2023, Expires: 4 Start: 07-29-2023 End: 10-28-2023 PT panel - Platelet poor plasma by Coagulation assay PROTHROMBIN TIME/PT Lab Routine Liver replaced by transplant (HCC) Preoperative examination Expected: 07/29/2023, Expires: 10/28/2023 [facility] Work Phone: Comment on above: Expected: 07/29/2023, Expires: 4 Start: 07-29-2023 End: 10-28-2023 Sirolimus [Mass/volume] in Blood SIROLIMUS/RAPAMUNE B Lab Routine Liver replaced by transplant (HCC) Expected: 07/29/2023, Expires: 10/28/2023 [facility] Work Phone: Comment on above: Expected: 07/29/2023, Expires: 4 Start: 07-24-2023 End: 10-23-2023 Comprehensive metabolic 2000 panel - Serum or Plasma COMP METABOLIC PANEL Lab Routine Disorder of liver Liver replaced by transplant (HCC) Expected: 07/24/2023, Expires: 10/23/2023 [facility] Work Phone: Comment on above: Expected: 07/24/2023, Expires: 4 Start: 07-24-2023 End: 10-23-2023 Sirolimus [Mass/volume] in Blood SIROLIMUS/RAPAMUNE B Lab Routine Disorder of liver Liver replaced by transplant (HCC) Expected: 07/24/2023, Expires: 10/23/2023 [facility] Work Phone: Comment on above: Expected: 07/24/2023, Expires: 4 Start: 07-23-2023 HEMOGLOBIN/HEMATOCRIT HEMOGLOBIN/HEMATOCRIT [facility] Start: 07-23-2023 SERUM CREATININE SERUM CREATININE [facility] Start: 06-28-2023 HEMOGLOBIN/HEMATOCRIT HEMOGLOBIN/HEMATOCRIT [facility] Start: 06-28-2023 Hepatitis B surface antibody level LDL CHOLESTEROL [facility] Start: 06-28-2023 SERUM CREATININE SERUM CREATININE [facility] Start: 06-25-2023 ANNUAL PCP TEAM CHRONIC DISEASE VISIT ANNUAL PCP TEAM CHRONIC DISEASE VISIT [facility] Start: 06-25-2023 BP CONTROLLED (<130/80) BP CONTROLLED (<130/80) [facility] Start: 06-07-2023 Hemoglobin A1c/Hemoglobin.total in Blood HBA1C [facility] Start: 06-06-2023 3 comp foot exam completed DIABETIC FOOT EXAM [facility] Start: 06-06-2023 ANNUAL PCP TEAM CHRONIC DISEASE VISIT ANNUAL PCP TEAM CHRONIC DISEASE VISIT [facility] Start: 06-06-2023 SHINGRIX VACCINE (1 of 2) SHINGRIX VACCINE (1 of 2) [facility] Comment on above: Postponed from 1964 (Insurance Cov erage) Start: 05-21-2023 HEMOGLOBIN/HEMATOCRIT HEMOGLOBIN/HEMATOCRIT [facility] Start: 05-21-2023 SERUM CREATININE SERUM CREATININE [facility] Start: 05-13-2023 End: 10-18-2023 Basic metabolic 2000 panel - Serum or Plasma BASIC METABOLIC PNL Lab Routine ZULUAGA (dyspnea on exertion) Hypertensive kidney disease with stage 4 chronic kidney disease (HCC) Abnormal stress test Expected: 05/13/2023, Expires: 10/18/2023 [facility] Work Phone: Comment on above: Expected: 05/13/2023, Expires: 4 Start: 05-09-2023 End: 07-09-2023 Basic metabolic 2000 panel - Serum or Plasma [facility] Work Phone: Comment on above: Expected: 05/09/2023, Expires: 3 Start: 05-09-2023 End: 07-09-2023 Natriuretic peptide.B prohormone N-Terminal [Mass/volume] in Serum or Plasma [facility] Work Phone: Comment on above: Expected: 05/09/2023, Expires: 3 Start: 05-03-2023 End: 07-03-2023 Basic metabolic 2000 panel - Serum or Plasma BASIC METABOLIC PNL Lab Routine Congestive heart failure, unspecified HF chronicity, unspecified heart failure type (HCC) CKD (chronic kidney disease) stage 4, GFR 15-29 ml/min (HCC) Expected: 05/03/2023, Expires: 07/03/2023 [facility] Work Phone: Comment on above: Expected: 05/03/2023, Expires: 3 Start: 05-03-2023 End: 07-03-2023 Natriuretic peptide.B prohormone N-Terminal [Mass/volume] in Serum or Plasma NT PRO BNP Lab Routine Congestive heart failure, unspecified HF chronicity, unspecified heart failure type (HCC) Expected: 05/03/2023, Expires: 07/03/2023 [facility] Work Phone: Comment on above: Expected: 05/03/2023, Expires: 3 Start: 04-19-2023 Covid-19 Vaccine () Covid-19 Vaccine () [facility] Start: 04-19-2023 Influenza vaccination INFLUENZA (#1) [facility] Start: 03-19-2023 HEMOGLOBIN/HEMATOCRIT HEMOGLOBIN/HEMATOCRIT [facility] Start: 03-19-2023 SERUM CREATININE SERUM CREATININE [facility] Start: 02-25-2023 End: 04-27-2023 Basic metabolic 2000 panel - Serum or Plasma BASIC METABOLIC PNL Lab Routine Congestive heart failure, unspecified HF chronicity, unspecified heart failure type (HCC) 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) Thoracic aorta atherosclerosis (HCC) Encounter for screening for cardiovascular disorders Expected: 02/25/2023, Expires: 04/27/2023 [facility] Work Phone: Comment on above: Expected: 02/25/2023, Expires: Start: 02-21-2023 HEMOGLOBIN/HEMATOCRIT HEMOGLOBIN/HEMATOCRIT [facility] Start: 02-21-2023 SERUM CREATININE SERUM CREATININE [facility] Start: 02-01-2023 Urine microalbumin profile [facility] Start: 01-29-2023 HEMOGLOBIN/HEMATOCRIT HEMOGLOBIN/HEMATOCRIT [facility] Start: 01-29-2023 SERUM CREATININE SERUM CREATININE [facility] Start: 01-23-2023 BP CONTROLLED (<130/80) BP CONTROLLED (<130/80) [facility] Start: 01-16-2023 HEMOGLOBIN/HEMATOCRIT HEMOGLOBIN/HEMATOCRIT [facility] Start: 01-16-2023 SERUM CREATININE SERUM CREATININE [facility] Start: 01-12-2023 BP CONTROLLED (<130/80) BP CONTROLLED (<130/80) [facility] Start: 01-01-2023 HEMOGLOBIN/HEMATOCRIT HEMOGLOBIN/HEMATOCRIT [facility] Start: 01-01-2023 Hepatitis B surface antibody level LDL CHOLESTEROL [facility] Start: 01-01-2023 SERUM CREATININE SERUM CREATININE [facility] Start: 12-25-2022 ANNUAL PCP TEAM CHRONIC DISEASE VISIT ANNUAL PCP TEAM CHRONIC DISEASE VISIT [facility] Start: 12-25-2022 HEMOGLOBIN/HEMATOCRIT HEMOGLOBIN/HEMATOCRIT [facility] Start: 12-25-2022 SERUM CREATININE SERUM CREATININE [facility] Start: 12-23-2022 Hemoglobin A1c/Hemoglobin.total in Blood HBA1C [facility] Start: 12-19-2022 HEMOGLOBIN/HEMATOCRIT HEMOGLOBIN/HEMATOCRIT [facility] Start: 12-19-2022 SERUM CREATININE SERUM CREATININE [facility] Start: 12-18-2022 HEMOGLOBIN/HEMATOCRIT HEMOGLOBIN/HEMATOCRIT [facility] Start: 12-18-2022 SERUM CREATININE SERUM CREATININE [facility] Start: 12-11-2022 End: 02-10-2023 Basic metabolic 2000 panel - Serum or Plasma BASIC METABOLIC PNL Lab Routine Right leg swelling Expected: 12/11/2022, Expires: 02/10/2023 [facility] Work Phone: Comment on above: Expected: 12/11/2022, Expires: Start: 11-29-2022 BP CONTROLLED (<130/80) BP CONTROLLED (<130/80) [facility] Start: 11-27-2022 BP CONTROLLED (<130/80) BP CONTROLLED (<130/80) [facility] Start: 11-21-2022 HEMOGLOBIN/HEMATOCRIT HEMOGLOBIN/HEMATOCRIT [facility] Start: 11-21-2022 SERUM CREATININE SERUM CREATININE [facility] Start: 11-16-2022 ANNUAL PCP TEAM CHRONIC DISEASE VISIT ANNUAL PCP TEAM CHRONIC DISEASE VISIT [facility] Start: 11-16-2022 BP CONTROLLED (<130/80) BP CONTROLLED (<130/80) [facility] Start: 11-06-2022 HEMOGLOBIN/HEMATOCRIT HEMOGLOBIN/HEMATOCRIT [facility] Start: 11-06-2022 Hepatitis B surface antibody level LDL CHOLESTEROL [facility] Start: 11-06-2022 SERUM CREATININE SERUM CREATININE [facility] Start: 08-20-2022 COVID-19 VACCINE (5 - Pfizer risk series) COVID-19 VACCINE (5 - Pfizer risk series) [facility] Start: 08-19-2022 ADVANCE DIRECTIVE DISCUSSION ADVANCE DIRECTIVE DISCUSSION [facility] Start: 08-19-2022 DEPRESSION ASSESSMENT DEPRESSION ASSESSMENT [facility] Start: 07-03-2022 ANNUAL PCP TEAM CHRONIC DISEASE VISIT ANNUAL PCP TEAM CHRONIC DISEASE VISIT [facility] Start: 06-06-2022 End: 08-06-2022 ALBUMIN/CREAT RATIO RND UR ALBUMIN/CREAT RATIO RND UR Lab Routine Type 2 diabetes mellitus with stage 3b chronic kidney disease, without long-term current use of insulin (HCC) Expected: 06/06/2022, Expires: 08/06/2022 [facility] Work Phone: Comment on above: Expected: 06/06/2022, Expires: 2 Start: 06-06-2022 End: 08-06-2022 Hemoglobin A1c in Blood HGB A1C Lab Routine Type 2 diabetes mellitus with stage 3b chronic kidney disease, without long-term current use of insulin (HCC) Expected: 06/06/2022, Expires: 08/06/2022 [facility] Work Phone: Comment on above: Expected: 06/06/2022, Expires: 2 Start: 06-06-2022 End: 08-06-2022 LIPID PANEL, NONFASTING LIPID PANEL, NONFASTING Lab Routine Type 2 diabetes mellitus with stage 3b chronic kidney disease, without long-term current use of insulin (HCC) Essential hypertension Mixed hyperlipidemia 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) Expected: 06/06/2022, Expires: 08/06/2022 [facility] Work Phone: Comment on above: Expected: 06/06/2022, Expires: 2 Start: 06-06-2022 End: 08-06-2022 Prostate specific Ag [Mass/volume] in Serum or Plasma PSA/PROSTSPECAG DIAG Lab Routine Prostate disorder Expected: 06/06/2022, Expires: 08/06/2022 [facility] Work Phone: Comment on above: Expected: 06/06/2022, Expires: 2 Start: 06-06-2022 End: 08-06-2022 Urinalysis complete panel - Urine URINALYSIS, WITH MICROSCOPIC Lab Routine Type 2 diabetes mellitus with stage 3b chronic kidney disease, without long-term current use of insulin (HCC) Essential hypertension Mixed hyperlipidemia Expected: 06/06/2022, Expires: 08/06/2022 [facility] Work Phone: Comment on above: Expected: 06/06/2022, Expires: 2 Start: 05-23-2022 Hemoglobin A1c/Hemoglobin.total in Blood HBA1C [facility] Start: 05-18-2022 3 comp foot exam completed DIABETIC FOOT EXAM [facility] Start: 05-11-2022 Hepatitis B Vaccine (1 of 1 - Risk Dialysis 4-dose series) Hepatitis B Vaccine (1 of 1 - Risk Dialysis 4-dose series) [facility] Start: 04-19-2022 Influenza vaccination INFLUENZA (#1) [facility] Start: 12-18-2021 End: 02-17-2022 Basic metabolic 2000 panel - Serum or Plasma BASIC METABOLIC PNL Lab Routine CKD (chronic kidney disease), stage IV (HCC) Expected: 12/18/2021, Expires: 02/17/2022 [facility] Work Phone: Comment on above: Expected: 12/18/2021, Expires: 2 Start: 12-18-2021 End: 02-17-2022 CBC panel - Blood by Automated count CBC Lab Routine CKD (chronic kidney disease), stage IV (HCC) Expected: 12/18/2021, Expires: 02/17/2022 [facility] Work Phone: Comment on above: Expected: 12/18/2021, Expires: 2 Start: 12-16-2021 Hemoglobin A1c/Hemoglobin.total in Blood HBA1C [facility] Start: 11-16-2021 End: 01-16-2022 Hemoglobin A1c/Hemoglobin.total in Blood HGB A1C Lab Routine Type 2 diabetes mellitus with stage 3b chronic kidney disease, without long-term current use of insulin (HCC) Expected: 11/16/2021, Expires: 01/16/2022 [facility] Work Phone: Comment on above: Expected: 11/16/2021, Expires: 2 Start: 08-19-2021 ADVANCE DIRECTIVE DISCUSSION ADVANCE DIRECTIVE DISCUSSION [facility] Start: 08-19-2021 DEPRESSION ASSESSMENT DEPRESSION ASSESSMENT [facility] Start: 08-10-2021 COVID-19 VACCINE (4 - Booster for Pfizer series) COVID-19 VACCINE (4 - Booster for Pfizer series) [facility] Start: 08-03-2021 COVID-19 VACCINE (4 - Booster for Pfizer series) COVID-19 VACCINE (4 - Booster for Pfizer series) [facility] Start: 07-06-2021 COVID-19 VACCINE (4 - Booster for Pfizer series) COVID-19 VACCINE (4 - Booster for Pfizer series) [facility] Start: 10-19-2020 BP CONTROLLED (<130/80) BP CONTROLLED (<130/80) [facility] Start: 08-28-2018 Hepatitis C antibody, confirmatory test DILATED RETINAL EXAM [facility] Start: 2005 RSV Vaccine (1 - 1-dose 60+ series) RSV Vaccine (1 - 1-dose 60+ series) [facility] Start: 1995 SHINGRIX VACCINE (1 of 2) SHINGRIX VACCINE (1 of 2) [facility] Start: 1964 SHINGRIX VACCINE (1 of 2) SHINGRIX VACCINE (1 of 2) [facility] Start: 1963 Anxiety Screening Anxiety Screening [facility] Start: 1963 Depression Screening Depression Screening [facility] Start: 1951 PNEUMOCOCCAL: 65+ (1 - PCV) PNEUMOCOCCAL: 65+ (1 - PCV) [facility] End: 06-26-2024 CBC W Auto Differential panel - Blood CBC + DIFF Lab Routine Disorder of liver Liver replaced by transplant (HCC) Every 2 months for 6 Occurrences starting 06/27/2023 until 06/26/2024 [facility] Work Phone: Comment on above: Every 2 months for 6 Occurrences startin g 06/27/2023 until 06/26/2024 End: 10-01-2024 CBC W Auto Differential panel - Blood CBC + DIFF Lab Routine Disorder of liver Liver replaced by transplant (HCC) 2x per week for 104 Occurrences starting 10/02/2023 until 10/01/2024 [facility] Work Phone: Comment on above: 2x per week for 104 Occurrences starting 10/02/2023 until 10/01/2024 Clostridioides diffi cile toxin genes [Presence] in Stool by MAYTE with probe detection C. DIFFICILE PCR Lab Routine Diarrhea, unspecified type Ordered: 05/09/2023 [facility] Work Phone: Comment on above: Ordered: 05/09/2023 End: 06-26-2024 Comprehensive metabolic 2000 panel - Serum or Plasma COMP METABOLIC PANEL Lab Routine Disorder of liver Liver replaced by transplant (HCC) Every 2 months for 6 Occurrences starting 06/27/2023 until 06/26/2024 [facility] [employer] Work Phone: Comment on above: Every 2 months for 6 Occurrences startin g 06/27/2023 until 06/26/2024 End: 10-01-2024 Comprehensive metabolic 2000 panel - Serum or Plasma COMP METABOLIC PANEL Lab Routine Disorder of liver Liver replaced by transplant (HCC) 2x per week for 104 Occurrences starting 10/02/2023 until 10/01/2024 [facility] Work Phone: Comment on above: 2x per week for 104 Occurrences starting 10/02/2023 until 10/01/2024 End: 11-29-2022 ECG COMPLETE ECG COMPLETE ECG Routine Essential hypertension Mixed hyperlipidemia 1 Occurrences starting 11/29/2021 until 11/29/2022 [facility] Work Phone: Comment on above: 1 Occurrences starting 11/29/2021 until 11/29/2022 ECG COMPLETE ECG COMPLETE ECG Routine Congestive heart failure, unspecified HF chronicity, unspecified heart failure type (HCC) 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) Thoracic aorta atherosclerosis (HCC) Encounter for screening for cardiovascular disorders Ordered: 02/25/2023 [facility] [employer] Work Phone: Comment on above: Ordered: 02/25/2023 End: 04-26-2024 ECG COMPLETE ECG COMPLETE ECG Routine Congestive heart failure, unspecified HF chronicity, unspecified heart failure type (HCC) 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) SOB (shortness of breath) 1 Occurrences starting 04/26/2023 until 04/26/2024 [facility] [employer] Work Phone: Comment on above: 1 Occurrences starting 04/26/2023 until 04/26/2024 End: 05-13-2024 ECG COMPLETE ECG COMPLETE ECG Routine ZULUAGA (dyspnea on exertion) Hypertensive kidney disease with stage 4 chronic kidney disease (HCC) Abnormal stress test 1 Occurrences starting 05/13/2023 until 05/13/2024 [facility] Work Phone: Comment on above: 1 Occurrences starting 05/13/2023 until 05/13/2024 End: 02-26-2024 Echocardiography ECHO Cardiology Routine Congestive heart failure, unspecified HF chronicity, unspecified heart failure type (HCC) 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) Thoracic aorta atherosclerosis (HCC) Encounter for screening for cardiovascular disorders 1 Occurrences starting 02/25/2023 until 02/26/2024 [facility] Work Phone: Comment on above: 1 Occurrences starting 02/25/2023 until 02/26/2024 ENTERIC BACTERIAL PA TRAVON BY PCR ENTERIC BACTERIAL PANEL BY PCR Lab Routine Diarrhea, unspecified type Ordered: 05/09/2023 [facility] Work Phone: Comment on above: Ordered: 05/09/2023 FAT, FECAL QUAL FAT, FECAL QUAL Lab Routine Diarrhea, unspecified type Ordered: 05/09/2023 [facility] Work Phone: Comment on above: Ordered: 05/09/2023 FECAL LACTOFERRIN/LEUKOCYTES FECAL LACTOFERRIN/LEUKOCYTES Lab Routine Diarrhea, unspecified type Ordered: 05/09/2023 [facility] Work Phone: Comment on above: Ordered: 05/09/2023 Giardia lamblia+Cryptosporidium sp Ag [Presence] in Stool by Immunoassay CRYPTOSPORIDIUM AND GIARDIA ANTIGENS BY EIA Microbiology Routine Diarrhea, unspecified type Ordered: 05/09/2023 [facility] Work Phone: Comment on above: Ordered: 05/09/2023 End: 06-26-2024 Phosphate [Mass/volume] in Serum or Plasma PHOSPHORUS INORGANIC Lab Routine Disorder of liver Liver replaced by transplant (HCC) Every 2 months for 6 Occurrences starting 06/27/2023 until 06/26/2024 [facility] Work Phone: Comment on above: Every 2 months for 6 Occurrences startin g 06/27/2023 until 06/26/2024 End: 10-01-2024 Phosphate [Mass/volume] in Serum or Plasma PHOSPHORUS INORGANIC Lab Routine Disorder of liver Liver replaced by transplant (HCC) 2x per week for 104 Occurrences starting 10/02/2023 until 10/01/2024 [facility] Work Phone: Comment on above: 2x per week for 104 Occurrences starting 10/02/2023 until 10/01/2024 POST VOID RESIDUAL POST VOID RES IDUAL Procedures Routine Benign prostatic hyperplasia with urinary hesitancy Screening for genitourinary condition Ordered: 11/26/2023 [facility] Work Phone: Comment on above: Ordered: 11/26/2023 End: 01-30-2023 Sirolimus [Mass/volume] in Blood SIROLIMUS/RAPAMUNE B Lab Routine Liver replaced by transplant (HCC) Once per week for 52 Occurrences starting 01/30/2022 until 01/30/2023 [facility] Work Phone: Comment on above: Once per week for 52 Occurrences startin g 01/30/2022 until 01/30/2023 Sirolimus [Mass/volu me] in Blood SIROLIMUS/RAPAMUNE B Lab Routine Liver replaced by transplant (HCC) 01/29/2022 8:34 AM EDT [facility] Work Phone: End: 06-26-2024 Sirolimus [Mass/volume] in Blood SIROLIMUS/RAPAMUNE B Lab Routine Disorder of liver Liver replaced by transplant (HCC) Every 2 months for 6 Occurrences starting 06/27/2023 until 06/26/2024 [facility] Work Phone: Comment on above: Every 2 months for 6 Occurrences startin g 06/27/2023 until 06/26/2024 End: 10-01-2024 Tacrolimus [Mass/volume] in Blood TACROLIMUS/FK-506 BL Lab Routine Disorder of liver Liver replaced by transplant (HCC) 2x per week for 104 Occurrences starting 10/02/2023 until 10/01/2024 [facility] Work Phone: Comment on above: 2x per week for 104 Occurrences starting 10/02/2023 until 10/01/2024 End: 10-23-2024 Tacrolimus [Mass/volume] in Blood TACROLIMUS/FK-506 BL Lab Routine Liver transplant status (HCC) 2x per week for 99 Occurrences starting 10/24/2023 until 10/23/2024 [facility] Work Phone: Comment on above: 2x per week for 99 Occurrences starting 10/24/2023 until 10/23/2024 URINALYSIS, REFLEX MICROSCOPIC URINALYSIS, REFLEX MICROSCOPIC Lab Routine Screening for genitourinary condition Ordered: 01/16/2024 [facility] Work Phone: Comment on above: Ordered: 01/16/2024 End: 12-07-2023 US LEG VEIN DVT UNL VAS LAB US LEG VEIN DVT [facility] LAB Vascular Lab Routine Right leg swelling 1 Occurrences starting 12/06/2022 until 12/07/2023 [facility] Work Phone: Comment on above: 1 Occurrences starting 12/06/2022 until 12/07/2023 [facility] Immunizations Immunization Date Immunization Notes Care Provider Caitlyn valerio 04-12-2023 influenza (HD-IIV4) vaccine, age 65+ yr, high dose, quadrivalent, PF (FLUZONE HIGH-DOSE) Caroline Delgado PSS [facility] 04-12-2023 influenza, high dose seasonal, preservative-free Africa Whitaker MD Work Phone: [facility] 04-12-2023 respiratory syncytia l virus (RSV) vaccine, adjuvanted (AREXVY) Africa Whitaker MD Work Phone: [facility] 04-12-2023 influenza virus vaccine, unspecified formulation Sanju Banerjee MD Work Phone: [facility] 06-25-2022 COVID-19 booster vaccine, age 12+ yr, bivalent (PFIZER-BIONTECH) Claudia Roberts PA-C Work Phone: [facility] 03-23-2022 influenza, high-dose , quadrivalent vaccine (FLUZONE HIGH DOSE QUADRIVALENT) Claudia Roberts PA-C Work Phone: [facility] 05-11-2021 COVID-19 vaccine, ag e 12+ yr (PFIZER-BIONTECH - PURPLE TOP) Card Injection [facility] Work Phone: 05-11-2021 hepatitis A and hepatitis B vaccine Card Injection [facility] Work Phone: 04-21-2021 influenza, high dose seasonal, preservative-free Card Injection [facility] 04-21-2021 influenza, high-dose , quadrivalent vaccine (FLUZONE HIGH DOSE QUADRIVALENT) Claudia Roberts PA-C Work Phone: [facility] 12-09-2020 hepatitis A and hepatitis B vaccine Card Injection [facility] Work Phone: 11-08-2020 hepatitis A and hepatitis B vaccine Card Injection [facility] Work Phone: 10-07-2020 COVID-19 vaccine, ag e 12+ yr (PFIZER-BIONTECH - PURPLE TOP) Card Injection [facility] 09-14-2020 COVID-19 vaccine, ag e 12+ yr (PFIZER-BIONTECH - PURPLE TOP) Card Injection [facility] 05-02-2020 influenza, high dose seasonal, preservative-free Card Injection [facility] 04-11-2020 influenza, high-dose , quadrivalent vaccine (FLUZONE HIGH DOSE QUADRIVALENT) Claudia Roberts PA-C Work Phone: [facility] 04-29-2019 influenza, high dose seasonal, preservative-free Card Injection [facility] 04-25-2017 influenza, high dose seasonal, preservative-free Card Injection [facility] 08-24-2016 pneumococcal polysaccharide vaccine, 23 valent Card Injection [facility] 04-13-2016 influenza, high dose seasonal, preservative-free Card Injection [facility] 04-12-2016 novel [id number], all formulations Caroline Sandy PSS [facility] 04-03-2015 influenza, high dose seasonal, preservative-free Card Injection [facility] Work Phone: 02-01-2013 pneumococcal conjuga te vaccine, 13 valent Card Injection [facility] 02-01-2013 tetanus toxoid, redu radha diphtheria toxoid, and acellular pertussis vaccine, adsorbed Card Injection [facility] 01-30-2011 pneumococcal polysaccharide vaccine, 23 valent Card Injection [facility] NEGATED: Highlighted row has not occurred!12-06-2021 COVID-19 vaccine, age 12+ yr ([employer]-BIONTCocodrilo Dog - PURPLE TOP) Ginette Coburn APRN.DIRECTOR SOFTWARE QU[employer]ANCE Work Phone: [facility] Comment on above: Deferred: Patient Re fused Payers Date Payer Category Payer Unknown [id number] 2021 Medicare MMO MEDICARE MMO MEDADVANTAGE [id number] 2021-Present [phone] [address] [place] [address] [facility] [id number] 2021 Medicare [id number] 2019 Medicare [id number] 2017 Unknown ANTHEM BLUE CROS S AND BLUE SHIELD ANTHEM MEDIBLUE ACCESS [id number] 2017-2021 [address] [place] [address] PPO [id number] 2017 Unknown ANTHEM BLUE CROS S AND BLUE SHIELD ANTHEM MEDICARE ADVANTAGE PPO [id number] 2017-2021 [address] [place] [address] PPO [id number] 1945 Unknown [id number] Social History Date Type Detail Facility Start: 01-10-2013 End: 06-06-2022 Tobacco smoking status NHIS Never smoked tobacco [facility] Work Phone: Start: 01-10-2013 End: 06-06-2022 Tobacco use and exposure Smokeless tobacco non-user [facility] Work Phone: Start: 06-17-2021 End: 10-26-2021 Alcohol intake Current non-drinker of alcohol (finding) [facility] Start: 10-26-2021 End: 12-20-2022 Alcohol intake [facility] Work Phone: Start: 01-30-2013 History SDOH Alcohol Comment last drink was in July 2012 [facility] Start: 10-28-2019 History SDOH Financial 5 [facility] Start: 10-28-2019 History SDOH Food Worry 1 [facility] Start: 10-28-2019 History SDOH Transpo rt Med 2 [facility] Start: 10-28-2019 Education 11 [facility] Start: 1945 Sex Assigned At Not on file C [facility] Start: 05-18-2021 End: 07-09-2022 Exposure to SARS-CoV-2 (event) Not sure [facility] Start: 12-20-2022 End: 02-25-2023 Tobacco use panel [facility] Work Phone: How hard is it for y ou to pay for the very basics like food, housing, medical care, and heating Not hard at all [facility] Work Phone: (I/We) worried wheth er (my/our) food would run out before (I/we) got money to buy more. Never true [facility] Work Phone: Has the [employer], or byyd threatened to shut off services in your home in past 12Mo No [facility] Work Phone: Are you now , , , , never or living with a partner? [facility] How often to you hav e a drink containing alcohol? Never [facility] How hard is it for y ou to pay for the very basics like food, housing, medical care, and heating Somewhat hard [facility] Do you feel stress - tense, restless, nervous, or anxious, or unable to sleep at night because your mind is troubled all the time - these days [OSQ] Very much [facility] (I/We) worried wheth er (my/our) food would run out before (I/we) got money to buy more. DK or Refused [facility] Start: 11-26-2023 End: 04-04-2024 Alcohol intake Ex-drinker (finding) [facility] Medical Equipment Procedure Code Equipment Code Equipment Original Text Equipment Identifier Dates Mesh Soft Prolen e 50x50 Cm - [id number] Start: 12-12-2021 [id number], [id number], [id number], [id number], [id number] Start: 09-27-2023 End: 03-11-2024 Comment on above: Use as instructed to check blood glucose level three times a day Use as directed to c heck blood glucose levels three times a day Use as directed with insulin pens, three times a day Clinical Notes 11-25-2019 to 05-24-2024 Telephone Encounter - Sanju Banerjee MD - 05/24/2024 7:55 PM EDTTelephone Encounter - Sanju Banerjee MD - 05/24/2024 7:55 PM Noé Sheehan LPN - 05/07/2024 7:13 AM EDT Note Date & Type Note Facility 05-24-2024 Telephone encount er Note This med is managed per renal. Forwarded to correct provider. [facility] 05-24-2024 Miscellaneous Notes Formattin g of this note might be different from the original. This med is managed per renal. Forwarded to correct provider. called with a refill request for sodium bicarbonate that was prescribed [facility] a [facility]. Was not on his current medication list. If he is to continue with medication please send refill to [facility]. Update when addressed. Prescription Refill Information The patient has been identified by name and date of : Yes Caregiver verified no other encounters exist for this prescription request: Yes Caregiver confirmed with patient/requestor that no other refills are due, in the near future, with this provider at this time: Yes The last office visit in the department: 04/03/24 Does the patient have a future office visit with this provider/department: Yes 06/25/24 Requested Prescriptions Pending Prescriptions Disp Refills sodium bicarbonate 650 mg tablet Sig: Take 1 tablet by mouth three times a day. Chana Chacon LPN May 23, 2024 10:29 AM documented in this encounter [facility] 05-23-2024 Telephone encount er Note called with a refill request for sodium bicarbonate that was prescribed during a [facility] admission. Was not on his current medication list. If he is to continue with medication please send refill to [facility]. Update when addressed. Prescription Refill Information The patient has been identified by name and date of : Yes Caregiver verified no other encounters exist for this prescription request: Yes Caregiver confirmed with patient/requestor that no other refills are due, in the near future, with this provider at this time: Yes The last office visit in the department: 04/03/24 Does the patient have a future office visit with this provider/department: Yes 06/25/24 Requested Prescriptions Pending Prescriptions Disp Refills sodium bicarbonate 650 mg tablet Sig: Take 1 tablet by mouth three times a day. Chana Chacon LPN May 23, 2024 10:29 AM [facility] 05-07-2024 History of Presen t illness Narrative Scan on 05/05/2024 3:40 PM by Provider, DIEGO Seo: Miscellaneous Procedures documented in this encounter [facility] 05-04-2024 Telephone encount er Note Images from the original note were not included. Received request for records from [facility]. Requesting JUSTINE notes and cardiac testing. Faxed requested records with confirmation. Lorri Amezcua Adm May 04, 2024 [facility] 05-04-2024 Miscellaneous Notes Formattin g of this note might be different from the original. Images from the original note were not included. Received request for records from [facility]. Requesting JUSTINE notes and cardiac testing. Faxed requested records with confirmation. Lorri Amezcua Adm May 04, 2024 documented in this encounter [facility] 04-21-2024 Telephone encount er Note The following approved medication requests have been transmitted electronically. Requested Prescriptions Signed Prescriptions Disp Refills tacrolimus IR (PROGRAF) 1 mg capsule 90 capsule 11 Sig: Take 2 capsules by mouth daily at 6 am AND 1 capsule daily at 6 pm. Authorizing Provider: VITO BEAUCHAMP RN [facility] 04-21-2024 Miscellaneous Notes Formattin g of this note is different from the original. The following approved medication requests have been transmitted electronically. Requested Prescriptions Signed Prescriptions Disp Refills tacrolimus IR (PROGRAF) 1 mg capsule 90 capsule 11 Sig: Take 2 capsules by mouth daily at 6 am AND 1 capsule daily at 6 pm. Authorizing Provider: VITO BEAUCHAMP RN Patient's request for medication is as follows: Requested Prescriptions Pending Prescriptions Disp Refills tacrolimus IR (PROGRAF) 1 mg capsule 90 capsule 11 Sig: Take 2 capsules by mouth daily at 6 am AND 1 capsule daily at 6 pm. Please approve the above prescription(s) to electronically send to pharmacy. Antoine Estrada RN Patient's request for medication is as follows: Requested Prescriptions Pending Prescriptions Disp Refills tacrolimus IR (PROGRAF) 1 mg capsule 90 capsule 11 Sig: Take 2 capsules by mouth daily at 6 am AND 1 capsule daily at 6 pm. 2 capsules in the morning, 1 capsule in the evening. Please approve the above prescription(s) to electronically send to pharmacy. Antoine Estrada RN Patient phones requesting refills as follows: Requested Prescriptions Pending Prescriptions Disp Refills tacrolimus IR (PROGRAF) 1 mg capsule 60 capsule 1 Si capsules in the morning, 1 capsule in the evening Please review and advise. Esperanza Maloney documented in this encounter [facility] 04-21-2024 Telephone encount er Note Patient's request for medication is as follows: Requested Prescriptions Pending Prescriptions Disp Refills tacrolimus IR (PROGRAF) 1 mg capsule 90 capsule 11 Sig: Take 2 capsules by mouth daily at 6 am AND 1 capsule daily at 6 pm. Please approve the above prescription(s) to electronically send to pharmacy. Antoine Estrada RN [facility] 04-21-2024 Telephone encount er Note Patient's request for medication is as follows: Requested Prescriptions Pending Prescriptions Disp Refills tacrolimus IR (PROGRAF) 1 mg capsule 90 capsule 11 Sig: Take 2 capsules by mouth daily at 6 am AND 1 capsule daily at 6 pm. 2 capsules in the morning, 1 capsule in the evening. Please approve the above prescription(s) to electronically send to pharmacy. Antoine Estrada RN [facility] 04-21-2024 Telephone encount er Note Patient phones requesting refills as follows: Requested Prescriptions Pending Prescriptions Disp Refills tacrolimus IR (PROGRAF) 1 mg capsule 60 capsule 1 Si capsules in the morning, 1 capsule in the evening Please review and advise. Esperanza Maloney [facility] 04-07-2024 Telephone encount er Note Received call back from Amberly who confirmed patient is taking TAC and MMF. No further needs at this time. CLIFFORD Page, RN, [facility] Liver Binder Operator [facility] 04-07-2024 Miscellaneous Notes Formattin g of this note might be different from the original. Received call back from Amberly who confirmed patient is taking TAC and MMF. No further needs at this time. CLIFFORD Page, RN, [facility] Liver Binder Operator Spoke with Amberly and patient received a medication list from him PCP and there was confusion as to why their were 2 anti-rejection medications on it. Advised MMF restarted as empiric treatment for TCMR during his last admission in November since he was on the plavix for recent cardiac stents. Advised his liver numbers normalized with increased IS. The prednisone was weaned off but he remains on tacrolimus and MMF. Amberly is not sure her mother has been giving the patient both IS medications. Per Amberly, her mother is overwhelmed with caring for the patient and Amberly thinks he is only taking the tacrolimus. She will drive over and check his pills. Suggested ways of helping her mother with care, such as making pills or setting up the pill box weekly. Additionally, suggested talking to SW at dialysis to see if there is some in home help they can get so her mother may have some respite. Amberly will let me know if patients pills are correct. CLIFFORD Page, RN, [facility] Liver Binder Operator documented in this encounter [facility] 04-07-2024 Telephone encount er Note Spoke with Amberly and patient received a medication list from him PCP and there was confusion as to why their were 2 anti-rejection medications on it. Advised MMF restarted as empiric treatment for TCMR during his last admission in November since he was on the plavix for recent cardiac stents. Advised his liver numbers normalized with increased IS. The prednisone was weaned off but he remains on tacrolimus and MMF. Amberly is not sure her mother has been giving the patient both IS medications. Per Amberly, her mother is overwhelmed with caring for the patient and Amberly thinks he is only taking the tacrolimus. She will drive over and check his pills. Suggested ways of helping her mother with care, such as making pills or setting up the pill box weekly. Additionally, suggested talking to SW at dialysis to see if there is some in home help they can get so her mother may have some respite. Amberly will let me know if patients pills are correct. CLIFFORD Page, RN, [facility] Liver Binder Operator [facility] 04-03-2024 Telephone encount er Note Called and she was at the Dialysis center- Pt goes to [facility] in [place] and I spoke to nurse, Honey, who states Dr. Cotto is managing his care. Ira Kathleen LPN [facility] 04-03-2024 Miscellaneous Notes Formattin g of this note might be different from the original. Called and she was at the Dialysis center- Pt goes to [facility] in [place] and I spoke to nurse, Honey, who states Dr. Cotto is managing his care. Ira Kathleen LPN Left message for patient's Brittani to contact the office. Terra Dang MA Contact (Brittani) and find out where Isaias is getting his dialysis completed. Then contact them and find out who is writing the orders for his dialysis and managing his care. documented in this encounter [facility] 04-03-2024 Telephone encount er Note Left message for patient's Brittani to contact the office. Terra Dang MA [facility] 04-03-2024 Telephone encount er Note Contact (Brittani) and find out where Isaias is getting his dialysis completed. Then contact them and find out who is writing the orders for his dialysis and managing his care. [facility] 04-03-2024 Instructions Sanju Banerjee MD - 04/03/2024 11:34 AM EDT Please restart the long acting lantus at 4 units once a day. Check Fasting blood sugars every other day alternating with 2 hrs post dinner and give Dr. Banerjee an update on numbers after he has been on the insuline 4 units a day for a week. documented in this encounter [facility] 04-03-2024 History of Presen t illness Narrative Chief Complaint Patient presents with: Follow Up HPI Isaias Sanon is a 79 year old male who presents here today for 3 month follow up. Patient with hx of CAD, DM, HTN, hyperlipidemia, GERD, CKD, Obesity, previous liver transplant and those as below. Patient had been placed on prednisone back in December and BS's started to go up. He was placed on long acting and short acting insulin. At appt on 01/10/2024 I increased his long acting insulin and stopped the short acting insuline prior to meals. Patient's stopped the lantus about 3 weeks ago and never contacted office. She thought his sugars were getting to low. Says FBS's were running low 100's. Since being off the lantus his FBS's have been 120'-130's and evening BS's have been 150's. Patient is getting set up to have a permanent fistula placed for chronic dialysis. Patient saw Nephrology 01/16/2024 and no f/u appts were made and says they were told to f/u as needed so at this point has no renal f/u for management of his dialysis. Patient did not want to see nancy so that appt was cancelled. He was to f/u with GI in December but appears that appt was cancelled and his is not sure why. Has f/u with liver transplant in 08/2024. His liver functions had been back to normal since 12/16/2023. Patient has not had any fevers, chest pain or increased leg edema. Says today the leg swelling is down. No increased shortness of breath. Past medical history, appointments, medications, allergies reviewed. 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 Denies current abdominal tenderness, and no large volume ascites with need for paracentesis 02/06/2013. Plan: - ? Diuretics - will D/W nephrology 06/19/2016: Balance problem 10/26/2023: Benign prostatic hyperplasia with urinary hesitancy 01/22/2020: Bilateral leg edema No date: BRVO (branch retinal vein occlusion) Comment: OS No date: Cataract of both eyes No date: Central retinal vein occlusion with macular edema of right eye 06/16/2020: Chronic lumbar pain 12/13/2017: Chronic pain of both ankles 06/19/2016: CKD (chronic kidney disease) stage 3, GFR 30-59 ml/min ([facility]) Comment: Seeing Dr. Vipul Perez [facility] 06/19/2016: CKD (chronic kidney disease) stage 4, GFR 15-29 ml/min ([facility]) Comment: Seeing Dr. 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 Plan: Continue pantoprazole 40mg qday. 10/19/2016: Elevated prostate specific antigen (PSA) Comment: Normal 10/2017 with free PSA at 44% 12/05/2023: ESRD (end stage renal disease) ([facility]) 05/18/2014: Essential hypertension Comment: 11/08/2014: Home BP Cuff Validated. Home BP: 167/94 pulse 79. Office BP: 157/91 pulse 76. 10/26/2023: Fecal incontinence 08/24/2015: Gastroesophageal reflux disease without esophagitis 01/13/2013: GIB (gastrointestinal bleeding) Comment: Patient presents with three episodes of BRBPR onset around 2pm 02/06/2013. He endorses a history of BRBPR during an admission at [facility] in December 2012 for which he states no workup or colonoscopy was performed. During his last admission at [facility] he endorses having passed old blood , and underwent EGD 01/31/13 showing a small polyp/hypertrophied fold at the cardia, severe portal hypertensive gastropathy in the entire stomach, and multiple superficial duodenal ulcers. EGD EUS performed 02/03/13 showed several portal hypertensive gastropathy, and normal endoscopic ultrasound examination of the previous area of concern (polyp vs. gastric fold). He was started on PPI BID and discharged 02/04/13 at which time hemoglobin was 8.6. In the ED 02/06/13, Hgb is 8.4, Hct 24.4, plt 41. Last colonoscopy was 2 years ago per patient, and he reports normal findings to be repeated in 2014. Etiologies of current episode includes internal hemorrhoids (no external hemorrhoids seen on examination), diverticular bleeding, AVM, varice 04/06/2019: [place] filter in place 08/06/2023: H/O right coronary artery stent placement No date: Hemodialysis-associated hypotension No date: History of alcohol abuse Comment: Quit 2011 No date: History of cirrhosis of liver Comment: Secondary to alcohol abuse and hemochromatosis. Sees Dr. Doss (at [facility]): Secondary to alcohol abuse and hemochromatosis, currently on transplant list. MELD Score: 35 Plan: - continue home medications: nadolol, norfloxacin, zinc, lactulose, rifaximin, folic acid. - awaiting transplant 04/06/2019: History of deep venous thrombosis (DVT) of distal vein of right lower extremity Comment: To be on [facility] coumadin 02/06/2013: History of encephalopathy Comment: Secondary to cirrhosis. Currently alert, oriented x3, no signs of decompensated encephalopathy. Plan: - continue home regimen of lactulose, rifaximin and zinc 08/24/2015: History of hemochromatosis Comment: Has not been an issue since liver transplant. 01/13/2013: Hyperbilirubinemia Comment: No date: Hypertensive retinopathy Comment: mild No date: ICH (intracerebral hemorrhage) (HCC) 06/01/2014: Imbalance Comment: Noted at PT eval on 05/31/2014. 04/07/2014: Incisional hernia 04/07/2014: Liver transplanted (HCC) 06/06/2022: Living will in place Comment: DPA: Brittani () 10/28/2019: Lupus anticoagulant syndrome (HCC) 12/07/2023: Malnutrition of moderate degree (HCC) 05/18/2021: Medicare annual wellness visit, subsequent Comment: Medicare part B: Not able to find Last done: 05/18/2021 06/23/2014: Mixed hyperlipidemia 10/27/2019: Obesity, Class I, BMI 30-34.9 11/26/2013: Osteopenia 10/21/2017: Other proteinuria Comment: Seeing renal 10/26/2023: Physical debility 05/18/2021: Prostate disorder 05/02/2023: Reactive depression Comment: Sertraline started 04/2023 No date: Retinal edema 08/06/2023: S/P angioplasty with stent 12/13/2021: S/P hernia repair 08/06/2023: S/P liver transplant (HCC) 10/19/2019: Secondary hyperparathyroidism of renal origin (HCC) 10/12/2021: Thoracic aorta atherosclerosis (HCC) 05/18/2014: Thrombocytopenia (HCC) No date: Tributary (branch) retinal vein occlusion, left eye, with macular edema 10/26/2023: Urge incontinence of urine 05/18/2014: Vertigo No date: Vitreous degeneration Previous Surgical History PAST SURGICAL HISTORY 02/15/2013: APPENDECTOMY HX 04/18/2023: AVASTIN (BEVACIZUMAB) 1.25MG INTRAVITREAL INJECTION OD (RIGHT EYE); Right Comment: LAST 04/04/2016: AVASTIN (BEVACIZUMAB) 1.25MG INTRAVITREAL INJECTION OD (RIGHT EYE); Right 02/15/2013: CHOLECYSTECTOMY HX 02/08/2013: COLONOSCOPY Comment: repeat 10 yrs 04/07/2014: EYLEA (AFLIBERCEPT) 2MG INTRAVITREAL INJECTION OD (RIGHT EYE); Right Comment: intravitreal injection, Eylea OD 09/13/2016: FECAL OCCULT BLOOD TEST Comment: negative 01/2013: LIVER TRANSPLANT HX 02/13/2013: MIDLINE INSERTION/CONSULT Comment: No date: PAST SURGICAL HISTORY OF Comment: Tooth extraction 02/15/2013: PAST SURGICAL HISTORY OF Comment: liver transplant 2004: PAST SURGICAL HISTORY OF Comment: vein stripping Family History FAMILY HISTORY Problem Relation Age of Onset other (MVA) Mother killed other (mva) Father killed other (hemachromatosis) Sister of breast ca at age 75 No Known Problems Sister COPD Sister other (hemachromatosis) Brother does not have any liver problems other (Bone Cancer) Brother No Known Problems Brother No Known Problems Maternal Grandmother No Known Problems Maternal Grandfather No Known Problems Paternal Grandmother No Known Problems Paternal Grandfather No Ocular Disease No Family History nothing known of Anesthesia Problems No Family History Patient Allergies ALLERGIES Allergen Reactions Aldactone [Spironol* Other: See Comments Hyperkalemia Seasonal Allergies Cough Sneezing and watering eyes Current Medications Current Outpatient Medications on File Prior to Visit Medication Sig tamsulosin (FLOMAX) 0.4 mg Take 1 capsule by mouth daily at bedtime. midodrine (PROAMITINE) 5 mg tablet Take 5 mg by mouth once daily. atorvastatin (LIPITOR) 40 mg tablet Take 1 tablet by mouth daily at bedtime. carvedilol (COREG) 25 mg tablet Take 1 tablet by mouth two times a day. (Patient taking differently: Take 12.5 mg by mouth two times a day.) mycophenolate mofetil (CELLCEPT) 250 mg capsule Take 2 capsules by mouth two times a day. dilTIAZem CD (CARDIZEM CD, CARTIA XT) 240 mg 24 hr capsule Take 1 capsule by mouth once daily. hydrALAZINE (APRESOLINE) 50 mg tablet take 1 tablet by mouth every 12 hours (Patient not taking: Reported on 02/18/2024) insulin glargine (LANTUS SOLOSTAR U-100 INSULIN) 100 unit/mL (3 mL) Inject 6 Units subcutaneously every 24 hours. blood sugar diagnostic test strip Use with blood glucose test 2 times daily, Insulin Dep? Yes Lancets Use with blood glucose test 2 times daily. Insulin Dep? Yes alcohol swabs Use with blood glucose test 2 times daily. Insulin Dep? Yes glucose 4 gram chewable tablet Take 4 tablets by mouth as needed for low blood sugar. phosphorus (PHOSPHA 250 NEUTRAL) 250 mg tablet Take 1 tablet by mouth two times a day. tacrolimus IR (PROGRAF) 1 mg capsule 2 capsules in the morning, 1 capsule in the evening torsemide (DEMADEX) 20 mg tablet Take 2 tablets by mouth once daily. sertraline (ZOLOFT) 25 mg tablet Take 1 tablet by mouth once daily. pantoprazole DR (PROTONIX) 40 mg tablet Take 1 tablet by mouth once daily. b complex, c, folic acid 1 mg renal vitamins (NEPHROCAPS) 1 mg capsule Take 1 capsule by mouth once daily. blood sugar diagnostic ([employer] VERIO TEST STRIPS) test strip Use as instructed to check blood glucose level three times a day aspirin 81 mg chewable tablet Take 1 tablet by mouth once daily. clopidogrel (PLAVIX) 75 mg tablet Take 1 tablet by mouth once daily. Blood Pressure Monitor 1 Each twice daily. Cholecalciferol, Vitamin D3, 5,000 unit tab Take 1 tablet by mouth once daily. Current Facility-Administered Medications on File Prior to Visit Medication perflutren lipid microspheres 1.3 mL in NaCl (PF) 0.9% 10 mL injection (DEFINITY) sodium chloride 0.9 % (flush) 10 mL (BD POSIFLUSH) Social History Social History Tobacco Use Smoking status: Never Smokeless tobacco: Never Vaping Use Vaping Use: Never used Substance Use Topics Alcohol use: Not Currently Comment: last drink was in July 2012 Drug use: Never Review of Symptoms REVIEW OF SYSTEMS See HPI EXAM: BP 118/74 (BP Site: Left Arm, BP Position: Sitting, BP Cuff Size: Regular Adult) Pulse 60 Resp 16 Wt 74.4 kg (164 lb) BMI 25.69 kg/m Last 5 Encounter Wt Readings: Date: Wt: 04/03/2024 74.4 kg (164 lb) 01/16/2024 79.4 kg (175 lb) 01/10/2024 81.2 kg (179 lb) 12/20/2023 82.1 kg (181 lb) 12/04/2023 77.2 kg (170 lb 3.1 oz) General Appearance: Well appearing, alert, in no acute distress, well-hydrated, well nourished. Looks like his normal self. Neck: Supple, no adenopathy; thyroid symmetric, normal size, no bruits. Lungs: Lungs clear to auscultation. No wheezing, rhonchi, rales.. Heart: RRR without murmur, gallop, or rubs. No ectopy. Extremities: No deformities, edema. Good capillary refill. Has chronic venous stasis changes. Health Maintenance List Depression Screening Never done Anxiety Screening Never done Hepatitis B Vaccine(1 of 1 - Risk Dialysis 4-dose series) due on 05/11/2022 Advance Directive Discussion due on 08/19/2023 DTaP,Tdap,Td Vaccine(2 - Td or Tdap) due on 06/20/2024 Shingrix Vaccine(1 of 2) due on 06/20/2024 Covid-19 Vaccine( season) due on 10/25/2024 Influenza Vaccine(1) due on 04/19/2024 HbA1C due on 06/24/2024 Dilated Retinal Exam due on 07/24/2024 Diabetic Foot Exam due on 09/18/2024 LDL Cholesterol due on 12/22/2024 Annual PCP Team Chronic Disease Visit due on 01/09/2025 BP Controlled (<130/80) due on 01/15/2025 Serum Creatinine due on 03/23/2025 Hemoglobin/Hematocrit due on 03/23/2025 RSV Vaccine Completed Pneumococcal Vaccine: 65+ Completed HPV Vaccine Aged Out Colorectal Cancer Screening Discontinued Data reviewed A/P ASSESSMENT/PLAN: 1. Type 2 diabetes mellitus with chronic kidney disease on chronic dialysis, with long-term current use of insulin (HCC) - ICD9: 250.40, 585.9, V45.11, V58.67, ICD10: E11.22, N18.6, Z99.2, Z79.4 (primary diagnosis) - will have patient go back on the lantus at just 4 units a day. Advised in the future not to stop meds without getting input from the provider managing them. - to let me know what FBS' have been running in a week and 2 Hr's after a meal. 2. Liver transplant status (HCC) - ICD9: V42.7, ICD10: Z94.4 - patient does not have f/u with transplant team till 08/2024 but gets labs regularly. Appears he is not longer in rejection and liver functions are back in normal range. 3. Appetite loss - ICD9: 783.0, ICD10: R63.0 - discussed adding on Remeron 15 mg QHS and patient would like to hold off for now. 4. CKD (chronic kidney disease) stage 5, GFR less than 15 ml/min (HCC) - ICD9: 585.5, ICD10: N18.5 - patient on dialysis 3 days a week. - message sent to renal regarding need for f/u care on a routine basis. Patient to keep f/u with me in Jun for medicare extensive. I spent a total of 42 minutes on the date of the service which included preparing to see the patient, [id number] patient care, completing clinical documentation, performing a medically appropriate examination, counseling and educating the patient/family/caregiver and ordering medications, tests, or procedures. Sanju Banerjee MD documented in this encounter [facility] 03-31-2024 Telephone encount er Note Prescription Refill Information The patient has been identified by name and date of : Yes Caregiver verified no other encounters exist for this prescription request: Yes Caregiver confirmed with patient/requestor that no other refills are due, in the near future, with this provider at this time: Yes The last office visit in the department: 12/20/2023 Does the patient have a future office visit with this provider/department: Yes Requested Prescriptions Pending Prescriptions Disp Refills tamsulosin (FLOMAX) 0.4 mg 90 capsule 1 Sig: Take 1 capsule by mouth daily at bedtime. Heather Perry March 31, 2024 10:53 AM [facility] 03-31-2024 Miscellaneous Notes Formattin g of this note is different from the original. Prescription Refill Information The patient has been identified by name and date of : Yes Caregiver verified no other encounters exist for this prescription request: Yes Caregiver confirmed with patient/requestor that no other refills are due, in the near future, with this provider at this time: Yes The last office visit in the department: 12/20/2023 Does the patient have a future office visit with this provider/department: Yes Requested Prescriptions Pending Prescriptions Disp Refills tamsulosin (FLOMAX) 0.4 mg 90 capsule 1 Sig: Take 1 capsule by mouth daily at bedtime. Heather Perry March 31, 2024 10:53 AM documented in this encounter [facility] 03-03-2024 Telephone encount er Note noted [facility] 03-03-2024 Miscellaneous Notes Formattin g of this note might be different from the original. noted Luciana with [facility] calls to report pt requested to be discharged from . Luciana reports pt has not met his goals but pt states it is too much for him having people in and out of his home and doing dialysis. Luciana reports pt is being discharged from [facility]. Lorena Hernandez LPN documented in this encounter [facility] 03-03-2024 Telephone encount er Note Luciana with [facility] calls to report pt requested to be discharged from . Luciana reports pt has not met his goals but pt states it is too much for him having people in and out of his home and doing dialysis. Luciana reports pt is being discharged from [facility]. Lorena Hernandez LPN [facility] 02-18-2024 Telephone encount er Note Pts called and is notified of providers message and instructions. She voices understanding. Medication list updated, please sign. Mariana Gomes RN [facility] 02-18-2024 Miscellaneous Notes Formattin g of this note might be different from the original. Pts called and is notified of providers message and instructions. She voices understanding. Medication list updated, please sign. Mariana Gomes RN Advise Brittani that I have seen kidney doctors use midodrine to help keep pressures up. I'm not against it. Pt's Brittani called back to report the pharmacy did not receive a prescription for midodrine 5mg, she is going to call the prescribing dr regarding this. Brittani would like pcp's opinion of pt starting midodrine? What are his thoughts? Bryanna Torres LPN Pts called in and reports Pt sees Dr Horne ph [phone] for dialysis. She states his nurse told her that since the Pts BP has been going so low this provider wanted to change his medications. She said when they have been doing dialysis they haven't been removing any fluid, just removing the toxins from the blood. She states he wanted to stop the Pts Hydralazine 50 mg every 12 hours. Then he wanted to decrease his Coreg from 25 mg BID to 12.5 mg BID. Then he wanted to add Midodrine 5 mg daily. She thinks this medication was called in to [facility] in [place]. Pts is going to call the pharmacy to make sure it was. She states she didn't give him the Hydralazine today and only gave him half of the Coreg. Please call and advise. documented in this encounter [facility] 02-18-2024 Telephone encount er Note Advise Brittani that I have seen kidney doctors use midodrine to help keep pressures up. I'm not against it. [facility] 02-18-2024 Telephone encount er Note Pt's Brittani called back to report the pharmacy did not receive a prescription for midodrine 5mg, she is going to call the prescribing dr regarding this. Brittani would like pcp's opinion of pt starting midodrine? What are his thoughts? Bryanna Torres LPN [facility] 02-18-2024 Telephone encount er Note Pts called in and reports Pt sees Dr Horne ph [phone] for dialysis. She states his nurse told her that since the Pts BP has been going so low this provider wanted to change his medications. She said when they have been doing dialysis they haven't been removing any fluid, just removing the toxins from the blood. She states he wanted to stop the Pts Hydralazine 50 mg every 12 hours. Then he wanted to decrease his Coreg from 25 mg BID to 12.5 mg BID. Then he wanted to add Midodrine 5 mg daily. She [facility] [place]. Pts is going to call the pharmacy to make sure it was. She states she didn't give him the Hydralazine today and only gave him half of the Coreg. Please call and advise. [facility] 02-15-2024 Telephone encount er Note calling with request for medication/refill: Patient/caregiver requesting refill of atorvastatin (90 day supply) and carvedilol (180 day supply) be called to [facility] pharmacy at [phone]. and Do you have enough medication to last until the office reopens? Yes. . denies any new or worsening symptoms of which a provider is not aware: Yes. Allergies reviewed: Yes ALLERGIES Allergen Reactions Aldactone [Spironol* Other: See Comments Hyperkalemia Seasonal Allergies Cough Sneezing and watering eyes [facility] 02-15-2024 Miscellaneous Notes Formattin g of this note is different from the original. calling with request for medication/refill: Patient/caregiver requesting refill of atorvastatin (90 day supply) and carvedilol (180 day supply) be called to [facility] pharmacy at [phone]. and Do you have enough medication to last until the office reopens? Yes. . denies any new or worsening symptoms of which a provider is not aware: Yes. Allergies reviewed: Yes ALLERGIES Allergen Reactions Aldactone [Spironol* Other: See Comments Hyperkalemia Seasonal Allergies Cough Sneezing and watering eyes documented in this encounter [facility] 02-12-2024 Telephone encount er Note The following approved medication requests have been transmitted electronically. Requested Prescriptions Signed Prescriptions Disp Refills mycophenolate mofetil (CELLCEPT) 250 mg capsule 120 capsule 11 Sig: Take 2 capsules by mouth two times a day. Authorizing Provider: NATHALY NEVILLE RN [facility] 02-12-2024 Miscellaneous Notes Formattin g of this note is different from the original. The following approved medication requests have been transmitted electronically. Requested Prescriptions Signed Prescriptions Disp Refills mycophenolate mofetil (CELLCEPT) 250 mg capsule 120 capsule 11 Sig: Take 2 capsules by mouth two times a day. Authorizing Provider: NATHALY NEVILLE RN Patient's request for medication is as follows: Requested Prescriptions Pending Prescriptions Disp Refills mycophenolate mofetil (CELLCEPT) 250 mg capsule 120 capsule 11 Sig: Take 2 capsules by mouth two times a day. Please approve the above prescription(s) to electronically send to pharmacy. Antoine Estrada RN Patient's daughter called in for Isaias Sanon called in regards to Cellcept is needed today and requests this be sent to the pharmacy [facility], as he has none left. Vivian Gutierrez Patient phones requesting refills as follows: Requested Prescriptions Pending Prescriptions Disp Refills mycophenolate mofetil (CELLCEPT) 250 mg capsule 120 capsule 0 Sig: Take 2 capsules by mouth two times a day. Please review and advise. Pauly Henley documented in this encounter [facility] 02-12-2024 Telephone encount er Note Patient's request for medication is as follows: Requested Prescriptions Pending Prescriptions Disp Refills mycophenolate mofetil (CELLCEPT) 250 mg capsule 120 capsule 11 Sig: Take 2 capsules by mouth two times a day. Please approve the above prescription(s) to electronically send to pharmacy. Antoine Estrada RN [facility] 02-12-2024 Telephone encount er Note Patient's daughter called in for Isaias Sanon called in regards to Cellcept is needed today and requests this be sent to the pharmacy [facility], as he has none left. Vivian Gutierrez [facility] 02-11-2024 Telephone encount er Note Patient phones requesting refills as follows: Requested Prescriptions Pending Prescriptions Disp Refills mycophenolate mofetil (CELLCEPT) 250 mg capsule 120 capsule 0 Sig: Take 2 capsules by mouth two times a day. Please review and advise. Pauly Henley [facility] 02-11-2024 Telephone encount er Note Patient notified and verbalized understanding Peace Leslie MA [facility] 02-11-2024 Miscellaneous Notes Formattin g of this note might be different from the original. Patient notified and verbalized understanding Peace Leslie MA I do not prescribe his Cellcept. This comes from his liver transplant team. Originally prescribed by Dr. Ornelas. Prescription Refill Information The patient has been identified by name and date of : Yes Caregiver verified no other encounters exist for this prescription request: Yes Caregiver confirmed with patient/requestor that no other refills are due, in the near future, with this provider at this time: Yes The last office visit in the department: 01/10/2024 Does the patient have a future office visit with this provider/department: Yes, 04/03/2024 Requested Prescriptions Pending Prescriptions Disp Refills mycophenolate mofetil (CELLCEPT) 250 mg capsule 120 capsule 0 Sig: Take 2 capsules by mouth two times a day. HATTIE Rodriguez February 11, 2024 10:47 AM Patient requesting the following medication that is . mycophenolate mofetil (CELLCEPT) 250 mg capsule () PHARMACY: [facility] documented in this encounter [facility] 02-11-2024 Telephone encount er Note I do not prescribe his Cellcept. This comes from his liver transplant team. [facility] 02-11-2024 Telephone encount er Note Originally prescribed by Dr. Ornelas. Prescription Refill Information The patient has been identified by name and date of : Yes Caregiver verified no other encounters exist for this prescription request: Yes Caregiver confirmed with patient/requestor that no other refills are due, in the near future, with this provider at this time: Yes The last office visit in the department: 01/10/2024 Does the patient have a future office visit with this provider/department: Yes, 04/03/2024 Requested Prescriptions Pending Prescriptions Disp Refills mycophenolate mofetil (CELLCEPT) 250 mg capsule 120 capsule 0 Sig: Take 2 capsules by mouth two times a day. HATTIE Rodriguez February 11, 2024 10:47 AM [facility] 02-11-2024 Telephone encount er Note Patient requesting the following medication that is . mycophenolate mofetil (CELLCEPT) 250 mg capsule () PHARMACY: [facility]. [facility] 02-10-2024 Telephone encount er Note Daughter contacted and letter mailed. Terra Dang MA [facility] 02-10-2024 Miscellaneous Notes Formattin g of this note might be different from the original. Daughter contacted and letter mailed. Terra Dang MA Letter ready Spoke with Cristiana and she indicated that there CO-[facility] in [facility] gives away 60 air conditioners to residents. If residents have health issue that can potentially move them up the list if they have a letter from their doctor stating the significant health issues involved. Terra Dang MA Let daughter know that scripts for air conditions are only indicated for patient's with a diagnosis of COPD/Emphysema or asthma. Though her day has some significant health issues they do not meet the criteria for air conditioners. Mine is calling Sanju Banerjee MD today with concern regarding New Rx Request. Patient's daughter stated her parents do not have air conditioning and there is a company offering to provider air conditioners to those with health issues. She is asking if she can have an Rx written for the air conditioner with her dad's health conditions to expedite this today. Please call either Mine or Isaias's when the Rx is ready. Patient has been identified by name and birthdate. Duration of symptoms: N/A Person calling: daughter: Mine [phone] Was an appointment scheduled: No Closing statement: Results or non-symptom based questions: Thank you for calling [facility], your call will be returned within the next business day. Lizet Turner documented in this encounter [facility] 02-10-2024 Telephone encount er Note Letter ready [facility] 02-07-2024 Telephone encount er Note Spoke with Cristiana and she indicated that there [employer] in [facility] gives away 60 air conditioners to residents. If residents have health issue that can potentially move them up the list if they have a letter from their doctor stating the significant health issues involved. Terra Dang MA [facility] 02-07-2024 Telephone encount er Note Let daughter know that scripts for air conditions are only indicated for patient's with a diagnosis of COPD/Emphysema or asthma. Though her day has some significant health issues they do not meet the criteria for air conditioners. [facility] 02-06-2024 Telephone encount er Note Mine is calling Sanju Banerjee MD today with concern regarding New Rx Request. Patient's daughter stated her parents do not have air conditioning and there is a company offering to provider air conditioners to those with health issues. She is asking if she can have an Rx written for the air conditioner with her dad's health conditions to expedite this today. Please call either Mine or Isaias's when the Rx is ready. Patient has been identified by name and birthdate. Duration of symptoms: N/A Person calling: daughter: Mine [phone] Was an appointment scheduled: No Closing statement: Results or non-symptom based questions: Thank you for calling [facility], your call will be returned within the next business day. Lizet Turner [facility] 02-04-2024 Telephone encount er Note Prescription Refill Information The patient has been identified by name and date of : Yes Caregiver verified no other encounters exist for this prescription request: Yes Caregiver confirmed with patient/requestor that no other refills are due, in the near future, with this provider at this time: Yes The last office visit in the department: 01-10-24 Does the patient have a future office visit with this provider/department: Yes Requested Prescriptions Pending Prescriptions Disp Refills dilTIAZem CD (BATSHEVAZEM CD, CARTIA XT) 240 mg 24 hr capsule 90 capsule 3 Sig: Take 1 capsule by mouth once daily. Rhianna Shannon February 04, 2024 8:38 AM [facility] 02-04-2024 Miscellaneous Notes Formattin g of this note is different from the original. Prescription Refill Information The patient has been identified by name and date of : Yes Caregiver verified no other encounters exist for this prescription request: Yes Caregiver confirmed with patient/requestor that no other refills are due, in the near future, with this provider at this time: Yes The last office visit in the department: 01-10-24 Does the patient have a future office visit with this provider/department: Yes Requested Prescriptions Pending Prescriptions Disp Refills dilTIAZem CD (CARDIZEM CD, CARTIA XT) 240 mg 24 hr capsule 90 capsule 3 Sig: Take 1 capsule by mouth once daily. Rhianna Shannon February 04, 2024 8:38 AM documented in this encounter [facility] 01-22-2024 History of Presen t illness Narrative Patient's home health 485 form / care plan for certification period 01/15/2024 to 03/14/2024 reviewed and signed. Relevant medical records were reviewed. 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 Creat 2.5-3 PMH OLT 2012 hemochromatosis/EtOH -RAPA DVT ICB 2019 CAD PCI 2022 Last seen 07/11 since then patient has had several admissions to different hospitals last 2 admissions to [facility] where for volume overload and he was required to start renal replacement therapy as he did not respond to outpatient diuresis he has been on renal replacement therapy thinks since 10/18/23 Last admission at the end of November was due to hypercalcemia thought to be related to vitamin D intoxication. He continues to dialyze 3 times a week close to home. He is unclear how much fluid is taken of each dialysis session. He did not bring any of his labs from there. Medications were reviewed. He overall feels better his mental status has improved since hide the hypercalcemia was resolved. Would like to know if he can come off dialysis. PE: BP 96/55 (BP Site: Left Arm, BP Position: Sitting, BP Cuff Size: Regular Adult) Pulse 76 Ht 170.2 cm (5' 7 ) Wt 79.4 kg (175 lb) BMI 27.41 kg/m Average BP: 96/55 Average Pulse: 76 beats/min Standing BP : (Patient unable to stand) GENERAL: Nad NECK: visible neck veins LYMPH: non LUNGS: few basilar rales CV: rrr distant ABD:soft ,nontender EXT: no edema Creatinine (mg/dL) Date Value 12/30/2023 3.73 12/23/2023 3.89 12/16/2023 4.34 10/07/2021 2.79 09/25/2021 2.87 09/11/2021 2.86 BUN (mg/dL) Date Value 12/30/2023 39 12/23/2023 41 12/16/2023 47 10/07/2021 43 09/25/2021 40 09/11/2021 39 Estimated Glomerular Filtration Rate (mL/min/1.73m ) Date Value 12/30/2023 16 12/23/2023 15 12/16/2023 13 CO2 (mmol/L) Date Value 12/30/2023 26 12/23/2023 27 12/16/2023 26 10/07/2021 22 09/25/2021 21 09/11/2021 23 Potassium (mmol/L) Date Value 12/30/2023 4.2 12/23/2023 3.8 12/16/2023 4.3 10/07/2021 5.8 09/25/2021 4.8 09/11/2021 5.1 Tacrolimus/FK506 (ng/mL) Date Value 12/30/2023 7.7 12/23/2023 5.4 12/16/2023 6.3 10/07/2021 4.4 09/25/2021 5.1 09/11/2021 4.5 Sirolimus/Rapamune (ng/mL) Date Value 08/17/2021 7.3 06/17/2021 8.3 04/17/2021 7.9 Rapamune/Sirolimus (ng/mL) Date Value 09/03/2023 9.2 08/30/2023 4.5 08/29/2023 4.5 Hemoglobin (g/dL) Date Value 12/30/2023 7.9 12/23/2023 7.6 12/16/2023 7.7 10/07/2021 9.5 09/25/2021 10.2 09/11/2021 9.6 Platelet Count (k/uL) Date Value 12/30/2023 100 12/23/2023 120 12/16/2023 138 10/07/2021 159 09/25/2021 138 09/11/2021 151 WBC (k/uL) Date Value 12/30/2023 5.49 12/23/2023 7.35 12/16/2023 7.77 10/07/2021 6.92 09/25/2021 6.06 09/11/2021 5.91 Albumin (g/dL) Date Value 12/30/2023 3.3 12/23/2023 3.2 12/16/2023 3.3 10/07/2021 3.9 09/25/2021 3.8 09/11/2021 3.9 Phosphorus (mg/dL) Date Value 12/30/2023 4.6 12/23/2023 3.9 12/12/2023 2.3 10/07/2021 3.4 09/25/2021 4.0 09/11/2021 4.5 Assessment and Plan: Probably end-stage renal disease in the setting of chronic calcineurin inhibitor exposure after liver transplant and significant cardiorenal-like physiology. Patient has been on dialysis since October 17 with no evidence of recovery. I do not have any details about his dialysis management I will try to contact Dr. Horne, to verify that he is end-stage renal disease. Rn Security to get permanent access Noman Fontenot MD This note was partially generated using [employer] voice recognition system, and there may be some incorrect words, spellings, and punctuation that were not noted in checking the note before saving. Parts of A/P may have been copied from prior entry and amended as needed. It reflects full evaluations and pathophysiology processes involved. I spent a total of 45 minutes on the date of the service which included preparing to see the patient, [id number] patient care, completing clinical documentation, obtaining and/or reviewing separately obtained history, performing a medically appropriate examination, and counseling and educating the patient/family/caregiver. Visit [facility]X Inherent E&M Associated with [facility] (G2211) (N18.6, Z99.2) ESRD on dialysis (HCC) (primary encounter diagnosis) (Z94.4) Liver transplanted (HCC) documented in this encounter [facility] 01-10-2024 Instructions Sanju Banerjee MD - 01/10/2024 11:54 AM EDT Stop the Insulin Lispro with meals Continue the insulin Glargine and increase to 6 units a day documented in this encounter [facility] 01-10-2024 History of Presen t illness Narrative Chief Complaint Patient presents with: Follow Up HPI Isaias Sanon is a 78 year old male who presents here today for 3 week follow up on sugars. FBS 140 this morning Ranging from 148-275, Depends on what he has ate. Does like the cookies. Patient is no longer on prednisone. Prior to the insuline he was not on any diabetic meds. A1c on 12/23/23 was 5.7% Patient had an appt with Geriatrics for 01/14/2024 and cancelled to see if they can [facility] on 01/16/[facility]24. Past medical history, appointments, medications, allergies reviewed. 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 Denies current abdominal tenderness, and no large volume ascites with need for paracentesis 02/06/2013. Plan: - ? Diuretics - will D/W nephrology Balance problem 06/19/2016 Benign prostatic hyperplasia with urinary hesitancy 10/26/2023 Bilateral leg edema 01/22/2020 BRVO (branch retinal vein occlusion) OS Cataract of both eyes Central retinal vein occlusion with macular edema of right eye Chronic lumbar pain 06/16/2020 Chronic pain of both ankles 12/13/2017 CKD (chronic kidney disease) stage 3, GFR 30-59 ml/min ([facility]) 06/19/[address] Vipul Perez [facility] CKD (chronic kidney disease) stage 4, GFR 15-29 ml/min ([facility]) 06/19/[address] 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 Plan: Continue pantoprazole 40mg qday. Elevated prostate specific antigen (PSA) 10/19/2016 Normal 10/2017 with free PSA at 44% Essential hypertension 05/18/2014 11/08/2014: Home BP Cuff Validated. Home BP: 167/94 pulse 79. Office BP: 157/91 pulse 76. Fecal incontinence 10/26/2023 Gastroesophageal reflux disease without esophagitis 08/24/2015 GIB (gastrointestinal bleeding) 01/13/2013 Patient presents with three episodes of BRBPR onset around 2pm 02/06/2013. He endorses a history of BRBPR during an admission at [facility] in December 2012 for which he states no workup or colonoscopy was performed. During his last admission at [facility] he endorses having passed old blood , and underwent EGD 01/31/13 showing a small polyp/hypertrophied fold at the cardia, severe portal hypertensive gastropathy in the entire stomach, and multiple superficial duodenal ulcers. EGD EUS performed 02/03/13 showed several portal hypertensive gastropathy, and normal endoscopic ultrasound examination of the previous area of concern (polyp vs. gastric fold). He was started on PPI BID and discharged 02/04/13 at which time hemoglobin was 8.6. In the ED 02/06/13, Hgb is 8.4, Hct 24.4, plt 41. Last colonoscopy was 2 years ago per patient, and he reports normal findings to be repeated in 2014. Etiologies of current episode includes internal hemorrhoids (no external hemorrhoids seen on examination), diverticular bleeding, AVM, varice [place] filter in place 04/06/2019 H/O right coronary artery stent placement 08/06/2023 Hemodialysis-associated hypotension History of alcohol abuse Quit 2011 History of cirrhosis of liver Secondary to alcohol abuse and hemochromatosis. Sees Dr. Doss (at [facility]): Secondary to alcohol abuse and hemochromatosis, currently on transplant list. MELD Score: 35 Plan: - continue home medications: nadolol, norfloxacin, zinc, lactulose, rifaximin, folic acid. 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 Currently alert, oriented x3, no signs of decompensated encephalopathy. Plan: - continue home regimen of lactulose, rifaximin and zinc History of hemochromatosis 08/24/2015 Has not been an issue since liver transplant. Hyperbilirubinemia 01/13/2013 Hypertensive retinopathy mild ICH (intracerebral hemorrhage) (HCC) Imbalance 06/01/2014 Noted at PT eval on 05/31/2014. Incisional hernia 04/07/2014 Liver transplanted (HCC) 04/07/[address] 06/06/2022 DPA: Brittani () Lupus anticoagulant syndrome (HCC) 10/28/2019 Medicare annual wellness visit, subsequent 05/18/2021 Medicare part B: Not able to find Last done: 05/18/2021 Mixed hyperlipidemia 06/23/2014 Obesity, Class I, BMI 30-34.9 10/27/2019 Osteopenia 11/26/2013 Other proteinuria 10/21/2017 Seeing renal Physical debility 10/26/2023 Prostate disorder 05/18/2021 Reactive depression 05/02/2023 Sertraline started 04/2023 Retinal edema S/P angioplasty with stent 08/06/2023 S/P hernia repair 12/13/2021 S/P liver transplant (HCC) 08/06/2023 Secondary hyperparathyroidism of renal origin (HCC) 10/19/2019 Thoracic aorta atherosclerosis (HCC) 10/12/2021 Thrombocytopenia (HCC) 05/18/2014 Tributary (branch) retinal vein occlusion, left eye, with macular edema Urge incontinence of urine 10/26/2023 Vertigo 05/18/2014 Vitreous degeneration Previous Surgical History PAST SURGICAL HISTORY Procedure Laterality Date APPENDECTOMY HX 02/15/2013 AVASTIN (BEVACIZUMAB) 1.25MG INTRAVITREAL INJECTION OD (RIGHT EYE) Right 04/18/2023 LAST AVASTIN (BEVACIZUMAB) 1.25MG INTRAVITREAL INJECTION OD (RIGHT EYE) Right 04/04/2016 CHOLECYSTECTOMY HX 02/15/2013 COLONOSCOPY 02/08/2013 repeat 10 yrs EYLEA (AFLIBERCEPT) 2MG INTRAVITREAL INJECTION OD (RIGHT EYE) Right 04/07/2014 intravitreal injection, Eylea OD FECAL OCCULT BLOOD TEST 09/13/2016 negative LIVER TRANSPLANT HX 01/2013 MIDLINE INSERTION/CONSULT 02/13/2013 PAST SURGICAL HISTORY OF Tooth extraction PAST SURGICAL HISTORY OF 02/15/2013 liver transplant PAST SURGICAL HISTORY OF 2004 vein stripping Family History FAMILY HISTORY Problem Relation Age of Onset other (MVA) Mother killed other (mva) Father killed other (hemachromatosis) Sister of breast ca at age 75 No Known Problems Sister COPD Sister other (hemachromatosis) Brother does not have any liver problems other (Bone Cancer) Brother No Known Problems Brother No Known Problems Maternal Grandmother No Known Problems Maternal Grandfather No Known Problems Paternal Grandmother No Known Problems Paternal Grandfather No Ocular Disease No Family History nothing known of Anesthesia Problems No Family History Patient Allergies ALLERGIES Allergen Reactions Aldactone [Spironol* Other: See Comments Hyperkalemia Seasonal Allergies Cough Sneezing and watering eyes Current Medications Current Outpatient Medications on File Prior to Visit Medication Sig insulin glargine (LANTUS SOLOSTAR U-100 INSULIN) 100 unit/mL (3 mL) Inject 5 Units subcutaneously every 24 hours. insulin lispro (HUMALOG U-100 INSULIN) 100 unit/mL injection Inject 3 Units subcutaneously three times a day before meals. mycophenolate mofetil (CELLCEPT) 250 mg capsule Take 2 capsules by mouth two times a day. Insulin [place], Disposable, (BD ULTRA-FINE MICRO PEN NEEDLE) 32 gauge x 1/4 1 Each once daily. Insulin [place], Disposable, (BD ULTRA-FINE MICRO PEN NEEDLE) 32 gauge x 1/4 1 Each three times a day. Blood-Glucose Meter 1 Each daily at 6 am. Test Three times a day. Blood Glucose Control, Normal soln 1 Each three times a day. blood sugar diagnostic test strip Use with blood glucose test 2 times daily, Insulin Dep? Yes Lancets Use with blood glucose test 2 times daily. Insulin Dep? Yes alcohol swabs Use with blood glucose test 2 times daily. Insulin Dep? Yes glucose 4 gram chewable tablet Take 4 tablets by mouth as needed for low blood sugar. phosphorus (PHOSPHA 250 NEUTRAL) 250 mg tablet Take 1 tablet by mouth two times a day. tacrolimus IR (PROGRAF) 1 mg capsule 2 capsules in the morning, 1 capsule in the evening torsemide (DEMADEX) 20 mg tablet Take 2 tablets by mouth once daily. sertraline (ZOLOFT) 25 mg tablet Take 1 tablet by mouth once daily. tamsulosin (FLOMAX) 0.4 mg take 1 capsule by mouth daily at bedtime pantoprazole DR (PROTONIX) 40 mg tablet Take 1 tablet by mouth once daily. hydrALAZINE (APRESOLINE) 50 mg tablet Take 1 tablet by mouth every 12 hours. b complex, c, folic acid 1 mg renal vitamins (NEPHROCAPS) 1 mg capsule Take 1 capsule by mouth once daily. blood sugar diagnostic ([employer] VERIO TEST STRIPS) test strip Use as instructed to check blood glucose level three times a day aspirin 81 mg chewable tablet Take 1 tablet by mouth once daily. clopidogrel (PLAVIX) 75 mg tablet Take 1 tablet by mouth once daily. carvedilol (COREG) 25 mg tablet Take 1 tablet by mouth two times a day. atorvastatin (LIPITOR) 40 mg tablet Take 1 tablet by mouth daily at bedtime. dilTIAZem CD (CARDIZEM CD, CARTIA XT) 240 mg 24 hr capsule Take 1 capsule by mouth once daily. Blood Pressure Monitor 1 Each twice daily. Cholecalciferol, Vitamin D3, 5,000 unit tab Take 1 tablet by mouth once daily. Current Facility-Administered Medications on File Prior to Visit Medication perflutren lipid microspheres 1.3 mL in NaCl (PF) 0.9% 10 mL injection (DEFINITY) sodium chloride 0.9 % (flush) 10 mL (BD POSIFLUSH) Social History Social History Tobacco Use Smoking status: Never Smokeless tobacco: Never Vaping Use Vaping Use: Never used Substance Use Topics Alcohol use: Not Currently Comment: last drink was in July 2012 Drug use: Never Review of Symptoms REVIEW OF SYSTEMS ENDOCRINE: Negative for symptoms of low BS's. EXAM: BP 120/68 (BP Site: Left Arm, BP Position: Sitting, BP Cuff Size: Regular Adult) Pulse 70 Temp 36.7 C (98.1 F) (Tympanic) Resp 18 Wt 81.2 kg (179 lb) BMI 28.04 kg/m Last 5 Encounter Wt Readings: Date: Wt: 01/10/2024 81.2 kg (179 lb) 12/20/2023 82.1 kg (181 lb) 12/04/2023 77.2 kg (170 lb 3.1 oz) 11/26/2023 79.4 kg (175 lb) 11/04/2023 83.9 kg (185 lb) General Appearance: Well appearing, alert, in no acute distress, well-hydrated, well nourished.. Lungs: Lungs clear to auscultation. No wheezing, rhonchi, rales.. Heart: RRR without murmur, gallop, or rubs. No ectopy. Extremities: No deformities, skin discoloration, clubbing or cyanosis. Good capillary refill. Has 1+ pitting edema in the right leg but has dialysis later today. Health Maintenance List Hepatitis B Vaccine(1 of 1 - Risk Dialysis 4-dose series) due on 05/11/2022 BP Controlled (<130/80) due on 11/16/2022 Advance Directive Discussion due on 08/19/2023 Behavioral Health Screening Never done DTaP,Tdap,Td Vaccine(2 - Td or Tdap) due on 06/20/2024 Shingrix Vaccine(1 of 2) due on 06/20/2024 Covid-19 Vaccine( season) due on 10/25/2024 HbA1C due on 06/24/2024 Dilated Retinal Exam due on 07/24/2024 Diabetic Foot Exam due on 09/18/2024 Annual PCP Team Chronic Disease Visit due on 12/19/2024 LDL Cholesterol due on 12/22/2024 Serum Creatinine due on 12/29/2024 Hemoglobin/Hematocrit due on 12/29/2024 Influenza Vaccine Completed RSV Vaccine Completed Hepatitis C Screening Completed Pneumococcal Vaccine: 65+ Completed HPV Vaccine Aged Out Colorectal Cancer Screening Discontinued Data reviewed Latest Ref Rng 12/23/2023 12/30/2023 WBC 3.70 - 11.00 k/uL 7.35 5.49 RBC 4.20 - 6.00 m/uL 2.57 (L) 2.62 (L) Hemoglobin 13.0 - 17.0 g/dL 7.6 (L) 7.9 (L) Hematocrit 39.0 - 51.0 % 24.6 (L) 25.4 (L) MCV 80.0 - 100.0 fL 95.7 96.9 MCH 26.0 - 34.0 pg 29.6 30.2 MCHC 30.5 - 36.0 g/dL 30.9 31.1 RDW-CV 11.5 - 15.0 % 19.1 (H) 18.8 (H) Platelet Count 150 - 400 k/uL 120 (L) 100 (L) MPV 9.0 - 12.7 fL 10.0 9.6 NRBC /100 WBC 0.0 0.0 Absolute nRBC <0.01 k/uL <0.01 <0.01 Neut% % 68.7 67.8 Abs Neut (ANC) 1.45 - 7.50 k/uL 5.05 3.72 Lymph% % 17.4 19.3 Abs Lymph 1.00 - 4.00 k/uL 1.28 1.06 [place]% % 7.8 10.0 Abs [place] <0.87 k/uL 0.57 0.55 Eosin% % 0.9 1.5 Abs Eosin <0.46 k/uL 0.07 0.08 Baso% % 0.0 0.5 Abs Baso <0.11 k/uL 0.00 0.03 [place]% % 0.9 Myelo% % 4.3 Left Shift Present Platelet Estimate Decreased Red Cell Morph Reviewed: see results of individual morphologies Polychromasia Slight Anisocytosis Present Ovalocytes Few DTYPE Manual Auto Immature Gran % % 0.9 IMMATURE GRANS (ABS) <0.10 k/uL 0.05 Protein, Total 6.3 - 8.0 g/dL 5.3 (L) 5.6 (L) Albumin 3.9 - 4.9 g/dL 3.2 (L) 3.3 (L) Calcium 8.5 - 10.2 mg/dL 9.1 9.8 Bilirubin, Total 0.2 - 1.3 mg/dL 0.4 0.3 Alkaline Phosphatase 38 - 113 U/L 105 90 AST 14 - 40 U/L 14 24 ALT 10 - 54 U/L 20 20 Glucose 74 - 99 mg/dL 104 (H) 58 (L) BUN 9 - 24 mg/dL 41 (H) 39 (H) Creatinine 0.73 - 1.22 mg/dL 3.89 (H) 3.73 (H) Sodium 136 - 144 mmol/L 141 140 Potassium 3.7 - 5.1 mmol/L 3.8 4.2 Chloride 97 - 105 mmol/L 103 103 CO2 22 - 30 mmol/L 27 26 Anion Gap 9 - 18 mmol/L 11 11 eGFR >=60 mL/min/1.73m 15 (L) 16 (L) Total Cholesterol, Nonfasting <200 mg/dL 127 Triglycerides, Nonfasting <150 mg/dL 76 HDL Cholesterol, Nonfasting >39 mg/dL 56 LDL Cholesterol, Nonfasting <100 mg/dL 56 Non HDL Cholesterol, Nonfasting <130 mg/dL 71 VLDL Cholesterol, Nonfasting <30 mg/dL 15 Total Chol/HDL Ratio, Nonfasting <5.10 mg/dL 2.27 LDL/HDL Ratio, Nonfasting <2.54 mg/dL 1.00 Hemoglobin A1C 4.3 - 5.6 % 5.7 (H) Estimated Average Glucose mg/dL 117 A/P ASSESSMENT/PLAN: 1. Type 2 diabetes mellitus with stage 4 chronic kidney disease, with long-term current use of insulin (HCC) - ICD9: 250.40, 585.4, V58.67, ICD10: E11.22, N18.4, Z79.4 (primary diagnosis) - Controlled - Improving control - Continue the glargine but increase to 6 units a day - Stop Insulin lispro (Humalog/Admelog) prior to meals - eGFR: 16 Stable - Counseled on avoiding NSAIDs, adequate hydration - on calcium channel lalo an dialysis 2. ESRD (end stage renal disease) ([facility]) - ICD9: 585.6, ICD10: N18.6 - on dialysis 3. Dialysis patient ([facility]) - ICD9: V45.11, ICD10: Z99.2 - managed per renal 4. Malnutrition of moderate degree ([facility]) - ICD9: 263.0, ICD10: E44.0 - cont to work to protein I diet. Requested Prescriptions Signed Prescriptions Disp Refills insulin glargine (LANTUS SOLOSTAR U-100 INSULIN) 100 unit/mL (3 mL) 15 mL 1 Sig: Inject 5 Units subcutaneously every 24 hours. F/u in early Mar for f/u blood sugars. Sanju Banerjee MD documented in this encounter [facility] 01-02-2024 Telephone encount er Note Patients informed and verbalized understanding. Mary Melgar MA [facility] 01-02-2024 Miscellaneous Notes Formattin g of this note might be different from the original. Patients informed and verbalized understanding. Mary Melgar MA Let patient's , Annamarie know Isaias's lipid panel ,mis good. His A1c is very good at 5.7%. see if he is still on the insuline Glargine 8 units once a day I want it cut back to 5 units a day. See if still doing the insulin lispro 5 units three times a day with meals to cut it back to 3 units with meals. He should continue is sliding scale insulin as is. documented in this encounter [facility] 01-02-2024 Telephone encount er Note Let patient's , Annamarie know Isaias's lipid panel ,mis good. His A1c is very good at 5.7%. see if he is still on the insuline Glargine 8 units once a day I want it cut back to 5 units a day. See if still doing the insulin lispro 5 units three times a day with meals to cut it back to 3 units with meals. He should continue is sliding scale insulin as is. [facility] 12-23-2023 Telephone encount er Note Pt's notified of results and instructions and verbalizes understanding. Kadi España MA [facility] 12-23-2023 Miscellaneous Notes Formattin g of this note might be different from the original. Pt's notified of results and instructions and verbalizes understanding. Kadi España MA Left voicemail to call back office will also send RevoDealst message Please, notify patient the urine culture was positive Treatment e-scripted: Keflex 500 mg And will need a 2 week post-treatment urine culture ( orders are in) Thank you, VICENTE Martin, [place], PARupeshC documented in this encounter [facility] 12-23-2023 Telephone encount er Note Left voicemail to call back office will also send RevoDealst message [facility] 12-23-2023 Telephone encount er Note Please, notify patient the urine culture was positive Treatment e-scripted: Keflex 500 mg And will need a 2 week post-treatment urine culture ( orders are in) Thank you, Bradly Price, VICENTE, NATALIE, DIEGO [facility] 12-20-2023 History of Presen t illness Narrative Chief Complaint Patient presents with: Follow Up HPI Isaias Sanon is a 78 year old male who presents here today for 6 month follow up. Patient with hx of CAD, DM, HTN, hyperlipidemia, GERD, CKD, Obesity, previous liver transplant and those as below. Patient was recent in [facility] hospital. Patient see Cardiology. Recent insert of 3 Stents 06/11/2023. Has had numerous visits with Cardiology for CHF. Stamina is improved and not getting as easily short of breath. He has not been set up with cardiac rehab yet though an order is in the chart.. also getting dialysis 3 times a week. Has it later today Patient is back on the prednisone and has been using his insuline sliding scale and taking insuline when needed. He has an appt with Gastro and Nephrology. Is supposed to f/u with geriatrics but an appt was never made and no number provided on discharge summery or that he needed to make an appt. medical history, appointments, medications, allergies reviewed. 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 Denies current abdominal tenderness, and no large volume ascites with need for paracentesis 02/06/2013. Plan: - ? Diuretics - will D/W nephrology Balance problem 06/19/2016 Benign prostatic hyperplasia with urinary hesitancy 10/26/2023 Bilateral leg edema 01/22/2020 BRVO (branch retinal vein occlusion) OS Cataract of both eyes Central retinal vein occlusion with macular edema of right eye Chronic lumbar pain 06/16/2020 Chronic pain of both ankles 12/13/2017 CKD (chronic kidney disease) stage 3, GFR 30-59 ml/min ([facility]) 06/19/[address] Vipul Perez [facility] CKD (chronic kidney disease) stage 4, GFR 15-29 ml/min ([facility]) 06/19/[address] 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 Plan: Continue pantoprazole 40mg qday. Elevated prostate specific antigen (PSA) 10/19/2016 Normal 10/2017 with free PSA at 44% Essential hypertension 05/18/2014 11/08/2014: Home BP Cuff Validated. Home BP: 167/94 pulse 79. Office BP: 157/91 pulse 76. Fecal incontinence 10/26/2023 Gastroesophageal reflux disease without esophagitis 08/24/2015 GIB (gastrointestinal bleeding) 01/13/2013 Patient presents with three episodes of BRBPR onset around 2pm 02/06/2013. He endorses a history of BRBPR during an admission at [facility] in December 2012 for which he states no workup or colonoscopy was performed. During his last admission at [facility] he endorses having passed old blood , and underwent EGD 01/31/13 showing a small polyp/hypertrophied fold at the cardia, severe portal hypertensive gastropathy in the entire stomach, and multiple superficial duodenal ulcers. EGD EUS performed 02/03/13 showed several portal hypertensive gastropathy, and normal endoscopic ultrasound examination of the previous area of concern (polyp vs. gastric fold). He was started on PPI BID and discharged 02/04/13 at which time hemoglobin was 8.6. In the ED 02/06/13, Hgb is 8.4, Hct 24.4, plt 41. Last colonoscopy was 2 years ago per patient, and he reports normal findings to be repeated in 2014. Etiologies of current episode includes internal hemorrhoids (no external hemorrhoids seen on examination), diverticular bleeding, AVM, varice [place] filter in place 04/06/2019 H/O right coronary artery stent placement 08/06/2023 Hemodialysis-associated hypotension History of alcohol abuse Quit 2011 History of cirrhosis of liver Secondary to alcohol abuse and hemochromatosis. Sees Dr. Doss (at [facility]): Secondary to alcohol abuse and hemochromatosis, currently on transplant list. MELD Score: 35 Plan: - continue home medications: nadolol, norfloxacin, zinc, lactulose, rifaximin, folic acid. 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 Currently alert, oriented x3, no signs of decompensated encephalopathy. Plan: - continue home regimen of lactulose, rifaximin and zinc History of hemochromatosis 08/24/2015 Has not been an issue since liver transplant. Hyperbilirubinemia 01/13/2013 Hypertensive retinopathy mild ICH (intracerebral hemorrhage) (HCC) Imbalance 06/01/2014 Noted at PT eval on 05/31/2014. Incisional hernia 04/07/2014 Liver transplanted (HCC) 04/07/[address] 06/06/2022 DPA: Brittani () Lupus anticoagulant syndrome (HCC) 10/28/2019 Medicare annual wellness visit, subsequent 05/18/2021 Medicare part B: Not able to find Last done: 05/18/2021 Mixed hyperlipidemia 06/23/2014 Obesity, Class I, BMI 30-34.9 10/27/2019 Osteopenia 11/26/2013 Other proteinuria 10/21/2017 Seeing renal Physical debility 10/26/2023 Prostate disorder 05/18/2021 Reactive depression 05/02/2023 Sertraline started 04/2023 Retinal edema S/P angioplasty with stent 08/06/2023 S/P hernia repair 12/13/2021 S/P liver transplant (HCC) 08/06/2023 Secondary hyperparathyroidism of renal origin (HCC) 10/19/2019 Thoracic aorta atherosclerosis (HCC) 10/12/2021 Thrombocytopenia (HCC) 05/18/2014 Tributary (branch) retinal vein occlusion, left eye, with macular edema Urge incontinence of urine 10/26/2023 Vertigo 05/18/2014 Vitreous degeneration Previous Surgical History PAST SURGICAL HISTORY Procedure Laterality Date APPENDECTOMY HX 02/15/2013 AVASTIN (BEVACIZUMAB) 1.25MG INTRAVITREAL INJECTION OD (RIGHT EYE) Right 04/18/2023 LAST AVASTIN (BEVACIZUMAB) 1.25MG INTRAVITREAL INJECTION OD (RIGHT EYE) Right 04/04/2016 CHOLECYSTECTOMY HX 02/15/2013 COLONOSCOPY 02/08/2013 repeat 10 yrs EYLEA (AFLIBERCEPT) 2MG INTRAVITREAL INJECTION OD (RIGHT EYE) Right 04/07/2014 intravitreal injection, Eylea OD FECAL OCCULT BLOOD TEST 09/13/2016 negative LIVER TRANSPLANT HX 01/2013 MIDLINE INSERTION/CONSULT 02/13/2013 PAST SURGICAL HISTORY OF Tooth extraction PAST SURGICAL HISTORY OF 02/15/2013 liver transplant PAST SURGICAL HISTORY OF 2004 vein stripping Family History FAMILY HISTORY Problem Relation Age of Onset other (MVA) Mother killed other (mva) Father killed other (hemachromatosis) Sister of breast ca at age 75 No Known Problems Sister COPD Sister other (hemachromatosis) Brother does not have any liver problems other (Bone Cancer) Brother No Known Problems Brother No Known Problems Maternal Grandmother No Known Problems Maternal Grandfather No Known Problems Paternal Grandmother No Known Problems Paternal Grandfather No Ocular Disease No Family History nothing known of Anesthesia Problems No Family History Patient Allergies ALLERGIES Allergen Reactions Aldactone [Spironol* Other: See Comments Hyperkalemia Seasonal Allergies Cough Sneezing and watering eyes Current Medications Current Outpatient Medications on File Prior to Visit Medication Sig mycophenolate mofetil (CELLCEPT) 250 mg capsule Take 2 capsules by mouth two times a day. predniSONE (DELTASONE) 5 mg tablet 4 tablets by ORAL/FEEDING TUBE route once daily for 3 days, THEN 3 tablets once daily for 5 days, THEN 2 tablets once daily for 5 days, THEN 1 tablet once daily for 5 days. insulin glargine (LANTUS SOLOSTAR U-100 INSULIN) 100 unit/mL (3 mL) Inject 8 Units subcutaneously every 24 hours. Insulin [place], Disposable, (BD ULTRA-FINE MICRO PEN NEEDLE) 32 gauge x 1/4 1 Each once daily. insulin lispro (HUMALOG U-100 INSULIN) 100 unit/mL injection Inject 5 Units subcutaneously three times a day before meals. Insulin [place], Disposable, (BD ULTRA-FINE MICRO PEN NEEDLE) 32 gauge x 1/4 1 Each three times a day. Blood-Glucose Meter 1 Each daily at 6 am. Test Three times a day. Blood Glucose Control, Normal soln 1 Each three times a day. blood sugar diagnostic test strip Use with blood glucose test 2 times daily, Insulin Dep? Yes Lancets Use with blood glucose test 2 times daily. Insulin Dep? Yes alcohol swabs Use with blood glucose test 2 times daily. Insulin Dep? Yes glucose 4 gram chewable tablet Take 4 tablets by mouth as needed for low blood sugar. phosphorus (PHOSPHA 250 NEUTRAL) 250 mg tablet Take 1 tablet by mouth two times a day. tacrolimus IR (PROGRAF) 1 mg capsule 2 capsules in the morning, 1 capsule in the evening torsemide (DEMADEX) 20 mg tablet Take 2 tablets by mouth once daily. sertraline (ZOLOFT) 25 mg tablet Take 1 tablet by mouth once daily. tamsulosin (FLOMAX) 0.4 mg take 1 capsule by mouth daily at bedtime pantoprazole DR (PROTONIX) 40 mg tablet Take 1 tablet by mouth once daily. hydrALAZINE (APRESOLINE) 50 mg tablet Take 1 tablet by mouth every 12 hours. b complex, c, folic acid 1 mg renal vitamins (NEPHROCAPS) 1 mg capsule Take 1 capsule by mouth once daily. blood sugar diagnostic ([employer]CH VERIO TEST STRIPS) test strip Use as instructed to check blood glucose level three times a day aspirin 81 mg chewable tablet Take 1 tablet by mouth once daily. clopidogrel (PLAVIX) 75 mg tablet Take 1 tablet by mouth once daily. carvedilol (COREG) 25 mg tablet Take 1 tablet by mouth two times a day. atorvastatin (LIPITOR) 40 mg tablet Take 1 tablet by mouth daily at bedtime. dilTIAZem CD (CARDIZEM CD, CARTIA XT) 240 mg 24 hr capsule Take 1 capsule by mouth once daily. Blood Pressure Monitor 1 Each twice daily. Cholecalciferol, Vitamin D3, 5,000 unit tab Take 1 tablet by mouth once daily. Current Facility-Administered Medications on File Prior to Visit Medication perflutren lipid microspheres 1.3 mL in NaCl (PF) 0.9% 10 mL injection (DEFINITY) sodium chloride 0.9 % (flush) 10 mL (BD POSIFLUSH) Social History Social History Tobacco Use Smoking status: Never Smokeless tobacco: Never Vaping Use Vaping Use: Never used Substance Use Topics Alcohol use: Not Currently Comment: last drink was in July 2012 Drug use: Never Review of Symptoms REVIEW OF SYSTEMS GENERAL: No weight loss, malaise or fevers RESPIRATORY: Negative for cough, hemoptysis, much less wheezing, COPD, dyspnea or shortness of breath CARDIOVASCULAR: Negative for chest pain, hypertension, CHF or palpitations. The leg swelling has improved a lot GI: No nausea, vomiting, or diarrhea and No heartburn or reflux symptoms : No history of dysuria, frequency or blood ENDOCRINE: Negative for symptoms of low BS's NEURO: No history of headaches, syncope, paralysis, seizures or tremors Psych: still doing better on the sertraline. EXAM: BP 138/64 (BP Site: Right Arm, BP Position: Sitting, BP Cuff Size: Regular Adult) Pulse 76 Resp 16 Wt 82.1 kg (181 lb) BMI 28.35 kg/m Last 4 Encounter Wt Readings: Date: Wt: 12/20/2023 82.1 kg (181 lb) 12/04/2023 77.2 kg (170 lb 3.1 oz) 11/26/2023 79.4 kg (175 lb) 11/04/2023 83.9 kg (185 lb) General Appearance: Well appearing, alert, in no acute distress, well-hydrated, well nourished.. Eyes: Anicteric sclera. Pupils are equally round and reactive to light. Extraocular movements are intact. . Neck: Supple, no adenopathy; thyroid symmetric, normal size, no bruits. Lungs: Lungs clear to auscultation. No wheezing, rhonchi, rales.. Heart: RRR without murmur, gallop, or rubs. No ectopy. Abdomen: Normal abdominal exam, Abdomen soft, non-tender. Bowel sounds normal. No masses, organomegaly. Extremities: No deformities. Good capillary refill. .has chronic venous stasis changes. No edema on the left an mild edema to just above the ankle on the right Peripheral Pulses: Normal. Neurologic: Gait: in a wheelchair. Sensation to light touch and crainal nerves 2-12 intact.. Health Maintenance List Hepatitis B Vaccine(1 of 1 - Risk Dialysis 4-dose series) due on 05/11/2022 Advance Directive Discussion due on 08/19/2023 Behavioral Health Screening Never done HbA1C due on 12/17/2023 DTaP,Tdap,Td Vaccine(2 - Td or Tdap) due on 06/20/2024 Shingrix Vaccine(1 of 2) due on 06/20/2024 Covid-19 Vaccine( - season) due on 10/25/2024 LDL Cholesterol due on 06/24/2024 Dilated Retinal Exam due on 07/24/2024 Diabetic Foot Exam due on 09/18/2024 Annual PCP Team Chronic Disease Visit due on 11/03/2024 BP Controlled (<130/80) due on 11/25/2024 Serum Creatinine due on 12/15/2024 Hemoglobin/Hematocrit due on 12/15/2024 Influenza Vaccine Completed RSV Vaccine Completed Hepatitis C Screening Completed Pneumococcal Vaccine: 65+ Completed HPV Vaccine Aged Out Colorectal Cancer Screening Discontinued Data reviewed Latest Ref Rng 06/24/2023 12/16/2023 Protein, Total 6.3 - 8.0 g/dL 6.6 5.3 (L) Albumin 3.9 - 4.9 g/dL 3.9 3.3 (L) Calcium 8.5 - 10.2 mg/dL 9.9 8.8 Bilirubin, Total 0.2 - 1.3 mg/dL 0.4 0.4 Alkaline Phosphatase 38 - 113 U/L 101 165 (H) AST 14 - 40 U/L 18 18 ALT 10 - 54 U/L 25 34 Glucose 74 - 99 mg/dL 176 (H) 75 BUN 9 - 24 mg/dL 39 (H) 47 (H) Creatinine 0.73 - 1.22 mg/dL 3.22 (H) 4.34 (H) Sodium 136 - 144 mmol/L 139 135 (L) Potassium 3.7 - 5.1 mmol/L 4.2 4.3 Chloride 97 - 105 mmol/L 100 98 CO2 22 - 30 mmol/L 24 26 Anion Gap 9 - 18 mmol/L 15 11 eGFR >=60 mL/min/1.73m 19 (L) 13 (L) WBC 3.70 - 11.00 k/uL 6.35 7.77 RBC 4.20 - 6.00 m/uL 3.14 (L) 2.61 (L) Hemoglobin 13.0 - 17.0 g/dL 9.0 (L) 7.7 (L) Hematocrit 39.0 - 51.0 % 28.9 (L) 24.1 (L) MCV 80.0 - 100.0 fL 92.0 92.3 MCH 26.0 - 34.0 pg 28.7 29.5 MCHC 30.5 - 36.0 g/dL 31.1 32.0 RDW-CV 11.5 - 15.0 % 14.7 17.9 (H) Platelet Count 150 - 400 k/uL 137 (L) 138 (L) MPV 9.0 - 12.7 fL 9.2 9.4 Absolute nRBC <0.01 k/uL <0.01 <0.01 Total Cholesterol, Nonfasting <200 mg/dL 124 Triglycerides, Nonfasting <150 mg/dL 106 HDL Cholesterol, Nonfasting >39 mg/dL 40 LDL Cholesterol, Nonfasting <100 mg/dL 63 Non HDL Cholesterol, Nonfasting <130 mg/dL 84 VLDL Cholesterol, Nonfasting <30 mg/dL 21 Total Chol/HDL Ratio, Nonfasting <5.10 mg/dL 3.10 LDL/HDL Ratio, Nonfasting <2.54 mg/dL 1.58 Hemoglobin A1C 4.3 - 5.6 % 6.3 (H) Estimated Average Glucose mg/dL 134 PSA <2.60 ng/mL 2.21 A/P ASSESSMENT/PLAN: 1. Type 2 diabetes mellitus with stage 4 chronic kidney disease, with long-term current use of insulin (HCC) - ICD9: 250.40, 585.4, V58.67, ICD10: E11.22, N18.4, Z79.4 (primary diagnosis) - Controlled - Continue current medications - patient to continue the sliding scale while on the prednisone. - eGFR: 13 Stable - patient seeing renal and on dialysis three days a week Check - HEMOGLOBIN A1C - LIPID PANEL, NONFASTING 2. Mixed hyperlipidemia - ICD9: 272.2, ICD10: E78.2 Await lab - Continue current medications - Counseled on healthy diet and regular exercise Check - LIPID PANEL, NONFASTING 3. Gastroesophageal reflux disease without esophagitis - ICD9: 530.81, ICD10: K21.9 - Continue treatment with protonix 40 mg QD 4. History of stroke - ICD9: V12.54, ICD10: Z86.73 - clinically stable. No changes in Tx. 5. Acute on chronic anemia - ICD9: 285.9, ICD10: D64.9 - stable and managed per renal 6. Coronary artery disease - ICD9: 414.01, ICD10: I25.10 - clinically stable and cont management with cardio 7. Chronic kidney disease (CKD), stage IV (severe) (HCC) - ICD9: 585.4, ICD10: N18.4 - eGFR: Stable - on dialysis and management per renal 8. Secondary hyperparathyroidism of renal origin (HCC) - ICD9: 588.81, ICD10: N25.81 - as per #7 9. Liver transplant status (HCC) - ICD9: V42.7, ICD10: Z94.4 - cont management per liver team, gastro 10. Lupus anticoagulant syndrome (HCC) - ICD9: 289.81, ICD10: D68.62 - can no longer be on anticoagulation due to ICH 11. Thrombocytopenia (HCC) - ICD9: 287.5, ICD10: D69.6 - stable. Monitored and no changes. 12. Bilateral leg edema - ICD9: 782.3, ICD10: R60.0 - improved with dialyses. No changes. 13. Obesity, Class I, BMI 30-34.9 - ICD9: 278.00, ICD10: E66.9 - stale 14. Malnutrition of moderate degree (HCC) - ICD9: 263.0, ICD10: E44.0 - patient to improve protein in diet. 15. Liver transplant rejection (HCC) - ICD9: 996.82, ICD10: T86.41 - managed per liver team/gastro 16. ESRD (end stage renal disease) (HCC) - ICD9: 585.6, ICD10: N18.6 - on dialysis and managed per renal 17. Encounter for aftercare following liver transplant (HCC) - ICD9: V58.44, ICD10: Z48.23 - as per #15 18. Dialysis patient (HCC) - ICD9: V45.11, ICD10: Z99.2 - as per #16 F/u in January or late December for blood sugars. F/u in Jun 2024 for extensive I spent a total of 40 minutes on the date of the service which included preparing to see the patient, [id number] patient care, completing clinical documentation, performing a medically appropriate examination, counseling and educating the patient/family/caregiver and ordering medications, tests, or procedures. Sanju Banerjee MD documented in this encounter [facility] 12-06-2023 Miscellaneous Notes Formattin g of this note might be different from the original. PATIENT NAME: Isaias Sanon PATIENT LOCATION: REASON FOR VISIT: Referral follow up - referral received ASSESSMENT AND PLAN: Referral received. Chart reviewed. Per notes, patient's would like to get information on taking patient home with hospice care. Patient lives outside of [facility] Hospice service area. Advised CM via Epic chat and Careport. Patient will need Epic order from provider since a referral was placed in Careport. CM also aware of this. If patient requires assessment for inpatient hospice with [facility] hospice due to discomfort from symptoms at end of life, our team can be paged directly to assess at #[phone]. Please Call [phone] with any questions or needs with coordination of care. Request to have the covering liaison paged. Hospice and Palliative Care Liaison [facility] for [facility] Care documented in this encounter [facility] 12-05-2023 Miscellaneous Notes Formattin g of this note might be different from the original. I called and spoke with patient's daughter. She wanted to make us aware that patient is in ED and being admitted. I let her know we'd follow along with hospital stay. Brittney Benitez (Cassie) RN, BSN, [facility] Liver Binder Operator Pt's daughter Amberly called regarding the pt having confusion and agitation, calcium is high and in the ED currently. Pt did not receive his dialysis yesterday. She would like some guidance on what to do. Call back is [phone]. documented in this encounter [facility] 12-04-2023 Miscellaneous Notes Formattin g of this note might be different from the original. Patient with recent admission for dyspnea and volume overload requiring initiation of dialysis and transitioned to OP dialysis MWF. He was supposed to be seen by nephrology on Saturday but cancelled and rescheduled for December. Per daughter, Amberly, he has had ongoing hallucinations for the past few weeks and they were told he may be going crazy . This AM Amberly reports he just feels terrible and is not track their finger movements and not making sense. Daughter feels he may be having TIAs and is requesting we admit him. Advised to report to ED for urgent eval. Antoine Estrada RN, BSN, [facility] Liver Binder Operator documented in this encounter [facility] 11-27-2023 Miscellaneous Notes Formattin g of this note might be different from the original. Faxed notified daughter. Terra Dang MA Order and office note ready to be faxed. Pts daughter called in and reports that Pt needs a hospital bed with rails. She states that he slid out of bed and was just going to lay on the floor. She says it takes all her and her mom have to get him up. She also says that he is not able to us his leg now. Yesterday he had dialysis and her and her mother had to pick him up to get him in and out of the car. She said they need the bed to help with mobility of his legs. I told her that provider may need to have him come in for an appointment because Medicare is very particular, and I don't know if his 11/04/23 OV note will have enough information. She reports they would like the Rx sent to [facility] in [place], [place] at fax # [phone]. documented in this encounter [facility] 11-26-2023 Instructions Bradly Price PA-C - 11/26/2023 10:58 AM EDT > He will do a trial off Flomax 1 week and see if his Leaking decreases, if he ends in retention and unable to get urine out we will restart it. > He just started Bactrim so when he finishes it I want a post- treatment culture 1 week after he finishes it (Order for [facility] given) > Printed Orders given to patient today > 6 months apointment or sooner if needed documented in this encounter [facility] 11-26-2023 History of Presen t illness Narrative Verified name and date of . CC Post Void Residual HPI: Isaias Sanon is a 78 year old male. The patient is here now for an appointment with VICENTE Martin, NATALIE, GERARDO. Procedure: Explained procedure to patient and verbalizes understanding. Performed a PVR. Patient attempted to urinate but was not able to at this time. Results of scan: 0 mL The patient tolerated the procedure well. Plan: Appointment with Bradly. Images from the original note were not included. [facility] NEW PATIENT CLINIC NOTE SERVICE DATE: 11/26/2023 SERVICE TIME: 9:53 AM NAME: Isaias Sanon CHIEF COMPLAINT: UTI follow-up HISTORY OF PRESENT ILLNESS: Isaias Sanon is a 78 year old male presenting as an New Patient for UTI and urine leak - unexpected timing The patient reports on dialysis and makes very little urine, but has to wear a pad due to Inability to know when he will have to go, I don't recommend Flomax at this time He will do a trial off Flomax 1 week and see if his Leaking decreases, if he ends in retention and unable to get urine out we will restart it. He just started Bactrim so when he finishes it I want a post- treatment culture 1 week after he finishes it (Order for [facility] given) LUTS: DYSURIA: no URGENCY: No FREQUENCY:4 per day NOCTURIA: 0 per night STRAINING TO VOID: Yes EMPTIES COMPLETELY: Yes UTI: 2 past 12 months GROSS HEMATURIA: no UA DIPSTICK POSITIVE ONLY: no Other symptoms: LABS: Testosterone (ng/dL) Date Value 06/19/2016 210 Testosterone Free (pg/mL) Date Value 06/19/2016 43.1 PSA (ng/mL) Date Value 06/24/2023 2.21 06/25/2022 2.51 07/03/2021 3.1 06/17/2021 4.00 11/09/2019 1.54 Hematocrit (%) Date Value 11/19/2023 27.8 11/11/2023 28.0 11/04/2023 28.3 10/07/2021 30.3 09/25/2021 32.6 09/11/2021 30.9 PSA (ng/mL) Date Value 06/24/2023 2.21 06/25/2022 2.51 07/03/2021 3.1 06/17/2021 4.00 11/09/2019 1.54 10/19/2019 2.68 Creatinine Date Value Ref Range Status 11/19/2023 4.29 (H) 0.73 - 1.22 mg/dL Final 11/11/2023 5.98 (H) 0.73 - 1.22 mg/dL Final 11/04/2023 4.83 (H) 0.73 - 1.22 mg/dL Final 10/26/2023 2.99 (H) 0.73 - 1.22 mg/dL Final MEDICATIONS: torsemide (DEMADEX) 20 mg tablet^Take 2 tablets by mouth once daily.^Disp: 60 tablet^Rfl: 5 sertraline (ZOLOFT) 25 mg tablet^Take 1 tablet by mouth once daily.^Disp: 30 tablet^Rfl: 5 sulfamethoxazole-trimethoprim (BACTRIM DS) 800-160 mg per tablet^Take 1 tablet by mouth once daily for 7 days. On dialysis days needs to take dose after dialysis.^Disp: 7 tablet^Rfl: 0 tamsulosin (FLOMAX) 0.4 mg^take 1 capsule by mouth daily at bedtime^Disp: 90 capsule^Rfl: 1 tacrolimus IR (PROGRAF) 1 mg capsule^Take 1 capsule by mouth two times a day. Z94.4 - liver transplant^Disp: 60 capsule^Rfl: [address] (PROTONIX) 40 mg tablet^Take 1 tablet by mouth once daily.^Disp: 90 tablet^Rfl: 3 hydrALAZINE (APRESOLINE) 50 mg tablet^Take 1 tablet by mouth every 12 hours.^Disp: 60 tablet^Rfl: 2 b complex, c, folic acid 1 mg renal vitamins (NEPHROCAPS) 1 mg capsule^Take 1 capsule by mouth once daily.^Disp: 30 capsule^Rfl: 0 blood sugar diagnostic ([employer] VERIO TEST STRIPS) test strip^Use as instructed to check blood glucose level three times a day^Disp: 100 Each^Rfl: 2 aspirin 81 mg chewable tablet^Take 1 tablet by mouth once daily.^Disp: 90 tablet^Rfl: 3 clopidogrel (PLAVIX) 75 mg tablet^Take 1 tablet by mouth once daily.^Disp: 90 tablet^Rfl: 3 carvedilol (COREG) 25 mg tablet^Take 1 tablet by mouth two times a day.^Disp: 60 tablet^Rfl: 5 atorvastatin (LIPITOR) 40 mg tablet^Take 1 tablet by mouth daily at bedtime.^Disp: 30 tablet^Rfl: 5 dilTIAZem CD (CARDIZEM CD, CARTIA XT) 240 mg 24 hr capsule^Take 1 capsule by mouth once daily.^Disp: 30 capsule^Rfl: 11 Blood Pressure Monitor^1 Each twice daily.^Disp: 1 Kit^Rfl: 0 Cholecalciferol, Vitamin D3, 5,000 unit tab^Take 1 tablet by mouth once daily.^Disp: ^Rfl: 0 doxycycline (VIBRA-TABS) 100 mg tablet^Take 1 tablet by mouth two times a day for 7 days.^Disp: 14 tablet^Rfl: 0 PAST MEDICAL HISTORY: PAST MEDICAL HISTORY Diagnosis Date Abdominal hernia without obstruction and without gangrene 06/19/2016 Acute on chronic rejection of liver (HCC) 08/05/2023 Advance directive discussed with patient 06/06/2022 Discussed 05/2022 Amblyopia of left eye Anemia of renal disease 11/25/2019 Anemia of renal disease 11/25/2019 Arthritis Ascites 01/13/2013 Patient denies known history of SBP. Denies current abdominal tenderness, and no large volume ascites with need for paracentesis 02/06/2013. Plan: - ? Diuretics - will D/W nephrology Balance problem 06/19/2016 Benign prostatic hyperplasia with urinary hesitancy 10/26/2023 Bilateral leg edema 01/22/2020 BRVO (branch retinal vein occlusion) OS Cataract of both eyes Central retinal vein occlusion with macular edema of right eye Chronic lumbar pain 06/16/2020 Chronic pain of both ankles 12/13/2017 CKD (chronic kidney disease) stage 3, GFR 30-59 ml/min ([facility]) 06/19/[address] Vipul Perez [facility] CKD (chronic kidney disease) stage 4, GFR 15-29 ml/min ([facility]) 06/19/[address] 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 Plan: Continue pantoprazole 40mg qday. Elevated prostate specific antigen (PSA) 10/19/2016 Normal 10/2017 with free PSA at 44% Essential hypertension 05/18/2014 11/08/2014: Home BP Cuff Validated. Home BP: 167/94 pulse 79. Office BP: 157/91 pulse 76. Fecal incontinence 10/26/2023 Gastroesophageal reflux disease without esophagitis 08/24/2015 GIB (gastrointestinal bleeding) 01/13/2013 Patient presents with three episodes of BRBPR onset around 2pm 02/06/2013. He endorses a history of BRBPR during an admission at [facility] in December 2012 for which he states no workup or colonoscopy was performed. During his last admission at [facility] he endorses having passed old blood , and underwent EGD 01/31/13 showing a small polyp/hypertrophied fold at the cardia, severe portal hypertensive gastropathy in the entire stomach, and multiple superficial duodenal ulcers. EGD EUS performed 02/03/13 showed several portal hypertensive gastropathy, and normal endoscopic ultrasound examination of the previous area of concern (polyp vs. gastric fold). He was started on PPI BID and discharged 02/04/13 at which time hemoglobin was 8.6. In the ED 02/06/13, Hgb is 8.4, Hct 24.4, plt 41. Last colonoscopy was 2 years ago per patient, and he reports normal findings to be repeated in 2014. Etiologies of current episode includes internal hemorrhoids (no external hemorrhoids seen on examination), diverticular bleeding, AVM, varice [place] filter in place 04/06/2019 H/O right coronary artery stent placement 08/06/2023 Hemodialysis-associated hypotension History of alcohol abuse Quit 2011 History of cirrhosis of liver Secondary to alcohol abuse and hemochromatosis. Sees Dr. Doss (at [facility]): Secondary to alcohol abuse and hemochromatosis, currently on transplant list. MELD Score: 35 Plan: - continue home medications: nadolol, norfloxacin, zinc, lactulose, rifaximin, folic acid. - awaiting transplant History of deep venous thrombosis (DVT) of distal vein of right lower extremity 04/06/2019 [facility] cou[facility] History of encephalopathy 02/06/2013 Secondary to cirrhosis. Currently alert, oriented x3, no signs of decompensated encephalopathy. Plan: - continue home regimen of lactulose, rifaximin and zinc History of hemochromatosis 08/24/2015 Has not been an issue since liver transplant. Hyperbilirubinemia 01/13/2013 Hypertensive retinopathy mild ICH (intracerebral hemorrhage) (HCC) Imbalance 06/01/2014 Noted at PT eval on 05/31/2014. Incisional hernia 04/07/2014 Liver transplanted (HCC) 04/07/[address] 06/06/2022 DPA: Brittani () Lupus anticoagulant syndrome (HCC) 10/28/2019 Medicare annual wellness visit, subsequent 05/18/2021 Medicare part B: Not able to find Last done: 05/18/2021 Mixed hyperlipidemia 06/23/2014 Obesity, Class I, BMI 30-34.9 10/27/2019 Osteopenia 11/26/2013 Other proteinuria 10/21/2017 Seeing renal Physical debility 10/26/2023 Prostate disorder 05/18/2021 Reactive depression 05/02/2023 Sertraline started 04/2023 Retinal edema S/P angioplasty with stent 08/06/2023 S/P hernia repair 12/13/2021 S/P liver transplant (HCC) 08/06/2023 Secondary hyperparathyroidism of renal origin (HCC) 10/19/2019 Thoracic aorta atherosclerosis (HCC) 10/12/2021 Thrombocytopenia (HCC) 05/18/2014 Tributary (branch) retinal vein occlusion, left eye, with macular edema Urge incontinence of urine 10/26/2023 Vertigo 05/18/2014 Vitreous degeneration PAST SURGICAL HISTORY: PAST SURGICAL HISTORY Procedure Laterality Date APPENDECTOMY HX 02/15/2013 AVASTIN (BEVACIZUMAB) 1.25MG INTRAVITREAL INJECTION OD (RIGHT EYE) Right 04/18/2023 LAST AVASTIN (BEVACIZUMAB) 1.25MG INTRAVITREAL INJECTION OD (RIGHT EYE) Right 04/04/2016 CHOLECYSTECTOMY HX 02/15/2013 COLONOSCOPY 02/08/2013 repeat 10 yrs EYLEA (AFLIBERCEPT) 2MG INTRAVITREAL INJECTION OD (RIGHT EYE) Right 04/07/2014 intravitreal injection, Eylea OD FECAL OCCULT BLOOD TEST 09/13/2016 negative LIVER TRANSPLANT HX 01/2013 MIDLINE INSERTION/CONSULT 02/13/2013 PAST SURGICAL HISTORY OF Tooth extraction PAST SURGICAL HISTORY OF 02/15/2013 liver transplant PAST SURGICAL HISTORY OF 2004 vein stripping FAMILY HISTORY: FAMILY HISTORY Problem Relation Age of Onset other (MVA) Mother killed other (mva) Father killed other (hemachromatosis) Sister of breast ca at age 75 No Known Problems Sister COPD Sister other (hemachromatosis) Brother does not have any liver problems other (Bone Cancer) Brother No Known Problems Brother No Known Problems Maternal Grandmother No Known Problems Maternal Grandfather No Known Problems Paternal Grandmother No Known Problems Paternal Grandfather No Ocular Disease No Family History nothing known of Anesthesia Problems No Family History SOCIAL HISTORY: Social Connections: Unknown (10/24/2023) Social Connection and Isolation Panel [NHANES] Frequency of Communication with Friends and Family: Once a week Frequency of Social Gatherings with Friends and Family: More than three times a week Attends Advent Services: Patient declined Active Member of Clubs or Organizations: No Attends Club or Organization Meetings: Never Marital Status: REVIEW OF SYSTEMS: GENERAL: No fever, chills, weight loss, or fatigue. ENMT: Negative CARDIOVASCULAR:NO CHEST PAIN, PALPITATIONS, ANKLE EDEMA RESPIRATORY: No chronic cough, wheezing, dyspnea, hemoptysis. GENITOURINARY: SEE HPI MUSCULOSKELETAL:NO CHRONIC BACK PAIN, ARTHRITIS, CHRONIC NECK PAIN SKIN: NO VARICOSE VEINS, RASH, ABNORMAL ITCHING HEME/LYMPH/IMMUNE:Negative for prolonged bleeding, bruising easily or swollen nodes NEUROLOGICAL: NO HEADACHES, NUMBNESS, SEIZURES, STROKE DIABETES: yes All other systems reviewed and are negative PHYSICAL EXAMINATION: Blood pressure 108/58, pulse 76, temperature 36.7 C (98 F), temperature source Temporal, resp. rate 12, height 170.2 cm (5' 7 ), weight 79.4 kg (175 lb), SpO2 96%. GENERAL: WNL nutrition, no deformities, healthy appearing NEURO: Awake, alert and oriented x 3 and Normal gait PSYCH: No signs of depression, anxiety, or agitation ENMT (Ear, Nose, Mouth, Throat): No masses, adenopathy, icterus. Thyroid nonpalpable RESP: NL effort, no retractions or purse-lip breathing. CV: No extremity swelling, varices, edema, pallor, erythema GASTROINTESTINAL: Soft, nontender, nondistended, no masses. HERNIAS: None SKIN: No rash, lesions No palpable lymphadenopathy MUSCULOSKELETAL: Extremities normal. No deformities, edema, clubbing or skin discoloration. PROBLEM LIST REVIEW: Yes LABS: Results for orders placed or performed in visit on 11/19/23 URINALYSIS, WITH MICROSCOPIC Result Value Ref Range Color Yellow Yellow Clarity Turbid (A) Clear Glucose, Urine Negative Negative Bilirubin, Urine Negative Negative Ketones, Urine Negative Negative Specific [place], Ur 1.013 1.005 - 1.030 Hemoglobin/Blood,Ur Negative Negative pH, Urine 7.5 <8.5 Protein, Urine 2+ (A) Negative Urobilinogen 0.2 EU/dL 0.2-1.0 EU/dL Nitrites Negative Negative Leuk Esterase 3+ (A) Negative WBC, Urine >20 /HPF (A) 0-5 /HPF RBC, Urine 3-5 /HPF (A) 0-2 /HPF Bacteria uL >9,821 (H) Negative uL Squamous Epithelial Cells Few /HPF Casts, Hyaline >10 /LPF (A) 0 /LPF CBC + DIFF Result Value Ref Range WBC 6.90 3.70 - 11.00 k/uL RBC 3.01 (L) 4.20 - 6.00 m/uL Hemoglobin 8.6 (L) 13.0 - 17.0 g/dL Hematocrit 27.8 (L) 39.0 - 51.0 % MCV 92.4 80.0 - 100.0 fL MCH 28.6 26.0 - 34.0 pg MCHC 30.9 30.5 - 36.0 g/dL RDW-CV 16.4 (H) 11.5 - 15.0 % Platelet Count 130 (L) 150 - 400 k/uL MPV 9.1 9.0 - 12.7 fL Neutrophils % 62.9 % Abs Neut 4.34 1.45 - 7.50 k/uL Lymphocytes % 19.4 % Abs Lymph 1.34 1.00 - 4.00 k/uL Monocytes % 10.0 % Abs [place] 0.69 <0.87 k/uL Eosinophils % 4.8 % Abs Eosin 0.33 <0.46 k/uL Basophils % 1.2 % Abs Baso 0.08 <0.11 k/uL Immature Granulocytes % 1.7 % Abs Immature Gran 0.12 (H) <0.10 k/uL NRBC 0.0 /100 WBC Absolute nRBC <0.01 <0.01 k/uL Diff Type Auto COMP METABOLIC PANEL Result Value Ref Range Protein, Total 6.3 6.3 - 8.0 g/dL Albumin 3.7 (L) 3.9 - 4.9 g/dL Calcium, Total 11.4 (H) 8.5 - 10.2 mg/dL Bilirubin, Total 0.6 0.2 - 1.3 mg/dL Alkaline Phosphatase 122 (H) 38 - 113 U/L AST 21 14 - 40 U/L ALT 15 10 - 54 U/L Glucose 140 (H) 74 - 99 mg/dL BUN 18 9 - 24 mg/dL Creatinine 4.29 (H) 0.73 - 1.22 mg/dL Sodium 141 136 - 144 mmol/L Potassium 4.4 3.7 - 5.1 mmol/L Chloride 100 97 - 105 mmol/L CO2 28 22 - 30 mmol/L Anion Gap 13 9 - 18 mmol/L Estimated Glomerular Filtration Rate 13 (L) >=60 mL/min/1.73m TACROLIMUS/FK-506 BL Result Value Ref Range Tacrolimus/FK506 7.6 5.0 - 20.0 ng/mL PHOSPHORUS INORGANIC Result Value Ref Range Phosphorus 3.1 2.7 - 4.8 mg/dL URINE CULTURE Specimen: URINE-MIDSTREAM CLEAN CATCH; Urine Random Result Value Ref Range Culture, Urine >=100,000 CFU/ml Klebsiella pneumoniae (A) Susceptibility Klebsiella pneumoniae - MINIMUM INHIBITORY CONCENTRATION(VITEK) Ampicillin Resistant Cefazolin* Susceptible * For uncomplicated urinary tract infections, cefazolin results can be used to predict susceptibility or resistance to cephalexin. Ceftriaxone Susceptible Cefepime Susceptible Ertapenem Susceptible Meropenem Susceptible Ampicillin/Sulbact Susceptible Piperacillin/Tazobac Susceptible Gentamicin Susceptible Tobramycin Susceptible Trimeth sulfameth Susceptible Ciprofloxacin Susceptible Nitrofurantoin Susceptible *Note: Due to a large number of results and/or encounters for the requested time period, some results have not been displayed. A complete set of results can be found in Results Review. Urine Culture: Pending - order given for post-treatment culture PROCEDURES: PVR: 0 ml IMAGING: IMPRESSION/PLAN: 78 year old male with 1. Benign prostatic hyperplasia with urinary hesitancy - ICD9: 600.01, 788.64, ICD10: N40.1, R39.11 (primary diagnosis) 2. Screening for genitourinary condition - ICD9: V81.6, ICD10: Z13.89 3. Chronic kidney disease (CKD), stage IV (severe) ([facility]) - ICD9: 585.4, ICD10: N18.4 4. Acute cystitis without hematuria - ICD9: 595.0, ICD10: N30.00 Pt on dialysis and makes very little urine, but has to wear a pad due to Inability to know when he will have to go, I don't recommend Flomax at this time He will do a trial off Flomax 1 week and see if his Leaking decreases, if he ends in retention and unable to get urine out we will restart it. He just started Bactrim so when he finishes it I want a post- treatment culture 1 week after he finishes it (Order for [facility] given) I spent a total of 30 minutes on the date of the service which included preparing to see the patient, face to face patient care, completing clinical documentation, obtaining and/or reviewing separately obtained history, performing a medically appropriate examination, counseling and educating the patient/family/caregiver, ordering medications, tests, or procedures, and care coordination. VICENTE Martin, MT, DIEGO documented in this encounter [facility] 11-25-2023 History of Presen t illness Narrative Patient's home health 485 form / care plan for certification period 11/16/2023 to 01/14/2024 reviewed and signed. Relevant medical records were reviewed. Changes were communicated to home health agency documented in this encounter [facility] 11-25-2023 Miscellaneous Notes Formattin g of this note is different from the original. The following approved medication requests have been transmitted electronically. Requested Prescriptions Signed Prescriptions Disp Refills torsemide (DEMADEX) 20 mg tablet 60 tablet 5 Sig: Take 2 tablets by mouth once daily. Authorizing Provider: SANJU BANERJEE sertraline (ZOLOFT) 25 mg tablet 30 tablet 5 Sig: Take 1 tablet by mouth once daily. Authorizing Provider: SANJU BANERJEE MD Patient has been identified by name and date of : Yes Spouse phones for refill(s): Requested Prescriptions Pending Prescriptions Disp Refills torsemide (DEMADEX) 20 mg tablet 90 tablet 0 Sig: Take 3 tablets by mouth once daily. sertraline (ZOLOFT) 25 mg tablet 30 tablet 5 Sig: Take 1 tablet by mouth once daily. Date of last office visit in primary care: 11/04/2023 Date of next office visit in primary care: 12/20/2023 Please Note: Per , she stated Dr. Banerjee changed the Torsemide to: Take 2 tablets daily. In addition, can there be refills on this medication. Please send today, he is out of this medication. Please advise. Thank you. Colette Shannon. documented in this encounter [facility] 11-25-2023 Miscellaneous Notes Formattin g of this note might be different from the original. Patient daughter Amberly calling went over results, notes from Dr Banerjee with understanding. Aware rx sent to pharmacy. Amberly will let mother know information below. Let know that I had to send in a new antibiotic. Based on the culture the bacteria that is growing is not sensitive to Doxy. Let know he will only take this antibiotic once a day. On dialysis days needs to take after the dialysis. The following approved medication requests have been transmitted electronically. Requested Prescriptions Signed Prescriptions Disp Refills sulfamethoxazole-trimethoprim (BACTRIM DS) 800-160 mg per tablet 7 tablet 0 Sig: Take 1 tablet by mouth once daily for 7 days. On dialysis days needs to take dose after dialysis. Authorizing Provider: SANJU BANERJEE MD documented in this encounter [facility] 11-23-2023 Miscellaneous Notes Formattin g of this note might be different from the original. Completed in separate phone encounter. Spouse is calling for medication for urine results. Please advise. documented in this encounter [facility] 11-23-2023 Miscellaneous Notes Formattin g of this note might be different from the original. Brittani notified, verbalized understanding. Mihai Phoenix MA Let know UA shows a UTI. Antibiotic sent in. Will also f/u on culture to make sure antibiotic does not need changed. The following approved medication requests have been transmitted electronically. Requested Prescriptions Signed Prescriptions Disp Refills doxycycline (VIBRA-TABS) 100 mg tablet 14 tablet 0 Sig: Take 1 tablet by mouth two times a day for 7 days. Authorizing Provider: SANJU BANERJEE MD documented in this encounter [facility] 11-23-2023 Miscellaneous Notes Formattin g of this note might be different from the original. documented in this encounter [facility] 11-22-2023 Miscellaneous Notes Formattin g of this note might be different from the original. Reviewed and approved. Vito Beauchamp CNP Spoke with daughter, Amberly, who reports patient is hallucinating and seems confused. Amberly states someone in dialysis mentioned to have an ammonia test . Reviewed transaminases which are wnl with the exception of alkaline phosphatase which is mildly elevated at 122 but improving from last lab. Per Amberly, he was tired yesterday and did not want to go to dialysis, but she was able to convince him to go to dialysis. Amberly advised the patient has been wearing diapers as he has been incontinent of urine. Advised elderly people wearing diaper are susceptible to UTI. Suggested he have urine tested as UTI in elderly patients can cause confusion. Amberly is unsure if patient is having any dysuria, frequency, or cloudy urine d/t diapers. Per Amberly patient is not having any back, side, or abdominal pain but does endorse fatigue. Advised will place order for Ammonia level and noted urine culture ordered by PCP. Amberly advised she will go to his house and squeeze the pee out of him . Per Amberly, PCP office suggested they take patient to ED. Advised if unable to obtain urine for culture or above symptoms persist or worsen to go to ED. Amberly verbalized understanding, no further needs at this time. Antoine Estrada RN, BSN, [facility] Liver Binder Operator documented in this encounter [facility] 11-20-2023 Miscellaneous Notes Formattin g of this note might be different from the original. Call placed to spouse Brittani and notified of below message. Brittani voices understanding and will reach out to specialist. Madelyn Oswald RN Let patient's know that when the message was relayed to us it only stated that he was having urinary symptoms and that she was requesting urine test. If he is having confusion and she's concerned about the liver, they should be contacting his gastro and transplant specialist. Claudia Roberts PA-C Spouse (Brittani) calls to report that she was reviewing lab results in and doesn't see the ammonia level that she requested be added yesterday. She reports that she requested it with the urine sample because of increased confusion. Note orders for urinalysis and culture placed. Madelyn Oswald RN documented in this encounter [facility] 11-19-2023 Miscellaneous Notes Formattin g of this note might be different from the original. notified. Terra Dang MA Order placed. Patient is requesting urine sample today when they come in to do labs. Patients stated urine is copper color and smells very strong. Please place a lab order Taylor Narvaez documented in this encounter [facility] 11-08-2023 Miscellaneous Notes Formattin g of this note might be different from the original. Call to Brittani and notified her of message below. She states they went with another Company called [employer]. Yaritza Alford Ma Let Brittani (his ) know we received a call from [facility] and because they are not able to get an assessment completed do to cancelled appointments they are closing the referral. [facility] called regarding Home Health for pt. Indicates they have attempted to have the assessment with pt twice and spouse has indicated that it will not work and cancels. They are closing the referral. documented in this encounter [facility] 11-08-2023 Miscellaneous Notes Formattin g of this note is different from the original. Transplant gave Rx after recent hospitalization. Further refills should come from PCP. Rx routed to PCP. Patient's request for medication is as follows: Requested Prescriptions Pending Prescriptions Disp Refills pantoprazole DR (PROTONIX) 40 mg tablet 90 tablet 3 Sig: Take 1 tablet by mouth once daily. Please approve the above prescription(s) to electronically send to pharmacy. Antoine Estrada RN [facility] faxes in requesting refills on patients behalf as follows: Requesting a 90 day supply Requested Prescriptions Pending Prescriptions Disp Refills pantoprazole DR (PROTONIX) 40 mg tablet 30 tablet 2 Sig: Take 1 tablet by mouth once daily. Please review and advise. documented in this encounter [facility] 11-07-2023 Miscellaneous Notes Formattin g of this note is different from the original. Stable LFTS with high tacrolimus level. Labs r/w Vito Beauchamp CNP who ordered to decrease tacrolimus to 1 mg twice daily. Attempted to call , left detailed vm msg of tacrolimus dose reductions and requested she call me back to confirm updated dosing instructions. I also left a My Chart message of the dose reduction. Updated request for medication is as follows: Requested Prescriptions Pending Prescriptions Disp Refills tacrolimus IR (PROGRAF) 1 mg capsule 60 capsule 11 Sig: Take 1 capsule by mouth two times a day. Z94.4 - liver transplant Please approve the above prescription(s) to electronically send to pharmacy. Antoine Estrada RN, BSN, [facility] Liver Binder Operator documented in this encounter [facility] 11-05-2023 History of Presen t illness Narrative TRANSITION CARE MANAGEMENT (TCM) FOLLOW-UP NOTE Provider Action/FYI Pt stating he is doing pretty good today. Denies any concerning symptoms/needs at this time Still has some SOB but nothing worse since discharge Denies CP, Fever Pt to call PCP for any new/worsening symptoms. Escort Vehicle Driver plan for next outreach: No further follow up needed at this time SARATH Education Ordered -: No Value Hub Disposition Is the patient a Value Hub patient? No. The patient is not a part of the Value Hub. Signature Josep Valencia RN November 05, 2023 documented in this encounter [facility] 11-04-2023 Miscellaneous Notes Formattin g of this note might be different from the original. Noted. Pt's calls to report they are going to use [facility] in [place]. Order in [facility] is for [facility]. Fax order to: [phone]. Went ahead and faxed order in Epic to Donna. Lorena Hernandez LPN documented in this encounter [facility] 11-04-2023 History of Presen t illness Narrative Chief Complaint Patient presents with: Follow Up HPI Isaias Sanon is a 78 year old male who presents here today for follow up. Both are eyes are blood shot. This started night with one eye and then spread to to other eye. At appt last week his BP was running low so he was advised to cut his torsemide back to two a day instead of 3 a day. FBS's for the past week have been 102-129. Past medical history, appointments, medications, allergies reviewed. 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 Denies current abdominal tenderness, and no large volume ascites with need for paracentesis 02/06/2013. Plan: - ? Diuretics - will D/W nephrology Balance problem 06/19/2016 Benign prostatic hyperplasia with urinary hesitancy 10/26/2023 Bilateral leg edema 01/22/2020 BRVO (branch retinal vein occlusion) OS Cataract of both eyes Central retinal vein occlusion with macular edema of right eye Chronic lumbar pain 06/16/2020 Chronic pain of both ankles 12/13/2017 CKD (chronic kidney disease) stage 3, GFR 30-59 ml/min ([facility]) 06/19/[address] Vipul Perez [facility] CKD (chronic kidney disease) stage 4, GFR 15-29 ml/min ([facility]) 06/19/[address] 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 Plan: Continue pantoprazole 40mg qday. Elevated prostate specific antigen (PSA) 10/19/2016 Normal 10/2017 with free PSA at 44% Essential hypertension 05/18/2014 11/08/2014: Home BP Cuff Validated. Home BP: 167/94 pulse 79. Office BP: 157/91 pulse 76. Fecal incontinence 10/26/2023 Gastroesophageal reflux disease without esophagitis 08/24/2015 GIB (gastrointestinal bleeding) 01/13/2013 Patient presents with three episodes of BRBPR onset around 2pm 02/06/2013. He endorses a history of BRBPR during an admission at [facility] in December 2012 for which he states no workup or colonoscopy was performed. During his last admission at [facility] he endorses having passed old blood , and underwent EGD 01/31/13 showing a small polyp/hypertrophied fold at the cardia, severe portal hypertensive gastropathy in the entire stomach, and multiple superficial duodenal ulcers. EGD EUS performed 02/03/13 showed several portal hypertensive gastropathy, and normal endoscopic ultrasound examination of the previous area of concern (polyp vs. gastric fold). He was started on PPI BID and discharged 02/04/13 at which time hemoglobin was 8.6. In the ED 02/06/13, Hgb is 8.4, Hct 24.4, plt 41. Last colonoscopy was 2 years ago per patient, and he reports normal findings to be repeated in 2014. Etiologies of current episode includes internal hemorrhoids (no external hemorrhoids seen on examination), diverticular bleeding, AVM, varice [place] filter in place 04/06/2019 H/O right coronary artery stent placement 08/06/2023 History of alcohol abuse Quit 2011 History of cirrhosis of liver Secondary to alcohol abuse and hemochromatosis. Sees Dr. Doss (at [facility]): Secondary to alcohol abuse and hemochromatosis, currently on transplant list. MELD Score: 35 Plan: - continue home medications: nadolol, norfloxacin, zinc, lactulose, rifaximin, folic acid. 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 Currently alert, oriented x3, no signs of decompensated encephalopathy. Plan: - continue home regimen of lactulose, rifaximin and zinc History of hemochromatosis 08/24/2015 Has not been an issue since liver transplant. Hyperbilirubinemia 01/13/2013 Hypertensive retinopathy mild ICH (intracerebral hemorrhage) (HCC) Imbalance 06/01/2014 Noted at PT eval on 05/31/2014. Incisional hernia 04/07/2014 Liver transplanted (HCC) 04/07/[address] 06/06/2022 DPA: Brittani () Lupus anticoagulant syndrome (HCC) 10/28/2019 Medicare annual wellness visit, subsequent 05/18/2021 Medicare part B: Not able to find Last done: 05/18/2021 Mixed hyperlipidemia 06/23/2014 Obesity, Class I, BMI 30-34.9 10/27/2019 Osteopenia 11/26/2013 Other proteinuria 10/21/2017 Seeing renal Physical debility 10/26/2023 Prostate disorder 05/18/2021 Reactive depression 05/02/2023 Sertraline started 04/2023 Retinal edema S/P angioplasty with stent 08/06/2023 S/P hernia repair 12/13/2021 S/P liver transplant (HCC) 08/06/2023 Secondary hyperparathyroidism of renal origin (HCC) 10/19/2019 Thoracic aorta atherosclerosis (HCC) 10/12/2021 Thrombocytopenia (HCC) 05/18/2014 Tributary (branch) retinal vein occlusion, left eye, with macular edema Urge incontinence of urine 10/26/2023 Vertigo 05/18/2014 Vitreous degeneration Previous Surgical History PAST SURGICAL HISTORY Procedure Laterality Date APPENDECTOMY HX 02/15/2013 AVASTIN (BEVACIZUMAB) 1.25MG INTRAVITREAL INJECTION OD (RIGHT EYE) Right 04/18/2023 LAST AVASTIN (BEVACIZUMAB) 1.25MG INTRAVITREAL INJECTION OD (RIGHT EYE) Right 04/04/2016 CHOLECYSTECTOMY HX 02/15/2013 COLONOSCOPY 02/08/2013 repeat 10 yrs EYLEA (AFLIBERCEPT) 2MG INTRAVITREAL INJECTION OD (RIGHT EYE) Right 04/07/2014 intravitreal injection, Eylea OD FECAL OCCULT BLOOD TEST 09/13/2016 negative MIDLINE INSERTION/CONSULT 02/13/2013 PAST SURGICAL HISTORY OF Tooth extraction PAST SURGICAL HISTORY OF 02/15/2013 liver transplant PAST SURGICAL HISTORY OF 2004 vein stripping Family History FAMILY HISTORY Problem Relation Age of Onset other (MVA) Mother killed other (mva) Father killed other (hemachromatosis) Sister of breast ca at age 75 No Known Problems Sister COPD Sister other (hemachromatosis) Brother does not have any liver problems other (Bone Cancer) Brother No Known Problems Brother No Known Problems Maternal Grandmother No Known Problems Maternal Grandfather No Known Problems Paternal Grandmother No Known Problems Paternal Grandfather No Ocular Disease No Family History nothing known of Anesthesia Problems No Family History Patient Allergies ALLERGIES Allergen Reactions Aldactone [Spironol* Other: See Comments Hyperkalemia Seasonal Allergies Cough Sneezing and watering eyes Current Medications Current Outpatient Medications on File Prior to Visit Medication Sig hydrALAZINE (APRESOLINE) 50 mg tablet Take 1 tablet by mouth every 12 hours. tacrolimus IR (PROGRAF) 1 mg capsule Take 2 capsules by mouth daily at 6 am AND 1 capsule daily at 6 pm. Z94.4 - liver transplant. torsemide (DEMADEX) 20 mg tablet Take 3 tablets by mouth once daily. b complex, c, folic acid 1 mg renal vitamins (NEPHROCAPS) 1 mg capsule Take 1 capsule by mouth once daily. tamsulosin (FLOMAX) 0.4 mg Take 1 capsule by mouth daily at bedtime. blood sugar diagnostic (Softgate SystemsUCH VERIO TEST STRIPS) test strip Use as instructed to check blood glucose level three times a day pantoprazole DR (PROTONIX) 40 mg tablet Take 1 tablet by mouth once daily. aspirin 81 mg chewable tablet Take 1 tablet by mouth once daily. clopidogrel (PLAVIX) 75 mg tablet Take 1 tablet by mouth once daily. carvedilol (COREG) 25 mg tablet Take 1 tablet by mouth two times a day. atorvastatin (LIPITOR) 40 mg tablet Take 1 tablet by mouth daily at bedtime. sertraline (ZOLOFT) 25 mg tablet Take 1 tablet by mouth once daily. dilTIAZem CD (CARDIZEM CD, CARTIA XT) 240 mg 24 hr capsule Take 1 capsule by mouth once daily. Blood Pressure Monitor 1 Each twice daily. pyridoxine, vitamin B6, (VITAMIN B6) 100 mg tablet Take 1 tablet by mouth once daily. Cholecalciferol, Vitamin D3, 5,000 unit tab Take 1 tablet by mouth once daily. Current Facility-Administered Medications on File Prior to Visit Medication perflutren lipid microspheres 1.3 mL in NaCl (PF) 0.9% 10 mL injection (DEFINITY) sodium chloride 0.9 % (flush) 10 mL (BD POSIFLUSH) Social History Social History Tobacco Use Smoking status: Never Smokeless tobacco: Never Vaping Use Vaping Use: Never used Substance Use Topics Alcohol use: No Comment: last drink was in July 2012 Drug use: No Review of Symptoms REVIEW OF SYSTEMS RESPIRATORY: Negative for cough, hemoptysis, wheezing, COPD, dyspnea or shortness of breath. Breathing has been stable CARDIOVASCULAR: Negative for chest pain, increased. leg swelling, hypertension, CHF or palpitations Eyes: patient has bilateral subconjunctival hemorrhages without extension over the iris. EXAM: BP 122/72 (BP Site: Left Arm, BP Position: Sitting, BP Cuff Size: Regular Adult) Pulse 72 Temp 36.2 C (97.1 F) (Tympanic) Resp 18 Wt 83.9 kg (185 lb) SpO2 96% BMI 28.98 kg/m General Appearance: Well appearing, alert, in no acute distress, well-hydrated, well nourished.. Lungs: Lungs clear to auscultation. No wheezing, rhonchi, rales.. Heart: RRR without murmur, gallop, or rubs. No ectopy. Extremities: No deformities. Has his chronic skin changes from venous congestions. He edema is stable from a week ago and over all much better. Health Maintenance List Advance Directive Discussion due on 08/19/2023 Depression Assessment due on 08/19/2023 DTaP,Tdap,Td Vaccine(2 - Td or Tdap) due on 06/20/2024 Shingrix Vaccine(1 of 2) due on 06/20/2024 Covid-19 Vaccine() due on 10/25/2024 HbA1C due on 12/17/2023 LDL Cholesterol due on 06/24/2024 Dilated Retinal Exam due on 07/24/2024 Diabetic Foot Exam due on 09/18/2024 Annual PCP Team Chronic Disease Visit due on 10/25/2024 Serum Creatinine due on 10/25/2024 Hemoglobin/Hematocrit due on 10/25/2024 BP Controlled (<130/80) due on 10/25/2024 Hepatitis B Vaccine Completed Influenza Vaccine Completed RSV Vaccine Completed Hepatitis C Screening Completed Pneumococcal Vaccine: 65+ Completed HPV Vaccine Aged Out Colorectal Cancer Screening Discontinued Data reviewed A/P ASSESSMENT/PLAN: 1. Hemodialysis-associated hypotension - ICD9: 458.21, ICD10: I95.3 (primary diagnosis) - seems to be resolved with cutting back the torsemide to just two tabs a day. - no further changes today 2. Bilateral leg edema - ICD9: 782.3, ICD10: R60.0 - much improved control with being on dialysis. 3. Subconjunctival hemorrhage of both eyes - ICD9: 372.72, ICD10: H11.33 - already showing signs of resolving. Advised to monitor and if there starts to be blood over the iris she needs to contact his eye provider. Otherwise advised on the benign nature and the fact it should resolve over the week. Has future appt 12/20/2023. Sanju Banerjee MD documented in this encounter [facility] 11-01-2023 Miscellaneous Notes Formattin g of this note might be different from the original. Nicole with [facility] called for last OV of PCP. This was faxed to them but did not come thru clearly. Re-faxed to [phone]. Done. Pt was identified by name and date of . Kadi Mtz LPN documented in this encounter [facility] 10-31-2023 Miscellaneous Notes Formattin g of this note might be different from the original. This was probably start by renal when he was in the hospital back in early Sep with NASIR. Will forward to provider. Patient needs a change in pharmacy. Pharmacy verified in Epic Patient has been identified by name and date of : Yes Patient aware RX will be sent to pharmacy. No need to notify patient. Spouse phones for refill(s): Requested Prescriptions Pending Prescriptions Disp Refills hydrALAZINE (APRESOLINE) 50 mg tablet 60 tablet 2 Sig: Take 1 tablet by mouth every 12 hours. Date of last office visit : 10/26/2023 Date of next office visit : 11/04/2023 Last 2 Encounter Wt Readings: Date: Wt: 10/26/2023 84.4 kg (186 lb) 10/09/2023 88.4 kg (194 lb 14.2 oz) Not applicable Please advise. Martina Shannon documented in this encounter [facility] 10-31-2023 Miscellaneous Notes Formattin g of this note is different from the original. The following approved medication requests have been transmitted electronically. Requested Prescriptions Signed Prescriptions Disp Refills tacrolimus IR (PROGRAF) 1 mg capsule 90 capsule 11 Sig: Take 2 capsules by mouth daily at 6 am AND 1 capsule daily at 6 pm. Z94.4 - liver transplant. Authorizing Provider: NATHALY NEVILLE RN Transaminases have normalized after recent rejection in August. Tacrolimus now trending up and r/w Dr. Patel who ordered to decrease tacrolimus to 2 mg in the AM and 1 mg in the PM. Tacrolimus/FK506 Date Value Ref Range Status 10/26/2023 15.4 5.0 - 20.0 ng/mL Final Comment: Individualized target levels for a given patient will depend on many factors (including the type of organ transplant, time since transplantation, concurrent medications, and other clinical factors), and should be assessed by those health care providers experienced in the management of immunosuppression. Reference ranges and high/low indicator flags are provided as general guidelines only. The treating physician must determine appropriate target levels/dosing based on the specific clinical situation. Test performed by chemiluminescent immunoassay using [employer] i. 10/19/2023 12.2 5.0 - 20.0 ng/mL Final Comment: Individualized target levels for a given patient will depend on many factors (including the type of organ transplant, time since transplantation, concurrent medications, and other clinical factors), and should be assessed by those health care providers experienced in the management of immunosuppression. Reference ranges and high/low indicator flags are provided as general guidelines only. The treating physician must determine appropriate target levels/dosing based on the specific clinical situation. Test performed by chemiluminescent immunoassay using [employer] i. 10/16/2023 6.8 5.0 - 20.0 ng/mL Final Comment: Individualized target levels for a given patient will depend on many factors (including the type of organ transplant, time since transplantation, concurrent medications, and other clinical factors), and should be assessed by those health care providers experienced in the management of immunosuppression. Reference ranges and high/low indicator flags are provided as general guidelines only. The treating physician must determine appropriate target levels/dosing based on the specific clinical situation. Test performed by chemiluminescent immunoassay using [employer] i. I spoke with daughter, Amberly, and reviewed labs and IS change above. Amberly read back the new dosing instructions and will start reduced dose tonight. Instructed to remain on weekly labs for now. Per Amberly, patient is doing well with dialysis and kidney doctor is told them they are hopeful his kidneys will recover. He has had several episodes of low BP after dialysis. Encouraged to continue to track BP and share with nephrology. All questions answered, no further needs at this time. Updated request for medication is as follows: Requested Prescriptions Pending Prescriptions Disp Refills tacrolimus IR (PROGRAF) 1 mg capsule 90 capsule 11 Sig: Take 2 capsules by mouth daily at 6 am AND 1 capsule daily at 6 pm. Z94.4 - liver transplant. Please approve the above prescription(s) to electronically send to pharmacy. Antoine Estrada RN, BSN, [facility] Liver Binder Operator documented in this encounter [facility] 10-26-2023 Miscellaneous Notes Formattin g of this note might be different from the original. Thank you for the referral of your patient to [facility]. We are unable to accept your patient. The patient lives outside of our service area. In order to help your patient receive quality home care, we have included reputable agencies that service this area: [facility] -phone , [place] [facility] -phone , [place] [facility] - Please contact these agencies and they will work with your patient to arrange timely services. Thank you, SRINIVASAN Stack 10/26/2023 12:37 PM documented in this encounter [facility] 10-26-2023 Instructions Sanju Banerjee MD - 10/26/2023 10:28 AM EST Cut back on his torsemide 20 mg from three tabs a tad to just two a day. When you come in in 7-10 days bring list of blood sugar readings: date and time they were checked. We will send info over to Dr. Obrien for his bladder issues. Dr. Banerjee placed a referral to home health care. If you do not hear from [facility] home health by Mon or Tues call office and ask for assistance. Call Help desk to help get Amberly access to Isaias's My Chart documented in this encounter [facility] 10-26-2023 History of Presen t illness Narrative Chief Complaint Patient presents with: Hospital F/U HPI Isaias Sanon is a 78 year old male who presents here today for Above Complaints.. HOSPITAL COURSE: (Brought forward from discharge document) 78 year old male who presents with dyspnea and volume overload in the setting of lower urine output, admitted for acute renal failure. 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 #Hypervolemia #NASIR on CKDIV #hyperkalemia #BPH Patient presented with clinical hypervolemia with dyspnea on exertion and anasarca. Initially attempted aggressive IV diuresis, however patient's kidney function worsened without improvement in his symptoms. Patient then planned to start dialysis, had TDC placed 10/14. Patient initiated on dialysis 10/14-10/16. Patient tolerated dialysis well, planned to initiate dialysis OP MWF. Patient also endorsed symptoms of BPH including incomplete emptying and dripping, patient was started on tamsulosin 0.4 mg qhs for BPH. Patient continued on IV diuresis while starting dialysis, discharged per nephrology recommendations on torsemide 60 mg daily. Plan on Discharge: - start torsemide 60 mg daily - start tamsulosin 0.4 mg qhs - follow up appointment with nephrology with Dr. 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 Tacrolimus levels low during admission with initiation of dialysis. Patient's goal tacro level 8 in the setting of his recent rejection. Patient's tacro increased to 3 mg 6am and 2 mg 6pm. Plan on Discharge: - tacro 3 mg 6AM 2mg 6PM - tacro level ordered for patient to get 3-4 days post discharge - pt has follow up appointment with Dr. Chan on 10/23 #T2DM Patient not normally on insulin at home, however had been on insulin while on prolonged steroid taper (planned at recent discharge). As above, patient completed prednisone taper while admitted. Patient discharged without insulin after stopping prednisone. Plan on Discharge: - stop insulin on discharge #Anemia #Thrombocytopenia - Patient's anemia and thrombocytopenia remained stable during admission remained stable during admission #CAD s/p KELLI Patient has history of multivessel coronary artery disease s/p DESx6 07/09/23. - Continued home medications aspirin, plavix, atorvastatin while admitted. #Acute decompensated diastolic heart failure #HFpEF (LVEF 555) Continued home medication regimen with hydralazine 50 q12 hrs, coreg 25 mg BID, diltiazem 240 mg daily #Chronic DVT RLE #Lupus Anticoagulant positive Patient presented with R>L lower extremity edema. DVT US on admission showed stable chronic non-occlusive femoral DVT. Patient has known history of unprovoked DVT with LAC panel positive x2. He was previously on coumadin, however this was discontinued after he developed ICH. He was continued on DAPT during admission, not on therapeutic AC due to history of AC. #Disposition Of note, patient reported to physical therapists that he would decline SNF while admitted. With this knowledge, patient was recommended home PT. Patient is getting dialysis 3 days a week. M, W, F. Patient has been off the insulin and fasting BS's have been in the 130's. Patient was to be set up with [facility] for SN, OT and PHYSICAL THERAPY but that has not happened yet. He is very week. Per he needs two peope to help get him up and get a shower. She would like to have a home health aid to help with some of these issues. Patient can not get up on his own and walk. He is very weak in the legs. Patient is currently in pull ups due to incontinence of stool and urine. Breathing has been improved since prior to admission and his leg swelling is less. Denies any abdominal pain, bloating, nausea or vomiting. Patient has been having difficulty starting urination and dribbles a lot. He says when they tried to place the ernandez in him during recent admission they had difficulty getting it in. He was started on Flomax but has not noted any improvement. Past medical history, appointments, medications, allergies reviewed. 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 Denies current abdominal tenderness, and no large volume ascites with need for paracentesis 02/06/2013. Plan: - ? Diuretics - will D/W nephrology Balance problem 06/19/2016 Bilateral leg edema 01/22/2020 BRVO (branch retinal vein occlusion) OS Cataract of both eyes Central retinal vein occlusion with macular edema of right eye Chronic lumbar pain 06/16/2020 Chronic pain of both ankles 12/13/2017 CKD (chronic kidney disease) stage 3, GFR 30-59 ml/min ([facility]) 06/19/[address] Vipul Perez [facility] CKD (chronic kidney disease) stage 4, GFR 15-29 ml/min ([facility]) 06/19/[address] 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 Plan: Continue pantoprazole 40mg qday. Elevated prostate specific antigen (PSA) 10/19/2016 Normal 10/2017 with free PSA at 44% Essential hypertension 05/18/2014 11/08/2014: Home BP Cuff Validated. Home BP: 167/94 pulse 79. Office BP: 157/91 pulse 76. Gastroesophageal reflux disease without esophagitis 08/24/2015 GIB (gastrointestinal bleeding) 01/13/2013 Patient presents with three episodes of BRBPR onset around 2pm 02/06/2013. He endorses a history of BRBPR during an admission at [facility] in December 2012 for which he states no workup or colonoscopy was performed. During his last admission at [facility] he endorses having passed old blood , and underwent EGD 01/31/13 showing a small polyp/hypertrophied fold at the cardia, severe portal hypertensive gastropathy in the entire stomach, and multiple superficial duodenal ulcers. EGD EUS performed 02/03/13 showed several portal hypertensive gastropathy, and normal endoscopic ultrasound examination of the previous area of concern (polyp vs. gastric fold). He was started on PPI BID and discharged 02/04/13 at which time hemoglobin was 8.6. In the ED 02/06/13, Hgb is 8.4, Hct 24.4, plt 41. Last colonoscopy was 2 years ago per patient, and he reports normal findings to be repeated in 2014. Etiologies of current episode includes internal hemorrhoids (no external hemorrhoids seen on examination), diverticular bleeding, AVM, varice Tony filter in place 04/06/2019 H/O right coronary artery stent placement 08/06/2023 History of alcohol abuse Quit 2011 History of cirrhosis of liver Secondary to alcohol abuse and hemochromatosis. Sees Dr. Doss (at [facility]): Secondary to alcohol abuse and hemochromatosis, currently on transplant list. MELD Score: 35 Plan: - continue home medications: nadolol, norfloxacin, zinc, lactulose, rifaximin, folic acid. 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 Currently alert, oriented x3, no signs of decompensated encephalopathy. Plan: - continue home regimen of lactulose, rifaximin and zinc History of hemochromatosis 08/24/2015 Has not been an issue since liver transplant. Hyperbilirubinemia 01/13/2013 Hypertensive retinopathy mild ICH (intracerebral hemorrhage) (HCC) Imbalance 06/01/2014 Noted at PT eval on 05/31/2014. Incisional hernia 04/07/2014 Liver transplanted (HCC) 04/07/[address] 06/06/2022 DPA: Brittani () Lupus anticoagulant syndrome (HCC) 10/28/2019 Medicare annual wellness visit, subsequent 05/18/2021 Medicare part B: Not able to find Last done: 05/18/2021 Mixed hyperlipidemia 06/23/2014 Obesity, Class I, BMI 30-34.9 10/27/2019 Osteopenia 11/26/2013 Other proteinuria 10/21/2017 Seeing renal Prostate disorder 05/18/2021 Reactive depression 05/02/2023 Sertraline started 04/2023 Retinal edema S/P angioplasty with stent 08/06/2023 S/P hernia repair 12/13/2021 S/P liver transplant (HCC) 08/06/2023 Secondary hyperparathyroidism of renal origin (HCC) 10/19/2019 Thoracic aorta atherosclerosis (HCC) 10/12/2021 Thrombocytopenia (HCC) 05/18/2014 Tributary (branch) retinal vein occlusion, left eye, with macular edema Vertigo 05/18/2014 Vitreous degeneration Previous Surgical History PAST SURGICAL HISTORY Procedure Laterality Date APPENDECTOMY HX 02/15/2013 AVASTIN (BEVACIZUMAB) 1.25MG INTRAVITREAL INJECTION OD (RIGHT EYE) Right 04/18/2023 LAST AVASTIN (BEVACIZUMAB) 1.25MG INTRAVITREAL INJECTION OD (RIGHT EYE) Right 04/04/2016 CHOLECYSTECTOMY HX 02/15/2013 COLONOSCOPY 02/08/2013 repeat 10 yrs EYLEA (AFLIBERCEPT) 2MG INTRAVITREAL INJECTION OD (RIGHT EYE) Right 04/07/2014 intravitreal injection, Eylea OD FECAL OCCULT BLOOD TEST 09/13/2016 negative MIDLINE INSERTION/CONSULT 02/13/2013 PAST SURGICAL HISTORY OF Tooth extraction PAST SURGICAL HISTORY OF 02/15/2013 liver transplant PAST SURGICAL HISTORY OF 2004 vein stripping Family History FAMILY HISTORY Problem Relation Age of Onset other (MVA) Mother killed other (mva) Father killed other (hemachromatosis) Sister of breast ca at age 75 No Known Problems Sister COPD Sister other (hemachromatosis) Brother does not have any liver problems other (Bone Cancer) Brother No Known Problems Brother No Known Problems Maternal Grandmother No Known Problems Maternal Grandfather No Known Problems Paternal Grandmother No Known Problems Paternal Grandfather No Ocular Disease No Family History nothing known of Anesthesia Problems No Family History Patient Allergies ALLERGIES Allergen Reactions Aldactone [Spironol* Other: See Comments Hyperkalemia Seasonal Allergies Cough Sneezing and watering eyes Current Medications Current Outpatient Medications on File Prior to Visit Medication Sig tacrolimus IR (PROGRAF) 1 mg capsule Take 3 capsules by mouth daily at 6 am. Patient should start on October 17, 2023. tacrolimus IR (PROGRAF) 1 mg capsule Take 2 capsules by mouth daily at 6 pm. torsemide (DEMADEX) 20 mg tablet Take 3 tablets by mouth once daily. b complex, c, folic acid 1 mg renal vitamins (NEPHROCAPS) 1 mg capsule Take 1 capsule by mouth once daily. tamsulosin (FLOMAX) 0.4 mg Take 1 capsule by mouth daily at bedtime. hydrALAZINE (APRESOLINE) 50 mg tablet Take 1 tablet by mouth every 12 hours. Blood-Glucose Meter (FREESTYLE LITE METER) monitoring kit Use as directed to check blood glucose levels three times a day blood sugar diagnostic ([employer]CH VERIO TEST STRIPS) test strip Use as instructed to check blood glucose level three times a day pantoprazole DR (PROTONIX) 40 mg tablet Take 1 tablet by mouth once daily. aspirin 81 mg chewable tablet Take 1 tablet by mouth once daily. clopidogrel (PLAVIX) 75 mg tablet Take 1 tablet by mouth once daily. carvedilol (COREG) 25 mg tablet Take 1 tablet by mouth two times a day. atorvastatin (LIPITOR) 40 mg tablet Take 1 tablet by mouth daily at bedtime. sertraline (ZOLOFT) 25 mg tablet Take 1 tablet by mouth once daily. dilTIAZem CD (CARDIZEM CD, CARTIA XT) 240 mg 24 hr capsule Take 1 capsule by mouth once daily. Blood Pressure Monitor 1 Each twice daily. pyridoxine, vitamin B6, (VITAMIN B6) 100 mg tablet Take 1 tablet by mouth once daily. Cholecalciferol, Vitamin D3, 5,000 unit tab Take 1 tablet by mouth once daily. Current Facility-Administered Medications on File Prior to Visit Medication perflutren lipid microspheres 1.3 mL in NaCl (PF) 0.9% 10 mL injection (DEFINITY) sodium chloride 0.9 % (flush) 10 mL (BD POSIFLUSH) Social History Social History Tobacco Use Smoking status: Never Smokeless tobacco: Never Vaping Use Vaping Use: Never used Substance Use Topics Alcohol use: No Comment: last drink was in July 2012 Drug use: No Review of Symptoms REVIEW OF SYSTEMS See HPI EXAM: BP 90/50 (BP Site: Left Arm, BP Position: Sitting, BP Cuff Size: Regular Adult) Pulse 77 Temp 36.5 C (97.7 F) Resp 16 Wt 84.4 kg (186 lb) BMI 29.13 kg/m General Appearance: Well appearing, alert, in no acute distress, well-hydrated, well nourished.. Lungs: Lungs clear to auscultation. No wheezing, rhonchi, rales.. Heart: RRR no M/R/G. Abdomen: Normal abdominal exam, Abdomen soft, non-tender. Bowel sounds normal. No masses, organomegaly. Extremities: No deformities, edema is very little down at the ankles. Much improved. Has chronic venous stasis changes. Good capillary refill. . Health Maintenance List BP Controlled (<130/80) due on 11/16/2022 Advance Directive Discussion due on 08/19/2023 Depression Assessment due on 08/19/2023 DTaP,Tdap,Td Vaccine(2 - Td or Tdap) due on 06/20/2024 Shingrix Vaccine(1 of 2) due on 06/20/2024 Covid-19 Vaccine(5 - season) due on 10/25/2024 HbA1C due on 12/17/2023 LDL Cholesterol due on 06/24/2024 Dilated Retinal Exam due on 07/24/2024 Annual PCP Team Chronic Disease Visit due on 09/06/2024 Diabetic Foot Exam due on 09/18/2024 Serum Creatinine due on 10/18/2024 Hemoglobin/Hematocrit due on 10/18/2024 Hepatitis B Vaccine Completed Influenza Vaccine Completed RSV Vaccine Completed Hepatitis C Screening Completed Pneumococcal Vaccine: 65+ Completed HPV Vaccine Aged Out Colorectal Cancer Screening Discontinued Data reviewed A/P ASSESSMENT/PLAN: 1. Hemodialysis-associated hypotension - ICD9: 458.21, ICD10: I95.3 (primary diagnosis) - will have patient reduce his torsemide to just two a day. - f/u in 7-10 days to recheck BP. 2. Chronic kidney disease (CKD), stage IV (severe) (HCC) - ICD9: 585.4, ICD10: N18.4 - on dialysis and seeing renal - as above 3. Type 2 diabetes mellitus with stage 4 chronic kidney disease, with long-term current use of insulin (HCC) - ICD9: 250.40, 585.4, V58.67, ICD10: E11.22, N18.4, Z79.4 - patient off the steroids so insulin has chelsea stopped. Home BS's sound to be in a more favorable range. Will monitor. 4. Liver transplant status (HCC) - ICD9: V42.7, ICD10: Z94.4 - cont management with transplant team. 5. Anasarca - ICD9: 782.3, ICD10: R60.1 - much improved with current Tx. 6. Urge incontinence of urine - ICD9: 788.31, ICD10: N39.41 - would benefit from DME supply of pull ups and any needed supplies. - CONSULT TO [facility] 7. Benign prostatic hyperplasia with urinary hesitancy - ICD9: 600.01, 788.64, ICD10: N40.1, R39.11 - CONSULT TO UROLOGY: Dr. Obrien 8. Incontinence of feces, unspecified fecal incontinence type - ICD9: 787.60, ICD10: R15.9 - as per #6 - CONSULT TO [facility] 9. Physical debility - ICD9: 799.3, ICD10: R53.81 - CONSULT TO [facility]: for care home, PHYSICAL THERAPY and OT 10. Decreased transfer ability - ICD9: 780.99, ICD10: Z74.09 - CONSULT TO [facility]: for care home, PHYSICAL THERAPY and OT I spent a total of 42 minutes on the date of the service which included preparing to see the patient, [id number] patient care, completing clinical documentation, performing a medically appropriate examination, counseling and educating the patient/family/caregiver and ordering medications, tests, or procedures. F/u in 7-10 days to f/u on BP Sanju Banerjee MD documented in this encounter [facility] 10-24-2023 History of Presen t illness Narrative DEPARTMENT OF GASTROENTEROLOGY - FOLLOW UP VISIT Patient agrees to proceed with a virtual visit. I spent a total of 30 minutes during this real-time, interactive virtual clinical encounter, which was conducted virtually using HIPAA compliant videoconferencing technology. Greater than 50% of the time spent was devoted to counseling and coordinating care including review of records, pertinent lab data and studies, as well as discussing diagnostic evaluation and work up, planned therapeutic interventions and future disposition of care. This includes any additional research needed to obtain further information in formulating the plan of care of this patient. This includes counseling the patient about disease and diagnosis. HISTORY OF PRESENT ILLNESS Isaias Sanon is a 78 year old male who presents today for follow up. He has been doing better since discharge. He is tolerating HD (still has low bp with HD) and is awaiting home PT for LE weakness. Last Tacro level was 12.2 (5 days ago). Hemoglobin (g/dL) Date Value 10/19/2023 8.0 10/07/2021 9.5 Hematocrit (%) Date Value 10/19/2023 26.4 10/07/2021 30.3 WBC (k/uL) Date Value 10/19/2023 5.27 10/07/2021 6.92 Glucose (mg/dL) Date Value 10/19/2023 156 10/07/2021 129 Potassium (mmol/L) Date Value 10/19/2023 4.3 10/07/2021 5.8 Sodium (mmol/L) Date Value 10/19/2023 139 10/07/2021 137 Chloride (mmol/L) Date Value 10/19/2023 97 10/07/2021 104 CO2 (mmol/L) Date Value 10/19/2023 30 10/07/2021 22 Creatinine (mg/dL) Date Value 10/19/2023 3.62 10/07/2021 2.79 BUN (mg/dL) Date Value 10/19/2023 26 10/07/2021 43 Anion Gap (mmol/L) Date Value 10/19/2023 12 10/07/2021 11 Calcium (mg/dL) Date Value 10/07/2021 10.0 Calcium, Total (mg/dL) Date Value 10/19/2023 9.9 Protein, Total (g/dL) Date Value 10/19/2023 6.1 10/07/2021 6.6 Albumin (g/dL) Date Value 10/19/2023 3.6 10/07/2021 3.9 Bilirubin, Total (mg/dL) Date Value 10/19/2023 0.8 10/07/2021 0.4 Alkaline Phosphatase (U/L) Date Value 10/19/2023 87 10/07/2021 101 AST (U/L) Date Value 10/19/2023 32 10/07/2021 18 ALT (U/L) Date Value 10/19/2023 13 10/07/2021 18 Current Outpatient Medications Medication Sig Dispense Refill tacrolimus IR (PROGRAF) 1 mg capsule Take 3 capsules by mouth daily at 6 am. Patient should start on October 17, 2023. 90 capsule 2 tacrolimus IR (PROGRAF) 1 mg capsule Take 2 capsules by mouth daily at 6 pm. 60 capsule 2 torsemide (DEMADEX) 20 mg tablet Take 3 tablets by mouth once daily. 90 tablet 0 b complex, c, folic acid 1 mg renal vitamins (NEPHROCAPS) 1 mg capsule Take 1 capsule by mouth once daily. 30 capsule 0 tamsulosin (FLOMAX) 0.4 mg Take 1 capsule by mouth daily at bedtime. 30 capsule 0 hydrALAZINE (APRESOLINE) 50 mg tablet Take 1 tablet by mouth every 12 hours. 60 tablet 2 Blood-Glucose Meter (FREESTYLE LITE METER) monitoring kit Use as directed to check blood glucose levels three times a day 1 Each 0 blood sugar diagnostic (ONETOUCH VERIO TEST STRIPS) test strip Use as instructed to check blood glucose level three times a day [address] (PROTONIX) 40 mg tablet Take 1 tablet by mouth once daily. 30 tablet 2 aspirin 81 mg chewable tablet Take 1 tablet by mouth once daily. 90 tablet 3 clopidogrel (PLAVIX) 75 mg tablet Take 1 tablet by mouth once daily. 90 tablet 3 carvedilol (COREG) 25 mg tablet Take 1 tablet by mouth two times a day. 60 tablet 5 atorvastatin (LIPITOR) 40 mg tablet Take 1 tablet by mouth daily at bedtime. 30 tablet 5 sertraline (ZOLOFT) 25 mg tablet Take 1 tablet by mouth once daily. 30 tablet 5 dilTIAZem CD (CARDIZEM CD, CARTIA XT) 240 mg 24 hr capsule Take 1 capsule by mouth once daily. 30 capsule 11 Blood Pressure Monitor 1 Each twice daily. 1 Kit 0 pyridoxine, vitamin B6, (VITAMIN B6) 100 mg tablet Take 1 tablet by mouth once daily. 100 tablet 2 Cholecalciferol, Vitamin D3, 5,000 unit tab Take 1 tablet by mouth once daily. 0 Current Facility-Administered Medications Medication Dose Route Frequency Provider Last Rate Last Admin perflutren lipid microspheres 1.3 mL in NaCl (PF) 0.9% 10 mL injection (DEFINITY) INTRAVENOUS DIRECTED PRN Jonah Dawson MD sodium chloride 0.9 % (flush) 10 mL (BD POSIFLUSH) 10 mL INTRAVENOUS DIRECTED PRN Jonah Dawson MD ALLERGIES Allergen Reactions Aldactone [Spironol* Other: See Comments Hyperkalemia Seasonal Allergies Cough Sneezing and watering eyes REVIEW OF SYSTEMS EyesNegative for vision changes, diplopia or epiphora. Ears, Mouth, nose, throat:No problems Cardiovascular: No Problems Respiratory: Negative for cough, wheezing and shortness of breath Gastrointestinal : No problems Genitourinary: Negative Musuloskeletal: Leg weakness PHYSICAL EXAMINATION There were no vitals taken for this visit. General Appearance: alert, oriented x 3, pleasant and in no acute distress Liver biopsy 09/2023 FINAL DIAGNOSIS A. Liver allograft, biopsy (~10 years 7 months post OLT): - No evidence of T-cell mediated rejection, see comment. Diagnosis Comment Compared to the prior biopsy ([id number]), there is a significant decrease in portal inflammation and bile duct injury in the current biopsy. Mild lymphocyte predominant inflammation is noted in a single portal area. Occasional bile duct epithelial irregularities are noted in 2 portal areas. There is no evidence of endotheliitis. The remaining portal areas contain [id number] lymphocytic inflammation. The lobules contain scattered lymphocytic inflammation and extremely rare acidophil bodies, but are essentially free from steatosis and cholestasis. Trichrome stain does not reveal significant fibrosis. Overall, there is no evidence of T-cell mediated rejection. Assessment IMPRESSION Mr. Sanon is a 78 year old year old male with HTN, HL, CAD s/p PCI (on DAPT), alc and hemochromatosis related cirrhosis s/p OLT (02/15/2013) c/b ventral hernia s/p TAR (11/22/21), T cell mediated rejection in 08/2023 s/p prednisone taper, NASIR on CKD now on HD who presents for follow up after recent hospitalization for fluid overload and NASIR. He is currently on HD and feels better than before discharge. Still has issue with low bp during HD session and is following closely with renal. PLAN Continue Tacro at 3/2 and check trough level twice weekly for further titration to goal of 8 Continue HD and Torsemide and Tamsulosin and follow up with renal Annual skin exam Continue to optimize control of underlying metabolic syndrome Home PT Plan is to follow up in three months. Raisa Chan MD October 24, 2023 8:33 AM documented in this encounter [facility] 10-17-2023 History of Presen t illness Narrative POPULATION HEALTH NAVIGATION OUTREACH Action/FYI TCM Hospital Discharge Follow up. TCM Eligible until 10/29/22 Spoke with patient's spouse; scheduled appointment for 10/25 Patient Identified by Name and : NO Outreach Outcome/Action Spoke to patient / parent / legal guardian: Patient scheduled Did you use a PCP flex slot to schedule this appointment? No Reason for Outreach Community Monitoring Pool Payer: Payor: O MEDICARE / Plan: MMO MEDADVANTAGE HMO / Product Type: HMO / Care Gap Reviewed:: Follow-up appointment Reminder: Reminder note to check Health Maintenance for items below Health Maintenance items due: BP Controlled (<130/80) due on 11/16/2022 Covid-19 Vaccine() due on 04/19/2023 Advance Directive Discussion due on 08/19/2023 Depression Assessment due on 08/19/2023 Navigation Signature: Lakesha Willson MA October 17, 2023 10:48 AM TCM Home Visit Referral Source of Stratification: [facility] Hospital Admission Status: Discharged Readmission Risk Score: 44 JEREMY Score: 17 Patient meets program referral criteria: No -Not in network for HRTIC. Josep Valencia RN October 17, 2023 9:15 AM TRANSITIONAL CARE MANAGEMENT (TCM) COMMUNITY MONITORING PROGRAM Provider Action/FYI: Appts: 10/23-[facility]; 12/01-[facility]; 12/19-PCP Navigation Team Please assist with scheduling TCM Hospital Discharge Follow up. TCM Eligible until 10/29/22 Thank you Pt feeling slightly better since discharge Pt is having trouble urinating. He is urinating little amounts and has frequency. Has some pressure in his bladder. Advised ED for prolonged time without urination and or worsening pressure/pain in bladder area. Denies SOB, CP Swelling has improved since discharge Dialysis M, W, F Pt has anxiety since discharge. Declining BHSW at this time. Will follow up with PCP. Pt to call PCP for any new/worsening symptoms. SUMMARY: Discharge Network Status: In-Network Discharge Pt discharged from [facility] on 10/16[facility]23. Admitted for: Volume overload Contact made with patient: Yes Hi my name is Josep Valencia RN and I am calling from the [facility] on behalf of your PCP, Sanju Banerjee MD I understand you were recently in the hospital so I am calling to check in with you to ensure you are feeling well now that you're home. May I ask you a few questions related to your hospital stay and well-being? Yes Contact with patient post discharge, spoke to patient and spouse. Patient identified by name and . Do you feel your health is BETTER, WORSE, or the SAME since leaving the hospital? Better ACTION TAKEN: Patient indicated symptoms are better or same, no action required. Continue outreach. MEDICATIONS: Many patients have questions or concerns about their medications once they are home. Do you have any questions about taking your medications or which medication you should be on? No Do you need any medication refills at this time, including any of the medications you might take only when needed? No ACTION TAKEN: No action required For RNs or Pharmacy completing outreach ONLY, was a medication review completed? No Declined SOCIAL: We would like to make sure you have what you need so that your basics needs are met - including your personal safety, food, housing and medications. Would you like to speak with a social work steamship agent to help give you support for any of these needs? No It can be normal to feel anxious or down during a time like this. Would you like to talk to a mental health professional about how you have been feeling? No ACTION TAKEN: No action taken DISCHARGE INTRUCTIONS: Your discharge instructions / After Visit Summary (AVS) are important in guiding you through the recovery process. Do you have any questions related to your discharge instructions? No Do you have all the necessary equipment and supplies at home? Yes ACTION TAKEN: No action required I would like to help you schedule a hospital follow-up virtual or telephone visit with your PCP. This is a great way for you to connect with your provider to ensure you have safely transitioned home. If you are agreeable, I will send your request to a surgical scheduler who will contact and assist you with that appointment. This will give you an opportunity to ask any questions or address any concerns you may have with your PCP. Inform the patient that if they have any questions or concerns prior to that appointment, to call their PCP's office right away. ACTION TAKEN: Patient desires an appointment - Routed to [facility] [[phone]] for scheduling telehealth visit (telephonic, virtual visit, or Facetime) within 7 days of discharge with PCP care team. Indicate hospital follow-up appointment needed within 7 days in Provider/FYI box. End Outreach. Your doctor would like us to remind you of the recommendations regarding the coronavirus (Covid19) outbreak: Avoid public places as much as possible. Avoid close contact (within 6 feet) with others you don t live with, especially if they are sick. Stay home if you are sick. Wash your hands regularly for at least 20 seconds with soap and water. Wear a cloth mask in public places to help reduce community spread. Do not go to your Doctor s office unless instructed to do so. For any non-emergency symptoms, call your Doctor s office to get instructions on how to manage (we might recommend a telephone or virtual visit). For emergency symptoms, proceed to Emergency Department as usual but inform them of cough and fever symptoms EVON if present (or call on the way if possible). SARATH Education Ordered -: No documented in this encounter [facility] 10-17-2023 History of Presen t illness Narrative TRANSITION CARE MANAGEMENT (TCM) PHARMACY CONTACT Provider Action/FYI: TCM Medication Reconciliation completed for patient. See medication list table below for details. No further action required at this time Initial contact with patient post discharge, spoke to spouse, ,, and verified that any applicable caregiver is active in patient's medical care. Patient identified by name and . Summary: -Pt discharged from [facility] on 10/16/23. -Medication review done: Full medication review completed Patient Concerns: Review and discussion of medications with spouse, , as outlined in medication table below. Source of medication information obtained from Prescription bottle and Medication list. Dispense records from pharmacy also utilized to obtain additional medication fill history. No additional reported medication questions or concerns at this time. History of Present Illness: The following content has been copied and pasted from patient's discharge summary. If discharge summary unavailable, After Visit Summary or last pertinent inpatient notes are copied and pasted. TRANSITIONS OF CARE CRITICAL ISSUES: [place] MEDICATION CHANGES: START Torsemide 60 mg daily START Nephrocaps START Flomax (tamsulosin) 0.4 mg daily at bedtime CHANGE tacrolimus to 3 mg daily at 6 am and 2 mg daily at 6 pm. STOP insulin due to prednisone taper being stopped while inpatient LAB MONITORING NEEDED: Test CMP, tacro When 3-4 days post discharge IMAGING FOLLOW-UP: Not applicable LABS AND PROCEDURES PENDING AT DISCHARGE: No FOLLOW UP: Future Appointments Date Time Provider Department Center 10/24/2023 8:30 AM Raisa Chan MD [facility] A Bldg 12/02/2023 9:20 AM Noman Fontenot MD [facility] 12/20/2023 11:00 AM Sanju Banerjee MD [facility] ON LICENSE OF [facility] 01/16/2024 10:50 AM Noman Fontenot MD [facility] Mn Q dg 02/26/2024 11:45 AM Wire Cutter, Liver TXCT[facility] Ca A dg REASON FOR HOSPITALIZATION: Volume overload PRINCIPAL DIAGNOSIS: Volume overload SECONDARY DIAGNOSIS: Principal Problem: Volume overload (POA: Yes) Active Problems: Anasarca (POA: Yes) Benign hypertensive CKD, stage 5 chronic kidney disease or end stage renal disease (HCC) (POA: Yes) CKD (chronic kidney disease) stage 4, GFR 15-29 ml/min (HCC) (POA: Yes) Resolved Problems: Azotemia (POA: Yes) HOSPITAL COURSE: 78 year old male who presents with dyspnea and volume overload in the setting of lower urine output, admitted for acute renal failure. 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 #Hypervolemia #NASIR on CKDIV #hyperkalemia #BPH Patient presented with clinical hypervolemia with dyspnea on exertion and anasarca. Initially attempted aggressive IV diuresis, however patient's kidney function worsened without improvement in his symptoms. Patient then planned to start dialysis, had TDC placed 10/14. Patient initiated on dialysis 10/14-10/16. Patient tolerated dialysis well, planned to initiate dialysis OP MWF. Patient also endorsed symptoms of BPH including incomplete emptying and dripping, patient was started on tamsulosin 0.4 mg qhs for BPH. Patient continued on IV diuresis while starting dialysis, discharged per nephrology recommendations on torsemide 60 mg daily. Plan on Discharge: - start torsemide 60 mg daily - start tamsulosin 0.4 mg qhs - follow up appointment with nephrology with Dr. Fontenot on 12/01 #History of Cirrhosis s/p OLT (02/15/2013) 2/ alcohol related liver disease and hemachromatosis Patient continued on prednisone taper he was discharged with on prior hospitalization with prednisone 5 mg daily until 10/15. Tacrolimus levels low during admission with initiation of dialysis. Patient's goal tacro level 8 in the setting of his recent rejection. Patient's tacro increased to 3 mg 6am and 2 mg 6pm. Plan on Discharge: - tacro 3 mg 6AM 2mg 6PM - tacro level ordered for patient to get 3-4 days post discharge - pt has follow up appointment with Dr. Chan on 10/23 #T2DM Patient not normally on insulin at home, however had been on insulin while on prolonged steroid taper (planned at recent discharge). As above, patient completed prednisone taper while admitted. Patient discharged without insulin after stopping prednisone. Plan on Discharge: - stop insulin on discharge #Anemia #Thrombocytopenia - Patient's anemia and thrombocytopenia remained stable during admission remained stable during admission #CAD s/p KELLI Patient has history of multivessel coronary artery disease s/p DESx6 07/09/23. - Continued home medications aspirin, plavix, atorvastatin while admitted. #Acute decompensated diastolic heart failure #HFpEF (LVEF 555) Continued home medication regimen with hydralazine 50 q12 hrs, coreg 25 mg BID, diltiazem 240 mg daily #Chronic DVT RLE #Lupus Anticoagulant positive Patient presented with R>L lower extremity edema. DVT US on admission showed stable chronic non-occlusive femoral DVT. Patient has known history of unprovoked DVT with LAC panel positive x2. He was previously on coumadin, however this was discontinued after he developed ICH. He was continued on DAPT during admission, not on therapeutic AC due to history of AC. #Disposition Of note, patient reported to physical therapists that he would decline SNF while admitted. With this knowledge, patient was recommended home PT. Medication Reconciliation: Legend: Stopped, New, Changed, Added to list Medication List Medication Directions Comments Action/Plan aspirin 81 mg chewable tablet Take 1 tablet by mouth once daily. atorvastatin (LIPITOR) 40 mg tablet Take 1 tablet by mouth daily at bedtime. on pharmacy dispense records with recent fill hx b complex, c, folic acid 1 mg renal vitamins (NEPHROCAPS) 1 mg capsule Take 1 capsule by mouth once daily. e- [facility] Patient reportedly taking as prescribed without any issues Filled as Triphrocaps Blood Pressure Monitor 1 Each twice daily. blood sugar diagnostic (ONETOUCH VERIO TEST STRIPS) test strip Use as instructed to check blood glucose level three times a day Has both freestyle and one touch meters at home, is still testing once daily in the morning. on pharmacy dispense records with recent fill hx Blood-Glucose Meter (FREESTYLE LITE METER) monitoring kit Use as directed to check blood glucose levels three times a day on pharmacy dispense records with recent fill hx carvedilol (COREG) 25 mg tablet Take 1 tablet by mouth two times a day. on pharmacy dispense records with recent fill hx Cholecalciferol, Vitamin D3, 5,000 unit tab Take 1 tablet by mouth once daily. clopidogrel (PLAVIX) 75 mg tablet Take 1 tablet by mouth once daily. on pharmacy dispense records with recent fill hx dilTIAZem CD (CARDIZEM CD, CARTIA XT) 240 mg 24 hr capsule Take 1 capsule by mouth once daily. on pharmacy dispense records with recent fill hx hydrALAZINE (APRESOLINE) 50 mg tablet Take 1 tablet by mouth every 12 hours. on pharmacy dispense records with recent fill hx Discontinued: 10/16/2023 1:44 PM STOP insulin due to prednisone taper being stopped while inpatient Discontinued: 10/16/2023 1:44 PM STOP insulin due to prednisone taper being stopped while inpatient Discontinued: 10/16/2023 1:44 PM Discontinued: 10/16/2023 1:[address] (PROTONIX) 40 mg tablet Take 1 tablet by mouth once daily. on pharmacy dispense records with recent fill hx Last [facility] [address] 10/10 Discontinued: 10/16/2023 1:44 PM Not longer taking pyridoxine, vitamin B6, (VITAMIN B6) 100 mg tablet Take 1 tablet by mouth once daily. sertraline (ZOLOFT) 25 mg tablet Take 1 tablet by mouth once daily. on pharmacy dispense records with recent fill hx Discontinued: 10/16/2023 1:44 PM Not longer taking Discontinued: 10/16/2023 1:44 PM tacrolimus IR (PROGRAF) 1 mg capsule Take 3 capsules by mouth daily at 6 am. Patient should start on October 17, 2023. on pharmacy dispense records with recent fill hx kevin SANTANA Has 1mg capsules at home from previous Rx CHANGE tacrolimus to 3 mg daily at 6 am and 2 mg daily at 6 pm. Test CMP, tacro When 3-4 days post discharge tacrolimus IR (PROGRAF) 1 mg capsule Take 2 capsules by mouth daily at 6 pm. kevin SANTANA Has 1mg capsules at home from previous Rx tamsulosin (FLOMAX) 0.4 mg Take 1 capsule by mouth daily at bedtime. e- MICHAEL Patient reportedly taking as prescribed without any issues torsemide (DEMADEX) 20 mg tablet Take 3 tablets by mouth once daily. e- FITO Patient reportedly taking as prescribed without any issues Potassium Date Value Ref Range Status 10/16/2023 3.6 (L) 3.7 - 5.1 mmol/L Final 10/15/2023 4.5 3.7 - 5.1 mmol/L Final 10/14/2023 4.6 3.7 - 5.1 mmol/L Final Preferred pharmacy: [id number] [place] [address] - [address] [place] [address] [id number] [facility] [id number] Estimated Creatinine Clearance: 17.4 mL/min (A) (based on SCr of 3.71 mg/dL (H)). Estimated Glomerular Filtration Rate (mL/min/1.73m ) Date Value 10/16/2023 16 (L) eGFR- (no units) Date Value 10/07/2021 27 Additional follow up: Next 5 Appointments Date and Time Provider Department Dept Phone 10/24/2023 8:30 AM Raisa Chan [facility] 12/02/2023 9:20 AM Noman Fontenot [facility] [phone] 12/20/2023 11:00 AM Sanju Banerjee [facility] [facility] [phone] 01/16/2024 10:50 AM Noman Fontenot [facility] [phone] 02/26/2024 11:45 AM Wire Cutter, Liver [facility] [phone] Interventions Made: Patient education/Medication counseling Pharmacist Recommendations Made None Care Coordination: None at this time Time spent on patient: 30-45 minutes Anabel García RPh October 17, 2023 9:35 AM documented in this encounter [facility] 10-09-2023 Miscellaneous Notes Formattin g of this note might be different from the original. Attempted to return call to kasandra Hernandez on advised patient currently in our ED with plans to admit to medicine service. Instructed to d/c current [facility] orders and resend orders after this admission. Instructed to call back with any further questions/concerns. Antoine Estrada RN, BSN, [facility] Liver Binder Operator Mary from [facility] called in has few questions regarding patient care would like callback # [phone] documented in this encounter [facility] 10-08-2023 Miscellaneous Notes Formattin g of this note might be different from the original. Spoke with who advised BPs 54/70 and patient is having SOB. Denies CP. reports worsening BLE with right > left . She reports his toes are now look purple, like someone put a rubber band around them . also reports patient with increased agitation, denies and MS changes. States they spoke with PCP nurse who advised them to go to the ED. Encouraged to report to ED as instructed which they are agreeable to. No further questions at this time. Antoine Estrada RN, BSN, [facility] Liver Binder Operator documented in this encounter [facility] 10-08-2023 Miscellaneous Notes Formattin g of this note might be different from the original. Contacted and she will also call the kidney doctor. Patient was already scheduled for tomorrow with Dr. Banerjee. Patient is not wanting to go to the ER. said we would be in tomorrow. I did explain the importance of going to the ER. Terra Dang MA Vise family to take Isaias back to [place] [facility]. He was taken off of the lasix due to it affecting his kidnies. He will most likely need admitted to get diuresed and get a plan for managing his edema. I can not saw wether or not to take the lasix. This would need to be determined by renal. If they contact that office they may also say to take him to the ER. Patient daughter Cristiana calling had mother on the other phone talking to me also. Father has increased edema evelia legs, lower legs, his skin very tight, and discolored, his weight has increased 5 pounds. Mother Brittani said contra [facility] discontinued his Lasix, she is not sure why that was done. Mother said he had been taking 40 mg and additional 30 mg when needed for increased edema. Offered appt, they live 90 minutes away, only wanted to see Dr Banerjee or Claudia Roberts, she did not think she could get him here in enough time. Patient has appt scheduled with Dr Banerjee tomorrow at 1120 am. Mother was asking if she could restart his Lasix dose? Please advise documented in this encounter [facility] 10-05-2023 Miscellaneous Notes Formattin g of this note might be different from the original. Pt's daughter/caregiver calling with insulin questions. They were answered and printed the instructions for daughter to pick pulling machine operator regarding the humalog. He did not get the complete instructions to decrease insulin with the prednisone decrease. Reviewed Wed appt with pcp 10/09/23 for hospital follow up. documented in this encounter [facility] 10-04-2023 Miscellaneous Notes Formattin g of this note is different from the original. Patient phones requesting refills as follows: Requested Prescriptions Pending Prescriptions Disp Refills tacrolimus IR (PROGRAF) 1 mg capsule 120 capsule 11 Sig: Take 2 capsules by mouth two times a day. Please review and advise. May Torres RN documented in this encounter [facility] 10-04-2023 Miscellaneous Notes Formattin g of this note might be different from the original. I spoke with patient's re: FK level of 3.7. Per Nathaly Neville CNP, I instructed her to have pt. increase Tacrolimus from 1 mg BID to 2 mg BID. She verbalized understanding. May Torres RN, BSN, [facility] Liver brokerage coordinator documented in this encounter [facility] 10-03-2023 History of Presen t illness Narrative Optimal Transition Program Plan of Care Note SERVICE DATE: October 03, 2023 SERVICE TIME: 3:48 PM Chronic Kidney Disease Stage: 4 Primary Senior Telecommunications Consultant: Dr. Fontenot Transplant Evaluation: - Patient referred for transplant:N/A -Transplant candidacy: H/O liver transplant Renal Replacement Therapy Education: - Patient referred to dialysis education:Yes - Dialysis education completed:Yes, Date Completed03/19/23 - Patient's TAKE OFF WORKER Modality: Peritoneal Dialysis Anemia of Renal Disease: - Patient referred for anemia management:No Access Placement: Peritoneal Dialysis General Surgery Referral has Been Placed:No Patient has a Functioning PD Access:No Outpatient Dialysis Placement: Remote Hepatitis Panel Obtained:Negative (09/26/2023) Negative (09/26/2023)Negative (09/26/2023) Chest X-Ray Obtained:XR CHEST 2V FRONTAL/LAT Result Date: 09/17/2023 IMPRESSION: Mild basilar density greater on the left. This may reflect atelectasis and/or chronic parenchymal change. Consider superimposed aspiration/infection in the appropriate clinical setting. Suspected trace effusion. Mental Telepathist: RADHA Transcribe Date/Time: Sep 17 2023 12:28A Dictated by : SUSANNA MCDANIEL MD This examination was interpreted and the report reviewed and electronically signed by: SUSANNA MCDANIEL MD on Sep 17 2023 12:30AM EST Spoke with patient's . She states that he will be starting home PT as he as deconditioned with multiple hospitalizations. She states that he is ambulating with a walker. Frequent lab draws. She states that he has been very tired since coming home from the hospital. No other issues or concerns. SIGNATURE: Tracy Brito RN PATIENT NAME: Isaias Sanon DATE: October 03, 2023 TIME: 3:48 PM documented in this encounter [facility] 10-02-2023 History of Presen t illness Narrative Pathology findings from liver biopsy dated 09/23/23 reviewed at Pathology Conference and confirms that there is no TCMR. Nathaly Neville APRN.CNP October 02, 2023 documented in this encounter [facility] 10-01-2023 Telephone encount er Note LFTs continue to trend up [facility] 10-01-2023 Miscellaneous Notes Formattin g of this note might be different from the original. LFTs continue to trend up documented in this encounter [facility] 09-30-2023 Miscellaneous Notes Formattin g of this note might be different from the original. Patient's notified of instructions; and the appointment for hospital follow up. Terra Dang MA Ise in the future if Isaias was told not to fast then he can take his regular insulin dose. If he was told to fast he should take 1/2 of his usual dose and then once his blood is drawn and he eats he can take the additional 1/2 of his regular dose. brought pt up for blood draw today 09-30-23 and he was fasting and no insulin given. When they got back to the car and she gave him his medications he needed. She is not at home and trying to do a blood sugar and she keeps getting E2 ,E1 on machine. She knows this is an error. She has been doing his blood sugars on meter with no problems. is going to give pt his insulin. and she will try again his meter. 's question is when he gets his next blood draw can pt be given his insulin at regular time or does she need to hold giving him everything like she did this am. Please advise pt. Kadi Mtz LPN documented in this encounter [facility] 09-28-2023 History of Presen t illness Narrative TCM Home Visit Referral Source of Stratification: [facility] Admission Status: Discharged Readmission Risk Score: 45 JEREMY Score: 52 Patient meets program referral criteria: Yes Program referral criteria met: - Readmission risk score 40% or greater Patient qualifies for High Risk TCM Home Visit. Discussed High Risk TCM Home Visit Program with patient: Patient - Does not accept due to:LE other outside of [facility] territory Preferred contact number: n/a Is patient staying somewhere other than the listed home address: No Dialysis Patient: No Honey Evans RN September 28, 2023 10:23 AM TRANSITIONAL CARE MANAGEMENT (TCM) COMMUNITY MONITORING PROGRAM Provider Action/FYI: [facility], pt has contact info Spoke with pt and Denies fever, chest pain SOB, dizziness, nausea/vomiting Reports feeling better Pts children checked AMFBG, pt cannot recall the result Discharge summary and meds reviewed with pt and Will forward to PCP office to offer TCM appt evon Advised to call PCP with new/worsening symptoms Honey Evans RN SUMMARY: Discharge Network Status: In-Network Discharge Pt discharged from [facility] on 09/27/23. Admitted for: Elevated LFT Contact made with patient: Yes Hi my name is Honey Evans RN and I am calling from the [facility] on behalf of your PCP, Sanju Banerjee MD I understand you were recently in the hospital so I am calling to check in with you to ensure you are feeling well now that you're home. May I ask you a few questions related to your hospital stay and well-being? Yes Contact with patient post discharge, spoke to patient. Patient identified by name and . Do you feel your health is BETTER, WORSE, or the SAME since leaving the hospital? Better ACTION TAKEN: Patient indicated symptoms are better or same, no action required. Continue outreach. MEDICATIONS: Many patients have questions or concerns about their medications once they are home. Do you have any questions about taking your medications or which medication you should be on? No Do you need any medication refills at this time, including any of the medications you might take only when needed? No ACTION TAKEN: No action required For RNs or Pharmacy completing outreach ONLY, was a medication review completed? Yes SOCIAL: We would like to make sure you have what you need so that your basics needs are met - including your personal safety, food, housing and medications. Would you like to speak with a social work steamship agent to help give you support for any of these needs? No It can be normal to feel anxious or down during a time like this. Would you like to talk to a mental health professional about how you have been feeling? No ACTION TAKEN: No action taken DISCHARGE INTRUCTIONS: Your discharge instructions / After Visit Summary (AVS) are important in guiding you through the recovery process. Do you have any questions related to your discharge instructions? No Do you have all the necessary equipment and supplies at home? Yes ACTION TAKEN: No action required I would like to help you schedule a hospital follow-up virtual or telephone visit with your PCP. This is a great way for you to connect with your provider to ensure you have safely transitioned home. If you are agreeable, I will send your request to a surgical scheduler who will contact and assist you with that appointment. This will give you an opportunity to ask any questions or address any concerns you may have with your PCP. Inform the patient that if they have any questions or concerns prior to that appointment, to call their PCP's office right away. ACTION TAKEN: Patient desires an appointment - Routed to [facility] [[id number]] for scheduling telehealth visit (telephonic, virtual visit, or Facetime) within 7 days of discharge with PCP care team. Indicate hospital follow-up appointment needed within 7 days in Provider/FYI box. End Outreach. Your doctor would like us to remind you of the recommendations regarding the coronavirus (Covid19) outbreak: Avoid public places as much as possible. Avoid close contact (within 6 feet) with others you don t live with, especially if they are sick. Stay home if you are sick. Wash your hands regularly for at least 20 seconds with soap and water. Wear a cloth mask in public places to help reduce community spread. Do not go to your Doctor s office unless instructed to do so. For any non-emergency symptoms, call your Doctor s office to get instructions on how to manage (we might recommend a telephone or virtual visit). For emergency symptoms, proceed to Emergency Department as usual but inform them of cough and fever symptoms EVON if present (or call on the way if possible). SARATH Education Ordered -: No documented in this encounter [facility] 09-27-2023 Miscellaneous Notes Formattin g of this note might be different from the original. Phoned Liane, and given provider's message below with verbalized understanding. Liane agreeable. Let Liane Know I will follow. They will need the 90 day face to face signed by the provider who evaluated the patient while in [facility] and ordered the [facility]. Liane from [facility] calls and states that patient was discharged from [facility] on 09/27/2023. Liane asking if provider willing to follow patient with orders for [place] [facility], physical therapy, and occupational therapy. If agreeable please give Liane a call back [phone] Thank you, Anabel Nolen RN documented in this encounter [facility] 09-21-2023 History of Past i llness Narrative Problem Noted Date Diagnosed Date Resolved Date Type 2 diabetes mellitus wit h hyperglycemia, without long-term current use of insulin 09/21/2023 10/26/2023 Last Assessment & Plan: Not on any medical management at home prior -> insulin initiated at [facility] current admission Diabetic education completed 09/25 Plan: - Cleve RODRIGUEZ - Endocrinology is following, appreciate recommendations Hyperosmolar hyperglycemic state (HHS) 09/17/2023 09/18/2023 Azotemia 09/17/2023 10/16/2023 Hyponatremia 09/17/2023 09/18/2023 Coronary artery disease due to lipid rich plaque 08/28/2023 09/17/2023 Last Assessment & Plan: Assessment: Recent complex staged PCI (last intervention 07/09/23 with stents - 4 of which are overlapping and 2 of them supplying the critical territory of the LAD) Patient on dual antiplatelet therapy with aspirin 81 mg and Plavix Of note, patient held Plavix for 5 days prior to liver biopsy on 08/20 (see elevated LFTs) Today, patient without cardiac complaints - reports feeling well overall Plan: - Cardiology consulted for recommendations regarding holding anti-platelet medication for possible biopsy or ERCP--> would be suboptimal given the above risk factors, would be high-risk for potentially fatal ST since he is still only 1.5 months out of his last PCI. - Re-start Plavix today - Continue to monitor - Continue aspirin 81 mg daily, atorvastatin, coreg, diltiazem Complication of liver transplant 08/27/2023 09/17/2023 S/P angioplasty with stent 08/06/2023 0 09/17/2023 Last Assessment & Plan: Assessment: on 06/05/2023- abnormal stress test and underwent a diagnostic LHC that showed severe stenosis in proximal to mid LAD, D1, dLCx, and pOM1. A staged PCI to the ostial to mid LAD with 2 overlapping stents and the mLAD to first diagonal 06/11/[address] Whitaker. A staged PCI on 07/09/2023 at [facility] by Dr. Whitaker, with PCI with stent placement to the ramus intermedius and OM2. On ASA 81mg (to be on indefinitely) and plavix for at least 12 months after stent placement. 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 Hyperkalemia 12/13/2021 12/18/2021 Last Assessment & Plan: Assessment: Improved, K+ is 4.9 on today's labs. Hyperkalemic trends with recent BMPs. PLAN: - Continuous tele monitoring ordered - Daily BMPs Ileus, postoperative 12/13/2021 022 Last Assessment & Plan: Assessment: POD3 ventral hernia repair with mesh. Now with bowel function. No nausea, vomiting. PLAN: - D/C NGT. - Advance to CLD - Continue to get OOB Ventral hernia, recurrent 12/12/2021 Thoracic aorta atherosclerosis 10/12/2021 09/17/2023 Last Assessment & Plan: Assessment: maximal dimension 4.0cm on echo 10/2019 Prostate disorder 05/18/2021 09/17/2023 Last Assessment & Plan: Assessment: no current tx Chronic lumbar pain 06/16/2020 09/17/19 Overview: Seeing Dr. Cedeno (12/2020) Last Assessment & Plan: Assessment: following pain management Dr. Cedeno Bilateral leg edema 01/22/2020 09/17/19 Metabolic acidosis 11/25/2019 Medication management 05/18/20192019 Hyperkalemia 04/24/2019 10/25/2020 Last Assessment & Plan: K 5.2 at time of discharge, likely elevated in setting of NASIR on CKD Patient also stated that he was eating potatoes with every meal because that was what they were giving him He has had hyperkalemia in the past PLAN: - Switched to renal diet - Educated patient on what foods to avoid - Recheck BMP on Saturday at PCP follow up appointment for monitoring of K History of deep venous throm bosis (DVT) of distal vein of right lower extremity 04/06/2019 Overview: 02/2019: was to be on penitentiary anticoagulation. 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 Last Assessment & Plan: Assessment: h/o DVT 2018, +lupus anticoagulant positive, on daily ASA Transaminitis 03/25/2019 03/27/2019 Pain in left foot 02/20/2019 10/25/2020 Chronic pain of both ankles 12/13/2017 09/17/2023 Balance problem 06/19/2016 09/17/2023 Last Assessment & Plan: Assessment; POA, stable - Patient reports trouble with balance since his liver transplant - neurologic exam significant for decreased pinprick in bilateral LE distal to mid-calf - folate 6.3, B12 532 - TSH 1.71 - HIV 1/2 nonreactive, hepatitis remote panel negative - STEFAN negative - ddx: peripheral neuropathy (nutritional, metabolic, medication side effect) vs cerebellar degeneration (prior EtOH use) - exam consistent with length dependent, small fiber nerve involvement most likely secondary to T2DM vs medications (immunosuppressants, sirolimus) PLAN: - Follow up peripheral neuropathy labs - PT/OT/PMR- acute rehab CKD (chronic kidney disease) stage 3, GFR 30-59 ml/min 06/19/2016 10/25/2020 Overview: Seeing Dr. Vipul Perez [facility] Prostate cancer screening 02/22/2016 Well adult exam 05/18/2014 10/19/2019 Overview: last done 08/24/2016 Thrombocytopenia 05/18/2014 10/19/2019 Last Assessment & Plan: Assessment: Platelet low since February 2019 per [facility] documentation No bleeding PLT 132-->106-->119-->114-->107-->124-->116-->110-->132 Plan: - Monitor Pl - Platelets stable and 132 at time of discharge Vertigo 05/18/2014 09/17/2023 Need for prophylactic immunotherapy 04/07/2014 10/19/2019 History of encephalopathy 02/06/2013 Overview: Secondary to cirrhosis. Currently alert, oriented x3, no signs of decompensated encephalopathy. Plan: - continue home regimen of lactulose, rifaximin and zinc Last Assessment & Plan: Assessment: hx secondary to cirrhosis Duodenal ulcer 02/06/2013 10/25/2020 Overview: Duodenal ulcers seen on EGD 01/31/13. Plan: Continue pantoprazole 40mg qday. Last Assessment & Plan: Assessment: h/o, no longer taking rx SUMMARY 01/13/2013 10/19/2019 Overview: Mr. 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 Mr. Sanon and his describe two normal bowel movements earlier in the day, and 3 episodes of blood in the stool since about 2 PM this afternoon. He describes the first episode as having fresh bright red blood larger in volume than several tablespoons which also mixed into the stool and toilet water. He had another episode earlier this evening, and a third episode upon admission to [facility] which was much less blood and mostly mixed into the stool. He denies hemoptysis, hematemesis, or other site of bleeding. Upon discharge 02/04/13 his hemoglobin was 8.6. In the ED tonight, Hgb is 8.4, Hct 24.4, plt 41. Ascites 01/13/2013 10/19/2019 Overview: Patient denies known history of SBP. Denies current abdominal tenderness, and no large volume ascites with need for paracentesis 02/06/2013. Plan: - ? Diuretics - will D/W nephrology Hyperbilirubinemia 01/13/2013 4 Overview: Arthritis 09/17/2023 Cataract of both eyes 2023 CRVO (central retinal vein occlusion) 09/17/2023 Overview: OD Tributary (branch) retinal v ein occlusion, left eye, with macular edema 09/17/2023 Overview: OS Hypertensive retinopathy Overview: mild Amblyopia of left eye 2023 Cirrhosis of liver 1 Retinal edema 09/17/2023 documented as of this encounter (statuses as of 10/26/2023) [facility] History of Past illness Narrative* Problem Noted Date Diagnosed Date Resolved Date Type 2 diabetes mellitus wit h hyperglycemia, without long-term current use of insulin 09/21/2023 10/26/2023 Last Assessment & Plan: Not on any medical management at home prior -> insulin initiated at [facility] current admission Diabetic education completed 09/25 Plan: - Cleve RODRIGUEZ - Endocrinology is following, appreciate recommendations Hyperosmolar hyperglycemic state (HHS) 09/17/2023 09/18/2023 Azotemia 09/17/2023 10/16/2023 Hyponatremia 09/17/2023 09/18/2023 Coronary artery disease due to lipid rich plaque 08/28/2023 09/17/2023 Last Assessment & Plan: Assessment: Recent complex staged PCI (last intervention 07/09/23 with stents - 4 of which are overlapping and 2 of them supplying the critical territory of the LAD) Patient on dual antiplatelet therapy with aspirin 81 mg and Plavix Of note, patient held Plavix for 5 days prior to liver biopsy on 08/20 (see elevated LFTs) Today, patient without cardiac complaints - reports feeling well overall Plan: - Cardiology consulted for recommendations regarding holding anti-platelet medication for possible biopsy or ERCP--> would be suboptimal given the above risk factors, would be high-risk for potentially fatal ST since he is still only 1.5 months out of his last PCI. - Re-start Plavix today - Continue to monitor - Continue aspirin 81 mg daily, atorvastatin, coreg, diltiazem Complication of liver transplant 08/27/2023 09/17/2023 S/P angioplasty with stent 08/06/2023 0 09/17/2023 Last Assessment & Plan: Assessment: on 06/05/2023- abnormal stress test and underwent a diagnostic LHC that showed severe stenosis in proximal to mid LAD, D1, dLCx, and pOM1. A staged PCI to the ostial to mid LAD with 2 overlapping stents and the mLAD to first diagonal 06/11/[address] Whitaker. A staged PCI on 07/09/2023 at [facility] by Dr. Whitaker, with PCI with stent placement to the ramus intermedius and OM2. On ASA 81mg (to be on indefinitely) and plavix for at least 12 months after stent placement. 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 Hyperkalemia 12/13/2021 12/18/2021 Last Assessment & Plan: Assessment: Improved, K+ is 4.9 on today's labs. Hyperkalemic trends with recent BMPs. PLAN: - Continuous tele monitoring ordered - Daily BMPs Ileus, postoperative 12/13/2021 022 Last Assessment & Plan: Assessment: POD3 ventral hernia repair with mesh. Now with bowel function. No nausea, vomiting. PLAN: - D/C NGT. - Advance to CLD - Continue to get OOB Ventral hernia, recurrent 12/12/2021 Thoracic aorta atherosclerosis 10/12/2021 09/17/2023 Last Assessment & Plan: Assessment: maximal dimension 4.0cm on echo 10/2019 Prostate disorder 05/18/2021 09/17/2023 Last Assessment & Plan: Assessment: no current tx Chronic lumbar pain 06/16/2020 09/17/19 24 Overview: Seeing Dr. Cedeno (12/2020) Last Assessment & Plan: Assessment: following pain management Dr. Cedeno Bilateral leg edema 01/22/2020 09/17/19 24 Metabolic acidosis 11/25/2019 Medication management 05/18/20192019 Hyperkalemia 04/24/2019 10/25/2020 Last Assessment & Plan: K 5.2 at time of discharge, likely elevated in setting of NASIR on CKD Patient also stated that he was eating potatoes with every meal because that was what they were giving him He has had hyperkalemia in the past PLAN: - Switched to renal diet - Educated patient on what foods to avoid - Recheck BMP on Saturday at PCP follow up appointment for monitoring of K History of deep venous throm bosis (DVT) of distal vein of right lower extremity 04/06/2019 Overview: 02/2019: was to be on penitentiary anticoagulation. 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 Last Assessment & Plan: Assessment: h/o DVT 2018, +lupus anticoagulant positive, on daily ASA Transaminitis 03/25/2019 03/27/2019 Pain in left foot 02/20/2019 10/25/2020 Chronic pain of both ankles 12/13/2017 09/17/2023 Balance problem 06/19/2016 09/17/2023 Last Assessment & Plan: Assessment; POA, stable - Patient reports trouble with balance since his liver transplant - neurologic exam significant for decreased pinprick in bilateral LE distal to mid-calf - folate 6.3, B12 532 - TSH 1.71 - HIV 1/2 nonreactive, hepatitis remote panel negative - STEFAN negative - ddx: peripheral neuropathy (nutritional, metabolic, medication side effect) vs cerebellar degeneration (prior EtOH use) - exam consistent with length dependent, small fiber nerve involvement most likely secondary to T2DM vs medications (immunosuppressants, sirolimus) PLAN: - Follow up peripheral neuropathy labs - PT/OT/PMR- acute rehab CKD (chronic kidney disease) stage 3, GFR 30-59 ml/min 06/19/2016 10/25/2020 Overview: Seeing Dr. Vipul Perez [facility] Prostate cancer screening 02/22/2016 Well adult exam 05/18/2014 10/19/2019 Overview: last done 08/24/2016 Thrombocytopenia 05/18/2014 10/19/2019 Last Assessment & Plan: Assessment: Platelet low since February 2019 per [facility] documentation No bleeding PLT 132-->106-->119-->114-->107-->124-->116-->110-->132 Plan: - Monitor Pl - Platelets stable and 132 at time of discharge Vertigo 05/18/2014 09/17/2023 Need for prophylactic immunotherapy 04/07/2014 10/19/2019 History of encephalopathy 02/06/2013 Overview: Secondary to cirrhosis. Currently alert, oriented x3, no signs of decompensated encephalopathy. Plan: - continue home regimen of lactulose, rifaximin and zinc Last Assessment & Plan: Assessment: hx secondary to cirrhosis Duodenal ulcer 02/06/2013 10/25/2020 Overview: Duodenal ulcers seen on EGD 01/31/13. Plan: Continue pantoprazole 40mg qday. Last Assessment & Plan: Assessment: h/o, no longer taking rx SUMMARY 01/13/2013 10/19/2019 Overview: Mr. 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 Mr. Sanon and his describe two normal bowel movements earlier in the day, and 3 episodes of blood in the stool since about 2 PM this afternoon. He describes the first episode as having fresh bright red blood larger in volume than several tablespoons which also mixed into the stool and toilet water. He had another episode earlier this evening, and a third episode upon admission to [facility] which was much less blood and mostly mixed into the stool. He denies hemoptysis, hematemesis, or other site of bleeding. Upon discharge 02/04/13 his hemoglobin was 8.6. In the ED tonight, Hgb is 8.4, Hct 24.4, plt 41. Ascites 01/13/2013 10/19/2019 Overview: Patient denies known history of SBP. Denies current abdominal tenderness, and no large volume ascites with need for paracentesis 02/06/2013. Plan: - ? Diuretics - will D/W nephrology Hyperbilirubinemia 01/13/2013 Overview: Arthritis 09/17/2023 Cataract of both eyes 2023 CRVO (central retinal vein occlusion) 09/17/2023 Overview: OD Tributary (branch) retinal v ein occlusion, left eye, with macular edema 09/17/2023 Overview: OS Hypertensive retinopathy Overview: mild Amblyopia of left eye 2023 Cirrhosis of liver 1 Retinal edema 09/17/2023 documented as of this encounter (statuses as of 10/29/2023) [facility]02-03-2024 History of Past illness Narrative* Problem Noted Date Diagnosed Date Resolved Date Type 2 diabetes mellitus wit h hyperglycemia, without long-term current use of insulin 09/21/2023 10/26/2023 Last Assessment & Plan: Not on any medical management at home prior -> insulin initiated at [facility] current admission Diabetic education completed 09/25 Plan: - AccuChsudarshan RODRIGUEZ - Endocrinology is following, appreciate recommendations Hyperosmolar hyperglycemic state (HHS) 09/17/2023 09/18/2023 Azotemia 09/17/2023 10/16/2023 Hyponatremia 09/17/2023 09/18/2023 Coronary artery disease due to lipid rich plaque 08/28/2023 09/17/2023 Last Assessment & Plan: Assessment: Recent complex staged PCI (last intervention 07/09/23 with stents - 4 of which are overlapping and 2 of them supplying the critical territory of the LAD) Patient on dual antiplatelet therapy with aspirin 81 mg and Plavix Of note, patient held Plavix for 5 days prior to liver biopsy on 08/20 (see elevated LFTs) Today, patient without cardiac complaints - reports feeling well overall Plan: - Cardiology consulted for recommendations regarding holding anti-platelet medication for possible biopsy or ERCP--> would be suboptimal given the above risk factors, would be high-risk for potentially fatal ST since he is still only 1.5 months out of his last PCI. - Re-start Plavix today - Continue to monitor - Continue aspirin 81 mg daily, atorvastatin, coreg, diltiazem Complication of liver transplant 08/27/2023 09/17/2023 S/P angioplasty with stent 08/06/2023 0 09/17/2023 Last Assessment & Plan: Assessment: on 06/05/2023- abnormal stress test and underwent a diagnostic LHC that showed severe stenosis in proximal to mid LAD, D1, dLCx, and pOM1. A staged PCI to the ostial to mid LAD with 2 overlapping stents and the mLAD to first diagonal 06/11/[address] Whitaker. A staged PCI on 07/09/2023 at [facility] by Dr. Whitaker, with PCI with stent placement to the ramus intermedius and OM2. On ASA 81mg (to be on indefinitely) and plavix for at least 12 months after stent placement. 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 Hyperkalemia 12/13/2021 12/18/2021 Last Assessment & Plan: Assessment: Improved, K+ is 4.9 on today's labs. Hyperkalemic trends with recent BMPs. PLAN: - Continuous tele monitoring ordered - Daily BMPs Ileus, postoperative 12/13/2021 022 Last Assessment & Plan: Assessment: POD3 ventral hernia repair with mesh. Now with bowel function. No nausea, vomiting. PLAN: - D/C NGT. - Advance to CLD - Continue to get OOB Ventral hernia, recurrent 12/12/2021 Thoracic aorta atherosclerosis 10/12/2021 09/17/2023 Last Assessment & Plan: Assessment: maximal dimension 4.0cm on echo 10/2019 Prostate disorder 05/18/2021 09/17/2023 Last Assessment & Plan: Assessment: no current tx Chronic lumbar pain 06/16/2020 09/17/19 24 Overview: Seeing Dr. Cedeno (12/2020) Last Assessment & Plan: Assessment: following pain management Dr. Cedeno Bilateral leg edema 01/22/2020 09/17/19 24 Metabolic acidosis 11/25/2019 1 Medication management 05/18/20192019 Hyperkalemia 04/24/2019 10/25/2020 Last Assessment & Plan: K 5.2 at time of discharge, likely elevated in setting of NASIR on CKD Patient also stated that he was eating potatoes with every meal because that was what they were giving him He has had hyperkalemia in the past PLAN: - Switched to renal diet - Educated patient on what foods to avoid - Recheck BMP on Saturday at PCP follow up appointment for monitoring of K History of deep venous throm bosis (DVT) of distal vein of right lower extremity 04/06/2019 Overview: 02/2019: was to be on penitentiary anticoagulation. 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 Last Assessment & Plan: Assessment: h/o DVT 2018, +lupus anticoagulant positive, on daily ASA Transaminitis 03/25/2019 03/27/2019 Pain in left foot 02/20/2019 10/25/2020 Chronic pain of both ankles 12/13/2017 09/17/2023 Balance problem 06/19/2016 09/17/2023 Last Assessment & Plan: Assessment; POA, stable - Patient reports trouble with balance since his liver transplant - neurologic exam significant for decreased pinprick in bilateral LE distal to mid-calf - folate 6.3, B12 532 - TSH 1.71 - HIV 1/2 nonreactive, hepatitis remote panel negative - STEFAN negative - ddx: peripheral neuropathy (nutritional, metabolic, medication side effect) vs cerebellar degeneration (prior EtOH use) - exam consistent with length dependent, small fiber nerve involvement most likely secondary to T2DM vs medications (immunosuppressants, sirolimus) PLAN: - Follow up peripheral neuropathy labs - PT/OT/PMR- acute rehab CKD (chronic kidney disease) stage 3, GFR 30-59 ml/min 06/19/2016 10/25/2020 Overview: Seeing Dr. Vipul Perez [facility] Prostate cancer screening 02/22/2016 Well adult exam 05/18/2014 10/19/2019 Overview: last done 08/24/2016 Thrombocytopenia 05/18/2014 10/19/2019 Last Assessment & Plan: Assessment: Platelet low since February 2019 per Epic documentation No bleeding PLT 132-->106-->119-->114-->107-->124-->116-->110-->132 Plan: - Monitor Pl - Platelets stable and 132 at time of discharge Vertigo 05/18/2014 09/17/2023 Need for prophylactic immunotherapy 04/07/2014 10/19/2019 History of encephalopathy 02/06/2013 Overview: Secondary to cirrhosis. Currently alert, oriented x3, no signs of decompensated encephalopathy. Plan: - continue home regimen of lactulose, rifaximin and zinc Last Assessment & Plan: Assessment: hx secondary to cirrhosis Duodenal ulcer 02/06/2013 10/25/2020 Overview: Duodenal ulcers seen on EGD 01/31/13. Plan: Continue pantoprazole 40mg qday. Last Assessment & Plan: Assessment: h/o, no longer taking rx SUMMARY 01/13/2013 10/19/2019 Overview: Mr. 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 Mr. Sanon and his describe two normal bowel movements earlier in the day, and 3 episodes of blood in the stool since about 2 PM this afternoon. He describes the first episode as having fresh bright red blood larger in volume than several tablespoons which also mixed into the stool and toilet water. He had another episode earlier this evening, and a third episode upon admission to [facility] which was much less blood and mostly mixed into the stool. He denies hemoptysis, hematemesis, or other site of bleeding. Upon discharge 02/04/13 his hemoglobin was 8.6. In the ED tonight, Hgb is 8.4, Hct 24.4, plt 41. Ascites 01/13/2013 10/19/2019 Overview: Patient denies known history of SBP. Denies current abdominal tenderness, and no large volume ascites with need for paracentesis 02/06/2013. Plan: - ? Diuretics - will D/W nephrology Hyperbilirubinemia 01/13/2013 Overview: Arthritis 09/17/2023 Cataract of both eyes 2023 CRVO (central retinal vein occlusion) 09/17/2023 Overview: OD Tributary (branch) retinal v ein occlusion, left eye, with macular edema 09/17/2023 Overview: OS Hypertensive retinopathy Overview: mild Amblyopia of left eye 2023 Cirrhosis of liver 1 Retinal edema 09/17/2023 documented as of this encounter (statuses as of 10/31/2023) [facility]02-03-2024 History of Past illness Narrative* Problem Noted Date Diagnosed Date Resolved Date Type 2 diabetes mellitus wit h hyperglycemia, without long-term current use of insulin 09/21/2023 10/26/2023 Last Assessment & Plan: Not on any medical management at home prior -> insulin initiated at [facility] current admission Diabetic education completed 09/25 Plan: - Cleve RODRIGUEZ - Endocrinology is following, appreciate recommendations Hyperosmolar hyperglycemic state (HHS) 09/17/2023 09/18/2023 Azotemia 09/17/2023 10/16/2023 Hyponatremia 09/17/2023 09/18/2023 Coronary artery disease due to lipid rich plaque 08/28/2023 09/17/2023 Last Assessment & Plan: Assessment: Recent complex staged PCI (last intervention 07/09/23 with stents - 4 of which are overlapping and 2 of them supplying the critical territory of the LAD) Patient on dual antiplatelet therapy with aspirin 81 mg and Plavix Of note, patient held Plavix for 5 days prior to liver biopsy on 08/20 (see elevated LFTs) Today, patient without cardiac complaints - reports feeling well overall Plan: - Cardiology consulted for recommendations regarding holding anti-platelet medication for possible biopsy or ERCP--> would be suboptimal given the above risk factors, would be high-risk for potentially fatal ST since he is still only 1.5 months out of his last PCI. - Re-start Plavix today - Continue to monitor - Continue aspirin 81 mg daily, atorvastatin, coreg, diltiazem Complication of liver transplant 08/27/2023 09/17/2023 S/P angioplasty with stent 08/06/2023 0 09/17/2023 Last Assessment & Plan: Assessment: on 06/05/2023- abnormal stress test and underwent a diagnostic LHC that showed severe stenosis in proximal to mid LAD, D1, dLCx, and pOM1. A staged PCI to the ostial to mid LAD with 2 overlapping stents and the mLAD to first diagonal 06/11/[address] Whitaker. A staged PCI on 07/09/2023 at [facility] by Dr. Whitaker, with PCI with stent placement to the ramus intermedius and OM2. On ASA 81mg (to be on indefinitely) and plavix for at least 12 months after stent placement. 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 Hyperkalemia 12/13/2021 12/18/2021 Last Assessment & Plan: Assessment: Improved, K+ is 4.9 on today's labs. Hyperkalemic trends with recent BMPs. PLAN: - Continuous tele monitoring ordered - Daily BMPs Ileus, postoperative 12/13/2021 022 Last Assessment & Plan: Assessment: POD3 ventral hernia repair with mesh. Now with bowel function. No nausea, vomiting. PLAN: - D/C NGT. - Advance to [facility]D - Continue to get OOB Ventral hernia, recurrent 12/12/2021 Thoracic aorta atherosclerosis 10/12/2021 09/17/2023 Last Assessment & Plan: Assessment: maximal dimension 4.0cm on echo 10/2019 Prostate disorder 05/18/2021 09/17/2023 Last Assessment & Plan: Assessment: no current tx Chronic lumbar pain 06/16/2020 09/17/19 24 Overview: Seeing Dr. Cedeno (12/2020) Last Assessment & Plan: Assessment: following pain management Dr. Cedeno Bilateral leg edema 01/22/2020 09/17/19 24 Metabolic acidosis 11/25/2019 Medication management 05/18/20192019 Hyperkalemia 04/24/2019 10/25/2020 Last Assessment & Plan: K 5.2 at time of discharge, likely elevated in setting of NASIR on CKD Patient also stated that he was eating potatoes with every meal because that was what they were giving him He has had hyperkalemia in the past PLAN: - Switched to renal diet - Educated patient on what foods to avoid - Recheck BMP on Saturday at PCP follow up appointment for monitoring of K History of deep venous throm bosis (DVT) of distal vein of right lower extremity 04/06/2019 Overview: 02/2019: was to be on penitentiary anticoagulation. 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 Last Assessment & Plan: Assessment: h/o DVT 2018, +lupus anticoagulant positive, on daily ASA Transaminitis 03/25/2019 03/27/2019 Pain in left foot 02/20/2019 10/25/2020 Chronic pain of both ankles 12/13/2017 09/17/2023 Balance problem 06/19/2016 09/17/2023 Last Assessment & Plan: Assessment; POA, stable - Patient reports trouble with balance since his liver transplant - neurologic exam significant for decreased pinprick in bilateral LE distal to mid-calf - folate 6.3, B12 532 - TSH 1.71 - HIV 1/2 nonreactive, hepatitis remote panel negative - STEFAN negative - ddx: peripheral neuropathy (nutritional, metabolic, medication side effect) vs cerebellar degeneration (prior EtOH use) - exam consistent with length dependent, small fiber nerve involvement most likely secondary to T2DM vs medications (immunosuppressants, sirolimus) PLAN: - Follow up peripheral neuropathy labs - PT/OT/PMR- acute rehab CKD (chronic kidney disease) stage 3, GFR 30-59 ml/min 06/19/2016 10/25/2020 Overview: Seeing Dr. Vipul Perez [facility] Prostate cancer screening 02/22/2016 Well adult exam 05/18/2014 10/19/2019 Overview: last done 08/24/2016 Thrombocytopenia 05/18/2014 10/19/2019 Last Assessment & Plan: Assessment: Platelet low since February 2019 per Epic documentation No bleeding PLT 132-->106-->119-->114-->107-->124-->116-->110-->132 Plan: - Monitor Pl - Platelets stable and 132 at time of discharge Vertigo 05/18/2014 09/17/2023 Need for prophylactic immunotherapy 04/07/2014 10/19/2019 History of encephalopathy 02/06/2013 Overview: Secondary to cirrhosis. Currently alert, oriented x3, no signs of decompensated encephalopathy. Plan: - continue home regimen of lactulose, rifaximin and zinc Last Assessment & Plan: Assessment: hx secondary to cirrhosis Duodenal ulcer 02/06/2013 10/25/2020 Overview: Duodenal ulcers seen on EGD 01/31/13. Plan: Continue pantoprazole 40mg qday. Last Assessment & Plan: Assessment: h/o, no longer taking rx SUMMARY 01/13/2013 10/19/2019 Overview: Mr. 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 Mr. Sanon and his describe two normal bowel movements earlier in the day, and 3 episodes of blood in the stool since about 2 PM this afternoon. He describes the first episode as having fresh bright red blood larger in volume than several tablespoons which also mixed into the stool and toilet water. He had another episode earlier this evening, and a third episode upon admission to [facility] which was much less blood and mostly mixed into the stool. He denies hemoptysis, hematemesis, or other site of bleeding. Upon discharge 02/04/13 his hemoglobin was 8.6. In the ED tonight, Hgb is 8.4, Hct 24.4, plt 41. Ascites 01/13/2013 10/19/2019 Overview: Patient denies known history of SBP. Denies current abdominal tenderness, and no large volume ascites with need for paracentesis 02/06/2013. Plan: - ? Diuretics - will D/W nephrology Hyperbilirubinemia 01/13/2013 Overview: Arthritis 09/17/2023 Cataract of both eyes 2023 CRVO (central retinal vein occlusion) 09/17/2023 Overview: OD Tributary (branch) retinal v ein occlusion, left eye, with macular edema 09/17/2023 Overview: OS Hypertensive retinopathy Overview: mild Amblyopia of left eye 2023 Cirrhosis of liver Retinal edema 09/17/2023 documented as of this encounter (statuses as of 10/31/2023) [facility]02-03-2024 History of Past illness Narrative* Problem Noted Date Diagnosed Date Resolved Date Type 2 diabetes mellitus wit h hyperglycemia, without long-term current use of insulin 09/21/2023 10/26/2023 Last Assessment & Plan: Not on any medical management at home prior -> insulin initiated at [facility] current admission Diabetic education completed 09/25 Plan: - Cleve RODRIGUEZ - Endocrinology is following, appreciate recommendations Hyperosmolar hyperglycemic state (HHS) 09/17/2023 09/18/2023 Azotemia 09/17/2023 10/16/2023 Hyponatremia 09/17/2023 09/18/2023 Coronary artery disease due to lipid rich plaque 08/28/2023 09/17/2023 Last Assessment & Plan: Assessment: Recent complex staged PCI (last intervention 07/09/23 with stents - 4 of which are overlapping and 2 of them supplying the critical territory of the LAD) Patient on dual antiplatelet therapy with aspirin 81 mg and Plavix Of note, patient held Plavix for 5 days prior to liver biopsy on 08/20 (see elevated LFTs) Today, patient without cardiac complaints - reports feeling well overall Plan: - Cardiology consulted for recommendations regarding holding anti-platelet medication for possible biopsy or ERCP--> would be suboptimal given the above risk factors, would be high-risk for potentially fatal ST since he is still only 1.5 months out of his last PCI. - Re-start Plavix today - Continue to monitor - Continue aspirin 81 mg daily, atorvastatin, coreg, diltiazem Complication of liver transplant 08/27/2023 09/17/2023 S/P angioplasty with stent 08/06/2023 0 09/17/2023 Last Assessment & Plan: Assessment: on 06/05/2023- abnormal stress test and underwent a diagnostic LHC that showed severe stenosis in proximal to mid LAD, D1, dLCx, and pOM1. A staged PCI to the ostial to mid LAD with 2 overlapping stents and the mLAD to first diagonal 06/11/[address] Whitaker. A staged PCI on 07/09/2023 at [facility] by Dr. Whitaker, with PCI with stent placement to the ramus intermedius and OM2. On ASA 81mg (to be on indefinitely) and plavix for at least 12 months after stent placement. 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 Hyperkalemia 12/13/2021 12/18/2021 Last Assessment & Plan: Assessment: Improved, K+ is 4.9 on today's labs. Hyperkalemic trends with recent BMPs. PLAN: - Continuous tele monitoring ordered - Daily BMPs Ileus, postoperative 12/13/2021 022 Last Assessment & Plan: Assessment: POD3 ventral hernia repair with mesh. Now with bowel function. No nausea, vomiting. PLAN: - D/C NGT. - Advance to CLD - Continue to get OOB Ventral hernia, recurrent 12/12/2021 Thoracic aorta atherosclerosis 10/12/2021 09/17/2023 Last Assessment & Plan: Assessment: maximal dimension 4.0cm on echo 10/2019 Prostate disorder 05/18/2021 09/17/2023 Last Assessment & Plan: Assessment: no current tx Chronic lumbar pain 06/16/2020 09/17/19 24 Overview: Seeing Dr. Cedeno (12/2020) Last Assessment & Plan: Assessment: following pain management Dr. 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 Last Assessment & Plan: Assessment: h/o DVT 2018, +lupus anticoagulant positive, on daily ASA Transaminitis 03/25/2019 03/27/2019 Pain in left foot 02/20/2019 10/25/2020 Chronic pain of both ankles 12/13/2017 09/17/2023 Balance problem 06/19/2016 09/17/2023 Last Assessment & Plan: Assessment; POA, stable - Patient reports trouble with balance since his liver transplant - neurologic exam significant for decreased pinprick in bilateral LE distal to mid-calf - folate 6.3, B12 532 - TSH 1.71 - HIV 1/2 nonreactive, hepatitis remote panel negative - STEFAN negative - ddx: peripheral neuropathy (nutritional, metabolic, medication side effect) vs cerebellar degeneration (prior EtOH use) - exam consistent with length dependent, small fiber nerve involvement most likely secondary to T2DM vs medications (immunosuppressants, sirolimus) PLAN: - Follow up peripheral neuropathy labs - PT/OT/PMR- acute rehab CKD (chronic kidney disease) stage 3, GFR 30-59 ml/min 06/19/2016 10/25/2020 Overview: Seeing Dr. Vipul Perez [facility] Prostate cancer screening 02/22/2016 Well adult exam 05/18/2014 10/19/2019 Overview: last done 08/24/2016 Thrombocytopenia 05/18/2014 10/19/2019 Last Assessment & Plan: Assessment: Platelet low since February 2019 per Epic documentation No bleeding PLT 132-->106-->119-->114-->107-->124-->116-->110-->132 Plan: - Monitor Pl - Platelets stable and 132 at time of discharge Vertigo 05/18/2014 09/17/2023 Need for prophylactic immunotherapy 04/07/2014 10/19/2019 History of encephalopathy 02/06/2013 Overview: Secondary to cirrhosis. Currently alert, oriented x3, no signs of decompensated encephalopathy. Plan: - continue home regimen of lactulose, rifaximin and zinc Last Assessment & Plan: Assessment: hx secondary to cirrhosis Duodenal ulcer 02/06/2013 10/25/2020 Overview: Duodenal ulcers seen on EGD 01/31/13. Plan: Continue pantoprazole 40mg qday. Last Assessment & Plan: Assessment: h/o, no longer taking rx SUMMARY 01/13/2013 10/19/2019 Overview: Mr. 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 Mr. Sanon and his describe two normal bowel movements earlier in the day, and 3 episodes of blood in the stool since about 2 PM this afternoon. He describes the first episode as having fresh bright red blood larger in volume than several tablespoons which also mixed into the stool and toilet water. He had another episode earlier this evening, and a third episode upon admission to [facility] which was much less blood and mostly mixed into the stool. He denies hemoptysis, hematemesis, or other site of bleeding. Upon discharge 02/04/13 his hemoglobin was 8.6. In the ED tonight, Hgb is 8.4, Hct 24.4, plt 41. Ascites 01/13/2013 10/19/2019 Overview: Patient denies known history of SBP. Denies current abdominal tenderness, and no large volume ascites with need for paracentesis 02/06/2013. Plan: - ? Diuretics - will D/W nephrology Hyperbilirubinemia 01/13/2013 4 Overview: Arthritis 09/17/2023 Cataract of both eyes 2023 CRVO (central retinal vein occlusion) 09/17/2023 Overview: OD Tributary (branch) retinal v ein occlusion, left eye, with macular edema 09/17/2023 Overview: OS Hypertensive retinopathy Overview: mild Amblyopia of left eye 2023 Cirrhosis of liver 1 Retinal edema 09/17/2023 documented as of this encounter (statuses as of 10/31/2023) [facility]02-03-2024 History of Past illness Narrative* Problem Noted Date Diagnosed Date Resolved Date Type 2 diabetes mellitus wit h hyperglycemia, without long-term current use of insulin 09/21/2023 10/26/2023 Last Assessment & Plan: Not on any medical management at home prior -> insulin initiated at [facility] current admission Diabetic education completed 09/25 Plan: - Cleve RODRIGUEZ - Endocrinology is following, appreciate recommendations Hyperosmolar hyperglycemic state (HHS) 09/17/2023 09/18/2023 Azotemia 09/17/2023 10/16/2023 Hyponatremia 09/17/2023 09/18/2023 Coronary artery disease due to lipid rich plaque 08/28/2023 09/17/2023 Last Assessment & Plan: Assessment: Recent complex staged PCI (last intervention 07/09/23 with stents - 4 of which are overlapping and 2 of them supplying the critical territory of the LAD) Patient on dual antiplatelet therapy with aspirin 81 mg and Plavix Of note, patient held Plavix for 5 days prior to liver biopsy on 08/20 (see elevated LFTs) Today, patient without cardiac complaints - reports feeling well overall Plan: - Cardiology consulted for recommendations regarding holding anti-platelet medication for possible biopsy or ERCP--> would be suboptimal given the above risk factors, would be high-risk for potentially fatal ST since he is still only 1.5 months out of his last PCI. - Re-start Plavix today - Continue to monitor - Continue aspirin 81 mg daily, atorvastatin, coreg, diltiazem Complication of liver transplant 08/27/2023 09/17/2023 S/P angioplasty with stent 08/06/2023 0 09/17/2023 Last Assessment & Plan: Assessment: on 06/05/2023- abnormal stress test and underwent a diagnostic LHC that showed severe stenosis in proximal to mid LAD, D1, dLCx, and pOM1. A staged PCI to the ostial to mid LAD with 2 overlapping stents and the mLAD to first diagonal 06/11/[address] Whitaker. A staged PCI on 07/09/2023 at [facility] by Dr. Whitaker, with PCI with stent placement to the ramus intermedius and OM2. On ASA 81mg (to be on indefinitely) and plavix for at least 12 months after stent placement. 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 Hyperkalemia 12/13/2021 12/18/2021 Last Assessment & Plan: Assessment: Improved, K+ is 4.9 on today's labs. Hyperkalemic trends with recent BMPs. PLAN: - Continuous tele monitoring ordered - Daily BMPs Ileus, postoperative 12/13/2021 022 Last Assessment & Plan: Assessment: POD3 ventral hernia repair with mesh. Now with bowel function. No nausea, vomiting. PLAN: - D/C NGT. - Advance to CLD - Continue to get OOB Ventral hernia, recurrent 12/12/2021 Thoracic aorta atherosclerosis 10/12/2021 09/17/2023 Last Assessment & Plan: Assessment: maximal dimension 4.0cm on echo 10/2019 Prostate disorder 05/18/2021 09/17/2023 Last Assessment & Plan: Assessment: no current tx Chronic lumbar pain 06/16/2020 09/17/19 24 Overview: Seeing Dr. Cedeno (12/2020) Last Assessment & Plan: Assessment: following pain management Dr. 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 Last Assessment & Plan: Assessment: h/o DVT 2018, +lupus anticoagulant positive, on daily ASA Transaminitis 03/25/2019 03/27/2019 Pain in left foot 02/20/2019 10/25/2020 Chronic pain of both ankles 12/13/2017 09/17/2023 Balance problem 06/19/2016 09/17/2023 Last Assessment & Plan: Assessment; POA, stable - Patient reports trouble with balance since his liver transplant - neurologic exam significant for decreased pinprick in bilateral LE distal to mid-calf - folate 6.3, B12 532 - TSH 1.71 - HIV 1/2 nonreactive, hepatitis remote panel negative - STEFAN negative - ddx: peripheral neuropathy (nutritional, metabolic, medication side effect) vs cerebellar degeneration (prior EtOH use) - exam consistent with length dependent, small fiber nerve involvement most likely secondary to T2DM vs medications (immunosuppressants, sirolimus) PLAN: - Follow up peripheral neuropathy labs - PT/OT/PMR- acute rehab CKD (chronic kidney disease) stage 3, GFR 30-59 ml/min 06/19/2016 10/25/2020 Overview: Seeing Dr. Vipul Perez [facility] Prostate cancer screening 02/22/2016 Well adult exam 05/18/2014 10/19/2019 Overview: last done 08/24/2016 Thrombocytopenia 05/18/2014 10/19/2019 Last Assessment & Plan: Assessment: Platelet low since February 2019 per [facility] documentation No bleeding PLT 132-->106-->119-->114-->107-->124-->116-->110-->132 Plan: - Monitor Pl - Platelets stable and 132 at time of discharge Vertigo 05/18/2014 09/17/2023 Need for prophylactic immunotherapy 04/07/2014 10/19/2019 History of encephalopathy 02/06/2013 Overview: Secondary to cirrhosis. Currently alert, oriented x3, no signs of decompensated encephalopathy. Plan: - continue home regimen of lactulose, rifaximin and zinc Last Assessment & Plan: Assessment: hx secondary to cirrhosis Duodenal ulcer 02/06/2013 10/25/2020 Overview: Duodenal ulcers seen on EGD 01/31/13. Plan: Continue pantoprazole 40mg qday. Last Assessment & Plan: Assessment: h/o, no longer taking rx SUMMARY 01/13/2013 10/19/2019 Overview: Mr. 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 Mr. Sanon and his describe two normal bowel movements earlier in the day, and 3 episodes of blood in the stool since about 2 PM this afternoon. He describes the first episode as having fresh bright red blood larger in volume than several tablespoons which also mixed into the stool and toilet water. He had another episode earlier this evening, and a third episode upon admission to [facility] which was much less blood and mostly mixed into the stool. He denies hemoptysis, hematemesis, or other site of bleeding. Upon discharge 02/04/13 his hemoglobin was 8.6. In the ED tonight, Hgb is 8.4, Hct 24.4, plt 41. Ascites 01/13/2013 10/19/2019 Overview: Patient denies known history of SBP. Denies current abdominal tenderness, and no large volume ascites with need for paracentesis 02/06/2013. Plan: - ? Diuretics - will D/W nephrology Hyperbilirubinemia 01/13/2013 Overview: Arthritis 09/17/2023 Cataract of both eyes 2023 CRVO (central retinal vein occlusion) 09/17/2023 Overview: OD Tributary (branch) retinal v ein occlusion, left eye, with macular edema 09/17/2023 Overview: OS Hypertensive retinopathy Overview: mild Amblyopia of left eye 2023 Cirrhosis of liver 1 Retinal edema 09/17/2023 documented as of this encounter (statuses as of 11/01/2023) [facility]02-03-2024 History of Past illness Narrative* Problem Noted Date Diagnosed Date Resolved Date Type 2 diabetes mellitus wit h hyperglycemia, without long-term current use of insulin 09/21/2023 10/26/2023 Last Assessment & Plan: Not on any medical management at home prior -> insulin initiated at [facility] current admission Diabetic education completed 09/25 Plan: - AccuChecks ACHS - Endocrinology is following, appreciate recommendations Hyperosmolar hyperglycemic state (HHS) 09/17/2023 09/18/2023 Azotemia 09/17/2023 10/16/2023 Hyponatremia 09/17/2023 09/18/2023 Coronary artery disease due to lipid rich plaque 08/28/2023 09/17/2023 Last Assessment & Plan: Assessment: Recent complex staged PCI (last intervention 07/09/23 with stents - 4 of which are overlapping and 2 of them supplying the critical territory of the LAD) Patient on dual antiplatelet therapy with aspirin 81 mg and Plavix Of note, patient held Plavix for 5 days prior to liver biopsy on 08/20 (see elevated LFTs) Today, patient without cardiac complaints - reports feeling well overall Plan: - Cardiology consulted for recommendations regarding holding anti-platelet medication for possible biopsy or ERCP--> would be suboptimal given the above risk factors, would be high-risk for potentially fatal ST since he is still only 1.5 months out of his last PCI. - Re-start Plavix today - Continue to monitor - Continue aspirin 81 mg daily, atorvastatin, coreg, diltiazem Complication of liver transplant 08/27/2023 09/17/2023 S/P angioplasty with stent 08/06/2023 0 09/17/2023 Last Assessment & Plan: Assessment: on 06/05/2023- abnormal stress test and underwent a diagnostic LHC that showed severe stenosis in proximal to mid LAD, D1, dLCx, and pOM1. A staged PCI to the ostial to mid LAD with 2 overlapping stents and the mLAD to first diagonal 06/11/[address] Whitaker. A staged PCI on 07/09/2023 at [facility] by Dr. Whitaker, with PCI with stent placement to the ramus intermedius and OM2. On ASA 81mg (to be on indefinitely) and plavix for at least 12 months after stent placement. 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 Hyperkalemia 12/13/2021 12/18/2021 Last Assessment & Plan: Assessment: Improved, K+ is 4.9 on today's labs. Hyperkalemic trends with recent BMPs. PLAN: - Continuous tele monitoring ordered - Daily BMPs Ileus, postoperative 12/13/2021 022 Last Assessment & Plan: Assessment: POD3 ventral hernia repair with mesh. Now with bowel function. No nausea, vomiting. PLAN: - D/C NGT. - Advance to CLD - Continue to get OOB Ventral hernia, recurrent 12/12/2021 Thoracic aorta atherosclerosis 10/12/2021 09/17/2023 Last Assessment & Plan: Assessment: maximal dimension 4.0cm on echo 10/2019 Prostate disorder 05/18/2021 09/17/2023 Last Assessment & Plan: Assessment: no current tx Chronic lumbar pain 06/16/2020 09/17/19 24 Overview: Seeing Dr. Cedeno (12/2020) Last Assessment & Plan: Assessment: following pain management Dr. Cedeno Metabolic acidosis 11/25/2019 Medication management 05/18/20192019 Hyperkalemia 04/24/2019 10/25/2020 Last Assessment & Plan: K 5.2 at time of discharge, likely elevated in setting of NASIR on CKD Patient also stated that he was eating potatoes with every meal because that was what they were giving him He has had hyperkalemia in the past PLAN: - Switched to renal diet - Educated patient on what foods to avoid - Recheck BMP on Saturday at PCP follow up appointment for monitoring of K History of deep venous throm bosis (DVT) of distal vein of right lower extremity 04/06/2019 Overview: 02/2019: was to be on penitentiary anticoagulation. 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 Last Assessment & Plan: Assessment: h/o DVT 2018, +lupus anticoagulant positive, on daily ASA Transaminitis 03/25/2019 03/27/2019 Pain in left foot 02/20/2019 10/25/2020 Chronic pain of both ankles 12/13/2017 09/17/2023 Balance problem 06/19/2016 09/17/2023 Last Assessment & Plan: Assessment; POA, stable - Patient reports trouble with balance since his liver transplant - neurologic exam significant for decreased pinprick in bilateral LE distal to mid-calf - folate 6.3, B12 532 - TSH 1.71 - HIV 1/2 nonreactive, hepatitis remote panel negative - STEFAN negative - ddx: peripheral neuropathy (nutritional, metabolic, medication side effect) vs cerebellar degeneration (prior EtOH use) - exam consistent with length dependent, small fiber nerve involvement most likely secondary to T2DM vs medications (immunosuppressants, sirolimus) PLAN: - Follow up peripheral neuropathy labs - PT/OT/PMR- acute rehab CKD (chronic kidney disease) stage 3, GFR 30-59 ml/min 06/19/2016 10/25/2020 Overview: Seeing Dr. Vipul Perez [facility] Prostate cancer screening 02/22/2016 Well adult exam 05/18/2014 10/19/2019 Overview: last done 08/24/2016 Thrombocytopenia 05/18/2014 10/19/2019 Last Assessment & Plan: Assessment: Platelet low since February 2019 per [facility] documentation No bleeding PLT 132-->106-->119-->114-->107-->124-->116-->110-->132 Plan: - Monitor Pl - Platelets stable and 132 at time of discharge Vertigo 05/18/2014 09/17/2023 Need for prophylactic immunotherapy 04/07/2014 10/19/2019 History of encephalopathy 02/06/2013 Overview: Secondary to cirrhosis. Currently alert, oriented x3, no signs of decompensated encephalopathy. Plan: - continue home regimen of lactulose, rifaximin and zinc Last Assessment & Plan: Assessment: hx secondary to cirrhosis Duodenal ulcer 02/06/2013 10/25/2020 Overview: Duodenal ulcers seen on EGD 01/31/13. Plan: Continue pantoprazole 40mg qday. Last Assessment & Plan: Assessment: h/o, no longer taking rx SUMMARY 01/13/2013 10/19/2019 Overview: Mr. 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 Mr. Sanon and his describe two normal bowel movements earlier in the day, and 3 episodes of blood in the stool since about 2 PM this afternoon. He describes the first episode as having fresh bright red blood larger in volume than several tablespoons which also mixed into the stool and toilet water. He had another episode earlier this evening, and a third episode upon admission to [facility] which was much less blood and mostly mixed into the stool. He denies hemoptysis, hematemesis, or other site of bleeding. Upon discharge 02/04/13 his hemoglobin was 8.6. In the ED tonight, Hgb is 8.4, Hct 24.4, plt 41. Ascites 01/13/2013 10/19/2019 Overview: Patient denies known history of SBP. Denies current abdominal tenderness, and no large volume ascites with need for paracentesis 02/06/2013. Plan: - ? Diuretics - will D/W nephrology Hyperbilirubinemia 01/13/2013 Overview: Arthritis 09/17/2023 Cataract of both eyes 2023 CRVO (central retinal vein occlusion) 09/17/2023 Overview: OD Tributary (branch) retinal v ein occlusion, left eye, with macular edema 09/17/2023 Overview: OS Hypertensive retinopathy Overview: mild Amblyopia of left eye 2023 Cirrhosis of liver 1 Retinal edema 09/17/2023 documented as of this encounter (statuses as of 11/04/2023) [facility]02-03-2024 History of Past illness Narrative* Problem Noted Date Diagnosed Date Resolved Date Type 2 diabetes mellitus wit h hyperglycemia, without long-term current use of insulin 09/21/2023 10/26/2023 Last Assessment & Plan: Not on any medical management at home prior -> insulin initiated at [facility] current admission Diabetic education completed 09/25 Plan: - AccuChsudarshan RODRIGUEZ - Endocrinology is following, appreciate recommendations Hyperosmolar hyperglycemic state (HHS) 09/17/2023 09/18/2023 Azotemia 09/17/2023 10/16/2023 Hyponatremia 09/17/2023 09/18/2023 Coronary artery disease due to lipid rich plaque 08/28/2023 09/17/2023 Last Assessment & Plan: Assessment: Recent complex staged PCI (last intervention 07/09/23 with stents - 4 of which are overlapping and 2 of them supplying the critical territory of the LAD) Patient on dual antiplatelet therapy with aspirin 81 mg and Plavix Of note, patient held Plavix for 5 days prior to liver biopsy on 08/20 (see elevated LFTs) Today, patient without cardiac complaints - reports feeling well overall Plan: - Cardiology consulted for recommendations regarding holding anti-platelet medication for possible biopsy or ERCP--> would be suboptimal given the above risk factors, would be high-risk for potentially fatal ST since he is still only 1.5 months out of his last PCI. - Re-start Plavix today - Continue to monitor - Continue aspirin 81 mg daily, atorvastatin, coreg, diltiazem Complication of liver transplant 08/27/2023 09/17/2023 S/P angioplasty with stent 08/06/2023 0 09/17/2023 Last Assessment & Plan: Assessment: on 06/05/2023- abnormal stress test and underwent a diagnostic LHC that showed severe stenosis in proximal to mid LAD, D1, dLCx, and pOM1. A staged PCI to the ostial to mid LAD with 2 overlapping stents and the mLAD to first diagonal 06/11/[address] Whitaker. A staged PCI on 07/09/2023 at [facility] by Dr. Whitaker, with PCI with stent placement to the ramus intermedius and OM2. On ASA 81mg (to be on indefinitely) and plavix for at least 12 months after stent placement. 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 Hyperkalemia 12/13/2021 12/18/2021 Last Assessment & Plan: Assessment: Improved, K+ is 4.9 on today's labs. Hyperkalemic trends with recent BMPs. PLAN: - Continuous tele monitoring ordered - Daily BMPs Ileus, postoperative 12/13/2021 022 Last Assessment & Plan: Assessment: POD3 ventral hernia repair with mesh. Now with bowel function. No nausea, vomiting. PLAN: - D/C NGT. - Advance to CLD - Continue to get OOB Ventral hernia, recurrent 12/12/2021 Thoracic aorta atherosclerosis 10/12/2021 09/17/2023 Last Assessment & Plan: Assessment: maximal dimension 4.0cm on echo 10/2019 Prostate disorder 05/18/2021 09/17/2023 Last Assessment & Plan: Assessment: no current tx Chronic lumbar pain 06/16/2020 09/17/19 24 Overview: Seeing Dr. Cedeno (12/2020) Last Assessment & Plan: Assessment: following pain management Dr. Cedeno Metabolic acidosis 11/25/2019 Medication management 05/18/20192019 Hyperkalemia 04/24/2019 10/25/2020 Last Assessment & Plan: K 5.2 at time of discharge, likely elevated in setting of NASIR on CKD Patient also stated that he was eating potatoes with every meal because that was what they were giving him He has had hyperkalemia in the past PLAN: - Switched to renal diet - Educated patient on what foods to avoid - Recheck BMP on Saturday at PCP follow up appointment for monitoring of K History of deep venous throm bosis (DVT) of distal vein of right lower extremity 04/06/2019 Overview: 02/2019: was to be on penitentiary anticoagulation. 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 Last Assessment & Plan: Assessment: h/o DVT 2018, +lupus anticoagulant positive, on daily ASA Transaminitis 03/25/2019 03/27/2019 Pain in left foot 02/20/2019 10/25/2020 Chronic pain of both ankles 12/13/2017 09/17/2023 Balance problem 06/19/2016 09/17/2023 Last Assessment & Plan: Assessment; POA, stable - Patient reports trouble with balance since his liver transplant - neurologic exam significant for decreased pinprick in bilateral LE distal to mid-calf - folate 6.3, B12 532 - TSH 1.71 - HIV 1/2 nonreactive, hepatitis remote panel negative - STEFAN negative - ddx: peripheral neuropathy (nutritional, metabolic, medication side effect) vs cerebellar degeneration (prior EtOH use) - exam consistent with length dependent, small fiber nerve involvement most likely secondary to T2DM vs medications (immunosuppressants, sirolimus) PLAN: - Follow up peripheral neuropathy labs - PT/OT/PMR- acute rehab CKD (chronic kidney disease) stage 3, GFR 30-59 ml/min 06/19/2016 10/25/2020 Overview: Seeing Dr. Vipul Perez [facility] Prostate cancer screening 02/22/2016 Well adult exam 05/18/2014 10/19/2019 Overview: last done 08/24/2016 Thrombocytopenia 05/18/2014 10/19/2019 Last Assessment & Plan: Assessment: Platelet low since February 2019 per Epic documentation No bleeding PLT 132-->106-->119-->114-->107-->124-->116-->110-->132 Plan: - Monitor Pl - Platelets stable and 132 at time of discharge Vertigo 05/18/2014 09/17/2023 Need for prophylactic immunotherapy 04/07/2014 10/19/2019 History of encephalopathy 02/06/2013 Overview: Secondary to cirrhosis. Currently alert, oriented x3, no signs of decompensated encephalopathy. Plan: - continue home regimen of lactulose, rifaximin and zinc Last Assessment & Plan: Assessment: hx secondary to cirrhosis Duodenal ulcer 02/06/2013 10/25/2020 Overview: Duodenal ulcers seen on EGD 01/31/13. Plan: Continue pantoprazole 40mg qday. Last Assessment & Plan: Assessment: h/o, no longer taking rx SUMMARY 01/13/2013 10/19/2019 Overview: Mr. 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 Mr. Sanon and his describe two normal bowel movements earlier in the day, and 3 episodes of blood in the stool since about 2 PM this afternoon. He describes the first episode as having fresh bright red blood larger in volume than several tablespoons which also mixed into the stool and toilet water. He had another episode earlier this evening, and a third episode upon admission to [facility] which was much less blood and mostly mixed into the stool. He denies hemoptysis, hematemesis, or other site of bleeding. Upon discharge 02/04/13 his hemoglobin was 8.6. In the ED tonight, Hgb is 8.4, Hct 24.4, plt 41. Ascites 01/13/2013 10/19/2019 Overview: Patient denies known history of SBP. Denies current abdominal tenderness, and no large volume ascites with need for paracentesis 02/06/2013. Plan: - ? Diuretics - will D/W nephrology Hyperbilirubinemia 01/13/2013 Overview: Arthritis 09/17/2023 Cataract of both eyes 2023 CRVO (central retinal vein occlusion) 09/17/2023 Overview: OD Tributary (branch) retinal v ein occlusion, left eye, with macular edema 09/17/2023 Overview: OS Hypertensive retinopathy Overview: mild Amblyopia of left eye 2023 Cirrhosis of liver 1 Retinal edema 09/17/2023 documented as of this encounter (statuses as of 11/05/2023) [facility]02-03-2024 History of Past illness Narrative* Problem Noted Date Diagnosed Date Resolved Date Type 2 diabetes mellitus wit h hyperglycemia, without long-term current use of insulin 09/21/2023 10/26/2023 Last Assessment & Plan: Not on any medical management at home prior -> insulin initiated at [facility] current admission Diabetic education completed 09/25 Plan: - Cleve RODRIGUEZ - Endocrinology is following, appreciate recommendations Hyperosmolar hyperglycemic state (HHS) 09/17/2023 09/18/2023 Azotemia 09/17/2023 10/16/2023 Hyponatremia 09/17/2023 09/18/2023 Coronary artery disease due to lipid rich plaque 08/28/2023 09/17/2023 Last Assessment & Plan: Assessment: Recent complex staged PCI (last intervention 07/09/23 with stents - 4 of which are overlapping and 2 of them supplying the critical territory of the LAD) Patient on dual antiplatelet therapy with aspirin 81 mg and Plavix Of note, patient held Plavix for 5 days prior to liver biopsy on 08/20 (see elevated LFTs) Today, patient without cardiac complaints - reports feeling well overall Plan: - Cardiology consulted for recommendations regarding holding anti-platelet medication for possible biopsy or ERCP--> would be suboptimal given the above risk factors, would be high-risk for potentially fatal ST since he is still only 1.5 months out of his last PCI. - Re-start Plavix today - Continue to monitor - Continue aspirin 81 mg daily, atorvastatin, coreg, diltiazem Complication of liver transplant 08/27/2023 09/17/2023 S/P angioplasty with stent 08/06/2023 0 09/17/2023 Last Assessment & Plan: Assessment: on 06/05/2023- abnormal stress test and underwent a diagnostic C that showed severe stenosis in proximal to mid LAD, D1, dLCx, and pOM1. A staged PCI to the ostial to mid LAD with 2 overlapping stents and the mLAD to first diagonal 06/11/[address] Whitaker. A staged PCI on 07/09/2023 at [facility] by Dr. Whitaker, with PCI with stent placement to the ramus intermedius and OM2. On ASA 81mg (to be on indefinitely) and plavix for at least 12 months after stent placement. 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 Hyperkalemia 12/13/2021 12/18/2021 Last Assessment & Plan: Assessment: Improved, K+ is 4.9 on today's labs. Hyperkalemic trends with recent BMPs. PLAN: - Continuous tele monitoring ordered - Daily BMPs Ileus, postoperative 12/13/2021 022 Last Assessment & Plan: Assessment: POD3 ventral hernia repair with mesh. Now with bowel function. No nausea, vomiting. PLAN: - D/C NGT. - Advance to [facility]D - Continue to get OOB Ventral hernia, recurrent 12/12/2021 Thoracic aorta atherosclerosis 10/12/2021 09/17/2023 Last Assessment & Plan: Assessment: maximal dimension 4.0cm on echo 10/2019 Prostate disorder 05/18/2021 09/17/2023 Last Assessment & Plan: Assessment: no current tx Chronic lumbar pain 06/16/2020 09/17/19 Overview: Seeing Dr. Cedeno (12/2020) Last Assessment & Plan: Assessment: following pain management Dr. Cedeno Metabolic acidosis 11/25/2019 Medication management 05/18/20192019 Hyperkalemia 04/24/2019 10/25/2020 Last Assessment & Plan: K 5.2 at time of discharge, likely elevated in setting of NASIR on CKD Patient also stated that he was eating potatoes with every meal because that was what they were giving him He has had hyperkalemia in the past PLAN: - Switched to renal diet - Educated patient on what foods to avoid - Recheck BMP on Saturday at PCP follow up appointment for monitoring of K History of deep venous throm bosis (DVT) of distal vein of right lower extremity 04/06/2019 Overview: 02/2019: 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 Last Assessment & Plan: Assessment: h/o DVT 2018, +lupus anticoagulant positive, on daily ASA Transaminitis 03/25/2019 03/27/2019 Pain in left foot 02/20/2019 10/25/2020 Chronic pain of both ankles 12/13/2017 09/17/2023 Balance problem 06/19/2016 09/17/2023 Last Assessment & Plan: Assessment; POA, stable - Patient reports trouble with balance since his liver transplant - neurologic exam significant for decreased pinprick in bilateral LE distal to mid-calf - folate 6.3, B12 532 - TSH 1.71 - HIV 1/2 nonreactive, hepatitis remote panel negative - STEFAN negative - ddx: peripheral neuropathy (nutritional, metabolic, medication side effect) vs cerebellar degeneration (prior EtOH use) - exam consistent with length dependent, small fiber nerve involvement most likely secondary to T2DM vs medications (immunosuppressants, sirolimus) PLAN: - Follow up peripheral neuropathy labs - PT/OT/PMR- acute rehab CKD (chronic kidney disease) stage 3, GFR 30-59 ml/min 06/19/2016 10/25/2020 Overview: Seeing Dr. Vipul Perez [facility] Prostate cancer screening 02/22/2016 Well adult exam 05/18/2014 10/19/2019 Overview: last done 08/24/2016 Thrombocytopenia 05/18/2014 10/19/2019 Last Assessment & Plan: Assessment: Platelet low since February 2019 per Epic documentation No bleeding PLT 132-->106-->119-->114-->107-->124-->116-->110-->132 Plan: - Monitor Pl - Platelets stable and 132 at time of discharge Vertigo 05/18/2014 09/17/2023 Need for prophylactic immunotherapy 04/07/2014 10/19/2019 History of encephalopathy 02/06/2013 Overview: Secondary to cirrhosis. Currently alert, oriented x3, no signs of decompensated encephalopathy. Plan: - continue home regimen of lactulose, rifaximin and zinc Last Assessment & Plan: Assessment: hx secondary to cirrhosis Duodenal ulcer 02/06/2013 10/25/2020 Overview: Duodenal ulcers seen on EGD 01/31/13. Plan: Continue pantoprazole 40mg qday. Last Assessment & Plan: Assessment: h/o, no longer taking rx SUMMARY 01/13/2013 10/19/2019 Overview: Mr. 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 Mr. Sanon and his describe two normal bowel movements earlier in the day, and 3 episodes of blood in the stool since about 2 PM this afternoon. He describes the first episode as having fresh bright red blood larger in volume than several tablespoons which also mixed into the stool and toilet water. He had another episode earlier this evening, and a third episode upon admission to [facility] which was much less blood and mostly mixed into the stool. He denies hemoptysis, hematemesis, or other site of bleeding. Upon discharge 02/04/13 his hemoglobin was 8.6. In the ED tonight, Hgb is 8.4, Hct 24.4, plt 41. Ascites 01/13/2013 10/19/2019 Overview: Patient denies known history of SBP. Denies current abdominal tenderness, and no large volume ascites with need for paracentesis 02/06/2013. Plan: - ? Diuretics - will D/W nephrology Hyperbilirubinemia 01/13/2013 Overview: Arthritis 09/17/2023 Cataract of both eyes 2023 CRVO (central retinal vein occlusion) 09/17/2023 Overview: OD Tributary (branch) retinal v ein occlusion, left eye, with macular edema 09/17/2023 Overview: OS Hypertensive retinopathy Overview: mild Amblyopia of left eye 2023 Cirrhosis of liver 1 Retinal edema 09/17/2023 documented as of this encounter (statuses as of 11/08/2023) [facility]02-03-2024 History of Past illness Narrative* Problem Noted Date Diagnosed Date Resolved Date Type 2 diabetes mellitus wit h hyperglycemia, without long-term current use of insulin 09/21/2023 10/26/2023 Last Assessment & Plan: Not on any medical management at home prior -> insulin initiated at [facility] current admission Diabetic education completed 09/25 Plan: - Cleve RODRIGUEZ - Endocrinology is following, appreciate recommendations Hyperosmolar hyperglycemic state (HHS) 09/17/2023 09/18/2023 Azotemia 09/17/2023 10/16/2023 Hyponatremia 09/17/2023 09/18/2023 Coronary artery disease due to lipid rich plaque 08/28/2023 09/17/2023 Last Assessment & Plan: Assessment: Recent complex staged PCI (last intervention 07/09/23 with stents - 4 of which are overlapping and 2 of them supplying the critical territory of the LAD) Patient on dual antiplatelet therapy with aspirin 81 mg and Plavix Of note, patient held Plavix for 5 days prior to liver biopsy on 08/20 (see elevated LFTs) Today, patient without cardiac complaints - reports feeling well overall Plan: - Cardiology consulted for recommendations regarding holding anti-platelet medication for possible biopsy or ERCP--> would be suboptimal given the above risk factors, would be high-risk for potentially fatal ST since he is still only 1.5 months out of his last PCI. - Re-start Plavix today - Continue to monitor - Continue aspirin 81 mg daily, atorvastatin, coreg, diltiazem Complication of liver transplant 08/27/2023 09/17/2023 S/P angioplasty with stent 08/06/2023 0 09/17/2023 Last Assessment & Plan: Assessment: on 06/05/2023- abnormal stress test and underwent a diagnostic LHC that showed severe stenosis in proximal to mid LAD, D1, dLCx, and pOM1. A staged PCI to the ostial to mid LAD with 2 overlapping stents and the mLAD to first diagonal 06/11/[address] Whitaker. A staged PCI on 07/09/2023 at [facility] by Dr. Whitaker, with PCI with stent placement to the ramus intermedius and OM2. On ASA 81mg (to be on indefinitely) and plavix for at least 12 months after stent placement. 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 Hyperkalemia 12/13/2021 12/18/2021 Last Assessment & Plan: Assessment: Improved, K+ is 4.9 on today's labs. Hyperkalemic trends with recent BMPs. PLAN: - Continuous tele monitoring ordered - Daily BMPs Ileus, postoperative 12/13/2021 022 Last Assessment & Plan: Assessment: POD3 ventral hernia repair with mesh. Now with bowel function. No nausea, vomiting. PLAN: - D/C NGT. - Advance to CLD - Continue to get OOB Ventral hernia, recurrent 12/12/2021 Thoracic aorta atherosclerosis 10/12/2021 09/17/2023 Last Assessment & Plan: Assessment: maximal dimension 4.0cm on echo 10/2019 Prostate disorder 05/18/2021 09/17/2023 Last Assessment & Plan: Assessment: no current tx Chronic lumbar pain 06/16/2020 09/17/19 24 Overview: Seeing Dr. Cedeno (12/2020) Last Assessment & Plan: Assessment: following pain management Dr. Cedeno Metabolic acidosis 11/25/2019 Medication management 05/18/20192019 Hyperkalemia 04/24/2019 10/25/2020 Last Assessment & Plan: K 5.2 at time of discharge, likely elevated in setting of NASIR on CKD Patient also stated that he was eating potatoes with every meal because that was what they were giving him He has had hyperkalemia in the past PLAN: - Switched to renal diet - Educated patient on what foods to avoid - Recheck BMP on Saturday at PCP follow up appointment for monitoring of K History of deep venous throm bosis (DVT) of distal vein of right lower extremity 04/06/2019 Overview: 02/2019: was to be on penitentiary anticoagulation. 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 Last Assessment & Plan: Assessment: h/o DVT 2018, +lupus anticoagulant positive, on daily ASA Transaminitis 03/25/2019 03/27/2019 Pain in left foot 02/20/2019 10/25/2020 Chronic pain of both ankles 12/13/2017 09/17/2023 Balance problem 06/19/2016 09/17/2023 Last Assessment & Plan: Assessment; POA, stable - Patient reports trouble with balance since his liver transplant - neurologic exam significant for decreased pinprick in bilateral LE distal to mid-calf - folate 6.3, B12 532 - TSH 1.71 - HIV 1/2 nonreactive, hepatitis remote panel negative - STEFAN negative - ddx: peripheral neuropathy (nutritional, metabolic, medication side effect) vs cerebellar degeneration (prior EtOH use) - exam consistent with length dependent, small fiber nerve involvement most likely secondary to T2DM vs medications (immunosuppressants, sirolimus) PLAN: - Follow up peripheral neuropathy labs - PT/OT/PMR- acute rehab CKD (chronic kidney disease) stage 3, GFR 30-59 ml/min 06/19/2016 10/25/2020 Overview: Seeing Dr. Vipul Perez [facility] Prostate cancer screening 02/22/2016 Well adult exam 05/18/2014 10/19/2019 Overview: last done 08/24/2016 Thrombocytopenia 05/18/2014 10/19/2019 Last Assessment & Plan: Assessment: Platelet low since February 2019 per [facility] documentation No bleeding PLT 132-->106-->119-->114-->107-->124-->116-->110-->132 Plan: - Monitor Pl - Platelets stable and 132 at time of discharge Vertigo 05/18/2014 09/17/2023 Need for prophylactic immunotherapy 04/07/2014 10/19/2019 History of encephalopathy 02/06/2013 Overview: Secondary to cirrhosis. Currently alert, oriented x3, no signs of decompensated encephalopathy. Plan: - continue home regimen of lactulose, rifaximin and zinc Last Assessment & Plan: Assessment: hx secondary to cirrhosis Duodenal ulcer 02/06/2013 10/25/2020 Overview: Duodenal ulcers seen on EGD 01/31/13. Plan: Continue pantoprazole 40mg qday. Last Assessment & Plan: Assessment: h/o, no longer taking rx SUMMARY 01/13/2013 10/19/2019 Overview: Mr. 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 Mr. Sanon and his describe two normal bowel movements earlier in the day, and 3 episodes of blood in the stool since about 2 PM this afternoon. He describes the first episode as having fresh bright red blood larger in volume than several tablespoons which also mixed into the stool and toilet water. He had another episode earlier this evening, and a third episode upon admission to [facility] which was much less blood and mostly mixed into the stool. He denies hemoptysis, hematemesis, or other site of bleeding. Upon discharge 02/04/13 his hemoglobin was 8.6. In the ED tonight, Hgb is 8.4, Hct 24.4, plt 41. Ascites 01/13/2013 10/19/2019 Overview: Patient denies known history of SBP. Denies current abdominal tenderness, and no large volume ascites with need for paracentesis 02/06/2013. Plan: - ? Diuretics - will D/W nephrology Hyperbilirubinemia 01/13/2013 Overview: Arthritis 09/17/2023 Cataract of both eyes 2023 CRVO (central retinal vein occlusion) 09/17/2023 Overview: OD Tributary (branch) retinal v ein occlusion, left eye, with macular edema 09/17/2023 Overview: OS Hypertensive retinopathy Overview: mild Amblyopia of left eye 2023 Cirrhosis of liver 1 Retinal edema 09/17/2023 documented as of this encounter (statuses as of 11/08/2023) [facility]02-03-2024 History of Past illness Narrative* Problem Noted Date Diagnosed Date Resolved Date Type 2 diabetes mellitus wit h hyperglycemia, without long-term current use of insulin 09/21/2023 10/26/2023 Last Assessment & Plan: Not on any medical management at home prior -> insulin initiated at [facility] current admission Diabetic education completed 09/25 Plan: - AccuChecks ACHS - Endocrinology is following, appreciate recommendations Hyperosmolar hyperglycemic state (HHS) 09/17/2023 09/18/2023 Azotemia 09/17/2023 10/16/2023 Hyponatremia 09/17/2023 09/18/2023 Coronary artery disease due to lipid rich plaque 08/28/2023 09/17/2023 Last Assessment & Plan: Assessment: Recent complex staged PCI (last intervention 07/09/23 with stents - 4 of which are overlapping and 2 of them supplying the critical territory of the LAD) Patient on dual antiplatelet therapy with aspirin 81 mg and Plavix Of note, patient held Plavix for 5 days prior to liver biopsy on 08/20 (see elevated LFTs) Today, patient without cardiac complaints - reports feeling well overall Plan: - Cardiology consulted for recommendations regarding holding anti-platelet medication for possible biopsy or ERCP--> would be suboptimal given the above risk factors, would be high-risk for potentially fatal ST since he is still only 1.5 months out of his last PCI. - Re-start Plavix today - Continue to monitor - Continue aspirin 81 mg daily, atorvastatin, coreg, diltiazem Complication of liver transplant 08/27/2023 09/17/2023 S/P angioplasty with stent 08/06/2023 0 09/17/2023 Last Assessment & Plan: Assessment: on 06/05/2023- abnormal stress test and underwent a diagnostic LHC that showed severe stenosis in proximal to mid LAD, D1, dLCx, and pOM1. A staged PCI to the ostial to mid LAD with 2 overlapping stents and the mLAD to first diagonal 06/11/[address] Whitaker. A staged PCI on 07/09/2023 at [facility] by Dr. Whitaker, with PCI with stent placement to the ramus intermedius and OM2. On ASA 81mg (to be on indefinitely) and plavix for at least 12 months after stent placement. 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 Hyperkalemia 12/13/2021 12/18/2021 Last Assessment & Plan: Assessment: Improved, K+ is 4.9 on today's labs. Hyperkalemic trends with recent BMPs. PLAN: - Continuous tele monitoring ordered - Daily BMPs Ileus, postoperative 12/13/2021 022 Last Assessment & Plan: Assessment: POD3 ventral hernia repair with mesh. Now with bowel function. No nausea, vomiting. PLAN: - D/C NGT. - Advance to CLD - Continue to get OOB Ventral hernia, recurrent 12/12/2021 Thoracic aorta atherosclerosis 10/12/2021 09/17/2023 Last Assessment & Plan: Assessment: maximal dimension 4.0cm on echo 10/2019 Prostate disorder 05/18/2021 09/17/2023 Last Assessment & Plan: Assessment: no current tx Chronic lumbar pain 06/16/2020 09/17/19 Overview: Seeing Dr. Cedeno (12/2020) Last Assessment & Plan: Assessment: following pain management Dr. Cedeno Metabolic acidosis 11/25/2019 Medication management 05/18/20192019 Hyperkalemia 04/24/2019 10/25/2020 Last Assessment & Plan: K 5.2 at time of discharge, likely elevated in setting of NASIR on CKD Patient also stated that he was eating potatoes with every meal because that was what they were giving him He has had hyperkalemia in the past PLAN: - Switched to renal diet - Educated patient on what foods to avoid - Recheck BMP on Saturday at PCP follow up appointment for monitoring of K History of deep venous throm bosis (DVT) of distal vein of right lower extremity 04/06/2019 Overview: 02/2019: 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 Last Assessment & Plan: Assessment: h/o DVT 2018, +lupus anticoagulant positive, on daily ASA Transaminitis 03/25/2019 03/27/2019 Pain in left foot 02/20/2019 10/25/2020 Chronic pain of both ankles 12/13/2017 09/17/2023 Balance problem 06/19/2016 09/17/2023 Last Assessment & Plan: Assessment; POA, stable - Patient reports trouble with balance since his liver transplant - neurologic exam significant for decreased pinprick in bilateral LE distal to mid-calf - folate 6.3, B12 532 - TSH 1.71 - HIV 1/2 nonreactive, hepatitis remote panel negative - STEFAN negative - ddx: peripheral neuropathy (nutritional, metabolic, medication side effect) vs cerebellar degeneration (prior EtOH use) - exam consistent with length dependent, small fiber nerve involvement most likely secondary to T2DM vs medications (immunosuppressants, sirolimus) PLAN: - Follow up peripheral neuropathy labs - PT/OT/PMR- acute rehab CKD (chronic kidney disease) stage 3, GFR 30-59 ml/min 06/19/2016 10/25/2020 Overview: Seeing Dr. Vipul Perez [facility] Prostate cancer screening 02/22/2016 Well adult exam 05/18/2014 10/19/2019 Overview: last done 08/24/2016 Thrombocytopenia 05/18/2014 10/19/2019 Last Assessment & Plan: Assessment: Platelet low since February 2019 per [facility] documentation No bleeding PLT 132-->106-->119-->114-->107-->124-->116-->110-->132 Plan: - Monitor Pl - Platelets stable and 132 at time of discharge Vertigo 05/18/2014 09/17/2023 Need for prophylactic immunotherapy 04/07/2014 10/19/2019 History of encephalopathy 02/06/2013 Overview: Secondary to cirrhosis. Currently alert, oriented x3, no signs of decompensated encephalopathy. Plan: - continue home regimen of lactulose, rifaximin and zinc Last Assessment & Plan: Assessment: hx secondary to cirrhosis Duodenal ulcer 02/06/2013 10/25/2020 Overview: Duodenal ulcers seen on EGD 01/31/13. Plan: Continue pantoprazole 40mg qday. Last Assessment & Plan: Assessment: h/o, no longer taking rx SUMMARY 01/13/2013 10/19/2019 Overview: Mr. 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 Mr. Sanon and his describe two normal bowel movements earlier in the day, and 3 episodes of blood in the stool since about 2 PM this afternoon. He describes the first episode as having fresh bright red blood larger in volume than several tablespoons which also mixed into the stool and toilet water. He had another episode earlier this evening, and a third episode upon admission to [facility] which was much less blood and mostly mixed into the stool. He denies hemoptysis, hematemesis, or other site of bleeding. Upon discharge 02/04/13 his hemoglobin was 8.6. In the ED tonight, Hgb is 8.4, Hct 24.4, plt 41. Ascites 01/13/2013 10/19/2019 Overview: Patient denies known history of SBP. Denies current abdominal tenderness, and no large volume ascites with need for paracentesis 02/06/2013. Plan: - ? Diuretics - will D/W nephrology Hyperbilirubinemia 01/13/2013 Overview: Arthritis 09/17/2023 Cataract of both eyes 2023 CRVO (central retinal vein occlusion) 09/17/2023 Overview: OD Tributary (branch) retinal v ein occlusion, left eye, with macular edema 09/17/2023 Overview: OS Hypertensive retinopathy Overview: mild Amblyopia of left eye 2023 Cirrhosis of liver 1 Retinal edema 09/17/2023 documented as of this encounter (statuses as of 11/19/2023) [facility]02-03-2024 History of Past illness Narrative* Problem Noted Date Diagnosed Date Resolved Date Type 2 diabetes mellitus wit h hyperglycemia, without long-term current use of insulin 09/21/2023 10/26/2023 Last Assessment & Plan: Not on any medical management at home prior -> insulin initiated at [facility] current admission Diabetic education completed 09/25 Plan: - Cleve RODRIGUEZ - Endocrinology is following, appreciate recommendations Hyperosmolar hyperglycemic state (HHS) 09/17/2023 09/18/2023 Azotemia 09/17/2023 10/16/2023 Hyponatremia 09/17/2023 09/18/2023 Coronary artery disease due to lipid rich plaque 08/28/2023 09/17/2023 Last Assessment & Plan: Assessment: Recent complex staged PCI (last intervention 07/09/23 with stents - 4 of which are overlapping and 2 of them supplying the critical territory of the LAD) Patient on dual antiplatelet therapy with aspirin 81 mg and Plavix Of note, patient held Plavix for 5 days prior to liver biopsy on 08/20 (see elevated LFTs) Today, patient without cardiac complaints - reports feeling well overall Plan: - Cardiology consulted for recommendations regarding holding anti-platelet medication for possible biopsy or ERCP--> would be suboptimal given the above risk factors, would be high-risk for potentially fatal ST since he is still only 1.5 months out of his last PCI. - Re-start Plavix today - Continue to monitor - Continue aspirin 81 mg daily, atorvastatin, coreg, diltiazem Complication of liver transplant 08/27/2023 09/17/2023 S/P angioplasty with stent 08/06/2023 0 09/17/2023 Last Assessment & Plan: Assessment: on 06/05/2023- abnormal stress test and underwent a diagnostic LHC that showed severe stenosis in proximal to mid LAD, D1, dLCx, and pOM1. A staged PCI to the ostial to mid LAD with 2 overlapping stents and the mLAD to first diagonal 06/11/[address] Whitaker. A staged PCI on 07/09/2023 at [facility] by Dr. Whitaker, with PCI with stent placement to the ramus intermedius and OM2. On ASA 81mg (to be on indefinitely) and plavix for at least 12 months after stent placement. 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 Hyperkalemia 12/13/2021 12/18/2021 Last Assessment & Plan: Assessment: Improved, K+ is 4.9 on today's labs. Hyperkalemic trends with recent BMPs. PLAN: - Continuous tele monitoring ordered - Daily BMPs Ileus, postoperative 12/13/2021 022 Last Assessment & Plan: Assessment: POD3 ventral hernia repair with mesh. Now with bowel function. No nausea, vomiting. PLAN: - D/C NGT. - Advance to CLD - Continue to get OOB Ventral hernia, recurrent 12/12/2021 Thoracic aorta atherosclerosis 10/12/2021 09/17/2023 Last Assessment & Plan: Assessment: maximal dimension 4.0cm on echo 10/2019 Prostate disorder 05/18/2021 09/17/2023 Last Assessment & Plan: Assessment: no current tx Chronic lumbar pain 06/16/2020 09/17/19 Overview: Seeing Dr. Cedeno (12/2020) Last Assessment & Plan: Assessment: following pain management Dr. Cedeno Metabolic acidosis 11/25/2019 Medication management 05/18/20192019 Hyperkalemia 04/24/2019 10/25/2020 Last Assessment & Plan: K 5.2 at time of discharge, likely elevated in setting of NASIR on CKD Patient also stated that he was eating potatoes with every meal because that was what they were giving him He has had hyperkalemia in the past PLAN: - Switched to renal diet - Educated patient on what foods to avoid - Recheck BMP on Saturday at PCP follow up appointment for monitoring of K History of deep venous throm bosis (DVT) of distal vein of right lower extremity 04/06/2019 Overview: 02/2019: was to be on [facility] anticoagulation. 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 Last Assessment & Plan: Assessment: h/o DVT 2018, +lupus anticoagulant positive, on daily ASA Transaminitis 03/25/2019 03/27/2019 Pain in left foot 02/20/2019 10/25/2020 Chronic pain of both ankles 12/13/2017 09/17/2023 Balance problem 06/19/2016 09/17/2023 Last Assessment & Plan: Assessment; POA, stable - Patient reports trouble with balance since his liver transplant - neurologic exam significant for decreased pinprick in bilateral LE distal to mid-calf - folate 6.3, B12 532 - TSH 1.71 - HIV 1/2 nonreactive, hepatitis remote panel negative - STEFAN negative - ddx: peripheral neuropathy (nutritional, metabolic, medication side effect) vs cerebellar degeneration (prior EtOH use) - exam consistent with length dependent, small fiber nerve involvement most likely secondary to T2DM vs medications (immunosuppressants, sirolimus) PLAN: - Follow up peripheral neuropathy labs - PT/OT/PMR- acute rehab CKD (chronic kidney disease) stage 3, GFR 30-59 ml/min 06/19/2016 10/25/2020 Overview: Seeing Dr. Vipul Perez [facility] Prostate cancer screening 02/22/2016 Well adult exam 05/18/2014 10/19/2019 Overview: last done 08/24/2016 Thrombocytopenia 05/18/2014 10/19/2019 Last Assessment & Plan: Assessment: Platelet low since February 2019 per [facility] documentation No bleeding PLT 132-->106-->119-->114-->107-->124-->116-->110-->132 Plan: - Monitor Pl - Platelets stable and 132 at time of discharge Vertigo 05/18/2014 09/17/2023 Need for prophylactic immunotherapy 04/07/2014 10/19/2019 History of encephalopathy 02/06/2013 Overview: Secondary to cirrhosis. Currently alert, oriented x3, no signs of decompensated encephalopathy. Plan: - continue home regimen of lactulose, rifaximin and zinc Last Assessment & Plan: Assessment: hx secondary to cirrhosis Duodenal ulcer 02/06/2013 10/25/2020 Overview: Duodenal ulcers seen on EGD 01/31/13. Plan: Continue pantoprazole 40mg qday. Last Assessment & Plan: Assessment: h/o, no longer taking rx SUMMARY 01/13/2013 10/19/2019 Overview: Mr. 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 Mr. Sanon and his describe two normal bowel movements earlier in the day, and 3 episodes of blood in the stool since about 2 PM this afternoon. He describes the first episode as having fresh bright red blood larger in volume than several tablespoons which also mixed into the stool and toilet water. He had another episode earlier this evening, and a third episode upon admission to [facility] which was much less blood and mostly mixed into the stool. He denies hemoptysis, hematemesis, or other site of bleeding. Upon discharge 02/04/13 his hemoglobin was 8.6. In the ED tonight, Hgb is 8.4, Hct 24.4, plt 41. Ascites 01/13/2013 10/19/2019 Overview: Patient denies known history of SBP. Denies current abdominal tenderness, and no large volume ascites with need for paracentesis 02/06/2013. Plan: - ? Diuretics - will D/W nephrology Hyperbilirubinemia 01/13/2013 Overview: Arthritis 09/17/2023 Cataract of both eyes 2023 CRVO (central retinal vein occlusion) 09/17/2023 Overview: OD Tributary (branch) retinal v ein occlusion, left eye, with macular edema 09/17/2023 Overview: OS Hypertensive retinopathy Overview: mild Amblyopia of left eye 2023 Cirrhosis of liver 1 Retinal edema 09/17/2023 documented as of this encounter (statuses as of 11/21/2023) [facility]02-03-2024 History of Past illness Narrative* Problem Noted Date Diagnosed Date Resolved Date Type 2 diabetes mellitus wit h hyperglycemia, without long-term current use of insulin 09/21/2023 10/26/2023 Last Assessment & Plan: Not on any medical management at home prior -> insulin initiated at [facility] current admission Diabetic education completed 09/25 Plan: - Cleve RODRIGUEZ - Endocrinology is following, appreciate recommendations Hyperosmolar hyperglycemic state (HHS) 09/17/2023 09/18/2023 Azotemia 09/17/2023 10/16/2023 Hyponatremia 09/17/2023 09/18/2023 Coronary artery disease due to lipid rich plaque 08/28/2023 09/17/2023 Last Assessment & Plan: Assessment: Recent complex staged PCI (last intervention 07/09/23 with stents - 4 of which are overlapping and 2 of them supplying the critical territory of the LAD) Patient on dual antiplatelet therapy with aspirin 81 mg and Plavix Of note, patient held Plavix for 5 days prior to liver biopsy on 08/20 (see elevated LFTs) Today, patient without cardiac complaints - reports feeling well overall Plan: - Cardiology consulted for recommendations regarding holding anti-platelet medication for possible biopsy or ERCP--> would be suboptimal given the above risk factors, would be high-risk for potentially fatal ST since he is still only 1.5 months out of his last PCI. - Re-start Plavix today - Continue to monitor - Continue aspirin 81 mg daily, atorvastatin, coreg, diltiazem Complication of liver transplant 08/27/2023 09/17/2023 S/P angioplasty with stent 08/06/2023 0 09/17/2023 Last Assessment & Plan: Assessment: on 06/05/2023- abnormal stress test and underwent a diagnostic LHC that showed severe stenosis in proximal to mid LAD, D1, dLCx, and pOM1. A staged PCI to the ostial to mid LAD with 2 overlapping stents and the mLAD to first diagonal 06/11/[address] Whitaker. A staged PCI on 07/09/2023 at [facility] by Dr. Whitaker, with PCI with stent placement to the ramus intermedius and OM2. On ASA 81mg (to be on indefinitely) and plavix for at least 12 months after stent placement. 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 Hyperkalemia 12/13/2021 12/18/2021 Last Assessment & Plan: Assessment: Improved, K+ is 4.9 on today's labs. Hyperkalemic trends with recent BMPs. PLAN: - Continuous tele monitoring ordered - Daily BMPs Ileus, postoperative 12/13/2021 022 Last Assessment & Plan: Assessment: POD3 ventral hernia repair with mesh. Now with bowel function. No nausea, vomiting. PLAN: - D/C NGT. - Advance to CLD - Continue to get OOB Ventral hernia, recurrent 12/12/2021 Thoracic aorta atherosclerosis 10/12/2021 09/17/2023 Last Assessment & Plan: Assessment: maximal dimension 4.0cm on echo 10/2019 Prostate disorder 05/18/2021 09/17/2023 Last Assessment & Plan: Assessment: no current tx Chronic lumbar pain 06/16/2020 09/17/19 Overview: Seeing Dr. Cedeno (12/2020) Last Assessment & Plan: Assessment: following pain management Dr. Cedeno Metabolic acidosis 11/25/2019 Medication management 05/18/20192019 Hyperkalemia 04/24/2019 10/25/2020 Last Assessment & Plan: K 5.2 at time of discharge, likely elevated in setting of NASIR on CKD Patient also stated that he was eating potatoes with every meal because that was what they were giving him He has had hyperkalemia in the past PLAN: - Switched to renal diet - Educated patient on what foods to avoid - Recheck BMP on Saturday at PCP follow up appointment for monitoring of K History of deep venous throm bosis (DVT) of distal vein of right lower extremity 04/06/2019 Overview: 02/2019: 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 Last Assessment & Plan: Assessment: h/o DVT 2018, +lupus anticoagulant positive, on daily ASA Transaminitis 03/25/2019 03/27/2019 Pain in left foot 02/20/2019 10/25/2020 Chronic pain of both ankles 12/13/2017 09/17/2023 Balance problem 06/19/2016 09/17/2023 Last Assessment & Plan: Assessment; POA, stable - Patient reports trouble with balance since his liver transplant - neurologic exam significant for decreased pinprick in bilateral LE distal to mid-calf - folate 6.3, B12 532 - TSH 1.71 - HIV 1/2 nonreactive, hepatitis remote panel negative - STEFAN negative - ddx: peripheral neuropathy (nutritional, metabolic, medication side effect) vs cerebellar degeneration (prior EtOH use) - exam consistent with length dependent, small fiber nerve involvement most likely secondary to T2DM vs medications (immunosuppressants, sirolimus) PLAN: - Follow up peripheral neuropathy labs - PT/OT/PMR- acute rehab CKD (chronic kidney disease) stage 3, GFR 30-59 ml/min 06/19/2016 10/25/2020 Overview: Seeing Dr. Vipul Perez [facility] Prostate cancer screening 02/22/2016 Well adult exam 05/18/2014 10/19/2019 Overview: last done 08/24/2016 Thrombocytopenia 05/18/2014 10/19/2019 Last Assessment & Plan: Assessment: Platelet low since February 2019 per [facility] documentation No bleeding PLT 132-->106-->119-->114-->107-->124-->116-->110-->132 Plan: - Monitor Pl - Platelets stable and 132 at time of discharge Vertigo 05/18/2014 09/17/2023 Need for prophylactic immunotherapy 04/07/2014 10/19/2019 History of encephalopathy 02/06/2013 Overview: Secondary to cirrhosis. Currently alert, oriented x3, no signs of decompensated encephalopathy. Plan: - continue home regimen of lactulose, rifaximin and zinc Last Assessment & Plan: Assessment: hx secondary to cirrhosis Duodenal ulcer 02/06/2013 10/25/2020 Overview: Duodenal ulcers seen on EGD 01/31/13. Plan: Continue pantoprazole 40mg qday. Last Assessment & Plan: Assessment: h/o, no longer taking rx SUMMARY 01/13/2013 10/19/2019 Overview: Mr. 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 Mr. Sanon and his describe two normal bowel movements earlier in the day, and 3 episodes of blood in the stool since about 2 PM this afternoon. He describes the first episode as having fresh bright red blood larger in volume than several tablespoons which also mixed into the stool and toilet water. He had another episode earlier this evening, and a third episode upon admission to [facility] which was much less blood and mostly mixed into the stool. He denies hemoptysis, hematemesis, or other site of bleeding. Upon discharge 02/04/13 his hemoglobin was 8.6. In the ED tonight, Hgb is 8.4, Hct 24.4, plt 41. Ascites 01/13/2013 10/19/2019 Overview: Patient denies known history of SBP. Denies current abdominal tenderness, and no large volume ascites with need for paracentesis 02/06/2013. Plan: - ? Diuretics - will D/W nephrology Hyperbilirubinemia 01/13/2013 Overview: Arthritis 09/17/2023 Cataract of both eyes 2023 CRVO (central retinal vein occlusion) 09/17/2023 Overview: OD Tributary (branch) retinal v ein occlusion, left eye, with macular edema 09/17/2023 Overview: OS Hypertensive retinopathy Overview: mild Amblyopia of left eye 2023 Cirrhosis of liver 1 Retinal edema 09/17/2023 documented as of this encounter (statuses as of 11/22/2023) [facility]02-03-2024 History of Past illness Narrative* Problem Noted Date Diagnosed Date Resolved Date Type 2 diabetes mellitus wit h hyperglycemia, without long-term current use of insulin 09/21/2023 10/26/2023 Last Assessment & Plan: Not on any medical management at home prior -> insulin initiated at [facility] current admission Diabetic education completed 09/25 Plan: - AccuChecks ACHS - Endocrinology is following, appreciate recommendations Hyperosmolar hyperglycemic state (HHS) 09/17/2023 09/18/2023 Azotemia 09/17/2023 10/16/2023 Hyponatremia 09/17/2023 09/18/2023 Coronary artery disease due to lipid rich plaque 08/28/2023 09/17/2023 Last Assessment & Plan: Assessment: Recent complex staged PCI (last intervention 07/09/23 with stents - 4 of which are overlapping and 2 of them supplying the critical territory of the LAD) Patient on dual antiplatelet therapy with aspirin 81 mg and Plavix Of note, patient held Plavix for 5 days prior to liver biopsy on 08/20 (see elevated LFTs) Today, patient without cardiac complaints - reports feeling well overall Plan: - Cardiology consulted for recommendations regarding holding anti-platelet medication for possible biopsy or ERCP--> would be suboptimal given the above risk factors, would be high-risk for potentially fatal ST since he is still only 1.5 months out of his last PCI. - Re-start Plavix today - Continue to monitor - Continue aspirin 81 mg daily, atorvastatin, coreg, diltiazem Complication of liver transplant 08/27/2023 09/17/2023 S/P angioplasty with stent 08/06/2023 0 09/17/2023 Last Assessment & Plan: Assessment: on 06/05/2023- abnormal stress test and underwent a diagnostic LHC that showed severe stenosis in proximal to mid LAD, D1, dLCx, and pOM1. A staged PCI to the ostial to mid LAD with 2 overlapping stents and the mLAD to first diagonal 06/11/[address] Whitaker. A staged PCI on 07/09/2023 at [facility] by Dr. Whitaker, with PCI with stent placement to the ramus intermedius and OM2. On ASA 81mg (to be on indefinitely) and plavix for at least 12 months after stent placement. 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 Hyperkalemia 12/13/2021 12/18/2021 Last Assessment & Plan: Assessment: Improved, K+ is 4.9 on today's labs. Hyperkalemic trends with recent BMPs. PLAN: - Continuous tele monitoring ordered - Daily BMPs Ileus, postoperative 12/13/2021 022 Last Assessment & Plan: Assessment: POD3 ventral hernia repair with mesh. Now with bowel function. No nausea, vomiting. PLAN: - D/C NGT. - Advance to CLD - Continue to get OOB Ventral hernia, recurrent 12/12/2021 Thoracic aorta atherosclerosis 10/12/2021 09/17/2023 Last Assessment & Plan: Assessment: maximal dimension 4.0cm on echo 10/2019 Prostate disorder 05/18/2021 09/17/2023 Last Assessment & Plan: Assessment: no current tx Chronic lumbar pain 06/16/2020 09/17/19 24 Overview: Seeing Dr. Cedeno (12/2020) Last Assessment & Plan: Assessment: following pain management Dr. Cedeno Metabolic acidosis 11/25/2019 Medication management 05/18/20192019 Hyperkalemia 04/24/2019 10/25/2020 Last Assessment & Plan: K 5.2 at time of discharge, likely elevated in setting of NSAIR on CKD Patient also stated that he was eating potatoes with every meal because that was what they were giving him He has had hyperkalemia in the past PLAN: - Switched to renal diet - Educated patient on what foods to avoid - Recheck BMP on Saturday at PCP follow up appointment for monitoring of K History of deep venous throm bosis (DVT) of distal vein of right lower extremity 04/06/2019 Overview: 02/2019: 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 Last Assessment & Plan: Assessment: h/o DVT 2018, +lupus anticoagulant positive, on daily ASA Transaminitis 03/25/2019 03/27/2019 Pain in left foot 02/20/2019 10/25/2020 Chronic pain of both ankles 12/13/2017 09/17/2023 Balance problem 06/19/2016 09/17/2023 Last Assessment & Plan: Assessment; POA, stable - Patient reports trouble with balance since his liver transplant - neurologic exam significant for decreased pinprick in bilateral LE distal to mid-calf - folate 6.3, B12 532 - TSH 1.71 - HIV 1/2 nonreactive, hepatitis remote panel negative - STEFAN negative - ddx: peripheral neuropathy (nutritional, metabolic, medication side effect) vs cerebellar degeneration (prior EtOH use) - exam consistent with length dependent, small fiber nerve involvement most likely secondary to T2DM vs medications (immunosuppressants, sirolimus) PLAN: - Follow up peripheral neuropathy labs - PT/OT/PMR- acute rehab CKD (chronic kidney disease) stage 3, GFR 30-59 ml/min 06/19/2016 10/25/2020 Overview: Seeing Dr. Vipul Perez [facility] Prostate cancer screening 02/22/2016 Well adult exam 05/18/2014 10/19/2019 Overview: last done 08/24/2016 Thrombocytopenia 05/18/2014 10/19/2019 Last Assessment & Plan: Assessment: Platelet low since February 2019 per Epic documentation No bleeding PLT 132-->106-->119-->114-->107-->124-->116-->110-->132 Plan: - Monitor Pl - Platelets stable and 132 at time of discharge Vertigo 05/18/2014 09/17/2023 Need for prophylactic immunotherapy 04/07/2014 10/19/2019 History of encephalopathy 02/06/2013 Overview: Secondary to cirrhosis. Currently alert, oriented x3, no signs of decompensated encephalopathy. Plan: - continue home regimen of lactulose, rifaximin and zinc Last Assessment & Plan: Assessment: hx secondary to cirrhosis Duodenal ulcer 02/06/2013 10/25/2020 Overview: Duodenal ulcers seen on EGD 01/31/13. Plan: Continue pantoprazole 40mg qday. Last Assessment & Plan: Assessment: h/o, no longer taking rx SUMMARY 01/13/2013 10/19/2019 Overview: Mr. 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 Mr. Sanon and his describe two normal bowel movements earlier in the day, and 3 episodes of blood in the stool since about 2 PM this afternoon. He describes the first episode as having fresh bright red blood larger in volume than several tablespoons which also mixed into the stool and toilet water. He had another episode earlier this evening, and a third episode upon admission to [facility] which was much less blood and mostly mixed into the stool. He denies hemoptysis, hematemesis, or other site of bleeding. Upon discharge 02/04/13 his hemoglobin was 8.6. In the ED tonight, Hgb is 8.4, Hct 24.4, plt 41. Ascites 01/13/2013 10/19/2019 Overview: Patient denies known history of SBP. Denies current abdominal tenderness, and no large volume ascites with need for paracentesis 02/06/2013. Plan: - ? Diuretics - will D/W nephrology Hyperbilirubinemia 01/13/2013 Overview: Arthritis 09/17/2023 Cataract of both eyes 2023 CRVO (central retinal vein occlusion) 09/17/2023 Overview: OD Tributary (branch) retinal v ein occlusion, left eye, with macular edema 09/17/2023 Overview: OS Hypertensive retinopathy Overview: mild Amblyopia of left eye 2023 Cirrhosis of liver 1 Retinal edema 09/17/2023 documented as of this encounter (statuses as of 11/23/2023) [facility]02-03-2024 History of Past illness Narrative* Problem Noted Date Diagnosed Date Resolved Date Type 2 diabetes mellitus wit h hyperglycemia, without long-term current use of insulin 09/21/2023 10/26/2023 Last Assessment & Plan: Not on any medical management at home prior -> insulin initiated at [facility] current admission Diabetic education completed 09/25 Plan: - [employer] RODRIGUEZ - Endocrinology is following, appreciate recommendations Hyperosmolar hyperglycemic state (HHS) 09/17/2023 09/18/2023 Azotemia 09/17/2023 10/16/2023 Hyponatremia 09/17/2023 09/18/2023 Coronary artery disease due to lipid rich plaque 08/28/2023 09/17/2023 Last Assessment & Plan: Assessment: Recent complex staged PCI (last intervention 07/09/23 with stents - 4 of which are overlapping and 2 of them supplying the critical territory of the LAD) Patient on dual antiplatelet therapy with aspirin 81 mg and Plavix Of note, patient held Plavix for 5 days prior to liver biopsy on 08/20 (see elevated LFTs) Today, patient without cardiac complaints - reports feeling well overall Plan: - Cardiology consulted for recommendations regarding holding anti-platelet medication for possible biopsy or ERCP--> would be suboptimal given the above risk factors, would be high-risk for potentially fatal ST since he is still only 1.5 months out of his last PCI. - Re-start Plavix today - Continue to monitor - Continue aspirin 81 mg daily, atorvastatin, coreg, diltiazem Complication of liver transplant 08/27/2023 09/17/2023 S/P angioplasty with stent 08/06/2023 0 09/17/2023 Last Assessment & Plan: Assessment: on 06/05/2023- abnormal stress test and underwent a diagnostic LHC that showed severe stenosis in proximal to mid LAD, D1, dLCx, and pOM1. A staged PCI to the ostial to mid LAD with 2 overlapping stents and the mLAD to first diagonal 06/11/[address] Whitaker. A staged PCI on 07/09/2023 at [facility] by Dr. Whitaker, with PCI with stent placement to the ramus intermedius and OM2. On ASA 81mg (to be on indefinitely) and plavix for at least 12 months after stent placement. 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 Hyperkalemia 12/13/2021 12/18/2021 Last Assessment & Plan: Assessment: Improved, K+ is 4.9 on today's labs. Hyperkalemic trends with recent BMPs. PLAN: - Continuous tele monitoring ordered - Daily BMPs Ileus, postoperative 12/13/2021 022 Last Assessment & Plan: Assessment: POD3 ventral hernia repair with mesh. Now with bowel function. No nausea, vomiting. PLAN: - D/C NGT. - Advance to CLD - Continue to get OOB Ventral hernia, recurrent 12/12/2021 Thoracic aorta atherosclerosis 10/12/2021 09/17/2023 Last Assessment & Plan: Assessment: maximal dimension 4.0cm on echo 10/2019 Prostate disorder 05/18/2021 09/17/2023 Last Assessment & Plan: Assessment: no current tx Chronic lumbar pain 06/16/2020 09/17/19 24 Overview: Seeing Dr. Cedeno (12/2020) Last Assessment & Plan: Assessment: following pain management Dr. Cedeno Metabolic acidosis 11/25/2019 Medication management 05/18/20192019 Hyperkalemia 04/24/2019 10/25/2020 Last Assessment & Plan: K 5.2 at time of discharge, likely elevated in setting of NAISR on CKD Patient also stated that he was eating potatoes with every meal because that was what they were giving him He has had hyperkalemia in the past PLAN: - Switched to renal diet - Educated patient on what foods to avoid - Recheck BMP on Saturday at PCP follow up appointment for monitoring of K History of deep venous throm bosis (DVT) of distal vein of right lower extremity 04/06/2019 Overview: 02/2019: 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 Last Assessment & Plan: Assessment: h/o DVT 2018, +lupus anticoagulant positive, on daily ASA Transaminitis 03/25/2019 03/27/2019 Pain in left foot 02/20/2019 10/25/2020 Chronic pain of both ankles 12/13/2017 09/17/2023 Balance problem 06/19/2016 09/17/2023 Last Assessment & Plan: Assessment; POA, stable - Patient reports trouble with balance since his liver transplant - neurologic exam significant for decreased pinprick in bilateral LE distal to mid-calf - folate 6.3, B12 532 - TSH 1.71 - HIV 1/2 nonreactive, hepatitis remote panel negative - STEFAN negative - ddx: peripheral neuropathy (nutritional, metabolic, medication side effect) vs cerebellar degeneration (prior EtOH use) - exam consistent with length dependent, small fiber nerve involvement most likely secondary to T2DM vs medications (immunosuppressants, sirolimus) PLAN: - Follow up peripheral neuropathy labs - PT/OT/PMR- acute rehab CKD (chronic kidney disease) stage 3, GFR 30-59 ml/min 06/19/2016 10/25/2020 Overview: Seeing Dr. Vipul Perez [facility] Prostate cancer screening 02/22/2016 Well adult exam 05/18/2014 10/19/2019 Overview: last done 08/24/2016 Thrombocytopenia 05/18/2014 10/19/2019 Last Assessment & Plan: Assessment: Platelet low since February 2019 per [facility] documentation No bleeding PLT 132-->106-->119-->114-->107-->124-->116-->110-->132 Plan: - Monitor Pl - Platelets stable and 132 at time of discharge Vertigo 05/18/2014 09/17/2023 Need for prophylactic immunotherapy 04/07/2014 10/19/2019 History of encephalopathy 02/06/2013 Overview: Secondary to cirrhosis. Currently alert, oriented x3, no signs of decompensated encephalopathy. Plan: - continue home regimen of lactulose, rifaximin and zinc Last Assessment & Plan: Assessment: hx secondary to cirrhosis Duodenal ulcer 02/06/2013 10/25/2020 Overview: Duodenal ulcers seen on EGD 01/31/13. Plan: Continue pantoprazole 40mg qday. Last Assessment & Plan: Assessment: h/o, no longer taking rx SUMMARY 01/13/2013 10/19/2019 Overview: Mr. 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 Mr. Sanon and his describe two normal bowel movements earlier in the day, and 3 episodes of blood in the stool since about 2 PM this afternoon. He describes the first episode as having fresh bright red blood larger in volume than several tablespoons which also mixed into the stool and toilet water. He had another episode earlier this evening, and a third episode upon admission to [facility] which was much less blood and mostly mixed into the stool. He denies hemoptysis, hematemesis, or other site of bleeding. Upon discharge 02/04/13 his hemoglobin was 8.6. In the ED tonight, Hgb is 8.4, Hct 24.4, plt 41. Ascites 01/13/2013 10/19/2019 Overview: Patient denies known history of SBP. Denies current abdominal tenderness, and no large volume ascites with need for paracentesis 02/06/2013. Plan: - ? Diuretics - will D/W nephrology Hyperbilirubinemia 01/13/2013 Overview: Arthritis 09/17/2023 Cataract of both eyes 2023 CRVO (central retinal vein occlusion) 09/17/2023 Overview: OD Tributary (branch) retinal v ein occlusion, left eye, with macular edema 09/17/2023 Overview: OS Hypertensive retinopathy Overview: mild Amblyopia of left eye 2023 Cirrhosis of liver Retinal edema 09/17/2023 documented as of this encounter (statuses as of 11/23/2023) [facility]02-03-2024 History of Past illness Narrative* Problem Noted Date Diagnosed Date Resolved Date Type 2 diabetes mellitus wit h hyperglycemia, without long-term current use of insulin 09/21/2023 10/26/2023 Last Assessment & Plan: Not on any medical management at home prior -> insulin initiated at [facility] current admission Diabetic education completed 09/25 Plan: - Cleve RODRIGUEZ - Endocrinology is following, appreciate recommendations Hyperosmolar hyperglycemic state (HHS) 09/17/2023 09/18/2023 Azotemia 09/17/2023 10/16/2023 Hyponatremia 09/17/2023 09/18/2023 Coronary artery disease due to lipid rich plaque 08/28/2023 09/17/2023 Last Assessment & Plan: Assessment: Recent complex staged PCI (last intervention 07/09/23 with stents - 4 of which are overlapping and 2 of them supplying the critical territory of the LAD) Patient on dual antiplatelet therapy with aspirin 81 mg and Plavix Of note, patient held Plavix for 5 days prior to liver biopsy on 08/20 (see elevated LFTs) Today, patient without cardiac complaints - reports feeling well overall Plan: - Cardiology consulted for recommendations regarding holding anti-platelet medication for possible biopsy or ERCP--> would be suboptimal given the above risk factors, would be high-risk for potentially fatal ST since he is still only 1.5 months out of his last PCI. - Re-start Plavix today - Continue to monitor - Continue aspirin 81 mg daily, atorvastatin, coreg, diltiazem Complication of liver transplant 08/27/2023 09/17/2023 S/P angioplasty with stent 08/06/2023 0 09/17/2023 Last Assessment & Plan: Assessment: on 06/05/2023- abnormal stress test and underwent a diagnostic LHC that showed severe stenosis in proximal to mid LAD, D1, dLCx, and pOM1. A staged PCI to the ostial to mid LAD with 2 overlapping stents and the mLAD to first diagonal 06/11/[address] Whitaker. A staged PCI on 07/09/2023 at [facility] by Dr. Whitaker, with PCI with stent placement to the ramus intermedius and OM2. On ASA 81mg (to be on indefinitely) and plavix for at least 12 months after stent placement. 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 Hyperkalemia 12/13/2021 12/18/2021 Last Assessment & Plan: Assessment: Improved, K+ is 4.9 on today's labs. Hyperkalemic trends with recent BMPs. PLAN: - Continuous tele monitoring ordered - Daily BMPs Ileus, postoperative 12/13/2021 022 Last Assessment & Plan: Assessment: POD3 ventral hernia repair with mesh. Now with bowel function. No nausea, vomiting. PLAN: - D/C NGT. - Advance to CLD - Continue to get OOB Ventral hernia, recurrent 12/12/2021 Thoracic aorta atherosclerosis 10/12/2021 09/17/2023 Last Assessment & Plan: Assessment: maximal dimension 4.0cm on echo 10/2019 Prostate disorder 05/18/2021 09/17/2023 Last Assessment & Plan: Assessment: no current tx Chronic lumbar pain 06/16/2020 09/17/19 Overview: Seeing Dr. Cedeno (12/2020) Last Assessment & Plan: Assessment: following pain management Dr. Cedeno Metabolic acidosis 11/25/2019 Medication management 05/18/20192019 Hyperkalemia 04/24/2019 10/25/2020 Last Assessment & Plan: K 5.2 at time of discharge, likely elevated in setting of NASIR on CKD Patient also stated that he was eating potatoes with every meal because that was what they were giving him He has had hyperkalemia in the past PLAN: - Switched to renal diet - Educated patient on what foods to avoid - Recheck BMP on Saturday at PCP follow up appointment for monitoring of K History of deep venous throm bosis (DVT) of distal vein of right lower extremity 04/06/2019 Overview: 02/2019: 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 Last Assessment & Plan: Assessment: h/o DVT 2018, +lupus anticoagulant positive, on daily ASA Transaminitis 03/25/2019 03/27/2019 Pain in left foot 02/20/2019 10/25/2020 Chronic pain of both ankles 12/13/2017 09/17/2023 Balance problem 06/19/2016 09/17/2023 Last Assessment & Plan: Assessment; POA, stable - Patient reports trouble with balance since his liver transplant - neurologic exam significant for decreased pinprick in bilateral LE distal to mid-calf - folate 6.3, B12 532 - TSH 1.71 - HIV 1/2 nonreactive, hepatitis remote panel negative - STEFAN negative - ddx: peripheral neuropathy (nutritional, metabolic, medication side effect) vs cerebellar degeneration (prior EtOH use) - exam consistent with length dependent, small fiber nerve involvement most likely secondary to T2DM vs medications (immunosuppressants, sirolimus) PLAN: - Follow up peripheral neuropathy labs - PT/OT/PMR- acute rehab CKD (chronic kidney disease) stage 3, GFR 30-59 ml/min 06/19/2016 10/25/2020 Overview: Seeing Dr. Vipul Perez [facility] Prostate cancer screening 02/22/2016 Well adult exam 05/18/2014 10/19/2019 Overview: last done 08/24/2016 Thrombocytopenia 05/18/2014 10/19/2019 Last Assessment & Plan: Assessment: Platelet low since February 2019 per [facility] documentation No bleeding PLT 132-->106-->119-->114-->107-->124-->116-->110-->132 Plan: - Monitor Pl - Platelets stable and 132 at time of discharge Vertigo 05/18/2014 09/17/2023 Need for prophylactic immunotherapy 04/07/2014 10/19/2019 History of encephalopathy 02/06/2013 Overview: Secondary to cirrhosis. Currently alert, oriented x3, no signs of decompensated encephalopathy. Plan: - continue home regimen of lactulose, rifaximin and zinc Last Assessment & Plan: Assessment: hx secondary to cirrhosis Duodenal ulcer 02/06/2013 10/25/2020 Overview: Duodenal ulcers seen on EGD 01/31/13. Plan: Continue pantoprazole 40mg qday. Last Assessment & Plan: Assessment: h/o, no longer taking rx SUMMARY 01/13/2013 10/19/2019 Overview: Mr. 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 Mr. Sanon and his describe two normal bowel movements earlier in the day, and 3 episodes of blood in the stool since about 2 PM this afternoon. He describes the first episode as having fresh bright red blood larger in volume than several tablespoons which also mixed into the stool and toilet water. He had another episode earlier this evening, and a third episode upon admission to [facility] which was much less blood and mostly mixed into the stool. He denies hemoptysis, hematemesis, or other site of bleeding. Upon discharge 02/04/13 his hemoglobin was 8.6. In the ED tonight, Hgb is 8.4, Hct 24.4, plt 41. Ascites 01/13/2013 10/19/2019 Overview: Patient denies known history of SBP. Denies current abdominal tenderness, and no large volume ascites with need for paracentesis 02/06/2013. Plan: - ? Diuretics - will D/W nephrology Hyperbilirubinemia 01/13/2013 Overview: Arthritis 09/17/2023 Cataract of both eyes 2023 CRVO (central retinal vein occlusion) 09/17/2023 Overview: OD Tributary (branch) retinal v ein occlusion, left eye, with macular edema 09/17/2023 Overview: OS Hypertensive retinopathy Overview: mild Amblyopia of left eye 2023 Cirrhosis of liver 1 Retinal edema 09/17/2023 documented as of this encounter (statuses as of 11/25/2023) [facility]02-03-2024 History of Past illness Narrative* Problem Noted Date Diagnosed Date Resolved Date Type 2 diabetes mellitus wit h hyperglycemia, without long-term current use of insulin 09/21/2023 10/26/2023 Last Assessment & Plan: Not on any medical management at home prior -> insulin initiated at [facility] current admission Diabetic education completed 09/25 Plan: - Cleve RODRIGUEZ - Endocrinology is following, appreciate recommendations Hyperosmolar hyperglycemic state (HHS) 09/17/2023 09/18/2023 Azotemia 09/17/2023 10/16/2023 Hyponatremia 09/17/2023 09/18/2023 Coronary artery disease due to lipid rich plaque 08/28/2023 09/17/2023 Last Assessment & Plan: Assessment: Recent complex staged PCI (last intervention 07/09/23 with stents - 4 of which are overlapping and 2 of them supplying the critical territory of the LAD) Patient on dual antiplatelet therapy with aspirin 81 mg and Plavix Of note, patient held Plavix for 5 days prior to liver biopsy on 08/20 (see elevated LFTs) Today, patient without cardiac complaints - reports feeling well overall Plan: - Cardiology consulted for recommendations regarding holding anti-platelet medication for possible biopsy or ERCP--> would be suboptimal given the above risk factors, would be high-risk for potentially fatal ST since he is still only 1.5 months out of his last PCI. - Re-start Plavix today - Continue to monitor - Continue aspirin 81 mg daily, atorvastatin, coreg, diltiazem Complication of liver transplant 08/27/2023 09/17/2023 S/P angioplasty with stent 08/06/2023 0 09/17/2023 Last Assessment & Plan: Assessment: on 06/05/2023- abnormal stress test and underwent a diagnostic LHC that showed severe stenosis in proximal to mid LAD, D1, dLCx, and pOM1. A staged PCI to the ostial to mid LAD with 2 overlapping stents and the mLAD to first diagonal 06/11/[address] Whitaker. A staged PCI on 07/09/2023 at [facility] by Dr. Whitaker, with PCI with stent placement to the ramus intermedius and OM2. On ASA 81mg (to be on indefinitely) and plavix for at least 12 months after stent placement. 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 Hyperkalemia 12/13/2021 12/18/2021 Last Assessment & Plan: Assessment: Improved, K+ is 4.9 on today's labs. Hyperkalemic trends with recent BMPs. PLAN: - Continuous tele monitoring ordered - Daily BMPs Ileus, postoperative 12/13/2021 022 Last Assessment & Plan: Assessment: POD3 ventral hernia repair with mesh. Now with bowel function. No nausea, vomiting. PLAN: - D/C NGT. - Advance to CLD - Continue to get OOB Ventral hernia, recurrent 12/12/2021 Thoracic aorta atherosclerosis 10/12/2021 09/17/2023 Last Assessment & Plan: Assessment: maximal dimension 4.0cm on echo 10/2019 Prostate disorder 05/18/2021 09/17/2023 Last Assessment & Plan: Assessment: no current tx Chronic lumbar pain 06/16/2020 09/17/19 24 Overview: Seeing Dr. Cedeno (12/2020) Last Assessment & Plan: Assessment: following pain management Dr. Cedeno Metabolic acidosis 11/25/2019 Medication management 05/18/20192019 Hyperkalemia 04/24/2019 10/25/2020 Last Assessment & Plan: K 5.2 at time of discharge, likely elevated in setting of NASIR on CKD Patient also stated that he was eating potatoes with every meal because that was what they were giving him He has had hyperkalemia in the past PLAN: - Switched to renal diet - Educated patient on what foods to avoid - Recheck BMP on Saturday at PCP follow up appointment for monitoring of K History of deep venous throm bosis (DVT) of distal vein of right lower extremity 04/06/2019 Overview: 02/2019: 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 Last Assessment & Plan: Assessment: h/o DVT 2018, +lupus anticoagulant positive, on daily ASA Transaminitis 03/25/2019 03/27/2019 Pain in left foot 02/20/2019 10/25/2020 Chronic pain of both ankles 12/13/2017 09/17/2023 Balance problem 06/19/2016 09/17/2023 Last Assessment & Plan: Assessment; POA, stable - Patient reports trouble with balance since his liver transplant - neurologic exam significant for decreased pinprick in bilateral LE distal to mid-calf - folate 6.3, B12 532 - TSH 1.71 - HIV 1/2 nonreactive, hepatitis remote panel negative - STEFAN negative - ddx: peripheral neuropathy (nutritional, metabolic, medication side effect) vs cerebellar degeneration (prior EtOH use) - exam consistent with length dependent, small fiber nerve involvement most likely secondary to T2DM vs medications (immunosuppressants, sirolimus) PLAN: - Follow up peripheral neuropathy labs - PT/OT/PMR- acute rehab CKD (chronic kidney disease) stage 3, GFR 30-59 ml/min 06/19/2016 10/25/2020 Overview: Seeing Dr. Vipul Perez [facility] Prostate cancer screening 02/22/2016 Well adult exam 05/18/2014 10/19/2019 Overview: last done 08/24/2016 Thrombocytopenia 05/18/2014 10/19/2019 Last Assessment & Plan: Assessment: Platelet low since February 2019 per [facility] documentation No bleeding PLT 132-->106-->119-->114-->107-->124-->116-->110-->132 Plan: - Monitor Pl - Platelets stable and 132 at time of discharge Vertigo 05/18/2014 09/17/2023 Need for prophylactic immunotherapy 04/07/2014 10/19/2019 History of encephalopathy 02/06/2013 Overview: Secondary to cirrhosis. Currently alert, oriented x3, no signs of decompensated encephalopathy. Plan: - continue home regimen of lactulose, rifaximin and zinc Last Assessment & Plan: Assessment: hx secondary to cirrhosis Duodenal ulcer 02/06/2013 10/25/2020 Overview: Duodenal ulcers seen on EGD 01/31/13. Plan: Continue pantoprazole 40mg qday. Last Assessment & Plan: Assessment: h/o, no longer taking rx SUMMARY 01/13/2013 10/19/2019 Overview: Mr. 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 Mr. Sanon and his describe two normal bowel movements earlier in the day, and 3 episodes of blood in the stool since about 2 PM this afternoon. He describes the first episode as having fresh bright red blood larger in volume than several tablespoons which also mixed into the stool and toilet water. He had another episode earlier this evening, and a third episode upon admission to [facility] which was much less blood and mostly mixed into the stool. He denies hemoptysis, hematemesis, or other site of bleeding. Upon discharge 02/04/13 his hemoglobin was 8.6. In the ED tonight, Hgb is 8.4, Hct 24.4, plt 41. Ascites 01/13/2013 10/19/2019 Overview: Patient denies known history of SBP. Denies current abdominal tenderness, and no large volume ascites with need for paracentesis 02/06/2013. Plan: - ? Diuretics - will D/W nephrology Hyperbilirubinemia 01/13/2013 Overview: Arthritis 09/17/2023 Cataract of both eyes 2023 CRVO (central retinal vein occlusion) 09/17/2023 Overview: OD Tributary (branch) retinal v ein occlusion, left eye, with macular edema 09/17/2023 Overview: OS Hypertensive retinopathy Overview: mild Amblyopia of left eye 2023 Cirrhosis of liver 1 Retinal edema 09/17/2023 documented as of this encounter (statuses as of 11/25/2023) [facility]02-03-2024 History of Past illness Narrative* Problem Noted Date Diagnosed Date Resolved Date Type 2 diabetes mellitus wit h hyperglycemia, without long-term current use of insulin 09/21/2023 10/26/2023 Last Assessment & Plan: Not on any medical management at home prior -> insulin initiated at [facility] current admission Diabetic education completed 09/25 Plan: - Accu[employer]cks SUZIS - Endocrinology is following, appreciate recommendations Hyperosmolar hyperglycemic state (HHS) 09/17/2023 09/18/2023 Azotemia 09/17/2023 10/16/2023 Hyponatremia 09/17/2023 09/18/2023 Coronary artery disease due to lipid rich plaque 08/28/2023 09/17/2023 Last Assessment & Plan: Assessment: Recent complex staged PCI (last intervention 07/09/23 with stents - 4 of which are overlapping and 2 of them supplying the critical territory of the LAD) Patient on dual antiplatelet therapy with aspirin 81 mg and Plavix Of note, patient held Plavix for 5 days prior to liver biopsy on 08/20 (see elevated LFTs) Today, patient without cardiac complaints - reports feeling well overall Plan: - Cardiology consulted for recommendations regarding holding anti-platelet medication for possible biopsy or ERCP--> would be suboptimal given the above risk factors, would be high-risk for potentially fatal ST since he is still only 1.5 months out of his last PCI. - Re-start Plavix today - Continue to monitor - Continue aspirin 81 mg daily, atorvastatin, coreg, diltiazem Complication of liver transplant 08/27/2023 09/17/2023 S/P angioplasty with stent 08/06/2023 0 09/17/2023 Last Assessment & Plan: Assessment: on 06/05/2023- abnormal stress test and underwent a diagnostic LHC that showed severe stenosis in proximal to mid LAD, D1, dLCx, and pOM1. A staged PCI to the ostial to mid LAD with 2 overlapping stents and the mLAD to first diagonal 06/11/[address] Whitaker. A staged PCI on 07/09/2023 at [facility] by Dr. Whitaker, with PCI with stent placement to the ramus intermedius and OM2. On ASA 81mg (to be on indefinitely) and plavix for at least 12 months after stent placement. 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 Hyperkalemia 12/13/2021 12/18/2021 Last Assessment & Plan: Assessment: Improved, K+ is 4.9 on today's labs. Hyperkalemic trends with recent BMPs. PLAN: - Continuous tele monitoring ordered - Daily BMPs Ileus, postoperative 12/13/2021 022 Last Assessment & Plan: Assessment: POD3 ventral hernia repair with mesh. Now with bowel function. No nausea, vomiting. PLAN: - D/C NGT. - Advance to CLD - Continue to get OOB Ventral hernia, recurrent 12/12/2021 Thoracic aorta atherosclerosis 10/12/2021 09/17/2023 Last Assessment & Plan: Assessment: maximal dimension 4.0cm on echo 10/2019 Prostate disorder 05/18/2021 09/17/2023 Last Assessment & Plan: Assessment: no current tx Chronic lumbar pain 06/16/2020 09/17/19 24 Overview: Seeing Dr. Cedeno (12/2020) Last Assessment & Plan: Assessment: following pain management Dr. Cedeno Metabolic acidosis 11/25/2019 Medication management 05/18/20192019 Hyperkalemia 04/24/2019 10/25/2020 Last Assessment & Plan: K 5.2 at time of discharge, likely elevated in setting of NASIR on CKD Patient also stated that he was eating potatoes with every meal because that was what they were giving him He has had hyperkalemia in the past PLAN: - Switched to renal diet - Educated patient on what foods to avoid - Recheck BMP on Saturday at PCP follow up appointment for monitoring of K History of deep venous throm bosis (DVT) of distal vein of right lower extremity 04/06/2019 Overview: 02/2019: 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 Last Assessment & Plan: Assessment: h/o DVT 2018, +lupus anticoagulant positive, on daily ASA Transaminitis 03/25/2019 03/27/2019 Pain in left foot 02/20/2019 10/25/2020 Chronic pain of both ankles 12/13/2017 09/17/2023 Balance problem 06/19/2016 09/17/2023 Last Assessment & Plan: Assessment; POA, stable - Patient reports trouble with balance since his liver transplant - neurologic exam significant for decreased pinprick in bilateral LE distal to mid-calf - folate 6.3, B12 532 - TSH 1.71 - HIV 1/2 nonreactive, hepatitis remote panel negative - STEFAN negative - ddx: peripheral neuropathy (nutritional, metabolic, medication side effect) vs cerebellar degeneration (prior EtOH use) - exam consistent with length dependent, small fiber nerve involvement most likely secondary to T2DM vs medications (immunosuppressants, sirolimus) PLAN: - Follow up peripheral neuropathy labs - PT/OT/PMR- acute rehab CKD (chronic kidney disease) stage 3, GFR 30-59 ml/min 06/19/2016 10/25/2020 Overview: Seeing Dr. Vipul Perez [facility] Prostate cancer screening 02/22/2016 Well adult exam 05/18/2014 10/19/2019 Overview: last done 08/24/2016 Thrombocytopenia 05/18/2014 10/19/2019 Last Assessment & Plan: Assessment: Platelet low since February 2019 per [facility] documentation No bleeding PLT 132-->106-->119-->114-->107-->124-->116-->110-->132 Plan: - Monitor Pl - Platelets stable and 132 at time of discharge Vertigo 05/18/2014 09/17/2023 Need for prophylactic immunotherapy 04/07/2014 10/19/2019 History of encephalopathy 02/06/2013 Overview: Secondary to cirrhosis. Currently alert, oriented x3, no signs of decompensated encephalopathy. Plan: - continue home regimen of lactulose, rifaximin and zinc Last Assessment & Plan: Assessment: hx secondary to cirrhosis Duodenal ulcer 02/06/2013 10/25/2020 Overview: Duodenal ulcers seen on EGD 01/31/13. Plan: Continue pantoprazole 40mg qday. Last Assessment & Plan: Assessment: h/o, no longer taking rx SUMMARY 01/13/2013 10/19/2019 Overview: Mr. 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 Mr. Sanon and his describe two normal bowel movements earlier in the day, and 3 episodes of blood in the stool since about 2 PM this afternoon. He describes the first episode as having fresh bright red blood larger in volume than several tablespoons which also mixed into the stool and toilet water. He had another episode earlier this evening, and a third episode upon admission to [facility] which was much less blood and mostly mixed into the stool. He denies hemoptysis, hematemesis, or other site of bleeding. Upon discharge 02/04/13 his hemoglobin was 8.6. In the ED tonight, Hgb is 8.4, Hct 24.4, plt 41. Ascites 01/13/2013 10/19/2019 Overview: Patient denies known history of SBP. Denies current abdominal tenderness, and no large volume ascites with need for paracentesis 02/06/2013. Plan: - ? Diuretics - will D/W nephrology Hyperbilirubinemia 01/13/2013 Overview: Arthritis 09/17/2023 Cataract of both eyes 2023 CRVO (central retinal vein occlusion) 09/17/2023 Overview: OD Tributary (branch) retinal v ein occlusion, left eye, with macular edema 09/17/2023 Overview: OS Hypertensive retinopathy Overview: mild Amblyopia of left eye 2023 Cirrhosis of liver Retinal edema 09/17/2023 documented as of this encounter (statuses as of 11/25/2023) [facility]02-03-2024 History of Past illness Narrative* Problem Noted Date Diagnosed Date Resolved Date Type 2 diabetes mellitus wit h hyperglycemia, without long-term current use of insulin 09/21/2023 10/26/2023 Last Assessment & Plan: Not on any medical management at home prior -> insulin initiated at [facility] current admission Diabetic education completed 09/25 Plan: - Cleve RODRIGUEZ - Endocrinology is following, appreciate recommendations Hyperosmolar hyperglycemic state (HHS) 09/17/2023 09/18/2023 Azotemia 09/17/2023 10/16/2023 Hyponatremia 09/17/2023 09/18/2023 Coronary artery disease due to lipid rich plaque 08/28/2023 09/17/2023 Last Assessment & Plan: Assessment: Recent complex staged PCI (last intervention 07/09/23 with stents - 4 of which are overlapping and 2 of them supplying the critical territory of the LAD) Patient on dual antiplatelet therapy with aspirin 81 mg and Plavix Of note, patient held Plavix for 5 days prior to liver biopsy on 08/20 (see elevated LFTs) Today, patient without cardiac complaints - reports feeling well overall Plan: - Cardiology consulted for recommendations regarding holding anti-platelet medication for possible biopsy or ERCP--> would be suboptimal given the above risk factors, would be high-risk for potentially fatal ST since he is still only 1.5 months out of his last PCI. - Re-start Plavix today - Continue to monitor - Continue aspirin 81 mg daily, atorvastatin, coreg, diltiazem Complication of liver transplant 08/27/2023 09/17/2023 S/P angioplasty with stent 08/06/2023 0 09/17/2023 Last Assessment & Plan: Assessment: on 06/05/2023- abnormal stress test and underwent a diagnostic LHC that showed severe stenosis in proximal to mid LAD, D1, dLCx, and pOM1. A staged PCI to the ostial to mid LAD with 2 overlapping stents and the mLAD to first diagonal 06/11/[address] Whitaker. A staged PCI on 07/09/2023 at [facility] by Dr. Whitaker, with PCI with stent placement to the ramus intermedius and OM2. On ASA 81mg (to be on indefinitely) and plavix for at least 12 months after stent placement. 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 Hyperkalemia 12/13/2021 12/18/2021 Last Assessment & Plan: Assessment: Improved, K+ is 4.9 on today's labs. Hyperkalemic trends with recent BMPs. PLAN: - Continuous tele monitoring ordered - Daily BMPs Ileus, postoperative 12/13/2021 022 Last Assessment & Plan: Assessment: POD3 ventral hernia repair with mesh. Now with bowel function. No nausea, vomiting. PLAN: - D/C NGT. - Advance to CLD - Continue to get OOB Ventral hernia, recurrent 12/12/2021 Thoracic aorta atherosclerosis 10/12/2021 09/17/2023 Last Assessment & Plan: Assessment: maximal dimension 4.0cm on echo 10/2019 Prostate disorder 05/18/2021 09/17/2023 Last Assessment & Plan: Assessment: no current tx Chronic lumbar pain 06/16/2020 09/17/19 Overview: Seeing Dr. Cedeno (12/2020) Last Assessment & Plan: Assessment: following pain management Dr. Cedeno Metabolic acidosis 11/25/2019 Medication management 05/18/20192019 Hyperkalemia 04/24/2019 10/25/2020 Last Assessment & Plan: K 5.2 at time of discharge, likely elevated in setting of NASIR on CKD Patient also stated that he was eating potatoes with every meal because that was what they were giving him He has had hyperkalemia in the past PLAN: - Switched to renal diet - Educated patient on what foods to avoid - Recheck BMP on Saturday at PCP follow up appointment for monitoring of K History of deep venous throm bosis (DVT) of distal vein of right lower extremity 04/06/2019 Overview: 02/2019: was to be on penitentiary anticoagulation. 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 Last Assessment & Plan: Assessment: h/o DVT 2018, +lupus anticoagulant positive, on daily ASA Transaminitis 03/25/2019 03/27/2019 Pain in left foot 02/20/2019 10/25/2020 Chronic pain of both ankles 12/13/2017 09/17/2023 Balance problem 06/19/2016 09/17/2023 Last Assessment & Plan: Assessment; POA, stable - Patient reports trouble with balance since his liver transplant - neurologic exam significant for decreased pinprick in bilateral LE distal to mid-calf - folate 6.3, B12 532 - TSH 1.71 - HIV 1/2 nonreactive, hepatitis remote panel negative - STEFAN negative - ddx: peripheral neuropathy (nutritional, metabolic, medication side effect) vs cerebellar degeneration (prior EtOH use) - exam consistent with length dependent, small fiber nerve involvement most likely secondary to T2DM vs medications (immunosuppressants, sirolimus) PLAN: - Follow up peripheral neuropathy labs - PT/OT/PMR- acute rehab CKD (chronic kidney disease) stage 3, GFR 30-59 ml/min 06/19/2016 10/25/2020 Overview: Seeing Dr. Vipul Perez [facility] Prostate cancer screening 02/22/2016 Well adult exam 05/18/2014 10/19/2019 Overview: last done 08/24/2016 Thrombocytopenia 05/18/2014 10/19/2019 Last Assessment & Plan: Assessment: Platelet low since February 2019 per [facility] documentation No bleeding PLT 132-->106-->119-->114-->107-->124-->116-->110-->132 Plan: - Monitor Pl - Platelets stable and 132 at time of discharge Vertigo 05/18/2014 09/17/2023 Need for prophylactic immunotherapy 04/07/2014 10/19/2019 History of encephalopathy 02/06/2013 Overview: Secondary to cirrhosis. Currently alert, oriented x3, no signs of decompensated encephalopathy. Plan: - continue home regimen of lactulose, rifaximin and zinc Last Assessment & Plan: Assessment: hx secondary to cirrhosis Duodenal ulcer 02/06/2013 10/25/2020 Overview: Duodenal ulcers seen on EGD 01/31/13. Plan: Continue pantoprazole 40mg qday. Last Assessment & Plan: Assessment: h/o, no longer taking rx SUMMARY 01/13/2013 10/19/2019 Overview: Mr. 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 Mr. Sanon and his describe two normal bowel movements earlier in the day, and 3 episodes of blood in the stool since about 2 PM this afternoon. He describes the first episode as having fresh bright red blood larger in volume than several tablespoons which also mixed into the stool and toilet water. He had another episode earlier this evening, and a third episode upon admission to [facility] which was much less blood and mostly mixed into the stool. He denies hemoptysis, hematemesis, or other site of bleeding. Upon discharge 02/04/13 his hemoglobin was 8.6. In the ED tonight, Hgb is 8.4, Hct 24.4, plt 41. Ascites 01/13/2013 10/19/2019 Overview: Patient denies known history of SBP. Denies current abdominal tenderness, and no large volume ascites with need for paracentesis 02/06/2013. Plan: - ? Diuretics - will D/W nephrology Hyperbilirubinemia 01/13/2013 Overview: Arthritis 09/17/2023 Cataract of both eyes 2023 CRVO (central retinal vein occlusion) 09/17/2023 Overview: OD Tributary (branch) retinal v ein occlusion, left eye, with macular edema 09/17/2023 Overview: OS Hypertensive retinopathy Overview: mild Amblyopia of left eye 2023 Cirrhosis of liver 1 Retinal edema 09/17/2023 documented as of this encounter (statuses as of 11/27/2023) [facility]02-03-2024 History of Past illness Narrative* Problem Noted Date Diagnosed Date Resolved Date Type 2 diabetes mellitus wit h hyperglycemia, without long-term current use of insulin 09/21/2023 10/26/2023 Last Assessment & Plan: Not on any medical management at home prior -> insulin initiated at [facility] current admission Diabetic education completed 09/25 Plan: - Cleve RODRIGUEZ - Endocrinology is following, appreciate recommendations Hyperosmolar hyperglycemic state (HHS) 09/17/2023 09/18/2023 Azotemia 09/17/2023 10/16/2023 Hyponatremia 09/17/2023 09/18/2023 Coronary artery disease due to lipid rich plaque 08/28/2023 09/17/2023 Last Assessment & Plan: Assessment: Recent complex staged PCI (last intervention 07/09/23 with stents - 4 of which are overlapping and 2 of them supplying the critical territory of the LAD) Patient on dual antiplatelet therapy with aspirin 81 mg and Plavix Of note, patient held Plavix for 5 days prior to liver biopsy on 08/20 (see elevated LFTs) Today, patient without cardiac complaints - reports feeling well overall Plan: - Cardiology consulted for recommendations regarding holding anti-platelet medication for possible biopsy or ERCP--> would be suboptimal given the above risk factors, would be high-risk for potentially fatal ST since he is still only 1.5 months out of his last PCI. - Re-start Plavix today - Continue to monitor - Continue aspirin 81 mg daily, atorvastatin, coreg, diltiazem Complication of liver transplant 08/27/2023 09/17/2023 S/P angioplasty with stent 08/06/2023 0 09/17/2023 Last Assessment & Plan: Assessment: on 06/05/2023- abnormal stress test and underwent a diagnostic LHC that showed severe stenosis in proximal to mid LAD, D1, dLCx, and pOM1. A staged PCI to the ostial to mid LAD with 2 overlapping stents and the mLAD to first diagonal 06/11/[address] Whitaker. A staged PCI on 07/09/2023 at [facility] by Dr. Whitaker, with PCI with stent placement to the ramus intermedius and OM2. On ASA 81mg (to be on indefinitely) and plavix for at least 12 months after stent placement. 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 Hyperkalemia 12/13/2021 12/18/2021 Last Assessment & Plan: Assessment: Improved, K+ is 4.9 on today's labs. Hyperkalemic trends with recent BMPs. PLAN: - Continuous tele monitoring ordered - Daily BMPs Ileus, postoperative 12/13/2021 022 Last Assessment & Plan: Assessment: POD3 ventral hernia repair with mesh. Now with bowel function. No nausea, vomiting. PLAN: - D/C NGT. - Advance to CLD - Continue to get OOB Ventral hernia, recurrent 12/12/2021 Thoracic aorta atherosclerosis 10/12/2021 09/17/2023 Last Assessment & Plan: Assessment: maximal dimension 4.0cm on echo 10/2019 Prostate disorder 05/18/2021 09/17/2023 Last Assessment & Plan: Assessment: no current tx Chronic lumbar pain 06/16/2020 09/17/19 Overview: Seeing Dr. Cedeno (12/2020) Last Assessment & Plan: Assessment: following pain management Dr. Cedeno Metabolic acidosis 11/25/2019 Medication management 05/18/20192019 Hyperkalemia 04/24/2019 10/25/2020 Last Assessment & Plan: K 5.2 at time of discharge, likely elevated in setting of NASIR on CKD Patient also stated that he was eating potatoes with every meal because that was what they were giving him He has had hyperkalemia in the past PLAN: - Switched to renal diet - Educated patient on what foods to avoid - Recheck BMP on Saturday at PCP follow up appointment for monitoring of K History of deep venous throm bosis (DVT) of distal vein of right lower extremity 04/06/2019 Overview: 02/2019: 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 Last Assessment & Plan: Assessment: h/o DVT 2018, +lupus anticoagulant positive, on daily ASA Transaminitis 03/25/2019 03/27/2019 Pain in left foot 02/20/2019 10/25/2020 Chronic pain of both ankles 12/13/2017 09/17/2023 Balance problem 06/19/2016 09/17/2023 Last Assessment & Plan: Assessment; POA, stable - Patient reports trouble with balance since his liver transplant - neurologic exam significant for decreased pinprick in bilateral LE distal to mid-calf - folate 6.3, B12 532 - TSH 1.71 - HIV 1/2 nonreactive, hepatitis remote panel negative - STEFAN negative - ddx: peripheral neuropathy (nutritional, metabolic, medication side effect) vs cerebellar degeneration (prior EtOH use) - exam consistent with length dependent, small fiber nerve involvement most likely secondary to T2DM vs medications (immunosuppressants, sirolimus) PLAN: - Follow up peripheral neuropathy labs - PT/OT/PMR- acute rehab CKD (chronic kidney disease) stage 3, GFR 30-59 ml/min 06/19/2016 10/25/2020 Overview: Seeing Dr. Vipul Perez [facility] Prostate cancer screening 02/22/2016 Well adult exam 05/18/2014 10/19/2019 Overview: last done 08/24/2016 Thrombocytopenia 05/18/2014 10/19/2019 Last Assessment & Plan: Assessment: Platelet low since February 2019 per [facility] documentation No bleeding PLT 132-->106-->119-->114-->107-->124-->116-->110-->132 Plan: - Monitor Pl - Platelets stable and 132 at time of discharge Vertigo 05/18/2014 09/17/2023 Need for prophylactic immunotherapy 04/07/2014 10/19/2019 History of encephalopathy 02/06/2013 Overview: Secondary to cirrhosis. Currently alert, oriented x3, no signs of decompensated encephalopathy. Plan: - continue home regimen of lactulose, rifaximin and zinc Last Assessment & Plan: Assessment: hx secondary to cirrhosis Duodenal ulcer 02/06/2013 10/25/2020 Overview: Duodenal ulcers seen on EGD 01/31/13. Plan: Continue pantoprazole 40mg qday. Last Assessment & Plan: Assessment: h/o, no longer taking rx SUMMARY 01/13/2013 10/19/2019 Overview: Mr. 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 Mr. Sanon and his describe two normal bowel movements earlier in the day, and 3 episodes of blood in the stool since about 2 PM this afternoon. He describes the first episode as having fresh bright red blood larger in volume than several tablespoons which also mixed into the stool and toilet water. He had another episode earlier this evening, and a third episode upon admission to [facility] which was much less blood and mostly mixed into the stool. He denies hemoptysis, hematemesis, or other site of bleeding. Upon discharge 02/04/13 his hemoglobin was 8.6. In the ED tonight, Hgb is 8.4, Hct 24.4, plt 41. Ascites 01/13/2013 10/19/2019 Overview: Patient denies known history of SBP. Denies current abdominal tenderness, and no large volume ascites with need for paracentesis 02/06/2013. Plan: - ? Diuretics - will D/W nephrology Hyperbilirubinemia 01/13/2013 Overview: Arthritis 09/17/2023 Cataract of both eyes 2023 CRVO (central retinal vein occlusion) 09/17/2023 Overview: OD Tributary (branch) retinal v ein occlusion, left eye, with macular edema 09/17/2023 Overview: OS Hypertensive retinopathy Overview: mild Amblyopia of left eye 2023 Cirrhosis of liver 1 Retinal edema 09/17/2023 documented as of this encounter (statuses as of 11/28/2023) [facility]02-03-2024 History of Past illness Narrative* Problem Noted Date Diagnosed Date Resolved Date Type 2 diabetes mellitus wit h hyperglycemia, without long-term current use of insulin 09/21/2023 10/26/2023 Last Assessment & Plan: Not on any medical management at home prior -> insulin initiated at [facility] current admission Diabetic education completed 09/25 Plan: - AccuChsudarshan RODRIGUEZ - Endocrinology is following, appreciate recommendations Hyperosmolar hyperglycemic state (HHS) 09/17/2023 09/18/2023 Azotemia 09/17/2023 10/16/2023 Hyponatremia 09/17/2023 09/18/2023 Coronary artery disease due to lipid rich plaque 08/28/2023 09/17/2023 Last Assessment & Plan: Assessment: Recent complex staged PCI (last intervention 07/09/23 with stents - 4 of which are overlapping and 2 of them supplying the critical territory of the LAD) Patient on dual antiplatelet therapy with aspirin 81 mg and Plavix Of note, patient held Plavix for 5 days prior to liver biopsy on 08/20 (see elevated LFTs) Today, patient without cardiac complaints - reports feeling well overall Plan: - Cardiology consulted for recommendations regarding holding anti-platelet medication for possible biopsy or ERCP--> would be suboptimal given the above risk factors, would be high-risk for potentially fatal ST since he is still only 1.5 months out of his last PCI. - Re-start Plavix today - Continue to monitor - Continue aspirin 81 mg daily, atorvastatin, coreg, diltiazem Complication of liver transplant 08/27/2023 09/17/2023 S/P angioplasty with stent 08/06/2023 0 09/17/2023 Last Assessment & Plan: Assessment: on 06/05/2023- abnormal stress test and underwent a diagnostic LHC that showed severe stenosis in proximal to mid LAD, D1, dLCx, and pOM1. A staged PCI to the ostial to mid LAD with 2 overlapping stents and the mLAD to first diagonal 06/11/[address] Whitaker. A staged PCI on 07/09/2023 at [facility] by Dr. Whitaker, with PCI with stent placement to the ramus intermedius and OM2. On ASA 81mg (to be on indefinitely) and plavix for at least 12 months after stent placement. 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 Hyperkalemia 12/13/2021 12/18/2021 Last Assessment & Plan: Assessment: Improved, K+ is 4.9 on today's labs. Hyperkalemic trends with recent BMPs. PLAN: - Continuous tele monitoring ordered - Daily BMPs Ileus, postoperative 12/13/2021 022 Last Assessment & Plan: Assessment: POD3 ventral hernia repair with mesh. Now with bowel function. No nausea, vomiting. PLAN: - D/C NGT. - Advance to CLD - Continue to get OOB Ventral hernia, recurrent 12/12/2021 Thoracic aorta atherosclerosis 10/12/2021 09/17/2023 Last Assessment & Plan: Assessment: maximal dimension 4.0cm on echo 10/2019 Prostate disorder 05/18/2021 09/17/2023 Last Assessment & Plan: Assessment: no current tx Chronic lumbar pain 06/16/2020 09/17/19 24 Overview: Seeing Dr. Cedeno (12/2020) Last Assessment & Plan: Assessment: following pain management Dr. Cedeno Metabolic acidosis 11/25/2019 Medication management 05/18/20192019 Hyperkalemia 04/24/2019 10/25/2020 Last Assessment & Plan: K 5.2 at time of discharge, likely elevated in setting of NASIR on CKD Patient also stated that he was eating potatoes with every meal because that was what they were giving him He has had hyperkalemia in the past PLAN: - Switched to renal diet - Educated patient on what foods to avoid - Recheck BMP on Saturday at PCP follow up appointment for monitoring of K History of deep venous throm bosis (DVT) of distal vein of right lower extremity 04/06/2019 Overview: 02/2019: was to be on penitentiary anticoagulation. 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 Last Assessment & Plan: Assessment: h/o DVT 2018, +lupus anticoagulant positive, on daily ASA Transaminitis 03/25/2019 03/27/2019 Pain in left foot 02/20/2019 10/25/2020 Chronic pain of both ankles 12/13/2017 09/17/2023 Balance problem 06/19/2016 09/17/2023 Last Assessment & Plan: Assessment; POA, stable - Patient reports trouble with balance since his liver transplant - neurologic exam significant for decreased pinprick in bilateral LE distal to mid-calf - folate 6.3, B12 532 - TSH 1.71 - HIV 1/2 nonreactive, hepatitis remote panel negative - STEFAN negative - ddx: peripheral neuropathy (nutritional, metabolic, medication side effect) vs cerebellar degeneration (prior EtOH use) - exam consistent with length dependent, small fiber nerve involvement most likely secondary to T2DM vs medications (immunosuppressants, sirolimus) PLAN: - Follow up peripheral neuropathy labs - PT/OT/PMR- acute rehab CKD (chronic kidney disease) stage 3, GFR 30-59 ml/min 06/19/2016 10/25/2020 Overview: Seeing Dr. Vipul Perez [facility] Prostate cancer screening 02/22/2016 Well adult exam 05/18/2014 10/19/2019 Overview: last done 08/24/2016 Thrombocytopenia 05/18/2014 10/19/2019 Last Assessment & Plan: Assessment: Platelet low since February 2019 per Epic documentation No bleeding PLT 132-->106-->119-->114-->107-->124-->116-->110-->132 Plan: - Monitor Pl - Platelets stable and 132 at time of discharge Vertigo 05/18/2014 09/17/2023 Need for prophylactic immunotherapy 04/07/2014 10/19/2019 History of encephalopathy 02/06/2013 Overview: Secondary to cirrhosis. Currently alert, oriented x3, no signs of decompensated encephalopathy. Plan: - continue home regimen of lactulose, rifaximin and zinc Last Assessment & Plan: Assessment: hx secondary to cirrhosis Duodenal ulcer 02/06/2013 10/25/2020 Overview: Duodenal ulcers seen on EGD 01/31/13. Plan: Continue pantoprazole 40mg qday. Last Assessment & Plan: Assessment: h/o, no longer taking rx SUMMARY 01/13/2013 10/19/2019 Overview: Mr. 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 Mr. Sanon and his describe two normal bowel movements earlier in the day, and 3 episodes of blood in the stool since about 2 PM this afternoon. He describes the first episode as having fresh bright red blood larger in volume than several tablespoons which also mixed into the stool and toilet water. He had another episode earlier this evening, and a third episode upon admission to [facility] which was much less blood and mostly mixed into the stool. He denies hemoptysis, hematemesis, or other site of bleeding. Upon discharge 02/04/13 his hemoglobin was 8.6. In the ED tonight, Hgb is 8.4, Hct 24.4, plt 41. Ascites 01/13/2013 10/19/2019 Overview: Patient denies known history of SBP. Denies current abdominal tenderness, and no large volume ascites with need for paracentesis 02/06/2013. Plan: - ? Diuretics - will D/W nephrology Hyperbilirubinemia 01/13/2013 Overview: Arthritis 09/17/2023 Cataract of both eyes 2023 CRVO (central retinal vein occlusion) 09/17/2023 Overview: OD Tributary (branch) retinal v ein occlusion, left eye, with macular edema 09/17/2023 Overview: OS Hypertensive retinopathy Overview: mild Amblyopia of left eye 2023 Cirrhosis of liver 1 Retinal edema 09/17/2023 documented as of this encounter (statuses as of 11/28/2023) [facility]02-03-2024 History of Past illness Narrative* Problem Noted Date Diagnosed Date Resolved Date Type 2 diabetes mellitus wit h hyperglycemia, without long-term current use of insulin 09/21/2023 10/26/2023 Last Assessment & Plan: Not on any medical management at home prior -> insulin initiated at [facility] current admission Diabetic education completed 09/25 Plan: - AccuCheckmahogany ARCHERS - Endocrinology is following, appreciate recommendations Hyperosmolar hyperglycemic state (HHS) 09/17/2023 09/18/2023 Azotemia 09/17/2023 10/16/2023 Hyponatremia 09/17/2023 09/18/2023 Coronary artery disease due to lipid rich plaque 08/28/2023 09/17/2023 Last Assessment & Plan: Assessment: Recent complex staged PCI (last intervention 07/09/23 with stents - 4 of which are overlapping and 2 of them supplying the critical territory of the LAD) Patient on dual antiplatelet therapy with aspirin 81 mg and Plavix Of note, patient held Plavix for 5 days prior to liver biopsy on 08/20 (see elevated LFTs) Today, patient without cardiac complaints - reports feeling well overall Plan: - Cardiology consulted for recommendations regarding holding anti-platelet medication for possible biopsy or ERCP--> would be suboptimal given the above risk factors, would be high-risk for potentially fatal ST since he is still only 1.5 months out of his last PCI. - Re-start Plavix today - Continue to monitor - Continue aspirin 81 mg daily, atorvastatin, coreg, diltiazem Complication of liver transplant 08/27/2023 09/17/2023 S/P angioplasty with stent 08/06/2023 0 09/17/2023 Last Assessment & Plan: Assessment: on 06/05/2023- abnormal stress test and underwent a diagnostic LHC that showed severe stenosis in proximal to mid LAD, D1, dLCx, and pOM1. A staged PCI to the ostial to mid LAD with 2 overlapping stents and the mLAD to first diagonal 06/11/[address] Whitaker. A staged PCI on 07/09/2023 at [facility] by Dr. Whitaker, with PCI with stent placement to the ramus intermedius and OM2. On ASA 81mg (to be on indefinitely) and plavix for at least 12 months after stent placement. 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 Hyperkalemia 12/13/2021 12/18/2021 Last Assessment & Plan: Assessment: Improved, K+ is 4.9 on today's labs. Hyperkalemic trends with recent BMPs. PLAN: - Continuous tele monitoring ordered - Daily BMPs Ileus, postoperative 12/13/2021 022 Last Assessment & Plan: Assessment: POD3 ventral hernia repair with mesh. Now with bowel function. No nausea, vomiting. PLAN: - D/C NGT. - Advance to CLD - Continue to get OOB Ventral hernia, recurrent 12/12/2021 Thoracic aorta atherosclerosis 10/12/2021 09/17/2023 Last Assessment & Plan: Assessment: maximal dimension 4.0cm on echo 10/2019 Prostate disorder 05/18/2021 09/17/2023 Last Assessment & Plan: Assessment: no current tx Chronic lumbar pain 06/16/2020 09/17/19 Overview: Seeing Dr. Cedeno (12/2020) Last Assessment & Plan: Assessment: following pain management Dr. Cedeno Metabolic acidosis 11/25/2019 Medication management 05/18/20192019 Hyperkalemia 04/24/2019 10/25/2020 Last Assessment & Plan: K 5.2 at time of discharge, likely elevated in setting of NASIR on CKD Patient also stated that he was eating potatoes with every meal because that was what they were giving him He has had hyperkalemia in the past PLAN: - Switched to renal diet - Educated patient on what foods to avoid - Recheck BMP on Saturday at PCP follow up appointment for monitoring of K History of deep venous throm bosis (DVT) of distal vein of right lower extremity 04/06/2019 Overview: 02/2019: was to be on penitentiary anticoagulation. 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 Last Assessment & Plan: Assessment: h/o DVT 2018, +lupus anticoagulant positive, on daily ASA Transaminitis 03/25/2019 03/27/2019 Pain in left foot 02/20/2019 10/25/2020 Chronic pain of both ankles 12/13/2017 09/17/2023 Balance problem 06/19/2016 09/17/2023 Last Assessment & Plan: Assessment; POA, stable - Patient reports trouble with balance since his liver transplant - neurologic exam significant for decreased pinprick in bilateral LE distal to mid-calf - folate 6.3, B12 532 - TSH 1.71 - HIV 1/2 nonreactive, hepatitis remote panel negative - STEFAN negative - ddx: peripheral neuropathy (nutritional, metabolic, medication side effect) vs cerebellar degeneration (prior EtOH use) - exam consistent with length dependent, small fiber nerve involvement most likely secondary to T2DM vs medications (immunosuppressants, sirolimus) PLAN: - Follow up peripheral neuropathy labs - PT/OT/PMR- acute rehab CKD (chronic kidney disease) stage 3, GFR 30-59 ml/min 06/19/2016 10/25/2020 Overview: Seeing Dr. Vipul Perez [facility] Prostate cancer screening 02/22/2016 Well adult exam 05/18/2014 10/19/2019 Overview: last done 08/24/2016 Thrombocytopenia 05/18/2014 10/19/2019 Last Assessment & Plan: Assessment: Platelet low since February 2019 per [facility] documentation No bleeding PLT 132-->106-->119-->114-->107-->124-->116-->110-->132 Plan: - Monitor Pl - Platelets stable and 132 at time of discharge Vertigo 05/18/2014 09/17/2023 Need for prophylactic immunotherapy 04/07/2014 10/19/2019 History of encephalopathy 02/06/2013 Overview: Secondary to cirrhosis. Currently alert, oriented x3, no signs of decompensated encephalopathy. Plan: - continue home regimen of lactulose, rifaximin and zinc Last Assessment & Plan: Assessment: hx secondary to cirrhosis Duodenal ulcer 02/06/2013 10/25/2020 Overview: Duodenal ulcers seen on EGD 01/31/13. Plan: Continue pantoprazole 40mg qday. Last Assessment & Plan: Assessment: h/o, no longer taking rx SUMMARY 01/13/2013 10/19/2019 Overview: Mr. 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 Mr. Sanon and his describe two normal bowel movements earlier in the day, and 3 episodes of blood in the stool since about 2 PM this afternoon. He describes the first episode as having fresh bright red blood larger in volume than several tablespoons which also mixed into the stool and toilet water. He had another episode earlier this evening, and a third episode upon admission to [facility] which was much less blood and mostly mixed into the stool. He denies hemoptysis, hematemesis, or other site of bleeding. Upon discharge 02/04/13 his hemoglobin was 8.6. In the ED tonight, Hgb is 8.4, Hct 24.4, plt 41. Ascites 01/13/2013 10/19/2019 Overview: Patient denies known history of SBP. Denies current abdominal tenderness, and no large volume ascites with need for paracentesis 02/06/2013. Plan: - ? Diuretics - will D/W nephrology Hyperbilirubinemia 01/13/2013 Overview: Arthritis 09/17/2023 Cataract of both eyes 2023 CRVO (central retinal vein occlusion) 09/17/2023 Overview: OD Tributary (branch) retinal v ein occlusion, left eye, with macular edema 09/17/2023 Overview: OS Hypertensive retinopathy Overview: mild Amblyopia of left eye 2023 Cirrhosis of liver Retinal edema 09/17/2023 documented as of this encounter (statuses as of 12/04/2023) [facility]02-03-2024 History of Past illness Narrative* Problem Noted Date Diagnosed Date Resolved Date Type 2 diabetes mellitus wit h hyperglycemia, without long-term current use of insulin 09/21/2023 10/26/2023 Last Assessment & Plan: Not on any medical management at home prior -> insulin initiated at [facility] current admission Diabetic education completed 09/25 Plan: - Cleve RODRIGUEZ - Endocrinology is following, appreciate recommendations Hyperosmolar hyperglycemic state (HHS) 09/17/2023 09/18/2023 Azotemia 09/17/2023 10/16/2023 Hyponatremia 09/17/2023 09/18/2023 Coronary artery disease due to lipid rich plaque 08/28/2023 09/17/2023 Last Assessment & Plan: Assessment: Recent complex staged PCI (last intervention 07/09/23 with stents - 4 of which are overlapping and 2 of them supplying the critical territory of the LAD) Patient on dual antiplatelet therapy with aspirin 81 mg and Plavix Of note, patient held Plavix for 5 days prior to liver biopsy on 08/20 (see elevated LFTs) Today, patient without cardiac complaints - reports feeling well overall Plan: - Cardiology consulted for recommendations regarding holding anti-platelet medication for possible biopsy or ERCP--> would be suboptimal given the above risk factors, would be high-risk for potentially fatal ST since he is still only 1.5 months out of his last PCI. - Re-start Plavix today - Continue to monitor - Continue aspirin 81 mg daily, atorvastatin, coreg, diltiazem Complication of liver transplant 08/27/2023 09/17/2023 S/P angioplasty with stent 08/06/2023 0 09/17/2023 Last Assessment & Plan: Assessment: on 06/05/2023- abnormal stress test and underwent a diagnostic LHC that showed severe stenosis in proximal to mid LAD, D1, dLCx, and pOM1. A staged PCI to the ostial to mid LAD with 2 overlapping stents and the mLAD to first diagonal 06/11/[address] Whitaker. A staged PCI on 07/09/2023 at [facility] by Dr. Whitaker, with PCI with stent placement to the ramus intermedius and OM2. On ASA 81mg (to be on indefinitely) and plavix for at least 12 months after stent placement. 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 Hyperkalemia 12/13/2021 12/18/2021 Last Assessment & Plan: Assessment: Improved, K+ is 4.9 on today's labs. Hyperkalemic trends with recent BMPs. PLAN: - Continuous tele monitoring ordered - Daily BMPs Ileus, postoperative 12/13/2021 022 Last Assessment & Plan: Assessment: POD3 ventral hernia repair with mesh. Now with bowel function. No nausea, vomiting. PLAN: - D/C NGT. - Advance to CLD - Continue to get OOB Ventral hernia, recurrent 12/12/2021 Thoracic aorta atherosclerosis 10/12/2021 09/17/2023 Last Assessment & Plan: Assessment: maximal dimension 4.0cm on echo 10/2019 Prostate disorder 05/18/2021 09/17/2023 Last Assessment & Plan: Assessment: no current tx Chronic lumbar pain 06/16/2020 09/17/19 Overview: Seeing Dr. Cedeno (12/2020) Last Assessment & Plan: Assessment: following pain management Dr. Cedeno Metabolic acidosis 11/25/2019 Medication management 05/18/20192019 Hyperkalemia 04/24/2019 10/25/2020 Last Assessment & Plan: K 5.2 at time of discharge, likely elevated in setting of NASIR on CKD Patient also stated that he was eating potatoes with every meal because that was what they were giving him He has had hyperkalemia in the past PLAN: - Switched to renal diet - Educated patient on what foods to avoid - Recheck BMP on Saturday at PCP follow up appointment for monitoring of K History of deep venous throm bosis (DVT) of distal vein of right lower extremity 04/06/2019 Overview: 02/2019: was to be on penitentiary anticoagulation. 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 Last Assessment & Plan: Assessment: h/o DVT 2018, +lupus anticoagulant positive, on daily ASA Transaminitis 03/25/2019 03/27/2019 Pain in left foot 02/20/2019 10/25/2020 Chronic pain of both ankles 12/13/2017 09/17/2023 Balance problem 06/19/2016 09/17/2023 Last Assessment & Plan: Assessment; POA, stable - Patient reports trouble with balance since his liver transplant - neurologic exam significant for decreased pinprick in bilateral LE distal to mid-calf - folate 6.3, B12 532 - TSH 1.71 - HIV 1/2 nonreactive, hepatitis remote panel negative - STEFAN negative - ddx: peripheral neuropathy (nutritional, metabolic, medication side effect) vs cerebellar degeneration (prior EtOH use) - exam consistent with length dependent, small fiber nerve involvement most likely secondary to T2DM vs medications (immunosuppressants, sirolimus) PLAN: - Follow up peripheral neuropathy labs - PT/OT/PMR- acute rehab CKD (chronic kidney disease) stage 3, GFR 30-59 ml/min 06/19/2016 10/25/2020 Overview: Seeing Dr. Vipul Perez [facility] Prostate cancer screening 02/22/2016 Well adult exam 05/18/2014 10/19/2019 Overview: last done 08/24/2016 Thrombocytopenia 05/18/2014 10/19/2019 Last Assessment & Plan: Assessment: Platelet low since February 2019 per [facility] documentation No bleeding PLT 132-->106-->119-->114-->107-->124-->116-->110-->132 Plan: - Monitor Pl - Platelets stable and 132 at time of discharge Vertigo 05/18/2014 09/17/2023 Need for prophylactic immunotherapy 04/07/2014 10/19/2019 History of encephalopathy 02/06/2013 Overview: Secondary to cirrhosis. Currently alert, oriented x3, no signs of decompensated encephalopathy. Plan: - continue home regimen of lactulose, rifaximin and zinc Last Assessment & Plan: Assessment: hx secondary to cirrhosis Duodenal ulcer 02/06/2013 10/25/2020 Overview: Duodenal ulcers seen on EGD 01/31/13. Plan: Continue pantoprazole 40mg qday. Last Assessment & Plan: Assessment: h/o, no longer taking rx SUMMARY 01/13/2013 10/19/2019 Overview: Mr. 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 Mr. Sanon and his describe two normal bowel movements earlier in the day, and 3 episodes of blood in the stool since about 2 PM this afternoon. He describes the first episode as having fresh bright red blood larger in volume than several tablespoons which also mixed into the stool and toilet water. He had another episode earlier this evening, and a third episode upon admission to [facility] which was much less blood and mostly mixed into the stool. He denies hemoptysis, hematemesis, or other site of bleeding. Upon discharge 02/04/13 his hemoglobin was 8.6. In the ED tonight, Hgb is 8.4, Hct 24.4, plt 41. Ascites 01/13/2013 10/19/2019 Overview: Patient denies known history of SBP. Denies current abdominal tenderness, and no large volume ascites with need for paracentesis 02/06/2013. Plan: - ? Diuretics - will D/W nephrology Hyperbilirubinemia 01/13/2013 Overview: Arthritis 09/17/2023 Cataract of both eyes 2023 CRVO (central retinal vein occlusion) 09/17/2023 Overview: OD Tributary (branch) retinal v ein occlusion, left eye, with macular edema 09/17/2023 Overview: OS Hypertensive retinopathy Overview: mild Amblyopia of left eye 2023 Cirrhosis of liver 1 Retinal edema 09/17/2023 documented as of this encounter (statuses as of 12/05/2023) [facility]02-03-2024 History of Past illness Narrative* Problem Noted Date Diagnosed Date Resolved Date Type 2 diabetes mellitus wit h hyperglycemia, without long-term current use of insulin 09/21/2023 10/26/2023 Last Assessment & Plan: Not on any medical management at home prior -> insulin initiated at [facility] current admission Diabetic education completed 09/25 Plan: - Cleve RODRIGUEZ - Endocrinology is following, appreciate recommendations Hyperosmolar hyperglycemic state (HHS) 09/17/2023 09/18/2023 Azotemia 09/17/2023 10/16/2023 Hyponatremia 09/17/2023 09/18/2023 Coronary artery disease due to lipid rich plaque 08/28/2023 09/17/2023 Last Assessment & Plan: Assessment: Recent complex staged PCI (last intervention 07/09/23 with stents - 4 of which are overlapping and 2 of them supplying the critical territory of the LAD) Patient on dual antiplatelet therapy with aspirin 81 mg and Plavix Of note, patient held Plavix for 5 days prior to liver biopsy on 08/20 (see elevated LFTs) Today, patient without cardiac complaints - reports feeling well overall Plan: - Cardiology consulted for recommendations regarding holding anti-platelet medication for possible biopsy or ERCP--> would be suboptimal given the above risk factors, would be high-risk for potentially fatal ST since he is still only 1.5 months out of his last PCI. - Re-start Plavix today - Continue to monitor - Continue aspirin 81 mg daily, atorvastatin, coreg, diltiazem Complication of liver transplant 08/27/2023 09/17/2023 S/P angioplasty with stent 08/06/2023 0 09/17/2023 Last Assessment & Plan: Assessment: on 06/05/2023- abnormal stress test and underwent a diagnostic LHC that showed severe stenosis in proximal to mid LAD, D1, dLCx, and pOM1. A staged PCI to the ostial to mid LAD with 2 overlapping stents and the mLAD to first diagonal 06/11/[address] Whitaker. A staged PCI on 07/09/2023 at [facility] by Dr. Whitaker, with PCI with stent placement to the ramus intermedius and OM2. On ASA 81mg (to be on indefinitely) and plavix for at least 12 months after stent placement. 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 Hyperkalemia 12/13/2021 12/18/2021 Last Assessment & Plan: Assessment: Improved, K+ is 4.9 on today's labs. Hyperkalemic trends with recent BMPs. PLAN: - Continuous tele monitoring ordered - Daily BMPs Ileus, postoperative 12/13/2021 022 Last Assessment & Plan: Assessment: POD3 ventral hernia repair with mesh. Now with bowel function. No nausea, vomiting. PLAN: - D/C NGT. - Advance to CLD - Continue to get OOB Ventral hernia, recurrent 12/12/2021 Thoracic aorta atherosclerosis 10/12/2021 09/17/2023 Last Assessment & Plan: Assessment: maximal dimension 4.0cm on echo 10/2019 Prostate disorder 05/18/2021 09/17/2023 Last Assessment & Plan: Assessment: no current tx Chronic lumbar pain 06/16/2020 09/17/19 24 Overview: Seeing Dr. Cedeno (12/2020) Last Assessment & Plan: Assessment: following pain management Dr. Cedeno Metabolic acidosis 11/25/2019 Medication management 05/18/20192019 Hyperkalemia 04/24/2019 10/25/2020 Last Assessment & Plan: K 5.2 at time of discharge, likely elevated in setting of NASIR on CKD Patient also stated that he was eating potatoes with every meal because that was what they were giving him He has had hyperkalemia in the past PLAN: - Switched to renal diet - Educated patient on what foods to avoid - Recheck BMP on Saturday at PCP follow up appointment for monitoring of K History of deep venous throm bosis (DVT) of distal vein of right lower extremity 04/06/2019 Overview: 02/2019: 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 Last Assessment & Plan: Assessment: h/o DVT 2018, +lupus anticoagulant positive, on daily ASA Transaminitis 03/25/2019 03/27/2019 Pain in left foot 02/20/2019 10/25/2020 Chronic pain of both ankles 12/13/2017 09/17/2023 Balance problem 06/19/2016 09/17/2023 Last Assessment & Plan: Assessment; POA, stable - Patient reports trouble with balance since his liver transplant - neurologic exam significant for decreased pinprick in bilateral LE distal to mid-calf - folate 6.3, B12 532 - TSH 1.71 - HIV 1/2 nonreactive, hepatitis remote panel negative - STEFAN negative - ddx: peripheral neuropathy (nutritional, metabolic, medication side effect) vs cerebellar degeneration (prior EtOH use) - exam consistent with length dependent, small fiber nerve involvement most likely secondary to T2DM vs medications (immunosuppressants, sirolimus) PLAN: - Follow up peripheral neuropathy labs - PT/OT/PMR- acute rehab CKD (chronic kidney disease) stage 3, GFR 30-59 ml/min 06/19/2016 10/25/2020 Overview: Seeing Dr. Vipul Perez [facility] Prostate cancer screening 02/22/2016 Well adult exam 05/18/2014 10/19/2019 Overview: last done 08/24/2016 Thrombocytopenia 05/18/2014 10/19/2019 Last Assessment & Plan: Assessment: Platelet low since February 2019 per [facility] documentation No bleeding PLT 132-->106-->119-->114-->107-->124-->116-->110-->132 Plan: - Monitor Pl - Platelets stable and 132 at time of discharge Vertigo 05/18/2014 09/17/2023 Need for prophylactic immunotherapy 04/07/2014 10/19/2019 History of encephalopathy 02/06/2013 Overview: Secondary to cirrhosis. Currently alert, oriented x3, no signs of decompensated encephalopathy. Plan: - continue home regimen of lactulose, rifaximin and zinc Last Assessment & Plan: Assessment: hx secondary to cirrhosis Duodenal ulcer 02/06/2013 10/25/2020 Overview: Duodenal ulcers seen on EGD 01/31/13. Plan: Continue pantoprazole 40mg qday. Last Assessment & Plan: Assessment: h/o, no longer taking rx SUMMARY 01/13/2013 10/19/2019 Overview: Mr. 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 Mr. Sanon and his describe two normal bowel movements earlier in the day, and 3 episodes of blood in the stool since about 2 PM this afternoon. He describes the first episode as having fresh bright red blood larger in volume than several tablespoons which also mixed into the stool and toilet water. He had another episode earlier this evening, and a third episode upon admission to [facility] which was much less blood and mostly mixed into the stool. He denies hemoptysis, hematemesis, or other site of bleeding. Upon discharge 02/04/13 his hemoglobin was 8.6. In the ED tonight, Hgb is 8.4, Hct 24.4, plt 41. Ascites 01/13/2013 10/19/2019 Overview: Patient denies known history of SBP. Denies current abdominal tenderness, and no large volume ascites with need for paracentesis 02/06/2013. Plan: - ? Diuretics - will D/W nephrology Hyperbilirubinemia 01/13/2013 Overview: Arthritis 09/17/2023 Cataract of both eyes 2023 CRVO (central retinal vein occlusion) 09/17/2023 Overview: OD Tributary (branch) retinal v ein occlusion, left eye, with macular edema 09/17/2023 Overview: OS Hypertensive retinopathy Overview: mild Amblyopia of left eye 2023 Cirrhosis of liver 1 Retinal edema 09/17/2023 documented as of this encounter (statuses as of 12/07/2023) [facility]02-02-2024 NoteHNO ID: [id number] Author: ANTONINA GUTIERREZ MD Service: Hospital Medicine Author Type: Physician Type: Progress Notes Filed: 09/20/2023 13:26 Note Text: DEPARTMENT OF HOSPITAL MEDICINE PROGRESS NOTE SERVICE DATE: 09/20/2023 SERVICE TIME: 1:22 PM Hospital Medicine/Primary Attending: Antonina Gutierrez MD NIGHT AND WEEKEND COVERAGE: PAHALA COVERAGE: Days: [phone], please page attending physician. Nights: [phone], please page [facility] Night coverage pager [phone]. Subjective INTERVAL HPI: still uptirating insulin inc to 10 units BID and 10U premeal today. Pending bed to main campus Nutrition and DM education consult. He has no complaints Daughter was update on phone, Amberly. She says she would like [facility] upon discharge but we discussed case management will help arrange that once he is discharged from here Hospital course: 78 year old male with a PMHx significant for HTN, HLD, CKD, CHF, ICH, CAD s/p PCI x6 stents (07/09/23), AAA, DM2 (A1C 6.3%), CKD stage 4, duodenal ulcer c/b GIB, GERD, lupus anticoagulant syndrome, DVT s/p IVF filter (2018), hyperparthyroidism, thombocytopenia and cirrhosis 2/2 ETOH abuse and hemochromatosis c/b hepatic encephalopathy/ascites, s/p liver transplant (2012). Of note, he was recently admitted to [facility] transplant service 08/27-08/30 for progressively increasing LFTs. He was suppose to have a liver biopsy and ERCP performed, but cardiology was uncomfortable holding the patient's dual antiplatlet therapy for the liver biopsy given his recent stent placements. During his hospitalization he required 1U PRBC, had his rapamune and prednisone increased, and losartan was added to his BP regimen. He was also recently seen in his PCP's office on 09/06 for an URI. He was diagnoised with Bronchitis and started on a course of cefadroxil. The patient presents today, 09/17/23 to the [facility] ED with complaints that his blood surgar has been elevated. Per pt, he had outpatient labs performed and his blood glucose was over 500, so he was advised to come to the ED for evaluation. Upon lab work, his glucose was found to be 788. He will be admitted to the ICU for further work-up and mangement of Hyperglycemia. Current Facility-Administered Medications Medication Dose Route Frequency dextrose 40 % 15 g 15 g ORAL PRN Or glucagon 1 mg injection 1 mg INTRAMUSCULAR PRN Or dextrose 10% iv bolus 12.5 g INTRAVENOUS PRN clopidogrel 75 mg tab(s) (PLAVIX) 75 mg ORAL DAILY [address]op[address]ole [address] 40 mg tab(s) (PROTONIX) 40 mg ORAL DAILY aspirin 81 mg chewable tab(s) 81 mg ORAL DAILY NaCl 0.9% iv flush bag 20 mL INTRAVENOUS PRN predniSONE 20 mg tab(s) (DELTASONE) 20 mg ORAL DAILY furosemide 40 mg tab(s) (LASIX) 40 mg ORAL DAILY sertraline 25 mg tab(s) (ZOLOFT) 25 mg ORAL DAILY atorvastatin 40 mg tab(s) (LIPITOR) 40 mg ORAL AT BEDTIME carvedilol 25 mg tab(s) (COREG) 25 mg ORAL BID heparin 5,000 Units injection 5,000 Units SUBCUTANEOUS q 12 H dilTIAZem CD 240 mg cap(s) (CARDIZEM CD, CARTIA XT) 240 mg ORAL DAILY tacrolimus IR 1 mg cap(s) (PROGRAF) 1 mg ORAL BID insulin glargine 10 Units pen (long acting) 10 Units SUBCUTANEOUS BID 8A/BEDTIME insulin lispro 10 Units injection (rapid acting) (ADMElog) 10 Units SUBCUTANEOUS w MEALS Objective PHYSICAL EXAM: BP 167/62 Pulse 73 Temp (Src) 98.2 (Oral) Resp 18 Ht 5' 7 (1.70m) Wt 207 lb 0.2 oz (93.9kg) SpO2 99% BMI 32.42 kg/(m2). Physical Exam Performed GENERAL: Alert, no distress, cooperative EYES: PERRLA, EOMI OROPHARYNX: Lips, mucosa, and tongue normal. Teeth and gums normal. Oropharynx normal. LUNGS: Lungs clear to auscultation, Good diaphragmatic excursion CARDIAC: Normal S1 and S2; no rubs, murmurs, or gallops ABDOMEN: Abdomen soft, non-tender, BS normal, No masses or organomegaly NEURO: Gait normal. Reflexes normal and symmetric. Sensation grossly intact, Cranial nerves II-XII intact Lines, Drains, and Airways Line Duration Peripheral 09/16/23 [id number] Right Forearm 18 Gauge 3 days Reviewed lines and needs to be continued: REASONS: DATA: Diagnostic tests reviewed for today's visit: Most recent labs Most recent imaging Assessment/Plan Problem List Immunosuppressive management encounter following liver transplant (HCC) (POA: Yes) Type 2 diabetes mellitus with stage 4 chronic kidney disease, with long-term current use of insulin (HCC) (POA: Yes) Chronic kidney disease (CKD), stage IV (severe) (HCC) (POA: Yes) Obesity, Class I, BMI 30-34.9 (POA: Yes) Acute on chronic anemia (POA: Yes) Thrombocytopenia (HCC) (POA: Yes) Coronary artery disease (POA: Yes) 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 (POA: Yes) Elevated LFTs (POA: Yes) Elevated brain natriuretic peptide (BNP) level (POA: Yes) HOSPITAL COURSE: Isaias Sanon is a 78 year old male with a PMHx significant for HTN, HLD, CKD, CHF, ICH, CAD s/p PCI x6 stents (07/09/23), AAA, DM2 (A (more content not included)...[id number] NoteHNO ID: [id number] Author: BRITTNEY ALVAREZ RN Service: Care Management Author Type: Registered Nurse Type: Care Mgt Progress Note Filed: 09/20/2023 10:53 Note Text: CARE MANAGEMENT PROGRESS NOTE SERVICE DATE: 09/20/2023 SERVICE TIME: 10:52 AM LOS: 3 days Needs Prior to Discharge: To Be Determined;Home Care Order;Other: See Comment (medical clearance) CM confirmed [facility] will accept on DC Will need F2F Per EMR review, patient waiting on bed transfer at [facility] CM will continue to follow for dc needs SIGNATURE: Brittney Alvarez RN PATIENT NAME: Isaias Sanon DATE: September 20, 2023 TIME: 10:52 AM PAGER/CONTACT #: [phone] [place], [place] [id number] NoteHNO ID: [id number] Author: ANTONINA GUTIERREZ MD Service: Hospital Medicine Author Type: Physician Type: Progress Notes Filed: 09/19/2023 12:42 Note Text: DEPARTMENT OF HOSPITAL MEDICINE PROGRESS NOTE SERVICE DATE: 09/19/2023 SERVICE TIME: 12:40 PM Hospital Medicine/Primary Attending: Antonina Gutierrez MD NIGHT AND WEEKEND COVERAGE: PAHALA COVERAGE: Days: [phone], please page attending physician. Nights: [phone], please page [facility] Night coverage pager [phone]. Subjective INTERVAL HPI: sugars are getting better controlled but some in 200s range. Titration per endocrine team. No new complaints today. No bed assigned yet for [facility] Hospital course: 78 year old male with a PMHx significant for HTN, HLD, CKD, CHF, ICH, CAD s/p PCI x6 stents (07/09/23), AAA, DM2 (A1C 6.3%), CKD stage 4, duodenal ulcer c/b GIB, GERD, lupus anticoagulant syndrome, DVT s/p IVF filter (2019), hyperparthyroidism, thombocytopenia and cirrhosis 2/2 ETOH abuse and hemochromatosis c/b hepatic encephalopathy/ascites, s/p liver transplant (2012). Of note, he was recently admitted to [facility] transplant service 08/27-08/30 for progressively increasing LFTs. He was suppose to have a liver biopsy and ERCP performed, but cardiology was uncomfortable holding the patient's dual antiplatlet therapy for the liver biopsy given his recent stent placements. During his hospitalization he required 1U PRBC, had his rapamune and prednisone increased, and losartan was added to his BP regimen. He was also recently seen in his PCP's office on 09/06 for an URI. He was diagnoised with Bronchitis and started on a course of cefadroxil. The patient presents today, 09/17/23 to the [facility] ED with complaints that his blood surgar has been elevated. Per pt, he had outpatient labs performed and his blood glucose was over 500, so he was advised to come to the ED for evaluation. Upon lab work, his glucose was found to be 788. He will be admitted to the ICU for further work-up and mangement of Hyperglycemia. Current Facility-Administered Medications Medication Dose Route Frequency dextrose 40 % 15 g 15 g ORAL PRN Or glucagon 1 mg injection 1 mg INTRAMUSCULAR PRN Or dextrose 10% iv bolus 12.5 g INTRAVENOUS PRN clopidogrel 75 mg tab(s) (PLAVIX) 75 mg ORAL DAILY pantoprazole DR 40 mg tab(s) (PROTONIX) 40 mg ORAL DAILY aspirin 81 mg chewable tab(s) 81 mg ORAL DAILY NaCl 0.9% iv flush bag 20 mL INTRAVENOUS PRN predniSONE 20 mg tab(s) (DELTASONE) 20 mg ORAL DAILY furosemide 40 mg tab(s) (LASIX) 40 mg ORAL DAILY sertraline 25 mg tab(s) (ZOLOFT) 25 mg ORAL DAILY atorvastatin 40 mg tab(s) (LIPITOR) 40 mg ORAL AT BEDTIME carvedilol 25 mg tab(s) (COREG) 25 mg ORAL BID heparin 5,000 Units injection 5,000 Units SUBCUTANEOUS q 12 H dilTIAZem CD 240 mg cap(s) (CARDIZEM CD, CARTIA XT) 240 mg ORAL DAILY tacrolimus IR 1 mg cap(s) (PROGRAF) 1 mg ORAL BID insulin glargine 8 Units pen (long acting) 8 Units SUBCUTANEOUS BID 8A/BEDTIME insulin lispro 8 Units injection (rapid acting) (ADMElog) 8 Units SUBCUTANEOUS w MEALS Darbepoetin Enrique In Polysorbat 200 mcg injection (ARANESP) 200 mcg SUBCUTANEOUS ONCE Objective PHYSICAL EXAM: BP 137/56 Pulse 67 Temp (Src) 97.5 (Axillary) Resp 20 Ht 5' 7 (1.70m) Wt 207 lb 0.2 oz (93.9kg) SpO2 99% BMI 32.42 kg/(m2). O2 Therapy: Room Air Physical Exam Performed GENERAL: Alert, no distress, cooperative EYES: PERRLA, EOMI OROPHARYNX: Lips, mucosa, and tongue normal. Teeth and gums normal. Oropharynx normal. LUNGS: Lungs clear to auscultation, Good diaphragmatic excursion CARDIAC: Normal S1 and S2; no rubs, murmurs, or gallops ABDOMEN: Abdomen soft, non-tender, BS normal, No masses or organomegaly NEURO: Gait normal. Reflexes normal and symmetric. Sensation grossly intact, Cranial nerves II-XII intact Lines, Drains, and Airways Line Duration Peripheral 09/16/23 23[facility] Right Forearm 18 Gauge 2 days Reviewed lines and needs to be continued: REASONS: DATA: Diagnostic tests reviewed for today's visit: Most recent labs Most recent imaging Assessment/Plan Problem List Immunosuppressive management encounter following liver transplant (HCC) (POA: Yes) Type 2 diabetes mellitus with stage 4 chronic kidney disease, with long-term current use of insulin (HCC) (POA: Yes) Chronic kidney disease (CKD), stage IV (severe) (HCC) (POA: Yes) Obesity, Class I, BMI 30-34.9 (POA: Yes) Acute on chronic anemia (POA: Yes) Thrombocytopenia (HCC) (POA: Yes) Coronary artery disease (POA: Yes) Current use of penitentiary anticoagulation (POA: Yes) Elevated LFTs (POA: Yes) Elevated brain natriuretic peptide (BNP) level (POA: Yes) HOSPITAL COURSE: Isaias Sanon is a 78 year old male with a PMHx significant for HTN, HLD, CKD, CHF, ICH, CAD s/p PCI x6 stents (07/09/23), AAA, DM2 (A1C 6.3%), CKD stage 4, duodenal ulcer c/b GIB, GERD, lupus anti (more content not included)...[facility] [id number] NoteHNO ID: [id number] Author: OLIVE BAUGH MD Service: Endocrinology Author Type: Physician Type: Plan of Care Filed: 09/19/2023 08:34 Note Text: Endocrinology Plan of Care Note Glucose levels trending lower Observe on current insulin doses [facility] NoteHNO ID: [id number] Author: ANTONINA GUTIERREZ MD Service: Hospital Medicine Author Type: Physician Type: Progress Notes Filed: 09/18/2023 13:13 Note Text: DEPARTMENT OF HOSPITAL MEDICINE PROGRESS NOTE SERVICE DATE: 09/18/2023 SERVICE TIME: 1:09 PM Hospital Medicine/Primary Attending: Antonina Gutierrez MD NIGHT AND WEEKEND COVERAGE: PAHALA COVERAGE: Days: [phone], please page attending physician. Nights: [phone], please page [facility] Night coverage pager [phone]. Subjective INTERVAL HPI: sugars in 300s yesterday, uptitrating insulin per endocrine Family would like transfer back to transplant service. Still NELL simmons, nephrology consulted Hospital course: 78 year old male with a PMHx significant for HTN, HLD, CKD, CHF, ICH, CAD s/p PCI x6 stents (07/09/23), AAA, DM2 (A1C 6.3%), CKD stage 4, duodenal ulcer c/b GIB, GERD, lupus anticoagulant syndrome, DVT s/p IVF filter (2018), hyperparthyroidism, thombocytopenia and cirrhosis 2/2 ETOH abuse and hemochromatosis c/b hepatic encephalopathy/ascites, s/p liver transplant (2012). Of note, he was recently admitted to [facility] transplant service 08/27-08/30 for progressively increasing LFTs. He was suppose to have a liver biopsy and ERCP performed, but cardiology was uncomfortable holding the patient's dual antiplatlet therapy for the liver biopsy given his recent stent placements. During his hospitalization he required 1U PRBC, had his rapamune and prednisone increased, and losartan was added to his BP regimen. He was also recently seen in his PCP's office on 09/06 for an URI. He was diagnoised with Bronchitis and started on a course of cefadroxil. The patient presents today, 09/17/23 to the [facility] with complaints that his blood surgar has been elevated. Per pt, he had outpatient labs performed and his blood glucose was over 500, so he was advised to come to the ED for evaluation. Upon lab work, his glucose was found to be 788. He will be admitted to the ICU for further work-up and mangement of Hyperglycemia. Current Facility-Administered Medications Medication Dose Route Frequency dextrose 40 % 15 g 15 g ORAL PRN Or glucagon 1 mg injection 1 mg INTRAMUSCULAR PRN Or dextrose 10% iv bolus 12.5 g INTRAVENOUS PRN clopidogrel 75 mg tab(s) (PLAVIX) 75 mg ORAL DAILY pantoprazole DR 40 mg tab(s) (PROTONIX) 40 mg ORAL DAILY aspirin 81 mg chewable tab(s) 81 mg ORAL DAILY NaCl 0.9% iv flush bag 20 mL INTRAVENOUS PRN predniSONE 20 mg tab(s) (DELTASONE) 20 mg ORAL DAILY furosemide 40 mg tab(s) (LASIX) 40 mg ORAL DAILY sertraline 25 mg tab(s) (ZOLOFT) 25 mg ORAL DAILY atorvastatin 40 mg tab(s) (LIPITOR) 40 mg ORAL AT BEDTIME carvedilol 25 mg tab(s) (COREG) 25 mg ORAL BID insulin lispro injection (rapid acting) (ADMElog) SUBCUTANEOUS w MEALS heparin 5,000 Units injection 5,000 Units SUBCUTANEOUS q 12 H [START ON 09/19/2023] dilTIAZem CD 240 mg cap(s) (CARDIZEM CD, CARTIA XT) 240 mg ORAL DAILY tacrolimus IR 1 mg cap(s) (PROGRAF) 1 mg ORAL BID insulin glargine 8 Units pen (long acting) 8 Units SUBCUTANEOUS BID 8A/BEDTIME insulin lispro 8 Units injection (rapid acting) (ADMElog) 8 Units SUBCUTANEOUS w MEALS Objective PHYSICAL EXAM: BP 141/69 Pulse 73 Temp (Src) 97.5 (Oral) Resp 16 Ht 5' 7 (1.70m) Wt 207 lb 0.2 oz (93.9kg) SpO2 95% BMI 32.42 kg/(m2). O2 Therapy: Room Air Physical Exam Performed GENERAL: Alert, no distress, cooperative EYES: PERRLA, EOMI OROPHARYNX: Lips, mucosa, and tongue normal. Teeth and gums normal. Oropharynx normal. LUNGS: Lungs clear to auscultation, Good diaphragmatic excursion CARDIAC: Normal S1 and S2; no rubs, murmurs, or gallops ABDOMEN: Abdomen soft, non-tender, BS normal, No masses or organomegaly NEURO: Gait normal. Reflexes normal and symmetric. Sensation grossly intact, Cranial nerves II-XII intact Lines, Drains, and Airways Line Duration Peripheral 09/16/23 23[facility] Right Forearm 18 Gauge 1 day Reviewed lines and needs to be continued: REASONS: DATA: Diagnostic tests reviewed for today's visit: Most recent labs Most recent imaging Assessment/Plan Problem List Immunosuppressive management encounter following liver transplant (HCC) (POA: Yes) Type 2 diabetes mellitus with stage 4 chronic kidney disease, with long-term current use of insulin (HCC) (POA: Yes) Chronic kidney disease (CKD), stage IV (severe) (HCC) (POA: Yes) Obesity, Class I, BMI 30-34.9 (POA: Yes) Acute on chronic anemia (POA: Yes) Thrombocytopenia (HCC) (POA: Yes) Coronary artery disease (POA: Yes) Current use of penitentiary anticoagulation (POA: Yes) Elevated LFTs (POA: Yes) Elevated brain natriuretic peptide (BNP) level (POA: Yes) HOSPITAL COURSE: Isaias Sanon is a 78 year old male with a PMHx significant for HTN, HLD, CKD, CHF, ICH, CAD s/p PCI x6 stents (07/09/23), AAA, DM2 (A1C 6.3%), CKD stage 4, duodenal ulcer c/b GIB, GERD, lupus antic (more content not included)...[facility] [id number] NoteHNO ID: [id number] Author: ANTONINA GUTIERREZ MD Service: Hospital Medicine Author Type: Physician Type: Progress Notes Filed: 09/17/2023 14:04 Note Text: DEPARTMENT OF HOSPITAL MEDICINE PROGRESS NOTE SERVICE DATE: 09/17/2023 SERVICE TIME: 1:47 PM Hospital Medicine/Primary Attending: Jonah Alaniz MD NIGHT AND WEEKEND COVERAGE: PAHALA COVERAGE: Days: [phone], please page attending physician. Nights: [phone], please page [facility] Night coverage pager [phone]. Subjective INTERVAL HPI: sugars are in 100s-200s, weaned off of insulin drip. Transf to floor. Endocrine startaed lantus 5U. lots LE swelling, dvt study [facility] Hospital course: 78 year old male with a PMHx significant for HTN, HLD, CKD, CHF, ICH, CAD s/p PCI x6 stents (07/09/23), AAA, DM2 (A1C 6.3%), CKD stage 4, duodenal ulcer c/b GIB, GERD, lupus anticoagulant syndrome, DVT s/p IVF filter (2018), hyperparthyroidism, thombocytopenia and cirrhosis 2/2 ETOH abuse and hemochromatosis c/b hepatic encephalopathy/ascites, s/p liver transplant (2012). Of note, he was recently admitted to [facility] transplant service 08/27-08/30 for progressively increasing LFTs. He was suppose to have a liver biopsy and ERCP performed, but cardiology was uncomfortable holding the patient's dual antiplatlet therapy for the liver biopsy given his recent stent placements. During his hospitalization he required 1U PRBC, had his rapamune and prednisone increased, and losartan was added to his BP regimen. He was also recently seen in his PCP's office on 09/06 for an URI. He was diagnoised with Bronchitis and started on a course of cefadroxil. The patient presents today, 09/17/23 to the [facility] ED with complaints that his blood surgar has been elevated. Per pt, he had outpatient labs performed and his blood glucose was over 500, so he was advised to come to the ED for evaluation. Upon lab work, his glucose was found to be 788. He will be admitted to the ICU for further work-up and mangement of Hyperglycemia. Current Facility-Administered Medications Medication Dose Route Frequency dextrose 40 % 15 g 15 g ORAL PRN Or glucagon 1 mg injection 1 mg INTRAMUSCULAR PRN Or dextrose 10% iv bolus 12.5 g INTRAVENOUS PRN clopidogrel 75 mg tab(s) (PLAVIX) 75 mg ORAL DAILY pantoprazole DR 40 mg tab(s) (PROTONIX) 40 mg ORAL DAILY aspirin 81 mg chewable tab(s) 81 mg ORAL DAILY NaCl 0.9% iv flush bag 20 mL INTRAVENOUS PRN dilTIAZem CD 240 mg cap(s) (CARDIZEM CD, CARTIA XT) 240 mg ORAL DAILY predniSONE 20 mg tab(s) (DELTASONE) 20 mg ORAL DAILY furosemide 40 mg tab(s) (LASIX) 40 mg ORAL DAILY sertraline 25 mg tab(s) (ZOLOFT) 25 mg ORAL DAILY atorvastatin 40 mg tab(s) (LIPITOR) 40 mg ORAL AT BEDTIME carvedilol 25 mg tab(s) (COREG) 25 mg ORAL BID tacrolimus IR 1 mg cap(s) (PROGRAF) 1 mg ORAL BID insulin lispro injection (rapid acting) (ADMElog) SUBCUTANEOUS w MEALS heparin 5,000 Units injection 5,000 Units SUBCUTANEOUS q 12 H insulin glargine 5 Units pen (long acting) 5 Units SUBCUTANEOUS DAILY (8 AM) Objective PHYSICAL EXAM: BP 127/60 Pulse 68 Temp (Src) 97.8 (Oral) Resp 19 Ht 5' 7 (1.70m) Wt 207 lb 0.2 oz (93.9kg) SpO2 97% BMI 32.42 kg/(m2). O2 Therapy: Room Air Physical Exam Performed GENERAL: Alert, no distress, cooperative EYES: PERRLA, EOMI OROPHARYNX: Lips, mucosa, and tongue normal. Teeth and gums normal. Oropharynx normal. LUNGS: Lungs clear to auscultation, Good diaphragmatic excursion CARDIAC: Normal S1 and S2; no rubs, murmurs, or gallops ABDOMEN: Abdomen soft, non-tender, BS normal, No masses or organomegaly NEURO: Gait normal. Reflexes normal and symmetric. Sensation grossly intact, Cranial nerves II-XII intact Lines, Drains, and Airways Line Duration Peripheral 09/16/23 2312 [facility] Right Forearm 18 Gauge <1 day Peripheral 09/17/23 0059 [facility] Left Antecubital 18 Gauge <1 day Reviewed lines and needs to be continued: REASONS: DATA: Diagnostic tests reviewed for today's visit: Most recent labs Most recent imaging Assessment/Plan Problem List Hyperosmolar hyperglycemic state (HHS) (HCC) (POA: Yes) Type 2 diabetes mellitus with stage 3b chronic kidney disease, without long-term current use of insulin (HCC) (POA: Yes) Chronic kidney disease (CKD), stage IV (severe) (HCC) (POA: Yes) Obesity, Class I, BMI 30-34.9 (POA: Yes) Acute on chronic anemia (POA: Yes) Thrombocytopenia (HCC) (POA: Yes) Coronary artery disease (POA: Yes) Immunosuppressive management encounter following liver transplant (HCC) (POA: Yes) 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 (POA: Yes) S/P liver transplant (HCC) (POA: Yes) Elevated LFTs (POA: Yes) Elevated brain natriuretic peptide (BNP) level (POA: Yes) Hyponatremia (POA: Yes) Immunocompromised state (HCC) (POA: Status not on file) HOSPITAL COURSE: Isaias Sanon is a 78 year old male with a PMHx si (more content not included)...[facility] [id number] NoteHNO ID: [id number] Author: BRYANNA CASTRO RN Service: Care Management Author Type: Registered Nurse Type: Care Mgt Initial Assessment Filed: 09/17/2023 13:25 Note Text: CARE MANAGEMENT: ASSESSMENT AND DISCHARGE PLAN SERVICE DATE: September 17, 2023 SERVICE TIME: 13:00 PCP: Sanju Banerjee MD Primary Contact: Extended Emergency Contact Information Primary Emergency Contact: Brittani Sanon Address: [address] [place] [address] Mobile Relation: Spouse Secondary Emergency Contact: MINE RESTREPO Mobile Relation: Daughter Admission Status: Inpatient Insurance Provider: [facility] [place] Discharge Planning requested by: Per Department Practice Potential Transition Plans Home;Home Care;Home OT/PT Advance Directives Current Advance Directive: Health Care Power of Assembly Member;Living Will In Chart: No Current Living Arrangements and Support Lives with: Spouse/significant other Type of Residence: Private Residence (House) Does the patient have to climb stairs at home?: stairs outside the home;stairs within the home (Split level home- 6 steps to B/B) Support: Spouse/significant other, Children, Family members How do you manage to accomplish the following: Needs Assistance: Ambulation;Bathe/Shower;Dress;Meals/Meal Prep;Going to the bathroom;Medication Management;Transportation to appointments/community Current Services/Equipment Current Post-Acute Service(s): DME Current DME Type: Wheelchair-manual, Walker, Bedside commode, Elevated toilet seat, Shower seat, Grab bars,glucometer Discharge Planning Patient Goal(s): Be able to go home, General wellness [place] Explained: [place] Given: Yes Level of Care Discussed: Home Care Are you interested in bedside delivery of your medications? No Discharge Planning Participant(s): Patient;Spouse/significant other Patient/Family Comments: Return home with spouse Caregiver Assessment: Caregiver is ready, willing and able to meet the patient's needs as recommended by the inter-professional team: Yes Name of Caregiver: Spouse Brittani and [facility] Transport at Discharge: Transportation Arrangements: Car Destination: Pt's home Needs Prior to Discharge: Needs Prior to Discharge: To Be Determined;OT/PT Evaluation;Facility or Agency Choices;Accepting Facility;Discharge Transportation;Discharge Prescriptions;Insurance Authorization Post-Acute Discharge Plan: EMR reviewed. Met with pt and spouse at bedside to complete IA. Spouse reports pt was completely independent with ADL's prior to hospitalization in 08/10 for increasing LFT's with an ERCP, s/p liver transplant in 2012. Spouse states pt has needed more assistance and she would like a choice list for [employer]. to follow. Awaiting PT/OT evals. Spouse to transport pt home at NH. SIGNATURE: Bryanna Castro RN PATIENT NAME: Isaias Sanon DATE: September 17, 2023 TIME: 1:19 PM CONTACT #: [id number] History of Past illness Narrative* Problem Noted Date Diagnosed Date Resolved Date Hyperosmolar hyperglycemic state (HHS) 09/17/2023 09/18/2023 Hyponatremia 09/17/2023 09/18/2023 Coronary artery disease due to lipid rich plaque 08/28/2023 09/17/2023 Last Assessment & Plan: Assessment: Recent complex staged PCI (last intervention 07/09/23 with stents - 4 of which are overlapping and 2 of them supplying the critical territory of the LAD) Patient on dual antiplatelet therapy with aspirin 81 mg and Plavix Of note, patient held Plavix for 5 days prior to liver biopsy on 08/20 (see elevated LFTs) Today, patient without cardiac complaints - reports feeling well overall Plan: - Cardiology consulted for recommendations regarding holding anti-platelet medication for possible biopsy or ERCP--> would be suboptimal given the above risk factors, would be high-risk for potentially fatal ST since he is still only 1.5 months out of his last PCI. - Re-start Plavix today - Continue to monitor - Continue aspirin 81 mg daily, atorvastatin, coreg, diltiazem Complication of liver transplant 08/27/2023 09/17/2023 S/P angioplasty with stent 08/06/2023 0 09/17/2023 Last Assessment & Plan: Assessment: on 06/05/2023- abnormal stress test and underwent a diagnostic LHC that showed severe stenosis in proximal to mid LAD, D1, dLCx, and pOM1. A staged PCI to the ostial to mid LAD with 2 overlapping stents and the mLAD to first diagonal 06/11/[address] Whitaker. A staged PCI on 07/09/2023 at [facility] by Dr. Whitaker, with PCI with stent placement to the ramus intermedius and OM2. On ASA 81mg (to be on indefinitely) and plavix for at least 12 months after stent placement. 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 Hyperkalemia 12/13/2021 12/18/2021 Last Assessment & Plan: Assessment: Improved, K+ is 4.9 on today's labs. Hyperkalemic trends with recent BMPs. PLAN: - Continuous tele monitoring ordered - Daily BMPs Ileus, postoperative 12/13/2021 022 Last Assessment & Plan: Assessment: POD3 ventral hernia repair with mesh. Now with bowel function. No nausea, vomiting. PLAN: - D/C NGT. - Advance to CLD - Continue to get OOB Ventral hernia, recurrent 12/12/2021 Thoracic aorta atherosclerosis 10/12/2021 09/17/2023 Last Assessment & Plan: Assessment: maximal dimension 4.0cm on echo 10/2019 Prostate disorder 05/18/2021 09/17/2023 Last Assessment & Plan: Assessment: no current tx Chronic lumbar pain 06/16/2020 09/17/19 Overview: Seeing Dr. Cedeno (12/2020) Last Assessment & Plan: Assessment: following pain management Dr. 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 Last Assessment & Plan: Assessment: h/o DVT 2018, +lupus anticoagulant positive, on daily ASA Transaminitis 03/25/2019 03/27/2019 Pain in left foot 02/20/2019 10/25/2020 Chronic pain of both ankles 12/13/2017 09/17/2023 Balance problem 06/19/2016 09/17/2023 Last Assessment & Plan: Assessment; POA, stable - Patient reports trouble with balance since his liver transplant - neurologic exam significant for decreased pinprick in bilateral LE distal to mid-calf - folate 6.3, B12 532 - TSH 1.71 - HIV 1/2 nonreactive, hepatitis remote panel negative - STEFAN negative - ddx: peripheral neuropathy (nutritional, metabolic, medication side effect) vs cerebellar degeneration (prior EtOH use) - exam consistent with length dependent, small fiber nerve involvement most likely secondary to T2DM vs medications (immunosuppressants, sirolimus) PLAN: - Follow up peripheral neuropathy labs - PT/OT/PMR- acute rehab CKD (chronic kidney disease) stage 3, GFR 30-59 ml/min 06/19/2016 10/25/2020 Overview: Seeing Dr. Vipul Perez [facility] Prostate cancer screening 02/22/2016 Well adult exam 05/18/2014 10/19/2019 Overview: last done 08/24/2016 Thrombocytopenia 05/18/2014 10/19/2019 Last Assessment & Plan: Assessment: Platelet low since February 2019 per [facility] documentation No bleeding PLT 132-->106-->119-->114-->107-->124-->116-->110-->132 Plan: - Monitor Pl - Platelets stable and 132 at time of discharge Vertigo 05/18/2014 09/17/2023 Need for prophylactic immunotherapy 04/07/2014 10/19/2019 History of encephalopathy 02/06/2013 Overview: Secondary to cirrhosis. Currently alert, oriented x3, no signs of decompensated encephalopathy. Plan: - continue home regimen of lactulose, rifaximin and zinc Last Assessment & Plan: Assessment: hx secondary to cirrhosis Duodenal ulcer 02/06/2013 10/25/2020 Overview: Duodenal ulcers seen on EGD 01/31/13. Plan: Continue pantoprazole 40mg qday. Last Assessment & Plan: Assessment: h/o, no longer taking rx SUMMARY 01/13/2013 10/19/2019 Overview: Mr. 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 Mr. Sanon and his describe two normal bowel movements earlier in the day, and 3 episodes of blood in the stool since about 2 PM this afternoon. He describes the first episode as having fresh bright red blood larger in volume than several tablespoons which also mixed into the stool and toilet water. He had another episode earlier this evening, and a third episode upon admission to [facility] which was much less blood and mostly mixed into the stool. He denies hemoptysis, hematemesis, or other site of bleeding. Upon discharge 02/04/13 his hemoglobin was 8.6. In the ED tonight, Hgb is 8.4, Hct 24.4, plt 41. Ascites 01/13/2013 10/19/2019 Overview: Patient denies known history of SBP. Denies current abdominal tenderness, and no large volume ascites with need for paracentesis 02/06/2013. Plan: - ? Diuretics - will D/W nephrology Hyperbilirubinemia 01/13/2013 Overview: Arthritis 09/17/2023 Cataract of both eyes 2023 CRVO (central retinal vein occlusion) 09/17/2023 Overview: OD Tributary (branch) retinal v ein occlusion, left eye, with macular edema 09/17/2023 Overview: OS Hypertensive retinopathy Overview: mild Amblyopia of left eye 2023 Cirrhosis of liver 1 Retinal edema 09/17/2023 documented as of this encounter (statuses as of 09/20/2023) [facility]01-30-2024 History of Past illness Narrative* Problem Noted Date Diagnosed Date Resolved Date Hyperosmolar hyperglycemic state (HHS) 09/17/2023 09/18/2023 Hyponatremia 09/17/2023 09/18/2023 Coronary artery disease due to lipid rich plaque 08/28/2023 09/17/2023 Last Assessment & Plan: Assessment: Recent complex staged PCI (last intervention 07/09/23 with stents - 4 of which are overlapping and 2 of them supplying the critical territory of the LAD) Patient on dual antiplatelet therapy with aspirin 81 mg and Plavix Of note, patient held Plavix for 5 days prior to liver biopsy on 08/20 (see elevated LFTs) Today, patient without cardiac complaints - reports feeling well overall Plan: - Cardiology consulted for recommendations regarding holding anti-platelet medication for possible biopsy or ERCP--> would be suboptimal given the above risk factors, would be high-risk for potentially fatal ST since he is still only 1.5 months out of his last PCI. - Re-start Plavix today - Continue to monitor - Continue aspirin 81 mg daily, atorvastatin, coreg, diltiazem Complication of liver transplant 08/27/2023 09/17/2023 S/P angioplasty with stent 08/06/2023 0 09/17/2023 Last Assessment & Plan: Assessment: on 06/05/2023- abnormal stress test and underwent a diagnostic LHC that showed severe stenosis in proximal to mid LAD, D1, dLCx, and pOM1. A staged PCI to the ostial to mid LAD with 2 overlapping stents and the mLAD to first diagonal 06/11/[address] Whitaker. A staged PCI on 07/09/2023 at [facility] by Dr. Whitaker, with PCI with stent placement to the ramus intermedius and OM2. On ASA 81mg (to be on indefinitely) and plavix for at least 12 months after stent placement. 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 Hyperkalemia 12/13/2021 12/18/2021 Last Assessment & Plan: Assessment: Improved, K+ is 4.9 on today's labs. Hyperkalemic trends with recent BMPs. PLAN: - Continuous tele monitoring ordered - Daily BMPs Ileus, postoperative 12/13/2021 022 Last Assessment & Plan: Assessment: POD3 ventral hernia repair with mesh. Now with bowel function. No nausea, vomiting. PLAN: - D/C NGT. - Advance to CLD - Continue to get OOB Ventral hernia, recurrent 12/12/2021 Thoracic aorta atherosclerosis 10/12/2021 09/17/2023 Last Assessment & Plan: Assessment: maximal dimension 4.0cm on echo 10/2019 Prostate disorder 05/18/2021 09/17/2023 Last Assessment & Plan: Assessment: no current tx Chronic lumbar pain 06/16/2020 09/17/19 24 Overview: Seeing Dr. Cedeno (12/2020) Last Assessment & Plan: Assessment: following pain management Dr. Cedeno Bilateral leg edema 01/22/2020 09/17/19 24 Metabolic acidosis 11/25/2019 Medication management 05/18/20192019 Hyperkalemia 04/24/2019 10/25/2020 Last Assessment & Plan: K 5.2 at time of discharge, likely elevated in setting of NASIR on CKD Patient also stated that he was eating potatoes with every meal because that was what they were giving him He has had hyperkalemia in the past PLAN: - Switched to renal diet - Educated patient on what foods to avoid - Recheck BMP on Saturday at PCP follow up appointment for monitoring of K History of deep venous throm bosis (DVT) of distal vein of right lower extremity 04/06/2019 Overview: 02/2019: was to be on penitentiary anticoagulation. 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 Last Assessment & Plan: Assessment: h/o DVT 2018, +lupus anticoagulant positive, on daily ASA Transaminitis 03/25/2019 03/27/2019 Pain in left foot 02/20/2019 10/25/2020 Chronic pain of both ankles 12/13/2017 09/17/2023 Balance problem 06/19/2016 09/17/2023 Last Assessment & Plan: Assessment; POA, stable - Patient reports trouble with balance since his liver transplant - neurologic exam significant for decreased pinprick in bilateral LE distal to mid-calf - folate 6.3, B12 532 - TSH 1.71 - HIV 1/2 nonreactive, hepatitis remote panel negative - STEFAN negative - ddx: peripheral neuropathy (nutritional, metabolic, medication side effect) vs cerebellar degeneration (prior EtOH use) - exam consistent with length dependent, small fiber nerve involvement most likely secondary to T2DM vs medications (immunosuppressants, sirolimus) PLAN: - Follow up peripheral neuropathy labs - PT/OT/PMR- acute rehab CKD (chronic kidney disease) stage 3, GFR 30-59 ml/min 06/19/2016 10/25/2020 Overview: Seeing Dr. Vipul Perez [facility] Prostate cancer screening 02/22/2016 Well adult exam 05/18/2014 10/19/2019 Overview: last done 08/24/2016 Thrombocytopenia 05/18/2014 10/19/2019 Last Assessment & Plan: Assessment: Platelet low since February 2019 per [facility] documentation No bleeding PLT 132-->106-->119-->114-->107-->124-->116-->110-->132 Plan: - Monitor Pl - Platelets stable and 132 at time of discharge Vertigo 05/18/2014 09/17/2023 Need for prophylactic immunotherapy 04/07/2014 10/19/2019 History of encephalopathy 02/06/2013 Overview: Secondary to cirrhosis. Currently alert, oriented x3, no signs of decompensated encephalopathy. Plan: - continue home regimen of lactulose, rifaximin and zinc Last Assessment & Plan: Assessment: hx secondary to cirrhosis Duodenal ulcer 02/06/2013 10/25/2020 Overview: Duodenal ulcers seen on EGD 01/31/13. Plan: Continue pantoprazole 40mg qday. Last Assessment & Plan: Assessment: h/o, no longer taking rx SUMMARY 01/13/2013 10/19/2019 Overview: Mr. 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 Mr. Sanon and his describe two normal bowel movements earlier in the day, and 3 episodes of blood in the stool since about 2 PM this afternoon. He describes the first episode as having fresh bright red blood larger in volume than several tablespoons which also mixed into the stool and toilet water. He had another episode earlier this evening, and a third episode upon admission to [facility] which was much less blood and mostly mixed into the stool. He denies hemoptysis, hematemesis, or other site of bleeding. Upon discharge 02/04/13 his hemoglobin was 8.6. In the ED tonight, Hgb is 8.4, Hct 24.4, plt 41. Ascites 01/13/2013 10/19/2019 Overview: Patient denies known history of SBP. Denies current abdominal tenderness, and no large volume ascites with need for paracentesis 02/06/2013. Plan: - ? Diuretics - will D/W nephrology Hyperbilirubinemia 01/13/2013 Overview: Arthritis 09/17/2023 Cataract of both eyes 2023 CRVO (central retinal vein occlusion) 09/17/2023 Overview: OD Tributary (branch) retinal v ein occlusion, left eye, with macular edema 09/17/2023 Overview: OS Hypertensive retinopathy Overview: mild Amblyopia of left eye 2023 Cirrhosis of liver 1 Retinal edema 09/17/2023 documented as of this encounter (statuses as of 09/27/2023) [facility]01-30-2024 History of Past illness Narrative* Problem Noted Date Diagnosed Date Resolved Date Hyperosmolar hyperglycemic state (HHS) 09/17/2023 09/18/2023 Hyponatremia 09/17/2023 09/18/2023 Coronary artery disease due to lipid rich plaque 08/28/2023 09/17/2023 Last Assessment & Plan: Assessment: Recent complex staged PCI (last intervention 07/09/23 with stents - 4 of which are overlapping and 2 of them supplying the critical territory of the LAD) Patient on dual antiplatelet therapy with aspirin 81 mg and Plavix Of note, patient held Plavix for 5 days prior to liver biopsy on 08/20 (see elevated LFTs) Today, patient without cardiac complaints - reports feeling well overall Plan: - Cardiology consulted for recommendations regarding holding anti-platelet medication for possible biopsy or ERCP--> would be suboptimal given the above risk factors, would be high-risk for potentially fatal ST since he is still only 1.5 months out of his last PCI. - Re-start Plavix today - Continue to monitor - Continue aspirin 81 mg daily, atorvastatin, coreg, diltiazem Complication of liver transplant 08/27/2023 09/17/2023 S/P angioplasty with stent 08/06/2023 0 09/17/2023 Last Assessment & Plan: Assessment: on 06/05/2023- abnormal stress test and underwent a diagnostic LHC that showed severe stenosis in proximal to mid LAD, D1, dLCx, and pOM1. A staged PCI to the ostial to mid LAD with 2 overlapping stents and the mLAD to first diagonal 06/11/[address] Whitaker. A staged PCI on 07/09/2023 at [facility] by Dr. Whitaker, with PCI with stent placement to the ramus intermedius and OM2. On ASA 81mg (to be on indefinitely) and plavix for at least 12 months after stent placement. 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 Hyperkalemia 12/13/2021 12/18/2021 Last Assessment & Plan: Assessment: Improved, K+ is 4.9 on today's labs. Hyperkalemic trends with recent BMPs. PLAN: - Continuous tele monitoring ordered - Daily BMPs Ileus, postoperative 12/13/2021 022 Last Assessment & Plan: Assessment: POD3 ventral hernia repair with mesh. Now with bowel function. No nausea, vomiting. PLAN: - D/C NGT. - Advance to CLD - Continue to get OOB Ventral hernia, recurrent 12/12/2021 Thoracic aorta atherosclerosis 10/12/2021 09/17/2023 Last Assessment & Plan: Assessment: maximal dimension 4.0cm on echo 10/2019 Prostate disorder 05/18/2021 09/17/2023 Last Assessment & Plan: Assessment: no current tx Chronic lumbar pain 06/16/2020 09/17/19 24 Overview: Seeing Dr. Cedeno (12/2020) Last Assessment & Plan: Assessment: following pain management Dr. Cedeno Bilateral leg edema 01/22/2020 09/17/19 24 Metabolic acidosis 11/25/2019 1 Medication management 05/18/20192019 Hyperkalemia 04/24/2019 10/25/2020 Last Assessment & Plan: K 5.2 at time of discharge, likely elevated in setting of NASIR on CKD Patient also stated that he was eating potatoes with every meal because that was what they were giving him He has had hyperkalemia in the past PLAN: - Switched to renal diet - Educated patient on what foods to avoid - Recheck BMP on Saturday at PCP follow up appointment for monitoring of K History of deep venous throm bosis (DVT) of distal vein of right lower extremity 04/06/2019 Overview: 02/2019: was to be on [facility]iary anticoagulation. 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 Last Assessment & Plan: Assessment: h/o DVT 2018, +lupus anticoagulant positive, on daily ASA Transaminitis 03/25/2019 03/27/2019 Pain in left foot 02/20/2019 10/25/2020 Chronic pain of both ankles 12/13/2017 09/17/2023 Balance problem 06/19/2016 09/17/2023 Last Assessment & Plan: Assessment; POA, stable - Patient reports trouble with balance since his liver transplant - neurologic exam significant for decreased pinprick in bilateral LE distal to mid-calf - folate 6.3, B12 532 - TSH 1.71 - HIV 1/2 nonreactive, hepatitis remote panel negative - STEFAN negative - ddx: peripheral neuropathy (nutritional, metabolic, medication side effect) vs cerebellar degeneration (prior EtOH use) - exam consistent with length dependent, small fiber nerve involvement most likely secondary to T2DM vs medications (immunosuppressants, sirolimus) PLAN: - Follow up peripheral neuropathy labs - PT/OT/PMR- acute rehab CKD (chronic kidney disease) stage 3, GFR 30-59 ml/min 06/19/2016 10/25/2020 Overview: Seeing Dr. Vipul Perez [facility] Prostate cancer screening 02/22/2016 Well adult exam 05/18/2014 10/19/2019 Overview: last done 08/24/2016 Thrombocytopenia 05/18/2014 10/19/2019 Last Assessment & Plan: Assessment: Platelet low since February 2019 per Epic documentation No bleeding PLT 132-->106-->119-->114-->107-->124-->116-->110-->132 Plan: - Monitor Pl - Platelets stable and 132 at time of discharge Vertigo 05/18/2014 09/17/2023 Need for prophylactic immunotherapy 04/07/2014 10/19/2019 History of encephalopathy 02/06/2013 Overview: Secondary to cirrhosis. Currently alert, oriented x3, no signs of decompensated encephalopathy. Plan: - continue home regimen of lactulose, rifaximin and zinc Last Assessment & Plan: Assessment: hx secondary to cirrhosis Duodenal ulcer 02/06/2013 10/25/2020 Overview: Duodenal ulcers seen on EGD 01/31/13. Plan: Continue pantoprazole 40mg qday. Last Assessment & Plan: Assessment: h/o, no longer taking rx SUMMARY 01/13/2013 10/19/2019 Overview: Mr. 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 Mr. Sanon and his describe two normal bowel movements earlier in the day, and 3 episodes of blood in the stool since about 2 PM this afternoon. He describes the first episode as having fresh bright red blood larger in volume than several tablespoons which also mixed into the stool and toilet water. He had another episode earlier this evening, and a third episode upon admission to [facility] which was much less blood and mostly mixed into the stool. He denies hemoptysis, hematemesis, or other site of bleeding. Upon discharge 02/04/13 his hemoglobin was 8.6. In the ED tonight, Hgb is 8.4, Hct 24.4, plt 41. Ascites 01/13/2013 10/19/2019 Overview: Patient denies known history of SBP. Denies current abdominal tenderness, and no large volume ascites with need for paracentesis 02/06/2013. Plan: - ? Diuretics - will D/W nephrology Hyperbilirubinemia 01/13/2013 Overview: Arthritis 09/17/2023 Cataract of both eyes 2023 CRVO (central retinal vein occlusion) 09/17/2023 Overview: OD Tributary (branch) retinal v ein occlusion, left eye, with macular edema 09/17/2023 Overview: OS Hypertensive retinopathy Overview: mild Amblyopia of left eye 2023 Cirrhosis of liver Retinal edema 09/17/2023 documented as of this encounter (statuses as of 09/28/2023) [facility]01-30-2024 History of Past illness Narrative* Problem Noted Date Diagnosed Date Resolved Date Hyperosmolar hyperglycemic state (HHS) 09/17/2023 09/18/2023 Hyponatremia 09/17/2023 09/18/2023 Coronary artery disease due to lipid rich plaque 08/28/2023 09/17/2023 Last Assessment & Plan: Assessment: Recent complex staged PCI (last intervention 07/09/23 with stents - 4 of which are overlapping and 2 of them supplying the critical territory of the LAD) Patient on dual antiplatelet therapy with aspirin 81 mg and Plavix Of note, patient held Plavix for 5 days prior to liver biopsy on 08/20 (see elevated LFTs) Today, patient without cardiac complaints - reports feeling well overall Plan: - Cardiology consulted for recommendations regarding holding anti-platelet medication for possible biopsy or ERCP--> would be suboptimal given the above risk factors, would be high-risk for potentially fatal ST since he is still only 1.5 months out of his last PCI. - Re-start Plavix today - Continue to monitor - Continue aspirin 81 mg daily, atorvastatin, coreg, diltiazem Complication of liver transplant 08/27/2023 09/17/2023 S/P angioplasty with stent 08/06/2023 0 09/17/2023 Last Assessment & Plan: Assessment: on 06/05/2023- abnormal stress test and underwent a diagnostic LHC that showed severe stenosis in proximal to mid LAD, D1, dLCx, and pOM1. A staged PCI to the ostial to mid LAD with 2 overlapping stents and the mLAD to first diagonal 06/11/[address] Whitaker. A staged PCI on 07/09/2023 at [facility] by Dr. Whitaker, with PCI with stent placement to the ramus intermedius and OM2. On ASA 81mg (to be on indefinitely) and plavix for at least 12 months after stent placement. 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 Hyperkalemia 12/13/2021 12/18/2021 Last Assessment & Plan: Assessment: Improved, K+ is 4.9 on today's labs. Hyperkalemic trends with recent BMPs. PLAN: - Continuous tele monitoring ordered - Daily BMPs Ileus, postoperative 12/13/2021 022 Last Assessment & Plan: Assessment: POD3 ventral hernia repair with mesh. Now with bowel function. No nausea, vomiting. PLAN: - D/C NGT. - Advance to CLD - Continue to get OOB Ventral hernia, recurrent 12/12/2021 Thoracic aorta atherosclerosis 10/12/2021 09/17/2023 Last Assessment & Plan: Assessment: maximal dimension 4.0cm on echo 10/2019 Prostate disorder 05/18/2021 09/17/2023 Last Assessment & Plan: Assessment: no current tx Chronic lumbar pain 06/16/2020 09/17/19 24 Overview: Seeing Dr. Cedeno (12/2020) Last Assessment & Plan: Assessment: following pain management Dr. 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 Last Assessment & Plan: Assessment: h/o DVT 2018, +lupus anticoagulant positive, on daily ASA Transaminitis 03/25/2019 03/27/2019 Pain in left foot 02/20/2019 10/25/2020 Chronic pain of both ankles 12/13/2017 09/17/2023 Balance problem 06/19/2016 09/17/2023 Last Assessment & Plan: Assessment; POA, stable - Patient reports trouble with balance since his liver transplant - neurologic exam significant for decreased pinprick in bilateral LE distal to mid-calf - folate 6.3, B12 532 - TSH 1.71 - HIV 1/2 nonreactive, hepatitis remote panel negative - STEFAN negative - ddx: peripheral neuropathy (nutritional, metabolic, medication side effect) vs cerebellar degeneration (prior EtOH use) - exam consistent with length dependent, small fiber nerve involvement most likely secondary to T2DM vs medications (immunosuppressants, sirolimus) PLAN: - Follow up peripheral neuropathy labs - PT/OT/PMR- acute rehab CKD (chronic kidney disease) stage 3, GFR 30-59 ml/min 06/19/2016 10/25/2020 Overview: Seeing Dr. Vipul Perez [facility] Prostate cancer screening 02/22/2016 Well adult exam 05/18/2014 10/19/2019 Overview: last done 08/24/2016 Thrombocytopenia 05/18/2014 10/19/2019 Last Assessment & Plan: Assessment: Platelet low since February 2019 per [facility] documentation No bleeding PLT 132-->106-->119-->114-->107-->124-->116-->110-->132 Plan: - Monitor Pl - Platelets stable and 132 at time of discharge Vertigo 05/18/2014 09/17/2023 Need for prophylactic immunotherapy 04/07/2014 10/19/2019 History of encephalopathy 02/06/2013 Overview: Secondary to cirrhosis. Currently alert, oriented x3, no signs of decompensated encephalopathy. Plan: - continue home regimen of lactulose, rifaximin and zinc Last Assessment & Plan: Assessment: hx secondary to cirrhosis Duodenal ulcer 02/06/2013 10/25/2020 Overview: Duodenal ulcers seen on EGD 01/31/13. Plan: Continue pantoprazole 40mg qday. Last Assessment & Plan: Assessment: h/o, no longer taking rx SUMMARY 01/13/2013 10/19/2019 Overview: Mr. 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 Mr. Sanon and his describe two normal bowel movements earlier in the day, and 3 episodes of blood in the stool since about 2 PM this afternoon. He describes the first episode as having fresh bright red blood larger in volume than several tablespoons which also mixed into the stool and toilet water. He had another episode earlier this evening, and a third episode upon admission to [facility] which was much less blood and mostly mixed into the stool. He denies hemoptysis, hematemesis, or other site of bleeding. Upon discharge 02/04/13 his hemoglobin was 8.6. In the ED tonight, Hgb is 8.4, Hct 24.4, plt 41. Ascites 01/13/2013 10/19/2019 Overview: Patient denies known history of SBP. Denies current abdominal tenderness, and no large volume ascites with need for paracentesis 02/06/2013. Plan: - ? Diuretics - will D/W nephrology Hyperbilirubinemia 01/13/2013 Overview: Arthritis 09/17/2023 Cataract of both eyes 2023 CRVO (central retinal vein occlusion) 09/17/2023 Overview: OD Tributary (branch) retinal v ein occlusion, left eye, with macular edema 09/17/2023 Overview: OS Hypertensive retinopathy Overview: mild Amblyopia of left eye 2023 Cirrhosis of liver 1 Retinal edema 09/17/2023 documented as of this encounter (statuses as of 09/30/2023) [facility]01-30-2024 History of Past illness Narrative* Problem Noted Date Diagnosed Date Resolved Date Hyperosmolar hyperglycemic state (HHS) 09/17/2023 09/18/2023 Hyponatremia 09/17/2023 09/18/2023 Coronary artery disease due to lipid rich plaque 08/28/2023 09/17/2023 Last Assessment & Plan: Assessment: Recent complex staged PCI (last intervention 07/09/23 with stents - 4 of which are overlapping and 2 of them supplying the critical territory of the LAD) Patient on dual antiplatelet therapy with aspirin 81 mg and Plavix Of note, patient held Plavix for 5 days prior to liver biopsy on 08/20 (see elevated LFTs) Today, patient without cardiac complaints - reports feeling well overall Plan: - Cardiology consulted for recommendations regarding holding anti-platelet medication for possible biopsy or ERCP--> would be suboptimal given the above risk factors, would be high-risk for potentially fatal ST since he is still only 1.5 months out of his last PCI. - Re-start Plavix today - Continue to monitor - Continue aspirin 81 mg daily, atorvastatin, coreg, diltiazem Complication of liver transplant 08/27/2023 09/17/2023 S/P angioplasty with stent 08/06/2023 0 09/17/2023 Last Assessment & Plan: Assessment: on 06/05/2023- abnormal stress test and underwent a diagnostic LHC that showed severe stenosis in proximal to mid LAD, D1, dLCx, and pOM1. A staged PCI to the ostial to mid LAD with 2 overlapping stents and the mLAD to first diagonal 06/11/[address] Whitaker. A staged PCI on 07/09/2023 at [facility] by Dr. Whitaker, with PCI with stent placement to the ramus intermedius and OM2. On ASA 81mg (to be on indefinitely) and plavix for at least 12 months after stent placement. 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 Hyperkalemia 12/13/2021 12/18/2021 Last Assessment & Plan: Assessment: Improved, K+ is 4.9 on today's labs. Hyperkalemic trends with recent BMPs. PLAN: - Continuous tele monitoring ordered - Daily BMPs Ileus, postoperative 12/13/2021 022 Last Assessment & Plan: Assessment: POD3 ventral hernia repair with mesh. Now with bowel function. No nausea, vomiting. PLAN: - D/C NGT. - Advance to [facility]D - Continue to get OOB Ventral hernia, recurrent 12/12/2021 Thoracic aorta atherosclerosis 10/12/2021 09/17/2023 Last Assessment & Plan: Assessment: maximal dimension 4.0cm on echo 10/2019 Prostate disorder 05/18/2021 09/17/2023 Last Assessment & Plan: Assessment: no current tx Chronic lumbar pain 06/16/2020 09/17/19 24 Overview: Seeing Dr. Cedeno (12/2020) Last Assessment & Plan: Assessment: following pain management Dr. Cedeno Bilateral leg edema 01/22/2020 09/17/19 24 Metabolic acidosis 11/25/2019 1 Medication management 05/18/20192019 Hyperkalemia 04/24/2019 10/25/2020 Last Assessment & Plan: K 5.2 at time of discharge, likely elevated in setting of NASIR on CKD Patient also stated that he was eating potatoes with every meal because that was what they were giving him He has had hyperkalemia in the past PLAN: - Switched to renal diet - Educated patient on what foods to avoid - Recheck BMP on Saturday at PCP follow up appointment for monitoring of K History of deep venous throm bosis (DVT) of distal vein of right lower extremity 04/06/2019 Overview: 02/2019: 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 Last Assessment & Plan: Assessment: h/o DVT 2018, +lupus anticoagulant positive, on daily ASA Transaminitis 03/25/2019 03/27/2019 Pain in left foot 02/20/2019 10/25/2020 Chronic pain of both ankles 12/13/2017 09/17/2023 Balance problem 06/19/2016 09/17/2023 Last Assessment & Plan: Assessment; POA, stable - Patient reports trouble with balance since his liver transplant - neurologic exam significant for decreased pinprick in bilateral LE distal to mid-calf - folate 6.3, B12 532 - TSH 1.71 - HIV 1/2 nonreactive, hepatitis remote panel negative - STEFAN negative - ddx: peripheral neuropathy (nutritional, metabolic, medication side effect) vs cerebellar degeneration (prior EtOH use) - exam consistent with length dependent, small fiber nerve involvement most likely secondary to T2DM vs medications (immunosuppressants, sirolimus) PLAN: - Follow up peripheral neuropathy labs - PT/OT/PMR- acute rehab CKD (chronic kidney disease) stage 3, GFR 30-59 ml/min 06/19/2016 10/25/2020 Overview: Seeing Dr. Vipul Perez [facility] Prostate cancer screening 02/22/2016 Well adult exam 05/18/2014 10/19/2019 Overview: last done 08/24/2016 Thrombocytopenia 05/18/2014 10/19/2019 Last Assessment & Plan: Assessment: Platelet low since February 2019 per [facility] documentation No bleeding PLT 132-->106-->119-->114-->107-->124-->116-->110-->132 Plan: - Monitor Pl - Platelets stable and 132 at time of discharge Vertigo 05/18/2014 09/17/2023 Need for prophylactic immunotherapy 04/07/2014 10/19/2019 History of encephalopathy 02/06/2013 Overview: Secondary to cirrhosis. Currently alert, oriented x3, no signs of decompensated encephalopathy. Plan: - continue home regimen of lactulose, rifaximin and zinc Last Assessment & Plan: Assessment: hx secondary to cirrhosis Duodenal ulcer 02/06/2013 10/25/2020 Overview: Duodenal ulcers seen on EGD 01/31/13. Plan: Continue pantoprazole 40mg qday. Last Assessment & Plan: Assessment: h/o, no longer taking rx SUMMARY 01/13/2013 10/19/2019 Overview: Mr. 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 Mr. Sanon and his describe two normal bowel movements earlier in the day, and 3 episodes of blood in the stool since about 2 PM this afternoon. He describes the first episode as having fresh bright red blood larger in volume than several tablespoons which also mixed into the stool and toilet water. He had another episode earlier this evening, and a third episode upon admission to [facility] which was much less blood and mostly mixed into the stool. He denies hemoptysis, hematemesis, or other site of bleeding. Upon discharge 02/04/13 his hemoglobin was 8.6. In the ED tonight, Hgb is 8.4, Hct 24.4, plt 41. Ascites 01/13/2013 10/19/2019 Overview: Patient denies known history of SBP. Denies current abdominal tenderness, and no large volume ascites with need for paracentesis 02/06/2013. Plan: - ? Diuretics - will D/W nephrology Hyperbilirubinemia 01/13/2013 01/30/202 4 Overview: Arthritis 09/17/2023 Cataract of both eyes 2023 CRVO (central retinal vein occlusion) 09/17/2023 Overview: OD Tributary (branch) retinal v ein occlusion, left eye, with macular edema 09/17/2023 Overview: OS Hypertensive retinopathy Overview: mild Amblyopia of left eye 2023 Cirrhosis of liver Retinal edema 09/17/2023 documented as of this encounter (statuses as of 10/02/2023) [facility]01-30-2024 History of Past illness Narrative* Problem Noted Date Diagnosed Date Resolved Date Hyperosmolar hyperglycemic state (HHS) 09/17/2023 09/18/2023 Hyponatremia 09/17/2023 09/18/2023 Coronary artery disease due to lipid rich plaque 08/28/2023 09/17/2023 Last Assessment & Plan: Assessment: Recent complex staged PCI (last intervention 07/09/23 with stents - 4 of which are overlapping and 2 of them supplying the critical territory of the LAD) Patient on dual antiplatelet therapy with aspirin 81 mg and Plavix Of note, patient held Plavix for 5 days prior to liver biopsy on 08/20 (see elevated LFTs) Today, patient without cardiac complaints - reports feeling well overall Plan: - Cardiology consulted for recommendations regarding holding anti-platelet medication for possible biopsy or ERCP--> would be suboptimal given the above risk factors, would be high-risk for potentially fatal ST since he is still only 1.5 months out of his last PCI. - Re-start Plavix today - Continue to monitor - Continue aspirin 81 mg daily, atorvastatin, coreg, diltiazem Complication of liver transplant 08/27/2023 09/17/2023 S/P angioplasty with stent 08/06/2023 0 09/17/2023 Last Assessment & Plan: Assessment: on 06/05/2023- abnormal stress test and underwent a diagnostic LHC that showed severe stenosis in proximal to mid LAD, D1, dLCx, and pOM1. A staged PCI to the ostial to mid LAD with 2 overlapping stents and the mLAD to first diagonal 06/11/[address] Whitaker. A staged PCI on 07/09/2023 at [facility] by Dr. Whitaker, with PCI with stent placement to the ramus intermedius and OM2. On ASA 81mg (to be on indefinitely) and plavix for at least 12 months after stent placement. 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 Hyperkalemia 12/13/2021 12/18/2021 Last Assessment & Plan: Assessment: Improved, K+ is 4.9 on today's labs. Hyperkalemic trends with recent BMPs. PLAN: - Continuous tele monitoring ordered - Daily BMPs Ileus, postoperative 12/13/2021 022 Last Assessment & Plan: Assessment: POD3 ventral hernia repair with mesh. Now with bowel function. No nausea, vomiting. PLAN: - D/C NGT. - Advance to CLD - Continue to get OOB Ventral hernia, recurrent 12/12/2021 Thoracic aorta atherosclerosis 10/12/2021 09/17/2023 Last Assessment & Plan: Assessment: maximal dimension 4.0cm on echo 10/2019 Prostate disorder 05/18/2021 09/17/2023 Last Assessment & Plan: Assessment: no current tx Chronic lumbar pain 06/16/2020 09/17/19 24 Overview: Seeing Dr. Cedeno (12/2020) Last Assessment & Plan: Assessment: following pain management Dr. Cedeno Bilateral leg edema 01/22/2020 09/17/19 24 Metabolic acidosis 11/25/2019 Medication management 05/18/20192019 Hyperkalemia 04/24/2019 10/25/2020 Last Assessment & Plan: K 5.2 at time of discharge, likely elevated in setting of NASIR on CKD Patient also stated that he was eating potatoes with every meal because that was what they were giving him He has had hyperkalemia in the past PLAN: - Switched to renal diet - Educated patient on what foods to avoid - Recheck BMP on Saturday at PCP follow up appointment for monitoring of K History of deep venous throm bosis (DVT) of distal vein of right lower extremity 04/06/2019 Overview: 02/2019: was to be on penitentiary anticoagulation. 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 Last Assessment & Plan: Assessment: h/o DVT 2018, +lupus anticoagulant positive, on daily ASA Transaminitis 03/25/2019 03/27/2019 Pain in left foot 02/20/2019 10/25/2020 Chronic pain of both ankles 12/13/2017 09/17/2023 Balance problem 06/19/2016 09/17/2023 Last Assessment & Plan: Assessment; POA, stable - Patient reports trouble with balance since his liver transplant - neurologic exam significant for decreased pinprick in bilateral LE distal to mid-calf - folate 6.3, B12 532 - TSH 1.71 - HIV 1/2 nonreactive, hepatitis remote panel negative - STEFAN negative - ddx: peripheral neuropathy (nutritional, metabolic, medication side effect) vs cerebellar degeneration (prior EtOH use) - exam consistent with length dependent, small fiber nerve involvement most likely secondary to T2DM vs medications (immunosuppressants, sirolimus) PLAN: - Follow up peripheral neuropathy labs - PT/OT/PMR- acute rehab CKD (chronic kidney disease) stage 3, GFR 30-59 ml/min 06/19/2016 10/25/2020 Overview: Seeing Dr. Vipul Perez [facility] Prostate cancer screening 02/22/2016 Well adult exam 05/18/2014 10/19/2019 Overview: last done 08/24/2016 Thrombocytopenia 05/18/2014 10/19/2019 Last Assessment & Plan: Assessment: Platelet low since February 2019 per Epic documentation No bleeding PLT 132-->106-->119-->114-->107-->124-->116-->110-->132 Plan: - Monitor Pl - Platelets stable and 132 at time of discharge Vertigo 05/18/2014 09/17/2023 Need for prophylactic immunotherapy 04/07/2014 10/19/2019 History of encephalopathy 02/06/2013 Overview: Secondary to cirrhosis. Currently alert, oriented x3, no signs of decompensated encephalopathy. Plan: - continue home regimen of lactulose, rifaximin and zinc Last Assessment & Plan: Assessment: hx secondary to cirrhosis Duodenal ulcer 02/06/2013 10/25/2020 Overview: Duodenal ulcers seen on EGD 01/31/13. Plan: Continue pantoprazole 40mg qday. Last Assessment & Plan: Assessment: h/o, no longer taking rx SUMMARY 01/13/2013 10/19/2019 Overview: Mr. 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 Mr. Sanon and his describe two normal bowel movements earlier in the day, and 3 episodes of blood in the stool since about 2 PM this afternoon. He describes the first episode as having fresh bright red blood larger in volume than several tablespoons which also mixed into the stool and toilet water. He had another episode earlier this evening, and a third episode upon admission to [facility] which was much less blood and mostly mixed into the stool. He denies hemoptysis, hematemesis, or other site of bleeding. Upon discharge 02/04/13 his hemoglobin was 8.6. In the ED tonight, Hgb is 8.4, Hct 24.4, plt 41. Ascites 01/13/2013 10/19/2019 Overview: Patient denies known history of SBP. Denies current abdominal tenderness, and no large volume ascites with need for paracentesis 02/06/2013. Plan: - ? Diuretics - will D/W nephrology Hyperbilirubinemia 01/13/2013 Overview: Arthritis 09/17/2023 Cataract of both eyes 2023 CRVO (central retinal vein occlusion) 09/17/2023 Overview: OD Tributary (branch) retinal v ein occlusion, left eye, with macular edema 09/17/2023 Overview: OS Hypertensive retinopathy Overview: mild Amblyopia of left eye 2023 Cirrhosis of liver 1 Retinal edema 09/17/2023 documented as of this encounter (statuses as of 10/03/2023) [facility]01-30-2024 History of Past illness Narrative* Problem Noted Date Diagnosed Date Resolved Date Hyperosmolar hyperglycemic state (HHS) 09/17/2023 09/18/2023 Hyponatremia 09/17/2023 09/18/2023 Coronary artery disease due to lipid rich plaque 08/28/2023 09/17/2023 Last Assessment & Plan: Assessment: Recent complex staged PCI (last intervention 07/09/23 with stents - 4 of which are overlapping and 2 of them supplying the critical territory of the LAD) Patient on dual antiplatelet therapy with aspirin 81 mg and Plavix Of note, patient held Plavix for 5 days prior to liver biopsy on 08/20 (see elevated LFTs) Today, patient without cardiac complaints - reports feeling well overall Plan: - Cardiology consulted for recommendations regarding holding anti-platelet medication for possible biopsy or ERCP--> would be suboptimal given the above risk factors, would be high-risk for potentially fatal ST since he is still only 1.5 months out of his last PCI. - Re-start Plavix today - Continue to monitor - Continue aspirin 81 mg daily, atorvastatin, coreg, diltiazem Complication of liver transplant 08/27/2023 09/17/2023 S/P angioplasty with stent 08/06/2023 0 09/17/2023 Last Assessment & Plan: Assessment: on 06/05/2023- abnormal stress test and underwent a diagnostic LHC that showed severe stenosis in proximal to mid LAD, D1, dLCx, and pOM1. A staged PCI to the ostial to mid LAD with 2 overlapping stents and the mLAD to first diagonal 06/11/[address] Whitaker. A staged PCI on 07/09/2023 at [facility] by Dr. Whitaker, with PCI with stent placement to the ramus intermedius and OM2. On ASA 81mg (to be on indefinitely) and plavix for at least 12 months after stent placement. 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 Hyperkalemia 12/13/2021 12/18/2021 Last Assessment & Plan: Assessment: Improved, K+ is 4.9 on today's labs. Hyperkalemic trends with recent BMPs. PLAN: - Continuous tele monitoring ordered - Daily BMPs Ileus, postoperative 12/13/2021 022 Last Assessment & Plan: Assessment: POD3 ventral hernia repair with mesh. Now with bowel function. No nausea, vomiting. PLAN: - D/C NGT. - Advance to CLD - Continue to get OOB Ventral hernia, recurrent 12/12/2021 Thoracic aorta atherosclerosis 10/12/2021 09/17/2023 Last Assessment & Plan: Assessment: maximal dimension 4.0cm on echo 10/2019 Prostate disorder 05/18/2021 09/17/2023 Last Assessment & Plan: Assessment: no current tx Chronic lumbar pain 06/16/2020 09/17/19 24 Overview: Seeing Dr. Cedeno (12/2020) Last Assessment & Plan: Assessment: following pain management Dr. 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 Last Assessment & Plan: Assessment: h/o DVT 2018, +lupus anticoagulant positive, on daily ASA Transaminitis 03/25/2019 03/27/2019 Pain in left foot 02/20/2019 10/25/2020 Chronic pain of both ankles 12/13/2017 09/17/2023 Balance problem 06/19/2016 09/17/2023 Last Assessment & Plan: Assessment; POA, stable - Patient reports trouble with balance since his liver transplant - neurologic exam significant for decreased pinprick in bilateral LE distal to mid-calf - folate 6.3, B12 532 - TSH 1.71 - HIV 1/2 nonreactive, hepatitis remote panel negative - STEFAN negative - ddx: peripheral neuropathy (nutritional, metabolic, medication side effect) vs cerebellar degeneration (prior EtOH use) - exam consistent with length dependent, small fiber nerve involvement most likely secondary to T2DM vs medications (immunosuppressants, sirolimus) PLAN: - Follow up peripheral neuropathy labs - PT/OT/PMR- acute rehab CKD (chronic kidney disease) stage 3, GFR 30-59 ml/min 06/19/2016 10/25/2020 Overview: Seeing Dr. Vipul Perez [facility] Prostate cancer screening 02/22/2016 Well adult exam 05/18/2014 10/19/2019 Overview: last done 08/24/2016 Thrombocytopenia 05/18/2014 10/19/2019 Last Assessment & Plan: Assessment: Platelet low since February 2019 per Epic documentation No bleeding PLT 132-->106-->119-->114-->107-->124-->116-->110-->132 Plan: - Monitor Pl - Platelets stable and 132 at time of discharge Vertigo 05/18/2014 09/17/2023 Need for prophylactic immunotherapy 04/07/2014 10/19/2019 History of encephalopathy 02/06/2013 Overview: Secondary to cirrhosis. Currently alert, oriented x3, no signs of decompensated encephalopathy. Plan: - continue home regimen of lactulose, rifaximin and zinc Last Assessment & Plan: Assessment: hx secondary to cirrhosis Duodenal ulcer 02/06/2013 10/25/2020 Overview: Duodenal ulcers seen on EGD 01/31/13. Plan: Continue pantoprazole 40mg qday. Last Assessment & Plan: Assessment: h/o, no longer taking rx SUMMARY 01/13/2013 10/19/2019 Overview: Mr. 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 Mr. Sanon and his describe two normal bowel movements earlier in the day, and 3 episodes of blood in the stool since about 2 PM this afternoon. He describes the first episode as having fresh bright red blood larger in volume than several tablespoons which also mixed into the stool and toilet water. He had another episode earlier this evening, and a third episode upon admission to [facility] which was much less blood and mostly mixed into the stool. He denies hemoptysis, hematemesis, or other site of bleeding. Upon discharge 02/04/13 his hemoglobin was 8.6. In the ED tonight, Hgb is 8.4, Hct 24.4, plt 41. Ascites 01/13/2013 10/19/2019 Overview: Patient denies known history of SBP. Denies current abdominal tenderness, and no large volume ascites with need for paracentesis 02/06/2013. Plan: - ? Diuretics - will D/W nephrology Hyperbilirubinemia 01/13/2013 Overview: Arthritis 09/17/2023 Cataract of both eyes 2023 CRVO (central retinal vein occlusion) 09/17/2023 Overview: OD Tributary (branch) retinal v ein occlusion, left eye, with macular edema 09/17/2023 Overview: OS Hypertensive retinopathy Overview: mild Amblyopia of left eye 2023 Cirrhosis of liver 1 Retinal edema 09/17/2023 documented as of this encounter (statuses as of 10/04/2023) [facility]01-30-2024 History of Past illness Narrative* Problem Noted Date Diagnosed Date Resolved Date Hyperosmolar hyperglycemic state (HHS) 09/17/2023 09/18/2023 Hyponatremia 09/17/2023 09/18/2023 Coronary artery disease due to lipid rich plaque 08/28/2023 09/17/2023 Last Assessment & Plan: Assessment: Recent complex staged PCI (last intervention 07/09/23 with stents - 4 of which are overlapping and 2 of them supplying the critical territory of the LAD) Patient on dual antiplatelet therapy with aspirin 81 mg and Plavix Of note, patient held Plavix for 5 days prior to liver biopsy on 08/20 (see elevated LFTs) Today, patient without cardiac complaints - reports feeling well overall Plan: - Cardiology consulted for recommendations regarding holding anti-platelet medication for possible biopsy or ERCP--> would be suboptimal given the above risk factors, would be high-risk for potentially fatal ST since he is still only 1.5 months out of his last PCI. - Re-start Plavix today - Continue to monitor - Continue aspirin 81 mg daily, atorvastatin, coreg, diltiazem Complication of liver transplant 08/27/2023 09/17/2023 S/P angioplasty with stent 08/06/2023 0 09/17/2023 Last Assessment & Plan: Assessment: on 06/05/2023- abnormal stress test and underwent a diagnostic LHC that showed severe stenosis in proximal to mid LAD, D1, dLCx, and pOM1. A staged PCI to the ostial to mid LAD with 2 overlapping stents and the mLAD to first diagonal 06/11/[address] Whitaker. A staged PCI on 07/09/2023 at [facility] by Dr. Whitaker, with PCI with stent placement to the ramus intermedius and OM2. On ASA 81mg (to be on indefinitely) and plavix for at least 12 months after stent placement. 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 Hyperkalemia 12/13/2021 12/18/2021 Last Assessment & Plan: Assessment: Improved, K+ is 4.9 on today's labs. Hyperkalemic trends with recent BMPs. PLAN: - Continuous tele monitoring ordered - Daily BMPs Ileus, postoperative 12/13/2021 022 Last Assessment & Plan: Assessment: POD3 ventral hernia repair with mesh. Now with bowel function. No nausea, vomiting. PLAN: - D/C NGT. - Advance to [facility]D - Continue to get OOB Ventral hernia, recurrent 12/12/2021 Thoracic aorta atherosclerosis 10/12/2021 09/17/2023 Last Assessment & Plan: Assessment: maximal dimension 4.0cm on echo 10/2019 Prostate disorder 05/18/2021 09/17/2023 Last Assessment & Plan: Assessment: no current tx Chronic lumbar pain 06/16/2020 09/17/19 24 Overview: Seeing Dr. Cedeno (12/2020) Last Assessment & Plan: Assessment: following pain management Dr. Cedeno Bilateral leg edema 01/22/2020 09/17/19 Metabolic acidosis 11/25/2019 Medication management 05/18/20192019 Hyperkalemia 04/24/2019 10/25/2020 Last Assessment & Plan: K 5.2 at time of discharge, likely elevated in setting of NASIR on CKD Patient also stated that he was eating potatoes with every meal because that was what they were giving him He has had hyperkalemia in the past PLAN: - Switched to renal diet - Educated patient on what foods to avoid - Recheck BMP on Saturday at PCP follow up appointment for monitoring of K History of deep venous throm bosis (DVT) of distal vein of right lower extremity 04/06/2019 Overview: 02/2019: was to be on penitentiary anticoagulation. 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 Last Assessment & Plan: Assessment: h/o DVT 2018, +lupus anticoagulant positive, on daily ASA Transaminitis 03/25/2019 03/27/2019 Pain in left foot 02/20/2019 10/25/2020 Chronic pain of both ankles 12/13/2017 09/17/2023 Balance problem 06/19/2016 09/17/2023 Last Assessment & Plan: Assessment; POA, stable - Patient reports trouble with balance since his liver transplant - neurologic exam significant for decreased pinprick in bilateral LE distal to mid-calf - folate 6.3, B12 532 - TSH 1.71 - HIV 1/2 nonreactive, hepatitis remote panel negative - STEFAN negative - ddx: peripheral neuropathy (nutritional, metabolic, medication side effect) vs cerebellar degeneration (prior EtOH use) - exam consistent with length dependent, small fiber nerve involvement most likely secondary to T2DM vs medications (immunosuppressants, sirolimus) PLAN: - Follow up peripheral neuropathy labs - PT/OT/PMR- acute rehab CKD (chronic kidney disease) stage 3, GFR 30-59 ml/min 06/19/2016 10/25/2020 Overview: Seeing Dr. Vipul Perez [facility] Prostate cancer screening 02/22/2016 Well adult exam 05/18/2014 10/19/2019 Overview: last done 08/24/2016 Thrombocytopenia 05/18/2014 10/19/2019 Last Assessment & Plan: Assessment: Platelet low since February 2019 per Epic documentation No bleeding PLT 132-->106-->119-->114-->107-->124-->116-->110-->132 Plan: - Monitor Pl - Platelets stable and 132 at time of discharge Vertigo 05/18/2014 09/17/2023 Need for prophylactic immunotherapy 04/07/2014 10/19/2019 History of encephalopathy 02/06/2013 Overview: Secondary to cirrhosis. Currently alert, oriented x3, no signs of decompensated encephalopathy. Plan: - continue home regimen of lactulose, rifaximin and zinc Last Assessment & Plan: Assessment: hx secondary to cirrhosis Duodenal ulcer 02/06/2013 10/25/2020 Overview: Duodenal ulcers seen on EGD 01/31/13. Plan: Continue pantoprazole 40mg qday. Last Assessment & Plan: Assessment: h/o, no longer taking rx SUMMARY 01/13/2013 10/19/2019 Overview: Mr. 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 Mr. Sanon and his describe two normal bowel movements earlier in the day, and 3 episodes of blood in the stool since about 2 PM this afternoon. He describes the first episode as having fresh bright red blood larger in volume than several tablespoons which also mixed into the stool and toilet water. He had another episode earlier this evening, and a third episode upon admission to [facility] which was much less blood and mostly mixed into the stool. He denies hemoptysis, hematemesis, or other site of bleeding. Upon discharge 02/04/13 his hemoglobin was 8.6. In the ED tonight, Hgb is 8.4, Hct 24.4, plt 41. Ascites 01/13/2013 10/19/2019 Overview: Patient denies known history of SBP. Denies current abdominal tenderness, and no large volume ascites with need for paracentesis 02/06/2013. Plan: - ? Diuretics - will D/W nephrology Hyperbilirubinemia 01/13/2013 4 Overview: Arthritis 09/17/2023 Cataract of both eyes 2023 CRVO (central retinal vein occlusion) 09/17/2023 Overview: OD Tributary (branch) retinal v ein occlusion, left eye, with macular edema 09/17/2023 Overview: OS Hypertensive retinopathy Overview: mild Amblyopia of left eye 2023 Cirrhosis of liver 1 Retinal edema 09/17/2023 documented as of this encounter (statuses as of 10/04/2023) [facility]01-30-2024 History of Past illness Narrative* Problem Noted Date Diagnosed Date Resolved Date Hyperosmolar hyperglycemic state (HHS) 09/17/2023 09/18/2023 Hyponatremia 09/17/2023 09/18/2023 Coronary artery disease due to lipid rich plaque 08/28/2023 09/17/2023 Last Assessment & Plan: Assessment: Recent complex staged PCI (last intervention 07/09/23 with stents - 4 of which are overlapping and 2 of them supplying the critical territory of the LAD) Patient on dual antiplatelet therapy with aspirin 81 mg and Plavix Of note, patient held Plavix for 5 days prior to liver biopsy on 08/20 (see elevated LFTs) Today, patient without cardiac complaints - reports feeling well overall Plan: - Cardiology consulted for recommendations regarding holding anti-platelet medication for possible biopsy or ERCP--> would be suboptimal given the above risk factors, would be high-risk for potentially fatal ST since he is still only 1.5 months out of his last PCI. - Re-start Plavix today - Continue to monitor - Continue aspirin 81 mg daily, atorvastatin, coreg, diltiazem Complication of liver transplant 08/27/2023 09/17/2023 S/P angioplasty with stent 08/06/2023 0 09/17/2023 Last Assessment & Plan: Assessment: on 06/05/2023- abnormal stress test and underwent a diagnostic LHC that showed severe stenosis in proximal to mid LAD, D1, dLCx, and pOM1. A staged PCI to the ostial to mid LAD with 2 overlapping stents and the mLAD to first diagonal 06/11/[address] Whitaker. A staged PCI on 07/09/2023 at [facility] by Dr. Whitaker, with PCI with stent placement to the ramus intermedius and OM2. On ASA 81mg (to be on indefinitely) and plavix for at least 12 months after stent placement. 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 Hyperkalemia 12/13/2021 12/18/2021 Last Assessment & Plan: Assessment: Improved, K+ is 4.9 on today's labs. Hyperkalemic trends with recent BMPs. PLAN: - Continuous tele monitoring ordered - Daily BMPs Ileus, postoperative 12/13/2021 022 Last Assessment & Plan: Assessment: POD3 ventral hernia repair with mesh. Now with bowel function. No nausea, vomiting. PLAN: - D/C NGT. - Advance to CLD - Continue to get OOB Ventral hernia, recurrent 12/12/2021 Thoracic aorta atherosclerosis 10/12/2021 09/17/2023 Last Assessment & Plan: Assessment: maximal dimension 4.0cm on echo 10/2019 Prostate disorder 05/18/2021 09/17/2023 Last Assessment & Plan: Assessment: no current tx Chronic lumbar pain 06/16/2020 09/17/19 24 Overview: Seeing Dr. Cedeno (12/2020) Last Assessment & Plan: Assessment: following pain management Dr. Cedeno Bilateral leg edema 01/22/2020 09/17/19 24 Metabolic acidosis 11/25/2019 1 Medication management 05/18/20192019 Hyperkalemia 04/24/2019 10/25/2020 Last Assessment & Plan: K 5.2 at time of discharge, likely elevated in setting of NASIR on CKD Patient also stated that he was eating potatoes with every meal because that was what they were giving him He has had hyperkalemia in the past PLAN: - Switched to renal diet - Educated patient on what foods to avoid - Recheck BMP on Saturday at PCP follow up appointment for monitoring of K History of deep venous throm bosis (DVT) of distal vein of right lower extremity 04/06/2019 Overview: 02/2019: 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 Last Assessment & Plan: Assessment: h/o DVT 2018, +lupus anticoagulant positive, on daily ASA Transaminitis 03/25/2019 03/27/2019 Pain in left foot 02/20/2019 10/25/2020 Chronic pain of both ankles 12/13/2017 09/17/2023 Balance problem 06/19/2016 09/17/2023 Last Assessment & Plan: Assessment; POA, stable - Patient reports trouble with balance since his liver transplant - neurologic exam significant for decreased pinprick in bilateral LE distal to mid-calf - folate 6.3, B12 532 - TSH 1.71 - HIV 1/2 nonreactive, hepatitis remote panel negative - STEFAN negative - ddx: peripheral neuropathy (nutritional, metabolic, medication side effect) vs cerebellar degeneration (prior EtOH use) - exam consistent with length dependent, small fiber nerve involvement most likely secondary to T2DM vs medications (immunosuppressants, sirolimus) PLAN: - Follow up peripheral neuropathy labs - PT/OT/PMR- acute rehab CKD (chronic kidney disease) stage 3, GFR 30-59 ml/min 06/19/2016 10/25/2020 Overview: Seeing Dr. Vipul Perez [facility] Prostate cancer screening 02/22/2016 Well adult exam 05/18/2014 10/19/2019 Overview: last done 08/24/2016 Thrombocytopenia 05/18/2014 10/19/2019 Last Assessment & Plan: Assessment: Platelet low since February 2019 per Epic documentation No bleeding PLT 132-->106-->119-->114-->107-->124-->116-->110-->132 Plan: - Monitor Pl - Platelets stable and 132 at time of discharge Vertigo 05/18/2014 09/17/2023 Need for prophylactic immunotherapy 04/07/2014 10/19/2019 History of encephalopathy 02/06/2013 Overview: Secondary to cirrhosis. Currently alert, oriented x3, no signs of decompensated encephalopathy. Plan: - continue home regimen of lactulose, rifaximin and zinc Last Assessment & Plan: Assessment: hx secondary to cirrhosis Duodenal ulcer 02/06/2013 10/25/2020 Overview: Duodenal ulcers seen on EGD 01/31/13. Plan: Continue pantoprazole 40mg qday. Last Assessment & Plan: Assessment: h/o, no longer taking rx SUMMARY 01/13/2013 10/19/2019 Overview: Mr. 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 Mr. Sanon and his describe two normal bowel movements earlier in the day, and 3 episodes of blood in the stool since about 2 PM this afternoon. He describes the first episode as having fresh bright red blood larger in volume than several tablespoons which also mixed into the stool and toilet water. He had another episode earlier this evening, and a third episode upon admission to [facility] which was much less blood and mostly mixed into the stool. He denies hemoptysis, hematemesis, or other site of bleeding. Upon discharge 02/04/13 his hemoglobin was 8.6. In the ED tonight, Hgb is 8.4, Hct 24.4, plt 41. Ascites 01/13/2013 10/19/2019 Overview: Patient denies known history of SBP. Denies current abdominal tenderness, and no large volume ascites with need for paracentesis 02/06/2013. Plan: - ? Diuretics - will D/W nephrology Hyperbilirubinemia 01/13/2013 Overview: Arthritis 09/17/2023 Cataract of both eyes 2023 CRVO (central retinal vein occlusion) 09/17/2023 Overview: OD Tributary (branch) retinal v ein occlusion, left eye, with macular edema 09/17/2023 Overview: OS Hypertensive retinopathy Overview: mild Amblyopia of left eye 2023 Cirrhosis of liver 1 Retinal edema 09/17/2023 documented as of this encounter (statuses as of 10/05/2023) [facility]01-30-2024 History of Past illness Narrative* Problem Noted Date Diagnosed Date Resolved Date Hyperosmolar hyperglycemic state (HHS) 09/17/2023 09/18/2023 Hyponatremia 09/17/2023 09/18/2023 Coronary artery disease due to lipid rich plaque 08/28/2023 09/17/2023 Last Assessment & Plan: Assessment: Recent complex staged PCI (last intervention 07/09/23 with stents - 4 of which are overlapping and 2 of them supplying the critical territory of the LAD) Patient on dual antiplatelet therapy with aspirin 81 mg and Plavix Of note, patient held Plavix for 5 days prior to liver biopsy on 08/20 (see elevated LFTs) Today, patient without cardiac complaints - reports feeling well overall Plan: - Cardiology consulted for recommendations regarding holding anti-platelet medication for possible biopsy or ERCP--> would be suboptimal given the above risk factors, would be high-risk for potentially fatal ST since he is still only 1.5 months out of his last PCI. - Re-start Plavix today - Continue to monitor - Continue aspirin 81 mg daily, atorvastatin, coreg, diltiazem Complication of liver transplant 08/27/2023 09/17/2023 S/P angioplasty with stent 08/06/2023 0 09/17/2023 Last Assessment & Plan: Assessment: on 06/05/2023- abnormal stress test and underwent a diagnostic LHC that showed severe stenosis in proximal to mid LAD, D1, dLCx, and pOM1. A staged PCI to the ostial to mid LAD with 2 overlapping stents and the mLAD to first diagonal 06/11/[address] Whitaker. A staged PCI on 07/09/2023 at [facility] by Dr. Whitaker, with PCI with stent placement to the ramus intermedius and OM2. On ASA 81mg (to be on indefinitely) and plavix for at least 12 months after stent placement. 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 Hyperkalemia 12/13/2021 12/18/2021 Last Assessment & Plan: Assessment: Improved, K+ is 4.9 on today's labs. Hyperkalemic trends with recent BMPs. PLAN: - Continuous tele monitoring ordered - Daily BMPs Ileus, postoperative 12/13/2021 022 Last Assessment & Plan: Assessment: POD3 ventral hernia repair with mesh. Now with bowel function. No nausea, vomiting. PLAN: - D/C NGT. - Advance to CLD - Continue to get OOB Ventral hernia, recurrent 12/12/2021 Thoracic aorta atherosclerosis 10/12/2021 09/17/2023 Last Assessment & Plan: Assessment: maximal dimension 4.0cm on echo 10/2019 Prostate disorder 05/18/2021 09/17/2023 Last Assessment & Plan: Assessment: no current tx Chronic lumbar pain 06/16/2020 09/17/19 Overview: Seeing Dr. Cedeno (12/2020) Last Assessment & Plan: Assessment: following pain management Dr. Cedeno Bilateral leg edema 01/22/2020 09/17/19 Metabolic acidosis 11/25/2019 Medication management 05/18/20192019 Hyperkalemia 04/24/2019 10/25/2020 Last Assessment & Plan: K 5.2 at time of discharge, likely elevated in setting of NASIR on CKD Patient also stated that he was eating potatoes with every meal because that was what they were giving him He has had hyperkalemia in the past PLAN: - Switched to renal diet - Educated patient on what foods to avoid - Recheck BMP on Saturday at PCP follow up appointment for monitoring of K History of deep venous throm bosis (DVT) of distal vein of right lower extremity 04/06/2019 Overview: 02/2019: was to be on penitentiary anticoagulation. 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 Last Assessment & Plan: Assessment: h/o DVT 2018, +lupus anticoagulant positive, on daily ASA Transaminitis 03/25/2019 03/27/2019 Pain in left foot 02/20/2019 10/25/2020 Chronic pain of both ankles 12/13/2017 09/17/2023 Balance problem 06/19/2016 09/17/2023 Last Assessment & Plan: Assessment; POA, stable - Patient reports trouble with balance since his liver transplant - neurologic exam significant for decreased pinprick in bilateral LE distal to mid-calf - folate 6.3, B12 532 - TSH 1.71 - HIV 1/2 nonreactive, hepatitis remote panel negative - STEFAN negative - ddx: peripheral neuropathy (nutritional, metabolic, medication side effect) vs cerebellar degeneration (prior EtOH use) - exam consistent with length dependent, small fiber nerve involvement most likely secondary to T2DM vs medications (immunosuppressants, sirolimus) PLAN: - Follow up peripheral neuropathy labs - PT/OT/PMR- acute rehab CKD (chronic kidney disease) stage 3, GFR 30-59 ml/min 06/19/2016 10/25/2020 Overview: Seeing Dr. Vipul Perez [facility] Prostate cancer screening 02/22/2016 Well adult exam 05/18/2014 10/19/2019 Overview: last done 08/24/2016 Thrombocytopenia 05/18/2014 10/19/2019 Last Assessment & Plan: Assessment: Platelet low since February 2019 per [facility] documentation No bleeding PLT 132-->106-->119-->114-->107-->124-->116-->110-->132 Plan: - Monitor Pl - Platelets stable and 132 at time of discharge Vertigo 05/18/2014 09/17/2023 Need for prophylactic immunotherapy 04/07/2014 10/19/2019 History of encephalopathy 02/06/2013 Overview: Secondary to cirrhosis. Currently alert, oriented x3, no signs of decompensated encephalopathy. Plan: - continue home regimen of lactulose, rifaximin and zinc Last Assessment & Plan: Assessment: hx secondary to cirrhosis Duodenal ulcer 02/06/2013 10/25/2020 Overview: Duodenal ulcers seen on EGD 01/31/13. Plan: Continue pantoprazole 40mg qday. Last Assessment & Plan: Assessment: h/o, no longer taking rx SUMMARY 01/13/2013 10/19/2019 Overview: Mr. 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 Mr. Sanon and his describe two normal bowel movements earlier in the day, and 3 episodes of blood in the stool since about 2 PM this afternoon. He describes the first episode as having fresh bright red blood larger in volume than several tablespoons which also mixed into the stool and toilet water. He had another episode earlier this evening, and a third episode upon admission to [facility] which was much less blood and mostly mixed into the stool. He denies hemoptysis, hematemesis, or other site of bleeding. Upon discharge 02/04/13 his hemoglobin was 8.6. In the ED tonight, Hgb is 8.4, Hct 24.4, plt 41. Ascites 01/13/2013 10/19/2019 Overview: Patient denies known history of SBP. Denies current abdominal tenderness, and no large volume ascites with need for paracentesis 02/06/2013. Plan: - ? Diuretics - will D/W nephrology Hyperbilirubinemia 01/13/2013 4 Overview: Arthritis 09/17/2023 Cataract of both eyes 2023 CRVO (central retinal vein occlusion) 09/17/2023 Overview: OD Tributary (branch) retinal v ein occlusion, left eye, with macular edema 09/17/2023 Overview: OS Hypertensive retinopathy Overview: mild Amblyopia of left eye 2023 Cirrhosis of liver 1 Retinal edema 09/17/2023 documented as of this encounter (statuses as of 10/08/2023) [facility]01-30-2024 History of Past illness Narrative* Problem Noted Date Diagnosed Date Resolved Date Hyperosmolar hyperglycemic state (HHS) 09/17/2023 09/18/2023 Hyponatremia 09/17/2023 09/18/2023 Coronary artery disease due to lipid rich plaque 08/28/2023 09/17/2023 Last Assessment & Plan: Assessment: Recent complex staged PCI (last intervention 07/09/23 with stents - 4 of which are overlapping and 2 of them supplying the critical territory of the LAD) Patient on dual antiplatelet therapy with aspirin 81 mg and Plavix Of note, patient held Plavix for 5 days prior to liver biopsy on 08/20 (see elevated LFTs) Today, patient without cardiac complaints - reports feeling well overall Plan: - Cardiology consulted for recommendations regarding holding anti-platelet medication for possible biopsy or ERCP--> would be suboptimal given the above risk factors, would be high-risk for potentially fatal ST since he is still only 1.5 months out of his last PCI. - Re-start Plavix today - Continue to monitor - Continue aspirin 81 mg daily, atorvastatin, coreg, diltiazem Complication of liver transplant 08/27/2023 09/17/2023 S/P angioplasty with stent 08/06/2023 0 09/17/2023 Last Assessment & Plan: Assessment: on 06/05/2023- abnormal stress test and underwent a diagnostic LHC that showed severe stenosis in proximal to mid LAD, D1, dLCx, and pOM1. A staged PCI to the ostial to mid LAD with 2 overlapping stents and the mLAD to first diagonal 06/11/[address] Whitaker. A staged PCI on 07/09/2023 at [facility] by Dr. Whitaker, with PCI with stent placement to the ramus intermedius and OM2. On ASA 81mg (to be on indefinitely) and plavix for at least 12 months after stent placement. 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 Hyperkalemia 12/13/2021 12/18/2021 Last Assessment & Plan: Assessment: Improved, K+ is 4.9 on today's labs. Hyperkalemic trends with recent BMPs. PLAN: - Continuous tele monitoring ordered - Daily BMPs Ileus, postoperative 12/13/2021 022 Last Assessment & Plan: Assessment: POD3 ventral hernia repair with mesh. Now with bowel function. No nausea, vomiting. PLAN: - D/C NGT. - Advance to [facility]D - Continue to get OOB Ventral hernia, recurrent 12/12/2021 Thoracic aorta atherosclerosis 10/12/2021 09/17/2023 Last Assessment & Plan: Assessment: maximal dimension 4.0cm on echo 10/2019 Prostate disorder 05/18/2021 09/17/2023 Last Assessment & Plan: Assessment: no current tx Chronic lumbar pain 06/16/2020 09/17/19 24 Overview: Seeing Dr. Cdeeno (12/2020) Last Assessment & Plan: Assessment: following pain management Dr. 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 Last Assessment & Plan: Assessment: h/o DVT 2018, +lupus anticoagulant positive, on daily ASA Transaminitis 03/25/2019 03/27/2019 Pain in left foot 02/20/2019 10/25/2020 Chronic pain of both ankles 12/13/2017 09/17/2023 Balance problem 06/19/2016 09/17/2023 Last Assessment & Plan: Assessment; POA, stable - Patient reports trouble with balance since his liver transplant - neurologic exam significant for decreased pinprick in bilateral LE distal to mid-calf - folate 6.3, B12 532 - TSH 1.71 - HIV 1/2 nonreactive, hepatitis remote panel negative - STEFAN negative - ddx: peripheral neuropathy (nutritional, metabolic, medication side effect) vs cerebellar degeneration (prior EtOH use) - exam consistent with length dependent, small fiber nerve involvement most likely secondary to T2DM vs medications (immunosuppressants, sirolimus) PLAN: - Follow up peripheral neuropathy labs - PT/OT/PMR- acute rehab CKD (chronic kidney disease) stage 3, GFR 30-59 ml/min 06/19/2016 10/25/2020 Overview: Seeing Dr. Vipul Perez [facility] Prostate cancer screening 02/22/2016 Well adult exam 05/18/2014 10/19/2019 Overview: last done 08/24/2016 Thrombocytopenia 05/18/2014 10/19/2019 Last Assessment & Plan: Assessment: Platelet low since February 2019 per [facility] documentation No bleeding PLT 132-->106-->119-->114-->107-->124-->116-->110-->132 Plan: - Monitor Pl - Platelets stable and 132 at time of discharge Vertigo 05/18/2014 09/17/2023 Need for prophylactic immunotherapy 04/07/2014 10/19/2019 History of encephalopathy 02/06/2013 Overview: Secondary to cirrhosis. Currently alert, oriented x3, no signs of decompensated encephalopathy. Plan: - continue home regimen of lactulose, rifaximin and zinc Last Assessment & Plan: Assessment: hx secondary to cirrhosis Duodenal ulcer 02/06/2013 10/25/2020 Overview: Duodenal ulcers seen on EGD 01/31/13. Plan: Continue pantoprazole 40mg qday. Last Assessment & Plan: Assessment: h/o, no longer taking rx SUMMARY 01/13/2013 10/19/2019 Overview: Mr. 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 Mr. Sanon and his describe two normal bowel movements earlier in the day, and 3 episodes of blood in the stool since about 2 PM this afternoon. He describes the first episode as having fresh bright red blood larger in volume than several tablespoons which also mixed into the stool and toilet water. He had another episode earlier this evening, and a third episode upon admission to [facility] which was much less blood and mostly mixed into the stool. He denies hemoptysis, hematemesis, or other site of bleeding. Upon discharge 02/04/13 his hemoglobin was 8.6. In the ED tonight, Hgb is 8.4, Hct 24.4, plt 41. Ascites 01/13/2013 10/19/2019 Overview: Patient denies known history of SBP. Denies current abdominal tenderness, and no large volume ascites with need for paracentesis 02/06/2013. Plan: - ? Diuretics - will D/W nephrology Hyperbilirubinemia 01/13/2013 Overview: Arthritis 09/17/2023 Cataract of both eyes 2023 CRVO (central retinal vein occlusion) 09/17/2023 Overview: OD Tributary (branch) retinal v ein occlusion, left eye, with macular edema 09/17/2023 Overview: OS Hypertensive retinopathy Overview: mild Amblyopia of left eye 2023 Cirrhosis of liver 1 Retinal edema 09/17/2023 documented as of this encounter (statuses as of 10/09/2023) [facility]01-30-[facility] History of Past illness Narrative* Problem Noted Date Diagnosed Date Resolved Date Hyperosmolar hyperglycemic state (HHS) 09/17/2023 09/18/2023 Azotemia 09/17/2023 10/16/2023 Hyponatremia 09/17/2023 09/18/2023 Coronary artery disease due to lipid rich plaque 08/28/2023 09/17/2023 Last Assessment & Plan: Assessment: Recent complex staged PCI (last intervention 07/09/23 with stents - 4 of which are overlapping and 2 of them supplying the critical territory of the LAD) Patient on dual antiplatelet therapy with aspirin 81 mg and Plavix Of note, patient held Plavix for 5 days prior to liver biopsy on 08/20 (see elevated LFTs) Today, patient without cardiac complaints - reports feeling well overall Plan: - Cardiology consulted for recommendations regarding holding anti-platelet medication for possible biopsy or ERCP--> would be suboptimal given the above risk factors, would be high-risk for potentially fatal ST since he is still only 1.5 months out of his last PCI. - Re-start Plavix today - Continue to monitor - Continue aspirin 81 mg daily, atorvastatin, coreg, diltiazem Complication of liver transplant 08/27/2023 09/17/2023 S/P angioplasty with stent 08/06/2023 0 09/17/2023 Last Assessment & Plan: Assessment: on 06/05/2023- abnormal stress test and underwent a diagnostic LHC that showed severe stenosis in proximal to mid LAD, D1, dLCx, and pOM1. A staged PCI to the ostial to mid LAD with 2 overlapping stents and the mLAD to first diagonal 06/11/[address] Whitaker. A staged PCI on 07/09/2023 at [facility] by Dr. Whitaker, with PCI with stent placement to the ramus intermedius and OM2. On ASA 81mg (to be on indefinitely) and plavix for at least 12 months after stent placement. 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 Hyperkalemia 12/13/2021 12/18/2021 Last Assessment & Plan: Assessment: Improved, K+ is 4.9 on today's labs. Hyperkalemic trends with recent BMPs. PLAN: - Continuous tele monitoring ordered - Daily BMPs Ileus, postoperative 12/13/2021 022 Last Assessment & Plan: Assessment: POD3 ventral hernia repair with mesh. Now with bowel function. No nausea, vomiting. PLAN: - D/C NGT. - Advance to CLD - Continue to get OOB Ventral hernia, recurrent 12/12/2021 Thoracic aorta atherosclerosis 10/12/2021 09/17/2023 Last Assessment & Plan: Assessment: maximal dimension 4.0cm on echo 10/2019 Prostate disorder 05/18/2021 09/17/2023 Last Assessment & Plan: Assessment: no current tx Chronic lumbar pain 06/16/2020 09/17/19 24 Overview: Seeing Dr. Cedeno (12/2020) Last Assessment & Plan: Assessment: following pain management Dr. Cedeno Bilateral leg edema 01/22/2020 09/17/19 24 Metabolic acidosis 11/25/2019 Medication management 05/18/20192019 Hyperkalemia 04/24/2019 10/25/2020 Last Assessment & Plan: K 5.2 at time of discharge, likely elevated in setting of NASIR on CKD Patient also stated that he was eating potatoes with every meal because that was what they were giving him He has had hyperkalemia in the past PLAN: - Switched to renal diet - Educated patient on what foods to avoid - Recheck BMP on Saturday at PCP follow up appointment for monitoring of K History of deep venous throm bosis (DVT) of distal vein of right lower extremity 04/06/2019 Overview: 02/2019: was to be on penitentiary anticoagulation. 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 Last Assessment & Plan: Assessment: h/o DVT 2018, +lupus anticoagulant positive, on daily ASA Transaminitis 03/25/2019 03/27/2019 Pain in left foot 02/20/2019 10/25/2020 Chronic pain of both ankles 12/13/2017 09/17/2023 Balance problem 06/19/2016 09/17/2023 Last Assessment & Plan: Assessment; POA, stable - Patient reports trouble with balance since his liver transplant - neurologic exam significant for decreased pinprick in bilateral LE distal to mid-calf - folate 6.3, B12 532 - TSH 1.71 - HIV 1/2 nonreactive, hepatitis remote panel negative - STEFAN negative - ddx: peripheral neuropathy (nutritional, metabolic, medication side effect) vs cerebellar degeneration (prior EtOH use) - exam consistent with length dependent, small fiber nerve involvement most likely secondary to T2DM vs medications (immunosuppressants, sirolimus) PLAN: - Follow up peripheral neuropathy labs - PT/OT/PMR- acute rehab CKD (chronic kidney disease) stage 3, GFR 30-59 ml/min 06/19/2016 10/25/2020 Overview: Seeing Dr. Vipul Perez [facility] Prostate cancer screening 02/22/2016 Well adult exam 05/18/2014 10/19/2019 Overview: last done 08/24/2016 Thrombocytopenia 05/18/2014 10/19/2019 Last Assessment & Plan: Assessment: Platelet low since February 2019 per Epic documentation No bleeding PLT 132-->106-->119-->114-->107-->124-->116-->110-->132 Plan: - Monitor Pl - Platelets stable and 132 at time of discharge Vertigo 05/18/2014 09/17/2023 Need for prophylactic immunotherapy 04/07/2014 10/19/2019 History of encephalopathy 02/06/2013 Overview: Secondary to cirrhosis. Currently alert, oriented x3, no signs of decompensated encephalopathy. Plan: - continue home regimen of lactulose, rifaximin and zinc Last Assessment & Plan: Assessment: hx secondary to cirrhosis Duodenal ulcer 02/06/2013 10/25/2020 Overview: Duodenal ulcers seen on EGD 01/31/13. Plan: Continue pantoprazole 40mg qday. Last Assessment & Plan: Assessment: h/o, no longer taking rx SUMMARY 01/13/2013 10/19/2019 Overview: Mr. 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 Mr. Sanon and his describe two normal bowel movements earlier in the day, and 3 episodes of blood in the stool since about 2 PM this afternoon. He describes the first episode as having fresh bright red blood larger in volume than several tablespoons which also mixed into the stool and toilet water. He had another episode earlier this evening, and a third episode upon admission to [facility] which was much less blood and mostly mixed into the stool. He denies hemoptysis, hematemesis, or other site of bleeding. Upon discharge 02/04/13 his hemoglobin was 8.6. In the ED tonight, Hgb is 8.4, Hct 24.4, plt 41. Ascites 01/13/2013 10/19/2019 Overview: Patient denies known history of SBP. Denies current abdominal tenderness, and no large volume ascites with need for paracentesis 02/06/2013. Plan: - ? Diuretics - will D/W nephrology Hyperbilirubinemia 01/13/2013 Overview: Arthritis 09/17/2023 Cataract of both eyes 2023 CRVO (central retinal vein occlusion) 09/17/2023 Overview: OD Tributary (branch) retinal v ein occlusion, left eye, with macular edema 09/17/2023 Overview: OS Hypertensive retinopathy Overview: mild Amblyopia of left eye 2023 Cirrhosis of liver Retinal edema 09/17/2023 documented as of this encounter (statuses as of 10/17/2023) [facility]01-30-2024 History of Past illness Narrative* Problem Noted Date Diagnosed Date Resolved Date Hyperosmolar hyperglycemic state (HHS) 09/17/2023 09/18/2023 Azotemia 09/17/2023 10/16/2023 Hyponatremia 09/17/2023 09/18/2023 Coronary artery disease due to lipid rich plaque 08/28/2023 09/17/2023 Last Assessment & Plan: Assessment: Recent complex staged PCI (last intervention 07/09/23 with stents - 4 of which are overlapping and 2 of them supplying the critical territory of the LAD) Patient on dual antiplatelet therapy with aspirin 81 mg and Plavix Of note, patient held Plavix for 5 days prior to liver biopsy on 08/20 (see elevated LFTs) Today, patient without cardiac complaints - reports feeling well overall Plan: - Cardiology consulted for recommendations regarding holding anti-platelet medication for possible biopsy or ERCP--> would be suboptimal given the above risk factors, would be high-risk for potentially fatal ST since he is still only 1.5 months out of his last PCI. - Re-start Plavix today - Continue to monitor - Continue aspirin 81 mg daily, atorvastatin, coreg, diltiazem Complication of liver transplant 08/27/2023 09/17/2023 S/P angioplasty with stent 08/06/2023 0 09/17/2023 Last Assessment & Plan: Assessment: on 06/05/2023- abnormal stress test and underwent a diagnostic LHC that showed severe stenosis in proximal to mid LAD, D1, dLCx, and pOM1. A staged PCI to the ostial to mid LAD with 2 overlapping stents and the mLAD to first diagonal 06/11/[address] Whitaker. A staged PCI on 07/09/2023 at [facility] by Dr. Whitaker, with PCI with stent placement to the ramus intermedius and OM2. On ASA 81mg (to be on indefinitely) and plavix for at least 12 months after stent placement. 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 Hyperkalemia 12/13/2021 12/18/2021 Last Assessment & Plan: Assessment: Improved, K+ is 4.9 on today's labs. Hyperkalemic trends with recent BMPs. PLAN: - Continuous tele monitoring ordered - Daily BMPs Ileus, postoperative 12/13/2021 022 Last Assessment & Plan: Assessment: POD3 ventral hernia repair with mesh. Now with bowel function. No nausea, vomiting. PLAN: - D/C NGT. - Advance to CLD - Continue to get OOB Ventral hernia, recurrent 12/12/2021 Thoracic aorta atherosclerosis 10/12/2021 09/17/2023 Last Assessment & Plan: Assessment: maximal dimension 4.0cm on echo 10/2019 Prostate disorder 05/18/2021 09/17/2023 Last Assessment & Plan: Assessment: no current tx Chronic lumbar pain 06/16/2020 09/17/19 24 Overview: Seeing Dr. Cedeno (12/2020) Last Assessment & Plan: Assessment: following pain management Dr. 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 Last Assessment & Plan: Assessment: h/o DVT 2018, +lupus anticoagulant positive, on daily ASA Transaminitis 03/25/2019 03/27/2019 Pain in left foot 02/20/2019 10/25/2020 Chronic pain of both ankles 12/13/2017 09/17/2023 Balance problem 06/19/2016 09/17/2023 Last Assessment & Plan: Assessment; POA, stable - Patient reports trouble with balance since his liver transplant - neurologic exam significant for decreased pinprick in bilateral LE distal to mid-calf - folate 6.3, B12 532 - TSH 1.71 - HIV 1/2 nonreactive, hepatitis remote panel negative - STEFAN negative - ddx: peripheral neuropathy (nutritional, metabolic, medication side effect) vs cerebellar degeneration (prior EtOH use) - exam consistent with length dependent, small fiber nerve involvement most likely secondary to T2DM vs medications (immunosuppressants, sirolimus) PLAN: - Follow up peripheral neuropathy labs - PT/OT/PMR- acute rehab CKD (chronic kidney disease) stage 3, GFR 30-59 ml/min 06/19/2016 10/25/2020 Overview: Seeing Dr. Vipul Perez [facility] Prostate cancer screening 02/22/2016 Well adult exam 05/18/2014 10/19/2019 Overview: last done 08/24/2016 Thrombocytopenia 05/18/2014 10/19/2019 Last Assessment & Plan: Assessment: Platelet low since February 2019 per [facility] documentation No bleeding PLT 132-->106-->119-->114-->107-->124-->116-->110-->132 Plan: - Monitor Pl - Platelets stable and 132 at time of discharge Vertigo 05/18/2014 09/17/2023 Need for prophylactic immunotherapy 04/07/2014 10/19/2019 History of encephalopathy 02/06/2013 Overview: Secondary to cirrhosis. Currently alert, oriented x3, no signs of decompensated encephalopathy. Plan: - continue home regimen of lactulose, rifaximin and zinc Last Assessment & Plan: Assessment: hx secondary to cirrhosis Duodenal ulcer 02/06/2013 10/25/2020 Overview: Duodenal ulcers seen on EGD 01/31/13. Plan: Continue pantoprazole 40mg qday. Last Assessment & Plan: Assessment: h/o, no longer taking rx SUMMARY 01/13/2013 10/19/2019 Overview: Mr. 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 Mr. Sanon and his describe two normal bowel movements earlier in the day, and 3 episodes of blood in the stool since about 2 PM this afternoon. He describes the first episode as having fresh bright red blood larger in volume than several tablespoons which also mixed into the stool and toilet water. He had another episode earlier this evening, and a third episode upon admission to [facility] which was much less blood and mostly mixed into the stool. He denies hemoptysis, hematemesis, or other site of bleeding. Upon discharge 02/04/13 his hemoglobin was 8.6. In the ED tonight, Hgb is 8.4, Hct 24.4, plt 41. Ascites 01/13/2013 10/19/2019 Overview: Patient denies known history of SBP. Denies current abdominal tenderness, and no large volume ascites with need for paracentesis 02/06/2013. Plan: - ? Diuretics - will D/W nephrology Hyperbilirubinemia 01/13/2013 Overview: Arthritis 09/17/2023 Cataract of both eyes 2023 CRVO (central retinal vein occlusion) 09/17/2023 Overview: OD Tributary (branch) retinal v ein occlusion, left eye, with macular edema 09/17/2023 Overview: OS Hypertensive retinopathy Overview: mild Amblyopia of left eye 2023 Cirrhosis of liver 1 Retinal edema 09/17/2023 documented as of this encounter (statuses as of 10/24/2023) [facility]01-30-2024 NoteHNO ID: [id number] Author: JONAH ALANIZ MD Service: Critical Care Author Type: Physician Type: Progress Notes Filed: 09/17/2023 11:09 Note Text: [facility] MEDICINE MEDICAL ICU PROGRESS NOTE SERVICE DATE: September 17, 2023 Admission Date: 09/16/2023 [facility] STAFF PHYSICIAN NOTE OF PERSONAL INVOLVEMENT IN CARE IMPRESSION: This is a 78 year old male with # Hyperglycemia # S/p Liver transplant # Immunocompromised patient # Acute on chronic anemia # CKD stage IV PLAN: >> Neuro: Patient is awake and alert, no gross focal deficits >> Pulm: On RA, denies any respiratory complaints. CXR with bibasilar atelectasis. IS and BPH >> CVS: HDS. Continue REGIONAL MARKETING DIRECTOR cardiac medications. Check US RLE >> ID: No evidence of infection, hold off Abx. >> Renal: CKD stable. Monitor SCr and BUN. Replete electrolytes. >> GI: Advance diet as tolerated. >> Endo: Consult Endocrine. Recheck A1C. Stop Insulin Gtt. Accuchecks and SSI per protocol >> Heme: Noted stable counts. Monitor >> PPX: DVT and GI PPX addressed >> PT/OT: Ordered >> Dispo: Ok to transfer to [facility] Patient/Family Updated: Patient, Isaias Sanon, and Patient's Next of Kin/Point of Contact, SO, updated regarding the goals of care, medical plan for the day, cosmetic sales consultant recommendations, medical disposition and current medical condition/prognosis as and if clinically indicated. All questions and concerns were answered and addressed at this juncture. They were notified on September 17, 2023 at 11:08 AM . The duration of the conversation was 8 minutes. Day #: 1 in the MICU. OBJECTIVE: HPI: This is a 78 year old male with a PMHx significant for HTN, HLD, CKD, CHF, ICH, CAD s/p PCI x6 stents (07/09/23), AAA, DM2 (A1C 6.3%), CKD stage 4, duodenal ulcer c/b GIB, GERD, lupus anticoagulant syndrome, DVT s/p IVF filter (2018), hyperparthyroidism, thombocytopenia and cirrhosis 2/2 ETOH abuse and hemochromatosis c/b hepatic encephalopathy/ascites, s/p liver transplant (2012). Of note, he was recently admitted to [facility] transplant service 08/27-08/30 for progressively increasing LFTs. He was suppose to have a liver biopsy and ERCP performed, but cardiology was uncomfortable holding the patient's dual antiplatlet therapy for the liver biopsy given his recent stent placements. During his hospitalization he required 1U PRBC, had his rapamune and prednisone increased, and losartan was added to his BP regimen. He was also recently seen in his PCP's office on 09/06 for an URI. He was diagnoised with Bronchitis and started on a course of cefadroxil. The patient presents today, 09/17/23 to the [facility] ED with complaints that his blood surgar has been elevated. Per pt, he had outpatient labs performed and his blood glucose was over 500, so he was advised to come to the ED for evaluation. Upon lab work, his glucose was found to be 788. He will be admitted to the ICU for further work-up and mangement of Hyperglycemia. ED Work-Up: - BNP 31,884 - Afebrile. No leukocytosis. - Anemia, Hgb: 8.1. Thrombocytopenia, Plt: 74 - Glucose: 788. Hyponatremic: 133. Negative for Ketones. Recieved 5U SQ Admelog. 1.5L NSB and was started on an insulin gtt. - CXR: Mild basilar density greater on the left. This may reflect atelectasis and/or chronic parenchymal change. Consider superimposed aspiration/infection in the appropriate clinical setting. Suspected trace effusion. - COVID, Influenza A/B, RSV negative. Upon arrival to ICU, pt is AOx3. He denies CP, palpitations, fever, chills. He states he has exertional SOB and has been getting very fatigued when attempting to ambulate. His notes he has been wheezing recently and has been coughing up clear sputum. He has noticed increased LE edema recently. He states he does not take SQ insulin or medication at home and rarely checks his blood sugar. Code status discussed at bedside. The patient would like to be a FULL CODE, okay with intubation. 09/17/2023 -- Patient seen and examined, with at bedside. Feels better. On RA. VSS. Denies active complaints. Eating Breakfast. Insulin gtt stopped earlier this morning. VITAL SIGNS (last 24hrs min/max): Patient Vitals for the past 24 hrs: BP Temp Temp src Pulse Resp SpO2 Height Weight 09/17/23 1000 154/67 -- -- 65 17 97 % -- -- 09/17/23 0900 151/68 -- -- 64 21 99 % -- -- 09/17/23 0807 160/72 -- -- 66 -- -- -- -- 09/17/23 0800 160/72 36.5 ?C (97.7 ?F) Oral 63 (!) 36 99 % -- -- 09/17/23 0715 171/75 36.4 ?C (97.6 ?F) Oral 62 30 99 % -- -- 09/17/23 0600 167/69 -- -- 65 24 99 % -- 93.9 kg (207 lb 0.2 oz) 09/17/23 0500 150/71 -- -- 64 28 99 % -- -- 09/17/23 0400 176/72 -- -- 66 22 99 % -- -- 09/17/23 0320 -- 36.4 ?C (97.6 ?F) -- -- -- -- -- -- 09/17/23 0300 157/66 -- -- 67 26 98 % -- -- 09/17/23 0 (more content not included)...[facility] [id number] NoteHNO ID: [id number] Author: MEME ORONA RN Service: ? Author Type: Registered Nurse Type: Nursing Progress Note Filed: 09/17/2023 03:39 Note Text: 0300: assumed care of [facility] [id number] NoteHNO ID: [id number] Author: JOSE GOLDBERG MD Service: eHospital Author Type: Anesthesiologist Type: Progress Notes Filed: 09/17/2023 00:25 Note Text: eHospital Provider Note Call Initiation By: Bedside Caregiver: Provider Primary Reason for Call: Admission to ICU I was contacted by Dr. Singh regarding ICU admission for this 78 year old male with hyperglycemia. In brief, the patient was found on routine blood work to have an elevated blood glucose reading. The patient is not in an acidotic state. The BHB level is low. The patient is hemodynamically stable. Of note, the patient is on prednisone as part of his liver transplant medication regimen. Suggested plan: I accepted the patient to the ICU for initation of an insulin gtt. I see that the NT-proBNP level is 31k, but the patient may need gentle fluid resuscitation given the current serum sodium level of 133 with a blood glucose of 788. Consider holding losartan for now. Continue DAPT given his recent cardiac intervention: refer to outpatient note from 09/09/23. I discussed this patient with the Flow Match Sofa Cutter - Lawrence VILLALOBOS SIGNATURE: Jose Goldberg MD PATIENT NAME: Isaias Sanon DATE: September 17 2023 TIME: 12:09 [id number] NoteHNO ID: [id number] Author: NATHALY JONES RT(R) Service: ? Author Type: [place] [employer] Type: Progress Notes Filed: 09/17/2023 00:00 Note Text: Radiology Service Progress Note PATIENT NAME: Isaias Sanon DATE OF SERVICE: September 17, 2023 TIME: 12:00 AM PATIENT IDENTITY VERIFICATION COMPLETED USING TWO (2) IDENTIFIERS: Name and Date of confirmed by patient verbally. FALL SCREENING: Has the patient had 2 falls in the last year or 1 fall with injury or currently using an Ambulatory Assistive Device (Walker, Cane, Wheelchair, Crutches, etc.)? No PATIENT GENDER DATA: Male PATIENT RELEVANT IMPLANT DATA REVIEWED: Not Applicable PATIENT PRESENTS WITH AN IMPLANTABLE OR ATTACHED MANAGER DOMESTIC: No RADIOLOGY DEPARTMENT: General X-ray: Exam(s) Completed: Chest X-Ray PERIPHERAL IV DATA: Not applicable SIGNED BY: RT Valeria(R) September 17, 2023 12:00 [facility] [id number] Miscellaneous Notes* Telephone Encounter - Brittney Benitez RN - 08/01/2023 9:45 AM EST Nathaly Neville CNP reviewed patient's lab work with Dr. Zarate, who ordered for MRCP to be done instead of biopsy. Soonest MRCP at any location 09/03/23. I spoke with Dr. Zarate, who ordered for patient to be admitted to the hospital on Saturday, 08/05, for MRCP, and if necessary, biopsy. Patient to hold plavix starting with tomorrow's dose, and continue low dose aspirin per cardiology request. Repeat lab work tomorrow. I called and spoke with both patient's , and daughter Amberly. They state their understanding of plan. Admission called into admitting, and inpatient team notified. CLIFFORD Lund RN (Cassie), [facility] Liver Binder Operator * Telephone Encounter - Brittney Benitez RN - 07/31/2023 4:47 PM EST I spoke with Dr. Dawson, who recommends holding Plavix a total of 7 days prior to biopsy, and continuing low dose aspirin. Notified Nathaly Neville CNP, who states she will send biopsy order. CLIFFORD Lund RN (Cassie), [facility] Liver Binder Operator * Telephone Encounter - Brittney Benitez RN - 07/31/2023 3:50 PM EST I reviewed patient's liver ultrasound with Nathaly Neville CNP, who ordered Amylase and Lipase for patient. I called and reviewed this with patient's daughter, who understands this needs to be drawn with the next lab work. Staff message sent to patient's cardiology team requesting guidance for holding Plavix/aspirin. CLIFFORD Lund RN (Cassie), [facility] Liver Binder Operator * Telephone Encounter - Brittney Benitez RN - 07/30/2023 11:49 AM EST Patient is scheduled for liver vascular ultrasound, I called patient's daughter and provided time and location. CLIFFORD Lund RN (Cassie), [facility] Liver Binder Operator * Telephone Encounter - Brittney Benitez RN - 07/30/2023 9:27 AM EST I reviewed patient's labs with Nathaly Neville CNP, who ordered for patient to have biopsy and liver vascular ultrasound. We reviewed that patient is newly on Plavix, also on aspirin, will need cardiology input on best way to go about stopping for biopsy, and will get ultrasound in the meantime. I called and spoke with patient's daughter. I advised her of the above. She is concerned this meanspatient's liver isn't working/failing. I reviewed that biopsy is looking for rejection, reviewed possible rejections treatments with her should that be the case. Provided emotional support. I sent a message to Dr. Whitaker requesting direction on holding plavix/aspirin for biopsy. Brittney Benitez RN (Cassie), BSN, [facility] Liver Binder Operator * Telephone Encounter - Abbey Velez II - 07/29/2023 4:55 PM EST Ira - patient daughter called regarding elevated labs. Please give Amberly a return call documented in this encounterMer[facility]12-08-2023 Miscellaneous Notes* Addendum Note - Antoine Estrada RN - 07/26/2023 10:13 AM ESTAddended by: ANTOINE ESTRADA on: 07/26/2023 10:13 AM Modules accepted: Orders * Telephone Encounter - Antoine Estrada RN - 07/26/2023 9:50 AM EST Late Entry: LFTs continue to trend up and per Amberly when patient had cardiac stents placed a few weeks ago they had a difficult time managing his BP (was high during admission). Amberly would prefer to hold off on biopsy at this time and would prefer to repeat labs since he is on plavix for recent cardiac stent placement. I reviewed labs and patient updated with Nathaly Neville CNP who advised we can repeat labs in one week but if next set of labs are elevated, he will need a liver vasc US and biopsy. We will need to check with cards at that time if plavix can be safely held for the biopsy. I returned call to Amberly and reviewed POC above. Amberly is in agreement of this plan and will discuss with her father. Antoine Estrada RN, BSN, [facility] Liver Binder Operator * Telephone Encounter - Antoine Estrada RN - 07/25/2023 5:05 PM EST Spoke with daughter, Amberly, note TF. Antoine Estrada RN, BSN, [facility] Liver Binder Operator documented in this encounterMercy Health [facility]12-07-2023 History of Present illness Narrative* Ginette Dee APRN.WILFREDO - 07/25/2023 10:31 AM EST Chief Complaint Patient presents with: Follow Up: Leg edema- right leg HPI Isaias Sanon is a 78 year old male who presents here today for Above Complaints.. Patient presents for right lower extremity edema. Patient reports improvement in swelling. Past medical history, appointments, medications, allergies reviewed. Previous Medical History PAST MEDICAL HISTORY Diagnosis Date Abdominal hernia without obstruction and without gangrene 06/19/2016 Advance directive discussed with patient 06/06/2022 Discussed 05/2022 Amblyopia of left eye Anemia of renal disease 11/25/2019 Anemia of renal disease 11/25/2019 Arthritis Ascites 01/13/2013 Patient denies known history of SBP. Denies current abdominal tenderness, and no large volume ascites with need for paracentesis 02/06/2013. Plan: - ? Diuretics - will D/W nephrology Balance problem 06/19/2016 Bilateral leg edema 01/22/2020 BRVO (branch retinal vein occlusion) OS Cataract of both eyes Central retinal vein occlusion with macular edema of right eye Chronic lumbar pain 06/16/2020 Chronic pain of both ankles 12/13/2017 CKD (chronic kidney disease) stage 3, GFR 30-59 ml/min ([facility]) 06/19/[address] Vipul Perez [facility] CKD (chronic kidney disease) stage 4, GFR 15-29 ml/min ([facility]) 06/19/[address] 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 Plan: Continue pantoprazole 40mg qday. Elevated prostate specific antigen (PSA) 10/19/2016 Normal 10/2017 with free PSA at 44% Essential hypertension 05/18/2014 11/08/2014: Home BP Cuff Validated. Home BP: 167/94 pulse 79. Office BP: 157/91 pulse 76. Gastroesophageal reflux disease without esophagitis 08/24/2015 GIB (gastrointestinal bleeding) 01/13/2013 Patient presents with three episodes of BRBPR onset around 2pm 02/06/2013. He endorses a history of BRBPR during an admission at [facility] in December 2012 for which he states no workup or colonoscopy wasperformed. During his last admission at [facility] he endorses having passed old blood , and underwent EGD 01/31/13 showing a small polyp/hypertrophied fold at the cardia, severe portal hypertensive gastropathy in the entire stomach, and multiple superficial duodenal ulcers. EGD EUS performed 02/03/13 showed several portal hypertensive gastropathy, and normal endoscopic ultrasound examination of the previous area of concern (polyp vs. gastric fold). He was started on PPI BID and discharged 02/04/13 at which time hemoglobin was 8.6. In the ED 02/06/13, Hgb is 8.4, Hct 24.4, plt 41. Last colonoscopy was 2 years ago per patient, and he reports normal findings to be repeated in 2014. Etiologies of current episode includes internal hemorrhoids (no external hemorrhoids seen on examination), diverticular bleeding, AVM, varice [place] filter in place 04/06/2019 History of alcohol abuse Quit 2011 History of cirrhosis of liver Secondary to alcohol abuse and hemochromatosis. Sees Dr. Doss (at [facility]): Secondary to alcohol abuse and hemochromatosis, currently on transplant list. MELD Score: 35 Plan: - continue homemedications: nadolol, norfloxacin, zinc, lactulose, rifaximin, folic acid. 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 Currently alert, oriented x3, no signs of decompensated encephalopathy. Plan: - continue home regimen of lactulose, rifaximin and zinc History of hemochromatosis 08/24/2015 Has not been an issue since liver transplant. Hyperbilirubinemia 01/13/2013 Hypertensive retinopathy mild ICH (intracerebral hemorrhage) (HCC) Imbalance 06/01/2014 Noted at PT eval on 05/31/2014. Incisional hernia 04/07/2014 Liver transplanted (HCC) 04/07/[address] 06/06/2022 DPA: Brittani () Lupus anticoagulant syndrome (HCC) 10/28/2019 Medicare annual wellness visit, subsequent 05/18/2021 Medicare part B: Not able to find Last done: 05/18/2021 Mixed hyperlipidemia 06/23/2014 Obesity, Class I, BMI 30-34.9 10/27/2019 Osteopenia 11/26/2013 Other proteinuria 10/21/2017 Seeing renal Reactive depression 05/02/2023 Sertraline started 04/2023 Retinal edema S/P hernia repair 12/13/2021 Secondary hyperparathyroidism of renal origin (HCC) 10/19/2019 Thoracic aorta atherosclerosis (HCC) 10/12/2021 Thrombocytopenia (HCC) 05/18/2014 Tributary (branch) retinal vein occlusion, left eye, with macular edema Vertigo 05/18/2014 Vitreous degeneration Previous Surgical History PAST SURGICAL HISTORY Procedure Laterality Date APPENDECTOMY HX 02/15/2013 AVASTIN (BEVACIZUMAB) 1.25MG INTRAVITREAL INJECTION OD (RIGHT EYE) Right 04/18/2023 LAST AVASTIN (BEVACIZUMAB) 1.25MG INTRAVITREAL INJECTION OD (RIGHT EYE) Right 04/04/2016 CHOLECYSTECTOMY HX 02/15/2013 COLONOSCOPY 02/08/2013 repeat 10 yrs EYLEA (AFLIBERCEPT) 2MG INTRAVITREAL INJECTION OD (RIGHT EYE) Right 04/07/2014 intravitreal injection, Eylea OD FECAL OCCULT BLOOD TEST 09/13/2016 negative MIDLINE INSERTION/CONSULT 02/13/2013 PAST SURGICAL HISTORY OF Tooth extraction PAST SURGICAL HISTORY OF 02/15/2013 liver transplant PAST SURGICAL HISTORY OF 2004 vein stripping Family History FAMILY HISTORY Problem Relation Age of Onset other (MVA) Mother killed other (mva) Father killed other (hemachromatosis) Sister of breast ca at age 75 No Known Problems Sister COPD Sister other (hemachromatosis) Brother does not have any liver problems other (Bone Cancer) Brother No Known Problems Brother No Known Problems Maternal Grandmother No Known Problems Maternal Grandfather No Known Problems Paternal Grandmother No Known Problems Paternal Grandfather No Ocular Disease No Family History nothing known of Anesthesia Problems No Family History Patient Allergies ALLERGIES Allergen Reactions Aldactone [Spironol* Other: See Comments Hyperkalemia Seasonal Allergies Cough Sneezing and watering eyes Current Medications Current Outpatient Medications on File Prior to Visit Medication Sig furosemide (LASIX) 20 mg tablet Take one tab a day in addition to the 40 mg lasix for 3-5 days withweight at or above 198 lbs till weight is at or below 195 lbs. aspirin 81 mg chewable tablet Take 1 tablet by mouth once daily. clopidogrel (PLAVIX) 75 mg tablet Take 1 tablet by mouth once daily. sodium bicarbonate 650 mg tablet take 1 tablet by mouth three times daily carvedilol (COREG) 25 mg tablet Take 1 tablet by mouth two times a day. atorvastatin (LIPITOR) 40 mg tablet Take 1 tablet by mouth daily at bedtime. azelastine 0.1% nasal spray Use 2 Sprays in each nostril as needed. furosemide (LASIX) 40 mg tablet Take 1 tablet by mouth once daily. sertraline (ZOLOFT) 25 mg tablet Take 1 tablet by mouth once daily. dext 70/polycarbophil/peg/NaCl (ARTIFICIAL TEAR SOLUTION OPHTHALMIC) Use 1 Drop in eyes as needed. sirolimus (RAPAMUNE) 0.5 mg tablet Take 1 tablet by mouth once daily. [employer] PAP refill dilTIAZem CD (CARDIZEM CD, CARTIA XT) 240 mg 24 hr capsule Take 1 capsule by mouth once daily. Blood Pressure Monitor 1 Each twice daily. acetaminophen (TYLENOL) 500 mg tablet Take 2 tablets by mouth every 6 hours as needed for pain. gabapentin (NEURONTIN) 100 mg capsule Take 100 mg by mouth once daily. pyridoxine, vitamin B6, (VITAMIN B6) 100 mg tablet Take 1 tablet by mouth once daily. Cholecalciferol, Vitamin D3, 5,000 unit tab Take 1 tablet by mouth once daily. Current Facility-Administered Medications on File Prior to Visit Medication perflutren lipid microspheres 1.3 mL in NaCl (PF) 0.9% 10 mL injection (DEFINITY) sodium chloride 0.9 % (flush) 10 mL (BD POSIFLUSH) Social History Social History Tobacco Use Smoking status: Never Smokeless tobacco: Never Vaping Use Vaping Use: Never used Substance Use Topics Alcohol use: No Comment: last drink was in July 2012 Drug use: No Review of Symptoms REVIEW OF SYSTEMS SEE HPI EXAM: BP 152/71 Pulse 70 Resp 14 Wt 88.5 kg (195 lb) SpO2 96% BMI 30.54 kg/m General Appearance: Well appearing, alert, in no acute distress, well-hydrated, well nourished.. Lungs: Lungs clear to auscultation. No wheezing, rhonchi, rales.. Heart: RRR without murmur, gallop, or rubs. No ectopy. Extremities: Edema: minimal non pitting edema to right lower leg. Peripheral Pulses: Normal. Health Maintenance List BP Controlled (<130/80) due on 11/16/2022 Covid-19 Vaccine( season) due on 04/19/2023 DTaP,Tdap,Td Vaccine(2 - Td or Tdap) due on 06/20/2024 Shingrix Vaccine(1 of 2) due on 06/20/2024 HbA1C due on 12/23/2023 Diabetic Foot Exam due on 02/26/2024 LDL Cholesterol due on 06/24/2024 Annual PCP Team Chronic Disease Visit due on 07/17/2024 Hemoglobin/Hematocrit due on 07/17/2024 Dilated Retinal Exam due on 07/24/2024 Serum Creatinine due on 07/24/2024 Hepatitis B Vaccine Completed Influenza Vaccine Completed Advance Directive Discussion Completed RSV Vaccine Completed Hepatitis C Screening Completed Pneumococcal Vaccine: 65+ Completed HPV Vaccine Aged Out Colorectal Cancer Screening Discontinued ASSESSMENT/PLAN: 1. Edema of right lower extremity - ICD9: 782.3, ICD10: R60.0 -Improving. Continue additional lasix 20mg as needed for increased swelling or weight gain of [address] Banerjee if swelling worsens or no longer improves with additiion lasix or if developsshortness of breath, increased tiredness or chest pressure/pain. Ginette Dee APRN.DIRECTOR SOFTWARE QUALITY ASSURANCE documented in this encounterMercy Health [facility]12-06-2023 Instructions* Patient Instructions* Ender Pang MD - 07/24/2023 12:48 PM EST Post-Injection Patient Information You had an injection into the eye today. Tearing and some redness are common after an eye injection. If the eye feels irritated, try to keepit closed; some patients find that a mild pain medicine such as acetaminophen helps. If tearing or pain persists the next day, please call. The redness may take some days to a week to resolve. If you notice increasing pain, redness or blurred vision, please call the office. Loss of central or peripheral vision should prompt a call to us. Please call if you have any questions or concerns. For Questions or an Appointment, please call: [phone] Visit us online [email or web address]. documented in this encounterMercy Health Fairfield Hospital12-06-2023 History of Present illness Narrative* Ender Pang MD - 07/24/2023 12:44 PM EST h/o CVA 1. CRVO with macular edema Right eye - RIGHT: - s/p Eylea #3 (last 04/07/14, 11/26/13, 09/02/13) - s/p Avastin #4 (last 04/04/16, 01/12/16, 04/14/15) - VA stable - OCT stable trace IRF - Plan = Observation 2. BRVO Left eye with retinal edema - LEFT: - s/p Avastin #1 (04/18/23) - Vision worse - OCT increased fluid - Plan = Avastin Left eye - Risks, benefits and alternatives reviewed, including but not limited to: Decreased vision; Lose of vision, loss of the eye, no improvement in vision, and possible need for additional treatment. - Patient wishes to proceed 3. Cataracts Both Eyes - Consider cataract referral once edema under control 4. Amblyopia Left eye 5. HTN retinopathy - Still poorly controlled BP I have confirmed and edited as necessary the relevant ophthalmic history, ROS, and the clinical/neuro exam findings as obtained by others. I have seen and examined this patient. I have discussed the case and the management of this patient's care with the Resident/Fellow, if applicable. I also have reviewed and agree with the assessment and plan as stated above and agree with all of its relevant components on 07/24/2023 Ender Pang MD [facility] Endowed Chair of Ophthalmology Research Professor of Ophthalmology, [facility] Vitreoretinal Staff, [facility] [place] documented in this encounterMercy Health Fairfield Hospital12-06-2023 Instructions* Patient Instructions* Antoine Estrada RN - 07/24/2023 11:06 AM EST Continue same dose of Rapamune. Decrease liver transplant labs to every other month. Return to clinic in one year. Follow-up with Dr. Fontenot in August. It was a pleasure seeing you in our clinic today. Please feel free to contact our office with any further questions or concerns. Antoine Estrada RN, BSN, [facility] Liver Binder Operator documented in this encounterMercy Health Fairfield Hospital12-06-2023 Nurse Note* Antoine Estrada RN - 07/24/2023 9:36 AM EST [facility] Patient Report Isaias Sanon is being seen in follow up for [facility] post clinic. Transplanted on 02/15/2013 for hemochromatosis and ETOH . Donor type: DCD: yes/SKEET OPERATOR DBD:NO LD: No Crossmatch: T-cell: - / B-cell: - Induction: Thymo Bile duct: D-D Cava: Piggyback Serologies EBV Serology:+/+ CMV Serology +/+ HCV Serology: -/- HBV Serology: -/- HCC & post-op complications Hx of HCC prior to LT: No Next set of Protocol scans to be completed: NA Post op biliary complication: No Post op vascular complication: No Hx of rejection:No if yes, Type: none Date: NS Treatment: none Incisional hernia: Yes, previous repair Yes, Date of repair: 12/12/21, Immune suppression and graft funtion Immune Suppression History: Started and maintained on tacrolimus or Tacrolimus placed on hold due to renal function Current IS: Allograft function: Stable, labs per protocol every 2 months preferably on Saturday Renal Function: Worsening, has had dialysis education, but no access placed and dialysis has not been initiate. CMP: Glucose 139 07/17/2023 BUN 42 07/17/2023 Creatinine 3.45 07/17/2023 Sodium 141 07/17/2023 Potassium 4.2 07/17/2023 Chloride 104 07/17/2023 CO2 25 07/17/2023 Protein, Total 6.7 07/17/2023 Albumin 4.0 07/17/2023 Calcium 10.0 07/17/2023 Alkaline Phosphatase 101 07/17/2023 Bilirubin, Total 0.3 07/17/2023 AST 46 07/17/2023 ALT 74 07/17/2023 GGT Date Value Ref Range Status 05/20/2023 16 10 - 70 U/L Final Tacrolimus/FK506 Date Value Ref Range Status 01/29/2022 <2.0 (L) 5.0 - 20.0 ng/mL Final Comment: Drug concentration below assay detection limit. Please confirm drug regimen and cancel any standingorders for this drug level if the drug has been discontinued. Reference ranges and high/low indicator flags are provided as general guidelines only. The treating physician must determine appropriate target levels/dosing based on the specific clinical situation. Test performed by chemiluminescent immunoassay using [employer]. Health Maintenance Last Mamogram: NA Colonoscopy: last done - January2013 Colonoscopy: Results: repeat 10 years Dermatology (Last Office Visit): Date: 1-2 months ago, PCP does skin checks Bone Mineral Density (Last Completed): Not completed - Vitamin D 25 Hydroxy Date Value Ref Range Status 05/21/2019 41.5 31.0 - 80.0 ng/mL Final Comment: Classification of 25 OH Vitamin D status: Insufficiency/Moderate Deficiency: < or = 30 ng/mL Sufficiency/Optimal Levels: 31 to 80 ng/mL Toxicity: > 100 ng/mL Test performed by chemiluminescent immunoassay. Prostate Cancer Screening: Yes, Last PSA: 06/24/2023 PSA Date Value Ref Range Status 06/24/2023 2.21 <2.60 ng/mL Final Comment: Total PSA test methodology used is the Electrochemiluminescence Immunoassay by [employer]. Total PSA values by differing methodologies cannot be interchanged. Last Seen in [facility]: 02/18/2019 INTERVAL HISTORY General well being: Overall doing well. Had recent admission for cardiac stent placement. Appetite is fair, moving his bowels daily to every other day. Renal function remains elevated and he follows with Po Please call with any questions [phone] Thank you Antoine Estrada RN, BSN, [facility] Liver Binder Operator - Labs reviewed- in process today - IS Rapamune 0.5 mg no change - C scope due this year-->Cologuard sent - 07/17 labs bumped, recent cardiac stent placement (07/09- stable angina) - Annual skin check is up to date. - Dr. Fontenot appt. is coming up in August for CKD - RTC in 1 year w/ hepatology documented in this encounterMercy Health Fairfield Hospital11-30-2023 Miscellaneous Notes* Telephone Encounter - Antoine Estrada RN - 07/18/2023 2:50 PM EST Transaminases bumped up after recent hospitalization w/ cardiac stent placement. Labs r/w Nathaly Neville CNP who ordered no IS changes at this time and repeat labs in 2 weeks. I called daughter, Amberly who was aware of the elevated labs and reviewed POC to repeat labs in 2 weeks. Patient has LTC f/u next week and will repeat labs prior to clinic visit. If LFTs improving he will return to monthly labs. All questions answered, no further needs at this time. Antoine Estrada RN, BSN, [facility] Liver Binder Operator documented in this encounterMercy Health Fairfield Hospital11-29-2023 History of Present illness Narrative* Sanju Banerjee MD - 07/17/2023 7:05 PM EST Chief Complaint Patient presents with: Follow Up HPI Isaias Sanon is a 78 year old male who presents here today for follow up on stent placement at [facility] and released on 07/09/2023. Per patient the second stent placement went ok. He has been getting some swelling in the right leg.Not the left. He has not noted any increase shortness of breath or orthopnea. No chest pain or palpitations. Gets some shortness of breath with ambulating but still better then it had been prior to the stents being placed. Past medical history, appointments, medications, allergies reviewed. Previous Medical History PAST MEDICAL HISTORY Diagnosis Date Abdominal hernia without obstruction and without gangrene 06/19/2016 Advance directive discussed with patient 06/06/2022 Discussed 05/2022 Amblyopia of left eye Anemia of renal disease 11/25/2019 Arthritis Ascites 01/13/2013 Patient denies known history of SBP. Denies current abdominal tenderness, and no large volume ascites with need for paracentesis 02/06/2013. Plan: - ? Diuretics - will D/W nephrology Balance problem 06/19/2016 Bilateral leg edema 01/22/2020 BRVO (branch retinal vein occlusion) OS Cataract of both eyes Central retinal vein occlusion with macular edema of right eye Chronic lumbar pain 06/16/2020 Chronic pain of both ankles 12/13/2017 CKD (chronic kidney disease) stage 3, GFR 30-59 ml/min ([facility]) 06/19/[address] Vipul Perez [facility] CKD (chronic kidney disease) stage 4, GFR 15-29 ml/min ([facility]) 06/19/[address] 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 Plan: Continue pantoprazole 40mg qday. Elevated prostate specific antigen (PSA) 10/19/2016 Normal 10/2017 with free PSA at 44% Essential hypertension 05/18/2014 11/08/2014: Home BP Cuff Validated. Home BP: 167/94 pulse 79. Office BP: 157/91 pulse 76. Gastroesophageal reflux disease without esophagitis 08/24/2015 GIB (gastrointestinal bleeding) 01/13/2013 Patient presents with three episodes of BRBPR onset around 2pm 02/06/2013. He endorses a history of BRBPR during an admission at [facility] in December 2012 for which he states no workup or colonoscopy wasperformed. During his last admission at [facility] he endorses having passed old blood , and underwent EGD 01/31/13 showing a small polyp/hypertrophied fold at the cardia, severe portal hypertensive gastropathy in the entire stomach, and multiple superficial duodenal ulcers. EGD EUS performed 02/03/13 showed several portal hypertensive gastropathy, and normal endoscopic ultrasound examination of the previous area of concern (polyp vs. gastric fold). He was started on PPI BID and discharged 02/04/13 at which time hemoglobin was 8.6. In the ED 02/06/13, Hgb is 8.4, Hct 24.4, plt 41. Last colonoscopy was 2 years ago per patient, and he reports normal findings to be repeated in 2014. Etiologies of current episode includes internal hemorrhoids (no external hemorrhoids seen on examination), diverticular bleeding, AVM, varice [place] filter in place 04/06/2019 History of alcohol abuse Quit 2011 History of cirrhosis of liver Secondary to alcohol abuse and hemochromatosis. Sees Dr. Doss (at [facility]): Secondary to alcohol abuse and hemochromatosis, currently on transplant list. MELD Score: 35 Plan: - continue homemedications: nadolol, norfloxacin, zinc, lactulose, rifaximin, folic acid. 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 Currently alert, oriented x3, no signs of decompensated encephalopathy. Plan: - continue home regimen of lactulose, rifaximin and zinc History of hemochromatosis 08/24/2015 Has not been an issue since liver transplant. Hyperbilirubinemia 01/13/2013 Hypertensive retinopathy mild ICH (intracerebral hemorrhage) (HCC) Imbalance 06/01/2014 Noted at PT eval on 05/31/2014. Incisional hernia 04/07/2014 Liver transplanted (HCC) 04/07/[address] 06/06/2022 DPA: Brittani () Lupus anticoagulant syndrome (HCC) 10/28/2019 Medicare annual wellness visit, subsequent 05/18/2021 Medicare part B: Not able to find Last done: 05/18/2021 Mixed hyperlipidemia 06/23/2014 Obesity, Class I, BMI 30-34.9 10/27/2019 Osteopenia 11/26/2013 Other proteinuria 10/21/2017 Seeing renal Reactive depression 05/02/2023 Sertraline started 04/2023 Retinal edema S/P hernia repair 12/13/2021 Secondary hyperparathyroidism of renal origin (HCC) 10/19/2019 Thoracic aorta atherosclerosis (HCC) 10/12/2021 Thrombocytopenia (HCC) 05/18/2014 Tributary (branch) retinal vein occlusion, left eye, with macular edema Vertigo 05/18/2014 Vitreous degeneration Previous Surgical History PAST SURGICAL HISTORY Procedure Laterality Date APPENDECTOMY HX 02/15/2013 AVASTIN (BEVACIZUMAB) 1.25MG INTRAVITREAL INJECTION OD (RIGHT EYE) Right 04/18/2023 LAST AVASTIN (BEVACIZUMAB) 1.25MG INTRAVITREAL INJECTION OD (RIGHT EYE) Right 04/04/2016 CHOLECYSTECTOMY HX 02/15/2013 COLONOSCOPY 02/08/2013 repeat 10 yrs EYLEA (AFLIBERCEPT) 2MG INTRAVITREAL INJECTION OD (RIGHT EYE) Right 04/07/2014 intravitreal injection, Eylea OD FECAL OCCULT BLOOD TEST 09/13/2016 negative MIDLINE INSERTION/CONSULT 02/13/2013 PAST SURGICAL HISTORY OF Tooth extraction PAST SURGICAL HISTORY OF 02/15/2013 liver transplant PAST SURGICAL HISTORY OF 2004 vein stripping Family History FAMILY HISTORY Problem Relation Age of Onset other (MVA) Mother killed other (mva) Father killed other (hemachromatosis) Sister of breast ca at age 75 No Known Problems Sister COPD Sister other (hemachromatosis) Brother does not have any liver problems other (Bone Cancer) Brother No Known Problems Brother No Known Problems Maternal Grandmother No Known Problems Maternal Grandfather No Known Problems Paternal Grandmother No Known Problems Paternal Grandfather No Ocular Disease No Family History nothing known of Anesthesia Problems No Family History Patient Allergies ALLERGIES Allergen Reactions Aldactone [Spironol* Other: See Comments Hyperkalemia Seasonal Allergies Cough Sneezing and watering eyes Current Medications Current Outpatient Medications on File Prior to Visit Medication Sig aspirin 81 mg chewable tablet Take 1 tablet by mouth once daily. clopidogrel (PLAVIX) 75 mg tablet Take 1 tablet by mouth once daily. sodium bicarbonate 650 mg tablet take 1 tablet by mouth three times daily carvedilol (COREG) 25 mg tablet Take 1 tablet by mouth two times a day. atorvastatin (LIPITOR) 40 mg tablet Take 1 tablet by mouth daily at bedtime. azelastine 0.1% nasal spray Use 2 Sprays in each nostril as needed. furosemide (LASIX) 40 mg tablet Take 1 tablet by mouth once daily. sertraline (ZOLOFT) 25 mg tablet Take 1 tablet by mouth once daily. dext 70/polycarbophil/peg/NaCl (ARTIFICIAL TEAR SOLUTION OPHTHALMIC) Use 1 Drop in eyes as needed. sirolimus (RAPAMUNE) 0.5 mg tablet Take 1 tablet by mouth once daily. [employer] [facility] PAP refill dilTIAZem CD (CARDIZEM CD, CARTIA XT) 240 mg 24 hr capsule Take 1 capsule by mouth once daily. Blood Pressure Monitor 1 Each twice daily. acetaminophen (TYLENOL) 500 mg tablet Take 2 tablets by mouth every 6 hours as needed for pain. gabapentin (NEURONTIN) 100 mg capsule Take 100 mg by mouth once daily. Cholecalciferol, Vitamin D3, 5,000 unit tab Take 1 tablet by mouth once daily. pyridoxine, vitamin B6, (VITAMIN B6) 100 mg tablet Take 1 tablet by mouth once daily. Current Facility-Administered Medications on File Prior to Visit Medication perflutren lipid microspheres 1.3 mL in NaCl (PF) 0.9% 10 mL injection (DEFINITY) sodium chloride 0.9 % (flush) 10 mL (BD POSIFLUSH) Social History Social History Tobacco Use Smoking status: Never Smokeless tobacco: Never Vaping Use Vaping Use: Never used Substance Use Topics Alcohol use: No Comment: last drink was in July 2012 Drug use: No Review of Symptoms REVIEW OF SYSTEMS See HPI EXAM: BP 128/60 (BP Site: Right Arm, BP Position: Sitting, BP Cuff Size: Regular Adult) Pulse 64 Resp16 Wt 90.7 kg (200 lb) BMI 31.32 kg/m Last 6 Encounter Wt Readings: Date: Wt: 07/17/2023 90.7 kg (200 lb) 07/08/2023 91.2 kg (201 lb) 06/20/2023 89.8 kg (198 lb) 05/17/2023 89.4 kg (197 lb) 05/13/2023 88.5 kg (195 lb) 05/02/2023 93.4 kg (206 lb) General Appearance: Well appearing, alert, in no acute distress, well-hydrated, well nourished.. Neck: Supple, no adenopathy; thyroid symmetric, normal size, no bruits. Lungs: Lungs clear to auscultation. No wheezing, rhonchi, rales.. Heart: RRR without murmur, gallop, or rubs. No ectopy. Extremities: No deformities, skin discoloration, Good capillary refill. No edema on the left and subtle edema on the right. . Health Maintenance List BP Controlled (<130/80) due on 11/16/2022 Covid-19 Vaccine( season) due on 04/19/2023 DTaP,Tdap,Td Vaccine(2 - Td or Tdap) due on 06/20/2024 Shingrix Vaccine(1 of 2) due on 06/20/2024 HbA1C due on 12/23/2023 Diabetic Foot Exam due on 02/26/2024 Dilated Retinal Exam due on 05/16/2024 Annual PCP Team Chronic Disease Visit due on 06/20/2024 LDL Cholesterol due on 06/24/2024 Serum Creatinine due on 07/17/2024 Hemoglobin/Hematocrit due on 07/17/2024 Hepatitis B Vaccine Completed Influenza Vaccine Completed Advance Directive Discussion Completed RSV Vaccine Completed Hepatitis C Screening Completed Pneumococcal Vaccine: 65+ Completed HPV Vaccine Aged Out Colorectal Cancer Screening Discontinued Data reviewed Component Latest Ref Rng & Units 07/17/2023 WBC 3.70 - 11.00 k/uL 7.13 RBC 4.20 - 6.00 m/uL 3.08 (L) Hemoglobin 13.0 - 17.0 g/dL 8.8 (L) Hematocrit 39.0 - 51.0 % 28.3 (L) MCV 80.0 - 100.0 fL 91.9 MCH 26.0 - 34.0 pg 28.6 MCHC 30.5 - 36.0 g/dL 31.1 RDW-CV 11.5 - 15.0 % 14.4 Platelet Count 150 - 400 k/uL 134 (L) MPV 9.0 - 12.7 fL 9.4 Neut% % 72.0 Abs Neut (ANC) 1.45 - 7.50 k/uL 5.13 Lymph% % 12.5 Abs Lymph 1.00 - 4.00 k/uL 0.89 (L) [place]% % 9.3 Abs [place] <0.87 k/uL 0.66 Eosin% % 4.3 Abs Eosin <0.46 k/uL 0.31 Baso% % 0.8 Abs Baso <0.11 k/uL 0.06 Immature Gran % % 1.1 IMMATURE GRANS (ABS) <0.10 k/uL 0.08 NRBC /100 WBC 0.0 Absolute nRBC <0.01 k/uL <0.01 DTYPE Auto Protein, Total 6.3 - 8.0 g/dL 6.7 Albumin 3.9 - 4.9 g/dL 4.0 Calcium 8.5 - 10.2 mg/dL 10.0 Bilirubin, Total 0.2 - 1.3 mg/dL 0.3 Alkaline Phosphatase 38 - 113 U/L 101 AST 14 - 40 U/L 46 (H) ALT 10 - 54 U/L 74 (H) Glucose 74 - 99 mg/dL 139 (H) BUN 9 - 24 mg/dL 42 (H) Creatinine 0.73 - 1.22 mg/dL 3.45 (H) Sodium 136 - 144 mmol/L 141 Potassium 3.7 - 5.1 mmol/L 4.2 Chloride 97 - 105 mmol/L 104 CO2 22 - 30 mmol/L 25 Anion Gap 9 - 18 mmol/L 12 eGFR >=60 mL/min/1.73m 17 (L) Phosphorus 2.7 - 4.8 mg/dL 3.6 A/P ASSESSMENT/PLAN: 1. Congestive heart failure, unspecified HF chronicity, unspecified heart failure type (HCC) - ICD9: 428.0, ICD10: I50.9 (primary diagnosis) - patient to continue the lasix at 40 mg a day. Will add on lasix 20 mg a day for 3-5 days if weight goes above 198 with a goal to get base weight of 195 lbs. 2. Essential hypertension - ICD9: 401.9, ICD10: I10 - Controlled - Continue current medications - Recommend home blood pressure monitoring, to bring results to next visit - Encouraged sodium restriction, DASH or Mediterranean diet - Recommend regular aerobic exercise 3. Hypertensive kidney disease with stage 4 chronic kidney disease (HCC) - ICD9: 403.90, 585.4, ICD10: I12.9, N18.4 - see above. - will forward office not to renal. Patient's recent Hg was down to 8.8 and during the last renal visit it was mentioned Consider SERVANDO given hgb < 9 (previously fluctuating 9-10 with ferritin 800s, normal iron) Requested Prescriptions Signed Prescriptions Disp Refills furosemide (LASIX) 20 mg tablet 30 tablet 3 Sig: Take one tab a day in addition to the 40 mg lasix for 3-5 days with weight at or above 198 lbstill weight is at or below 195 lbs. F/u on 07/25/2023 with RUFUS to see if edema is better. Sanju Banerjee MD documented in this encounterCleveland [phone] Miscellaneous Notes* Telephone Encounter - Demetrius Landis RN - 07/12/2023 9:59 AM EST We are calling to check on you since you left the hospital yesterday. Are you having any medical concerns we can help you with today? Pt's denied pt having medical concerns at this time. Call Outcome All Clear Call Focus arythmia : false blood : false breath : false care : false chest : false education : false follow : false fyi : false gi : false incision : false infection : false medication : false na : false neuro : false other : true pain : false swelling : false PD nurse confirmed/verified patient's and full name. All clear. Closing statement given. Demetrius Landis RN documented in this encounterMer[facility] History of Present illness Narrative* Noman Fontenot MD - 07/08/2023 2:34 PM EST [facility] SERVICE DATE: 07/08/2023 SERVICE TIME: 2:34 PM PRIMARY CARE PHYSICIAN: Sanju Banerjee MD CHIEF COMPLAINT: Follow up of CKD HPI: Mr. Sanon is a 78 yo man with history of: -CKD -prediabetes -HTN -PSA elevation -Cirrhosis (EtOH, hemochromatosis) s/p liver transplant in 2012 on sirolimus -CAD, HFpEF Had recent cardiac catheterizations x 2 with re insertion of 2 stents, panned for another tomorrow (to reduce contrast load). Pending cardiac rehab: has had significant SOB thought by cards to be dueto HF, anemia, CAD. Last seen in kidney medicine 12/31/2022: at that time concerned he would need dialysis and due to LEedema had resumed lasix. Due to chronic anemia had consideration for SERVANDO. Medications: coreg 25mg BID, aspirin + plavix, diltiazem, lasix 40 mg daily, sirolimus, sodium bicarb 650mg TID, lipitor 40 mg daily. Currently: RLE swelling. Cr 3.22 (stable 3-> 4). Hgb 9.0, ferritin 862, tibc 31, iron 62. UA: protein 2+, 1+ glucose. Urine protein: Cr ratio 1.82, 1,058 alb: Cr, urine albumin: 697 Hba1c 6.3% (06/24/2023). On vitamin D 5000 units daily BP 135/57 and 178/68, HR 65. At home: 140/60s. PAST MEDICAL HISTORY: PAST MEDICAL HISTORY Diagnosis Date Abdominal hernia without obstruction and without gangrene 06/19/2016 Advance directive discussed with patient 06/06/2022 Discussed 05/2022 Amblyopia of left eye Anemia of renal disease 11/25/2019 Arthritis Ascites 01/13/2013 Patient denies known history of SBP. Denies current abdominal tenderness, and no large volume ascites with need for paracentesis 02/06/2013. Plan: - ? Diuretics - will D/W nephrology Balance problem 06/19/2016 Bilateral leg edema 01/22/2020 BRVO (branch retinal vein occlusion) OS Cataract of both eyes Central retinal vein occlusion with macular edema of right eye Chronic lumbar pain 06/16/2020 Chronic pain of both ankles 12/13/2017 CKD (chronic kidney disease) stage 3, GFR 30-59 ml/min ([facility]) 06/19/[address] Vipul Perez [facility] CKD (chronic kidney disease) stage 4, GFR 15-29 ml/min ([facility]) 06/19/[address] 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 Plan: Continue pantoprazole 40mg qday. Elevated prostate specific antigen (PSA) 10/19/2016 Normal 10/2017 with free PSA at 44% Essential hypertension 05/18/2014 11/08/2014: Home BP Cuff Validated. Home BP: 167/94 pulse 79. Office BP: 157/91 pulse 76. Gastroesophageal reflux disease without esophagitis 08/24/2015 GIB (gastrointestinal bleeding) 01/13/2013 Patient presents with three episodes of BRBPR onset around 2pm 02/06/2013. He endorses a history of BRBPR during an admission at [facility] in December 2012 for which he states no workup or colonoscopy wasperformed. During his last admission at [facility] he endorses having passed old blood , and underwent EGD 01/31/13 showing a small polyp/hypertrophied fold at the cardia, severe portal hypertensive gastropathy in the entire stomach, and multiple superficial duodenal ulcers. EGD EUS performed 02/03/13 showed several portal hypertensive gastropathy, and normal endoscopic ultrasound examination of the previous area of concern (polyp vs. gastric fold). He was started on PPI BID and discharged 02/04/13 at which time hemoglobin was 8.6. In the ED 02/06/13, Hgb is 8.4, Hct 24.4, plt 41. Last colonoscopy was 2 years ago per patient, and he reports normal findings to be repeated in 2014. Etiologies of current episode includes internal hemorrhoids (no external hemorrhoids seen on examination), diverticular bleeding, AVM, varice [place] filter in place 04/06/2019 History of alcohol abuse Quit 2011 History of cirrhosis of liver Secondary to alcohol abuse and hemochromatosis. Sees Dr. Doss (at [facility]): Secondary to alcohol abuse and hemochromatosis, currently on transplant list. MELD Score: 35 Plan: - continue homemedications: nadolol, norfloxacin, zinc, lactulose, rifaximin, folic acid. 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 Currently alert, oriented x3, no signs of decompensated encephalopathy. Plan: - continue home regimen of lactulose, rifaximin and zinc History of hemochromatosis 08/24/2015 Has not been an issue since liver transplant. Hyperbilirubinemia 01/13/2013 Hypertensive retinopathy mild ICH (intracerebral hemorrhage) (HCC) Imbalance 06/01/2014 Noted at PT eval on 05/31/2014. Incisional hernia 04/07/2014 Liver transplanted (HCC) 04/07/[address] 06/06/2022 DPA: Brittani () Lupus anticoagulant syndrome (HCC) 10/28/2019 Medicare annual wellness visit, subsequent 05/18/2021 Medicare part B: Not able to find Last done: 05/18/2021 Mixed hyperlipidemia 06/23/2014 Obesity, Class I, BMI 30-34.9 10/27/2019 Osteopenia 11/26/2013 Other proteinuria 10/21/2017 Seeing renal Reactive depression 05/02/2023 Sertraline started 04/2023 Retinal edema S/P hernia repair 12/13/2021 Secondary hyperparathyroidism of renal origin (HCC) 10/19/2019 Thoracic aorta atherosclerosis (HCC) 10/12/2021 Thrombocytopenia (HCC) 05/18/2014 Tributary (branch) retinal vein occlusion, left eye, with macular edema Vertigo 05/18/2014 Vitreous degeneration PAST SURGICAL HISTORY: PAST SURGICAL HISTORY Procedure Laterality Date APPENDECTOMY HX 02/15/2013 AVASTIN (BEVACIZUMAB) 1.25MG INTRAVITREAL INJECTION OD (RIGHT EYE) Right 04/18/2023 LAST AVASTIN (BEVACIZUMAB) 1.25MG INTRAVITREAL INJECTION OD (RIGHT EYE) Right 04/04/2016 CHOLECYSTECTOMY HX 02/15/2013 COLONOSCOPY 02/08/2013 repeat 10 yrs EYLEA (AFLIBERCEPT) 2MG INTRAVITREAL INJECTION OD (RIGHT EYE) Right 04/07/2014 intravitreal injection, Eylea OD FECAL OCCULT BLOOD TEST 09/13/2016 negative MIDLINE INSERTION/CONSULT 02/13/2013 PAST SURGICAL HISTORY OF Tooth extraction PAST SURGICAL HISTORY OF 02/15/2013 liver transplant PAST SURGICAL HISTORY OF 2004 vein stripping FAMILY HISTORY: FAMILY HISTORY Problem Relation Age of Onset other (MVA) Mother killed other (mva) Father killed other (hemachromatosis) Sister of breast ca at age 75 No Known Problems Sister COPD Sister other (hemachromatosis) Brother does not have any liver problems other (Bone Cancer) Brother No Known Problems Brother No Known Problems Maternal Grandmother No Known Problems Maternal Grandfather No Known Problems Paternal Grandmother No Known Problems Paternal Grandfather No Ocular Disease No Family History nothing known of Anesthesia Problems No Family History SOCIAL HISTORY: Social History Tobacco Use Smoking status: Never Smokeless tobacco: Never Vaping Use Vaping Use: Never used Substance Use Topics Alcohol use: No Alcohol/week: 0.0 standard drinks of alcohol Comment: last drink was in July 2012 Drug use: No MEDICATIONS: sodium bicarbonate 650 mg tablet^take 1 tablet by mouth three times daily^Disp: 270 tablet^Rfl: 1 carvedilol (COREG) 25 mg tablet^Take 1 tablet by mouth two times a day.^Disp: 60 tablet^Rfl: 5 atorvastatin (LIPITOR) 40 mg tablet^Take 1 tablet by mouth daily at bedtime.^Disp: 30 tablet^Rfl: 5 aspirin 81 mg chewable tablet^Take 1 tablet by mouth once daily.^Disp: 90 tablet^Rfl: 3 clopidogrel (PLAVIX) 75 mg tablet^Take 1 tablet by mouth once daily.^Disp: 90 tablet^Rfl: 3 azelastine 0.1% nasal spray^Use 2 Sprays in each nostril as needed.^Disp: ^Rfl: furosemide (LASIX) 40 mg tablet^Take 1 tablet by mouth once daily.^Disp: 30 tablet^Rfl: 5 sertraline (ZOLOFT) 25 mg tablet^Take 1 tablet by mouth once daily.^Disp: 30 tablet^Rfl: 5 dext 70/polycarbophil/peg/NaCl (ARTIFICIAL TEAR SOLUTION OPHTHALMIC)^Use 1 Drop in eyes as needed.^Disp: ^Rfl: sirolimus (RAPAMUNE) 0.5 mg tablet^Take 1 tablet by mouth once daily. [facility] PAP refill^Disp: 90 tablet^Rfl: 3 dilTIAZem CD (CARDIZEM CD, CARTIA XT) 240 mg 24 hr capsule^Take 1 capsule by mouth once daily.^Disp: 30 capsule^Rfl: 11 Blood Pressure Monitor^1 Each twice daily.^Disp: 1 Kit^Rfl: 0 acetaminophen (TYLENOL) 500 mg tablet^Take 2 tablets by mouth every 6 hours as needed for pain.^Disp: ^Rfl: magnesium/vitamin E/pyridoxine (VITAMIN B6-VITAMIN E-MAGNESIUM ORAL)^Take 1 tablet by mouth once daily.^Disp: ^Rfl: gabapentin (NEURONTIN) 100 mg capsule^Take 100 mg by mouth once daily.^Disp: ^Rfl: pyridoxine, vitamin B6, (VITAMIN B6) 100 mg tablet^Take 1 tablet by mouth once daily.^Disp: 100 tablet^Rfl: 2 Cholecalciferol, Vitamin D3, 5,000 unit tab^Take 1 tablet by mouth once daily.^Disp: ^Rfl: 0 ALLERGIES: ALLERGIES Allergen Reactions Aldactone [Spironol* Other: See Comments Hyperkalemia Seasonal Allergies Cough Sneezing and watering eyes REVIEW OF SYSTEMS: PHYSICAL EXAM: There were no vitals taken for this visit. @BPTRU@ Constitutional: No acute distress, Responsive, Normal habitus, and Well-nourished Eyes: Conjunctiva clear and PERRL Ear, Nose, and Throat: Hearing normal, Lips normal, and Dentition normal Neck:Trachea midline No jugular venous distension Cardiovascular:No peripheral edema Regular rate and ryhthm, normal S1 and S2, no murmurs, rubs, or gallops Respiratory: Normal respiratory effort. Lungs clear bilaterally. Abdomen:Soft, non-tender, non-distended. Normal bowel sounds. No hepatosplenomegaly. Musculoskeletal: No clubbing or cyanosis of digits., Normocephalic., and No muscle weakness, joint tenderness, or joint effusions. Neurologic:CN II-XII intact and Normal sensation Psychiatric: Alert and oriented x self, place, time, and setting Normal mood/affect Mild RLE edema, none on L side. DATA: Diagnostic tests reviewed for today's visit: Recent Labs 07/08/23 1324 06/24/23 1128 12/31/22 1258 07/09/22 1340 COLOR Light Yellow Yellow Light Yellow Light Yellow CLARITY Clear Clear Clear Clear UGLUC 1+* Trace* 1+* 1+* UBILI Negative Negative Negative Negative UKET Negative Negative Negative Negative SPGR 1.012 1.012 1.014 1.011 UHB Negative Negative Trace Trace* UPH 6.5 6.5 5.5 6.0 UPROT 2+* 2+* 2+* 2+* NITRITES Negative Negative Negative Negative LEUKEST Negative Negative Negative Negative UWBC -- 0-5 /HPF -- 0-5 /HPF URBC -- 0-2 /HPF -- 0-3 /HPF Recent Labs 06/24/23 1124 HB 9.0* Recent Labs 06/24/23 1124 06/20/23 0852 ALKPHOS 101 102 CA 9.9 9.7 P -- 3.0 ALB 3.9 3.9 ASSESSMENT: Mr. Sanon is a 78 yo man with history of liver transplant on sirolimus, hypertension, CAD and HF, presenting for follow up of CKD. He has proteinuric nonnephrotic range chronic kidney disease in thesetting of long-term liver transplant. His kidney function remains stable from last visit (Cr fluctuating 3-4), despite contrast load from recent catheterizations. 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 Pt remains resistant to discussions regarding dialysis, but with current kidney function lytes, volume status are well managed with medical therapies alone. PLAN: -F/u BP with PCP post-catheterization to ensure BP < 130/80 -Consider SERVANDO given hgb < 9 (previously fluctuating 9-10 with ferritin 800s, normal iron) -Continue sodium bicarb tabs -Labs q3-6 months Clara Kerr MD PGY-3, IMRP [id number] Case discussed with Dr. Fontenot. CC: REFERRING PROVIDER: Self PRIMARY CARE PHYSICIAN: Sanju Banerjee MD Renal Staff: I have seen and examined the patient with Clara Kerr MD . I have confirmed the stephenson portions of thehistory and physical independently. aware of significant CAD- LHC with CPI in am Close follow up of creat Creatinine (mg/dL) Date Value 06/24/2023 3.22 06/20/2023 3.83 06/12/2023 3.12 10/07/2021 2.79 09/25/2021 2.87 09/11/2021 2.86 BUN (mg/dL) Date Value 06/24/2023 39 06/20/2023 40 06/12/2023 52 10/07/2021 43 09/25/2021 40 09/11/2021 39 Estimated Glomerular Filtration Rate (mL/min/1.73m ) Date Value 06/24/2023 19 06/20/2023 15 06/12/2023 20 CO2 (mmol/L) Date Value 06/24/2023 24 06/20/2023 25 06/12/2023 22 10/07/2021 22 09/25/2021 21 09/11/2021 23 Potassium (mmol/L) Date Value 06/24/2023 4.2 06/20/2023 4.8 06/12/2023 3.9 10/07/2021 5.8 09/25/2021 4.8 09/11/2021 5.1 Rapamune/Sirolimus (ng/mL) Date Value 06/20/2023 5.3 05/20/2023 6.2 04/20/2023 3.9 Hemoglobin (g/dL) Date Value 06/24/2023 9.0 06/20/2023 9.2 06/12/2023 8.4 10/07/2021 9.5 09/25/2021 10.2 09/11/2021 9.6 Platelet Count (k/uL) Date Value 06/24/2023 137 06/20/2023 145 06/12/2023 109 10/07/2021 159 09/25/2021 138 09/11/2021 151 WBC (k/uL) Date Value 06/24/2023 6.35 06/20/2023 6.88 06/12/2023 5.95 10/07/2021 6.92 09/25/2021 6.06 09/11/2021 5.91 Albumin (g/dL) Date Value 06/24/2023 3.9 06/20/2023 3.9 05/20/2023 4.2 10/07/2021 3.9 09/25/2021 3.8 09/11/2021 3.9 Phosphorus (mg/dL) Date Value 06/20/2023 3.0 05/20/2023 3.9 04/20/2023 3.6 10/07/2021 3.4 09/25/2021 4.0 09/11/2021 4.5 Agree with rest Noman Fontenot MD This note was partially generated using [employer] voice recognition system, and there may be some incorrect words, spellings, and punctuation that were not noted in checking the note before saving. (N18.4) CKD (chronic kidney disease) stage 4, GFR 15-29 ml/min (HCC) (primary encounter diagnosis) (Z94.4) Liver transplanted (HCC) (I10) Benign essential HTN (R80.9) Proteinuria, unspecified type documented in this encounterMer[facility]23 Miscellaneous Notes* Telephone Encounter - Kim Ellington RN - 07/08/2023 1:06 PM EST CARDIOVASCULAR LAB INSTRUCTIONS: Readiness to Learn: Cognitive Ability: Alert and oriented Motivation To Learn: Interested Family/Significant Other Support: High - Very involved in pt care Instruction Provided To: Family member Patient Learns Best By: Verbal Instruction Factors Affecting Learning: None Physical Limitations Affecting Learning: None Learning Response: Procedure: PTCA/Stent Pre procedure education topics: Arrival time/NPO Status/Medications/Travel Instructions/Restrictions Patient/Family Response Evaluation: Verbalizes understanding Follow Up Plan and Medication: As directed by physician Instruction/Supplemental Material Given: Cardiac catheterization instructions, procedure information, hospital information, hotel information. Instructed By Kim Ellington RN. In Department of CARDIOLOGY. documented in this encounterMer[facility]-16-[facility]23 Miscellaneous Notes* Telephone Encounter - Mariana Gomes RN - 07/04/2023 11:21 AM EST Pts called and is notified of providers message and instructions. She voices understanding. Mariana Gomes RN * Telephone Encounter - Mariana Gomes RN - 07/03/2023 8:10 AM EST Called and left a voicemail for the Patient to call back and ask for a nurse to receive the providers message. Mariana Gomes RN * Telephone Encounter - Sanju Banerjee MD - 07/02/2023 8:30 PM EST Brittani know the appt for another stent is not an error. I was able to get feed back from Dr. Dawson how said the one of Isaias's vessels was pretty diseased and Dr. Whitaker wanted to do the stenting in stages, dealing with the LAD first (done) and then the circumflex artery now. This cuts done on contrast load on the kidnies all at once. * Telephone Encounter - Bryanna Torres LPN - 06/26/2023 8:10 AM EST Brittani notified that we are waiting to hear back from cardiology. Bryanna Torres LPN * Telephone Encounter - Mariana Gomes RN - 06/25/2023 5:08 PM EST Called and left a voicemail for the Patient to call back and ask for a nurse to receive the providers message. Just wanted to let her know that he sent message to Cardiology and we are waiting to hear back from them. Mariana Gomes RN * Telephone Encounter - Sanju Banerjee MD - 06/25/2023 4:[address] Whitaker patient's received a call today saying isaias needed to come back and have another stent placed. Looking at your cath report I do not see any mention for the need or another stent in thenear future. Is this an error on the part of the surgical scheduler? Ash Hernandez * Telephone Encounter - Mariana Gomes RN - 06/25/2023 3:27 PM EST Pts called and is notified of providers results and instructions. She voices understanding. She states they received a call from [facility] [place] today. They said, Per Dr. Giraldo, pt needs to be scheduled for PCI to the LCX with Dr Whitaker. . She said when he was up there for the firststent they never came out and talked to her afterwards, and she didn't know anything about him having to go back. She said the only instructions on their paperwork were to f/u with PCP. She was asking if Dr Banerjee knew or knows anything about this and would get back to her. Mariana Gomes RN * Telephone Encounter - Sanju Banerjee MD - 06/25/2023 3:02 PM EST Let know urine showed no infection. His electrolyte panel showed his liver functions and electrolytes were ok. His kidnies were stable. His PSA was ok. His A1c was good at 6.3%. His lipid panel was good. His CBC showed his platelet count is stable. His Hg is low and suspect secondary to his renal disease. I will forward to his kidney provider who he sees in a few weeks. * Telephone Encounter - Mariana Gomes RN - 06/25/2023 9:37 AM EST Pts called in asking for lab results. Please call and advise. documented in this encounterMer[facility]11-07-2023 Miscellaneous Notes* Telephone Encounter - Julia Roger - 06/25/2023 3:11 PM EST Call returned. 07/09 Order needed - email sent to Dr. Giraldo * Telephone Encounter - Julia Roger - 06/25/2023 11:[address] Giraldo, pt needs to be scheduled for PCI to the LCX with Dr Whitaker Called patient to schedule - left vm. 1-2 weeks. documented in this encounterMercy [facility]11-02-2023 NoteHNO ID: [id number] Author: Sanju Banerjee MD Service: ? Author Type: Physician Type: Progress Notes Filed: 06/20/2023 1:27 PM Note Text: Medicare Yearly Visit Medical B eligibilty date not able to find Date of last exam 06/06/2022 PAST MEDICAL HISTORY PAST MEDICAL HISTORY Diagnosis Date Abdominal hernia without obstruction and without gangrene 06/19/2016 Alcohol abuse Amblyopia of left eye Anemia of renal disease 11/25/2019 Arthritis Ascites 01/13/2013 Patient denies known history of SBP. Denies current abdominal tenderness, and no large volume ascites with need for paracentesis 02/06/2013. Plan: - ? Diuretics - will D/W nephrology Balance problem 06/19/2016 Bilateral leg edema 01/22/2020 BRVO (branch retinal vein occlusion) OS Cataract of both eyes Chronic lumbar pain 06/16/2020 Chronic pain of both ankles 12/13/2017 Cirrhosis of liver (HCC) CKD (chronic kidney disease) stage 3, GFR 30-59 ml/min ([facility]) 06/19/[address] Vipul Perez [facility] Controlled type 2 diabetes mellitus with stage 4 chronic kidney disease, without long-term current use of insulin ([facility]) 10/23/2016 CRVO (central retinal vein occlusion) OD Duodenal ulcer 02/06/2013 Duodenal ulcers seen on EGD 01/31/13. Plan: Continue pantoprazole 40mg qday. Elevated prostate specific antigen (PSA) 10/19/2016 Normal 10/2017 with free PSA at 44% Essential hypertension 05/18/2014 11/08/2014: Home BP Cuff Validated. Home BP: 167/94 pulse 79. Office BP: 157/91 pulse 76. Gastroesophageal reflux disease without esophagitis 08/24/2015 GIB (gastrointestinal bleeding) 01/13/2013 Patient presents with three episodes of BRBPR onset around 2pm 02/06/2013. He endorses a history of BRBPR during an admission at [facility] in December 2012 for which he states no workup or colonoscopy was performed. During his last admission at [facility] he endorses having passed old blood , and underwent EGD 01/31/13 showing a small polyp/hypertrophied fold at the cardia, severe portal hypertensive gastropathy in the entire stomach, and multiple superficial duodenal ulcers. EGD EUS performed 02/03/13 showed several portal hypertensive gastropathy, and normal endoscopic ultrasound examination of the previous area of concern (polyp vs. gastric fold). He was started on PPI BID and discharged 02/04/13 at which time hemoglobin was 8.6. In the ED 02/06/13, Hgb is 8.4, Hct 24.4, plt 41. Last colonoscopy was 2 years ago per patient, and he reports normal findings to be repeated in 2014. Etiologies of current episode includes internal hemorrhoids (no external hemorrhoids seen on examination), diverticular bleeding, AVM, varice [place] filter in place 04/06/2019 Hemochromatosis History of cirrhosis of liver Secondary to alcohol abuse and hemochromatosis. Sees Dr. Doss (at [facility]): Secondary to alcohol abuse and hemochromatosis, currently on transplant list. MELD Score: 35 Plan: - continue home medications: nadolol, norfloxacin, zinc, lactulose, rifaximin, folic acid. 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 Currently alert, oriented x3, no signs of decompensated encephalopathy. Plan: - continue home regimen of lactulose, rifaximin and zinc History of hemochromatosis 08/24/2015 Has not been an issue since liver transplant. Hyperbilirubinemia 01/13/2013 Hypertensive kidney disease with stage 3b chronic kidney disease (HCC) 05/18/2014 11/08/2014: Home BP Cuff Validated. Home BP: 167/94 pulse 79. Office BP: 157/91 pulse 76. Hypertensive retinopathy mild ICH (intracerebral hemorrhage) (HCC) Imbalance 06/01/2014 Noted at PT eval on 05/31/2014. Incisional hernia 04/07/2014 Liver transplanted (HCC) 04/07/2014 Lupus anticoagulant syndrome (HCC) 10/28/2019 Medicare annual wellness visit, subsequent 05/18/2021 Medicare part B: Not able to find Last done: 05/18/2021 Mixed hyperlipidemia 06/23/2014 Obesity, Class I, BMI 30-34.9 10/27/2019 Osteopenia 11/26/2013 Other proteinuria 10/21/2017 Seeing renal Retinal edema Secondary hyperparathyroidism of renal origin (HCC) 10/19/2019 Thrombocytopenia (HCC) 05/18/2014 Vertigo 05/18/2014 PAST SURGICAL HISTORY PAST SURGICAL HISTORY Procedure Laterality Date APPENDECTOMY HX 02/15/2013 AVASTIN (BEVACIZUMAB) 1.25MG INTRAVITREAL INJECTION OD (RIGHT EYE) Right 01/12/16 last od AVASTIN (BEVACIZUMAB) 1.25MG INTRAVITREAL INJECTION OD (RIGHT EYE) Right 04/04/16 CHOLECYSTECTOMY HX 02/15/2013 COLONOSCOPY 02/08/2013 repeat 10 yrs EYLEA (AFLIBERCEPT) 2MG INTRAVITREAL INJECTION OD (RIGHT EYE) Right 04/07/14 #3 last intravitreal injection, Eylea OD FECAL OCCULT BLOOD TEST 09/13/2016 negative MIDLINE INSERTION/CONSULT 02/13/2013 PAST SURGICAL HISTORY OF Tooth extraction PAST SURGICAL HISTORY OF (more content not included)...[facility]10-[facility] NoteHNO ID: [id number] Author: Quinn Giraldo MD Service: Cardiovascular Medicine Author Type: Fellow Type: Procedures Filed: 06/14/2023 4:42 PM Note Text: Isaias Sanon DATE: June 11, 2023 Attending: Dr. Africa Whitaker Interventional Fellow: Quinn Giraldo MD HISTORY OF PRESENT ILLNESS: Mr. Sanon is a 78 year old male with a history of hypertension and chronic kidney disease (CKD) stage IV, who presented with exertional angina and positive high risk stress test (TID), and diagnostic left heart cath showed severe stenosis in proximal to mid LAD, and first diagonal (bifurcation flor 1,1,1,), and also tight stenosis in mid LCX. Today he presents for staged PCI to the LAD and the first diagonal. PROCEDURES PERFORMED: - Successful IVUS-guided, minimal contrast, PCI to the ostial LAD to mid LAD with two overlapping stents (4.0 X 16 mm and 3.5 X 28 mm Synergy KELLI) , and PCI to the first diagonal with T and protrusion (TAP) technique with a 3.0 X 16 mm Synergy KELLI, post dilated with 4.0 X 16 NC balloon in proximal LAD and kissing balloon inflation (3.5 X 12 mm and 3.0 X 15 mm) simultaneously in mid LAD and first diagonal. PROCEDURAL DETAILS Access: 6 Fr right radial artery Guide Catheter(s): 6 Fr EBU 3.5 Guidewire(s): Sandro Blue, Runthrough coronary wire, Fielder FC Other Equipment: HD IVUS, Shockwave lithotripsy Hemostasis: TR band Anticoagulation: UFH Additional Procedural Medications: Sedation, IC NTG PROCEDURAL NARRATIVE: We engaged the LMT with the 6 Fr EBU 3.5 guide catheter. After administering heparin to a goal ACT of >250s, we advanced a Sandro Blue coronary wire to the distal LAD and a Runthrough coronary wire to the distal first diagonal artery. - PTCA with a 2.5 X 12 mm Non-compliant balloon to the mid LAD. - PTCA with a 2.5 X 12 mm Non-compliant balloon to the first diagonal. - Shockwave lithotripsy using 3.0 X 12 shockwave balloon, with 30 pulses delivered to the first diagonal - Had difficulty advancing shockwave balloon in the LAD so did PTCA with a 3.0 X 15 NC balloon to proximal to mid LAD. - Shockwave lithotripsy using 3.5 X 12 shockwave balloon,40 pulses to mid LAD and 40 pulses to proximal LAD. We had to use two different shock wave balloons due to difference in vessel size and clinical necessity - Intracoronary imaging with HD IVUS showed severe stenosis in proximal to mid LAD across the origin of the first diagonal with severe circumferential calcifications, but with evidence of cracks in the calcium from the shockwave. IVUS of the first diagonal also confirmed severe stenosis in the ostium of the first diagonal. Vessel sizing was performed using IVUS, and proximal and distal landing zones were determined using IVUS. - Stenting with a 3.5 x 28 mm Synergy KELLI to the mid segment LAD jailing the diagonal wire. - The LAD wire (the Sandro Blue) was withdrawn to inside the LAD stent and redirected to the first diagonal through a side strut in the LAD stent. The jailed diagonal wire was removed and advanced into distal LAD. - Dilation of the side strut into the diagonal using 1.5 X 15 mm Takeru balloon followed by 2.5 X 15 mm Takeru balloon. - Stenting with a 3.0 X 16 mm Synergy KELLI in first diagonal with (L-icr-dbsesosbsy) technique. - Unfortunately there was interaction and resistance when we tried to advance two balloons in the guide for kissing so we had to lose the wires position and removed all equipment from the guide catheter. - We rewired the diagonal using the Sadnro Blue wire (with a knuckle to ensure staying inside the stent) , we Rewired the distal LAD using Fielder FC coronary wire. - Kissing balloons inflations with 3.0 X 15 mm NC balloon in diagonal and 3.5 X 12 mm NC balloon in the mid LAD. - Intracoronary imaging with HD IVUS confirmed excellent stents position and expansion in mid LAD and first diagonal, we then used IVUS for stent length sizing in ostial LAD into the mid LAD stent. - The Sandro Blue coronary wire was removed from the diagonal and advanced to distal LCX. - Stenting with a 4.0 X 16 mm Synergy KELLI starting at ostium of the LAD into proximal LAD, overlapping with the mid LAD stent. - Post-dilation done using the 4.0 X 16 balloon. - Intracoronary imaging with HD IVUS revealed optimal stent edges, MSA, and apposition with excellent coverage of the LAD ostium without extending into the LM. Final angiography showed no evidence of dissection or perforation. There was STACI 3 flow and 0% residual stenosis. PLAN: 1. ASA 81mg daily, indefinitely 2. Clopidogrel (Plavix) 75 mg for at least 12 months. 3. Cardiac rehabilitation. 4. Transferred to cardiac stepdown in stable condition Aggressive risk factor modification as appropriate. -- BP Goal < 130/80 with nonpharmacologic and medical therapy -- LDL goal 50% reduction AND level < 55-70 mg/dL using max tolerated statin +/- adjuvant th (more content not included)...[facility] 06-10-2023 Miscellaneous Notes* Telephone Encounter - Marcella Mathew RN - 06/10/2023 2:30 PM EDT CARDIOVASCULAR LAB INSTRUCTIONS: Readiness to Learn: Cognitive Ability: Alert and oriented Motivation To Learn: Interested Family/Significant Other Support: High - Very involved in pt care Instruction Provided To: Spouse Patient Learns Best By: Verbal Instruction Factors Affecting Learning: None Physical Limitations Affecting Learning: None Learning Response: Procedure: PTCA/Stent Pre procedure education topics: Arrival time/NPO Status/Medications/Travel Instructions/Restrictions Patient/Family Response Evaluation: Verbalizes understanding Follow Up Plan and Medication: As directed by physician Instruction/Supplemental Material Given: Cardiac catheterization instructions, procedure information, hospital information, hotel information. Instructed By Jluis Mathew RN, RN. In Department of CARDIOLOGY. documented in this encounterMer[facility]10-18-2023 Instructions* Patient Instructions* Jonah Dawson MD - 06/05/2023 3:39 PM EDT Take aspirin 324 mg (four baby aspirins) followed by 81 mg daily. Begin Plavix (clopidogrel) 300 mg (four tablets) on the first day followed by one tablet (75 mg) daily thereafter. Dr. Whitaker would like to have you come back for stenting on Sunday, June 11, 2023. His office will contact you about the specifics. I will see how everything goes that day and we will decide together about the need for subsequent procedures. documented in this encounterMer[facility]10-17-2023 Miscellaneous Notes* Telephone Encounter - Marcella Mathew RN - 06/04/2023 1:34 PM EDT CARDIOVASCULAR LAB INSTRUCTIONS: Readiness to Learn: Cognitive Ability: Alert and oriented Motivation To Learn: Interested Family/Significant Other Support: High - Very involved in pt care Instruction Provided To: Spouse Patient Learns Best By: Individual Instruction Factors Affecting Learning: None Physical Limitations Affecting Learning: None Learning Response: Procedure: Left Heart Diagnostic Pre procedure education topics: Arrival time/NPO Status/Medications/Travel Instructions/Restrictions Patient/Family Response Evaluation: Verbalizes understanding Follow Up Plan and Medication: As directed by physician Instruction/Supplemental Material Given: Cardiac catheterization instructions, procedure information, hospital information, hotel information. Instructed By Jluis Mathew RN, RN. In Department of CARDIOLOGY. documented in this encounterMer[facility]10-17-2023 NoteHNO ID: [id number] Author: Héctor Mulligan MD Service: Cardiovascular Medicine Author Type: Fellow Type: Plan of Care Filed: 06/04/2023 11:27 AM Note Text: Cardiac Catheterization Planning Note Isaias Sanon : 1945 ALLERGIES Allergen Reactions Aldactone [Spironol* Other: See Comments Hyperkalemia Seasonal Allergies Cough Sneezing and watering eyes Last 1 Encounter Wt Readings: Date: Wt: 05/17/2023 89.4 kg (197 lb) PLANNED PROCEDURE: Left heart cath only INDICATION FOR PROCEDURE: Abnormal stress test ISSUES RELEVANT TO PROCEDURE: Renal dysfunction BRIEF HPI: 78 year old male with CAD with chronic stable angina, prior CVA, CKD IV c/b secondary hyperparathyroidism, EtOH cirrhosis s/p OLD (2012), DVT, GERD undergoing diagnostic LHC for abnormal stress test with Lcx territory involvement. Cath requested by Dr. Dawson. Aspirin: yes ADP: no Anticoagulation: no Hemoglobin 10.8 05/20/2023 Hematocrit 33.8 05/20/2023 Platelet Count 154 05/20/2023 Creatinine 3.61 05/20/2023 INR (POCT) 1.0 12/26/2020 GFR (Per CKD-EPI): CrCl cannot be calculated (Patient's most recent lab result is older than the maximum 14 days allowed.). Cardiac Imaging/Procedure ECG 05/13/23 - SR with 1st degree AVB, ST and lateral TW abnormality TTE 11/07/22 - LVEF 58%, no WMA; RV normal size and function - MV: moderate MAC, mild MR, mild thickening - TV: trace TR - AV: trace AR, mild thickening - Aortic size 3.8 cm (sinus), 3.8 cm (mid) Stress NM Pharm 05/13/23 CONCLUSIONS: 1. SPECT Perfusion Study: Abnormal. 2. There is a moderate (10-20%) fixed perfusion defect in the LCX territory. 3. There is mild (<10%) xochitl-infarct ischemia in the territory of the LCX. 4. Left ventricle is normal in size. The left ventricle systolic function is normal. 5. Right ventricle is normal in size. The right ventricle systolic function is normal. 6. This is a high risk scan due to drop in LVEF with stress or TID and area of scar/ischemia. 7. There is transient ischemic dilation of the LV cavity with stress. Gated Stress FBP Gated Rest FBP LVEF % 59 58 CTA N/A Prior Cath N/A Access: R radial Catheters: JL3.5, JR4 Can lay flat Yes Pre-cath orders completed Yes Loaded No Consent [ ] Post-cath orders [ ] Cath Report [ ] Héctor Mulligan MD Cardiovascular Disease Fellow PGY-4 [facility] V[facility], and Thoracic InstituteWadsworth-[facility]10-12-2023 Miscellaneous Notes* Telephone Encounter - Lorri Amezcua - 05/30/2023 10:51 AM EDT Called patient and spoke to spouse to let her know that Mr Sanon has been scheduled for 06/05/[address] Dawson. They will receive a call on 06/04/23 with further instructions from a general labor nurse. Lorri Amezcua Adm May 30, 2023 * Telephone Encounter - Heather Nam APRN.CNP - 05/21/2023 10:58 AM EDT Called and spoke to Mrs. Sanon (Isaias's ) regarding the message below. Patient would like to proceed with diagnostic left heart catheterization in the setting of abnormalstress test as recommended JUSTINE by WILFREDO Blas and Dr. Dawson. Mr. Sanon is not having any new symptoms to date and remains clinically stable. He will be reaching out to both is Liver transplant team and kidney team to ensure they are aware of need for LHC. I discussed this situation with WILFREDO Blas over the telephone (as he is out of the office). We willplan to arrange LHC (most likely with biplane room and minimal contrast dye d/t CKD) when both him and Dr. Dawson are back in the office 05/28/2023. Relayed to patient that they will be hearing from us to schedule LHC next week. In the meantime, ifany new symptoms to arise they will call back to report. Forwarding to both WILFREDO Blas and Dr. Dawson to review on their return back to office. Heather Nam APRN.CNP May 21, 2023 11:01 AM * Telephone Encounter - Lorri mAezcua - 05/20/2023 2:42 PM EDT May 20, 2023 Patient Contact Number: [phone] Patient last seen within the last year: Yes Date of last office visit: 05/13/2023 Reason For Call: Patient would like to proceed with [facility] Spouse called. Patient would like to proceed with [facility] as discussed with Dacia Lima CNP. Patient informed that Dr. Dawson is out of of and message will be reviewed for follow up by our clinical team. Physician: Jonah Dawson MD Patient was informed that non-urgent calls may be returned within the next three business days. Yes Lorri Amezcua documented in this encounterMer[facility]10-06-2023 Miscellaneous Notes* Telephone Encounter - Sanju Banerjee MD - 05/24/2023 2:01 PM EDT Noted. * Telephone Encounter - Terra Dang MA - 05/24/2023 8:34 AM EDT Spoke with brittani and she indicated that patient's diarrhea has let up. If that changes they will contact office. Terra Dang MA * Telephone Encounter - Sanju Banerjee MD - 05/23/2023 10:25 PM EDT Let patient know all his stool studies were normal. See if still having diarrhea. If so then next step is to see gastro for eval and most likely a colonoscopy. documented in this encounterMercy [facility]09-29-2023 History of Present illness Narrative* Sanju Banerjee MD - 05/17/2023 10:20 AM EDT Chief Complaint Patient presents with: Follow Up: 2 week follow up CHF and Edema HPI Isaias Sanon is a 78 year old male who presents here today for 2 week follow up on CHF/edema. Any improvement with edema? Yes Patient was started on aldactone 25 mg daily. Patient was seen by Cardiovascular on 05/13/2023. They discussed his abnormal stress test and recommend a cath. Patient was not interested. He is concerned about the affects on his kidnies. Patient still getting ZULUAGA but much improved over how he was doing when he was last in the office. He has been taking the zoloft without any issues and feels he has been doing somewhat better. Patient's history from last visit on 05/02/2023. [facility]23 for CHF Patient's furosemide increased from 20 mg daily to 40 mg daily - updated. Patient has ECHO completed at hospital D/C instructions. - 8 cup fluid restrictions/2000 mg sodium diet. Has cut back on his daily fluid intake and he does not add fluid to anything. Swelling has improved. Still getting shortness of breath with ambulation but better than it was a week ago. No chest pain or pressure. No further swelling up into the groin or testicles. Per patient seems depressed. At times not very talkative and sitting and thinking. Has also noted easy agitation. Patient was seen on 04/26/2023 in our office Patient with known CKD stage 4, CAD, CHF. Patient has noted some increase shortness of breath and seems to have gotten worse recently. Patient with noted increased shortness of breath with ambulation per . noting he needs to stop and get his breath before walking again, even when just going to the bathroom from their bedroom. No orthopnea. No chest pain or heaviness. Has had a few US to make sure the right leg swelling was not aclot. Last one was 12/18/2022. Due to patient's change in status with walking and abnormal EKG EMS was contacted for transport to local ER. Patient was placed on O2 till released with EMS and was feeling better while it was on. Past medical history, appointments, medications, allergies reviewed. Previous Medical History PAST MEDICAL HISTORY Diagnosis Date Abdominal hernia without obstruction and without gangrene 06/19/2016 Advance directive discussed with patient 06/06/2022 Discussed 05/2022 Amblyopia of left eye Anemia of renal disease 11/25/2019 Arthritis Ascites 01/13/2013 Patient denies known history of SBP. Denies current abdominal tenderness, and no large volume ascites with need for paracentesis 02/06/2013. Plan: - ? Diuretics - will D/W nephrology Balance problem 06/19/2016 Bilateral leg edema 01/22/2020 BRVO (branch retinal vein occlusion) OS Cataract of both eyes Central retinal vein occlusion with macular edema of right eye Chronic lumbar pain 06/16/2020 Chronic pain of both ankles 12/13/2017 CKD (chronic kidney disease) stage 3, GFR 30-59 ml/min ([facility]) 06/19/[address] Vipul Perez [facility] CKD (chronic kidney disease) stage 4, GFR 15-29 ml/min ([facility]) 06/19/[address] 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 Plan: Continue pantoprazole 40mg qday. Elevated prostate specific antigen (PSA) 10/19/2016 Normal 10/2017 with free PSA at 44% Essential hypertension 05/18/2014 11/08/2014: Home BP Cuff Validated. Home BP: 167/94 pulse 79. Office BP: 157/91 pulse 76. Gastroesophageal reflux disease without esophagitis 08/24/2015 GIB (gastrointestinal bleeding) 01/13/2013 Patient presents with three episodes of BRBPR onset around 2pm 02/06/2013. He endorses a history of BRBPR during an admission at [facility] in December 2012 for which he states no workup or colonoscopy wasperformed. During his last admission at [facility] he endorses having passed old blood , and underwent EGD 01/31/13 showing a small polyp/hypertrophied fold at the cardia, severe portal hypertensive gastropathy in the entire stomach, and multiple superficial duodenal ulcers. EGD EUS performed 02/03/13 showed several portal hypertensive gastropathy, and normal endoscopic ultrasound examination of the previous area of concern (polyp vs. gastric fold). He was started on PPI BID and discharged 02/04/13 at which time hemoglobin was 8.6. In the ED 02/06/13, Hgb is 8.4, Hct 24.4, plt 41. Last colonoscopy was 2 years ago per patient, and he reports normal findings to be repeated in 2014. Etiologies of current episode includes internal hemorrhoids (no external hemorrhoids seen on examination), diverticular bleeding, AVM, varice Tony filter in place 04/06/2019 History of alcohol abuse Quit 2011 History of cirrhosis of liver Secondary to alcohol abuse and hemochromatosis. Sees Dr. Doss (at [facility]): Secondary to alcohol abuse and hemochromatosis, currently on transplant list. MELD Score: 35 Plan: - continue homemedications: nadolol, norfloxacin, zinc, lactulose, rifaximin, folic acid. - awaiting transplant History of deep venous thrombosis (DVT) of distal vein of right lower extremity 04/06/2019 [facility] on [facility] coumad[facility] History of encephalopathy 02/06/2013 Secondary to cirrhosis. Currently alert, oriented x3, no signs of decompensated encephalopathy. Plan: - continue home regimen of lactulose, rifaximin and zinc History of hemochromatosis 08/24/2015 Has not been an issue since liver transplant. Hyperbilirubinemia 01/13/2013 Hypertensive retinopathy mild ICH (intracerebral hemorrhage) (HCC) Imbalance 06/01/2014 Noted at PT eval on 05/31/2014. Incisional hernia 04/07/2014 Liver transplanted (HCC) 04/07/[address] 06/06/2022 DPA: Brittani () Lupus anticoagulant syndrome (HCC) 10/28/2019 Medicare annual wellness visit, subsequent 05/18/2021 Medicare part B: Not able to find Last done: 05/18/2021 Mixed hyperlipidemia 06/23/2014 Obesity, Class I, BMI 30-34.9 10/27/2019 Osteopenia 11/26/2013 Other proteinuria 10/21/2017 Seeing renal Reactive depression 05/02/2023 Sertraline started 04/2023 Retinal edema S/P hernia repair 12/13/2021 Secondary hyperparathyroidism of renal origin (HCC) 10/19/2019 Thoracic aorta atherosclerosis (HCC) 10/12/2021 Thrombocytopenia (HCC) 05/18/2014 Tributary (branch) retinal vein occlusion, left eye, with macular edema Vertigo 05/18/2014 Vitreous degeneration Previous Surgical History PAST SURGICAL HISTORY Procedure Laterality Date APPENDECTOMY HX 02/15/2013 AVASTIN (BEVACIZUMAB) 1.25MG INTRAVITREAL INJECTION OD (RIGHT EYE) Right 04/18/2023 LAST AVASTIN (BEVACIZUMAB) 1.25MG INTRAVITREAL INJECTION OD (RIGHT EYE) Right 04/04/2016 CHOLECYSTECTOMY HX 02/15/2013 COLONOSCOPY 02/08/2013 repeat 10 yrs EYLEA (AFLIBERCEPT) 2MG INTRAVITREAL INJECTION OD (RIGHT EYE) Right 04/07/2014 intravitreal injection, Eylea OD FECAL OCCULT BLOOD TEST 09/13/2016 negative MIDLINE INSERTION/CONSULT 02/13/2013 PAST SURGICAL HISTORY OF Tooth extraction PAST SURGICAL HISTORY OF 02/15/2013 liver transplant PAST SURGICAL HISTORY OF 2004 vein stripping Family History FAMILY HISTORY Problem Relation Age of Onset other (MVA) Mother killed other (mva) Father killed other (hemachromatosis) Sister of breast ca at age 75 No Known Problems Sister COPD Sister other (hemachromatosis) Brother does not have any liver problems other (Bone Cancer) Brother No Known Problems Brother No Known Problems Maternal Grandmother No Known Problems Maternal Grandfather No Known Problems Paternal Grandmother No Known Problems Paternal Grandfather No Ocular Disease No Family History nothing known of Anesthesia Problems No Family History Patient Allergies ALLERGIES Allergen Reactions Aldactone [Spironol* Other: See Comments Hyperkalemia Seasonal Allergies Cough Sneezing and watering eyes Current Medications Current Outpatient Medications on File Prior to Visit Medication Sig furosemide (LASIX) 40 mg tablet Take 1 tablet by mouth once daily. sertraline (ZOLOFT) 25 mg tablet Take 1 tablet by mouth once daily. dext 70/polycarbophil/peg/NaCl (ARTIFICIAL TEAR SOLUTION OPHTHALMIC) Use 1 Drop in eyes as needed. sirolimus (RAPAMUNE) 0.5 mg tablet Take 1 tablet by mouth once daily. [employer] PAP refill dilTIAZem CD (CARDIZEM CD, CARTIA XT) 240 mg 24 hr capsule Take 1 capsule by mouth once daily. sodium bicarbonate 650 mg tablet TAKE 1 TABLET BY MOUTH THREE TIMES DAILY (Patient taking differently: Take 650 mg by mouth twice daily.) carvedilol (COREG) 25 mg tablet Take 1 tablet by mouth twice daily. atorvastatin (LIPITOR) 40 mg tablet Take 1 tablet by mouth daily at bedtime. Blood Pressure Monitor 1 Each twice daily. acetaminophen (TYLENOL) 500 mg tablet Take 2 tablets by mouth every 6 hours as needed for pain. magnesium/vitamin E/pyridoxine (VITAMIN B6-VITAMIN E-MAGNESIUM ORAL) Take 1 tablet by mouth once daily. (Patient not taking: Reported on 05/16/2023) gabapentin (NEURONTIN) 100 mg capsule Take 100 mg by mouth once daily. azelastine (ASTELIN) 0.1% nasal spray Use 2 Sprays in each nostril twice daily. (Patient taking differently: Use 2 Sprays in each nostril as needed.) pyridoxine, vitamin B6, (VITAMIN B6) 100 mg tablet Take 1 tablet by mouth once daily. aspirin 81 mg chewable tablet Take 1 tablet by mouth once daily. Cholecalciferol, Vitamin D3, 5,000 unit tab Take 1 tablet by mouth once daily. Current Facility-Administered Medications on File Prior to Visit Medication tropicamide 1 % 1 Drop (MYDRIACYL) PHENYLephrine 2.5 % 1 Drop (AK-DILATE, ARNULFO-SYNEPHRINE) fluorescein-benoxinate 0.25-0.4 % 1 Drop (FLURESS) proparacaine 0.5 % 1 Drop (ALCAINE) perflutren lipid microspheres 1.3 mL in NaCl (PF) 0.9% 10 mL injection (DEFINITY) sodium chloride 0.9 % (flush) 10 mL (BD POSIFLUSH) Social History Social History Tobacco Use Smoking status: Never Smokeless tobacco: Never Vaping Use Vaping Use: Never used Substance Use Topics Alcohol use: No Alcohol/week: 0.0 standard drinks of alcohol Comment: last drink was in July 2012 Drug use: No Review of Symptoms REVIEW OF SYSTEMS GENERAL: No unintentional weight loss, malaise or fevers RESPIRATORY: Negative for cough, hemoptysis, has noted reduced wheezing, COPD, dyspnea or shortnessof breath. The cough he was having has improved. CARDIOVASCULAR: Negative for chest pain, hypertension, CHF or palpitations. Leg edema is better NEURO: No history of headaches, syncope, paralysis, seizures or tremors. Had an episode a few days ago where he got very nauseated. Sat down and it resolved within a few min. Still having the diarrhea. Has the stool study kits and needs to complete them. EXAM: BP 160/82 Pulse 70 Resp 18 Wt 89.4 kg (197 lb) BMI 30.85 kg/m BP 132/78 Pulse 70 Resp 18 Wt 89.4 kg (197 lb) BMI 30.85 kg/m Last 5 Encounter Wt Readings: Date: Wt: 05/17/2023 89.4 kg (197 lb) 05/13/2023 88.5 kg (195 lb) 05/02/2023 93.4 kg (206 lb) 04/26/2023 100.2 kg (221 lb) 02/25/2023 93 kg (205 lb 1.6 oz) General Appearance: Well appearing, alert, in no acute distress, well-hydrated, well nourished.. Lungs: Lungs clear to auscultation. No wheezing, rhonchi, rales.. Heart: RRR without murmur, gallop, or rubs. No ectopy. Extremities: no edema on the left and the edema on the right is improved and almost all gone. . Health Maintenance List Advance Directive Discussion due on 08/19/2022 Covid-19 Vaccine(5 - Pfizer risk series) due on 08/20/2022 BP Controlled (<130/80) due on 11/16/2022 DTaP,Tdap,Td Vaccine(2 - Td or Tdap) due on 02/01/2023 Diabetic Foot Exam due on 06/06/2023 Shingrix Vaccine(1 of 2) due on 06/06/2023 HbA1C due on 06/07/2023 LDL Cholesterol due on 01/22/2024 Annual PCP Team Chronic Disease Visit due on 05/02/2024 Hemoglobin/Hematocrit due on 05/07/2024 Serum Creatinine due on 05/09/2024 Dilated Retinal Exam due on 05/16/2024 Hepatitis B Vaccine Completed Influenza Vaccine Completed Hepatitis C Screening Completed Pneumococcal Vaccine: 65+ Completed HPV Vaccine Aged Out Colorectal Cancer Screening Discontinued Data reviewed A/P ASSESSMENT/PLAN: 1. Congestive heart failure, unspecified HF chronicity, unspecified heart failure type (HCC) - ICD9: 428.0, ICD10: I50.9 (primary diagnosis) - clinical status improved. - will continue current meds without changes. - gets labs on Saturday and will review them 2. CKD (chronic kidney disease) stage 4, GFR 15-29 ml/min (HCC) - ICD9: 585.4, ICD10: N18.4 - cont management with renal. - await labs 3. Bilateral leg edema - ICD9: 782.3, ICD10: R60.0 - much improved no changes. 4. Abnormal stress test - ICD9: 794.39, ICD10: R94.39 - discussed with patient and do feel it would be a good idea to proceed. 5. Thrombocytopenia (HCC) - ICD9: 287.5, ICD10: D69.6 - stable and chronic related to his underlying liver and health issues. 6. Secondary hyperparathyroidism of renal origin (HCC) - ICD9: 588.81, ICD10: N25.81 - management per renal. 7. Reactive depression - ICD9: 300.4, ICD10: F32.9 - cont sertraline at 25 mg a day. F/u routine on 06/20/2023 I spent a total of 36 minutes on the date of the service which included preparing to see the patient, [id number] patient care, completing clinical documentation, performing a medically appropriate examination, counseling and educating the patient/family/caregiver and ordering medications, tests, or procedures. Sanju Banerjee MD documented [facility]23 NoteHNO ID: [id number] Author: Sanju Banerjee MD Service: ? Author Type: Physician Type: Progress Notes Filed: 05/17/2023 1:14 PM Note Text: Chief Complaint Patient presents with: Follow Up: 2 week follow up CHF and Edema HPI Isaias Sanon is a 78 year old male who presents here today for 2 week follow up on CHF/edema. Any improvement with edema? Yes Patient was started on aldactone 25 mg daily. Patient was seen by Cardiovascular on 05/13/2023. They discussed his abnormal stress test and recommend a cath. Patient was not interested. He is concerned about the affects on his kidnies. Patient still getting ZULUAGA but much improved over how he was doing when he was last in the office. He has been taking the zoloft without any issues and feels he has been doing somewhat better. Patient's history from last visit on 05/02/2023. [facility]/2023 for CHF Patient's furosemide increased from 20 mg daily to 40 mg daily - updated. Patient has ECHO completed at hospital D/C instructions. - 8 cup fluid restrictions/2000 mg sodium diet. Has cut back on his daily fluid intake and he does not add fluid to anything. Swelling has improved. Still getting shortness of breath with ambulation but better than it was a week ago. No chest pain or pressure. No further swelling up into the groin or testicles. Per patient seems depressed. At times not very talkative and sitting and thinking. Has also noted easy agitation. Patient was seen on 04/26/2023 in our office Patient with known CKD stage 4, CAD, CHF. Patient has noted some increase shortness of breath and seems to have gotten worse recently. Patient with noted increased shortness of breath with ambulation per . noting he needs to stop and get his breath before walking again, even when just going to the bathroom from their bedroom. No orthopnea. No chest pain or heaviness. Has had a few US to make sure the right leg swelling was not a clot. Last one was 12/18/2022. Due to patient's change in status with walking and abnormal EKG EMS was contacted for transport to local ER. Patient was placed on O2 till released with EMS and was feeling better while it was on. Past medical history, appointments, medications, allergies reviewed. Previous Medical History PAST MEDICAL HISTORY Diagnosis Date Abdominal hernia without obstruction and without gangrene 06/19/2016 Advance directive discussed with patient 06/06/2022 Discussed 05/2022 Amblyopia of left eye Anemia of renal disease 11/25/2019 Arthritis Ascites 01/13/2013 Patient denies known history of SBP. Denies current abdominal tenderness, and no large volume ascites with need for paracentesis 02/06/2013. Plan: - ? Diuretics - will D/W nephrology Balance problem 06/19/2016 Bilateral leg edema 01/22/2020 BRVO (branch retinal vein occlusion) OS Cataract of both eyes Central retinal vein occlusion with macular edema of right eye Chronic lumbar pain 06/16/2020 Chronic pain of both ankles 12/13/2017 CKD (chronic kidney disease) stage 3, GFR 30-59 ml/min ([facility]) 06/19/[address] Vipul Perez [facility] CKD (chronic kidney disease) stage 4, GFR 15-29 ml/min ([facility]) 06/19/[address] 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 Plan: Continue pantoprazole 40mg qday. Elevated prostate specific antigen (PSA) 10/19/2016 Normal 10/2017 with free PSA at 44% Essential hypertension 05/18/2014 11/08/2014: Home BP Cuff Validated. Home BP: 167/94 pulse 79. Office BP: 157/91 pulse 76. Gastroesophageal reflux disease without esophagitis 08/24/2015 GIB (gastrointestinal bleeding) 01/13/2013 Patient presents with three episodes of BRBPR onset around 2pm 02/06/2013. He endorses a history of BRBPR during an admission at [facility] in December 2012 for which he states no workup or colonoscopy was performed. During his last admission at [facility] he endorses having passed old blood , and underwent EGD 01/31/13 showing a small polyp/hypertrophied fold at the cardia, severe portal hypertensive gastropathy in the entire stomach, and multiple superficial duodenal ulcers. EGD EUS performed 02/03/13 showed several portal hypertensive gastropathy, and normal endoscopic ultrasound examination of the previous area of concern (polyp vs. gastric fold). He was started on PPI BID and discharged 02/04/13 at which time hemoglobin was 8.6. In the ED 02/06/13, Hgb is 8.4, Hct 24.4, plt 41. Last (more content not included)...[facility]09-28-[facility] NoteHNO ID: [id number] Author: Ender Pang MD Service: ? Author Type: Physician Type: Progress Notes Filed: 05/16/2023 12:29 PM Note Text: h/o CVA 1. CRVO with macular edema Right eye - RIGHT: - s/p Eylea #3 (last 04/07/14, 11/26/13, 09/02/13) - s/p Avastin #4 (last 04/04/16, 01/12/16, 04/14/15) - VA stable - OCT better - Continue to monitor 2. BRVO Left eye with retinal edema - LEFT: - s/p Avastin #1 (04/18/23) - Vision stable - OCT better - Plan = Observation 3. Cataracts Both Eyes - Consider cataract referral once edema under control 4. Amblyopia Left eye 5. HTN retinopathy - Still poorly controlled BP I have confirmed and edited as necessary the relevant ophthalmic history, ROS, and the clinical/neuro exam findings as obtained by others. I have seen and examined this patient. I have discussed the case and the management of this patient's care with the Resident/Fellow, if applicable. I also have reviewed and agree with the assessment and plan as stated above and agree with all of its relevant components on 05/16/2023 MD Tammy Haeny Family Endowed Chair of Ophthalmology Research Professor of Ophthalmology, [facility] of Medicine Vitreoretinal Staff, [facility]09-25-2023 Miscellaneous Notes* Telephone Encounter - Antoine Estrada RN - 05/13/2023 12:37 PM EDT Spoke with daughter, Amberly who advised patient was seen by cardiology today and was suggested patient have right heart cath. Amberly is worried about the patients rapamune and the procedural dye. Adviseddoes not need to swtich from mTOR to CNI for RHC. Encouraged to discuss use of dye with kidney team. Amberly understands his s/s are multifactorial and they are going to proceed and will keep me updated. All questions answered, no further needs at this time. Antoine Estrada RN, BSN, [facility] Liver Binder Operator documented in this encounterMer[facility]09-25-2023 History of Present illness Narrative* Mahogany Lima, PLASTIC FINISHER.DIRECTOR SOFTWARE QUALITY ASSURANCE - 05/13/2023 12:15 PM EDT Images from the original note were not included. [facility] V[facility] Thor[facility] [place] Erik Huber Department of Cardiovascular Medicine SECTION OF CLINICAL CARDIOLOGY OUTPATIENT VISIT DATE May 13, 2023 OUTPATIENT VISIT TYPE ESTABLISHED PRIMARY CARE PHYSICIAN: Sanju Banerjee [address] [place] [address] REFERRING PHYSICIAN: Sanju Banerjee [address] [facility] [id number] CHIEF COMPLAINT: Cardiology Follow Up HISTORY OF PRESENT ILLNESS: Mr. Sanon is a 78 year old male who presents today for a cardiovascular medicine follow-up visit. Medical History Coronary artery disease Comment: chronic stable angina Comment: myocardial perfusion imaging Oct 2021 with < 10% fixed LCx disease Alcohol-related cirrhosis Liver transplantation 2012 Chronic kidney disease Comment: stage 4, eGFR 15 mL/min/1.73 m2, creatinine ~ 3.5 mg/dL H/O stroke Comment: remote, involving left internal capsule GERD Anemia H/O DVT 2013 CRVO and BRVO He is an established patient of Dr Dawson and was last evaluated on 02/25/23 with impression at that time as follows: Isaias Sanon is a 77 year-old man with a PMHx of CKD stage 4, chronic stable angina, stroke, alcoholic cirrhosis and hemochromatosis s/p liver transplant in 2012, DVT in 2012, who is here today for checking his heart and for shortness of breath. His blood pressure was high during the office visit, which he says is typical for him during doctor's office appointments. His home readings are in the 130s/60s. His shortness of breath is likely multifactorial, due to his existing CKD, anemia and LV diastolic dysfunction along with deconditioning. He has moderate fixed perfusion defect in LCx per stress teston 11/15/21, however, no anginal symptoms and is stable clinically since last cardiac work up in 10/2021. On today's exam, he doesn't appear to be volume overloaded. His lungs are clear, no JVD, has minimal pedal edema R>L likely due to his prior DVT and varicose veins. His lasix dose of 20 mg seems low for his degree of CKD, and considering increasing diuretic dose after discussion with his digital program manager is reasonable, and might help with his shortness of breath. His anemia appears to be chronic Hb between 9 and 10, likely due to CKD. Might benefit from erythropoietin treatment. Although there hasn't been clinical worsening, it is reasonable to check another ECHO to assess LV function, EKG andblood work. Recommendations - Continue same medications - Can go up on diuresis after discussion with Dr. Fontenot - Follow up visit in 1 year at the time of his visit with Dr. Fontenot, with echo, EKG and blood work. Derik Cunningham MD PGY-1 Cardiology Staff Not I have personally interviewed and examined the patient and verified the stephenson components of the history and physical examination. The assessment and plan were formulated and discussed with the medicineresident (Dr. Derik Cunningham) and my findings and impressions are reflected in his note. Please refer to Dr. Cunningham's note for further details. 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 He currently describes NYHA class II-III shortness of breath that has not changed much over the last year or so. He denies chest pain, orthopnea or PND. His medical regimen has been largely unchanged and his blood pressure control by home measurement has been good. He has stable anemia and stable advanced CKD and is followed closely by nephrology. His physical examination is noteworthy for a brawny complexion with some bilateral legedema but normal neck veins at 45 degrees without concerning cardiovascular findings. I suspect his shortness of breath is multifactorial and doing a large part to his underlying anemiaplus obesity/deconditioning and some element of heart failure with preserved systolic function in the setting of advanced kidney disease. At the present time he is not floridly volume overloaded and I do not think he needs more aggressive diuresis. Recommendations Continue present medical therapy. I will plan to see him in 6 months in conjunction with his follow-up visit with nephrology (Dr. Fontenot). At that time I will arrange for an ECG, echocardiogram and basic blood work. If he appears to be retaining volume then I may need to discuss with Dr. Fontenot whether a more aggressive approach to loop diuresis may be of benefit. Today, I am following up with Mr. Sanon to review results of his stress test. He was previously admitted to an outside hospital with heart failure symptoms consistent of shortness of breath and lower extremity edema. He states his weight at that time was around 220 pounds. He was diuresed and followed up with his primary care provider who continued with diuresis. PCP was concerned about EKG changes as well as his heart failure symptoms so he ordered a stress test. Following up today with cardiology post stress test. Currently Mr. Sanon states that he is feeling much better after diuresis. He reports his lower extremity edema is essentially nonexistent. His shortness of breath is at baseline. Overall much improved. He is taking all medications as prescribed. PAST MEDICAL HISTORY Diagnosis Date Abdominal hernia without obstruction and without gangrene 06/19/2016 Advance directive discussed with patient 06/06/2022 Discussed 05/2022 Amblyopia of left eye Anemia of renal disease 11/25/2019 Arthritis Ascites 01/13/2013 Patient denies known history of SBP. Denies current abdominal tenderness, and no large volume ascites with need for paracentesis 02/06/2013. Plan: - ? Diuretics - will D/W nephrology Balance problem 06/19/2016 Bilateral leg edema 01/22/2020 BRVO (branch retinal vein occlusion) OS Cataract of both eyes Central retinal vein occlusion with macular edema of right eye Chronic lumbar pain 06/16/2020 Chronic pain of both ankles 12/13/2017 CKD (chronic kidney disease) stage 3, GFR 30-59 ml/min ([facility]) 06/19/[address] Vipul Perez [facility] CKD (chronic kidney disease) stage 4, GFR 15-29 ml/min ([facility]) 06/19/[address] 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 Plan: Continue pantoprazole 40mg qday. Elevated prostate specific antigen (PSA) 10/19/2016 Normal 10/2017 with free PSA at 44% Essential hypertension 05/18/2014 11/08/2014: Home BP Cuff Validated. Home BP: 167/94 pulse 79. Office BP: 157/91 pulse 76. Gastroesophageal reflux disease without esophagitis 08/24/2015 GIB (gastrointestinal bleeding) 01/13/2013 Patient presents with three episodes of BRBPR onset around 2pm 02/06/2013. He endorses a history of BRBPR during an admission at [facility] in December 2012 for which he states no workup or colonoscopy wasperformed. During his last admission at [facility] he endorses having passed old blood , and underwent EGD 01/31/13 showing a small polyp/hypertrophied fold at the cardia, severe portal hypertensive gastropathy in the entire stomach, and multiple superficial duodenal ulcers. EGD EUS performed 02/03/13 showed several portal hypertensive gastropathy, and normal endoscopic ultrasound examination of the previous area of concern (polyp vs. gastric fold). He was started on PPI BID and discharged 02/04/13 at which time hemoglobin was 8.6. In the ED 02/06/13, Hgb is 8.4, Hct 24.4, plt 41. Last colonoscopy was 2 years ago per patient, and he reports normal findings to be repeated in 2014. Etiologies of current episode includes internal hemorrhoids (no external hemorrhoids seen on examination), diverticular bleeding, AVM, varice [place] filter in place 04/06/2019 History of alcohol abuse Quit 2011 History of cirrhosis of liver Secondary to alcohol abuse and hemochromatosis. Sees Dr. Doss (at [facility]): Secondary to alcohol abuse and hemochromatosis, currently on transplant list. MELD Score: 35 Plan: - continue homemedications: nadolol, norfloxacin, zinc, lactulose, rifaximin, folic acid. 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 Currently alert, oriented x3, no signs of decompensated encephalopathy. Plan: - continue home regimen of lactulose, rifaximin and zinc History of hemochromatosis 08/24/2015 Has not been an issue since liver transplant. Hyperbilirubinemia 01/13/2013 Hypertensive retinopathy mild ICH (intracerebral hemorrhage) (HCC) Imbalance 06/01/2014 Noted at PT eval on 05/31/2014. Incisional hernia 04/07/2014 Liver transplanted (HCC) 04/07/[address] 06/06/2022 DPA: Brittani () Lupus anticoagulant syndrome (HCC) 10/28/2019 Medicare annual wellness visit, subsequent 05/18/2021 Medicare part B: Not able to find Last done: 05/18/2021 Mixed hyperlipidemia 06/23/2014 Obesity, Class I, BMI 30-34.9 10/27/2019 Osteopenia 11/26/2013 Other proteinuria 10/21/2017 Seeing renal Reactive depression 05/02/2023 Sertraline started 04/2023 Retinal edema S/P hernia repair 12/13/2021 Secondary hyperparathyroidism of renal origin (HCC) 10/19/2019 Thoracic aorta atherosclerosis (HCC) 10/12/2021 Thrombocytopenia (HCC) 05/18/2014 Tributary (branch) retinal vein occlusion, left eye, with macular edema Vertigo 05/18/2014 Vitreous degeneration PAST SURGICAL HISTORY Procedure Laterality Date APPENDECTOMY HX 02/15/2013 AVASTIN (BEVACIZUMAB) 1.25MG INTRAVITREAL INJECTION OD (RIGHT EYE) Right 01/12/16 last od AVASTIN (BEVACIZUMAB) 1.25MG INTRAVITREAL INJECTION OD (RIGHT EYE) Right 04/04/16 CHOLECYSTECTOMY HX 02/15/2013 COLONOSCOPY 02/08/2013 repeat 10 yrs EYLEA (AFLIBERCEPT) 2MG INTRAVITREAL INJECTION OD (RIGHT EYE) Right 04/07/14 #3 last intravitreal injection, Eylea OD FECAL OCCULT BLOOD TEST 09/13/2016 negative MIDLINE INSERTION/CONSULT 02/13/2013 PAST SURGICAL HISTORY OF Tooth extraction PAST SURGICAL HISTORY OF 02/15/2013 liver transplant PAST SURGICAL HISTORY OF 2003. vein stripping SOCIAL HISTORY Social History Tobacco Use Smoking status: Never Smokeless tobacco: Never Vaping Use Vaping Use: Never used Substance Use Topics Alcohol use: No Alcohol/week: 0.0 standard drinks of alcohol Comment: last drink was in July 2012 Drug use: No FAMILY HISTORY Problem Relation Age of Onset other (MVA) Mother killed other (mva) Father killed other (hemachromatosis) Sister of breast ca at age 75 No Known Problems Sister COPD Sister other (hemachromatosis) Brother does not have any liver problems other (Bone Cancer) Brother No Known Problems Brother No Known Problems Maternal Grandmother No Known Problems Maternal Grandfather No Known Problems Paternal Grandmother No Known Problems Paternal Grandfather No Ocular Disease No Family History nothing known of Anesthesia Problems No Family History Patient-Entered Questionnaire Scores PROMIS Global Health - (T-Scores - the mean of general population = 50. Five points is a clinicallymeaningful difference.) 06/19/2016 06/19/2016 04/27/2019 Physical T-Score - 44.9 42.3 Mental T-Score 45.8 45.8 43.5 ALLERGIES: ALLERGIES Allergen Reactions Aldactone [Spironol* Other: See Comments Hyperkalemia Seasonal Allergies Cough Sneezing and watering eyes MEDICATIONS: furosemide (LASIX) 40 mg tablet^Take 1 tablet by mouth once daily.^Disp: 30 tablet^Rfl: 5 sertraline (ZOLOFT) 25 mg tablet^Take 1 tablet by mouth once daily.^Disp: 30 tablet^Rfl: 5 dext 70/polycarbophil/peg/NaCl (ARTIFICIAL TEAR SOLUTION OPHTHALMIC)^Use 1 Drop in eyes as needed.^Disp: ^Rfl: sirolimus (RAPAMUNE) 0.5 mg tablet^Take 1 tablet by mouth once daily. [employer] PAP refill^Disp: 90 tablet^Rfl: 3 dilTIAZem CD (CARDIZEM CD, CARTIA XT) 240 mg 24 hr capsule^Take 1 capsule by mouth once daily.^Disp: 30 capsule^Rfl: 11 sodium bicarbonate 650 mg tablet^TAKE 1 TABLET BY MOUTH THREE TIMES DAILY^Disp: 270 tablet^Rfl: 1 (Patient taking differently: Take 650 mg by mouth twice daily.) carvedilol (COREG) 25 mg tablet^Take 1 tablet by mouth twice daily.^Disp: 60 tablet^Rfl: 5 atorvastatin (LIPITOR) 40 mg tablet^Take 1 tablet by mouth daily at bedtime.^Disp: 30 tablet^Rfl: 5 Blood Pressure Monitor^1 Each twice daily.^Disp: 1 Kit^Rfl: 0 acetaminophen (TYLENOL) 500 mg tablet^Take 2 tablets by mouth every 6 hours as needed for pain.^Disp: ^Rfl: magnesium/vitamin E/pyridoxine (VITAMIN B6-VITAMIN E-MAGNESIUM ORAL)^Take 1 tablet by mouth once daily.^Disp: ^Rfl: gabapentin (NEURONTIN) 100 mg capsule^Take 100 mg by mouth once daily.^Disp: ^Rfl: azelastine (ASTELIN) 0.1% nasal spray^Use 2 Sprays in each nostril twice daily.^Disp: 30 mL^Rfl: 0 (Patient taking differently: Use 2 Sprays in each nostril as needed.) pyridoxine, vitamin B6, (VITAMIN B6) 100 mg tablet^Take 1 tablet by mouth once daily.^Disp: 100 tablet^Rfl: 2 aspirin 81 mg chewable tablet^Take 1 tablet by mouth once daily.^Disp: ^Rfl: Cholecalciferol, Vitamin D3, 5,000 unit tab^Take 1 tablet by mouth once daily.^Disp: ^Rfl: 0 REVIEW OF SYSTEMS: Positives in Bold GENERAL: Negative for: Weight loss or gain, Fever or Chills, Weakness and Sleep difficulties. HEENT: Negative for: Headache, Impaired Vision, Glasses, Hearing Impairment, Ringing in Ears, Nosebleeds, Poor dental care, Bleeding Gums, Dentures NECK: Negative for: Swelling, Pain, Stiffness RESPIRATORY: Negative for: Cough, Blood in Sputum, Shortness of breath, Wheezing, Apnea GASTROINTESTINAL: Negative for: Trouble swallowing, Heartburn, Change in bowel habits, Blood in stool, Dark black stools MUSCULOSKELETAL: Negative for: Muscle or joint pain, Stiffness , Joint swelling NEUROLOGIC/PSYCHIATRIC: Negative for: Weakness, Paralysis, Numbness, Tingling, Tremor, Nervousness,Depressed mood, Memory loss SKIN: Negative for: Rashes, Itching HEMATOLOGICAL/LYMPHATIC: Negative for: Easy bruising , Easy bleeding ENDOCRINE: Negative for: Heat or cold intolerance, Excessive sweating, Frequent urination, Frequentthirst PHYSICAL EXAMINATION: BP 138/73 Pulse 69 Resp 18 Wt 88.5 kg (195 lb) SpO2 98% BMI 30.54 kg/m General: In no acute distress. Neck: no jugular venous distention, Lungs: Clear to auscultation bilaterally, no wheezing or rhonchi. Heart: Regular rhythm, S1, S2 normal Extremities: No peripheral edema Neuro: Oriented to person, place and time, alert, cooperative CARDIOVASCULAR MEDICINE TESTING: Last EKG Result Conclusion ECG COMPLETE Collected: 05/13/2023 9:56 AM (Preliminary result) Impression: SINUS RHYTHM WITH 1ST DEGREE AV BLOCK ST & LATERAL T WAVE ABNORMALITY ABNORMAL ECG OSH Echo 04/27/23 (Images uploaded to [employer]) NM Pharm Stress Test 11/15/21: CONCLUSIONS: 1. SPECT Perfusion Study: Abnormal. 2. There is a moderate (10-20%) fixed perfusion defect in the LCX territory, with mild (<10%) xochitl-defect ischemia. 3. Left ventricle is normal in size. The left ventricle systolic function is normal. 4. Right ventricle is normal in size. The right ventricle systolic function is normal. 5. This is an intermediate risk scan. Gated Stress FBP Gated Rest FBP LVEF % 62 61 NM Pharm Stress Test 05/13/23: CONCLUSIONS: 1. SPECT Perfusion Study: Abnormal. 2. There is a moderate (10-20%) fixed perfusion defect in the LCX territory. 3. There is mild (<10%) xochitl-infarct ischemia in the territory of the LCX. 4. Left ventricle is normal in size. The left ventricle systolic function is normal. 5. Right ventricle is normal in size. The right ventricle systolic function is normal. 6. This is a high risk scan due to drop in LVEF with stress or TID and area of scar/ischemia. 7. There is transient ischemic dilation of the LV cavity with stress. Gated Stress FBP Gated Rest FBP LVEF % 59 58 Component Latest Ref Rng & Units 05/02/2023 05/06/2023 05/09/2023 Glucose 74 - 99 mg/dL 206 (H) 135 (H) 216 (H) BUN 9 - 24 mg/dL 64 (H) 56 (H) 61 (H) Creatinine 0.73 - 1.22 mg/dL 3.71 (H) 3.86 (H) 3.77 (H) Sodium 136 - 144 mmol/L 143 141 140 Potassium 3.7 - 5.1 mmol/L 5.4 (H) 5.6 (H) 4.7 Chloride 97 - 105 mmol/L 104 105 105 CO2 22 - 30 mmol/L 23 23 21 (L) Anion Gap 9 - 18 mmol/L 16 13 14 Calcium 8.5 - 10.2 mg/dL 9.8 10.2 9.9 eGFR >=60 mL/min/1.73m 16 (L) 15 (L) 16 (L) NT Pro BNP <450 pg/mL 4,686 (H) 4,001 (H) 3,677 (H) IMPRESSION: History as stated above. I am following up with Mr. Sanon to review results of stress test. See above for more details leading up to stress test. Stress test today showing moderate (10 to 20%) fixedperfusion defect in left circumflex territory and mild (less than 10%) xochitl-infarct ischemia in theterritory of the left circumflex. There was transient ischemic dilation of the LV cavity with stress. This was a high risk scan. The findings of the fixed perfusion defect in the xochitl-infarct ischemia were on his previous stress test October 2021 at which time he was determined to medically manage specially given his CKD. Of concern today is that there is now transient ischemic dilation of the LV cavity with stress. It would be best to consider left heart catheterization for further work-up however he is rightfully concerned about his creatinine with his CKD stage IV and the possible damage contrast dye would do to his kidneys. If proceeding with heart cath, would request biplane room for minimal dye exposure. It is reassuring that Mr. Sanon is not having any chest pain and overall feels better after being diuresed. His weight is down over 20 pounds with being diuresed. Mr. Sanon would like to discuss the left heart cath with his digital program manager and liver transplant team prior to proceeding which is reasonable. He can follow-up with Dr. Dawson in 2-3 months for close follow up and to monitor his symptoms. PLAN AND RECOMMENDATIONS: PET stress and Plan discussed/formulated along with Dr Dawson. -Continue current medication regimen -Consider left heart cath in the near future if Mr Sanon decides he would like to proceed after discussing with his digital program manager and liver transplant team. [facility] would need to be in biplane room for minimal dye due to CKD stg 4. -Follow up with Dr Dawson in 2-3 months for close follow up and monitoring of any symptoms I spent 40 minutes in the visit, with more than 50% of the total [id number] time of the visit in counseling / coordination of care. This note was partially generated using [employer] voice recognition system, and there may be some incorrect words, spellings, and punctuation that were not noted in checking the note before saving. Nanci Lima APRN.DIRECTOR SOFTWARE QUALITY ASSURANCE documented in this encounterMercy Health [facility]09-25-2023 History of Present illness Narrative* Lee Manning, RT(R) - 05/13/2023 8:00 AM EDT RADIOLOGY SERVICE PROGRESS NOTE SERVICE DATE: 05/13/2023 SERVICE TIME: 7:31 AM PATIENT IDENTITY VERIFICATION COMPLETED USING TWO (2) STANDARD IDENTIFIERS: Name and Date of confirmed by patient verbally and Name and Date of confirmed by identification band FALL SCREENING: Has the patient had 2 falls in the last year or 1 fall with injury or currently using an Ambulatory Assistive Device (Walker, Cane, Wheelchair, Crutches, etc.)? Yes, Patient High Riskfor Falls What interventions were put in place to prevent falls during this visit? Yellow Falls Risk Wristband Applied PATIENT GENDER DATA: .male ALLERGIES: Reviewed and unchanged MEDICATIONS REVIEWED: Yes PATIENT RELEVANT IMPLANT DATA REVIEWED: Not Applicable CREATININE: Creatinine Date Value Ref Range Status 05/09/2023 3.77 (H) 0.73 - 1.22 mg/dL Final 05/06/2023 3.86 (H) 0.73 - 1.22 mg/dL Final 05/02/2023 3.71 (H) 0.73 - 1.22 mg/dL Final Estimated Glomerular Filtration Rate Date Value Ref Range Status 05/09/2023 16 (L) >=60 mL/min/1.73m Final Comment: Estimated Glomerular Filtration Rate (eGFR) is calculated using the 2021 CKD-EPI creatinine equation. This equation utilizes serum creatinine, sex, and age as parameters. The creatinine assay has traceable calibration to isotope dilution- mass spectrometry. Refer to KDIGO guidelines for clinical interpretation. In patients with unstable renal function, e.g. those with acute kidney injury, the eGFRmay not accurately reflect actual GFR. eGFR- Date Value Ref Range Status 10/07/2021 27 Final P.O.C.T. RESULTS: N/A May 13, [address] PERFORMED: No IV SITE: Ambulatory: A peripheral IV was started in the Right antecubital site with a Angio cath: 22 gauge. POST EXAM PIV STATUS: Discontinued PROCEDURE TYPE: NM Stress: 13.5 mCi [id number] was administered IV for Rest Imaging at 0725 by Janeth LEMUS. 33.1 mCi [id number] was administered IV for Stress Imaging at 8:34AM by LEE MANNING [facility]. ADMINISTRATION TIME: PATIENT DISCHARGED TO: Ambulatory patient, left [place] department area. A Diagnostic radioactive procedure has taken place, with no further precautions necessary other than routine body substance precautions. More information regarding radiation safety can be found usingthis link: [email or web address]%[email or web address]%20Medicine%[email or web address] SIGNATURE: JOSE LUIS Hernandez) PATIENT NAME: Isaias Sanon DATE: May 13, 2023 TIME: 7:31 AM PAGER/CONTACT #: * Mary Mustafa RN - 05/13/2023 8:00 AM EDT RADIOLOGY SERVICE PROGRESS NOTE SERVICE DATE: 05/13/2023 SERVICE TIME: 8:35 AM PATIENT IDENTITY VERIFICATION COMPLETED USING TWO (2) STANDARD IDENTIFIERS: Name and Date of confirmed by patient verbally and Name and Date of confirmed by identification band PATIENT GENDER DATA: male : No ALLERGIES: Reviewed and unchanged MEDICATIONS REVIEWED BY: Employee Communications Specialist and Mary Mustafa RN PROCEDURE TYPE: NM STRESS: 0.4 mg of Lexiscan was administered IV at 0834 by Mary Mustafa RN. Reversal agent used: None. Expiration date: December 2024 Lot#: [id number] IV SITE: Ambulatory: A Saline lock was inserted per protocol POST EXAM PIV STATUS: Discontinued PATIENT DISCHARGED TO: Ambulatory patient, left [place] department area. A Diagnostic radioactive procedure has taken place, with no further precautions necessary other than routine body substance precautions. More information regarding radiation safety can be found usingthis link: [email or web address]%20Nuclear%20Medicine%[email or web address] SIGNATURE: Mary Mustafa RN PATIENT NAME: Isaias Sanon DATE: May 13, 2023 TIME: 8:35 AM PAGER/CONTACT #: documented in this encounterMercy [facility]09-22-2023 Miscellaneous Notes* Telephone Encounter - Anabel Noeln RN - 05/10/2023 4:41 PM EDT Patient's notified of results and provider's instructions. Patient's verbalizes understanding. Anabel Nolen RN * Telephone Encounter - Alivia Bauman LPN - 05/10/2023 1:54 PM EDT TC to pt. LM to call office, ask for triage nurse to get results. Alivia Bauman LPN * Telephone Encounter - Sanju Banerjee MD - 05/10/2023 1:48 PM EDT Let know kidney labs are stable. His potassium is back to normal and his marker for CHF continues to decrease. So lets just stay with the Furosamide 40 mg once a day. documented in this encounterMercy Health [facility]09-21-2023 Miscellaneous Notes* Telephone Encounter - Antoine Estrada RN - 05/09/2023 2:52 PM EDT Received text from daughter stating PCP instructed them to contact transplant re: low PLT count. Advised Amberly, via text response, transplant not overly concerned with PLT count at this time, currently 88k. Advised PLT count has dropped in the past and returned to normal value with no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 CHOLECYSTECTOMY HX 02/15/2013 COLONOSCOPY 02/08/2013 repeat 10 yrs EYLEA (AFLIBERCEPT) 2MG INTRAVITREAL INJECTION OD (RIGHT EYE) Right 04/07/14 #3 last intravitreal injection, Eylea OD FECAL OCCULT BLOOD TEST 09/13/2016 negative MIDLINE INSERTION/CONSULT 02/13/2013 PAST SURGICAL HISTORY OF Tooth extraction PAST SURGICAL HISTORY OF 02/15/2013 liver transplant PAST SURGICAL HISTORY OF 2003. vein stripping Family History Sudden Cardiac - No Premature CAD - No Aortic Disease - No Cardiomyopathy - No Social History Occupation - Retired Place of Residence - [place], [place] Marital Status - Tobacco Use - No Alcohol Use - No Illicit Drug Use - No Allergies/ADRs ALLERGIES Allergen Reactions Seasonal Allergies Cough Sneezing and watering eyes Current Medications Current Outpatient Medications Medication Sig dilTIAZem CD (CARDIZEM CD, CARTIA XT) 240 mg 24 hr capsule Take 1 capsule by mouth once daily. sodium bicarbonate 650 mg tablet TAKE 1 TABLET BY MOUTH THREE TIMES DAILY carvedilol (COREG) 25 mg tablet Take 1 tablet by mouth twice daily. atorvastatin (LIPITOR) 40 mg tablet Take 1 tablet by mouth daily at bedtime. furosemide (LASIX) 20 mg tablet Take 1 tablet by mouth once daily. sirolimus (RAPAMUNE) 0.5 mg tablet Take 1 tablet by mouth once daily. [employer] PAP refill acetaminophen (TYLENOL) 500 mg tablet Take 2 tablets by mouth every 6 hours as needed for pain. magnesium/vitamin E/pyridoxine (VITAMIN B6-VITAMIN E-MAGNESIUM ORAL) Take 1 tablet by mouth once daily. gabapentin (NEURONTIN) 100 mg capsule Take 100 mg by mouth once daily. azelastine (ASTELIN) 0.1% nasal spray Use 2 Sprays in each nostril twice daily. (Patient taking differently: Use 2 Sprays in each nostril twice daily as needed.) pyridoxine, vitamin B6, (VITAMIN B6) 100 mg tablet Take 1 tablet by mouth once daily. aspirin 81 mg chewable tablet Take 1 tablet by mouth once daily. Cholecalciferol, Vitamin D3, 5,000 unit tab Take 1 tablet by mouth once daily. Blood Pressure Monitor 1 Each twice daily. Physical Exam Vital Signs: BP 162/63 Pulse 61 Ht 170.2 cm (5' 7 ) Wt 93 kg (205 lb 1.6 oz) SpO2 99% BMI32.12 kg/m General Appearance: Well-appearing man in no distress HEENT: NCAT PERRLA anicteric sclerae Neck: supple, no thyromegaly, no JVD at 45 degrees, normal carotids w/o bruits Cardiac: Regular, normal S1 and S2, no murmurs rubs or gallops, normal PMI Chest: Clear lungs with normal chest wall excursion Abdomen: Soft, non-tender, no masses, bruits or organomegaly Extrem: Warm, pitting lower extremity edema +, R>L Vascular: 2+ pulses, equal bilaterally in upper and lower extremities Skin: Warm, intact, no rashes or lesions Neuro: AAOx3, motor and gait grossly normal Psych: Pleasant; affect, mood and behavior appropriate. Just worried about not being able to work or do anything around the house because of the back pain Recent Laboratory Data Complete Blood Count WBC (k/uL) Date Value 02/16/2023 5.89 01/21/2023 5.28 10/07/2021 6.92 09/25/2021 6.06 RBC (m/uL) Date Value 02/16/2023 3.62 01/21/2023 3.50 10/07/2021 3.40 09/25/2021 3.63 Hemoglobin (g/dL) Date Value 02/16/2023 10.3 01/21/2023 9.9 10/07/2021 9.5 09/25/2021 10.2 Hematocrit (%) Date Value 02/16/2023 32.7 01/21/2023 32.0 10/07/2021 30.3 09/25/2021 32.6 MCV (fL) Date Value 02/16/2023 90.3 01/21/2023 91.4 10/07/2021 89.1 09/25/2021 89.8 Platelet Count (k/uL) Date Value 02/16/2023 124 01/21/2023 119 10/07/2021 159 09/25/2021 138 Metabolic Panel Sodium (mmol/L) Date Value 02/16/2023 141 01/21/2023 142 10/07/2021 137 09/25/2021 139 Potassium (mmol/L) Date Value 02/16/2023 4.7 01/21/2023 4.5 10/07/2021 5.8 09/25/2021 4.8 Chloride (mmol/L) Date Value 02/16/2023 104 01/21/2023 107 10/07/2021 104 09/25/2021 106 CO2 (mmol/L) Date Value 02/16/2023 23 01/21/2023 23 10/07/2021 22 09/25/2021 21 BUN (mg/dL) Date Value 02/16/2023 46 01/21/2023 44 10/07/2021 43 09/25/2021 40 Creatinine (mg/dL) Date Value 02/16/2023 3.52 01/21/2023 3.79 10/07/2021 2.79 09/25/2021 2.87 Calcium (mg/dL) Date Value 10/07/2021 10.0 09/25/2021 9.4 Calcium, Total (mg/dL) Date Value 02/16/2023 10.1 01/21/2023 10.0 Magnesium (mg/dL) Date Value 02/16/2023 2.2 01/21/2023 2.0 10/07/2021 2.0 09/25/2021 1.7 Glucose (mg/dL) Date Value 02/16/2023 138 01/21/2023 135 10/07/2021 129 09/25/2021 122 Hepatic Function Protein, Total (g/dL) Date Value 02/16/2023 6.7 01/21/2023 6.9 10/07/2021 6.6 09/25/2021 6.5 Albumin (g/dL) Date Value 02/16/2023 4.1 01/21/2023 4.3 10/07/2021 3.9 09/25/2021 3.8 Alkaline Phosphatase (U/L) Date Value 02/16/2023 102 01/21/2023 83 10/07/2021 101 09/25/2021 112 Bilirubin, Total (mg/dL) Date Value 02/16/2023 0.4 10/07/2021 0.4 AST (U/L) Date Value 02/16/2023 21 01/21/2023 22 10/07/2021 18 09/25/2021 19 ALT (U/L) Date Value 02/16/2023 17 01/21/2023 20 10/07/2021 18 09/25/2021 20 LD (U/L) Date Value 03/18/2019 195 01/13/2013 266 PT INR (no units) Date Value 12/26/2020 1.0 01/21/2020 1.0 Lipid Panel Cholesterol, Total (mg/dL) Date Value 01/21/2023 130 11/20/2022 122 09/11/2021 145 03/21/2021 149 Total Cholesterol, Nonfasting (mg/dL) Date Value 06/17/2021 169 Triglyceride (mg/dL) Date Value 01/21/2023 95 11/20/2022 53 09/11/2021 81 03/21/2021 150 Triglycerides, Nonfasting (mg/dL) Date Value 06/17/2021 159 HDL Cholesterol (mg/dL) Date Value 01/21/2023 45 11/20/2022 50 09/11/2021 53 03/21/2021 40 HDL Cholesterol, Nonfasting (mg/dL) Date Value 06/17/2021 44 LDL Cholesterol (mg/dL) Date Value 01/21/2023 66 11/20/2022 61 09/11/2021 76 03/21/2021 79 LDL Cholesterol, Nonfasting (mg/dL) Date Value 06/25/2022 72 06/17/2021 93 Biomarkers NT Pro BNP (pg/mL) Date Value 07/03/2021 2,232 06/17/2021 2,182 Lactate (mmol/L) Date Value 02/20/2013 1.2 02/20/2013 1.2 Other TSH (uU/mL) Date Value 06/17/2021 1.760 10/28/2019 1.710 Hemoglobin A1C (%) Date Value 12/06/2022 6.3 06/25/2022 6.4 06/17/2021 7.0 11/17/2020 7.0 Vitamin D 25 Hydroxy (ng/mL) Date Value 05/21/2019 41.5 06/19/2016 42.1 d Dimer (ng/mL FEU) Date Value 02/13/2013 12,780 Iron (ug/dL) Date Value 06/17/2021 62 12/21/2019 59 ABO/RH(D) (no units) Date Value 10/11/2021 O POSITIVE 10/26/2019 O POSITIVE Antibody Screen (no units) Date Value 12/14/2021 Negative 12/09/2021 Negative 10/11/2021 NEG 10/26/2019 NEG Other Relevant Test Results Myocardial SPECT - 11/15/2021 CONCLUSIONS: 1. SPECT Perfusion Study: Abnormal. 2. There is a moderate (10-20%) fixed perfusion defect in the LCX territory, with mild (<10%) xochitl-defect ischemia. 3. Left ventricle is normal in size. The left ventricle systolic function is normal. 4. Right ventricle is normal in size. The right ventricle systolic function is normal. 5. This is an intermediate risk scan. Gated Stress FBP Gated Rest FBP LVEF % 62 61 Echocardiogram - 11/15/2021 - The left ventricle is normal in size. There is mild concentric left ventricular hypertrophy. Left ventricular systolic function is normal. EF = 58 5% (2D biplane) Grade II left ventricular diastolic dysfunction. - The right ventricle is normal in size. Right ventricular systolic function is normal. - The left atrial cavity is severely dilated. - The visualized aorta is borderline dilated with a maximal dimension of 3.8 cm. - There is moderate mitral annular calcification observed posterior. There is mild (1+) mitral valve regurgitation. - Aortic sclerosis with no stenosis. - Exam was compared with the prior echocardiographic exam performed on 10/27/2019. Evidence of elevated left sided filling pressures now present. Impression Isaias Sanon is a 77 year-old man with a PMHx of CKD stage 4, chronic stable angina, stroke, alcoholic cirrhosis and hemochromatosis s/p liver transplant in 2012, DVT in 2013, who is here today for checking his heart and for shortness of breath. His blood pressure was high during the office visit, which he says is typical for him during doctor's office appointments. His home readings are in the 130s/60s. His shortness of breath is likely multifactorial, due to his existing CKD, anemia and LV diastolic dysfunction along with deconditioning. He has moderate fixed perfusion defect in LCx per stress teston 11/15/21, however, no anginal symptoms and is stable clinically since last cardiac work up in 10/2021. On today's exam, he doesn't appear to be volume overloaded. His lungs are clear, no JVD, has minimal pedal edema R>L likely due to his prior DVT and varicose veins. His lasix dose of 20 mg seems low for his degree of CKD, and considering increasing diuretic dose after discussion with his digital program manager is reasonable, and might help with his shortness of breath. His anemia appears to be chronic Hb between 9 and 10, likely due to CKD. Might benefit from erythropoietin treatment. Although there hasn't been clinical worsening, it is reasonable to check another ECHO to assess LV function, EKG andblood work. Recommendations - Continue same medications - Can go up on diuresis after discussion with Dr. Fontenot - Follow up visit in 1 year at the time of his visit with Dr. Fontenot, with echo, EKG and blood work. Derik Cunningham MD PGY-1 Cardiology Staff Not I have personally interviewed and examined the patient and verified the stephenson components of the history and physical examination. The assessment and plan were formulated and discussed with the medicineresident (Dr. Derik Cunningham) and my findings and impressions are reflected in his note. Please refer to Dr. Cunningham's note for further details. 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 He currently describes NYHA class II-III shortness of breath that has not changed much over the last year or so. He denies chest pain, orthopnea or PND. His medical regimen has been largely unchanged and his blood pressure control by home measurement has been good. He has stable anemia and stable advanced CKD and is followed closely by nephrology. His physical examination is noteworthy for a brawny complexion with some bilateral legedema but normal neck veins at 45 degrees without concerning cardiovascular findings. I suspect his shortness of breath is multifactorial and doing a large part to his underlying anemiaplus obesity/deconditioning and some element of heart failure with preserved systolic function in the setting of advanced kidney disease. At the present time he is not floridly volume overloaded and I do not think he needs more aggressive diuresis. Recommendations Continue present medical therapy. I will plan to see him in 6 months in conjunction with his follow-up visit with nephrology (Dr. Fontenot). At that time I will arrange for an ECG, echocardiogram and basic blood work. If he appears to be retaining volume then I may need to discuss with Dr. Fontenot whether a more aggressive approach to loop diuresis may be of benefit. Jonah Dawson M.D., F.A.C.C. Staff Public Service Director, Heart and Vascular [place] [facility] * Jonah Dawson MD - 02/25/2023 8:00 AM EDT See above documented in this encounterMercy Health [facility]07-10-2023 Instructions* Patient Instructions* Jonah Dawson MD - 02/25/2023 9:54 AM EDT Keep your medications the same for now. I will see you back again in six months when you see Dr. Fontenot and we will do an ECG, echocardiogram and blood work then documented in this encounterMercy Health [facility]06-29-2023 History of Present illness Narrative* Tracy Brito RN - 02/14/2023 3:42 PM EDT Optimal Transition Program - RNCC Collaboration Chronic Kidney Disease stage 4: Yes Chronic Kidney Disease stage 5: No Review of patient Plan of Care: Spoke with patient's spouse, Brittani. She states the patient has H/O liver transplant in 2012 and issues with blood clots since then. He also suffered a CVA post op and has difficulty ambulating. OTP Renal Anemia: HGB = 9.9 on 01/21/23 OTP Transplant Evaluation: Patient interested in Ktx?: N/A Patient with exclusion criteria: n/a Has an order been placed for a Tx consult?: N/A OTP Renal Replacement Therapy Education: Patient referred to dialysis education: Yes, today. Referred to: Ginger Leija at [facility] Dialysis education completed: Not applicable. Patient agrees to dialysis: Not applicable. 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 Creat 2.5-3 PMH OLT 2012 hemochromatosis/EtOH -RAPA DVT ICB 2019 Last seen 07/10, stable creatinine around 3.2 back on the Rapamune. He has chronic right lower extremity edema that recently had an increased dose of Lasix and duplex that ruled out a DVT. He has history of having DVT in the past He denies any shortness of breath chest pain nausea vomiting dizziness lightheadedness. Back on Lasix 20 mg p.o. daily. Very concerned about needing dialysis PE: BP 173/73 Pulse (!) 57 Ht 170.2 cm (5' 7 ) Wt 95.3 kg (210 lb) BMI 32.89 kg/m Average BP: 173/73 Average Pulse: 57 beats/min Standing BP : 161/66 Standing pulse : 65 GENERAL: Nad NECK: no JVD LYMPH: non LUNGS: clear to a CV: rrr ABD:soft ,nontender EXT: 1-2+ R ua 2+ prot Creatinine (mg/dL) Date Value 12/13/2022 3.89 12/06/2022 3.59 11/20/2022 3.47 10/07/2021 2.79 09/25/2021 2.87 09/11/2021 2.86 BUN (mg/dL) Date Value 12/13/2022 55 12/06/2022 46 11/20/2022 43 10/07/2021 43 09/25/2021 40 09/11/2021 39 Estimated Glomerular Filtration Rate (mL/min/1.73m ) Date Value 12/13/2022 15 12/06/2022 17 11/20/2022 17 CO2 (mmol/L) Date Value 12/13/2022 24 12/06/2022 23 11/20/2022 25 10/07/2021 22 09/25/2021 21 09/11/2021 23 Potassium (mmol/L) Date Value 12/13/2022 5.1 12/06/2022 5.1 11/20/2022 4.6 10/07/2021 5.8 09/25/2021 4.8 09/11/2021 5.1 Rapamune/Sirolimus (ng/mL) Date Value 11/20/2022 7.6 10/18/2022 6.8 09/19/2022 6.3 Hemoglobin (g/dL) Date Value 11/20/2022 9.4 10/18/2022 9.6 09/19/2022 10.4 10/07/2021 9.5 09/25/2021 10.2 09/11/2021 9.6 Platelet Count (k/uL) Date Value 11/20/2022 121 10/18/2022 134 09/19/2022 142 10/07/2021 159 09/25/2021 138 09/11/2021 151 WBC (k/uL) Date Value 11/20/2022 5.71 10/18/2022 5.76 09/19/2022 6.42 10/07/2021 6.92 09/25/2021 6.06 09/11/2021 5.91 Albumin (g/dL) Date Value 11/20/2022 4.0 10/18/2022 4.0 09/19/2022 4.2 10/07/2021 3.9 09/25/2021 3.8 09/11/2021 3.9 Phosphorus (mg/dL) Date Value 11/20/2022 3.8 10/18/2022 3.8 09/19/2022 4.4 10/07/2021 3.4 09/25/2021 4.0 09/11/2021 4.5 Assessment : Proteinuric nonnephrotic range chronic kidney disease in the setting of long- term liver transplant.Some progression since last saw him GFR now fluctuating between 15 and 20 cc/min. Creatinine between 2.5 and 3. Recent increase could be related to the fact that he took increased dose of Lasix to try to resolvea chronic right lower extremity edema. Back onto his regular dose. No significant symptoms associated with increased creatinine appears close to euvolemia. BP not controlled today 9 (unusual) apparently they had an interesting ride to the clinic will monitor. Cont coreg. dilt and lasix Chronic anemia eventually may be a candidate for SERVANDO. He will let us know when he has labs next. We had a long discussion about renal replacement therapyhe is not interested, only as a last resort . He and his will think about it we will discuss it at more length next time I see him Return to clinic in 6-month Noman Fontenot MD This note was partially generated using [employer] voice recognition system, and there may be some incorrect words, spellings, and punctuation that were not noted in checking the note before saving. (N18.4) CKD (chronic kidney disease) stage 4, GFR 15-29 ml/min (HCC) (primary encounter diagnosis) (R80.9) Proteinuria, unspecified type (Z94.4) Liver transplanted (HCC) (I10) Benign essential HTN documented in this encounterMer[facility]05-03-2023 Miscellaneous Notes* Telephone Encounter - Noé Escobedo LPN - 12/19/2022 9:08 AM EDT Pt's notified of same. Noé Escobedo LPN * Telephone Encounter - Noé Escobedo LPN - 12/19/2022 9:07 AM EDT ----- Message from Claudia Roberts PA-C sent at 12/19/2022 9:00 AM EDT ----- US is negative for blood clot documented in this encounterMercy Health [facility]04-28-2023 Miscellaneous Notes* Telephone Encounter - Noé Escobedo LPN - 12/14/2022 9:42 AM EDT Pt's notified of same, verbalizes understanding. Noé Escobedo LPN * Telephone Encounter - Noé Escobedo LPN - 12/14/2022 9:40 AM EDT ----- Message from Claudia Roberts PA-C sent at 12/14/2022 8:46 AM EDT ----- Labs stable. Keep follow up next week. documented in this encounterMercy Health [facility]04-21-2023 Miscellaneous Notes* Telephone Encounter - Noé Escobedo LPN - 12/07/2022 8:34 AM EDT Left message of results on pt's 's identified vm. Noé Escobedo LPN * Telephone Encounter - Claudia Roberts PA-C - 12/07/2022 7:25 AM EDT Let patient know that his labs are stable. documented in this encounterMercy Health [facility]04-20-2023 Miscellaneous Notes* Telephone Encounter - Lori Norris Ma - 12/06/2022 2:06 PM EDT Patient was notified Lori Norris Ma * Telephone Encounter - Claudia Roberts PA-C - 12/06/2022 1:44 PM EDT Let patient know that after the 5 days of increased lasix, we need another lab check to make sure no significant changes in kidney function. Order already placed. Claudia Roberts PA-C documented in this encounterMercy Health [facility] Hospital04-20-2023 Instructions* Patient Instructions* Claudia Roberts PA-C - 12/06/2022 9:35 AM EDT Take 2 of your lasix for the next 5 days then go back to once a day. documented in this encounterMercy Health [facility] Hospital04-20-2023 History of Present illness Narrative* Claudia Roberts PA-C - 12/06/2022 9:16 AM EDT Chief Complaint Patient presents with: 6 Month Exam HPI Isaias Sanon is a 77 year old male who presents here today for Chronic Medical Conditions.. Patient with hx of CAD, DM, HTN, hyperlipidemia, GERD, CKD, Obesity, previous liver transplant and those as below. Patient states the he is noticing more leg swelling of the R leg. Denies chest pain. Some shortness of breath with activity which isn't necessarily new Otherwise he is doing okay. Past medical history, appointments, medications, allergies reviewed. Previous Medical History PAST MEDICAL HISTORY Diagnosis Date Abdominal hernia without obstruction and without gangrene 06/19/2016 Advance directive discussed with patient 06/06/2022 Discussed 05/2022 Amblyopia of left eye Anemia of renal disease 11/25/2019 Arthritis Ascites 01/13/2013 Patient denies known history of SBP. Denies current abdominal tenderness, and no large volume ascites with need for paracentesis 02/06/2013. Plan: - ? Diuretics - will D/W nephrology Balance problem 06/19/2016 Bilateral leg edema 01/22/2020 BRVO (branch retinal vein occlusion) OS Cataract of both eyes Chronic lumbar pain 06/16/2020 Chronic pain of both ankles 12/13/2017 CKD (chronic kidney disease) stage 3, GFR 30-59 ml/min ([facility]) 06/19/[address] Vipul Perez [facility] CKD (chronic kidney disease) stage 4, GFR 15-29 ml/min ([facility]) 06/19/[address] 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 Plan: Continue pantoprazole 40mg qday. Elevated prostate specific antigen (PSA) 10/19/2016 Normal 10/2017 with free PSA at 44% Essential hypertension 05/18/2014 11/08/2014: Home BP Cuff Validated. Home BP: 167/94 pulse 79. Office BP: 157/91 pulse 76. Gastroesophageal reflux disease without esophagitis 08/24/2015 GIB (gastrointestinal bleeding) 01/13/2013 Patient presents with three episodes of BRBPR onset around 2pm 02/06/2013. He endorses a history of BRBPR during an admission at [facility] in December 2012 for which he states no workup or colonoscopy wasperformed. During his last admission at [facility] he endorses having passed old blood , and underwent EGD 01/31/13 showing a small polyp/hypertrophied fold at the cardia, severe portal hypertensive gastropathy in the entire stomach, and multiple superficial duodenal ulcers. EGD EUS performed 02/03/13 showed several portal hypertensive gastropathy, and normal endoscopic ultrasound examination of the previous area of concern (polyp vs. gastric fold). He was started on PPI BID and discharged 02/04/13 at which time hemoglobin was 8.6. In the ED 02/06/13, Hgb is 8.4, Hct 24.4, plt 41. Last colonoscopy was 2 years ago per patient, and he reports normal findings to be repeated in 2014. Etiologies of current episode includes internal hemorrhoids (no external hemorrhoids seen on examination), diverticular bleeding, AVM, varice [place] filter in place 04/06/2019 History of alcohol abuse Quit 2011 History of cirrhosis of liver Secondary to alcohol abuse and hemochromatosis. Sees Dr. Doss (at [facility]): Secondary to alcohol abuse and hemochromatosis, currently on transplant list. MELD Score: 35 Plan: - continue homemedications: nadolol, norfloxacin, zinc, lactulose, rifaximin, folic acid. 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 Currently alert, oriented x3, no signs of decompensated encephalopathy. Plan: - continue home regimen of lactulose, rifaximin and zinc History of hemochromatosis 08/24/2015 Has not been an issue since liver transplant. Hyperbilirubinemia 01/13/2013 Hypertensive retinopathy mild ICH (intracerebral hemorrhage) (HCC) Imbalance 06/01/2014 Noted at PT eval on 05/31/2014. Incisional hernia 04/07/2014 Liver transplanted (HCC) 04/07/[address] 06/06/2022 DPA: Brittani () Lupus anticoagulant syndrome (HCC) 10/28/2019 Medicare annual wellness visit, subsequent 05/18/2021 Medicare part B: Not able to find Last done: 05/18/2021 Mixed hyperlipidemia 06/23/2014 Obesity, Class I, BMI 30-34.9 10/27/2019 Osteopenia 11/26/2013 Other proteinuria 10/21/2017 Seeing renal Retinal edema S/P hernia repair 12/13/2021 Secondary hyperparathyroidism of renal origin (HCC) 10/19/2019 Thoracic aorta atherosclerosis (HCC) 10/12/2021 Thrombocytopenia (HCC) 05/18/2014 Vertigo 05/18/2014 Previous Surgical History PAST SURGICAL HISTORY Procedure Laterality Date APPENDECTOMY HX 02/15/2013 AVASTIN (BEVACIZUMAB) 1.25MG INTRAVITREAL INJECTION OD (RIGHT EYE) Right 01/12/16 last od AVASTIN (BEVACIZUMAB) 1.25MG INTRAVITREAL INJECTION OD (RIGHT EYE) Right 04/04/16 CHOLECYSTECTOMY HX 02/15/2013 COLONOSCOPY 02/08/2013 repeat 10 yrs EYLEA (AFLIBERCEPT) 2MG INTRAVITREAL INJECTION OD (RIGHT EYE) Right 04/07/14 #3 last intravitreal injection, Eylea OD FECAL OCCULT BLOOD TEST 09/13/2016 negative MIDLINE INSERTION/CONSULT 02/13/2013 PAST SURGICAL HISTORY OF Tooth extraction PAST SURGICAL HISTORY OF 02/15/2013 liver transplant PAST SURGICAL HISTORY OF 2003. vein stripping Family History FAMILY HISTORY Problem Relation Age of Onset other (MVA) Mother killed other (mva) Father killed other (hemachromatosis) Sister of breast ca at age 75 No Known Problems Sister COPD Sister other (hemachromatosis) Brother does not have any liver problems other (Bone Cancer) Brother No Known Problems Brother No Known Problems Maternal Grandmother No Known Problems Maternal Grandfather No Known Problems Paternal Grandmother No Known Problems Paternal Grandfather No Ocular Disease No Family History nothing known of Anesthesia Problems No Family History Patient Allergies ALLERGIES Allergen Reactions Seasonal Allergies Cough Sneezing and watering eyes Current Medications Current Outpatient Medications on File Prior to Visit Medication Sig furosemide (LASIX) 20 mg tablet Take 1 tablet by mouth once daily. sodium bicarbonate 650 mg tablet Take 1 tablet by mouth three times daily. sirolimus (RAPAMUNE) 0.5 mg tablet Take 1 tablet by mouth once daily. [employer] PAP refill Blood Pressure Monitor 1 Each twice daily. atorvastatin (LIPITOR) 40 mg tablet Take 1 tablet by mouth daily at bedtime. carvedilol (COREG) 25 mg tablet Take 1 tablet by mouth twice daily. dilTIAZem CD (CARDIZEM CD, CARTIA XT) 240 mg 24 hr capsule Take 1 capsule by mouth once daily. acetaminophen (TYLENOL) 500 mg tablet Take 2 tablets by mouth every 6 hours as needed for pain. magnesium/vitamin E/pyridoxine (VITAMIN B6-VITAMIN E-MAGNESIUM ORAL) Take 1 tablet by mouth once daily. gabapentin (NEURONTIN) 100 mg capsule Take 100 mg by mouth once daily. tacrolimus IR (PROGRAF) 0.5 mg capsule Take 1 capsule by mouth twice daily. azelastine (ASTELIN) 0.1% nasal spray Use 2 Sprays in each nostril twice daily. (Patient taking differently: Use 2 Sprays in each nostril twice daily as needed.) pyridoxine, vitamin B6, (VITAMIN B6) 100 mg tablet Take 1 tablet by mouth once daily. aspirin 81 mg chewable tablet Take 1 tablet by mouth once daily. Cholecalciferol, Vitamin D3, 5,000 unit tab Take 1 tablet by mouth once daily. No current facility-administered medications on file prior to visit. Social History Social History Tobacco Use Smoking status: Never Smokeless tobacco: Never Vaping Use Vaping Use: Never used Substance Use Topics Alcohol use: No Alcohol/week: 0.0 standard drinks Comment: last drink was in July 2012 Drug use: No Review of Symptoms REVIEW OF SYSTEMS GENERAL: No weight loss, malaise or fevers NECK: Negative for lumps, goiter, pain and significant neck swelling RESPIRATORY: Negative for cough, hemoptysis, wheezing, COPD, dyspnea or shortness of breath. See hpi CARDIOVASCULAR: See hpi Negative for chest pain, hypertension, CHF or palpitations NEURO: No history of headaches, syncope, paralysis, seizures or tremors EXAM: BP 136/66 (BP Site: Right Arm, BP Position: Sitting, BP Cuff Size: Large Adult) Pulse (!) 58 Temp 36.2 C (97.1 F) Resp 18 Wt 93.9 kg (207 lb) BMI 32.42 kg/m General Appearance: Well appearing, alert, in no acute distress, well-hydrated, well nourished.. Neck: Supple, no adenopathy; thyroid symmetric, normal size, no bruits. Lungs: Lungs clear to auscultation. No wheezing, rhonchi, rales.. Heart: RRR without murmur, gallop, or rubs. No ectopy. Extremities: 3+edema noted on right leg. Neg homans. No pain No deformities, skin discoloration, clubbing or cyanosis. Good capillary refill. . Peripheral Pulses: Normal. Health Maintenance List DILATED RETINAL EXAM due on 08/28/2018 ADVANCE DIRECTIVE DISCUSSION due on 08/19/2022 DEPRESSION ASSESSMENT due on 08/19/2022 BP CONTROLLED (<130/80) due on 11/16/2022 SHINGRIX VACCINE(1 of 2) due on 06/06/2023 HBA1C due on 12/23/2022 DTAP,TDAP,TD(2 - Td or Tdap) due on 02/01/2023 DIABETIC FOOT EXAM due on 06/06/2023 ANNUAL PCP TEAM CHRONIC DISEASE VISIT due on 06/25/2023 LDL CHOLESTEROL due on 11/21/2023 SERUM CREATININE due on 11/21/2023 HEMOGLOBIN/HEMATOCRIT due on 11/21/2023 HEPATITIS B Completed INFLUENZA Completed HEPATITIS C SCREENING Completed COVID-19 VACCINE Completed PNEUMOCOCCAL: 65+ Completed HPV VACCINE Aged Out Data reviewed Component Latest Ref Rng & Units 11/20/2022 Protein, Total 6.3 - 8.0 g/dL 6.5 Albumin 3.9 - 4.9 g/dL 4.0 Calcium 8.5 - 10.2 mg/dL 9.9 Bilirubin, Total 0.2 - 1.3 mg/dL 0.3 Alkaline Phosphatase 38 - 113 U/L 76 AST 14 - 40 U/L 25 ALT 10 - 54 U/L 37 Glucose 74 - 99 mg/dL 134 (H) BUN 9 - 24 mg/dL 43 (H) Creatinine 0.73 - 1.22 mg/dL 3.47 (H) Sodium 136 - 144 mmol/L 142 Potassium 3.7 - 5.1 mmol/L 4.6 Chloride 97 - 105 mmol/L 107 (H) CO2 22 - 30 mmol/L 25 Anion Gap 9 - 18 mmol/L 10 eGFR >=60 mL/min/1.73m 17 (L) Cholesterol, Total <200 mg/dL 122 Triglyceride <150 mg/dL 53 HDL Cholesterol >39 mg/dL 50 Non HDL Cholesterol <130 mg/dL 72 Fasting Time hrs 13 VLDL Cholesterol <30 mg/dL 11 TC:HDL Ratio <5.10 2.44 LDL Cholesterol <100 mg/dL 61 LDL:HDL Ratio <2.54 1.22 ASSESSMENT/PLAN: 1. Type 2 diabetes mellitus with stage 3b chronic kidney disease, without long- term current use of insulin (HCC) - ICD9: 250.40, 585.3, ICD10: E11.22, N18.32 (primary diagnosis) Await lab - Continue current medications - eGFR: Stable Cont with nephrology - HGB A1C - BASIC METABOLIC PNL 2. Mixed hyperlipidemia - ICD9: 272.2, ICD10: E78.2 - good control - Encouraged following a low carbohydrate, healthy oil intake diet. - Continue current therapy. 3. 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 Essential hypertension - ICD9: 401.9, ICD10: I10 - good control - Continue current medication(s) - Recommended regular aerobic exercise. - Recommend home blood pressure monitoring, to bring results in on next visit - Goal of BP <130/80 - BASIC METABOLIC PNL 5. Hypertensive kidney disease with stage 4 chronic kidney disease (HCC) - ICD9: 403.90, 585.4, ICD10: I12.9, N18.4 Cont with nephrology 6. Thoracic aorta atherosclerosis (HCC) - ICD9: 440.0, ICD10: I70.0 Patient needs to set up with cardio 7. Gastroesophageal reflux disease without esophagitis - ICD9: 530.81, ICD10: K21.9 stable 8. CKD (chronic kidney disease) stage 4, GFR 15-29 ml/min (HCC) - ICD9: 585.4, ICD10: N18.4 Continue with nephrology 9. Right leg swelling - ICD9: 729.81, ICD10: M79.89 Will increase lasix x5 days. Recehck BMP at end of that course. Follow up in 2 weeks or sooner as needed. - US LEG VEIN DVT UNL VAS LAB Claudia Roberts PA-C documented in this encounterMer[facility]12-15-2022 Miscellaneous Notes* Telephone Encounter - Antoine Estrada RN - 08/02/2022 10:15 AM EST The following approved medication requests have been transmitted electronically. Requested Prescriptions Signed Prescriptions Disp Refills sirolimus (RAPAMUNE) 0.5 mg tablet 90 tablet 3 Sig: Take 1 tablet by mouth once daily. [employer] PAP refill Authorizing Provider: NATHALY NEVILLE RN * Telephone Encounter - Antoine Estrada RN - 08/02/2022 9:49 AM EST [employer] PAP no longer available. Per daughterAmberly, request will send new Rx to local [facility] pharmacy. Patient's request for medication is as follows: Requested Prescriptions Pending Prescriptions Disp Refills sirolimus (RAPAMUNE) 0.5 mg tablet 90 tablet 3 Sig: Take 1 tablet by mouth once daily. [employer] PAP refill Please approve the above prescription(s) to electronically send to pharmacy. Antoine L Botetourt, RN * Telephone Encounter - Antoine Estrada RN - 07/30/2022 1:13 PM EST Spoke with Amberly, advised our office is aware [employer] will no longer offer Rapamune PAP. Amberly reportsshe located a knew PAP program and will text me the information required. CLIFFORD Page, RN, [facility] Liver Binder Operator * Telephone Encounter - Morenita Roberts - 07/26/2022 1:10 PM EST Patient's daughter/Amberly called requesting a c/b from her father's Coordinator on Monday 07/30/upon her return, regarding the Rapamune being in short supply. documented in this encounterMercy Health Fairfield Hospital11-21-2022 History of Present illness Narrative* Noman Fontenot MD - 07/09/2022 2:08 PM EST Patient is a 77 year old male who presents for follow up proteuric CKD iun the setting of long tem OLT. Creat 2.5-3 PMH OLT 2012 hemochromatosis/EtOH -RAPA DVT ICB 2019 Last seen 12/07 Had hernia repaired- was pplaced back on CNI- had Nasir creat peaked at 4 Last creat 3.2 Interval Hx: No CP/SOB, Fevers, chills, dysuria. No dysphagia, changes in appetite, nausea or vomiting, diarrhea, new skin lesions, edema. Weight steady. All other systems negative. PE: BP 151/71 Pulse (!) 53 Ht 170.2 cm (5' 7 ) Wt 87.5 kg (193 lb) BMI 30.23 kg/m Average BP: 151/71 Average Pulse: 53 beats/min Standing BP : 121/72 GENERAL: Nad HEENT: no thrush NECK: no JVD LYMPH: non LUNGS: clear to a CV: rrr ABD:soft ,nontender EXT: no edema SKIN:no rash Creatinine (mg/dL) Date Value 06/28/2022 3.28 05/21/2022 3.40 04/21/2022 2.97 10/07/2021 2.79 09/25/2021 2.87 09/11/2021 2.86 BUN (mg/dL) Date Value 06/28/2022 49 05/21/2022 35 04/21/2022 49 10/07/2021 43 09/25/2021 40 09/11/2021 39 Estimated Glomerular Filtration Rate (mL/min/1.73m ) Date Value 06/28/2022 19 05/21/2022 18 04/21/2022 21 CO2 (mmol/L) Date Value 06/28/2022 25 05/21/2022 25 04/21/2022 24 10/07/2021 22 09/25/2021 21 09/11/2021 23 Potassium (mmol/L) Date Value 06/28/2022 4.5 05/21/2022 5.1 04/21/2022 4.4 10/07/2021 5.8 09/25/2021 4.8 09/11/2021 5.1 Sirolimus/Rapamune (ng/mL) Date Value 08/17/2021 7.3 06/17/2021 8.3 04/17/2021 7.9 Rapamune/Sirolimus (ng/mL) Date Value 06/28/2022 5.8 06/25/2022 5.7 05/21/2022 5.4 Hemoglobin (g/dL) Date Value 06/28/2022 10.7 05/21/2022 10.3 04/21/2022 10.0 10/07/2021 9.5 09/25/2021 10.2 09/11/2021 9.6 Platelet Count (k/uL) Date Value 06/28/2022 124 05/21/2022 145 04/21/2022 134 10/07/2021 159 09/25/2021 138 09/11/2021 151 WBC (k/uL) Date Value 06/28/2022 4.42 05/21/2022 5.04 04/21/2022 4.42 10/07/2021 6.92 09/25/2021 6.06 09/11/2021 5.91 Albumin (g/dL) Date Value 06/28/2022 4.0 05/21/2022 4.0 04/21/2022 4.0 10/07/2021 3.9 09/25/2021 3.8 09/11/2021 3.9 Phosphorus (mg/dL) Date Value 06/28/2022 3.8 05/21/2022 3.4 04/21/2022 3.6 10/07/2021 3.4 09/25/2021 4.0 09/11/2021 4.5 Assessment : Proteinuria nonnephrotic range proteinuria chronic kidney disease in the setting of liver transplant in 2012. Most likely combination of previous calcineurin inhibitor exposure and NASIR events. Proteinuria - prb RAPA Last acute kidney injury in December when he had incisional hernia repair creatinine peaked around 4. GFR has not returned completely back to baseline his baseline is around 3 currently is around 3.3. He appears euvolemic, blood pressure is slightly elevated however he has significant bradycardia and a combination of Coreg and Cardizem follows closely with primary care physician. I suspect his new baseline is in the be slightly above 3 again we discussed the natural history theneed to avoid nephrotoxic drugs. Noman Fontenot MD This note was partially generated using [employer] voice recognition system, and there may be some incorrect words, spellings, and punctuation that were not noted in checking the note before saving. documented in this encounterMercy Health Fair[facility]11-11-2022 Miscellaneous Notes* Telephone Encounter - Antoine Estrada RN - 06/29/2022 3:56 PM EST The following approved medication requests have been transmitted electronically. Requested Prescriptions Signed Prescriptions Disp Refills sirolimus (RAPAMUNE) 0.5 mg tablet 90 tablet 3 Sig: Take 1 tablet by mouth once daily. [employer] PAP refill Authorizing Provider: VITO BEAUCHAMP RN * Telephone Encounter - Antoine Estrada RN - 06/29/2022 1:51 PM EST [employer] PAP forms faxed for Rapamune. Refill to be sent electronically. Patient's request for medication is as follows: Requested Prescriptions Pending Prescriptions Disp Refills sirolimus (RAPAMUNE) 0.5 mg tablet 90 tablet 3 Sig: Take 1 tablet by mouth once daily. [employer] PAP refill Please approve the above prescription(s) to electronically send to pharmacy. CLIFFORD Page, RN, [facility] Liver Binder Operator documented in this encounterMercy Health Fairfield Hospital11-11-2022 Miscellaneous Notes* Telephone Encounter - Terra Dang MA - 06/29/2022 9:04 AM EST Patient's notified. Terra Dang MA * Telephone Encounter - Sanju Banerjee MD - 06/28/2022 9:18 PM EST Let patient know A1c was good at 6.4% Urine, prostate lab and lipid panel were all ok. documented in this encounterMercy Health [facility] Hospital11-07-2022 Instructions* Patient Instructions* Claudia Roberts PA-C - 06/25/2022 8:41 AM EST OMRON would be a good option for BP monitor. documented in this encounterMercy Health [facility]11-07-2022 History of Present illness Narrative* Claudia Roberts PA-C - 06/25/2022 8:31 AM EST Chief Complaint Patient presents with: Follow Up: Blood pressure HPI Isaias Sanon is a 77 year old male who presents here today for repeat BP. Patient was seen a couple weeks ago and BP were slightly elevated. Otherwise doing well. No concern. Did labs today so no results yet. Past medical history, appointments, medications, allergies reviewed. Previous Medical History PAST MEDICAL HISTORY Diagnosis Date Abdominal hernia without obstruction and without gangrene 06/19/2016 Advance directive discussed with patient 06/06/2022 Discussed 05/2022 Amblyopia of left eye Anemia of renal disease 11/25/2019 Arthritis Ascites 01/13/2013 Patient denies known history of SBP. Denies current abdominal tenderness, and no large volume ascites with need for paracentesis 02/06/2013. Plan: - ? Diuretics - will D/W nephrology Balance problem 06/19/2016 Bilateral leg edema 01/22/2020 BRVO (branch retinal vein occlusion) OS Cataract of both eyes Chronic lumbar pain 06/16/2020 Chronic pain of both ankles 12/13/2017 CKD (chronic kidney disease) stage 3, GFR 30-59 ml/min ([facility]) 06/19/[address] Vipul Perez [facility] CKD (chronic kidney disease) stage 4, GFR 15-29 ml/min ([facility]) 06/19/[address] 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 Plan: Continue pantoprazole 40mg qday. Elevated prostate specific antigen (PSA) 10/19/2016 Normal 10/2017 with free PSA at 44% Essential hypertension 05/18/2014 11/08/2014: Home BP Cuff Validated. Home BP: 167/94 pulse 79. Office BP: 157/91 pulse 76. Gastroesophageal reflux disease without esophagitis 08/24/2015 GIB (gastrointestinal bleeding) 01/13/2013 Patient presents with three episodes of BRBPR onset around 2pm 02/06/2013. He endorses a history of BRBPR during an admission at [facility] in December 2012 for which he states no workup or colonoscopy wasperformed. During his last admission at [facility] he endorses having passed old blood , and underwent EGD 01/31/13 showing a small polyp/hypertrophied fold at the cardia, severe portal hypertensive gastropathy in the entire stomach, and multiple superficial duodenal ulcers. EGD EUS performed 02/03/13 showed several portal hypertensive gastropathy, and normal endoscopic ultrasound examination of the previous area of concern (polyp vs. gastric fold). He was started on PPI BID and discharged 02/04/13 at which time hemoglobin was 8.6. In the ED 02/06/13, Hgb is 8.4, Hct 24.4, plt 41. Last colonoscopy was 2 years ago per patient, and he reports normal findings to be repeated in 2014. Etiologies of current episode includes internal hemorrhoids (no external hemorrhoids seen on examination), diverticular bleeding, AVM, varice [place] filter in place 04/06/2019 History of alcohol abuse Quit 2011 History of cirrhosis of liver Secondary to alcohol abuse and hemochromatosis. Sees Dr[facility] Doss (at [facility]): Secondary to alcohol abuse and hemochromatosis, currently on transplant list. MELD Score: 35 Plan: - continue homemedications: nadolol, norfloxacin, zinc, lactulose, rifaximin, folic acid. - awaiting transplant History of deep venous thrombosis (DVT) of distal vein of right lower extremity 04/06/2019 [facility] History of encephalopathy 02/06/2013 Secondary to cirrhosis. Currently alert, oriented x3, no signs of decompensated encephalopathy. Plan: - continue home regimen of lactulose, rifaximin and zinc History of hemochromatosis 08/24/2015 Has not been an issue since liver transplant. Hyperbilirubinemia 01/13/2013 Hypertensive retinopathy mild ICH (intracerebral hemorrhage) (HCC) Imbalance 06/01/2014 Noted at PT eval on 05/31/2014. Incisional hernia 04/07/2014 Liver transplanted (HCC) 04/07/[address] 06/06/2022 DPA: Brittani () Lupus anticoagulant syndrome (HCC) 10/28/2019 Medicare annual wellness visit, subsequent 05/18/2021 Medicare part B: Not able to find Last done: 05/18/2021 Mixed hyperlipidemia 06/23/2014 Obesity, Class I, BMI 30-34.9 10/27/2019 Osteopenia 11/26/2013 Other proteinuria 10/21/2017 Seeing renal Retinal edema S/P hernia repair 12/13/2021 Secondary hyperparathyroidism of renal origin (HCC) 10/19/2019 Thoracic aorta atherosclerosis (HCC) 10/12/2021 Thrombocytopenia (HCC) 05/18/2014 Vertigo 05/18/2014 Previous Surgical History PAST SURGICAL HISTORY Procedure Laterality Date APPENDECTOMY HX 02/15/2013 AVASTIN (BEVACIZUMAB) 1.25MG INTRAVITREAL INJECTION OD (RIGHT EYE) Right 01/12/16 last od AVASTIN (BEVACIZUMAB) 1.25MG INTRAVITREAL INJECTION OD (RIGHT EYE) Right 04/04/16 CHOLECYSTECTOMY HX 02/15/2013 COLONOSCOPY 02/08/2013 repeat 10 yrs EYLEA (AFLIBERCEPT) 2MG INTRAVITREAL INJECTION OD (RIGHT EYE) Right 04/07/14 #3 last intravitreal injection, Eylea OD FECAL OCCULT BLOOD TEST 09/13/2016 negative MIDLINE INSERTION/CONSULT 02/13/2013 PAST SURGICAL HISTORY OF Tooth extraction PAST SURGICAL HISTORY OF 02/15/2013 liver transplant PAST SURGICAL HISTORY OF 2003. vein stripping Family History FAMILY HISTORY Problem Relation Age of Onset other (MVA) Mother killed other (mva) Father killed other (hemachromatosis) Sister of breast ca at age 75 No Known Problems Sister COPD Sister other (hemachromatosis) Brother does not have any liver problems other (Bone Cancer) Brother No Known Problems Brother No Known Problems Maternal Grandmother No Known Problems Maternal Grandfather No Known Problems Paternal Grandmother No Known Problems Paternal Grandfather No Ocular Disease No Family History nothing known of Anesthesia Problems No Family History Patient Allergies ALLERGIES Allergen Reactions Seasonal Allergies Cough Sneezing and watering eyes Current Medications Current Outpatient Medications on File Prior to Visit Medication Sig sirolimus (RAPAMUNE) 0.5 mg tablet Take by mouth. atorvastatin (LIPITOR) 40 mg tablet Take 1 tablet by mouth daily at bedtime. carvedilol (COREG) 25 mg tablet Take 1 tablet by mouth twice daily. sodium bicarbonate 650 mg tablet Take 1 tablet by mouth three times daily. furosemide (LASIX) 20 mg tablet Take 1 tablet by mouth once daily. dilTIAZem CD (CARDIZEM CD, CARTIA XT) 240 mg 24 hr capsule Take 1 capsule by mouth once daily. acetaminophen (TYLENOL) 500 mg tablet Take 2 tablets by mouth every 6 hours as needed for pain. magnesium/vitamin E/pyridoxine (VITAMIN B6-VITAMIN E-MAGNESIUM ORAL) Take 1 tablet by mouth once daily. gabapentin (NEURONTIN) 100 mg capsule Take 100 mg by mouth once daily. azelastine (ASTELIN) 0.1% nasal spray Use 2 Sprays in each nostril twice daily. (Patient taking differently: Use 2 Sprays in each nostril twice daily as needed.) pyridoxine, vitamin B6, (VITAMIN B6) 100 mg tablet Take 1 tablet by mouth once daily. aspirin 81 mg chewable tablet Take 1 tablet by mouth once daily. Blood Pressure Monitor 1 Each twice daily. (Patient taking differently: 1 Each twice daily as needed.) Cholecalciferol, Vitamin D3, 5,000 unit tab Take 1 tablet by mouth once daily. tacrolimus IR (PROGRAF) 0.5 mg capsule Take 1 capsule by mouth twice daily. (Patient not taking: Reported on 06/25/2022) No current facility-administered medications on file prior to visit. Social History Social History Tobacco Use Smoking status: Never Smokeless tobacco: Never Vaping Use Vaping Use: Never used Substance Use Topics Alcohol use: No Alcohol/week: 0.0 standard drinks Comment: last drink was in July 2012 Drug use: No Review of Symptoms REVIEW OF SYSTEMS Denies chest pain, shortness of breath EXAM: BP 122/70 (BP Site: Left Arm, BP Position: Sitting, BP Cuff Size: Regular Adult) Pulse 60 Temp 36.5 C (97.7 F) Resp 16 Wt 86.6 kg (191 lb) BMI 29.69 kg/m General Appearance: Well appearing, alert, in no acute distress, well-hydrated, well nourished.. Lungs: Lungs clear to auscultation. No wheezing, rhonchi, rales.. Heart: RRR without murmur, gallop, or rubs. No ectopy. Health Maintenance List DILATED RETINAL EXAM due on 08/28/2018 COVID-19 VACCINE(4 - Booster for Pfizer series) due on 07/06/2021 HBA1C due on 05/23/2022 SHINGRIX VACCINE(1 of 2) due on 06/06/2023 BP CONTROLLED (<130/80) due on 11/16/2022 LDL CHOLESTEROL due on 01/01/2023 DTAP,TDAP,TD(2 - Td or Tdap) due on 02/01/2023 SERUM CREATININE due on 05/21/2023 HEMOGLOBIN/HEMATOCRIT due on 05/21/2023 DIABETIC FOOT EXAM due on 06/06/2023 ANNUAL PCP TEAM CHRONIC DISEASE VISIT due on 06/06/2023 HEPATITIS B Completed INFLUENZA Completed ADVANCE DIRECTIVE DISCUSSION Completed DEPRESSION ASSESSMENT Completed HEPATITIS C SCREENING Completed PNEUMOCOCCAL: 65+ Completed HPV VACCINE Aged Out Data reviewed ASSESSMENT/PLAN: 1. Essential hypertension - ICD9: 401.9, ICD10: I10 (primary diagnosis) - good control - Continue current medication(s) - Recommended regular aerobic exercise. - Recommend home blood pressure monitoring, to bring results in on next visit - home bp was higher than office. Advised to consider getting new machine. - Goal of BP <130/80 - BLOOD PRESSURE MONITOR KIT 2. Encounter for immunization - ICD9: V03.89, ICD10: Z23 - [employer] COVID-19 BIVALENT BOOSTER VACCINE, AGE 12+ YR 3. Mixed hyperlipidemia - ICD9: 272.2, ICD10: E78.2 - to be determined upon return of lab results - Encouraged following a low carbohydrate, healthy oil intake diet. - Continue current therapy. 4. Type 2 diabetes mellitus with stage 3b chronic kidney disease, without long- term current use of insulin (HCC) - ICD9: 250.40, 585.3, ICD10: E11.22, N18.32 Await labs. Claudia Roberts PA-C documented in this encounterMercy Health [facility]11-02-2022 Miscellaneous Notes* Telephone Encounter - Antoine Estrada RN - 06/20/2022 10:20 AM EDT Received text from daughter stating patient needs [employer] PAP forms completed. Requested she fax forms to our office for completion. Received partial PAP form faxed to office with no physician Rx form included. Reached out to Amberly for remainder of the form. [employer] has new online PAP forms which were competed and daughter notified. CLIFFORD Page, RN, [facility] Liver Binder Operator documented in this encounterMercy Health Fairfield Hospital10-19-2022 Instructions* Patient Instructions* Sanju Banerjee MD - 06/06/2022 2:31 PM EDT Please bring in copies of living will and durable power of transactional attorney for health care. documented in this encounterMercy Health Fairfield Hospital10-19-2022 History of Present illness Narrative* Sanju Banerjee MD - 06/06/2022 1:03 PM EDT Images from the original note were not included. Medicare Yearly Visit Medical B eligibilty date not able to find Date of last exam 05/18/2021 PAST MEDICAL HISTORY PAST MEDICAL HISTORY Diagnosis Date Abdominal hernia without obstruction and without gangrene 06/19/2016 Alcohol abuse Amblyopia of left eye Anemia of renal disease 11/25/2019 Arthritis Ascites 01/13/2013 Patient denies known history of SBP. Denies current abdominal tenderness, and no large volume ascites with need for paracentesis 02/06/2013. Plan: - ? Diuretics - will D/W nephrology Balance problem 06/19/2016 Bilateral leg edema 01/22/2020 BRVO (branch retinal vein occlusion) OS Cataract of both eyes Chronic lumbar pain 06/16/2020 Chronic pain of both ankles 12/13/2017 Cirrhosis of liver (HCC) CKD (chronic kidney disease) stage 3, GFR 30-59 ml/min ([facility]) 06/19/[address] Vipul Perez [facility] Controlled type 2 diabetes mellitus with stage 4 chronic kidney disease, without long-term current use of insulin ([facility]) 10/23/2016 CRVO (central retinal vein occlusion) OD Duodenal ulcer 02/06/2013 Duodenal ulcers seen on EGD 01/31/13. Plan: Continue pantoprazole 40mg qday. Elevated prostate specific antigen (PSA) 10/19/2016 Normal 10/2017 with free PSA at 44% Essential hypertension 05/18/2014 11/08/2014: Home BP Cuff Validated. Home BP: 167/94 pulse 79. Office BP: 157/91 pulse 76. Gastroesophageal reflux disease without esophagitis 08/24/2015 GIB (gastrointestinal bleeding) 01/13/2013 Patient presents with three episodes of BRBPR onset around 2pm 02/06/2013. He endorses a history of BRBPR during an admission at [facility] in December 2012 for which he states no workup or colonoscopy wasperformed. During his last admission at [facility] he endorses having passed old blood , and underwent EGD 01/31/13 showing a small polyp/hypertrophied fold at the cardia, severe portal hypertensive gastropathy in the entire stomach, and multiple superficial duodenal ulcers. EGD EUS performed 02/03/13 showed several portal hypertensive gastropathy, and normal endoscopic ultrasound examination of the previous area of concern (polyp vs. gastric fold). He was started on PPI BID and discharged 02/04/13 at which time hemoglobin was 8.6. In the ED 02/06/13, Hgb is 8.4, Hct 24.4, plt 41. Last colonoscopy was 2 years ago per patient, and he reports normal findings to be repeated in 2014. Etiologies of current episode includes internal hemorrhoids (no external hemorrhoids seen on examination), diverticular bleeding, AVM, varice [place] filter in place 04/06/2019 Hemochromatosis History of cirrhosis of liver Secondary to alcohol abuse and hemochromatosis. Sees Dr[facility] Doss (at [facility]): Secondary to alcohol abuse and hemochromatosis, currently on transplant list. MELD Score: 35 Plan: - continue homemedications: nadolol, norfloxacin, zinc, lactulose, rifaximin, folic acid. - awaiting transplant History of deep venous thrombosis (DVT) of distal vein of right lower extremity 04/06/2019 [facility] History of encephalopathy 02/06/2013 Secondary to cirrhosis. Currently alert, oriented x3, no signs of decompensated encephalopathy. Plan: - continue home regimen of lactulose, rifaximin and zinc History of hemochromatosis 08/24/2015 Has not been an issue since liver transplant. Hyperbilirubinemia 01/13/2013 Hypertensive kidney disease with stage 3b chronic kidney disease (HCC) 05/18/2014 11/08/2014: Home BP Cuff Validated. Home BP: 167/94 pulse 79. Office BP: 157/91 pulse 76. Hypertensive retinopathy mild ICH (intracerebral hemorrhage) (HCC) Imbalance 06/01/2014 Noted at PT eval on 05/31/2014. Incisional hernia 04/07/2014 Liver transplanted (HCC) 04/07/2014 Lupus anticoagulant syndrome (HCC) 10/28/2019 Medicare annual wellness visit, subsequent 05/18/2021 Medicare part B: Not able to find Last done: 05/18/2021 Mixed hyperlipidemia 06/23/2014 Obesity, Class I, BMI 30-34.9 10/27/2019 Osteopenia 11/26/2013 Other proteinuria 10/21/2017 Seeing renal Retinal edema Secondary hyperparathyroidism of renal origin (HCC) 10/19/2019 Thrombocytopenia (HCC) 05/18/2014 Vertigo 05/18/2014 PAST SURGICAL HISTORY PAST SURGICAL HISTORY Procedure Laterality Date APPENDECTOMY HX 02/15/2013 AVASTIN (BEVACIZUMAB) 1.25MG INTRAVITREAL INJECTION OD (RIGHT EYE) Right 01/12/16 last od AVASTIN (BEVACIZUMAB) 1.25MG INTRAVITREAL INJECTION OD (RIGHT EYE) Right 04/04/16 CHOLECYSTECTOMY HX 02/15/2013 COLONOSCOPY 02/08/2013 repeat 10 yrs EYLEA (AFLIBERCEPT) 2MG INTRAVITREAL INJECTION OD (RIGHT EYE) Right 04/07/14 #3 last intravitreal injection, Eylea OD FECAL OCCULT BLOOD TEST 09/13/2016 negative MIDLINE INSERTION/CONSULT 02/13/2013 PAST SURGICAL HISTORY OF Tooth extraction PAST SURGICAL HISTORY OF 02/15/2013 liver transplant PAST SURGICAL HISTORY OF 2003. vein stripping ALLERGIES: Seasonal Allergies Medications reviewed: Yes FAMILY HISTORY FAMILY HISTORY Problem Relation Age of Onset other (hemachromatosis) Brother does not have any liver problems other (hemachromatosis) Sister of breast ca at age 75 No Ocular Disease No Family History nothing known of other (MVA) Mother killed other (mva) Father killed SOCIAL HISTORY: SOCIAL HISTORY Social History Tobacco Use Smoking status: Never Smoker Smokeless tobacco: Never Used Vaping Use Vaping Use: Never used Substance Use Topics Alcohol use: No Alcohol/week: 0.0 standard drinks Comment: last drink was in July 2012 Drug use: No Isaias denies regular aerobic exercise. He watches his diet for sodium, low fat and low cholesterol all of the time. List of current specialists seen: Renal, Liver team End of Live Planning discussed including patients advanced directive wishes: Yes I am willing to follow Isaias's advanced directives. PHQ-2 / Depression screen Depression Screening 06/25/2017 10/20/2018 10/31/2019 06/06/2022 PHQ-2 Score 0 0 0 0 Depression screening tool completed and reviewed. Based on score and interview, patient is not at risk for depression. Screening tool discussed with patient, and I recommended no further interventionat this time. Functional Ability/Safety Screen 1. Was the patient's timed Up and Go test unsteady or longer than 30 seconds? No 2. Does the patient need help with the phone, transportation, shopping,preparing meals, housework, laundry, medications or managing money? No 3. Does your home have rugs in the hallway, lack of grab bars in the bathroom, lack of handrails onthe stairs or have poor lighting? No Hearing Evaluation: normal and hard of hearing PHYSICAL EXAM BP 146/76 (BP Site: Right Arm, BP Position: Sitting, BP Cuff Size: Regular Adult) Pulse (!) 58 Resp 16 Ht 170.8 cm (5' 7.25 ) Wt 86.6 kg (191 lb) BMI 29.69 kg/m Alert and oriented X 3: YES Body mass index is 29.69 kg/m . Visual acuity: seeing optho See below ASSESSMENT/PLAN: 77 year old male The following prevention plan was discussed during the office visit and provided to the patient: See below Sanju Banerjee MD Chief Complaint Patient presents with: Medicare Wellness Exam HPI Isaias Sanon is a 77 year old male who presents here today for Medicare Annual Visit. Patient with hx of DM 2, HTN, Hyperlipidemia, Hx of liver cirrhosis s/p transplant, CKD, thrombocytopenia as well as those reviewed and addressed below and in ROS. Doing well, had his abdominal hernia repaired in the last 4-6 months and doing good. No new issues or concerns. Past medical history, appointments, medications, allergies reviewed. Previous Medical History PAST MEDICAL HISTORY Diagnosis Date Abdominal hernia without obstruction and without gangrene 06/19/2016 Amblyopia of left eye Anemia of renal disease 11/25/2019 Arthritis Ascites 01/13/2013 Patient denies known history of SBP. Denies current abdominal tenderness, and no large volume ascites with need for paracentesis 02/06/2013. Plan: - ? Diuretics - will D/W nephrology Balance problem 06/19/2016 Bilateral leg edema 01/22/2020 BRVO (branch retinal vein occlusion) OS Cataract of both eyes Chronic lumbar pain 06/16/2020 Chronic pain of both ankles 12/13/2017 CKD (chronic kidney disease) stage 3, GFR 30-59 ml/min ([facility]) 06/19/[address] Vipul Perez [facility] CKD (chronic kidney disease) stage 4, GFR 15-29 ml/min ([facility]) 06/19/[address] Vipul Perez [facility] Controlled type 2 diabetes mellitus with stage 4 chronic kidney disease, without long-term current use of insulin ([facility]) 10/23/2016 CRVO (central retinal vein occlusion) OD Dilation of aorta ([facility]) 10/12/2021 ZULUAGA (dyspnea on exertion) 10/12/2021 Duodenal ulcer 02/06/2013 Duodenal ulcers seen on EGD 01/31/13. Plan: Continue pantoprazole 40mg qday. Elevated prostate specific antigen (PSA) 10/19/2016 Normal 10/2017 with free PSA at 44% Essential hypertension 05/18/2014 11/08/2014: Home BP Cuff Validated. Home BP: 167/94 pulse 79. Office BP: 157/91 pulse 76. Gastroesophageal reflux disease without esophagitis 08/24/2015 GIB (gastrointestinal bleeding) 01/13/2013 Patient presents with three episodes of BRBPR onset around 2pm 02/06/2013. He endorses a history of BRBPR during an admission at [facility] in December 2012 for which he states no workup or colonoscopy wasperformed. During his last admission at [facility] he endorses having passed old blood , and underwent EGD 01/31/13 showing a small polyp/hypertrophied fold at the cardia, severe portal hypertensive gastropathy in the entire stomach, and multiple superficial duodenal ulcers. EGD EUS performed 02/03/13 showed several portal hypertensive gastropathy, and normal endoscopic ultrasound examination of the previous area of concern (polyp vs. gastric fold). He was started on PPI BID and discharged 02/04/13 at which time hemoglobin was 8.6. In the ED 02/06/13, Hgb is 8.4, Hct 24.4, plt 41. Last colonoscopy was 2 years ago per patient, and he reports normal findings to be repeated in 2014. Etiologies of current episode includes internal hemorrhoids (no external hemorrhoids seen on examination), diverticular bleeding, AVM, varice Tony filter in place 04/06/2019 History of alcohol abuse Quit 2011 History of cirrhosis of liver Secondary to alcohol abuse and hemochromatosis. Sees Dr. Doss (at [facility]): Secondary to alcohol abuse and hemochromatosis, currently on transplant list. MELD Score: 35 Plan: - continue homemedications: nadolol, norfloxacin, zinc, lactulose, rifaximin, folic acid. - awaiting transplant History of deep venous thrombosis (DVT) of distal vein of right lower extremity 04/06/2019 [facility] History of encephalopathy 02/06/2013 Secondary to cirrhosis. Currently alert, oriented x3, no signs of decompensated encephalopathy. Plan: - continue home regimen of lactulose, rifaximin and zinc History of hemochromatosis 08/24/2015 Has not been an issue since liver transplant. Hyperbilirubinemia 01/13/2013 Hypertensive retinopathy mild ICH (intracerebral hemorrhage) (HCC) Imbalance 06/01/2014 Noted at PT eval on 05/31/2014. Incisional hernia 04/07/2014 Liver transplanted (HCC) 04/07/2014 Lupus anticoagulant syndrome (HCC) 10/28/2019 Medicare annual wellness visit, subsequent 05/18/2021 Medicare part B: Not able to find Last done: 05/18/2021 Mixed hyperlipidemia 06/23/2014 Obesity, Class I, BMI 30-34.9 10/27/2019 Osteopenia 11/26/2013 Other proteinuria 10/21/2017 Seeing renal Retinal edema Secondary hyperparathyroidism of renal origin (HCC) 10/19/2019 Thrombocytopenia (HCC) 05/18/2014 Vertigo 05/18/2014 Previous Surgical History PAST SURGICAL HISTORY Procedure Laterality Date APPENDECTOMY HX 02/15/2013 AVASTIN (BEVACIZUMAB) 1.25MG INTRAVITREAL INJECTION OD (RIGHT EYE) Right 01/12/16 last od AVASTIN (BEVACIZUMAB) 1.25MG INTRAVITREAL INJECTION OD (RIGHT EYE) Right 04/04/16 CHOLECYSTECTOMY HX 02/15/2013 COLONOSCOPY 02/08/2013 repeat 10 yrs EYLEA (AFLIBERCEPT) 2MG INTRAVITREAL INJECTION OD (RIGHT EYE) Right 04/07/14 #3 last intravitreal injection, Eylea OD FECAL OCCULT BLOOD TEST 09/13/2016 negative MIDLINE INSERTION/CONSULT 02/13/2013 PAST SURGICAL HISTORY OF Tooth extraction PAST SURGICAL HISTORY OF 02/15/2013 liver transplant PAST SURGICAL HISTORY OF 2003. vein stripping Family History FAMILY HISTORY Problem Relation Age of Onset other (MVA) Mother killed other (mva) Father killed other (hemachromatosis) Sister of breast ca at age 75 No Known Problems Sister COPD Sister other (hemachromatosis) Brother does not have any liver problems other (Bone Cancer) Brother No Known Problems Brother No Known Problems Maternal Grandmother No Known Problems Maternal Grandfather No Known Problems Paternal Grandmother No Known Problems Paternal Grandfather No Ocular Disease No Family History nothing known of Anesthesia Problems No Family History Patient Allergies ALLERGIES Allergen Reactions Seasonal Allergies Cough Sneezing and watering eyes Current Medications Current Outpatient Medications on File Prior to Visit Medication Sig furosemide (LASIX) 20 mg tablet Take 1 tablet by mouth once daily. atorvastatin (LIPITOR) 40 mg tablet Take 1 tablet by mouth daily at bedtime. carvedilol (COREG) 25 mg tablet Take 1 tablet by mouth twice daily. dilTIAZem CD (CARDIZEM CD, CARTIA XT) 240 mg 24 hr capsule Take 1 capsule by mouth once daily. acetaminophen (TYLENOL) 500 mg tablet Take 2 tablets by mouth every 6 hours as needed for pain. sodium bicarbonate 650 mg tablet Take 1 tablet by mouth three times daily. magnesium/vitamin E/pyridoxine (VITAMIN B6-VITAMIN E-MAGNESIUM ORAL) Take 1 tablet by mouth once daily. gabapentin (NEURONTIN) 100 mg capsule Take 100 mg by mouth once daily. tacrolimus IR (PROGRAF) 0.5 mg capsule Take 1 capsule by mouth twice daily. azelastine (ASTELIN) 0.1% nasal spray Use 2 Sprays in each nostril twice daily. (Patient taking differently: Use 2 Sprays in each nostril twice daily as needed.) pyridoxine, vitamin B6, (VITAMIN B6) 100 mg tablet Take 1 tablet by mouth once daily. aspirin 81 mg chewable tablet Take 1 tablet by mouth once daily. Blood Pressure Monitor 1 Each twice daily. (Patient taking differently: 1 Each twice daily as needed.) Cholecalciferol, Vitamin D3, 5,000 unit tab Take 1 tablet by mouth once daily. No current facility-administered medications on file prior to visit. Social History Social History Tobacco Use Smoking status: Never Smokeless tobacco: Never Vaping Use Vaping Use: Never used Substance Use Topics Alcohol use: No Alcohol/week: 0.0 standard drinks Comment: last drink was in July 2012 Drug use: No Review of Symptoms REVIEW OF SYSTEMS GENERAL: No weight loss, malaise or fevers HEENT: Negative for frequent or significant headaches, No changes in hearing or vision, no nose bleeds or other nasal problems NECK: Negative for lumps, goiter, pain and significant neck swelling RESPIRATORY: Negative for cough, hemoptysis, wheezing, COPD, dyspnea or shortness of breath CARDIOVASCULAR: Negative for chest pain, leg swelling, hypertension, CHF or palpitations GI: No nausea, vomiting, or diarrhea, No heartburn or reflux symptoms, and no blood : No history of dysuria, blood. MUSCULOSKELETAL: Negative for new or changes in his typical joint pain or swelling, back pain or muscle pain SKIN: Negative for lesions, rash, and itching PSYCH: Negative for sleep disturbance, mood disorder and recent psychosocial stressors HEMATOLOGY/LYMPHOLOGY: Negative for prolonged bleeding, bruising easily or swollen nodes ENDOCRINE: Negative for cold or heat intolerance, symptoms of low BS's NEURO: No history of headaches, syncope, paralysis, seizures or tremors EXAM: BP 146/76 (BP Site: Right Arm, BP Position: Sitting, BP Cuff Size: Regular Adult) Pulse (!) 58 Resp 16 Ht 170.8 cm (5' 7.25 ) Wt 86.6 kg (191 lb) BMI 29.69 kg/m BP 146/76 (BP Site: Right Arm, BP Position: Sitting, BP Cuff Size: Regular Adult) Pulse (!) 58 Resp 16 Ht 170.8 cm (5' 7.25 ) Wt 86.6 kg (191 lb) BMI 29.69 kg/m Last 5 Encounter Wt Readings: Date: Wt: 06/06/2022 86.6 kg (191 lb) 01/12/2022 85.7 kg (189 lb) 12/25/2021 93.5 kg (206 lb 3.2 oz) 11/29/2021 90.7 kg (200 lb) 11/27/2021 90.7 kg (200 lb) General Appearance: Well appearing, alert, in no acute distress, well-hydrated, well nourished. andOverweight. Skin: Skin color, texture, turgor normal, no suspicious rashes or lesions. Head: Normocephalic, no masses, lesions, tenderness or abnormalities. Eyes: Anicteric sclera. Pupils are equally round and reactive to light. Extraocular movements are intact. . Ears: External ears, TM's normal, canals clear. Neck: Supple, no adenopathy; thyroid symmetric, normal size, no bruits. Lungs: Lungs clear to auscultation. No wheezing, rhonchi, rales.. Heart: RRR without murmur, gallop, or rubs. No ectopy. Abdomen: Normal abdominal exam, Abdomen soft, non-tender. Bowel sounds normal. No masses, organomegaly. Extremities: No deformities, skin discoloration, clubbing or cyanosis. Good capillary refill. Mild edema right ankle and foot. . Musculoskeletal: Muscular strength intact, No joint swelling, deformity, or tenderness. Peripheral Pulses: Normal. Neurologic: Gait normal. Reflexes normal and symmetric. Sensation grossly intact.. Genitalia: Normal, Penis normal. No urethral discharge. Scrotum normal to palpation. No hernia.. Rectal: Normal exam. Prostate enlarged but smooth firm capsule. Diabetic Foot Exam: Feet: Shoes and socks removed, no deformities, ulcers, calluses, normal distal pulses, sensitive to10 gm microfilament, and vibratory exam within normal limits Skin: warm, dry, no callouses or ulcer, and normal hair growth Vascular Pulses: Normal SEMMES-MIKE MONOFILAMENT TESTING Left Foot Right Foot Dorsal Surface Intact Dorsal Surface Intact Plantar Surface Intact Plantar Surface Intact Health Maintenance List SHINGRIX VACCINE(1 of 2) Never done DILATED RETINAL EXAM due on 08/28/2018 COVID-19 VACCINE(4 - Booster for Pfizer series) due on 07/06/2021 ADVANCE DIRECTIVE DISCUSSION Never done DEPRESSION ASSESSMENT Never done HBA1C due on 05/23/2022 DIABETIC FOOT EXAM due on 05/18/2022 ANNUAL PCP TEAM CHRONIC DISEASE VISIT due on 12/25/2022 LDL CHOLESTEROL due on 01/01/2023 BP CONTROLLED (<130/80) due on 01/23/2023 DTAP,TDAP,TD(2 - Td or Tdap) due on 02/01/2023 SERUM CREATININE due on 05/21/2023 HEMOGLOBIN/HEMATOCRIT due on 05/21/2023 HEPATITIS B Completed INFLUENZA Completed HEPATITIS C SCREENING Completed PNEUMOCOCCAL: 65+ Completed HPV VACCINE Aged Out Data reviewed Component Latest Ref Rng & Units 11/21/2021 05/21/2022 WBC 3.70 - 11.00 k/uL 5.94 5.04 RBC 4.20 - 6.00 m/uL 3.36 (L) 3.54 (L) Hemoglobin 13.0 - 17.0 g/dL 9.6 (L) 10.3 (L) Hematocrit 39.0 - 51.0 % 30.9 (L) 31.9 (L) MCV 80.0 - 100.0 fL 92.0 90.1 MCH 26.0 - 34.0 pg 28.6 29.1 MCHC 30.5 - 36.0 g/dL 31.1 32.3 RDW-CV 11.5 - 15.0 % 16.6 (H) 14.3 Platelet Count 150 - 400 k/uL 126 (L) 145 (L) MPV 9.0 - 12.7 fL 9.9 9.5 Neut% % 68.6 66.9 Abs Neut (ANC) 1.45 - 7.50 k/uL 4.08 3.37 Lymph% % 16.7 19.4 Abs Lymph 1.00 - 4.00 k/uL 0.99 (L) 0.98 (L) [place]% % 10.1 8.5 Abs [place] <0.87 k/uL 0.60 0.43 Eosin% % 3.2 3.6 Abs Eosin <0.46 k/uL 0.19 0.18 Baso% % 0.7 0.8 Abs Baso <0.11 k/uL 0.04 0.04 Immature Gran % % 0.7 0.8 IMMATURE GRANS (ABS) <0.10 k/uL 0.04 0.04 NRBC /100 WBC 0.0 0.0 Absolute nRBC <0.01 k/uL <0.01 <0.01 DTYPE Auto Auto Protein, Total 6.3 - 8.0 g/dL 6.6 6.5 Albumin 3.9 - 4.9 g/dL 3.8 (L) 4.0 Calcium 8.5 - 10.2 mg/dL 9.6 10.0 Bilirubin, Total 0.2 - 1.3 mg/dL 0.4 0.5 Alkaline Phosphatase 38 - 113 U/L 92 105 AST 14 - 40 U/L 19 18 ALT 10 - 54 U/L 27 15 Glucose 74 - 99 mg/dL 125 (H) 129 (H) BUN 9 - 24 mg/dL 59 (H) 35 (H) Creatinine 0.73 - 1.22 mg/dL 2.87 (H) 3.40 (H) Sodium 136 - 144 mmol/L 139 139 Potassium 3.7 - 5.1 mmol/L 5.3 (H) 5.1 Chloride 97 - 105 mmol/L 106 (H) 105 CO2 22 - 30 mmol/L 23 25 Anion Gap 9 - 18 mmol/L 10 9 eGFR >=60 mL/min/1.73m 22 (L) 18 (L) Hemoglobin A1C 4.3 - 5.6 % 6.2 (H) Estimated Average Glucose mg/dL 131 Magnesium 1.7 - 2.3 mg/dL 2.0 2.1 A/P ASSESSMENT/PLAN: 1. Medicare annual wellness visit, subsequent - ICD9: V70.0, ICD10: Z00.00 (primary diagnosis) - Counseled on healthy diet and regular exercise - Discussed need for and benefit of weight loss. BMI 29.69 kg/(m^2) - Follow up for annual exam in one year 2. Type 2 diabetes mellitus with stage 3b chronic kidney disease, without long- term current use of insulin (HCC) - ICD9: 250.40, 585.3, ICD10: E11.22, N18.32 Will await labs to determine if any changes needed. - Continue current medications - Encouraged regular aerobic exercise and weight loss - BP goal of <130/80 - LDL goal of <100 Check - HGB A1C - LIPID PANEL, NONFASTING - ALBUMIN/CREAT RATIO RND UR - URINALYSIS, WITH MICROSCOPIC 3. Essential hypertension - ICD9: 401.9, ICD10: I10 - suboptimal control - Continue current medication(s) - Recommended regular aerobic exercise. - Recommend home blood pressure monitoring, to bring results in on next visit - Recheck in 3 weeks, sooner should new symptoms or problems arise. - Goal of BP <130/80 - LIPID PANEL, NONFASTING - URINALYSIS, WITH MICROSCOPIC 4. Mixed hyperlipidemia - ICD9: 272.2, ICD10: E78.2 - to be determined upon return of lab results - Encouraged following a low fat, low cholesterol diet. - Discussed the benefits of regular aerobic exercise and weight loss. - Encouraged following a low carbohydrate, healthy oil intake diet. - Continue current therapy. - LIPID PANEL, NONFASTING - URINALYSIS, WITH MICROSCOPIC 5. Hypertensive kidney disease with stage 4 chronic kidney disease (HCC) - ICD9: 403.90, 585.4, ICD10: I12.9, N18.4 - suboptimal control - Continue current medication(s) - Recommended regular aerobic exercise. - Recommend home blood pressure monitoring, to bring results in on next visit - Recheck in 3 weeks, sooner should new symptoms or problems arise. - Goal of BP <130/80 6. Secondary hyperparathyroidism of renal origin (HCC) - ICD9: 588.81, ICD10: N25.81 - seeing renal 7. Proteinuria, unspecified type - ICD9: 791.0, ICD10: R80.9 - seeing renal 8. Gastroesophageal reflux disease without esophagitis - ICD9: 530.81, ICD10: K21.9 - diet controled 9. 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 Thoracic aorta atherosclerosis (HCC) - ICD9: 440.0, ICD10: I70.0 - CONSULT TO CARDIOLOGY 11. Hypertensive retinopathy, unspecified laterality - ICD9: 362.11, ICD10: H35.039 - cont current Tx. 12. History of stroke - ICD9: V12.54, ICD10: Z86.73 - stable with tx. 13. CKD (chronic kidney disease) stage 4, GFR 15-29 ml/min (HCC) - ICD9: 585.4, ICD10: N18.4 - seeing renal 14. Anemia of renal disease - ICD9: 285.21, ICD10: N18.9, D63.1 Seeing renal 15. History of deep venous thrombosis (DVT) of distal vein of right lower extremity - ICD9: V12.51,ICD10: Z86.718 - do to CVA no anticoagulation. 16. Lupus anticoagulant syndrome (HCC) - ICD9: 289.81, ICD10: D68.62 - as per #15 17. Thrombocytopenia (HCC) - ICD9: 287.5, ICD10: D69.6 - stable 18. Liver transplant status (HCC) - ICD9: V42.7, ICD10: Z94.4 - management per liver team. 19. Obesity, Class I, BMI 30-34.9 - ICD9: 278.00, ICD10: E66.9 Weight increasing - Behavioral intervention 20. Arthritis - ICD9: 716.90, ICD10: M19.90 - stable 21. Advance directive discussed with patient - ICD9: V65.49, ICD10: Z71.89 - patient to bring in copies 22. Living will in place - ICD9: V49.89, ICD10: Z78.9 - as per #21 23. Prostate disorder - ICD9: 602.9, ICD10: N42.9 Check - PSA/PROSTSPECAG DIAG Requested Prescriptions Signed Prescriptions Disp Refills atorvastatin (LIPITOR) 40 mg tablet 30 tablet 5 Sig: Take 1 tablet by mouth daily at bedtime. carvedilol (COREG) 25 mg tablet 60 tablet 5 Sig: Take 1 tablet by mouth twice daily. sodium bicarbonate 650 mg tablet 90 tablet 0 Sig: Take 1 tablet by mouth three times daily. F/u 3 weeks HTN med check F/u 6 months routine I spent a total of 40 minutes on the date of the service which included preparing to see the patient, [id number] patient care, completing clinical documentation, performing a medically appropriate examination, counseling and educating the patient/family/caregiver and ordering medications, tests, or procedures. Sanju Banerjee MD documented in [facility]Mer[facility]22 Miscellaneous Notes* Telephone Encounter - Sanju Banerjee MD - 05/31/2022 2:08 PM EDT The following approved medication requests have been transmitted electronically. Requested Prescriptions Signed Prescriptions Disp Refills furosemide (LASIX) 20 mg tablet 90 tablet 1 Sig: Take 1 tablet by mouth once daily. Authorizing Provider: SANJU BANERJEE MD * Telephone Encounter - [facility] - 05/31/2022 10:05 AM EDT Patient has been identified by name and date of : Yes Requested Prescriptions Pending Prescriptions Disp Refills furosemide (LASIX) 20 mg tablet 90 tablet 3 Sig: Take 1 tablet by mouth once daily. RX INSTRUCTIONS: Patient aware RX will be sent to pharmacy. No need to notify patient. [facility] documented in this encounterMer[facility]08-29-2022 Miscellaneous Notes* Telephone Encounter - Sanju Banerjee MD - 04/16/2022 4:04 PM EDT The following approved medication requests have been transmitted electronically. Requested Prescriptions Signed Prescriptions Disp Refills atorvastatin (LIPITOR) 40 mg tablet 30 tablet 5 Sig: Take 1 tablet by mouth daily at bedtime. Authorizing Provider: SANJU BANERJEE carvedilol (COREG) 25 mg tablet 60 tablet 5 Sig: Take 1 tablet by mouth twice daily. Authorizing Provider: SANJU BANERJEE MD * Telephone Encounter - Noé Escobedo LPN - 04/16/2022 2:52 PM EDT Last refill Lipitor 03/31/21 Qty: 30 with 11 refills Last refill Coreg 11/23/21 Qty: 60 with 5 refills. Pt soul be picking up last refill in Apr. JUSTINE with Dr Flores 12/25/21 saw pcp 11/16/21 NOV 06/06/22 Noé Escobedo LPN * Telephone Encounter - Heather Perry - 04/16/2022 2:10 PM EDT Patient has been identified by name and date of : Yes Requested Prescriptions Pending Prescriptions Disp Refills atorvastatin (LIPITOR) 40 mg tablet 30 tablet 11 Sig: Take 1 tablet by mouth daily at bedtime. carvedilol (COREG) 25 mg tablet 60 tablet 5 Sig: Take 1 tablet by mouth twice daily. RX INSTRUCTIONS: Patient aware RX will be sent to pharmacy. No need to notify patient. Heather Perry documented in this encounterMer[facility]07-28-2022 Miscellaneous Notes* Telephone Encounter - Terra Dang MA - 03/15/2022 8:17 AM EDT Patient has been identified by name and date of : Yes Pending Prescriptions Disp Refills DILTIAZEM SR 240 MG 24 HR CAP 30 capsule 11 Sig: Take 1 capsule by mouth once daily. JAMES: No RX INSTRUCTIONS: Patient aware RX will be sent to pharmacy. No need to notify patient. Terra Dang MA JUSTINE: 10/2021 NOV: 05/2022 Last refill; 03/2021 * Telephone Encounter - Carmen Milan Pss - 03/15/2022 8:09 AM EDT Patient has been identified by name and date of : Yes Pending Prescriptions Disp Refills DILTIAZEM SR 240 MG 24 HR CAP 30 capsule 11 Sig: Take 1 capsule by mouth once daily. JAMES: No RX INSTRUCTIONS: Patient aware RX will be sent to pharmacy. No need to notify patient. Carmen Milan Pss documented in this encounterMer[facility]07-12-2022 Miscellaneous Notes* Telephone Encounter - Sanju Banerjee MD - 02/27/2022 12:27 PM EDT The following approved medication requests have been transmitted electronically. Signed Prescriptions Disp Refills furosemide (LASIX) 20 mg tablet 30 tablet 2 Sig: Take 1 tablet by mouth once daily. JAMES: No Authorizing Provider: SANJU BANERJEE MD * Telephone Encounter - Caroline Osman - 02/27/2022 8:24 AM EDT Patient has been identified by name and date of : Yes Pending Prescriptions Disp Refills FUROSEMIDE 20 MG TABLET 30 tablet 2 Sig: Take 1 tablet by mouth once daily. JAMES: No RX INSTRUCTIONS: Patient aware RX will be sent to pharmacy. No need to notify patient. Caroline Osman documented in this encounterMer[facility]06-07-2022 Miscellaneous Notes* Telephone Encounter - Antoine Estrada RN - 01/23/2022 12:26 PM EDT Spoke with Amberly, Dr. Way felt lump was a seroma and not a hernia recurrence. She will start Rapamune tomorrow and overlap with FK x3 days then stop FK. He will have labs Saturday, 01/29 and again in 2 weeks on 02/12 then return to monthly labs in February if stable. Antoine Estrada RN, BSN, [facility] Liver Binder Operator * Telephone Encounter - Antoine Estrada RN - 01/18/2022 2:04 PM EDT Spoke with Amberly who advised patient has bulge just below the incision and is scheduled to follow upwith Dr. Way 01/23. Per Amberly he has been sitting in his chair with no heavy lifting or strenuous activity. Instructed to continue tacrolimus until he is seen Dr. Way next week and we are sure there is no recurrence. If OK may change meds, repeat labs 01/29, 02/12 then may go back to monthly in February if LFTs and Scr stable. Amberly verbalized understanding, no further needs at this time. Antoine Estrada RN, BSN, [facility] Liver Binder Operator . * Telephone Encounter - Antoine Estrada RN - 01/18/2022 1:42 PM EDT Hernia repair 12/12/[address] incision is well healed with no evidence of hernia recurrence and patient may resume mTOR. Reviewed above with Vito Beauchamp CNP who ordered to stop tacrolimus and resume rapamune at previus dose (rapa 0.5 mg daily). Attempted to call AAMIR Gaming of above. I also sent her a text message to resume rapamune. Instructed to continue labs every other week through the end of January and may return to monthly labs in February. Requested Amberly either jorge or text me back to confirm Is changes. Antoine Estrada RN, BSN, [facility] Liver Binder Operator documented in this encounterMercy Health [facility]06-07-2022 History of Present illness Narrative* José Antonio Way MD - 01/23/2022 9:09 AM EDT Mr Sanon is s/p AWR. He presents today because he hd a lump under his incision 5 days ago but it has reduced in size. He denies drainage or fevers. His non- tender on exam. I can palpate what feels like a seroma without evidence of infection. Given his immunosuppression we do need to keep an eye onthis. I reviewed signs and symptoms of an abscess with his family. He will call if anything changes. documented in this encounterMercy Health Fairfield Hospital06-07-2022 Nurse Note* Anabel Grady LPN - 01/23/2022 9:07 AM EDT What is the reason for your visit today? post op incisional hernia Who is your referring physician? self Are you having poor oral intake? NO Have you had unintentional weight loss of 15 lbs/7 Kg in the last 3-6 months? NO Bowels: regular Wound: clean & dry Temperature: No Drains: No patient declined barley steeper Anabel Grady LPN documented in this encounterMercy Health Fairfield [facility]05-27-2022 History of Present illness Narrative* José Antonio Way MD - 01/12/2022 1:04 PM EDT Isaias Sanon is here for a post-op visit after open ventral hernia repair with mesh. he is doing wel. his incision has healed well and there is no evidence of hernia recurrence. He can resume his previous immunosuppression therapy. I will see him back in 1 year for his next post-operative visit. documented in this encounterMercy Health Fairfield Hospital05-27-2022 Nurse Note* Josue Greenfield - 01/12/2022 10:45 AM EDT What is the reason for your visit today? Post op Who is your referring physician? Dr. Way Are you having poor oral intake? NO Have you had unintentional weight loss of 15 lbs/7 Kg in the last 3-6 months? NO Bowels: regular Wound: clean & dry Temperature: No Drains: No documented in this encounterMercy Health Fairfield Hospital05-24-2022 Miscellaneous Notes* Telephone Encounter - Sanju Banerjee MD - 01/09/2022 1:24 PM EDT Info noted. * Telephone Encounter - Francine Merida RN - 01/09/2022 1:09 PM EDT [facility]- calling to report to pcp, patient went to get haircut today, had a spell where he felt out of it and couldn't move. Squad was called and reported BP / P were good, but BS was a little low (didn't tell them the numbers). BS was not low enough to give injection or oral. After 10 min patient felt fine. Chelsea checked VS's: 124/70 (58) regular rhythm. documented in this encounterMercy Health [facility]field [facility]05-09-2022 History of Present illness Narrative* Lavell Flores MD - 12/25/2021 9:57 AM EDT Chief Complaint Patient presents with: ED Follow-up: [facility] 12/12/21-abdominal hernia HPI Isaias Sanon is a 76 year old male with PMH: CKD stage IV, cirrhosis s/p liver transplant, HTN, GIbleed, DM type II, Lupus anticoagulant syndrome, thrombocytopenia who presents here today for Hospital Discharge Follow up. Accompanied today by Brittani. Patient admitted to [facility] from 12/12 to 12/19 for ventral hernia repair with mesh by Dr. Way. Hospital course below in bold: HOSPITAL COURSE: Isaias Sanon is a 76 yo M with a complex PMHx including: EtOH abuse, s/p liver transplant in 2012, CAD, CKD IV, thrombocytopenia, dilation of aorta, anemia in CKD, T2DM. On 12/12/2021 he underwent a ventral hernia repair with mesh by Dr. Way. See separate operative report for full details. His hospital course is detailed below: 12/12- Day of surgery, surgery went well. Received 1 unit pRBC in PACU and responded approrpriately. 12/13- POD1. Hepatology consulted for IS management. Hyperkalemic-- received K+ cocktail. Creatininerising (2.8 --> 3.1). Oliguric. Nephrology consulted. Cards consulted for elevated troponins. 12/14- Kidney function worsening (Cr 4.3). Ernandez remains. 1 unit pRBC ordered for HgB drop (7.2). Ppx heparin held. Also with post op ileus --> NGT ordered. RLE with swelling. DVT scan negative. 12/15- Passing flatus. NGT removed. Advanced to CLD. UOP increasing. Cr 4.9. Nephrology continues tofollow. Re-started on ppx Heparin. Holding Tacrolimus per hepatology. 12/16 - HgB 6.8 - 1 unit PRBC ordered. Appropriately responded up to 8.8. 12/17 - ASA re-started. Having bowel movement and passing gas. Diet advanced to GIS. 12/18 - Ernandez removed and patient successfully voided. Awaiting final recommendations from hepatologyregarding IS plan on discharge. 12/19 - Resumed home Lasix (20mg PO daily). All SUZY drains have been removed. Tolerating GIS, having ROBF, voiding freely. Incision is healing well and no concerns for infection. Cleared for discharge from hepatology and nephrology standpoint. D/C instructions reviewed with patient at bedside. Since discharge, patient that his pain has completely resolved. Has been able to tolerate soft GI diet. Incision site is healing well without erythema, drainage, wound dehiscence. Wearing an abdominal wrap on a daily basis. Told he would need it for about 2 months. Has been following 10 lb lifting restriction. OT and [facility] to come out to the home in 2 days for initial evaluation. Able to perform ADLs with use of his walker. Feels steady with the walker and has not had any falls. Follow up appointment with general surgery on 01/12. Patient to have Lab draw every Saturday/ x2 weeks, starting 12/21/21. Obtained follow up labs today which are pending. Advised to follow up with nephrology as well. States they cancelled his appointment in January and is now scheduled in April. He is on their cancellation list and they will be reviewing his labs. Past medical history, appointments, medications, allergies reviewed. Previous Medical History PAST MEDICAL HISTORY Diagnosis Date Abdominal hernia without obstruction and without gangrene 06/19/2016 Amblyopia of left eye Anemia of renal disease 11/25/2019 Arthritis Ascites 01/13/2013 Patient denies known history of SBP. Denies current abdominal tenderness, and no large volume ascites with need for paracentesis 02/06/2013. Plan: - ? Diuretics - will D/W nephrology Balance problem 06/19/2016 Bilateral leg edema 01/22/2020 BRVO (branch retinal vein occlusion) OS Cataract of both eyes Chronic lumbar pain 06/16/2020 Chronic pain of both ankles 12/13/2017 CKD (chronic kidney disease) stage 3, GFR 30-59 ml/min ([facility]) 06/19/[address] Vipul Perez [facility] CKD (chronic kidney disease) stage 4, GFR 15-29 ml/min ([facility]) 06/19/[address] Vipul Perez [facility] Controlled type 2 diabetes mellitus with stage 4 chronic kidney disease, without long-term current use of insulin ([facility]) 10/23/2016 CRVO (central retinal vein occlusion) OD Dilation of aorta ([facility]) 10/12/2021 ZULUAGA (dyspnea on exertion) 10/12/2021 Duodenal ulcer 02/06/2013 Duodenal ulcers seen on EGD 01/31/13. Plan: Continue pantoprazole 40mg qday. Elevated prostate specific antigen (PSA) 10/19/2016 Normal 10/2017 with free PSA at 44% Essential hypertension 05/18/2014 11/08/2014: Home BP Cuff Validated. Home BP: 167/94 pulse 79. Office BP: 157/91 pulse 76. Gastroesophageal reflux disease without esophagitis 08/24/2015 GIB (gastrointestinal bleeding) 01/13/2013 Patient presents with three episodes of BRBPR onset around 2pm 02/06/2013. He endorses a history of BRBPR during an admission at [facility] in December 2012 for which he states no workup or colonoscopy wasperformed. During his last admission at [facility] he endorses having passed old blood , and underwent EGD 01/31/13 showing a small polyp/hypertrophied fold at the cardia, severe portal hypertensive gastropathy in the entire stomach, and multiple superficial duodenal ulcers. EGD EUS performed 02/03/13 showed several portal hypertensive gastropathy, and normal endoscopic ultrasound examination of the previous area of concern (polyp vs. gastric fold). He was started on PPI BID and discharged 02/04/13 at which time hemoglobin was 8.6. In the ED 02/06/13, Hgb is 8.4, Hct 24.4, plt 41. Last colonoscopy was 2 years ago per patient, and he reports normal findings to be repeated in 2014. Etiologies of current episode includes internal hemorrhoids (no external hemorrhoids seen on examination), diverticular bleeding, AVM, varice Tony filter in place 04/06/2019 History of alcohol abuse Quit 2011 History of cirrhosis of liver Secondary to alcohol abuse and hemochromatosis. Sees Dr. Doss (at [facility]): Secondary to alcohol abuse and hemochromatosis, currently on transplant list. MELD Score: 35 Plan: - continue homemedications: nadolol, norfloxacin, zinc, lactulose, rifaximin, folic acid. 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 Currently alert, oriented x3, no signs of decompensated encephalopathy. Plan: - continue home regimen of lactulose, rifaximin and zinc History of hemochromatosis 08/24/2015 Has not been an issue since liver transplant. Hyperbilirubinemia 01/13/2013 Hypertensive retinopathy mild ICH (intracerebral hemorrhage) (HCC) Imbalance 06/01/2014 Noted at PT eval on 05/31/2014. Incisional hernia 04/07/2014 Liver transplanted (HCC) 04/07/2014 Lupus anticoagulant syndrome (HCC) 10/28/2019 Medicare annual wellness visit, subsequent 05/18/2021 Medicare part B: Not able to find Last done: 05/18/2021 Mixed hyperlipidemia 06/23/2014 Obesity, Class I, BMI 30-34.9 10/27/2019 Osteopenia 11/26/2013 Other proteinuria 10/21/2017 Seeing renal Retinal edema Secondary hyperparathyroidism of renal origin (HCC) 10/19/2019 Thrombocytopenia (HCC) 05/18/2014 Vertigo 05/18/2014 Previous Surgical History PAST SURGICAL HISTORY Procedure Laterality Date APPENDECTOMY HX 02/15/2013 AVASTIN (BEVACIZUMAB) 1.25MG INTRAVITREAL INJECTION OD (RIGHT EYE) Right 01/12/16 last od AVASTIN (BEVACIZUMAB) 1.25MG INTRAVITREAL INJECTION OD (RIGHT EYE) Right 04/04/16 CHOLECYSTECTOMY HX 02/15/2013 COLONOSCOPY 02/08/2013 repeat 10 yrs EYLEA (AFLIBERCEPT) 2MG INTRAVITREAL INJECTION OD (RIGHT EYE) Right 04/07/14 #3 last intravitreal injection, Eylea OD FECAL OCCULT BLOOD TEST 09/13/2016 negative MIDLINE INSERTION/CONSULT 02/13/2013 PAST SURGICAL HISTORY OF Tooth extraction PAST SURGICAL HISTORY OF 02/15/2013 liver transplant PAST SURGICAL HISTORY OF 2003. vein stripping Family History FAMILY HISTORY Problem Relation Age of Onset other (MVA) Mother killed other (mva) Father killed other (hemachromatosis) Sister of breast ca at age 75 No Known Problems Sister COPD Sister other (hemachromatosis) Brother does not have any liver problems other (Bone Cancer) Brother No Known Problems Brother No Known Problems Maternal Grandmother No Known Problems Maternal Grandfather No Known Problems Paternal Grandmother No Known Problems Paternal Grandfather No Ocular Disease No Family History nothing known of Anesthesia Problems No Family History Patient Allergies ALLERGIES Allergen Reactions Seasonal Allergies Cough Sneezing and watering eyes Current Medications Current Outpatient Medications on File Prior to Visit Medication Sig acetaminophen (TYLENOL) 500 mg tablet Take 2 tablets by mouth every 6 hours as needed for pain. docusate sodium (COLACE) 100 mg capsule Take 1 capsule by mouth twice daily as needed for constipation for up to 7 days. sodium bicarbonate 650 mg tablet Take 1 tablet by mouth three times daily. carvedilol (COREG) 25 mg tablet Take 1 tablet by mouth twice daily. furosemide (LASIX) 20 mg tablet Take 1 tablet by mouth once daily. magnesium/vitamin E/pyridoxine (VITAMIN B6-VITAMIN E-MAGNESIUM ORAL) Take 1 tablet by mouth once daily. gabapentin (NEURONTIN) 100 mg capsule Take 100 mg by mouth once daily. tacrolimus IR (PROGRAF) 0.5 mg capsule Take 1 capsule by mouth twice daily. azelastine (ASTELIN) 0.1% nasal spray Use 2 Sprays in each nostril twice daily. (Patient taking differently: Use 2 Sprays in each nostril twice daily as needed. ) atorvastatin (LIPITOR) 40 mg tablet Take 1 tablet by mouth daily at bedtime. dilTIAZem CD (CARDIZEM CD, CARTIA XT) 240 mg 24 hr capsule Take 1 capsule by mouth once daily. pyridoxine, vitamin B6, (VITAMIN B6) 100 mg tablet Take 1 tablet by mouth once daily. aspirin 81 mg chewable tablet Take 1 tablet by mouth once daily. Blood Pressure Monitor 1 Each twice daily. (Patient taking differently: 1 Each twice daily as needed. ) Cholecalciferol, Vitamin D3, 5,000 unit tab Take 1 tablet by mouth once daily. No current facility-administered medications on file prior to visit. Social History Social History Tobacco Use Smoking status: Never Smoker Smokeless tobacco: Never Used Vaping Use Vaping Use: Never used Substance Use Topics Alcohol use: No Alcohol/week: 0.0 standard drinks Comment: last drink was in July 2012 Drug use: No Review of Symptoms REVIEW OF SYSTEMS GENERAL: No weight loss, malaise or fevers RESPIRATORY: Negative for cough, hemoptysis, wheezing, COPD, dyspnea or shortness of breath CARDIOVASCULAR: Negative for chest pain, leg swelling, hypertension, CHF or palpitations GI: No nausea, vomiting, or diarrhea. Denies hematochezia/melena. SKIN: Negative for lesions, rash, and itching EXAM: BP 146/70 Pulse 64 Temp 36.7 C (98.1 F) (Left Tympanic) Resp 20 Wt 93.5 kg (206 lb 3.2 oz) BMI 32.29 kg/m General Appearance: Well appearing, alert, in no acute distress, well-hydrated, well nourished.. Skin: Large central abdominal incision healing well without surrounding erythema/cellulitis or drainage. Lungs: Lungs clear to auscultation. No wheezing, rhonchi, rales.. Heart: RRR without murmur, gallop, or rubs. No ectopy. Abdomen: Normal abdominal exam, Abdomen soft, non-tender. Bowel sounds normal. No masses, organomegaly. Extremities: Right lower extremity with 2+ edema to knee. Patient states this has been this way foryears and is 2/2 stroke. Left LE normal. Health Maintenance List SHINGRIX VACCINE(1 of 2) Never done DILATED RETINAL EXAM due on 08/28/2018 COVID-19 VACCINE(4 - Booster for Pfizer series) due on 08/10/2021 ADVANCE DIRECTIVE DISCUSSION Never done DIABETIC FOOT EXAM due on 05/18/2022 HBA1C due on 05/23/2022 LDL CHOLESTEROL due on 11/06/2022 ANNUAL PCP TEAM CHRONIC DISEASE VISIT due on 11/16/2022 BP CONTROLLED (<130/80) due on 11/29/2022 SERUM CREATININE due on 12/19/2022 HEMOGLOBIN/HEMATOCRIT due on 12/19/2022 DTAP,TDAP,TD(2 - Td or Tdap) due on 02/01/2023 HEPATITIS B Completed ADULT PREVNAR Completed INFLUENZA Completed HEPATITIS C SCREENING Completed PNEUMOVAX AGE 65 AND OVER WITH 5YR LOOKBACK Completed MENINGOCOCCAL CONJUGATE Aged Out DEPRESSION SCREENING Discontinued Data reviewed Component Latest Ref Rng & Units 12/18/2021 12/19/2021 WBC 3.70 - 11.00 k/uL 7.00 6.84 RBC 4.20 - 6.00 m/uL 2.77 (L) 2.85 (L) Hemoglobin 13.0 - 17.0 g/dL 8.0 (L) 8.3 (L) Hematocrit 39.0 - 51.0 % 25.9 (L) 26.8 (L) MCV 80.0 - 100.0 fL 93.5 94.0 MCH 26.0 - 34.0 pg 28.9 29.1 MCHC 30.5 - 36.0 g/dL 30.9 31.0 RDW-CV 11.5 - 15.0 % 15.4 (H) 15.5 (H) Platelet Count 150 - 400 k/uL 103 (L) 100 (L) MPV 9.0 - 12.7 fL 9.6 9.0 NRBC /100 WBC 0.0 0.0 Absolute nRBC <0.01 k/uL <0.01 <0.01 Neut% % 77.2 76.0 Abs Neut (ANC) 1.45 - 7.50 k/uL 5.40 5.20 Lymph% % 8.8 10.0 Abs Lymph 1.00 - 4.00 k/uL 0.62 (L) 0.68 (L) [place]% % 6.1 6.0 Abs [place] <0.87 k/uL 0.43 0.41 Eosin% % 4.4 3.0 Abs Eosin <0.46 k/uL 0.31 0.21 Baso% % 0.0 0.0 Abs Baso <0.11 k/uL 0.00 0.00 Realym% % 0.0 [place]% % 0.9 2.0 Myelo% % 2.6 3.0 Left Shift Present Present Platelet Estimate Decreased Decreased Red Cell Morph Reviewed Reviewed: see results of individual morphologies Polychromasia Slight Slight Anisocytosis Present Present DTYPE Manual Manual Ovalocytes Few Glucose 74 - 99 mg/dL 145 (H) 121 (H) BUN 9 - 24 mg/dL 99 (H) 89 (H) Creatinine 0.73 - 1.22 mg/dL 4.15 (H) 3.62 (H) Sodium 136 - 144 mmol/L 140 140 Potassium 3.7 - 5.1 mmol/L 4.9 4.7 Chloride 97 - 105 mmol/L 106 (H) 108 (H) CO2 22 - 30 mmol/L 21 (L) 20 (L) Anion Gap 9 - 18 mmol/L 13 12 Calcium 8.5 - 10.2 mg/dL 9.1 8.9 eGFR >=60 mL/min/1.73m 14 (L) 17 (L) Albumin 3.9 - 4.9 g/dL 3.3 (L) 3.0 (L) Bilirubin, Total 0.2 - 1.3 mg/dL 0.8 0.8 Bilirubin, Conjug <0.2 mg/dL 0.2 (H) 0.2 (H) Alkaline Phosphatase 38 - 113 U/L 70 72 AST 14 - 40 U/L 26 28 ALT 10 - 54 U/L <5 (L) 8 (L) Protein, Total 6.3 - 8.0 g/dL 5.7 (L) 5.5 (L) Tacrolimus/FK506 5.0 - 20.0 ng/mL <2.0 (L) 2.2 (L) Phosphorus 2.7 - 4.8 mg/dL 3.9 3.8 Glucose, Point of Care 74 - 99 mg/dL 131 (A) ASSESSMENT/PLAN: 1. S/P repair of ventral hernia - ICD9: V45.89, ICD10: Z98.890, Z87.19 (primary diagnosis) Surgical site healing well. Tolerating PO diet and has appropriate appointments scheduled for follow up. Will continue him on his current regimen at this time and follow up on labs obtained this morning. Red flags for re-assessment reviewed with patient in detail. 2. ABLA (acute blood loss anemia) - ICD9: 285.1, ICD10: D62 Follow up CBC results. 3. CKD (chronic kidney disease) stage 4, GFR 15-29 ml/min (HCC) - ICD9: 585.4, ICD10: N18.4 Recommend low sodium diet, avoidance of NSAIDs. Patient states that nephrology will review his lab results and will see him earlier than April if trend is worsening. 4. Essential hypertension - ICD9: 401.9, ICD10: I10 - suboptimal control - Continue current medication(s) - Encouraged dietary sodium restriction/DASH diet - Recommended regular aerobic exercise. - Follow up in 2 weeks for BP recheck. - Reviewed risks of HTN and principles of treatment - Goal of BP <140/90 5. Hospital discharge follow-up - ICD9: V67.59, ICD10: Z09 Doing well after surgery. Keep scheduled follow ups. Call with any concerns. 6. Elevated troponin level - ICD9: 790.6, ICD10: R77.8 Abnormal stress test in October. Patient managed by cardiology who is recommending medical managementat this point. Has 6 month follow up scheduled. Lavell Flores MD documented in this encounterMercy Health [facility]05-05-2022 Miscellaneous Notes* Telephone Encounter - Haylee Mendieta Ma - 12/21/2021 3:33 PM EDT Detailed message left on José Antonio's Identified VM. Haylee Mendieta Ma * Telephone Encounter - Sanju Banerjee MD - 12/21/2021 3:22 PM EDT Yes I will follow. * Telephone Encounter - Noé Escobedo LPN - 12/21/2021 11:13 AM EDT José Antonio, PT from [facility] calling stating pt was just discharged from Hospital for ventral hernia repair. Pt is going to be needing OT and a nursing assessment. Needing VO that DR Banerjee will follow once plan of care is in place. Please call José Antonio [phone] Ok to leave vm with VO on secure line. Noé Escobedo LPN documented in this encounterMercy Health Fair[facility] Hospital05-04-2022 Miscellaneous Notes* Telephone Encounter - Antoine Estrada RN - 12/20/2021 11:18 AM EDT Spoke with daughter who states her dad is resting at home. He brain fog is clearing and he is walking and drinking water. Tacrolimus was restarted after being on hold for 5 days for NASIR. LFTs remain wnl and Scr trending down now 6.62. Instructed to repeat labs on Saturday of next week and will assess FK levels. Encouraged continued fluids and ambulation as able. Advised once hernia healed will transition back to mTOR. All questions answered, no further needs at this time. Antoine Estrada RN, BSN, [facility] Liver Binder Operator documented in this encounterMercy Health Fairfield Hospital05-04-2022 History of Present illness Narrative* Carmen Palafox RN - 12/20/2021 9:17 AM EDT TRANSITIONAL CARE MANAGEMENT (TCM) COMMUNITY MONITORING PROGRAM Provider Action/FYI: TCM INITIAL OUTREACH NEED F/U APPT WITH PCP WITHIN 14 DAYS 12-25-2021 FAMP WSTR VENTRAL HERNIA RECURRENT STAGE 4 CKD OPERATIONS DURING HOSPITALIZATION: Procedure(s) (LRB): COMPLEX REPAIR WOUND OF ABDOMEN he underwent a ventral hernia repair with mesh INCISION SITE - RODRI NO REDNESS, SWELLING OR DRAINAGE PAIN - 0/10 NAUSEA/VOMITING - NO EATING/DRINKING - NO URINATING - YES BOWEL - BM's, PASSING GAS AMBULATING - UP WALKING VERBAL CONSENT TO SPEAK WITH (BRITTANI), STATES PATIENT IS DOING BETTER BETTER, DENIES ANY ISSUESOR CONCERNS, AWARE OF MEDICATIONS AND F/U APPT, PATIENT STABLE VERBALIZED UNDERSTANDING SUMMARY: Pt discharged from [facility] on 12-19-3032 Admitted for: Ventral hernia, recurrent Contact made with patient: Yes Hi my name is Carmen Palafox RN and I am calling [facility] on behalf of your PCP, Sanju Banerjee MD I understand you were recently in the hospital so I am calling to check in with you to ensure you are feeling well now that you're home. May I ask you a few questions related to your hospital stay and well-being? Yes Contact with patient post discharge, spoke to patient. Patient identified by name and . Do you feel your health is BETTER, WORSE, or the SAME since leaving the hospital? Better ACTION TAKEN: Patient indicated symptoms are better or same, no action required. Continue outreach. MEDICATIONS: Many patients have questions or concerns about their medications once they are home. Do you have any questions about taking your medications or which medication you should be on? No Do you need any medication refills at this time, including any of the medications you might take only when needed? No ACTION TAKEN: No action required For RNs or Pharmacy completing outreach ONLY, was a medication review completed? Yes SOCIAL: We would like to make sure you have what you need so that your basics needs are met - including your personal safety, food, housing and medications. Would you like to speak with a social work steamship agent to help give you support for any of these needs? No It can be normal to feel anxious or down during a time like this. Would you like to talk to a mental health professional about how you have been feeling? No ACTION TAKEN: No action taken DISCHARGE INTRUCTIONS: Your discharge instructions / After Visit Summary (AVS) are important in guiding you through the recovery process. Do you have any questions related to your discharge instructions? No Do you have all the necessary equipment and supplies at home? Yes ACTION TAKEN: No action required I would like to help you schedule a hospital follow-up virtual or telephone visit with your PCP. This is a great way for you to connect with your provider to ensure you have safely transitioned home.If you are agreeable, I will send your request to a surgical scheduler who will contact and assist you with that appointment. This will give you an opportunity to ask any questions or address any concerns youmay have with your PCP. Inform the patient that if they have any questions or concerns prior to that appointment, to call their PCP's office right away. ACTION TAKEN: No action required, patient already has an appointment scheduled. Your doctor would like us to remind you of the recommendations regarding the coronavirus (Covid19) outbreak: Avoid public places as much as possible. Avoid close contact (within 6 feet) with others you don t live with, especially if they are sick. Stay home if you are sick. Wash your hands regularly for at least 20 seconds with soap and water. Wear a cloth mask in public places to help reduce community spread. Do not go to your Doctor s office unless instructed to do so. For any non- emergency symptoms, call your Doctor s office to get instructions on how to manage (we might recommend a telephone or virtualvisit). For emergency symptoms, proceed to Emergency Department as usual but inform them of cough and fever symptoms EVON if present (or call on the way if possible). TCM Home Visit Referral Source of Stratification: [facility] Hospital Admission Status: Discharged Readmission Risk Score: 26 JEREMY Score: 23 Program referral criteria met: Does not meet referral criteria Patient does not qualify for High Risk TCM Home Visit program due to: Does not meet referral criteria Patient does not quality for High Risk TCM Home Visit Program due to: Does not meet referral criteria Preferred contact number: [phone] Is patient staying somewhere other than the listed home address: No Dialysis Patient: No [facility] Miscellaneous Notes* Telephone Encounter - Antoine Estrada RN - 12/18/2021 12:37 PM EDT Received text from daughter, L:johan who advised patient was not receiving his tacrolimus. Advised tacrolimus was held for worsening Scr. Advised Scr remains elevated but trending down and LFTs remain wnl. Amberly thanked me, no further needs at this time. Antoine Estrada RN, BSN, [facility] Liver Binder Operator documented in this encounter[facility]27[facility] History of Past illness Narrative* Problem Noted Date Resolved Date Hyperkalemia 12/13/2021 12/18/2021 Last Assessment & Plan: Assessment: Improved, K+ is 4.9 on today's labs. Hyperkalemic trends with recent BMPs. PLAN: - Continuous tele monitoring ordered - Daily BMPs Ileus, postoperative 12/13/2021 12/18/2021 Last Assessment & Plan: Assessment: POD3 ventral hernia repair with mesh. Now with bowel function. No nausea, vomiting. PLAN: - D/C NGT. - Advance to CLD - Continue to get OOB Ventral hernia, recurrent 12/12/20212021 Metabolic acidosis 11/25/2019 10/25/2020 Medication management 05/18/2019 10/19/2019 Hyperkalemia 04/24/2019 10/25/2020 Last Assessment & Plan: K 5.2 at time of discharge, likely elevated in setting of NASIR on CKD Patient also stated that he was eating potatoes with every meal because that was what they were giving him He has had hyperkalemia in the past PLAN: - Switched to renal diet - Educated patient on what foods to avoid - Recheck BMP on Saturday at PCP follow up appointment for monitoring of K Transaminitis 03/25/2019 03/27/2019 Pain in left foot 02/20/2019 10/25/2020 CKD (chronic kidney disease) stage 3, GFR 30-59 ml/min 06/19/2016 10/25/2020 Overview: Seeing Dr. 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 Plan: Continue pantoprazole 40mg qday. Last Assessment & Plan: Assessment: h/o, no longer taking rx SUMMARY 01/13/2013 10/19/2019 Overview: Mr. 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 Mr. Sanon and his describe two normal bowel movements earlier in the day, and 3 episodes of blood in the stool since about 2 PM this afternoon. He describes the first episode as having fresh bright red blood larger in volume than several tablespoons which also mixed into the stool and toilet water. He had another episode earlier this evening, and a third episode upon admission to [facility] which was much less blood and mostly mixed into the stool. He denies hemoptysis, hematemesis, or other site of bleeding. Upon discharge 02/04/13 his hemoglobin was 8.6. In the ED tonight, Hgb is 8.4, Hct 24.4, plt 41. Ascites 01/13/2013 10/19/2019 Overview: Patient denies known history of SBP. Denies current abdominal tenderness, and no large volume ascites with need for paracentesis 02/06/2013. Plan: - ? Diuretics - will D/W nephrology Cirrhosis of liver 10/25/2020 documented as of this encounter (statuses as of 12/18/2021) [facility]04[facility] History of Past illness Narrative* Problem Noted Date Resolved Date Hyperkalemia 12/13/2021 12/18/2021 Last Assessment & Plan: Assessment: Improved, K+ is 4.9 on today's labs. Hyperkalemic trends with recent BMPs. PLAN: - Continuous tele monitoring ordered - Daily BMPs Ileus, postoperative 12/13/2021 12/18/2021 Last Assessment & Plan: Assessment: POD3 ventral hernia repair with mesh. Now with bowel function. No nausea, vomiting. PLAN: - D/C NGT. - Advance to [facility]D - Continue to get OOB Ventral hernia, recurrent 12/12/20212021 Metabolic acidosis 11/25/2019 10/25/2020 Medication management 05/18/2019 10/19/2019 Hyperkalemia 04/24/2019 10/25/2020 Last Assessment & Plan: K 5.2 at time of discharge, likely elevated in setting of NASIR on CKD Patient also stated that he was eating potatoes with every meal because that was what they were giving him He has had hyperkalemia in the past PLAN: - Switched to renal diet - Educated patient on what foods to avoid - Recheck BMP on Saturday at PCP follow up appointment for monitoring of K Transaminitis 03/25/2019 03/27/2019 Pain in left foot 02/20/2019 10/25/2020 CKD (chronic kidney disease) stage 3, GFR 30-59 ml/min 06/19/2016 10/25/2020 Overview: Seeing Dr. 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 Plan: Continue pantoprazole 40mg qday. Last Assessment & Plan: Assessment: h/o, no longer taking rx SUMMARY 01/13/2013 10/19/2019 Overview: Mr. 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 Mr. Sanon and his describe two normal bowel movements earlier in the day, and 3 episodes of blood in the stool since about 2 PM this afternoon. He describes the first episode as having fresh bright red blood larger in volume than several tablespoons which also mixed into the stool and toilet water. He had another episode earlier this evening, and a third episode upon admission to [facility] which was much less blood and mostly mixed into the stool. He denies hemoptysis, hematemesis, or other site of bleeding. Upon discharge 02/04/13 his hemoglobin was 8.6. In the ED tonight, Hgb is 8.4, Hct 24.4, plt 41. Ascites 01/13/2013 10/19/2019 Overview: Patient denies known history of SBP. Denies current abdominal tenderness, and no large volume ascites with need for paracentesis 02/06/2013. Plan: - ? Diuretics - will D/W nephrology Cirrhosis of liver 10/25/2020 documented as of this encounter (statuses as of 12/18/2021) [facility] History of Past illness Narrative* Problem Noted Date Resolved Date Hyperkalemia 12/13/2021 12/18/2021 Last Assessment & Plan: Assessment: Improved, K+ is 4.9 on today's labs. Hyperkalemic trends with recent BMPs. PLAN: - Continuous tele monitoring ordered - Daily BMPs Ileus, postoperative 12/13/2021 12/18/2021 Last Assessment & Plan: Assessment: POD3 ventral hernia repair with mesh. Now with bowel function. No nausea, vomiting. PLAN: - D/C NGT. - Advance to [facility] - Continue to get OOB Ventral hernia, recurrent 12/12/20212021 Metabolic acidosis 11/25/2019 10/25/2020 Medication management 05/18/2019 10/19/2019 Hyperkalemia 04/24/2019 10/25/2020 Last Assessment & Plan: K 5.2 at time of discharge, likely elevated in setting of NASIR on CKD Patient also stated that he was eating potatoes with every meal because that was what they were giving him He has had hyperkalemia in the past PLAN: - Switched to renal diet - Educated patient on what foods to avoid - Recheck BMP on Saturday at PCP follow up appointment for monitoring of K Transaminitis 03/25/2019 03/27/2019 Pain in left foot 02/20/2019 10/25/2020 CKD (chronic kidney disease) stage 3, GFR 30-59 ml/min 06/19/2016 10/25/2020 Overview: Seeing Dr. 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 Plan: Continue pantoprazole 40mg qday. Last Assessment & Plan: Assessment: h/o, no longer taking rx SUMMARY 01/13/2013 10/19/2019 Overview: Mr. 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 Mr. Sanon and his describe two normal bowel movements earlier in the day, and 3 episodes of blood in the stool since about 2 PM this afternoon. He describes the first episode as having fresh bright red blood larger in volume than several tablespoons which also mixed into the stool and toilet water. He had another episode earlier this evening, and a third episode upon admission to [facility] which was much less blood and mostly mixed into the stool. He denies hemoptysis, hematemesis, or other site of bleeding. Upon discharge 02/04/13 his hemoglobin was 8.6. In the ED tonight, Hgb is 8.4, Hct 24.4, plt 41. Ascites 01/13/2013 10/19/2019 Overview: Patient denies known history of SBP. Denies current abdominal tenderness, and no large volume ascites with need for paracentesis 02/06/2013. Plan: - ? Diuretics - will D/W nephrology Cirrhosis of liver 10/25/2020 documented as of this encounter (statuses as of 12/20/2021) [facility] History of Past illness Narrative* Problem Noted Date Resolved Date Hyperkalemia 12/13/2021 12/18/2021 Last Assessment & Plan: Assessment: Improved, K+ is 4.9 on today's labs. Hyperkalemic trends with recent BMPs. PLAN: - Continuous tele monitoring ordered - Daily BMPs Ileus, postoperative 12/13/2021 12/18/2021 Last Assessment & Plan: Assessment: POD3 ventral hernia repair with mesh. Now with bowel function. No nausea, vomiting. PLAN: - D/C NGT. - Advance to [facility] - Continue to get OOB Ventral hernia, recurrent 12/12/20212021 Metabolic acidosis 11/25/2019 10/25/2020 Medication management 05/18/2019 10/19/2019 Hyperkalemia 04/24/2019 10/25/2020 Last Assessment & Plan: K 5.2 at time of discharge, likely elevated in setting of NASIR on CKD Patient also stated that he was eating potatoes with every meal because that was what they were giving him He has had hyperkalemia in the past PLAN: - Switched to renal diet - Educated patient on what foods to avoid - Recheck BMP on Saturday at PCP follow up appointment for monitoring of K Transaminitis 03/25/2019 03/27/2019 Pain in left foot 02/20/2019 10/25/2020 CKD (chronic kidney disease) stage 3, GFR 30-59 ml/min 06/19/2016 10/25/2020 Overview: Seeing Dr. 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 Plan: Continue pantoprazole 40mg qday. Last Assessment & Plan: Assessment: h/o, no longer taking rx SUMMARY 01/13/2013 10/19/2019 Overview: Mr. 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 Mr. Sanon and his describe two normal bowel movements earlier in the day, and 3 episodes of blood in the stool since about 2 PM this afternoon. He describes the first episode as having fresh bright red blood larger in volume than several tablespoons which also mixed into the stool and toilet water. He had another episode earlier this evening, and a third episode upon admission to [facility] which was much less blood and mostly mixed into the stool. He denies hemoptysis, hematemesis, or other site of bleeding. Upon discharge 02/04/13 his hemoglobin was 8.6. In the ED tonight, Hgb is 8.4, Hct 24.4, plt 41. Ascites 01/13/2013 10/19/2019 Overview: Patient denies known history of SBP. Denies current abdominal tenderness, and no large volume ascites with need for paracentesis 02/06/2013. Plan: - ? Diuretics - will D/W nephrology Cirrhosis of liver 10/25/2020 documented as of this encounter (statuses as of 12/21/2021) [facility] of Past illness Narrative* Problem Noted Date Resolved Date Hyperkalemia 12/13/2021 12/18/2021 Last Assessment & Plan: Assessment: Improved, K+ is 4.9 on today's labs. Hyperkalemic trends with recent BMPs. PLAN: - Continuous tele monitoring ordered - Daily BMPs Ileus, postoperative 12/13/2021 12/18/2021 Last Assessment & Plan: Assessment: POD3 ventral hernia repair with mesh. Now with bowel function. No nausea, vomiting. PLAN: - D/C NGT. - Advance to [facility] - Continue to get OOB Ventral hernia, recurrent 12/12/20212021 Metabolic acidosis 11/25/2019 10/25/2020 Medication management 05/18/2019 10/19/2019 Hyperkalemia 04/24/2019 10/25/2020 Last Assessment & Plan: K 5.2 at time of discharge, likely elevated in setting of NASIR on CKD Patient also stated that he was eating potatoes with every meal because that was what they were giving him He has had hyperkalemia in the past PLAN: - Switched to renal diet - Educated patient on what foods to avoid - Recheck BMP on Saturday at PCP follow up appointment for monitoring of K Transaminitis 03/25/2019 03/27/2019 Pain in left foot 02/20/2019 10/25/2020 CKD (chronic kidney disease) stage 3, GFR 30-59 ml/min 06/19/2016 10/25/2020 Overview: Seeing Dr. 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 Plan: Continue pantoprazole 40mg qday. Last Assessment & Plan: Assessment: h/o, no longer taking rx SUMMARY 01/13/2013 10/19/2019 Overview: Mr. 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 Mr. Sanon and his describe two normal bowel movements earlier in the day, and 3 episodes of blood in the stool since about 2 PM this afternoon. He describes the first episode as having fresh bright red blood larger in volume than several tablespoons which also mixed into the stool and toilet water. He had another episode earlier this evening, and a third episode upon admission to [facility] which was much less blood and mostly mixed into the stool. He denies hemoptysis, hematemesis, or other site of bleeding. Upon discharge 02/04/13 his hemoglobin was 8.6. In the ED tonight, Hgb is 8.4, Hct 24.4, plt 41. Ascites 01/13/2013 10/19/2019 Overview: Patient denies known history of SBP. Denies current abdominal tenderness, and no large volume ascites with need for paracentesis 02/06/2013. Plan: - ? Diuretics - will D/W nephrology Cirrhosis of liver 10/25/2020 documented as of this encounter (statuses as of 12/26/2021) [facility] of Past illness Narrative* Problem Noted Date Resolved Date Hyperkalemia 12/13/2021 12/18/2021 Last Assessment & Plan: Assessment: Improved, K+ is 4.9 on today's labs. Hyperkalemic trends with recent BMPs. PLAN: - Continuous tele monitoring ordered - Daily BMPs Ileus, postoperative 12/13/2021 12/18/2021 Last Assessment & Plan: Assessment: POD3 ventral hernia repair with mesh. Now with bowel function. No nausea, vomiting. PLAN: - D/C NGT. - Advance to [facility] - Continue to get OOB Ventral hernia, recurrent 12/12/20212021 Metabolic acidosis 11/25/2019 10/25/2020 Medication management 05/18/2019 10/19/2019 Hyperkalemia 04/24/2019 10/25/2020 Last Assessment & Plan: K 5.2 at time of discharge, likely elevated in setting of NASIR on CKD Patient also stated that he was eating potatoes with every meal because that was what they were giving him He has had hyperkalemia in the past PLAN: - Switched to renal diet - Educated patient on what foods to avoid - Recheck BMP on Saturday at PCP follow up appointment for monitoring of K Transaminitis 03/25/2019 03/27/2019 Pain in left foot 02/20/2019 10/25/2020 CKD (chronic kidney disease) stage 3, GFR 30-59 ml/min 06/19/2016 10/25/2020 Overview: Seeing Dr. 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 Plan: Continue pantoprazole 40mg qday. Last Assessment & Plan: Assessment: h/o, no longer taking rx SUMMARY 01/13/2013 10/19/2019 Overview: Mr. 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 Mr. Sanon and his describe two normal bowel movements earlier in the day, and 3 episodes of blood in the stool since about 2 PM this afternoon. He describes the first episode as having fresh bright red blood larger in volume than several tablespoons which also mixed into the stool and toilet water. He had another episode earlier this evening, and a third episode upon admission to [facility] which was much less blood and mostly mixed into the stool. He denies hemoptysis, hematemesis, or other site of bleeding. Upon discharge 02/04/13 his hemoglobin was 8.6. In the ED tonight, Hgb is 8.4, Hct 24.4, plt 41. Ascites 01/13/2013 10/19/2019 Overview: Patient denies known history of SBP. Denies current abdominal tenderness, and no large volume ascites with need for paracentesis 02/06/2013. Plan: - ? Diuretics - will D/W nephrology Cirrhosis of liver 10/25/2020 documented as of this encounter (statuses as of 01/09/2022) [facility] of Past illness Narrative* Problem Noted Date Resolved Date Hyperkalemia 12/13/2021 12/18/2021 Last Assessment & Plan: Assessment: Improved, K+ is 4.9 on today's labs. Hyperkalemic trends with recent BMPs. PLAN: - Continuous tele monitoring ordered - Daily BMPs Ileus, postoperative 12/13/2021 12/18/2021 Last Assessment & Plan: Assessment: POD3 ventral hernia repair with mesh. Now with bowel function. No nausea, vomiting. PLAN: - D/C NGT. - Advance to [facility] - Continue to get OOB Ventral hernia, recurrent 12/12/20212021 Metabolic acidosis 11/25/2019 10/25/2020 Medication management 05/18/2019 10/19/2019 Hyperkalemia 04/24/2019 10/25/2020 Last Assessment & Plan: K 5.2 at time of discharge, likely elevated in setting of NASIR on CKD Patient also stated that he was eating potatoes with every meal because that was what they were giving him He has had hyperkalemia in the past PLAN: - Switched to renal diet - Educated patient on what foods to avoid - Recheck BMP on Saturday at PCP follow up appointment for monitoring of K Transaminitis 03/25/2019 03/27/2019 Pain in left foot 02/20/2019 10/25/2020 CKD (chronic kidney disease) stage 3, GFR 30-59 ml/min 06/19/2016 10/25/2020 Overview: Seeing Dr. 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 Plan: Continue pantoprazole 40mg qday. Last Assessment & Plan: Assessment: h/o, no longer taking rx SUMMARY 01/13/2013 10/19/2019 Overview: Mr. 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 Mr. Sanon and his describe two normal bowel movements earlier in the day, and 3 episodes of blood in the stool since about 2 PM this afternoon. He describes the first episode as having fresh bright red blood larger in volume than several tablespoons which also mixed into the stool and toilet water. He had another episode earlier this evening, and a third episode upon admission to [facility] which was much less blood and mostly mixed into the stool. He denies hemoptysis, hematemesis, or other site of bleeding. Upon discharge 02/04/13 his hemoglobin was 8.6. In the ED tonight, Hgb is 8.4, Hct 24.4, plt 41. Ascites 01/13/2013 10/19/2019 Overview: Patient denies known history of SBP. Denies current abdominal tenderness, and no large volume ascites with need for paracentesis 02/06/2013. Plan: - ? Diuretics - will D/W nephrology Cirrhosis of liver 10/25/2020 documented as of this encounter (statuses as of 01/12/2022) [facility] History of Past illness Narrative* Problem Noted Date Resolved Date Hyperkalemia 12/13/2021 12/18/2021 Last Assessment & Plan: Assessment: Improved, K+ is 4.9 on today's labs. Hyperkalemic trends with recent BMPs. PLAN: - Continuous tele monitoring ordered - Daily BMPs Ileus, postoperative 12/13/2021 12/18/2021 Last Assessment & Plan: Assessment: POD3 ventral hernia repair with mesh. Now with bowel function. No nausea, vomiting. PLAN: - D/C NGT. - Advance to [facility] - Continue to get OOB Ventral hernia, recurrent 12/12/20212021 Metabolic acidosis 11/25/2019 10/25/2020 Medication management 05/18/2019 10/19/2019 Hyperkalemia 04/24/2019 10/25/2020 Last Assessment & Plan: K 5.2 at time of discharge, likely elevated in setting of NASIR on CKD Patient also stated that he was eating potatoes with every meal because that was what they were giving him He has had hyperkalemia in the past PLAN: - Switched to renal diet - Educated patient on what foods to avoid - Recheck BMP on Saturday at PCP follow up appointment for monitoring of K Transaminitis 03/25/2019 03/27/2019 Pain in left foot 02/20/2019 10/25/2020 CKD (chronic kidney disease) stage 3, GFR 30-59 ml/min 06/19/2016 10/25/2020 Overview: Seeing Dr. 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 Plan: Continue pantoprazole 40mg qday. Last Assessment & Plan: Assessment: h/o, no longer taking rx SUMMARY 01/13/2013 10/19/2019 Overview: Mr. 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 Mr. Sanon and his describe two normal bowel movements earlier in the day, and 3 episodes of blood in the stool since about 2 PM this afternoon. He describes the first episode as having fresh bright red blood larger in volume than several tablespoons which also mixed into the stool and toilet water. He had another episode earlier this evening, and a third episode upon admission to [facility] which was much less blood and mostly mixed into the stool. He denies hemoptysis, hematemesis, or other site of bleeding. Upon discharge 02/04/13 his hemoglobin was 8.6. In the ED tonight, Hgb is 8.4, Hct 24.4, plt 41. Ascites 01/13/2013 10/19/2019 Overview: Patient denies known history of SBP. Denies current abdominal tenderness, and no large volume ascites with need for paracentesis 02/06/2013. Plan: - ? Diuretics - will D/W nephrology Cirrhosis of liver 10/25/2020 documented as of this encounter (statuses as of 01/17/2022) [facility]04-27-2022 History of Past illness Narrative* Problem Noted Date Resolved Date Hyperkalemia 12/13/2021 12/18/2021 Last Assessment & Plan: Assessment: Improved, K+ is 4.9 on today's labs. Hyperkalemic trends with recent BMPs. PLAN: - Continuous tele monitoring ordered - Daily BMPs Ileus, postoperative 12/13/2021 12/18/2021 Last Assessment & Plan: Assessment: POD3 ventral hernia repair with mesh. Now with bowel function. No nausea, vomiting. PLAN: - D/C NGT. - Advance to [facility] - Continue to get OOB Ventral hernia, recurrent 12/12/20212021 Metabolic acidosis 11/25/2019 10/25/2020 Medication management 05/18/2019 10/19/2019 Hyperkalemia 04/24/2019 10/25/2020 Last Assessment & Plan: K 5.2 at time of discharge, likely elevated in setting of NASIR on CKD Patient also stated that he was eating potatoes with every meal because that was what they were giving him He has had hyperkalemia in the past PLAN: - Switched to renal diet - Educated patient on what foods to avoid - Recheck BMP on Saturday at PCP follow up appointment for monitoring of K Transaminitis 03/25/2019 03/27/2019 Pain in left foot 02/20/2019 10/25/2020 CKD (chronic kidney disease) stage 3, GFR 30-59 ml/min 06/19/2016 10/25/2020 Overview: Seeing Dr. 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 Plan: Continue pantoprazole 40mg qday. Last Assessment & Plan: Assessment: h/o, no longer taking rx SUMMARY 01/13/2013 10/19/2019 Overview: Mr. 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 Mr. Sanon and his describe two normal bowel movements earlier in the day, and 3 episodes of blood in the stool since about 2 PM this afternoon. He describes the first episode as having fresh bright red blood larger in volume than several tablespoons which also mixed into the stool and toilet water. He had another episode earlier this evening, and a third episode upon admission to [facility] which was much less blood and mostly mixed into the stool. He denies hemoptysis, hematemesis, or other site of bleeding. Upon discharge 02/04/13 his hemoglobin was 8.6. In the ED tonight, Hgb is 8.4, Hct 24.4, plt 41. Ascites 01/13/2013 10/19/2019 Overview: Patient denies known history of SBP. Denies current abdominal tenderness, and no large volume ascites with need for paracentesis 02/06/2013. Plan: - ? Diuretics - will D/W nephrology Cirrhosis of liver 10/25/2020 documented as of this encounter (statuses as of 01/23/2022) [facility]04-27-2022 History of Past illness Narrative* Problem Noted Date Resolved Date Hyperkalemia 12/13/2021 12/18/2021 Last Assessment & Plan: Assessment: Improved, K+ is 4.9 on today's labs. Hyperkalemic trends with recent BMPs. PLAN: - Continuous tele monitoring ordered - Daily BMPs Ileus, postoperative 12/13/2021 12/18/2021 Last Assessment & Plan: Assessment: POD3 ventral hernia repair with mesh. Now with bowel function. No nausea, vomiting. PLAN: - D/C NGT. - Advance to [facility] - Continue to get OOB Ventral hernia, recurrent 12/12/20212021 Metabolic acidosis 11/25/2019 10/25/2020 Medication management 05/18/2019 10/19/2019 Hyperkalemia 04/24/2019 10/25/2020 Last Assessment & Plan: K 5.2 at time of discharge, likely elevated in setting of NASIR on CKD Patient also stated that he was eating potatoes with every meal because that was what they were giving him He has had hyperkalemia in the past PLAN: - Switched to renal diet - Educated patient on what foods to avoid - Recheck BMP on Saturday at PCP follow up appointment for monitoring of K Transaminitis 03/25/2019 03/27/2019 Pain in left foot 02/20/2019 10/25/2020 CKD (chronic kidney disease) stage 3, GFR 30-59 ml/min 06/19/2016 10/25/2020 Overview: Seeing Dr. 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 Plan: Continue pantoprazole 40mg qday. Last Assessment & Plan: Assessment: h/o, no longer taking rx SUMMARY 01/13/2013 10/19/2019 Overview: Mr. 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 Mr. Sanon and his describe two normal bowel movements earlier in the day, and 3 episodes of blood in the stool since about 2 PM this afternoon. He describes the first episode as having fresh bright red blood larger in volume than several tablespoons which also mixed into the stool and toilet water. He had another episode earlier this evening, and a third episode upon admission to [facility] which was much less blood and mostly mixed into the stool. He denies hemoptysis, hematemesis, or other site of bleeding. Upon discharge 02/04/13 his hemoglobin was 8.6. In the ED tonight, Hgb is 8.4, Hct 24.4, plt 41. Ascites 01/13/2013 10/19/2019 Overview: Patient denies known history of SBP. Denies current abdominal tenderness, and no large volume ascites with need for paracentesis 02/06/2013. Plan: - ? Diuretics - will D/W nephrology Cirrhosis of liver 10/25/2020 documented as of this encounter (statuses as of 01/23/2022) [facility]04-27-2022 History of Past illness Narrative* Problem Noted Date Resolved Date Hyperkalemia 12/13/2021 12/18/2021 Last Assessment & Plan: Assessment: Improved, K+ is 4.9 on today's labs. Hyperkalemic trends with recent BMPs. PLAN: - Continuous tele monitoring ordered - Daily BMPs Ileus, postoperative 12/13/2021 12/18/2021 Last Assessment & Plan: Assessment: POD3 ventral hernia repair with mesh. Now with bowel function. No nausea, vomiting. PLAN: - D/C NGT. - Advance to [facility] - Continue to get OOB Ventral hernia, recurrent 12/12/20212021 Metabolic acidosis 11/25/2019 10/25/2020 Medication management 05/18/2019 10/19/2019 Hyperkalemia 04/24/2019 10/25/2020 Last Assessment & Plan: K 5.2 at time of discharge, likely elevated in setting of NASIR on CKD Patient also stated that he was eating potatoes with every meal because that was what they were giving him He has had hyperkalemia in the past PLAN: - Switched to renal diet - Educated patient on what foods to avoid - Recheck BMP on Saturday at PCP follow up appointment for monitoring of K Transaminitis 03/25/2019 03/27/2019 Pain in left foot 02/20/2019 10/25/2020 CKD (chronic kidney disease) stage 3, GFR 30-59 ml/min 06/19/2016 10/25/2020 Overview: Seeing Dr. 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 Plan: Continue pantoprazole 40mg qday. Last Assessment & Plan: Assessment: h/o, no longer taking rx SUMMARY 01/13/2013 10/19/2019 Overview: Mr. 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 Mr. Sanon and his describe two normal bowel movements earlier in the day, and 3 episodes of blood in the stool since about 2 PM this afternoon. He describes the first episode as having fresh bright red blood larger in volume than several tablespoons which also mixed into the stool and toilet water. He had another episode earlier this evening, and a third episode upon admission to [facility] which was much less blood and mostly mixed into the stool. He denies hemoptysis, hematemesis, or other site of bleeding. Upon discharge 02/04/13 his hemoglobin was 8.6. In the ED tonight, Hgb is 8.4, Hct 24.4, plt 41. Ascites 01/13/2013 10/19/2019 Overview: Patient denies known history of SBP. Denies current abdominal tenderness, and no large volume ascites with need for paracentesis 02/06/2013. Plan: - ? Diuretics - will D/W nephrology Cirrhosis of liver 10/25/2020 documented as of this encounter (statuses as of 01/30/2022) [facility]04-27-2022 History of Past illness Narrative* Problem Noted Date Resolved Date Hyperkalemia 12/13/2021 12/18/2021 Last Assessment & Plan: Assessment: Improved, K+ is 4.9 on today's labs. Hyperkalemic trends with recent BMPs. PLAN: - Continuous tele monitoring ordered - Daily BMPs Ileus, postoperative 12/13/2021 12/18/2021 Last Assessment & Plan: Assessment: POD3 ventral hernia repair with mesh. Now with bowel function. No nausea, vomiting. PLAN: - D/C NGT. - Advance to [facility] - Continue to get OOB Ventral hernia, recurrent 12/12/20212021 Metabolic acidosis 11/25/2019 10/25/2020 Medication management 05/18/2019 10/19/2019 Hyperkalemia 04/24/2019 10/25/2020 Last Assessment & Plan: K 5.2 at time of discharge, likely elevated in setting of NASIR on CKD Patient also stated that he was eating potatoes with every meal because that was what they were giving him He has had hyperkalemia in the past PLAN: - Switched to renal diet - Educated patient on what foods to avoid - Recheck BMP on Saturday at PCP follow up appointment for monitoring of K Transaminitis 03/25/2019 03/27/2019 Pain in left foot 02/20/2019 10/25/2020 CKD (chronic kidney disease) stage 3, GFR 30-59 ml/min 06/19/2016 10/25/2020 Overview: Seeing Dr. 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 Plan: Continue pantoprazole 40mg qday. Last Assessment & Plan: Assessment: h/o, no longer taking rx SUMMARY 01/13/2013 10/19/2019 Overview: Mr. 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 Mr. Sanon and his describe two normal bowel movements earlier in the day, and 3 episodes of blood in the stool since about 2 PM this afternoon. He describes the first episode as having fresh bright red blood larger in volume than several tablespoons which also mixed into the stool and toilet water. He had another episode earlier this evening, and a third episode upon admission to [facility] which was much less blood and mostly mixed into the stool. He denies hemoptysis, hematemesis, or other site of bleeding. Upon discharge 02/04/13 his hemoglobin was 8.6. In the ED tonight, Hgb is 8.4, Hct 24.4, plt 41. Ascites 01/13/2013 10/19/2019 Overview: Patient denies known history of SBP. Denies current abdominal tenderness, and no large volume ascites with need for paracentesis 02/06/2013. Plan: - ? Diuretics - will D/W nephrology Cirrhosis of liver 10/25/2020 documented as of this encounter (statuses as of 02/27/2022) [facility]04-27-2022 History of Past illness Narrative* Problem Noted Date Resolved Date Hyperkalemia 12/13/2021 12/18/2021 Last Assessment & Plan: Assessment: Improved, K+ is 4.9 on today's labs. Hyperkalemic trends with recent BMPs. PLAN: - Continuous tele monitoring ordered - Daily BMPs Ileus, postoperative 12/13/2021 12/18/2021 Last Assessment & Plan: Assessment: POD3 ventral hernia repair with mesh. Now with bowel function. No nausea, vomiting. PLAN: - D/C NGT. - Advance to [facility] - Continue to get OOB Ventral hernia, recurrent 12/12/20212021 Metabolic acidosis 11/25/2019 10/25/2020 Medication management 05/18/2019 10/19/2019 Hyperkalemia 04/24/2019 10/25/2020 Last Assessment & Plan: K 5.2 at time of discharge, likely elevated in setting of NASIR on CKD Patient also stated that he was eating potatoes with every meal because that was what they were giving him He has had hyperkalemia in the past PLAN: - Switched to renal diet - Educated patient on what foods to avoid - Recheck BMP on Saturday at PCP follow up appointment for monitoring of K Transaminitis 03/25/2019 03/27/2019 Pain in left foot 02/20/2019 10/25/2020 CKD (chronic kidney disease) stage 3, GFR 30-59 ml/min 06/19/2016 10/25/2020 Overview: Seeing Dr. 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 Plan: Continue pantoprazole 40mg qday. Last Assessment & Plan: Assessment: h/o, no longer taking rx SUMMARY 01/13/2013 10/19/2019 Overview: Mr. 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 Mr. Sanon and his describe two normal bowel movements earlier in the day, and 3 episodes of blood in the stool since about 2 PM this afternoon. He describes the first episode as having fresh bright red blood larger in volume than several tablespoons which also mixed into the stool and toilet water. He had another episode earlier this evening, and a third episode upon admission to [facility] which was much less blood and mostly mixed into the stool. He denies hemoptysis, hematemesis, or other site of bleeding. Upon discharge 02/04/13 his hemoglobin was 8.6. In the ED tonight, Hgb is 8.4, Hct 24.4, plt 41. Ascites 01/13/2013 10/19/2019 Overview: Patient denies known history of SBP. Denies current abdominal tenderness, and no large volume ascites with need for paracentesis 02/06/2013. Plan: - ? Diuretics - will D/W nephrology Cirrhosis of liver 10/25/2020 documented as of this encounter (statuses as of 03/15/2022) [facility]04-27-2022 History of Past illness Narrative* Problem Noted Date Resolved Date Hyperkalemia 12/13/2021 12/18/2021 Last Assessment & Plan: Assessment: Improved, K+ is 4.9 on today's labs. Hyperkalemic trends with recent BMPs. PLAN: - Continuous tele monitoring ordered - Daily BMPs Ileus, postoperative 12/13/2021 12/18/2021 Last Assessment & Plan: Assessment: POD3 ventral hernia repair with mesh. Now with bowel function. No nausea, vomiting. PLAN: - D/C NGT. - Advance to [facility] - Continue to get OOB Ventral hernia, recurrent 12/12/20212021 Metabolic acidosis 11/25/2019 10/25/2020 Medication management 05/18/2019 10/19/2019 Hyperkalemia 04/24/2019 10/25/2020 Last Assessment & Plan: K 5.2 at time of discharge, likely elevated in setting of NASIR on CKD Patient also stated that he was eating potatoes with every meal because that was what they were giving him He has had hyperkalemia in the past PLAN: - Switched to renal diet - Educated patient on what foods to avoid - Recheck BMP on Saturday at PCP follow up appointment for monitoring of K Transaminitis 03/25/2019 03/27/2019 Pain in left foot 02/20/2019 10/25/2020 CKD (chronic kidney disease) stage 3, GFR 30-59 ml/min 06/19/2016 10/25/2020 Overview: Seeing Dr. 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 Plan: Continue pantoprazole 40mg qday. Last Assessment & Plan: Assessment: h/o, no longer taking rx SUMMARY 01/13/2013 10/19/2019 Overview: Mr. 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 Mr. Sanon and his describe two normal bowel movements earlier in the day, and 3 episodes of blood in the stool since about 2 PM this afternoon. He describes the first episode as having fresh bright red blood larger in volume than several tablespoons which also mixed into the stool and toilet water. He had another episode earlier this evening, and a third episode upon admission to [facility] which was much less blood and mostly mixed into the stool. He denies hemoptysis, hematemesis, or other site of bleeding. Upon discharge 02/04/13 his hemoglobin was 8.6. In the ED tonight, Hgb is 8.4, Hct 24.4, plt 41. Ascites 01/13/2013 10/19/2019 Overview: Patient denies known history of SBP. Denies current abdominal tenderness, and no large volume ascites with need for paracentesis 02/06/2013. Plan: - ? Diuretics - will D/W nephrology Cirrhosis of liver 10/25/2020 documented as of this encounter (statuses as of 04/02/2022) [facility]04-27-[facility] History of Past illness Narrative* Problem Noted Date Resolved Date Hyperkalemia 12/13/2021 12/18/2021 Last Assessment & Plan: Assessment: Improved, K+ is 4.9 on today's labs. Hyperkalemic trends with recent BMPs. PLAN: - Continuous tele monitoring ordered - Daily BMPs Ileus, postoperative 12/13/2021 12/18/2021 Last Assessment & Plan: Assessment: POD3 ventral hernia repair with mesh. Now with bowel function. No nausea, vomiting. PLAN: - D/C NGT. - Advance to [facility] - Continue to get OOB Ventral hernia, recurrent 12/12/20212021 Metabolic acidosis 11/25/2019 10/25/2020 Medication management 05/18/2019 10/19/2019 Hyperkalemia 04/24/2019 10/25/2020 Last Assessment & Plan: K 5.2 at time of discharge, likely elevated in setting of NASIR on CKD Patient also stated that he was eating potatoes with every meal because that was what they were giving him He has had hyperkalemia in the past PLAN: - Switched to renal diet - Educated patient on what foods to avoid - Recheck BMP on Saturday at PCP follow up appointment for monitoring of K Transaminitis 03/25/2019 03/27/2019 Pain in left foot 02/20/2019 10/25/2020 CKD (chronic kidney disease) stage 3, GFR 30-59 ml/min 06/19/2016 10/25/2020 Overview: Seeing Dr. 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 Plan: Continue pantoprazole 40mg qday. Last Assessment & Plan: Assessment: h/o, no longer taking rx SUMMARY 01/13/2013 10/19/2019 Overview: Mr. 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 Mr. Sanon and his describe two normal bowel movements earlier in the day, and 3 episodes of blood in the stool since about 2 PM this afternoon. He describes the first episode as having fresh bright red blood larger in volume than several tablespoons which also mixed into the stool and toilet water. He had another episode earlier this evening, and a third episode upon admission to [facility] which was much less blood and mostly mixed into the stool. He denies hemoptysis, hematemesis, or other site of bleeding. Upon discharge 02/04/13 his hemoglobin was 8.6. In the ED tonight, Hgb is 8.4, Hct 24.4, plt 41. Ascites 01/13/2013 10/19/2019 Overview: Patient denies known history of SBP. Denies current abdominal tenderness, and no large volume ascites with need for paracentesis 02/06/2013. Plan: - ? Diuretics - will D/W nephrology Cirrhosis of liver 10/25/2020 documented as of this encounter (statuses as of 04/16/2022) [facility]04-27-2022 History of Past illness Narrative* Problem Noted Date Resolved Date Hyperkalemia 12/13/2021 12/18/2021 Last Assessment & Plan: Assessment: Improved, K+ is 4.9 on today's labs. Hyperkalemic trends with recent BMPs. PLAN: - Continuous tele monitoring ordered - Daily BMPs Ileus, postoperative 12/13/2021 12/18/2021 Last Assessment & Plan: Assessment: POD3 ventral hernia repair with mesh. Now with bowel function. No nausea, vomiting. PLAN: - D/C NGT. - Advance to [facility] - Continue to get OOB Ventral hernia, recurrent 12/12/20212021 Metabolic acidosis 11/25/2019 10/25/2020 Medication management 05/18/2019 10/19/2019 Hyperkalemia 04/24/2019 10/25/2020 Last Assessment & Plan: K 5.2 at time of discharge, likely elevated in setting of NASIR on CKD Patient also stated that he was eating potatoes with every meal because that was what they were giving him He has had hyperkalemia in the past PLAN: - Switched to renal diet - Educated patient on what foods to avoid - Recheck BMP on Saturday at PCP follow up appointment for monitoring of K Transaminitis 03/25/2019 03/27/2019 Pain in left foot 02/20/2019 10/25/2020 CKD (chronic kidney disease) stage 3, GFR 30-59 ml/min 06/19/2016 10/25/2020 Overview: Seeing Dr. 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 Plan: Continue pantoprazole 40mg qday. Last Assessment & Plan: Assessment: h/o, no longer taking rx SUMMARY 01/13/2013 10/19/2019 Overview: Mr. 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 Mr. Sanon and his describe two normal bowel movements earlier in the day, and 3 episodes of blood in the stool since about 2 PM this afternoon. He describes the first episode as having fresh bright red blood larger in volume than several tablespoons which also mixed into the stool and toilet water. He had another episode earlier this evening, and a third episode upon admission to [facility] which was much less blood and mostly mixed into the stool. He denies hemoptysis, hematemesis, or other site of bleeding. Upon discharge 02/04/13 his hemoglobin was 8.6. In the ED tonight, Hgb is 8.4, Hct 24.4, plt 41. Ascites 01/13/2013 10/19/2019 Overview: Patient denies known history of SBP. Denies current abdominal tenderness, and no large volume ascites with need for paracentesis 02/06/2013. Plan: - ? Diuretics - will D/W nephrology Cirrhosis of liver 10/25/2020 documented as of this encounter (statuses as of 05/31/2022) [facility]04-27-2022 History of Past illness Narrative* Problem Noted Date Resolved Date Hyperkalemia 12/13/2021 12/18/2021 Last Assessment & Plan: Assessment: Improved, K+ is 4.9 on today's labs. Hyperkalemic trends with recent BMPs. PLAN: - Continuous tele monitoring ordered - Daily BMPs Ileus, postoperative 12/13/2021 12/18/2021 Last Assessment & Plan: Assessment: POD3 ventral hernia repair with mesh. Now with bowel function. No nausea, vomiting. PLAN: - D/C NGT. - Advance to [facility] - Continue to get OOB Ventral hernia, recurrent 12/12/20212 Metabolic acidosis 11/25/2019 10/25/2020 Medication management 05/18/2019 10/19/2019 Hyperkalemia 04/24/2019 10/25/2020 Last Assessment & Plan: K 5.2 at time of discharge, likely elevated in setting of NASIR on CKD Patient also stated that he was eating potatoes with every meal because that was what they were giving him He has had hyperkalemia in the past PLAN: - Switched to renal diet - Educated patient on what foods to avoid - Recheck BMP on Saturday at PCP follow up appointment for monitoring of K Transaminitis 03/25/2019 03/27/2019 Pain in left foot 02/20/2019 10/25/2020 CKD (chronic kidney disease) stage 3, GFR 30-59 ml/min 06/19/2016 10/25/2020 Overview: Seeing Dr. 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 Plan: Continue pantoprazole 40mg qday. Last Assessment & Plan: Assessment: h/o, no longer taking rx SUMMARY 01/13/2013 10/19/2019 Overview: Mr. 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 Mr. Sanon and his describe two normal bowel movements earlier in the day, and 3 episodes of blood in the stool since about 2 PM this afternoon. He describes the first episode as having fresh bright red blood larger in volume than several tablespoons which also mixed into the stool and toilet water. He had another episode earlier this evening, and a third episode upon admission to [facility] which was much less blood and mostly mixed into the stool. He denies hemoptysis, hematemesis, or other site of bleeding. Upon discharge 02/04/13 his hemoglobin was 8.6. In the ED tonight, Hgb is 8.4, Hct 24.4, plt 41. Ascites 01/13/2013 10/19/2019 Overview: Patient denies known history of SBP. Denies current abdominal tenderness, and no large volume ascites with need for paracentesis 02/06/2013. Plan: - ? Diuretics - will D/W nephrology Cirrhosis of liver 10/25/2020 documented as of this encounter (statuses as of 06/07/2022) [facility]04-27-2022 History of Past illness Narrative* Problem Noted Date Resolved Date Hyperkalemia 12/13/2021 12/18/2021 Last Assessment & Plan: Assessment: Improved, K+ is 4.9 on today's labs. Hyperkalemic trends with recent BMPs. PLAN: - Continuous tele monitoring ordered - Daily BMPs Ileus, postoperative 12/13/2021 12/18/2021 Last Assessment & Plan: Assessment: POD3 ventral hernia repair with mesh. Now with bowel function. No nausea, vomiting. PLAN: - D/C NGT. - Advance to [facility] - Continue to get OOB Ventral hernia, recurrent 12/12/20212021 Metabolic acidosis 11/25/2019 10/25/2020 Medication management 05/18/2019 10/19/2019 Hyperkalemia 04/24/2019 10/25/2020 Last Assessment & Plan: K 5.2 at time of discharge, likely elevated in setting of NASIR on CKD Patient also stated that he was eating potatoes with every meal because that was what they were giving him He has had hyperkalemia in the past PLAN: - Switched to renal diet - Educated patient on what foods to avoid - Recheck BMP on Saturday at PCP follow up appointment for monitoring of K Transaminitis 03/25/2019 03/27/2019 Pain in left foot 02/20/2019 10/25/2020 CKD (chronic kidney disease) stage 3, GFR 30-59 ml/min 06/19/2016 10/25/2020 Overview: Seeing Dr. 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 Plan: Continue pantoprazole 40mg qday. Last Assessment & Plan: Assessment: h/o, no longer taking rx SUMMARY 01/13/2013 10/19/2019 Overview: Mr. 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 Mr. Sanon and his describe two normal bowel movements earlier in the day, and 3 episodes of blood in the stool since about 2 PM this afternoon. He describes the first episode as having fresh bright red blood larger in volume than several tablespoons which also mixed into the stool and toilet water. He had another episode earlier this evening, and a third episode upon admission to [facility] which was much less blood and mostly mixed into the stool. He denies hemoptysis, hematemesis, or other site of bleeding. Upon discharge 02/04/13 his hemoglobin was 8.6. In the ED tonight, Hgb is 8.4, Hct 24.4, plt 41. Ascites 01/13/2013 10/19/2019 Overview: Patient denies known history of SBP. Denies current abdominal tenderness, and no large volume ascites with need for paracentesis 02/06/2013. Plan: - ? Diuretics - will D/W nephrology Cirrhosis of liver 10/25/2020 documented as of this encounter (statuses as of 06/20/2022) [facility]04-27-2022 History of Past illness Narrative* Problem Noted Date Resolved Date Hyperkalemia 12/13/2021 12/18/2021 Last Assessment & Plan: Assessment: Improved, K+ is 4.9 on today's labs. Hyperkalemic trends with recent BMPs. PLAN: - Continuous tele monitoring ordered - Daily BMPs Ileus, postoperative 12/13/2021 12/18/2021 Last Assessment & Plan: Assessment: POD3 ventral hernia repair with mesh. Now with bowel function. No nausea, vomiting. PLAN: - D/C NGT. - Advance to [facility] - Continue to get OOB Ventral hernia, recurrent 12/12/20212021 Metabolic acidosis 11/25/2019 10/25/2020 Medication management 05/18/2019 10/19/2019 Hyperkalemia 04/24/2019 10/25/2020 Last Assessment & Plan: K 5.2 at time of discharge, likely elevated in setting of NASIR on CKD Patient also stated that he was eating potatoes with every meal because that was what they were giving him He has had hyperkalemia in the past PLAN: - Switched to renal diet - Educated patient on what foods to avoid - Recheck BMP on Saturday at PCP follow up appointment for monitoring of K Transaminitis 03/25/2019 03/27/2019 Pain in left foot 02/20/2019 10/25/2020 CKD (chronic kidney disease) stage 3, GFR 30-59 ml/min 06/19/2016 10/25/2020 Overview: Seeing Dr. 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 Plan: Continue pantoprazole 40mg qday. Last Assessment & Plan: Assessment: h/o, no longer taking rx SUMMARY 01/13/2013 10/19/2019 Overview: Mr. 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 Mr. Sanon and his describe two normal bowel movements earlier in the day, and 3 episodes of blood in the stool since about 2 PM this afternoon. He describes the first episode as having fresh bright red blood larger in volume than several tablespoons which also mixed into the stool and toilet water. He had another episode earlier this evening, and a third episode upon admission to [facility] which was much less blood and mostly mixed into the stool. He denies hemoptysis, hematemesis, or other site of bleeding. Upon discharge 02/04/13 his hemoglobin was 8.6. In the ED tonight, Hgb is 8.4, Hct 24.4, plt 41. Ascites 01/13/2013 10/19/2019 Overview: Patient denies known history of SBP. Denies current abdominal tenderness, and no large volume ascites with need for paracentesis 02/06/2013. Plan: - ? Diuretics - will D/W nephrology Cirrhosis of liver 10/25/2020 documented as of this encounter (statuses as of 06/25/2022) [facility]04-27-2022 History of Past illness Narrative* Problem Noted Date Resolved Date Hyperkalemia 12/13/2021 12/18/2021 Last Assessment & Plan: Assessment: Improved, K+ is 4.9 on today's labs. Hyperkalemic trends with recent BMPs. PLAN: - Continuous tele monitoring ordered - Daily BMPs Ileus, postoperative 12/13/2021 12/18/2021 Last Assessment & Plan: Assessment: POD3 ventral hernia repair with mesh. Now with bowel function. No nausea, vomiting. PLAN: - D/C NGT. - Advance to [facility] - Continue to get OOB Ventral hernia, recurrent 12/12/20212021 Metabolic acidosis 11/25/2019 10/25/2020 Medication management 05/18/2019 10/19/2019 Hyperkalemia 04/24/2019 10/25/2020 Last Assessment & Plan: K 5.2 at time of discharge, likely elevated in setting of NASIR on CKD Patient also stated that he was eating potatoes with every meal because that was what they were giving him He has had hyperkalemia in the past PLAN: - Switched to renal diet - Educated patient on what foods to avoid - Recheck BMP on Saturday at PCP follow up appointment for monitoring of K Transaminitis 03/25/2019 03/27/2019 Pain in left foot 02/20/2019 10/25/2020 CKD (chronic kidney disease) stage 3, GFR 30-59 ml/min 06/19/2016 10/25/2020 Overview: Seeing Dr. 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 Plan: Continue pantoprazole 40mg qday. Last Assessment & Plan: Assessment: h/o, no longer taking rx SUMMARY 01/13/2013 10/19/2019 Overview: Mr. 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 Mr. Sanon and his describe two normal bowel movements earlier in the day, and 3 episodes of blood in the stool since about 2 PM this afternoon. He describes the first episode as having fresh bright red blood larger in volume than several tablespoons which also mixed into the stool and toilet water. He had another episode earlier this evening, and a third episode upon admission to [facility] which was much less blood and mostly mixed into the stool. He denies hemoptysis, hematemesis, or other site of bleeding. Upon discharge 02/04/13 his hemoglobin was 8.6. In the ED tonight, Hgb is 8.4, Hct 24.4, plt 41. Ascites 01/13/2013 10/19/2019 Overview: Patient denies known history of SBP. Denies current abdominal tenderness, and no large volume ascites with need for paracentesis 02/06/2013. Plan: - ? Diuretics - will D/W nephrology Cirrhosis of liver 10/25/2020 documented as of this encounter (statuses as of 06/29/2022) [facility]04-27-2022 History of Past illness Narrative* Problem Noted Date Resolved Date Hyperkalemia 12/13/2021 12/18/2021 Last Assessment & Plan: Assessment: Improved, K+ is 4.9 on today's labs. Hyperkalemic trends with recent BMPs. PLAN: - Continuous tele monitoring ordered - Daily BMPs Ileus, postoperative 12/13/2021 12/18/2021 Last Assessment & Plan: Assessment: POD3 ventral hernia repair with mesh. Now with bowel function. No nausea, vomiting. PLAN: - D/C NGT. - Advance to [facility] - Continue to get OOB Ventral hernia, recurrent 12/12/20212021 Metabolic acidosis 11/25/2019 10/25/2020 Medication management 05/18/2019 10/19/2019 Hyperkalemia 04/24/2019 10/25/2020 Last Assessment & Plan: K 5.2 at time of discharge, likely elevated in setting of NASIR on CKD Patient also stated that he was eating potatoes with every meal because that was what they were giving him He has had hyperkalemia in the past PLAN: - Switched to renal diet - Educated patient on what foods to avoid - Recheck BMP on Saturday at PCP follow up appointment for monitoring of K Transaminitis 03/25/2019 03/27/2019 Pain in left foot 02/20/2019 10/25/2020 CKD (chronic kidney disease) stage 3, GFR 30-59 ml/min 06/19/2016 10/25/2020 Overview: Seeing Dr. 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 Plan: Continue pantoprazole 40mg qday. Last Assessment & Plan: Assessment: h/o, no longer taking rx SUMMARY 01/13/2013 10/19/2019 Overview: Mr. 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 Mr. Sanon and his describe two normal bowel movements earlier in the day, and 3 episodes of blood in the stool since about 2 PM this afternoon. He describes the first episode as having fresh bright red blood larger in volume than several tablespoons which also mixed into the stool and toilet water. He had another episode earlier this evening, and a third episode upon admission to [facility] which was much less blood and mostly mixed into the stool. He denies hemoptysis, hematemesis, or other site of bleeding. Upon discharge 02/04/13 his hemoglobin was 8.6. In the ED tonight, Hgb is 8.4, Hct 24.4, plt 41. Ascites 01/13/2013 10/19/2019 Overview: Patient denies known history of SBP. Denies current abdominal tenderness, and no large volume ascites with need for paracentesis 02/06/2013. Plan: - ? Diuretics - will D/W nephrology Cirrhosis of liver 10/25/2020 documented as of this encounter (statuses as of 06/29/2022) [facility]04-27-2022 History of Past illness Narrative* Problem Noted Date Resolved Date Hyperkalemia 12/13/2021 12/18/2021 Last Assessment & Plan: Assessment: Improved, K+ is 4.9 on today's labs. Hyperkalemic trends with recent BMPs. PLAN: - Continuous tele monitoring ordered - Daily BMPs Ileus, postoperative 12/13/2021 12/18/2021 Last Assessment & Plan: Assessment: POD3 ventral hernia repair with mesh. Now with bowel function. No nausea, vomiting. PLAN: - D/C NGT. - Advance to [facility] - Continue to get OOB Ventral hernia, recurrent 12/12/20212021 Metabolic acidosis 11/25/2019 10/25/2020 Medication management 05/18/2019 10/19/2019 Hyperkalemia 04/24/2019 10/25/2020 Last Assessment & Plan: K 5.2 at time of discharge, likely elevated in setting of NASIR on CKD Patient also stated that he was eating potatoes with every meal because that was what they were giving him He has had hyperkalemia in the past PLAN: - Switched to renal diet - Educated patient on what foods to avoid - Recheck BMP on Saturday at PCP follow up appointment for monitoring of K Transaminitis 03/25/2019 03/27/2019 Pain in left foot 02/20/2019 10/25/2020 CKD (chronic kidney disease) stage 3, GFR 30-59 ml/min 06/19/2016 10/25/2020 Overview: Seeing Dr. 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 Plan: Continue pantoprazole 40mg qday. Last Assessment & Plan: Assessment: h/o, no longer taking rx SUMMARY 01/13/2013 10/19/2019 Overview: Mr. 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 Mr. Sanon and his describe two normal bowel movements earlier in the day, and 3 episodes of blood in the stool since about 2 PM this afternoon. He describes the first episode as having fresh bright red blood larger in volume than several tablespoons which also mixed into the stool and toilet water. He had another episode earlier this evening, and a third episode upon admission to [facility] which was much less blood and mostly mixed into the stool. He denies hemoptysis, hematemesis, or other site of bleeding. Upon discharge 02/04/13 his hemoglobin was 8.6. In the ED tonight, Hgb is 8.4, Hct 24.4, plt 41. Ascites 01/13/2013 10/19/2019 Overview: Patient denies known history of SBP. Denies current abdominal tenderness, and no large volume ascites with need for paracentesis 02/06/2013. Plan: - ? Diuretics - will D/W nephrology Cirrhosis of liver 10/25/2020 documented as of this encounter (statuses as of 07/09/2022) [facility]04-27-2022 History of Past illness Narrative* Problem Noted Date Resolved Date Hyperkalemia 12/13/2021 12/18/2021 Last Assessment & Plan: Assessment: Improved, K+ is 4.9 on today's labs. Hyperkalemic trends with recent BMPs. PLAN: - Continuous tele monitoring ordered - Daily BMPs Ileus, postoperative 12/13/2021 12/18/2021 Last Assessment & Plan: Assessment: POD3 ventral hernia repair with mesh. Now with bowel function. No nausea, vomiting. PLAN: - D/C NGT. - Advance to [facility] - Continue to get OOB Ventral hernia, recurrent 12/12/20212021 Metabolic acidosis 11/25/2019 10/25/2020 Medication management 05/18/2019 10/19/2019 Hyperkalemia 04/24/2019 10/25/2020 Last Assessment & Plan: K 5.2 at time of discharge, likely elevated in setting of NASIR on CKD Patient also stated that he was eating potatoes with every meal because that was what they were giving him He has had hyperkalemia in the past PLAN: - Switched to renal diet - Educated patient on what foods to avoid - Recheck BMP on Saturday at PCP follow up appointment for monitoring of K Transaminitis 03/25/2019 03/27/2019 Pain in left foot 02/20/2019 10/25/2020 CKD (chronic kidney disease) stage 3, GFR 30-59 ml/min 06/19/2016 10/25/2020 Overview: Seeing Dr. 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 Plan: Continue pantoprazole 40mg qday. Last Assessment & Plan: Assessment: h/o, no longer taking rx SUMMARY 01/13/2013 10/19/2019 Overview: Mr. 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 Mr. Sanon and his describe two normal bowel movements earlier in the day, and 3 episodes of blood in the stool since about 2 PM this afternoon. He describes the first episode as having fresh bright red blood larger in volume than several tablespoons which also mixed into the stool and toilet water. He had another episode earlier this evening, and a third episode upon admission to [facility] which was much less blood and mostly mixed into the stool. He denies hemoptysis, hematemesis, or other site of bleeding. Upon discharge 02/04/13 his hemoglobin was 8.6. In the ED tonight, Hgb is 8.4, Hct 24.4, plt 41. Ascites 01/13/2013 10/19/2019 Overview: Patient denies known history of SBP. Denies current abdominal tenderness, and no large volume ascites with need for paracentesis 02/06/2013. Plan: - ? Diuretics - will D/W nephrology Cirrhosis of liver 10/25/2020 documented as of this encounter (statuses as of 07/12/2022) [facility]04-27-2022 History of Past illness Narrative* Problem Noted Date Resolved Date Hyperkalemia 12/13/2021 12/18/2021 Last Assessment & Plan: Assessment: Improved, K+ is 4.9 on today's labs. Hyperkalemic trends with recent BMPs. PLAN: - Continuous tele monitoring ordered - Daily BMPs Ileus, postoperative 12/13/2021 12/18/2021 Last Assessment & Plan: Assessment: POD3 ventral hernia repair with mesh. Now with bowel function. No nausea, vomiting. PLAN: - D/C NGT. - Advance to [facility] - Continue to get OOB Ventral hernia, recurrent 12/12/20212021 Metabolic acidosis 11/25/2019 10/25/2020 Medication management 05/18/2019 10/19/2019 Hyperkalemia 04/24/2019 10/25/2020 Last Assessment & Plan: K 5.2 at time of discharge, likely elevated in setting of NASIR on CKD Patient also stated that he was eating potatoes with every meal because that was what they were giving him He has had hyperkalemia in the past PLAN: - Switched to renal diet - Educated patient on what foods to avoid - Recheck BMP on Saturday at PCP follow up appointment for monitoring of K Transaminitis 03/25/2019 03/27/2019 Pain in left foot 02/20/2019 10/25/2020 CKD (chronic kidney disease) stage 3, GFR 30-59 ml/min 06/19/2016 10/25/2020 Overview: Seeing Dr. 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 Plan: Continue pantoprazole 40mg qday. Last Assessment & Plan: Assessment: h/o, no longer taking rx SUMMARY 01/13/2013 10/19/2019 Overview: Mr. 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 Mr. Sanon and his describe two normal bowel movements earlier in the day, and 3 episodes of blood in the stool since about 2 PM this afternoon. He describes the first episode as having fresh bright red blood larger in volume than several tablespoons which also mixed into the stool and toilet water. He had another episode earlier this evening, and a third episode upon admission to [facility] which was much less blood and mostly mixed into the stool. He denies hemoptysis, hematemesis, or other site of bleeding. Upon discharge 02/04/13 his hemoglobin was 8.6. In the ED tonight, Hgb is 8.4, Hct 24.4, plt 41. Ascites 01/13/2013 10/19/2019 Overview: Patient denies known history of SBP. Denies current abdominal tenderness, and no large volume ascites with need for paracentesis 02/06/2013. Plan: - ? Diuretics - will D/W nephrology Cirrhosis of liver 10/25/2020 documented as of this encounter (statuses as of 08/02/2022) [facility]04-27-2022 History of Past illness Narrative* Problem Noted Date Resolved Date Hyperkalemia 12/13/2021 12/18/2021 Last Assessment & Plan: Assessment: Improved, K+ is 4.9 on today's labs. Hyperkalemic trends with recent BMPs. PLAN: - Continuous tele monitoring ordered - Daily BMPs Ileus, postoperative 12/13/2021 12/18/2021 Last Assessment & Plan: Assessment: POD3 ventral hernia repair with mesh. Now with bowel function. No nausea, vomiting. PLAN: - D/C NGT. - Advance to [facility] - Continue to get OOB Ventral hernia, recurrent 12/12/20212021 Metabolic acidosis 11/25/2019 10/25/2020 Medication management 05/18/2019 10/19/2019 Hyperkalemia 04/24/2019 10/25/2020 Last Assessment & Plan: K 5.2 at time of discharge, likely elevated in setting of NASIR on CKD Patient also stated that he was eating potatoes with every meal because that was what they were giving him He has had hyperkalemia in the past PLAN: - Switched to renal diet - Educated patient on what foods to avoid - Recheck BMP on Saturday at PCP follow up appointment for monitoring of K Transaminitis 03/25/2019 03/27/2019 Pain in left foot 02/20/2019 10/25/2020 CKD (chronic kidney disease) stage 3, GFR 30-59 ml/min 06/19/2016 10/25/2020 Overview: Seeing Dr. 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 Plan: Continue pantoprazole 40mg qday. Last Assessment & Plan: Assessment: h/o, no longer taking rx SUMMARY 01/13/2013 10/19/2019 Overview: Mr. 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 Mr. Sanon and his describe two normal bowel movements earlier in the day, and 3 episodes of blood in the stool since about 2 PM this afternoon. He describes the first episode as having fresh bright red blood larger in volume than several tablespoons which also mixed into the stool and toilet water. He had another episode earlier this evening, and a third episode upon admission to [facility] which was much less blood and mostly mixed into the stool. He denies hemoptysis, hematemesis, or other site of bleeding. Upon discharge 02/04/13 his hemoglobin was 8.6. In the ED tonight, Hgb is 8.4, Hct 24.4, plt 41. Ascites 01/13/2013 10/19/2019 Overview: Patient denies known history of SBP. Denies current abdominal tenderness, and no large volume ascites with need for paracentesis 02/06/2013. Plan: - ? Diuretics - will D/W nephrology Cirrhosis of liver 10/25/2020 documented as of this encounter (statuses as of 12/07/2022) [facility]04-27-2022 History of Past illness Narrative* Problem Noted Date Resolved Date Hyperkalemia 12/13/2021 12/18/2021 Last Assessment & Plan: Assessment: Improved, K+ is 4.9 on today's labs. Hyperkalemic trends with recent BMPs. PLAN: - Continuous tele monitoring ordered - Daily BMPs Ileus, postoperative 12/13/2021 12/18/2021 Last Assessment & Plan: Assessment: POD3 ventral hernia repair with mesh. Now with bowel function. No nausea, vomiting. PLAN: - D/C NGT. - Advance to [facility] - Continue to get OOB Ventral hernia, recurrent 12/12/20212021 Metabolic acidosis 11/25/2019 10/25/2020 Medication management 05/18/2019 10/19/2019 Hyperkalemia 04/24/2019 10/25/2020 Last Assessment & Plan: K 5.2 at time of discharge, likely elevated in setting of NASIR on CKD Patient also stated that he was eating potatoes with every meal because that was what they were giving him He has had hyperkalemia in the past PLAN: - Switched to renal diet - Educated patient on what foods to avoid - Recheck BMP on Saturday at PCP follow up appointment for monitoring of K Transaminitis 03/25/2019 03/27/2019 Pain in left foot 02/20/2019 10/25/2020 CKD (chronic kidney disease) stage 3, GFR 30-59 ml/min 06/19/2016 10/25/2020 Overview: Seeing Dr. 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 Plan: Continue pantoprazole 40mg qday. Last Assessment & Plan: Assessment: h/o, no longer taking rx SUMMARY 01/13/2013 10/19/2019 Overview: Mr. 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 Mr. Sanon and his describe two normal bowel movements earlier in the day, and 3 episodes of blood in the stool since about 2 PM this afternoon. He describes the first episode as having fresh bright red blood larger in volume than several tablespoons which also mixed into the stool and toilet water. He had another episode earlier this evening, and a third episode upon admission to [facility] which was much less blood and mostly mixed into the stool. He denies hemoptysis, hematemesis, or other site of bleeding. Upon discharge 02/04/13 his hemoglobin was 8.6. In the ED tonight, Hgb is 8.4, Hct 24.4, plt 41. Ascites 01/13/2013 10/19/2019 Overview: Patient denies known history of SBP. Denies current abdominal tenderness, and no large volume ascites with need for paracentesis 02/06/2013. Plan: - ? Diuretics - will D/W nephrology Cirrhosis of liver 10/25/2020 documented as of this encounter (statuses as of 12/07/2022) [facility]04-27-2022 History of Past illness Narrative* Problem Noted Date Resolved Date Hyperkalemia 12/13/2021 12/18/2021 Last Assessment & Plan: Assessment: Improved, K+ is 4.9 on today's labs. Hyperkalemic trends with recent BMPs. PLAN: - Continuous tele monitoring ordered - Daily BMPs Ileus, postoperative 12/13/2021 12/18/2021 Last Assessment & Plan: Assessment: POD3 ventral hernia repair with mesh. Now with bowel function. No nausea, vomiting. PLAN: - D/C NGT. - Advance to [facility] - Continue to get OOB Ventral hernia, recurrent 12/12/20212021 Metabolic acidosis 11/25/2019 10/25/2020 Medication management 05/18/2019 10/19/2019 Hyperkalemia 04/24/2019 10/25/2020 Last Assessment & Plan: K 5.2 at time of discharge, likely elevated in setting of NASIR on CKD Patient also stated that he was eating potatoes with every meal because that was what they were giving him He has had hyperkalemia in the past PLAN: - Switched to renal diet - Educated patient on what foods to avoid - Recheck BMP on Saturday at PCP follow up appointment for monitoring of K Transaminitis 03/25/2019 03/27/2019 Pain in left foot 02/20/2019 10/25/2020 CKD (chronic kidney disease) stage 3, GFR 30-59 ml/min 06/19/2016 10/25/2020 Overview: Seeing Dr. 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 Plan: Continue pantoprazole 40mg qday. Last Assessment & Plan: Assessment: h/o, no longer taking rx SUMMARY 01/13/2013 10/19/2019 Overview: Mr. 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 Mr. Sanon and his describe two normal bowel movements earlier in the day, and 3 episodes of blood in the stool since about 2 PM this afternoon. He describes the first episode as having fresh bright red blood larger in volume than several tablespoons which also mixed into the stool and toilet water. He had another episode earlier this evening, and a third episode upon admission to [facility] which was much less blood and mostly mixed into the stool. He denies hemoptysis, hematemesis, or other site of bleeding. Upon discharge 02/04/13 his hemoglobin was 8.6. In the ED tonight, Hgb is 8.4, Hct 24.4, plt 41. Ascites 01/13/2013 10/19/2019 Overview: Patient denies known history of SBP. Denies current abdominal tenderness, and no large volume ascites with need for paracentesis 02/06/2013. Plan: - ? Diuretics - will D/W nephrology Cirrhosis of liver 10/25/2020 documented as of this encounter (statuses as of 12/14/2022) [facility]04-27-2022 History of Past illness Narrative* Problem Noted Date Resolved Date Hyperkalemia 12/13/2021 12/18/2021 Last Assessment & Plan: Assessment: Improved, K+ is 4.9 on today's labs. Hyperkalemic trends with recent BMPs. PLAN: - Continuous tele monitoring ordered - Daily BMPs Ileus, postoperative 12/13/2021 12/18/2021 Last Assessment & Plan: Assessment: POD3 ventral hernia repair with mesh. Now with bowel function. No nausea, vomiting. PLAN: - D/C NGT. - Advance to [facility] - Continue to get OOB Ventral hernia, recurrent 12/12/20212021 Metabolic acidosis 11/25/2019 10/25/2020 Medication management 05/18/2019 10/19/2019 Hyperkalemia 04/24/2019 10/25/2020 Last Assessment & Plan: K 5.2 at time of discharge, likely elevated in setting of NASIR on CKD Patient also stated that he was eating potatoes with every meal because that was what they were giving him He has had hyperkalemia in the past PLAN: - Switched to renal diet - Educated patient on what foods to avoid - Recheck BMP on Saturday at PCP follow up appointment for monitoring of K Transaminitis 03/25/2019 03/27/2019 Pain in left foot 02/20/2019 10/25/2020 CKD (chronic kidney disease) stage 3, GFR 30-59 ml/min 06/19/2016 10/25/2020 Overview: Seeing Dr. 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 Plan: Continue pantoprazole 40mg qday. Last Assessment & Plan: Assessment: h/o, no longer taking rx SUMMARY 01/13/2013 10/19/2019 Overview: Mr. 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 Mr. Sanon and his describe two normal bowel movements earlier in the day, and 3 episodes of blood in the stool since about 2 PM this afternoon. He describes the first episode as having fresh bright red blood larger in volume than several tablespoons which also mixed into the stool and toilet water. He had another episode earlier this evening, and a third episode upon admission to [facility] which was much less blood and mostly mixed into the stool. He denies hemoptysis, hematemesis, or other site of bleeding. Upon discharge 02/04/13 his hemoglobin was 8.6. In the ED tonight, Hgb is 8.4, Hct 24.4, plt 41. Ascites 01/13/2013 10/19/2019 Overview: Patient denies known history of SBP. Denies current abdominal tenderness, and no large volume ascites with need for paracentesis 02/06/2013. Plan: - ? Diuretics - will D/W nephrology Cirrhosis of liver 10/25/2020 documented as of this encounter (statuses as of 12/19/2022) [facility]04-27-2022 History of Past illness Narrative* Problem Noted Date Resolved Date Hyperkalemia 12/13/2021 12/18/2021 Last Assessment & Plan: Assessment: Improved, K+ is 4.9 on today's labs. Hyperkalemic trends with recent BMPs. PLAN: - Continuous tele monitoring ordered - Daily BMPs Ileus, postoperative 12/13/2021 12/18/2021 Last Assessment & Plan: Assessment: POD3 ventral hernia repair with mesh. Now with bowel function. No nausea, vomiting. PLAN: - D/C NGT. - Advance to [facility] - Continue to get OOB Ventral hernia, recurrent 12/12/20212021 Metabolic acidosis 11/25/2019 10/25/2020 Medication management 05/18/2019 10/19/2019 Hyperkalemia 04/24/2019 10/25/2020 Last Assessment & Plan: K 5.2 at time of discharge, likely elevated in setting of NASIR on CKD Patient also stated that he was eating potatoes with every meal because that was what they were giving him He has had hyperkalemia in the past PLAN: - Switched to renal diet - Educated patient on what foods to avoid - Recheck BMP on Saturday at PCP follow up appointment for monitoring of K Transaminitis 03/25/2019 03/27/2019 Pain in left foot 02/20/2019 10/25/2020 CKD (chronic kidney disease) stage 3, GFR 30-59 ml/min 06/19/2016 10/25/2020 Overview: Seeing Dr. 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 Plan: Continue pantoprazole 40mg qday. Last Assessment & Plan: Assessment: h/o, no longer taking rx SUMMARY 01/13/2013 10/19/2019 Overview: Mr. 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 Mr. Sanon and his describe two normal bowel movements earlier in the day, and 3 episodes of blood in the stool since about 2 PM this afternoon. He describes the first episode as having fresh bright red blood larger in volume than several tablespoons which also mixed into the stool and toilet water. He had another episode earlier this evening, and a third episode upon admission to [facility] which was much less blood and mostly mixed into the stool. He denies hemoptysis, hematemesis, or other site of bleeding. Upon discharge 02/04/13 his hemoglobin was 8.6. In the ED tonight, Hgb is 8.4, Hct 24.4, plt 41. Ascites 01/13/2013 10/19/2019 Overview: Patient denies known history of SBP. Denies current abdominal tenderness, and no large volume ascites with need for paracentesis 02/06/2013. Plan: - ? Diuretics - will D/W nephrology Cirrhosis of liver 10/25/2020 documented as of this encounter (statuses as of 12/31/2022) [facility]04-27-2022 History of Past illness Narrative* Problem Noted Date Resolved Date Hyperkalemia 12/13/2021 12/18/2021 Last Assessment & Plan: Assessment: Improved, K+ is 4.9 on today's labs. Hyperkalemic trends with recent BMPs. PLAN: - Continuous tele monitoring ordered - Daily BMPs Ileus, postoperative 12/13/2021 12/18/2021 Last Assessment & Plan: Assessment: POD3 ventral hernia repair with mesh. Now with bowel function. No nausea, vomiting. PLAN: - D/C NGT. - Advance to [facility] - Continue to get OOB Ventral hernia, recurrent 12/12/20212021 Metabolic acidosis 11/25/2019 10/25/2020 Medication management 05/18/2019 10/19/2019 Hyperkalemia 04/24/2019 10/25/2020 Last Assessment & Plan: K 5.2 at time of discharge, likely elevated in setting of NASIR on CKD Patient also stated that he was eating potatoes with every meal because that was what they were giving him He has had hyperkalemia in the past PLAN: - Switched to renal diet - Educated patient on what foods to avoid - Recheck BMP on Saturday at PCP follow up appointment for monitoring of K Transaminitis 03/25/2019 03/27/2019 Pain in left foot 02/20/2019 10/25/2020 CKD (chronic kidney disease) stage 3, GFR 30-59 ml/min 06/19/2016 10/25/2020 Overview: Seeing Dr. 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 Plan: Continue pantoprazole 40mg qday. Last Assessment & Plan: Assessment: h/o, no longer taking rx SUMMARY 01/13/2013 10/19/2019 Overview: Mr. 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 Mr. Sanon and his describe two normal bowel movements earlier in the day, and 3 episodes of blood in the stool since about 2 PM this afternoon. He describes the first episode as having fresh bright red blood larger in volume than several tablespoons which also mixed into the stool and toilet water. He had another episode earlier this evening, and a third episode upon admission to [facility] which was much less blood and mostly mixed into the stool. He denies hemoptysis, hematemesis, or other site of bleeding. Upon discharge 02/04/13 his hemoglobin was 8.6. In the ED tonight, Hgb is 8.4, Hct 24.4, plt 41. Ascites 01/13/2013 10/19/2019 Overview: Patient denies known history of SBP. Denies current abdominal tenderness, and no large volume ascites with need for paracentesis 02/06/2013. Plan: - ? Diuretics - will D/W nephrology Cirrhosis of liver 10/25/2020 documented as of this encounter (statuses as of 01/01/2023) [facility]04-27-2022 History of Past illness Narrative* Problem Noted Date Resolved Date Hyperkalemia 12/13/2021 12/18/2021 Last Assessment & Plan: Assessment: Improved, K+ is 4.9 on today's labs. Hyperkalemic trends with recent BMPs. PLAN: - Continuous tele monitoring ordered - Daily BMPs Ileus, postoperative 12/13/2021 12/18/2021 Last Assessment & Plan: Assessment: POD3 ventral hernia repair with mesh. Now with bowel function. No nausea, vomiting. PLAN: - D/C NGT. - Advance to [facility] - Continue to get OOB Ventral hernia, recurrent 12/12/20212021 Metabolic acidosis 11/25/2019 10/25/2020 Medication management 05/18/2019 10/19/2019 Hyperkalemia 04/24/2019 10/25/2020 Last Assessment & Plan: K 5.2 at time of discharge, likely elevated in setting of NASIR on CKD Patient also stated that he was eating potatoes with every meal because that was what they were giving him He has had hyperkalemia in the past PLAN: - Switched to renal diet - Educated patient on what foods to avoid - Recheck BMP on Saturday at PCP follow up appointment for monitoring of K Transaminitis 03/25/2019 03/27/2019 Pain in left foot 02/20/2019 10/25/2020 CKD (chronic kidney disease) stage 3, GFR 30-59 ml/min 06/19/2016 10/25/2020 Overview: Seeing Dr. 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 Plan: Continue pantoprazole 40mg qday. Last Assessment & Plan: Assessment: h/o, no longer taking rx SUMMARY 01/13/2013 10/19/2019 Overview: Mr. 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 Mr. Sanon and his describe two normal bowel movements earlier in the day, and 3 episodes of blood in the stool since about 2 PM this afternoon. He describes the first episode as having fresh bright red blood larger in volume than several tablespoons which also mixed into the stool and toilet water. He had another episode earlier this evening, and a third episode upon admission to [facility] which was much less blood and mostly mixed into the stool. He denies hemoptysis, hematemesis, or other site of bleeding. Upon discharge 02/04/13 his hemoglobin was 8.6. In the ED tonight, Hgb is 8.4, Hct 24.4, plt 41. Ascites 01/13/2013 10/19/2019 Overview: Patient denies known history of SBP. Denies current abdominal tenderness, and no large volume ascites with need for paracentesis 02/06/2013. Plan: - ? Diuretics - will D/W nephrology Cirrhosis of liver 10/25/2020 documented as of this encounter (statuses as of 02/15/2023) [facility]04-27-2022 History of Past illness Narrative* Problem Noted Date Diagnosed Date Resolved Date Hyperkalemia 12/13/2021 12/18/2021 Last Assessment & Plan: Assessment: Improved, K+ is 4.9 on today's labs. Hyperkalemic trends with recent BMPs. PLAN: - Continuous tele monitoring ordered - Daily BMPs Ileus, postoperative 12/13/2021 022 Last Assessment & Plan: Assessment: POD3 ventral hernia repair with mesh. Now with bowel function. No nausea, vomiting. PLAN: - D/C NGT. - Advance to [facility] - Continue to get OOB Ventral hernia, recurrent 12/12/2021 Metabolic acidosis 11/25/2019 Medication management 05/18/20192019 Hyperkalemia 04/24/2019 10/25/2020 Last Assessment & Plan: K 5.2 at time of discharge, likely elevated in setting of NASIR on CKD Patient also stated that he was eating potatoes with every meal because that was what they were giving him He has had hyperkalemia in the past PLAN: - Switched to renal diet - Educated patient on what foods to avoid - Recheck BMP on Saturday at PCP follow up appointment for monitoring of K Transaminitis 03/25/2019 03/27/2019 Pain in left foot 02/20/2019 10/25/2020 CKD (chronic kidney disease) stage 3, GFR 30-59 ml/min 06/19/2016 10/25/2020 Overview: Seeing Dr. 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 Plan: Continue pantoprazole 40mg qday. Last Assessment & Plan: Assessment: h/o, no longer taking rx SUMMARY 01/13/2013 10/19/2019 Overview: Mr. 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 Mr. Sanon and his describe two normal bowel movements earlier in the day, and 3 episodes of blood in the stool since about 2 PM this afternoon. He describes the first episode as having fresh bright red blood larger in volume than several tablespoons which also mixed into the stool and toilet water. He had another episode earlier this evening, and a third episode upon admission to [facility] which was much less blood and mostly mixed into the stool. He denies hemoptysis, hematemesis, or other site of bleeding. Upon discharge 02/04/13 his hemoglobin was 8.6. In the ED tonight, Hgb is 8.4, Hct 24.4, plt 41. Ascites 01/13/2013 10/19/2019 Overview: Patient denies known history of SBP. Denies current abdominal tenderness, and no large volume ascites with need for paracentesis 02/06/2013. Plan: - ? Diuretics - will D/W nephrology Cirrhosis of liver 1 documented as of this encounter (statuses as of 02/25/2023) [facility]04-27-2022 History of Past illness Narrative* Problem Noted Date Diagnosed Date Resolved Date Hyperkalemia 12/13/2021 12/18/2021 Last Assessment & Plan: Assessment: Improved, K+ is 4.9 on today's labs. Hyperkalemic trends with recent BMPs. PLAN: - Continuous tele monitoring ordered - Daily BMPs Ileus, postoperative 12/13/2021 022 Last Assessment & Plan: Assessment: POD3 ventral hernia repair with mesh. Now with bowel function. No nausea, vomiting. PLAN: - D/C NGT. - Advance to [facility] - Continue to get OOB Ventral hernia, recurrent 12/12/2021 Metabolic acidosis 11/25/2019 1 Medication management 05/18/20192019 Hyperkalemia 04/24/2019 10/25/2020 Last Assessment & Plan: K 5.2 at time of discharge, likely elevated in setting of NASIR on CKD Patient also stated that he was eating potatoes with every meal because that was what they were giving him He has had hyperkalemia in the past PLAN: - Switched to renal diet - Educated patient on what foods to avoid - Recheck BMP on Saturday at PCP follow up appointment for monitoring of K Transaminitis 03/25/2019 03/27/2019 Pain in left foot 02/20/2019 10/25/2020 CKD (chronic kidney disease) stage 3, GFR 30-59 ml/min 06/19/2016 10/25/2020 Overview: Seeing Dr. 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 Plan: Continue pantoprazole 40mg qday. Last Assessment & Plan: Assessment: h/o, no longer taking rx SUMMARY 01/13/2013 10/19/2019 Overview: Mr. 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 Mr. Sanon and his describe two normal bowel movements earlier in the day, and 3 episodes of blood in the stool since about 2 PM this afternoon. He describes the first episode as having fresh bright red blood larger in volume than several tablespoons which also mixed into the stool and toilet water. He had another episode earlier this evening, and a third episode upon admission to [facility] which was much less blood and mostly mixed into the stool. He denies hemoptysis, hematemesis, or other site of bleeding. Upon discharge 02/04/13 his hemoglobin was 8.6. In the ED tonight, Hgb is 8.4, Hct 24.4, plt 41. Ascites 01/13/2013 10/19/2019 Overview: Patient denies known history of SBP. Denies current abdominal tenderness, and no large volume ascites with need for paracentesis 02/06/2013. Plan: - ? Diuretics - will D/W nephrology Cirrhosis of liver 1 documented as of this encounter (statuses as of 03/19/2023) [facility]04-27-2022 History of Past illness Narrative* Problem Noted Date Diagnosed Date Resolved Date Hyperkalemia 12/13/2021 12/18/2021 Last Assessment & Plan: Assessment: Improved, K+ is 4.9 on today's labs. Hyperkalemic trends with recent BMPs. PLAN: - Continuous tele monitoring ordered - Daily BMPs Ileus, postoperative 12/13/2021 022 Last Assessment & Plan: Assessment: POD3 ventral hernia repair with mesh. Now with bowel function. No nausea, vomiting. PLAN: - D/C NGT. - Advance to [facility] - Continue to get OOB Ventral hernia, recurrent 12/12/2021 Metabolic acidosis 11/25/2019 1 Medication management 05/18/20192019 Hyperkalemia 04/24/2019 10/25/2020 Last Assessment & Plan: K 5.2 at time of discharge, likely elevated in setting of NASIR on CKD Patient also stated that he was eating potatoes with every meal because that was what they were giving him He has had hyperkalemia in the past PLAN: - Switched to renal diet - Educated patient on what foods to avoid - Recheck BMP on Saturday at PCP follow up appointment for monitoring of K Transaminitis 03/25/2019 03/27/2019 Pain in left foot 02/20/2019 10/25/2020 CKD (chronic kidney disease) stage 3, GFR 30-59 ml/min 06/19/2016 10/25/2020 Overview: Seeing Dr. Vipul Perez [facility] Prostate cancer screening 02/22/2016 Well adult exam 05/18/2014 10/19/2019 Overview: last done 08/24/2016 Thrombocytopenia 05/18/2014 10/19/2019 Last Assessment & Plan: Assessment: Platelet low since February 2019 per [facility] documentation No bleeding PLT 132-->106-->119-->114-->107-->124-->116-->110-->132 Plan: - Monitor Pl - Platelets stable and 132 at time of discharge Need for prophylactic immunotherapy 04/07/2014 10/19/2019 Liver transplanted 04/07/2014 1 Duodenal ulcer 02/06/2013 10/25/2020 Overview: Duodenal ulcers seen on EGD 01/31/13. Plan: Continue pantoprazole 40mg qday. Last Assessment & Plan: Assessment: h/o, no longer taking rx SUMMARY 01/13/2013 10/19/2019 Overview: Mr. 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 Mr. Sanon and his describe two normal bowel movements earlier in the day, and 3 episodes of blood in the stool since about 2 PM this afternoon. He describes the first episode as having fresh bright red blood larger in volume than several tablespoons which also mixed into the stool and toilet water. He had another episode earlier this evening, and a third episode upon admission to [facility] which was much less blood and mostly mixed into the stool. He denies hemoptysis, hematemesis, or other site of bleeding. Upon discharge 02/04/13 his hemoglobin was 8.6. In the ED tonight, Hgb is 8.4, Hct 24.4, plt 41. Ascites 01/13/2013 10/19/2019 Overview: Patient denies known history of SBP. Denies current abdominal tenderness, and no large volume ascites with need for paracentesis 02/06/2013. Plan: - ? Diuretics - will D/W nephrology Cirrhosis of liver 1 documented as of this encounter (statuses as of 04/12/2023) [facility]04-27-2022 History of Past illness Narrative* Problem Noted Date Diagnosed Date Resolved Date Hyperkalemia 12/13/2021 12/18/2021 Last Assessment & Plan: Assessment: Improved, K+ is 4.9 on today's labs. Hyperkalemic trends with recent BMPs. PLAN: - Continuous tele monitoring ordered - Daily BMPs Ileus, postoperative 12/13/2021 022 Last Assessment & Plan: Assessment: POD3 ventral hernia repair with mesh. Now with bowel function. No nausea, vomiting. PLAN: - D/C NGT. - Advance to [facility] - Continue to get OOB Ventral hernia, recurrent 12/12/2021 Metabolic acidosis 11/25/2019 Medication management 05/18/20192019 Hyperkalemia 04/24/2019 10/25/2020 Last Assessment & Plan: K 5.2 at time of discharge, likely elevated in setting of NASIR on CKD Patient also stated that he was eating potatoes with every meal because that was what they were giving him He has had hyperkalemia in the past PLAN: - Switched to renal diet - Educated patient on what foods to avoid - Recheck BMP on Saturday at PCP follow up appointment for monitoring of K Transaminitis 03/25/2019 03/27/2019 Pain in left foot 02/20/2019 10/25/2020 CKD (chronic kidney disease) stage 3, GFR 30-59 ml/min 06/19/2016 10/25/2020 Overview: Seeing Dr. 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 Plan: Continue pantoprazole 40mg qday. Last Assessment & Plan: Assessment: h/o, no longer taking rx SUMMARY 01/13/2013 10/19/2019 Overview: Mr. 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 Mr. Sanon and his describe two normal bowel movements earlier in the day, and 3 episodes of blood in the stool since about 2 PM this afternoon. He describes the first episode as having fresh bright red blood larger in volume than several tablespoons which also mixed into the stool and toilet water. He had another episode earlier this evening, and a third episode upon admission to [facility] which was much less blood and mostly mixed into the stool. He denies hemoptysis, hematemesis, or other site of bleeding. Upon discharge 02/04/13 his hemoglobin was 8.6. In the ED tonight, Hgb is 8.4, Hct 24.4, plt 41. Ascites 01/13/2013 10/19/2019 Overview: Patient denies known history of SBP. Denies current abdominal tenderness, and no large volume ascites with need for paracentesis 02/06/2013. Plan: - ? Diuretics - will D/W nephrology Cirrhosis of liver 1 documented as of this encounter (statuses as of 04/18/2023) [facility]04-27-2022 History of Past illness Narrative* Problem Noted Date Diagnosed Date Resolved Date Hyperkalemia 12/13/2021 12/18/2021 Last Assessment & Plan: Assessment: Improved, K+ is 4.9 on today's labs. Hyperkalemic trends with recent BMPs. PLAN: - Continuous tele monitoring ordered - Daily BMPs Ileus, postoperative 12/13/2021 022 Last Assessment & Plan: Assessment: POD3 ventral hernia repair with mesh. Now with bowel function. No nausea, vomiting. PLAN: - D/C NGT. - Advance to [facility] - Continue to get OOB Ventral hernia, recurrent 12/12/2021 Metabolic acidosis 11/25/2019 Medication management 05/18/20192019 Hyperkalemia 04/24/2019 10/25/2020 Last Assessment & Plan: K 5.2 at time of discharge, likely elevated in setting of NASIR on CKD Patient also stated that he was eating potatoes with every meal because that was what they were giving him He has had hyperkalemia in the past PLAN: - Switched to renal diet - Educated patient on what foods to avoid - Recheck BMP on Saturday at PCP follow up appointment for monitoring of K Transaminitis 03/25/2019 03/27/2019 Pain in left foot 02/20/2019 10/25/2020 CKD (chronic kidney disease) stage 3, GFR 30-59 ml/min 06/19/2016 10/25/2020 Overview: Seeing Dr. 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 Plan: Continue pantoprazole 40mg qday. Last Assessment & Plan: Assessment: h/o, no longer taking rx SUMMARY 01/13/2013 10/19/2019 Overview: Mr. 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 Mr. Sanon and his describe two normal bowel movements earlier in the day, and 3 episodes of blood in the stool since about 2 PM this afternoon. He describes the first episode as having fresh bright red blood larger in volume than several tablespoons which also mixed into the stool and toilet water. He had another episode earlier this evening, and a third episode upon admission to [facility] which was much less blood and mostly mixed into the stool. He denies hemoptysis, hematemesis, or other site of bleeding. Upon discharge 02/04/13 his hemoglobin was 8.6. In the ED tonight, Hgb is 8.4, Hct 24.4, plt 41. Ascites 01/13/2013 10/19/2019 Overview: Patient denies known history of SBP. Denies current abdominal tenderness, and no large volume ascites with need for paracentesis 02/06/2013. Plan: - ? Diuretics - will D/W nephrology Cirrhosis of liver 1 documented as of this encounter (statuses as of 04/23/2023) [facility]04-27-20[facility] History of Past illness Narrative* Problem Noted Date Diagnosed Date Resolved Date Hyperkalemia 12/13/2021 12/18/2021 Last Assessment & Plan: Assessment: Improved, K+ is 4.9 on today's labs. Hyperkalemic trends with recent BMPs. PLAN: - Continuous tele monitoring ordered - Daily BMPs Ileus, postoperative 12/13/2021 022 Last Assessment & Plan: Assessment: POD3 ventral hernia repair with mesh. Now with bowel function. No nausea, vomiting. PLAN: - D/C NGT. - Advance to [facility] - Continue to get OOB Ventral hernia, recurrent 12/12/2021 Metabolic acidosis 11/25/2019 1 Medication management 05/18/20192019 Hyperkalemia 04/24/2019 10/25/2020 Last Assessment & Plan: K 5.2 at time of discharge, likely elevated in setting of NASIR on CKD Patient also stated that he was eating potatoes with every meal because that was what they were giving him He has had hyperkalemia in the past PLAN: - Switched to renal diet - Educated patient on what foods to avoid - Recheck BMP on Saturday at PCP follow up appointment for monitoring of K Transaminitis 03/25/2019 03/27/2019 Pain in left foot 02/20/2019 10/25/2020 CKD (chronic kidney disease) stage 3, GFR 30-59 ml/min 06/19/2016 10/25/2020 Overview: Seeing Dr. 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 Plan: Continue pantoprazole 40mg qday. Last Assessment & Plan: Assessment: h/o, no longer taking rx SUMMARY 01/13/2013 10/19/2019 Overview: Mr. 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 Mr. Sanon and his describe two normal bowel movements earlier in the day, and 3 episodes of blood in the stool since about 2 PM this afternoon. He describes the first episode as having fresh bright red blood larger in volume than several tablespoons which also mixed into the stool and toilet water. He had another episode earlier this evening, and a third episode upon admission to [facility] which was much less blood and mostly mixed into the stool. He denies hemoptysis, hematemesis, or other site of bleeding. Upon discharge 02/04/13 his hemoglobin was 8.6. In the ED tonight, Hgb is 8.4, Hct 24.4, plt 41. Ascites 01/13/2013 10/19/2019 Overview: Patient denies known history of SBP. Denies current abdominal tenderness, and no large volume ascites with need for paracentesis 02/06/2013. Plan: - ? Diuretics - will D/W nephrology Cirrhosis of liver 1 documented as of this encounter (statuses as of 04/26/2023) [facility]04-27-2022 History of Past illness Narrative* Problem Noted Date Diagnosed Date Resolved Date Hyperkalemia 12/13/2021 12/18/2021 Last Assessment & Plan: Assessment: Improved, K+ is 4.9 on today's labs. Hyperkalemic trends with recent BMPs. PLAN: - Continuous tele monitoring ordered - Daily BMPs Ileus, postoperative 12/13/2021 022 Last Assessment & Plan: Assessment: POD3 ventral hernia repair with mesh. Now with bowel function. No nausea, vomiting. PLAN: - D/C NGT. - Advance to [facility] - Continue to get OOB Ventral hernia, recurrent 12/12/2021 Metabolic acidosis 11/25/2019 1 Medication management 05/18/20192019 Hyperkalemia 04/24/2019 10/25/2020 Last Assessment & Plan: K 5.2 at time of discharge, likely elevated in setting of NASIR on CKD Patient also stated that he was eating potatoes with every meal because that was what they were giving him He has had hyperkalemia in the past PLAN: - Switched to renal diet - Educated patient on what foods to avoid - Recheck BMP on Saturday at PCP follow up appointment for monitoring of K Transaminitis 03/25/2019 03/27/2019 Pain in left foot 02/20/2019 10/25/2020 CKD (chronic kidney disease) stage 3, GFR 30-59 ml/min 06/19/2016 10/25/2020 Overview: Seeing Dr. 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 Plan: Continue pantoprazole 40mg qday. Last Assessment & Plan: Assessment: h/o, no longer taking rx SUMMARY 01/13/2013 10/19/2019 Overview: Mr. 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 Mr. Sanon and his describe two normal bowel movements earlier in the day, and 3 episodes of blood in the stool since about 2 PM this afternoon. He describes the first episode as having fresh bright red blood larger in volume than several tablespoons which also mixed into the stool and toilet water. He had another episode earlier this evening, and a third episode upon admission to [facility] which was much less blood and mostly mixed into the stool. He denies hemoptysis, hematemesis, or other site of bleeding. Upon discharge 02/04/13 his hemoglobin was 8.6. In the ED tonight, Hgb is 8.4, Hct 24.4, plt 41. Ascites 01/13/2013 10/19/2019 Overview: Patient denies known history of SBP. Denies current abdominal tenderness, and no large volume ascites with need for paracentesis 02/06/2013. Plan: - ? Diuretics - will D/W nephrology Cirrhosis of liver documented as of this encounter (statuses as of 04/26/2023) [facility]04-27-2022 History of Past illness Narrative* Problem Noted Date Diagnosed Date Resolved Date Hyperkalemia 12/13/2021 12/18/2021 Last Assessment & Plan: Assessment: Improved, K+ is 4.9 on today's labs. Hyperkalemic trends with recent BMPs. PLAN: - Continuous tele monitoring ordered - Daily BMPs Ileus, postoperative 12/13/2021 022 Last Assessment & Plan: Assessment: POD3 ventral hernia repair with mesh. Now with bowel function. No nausea, vomiting. PLAN: - D/C NGT. - Advance to [facility] - Continue to get OOB Ventral hernia, recurrent 12/12/2021 Metabolic acidosis 11/25/2019 1 Medication management 05/18/20192019 Hyperkalemia 04/24/2019 10/25/2020 Last Assessment & Plan: K 5.2 at time of discharge, likely elevated in setting of NASIR on CKD Patient also stated that he was eating potatoes with every meal because that was what they were giving him He has had hyperkalemia in the past PLAN: - Switched to renal diet - Educated patient on what foods to avoid - Recheck BMP on Saturday at PCP follow up appointment for monitoring of K Transaminitis 03/25/2019 03/27/2019 Pain in left foot 02/20/2019 10/25/2020 CKD (chronic kidney disease) stage 3, GFR 30-59 ml/min 06/19/2016 10/25/2020 Overview: Seeing Dr. 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 Plan: Continue pantoprazole 40mg qday. Last Assessment & Plan: Assessment: h/o, no longer taking rx SUMMARY 01/13/2013 10/19/2019 Overview: Mr. 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 Mr. Sanon and his describe two normal bowel movements earlier in the day, and 3 episodes of blood in the stool since about 2 PM this afternoon. He describes the first episode as having fresh bright red blood larger in volume than several tablespoons which also mixed into the stool and toilet water. He had another episode earlier this evening, and a third episode upon admission to [facility] which was much less blood and mostly mixed into the stool. He denies hemoptysis, hematemesis, or other site of bleeding. Upon discharge 02/04/13 his hemoglobin was 8.6. In the ED tonight, Hgb is 8.4, Hct 24.4, plt 41. Ascites 01/13/2013 10/19/2019 Overview: Patient denies known history of SBP. Denies current abdominal tenderness, and no large volume ascites with need for paracentesis 02/06/2013. Plan: - ? Diuretics - will D/W nephrology Cirrhosis of liver 1 documented as of this encounter (statuses as of 05/03/2023) [facility]04-27-2022 History of Past illness Narrative* Problem Noted Date Diagnosed Date Resolved Date Hyperkalemia 12/13/2021 12/18/2021 Last Assessment & Plan: Assessment: Improved, K+ is 4.9 on today's labs. Hyperkalemic trends with recent BMPs. PLAN: - Continuous tele monitoring ordered - Daily BMPs Ileus, postoperative 12/13/2021 022 Last Assessment & Plan: Assessment: POD3 ventral hernia repair with mesh. Now with bowel function. No nausea, vomiting. PLAN: - D/C NGT. - Advance to [facility] - Continue to get OOB Ventral hernia, recurrent 12/12/2021 Metabolic acidosis 11/25/2019 1 Medication management 05/18/20192019 Hyperkalemia 04/24/2019 10/25/2020 Last Assessment & Plan: K 5.2 at time of discharge, likely elevated in setting of NASIR on CKD Patient also stated that he was eating potatoes with every meal because that was what they were giving him He has had hyperkalemia in the past PLAN: - Switched to renal diet - Educated patient on what foods to avoid - Recheck BMP on Saturday at PCP follow up appointment for monitoring of K Transaminitis 03/25/2019 03/27/2019 Pain in left foot 02/20/2019 10/25/2020 CKD (chronic kidney disease) stage 3, GFR 30-59 ml/min 06/19/2016 10/25/2020 Overview: Seeing Dr. 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 Plan: Continue pantoprazole 40mg qday. Last Assessment & Plan: Assessment: h/o, no longer taking rx SUMMARY 01/13/2013 10/19/2019 Overview: Mr. 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 Mr. Sanon and his describe two normal bowel movements earlier in the day, and 3 episodes of blood in the stool since about 2 PM this afternoon. He describes the first episode as having fresh bright red blood larger in volume than several tablespoons which also mixed into the stool and toilet water. He had another episode earlier this evening, and a third episode upon admission to [facility] which was much less blood and mostly mixed into the stool. He denies hemoptysis, hematemesis, or other site of bleeding. Upon discharge 02/04/13 his hemoglobin was 8.6. In the ED tonight, Hgb is 8.4, Hct 24.4, plt 41. Ascites 01/13/2013 10/19/2019 Overview: Patient denies known history of SBP. Denies current abdominal tenderness, and no large volume ascites with need for paracentesis 02/06/2013. Plan: - ? Diuretics - will D/W nephrology Cirrhosis of liver 1 documented as of this encounter (statuses as of 05/04/2023) [facility]04-27-2022 History of Past illness Narrative* Problem Noted Date Diagnosed Date Resolved Date Hyperkalemia 12/13/2021 12/18/2021 Last Assessment & Plan: Assessment: Improved, K+ is 4.9 on today's labs. Hyperkalemic trends with recent BMPs. PLAN: - Continuous tele monitoring ordered - Daily BMPs Ileus, postoperative 12/13/2021 022 Last Assessment & Plan: Assessment: POD3 ventral hernia repair with mesh. Now with bowel function. No nausea, vomiting. PLAN: - D/C NGT. - Advance to [facility] - Continue to get OOB Ventral hernia, recurrent 12/12/2021 Metabolic acidosis 11/25/2019 1 Medication management 05/18/20192019 Hyperkalemia 04/24/2019 10/25/2020 Last Assessment & Plan: K 5.2 at time of discharge, likely elevated in setting of NASIR on CKD Patient also stated that he was eating potatoes with every meal because that was what they were giving him He has had hyperkalemia in the past PLAN: - Switched to renal diet - Educated patient on what foods to avoid - Recheck BMP on Saturday at PCP follow up appointment for monitoring of K Transaminitis 03/25/2019 03/27/2019 Pain in left foot 02/20/2019 10/25/2020 CKD (chronic kidney disease) stage 3, GFR 30-59 ml/min 06/19/2016 10/25/2020 Overview: Seeing Dr. 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 Plan: Continue pantoprazole 40mg qday. Last Assessment & Plan: Assessment: h/o, no longer taking rx SUMMARY 01/13/2013 10/19/2019 Overview: Mr. 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 Mr. Sanon and his describe two normal bowel movements earlier in the day, and 3 episodes of blood in the stool since about 2 PM this afternoon. He describes the first episode as having fresh bright red blood larger in volume than several tablespoons which also mixed into the stool and toilet water. He had another episode earlier this evening, and a third episode upon admission to [facility] which was much less blood and mostly mixed into the stool. He denies hemoptysis, hematemesis, or other site of bleeding. Upon discharge 02/04/13 his hemoglobin was 8.6. In the ED tonight, Hgb is 8.4, Hct 24.4, plt 41. Ascites 01/13/2013 10/19/2019 Overview: Patient denies known history of SBP. Denies current abdominal tenderness, and no large volume ascites with need for paracentesis 02/06/2013. Plan: - ? Diuretics - will D/W nephrology Cirrhosis of liver 1 documented as of this encounter (statuses as of 05/10/2023) [facility]04-27-2022 History of Past illness Narrative* Problem Noted Date Diagnosed Date Resolved Date Hyperkalemia 12/13/2021 12/18/2021 Last Assessment & Plan: Assessment: Improved, K+ is 4.9 on today's labs. Hyperkalemic trends with recent BMPs. PLAN: - Continuous tele monitoring ordered - Daily BMPs Ileus, postoperative 12/13/2021 022 Last Assessment & Plan: Assessment: POD3 ventral hernia repair with mesh. Now with bowel function. No nausea, vomiting. PLAN: - D/C NGT. - Advance to [facility] - Continue to get OOB Ventral hernia, recurrent 12/12/2021 Metabolic acidosis 11/25/2019 1 Medication management 05/18/20192019 Hyperkalemia 04/24/2019 10/25/2020 Last Assessment & Plan: K 5.2 at time of discharge, likely elevated in setting of NASIR on CKD Patient also stated that he was eating potatoes with every meal because that was what they were giving him He has had hyperkalemia in the past PLAN: - Switched to renal diet - Educated patient on what foods to avoid - Recheck BMP on Saturday at PCP follow up appointment for monitoring of K Transaminitis 03/25/2019 03/27/2019 Pain in left foot 02/20/2019 10/25/2020 CKD (chronic kidney disease) stage 3, GFR 30-59 ml/min 06/19/2016 10/25/2020 Overview: Seeing Dr. 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 Plan: Continue pantoprazole 40mg qday. Last Assessment & Plan: Assessment: h/o, no longer taking rx SUMMARY 01/13/2013 10/19/2019 Overview: Mr. 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 Mr. Sanon and his describe two normal bowel movements earlier in the day, and 3 episodes of blood in the stool since about 2 PM this afternoon. He describes the first episode as having fresh bright red blood larger in volume than several tablespoons which also mixed into the stool and toilet water. He had another episode earlier this evening, and a third episode upon admission to [facility] which was much less blood and mostly mixed into the stool. He denies hemoptysis, hematemesis, or other site of bleeding. Upon discharge 02/04/13 his hemoglobin was 8.6. In the ED tonight, Hgb is 8.4, Hct 24.4, plt 41. Ascites 01/13/2013 10/19/2019 Overview: Patient denies known history of SBP. Denies current abdominal tenderness, and no large volume ascites with need for paracentesis 02/06/2013. Plan: - ? Diuretics - will D/W nephrology Cirrhosis of liver 1 documented as of this encounter (statuses as of 05/10/2023) [facility]04-27-2022 History of Past illness Narrative* Problem Noted Date Diagnosed Date Resolved Date Hyperkalemia 12/13/2021 12/18/2021 Last Assessment & Plan: Assessment: Improved, K+ is 4.9 on today's labs. Hyperkalemic trends with recent BMPs. PLAN: - Continuous tele monitoring ordered - Daily BMPs Ileus, postoperative 12/13/2021 022 Last Assessment & Plan: Assessment: POD3 ventral hernia repair with mesh. Now with bowel function. No nausea, vomiting. PLAN: - D/C NGT. - Advance to [facility] - Continue to get OOB Ventral hernia, recurrent 12/12/2021 Metabolic acidosis 11/25/2019 1 Medication management 05/18/20192019 Hyperkalemia 04/24/2019 10/25/2020 Last Assessment & Plan: K 5.2 at time of discharge, likely elevated in setting of NASIR on CKD Patient also stated that he was eating potatoes with every meal because that was what they were giving him He has had hyperkalemia in the past PLAN: - Switched to renal diet - Educated patient on what foods to avoid - Recheck BMP on Saturday at PCP follow up appointment for monitoring of K Transaminitis 03/25/2019 03/27/2019 Pain in left foot 02/20/2019 10/25/2020 CKD (chronic kidney disease) stage 3, GFR 30-59 ml/min 06/19/2016 10/25/2020 Overview: Seeing Dr. 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 Plan: Continue pantoprazole 40mg qday. Last Assessment & Plan: Assessment: h/o, no longer taking rx SUMMARY 01/13/2013 10/19/2019 Overview: Mr. 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 Mr. Sanon and his describe two normal bowel movements earlier in the day, and 3 episodes of blood in the stool since about 2 PM this afternoon. He describes the first episode as having fresh bright red blood larger in volume than several tablespoons which also mixed into the stool and toilet water. He had another episode earlier this evening, and a third episode upon admission to [facility] which was much less blood and mostly mixed into the stool. He denies hemoptysis, hematemesis, or other site of bleeding. Upon discharge 02/04/13 his hemoglobin was 8.6. In the ED tonight, Hgb is 8.4, Hct 24.4, plt 41. Ascites 01/13/2013 10/19/2019 Overview: Patient denies known history of SBP. Denies current abdominal tenderness, and no large volume ascites with need for paracentesis 02/06/2013. Plan: - ? Diuretics - will D/W nephrology Cirrhosis of liver 1 documented as of this encounter (statuses as of 05/11/2023) [facility]04-27-2022 History of Past illness Narrative* Problem Noted Date Diagnosed Date Resolved Date Hyperkalemia 12/13/2021 12/18/2021 Last Assessment & Plan: Assessment: Improved, K+ is 4.9 on today's labs. Hyperkalemic trends with recent BMPs. PLAN: - Continuous tele monitoring ordered - Daily BMPs Ileus, postoperative 12/13/2021 022 Last Assessment & Plan: Assessment: POD3 ventral hernia repair with mesh. Now with bowel function. No nausea, vomiting. PLAN: - D/C NGT. - Advance to [facility] - Continue to get OOB Ventral hernia, recurrent 12/12/2021 Metabolic acidosis 11/25/2019 1 Medication management 05/18/20192019 Hyperkalemia 04/24/2019 10/25/2020 Last Assessment & Plan: K 5.2 at time of discharge, likely elevated in setting of NASIR on CKD Patient also stated that he was eating potatoes with every meal because that was what they were giving him He has had hyperkalemia in the past PLAN: - Switched to renal diet - Educated patient on what foods to avoid - Recheck BMP on Saturday at PCP follow up appointment for monitoring of K Transaminitis 03/25/2019 03/27/2019 Pain in left foot 02/20/2019 10/25/2020 CKD (chronic kidney disease) stage 3, GFR 30-59 ml/min 06/19/2016 10/25/2020 Overview: Seeing Dr. 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 Plan: Continue pantoprazole 40mg qday. Last Assessment & Plan: Assessment: h/o, no longer taking rx SUMMARY 01/13/2013 10/19/2019 Overview: Mr. 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 Mr. Sanon and his describe two normal bowel movements earlier in the day, and 3 episodes of blood in the stool since about 2 PM this afternoon. He describes the first episode as having fresh bright red blood larger in volume than several tablespoons which also mixed into the stool and toilet water. He had another episode earlier this evening, and a third episode upon admission to [facility] which was much less blood and mostly mixed into the stool. He denies hemoptysis, hematemesis, or other site of bleeding. Upon discharge 02/04/13 his hemoglobin was 8.6. In the ED tonight, Hgb is 8.4, Hct 24.4, plt 41. Ascites 01/13/2013 10/19/2019 Overview: Patient denies known history of SBP. Denies current abdominal tenderness, and no large volume ascites with need for paracentesis 02/06/2013. Plan: - ? Diuretics - will D/W nephrology Cirrhosis of liver 1 documented as of this encounter (statuses as of 05/13/2023) [facility]04-27-20[facility] History of Past illness Narrative* Problem Noted Date Diagnosed Date Resolved Date Hyperkalemia 12/13/2021 12/18/2021 Last Assessment & Plan: Assessment: Improved, K+ is 4.9 on today's labs. Hyperkalemic trends with recent BMPs. PLAN: - Continuous tele monitoring ordered - Daily BMPs Ileus, postoperative 12/13/2021 022 Last Assessment & Plan: Assessment: POD3 ventral hernia repair with mesh. Now with bowel function. No nausea, vomiting. PLAN: - D/C NGT. - Advance to [facility] - Continue to get OOB Ventral hernia, recurrent 12/12/2021 Metabolic acidosis 11/25/2019 1 Medication management 05/18/20192019 Hyperkalemia 04/24/2019 10/25/2020 Last Assessment & Plan: K 5.2 at time of discharge, likely elevated in setting of NASIR on CKD Patient also stated that he was eating potatoes with every meal because that was what they were giving him He has had hyperkalemia in the past PLAN: - Switched to renal diet - Educated patient on what foods to avoid - Recheck BMP on Saturday at PCP follow up appointment for monitoring of K Transaminitis 03/25/2019 03/27/2019 Pain in left foot 02/20/2019 10/25/2020 CKD (chronic kidney disease) stage 3, GFR 30-59 ml/min 06/19/2016 10/25/2020 Overview: Seeing Dr. 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 Plan: Continue pantoprazole 40mg qday. Last Assessment & Plan: Assessment: h/o, no longer taking rx SUMMARY 01/13/2013 10/19/2019 Overview: Mr. 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 Mr. Sanon and his describe two normal bowel movements earlier in the day, and 3 episodes of blood in the stool since about 2 PM this afternoon. He describes the first episode as having fresh bright red blood larger in volume than several tablespoons which also mixed into the stool and toilet water. He had another episode earlier this evening, and a third episode upon admission to [facility] which was much less blood and mostly mixed into the stool. He denies hemoptysis, hematemesis, or other site of bleeding. Upon discharge 02/04/13 his hemoglobin was 8.6. In the ED tonight, Hgb is 8.4, Hct 24.4, plt 41. Ascites 01/13/2013 10/19/2019 Overview: Patient denies known history of SBP. Denies current abdominal tenderness, and no large volume ascites with need for paracentesis 02/06/2013. Plan: - ? Diuretics - will D/W nephrology Cirrhosis of liver 1 documented as of this encounter (statuses as of 05/13/2023) [facility]04-27-2022 History of Past illness Narrative* Problem Noted Date Diagnosed Date Resolved Date Hyperkalemia 12/13/2021 12/18/2021 Last Assessment & Plan: Assessment: Improved, K+ is 4.9 on today's labs. Hyperkalemic trends with recent BMPs. PLAN: - Continuous tele monitoring ordered - Daily BMPs Ileus, postoperative 12/13/2021 022 Last Assessment & Plan: Assessment: POD3 ventral hernia repair with mesh. Now with bowel function. No nausea, vomiting. PLAN: - D/C NGT. - Advance to [facility] - Continue to get OOB Ventral hernia, recurrent 12/12/2021 Metabolic acidosis 11/25/2019 Medication management 05/18/20192019 Hyperkalemia 04/24/2019 10/25/2020 Last Assessment & Plan: K 5.2 at time of discharge, likely elevated in setting of NASIR on CKD Patient also stated that he was eating potatoes with every meal because that was what they were giving him He has had hyperkalemia in the past PLAN: - Switched to renal diet - Educated patient on what foods to avoid - Recheck BMP on Saturday at PCP follow up appointment for monitoring of K Transaminitis 03/25/2019 03/27/2019 Pain in left foot 02/20/2019 10/25/2020 CKD (chronic kidney disease) stage 3, GFR 30-59 ml/min 06/19/2016 10/25/2020 Overview: Seeing Dr. 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 Plan: Continue pantoprazole 40mg qday. Last Assessment & Plan: Assessment: h/o, no longer taking rx SUMMARY 01/13/2013 10/19/2019 Overview: Mr. 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 Mr. Sanon and his describe two normal bowel movements earlier in the day, and 3 episodes of blood in the stool since about 2 PM this afternoon. He describes the first episode as having fresh bright red blood larger in volume than several tablespoons which also mixed into the stool and toilet water. He had another episode earlier this evening, and a third episode upon admission to [facility] which was much less blood and mostly mixed into the stool. He denies hemoptysis, hematemesis, or other site of bleeding. Upon discharge 02/04/13 his hemoglobin was 8.6. In the ED tonight, Hgb is 8.4, Hct 24.4, plt 41. Ascites 01/13/2013 10/19/2019 Overview: Patient denies known history of SBP. Denies current abdominal tenderness, and no large volume ascites with need for paracentesis 02/06/2013. Plan: - ? Diuretics - will D/W nephrology Cirrhosis of liver documented as of this encounter (statuses as of 05/14/2023) [facility]04-27-2022 History of Past illness Narrative* Problem Noted Date Diagnosed Date Resolved Date Hyperkalemia 12/13/2021 12/18/2021 Last Assessment & Plan: Assessment: Improved, K+ is 4.9 on today's labs. Hyperkalemic trends with recent BMPs. PLAN: - Continuous tele monitoring ordered - Daily BMPs Ileus, postoperative 12/13/2021 022 Last Assessment & Plan: Assessment: POD3 ventral hernia repair with mesh. Now with bowel function. No nausea, vomiting. PLAN: - D/C NGT. - Advance to [facility] - Continue to get OOB Ventral hernia, recurrent 12/12/2021 Metabolic acidosis 11/25/2019 Medication management 05/18/20192019 Hyperkalemia 04/24/2019 10/25/2020 Last Assessment & Plan: K 5.2 at time of discharge, likely elevated in setting of NASIR on CKD Patient also stated that he was eating potatoes with every meal because that was what they were giving him He has had hyperkalemia in the past PLAN: - Switched to renal diet - Educated patient on what foods to avoid - Recheck BMP on Saturday at PCP follow up appointment for monitoring of K Transaminitis 03/25/2019 03/27/2019 Pain in left foot 02/20/2019 10/25/2020 CKD (chronic kidney disease) stage 3, GFR 30-59 ml/min 06/19/2016 10/25/2020 Overview: Seeing Dr. 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 Plan: Continue pantoprazole 40mg qday. Last Assessment & Plan: Assessment: h/o, no longer taking rx SUMMARY 01/13/2013 10/19/2019 Overview: Mr. 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 Mr. Sanon and his describe two normal bowel movements earlier in the day, and 3 episodes of blood in the stool since about 2 PM this afternoon. He describes the first episode as having fresh bright red blood larger in volume than several tablespoons which also mixed into the stool and toilet water. He had another episode earlier this evening, and a third episode upon admission to [facility] which was much less blood and mostly mixed into the stool. He denies hemoptysis, hematemesis, or other site of bleeding. Upon discharge 02/04/13 his hemoglobin was 8.6. In the ED tonight, Hgb is 8.4, Hct 24.4, plt 41. Ascites 01/13/2013 10/19/2019 Overview: Patient denies known history of SBP. Denies current abdominal tenderness, and no large volume ascites with need for paracentesis 02/06/2013. Plan: - ? Diuretics - will D/W nephrology Cirrhosis of liver 1 documented as of this encounter (statuses as of 05/14/2023) [facility]04-27-2022 History of Past illness Narrative* Problem Noted Date Diagnosed Date Resolved Date Hyperkalemia 12/13/2021 12/18/2021 Last Assessment & Plan: Assessment: Improved, K+ is 4.9 on today's labs. Hyperkalemic trends with recent BMPs. PLAN: - Continuous tele monitoring ordered - Daily BMPs Ileus, postoperative 12/13/2021 022 Last Assessment & Plan: Assessment: POD3 ventral hernia repair with mesh. Now with bowel function. No nausea, vomiting. PLAN: - D/C NGT. - Advance to [facility] - Continue to get OOB Ventral hernia, recurrent 12/12/2021 Metabolic acidosis 11/25/2019 1 Medication management 05/18/20192019 Hyperkalemia 04/24/2019 10/25/2020 Last Assessment & Plan: K 5.2 at time of discharge, likely elevated in setting of NASIR on CKD Patient also stated that he was eating potatoes with every meal because that was what they were giving him He has had hyperkalemia in the past PLAN: - Switched to renal diet - Educated patient on what foods to avoid - Recheck BMP on Saturday at PCP follow up appointment for monitoring of K Transaminitis 03/25/2019 03/27/2019 Pain in left foot 02/20/2019 10/25/2020 CKD (chronic kidney disease) stage 3, GFR 30-59 ml/min 06/19/2016 10/25/2020 Overview: Seeing Dr. 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 Plan: Continue pantoprazole 40mg qday. Last Assessment & Plan: Assessment: h/o, no longer taking rx SUMMARY 01/13/2013 10/19/2019 Overview: Mr. 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 Mr. Sanon and his describe two normal bowel movements earlier in the day, and 3 episodes of blood in the stool since about 2 PM this afternoon. He describes the first episode as having fresh bright red blood larger in volume than several tablespoons which also mixed into the stool and toilet water. He had another episode earlier this evening, and a third episode upon admission to [facility] which was much less blood and mostly mixed into the stool. He denies hemoptysis, hematemesis, or other site of bleeding. Upon discharge 02/04/13 his hemoglobin was 8.6. In the ED tonight, Hgb is 8.4, Hct 24.4, plt 41. Ascites 01/13/2013 10/19/2019 Overview: Patient denies known history of SBP. Denies current abdominal tenderness, and no large volume ascites with need for paracentesis 02/06/2013. Plan: - ? Diuretics - will D/W nephrology Cirrhosis of liver 1 documented as of this encounter (statuses as of 05/17/2023) [facility]04-27-2022 History of Past illness Narrative* Problem Noted Date Diagnosed Date Resolved Date Hyperkalemia 12/13/2021 12/18/2021 Last Assessment & Plan: Assessment: Improved, K+ is 4.9 on today's labs. Hyperkalemic trends with recent BMPs. PLAN: - Continuous tele monitoring ordered - Daily BMPs Ileus, postoperative 12/13/2021 05/02/2 022 Last Assessment & Plan: Assessment: POD3 ventral hernia repair with mesh. Now with bowel function. No nausea, vomiting. PLAN: - D/C NGT. - Advance to [facility] - Continue to get OOB Ventral hernia, recurrent 12/12/2021 Metabolic acidosis 11/25/2019 1 Medication management 05/18/20192019 Hyperkalemia 04/24/2019 10/25/2020 Last Assessment & Plan: K 5.2 at time of discharge, likely elevated in setting of NASIR on CKD Patient also stated that he was eating potatoes with every meal because that was what they were giving him He has had hyperkalemia in the past PLAN: - Switched to renal diet - Educated patient on what foods to avoid - Recheck BMP on Saturday at PCP follow up appointment for monitoring of K Transaminitis 03/25/2019 03/27/2019 Pain in left foot 02/20/2019 10/25/2020 CKD (chronic kidney disease) stage 3, GFR 30-59 ml/min 06/19/2016 10/25/2020 Overview: Seeing Dr. 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 Plan: Continue pantoprazole 40mg qday. Last Assessment & Plan: Assessment: h/o, no longer taking rx SUMMARY 01/13/2013 10/19/2019 Overview: Mr. 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 Mr. Sanon and his describe two normal bowel movements earlier in the day, and 3 episodes of blood in the stool since about 2 PM this afternoon. He describes the first episode as having fresh bright red blood larger in volume than several tablespoons which also mixed into the stool and toilet water. He had another episode earlier this evening, and a third episode upon admission to [facility] which was much less blood and mostly mixed into the stool. He denies hemoptysis, hematemesis, or other site of bleeding. Upon discharge 02/04/13 his hemoglobin was 8.6. In the ED tonight, Hgb is 8.4, Hct 24.4, plt 41. Ascites 01/13/2013 10/19/2019 Overview: Patient denies known history of SBP. Denies current abdominal tenderness, and no large volume ascites with need for paracentesis 02/06/2013. Plan: - ? Diuretics - will D/W nephrology Cirrhosis of liver 1 documented as of this encounter (statuses as of 05/25/2023) [facility]04-27-2022 History of Past illness Narrative* Problem Noted Date Diagnosed Date Resolved Date Hyperkalemia 12/13/2021 12/18/2021 Last Assessment & Plan: Assessment: Improved, K+ is 4.9 on today's labs. Hyperkalemic trends with recent BMPs. PLAN: - Continuous tele monitoring ordered - Daily BMPs Ileus, postoperative 12/13/2021 022 Last Assessment & Plan: Assessment: POD3 ventral hernia repair with mesh. Now with bowel function. No nausea, vomiting. PLAN: - D/C NGT. - Advance to [facility] - Continue to get OOB Ventral hernia, recurrent 12/12/2021 Metabolic acidosis 11/25/2019 1 Medication management 05/18/20192019 Hyperkalemia 04/24/2019 10/25/2020 Last Assessment & Plan: K 5.2 at time of discharge, likely elevated in setting of NASIR on CKD Patient also stated that he was eating potatoes with every meal because that was what they were giving him He has had hyperkalemia in the past PLAN: - Switched to renal diet - Educated patient on what foods to avoid - Recheck BMP on Saturday at PCP follow up appointment for monitoring of K Transaminitis 03/25/2019 03/27/2019 Pain in left foot 02/20/2019 10/25/2020 CKD (chronic kidney disease) stage 3, GFR 30-59 ml/min 06/19/2016 10/25/2020 Overview: Seeing Dr. 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 Plan: Continue pantoprazole 40mg qday. Last Assessment & Plan: Assessment: h/o, no longer taking rx SUMMARY 01/13/2013 10/19/2019 Overview: Mr. 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 Mr. Sanon and his describe two normal bowel movements earlier in the day, and 3 episodes of blood in the stool since about 2 PM this afternoon. He describes the first episode as having fresh bright red blood larger in volume than several tablespoons which also mixed into the stool and toilet water. He had another episode earlier this evening, and a third episode upon admission to [facility] which was much less blood and mostly mixed into the stool. He denies hemoptysis, hematemesis, or other site of bleeding. Upon discharge 02/04/13 his hemoglobin was 8.6. In the ED tonight, Hgb is 8.4, Hct 24.4, plt 41. Ascites 01/13/2013 10/19/2019 Overview: Patient denies known history of SBP. Denies current abdominal tenderness, and no large volume ascites with need for paracentesis 02/06/2013. Plan: - ? Diuretics - will D/W nephrology Cirrhosis of liver 1 documented as of this encounter (statuses as of 05/30/2023) [facility]04-27-2022 History of Past illness Narrative* Problem Noted Date Diagnosed Date Resolved Date Hyperkalemia 12/13/2021 12/18/2021 Last Assessment & Plan: Assessment: Improved, K+ is 4.9 on today's labs. Hyperkalemic trends with recent BMPs. PLAN: - Continuous tele monitoring ordered - Daily BMPs Ileus, postoperative 12/13/2021 022 Last Assessment & Plan: Assessment: POD3 ventral hernia repair with mesh. Now with bowel function. No nausea, vomiting. PLAN: - D/C NGT. - Advance to [facility] - Continue to get OOB Ventral hernia, recurrent 12/12/2021 Metabolic acidosis 11/25/2019 1 Medication management 05/18/20192019 Hyperkalemia 04/24/2019 10/25/2020 Last Assessment & Plan: K 5.2 at time of discharge, likely elevated in setting of NASIR on CKD Patient also stated that he was eating potatoes with every meal because that was what they were giving him He has had hyperkalemia in the past PLAN: - Switched to renal diet - Educated patient on what foods to avoid - Recheck BMP on Saturday at PCP follow up appointment for monitoring of K Transaminitis 03/25/2019 03/27/2019 Pain in left foot 02/20/2019 10/25/2020 CKD (chronic kidney disease) stage 3, GFR 30-59 ml/min 06/19/2016 10/25/2020 Overview: Seeing Dr. 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 Plan: Continue pantoprazole 40mg qday. Last Assessment & Plan: Assessment: h/o, no longer taking rx SUMMARY 01/13/2013 10/19/2019 Overview: Mr. 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 Mr. Sanon and his describe two normal bowel movements earlier in the day, and 3 episodes of blood in the stool since about 2 PM this afternoon. He describes the first episode as having fresh bright red blood larger in volume than several tablespoons which also mixed into the stool and toilet water. He had another episode earlier this evening, and a third episode upon admission to [facility] which was much less blood and mostly mixed into the stool. He denies hemoptysis, hematemesis, or other site of bleeding. Upon discharge 02/04/13 his hemoglobin was 8.6. In the ED tonight, Hgb is 8.4, Hct 24.4, plt 41. Ascites 01/13/2013 10/19/2019 Overview: Patient denies known history of SBP. Denies current abdominal tenderness, and no large volume ascites with need for paracentesis 02/06/2013. Plan: - ? Diuretics - will D/W nephrology Cirrhosis of liver 1 documented as of this encounter (statuses as of 05/30/2023) [facility]04-27-2022 History of Past illness Narrative* Problem Noted Date Diagnosed Date Resolved Date Hyperkalemia 12/13/2021 12/18/2021 Last Assessment & Plan: Assessment: Improved, K+ is 4.9 on today's labs. Hyperkalemic trends with recent BMPs. PLAN: - Continuous tele monitoring ordered - Daily BMPs Ileus, postoperative 12/13/2021 022 Last Assessment & Plan: Assessment: POD3 ventral hernia repair with mesh. Now with bowel function. No nausea, vomiting. PLAN: - D/C NGT. - Advance to [facility] - Continue to get OOB Ventral hernia, recurrent 12/12/2021 Metabolic acidosis 11/25/2019 1 Medication management 05/18/20192019 Hyperkalemia 04/24/2019 10/25/2020 Last Assessment & Plan: K 5.2 at time of discharge, likely elevated in setting of NASIR on CKD Patient also stated that he was eating potatoes with every meal because that was what they were giving him He has had hyperkalemia in the past PLAN: - Switched to renal diet - Educated patient on what foods to avoid - Recheck BMP on Saturday at PCP follow up appointment for monitoring of K Transaminitis 03/25/2019 03/27/2019 Pain in left foot 02/20/2019 10/25/2020 CKD (chronic kidney disease) stage 3, GFR 30-59 ml/min 06/19/2016 10/25/2020 Overview: Seeing Dr. 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 Plan: Continue pantoprazole 40mg qday. Last Assessment & Plan: Assessment: h/o, no longer taking rx SUMMARY 01/13/2013 10/19/2019 Overview: Mr. 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 Mr. Sanon and his describe two normal bowel movements earlier in the day, and 3 episodes of blood in the stool since about 2 PM this afternoon. He describes the first episode as having fresh bright red blood larger in volume than several tablespoons which also mixed into the stool and toilet water. He had another episode earlier this evening, and a third episode upon admission to [facility] which was much less blood and mostly mixed into the stool. He denies hemoptysis, hematemesis, or other site of bleeding. Upon discharge 02/04/13 his hemoglobin was 8.6. In the ED tonight, Hgb is 8.4, Hct 24.4, plt 41. Ascites 01/13/2013 10/19/2019 Overview: Patient denies known history of SBP. Denies current abdominal tenderness, and no large volume ascites with need for paracentesis 02/06/2013. Plan: - ? Diuretics - will D/W nephrology Cirrhosis of liver 1 documented as of this encounter (statuses as of 06/04/2023) [facility]04-27-2022 History of Past illness Narrative* Problem Noted Date Diagnosed Date Resolved Date Hyperkalemia 12/13/2021 12/18/2021 Last Assessment & Plan: Assessment: Improved, K+ is 4.9 on today's labs. Hyperkalemic trends with recent BMPs. PLAN: - Continuous tele monitoring ordered - Daily BMPs Ileus, postoperative 12/13/2021 022 Last Assessment & Plan: Assessment: POD3 ventral hernia repair with mesh. Now with bowel function. No nausea, vomiting. PLAN: - D/C NGT. - Advance to [facility] - Continue to get OOB Ventral hernia, recurrent 12/12/2021 Metabolic acidosis 11/25/2019 1 Medication management 05/18/20192019 Hyperkalemia 04/24/2019 10/25/2020 Last Assessment & Plan: K 5.2 at time of discharge, likely elevated in setting of NASIR on CKD Patient also stated that he was eating potatoes with every meal because that was what they were giving him He has had hyperkalemia in the past PLAN: - Switched to renal diet - Educated patient on what foods to avoid - Recheck BMP on Saturday at PCP follow up appointment for monitoring of K Transaminitis 03/25/2019 03/27/2019 Pain in left foot 02/20/2019 10/25/2020 CKD (chronic kidney disease) stage 3, GFR 30-59 ml/min 06/19/2016 10/25/2020 Overview: Seeing Dr. 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 Plan: Continue pantoprazole 40mg qday. Last Assessment & Plan: Assessment: h/o, no longer taking rx SUMMARY 01/13/2013 10/19/2019 Overview: Mr. 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 Mr. Sanon and his describe two normal bowel movements earlier in the day, and 3 episodes of blood in the stool since about 2 PM this afternoon. He describes the first episode as having fresh bright red blood larger in volume than several tablespoons which also mixed into the stool and toilet water. He had another episode earlier this evening, and a third episode upon admission to [facility] which was much less blood and mostly mixed into the stool. He denies hemoptysis, hematemesis, or other site of bleeding. Upon discharge 02/04/13 his hemoglobin was 8.6. In the ED tonight, Hgb is 8.4, Hct 24.4, plt 41. Ascites 01/13/2013 10/19/2019 Overview: Patient denies known history of SBP. Denies current abdominal tenderness, and no large volume ascites with need for paracentesis 02/06/2013. Plan: - ? Diuretics - will D/W nephrology Cirrhosis of liver 1 documented as of this encounter (statuses as of 06/06/2023) [facility]04-27-2022 History of Past illness Narrative* Problem Noted Date Diagnosed Date Resolved Date Hyperkalemia 12/13/2021 12/18/2021 Last Assessment & Plan: Assessment: Improved, K+ is 4.9 on today's labs. Hyperkalemic trends with recent BMPs. PLAN: - Continuous tele monitoring ordered - Daily BMPs Ileus, postoperative 12/13/2021 022 Last Assessment & Plan: Assessment: POD3 ventral hernia repair with mesh. Now with bowel function. No nausea, vomiting. PLAN: - D/C NGT. - Advance to [facility] - Continue to get OOB Ventral hernia, recurrent 12/12/2021 Metabolic acidosis 11/25/2019 1 Medication management 05/18/20192019 Hyperkalemia 04/24/2019 10/25/2020 Last Assessment & Plan: K 5.2 at time of discharge, likely elevated in setting of NASIR on CKD Patient also stated that he was eating potatoes with every meal because that was what they were giving him He has had hyperkalemia in the past PLAN: - Switched to renal diet - Educated patient on what foods to avoid - Recheck BMP on Saturday at PCP follow up appointment for monitoring of K Transaminitis 03/25/2019 03/27/2019 Pain in left foot 02/20/2019 10/25/2020 CKD (chronic kidney disease) stage 3, GFR 30-59 ml/min 06/19/2016 10/25/2020 Overview: Seeing Dr. 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 Plan: Continue pantoprazole 40mg qday. Last Assessment & Plan: Assessment: h/o, no longer taking rx SUMMARY 01/13/2013 10/19/2019 Overview: Mr. 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 Mr. Sanon and his describe two normal bowel movements earlier in the day, and 3 episodes of blood in the stool since about 2 PM this afternoon. He describes the first episode as having fresh bright red blood larger in volume than several tablespoons which also mixed into the stool and toilet water. He had another episode earlier this evening, and a third episode upon admission to [facility] which was much less blood and mostly mixed into the stool. He denies hemoptysis, hematemesis, or other site of bleeding. Upon discharge 02/04/13 his hemoglobin was 8.6. In the ED tonight, Hgb is 8.4, Hct 24.4, plt 41. Ascites 01/13/2013 10/19/2019 Overview: Patient denies known history of SBP. Denies current abdominal tenderness, and no large volume ascites with need for paracentesis 02/06/2013. Plan: - ? Diuretics - will D/W nephrology Cirrhosis of liver 1 documented as of this encounter (statuses as of 06/11/2023) [facility]04-27-2022 History of Past illness Narrative* Problem Noted Date Diagnosed Date Resolved Date Hyperkalemia 12/13/2021 12/18/2021 Last Assessment & Plan: Assessment: Improved, K+ is 4.9 on today's labs. Hyperkalemic trends with recent BMPs. PLAN: - Continuous tele monitoring ordered - Daily BMPs Ileus, postoperative 12/13/2021 022 Last Assessment & Plan: Assessment: POD3 ventral hernia repair with mesh. Now with bowel function. No nausea, vomiting. PLAN: - D/C NGT. - Advance to [facility] - Continue to get OOB Ventral hernia, recurrent 12/12/2021 Metabolic acidosis 11/25/2019 1 Medication management 05/18/20192019 Hyperkalemia 04/24/2019 10/25/2020 Last Assessment & Plan: K 5.2 at time of discharge, likely elevated in setting of NASIR on CKD Patient also stated that he was eating potatoes with every meal because that was what they were giving him He has had hyperkalemia in the past PLAN: - Switched to renal diet - Educated patient on what foods to avoid - Recheck BMP on Saturday at PCP follow up appointment for monitoring of K Transaminitis 03/25/2019 03/27/2019 Pain in left foot 02/20/2019 10/25/2020 CKD (chronic kidney disease) stage 3, GFR 30-59 ml/min 06/19/2016 10/25/2020 Overview: Seeing Dr. 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 Plan: Continue pantoprazole 40mg qday. Last Assessment & Plan: Assessment: h/o, no longer taking rx SUMMARY 01/13/2013 10/19/2019 Overview: Mr. 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 Mr. Sanon and his describe two normal bowel movements earlier in the day, and 3 episodes of blood in the stool since about 2 PM this afternoon. He describes the first episode as having fresh bright red blood larger in volume than several tablespoons which also mixed into the stool and toilet water. He had another episode earlier this evening, and a third episode upon admission to [facility] which was much less blood and mostly mixed into the stool. He denies hemoptysis, hematemesis, or other site of bleeding. Upon discharge 02/04/13 his hemoglobin was 8.6. In the ED tonight, Hgb is 8.4, Hct 24.4, plt 41. Ascites 01/13/2013 10/19/2019 Overview: Patient denies known history of SBP. Denies current abdominal tenderness, and no large volume ascites with need for paracentesis 02/06/2013. Plan: - ? Diuretics - will D/W nephrology Cirrhosis of liver 1 documented as of this encounter (statuses as of 06/26/2023) [facility]04-27-2022 History of Past illness Narrative* Problem Noted Date Diagnosed Date Resolved Date Hyperkalemia 12/13/2021 12/18/2021 Last Assessment & Plan: Assessment: Improved, K+ is 4.9 on today's labs. Hyperkalemic trends with recent BMPs. PLAN: - Continuous tele monitoring ordered - Daily BMPs Ileus, postoperative 12/13/2021 022 Last Assessment & Plan: Assessment: POD3 ventral hernia repair with mesh. Now with bowel function. No nausea, vomiting. PLAN: - D/C NGT. - Advance to [facility] - Continue to get OOB Ventral hernia, recurrent 12/12/2021 Metabolic acidosis 11/25/2019 Medication management 05/18/20192019 Hyperkalemia 04/24/2019 10/25/2020 Last Assessment & Plan: K 5.2 at time of discharge, likely elevated in setting of NASIR on CKD Patient also stated that he was eating potatoes with every meal because that was what they were giving him He has had hyperkalemia in the past PLAN: - Switched to renal diet - Educated patient on what foods to avoid - Recheck BMP on Saturday at PCP follow up appointment for monitoring of K Transaminitis 03/25/2019 03/27/2019 Pain in left foot 02/20/2019 10/25/2020 CKD (chronic kidney disease) stage 3, GFR 30-59 ml/min 06/19/2016 10/25/2020 Overview: Seeing Dr. 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 Plan: Continue pantoprazole 40mg qday. Last Assessment & Plan: Assessment: h/o, no longer taking rx SUMMARY 01/13/2013 10/19/2019 Overview: Mr. 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 Mr. Sanon and his describe two normal bowel movements earlier in the day, and 3 episodes of blood in the stool since about 2 PM this afternoon. He describes the first episode as having fresh bright red blood larger in volume than several tablespoons which also mixed into the stool and toilet water. He had another episode earlier this evening, and a third episode upon admission to [facility] which was much less blood and mostly mixed into the stool. He denies hemoptysis, hematemesis, or other site of bleeding. Upon discharge 02/04/13 his hemoglobin was 8.6. In the ED tonight, Hgb is 8.4, Hct 24.4, plt 41. Ascites 01/13/2013 10/19/2019 Overview: Patient denies known history of SBP. Denies current abdominal tenderness, and no large volume ascites with need for paracentesis 02/06/2013. Plan: - ? Diuretics - will D/W nephrology Cirrhosis of liver 1 documented as of this encounter (statuses as of 06/26/2023) [facility]04-27-2022 History of Past illness Narrative* Problem Noted Date Diagnosed Date Resolved Date Hyperkalemia 12/13/2021 12/18/2021 Last Assessment & Plan: Assessment: Improved, K+ is 4.9 on today's labs. Hyperkalemic trends with recent BMPs. PLAN: - Continuous tele monitoring ordered - Daily BMPs Ileus, postoperative 12/13/2021 022 Last Assessment & Plan: Assessment: POD3 ventral hernia repair with mesh. Now with bowel function. No nausea, vomiting. PLAN: - D/C NGT. - Advance to [facility] - Continue to get OOB Ventral hernia, recurrent 12/12/2021 Metabolic acidosis 11/25/2019 1 Medication management 05/18/20192019 Hyperkalemia 04/24/2019 10/25/2020 Last Assessment & Plan: K 5.2 at time of discharge, likely elevated in setting of NASIR on CKD Patient also stated that he was eating potatoes with every meal because that was what they were giving him He has had hyperkalemia in the past PLAN: - Switched to renal diet - Educated patient on what foods to avoid - Recheck BMP on Saturday at PCP follow up appointment for monitoring of K Transaminitis 03/25/2019 03/27/2019 Pain in left foot 02/20/2019 10/25/2020 CKD (chronic kidney disease) stage 3, GFR 30-59 ml/min 06/19/2016 10/25/2020 Overview: Seeing Dr. 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 Plan: Continue pantoprazole 40mg qday. Last Assessment & Plan: Assessment: h/o, no longer taking rx SUMMARY 01/13/2013 10/19/2019 Overview: Mr. 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 Mr. Sanon and his describe two normal bowel movements earlier in the day, and 3 episodes of blood in the stool since about 2 PM this afternoon. He describes the first episode as having fresh bright red blood larger in volume than several tablespoons which also mixed into the stool and toilet water. He had another episode earlier this evening, and a third episode upon admission to [facility] which was much less blood and mostly mixed into the stool. He denies hemoptysis, hematemesis, or other site of bleeding. Upon discharge 02/04/13 his hemoglobin was 8.6. In the ED tonight, Hgb is 8.4, Hct 24.4, plt 41. Ascites 01/13/2013 10/19/2019 Overview: Patient denies known history of SBP. Denies current abdominal tenderness, and no large volume ascites with need for paracentesis 02/06/2013. Plan: - ? Diuretics - will D/W nephrology Cirrhosis of liver 1 documented as of this encounter (statuses as of 06/28/2023) [facility]04-27-2022 History of Past illness Narrative* Problem Noted Date Diagnosed Date Resolved Date Hyperkalemia 12/13/2021 12/18/2021 Last Assessment & Plan: Assessment: Improved, K+ is 4.9 on today's labs. Hyperkalemic trends with recent BMPs. PLAN: - Continuous tele monitoring ordered - Daily BMPs Ileus, postoperative 12/13/2021 022 Last Assessment & Plan: Assessment: POD3 ventral hernia repair with mesh. Now with bowel function. No nausea, vomiting. PLAN: - D/C NGT. - Advance to [facility] - Continue to get OOB Ventral hernia, recurrent 12/12/2021 Metabolic acidosis 11/25/2019 Medication management 05/18/20192019 Hyperkalemia 04/24/2019 10/25/2020 Last Assessment & Plan: K 5.2 at time of discharge, likely elevated in setting of NASIR on CKD Patient also stated that he was eating potatoes with every meal because that was what they were giving him He has had hyperkalemia in the past PLAN: - Switched to renal diet - Educated patient on what foods to avoid - Recheck BMP on Saturday at PCP follow up appointment for monitoring of K Transaminitis 03/25/2019 03/27/2019 Pain in left foot 02/20/2019 10/25/2020 CKD (chronic kidney disease) stage 3, GFR 30-59 ml/min 06/19/2016 10/25/2020 Overview: Seeing Dr. 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 Plan: Continue pantoprazole 40mg qday. Last Assessment & Plan: Assessment: h/o, no longer taking rx SUMMARY 01/13/2013 10/19/2019 Overview: Mr. 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 Mr. Sanon and his describe two normal bowel movements earlier in the day, and 3 episodes of blood in the stool since about 2 PM this afternoon. He describes the first episode as having fresh bright red blood larger in volume than several tablespoons which also mixed into the stool and toilet water. He had another episode earlier this evening, and a third episode upon admission to [facility] which was much less blood and mostly mixed into the stool. He denies hemoptysis, hematemesis, or other site of bleeding. Upon discharge 02/04/13 his hemoglobin was 8.6. In the ED tonight, Hgb is 8.4, Hct 24.4, plt 41. Ascites 01/13/2013 10/19/2019 Overview: Patient denies known history of SBP. Denies current abdominal tenderness, and no large volume ascites with need for paracentesis 02/06/2013. Plan: - ? Diuretics - will D/W nephrology Cirrhosis of liver 1 documented as of this encounter (statuses as of 06/28/2023) [facility]04-27-2022 History of Past illness Narrative* Problem Noted Date Diagnosed Date Resolved Date Hyperkalemia 12/13/2021 12/18/2021 Last Assessment & Plan: Assessment: Improved, K+ is 4.9 on today's labs. Hyperkalemic trends with recent BMPs. PLAN: - Continuous tele monitoring ordered - Daily BMPs Ileus, postoperative 12/13/2021 022 Last Assessment & Plan: Assessment: POD3 ventral hernia repair with mesh. Now with bowel function. No nausea, vomiting. PLAN: - D/C NGT. - Advance to [facility] - Continue to get OOB Ventral hernia, recurrent 12/12/2021 Metabolic acidosis 11/25/2019 Medication management 05/18/20192019 Hyperkalemia 04/24/2019 10/25/2020 Last Assessment & Plan: K 5.2 at time of discharge, likely elevated in setting of NASIR on CKD Patient also stated that he was eating potatoes with every meal because that was what they were giving him He has had hyperkalemia in the past PLAN: - Switched to renal diet - Educated patient on what foods to avoid - Recheck BMP on Saturday at PCP follow up appointment for monitoring of K Transaminitis 03/25/2019 03/27/2019 Pain in left foot 02/20/2019 10/25/2020 CKD (chronic kidney disease) stage 3, GFR 30-59 ml/min 06/19/2016 10/25/2020 Overview: Seeing Dr. 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 Plan: Continue pantoprazole 40mg qday. Last Assessment & Plan: Assessment: h/o, no longer taking rx SUMMARY 01/13/2013 10/19/2019 Overview: Mr. 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 Mr. Sanon and his describe two normal bowel movements earlier in the day, and 3 episodes of blood in the stool since about 2 PM this afternoon. He describes the first episode as having fresh bright red blood larger in volume than several tablespoons which also mixed into the stool and toilet water. He had another episode earlier this evening, and a third episode upon admission to [facility] which was much less blood and mostly mixed into the stool. He denies hemoptysis, hematemesis, or other site of bleeding. Upon discharge 02/04/13 his hemoglobin was 8.6. In the ED tonight, Hgb is 8.4, Hct 24.4, plt 41. Ascites 01/13/2013 10/19/2019 Overview: Patient denies known history of SBP. Denies current abdominal tenderness, and no large volume ascites with need for paracentesis 02/06/2013. Plan: - ? Diuretics - will D/W nephrology Cirrhosis of liver 1 documented as of this encounter (statuses as of 07/01/2023) [facility]04-27-20[facility] History of Past illness Narrative* Problem Noted Date Diagnosed Date Resolved Date Hyperkalemia 12/13/2021 12/18/2021 Last Assessment & Plan: Assessment: Improved, K+ is 4.9 on today's labs. Hyperkalemic trends with recent BMPs. PLAN: - Continuous tele monitoring ordered - Daily BMPs Ileus, postoperative 12/13/2021 022 Last Assessment & Plan: Assessment: POD3 ventral hernia repair with mesh. Now with bowel function. No nausea, vomiting. PLAN: - D/C NGT. - Advance to [facility] - Continue to get OOB Ventral hernia, recurrent 12/12/2021 Metabolic acidosis 11/25/2019 1 Medication management 05/18/20192019 Hyperkalemia 04/24/2019 10/25/2020 Last Assessment & Plan: K 5.2 at time of discharge, likely elevated in setting of NASIR on CKD Patient also stated that he was eating potatoes with every meal because that was what they were giving him He has had hyperkalemia in the past PLAN: - Switched to renal diet - Educated patient on what foods to avoid - Recheck BMP on Saturday at PCP follow up appointment for monitoring of K Transaminitis 03/25/2019 03/27/2019 Pain in left foot 02/20/2019 10/25/2020 CKD (chronic kidney disease) stage 3, GFR 30-59 ml/min 06/19/2016 10/25/2020 Overview: Seeing Dr. 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 Plan: Continue pantoprazole 40mg qday. Last Assessment & Plan: Assessment: h/o, no longer taking rx SUMMARY 01/13/2013 10/19/2019 Overview: Mr. 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 Mr. Sanon and his describe two normal bowel movements earlier in the day, and 3 episodes of blood in the stool since about 2 PM this afternoon. He describes the first episode as having fresh bright red blood larger in volume than several tablespoons which also mixed into the stool and toilet water. He had another episode earlier this evening, and a third episode upon admission to [facility] which was much less blood and mostly mixed into the stool. He denies hemoptysis, hematemesis, or other site of bleeding. Upon discharge 02/04/13 his hemoglobin was 8.6. In the ED tonight, Hgb is 8.4, Hct 24.4, plt 41. Ascites 01/13/2013 10/19/2019 Overview: Patient denies known history of SBP. Denies current abdominal tenderness, and no large volume ascites with need for paracentesis 02/06/2013. Plan: - ? Diuretics - will D/W nephrology Cirrhosis of liver 1 documented as of this encounter (statuses as of 07/04/2023) [facility]04-27-20[facility] History of Past illness Narrative* Problem Noted Date Diagnosed Date Resolved Date Hyperkalemia 12/13/2021 12/18/2021 Last Assessment & Plan: Assessment: Improved, K+ is 4.9 on today's labs. Hyperkalemic trends with recent BMPs. PLAN: - Continuous tele monitoring ordered - Daily BMPs Ileus, postoperative 12/13/2021 022 Last Assessment & Plan: Assessment: POD3 ventral hernia repair with mesh. Now with bowel function. No nausea, vomiting. PLAN: - D/C NGT. - Advance to [facility] - Continue to get OOB Ventral hernia, recurrent 12/12/2021 Metabolic acidosis 11/25/2019 1 Medication management 05/18/20192019 Hyperkalemia 04/24/2019 10/25/2020 Last Assessment & Plan: K 5.2 at time of discharge, likely elevated in setting of NASIR on CKD Patient also stated that he was eating potatoes with every meal because that was what they were giving him He has had hyperkalemia in the past PLAN: - Switched to renal diet - Educated patient on what foods to avoid - Recheck BMP on Saturday at PCP follow up appointment for monitoring of K Transaminitis 03/25/2019 03/27/2019 Pain in left foot 02/20/2019 10/25/2020 CKD (chronic kidney disease) stage 3, GFR 30-59 ml/min 06/19/2016 10/25/2020 Overview: Seeing Dr. 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 Plan: Continue pantoprazole 40mg qday. Last Assessment & Plan: Assessment: h/o, no longer taking rx SUMMARY 01/13/2013 10/19/2019 Overview: Mr. 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 Mr. Sanon and his describe two normal bowel movements earlier in the day, and 3 episodes of blood in the stool since about 2 PM this afternoon. He describes the first episode as having fresh bright red blood larger in volume than several tablespoons which also mixed into the stool and toilet water. He had another episode earlier this evening, and a third episode upon admission to [facility] which was much less blood and mostly mixed into the stool. He denies hemoptysis, hematemesis, or other site of bleeding. Upon discharge 02/04/13 his hemoglobin was 8.6. In the ED tonight, Hgb is 8.4, Hct 24.4, plt 41. Ascites 01/13/2013 10/19/2019 Overview: Patient denies known history of SBP. Denies current abdominal tenderness, and no large volume ascites with need for paracentesis 02/06/2013. Plan: - ? Diuretics - will D/W nephrology Cirrhosis of liver 1 documented as of this encounter (statuses as of 07/08/2023) [facility]04-27-2022 History of Past illness Narrative* Problem Noted Date Diagnosed Date Resolved Date Hyperkalemia 12/13/2021 12/18/2021 Last Assessment & Plan: Assessment: Improved, K+ is 4.9 on today's labs. Hyperkalemic trends with recent BMPs. PLAN: - Continuous tele monitoring ordered - Daily BMPs Ileus, postoperative 12/13/2021 022 Last Assessment & Plan: Assessment: POD3 ventral hernia repair with mesh. Now with bowel function. No nausea, vomiting. PLAN: - D/C NGT. - Advance to [facility] - Continue to get OOB Ventral hernia, recurrent 12/12/2021 Metabolic acidosis 11/25/2019 1 Medication management 05/18/20192019 Hyperkalemia 04/24/2019 10/25/2020 Last Assessment & Plan: K 5.2 at time of discharge, likely elevated in setting of NASIR on CKD Patient also stated that he was eating potatoes with every meal because that was what they were giving him He has had hyperkalemia in the past PLAN: - Switched to renal diet - Educated patient on what foods to avoid - Recheck BMP on Saturday at PCP follow up appointment for monitoring of K Transaminitis 03/25/2019 03/27/2019 Pain in left foot 02/20/2019 10/25/2020 CKD (chronic kidney disease) stage 3, GFR 30-59 ml/min 06/19/2016 10/25/2020 Overview: Seeing Dr. 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 Plan: Continue pantoprazole 40mg qday. Last Assessment & Plan: Assessment: h/o, no longer taking rx SUMMARY 01/13/2013 10/19/2019 Overview: Mr. 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 Mr. Sanon and his describe two normal bowel movements earlier in the day, and 3 episodes of blood in the stool since about 2 PM this afternoon. He describes the first episode as having fresh bright red blood larger in volume than several tablespoons which also mixed into the stool and toilet water. He had another episode earlier this evening, and a third episode upon admission to [facility] which was much less blood and mostly mixed into the stool. He denies hemoptysis, hematemesis, or other site of bleeding. Upon discharge 02/04/13 his hemoglobin was 8.6. In the ED tonight, Hgb is 8.4, Hct 24.4, plt 41. Ascites 01/13/2013 10/19/2019 Overview: Patient denies known history of SBP. Denies current abdominal tenderness, and no large volume ascites with need for paracentesis 02/06/2013. Plan: - ? Diuretics - will D/W nephrology Cirrhosis of liver 1 documented as of this encounter (statuses as of 07/09/2023) [facility]04-27-2022 History of Past illness Narrative* Problem Noted Date Diagnosed Date Resolved Date Hyperkalemia 12/13/2021 12/18/2021 Last Assessment & Plan: Assessment: Improved, K+ is 4.9 on today's labs. Hyperkalemic trends with recent BMPs. PLAN: - Continuous tele monitoring ordered - Daily BMPs Ileus, postoperative 12/13/2021 022 Last Assessment & Plan: Assessment: POD3 ventral hernia repair with mesh. Now with bowel function. No nausea, vomiting. PLAN: - D/C NGT. - Advance to [facility] - Continue to get OOB Ventral hernia, recurrent 12/12/2021 Metabolic acidosis 11/25/2019 1 Medication management 05/18/20192019 Hyperkalemia 04/24/2019 10/25/2020 Last Assessment & Plan: K 5.2 at time of discharge, likely elevated in setting of NASIR on CKD Patient also stated that he was eating potatoes with every meal because that was what they were giving him He has had hyperkalemia in the past PLAN: - Switched to renal diet - Educated patient on what foods to avoid - Recheck BMP on Saturday at PCP follow up appointment for monitoring of K Transaminitis 03/25/2019 03/27/2019 Pain in left foot 02/20/2019 10/25/2020 CKD (chronic kidney disease) stage 3, GFR 30-59 ml/min 06/19/2016 10/25/2020 Overview: Seeing Dr. 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 Plan: Continue pantoprazole 40mg qday. Last Assessment & Plan: Assessment: h/o, no longer taking rx SUMMARY 01/13/2013 10/19/2019 Overview: Mr. 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 Mr. Sanon and his describe two normal bowel movements earlier in the day, and 3 episodes of blood in the stool since about 2 PM this afternoon. He describes the first episode as having fresh bright red blood larger in volume than several tablespoons which also mixed into the stool and toilet water. He had another episode earlier this evening, and a third episode upon admission to [facility] which was much less blood and mostly mixed into the stool. He denies hemoptysis, hematemesis, or other site of bleeding. Upon discharge 02/04/13 his hemoglobin was 8.6. In the ED tonight, Hgb is 8.4, Hct 24.4, plt 41. Ascites 01/13/2013 10/19/2019 Overview: Patient denies known history of SBP. Denies current abdominal tenderness, and no large volume ascites with need for paracentesis 02/06/2013. Plan: - ? Diuretics - will D/W nephrology Cirrhosis of liver 1 documented as of this encounter (statuses as of 07/12/2023) [facility]04-27-2022 History of Past illness Narrative* Problem Noted Date Diagnosed Date Resolved Date Hyperkalemia 12/13/2021 12/18/2021 Last Assessment & Plan: Assessment: Improved, K+ is 4.9 on today's labs. Hyperkalemic trends with recent BMPs. PLAN: - Continuous tele monitoring ordered - Daily BMPs Ileus, postoperative 12/13/2021 022 Last Assessment & Plan: Assessment: POD3 ventral hernia repair with mesh. Now with bowel function. No nausea, vomiting. PLAN: - D/C NGT. - Advance to [facility] - Continue to get OOB Ventral hernia, recurrent 12/12/2021 Metabolic acidosis 11/25/2019 1 Medication management 05/18/20192019 Hyperkalemia 04/24/2019 10/25/2020 Last Assessment & Plan: K 5.2 at time of discharge, likely elevated in setting of NASIR on CKD Patient also stated that he was eating potatoes with every meal because that was what they were giving him He has had hyperkalemia in the past PLAN: - Switched to renal diet - Educated patient on what foods to avoid - Recheck BMP on Saturday at PCP follow up appointment for monitoring of K Transaminitis 03/25/2019 03/27/2019 Pain in left foot 02/20/2019 10/25/2020 CKD (chronic kidney disease) stage 3, GFR 30-59 ml/min 06/19/2016 10/25/2020 Overview: Seeing Dr. 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 Plan: Continue pantoprazole 40mg qday. Last Assessment & Plan: Assessment: h/o, no longer taking rx SUMMARY 01/13/2013 10/19/2019 Overview: Mr. 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 Mr. Sanon and his describe two normal bowel movements earlier in the day, and 3 episodes of blood in the stool since about 2 PM this afternoon. He describes the first episode as having fresh bright red blood larger in volume than several tablespoons which also mixed into the stool and toilet water. He had another episode earlier this evening, and a third episode upon admission to [facility] which was much less blood and mostly mixed into the stool. He denies hemoptysis, hematemesis, or other site of bleeding. Upon discharge 02/04/13 his hemoglobin was 8.6. In the ED tonight, Hgb is 8.4, Hct 24.4, plt 41. Ascites 01/13/2013 10/19/2019 Overview: Patient denies known history of SBP. Denies current abdominal tenderness, and no large volume ascites with need for paracentesis 02/06/2013. Plan: - ? Diuretics - will D/W nephrology Cirrhosis of liver 1 documented as of this encounter (statuses as of 07/18/2023) [facility]04-27-2022 History of Past illness Narrative* Problem Noted Date Diagnosed Date Resolved Date Hyperkalemia 12/13/2021 12/18/2021 Last Assessment & Plan: Assessment: Improved, K+ is 4.9 on today's labs. Hyperkalemic trends with recent BMPs. PLAN: - Continuous tele monitoring ordered - Daily BMPs Ileus, postoperative 12/13/2021 022 Last Assessment & Plan: Assessment: POD3 ventral hernia repair with mesh. Now with bowel function. No nausea, vomiting. PLAN: - D/C NGT. - Advance to [facility] - Continue to get OOB Ventral hernia, recurrent 12/12/2021 Metabolic acidosis 11/25/2019 1 Medication management 05/18/20192019 Hyperkalemia 04/24/2019 10/25/2020 Last Assessment & Plan: K 5.2 at time of discharge, likely elevated in setting of NASIR on CKD Patient also stated that he was eating potatoes with every meal because that was what they were giving him He has had hyperkalemia in the past PLAN: - Switched to renal diet - Educated patient on what foods to avoid - Recheck BMP on Saturday at PCP follow up appointment for monitoring of K Transaminitis 03/25/2019 03/27/2019 Pain in left foot 02/20/2019 10/25/2020 CKD (chronic kidney disease) stage 3, GFR 30-59 ml/min 06/19/2016 10/25/2020 Overview: Seeing Dr. 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 Plan: Continue pantoprazole 40mg qday. Last Assessment & Plan: Assessment: h/o, no longer taking rx SUMMARY 01/13/2013 10/19/2019 Overview: Mr. 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 Mr. Sanon and his describe two normal bowel movements earlier in the day, and 3 episodes of blood in the stool since about 2 PM this afternoon. He describes the first episode as having fresh bright red blood larger in volume than several tablespoons which also mixed into the stool and toilet water. He had another episode earlier this evening, and a third episode upon admission to [facility] which was much less blood and mostly mixed into the stool. He denies hemoptysis, hematemesis, or other site of bleeding. Upon discharge 02/04/13 his hemoglobin was 8.6. In the ED tonight, Hgb is 8.4, Hct 24.4, plt 41. Ascites 01/13/2013 10/19/2019 Overview: Patient denies known history of SBP. Denies current abdominal tenderness, and no large volume ascites with need for paracentesis 02/06/2013. Plan: - ? Diuretics - will D/W nephrology Cirrhosis of liver 1 documented as of this encounter (statuses as of 07/19/2023) [facility]04-27-2022 History of Past illness Narrative* Problem Noted Date Diagnosed Date Resolved Date Hyperkalemia 12/13/2021 12/18/2021 Last Assessment & Plan: Assessment: Improved, K+ is 4.9 on today's labs. Hyperkalemic trends with recent BMPs. PLAN: - Continuous tele monitoring ordered - Daily BMPs Ileus, postoperative 12/13/2021 022 Last Assessment & Plan: Assessment: POD3 ventral hernia repair with mesh. Now with bowel function. No nausea, vomiting. PLAN: - D/C NGT. - Advance to [facility] - Continue to get OOB Ventral hernia, recurrent 12/12/2021 Metabolic acidosis 11/25/2019 Medication management 05/18/20192019 Hyperkalemia 04/24/2019 10/25/2020 Last Assessment & Plan: K 5.2 at time of discharge, likely elevated in setting of ANSIR on CKD Patient also stated that he was eating potatoes with every meal because that was what they were giving him He has had hyperkalemia in the past PLAN: - Switched to renal diet - Educated patient on what foods to avoid - Recheck BMP on Saturday at PCP follow up appointment for monitoring of K Transaminitis 03/25/2019 03/27/2019 Pain in left foot 02/20/2019 10/25/2020 CKD (chronic kidney disease) stage 3, GFR 30-59 ml/min 06/19/2016 10/25/2020 Overview: Seeing Dr. 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 Plan: Continue pantoprazole 40mg qday. Last Assessment & Plan: Assessment: h/o, no longer taking rx SUMMARY 01/13/2013 10/19/2019 Overview: Mr. 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 Mr. Sanon and his describe two normal bowel movements earlier in the day, and 3 episodes of blood in the stool since about 2 PM this afternoon. He describes the first episode as having fresh bright red blood larger in volume than several tablespoons which also mixed into the stool and toilet water. He had another episode earlier this evening, and a third episode upon admission to [facility] which was much less blood and mostly mixed into the stool. He denies hemoptysis, hematemesis, or other site of bleeding. Upon discharge 02/04/13 his hemoglobin was 8.6. In the ED tonight, Hgb is 8.4, Hct 24.4, plt 41. Ascites 01/13/2013 10/19/2019 Overview: Patient denies known history of SBP. Denies current abdominal tenderness, and no large volume ascites with need for paracentesis 02/06/2013. Plan: - ? Diuretics - will D/W nephrology Cirrhosis of liver 1 documented as of this encounter (statuses as of 07/24/2023) [facility]04-27-2022 History of Past illness Narrative* Problem Noted Date Diagnosed Date Resolved Date Hyperkalemia 12/13/2021 12/18/2021 Last Assessment & Plan: Assessment: Improved, K+ is 4.9 on today's labs. Hyperkalemic trends with recent BMPs. PLAN: - Continuous tele monitoring ordered - Daily BMPs Ileus, postoperative 12/13/2021 022 Last Assessment & Plan: Assessment: POD3 ventral hernia repair with mesh. Now with bowel function. No nausea, vomiting. PLAN: - D/C NGT. - Advance to [facility] - Continue to get OOB Ventral hernia, recurrent 12/12/2021 Metabolic acidosis 11/25/2019 1 Medication management 05/18/20192019 Hyperkalemia 04/24/2019 10/25/2020 Last Assessment & Plan: K 5.2 at time of discharge, likely elevated in setting of NASIR on CKD Patient also stated that he was eating potatoes with every meal because that was what they were giving him He has had hyperkalemia in the past PLAN: - Switched to renal diet - Educated patient on what foods to avoid - Recheck BMP on Saturday at PCP follow up appointment for monitoring of K Transaminitis 03/25/2019 03/27/2019 Pain in left foot 02/20/2019 10/25/2020 CKD (chronic kidney disease) stage 3, GFR 30-59 ml/min 06/19/2016 10/25/2020 Overview: Seeing Dr. 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 Plan: Continue pantoprazole 40mg qday. Last Assessment & Plan: Assessment: h/o, no longer taking rx SUMMARY 01/13/2013 10/19/2019 Overview: Mr. 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 Mr. Sanon and his describe two normal bowel movements earlier in the day, and 3 episodes of blood in the stool since about 2 PM this afternoon. He describes the first episode as having fresh bright red blood larger in volume than several tablespoons which also mixed into the stool and toilet water. He had another episode earlier this evening, and a third episode upon admission to [facility] which was much less blood and mostly mixed into the stool. He denies hemoptysis, hematemesis, or other site of bleeding. Upon discharge 02/04/13 his hemoglobin was 8.6. In the ED tonight, Hgb is 8.4, Hct 24.4, plt 41. Ascites 01/13/2013 10/19/2019 Overview: Patient denies known history of SBP. Denies current abdominal tenderness, and no large volume ascites with need for paracentesis 02/06/2013. Plan: - ? Diuretics - will D/W nephrology Cirrhosis of liver 1 documented as of this encounter (statuses as of 07/25/2023) [facility]04-27-2022 History of Past illness Narrative* Problem Noted Date Diagnosed Date Resolved Date Hyperkalemia 12/13/2021 12/18/2021 Last Assessment & Plan: Assessment: Improved, K+ is 4.9 on today's labs. Hyperkalemic trends with recent BMPs. PLAN: - Continuous tele monitoring ordered - Daily BMPs Ileus, postoperative 12/13/2021 022 Last Assessment & Plan: Assessment: POD3 ventral hernia repair with mesh. Now with bowel function. No nausea, vomiting. PLAN: - D/C NGT. - Advance to [facility] - Continue to get OOB Ventral hernia, recurrent 12/12/2021 Metabolic acidosis 11/25/2019 1 Medication management 05/18/20192019 Hyperkalemia 04/24/2019 10/25/2020 Last Assessment & Plan: K 5.2 at time of discharge, likely elevated in setting of NASIR on CKD Patient also stated that he was eating potatoes with every meal because that was what they were giving him He has had hyperkalemia in the past PLAN: - Switched to renal diet - Educated patient on what foods to avoid - Recheck BMP on Saturday at PCP follow up appointment for monitoring of K Transaminitis 03/25/2019 03/27/2019 Pain in left foot 02/20/2019 10/25/2020 CKD (chronic kidney disease) stage 3, GFR 30-59 ml/min 06/19/2016 10/25/2020 Overview: Seeing Dr. 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 Plan: Continue pantoprazole 40mg qday. Last Assessment & Plan: Assessment: h/o, no longer taking rx SUMMARY 01/13/2013 10/19/2019 Overview: Mr. 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 Mr. Sanon and his describe two normal bowel movements earlier in the day, and 3 episodes of blood in the stool since about 2 PM this afternoon. He describes the first episode as having fresh bright red blood larger in volume than several tablespoons which also mixed into the stool and toilet water. He had another episode earlier this evening, and a third episode upon admission to [facility] which was much less blood and mostly mixed into the stool. He denies hemoptysis, hematemesis, or other site of bleeding. Upon discharge 02/04/13 his hemoglobin was 8.6. In the ED tonight, Hgb is 8.4, Hct 24.4, plt 41. Ascites 01/13/2013 10/19/2019 Overview: Patient denies known history of SBP. Denies current abdominal tenderness, and no large volume ascites with need for paracentesis 02/06/2013. Plan: - ? Diuretics - will D/W nephrology Cirrhosis of liver 1 documented as of this encounter (statuses as of 07/26/2023) [facility]04-27-[facility]22 History of Past illness Narrative* Problem Noted Date Diagnosed Date Resolved Date Hyperkalemia 12/13/2021 12/18/2021 Last Assessment & Plan: Assessment: Improved, K+ is 4.9 on today's labs. Hyperkalemic trends with recent BMPs. PLAN: - Continuous tele monitoring ordered - Daily BMPs Ileus, postoperative 12/13/2021 022 Last Assessment & Plan: Assessment: POD3 ventral hernia repair with mesh. Now with bowel function. No nausea, vomiting. PLAN: - D/C NGT. - Advance to [facility] - Continue to get OOB Ventral hernia, recurrent 12/12/2021 Metabolic acidosis 11/25/2019 Medication management 05/18/20192019 Hyperkalemia 04/24/2019 10/25/2020 Last Assessment & Plan: K 5.2 at time of discharge, likely elevated in setting of NASIR on CKD Patient also stated that he was eating potatoes with every meal because that was what they were giving him He has had hyperkalemia in the past PLAN: - Switched to renal diet - Educated patient on what foods to avoid - Recheck BMP on Saturday at PCP follow up appointment for monitoring of K Transaminitis 03/25/2019 03/27/2019 Pain in left foot 02/20/2019 10/25/2020 CKD (chronic kidney disease) stage 3, GFR 30-59 ml/min 06/19/2016 10/25/2020 Overview: Seeing Dr. 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 Plan: Continue pantoprazole 40mg qday. Last Assessment & Plan: Assessment: h/o, no longer taking rx SUMMARY 01/13/2013 10/19/2019 Overview: Mr. 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 Mr. Sanon and his describe two normal bowel movements earlier in the day, and 3 episodes of blood in the stool since about 2 PM this afternoon. He describes the first episode as having fresh bright red blood larger in volume than several tablespoons which also mixed into the stool and toilet water. He had another episode earlier this evening, and a third episode upon admission to [facility] which was much less blood and mostly mixed into the stool. He denies hemoptysis, hematemesis, or other site of bleeding. Upon discharge 02/04/13 his hemoglobin was 8.6. In the ED tonight, Hgb is 8.4, Hct 24.4, plt 41. Ascites 01/13/2013 10/19/2019 Overview: Patient denies known history of SBP. Denies current abdominal tenderness, and no large volume ascites with need for paracentesis 02/06/2013. Plan: - ? Diuretics - will D/W nephrology Cirrhosis of liver 1 documented as of this encounter (statuses as of 08/01/2023) [facility]04-25-2022 Miscellaneous Notes* Telephone Encounter - Terra Dang MA - 12/11/2021 11:06 AM EDT Upon review and chart. Patient has a refill prescription completed and sent to pharmacy on 11/23/2021 30 tablet 2 refills. Terra Dang MA * Telephone Encounter - Neli Mcwilliams Pss - 12/11/2021 9:17 AM EDT Patient has been identified by name and date of : Yes Pending Prescriptions Disp Refills FUROSEMIDE 20 MG TABLET 30 tablet 2 Sig: Take 1 tablet by mouth once daily. JAMES: No RX INSTRUCTIONS: Patient aware RX will be sent to pharmacy. No need to notify patient. Neli Mcwilliams Pss documented in [facility] Miscellaneous Notes* Telephone Encounter - Tracy Ferguson RN - 11/30/2021 10:40 AM EDT Spoke to pt's via telephone. Type and screen was not drawn on the day of pre op testing. Pt will have drawn at [facility] lab on 12/09/21. States she knows they have Saturday lab hours. Tracy Ferguson RN November 30, 2021 10:41 AM documented in this [facility]Mer[facility] Instructions* Patient Instructions* Rosey Henley APRN.DIRECTOR SOFTWARE QUALITY ASSURANCE - 11/27/2021 8:49 AM EDT PATIENT PREOPERATIVE INSTRUCTIONS José Antonio Way MD has scheduled you for your procedure at this surgery center: [facility] [place] Scheduling Office: [phone] --[address] [place] [address]. Please read below carefully for your personalized instructions. Dietary Restrictions: - No solid food after midnight. - You may have 12 ounces of clear liquids (water, clear juices such as apple juice or gatorade, carbonated beverages, clear tea, black coffee, jello) until 2 hours before scheduled arrival at facility. No red/purple coloring and no creamer/sugar Medications: Unless instructed differently below, stay on all of your medications until your surgery. Approved medications to take the morning of surgery with a sip of water: Atorvastatin, Carvedilol, Diltiazem, Gabapentin, Sodium Bicarbonate, Tacrolimus NO LASIX DAY OF SURGERY If you take any medications for erectile dysfunction-Cialis (Tadalafil), Levitra, Staxyn (Vardenafil) Viagra (Sildenenafil please do not take these for 48 hours before surgery. If you start any new medications after today's visit, please contact the surgeon's office. Blood Thinning Medications: - Stop NSAIDS (Ibuprofen, Advil, Aleve, Motrin, Celebrex, Mobic, etc.) 7 days before surgery, as directed by your surgeon. - Stop Aspirin 7 days before surgery, as directed by your surgeon. - Stop Vitamin E, ALL multi-vitamins, herbals and dietary supplements 7 days before surgery. - You may take Tylenol (Acetaminophen) or any of your pain medications that do not contain aspirin or NSAIDS as needed. Important Reminders: - If you use CPAP/BIPAP, bring the machine with you to the surgery center. - If you are prescribed inhalers for breathing, continue using them. - Candy, mints, and tobacco products are NOT permitted the morning of surgery. - Hearing aids, dentures and glasses may be worn the morning of surgery. - NO jewelry, body piercings, makeup, hairpins or contacts are to be worn the day of surgery. If you develop symptoms such as a fever, cold, or flu, or have other changes to your health within TWO DAYS of scheduled surgery or the morning of surgery, please contact the surgery center above. Personal Belongings: -Please have photo ID and insurance cards. -If you do not have a copy of advance directives on file with us, please bring a copy with you on the day of surgery. - Leave ALL valuables and money at home or with family members. For Outpatient Procedures: - YOU MUST HAVE A RESPONSIBLE ALLIANCES CONSULTANT TAKE YOU HOME. A TECHNOLOGY SALES SPECIALIST OR MIXING MACHINE TENDER CANNOT BE MADE A RESPONSIBLE ALLIANCES CONSULTANT. - We recommend that a responsible person stays with you overnight to take care of you. - You cannot stay in a hotel alone after outpatient surgery. You will not be permitted to have yoursurgery, if you do not have someone to take care of you. Arrival Time for Surgery: - To obtain your arrival time for surgery, call your physician's office the day before your surgery. - If your surgery is scheduled for Saturday, call the Saturday before. Your surgeon s surgical scheduler will tell you what time to call the office. - If you have not reached the departmental surgical scheduler by 5 P.M., call [phone] after 5 P.M. the day before your surgery. Please be aware that emergency situations arise, which may delay or change your surgical time. If this happens, we will notify you as soon as possible and regret any inconvenience. If you already have an Advance Directive, please fax a copy to [phone] or email to for it to be added to your chart. If you do not have an Advance Directive, you can find the appropriate form and more information at [email or web address]. We recommend that youcomplete the Advance Directive form found on the website and bring it with you the day of your surgery. It can be witnessed and scanned into your chart that day. Rosey Henley APRN.CNP documented in this [facility]Mer[facility] History and physical note * Rosey Henley APRN.CNP - 11/27/2021 8:46 AM EDT HISTORY AND PHYSICAL EXAMINATION SERVICE DATE: 11/27/2021 SERVICE TIME: 8:46 AM PRIMARY CARE PHYSICIAN: Sanju Banerjee MD REASON FOR VISIT: Isaias Sanon is a 76 year old male who is scheduled for Procedure(s): COMPLEX REPAIR WOUND OF ABDOMEN 2.6 CM TO 7.5 CM (N/A) at the request of Dr. José Antonio Way for consultation. My final recommendation will be communicated back to the requesting physician by way of shared medical record or letter. 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 3b Chronic Kidney Disease, Without Long-Term Current Use of Insulin (Hcc) Proteinuria Chronic Pain of Both Ankles History of Deep Venous Thrombosis (Dvt) of Distal Vein of Right Lower Extremity [place] Filter in Place Ckd (Chronic Kidney Disease) Stage 4, Gfr 15-29 Ml/Min (Hcc) Secondary Hyperparathyroidism of Renal Origin (Hcc) History of Stroke Obesity, Class I, Bmi 30-34.9 Lupus Anticoagulant Syndrome (Hcc) Anemia of Renal Disease Hypertensive Kidney Disease With Stage 4 Chronic Kidney Disease (Hcc) Retinal Edema Thrombocytopenia (Hcc) Bilateral Leg Edema Chronic Lumbar Pain Medicare Annual Wellness Visit, Subsequent Prostate Disorder Dilation of Aorta ([facility]) Zuluaga (Dyspnea On Exertion) COVID-19 Immunization Status Overdue - COVID-19 VACCINE (4 - Booster for Pfizer series) Overdue since 08/10/2021 05/11/2021 Imm Admin: COVID-19 vaccine, age 12+ yr (PFIZER-BIONTECH - PURPLE TOP) 10/07/2020 Imm Admin: COVID-19 vaccine, age 12+ yr (PFIZER-BIONTECH - PURPLE TOP) 09/14/2020 Imm Admin: COVID-19 vaccine, age 12+ yr (PFIZER-BIONTECH - PURPLE TOP) CHIEF COMPLAINT: Pre-op exam HPI: JA is a 76 yo seen for PAC due to scheduled above surgery because of a symptomatic incisional hernia. 08/28/[address] HPI: Isaias Sanon is a 76 year old male with history of HTN, HLD, CKD stage III, OLTx (on Rapamune) for ESLD secondary to hemochromatosis in 2012, left basal ganglia hemorrhagic stroke in October 2019who presents with symptomatic incisional hernia. He was initially diagnosed with asymptomatic incisional hernia ~5 years ago, he was undergoing annual outpatient follow-up at [facility]. He has been having complaints of abdominal bloating, gas pain and nausea intermittently for 6-8 months, controlled with OTC medications. On 08/22/2021 he presented to the ED at [facility]SH with abdominal pain, nausea, emesis and was found to have an incarcerated hernia with small transition point on CT, had NG decompression. He was unable to be transferred to [facility]. Denies any current fevers, chills, abdominal pain, nausea, emesis, CP or SOB. He denies any change in bowel movements, has BM daily. Patient's baseline Creatinine 2-2.3, last lab value 2.84. Relevant previous operations include: OLTx in 2013 No history of Psychiatric Disorders or Opioid Use Partially dependent - right sided weakness since hemorrhagic stroke, patient able to ambulate with walker. Unknown Moderate (once/week) Immunosuppressants - other immunomodulators N/A REVIEW OF SYSTEMS: General: No weight loss, malaise or fevers. Neurological: +hx ICH Positive for: peripheral neuropathy (on rx) and strokes. Patient's stroke is with residual deficits. Negative for: cerebral palsy, CLOTHING BUSHELER tumor, dementia, headaches, hemiplegia, multiple sclerosis, Parkinson's disease, seizures and TIA. Respiratory: No history of current cough or dyspnea, or pneumonia in the past 6 weeks. No history of respiratory/pulmonary symptoms or problems. Cardiovascular: +ZULUAGA, pending f/u Positive for: anticoagulation therapy (ASA), CAD, DVT/PE (RLE, hx tony filter that has been removed), hyperlipidemia (on rx) and hypertension (on rx) Patient's last office visit with applicator sprayer, [facility], The following tests and/or procedures were performed: cardiac catheterization (pending) and cardiac stress test (recently abnormal). Negative for: chest pain, CHF, congenital heart defect, recent CT, murmur/valvular heart disease, open heart surgery and valve surgery. GI: SEE HPI. No history of GI symptoms or problems. No history of esophageal varices, recent ascites, or ETOH greater than 2 drinks per day. Positive for: liver disease (s/p liver transplant, following [facility] transplant team) : Positive for: renal failure (following [facility] nephrology). Patient's renal failure is chronic. Negative for: BPH, urinary incontinence, nephrolithiasis and urinary tract infection. Endocrine: Positive for: diabetes mellitus. Patient's diabetes mellitus is controlled by diet. Negative for: hypothyroidism. Hematology: Positive for: anemia (following hematology), anemia associated with chronic kidney disease, bruises/bleeds easily and chronic anti-coagulation/platelet meds. Patient is on anti-coagulation/platelet medication(s): Aspirin. Negative for: factor V Leiden, hemophilia and transfusion of at least 4 units within 72 hours priorto surgery. Oncology: No history of CA metastasis, chemo within 30 days, or radiotherapy within 90 days. No history of oncological symptoms or problems. Psych: No history of psychiatric symptoms or problems. Musculoskeletal: Positive for: back pain. Skin: +chronic skin changes in bilateral forearms PAST MEDICAL HISTORY Diagnosis Date Abdominal hernia without obstruction and without gangrene 06/19/2016 Amblyopia of left eye Anemia of renal disease 11/25/2019 Arthritis Ascites 01/13/2013 Patient denies known history of SBP. Denies current abdominal tenderness, and no large volume ascites with need for paracentesis 02/06/2013. Plan: - ? Diuretics - will D/W nephrology Balance problem 06/19/2016 Bilateral leg edema 01/22/2020 BRVO (branch retinal vein occlusion) OS Cataract of both eyes Chronic lumbar pain 06/16/2020 Chronic pain of both ankles 12/13/2017 CKD (chronic kidney disease) stage 3, GFR 30-59 ml/min ([facility]) 06/19/[address] Vipul Perez [facility] CKD (chronic kidney disease) stage 4, GFR 15-29 ml/min ([facility]) 06/19/[address] Vipul Perez [facility] Controlled type 2 diabetes mellitus with stage 4 chronic kidney disease, without long-term current use of insulin ([facility]) 10/23/2016 CRVO (central retinal vein occlusion) OD Dilation of aorta ([facility]) 10/12/2021 ZULUAGA (dyspnea on exertion) 10/12/2021 Duodenal ulcer 02/06/2013 Duodenal ulcers seen on EGD 01/31/13. Plan: Continue pantoprazole 40mg qday. Elevated prostate specific antigen (PSA) 10/19/2016 Normal 10/2017 with free PSA at 44% Essential hypertension 05/18/2014 11/08/2014: Home BP Cuff Validated. Home BP: 167/94 pulse 79. Office BP: 157/91 pulse 76. Gastroesophageal reflux disease without esophagitis 08/24/2015 GIB (gastrointestinal bleeding) 01/13/2013 Patient presents with three episodes of BRBPR onset around 2pm 02/06/2013. He endorses a history of BRBPR during an admission at [facility] in December 2012 for which he states no workup or colonoscopy wasperformed. During his last admission at [facility] he endorses having passed old blood , and underwent EGD 01/31/13 showing a small polyp/hypertrophied fold at the cardia, severe portal hypertensive gastropathy in the entire stomach, and multiple superficial duodenal ulcers. EGD EUS performed 02/03/13 showed several portal hypertensive gastropathy, and normal endoscopic ultrasound examination of the previous area of concern (polyp vs. gastric fold). He was started on PPI BID and discharged 02/04/13 at which time hemoglobin was 8.6. In the ED 02/06/13, Hgb is 8.4, Hct 24.4, plt 41. Last colonoscopy was 2 years ago per patient, and he reports normal findings to be repeated in 2014. Etiologies of current episode includes internal hemorrhoids (no external hemorrhoids seen on examination), diverticular bleeding, AVM, varice [place] filter in place 04/06/2019 History of alcohol abuse Quit 2011 History of cirrhosis of liver Secondary to alcohol abuse and hemochromatosis. Sees Dr. Doss (at [facility]): Secondary to alcohol abuse and hemochromatosis, currently on transplant list. MELD Score: 35 Plan: - continue homemedications: nadolol, norfloxacin, zinc, lactulose, rifaximin, folic acid. 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 Currently alert, oriented x3, no signs of decompensated encephalopathy. Plan: - continue home regimen of lactulose, rifaximin and zinc History of hemochromatosis 08/24/2015 Has not been an issue since liver transplant. Hyperbilirubinemia 01/13/2013 Hypertensive retinopathy mild ICH (intracerebral hemorrhage) (HCC) Imbalance 06/01/2014 Noted at PT eval on 05/31/2014. Incisional hernia 04/07/2014 Liver transplanted (HCC) 04/07/2014 Lupus anticoagulant syndrome (HCC) 10/28/2019 Medicare annual wellness visit, subsequent 05/18/2021 Medicare part B: Not able to find Last done: 05/18/2021 Mixed hyperlipidemia 06/23/2014 Obesity, Class I, BMI 30-34.9 10/27/2019 Osteopenia 11/26/2013 Other proteinuria 10/21/2017 Seeing renal Retinal edema Secondary hyperparathyroidism of renal origin (HCC) 10/19/2019 Thrombocytopenia (HCC) 05/18/2014 Vertigo 05/18/2014 PAST SURGICAL HISTORY Procedure Laterality Date APPENDECTOMY HX 02/15/2013 AVASTIN (BEVACIZUMAB) 1.25MG INTRAVITREAL INJECTION OD (RIGHT EYE) Right 01/12/16 last od AVASTIN (BEVACIZUMAB) 1.25MG INTRAVITREAL INJECTION OD (RIGHT EYE) Right 04/04/16 CHOLECYSTECTOMY HX 02/15/2013 COLONOSCOPY 02/08/2013 repeat 10 yrs EYLEA (AFLIBERCEPT) 2MG INTRAVITREAL INJECTION OD (RIGHT EYE) Right 04/07/14 #3 last intravitreal injection, Eylea OD FECAL OCCULT BLOOD TEST 09/13/2016 negative MIDLINE INSERTION/CONSULT 02/13/2013 PAST SURGICAL HISTORY OF Tooth extraction PAST SURGICAL HISTORY OF 02/15/2013 liver transplant PAST SURGICAL HISTORY OF 2003. vein stripping FAMILY HISTORY Problem Relation Age of Onset other (MVA) Mother killed other (mva) Father killed other (hemachromatosis) Sister of breast ca at age 75 No Known Problems Sister COPD Sister other (hemachromatosis) Brother does not have any liver problems other (Bone Cancer) Brother No Known Problems Brother No Known Problems Maternal Grandmother No Known Problems Maternal Grandfather No Known Problems Paternal Grandmother No Known Problems Paternal Grandfather No Ocular Disease No Family History nothing known of Anesthesia Problems No Family History Social History Tobacco Use Smoking status: Never Smoker Smokeless tobacco: Never Used Vaping Use Vaping Use: Never used Substance Use Topics Alcohol use: No Alcohol/week: 0.0 standard drinks Comment: last drink was in July 2012 Drug use: No Prior to Admission medications as of 11/27/21 0846 Medication Sig Last Dose Taking carvedilol (COREG) 25 mg tablet Take 1 tablet by mouth twice daily. Taking Yes furosemide (LASIX) 20 mg tablet Take 1 tablet by mouth once daily. Taking Yes magnesium/vitamin E/pyridoxine (VITAMIN B6-VITAMIN E-MAGNESIUM ORAL) Take 1 tablet by mouth once daily. Taking Yes gabapentin (NEURONTIN) 100 mg capsule Take 100 mg by mouth once daily. Taking Yes ibuprofen (MOTRIN) 800 mg tablet Take 800 mg by mouth as needed. Taking Yes tacrolimus IR (PROGRAF) 0.5 mg capsule Take 1 capsule by mouth twice daily. Taking Yes sodium bicarbonate 650 mg tablet TAKE 1 TABLET BY MOUTH TWICE DAILY DIRECTED Taking Yes azelastine (ASTELIN) 0.1% nasal spray Use 2 Sprays in each nostril twice daily. Patient taking differently: Use 2 Sprays in each nostril twice daily as needed. Taking Differently Yes atorvastatin (LIPITOR) 40 mg tablet Take 1 tablet by mouth daily at bedtime. Taking Yes dilTIAZem CD (CARDIZEM CD, CARTIA XT) 240 mg 24 hr capsule Take 1 capsule by mouth once daily. Taking Yes pyridoxine, vitamin B6, (VITAMIN B6) 100 mg tablet Take 1 tablet by mouth once daily. Taking Yes aspirin 81 mg chewable tablet Take 1 tablet by mouth once daily. Taking Yes Blood Pressure Monitor 1 Each twice daily. Patient taking differently: 1 Each twice daily as needed. Taking Differently Yes Cholecalciferol, Vitamin D3, 5,000 unit tab Take 1 tablet by mouth once daily. Taking Yes sirolimus (RAPAMUNE) 0.5 mg tablet Take 1 tablet by mouth once daily. [employer] PAP Patient not taking: Reported on 11/16/2021 Medication Comments documented by Jil Mcgraw RN on 02/06/2013 at 1948. Per pt no change in meds ALLERGIES Allergen Reactions Seasonal Allergies Cough Sneezing and watering eyes Objective PHYSICAL EXAM: General: alert and oriented (x3) and healthy appearance. Pertinent negatives noted - not distressed. Skin: normal color, no rash or lesions. HEENT: EOM intact and pupils equal round. Pertinent negatives noted - no carotid bruit. Cardiovascular: regular rate and rhythm, normal S1 and S2, no rub, murmurs, or gallop. Respiratory: normal breath sounds, no wheezes or crackles. No chest wall deformity or tenderness. Abdomen: soft. midline and left lower ventral hernia. Extremities: no deformity, no edema or tenderness, no joint swelling or clubbing. Neurological: normal cognition and motor skills. Gait normal. No weakness or sensory deficit. PAIN ASSESSMENT: VITALS: BP 128/58 Pulse 66 Temp (Src) 98.1 (Temporal) Resp 16 Ht 5' 7 (1.70m) Wt 200 lb (90.7kg) SpO2 97% BMI 31.32 kg/(m^2). Diagnostic tests reviewed for today's visit: Lab Value Units Date High Low HB 9.6 g/dL 11/21/2021 17.0 13.0 HB 9.5 g/dL 10/07/2021 17.0 13.0 HCT 30.9 % 11/21/2021 51.0 39.0 HCT 30.3 % 10/07/2021 51.0 39.0 WBC 5.94 k/uL 11/21/2021 11.00 3.70 WBC 6.92 k/uL 10/07/2021 11.00 3.70 PLT 126 k/uL 11/21/2021 400 150 PLT 159 k/uL 10/07/2021 400 150 NA 139 mmol/L 11/21/2021 144 136 NA 137 mmol/L 10/07/2021 144 136 K 5.3 mmol/L 11/21/2021 5.1 3.7 K 5.8 mmol/L 10/07/2021 5.1 3.7 GLUC 125 mg/dL 11/21/2021 99 74 GLUC 129 mg/dL 10/07/2021 99 74 BUN 59 mg/dL 11/21/2021 24 9 BUN 43 mg/dL 10/07/2021 24 9 CREAT 2.87 mg/dL 11/21/2021 1.22 0.73 CREAT 2.79 mg/dL 10/07/2021 1.22 0.73 PTSEC No results within date range. INR No results within date range. APTT No results within date range. ALT 27 U/L 11/21/2021 54 10 ALT 18 U/L 10/07/2021 54 10 AST 19 U/L 11/21/2021 40 14 AST 18 U/L 10/07/2021 40 14 TBILI 0.4 mg/dL 11/21/2021 1.3 0.2 TBILI 0.4 mg/dL 10/07/2021 1.3 0.2 TSH 1.760 uU/mL 06/17/2021 4.200 0.270 Lab Value Units Date High Low HCGQT No results within date range. UHCG No results within date range. HCG, BODY* No results within date range. Lab Value Units Date High Low ABORHD O POSI* no uni* 10/11/2021 ABSCREEN NEG no uni* 10/11/2021 Hemoglobin A1C (%) Date Value 11/21/2021 6.2 06/17/2021 7.0 11/17/2020 7.0 07/19/2020 6.6 10/19/2019 6.7 04/06/2019 6.4 Recent Results (from the past 8760 hour(s)) ECG COMPLETE Collection Time: 10/26/21 9:37 AM Result Value Ventricular Rate 65 Atrial Rate 65 P-R Interval 206 QRS Duration 84 QT Interval 434 QTC Calculation (Bazett) 451 Calculated P Belmond 32 Calculated R Belmond 12 Calculated T Belmond 62 Impression NORMAL SINUS RHYTHM NORMAL ECG Confirmed by JONAH DAWSON MD ([id number]) on 10/27/2021 8:09:46 AM Recent Results (from the past 31702 hour(s)) ECHO Collection Time: 11/15/21 9:18 AM Impression CONCLUSIONS: - Exam indication: Shortness of Breath - The left ventricle is normal in size. There is mild concentric left ventricular hypertrophy. Left ventricular systolic function is normal. EF = 58 5% (2D biplane) Grade II left ventricular diastolic dysfunction. - The right ventricle is normal in size. Right ventricular systolic function is normal. - The left atrial cavity is severely dilated. - The visualized aorta is borderline dilated with a maximal dimension of 3.8 cm. - There is moderate mitral annular calcification observed posterior. There is mild (1+) mitral valve regurgitation. - Aortic sclerosis with no stenosis. - Exam was compared with the prior echocardiographic exam performed on 10/27/2019. Evidence of elevated left sided filling pressures now present. Assessment Type 2 diabetes mellitus with stage 3b chronic kidney disease, without long-term current use of insulin (HCC) Assessment: diet controlled, on rx for neuropathy Hemoglobin A1C (%) Date Value 11/21/2021 6.2 06/17/2021 7.0 Essential hypertension Assessment: controlled on rx Last 14 BP Last 14 Encounter BP Readings: Date: BP: 11/27/2021 128/58 11/16/2021 130/62 10/26/2021 165/79 10/11/2021 141/64 08/28/2021 137/62 07/03/2021 130/78 06/17/2021 124/76 05/18/2021 152/84 12/22/2020 142/68 12/08/2020 152/69 10/27/2020 122/64 04/29/2020 134/68 01/22/2020 134/71 01/12/2020 141/71 Gastroesophageal reflux disease without esophagitis Assessment: controlled with otc rx as needed History of alcohol abuse Assessment: quit 2011 History of cirrhosis of liver Assessment: h/o liver cirrhosis and hemachromatosis s/p liver transplant 2012, controlled on rx, following [facility] transplant History of encephalopathy Assessment: hx secondary to cirrhosis Mixed hyperlipidemia Assessment: c/w statin History of hemochromatosis Assessment: resolved with liver transplant Chronic lumbar pain Assessment: following pain management Dr. Cedeno Anemia of renal disease Assessment: stable Select Accept to remove transfusion orders -OR- Select Acknowledge Reason and Accept Hemoglobin (g/dL) Date Value 11/21/2021 9.6 11/06/2021 9.4 10/23/2021 9.5 10/07/2021 9.5 09/25/2021 10.2 09/11/2021 9.6 CKD (chronic kidney disease) stage 4, GFR 15-29 ml/min (HCC) Assessment: following nephrology Creatinine Date Value Ref Range Status 11/21/2021 2.87 (H) 0.73 - 1.22 mg/dL Final 11/06/2021 2.68 (H) 0.73 - 1.22 mg/dL Final 10/23/2021 2.78 (H) 0.73 - 1.22 mg/dL Final 10/07/2021 2.79 (H) 0.73 - 1.22 mg/dL Final Dilation of aorta (HCC) Assessment: maximal dimension 4.0cm on echo 10/2019 ZULUAGA (dyspnea on exertion) Assessment: abnormal stress test, pending f/u with applicator sprayer 11/29/2021 and heart cath likely, reviewed with pt dependent on results and if any intervention is needed, clearance dependent on this History of deep venous thrombosis (DVT) of distal vein of right lower extremity Assessment: h/o DVT 2018, +lupus anticoagulant positive, on daily ASA History of stroke Assessment: h/o CVA due to ICH in 2019, mild right side weakness, daily ASA Hypertensive kidney disease with stage 4 chronic kidney disease (HCC) Assessment: Creatinine Date Value Ref Range Status 11/21/2021 2.87 (H) 0.73 - 1.22 mg/dL Final 11/06/2021 2.68 (H) 0.73 - 1.22 mg/dL Final 10/23/2021 2.78 (H) 0.73 - 1.22 mg/dL Final 10/07/2021 2.79 (H) 0.73 - 1.22 mg/dL Final Lupus anticoagulant syndrome (HCC) Assessment: hx, unprovoked RLE DVT 04/2019, s/p IVC filter and removal, daily ASA therapy Prostate disorder Assessment: no current tx Secondary hyperparathyroidism of renal origin (HCC) Assessment:hx Thrombocytopenia (HCC) Assessment: chronic Platelet Count Date Value Ref Range Status 11/21/2021 126 (L) 150 - 400 k/uL Final Obesity, Class I, BMI 30-34.9 Assessment: Body mass index is 31.32 kg/m . METS: Walk indoors, such as around the house (1.75 METs) Do light work around the house, such as dusting or washing dishes (2.70 METs) Take care of self; that is eating, dressing, bathing, using the toilet (2.75 METs) DASI Score: 7.2; Patient denies any chest pain or undue shortness of breath with the above physicalactivity. Clinical Frailty Scale: 4. Apparently vulnerable ASA Class: 3 ANESTHESIA FINDINGS: Intubation History: No history of difficult intubation Significant Anesthesia Considerations: none Airway History: No history of difficult airway [id number] Score: Age: >=75 Sex: Male CHF history: No Hypertension history: Yes Stroke/TIA/thromboembolism history: Yes Vascular disease history: Yes Diabetes history: Yes Score: 7 I - PHYSICAL EVALUATION AIRWAY Tracheostomy tube not present Mallampati: III. TM distance: >3 FB. Neck ROM: limited flexion and extension. Mouth opening: adequate. Short neck: no. Thick neck: yes Additional comments: +TMJ dysfunction bilaterally. DENTAL Dental findings: teeth intact. II - ANESTHESIA PLAN ASA Score: 3 Anesthetic Plan: other Anesthetic plan additional comments: *PACC/TCI - anesthesia choice. Informed Consent Anesthetic risks, benefits, alternatives, personnel and consent discussed: yes. Patient / Responsible Democrat agrees to proceed: yes Patient / Surrogate agrees to blood products: Yes Prepared for Surgery: optimally prepared for surgery, pending (see comment). Pending f/u with cardiology scheduled 11/29/2021 with possible heart cath following at later date CONSULTS: The following consults have been initiated at this time: cardiology. The Following Tests/Procedures Have Been Initiated: No orders of the defined types were placed in this encounter. Planned Anesthetic: other anesthesia choice Instructions Given to Patient: Instructions located in the after visit summary. Patient given verbal and written preop instructions and voices comprehension and compliance. SIGNATURE: Rosey Henley APRN.CNP PATIENT NAME: Isaias Sanon DATE: November 27, 2021 TIME: 8:46 AM PAGER/CONTACT #: documented in this encounterMer[facility]22 Miscellaneous Notes* Telephone Encounter - Martina Schuster RN - 11/24/2021 11:58 AM EDT Addressed in other Phone Encounter. Martina Schuster RN * Telephone Encounter - Lucía Daigle - 11/24/2021 9:31 AM EDT November 24, 2021 Patient Contact Number: [phone] (Brittani) Patient last seen within the last year: Yes Date of last office visit: 10/26/2021 Reason For Call: Patient is as some questions regarding surgery on 12/12/2021 to make sure he is okay to proceed with and is requesting to speak with nurse Physician: Jonah Graves MD Patient was informed that non-urgent calls may be returned within the next three business days. Yes Lucía Daigle documented in this encounterMer[facility]04-08-2022 Miscellaneous Notes* Telephone Encounter - Lori Norris Ma - 11/24/2021 8:09 AM EDT Patient was notified Lori Norris Ma * Telephone Encounter - Sanju Banerjee MD - 11/23/2021 8:57 PM EDT Let patient know A1c was good at 6.2%. Last time was 7%. documented in this encounterMer[facility]04-07-2022 Miscellaneous Notes* Telephone Encounter - Martina Schuster RN - 11/23/2021 5:11 PM EDT Called and spoke with patient's . Provided number for scheduling follow-up appointment. informed they live 2 hours away. Advised that a virtual visit would be acceptable, however if additional testing is needed, the patient may need to come back to [place] for these appointments prior to being cleared for surgery. verbalized understanding. No further questions or concerns at this time. Martina Schuster RN * Telephone Encounter - Martina Schuster RN - 11/23/2021 5:06 PM EDT ----- Message from Jonah Graves MD sent at 11/23/2021 8:03 AM EDT ----- Please arrange a follow-up appointment with this patient to review his cardiac testing. documented in this encounterMercy [facility]04-07-2022 Miscellaneous Notes* Telephone Encounter - Carmen Kayli Pss - 11/23/2021 10:52 AM EDT Patient has been identified by name and date of : Yes Pending Prescriptions Disp Refills CARVEDILOL 25 MG TABLET 60 tablet 5 Sig: Take 1 tablet by mouth twice daily. JAMES: No FUROSEMIDE 20 MG TABLET 30 tablet 2 Sig: Take 1 tablet by mouth once daily. JAMES: No JUSTINE-11/16/21 Labs-11/21/21 NOV-10/19/22 RX INSTRUCTIONS: Patient aware RX will be sent to pharmacy. No need to notify patient. Carmen Milan Pss documented in this encounterMer[facility]04-01-2022 Miscellaneous Notes* Telephone Encounter - Denice Love RN - 11/17/2021 1:25 PM EDT Patient returned call and given provider's message below and patient verbalized understanding. Anabelle Love RN * Telephone Encounter - Alivia Bauman LPN - 11/17/2021 12:31 PM EDT TC to pt. LM to call office, ask for triage nurse to get Rx update. Alivia Bauman LPN * Telephone Encounter - Sanju Banerjee MD - 11/17/2021 11:51 AM EDT Let patient know script sent. The following approved medication requests have been transmitted electronically. Signed Prescriptions Disp Refills azithromycin (ZITHROMAX Z-TRE) 250 mg tablet 6 tablet 0 Sig: Take 2 tablets day one, then, 1 tablet daily until gone. Authorizing Provider: SANJU BANERJEE MD * Telephone Encounter - Caroline Osman - 11/17/2021 8:13 AM EDT Isaias Sanon is calling Sanju Banerjee MD today to request a zpack that patient was told he wouldbe prescribed in his office visit yesterday. Patient would like prescription to [facility]. Please return call to patient when complete. No chief complaint on file. Patient has been identified by name and birthdate. Duration of symptoms: N/A Person calling: self Call patient at: on cell [phone] (home) [phone] (cell) Was an appointment scheduled: No Closing statement: Symptom Call: Thank you for [facility], your call is very important. A nurse will call in approximately 2-4 hours during business hours. If this is an emergency, please contact 911. Caroline Osman documented in this encounterMercy [facility]04-01-2022 Miscellaneous Notes* Telephone Encounter - Mariano Oden LPN - 11/17/2021 8:20 AM EDT Patient Brittani returned call and went over notes below from Dr Banerjee with understanding. She said he will plan to walk in to the lab sometime Saturday to get lab done. * Telephone Encounter - Noé Escobedo LPN - 11/17/2021 8:14 AM EDT Left message for pt to contact office. Noé Escobedo LPN * Telephone Encounter - Sanju Banerjee MD - 11/16/2021 8:43 PM EDT Let patient know the A1c we tried to do in the office failed due to a machine issue. I placed a order for a lab A1c if he can do in the next week. documented in this encounterMercy [facility]03-30-2022 History of Present illness Narrative* Roxann Giron RN - 11/15/2021 12:00 PM EDT RADIOLOGY SERVICE PROGRESS NOTE SERVICE DATE: 11/15/2021 SERVICE TIME: 11:17 AM PATIENT IDENTITY VERIFICATION COMPLETED USING TWO (2) STANDARD IDENTIFIERS: Name and Date of confirmed by patient verbally and Name and Date of confirmed by identification band PATIENT GENDER DATA: male ALLERGIES: Reviewed and unchanged MEDICATIONS REVIEWED BY: Employee Communications Specialist PROCEDURE TYPE: NM STRESS: 0.4 mg of Lexiscan was administered IV at 1117 by Roxann Giron RN. Reversal agent used: None. IV SITE: Ambulatory: A Saline lock was inserted per protocol POST EXAM PIV STATUS: Discontinued PATIENT DISCHARGED TO: Ambulatory patient, left [place] department area. A Diagnostic radioactive procedure has taken place, with no further precautions necessary other than routine body substance precautions. More information regarding radiation safety can be found usingthis link: [email or web address]%[email or web address]%20Medicine%[email or web address] SIGNATURE: Roxann Giron RN PATIENT NAME: Isaias Sanon DATE: November 15, 2021 TIME: 11:17 AM PAGER/CONTACT #: [phone] * RT Emil(R) - 11/15/2021 12:00 PM EDT RADIOLOGY SERVICE PROGRESS NOTE SERVICE DATE: 11/15/2021 SERVICE TIME: 10:24 AM PATIENT IDENTITY VERIFICATION COMPLETED USING TWO (2) STANDARD IDENTIFIERS: Name and Date of confirmed by patient verbally FALL SCREENING: Has the patient had 2 falls in the last year or 1 fall with injury or currently using an Ambulatory Assistive Device (Walker, Cane, Wheelchair, Crutches, etc.)? Yes, Patient High Riskfor Falls What interventions were put in place to prevent falls during this visit? Yellow Falls Risk Wristband Applied and Instructed Patient to Call for Help if Needed PATIENT GENDER DATA: .male : No ALLERGIES: Reviewed and unchanged MEDICATIONS REVIEWED: Yes PATIENT RELEVANT IMPLANT DATA REVIEWED: Not Applicable CREATININE: Creatinine Date Value Ref Range Status 11/06/2021 2.68 (H) 0.73 - 1.22 mg/dL Final 10/23/2021 2.78 (H) 0.73 - 1.22 mg/dL Final 10/07/2021 2.79 (H) 0.73 - 1.22 mg/dL Final Estimated Glomerular Filtration Rate Date Value Ref Range Status 11/06/2021 24 (L) >=60 mL/min/1.73m Final Comment: Estimated Glomerular Filtration Rate (eGFR) is calculated using the 2020 CKD-EPI creatinine equation. This equation utilizes serum creatinine, sex, and age as parameters. The creatinine assay has traceable calibration to isotope dilution- mass spectrometry. Refer to KDIGO guidelines for clinical interpretation. In patients with unstable renal function, e.g. those with acute kidney injury, the eGFRmay not accurately reflect actual GFR. eGFR- Date Value Ref Range Status 10/07/2021 27 Final P.O.C.T. RESULTS: N/A November 15, [address] PERFORMED: No IV SITE: Ambulatory: A peripheral IV was started in the Left antecubital site with a Angio cath: 22gauge. POST EXAM PIV STATUS: Discontinued PROCEDURE TYPE: TX Stress: 13.7mCi [id number] was administered IV for Rest Imaging at 10:18AM by.RT Ariella(R). 31.7 mCi [id number] was administered IV for Stress Imaging at 1117 by RT Emil(Jolene) . ADMINISTRATION TIME: PATIENT DISCHARGED TO: Ambulatory patient, left [place] department area. A Diagnostic radioactive procedure has taken place, with no further precautions necessary other than routine body substance precautions. More information regarding radiation safety can be found usingthis link: [email or web address] 20Diagnostic%20Nuclear%20Medicine%[email or web address] SIGNATURE: RT Ariella(R) PATIENT NAME: Isaias Sanon DATE: November 15, 2021 TIME: 10:24 AM PAGER/CONTACT #: documented in this encounterMercy Health [facility]02-24-2022 Miscellaneous Notes* Telephone Encounter - Irina Alamo PA-C - 10/12/2021 2:[address], I evaluated Mr. Isaias Sanon in [facility] yesterday. He is scheduled for an abdominal hernia repair on 10/19/21. He needs to see cardiology prior to surgery for workup of SOB and possible CHF. The first available cardiology appointment we were able to make is 10/26. Please let me know if I can assist in any way. Thanks, Irina Alamo PA-C PACC documented in this encounterMercy [facility]11-15-2021 History of Present illness Narrative* Bianca Vaz RT(R) - 07/03/2021 2:10 PM EST Radiology Service Progress Note PATIENT NAME: Isaias Sanon DATE OF SERVICE: July 03, 2021 TIME: 2:11 PM PATIENT IDENTITY VERIFICATION COMPLETED USING TWO (2) IDENTIFIERS: Name and Date of confirmedby patient verbally. FALL SCREENING: Has the patient had 2 falls in the last year or 1 fall with injury or currently using an Ambulatory Assistive Device (Walker, Cane, Wheelchair, Crutches, etc.)? Yes, Patient High Riskfor Falls What interventions were put in place to prevent falls during this visit? Offered Assistance with Transfers/Clothing and Instructed Patient to Remain Seated (Not on Exam Table) Until Exam PATIENT GENDER DATA: Male PATIENT RELEVANT IMPLANT DATA REVIEWED: Not Applicable RADIOLOGY DEPARTMENT: General X-ray: Exam(s) Completed: Chest X-Ray PERIPHERAL IV DATA: Not applicable SIGNED BY: RT Paula(R) July 03, 2021 2:11 PM documented in this encounterMercy [facility]10-30-2021 History of Present illness Narrative* Thomas Workman RT(R) - 06/17/2021 10:50 AM EDT Radiology Service Progress Note PATIENT NAME: Isaias Sanon DATE OF SERVICE: June 17, 2021 TIME: 10:50 AM PATIENT IDENTITY VERIFICATION COMPLETED USING TWO (2) IDENTIFIERS: Name and Date of confirmedby patient verbally. FALL SCREENING: Has the patient had 2 falls in the last year or 1 fall with injury or currently using an Ambulatory Assistive Device (Walker, Cane, Wheelchair, Crutches, etc.)? Yes, Patient High Riskfor Falls What interventions were put in place to prevent falls during this visit? Increased Observations by Caregivers and Pt. had a cane and spouce with him for support PATIENT GENDER DATA: Male PATIENT RELEVANT IMPLANT DATA REVIEWED: Not Applicable RADIOLOGY DEPARTMENT: General X-ray: Exam(s) Completed: Chest X-Ray PERIPHERAL IV DATA: Not applicable SIGNED BY: RT Jeremiah(R) June 17, 2021 10:50 AM documented in this encounterMercy [facility]10-26-2021 History of Present illness Narrative* Susanne Mtz LPN - 06/13/2021 10:35 AM EDT Manual Readin/74 Pulse: 76 MARIO BP average 114/69 #1 113/70 P 62 #2 117/70 P 62 #3 114/70 P 74 #4 115/62 P 62 #5 113/71 P 71 #6 113/70 P 62 O2 with visit 97% Reason for blood pressure check - Last BP elevated Patient is: Taking medication as prescribed Yes Took medication today Yes If no, date medication last taken PM medications taken 06/12/2021 Experiencing side effects No Recommendations Continue taking medications as prescribed Follow-up Yes Pt has been identified by name and birthdate: Yes Allergies reviewed: Yes Latex allergy: no. Medication - prescribed and OTC reviewed and updated: Yes Do you need any prescription refills prior to your next visit: Yes Health Maintenance: Reviewed and not up to date and provider notified Patient reported x2 cups of coffee prior to visit, denied smoking, exposure, alert, oriented at time of visit. Pt requested refill sodium bicarbonate 650 mg, ran out approx two weeks prior, reported weakness, fatigue with visit. Susanne Mtz LPN documented in this encounterMercy [facility]04-08-2020 History of Past illness Narrative* Problem Noted Date Resolved Date Metabolic acidosis 11/25/2019 10/25/2020 Medication management 05/18/2019 10/19/2019 Hyperkalemia 04/24/2019 10/25/2020 Last Assessment & Plan: K 5.2 at time of discharge, likely elevated in setting of NASIR on CKD Patient also stated that he was eating potatoes with every meal because that was what they were giving him He has had hyperkalemia in the past PLAN: - Switched to renal diet - Educated patient on what foods to avoid - Recheck BMP on Saturday at PCP follow up appointment for monitoring of K Transaminitis 03/25/2019 03/27/2019 Pain in left foot 02/20/2019 10/25/2020 CKD (chronic kidney disease) stage 3, GFR 30-59 ml/min 06/19/2016 10/25/2020 Overview: Seeing Dr. 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 Plan: Continue pantoprazole 40mg qday. Last Assessment & Plan: Assessment: h/o, no longer taking rx SUMMARY 01/13/2013 10/19/2019 Overview: Mr. 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 Mr. Sanon and his describe two normal bowel movements earlier in the day, and 3 episodes of blood in the stool since about 2 PM this afternoon. He describes the first episode as having fresh bright red blood larger in volume than several tablespoons which also mixed into the stool and toilet water. He had another episode earlier this evening, and a third episode upon admission to [facility] which was much less blood and mostly mixed into the stool. He denies hemoptysis, hematemesis, or other site of bleeding. Upon discharge 02/04/13 his hemoglobin was 8.6. In the ED tonight, Hgb is 8.4, Hct 24.4, plt 41. Ascites 01/13/2013 10/19/2019 Overview: Patient denies known history of SBP. Denies current abdominal tenderness, and no large volume ascites with need for paracentesis 02/06/2013. Plan: - ? Diuretics - will D/W nephrology Cirrhosis of liver 10/25/2020 documented as of this encounter (statuses as of 11/16/2021) [facility] History of Past illness Narrative* Problem Noted Date Resolved Date Metabolic acidosis 11/25/2019 10/25/2020 Medication management 05/18/2019 10/19/2019 Hyperkalemia 04/24/2019 10/25/2020 Last Assessment & Plan: K 5.2 at time of discharge, likely elevated in setting of NASIR on CKD Patient also stated that he was eating potatoes with every meal because that was what they were giving him He has had hyperkalemia in the past PLAN: - Switched to renal diet - Educated patient on what foods to avoid - Recheck BMP on Saturday at PCP follow up appointment for monitoring of K Transaminitis 03/25/2019 03/27/2019 Pain in left foot 02/20/2019 10/25/2020 CKD (chronic kidney disease) stage 3, GFR 30-59 ml/min 06/19/2016 10/25/2020 Overview: Seeing Dr. 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 Plan: Continue pantoprazole 40mg qday. Last Assessment & Plan: Assessment: h/o, no longer taking rx SUMMARY 01/13/2013 10/19/2019 Overview: Mr. 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 Mr. Sanon and his describe two normal bowel movements earlier in the day, and 3 episodes of blood in the stool since about 2 PM this afternoon. He describes the first episode as having fresh bright red blood larger in volume than several tablespoons which also mixed into the stool and toilet water. He had another episode earlier this evening, and a third episode upon admission to [facility] which was much less blood and mostly mixed into the stool. He denies hemoptysis, hematemesis, or other site of bleeding. Upon discharge 02/04/13 his hemoglobin was 8.6. In the ED tonight, Hgb is 8.4, Hct 24.4, plt 41. Ascites 01/13/2013 10/19/2019 Overview: Patient denies known history of SBP. Denies current abdominal tenderness, and no large volume ascites with need for paracentesis 02/06/2013. Plan: - ? Diuretics - will D/W nephrology Cirrhosis of liver 10/25/2020 documented as of this encounter (statuses as of 11/17/2021) [facility]04-08-2020 History of Past illness Narrative* Problem Noted Date Resolved Date Metabolic acidosis 11/25/2019 10/25/2020 Medication management 05/18/2019 10/19/2019 Hyperkalemia 04/24/2019 10/25/2020 Last Assessment & Plan: K 5.2 at time of discharge, likely elevated in setting of NASIR on CKD Patient also stated that he was eating potatoes with every meal because that was what they were giving him He has had hyperkalemia in the past PLAN: - Switched to renal diet - Educated patient on what foods to avoid - Recheck BMP on Saturday at PCP follow up appointment for monitoring of K Transaminitis 03/25/2019 03/27/2019 Pain in left foot 02/20/2019 10/25/2020 CKD (chronic kidney disease) stage 3, GFR 30-59 ml/min 06/19/2016 10/25/2020 Overview: Seeing Dr. 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 Plan: Continue pantoprazole 40mg qday. Last Assessment & Plan: Assessment: h/o, no longer taking rx SUMMARY 01/13/2013 10/19/2019 Overview: Mr. 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 Mr. Sanon and his describe two normal bowel movements earlier in the day, and 3 episodes of blood in the stool since about 2 PM this afternoon. He describes the first episode as having fresh bright red blood larger in volume than several tablespoons which also mixed into the stool and toilet water. He had another episode earlier this evening, and a third episode upon admission to [facility] which was much less blood and mostly mixed into the stool. He denies hemoptysis, hematemesis, or other site of bleeding. Upon discharge 02/04/13 his hemoglobin was 8.6. In the ED tonight, Hgb is 8.4, Hct 24.4, plt 41. Ascites 01/13/2013 10/19/2019 Overview: Patient denies known history of SBP. Denies current abdominal tenderness, and no large volume ascites with need for paracentesis 02/06/2013. Plan: - ? Diuretics - will D/W nephrology Cirrhosis of liver 10/25/2020 documented as of this encounter (statuses as of 11/17/2021) [facility]04-08-2020 History of Past illness Narrative* Problem Noted Date Resolved Date Metabolic acidosis 11/25/2019 10/25/2020 Medication management 05/18/2019 10/19/2019 Hyperkalemia 04/24/2019 10/25/2020 Last Assessment & Plan: K 5.2 at time of discharge, likely elevated in setting of NASIR on CKD Patient also stated that he was eating potatoes with every meal because that was what they were giving him He has had hyperkalemia in the past PLAN: - Switched to renal diet - Educated patient on what foods to avoid - Recheck BMP on Saturday at PCP follow up appointment for monitoring of K Transaminitis 03/25/2019 03/27/2019 Pain in left foot 02/20/2019 10/25/2020 CKD (chronic kidney disease) stage 3, GFR 30-59 ml/min 06/19/2016 10/25/2020 Overview: Seeing Dr. 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 Plan: Continue pantoprazole 40mg qday. Last Assessment & Plan: Assessment: h/o, no longer taking rx SUMMARY 01/13/2013 10/19/2019 Overview: Mr. 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 Mr. Sanon and his describe two normal bowel movements earlier in the day, and 3 episodes of blood in the stool since about 2 PM this afternoon. He describes the first episode as having fresh bright red blood larger in volume than several tablespoons which also mixed into the stool and toilet water. He had another episode earlier this evening, and a third episode upon admission to [facility] which was much less blood and mostly mixed into the stool. He denies hemoptysis, hematemesis, or other site of bleeding. Upon discharge 02/04/13 his hemoglobin was 8.6. In the ED tonight, Hgb is 8.4, Hct 24.4, plt 41. Ascites 01/13/2013 10/19/2019 Overview: Patient denies known history of SBP. Denies current abdominal tenderness, and no large volume ascites with need for paracentesis 02/06/2013. Plan: - ? Diuretics - will D/W nephrology Cirrhosis of liver 10/25/2020 documented as of this encounter (statuses as of 11/22/2021) [facility]04-08-2020 History of Past illness Narrative* Problem Noted Date Resolved Date Metabolic acidosis 11/25/2019 10/25/2020 Medication management 05/18/2019 10/19/2019 Hyperkalemia 04/24/2019 10/25/2020 Last Assessment & Plan: K 5.2 at time of discharge, likely elevated in setting of NASIR on CKD Patient also stated that he was eating potatoes with every meal because that was what they were giving him He has had hyperkalemia in the past PLAN: - Switched to renal diet - Educated patient on what foods to avoid - Recheck BMP on Saturday at PCP follow up appointment for monitoring of K Transaminitis 03/25/2019 03/27/2019 Pain in left foot 02/20/2019 10/25/2020 CKD (chronic kidney disease) stage 3, GFR 30-59 ml/min 06/19/2016 10/25/2020 Overview: Seeing Dr. 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 Plan: Continue pantoprazole 40mg qday. Last Assessment & Plan: Assessment: h/o, no longer taking rx SUMMARY 01/13/2013 10/19/2019 Overview: Mr. 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 Mr. Sanon and his describe two normal bowel movements earlier in the day, and 3 episodes of blood in the stool since about 2 PM this afternoon. He describes the first episode as having fresh bright red blood larger in volume than several tablespoons which also mixed into the stool and toilet water. He had another episode earlier this evening, and a third episode upon admission to [facility] which was much less blood and mostly mixed into the stool. He denies hemoptysis, hematemesis, or other site of bleeding. Upon discharge 02/04/13 his hemoglobin was 8.6. In the ED tonight, Hgb is 8.4, Hct 24.4, plt 41. Ascites 01/13/2013 10/19/2019 Overview: Patient denies known history of SBP. Denies current abdominal tenderness, and no large volume ascites with need for paracentesis 02/06/2013. Plan: - ? Diuretics - will D/W nephrology Cirrhosis of liver 10/25/2020 documented as of this encounter (statuses as of 11/23/2021) [facility]04-08-2020 History of Past illness Narrative* Problem Noted Date Resolved Date Metabolic acidosis 11/25/2019 10/25/2020 Medication management 05/18/2019 10/19/2019 Hyperkalemia 04/24/2019 10/25/2020 Last Assessment & Plan: K 5.2 at time of discharge, likely elevated in setting of NASIR on CKD Patient also stated that he was eating potatoes with every meal because that was what they were giving him He has had hyperkalemia in the past PLAN: - Switched to renal diet - Educated patient on what foods to avoid - Recheck BMP on Saturday at PCP follow up appointment for monitoring of K Transaminitis 03/25/2019 03/27/2019 Pain in left foot 02/20/2019 10/25/2020 CKD (chronic kidney disease) stage 3, GFR 30-59 ml/min 06/19/2016 10/25/2020 Overview: Seeing Dr. 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 Plan: Continue pantoprazole 40mg qday. Last Assessment & Plan: Assessment: h/o, no longer taking rx SUMMARY 01/13/2013 10/19/2019 Overview: Mr. Saonn is a 67 yo male with liver cirrhosis secondary to alcohol abuse and hemochromatosis complicated by PSE, GAVE, esophageal varices, ascites and multiple hepatic and pancreatic cysts who presented to the ED 02/06/2013 after several episodes of BRBPR and blood in the stool. Mr. Sanon and his describe two normal bowel movements earlier in the day, and 3 episodes of blood in the stool since about 2 PM this afternoon. He describes the first episode as having fresh bright red blood larger in volume than several tablespoons which also mixed into the stool and toilet water. He had another episode earlier this evening, and a third episode upon admission to [facility] which was much less blood and mostly mixed into the stool. He denies hemoptysis, hematemesis, or other site of bleeding. Upon discharge 02/04/13 his hemoglobin was 8.6. In the ED tonight, Hgb is 8.4, Hct 24.4, plt 41. Ascites 01/13/2013 10/19/2019 Overview: Patient denies known history of SBP. Denies current abdominal tenderness, and no large volume ascites with need for paracentesis 02/06/2013. Plan: - ? Diuretics - will D/W nephrology Cirrhosis of liver 10/25/2020 documented as of this encounter (statuses as of 11/23/2021) [facility]04-08-2020 History of Past illness Narrative* Problem Noted Date Resolved Date Metabolic acidosis 11/25/2019 10/25/2020 Medication management 05/18/2019 10/19/2019 Hyperkalemia 04/24/2019 10/25/2020 Last Assessment & Plan: K 5.2 at time of discharge, likely elevated in setting of NASIR on CKD Patient also stated that he was eating potatoes with every meal because that was what they were giving him He has had hyperkalemia in the past PLAN: - Switched to renal diet - Educated patient on what foods to avoid - Recheck BMP on Saturday at PCP follow up appointment for monitoring of K Transaminitis 03/25/2019 03/27/2019 Pain in left foot 02/20/2019 10/25/2020 CKD (chronic kidney disease) stage 3, GFR 30-59 ml/min 06/19/2016 10/25/2020 Overview: Seeing Dr. 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 Plan: Continue pantoprazole 40mg qday. Last Assessment & Plan: Assessment: h/o, no longer taking rx SUMMARY 01/13/2013 10/19/2019 Overview: Mr. 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 Mr. Sanon and his describe two normal bowel movements earlier in the day, and 3 episodes of blood in the stool since about 2 PM this afternoon. He describes the first episode as having fresh bright red blood larger in volume than several tablespoons which also mixed into the stool and toilet water. He had another episode earlier this evening, and a third episode upon admission to [facility] which was much less blood and mostly mixed into the stool. He denies hemoptysis, hematemesis, or other site of bleeding. Upon discharge 02/04/13 his hemoglobin was 8.6. In the ED tonight, Hgb is 8.4, Hct 24.4, plt 41. Ascites 01/13/2013 10/19/2019 Overview: Patient denies known history of SBP. Denies current abdominal tenderness, and no large volume ascites with need for paracentesis 02/06/2013. Plan: - ? Diuretics - will D/W nephrology Cirrhosis of liver 10/25/2020 documented as of this encounter (statuses as of 11/24/2021) [facility]04-08-2020 History of Past illness Narrative* Problem Noted Date Resolved Date Metabolic acidosis 11/25/2019 10/25/2020 Medication management 05/18/2019 10/19/2019 Hyperkalemia 04/24/2019 10/25/2020 Last Assessment & Plan: K 5.2 at time of discharge, likely elevated in setting of NASIR on CKD Patient also stated that he was eating potatoes with every meal because that was what they were giving him He has had hyperkalemia in the past PLAN: - Switched to renal diet - Educated patient on what foods to avoid - Recheck BMP on Saturday at PCP follow up appointment for monitoring of K Transaminitis 03/25/2019 03/27/2019 Pain in left foot 02/20/2019 10/25/2020 CKD (chronic kidney disease) stage 3, GFR 30-59 ml/min 06/19/2016 10/25/2020 Overview: Seeing Dr. 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 Plan: Continue pantoprazole 40mg qday. Last Assessment & Plan: Assessment: h/o, no longer taking rx SUMMARY 01/13/2013 10/19/2019 Overview: Mr. 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 Mr. Sanon and his describe two normal bowel movements earlier in the day, and 3 episodes of blood in the stool since about 2 PM this afternoon. He describes the first episode as having fresh bright red blood larger in volume than several tablespoons which also mixed into the stool and toilet water. He had another episode earlier this evening, and a third episode upon admission to [facility] which was much less blood and mostly mixed into the stool. He denies hemoptysis, hematemesis, or other site of bleeding. Upon discharge 02/04/13 his hemoglobin was 8.6. In the ED tonight, Hgb is 8.4, Hct 24.4, plt 41. Ascites 01/13/2013 10/19/2019 Overview: Patient denies known history of SBP. Denies current abdominal tenderness, and no large volume ascites with need for paracentesis 02/06/2013. Plan: - ? Diuretics - will D/W nephrology Cirrhosis of liver 10/25/2020 documented as of this encounter (statuses as of 11/24/2021) [facility]04-08-2020 History of Past illness Narrative* Problem Noted Date Resolved Date Metabolic acidosis 11/25/2019 10/25/2020 Medication management 05/18/2019 10/19/2019 Hyperkalemia 04/24/2019 10/25/2020 Last Assessment & Plan: K 5.2 at time of discharge, likely elevated in setting of NASIR on CKD Patient also stated that he was eating potatoes with every meal because that was what they were giving him He has had hyperkalemia in the past PLAN: - Switched to renal diet - Educated patient on what foods to avoid - Recheck BMP on Saturday at PCP follow up appointment for monitoring of K Transaminitis 03/25/2019 03/27/2019 Pain in left foot 02/20/2019 10/25/2020 CKD (chronic kidney disease) stage 3, GFR 30-59 ml/min 06/19/2016 10/25/2020 Overview: Seeing Dr. 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 Plan: Continue pantoprazole 40mg qday. Last Assessment & Plan: Assessment: h/o, no longer taking rx SUMMARY 01/13/2013 10/19/2019 Overview: Mr. 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 Mr. Sanon and his describe two normal bowel movements earlier in the day, and 3 episodes of blood in the stool since about 2 PM this afternoon. He describes the first episode as having fresh bright red blood larger in volume than several tablespoons which also mixed into the stool and toilet water. He had another episode earlier this evening, and a third episode upon admission to [facility] which was much less blood and mostly mixed into the stool. He denies hemoptysis, hematemesis, or other site of bleeding. Upon discharge 02/04/13 his hemoglobin was 8.6. In the ED tonight, Hgb is 8.4, Hct 24.4, plt 41. Ascites 01/13/2013 10/19/2019 Overview: Patient denies known history of SBP. Denies current abdominal tenderness, and no large volume ascites with need for paracentesis 02/06/2013. Plan: - ? Diuretics - will D/W nephrology Cirrhosis of liver 10/25/2020 documented as of this encounter (statuses as of 11/27/2021) [facility]04-[facility]2020 History of Past illness Narrative* Problem Noted Date Resolved Date Metabolic acidosis 11/25/2019 10/25/2020 Medication management 05/18/2019 10/19/2019 Hyperkalemia 04/24/2019 10/25/2020 Last Assessment & Plan: K 5.2 at time of discharge, likely elevated in setting of NASIR on CKD Patient also stated that he was eating potatoes with every meal because that was what they were giving him He has had hyperkalemia in the past PLAN: - Switched to renal diet - Educated patient on what foods to avoid - Recheck BMP on Saturday at PCP follow up appointment for monitoring of K Transaminitis 03/25/2019 03/27/2019 Pain in left foot 02/20/2019 10/25/2020 CKD (chronic kidney disease) stage 3, GFR 30-59 ml/min 06/19/2016 10/25/2020 Overview: Seeing Dr. 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 Plan: Continue pantoprazole 40mg qday. Last Assessment & Plan: Assessment: h/o, no longer taking rx SUMMARY 01/13/2013 10/19/2019 Overview: Mr. 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 Mr. Sanon and his describe two normal bowel movements earlier in the day, and 3 episodes of blood in the stool since about 2 PM this afternoon. He describes the first episode as having fresh bright red blood larger in volume than several tablespoons which also mixed into the stool and toilet water. He had another episode earlier this evening, and a third episode upon admission to [facility] which was much less blood and mostly mixed into the stool. He denies hemoptysis, hematemesis, or other site of bleeding. Upon discharge 02/04/13 his hemoglobin was 8.6. In the ED tonight, Hgb is 8.4, Hct 24.4, plt 41. Ascites 01/13/2013 10/19/2019 Overview: Patient denies known history of SBP. Denies current abdominal tenderness, and no large volume ascites with need for paracentesis 02/06/2013. Plan: - ? Diuretics - will D/W nephrology Cirrhosis of liver 10/25/2020 documented as of this encounter (statuses as of 11/29/2021) [facility]04[facility]2020 History of Past illness Narrative* Problem Noted Date Resolved Date Metabolic acidosis 11/25/2019 10/25/2020 Medication management 05/18/2019 10/19/2019 Hyperkalemia 04/24/2019 10/25/2020 Last Assessment & Plan: K 5.2 at time of discharge, likely elevated in setting of NSAIR on CKD Patient also stated that he was eating potatoes with every meal because that was what they were giving him He has had hyperkalemia in the past PLAN: - Switched to renal diet - Educated patient on what foods to avoid - Recheck BMP on Saturday at PCP follow up appointment for monitoring of K Transaminitis 03/25/2019 03/27/2019 Pain in left foot 02/20/2019 10/25/2020 CKD (chronic kidney disease) stage 3, GFR 30-59 ml/min 06/19/2016 10/25/2020 Overview: Seeing Dr. 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 Plan: Continue pantoprazole 40mg qday. Last Assessment & Plan: Assessment: h/o, no longer taking rx SUMMARY 01/13/2013 10/19/2019 Overview: Mr. 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 Mr. Sanon and his describe two normal bowel movements earlier in the day, and 3 episodes of blood in the stool since about 2 PM this afternoon. He describes the first episode as having fresh bright red blood larger in volume than several tablespoons which also mixed into the stool and toilet water. He had another episode earlier this evening, and a third episode upon admission to [facility] which was much less blood and mostly mixed into the stool. He denies hemoptysis, hematemesis, or other site of bleeding. Upon discharge 02/04/13 his hemoglobin was 8.6. In the ED tonight, Hgb is 8.4, Hct 24.4, plt 41. Ascites 01/13/2013 10/19/2019 Overview: Patient denies known history of SBP. Denies current abdominal tenderness, and no large volume ascites with need for paracentesis 02/06/2013. Plan: - ? Diuretics - will D/W nephrology Cirrhosis of liver 10/25/2020 documented as of this encounter (statuses as of 11/30/2021) [facility]04-[facility] History of Past illness Narrative* Problem Noted Date Resolved Date Metabolic acidosis 11/25/2019 10/25/2020 Medication management 05/18/2019 10/19/2019 Hyperkalemia 04/24/2019 10/25/2020 Last Assessment & Plan: K 5.2 at time of discharge, likely elevated in setting of NASIR on CKD Patient also stated that he was eating potatoes with every meal because that was what they were giving him He has had hyperkalemia in the past PLAN: - Switched to renal diet - Educated patient on what foods to avoid - Recheck BMP on Saturday at PCP follow up appointment for monitoring of K Transaminitis 03/25/2019 03/27/2019 Pain in left foot 02/20/2019 10/25/2020 CKD (chronic kidney disease) stage 3, GFR 30-59 ml/min 06/19/2016 10/25/2020 Overview: Seeing Dr. 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 Plan: Continue pantoprazole 40mg qday. Last Assessment & Plan: Assessment: h/o, no longer taking rx SUMMARY 01/13/2013 10/19/2019 Overview: Mr. 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 Mr. Sanon and his describe two normal bowel movements earlier in the day, and 3 episodes of blood in the stool since about 2 PM this afternoon. He describes the first episode as having fresh bright red blood larger in volume than several tablespoons which also mixed into the stool and toilet water. He had another episode earlier this evening, and a third episode upon admission to [facility] which was much less blood and mostly mixed into the stool. He denies hemoptysis, hematemesis, or other site of bleeding. Upon discharge 02/04/13 his hemoglobin was 8.6. In the ED tonight, Hgb is 8.4, Hct 24.4, plt 41. Ascites 01/13/2013 10/19/2019 Overview: Patient denies known history of SBP. Denies current abdominal tenderness, and no large volume ascites with need for paracentesis 02/06/2013. Plan: - ? Diuretics - will D/W nephrology Cirrhosis of liver 10/25/2020 documented as of this encounter (statuses as of 12/11/2021) [facility] Shortness of breath Other specified abdominal hernia without obstruction or gangrene [facility] Diagnosis Type 2 diabetes mellitus with stage 3b chronic kidney disease, without long-term current use of insulin (HCC)- Primary Other specified abdominal hernia without obstruction or gangrene [facility] Diagnosis Preoperative examination- Primary Preoperative examination, unspecified Incisional hernia with obstruction but no gangrene Incisional hernia with obstruction Type 2 diabetes mellitus with stage 3b chronic kidney disease, without long-term current use of insulin (HCC) Essential hypertension Unspecified essential hypertension Gastroesophageal reflux disease without esophagitis Esophageal reflux History of alcohol abuse Nondependent alcohol abuse, in remission History of cirrhosis of liver Personal history of other diseases of digestive system History of encephalopathy Personal history of other disorders of nervous system and sense organs Mixed hyperlipidemia History of hemochromatosis Personal history of other endocrine, metabolic, and immunity disorders Chronic low back pain without sciatica, unspecified back pain laterality Anemia of renal disease Anemia in chronic kidney disease CKD (chronic kidney disease) stage 4, GFR 15-29 ml/min (HCC) Chronic kidney disease, Stage IV (severe) Dilation of aorta (HCC) ZULUAGA (dyspnea on exertion) Other dyspnea and respiratory abnormality History of deep venous thrombosis (DVT) of distal vein of right lower extremity History of stroke Transient ischemic attack (TIA), and cerebral infarction without residual deficits Hypertensive kidney disease with stage 4 chronic kidney disease (HCC) Lupus anticoagulant syndrome (HCC) Primary hypercoagulable state Prostate disorder Unspecified disorder of prostate Secondary hyperparathyroidism of renal origin (HCC) Secondary hyperparathyroidism (of renal origin) Thrombocytopenia (HCC) Thrombocytopenia, unspecified Obesity, Class I, BMI 30-34.9 Obesity, unspecified Other specified abdominal hernia without obstruction or gangrene [facility] Diagnosis Essential hypertension- Primary Unspecified essential hypertension Mixed hyperlipidemia Other specified abdominal hernia without obstruction or gangrene [facility] Diagnosis CKD (chronic kidney disease), stage IV (HCC)- Primary Chronic kidney disease, Stage IV (severe) [facility] Diagnosis S/P repair of ventral hernia- Primary Other postprocedural status ABLA (acute blood loss anemia) CKD (chronic kidney disease) stage 4, GFR 15-29 ml/min (HCC) Chronic kidney disease, Stage IV (severe) Essential hypertension Unspecified essential hypertension Hospital discharge follow-up Other follow-up examination Elevated troponin level Other abnormal blood chemistry [facility] Diagnosis Incisional hernia with obstruction but no gangrene- Primary Incisional hernia with obstruction [facility] Diagnosis Hypertension, essential Unspecified essential hypertension [facility] Diagnosis Liver replaced by transplant (HCC)- Primary Liver replaced by transplant [facility] Diagnosis Medicare annual wellness visit, subsequent- Primary Routine general medical examination at a [facility] care facility Type 2 diabetes mellitus with stage 3b chronic kidney disease, without long-term current use of insulin (HCC) Essential hypertension Unspecified essential hypertension Mixed hyperlipidemia Hypertensive kidney disease with stage 4 chronic kidney disease (HCC) Secondary hyperparathyroidism of renal origin (HCC) Secondary hyperparathyroidism (of renal origin) Proteinuria, unspecified type Gastroesophageal reflux disease without esophagitis Esophageal reflux 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) Thoracic aorta atherosclerosis (HCC) Atherosclerosis of aorta Hypertensive retinopathy, unspecified laterality History of stroke Transient ischemic attack (TIA), and cerebral infarction without residual deficits CKD (chronic kidney disease) stage 4, GFR 15-29 ml/min (HCC) Chronic kidney disease, Stage IV (severe) Anemia of renal disease Anemia in chronic kidney disease History of deep venous thrombosis (DVT) of distal vein of right lower extremity Lupus anticoagulant syndrome (HCC) Primary hypercoagulable state Thrombocytopenia (HCC) Thrombocytopenia, unspecified Liver transplant status (HCC) Obesity, Class I, BMI 30-34.9 Obesity, unspecified Arthritis Arthropathy, unspecified, site unspecified Advance directive discussed with patient Other specified counseling Living will in place Prostate disorder Unspecified disorder of prostate [facility] Diagnosis Essential hypertension- Primary Unspecified essential hypertension Encounter for immunization Need for other specified prophylactic vaccination against single bacterial disease Mixed hyperlipidemia Type 2 diabetes mellitus with stage 3b chronic kidney disease, without long-term current use of insulin (HCC) [facility] Diagnosis Stage 3b chronic kidney disease (HCC)- Primary Proteinuria, unspecified type Liver transplanted (HCC) Liver replaced by transplant Benign essential HTN Essential hypertension, benign [facility] Diagnosis Screening for genitourinary condition Screening for other and unspecified genitourinary condition [facility] Diagnosis Type 2 diabetes mellitus with stage 3b chronic kidney disease, without long-term current use of insulin (HCC)- Primary Mixed hyperlipidemia 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) Essential hypertension Unspecified essential hypertension Hypertensive kidney disease with stage 4 chronic kidney disease (HCC) Thoracic aorta atherosclerosis (HCC) Atherosclerosis of aorta Gastroesophageal reflux disease without esophagitis Esophageal reflux CKD (chronic kidney disease) stage 4, GFR 15-29 ml/min (HCC) Chronic kidney disease, Stage IV (severe) Right leg swelling Swelling of limb [facility] CKD (chronic kidney disease) stage 4, GFR 15-29 ml/min (HCC)- Primary Chronic kidney disease, Stage IV (severe) Proteinuria, unspecified type Liver transplanted (HCC) Liver replaced by transplant Benign essential HTN Essential hypertension, benign [facility] Diagnosis Congestive heart failure, unspecified HF chronicity, unspecified heart failure type (HCC)- Primary 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) Thoracic aorta atherosclerosis (HCC) Atherosclerosis of aorta Encounter for screening for cardiovascular disorders Screening for other and unspecified cardiovascular conditions [facility] Liver replaced by transplant (HCC)- Primary Liver replaced by transplant [facility] Diagnosis Central retinal vein occlusion with macular edema of right eye- Primary Tributary (branch) retinal vein occlusion, left eye, with macular edema [facility] Diagnosis Congestive heart failure, unspecified HF chronicity, unspecified heart failure type (HCC)- Primary 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) SOB (shortness of breath) Shortness of breath Leg edema, right Edema Abnormal EKG Nonspecific abnormal electrocardiogram (ECG) (EKG) Anasarca Edema [facility] Diagnosis Congestive heart failure, unspecified HF chronicity, unspecified heart failure type (HCC)- Primary CKD (chronic kidney disease) stage 4, GFR 15-29 ml/min (HCC) Chronic kidney disease, Stage IV (severe) [facility] Diagnosis CKD (chronic kidney disease) stage 4, GFR 15-29 ml/min (HCC)- Primary Chronic kidney disease, Stage IV (severe) Congestive heart failure, unspecified HF chronicity, unspecified heart failure type (HCC) Diarrhea, unspecified type [facility] Diagnosis ZULUAGA (dyspnea on exertion)- Primary Other dyspnea and respiratory abnormality Coronary artery disease involving kaw coronary artery of kaw heart without angina pectoris Hypertensive kidney disease with stage 4 chronic kidney disease (HCC) Abnormal stress test Other nonspecific abnormal cardiovascular system function study [facility] Diagnosis Abnormal stress test- Primary Other nonspecific abnormal cardiovascular system function study ZULUAGA (dyspnea on exertion) Other dyspnea and respiratory abnormality Hypertensive kidney disease with stage 4 chronic kidney disease (HCC) [facility] Diagnosis Congestive heart failure, unspecified HF chronicity, unspecified heart failure type (HCC)- Primary CKD (chronic kidney disease) stage 4, GFR 15-29 ml/min (HCC) Chronic kidney disease, Stage IV (severe) Bilateral leg edema Edema Abnormal stress test Other nonspecific abnormal cardiovascular system function study Thrombocytopenia (HCC) Thrombocytopenia, unspecified Secondary hyperparathyroidism of renal origin (HCC) Secondary hyperparathyroidism (of renal origin) Reactive depression Dysthymic disorder [facility] Diagnosis Abnormal stress test- Primary Other nonspecific abnormal cardiovascular system function study Angina pectoris (HCC) Other and unspecified angina pectoris Abnormal stress test Other nonspecific abnormal cardiovascular system function study [facility] Diagnosis Coronary artery disease involving kaw coronary artery of kaw heart with angina pectoris (HCC)- Primary Essential hypertension Unspecified essential hypertension 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) Abnormal stress test Other nonspecific abnormal cardiovascular system function study [facility] Diagnosis 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)- Primary 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) [facility] Diagnosis Disorder of liver- Primary Unspecified disorder of liver Liver replaced by transplant (HCC) Liver replaced by transplant 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) [facility] Diagnosis Coronary artery disease involving kaw coronary artery of kaw heart with angina pectoris (HCC)- Primary 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) [facility] Diagnosis CKD (chronic kidney disease) stage 4, GFR 15-29 ml/min (HCC)- Primary Chronic kidney disease, Stage IV (severe) Liver transplanted (HCC) Liver replaced by transplant Benign essential HTN Essential hypertension, benign Proteinuria, unspecified type [facility] Diagnosis Disorder of liver- Primary Unspecified disorder of liver Liver replaced by transplant (HCC) Liver replaced by transplant [facility]* Diagnosis Congestive heart failure, unspecified HF chronicity, unspecified heart failure type (HCC)- Primary Essential hypertension Unspecified essential hypertension Hypertensive kidney disease with stage 4 chronic kidney disease (HCC) [facility]* Diagnosis 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, left eye, with macular edema [facility]* Diagnosis Edema of right lower extremity- Primary Edema [facility] Diagnosis Liver replaced by transplant (HCC)- Primary Liver replaced by transplant Preoperative examination Preoperative examination, unspecified [facility] Diagnosis Disorder of liver- Primary Unspecified disorder of liver Liver replaced by transplant (HCC) Liver replaced by transplant [facility] Diagnosis Liver transplant status (HCC)- Primary [facility]* Diagnosis Hemodialysis-associated hypotension- Primary Hypotension of hemodialysis Chronic kidney disease (CKD), stage IV (severe) (HCC) Chronic kidney disease, Stage IV (severe) Type 2 diabetes mellitus with stage 4 chronic kidney disease, with long-term current use of insulin (HCC) Liver transplant status (HCC) Anasarca Edema Urge incontinence of urine Urge incontinence Benign prostatic hyperplasia with urinary hesitancy Incontinence of feces, unspecified fecal incontinence type Physical debility Debility, unspecified Decreased transfer ability Other general symptoms [facility]* Diagnosis Hemodialysis-associated hypotension- Primary Hypotension of hemodialysis Bilateral leg edema Edema Subconjunctival hemorrhage of both eyes [facility]* Diagnosis Urge incontinence of urine- Primary Urge incontinence [facility]* Diagnosis Confusion- Primary Unspecified psychosis [facility] Diagnosis Liver replaced by transplant (HCC)- Primary Liver replaced by transplant [facility] Diagnosis Hypotension of hemodialysis- Primary [facility] Diagnosis Benign prostatic hyperplasia with urinary hesitancy- Primary Screening for genitourinary condition Screening for other and unspecified genitourinary condition Chronic kidney disease (CKD), stage IV (severe) (HCC) Chronic kidney disease, Stage IV (severe) Acute cystitis without hematuria Acute cystitis [facility] Diagnosis Liver replaced by transplant (HCC)- Primary Liver replaced by transplant Immunosuppressed status (HCC) Unspecified disorder of immune mechanism [facility] Diagnosis Bilateral leg edema- Primary Edema Physical debility Debility, unspecified Decreased transfer ability Other general symptoms Anasarca Edema [facility] Diagnosis Acute cystitis without hematuria- Primary Acute cystitis [facility]* Diagnosis Type 2 diabetes mellitus with stage 4 chronic kidney disease, with long-term current use of insulin (HCC)- Primary Mixed hyperlipidemia Gastroesophageal reflux disease without esophagitis Esophageal reflux History of stroke Transient ischemic attack (TIA), and cerebral infarction without residual deficits Acute on chronic anemia Coronary artery disease Chronic kidney disease (CKD), stage IV (severe) (HCC) Chronic kidney disease, Stage IV (severe) Secondary hyperparathyroidism of renal origin (HCC) Secondary hyperparathyroidism (of renal origin) Liver transplant status (HCC) Lupus anticoagulant syndrome (HCC) Primary hypercoagulable state Thrombocytopenia (HCC) Thrombocytopenia, unspecified Bilateral leg edema Edema Obesity, Class I, BMI 30-34.9 Obesity, unspecified Malnutrition of moderate degree (HCC) Malnutrition of moderate degree Liver transplant rejection (HCC) Complications of transplanted liver ESRD (end stage renal disease) (HCC) End stage renal disease Encounter for aftercare following liver transplant (HCC) Aftercare following organ transplant Dialysis patient (HCC) Renal dialysis status Medicare annual wellness visit, subsequent Routine general medical examination at a health care facility [facility] Diagnosis Type 2 diabetes mellitus with stage 4 chronic kidney disease, with long-term current use of insulin (HCC)- Primary ESRD (end stage renal disease) (HCC) End stage renal disease Dialysis patient (HCC) Renal dialysis status Malnutrition of moderate degree (HCC) Malnutrition of moderate degree [facility] Diagnosis ESRD on dialysis (HCC)- Primary End stage renal disease Liver transplanted (HCC) Liver replaced by transplant [facility] Diagnosis Screening for genitourinary condition Screening for other and unspecified genitourinary condition [facility] Diagnosis 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)- Primary 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 stage V or end stage renal disease [facility]* Diagnosis CKD (chronic kidney disease) stage 5, GFR less than 15 ml/min (HCC)- Primary Chronic kidney disease, Stage V [facility]* Diagnosis Pre-operative examination- Primary Preoperative examination, unspecified Pain in left foot Pain in limb Liver transplanted (HCC) Liver replaced by transplant Essential hypertension Unspecified essential hypertension Mixed hyperlipidemia Gastroesophageal reflux disease without esophagitis Esophageal reflux Duodenal ulcer Duodenal ulcer, unspecified as acute or chronic, without hemorrhage, perforation, or obstruction CKD (chronic kidney disease) stage 3, GFR 30-59 ml/min (HCC) Chronic kidney disease, Stage III (moderate) History of hemochromatosis Personal history of other endocrine, metabolic, and immunity disorders Controlled type 2 diabetes mellitus without complication, without long-term current use of insulin (HCC) Thrombocytopenia (HCC) Thrombocytopenia, unspecified Anemia, chronic disease Anemia of other chronic disease History of encephalopathy Personal history of other disorders of nervous system and sense organs History of cirrhosis of liver Personal history of other diseases of digestive system Acute deep vein thrombosis (DVT) of lower extremity, unspecified laterality, unspecified vein (HCC)- Primary Other cirrhosis of liver (HCC) Edema, unspecified type Transaminitis Nonspecific elevation of levels of transaminase or lactic acid dehydrogenase (LDH) Acute deep vein thrombosis (DVT) of proximal vein of right lower extremity (HCC) CKD (chronic kidney disease) stage 3, GFR 30-59 ml/min (HCC) Chronic kidney disease, Stage III (moderate) Essential hypertension Unspecified essential hypertension History of cirrhosis of liver Personal history of other diseases of digestive system Liver transplanted (HCC) Liver replaced by transplant Thrombocytopenia (HCC) Thrombocytopenia, unspecified Hyperkalemia Hyperpotassemia Healthcare maintenance Routine general medical examination at a health care facility 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) Nontraumatic hemorrhage of cerebral hemisphere, unspecified laterality (HCC) History of cirrhosis of liver Personal history of other diseases of digestive system Controlled type 2 diabetes mellitus with stage 3 chronic kidney disease, without long-term current use of insulin (HCC) Hyperkalemia Hyperpotassemia Stage 3 chronic kidney disease (HCC) Ventral hernia, recurrent- Primary Incisional hernia without mention of obstruction or gangrene Postoperative pain Other acute postoperative pain Abnormal stress test Other nonspecific abnormal cardiovascular system function study Elevated troponin level Other abnormal blood chemistry CKD (chronic kidney disease) stage 4, GFR 15-29 ml/min (HCC) Chronic kidney disease, Stage IV (severe) Liver transplant status (HCC) S/P hernia repair Other postprocedural status Hypertensive kidney disease with stage 4 chronic kidney disease (HCC) Ventral hernia, recurrent Incisional hernia without mention of obstruction or gangrene Hyperkalemia Hyperpotassemia Ileus, postoperative (HCC) Other digestive system complications Pre-op evaluation- Primary Preoperative examination, unspecified Other specified abdominal hernia without obstruction or gangrene Preoperative examination Preoperative examination, unspecified Leg edema Edema History of cirrhosis of liver Personal history of other diseases of digestive system Gastroesophageal reflux disease without esophagitis Esophageal reflux Type 2 diabetes mellitus with stage 3b chronic kidney disease, without long-term current use of insulin (HCC) Hypertension, essential Unspecified essential hypertension History of deep venous thrombosis (DVT) of distal vein of right lower extremity History of stroke Transient ischemic attack (TIA), and cerebral infarction without residual deficits Dilation of aorta (HCC) Hypertensive kidney disease with stage 4 chronic kidney disease (HCC) Anemia of renal disease Anemia in chronic kidney disease ZULUAGA (dyspnea on exertion) Other dyspnea and respiratory abnormality Preoperative examination- Primary Preoperative examination, unspecified Incisional hernia with obstruction but no gangrene Incisional hernia with obstruction Type 2 diabetes mellitus with stage 3b chronic kidney disease, without long-term current use of insulin (HCC) Essential hypertension Unspecified essential hypertension Gastroesophageal reflux disease without esophagitis Esophageal reflux History of alcohol abuse Nondependent alcohol abuse, in remission History of cirrhosis of liver Personal history of other diseases of digestive system History of encephalopathy Personal history of other disorders of nervous system and sense organs Mixed hyperlipidemia History of hemochromatosis Personal history of other endocrine, metabolic, and immunity disorders Chronic low back pain without sciatica, unspecified back pain laterality Anemia of renal disease Anemia in chronic kidney disease CKD (chronic kidney disease) stage 4, GFR 15-29 ml/min (HCC) Chronic kidney disease, Stage IV (severe) Dilation of aorta (HCC) ZULUAGA (dyspnea on exertion) Other dyspnea and respiratory abnormality History of deep venous thrombosis (DVT) of distal vein of right lower extremity History of stroke Transient ischemic attack (TIA), and cerebral infarction without residual deficits Hypertensive kidney disease with stage 4 chronic kidney disease (HCC) Lupus anticoagulant syndrome (HCC) Primary hypercoagulable state Prostate disorder Unspecified disorder of prostate Secondary hyperparathyroidism of renal origin (HCC) Secondary hyperparathyroidism (of renal origin) Thrombocytopenia (HCC) Thrombocytopenia, unspecified Obesity, Class I, BMI 30-34.9 Obesity, unspecified Hypertension Unspecified essential hypertension Liver transplant status (HCC) Coronary artery disease Type 2 diabetes mellitus with chronic kidney disease on chronic dialysis, with long-term current use of insulin (HCC)- Primary Liver transplant status (HCC) Appetite loss Anorexia CKD (chronic kidney disease) stage 5, GFR less than 15 ml/min (HCC) Chronic kidney disease, Stage V [facility] Pre-operative examination- Primary Preoperative examination, unspecified Pain in left foot Pain in limb Liver transplanted (HCC) Liver replaced by transplant Essential hypertension Unspecified essential hypertension Mixed hyperlipidemia Gastroesophageal reflux disease without esophagitis Esophageal reflux Duodenal ulcer Duodenal ulcer, unspecified as acute or chronic, without hemorrhage, perforation, or obstruction CKD (chronic kidney disease) stage 3, GFR 30-59 ml/min (HCC) Chronic kidney disease, Stage III (moderate) History of hemochromatosis Personal history of other endocrine, metabolic, and immunity disorders Controlled type 2 diabetes mellitus without complication, without long-term current use of insulin (HCC) Thrombocytopenia (HCC) Thrombocytopenia, unspecified Anemia, chronic disease Anemia of other chronic disease History of encephalopathy Personal history of other disorders of nervous system and sense organs History of cirrhosis of liver Personal history of other diseases of digestive system Acute deep vein thrombosis (DVT) of lower extremity, unspecified laterality, unspecified vein (HCC)- Primary Other cirrhosis of liver (HCC) Edema, unspecified type Transaminitis Nonspecific elevation of levels of transaminase or lactic acid dehydrogenase (LDH) Acute deep vein thrombosis (DVT) of proximal vein of right lower extremity (HCC) CKD (chronic kidney disease) stage 3, GFR 30-59 ml/min (HCC) Chronic kidney disease, Stage III (moderate) Essential hypertension Unspecified essential hypertension History of cirrhosis of liver Personal history of other diseases of digestive system Liver transplanted (HCC) Liver replaced by transplant Thrombocytopenia (HCC) Thrombocytopenia, unspecified Hyperkalemia Hyperpotassemia Healthcare maintenance Routine general medical examination at a health care facility 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) Nontraumatic hemorrhage of cerebral hemisphere, unspecified laterality (HCC) History of cirrhosis of liver Personal history of other diseases of digestive system Controlled type 2 diabetes mellitus with stage 3 chronic kidney disease, without long-term current use of insulin (HCC) Hyperkalemia Hyperpotassemia Stage 3 chronic kidney disease (HCC) Ventral hernia, recurrent- Primary Incisional hernia without mention of obstruction or gangrene Postoperative pain Other acute postoperative pain Abnormal stress test Other nonspecific abnormal cardiovascular system function study Elevated troponin level Other abnormal blood chemistry CKD (chronic kidney disease) stage 4, GFR 15-29 ml/min (HCC) Chronic kidney disease, Stage IV (severe) Liver transplant status (HCC) S/P hernia repair Other postprocedural status Hypertensive kidney disease with stage 4 chronic kidney disease (HCC) Ventral hernia, recurrent Incisional hernia without mention of obstruction or gangrene Hyperkalemia Hyperpotassemia Ileus, postoperative (HCC) Other digestive system complications Pre-op evaluation- Primary Preoperative examination, unspecified Other specified abdominal hernia without obstruction or gangrene Preoperative examination Preoperative examination, unspecified Leg edema Edema History of cirrhosis of liver Personal history of other diseases of digestive system Gastroesophageal reflux disease without esophagitis Esophageal reflux Type 2 diabetes mellitus with stage 3b chronic kidney disease, without long-term current use of insulin (HCC) Hypertension, essential Unspecified essential hypertension History of deep venous thrombosis (DVT) of distal vein of right lower extremity History of stroke Transient ischemic attack (TIA), and cerebral infarction without residual deficits Dilation of aorta (HCC) Hypertensive kidney disease with stage 4 chronic kidney disease (HCC) Anemia of renal disease Anemia in chronic kidney disease ZULUAGA (dyspnea on exertion) Other dyspnea and respiratory abnormality Preoperative examination- Primary Preoperative examination, unspecified Incisional hernia with obstruction but no gangrene Incisional hernia with obstruction Type 2 diabetes mellitus with stage 3b chronic kidney disease, without long-term current use of insulin (HCC) Essential hypertension Unspecified essential hypertension Gastroesophageal reflux disease without esophagitis Esophageal reflux History of alcohol abuse Nondependent alcohol abuse, in remission History of cirrhosis of liver Personal history of other diseases of digestive system History of encephalopathy Personal history of other disorders of nervous system and sense organs Mixed hyperlipidemia History of hemochromatosis Personal history of other endocrine, metabolic, and immunity disorders Chronic low back pain without sciatica, unspecified back pain laterality Anemia of renal disease Anemia in chronic kidney disease CKD (chronic kidney disease) stage 4, GFR 15-29 ml/min (HCC) Chronic kidney disease, Stage IV (severe) Dilation of aorta (HCC) ZULUAGA (dyspnea on exertion) Other dyspnea and respiratory abnormality History of deep venous thrombosis (DVT) of distal vein of right lower extremity History of stroke Transient ischemic attack (TIA), and cerebral infarction without residual deficits Hypertensive kidney disease with stage 4 chronic kidney disease (HCC) Lupus anticoagulant syndrome (HCC) Primary hypercoagulable state Prostate disorder Unspecified disorder of prostate Secondary hyperparathyroidism of renal origin (HCC) Secondary hyperparathyroidism (of renal origin) Thrombocytopenia (HCC) Thrombocytopenia, unspecified Obesity, Class I, BMI 30-34.9 Obesity, unspecified Hypertension Unspecified essential hypertension Liver transplant status (HCC) Coronary artery disease Liver replaced by transplant (HCC)- Primary Liver replaced by [facility] Pre-operative examination- Primary Preoperative examination, unspecified Pain in left foot Pain in limb Liver transplanted (HCC) Liver replaced by transplant Essential hypertension Unspecified essential hypertension Mixed hyperlipidemia Gastroesophageal reflux disease without esophagitis Esophageal reflux Duodenal ulcer Duodenal ulcer, unspecified as acute or chronic, without hemorrhage, perforation, or obstruction CKD (chronic kidney disease) stage 3, GFR 30-59 ml/min (HCC) Chronic kidney disease, Stage III (moderate) History of hemochromatosis Personal history of other endocrine, metabolic, and immunity disorders Controlled type 2 diabetes mellitus without complication, without long-term current use of insulin (HCC) Thrombocytopenia (HCC) Thrombocytopenia, unspecified Anemia, chronic disease Anemia of other chronic disease History of encephalopathy Personal history of other disorders of nervous system and sense organs History of cirrhosis of liver Personal history of other diseases of digestive system Acute deep vein thrombosis (DVT) of lower extremity, unspecified laterality, unspecified vein (HCC)- Primary Other cirrhosis of liver (HCC) Edema, unspecified type Transaminitis Nonspecific elevation of levels of transaminase or lactic acid dehydrogenase (LDH) Acute deep vein thrombosis (DVT) of proximal vein of right lower extremity (HCC) CKD (chronic kidney disease) stage 3, GFR 30-59 ml/min (HCC) Chronic kidney disease, Stage III (moderate) Essential hypertension Unspecified essential hypertension History of cirrhosis of liver Personal history of other diseases of digestive system Liver transplanted (HCC) Liver replaced by transplant Thrombocytopenia (HCC) Thrombocytopenia, unspecified Hyperkalemia Hyperpotassemia Healthcare maintenance Routine general medical examination at a health care facility History of cirrhosis of liver Personal history of other diseases of digestive system 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) Nontraumatic hemorrhage of cerebral hemisphere, unspecified laterality (HCC) History of cirrhosis of liver Personal history of other diseases of digestive system Controlled type 2 diabetes mellitus with stage 3 chronic kidney disease, without long-term current use of insulin (HCC) Hyperkalemia Hyperpotassemia Stage 3 chronic kidney disease (HCC) Liver transplant status (HCC) Balance problem Other symptoms involving nervous and musculoskeletal systems Bacterial pneumonia Bacterial pneumonia, unspecified Ventral hernia, recurrent- Primary Incisional hernia without mention of obstruction or gangrene Postoperative pain Other acute postoperative pain Abnormal stress test Other nonspecific abnormal cardiovascular system function study Elevated troponin level Other abnormal blood chemistry CKD (chronic kidney disease) stage 4, GFR 15-29 ml/min (HCC) Chronic kidney disease, Stage IV (severe) Liver transplant status (HCC) S/P hernia repair Other postprocedural status Hypertensive kidney disease with stage 4 chronic kidney disease (HCC) Pre-op evaluation- Primary Preoperative examination, unspecified Other specified abdominal hernia without obstruction or gangrene Preoperative examination Preoperative examination, unspecified Leg edema Edema History of cirrhosis of liver Personal history of other diseases of digestive system Gastroesophageal reflux disease without esophagitis Esophageal reflux Type 2 diabetes mellitus with stage 3b chronic kidney disease, without long-term current use of insulin (HCC) Hypertension, essential Unspecified essential hypertension History of deep venous thrombosis (DVT) of distal vein of right lower extremity History of stroke Transient ischemic attack (TIA), and cerebral infarction without residual deficits Dilation of aorta (HCC) Hypertensive kidney disease with stage 4 chronic kidney disease (HCC) Anemia of renal disease Anemia in chronic kidney disease ZULU[place]A (dyspnea on exertion) Other dyspnea and respiratory abnormality Preoperative examination- Primary Preoperative examination, unspecified Incisional hernia with obstruction but no gangrene Incisional hernia with obstruction Type 2 diabetes mellitus with stage 3b chronic kidney disease, without long-term current use of insulin (HCC) Essential hypertension Unspecified essential hypertension Gastroesophageal reflux disease without esophagitis Esophageal reflux History of alcohol abuse Nondependent alcohol abuse, in remission History of cirrhosis of liver Personal history of other diseases of digestive system History of encephalopathy Personal history of other disorders of nervous system and sense organs Mixed hyperlipidemia History of hemochromatosis Personal history of other endocrine, metabolic, and immunity disorders Chronic low back pain without sciatica, unspecified back pain laterality Anemia of renal disease Anemia in chronic kidney disease CKD (chronic kidney disease) stage 4, GFR 15-29 ml/min (HCC) Chronic kidney disease, Stage IV (severe) Dilation of aorta (HCC) ZULUAGA (dyspnea on exertion) Other dyspnea and respiratory abnormality History of deep venous thrombosis (DVT) of distal vein of right lower extremity History of stroke Transient ischemic attack (TIA), and cerebral infarction without residual deficits Hypertensive kidney disease with stage 4 chronic kidney disease (HCC) Lupus anticoagulant syndrome (HCC) Primary hypercoagulable state Prostate disorder Unspecified disorder of prostate Secondary hyperparathyroidism of renal origin (HCC) Secondary hyperparathyroidism (of renal origin) Thrombocytopenia (HCC) Thrombocytopenia, unspecified Obesity, Class I, BMI 30-34.9 Obesity, unspecified [facility] Diagnosis Pre-operative examination- Primary Preoperative examination, unspecified Pain in left foot Pain in limb Liver transplanted (HCC) Liver replaced by transplant Essential hypertension Unspecified essential hypertension Mixed hyperlipidemia Gastroesophageal reflux disease without esophagitis Esophageal reflux Duodenal ulcer Duodenal ulcer, unspecified as acute or chronic, without hemorrhage, perforation, or obstruction CKD (chronic kidney disease) stage 3, GFR 30-59 ml/min (HCC) Chronic kidney disease, Stage III (moderate) History of hemochromatosis Personal history of other endocrine, metabolic, and immunity disorders Controlled type 2 diabetes mellitus without complication, without long-term current use of insulin (HCC) Thrombocytopenia (HCC) Thrombocytopenia, unspecified Anemia, chronic disease Anemia of other chronic disease History of encephalopathy Personal history of other disorders of nervous system and sense organs History of cirrhosis of liver Personal history of other diseases of digestive system Acute deep vein thrombosis (DVT) of lower extremity, unspecified laterality, unspecified vein (HCC)- Primary Other cirrhosis of liver (HCC) Edema, unspecified type Transaminitis Nonspecific elevation of levels of transaminase or lactic acid dehydrogenase (LDH) Acute deep vein thrombosis (DVT) of proximal vein of right lower extremity (HCC) CKD (chronic kidney disease) stage 3, GFR 30-59 ml/min (HCC) Chronic kidney disease, Stage III (moderate) Essential hypertension Unspecified essential hypertension History of cirrhosis of liver Personal history of other diseases of digestive system Liver transplanted (HCC) Liver replaced by transplant Thrombocytopenia (HCC) Thrombocytopenia, unspecified Hyperkalemia Hyperpotassemia Healthcare maintenance Routine general medical examination at a health care facility History of cirrhosis of liver Personal history of other diseases of digestive system 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) Nontraumatic hemorrhage of cerebral hemisphere, unspecified laterality (HCC) History of cirrhosis of liver Personal history of other diseases of digestive system Controlled type 2 diabetes mellitus with stage 3 chronic kidney disease, without long-term current use of insulin (HCC) Hyperkalemia Hyperpotassemia Stage 3 chronic kidney disease (HCC) Liver transplant status (HCC) Balance problem Other symptoms involving nervous and musculoskeletal systems ZULU[place]A (dyspnea on exertion) Other dyspnea and respiratory abnormality Orthopnea Ventral hernia, recurrent- Primary Incisional hernia without mention of obstruction or gangrene Postoperative pain Other acute postoperative pain Abnormal stress test Other nonspecific abnormal cardiovascular system function study Elevated troponin level Other abnormal blood chemistry CKD (chronic kidney disease) stage 4, GFR 15-29 ml/min (HCC) Chronic kidney disease, Stage IV (severe) Liver transplant status (HCC) S/P hernia repair Other postprocedural status Hypertensive kidney disease with stage 4 chronic kidney disease (HCC) Pre-op evaluation- Primary Preoperative examination, unspecified Other specified abdominal hernia without obstruction or gangrene Preoperative examination Preoperative examination, unspecified Leg edema Edema History of cirrhosis of liver Personal history of other diseases of digestive system Gastroesophageal reflux disease without esophagitis Esophageal reflux Type 2 diabetes mellitus with stage 3b chronic kidney disease, without long-term current use of insulin (HCC) Hypertension, essential Unspecified essential hypertension History of deep venous thrombosis (DVT) of distal vein of right lower extremity History of stroke Transient ischemic attack (TIA), and cerebral infarction without residual deficits Dilation of aorta (HCC) Hypertensive kidney disease with stage 4 chronic kidney disease (HCC) Anemia of renal disease Anemia in chronic kidney disease ZULU[place]A (dyspnea on exertion) Other dyspnea and respiratory abnormality Preoperative examination- Primary Preoperative examination, unspecified Incisional hernia with obstruction but no gangrene Incisional hernia with obstruction Type 2 diabetes mellitus with stage 3b chronic kidney disease, without long-term current use of insulin (HCC) Essential hypertension Unspecified essential hypertension Gastroesophageal reflux disease without esophagitis Esophageal reflux History of alcohol abuse Nondependent alcohol abuse, in remission History of cirrhosis of liver Personal history of other diseases of digestive system History of encephalopathy Personal history of other disorders of nervous system and sense organs Mixed hyperlipidemia History of hemochromatosis Personal history of other endocrine, metabolic, and immunity disorders Chronic low back pain without sciatica, unspecified back pain laterality Anemia of renal disease Anemia in chronic kidney disease CKD (chronic kidney disease) stage 4, GFR 15-29 ml/min (HCC) Chronic kidney disease, Stage IV (severe) Dilation of aorta (HCC) ZULUAGA (dyspnea on exertion) Other dyspnea and respiratory abnormality History of deep venous thrombosis (DVT) of distal vein of right lower extremity History of stroke Transient ischemic attack (TIA), and cerebral infarction without residual deficits Hypertensive kidney disease with stage 4 chronic kidney disease (HCC) Lupus anticoagulant syndrome (HCC) Primary hypercoagulable state Prostate disorder Unspecified disorder of prostate Secondary hyperparathyroidism of renal origin (HCC) Secondary hyperparathyroidism (of renal origin) Thrombocytopenia (HCC) Thrombocytopenia, unspecified Obesity, Class I, BMI 30-34.9 Obesity, unspecified documented in this encounter [facility] for referral (narrative)* Diagnostic Procedure Only (Routine) - Closed Specialty Diagnoses / Procedures Referred By Contac t Referred To Contact [facility] Diagnoses Shortness of breath Procedures NM CARDIAC PERF STRESS/PHARM MYOCARDIAL SPECT MULTIPLE STUDIES Jonah Graves MD [address] [place] [address] [facility] [address] [place] [address] Referral ID Status Reason Start Date Expiration Date V isits Requested Visits Authorized [id number] Closed Auto-Generate d Referral 10/26/2021 12/10/2021 1 1 [facility] for referral (narrative)* Outpatient Procedure (Routine) - Authorized Specialty Diagnoses / Procedures Referred By Contac t Referred To Contact [facility] Diagnoses Essential hypertension Mixed hyperlipidemia Procedures ECG COMPLETE ECG ROUTINE ECG W/LEAST 12 LDS W/I&R Jonah Graves MD [address] [place] [address] [facility] [place] [address] [place] [address] Referral ID Status Reason Start Date Expiration Date Visits Requested Visits Authorized [id number] Authorized Auto-Generat ed Referral 11/29/2021 11/29/2022 1 1 [facility] for referral (narrative)* Outpatient Procedure (Routine) - Authorized Specialty Diagnoses / Procedures Referred By Contac t Referred To Contact [facility] Diagnoses Right leg swelling Procedures US LEG VEIN DVT UNL VAS LAB DUP-SCAN XTR VEINS UNILATERAL/LIMITED STUDY Claudia Roberts PA-C [address] [place] [address] [facility][Note 3] [facility] [place] [address] [place] [address] Referral ID Status Reason Start Date Expiration Date Visits Requested Visits Authorized [id number] Authorized Auto-Generat ed Referral 12/06/2022 12/06/2023 1 1 * Consult, Test, Treat (Routine) - Authorized Specialty Diagnoses / Procedures Referred By Contac t Referred To Contact Cardiology Diagnoses 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) Procedures CONSULT TO CARDIOLOGY OFFICE/OUTPATIENT NEW HIGH MDM 60-74 MINUTES Claudia Roberts PA-C [address] [place] [address] Referral ID Status Reason Start Date Expiration Date Visits Requested Visits Authorized [id number] Authorized PCP Requested Referral 12/06/2022 12/06/2023 1 1 [facility] for referral (narrative)* Outpatient Procedure (Routine) - Pending Review Specialty Diagnoses / Procedures Referred By Contac t [facility] Diagnoses Congestive heart failure, unspecified HF chronicity, unspecified heart failure type (HCC) 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) Thoracic aorta atherosclerosis (HCC) Encounter for screening for cardiovascular disorders Procedures ECG COMPLETE ECG ROUTINE ECG W/LEAST 12 LDS W/I&R Jonah Dawson MD [address] [place] [address] [facility] [address] [place] [address] Referral ID Status Reason Start Date Expiration Date Visits Requested Visits Authorized [id number] Pending Review Auto-Generat ed Referral 02/25/2023 02/25/2024 1 1 * Outpatient Procedure (Routine) - Pending Review Specialty Diagnoses / Procedures Referred By Contac t Referred To Contact [facility] [place] Diagnoses Congestive heart failure, unspecified HF chronicity, unspecified heart failure type (HCC) 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) Thoracic aorta atherosclerosis (HCC) Encounter for screening for cardiovascular disorders Procedures ECHO ECHO TTHRC R-T 2D W/WOM-MODE COMPL SPEC&COLR D Jonah Dawson MD [address] [place] [address] [address] Referral ID Status Reason Start Date Expiration Date Visits Requested Visits Authorized [id number] Pending Review Auto-Generat ed Referral 02/25/2023 02/25/2024 1 1 [facility] for referral (narrative)* Outpatient Procedure (Routine) - Closed Specialty Diagnoses / Procedures Referred By Contac t Referred To Contact [facility] Diagnoses Congestive heart failure, unspecified HF chronicity, unspecified heart failure type (HCC) 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) SOB (shortness of breath) Procedures ECG COMPLETE ECG ROUTINE ECG W/LEAST 12 LDS W/I&R Sanju Banerjee MD [address] [place] [address] [address] Referral ID Status Reason Start Date Expiration Date V isits Requested Visits Authorized [id number] Closed Auto-Generate d Referral 04/26/2023 04/25/2024 1 1 [facility] Procedure (Routine) - Authorized Specialty Diagnoses / Procedures Referred By Deisi dowling Referred To Contact [facility] [place] Diagnoses [place] (dyspnea on exertion) Hypertensive kidney disease with stage 4 chronic kidney disease (HCC) Abnormal stress test Procedures ECG COMPLETE ECG ROUTINE ECG W/LEAST 12 LDS W/I&R Jonah Dawson MD [address] [place] [address] [facility][Note 3] [facility] [place] [address] [place] [address] Referral ID Status Reason Start Date Expiration Date Visits Requested Visits Authorized [id number] Authorized Auto-Generat ed Referral 05/13/2023 05/12/2024 1 1 [facility] Summary Purpose Family History No Family History Records FoundNo Family History Records FoundNo Family History Records FoundNo Family History Records Found Advance Directives Date Activated Date Inactivated Comments 12/04/2023 11:34 PM 12/12/2023 3:20 PM Question Answer Comments Full Code Order Discussed With: Patient Documents on File Type Date Recorded Patient Manager Software Development Expl anation Advance Directive(s) 11/14/2021 1:51 PM Advance Directive(s) 10/27/2019 12:23 PM Advance Directive(s) 04/16/2019 2:13 PM Advance Directive(s) 03/16/2019 5:45 PM Advance Directive(s) 03/02/2019 6:27 AM Documents on File Type Date Recorded Patient Manager Software Development Expl anation Advance Directive(s) 11/14/2021 1:51 PM Advance Directive(s) 10/27/2019 12:23 PM Advance Directive(s) 04/16/2019 2:13 PM Advance Directive(s) 03/16/2019 5:45 PM Advance Directive(s) 03/02/2019 6:27 AM Date Activated Date Inactivated Comments 12/04/2023 11:34 PM Date Activated Date Inactivated Comments 12/04/2023 11:34 PM 12/12/2023 3:20 PM Question Answer Comments Full Code Order Discussed With: Patient Reason for Referral Specialty Diagnoses / Procedures Referred By Deisi dowling Referred To Contact Cardiology Diagnoses 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) Thoracic aorta atherosclerosis (HCC) Procedures CONSULT TO CARDIOLOGY OFFICE/OUTPATIENT [facility] 60-74 MINUTES Sanju Banerjee MD [address] [place] [address] Referral ID Status Reason Start Date Expiration Date Visits Requested Visits Authorized [id number] Authorized PCP Requested Referral 2 06/06/2023 1 1 Specialty Diagnoses / Procedures Referred By Contac t Referred To Contact Vito Beauchamp APRN.DIRECTOR [employer] [address] [place] [id number] Referral ID Status Reason Start Date Expiration Date V isits Requested Visits Authorized [id number] Pending Review 1 1 Specialty Diagnoses / Procedures Referred By Contac t Referred To Contact Diagnoses Hemodialysis-associated hypotension Chronic kidney disease (CKD), stage IV (severe) (HCC) Type 2 diabetes mellitus with stage 4 chronic kidney disease, with long-term current use of insulin ([facility]) Urge incontinence of urine Incontinence of feces, unspecified fecal incontinence type Physical debility Decreased transfer ability Procedures CONSULT TO [facility] Sanju Banerjee MD [address] [place] [address] [address] [place] [address] Referral ID Status Reason Start Date Expiration Date V isits Requested Visits Authorized [id number] Denied PCP Requested Referral 10/26/2023 01/24/2024 1 0 Specialty Diagnoses / Procedures Referred By Contac t Referred To Contact Urology Diagnoses Benign prostatic hyperplasia with urinary hesitancy Procedures CONSULT TO UROLOGY OFFICE/OUTPATIENT [facility] 60 MINUTES Sanju Banerjee MD [address] [place] [address] Referral ID Status Reason Start Date Expiration Date Visits Requested Visits Authorized [id number] Authorized PCP Requested Referral 10/26/2023 10/25/2024 1 1 Specialty Diagnoses / Procedures Referred By Contac t Referred To Contact Diagnoses Liver replaced by transplant (HCC) Vito Beauchamp APRN.CNP [address] [place] [address] Referral ID Status Reason Start Date Expiration Date Visits Re quested Visits Authorized [id number] Closed 1 1 Medications Administered Section Active Administered Medications - up to 3 most recent administrations Medication Order MAR Action Action Date Dose Rate Site fluorescein-benoxinate 0.25-0.4 % 1 Drop (FLURESS) 1 Drop, BOTH EYES, DIRECTED, Starting on Sat04/18/23 at 0930, Until Sat04/18/23 at 2128, Administer for applanation tonometry. In the event of a Fluress shortage, administer [place]-Fluor 1 drop into both eyes as directed for applanation tonometry Given 04/18/2023 9:43 AM EDT 1 Drop PHENYLephrine 2.5 % 1 Drop (AK-DILATE, ARNULFO-SYNEPHRINE) 1 Drop, BOTH EYES, DIRECTED, Starting on Sat04/18/23 at 0930, Until Sat04/18/23 at 2128, Administer for dilation PROTECT FROM LIGHT Given 04/18/2023 9:43 AM EDT 1 Drop tropicamide 1 % 1 Drop (MYDRIACYL) 1 Drop, BOTH EYES, DIRECTED, Starting on Sat04/18/23 at 0930, Until Sat04/18/23 at 2128, Administer for dilation Given 04/18/2023 9:43 AM EDT 1 Drop Inactive Administered Medications - up to 3 most recent administrations Medication Order MAR Action Action Date Dose Rate Site bevacizumab ophthalmic syringe 1.25 mg/0.05 mL (AVASTIN) 1.25 mg, ONE TIME INJECTION, 1 dose, Starting on Sat04/18/23 at 1558, Until Sat04/18/23 at 1558 Given 04/18/2023 3:58 PM EDT 1.25 mg Left Active Administered Medications - up to 3 most recent administrations Medication Order MAR Action Action Date Dose Rate Site PHENYLephrine 2.5 % 1 Drop (AK-DILATE, ARNULFO-SYNEPHRINE) 1 Drop, BOTH EYES, DIRECTED, Starting on Sat07/24/23 at 1130, Until Sat07/24/23 at 2329, Administer for dilation PROTECT FROM LIGHT, OPHT CLINIC MED ORDERS Given 07/24/2023 11:20 AM EST 1 Drop proparacaine 0.5 % 1 Drop (ALCAINE) 1 Drop, BOTH EYES, DIRECTED, Starting on Sat07/24/23 at 1130, Until Sat07/24/23 at 2329, Administer for pneumo tonometry, tonopen tonometry, or pachymetry. In the event of a proparacaine shortage, administer 1 drop of tetracaine 0.5% ophthalmic drops into both eyes as directed for pneumo tonometry, tonopen tonometry, or pachymetry, OPHT CLINIC MED ORDERS Given 07/24/2023 11:20 AM EST 1 Drop tropicamide 1 % 1 Drop (MYDRIACYL) 1 Drop, BOTH EYES, DIRECTED, Starting on Sat07/24/23 at 1130, Until Sat07/24/23 at 2329, Administer for dilation, OPHT CLINIC MED ORDERS Given 07/24/2023 11:20 AM EST 1 Drop Inactive Administered Medications - up to 3 most recent administrations Medication Order MAR Action Action Date Dose Rate Site bevacizumab ophthalmic syringe 1.25 mg/0.05 mL (AVASTIN) 1.25 mg, ONCE, 1 dose, Starting on Sat07/24/23 at 1320, Until Sat07/24/23 at 1320 Given 07/24/2023 1:20 PM EST 1.25 mg Le ft Health Concerns Infection Onset Date Last Indicated Resolved Time COVID-19 Rule-Out 09/16/2023 09/16/2023 09/16/2023 11:45 PM EST Additional Source Comments (unrecognized sect ion and content) No Status Records FoundNo Status Records FoundNo Status Records FoundNo Status Records Found INFORMATION SOURCE (unrecogn ized section and content) DATE CREATED AUTHOR 12/14/2019 [facility] DATE CREATED AUTHOR AUTHOR'S ORGANIZ ATION 12/30/2019 [facility] DATE CREATED AUTHOR AUTHOR'S ORGANIZ ATION 09/22/2023 [facility] DATE CREATED AUTHOR AUTHOR'S ORGANIZ ATION 05/14/2024 [facility] Source Comments (unrecognize d section and content) In the event this informatio n is protected by the Federal Confidentiality of Alcohol and Drug Abuse Patient Records regulations: The Federal rules restrict any use of the information to criminally investigate or prosecute any alcohol or drug abuse patient.[facility] the event this information is protected by the Federal Confidentiality of Alcohol and Drug Abuse Patient Records regulations: The Federal rules restrict any use of the information to criminally investigate or prosecute any alcohol or drug abuse patient.[facility] HospitalIn the event this information is protected by the Federal Confidentiality of Alcohol and Drug Abuse Patient Records regulations: The Federal rules restrict any use of the information to criminally investigate or prosecute any alcohol or drug abuse patient.[facility] HospitalIn the event this information is protected by the Federal Confidentiality of Alcohol and Drug Abuse Patient Records regulations: The Federal rules restrict any use of the information to criminally investigate or prosecute any alcohol or drug abuse patient.[facility] HospitalIn the event this information is protected by the Federal Confidentiality of Alcohol and Drug Abuse Patient Records regulations: The Federal rules restrict any use of the information to criminally investigate or prosecute any alcohol or drug abuse patient.[facility] HospitalIn the event this information is protected by the Federal Confidentiality of Alcohol and Drug Abuse Patient Records regulations: The Federal rules restrict any use of the information to criminally investigate or prosecute any alcohol or drug abuse patient.[facility] HospitalIn the event this information is protected by the Federal Confidentiality of Alcohol and Drug Abuse Patient Records regulations: The Federal rules restrict any use of the information to criminally investigate or prosecute any alcohol or drug abuse patient.[facility] HospitalIn the event this information is protected by the Federal Confidentiality of Alcohol and Drug Abuse Patient Records regulations: The Federal rules restrict any use of the information to criminally investigate or prosecute any alcohol or drug abuse patient.[facility] HospitalIn the event this information is protected by the Federal Confidentiality of Alcohol and Drug Abuse Patient Records regulations: The Federal rules restrict any use of the information to criminally investigate or prosecute any alcohol or drug abuse patient.[facility] HospitalIn the event this information is protected by the Federal Confidentiality of Alcohol and Drug Abuse Patient Records regulations: The Federal rules restrict any use of the information to criminally investigate or prosecute any alcohol or drug abuse patient.[facility] HospitalIn the event this information is protected by the Federal Confidentiality of Alcohol and Drug Abuse Patient Records regulations: The Federal rules restrict any use of the information to criminally investigate or prosecute any alcohol or drug abuse patient.[facility] HospitalIn the event this information is protected by the Federal Confidentiality of Alcohol and Drug Abuse Patient Records regulations: The Federal rules restrict any use of the information to criminally investigate or prosecute any alcohol or drug abuse patient.[facility] HospitalIn the event this information is protected by the Federal Confidentiality of Alcohol and Drug Abuse Patient Records regulations: The Federal rules restrict any use of the information to criminally investigate or prosecute any alcohol or drug abuse patient.[facility] HospitalIn the event this information is protected by the Federal Confidentiality of Alcohol and Drug Abuse Patient Records regulations: The Federal rules restrict any use of the information to criminally investigate or prosecute any alcohol or drug abuse patient.[facility] HospitalIn the event this information is protected by the Federal Confidentiality of Alcohol and Drug Abuse Patient Records regulations: The Federal rules restrict any use of the information to criminally investigate or prosecute any alcohol or drug abuse patient.[facility] HospitalIn the event this information is protected by the Federal Confidentiality of Alcohol and Drug Abuse Patient Records regulations: The Federal rules restrict any use of the information to criminally investigate or prosecute any alcohol or drug abuse patient.[facility] HospitalIn the event this information is protected by the Federal Confidentiality of Alcohol and Drug Abuse Patient Records regulations: The Federal rules restrict any use of the information to criminally investigate or prosecute any alcohol or drug abuse patient.[facility] HospitalIn the event this information is protected by the Federal Confidentiality of Alcohol and Drug Abuse Patient Records regulations: The Federal rules restrict any use of the information to criminally investigate or prosecute any alcohol or drug abuse patient.[facility] HospitalIn the event this information is protected by the Federal Confidentiality of Alcohol and Drug Abuse Patient Records regulations: The Federal rules restrict any use of the information to criminally investigate or prosecute any alcohol or drug abuse patient.[facility] HospitalIn the event this information is protected by the Federal Confidentiality of Alcohol and Drug Abuse Patient Records regulations: The Federal rules restrict any use of the information to criminally investigate or prosecute any alcohol or drug abuse patient.[facility] HospitalIn the event this information is protected by the Federal Confidentiality of Alcohol and Drug Abuse Patient Records regulations: The Federal rules restrict any use of the information to criminally investigate or prosecute any alcohol or drug abuse patient.[facility] HospitalIn the event this information is protected by the Federal Confidentiality of Alcohol and Drug Abuse Patient Records regulations: The Federal rules restrict any use of the information to criminally investigate or prosecute any alcohol or drug abuse patient.[facility] HospitalIn the event this information is protected by the Federal Confidentiality of Alcohol and Drug Abuse Patient Records regulations: The Federal rules restrict any use of the information to criminally investigate or prosecute any alcohol or drug abuse patient.[facility] HospitalIn the event this information is protected by the Federal Confidentiality of Alcohol and Drug Abuse Patient Records regulations: The Federal rules restrict any use of the information to criminally investigate or prosecute any alcohol or drug abuse patient.[facility] HospitalIn the event this information is protected by the Federal Confidentiality of Alcohol and Drug Abuse Patient Records regulations: The Federal rules restrict any use of the information to criminally investigate or prosecute any alcohol or drug abuse patient.[facility] HospitalIn the event this information is protected by the Federal Confidentiality of Alcohol and Drug Abuse Patient Records regulations: The Federal rules restrict any use of the information to criminally investigate or prosecute any alcohol or drug abuse patient.[facility] HospitalIn the event this information is protected by the Federal Confidentiality of Alcohol and Drug Abuse Patient Records regulations: The Federal rules restrict any use of the information to criminally investigate or prosecute any alcohol or drug abuse patient.[facility] HospitalIn the event this information is protected by the Federal Confidentiality of Alcohol and Drug Abuse Patient Records regulations: The Federal rules restrict any use of the information to criminally investigate or prosecute any alcohol or drug abuse patient.[facility] HospitalIn the event this information is protected by the Federal Confidentiality of Alcohol and Drug Abuse Patient Records regulations: The Federal rules restrict any use of the information to criminally investigate or prosecute any alcohol or drug abuse patient.[facility] HospitalIn the event this information is protected by the Federal Confidentiality of Alcohol and Drug Abuse Patient Records regulations: The Federal rules restrict any use of the information to criminally investigate or prosecute any alcohol or drug abuse patient.[facility] HospitalIn the event this information is protected by the Federal Confidentiality of Alcohol and Drug Abuse Patient Records regulations: The Federal rules restrict any use of the information to criminally investigate or prosecute any alcohol or drug abuse patient.[facility] HospitalIn the event this information is protected by the Federal Confidentiality of Alcohol and Drug Abuse Patient Records regulations: The Federal rules restrict any use of the information to criminally investigate or prosecute any alcohol or drug abuse patient.[facility] HospitalIn the event this information is protected by the Federal Confidentiality of Alcohol and Drug Abuse Patient Records regulations: The Federal rules restrict any use of the information to criminally investigate or prosecute any alcohol or drug abuse patient.[facility] HospitalIn the event this information is protected by the Federal Confidentiality of Alcohol and Drug Abuse Patient Records regulations: The Federal rules restrict any use of the information to criminally investigate or prosecute any alcohol or drug abuse patient.[facility] HospitalIn the event this information is protected by the Federal Confidentiality of Alcohol and Drug Abuse Patient Records regulations: The Federal rules restrict any use of the information to criminally investigate or prosecute any alcohol or drug abuse patient.[facility] HospitalIn the event this information is protected by the Federal Confidentiality of Alcohol and Drug Abuse Patient Records regulations: The Federal rules restrict any use of the information to criminally investigate or prosecute any alcohol or drug abuse patient.[facility] HospitalIn the event this information is protected by the Federal Confidentiality of Alcohol and Drug Abuse Patient Records regulations: The Federal rules restrict any use of the information to criminally investigate or prosecute any alcohol or drug abuse patient.[facility] HospitalIn the event this information is protected by the Federal Confidentiality of Alcohol and Drug Abuse Patient Records regulations: The Federal rules restrict any use of the information to criminally investigate or prosecute any alcohol or drug abuse patient.[facility] HospitalIn the event this information is protected by the Federal Confidentiality of Alcohol and Drug Abuse Patient Records regulations: The Federal rules restrict any use of the information to criminally investigate or prosecute any alcohol or drug abuse patient.[facility] HospitalIn the event this information is protected by the Federal Confidentiality of Alcohol and Drug Abuse Patient Records regulations: The Federal rules restrict any use of the information to criminally investigate or prosecute any alcohol or drug abuse patient.[facility] HospitalIn the event this information is protected by the Federal Confidentiality of Alcohol and Drug Abuse Patient Records regulations: The Federal rules restrict any use of the information to criminally investigate or prosecute any alcohol or drug abuse patient.[facility] HospitalIn the event this information is protected by the Federal Confidentiality of Alcohol and Drug Abuse Patient Records regulations: The Federal rules restrict any use of the information to criminally investigate or prosecute any alcohol or drug abuse patient.[facility] HospitalIn the event this information is protected by the Federal Confidentiality of Alcohol and Drug Abuse Patient Records regulations: The Federal rules restrict any use of the information to criminally investigate or prosecute any alcohol or drug abuse patient.[facility] HospitalIn the event this information is protected by the Federal Confidentiality of Alcohol and Drug Abuse Patient Records regulations: The Federal rules restrict any use of the information to criminally investigate or prosecute any alcohol or drug abuse patient.[facility] HospitalIn the event this information is protected by the Federal Confidentiality of Alcohol and Drug Abuse Patient Records regulations: The Federal rules restrict any use of the information to criminally investigate or prosecute any alcohol or drug abuse patient.[facility] HospitalIn the event this information is protected by the Federal Confidentiality of Alcohol and Drug Abuse Patient Records regulations: The Federal rules restrict any use of the information to criminally investigate or prosecute any alcohol or drug abuse patient.[facility] HospitalIn the event this information is protected by the Federal Confidentiality of Alcohol and Drug Abuse Patient Records regulations: The Federal rules restrict any use of the information to criminally investigate or prosecute any alcohol or drug abuse patient.[facility] HospitalIn the event this information is protected by the Federal Confidentiality of Alcohol and Drug Abuse Patient Records regulations: The Federal rules restrict any use of the information to criminally investigate or prosecute any alcohol or drug abuse patient.[facility] HospitalIn the event this information is protected by the Federal Confidentiality of Alcohol and Drug Abuse Patient Records regulations: The Federal rules restrict any use of the information to criminally investigate or prosecute any alcohol or drug abuse patient.[facility] HospitalIn the event this information is protected by the Federal Confidentiality of Alcohol and Drug Abuse Patient Records regulations: The Federal rules restrict any use of the information to criminally investigate or prosecute any alcohol or drug abuse patient.[facility] HospitalIn the event this information is protected by the Federal Confidentiality of Alcohol and Drug Abuse Patient Records regulations: The Federal rules restrict any use of the information to criminally investigate or prosecute any alcohol or drug abuse patient.[facility]In the event this information is protected by the Federal Confidentiality of Alcohol and Drug Abuse Patient Records regulations: The Federal rules restrict any use of the information to criminally investigate or prosecute any alcohol or drug abuse patient.[facility] HospitalIn the event this information is protected by the Federal Confidentiality of Alcohol and Drug Abuse Patient Records regulations: The Federal rules restrict any use of the information to criminally investigate or prosecute any alcohol or drug abuse patient.[facility] HospitalIn the event this information is protected by the Federal Confidentiality of Alcohol and Drug Abuse Patient Records regulations: The Federal rules restrict any use of the information to criminally investigate or prosecute any alcohol or drug abuse patient.[facility] HospitalIn the event this information is protected by the Federal Confidentiality of Alcohol and Drug Abuse Patient Records regulations: The Federal rules restrict any use of the information to criminally investigate or prosecute any alcohol or drug abuse patient.[facility] HospitalIn the event this information is protected by the Federal Confidentiality of Alcohol and Drug Abuse Patient Records regulations: The Federal rules restrict any use of the information to criminally investigate or prosecute any alcohol or drug abuse patient.[facility] HospitalIn the event this information is protected by the Federal Confidentiality of Alcohol and Drug Abuse Patient Records regulations: The Federal rules restrict any use of the information to criminally investigate or prosecute any alcohol or drug abuse patient.[facility] HospitalIn the event this information is protected by the Federal Confidentiality of Alcohol and Drug Abuse Patient Records regulations: The Federal rules restrict any use of the information to criminally investigate or prosecute any alcohol or drug abuse patient.[facility] HospitalIn the event this information is protected by the Federal Confidentiality of Alcohol and Drug Abuse Patient Records regulations: The Federal rules restrict any use of the information to criminally investigate or prosecute any alcohol or drug abuse patient.[facility] HospitalIn the event this information is protected by the Federal Confidentiality of Alcohol and Drug Abuse Patient Records regulations: The Federal rules restrict any use of the information to criminally investigate or prosecute any alcohol or drug abuse patient.[facility] HospitalIn the event this information is protected by the Federal Confidentiality of Alcohol and Drug Abuse Patient Records regulations: The Federal rules restrict any use of the information to criminally investigate or prosecute any alcohol or drug abuse patient.[facility] HospitalIn the event this information is protected by the Federal Confidentiality of Alcohol and Drug Abuse Patient Records regulations: The Federal rules restrict any use of the information to criminally investigate or prosecute any alcohol or drug abuse patient.[facility] HospitalIn the event this information is protected by the Federal Confidentiality of Alcohol and Drug Abuse Patient Records regulations: The Federal rules restrict any use of the information to criminally investigate or prosecute any alcohol or drug abuse patient.[facility] HospitalIn the event this information is protected by the Federal Confidentiality of Alcohol and Drug Abuse Patient Records regulations: The Federal rules restrict any use of the information to criminally investigate or prosecute any alcohol or drug abuse patient.[facility] HospitalIn the event this information is protected by the Federal Confidentiality of Alcohol and Drug Abuse Patient Records regulations: The Federal rules restrict any use of the information to criminally investigate or prosecute any alcohol or drug abuse patient.[facility] HospitalIn the event this information is protected by the Federal Confidentiality of Alcohol and Drug Abuse Patient Records regulations: The Federal rules restrict any use of the information to criminally investigate or prosecute any alcohol or drug abuse patient.[facility] HospitalIn the event this information is protected by the Federal Confidentiality of Alcohol and Drug Abuse Patient Records regulations: The Federal rules restrict any use of the information to criminally investigate or prosecute any alcohol or drug abuse patient.[facility] HospitalIn the event this information is protected by the Federal Confidentiality of Alcohol and Drug Abuse Patient Records regulations: The Federal rules restrict any use of the information to criminally investigate or prosecute any alcohol or drug abuse patient.[facility] HospitalIn the event this information is protected by the Federal Confidentiality of Alcohol and Drug Abuse Patient Records regulations: The Federal rules restrict any use of the information to criminally investigate or prosecute any alcohol or drug abuse patient.[facility] HospitalIn the event this information is protected by the Federal Confidentiality of Alcohol and Drug Abuse Patient Records regulations: The Federal rules restrict any use of the information to criminally investigate or prosecute any alcohol or drug abuse patient.[facility] HospitalIn the event this information is protected by the Federal Confidentiality of Alcohol and Drug Abuse Patient Records regulations: The Federal rules restrict any use of the information to criminally investigate or prosecute any alcohol or drug abuse patient.[facility] HospitalIn the event this information is protected by the Federal Confidentiality of Alcohol and Drug Abuse Patient Records regulations: The Federal rules restrict any use of the information to criminally investigate or prosecute any alcohol or drug abuse patient.[facility] HospitalIn the event this information is protected by the Federal Confidentiality of Alcohol and Drug Abuse Patient Records regulations: The Federal rules restrict any use of the information to criminally investigate or prosecute any alcohol or drug abuse patient.[facility] HospitalIn the event this information is protected by the Federal Confidentiality of Alcohol and Drug Abuse Patient Records regulations: The Federal rules restrict any use of the information to criminally investigate or prosecute any alcohol or drug abuse patient.[facility] HospitalIn the event this information is protected by the Federal Confidentiality of Alcohol and Drug Abuse Patient Records regulations: The Federal rules restrict any use of the information to criminally investigate or prosecute any alcohol or drug abuse patient.[facility] HospitalIn the event this information is protected by the Federal Confidentiality of Alcohol and Drug Abuse Patient Records regulations: The Federal rules restrict any use of the information to criminally investigate or prosecute any alcohol or drug abuse patient.[facility] HospitalIn the event this information is protected by the Federal Confidentiality of Alcohol and Drug Abuse Patient Records regulations: The Federal rules restrict any use of the information to criminally investigate or prosecute any alcohol or drug abuse patient.[facility] HospitalIn the event this information is protected by the Federal Confidentiality of Alcohol and Drug Abuse Patient Records regulations: The Federal rules restrict any use of the information to criminally investigate or prosecute any alcohol or drug abuse patient.[facility] HospitalIn the event this information is protected by the Federal Confidentiality of Alcohol and Drug Abuse Patient Records regulations: The Federal rules restrict any use of the information to criminally investigate or prosecute any alcohol or drug abuse patient.[facility] HospitalIn the event this information is protected by the Federal Confidentiality of Alcohol and Drug Abuse Patient Records regulations: The Federal rules restrict any use of the information to criminally investigate or prosecute any alcohol or drug abuse patient.[facility] HospitalIn the event this information is protected by the Federal Confidentiality of Alcohol and Drug Abuse Patient Records regulations: The Federal rules restrict any use of the information to criminally investigate or prosecute any alcohol or drug abuse patient.[facility] HospitalIn the event this information is protected by the Federal Confidentiality of Alcohol and Drug Abuse Patient Records regulations: The Federal rules restrict any use of the information to criminally investigate or prosecute any alcohol or drug abuse patient.[facility] HospitalIn the event this information is protected by the Federal Confidentiality of Alcohol and Drug Abuse Patient Records regulations: The Federal rules restrict any use of the information to criminally investigate or prosecute any alcohol or drug abuse patient.[facility] HospitalIn the event this information is protected by the Federal Confidentiality of Alcohol and Drug Abuse Patient Records regulations: The Federal rules restrict any use of the information to criminally investigate or prosecute any alcohol or drug abuse patient.[facility] HospitalIn the event this information is protected by the Federal Confidentiality of Alcohol and Drug Abuse Patient Records regulations: The Federal rules restrict any use of the information to criminally investigate or prosecute any alcohol or drug abuse patient.[facility] HospitalIn the event this information is protected by the Federal Confidentiality of Alcohol and Drug Abuse Patient Records regulations: The Federal rules restrict any use of the information to criminally investigate or prosecute any alcohol or drug abuse patient.[facility] HospitalIn the event this information is protected by the Federal Confidentiality of Alcohol and Drug Abuse Patient Records regulations: The Federal rules restrict any use of the information to criminally investigate or prosecute any alcohol or drug abuse patient.[facility] HospitalIn the event this information is protected by the Federal Confidentiality of Alcohol and Drug Abuse Patient Records regulations: The Federal rules restrict any use of the information to criminally investigate or prosecute any alcohol or drug abuse patient.[facility] HospitalIn the event this information is protected by the Federal Confidentiality of Alcohol and Drug Abuse Patient Records regulations: The Federal rules restrict any use of the information to criminally investigate or prosecute any alcohol or drug abuse patient.[facility] HospitalIn the event this information is protected by the Federal Confidentiality of Alcohol and Drug Abuse Patient Records regulations: The Federal rules restrict any use of the information to criminally investigate or prosecute any alcohol or drug abuse patient.[facility] HospitalIn the event this information is protected by the Federal Confidentiality of Alcohol and Drug Abuse Patient Records regulations: The Federal rules restrict any use of the information to criminally investigate or prosecute any alcohol or drug abuse patient.[facility] HospitalIn the event this information is protected by the Federal Confidentiality of Alcohol and Drug Abuse Patient Records regulations: The Federal rules restrict any use of the information to criminally investigate or prosecute any alcohol or drug abuse patient.[facility] HospitalIn the event this information is protected by the Federal Confidentiality of Alcohol and Drug Abuse Patient Records regulations: The Federal rules restrict any use of the information to criminally investigate or prosecute any alcohol or drug abuse patient.[facility] HospitalIn the event this information is protected by the Federal Confidentiality of Alcohol and Drug Abuse Patient Records regulations: The Federal rules restrict any use of the information to criminally investigate or prosecute any alcohol or drug abuse patient.[facility] HospitalIn the event this information is protected by the Federal Confidentiality of Alcohol and Drug Abuse Patient Records regulations: The Federal rules restrict any use of the information to criminally investigate or prosecute any alcohol or drug abuse patient.[facility] HospitalIn the event this information is protected by the Federal Confidentiality of Alcohol and Drug Abuse Patient Records regulations: The Federal rules restrict any use of the information to criminally investigate or prosecute any alcohol or drug abuse patient.[facility] HospitalIn the event this information is protected by the Federal Confidentiality of Alcohol and Drug Abuse Patient Records regulations: The Federal rules restrict any use of the information to criminally investigate or prosecute any alcohol or drug abuse patient.[facility] HospitalIn the event this information is protected by the Federal Confidentiality of Alcohol and Drug Abuse Patient Records regulations: The Federal rules restrict any use of the information to criminally investigate or prosecute any alcohol or drug abuse patient.[facility] HospitalIn the event this information is protected by the Federal Confidentiality of Alcohol and Drug Abuse Patient Records regulations: The Federal rules restrict any use of the information to criminally investigate or prosecute any alcohol or drug abuse patient.[facility] HospitalIn the event this information is protected by the Federal Confidentiality of Alcohol and Drug Abuse Patient Records regulations: The Federal rules restrict any use of the information to criminally investigate or prosecute any alcohol or drug abuse patient.[facility] HospitalIn the event this information is protected by the Federal Confidentiality of Alcohol and Drug Abuse Patient Records regulations: The Federal rules restrict any use of the information to criminally investigate or prosecute any alcohol or drug abuse patient.[facility] HospitalIn the event this information is protected by the Federal Confidentiality of Alcohol and Drug Abuse Patient Records regulations: The Federal rules restrict any use of the information to criminally investigate or prosecute any alcohol or drug abuse patient.[facility] HospitalIn the event this information is protected by the Federal Confidentiality of Alcohol and Drug Abuse Patient Records regulations: The Federal rules restrict any use of the information to criminally investigate or prosecute any alcohol or drug abuse patient.[facility] HospitalIn the event this information is protected by the Federal Confidentiality of Alcohol and Drug Abuse Patient Records regulations: The Federal rules restrict any use of the information to criminally investigate or prosecute any alcohol or drug abuse patient.[facility] HospitalIn the event this information is protected by the Federal Confidentiality of Alcohol and Drug Abuse Patient Records regulations: The Federal rules restrict any use of the information to criminally investigate or prosecute any alcohol or drug abuse patient.[facility] HospitalIn the event this information is protected by the Federal Confidentiality of Alcohol and Drug Abuse Patient Records regulations: The Federal rules restrict any use of the information to criminally investigate or prosecute any alcohol or drug abuse patient.[facility] HospitalIn the event this information is protected by the Federal Confidentiality of Alcohol and Drug Abuse Patient Records regulations: The Federal rules restrict any use of the information to criminally investigate or prosecute any alcohol or drug abuse patient.[facility] HospitalIn the event this information is protected by the Federal Confidentiality of Alcohol and Drug Abuse Patient Records regulations: The Federal rules restrict any use of the information to criminally investigate or prosecute any alcohol or drug abuse patient.[facility] HospitalIn the event this information is protected by the Federal Confidentiality of Alcohol and Drug Abuse Patient Records regulations: The Federal rules restrict any use of the information to criminally investigate or prosecute any alcohol or drug abuse patient.[facility] HospitalIn the event this information is protected by the Federal Confidentiality of Alcohol and Drug Abuse Patient Records regulations: The Federal rules restrict any use of the information to criminally investigate or prosecute any alcohol or drug abuse patient.[facility] HospitalIn the event this information is protected by the Federal Confidentiality of Alcohol and Drug Abuse Patient Records regulations: The Federal rules restrict any use of the information to criminally investigate or prosecute any alcohol or drug abuse patient.[facility] HospitalIn the event this information is protected by the Federal Confidentiality of Alcohol and Drug Abuse Patient Records regulations: The Federal rules restrict any use of the information to criminally investigate or prosecute any alcohol or drug abuse patient.[facility] HospitalIn the event this information is protected by the Federal Confidentiality of Alcohol and Drug Abuse Patient Records regulations: The Federal rules restrict any use of the information to criminally investigate or prosecute any alcohol or drug abuse patient.[facility] HospitalIn the event this information is protected by the Federal Confidentiality of Alcohol and Drug Abuse Patient Records regulations: The Federal rules restrict any use of the information to criminally investigate or prosecute any alcohol or drug abuse patient.[facility] HospitalIn the event this information is protected by the Federal Confidentiality of Alcohol and Drug Abuse Patient Records regulations: The Federal rules restrict any use of the information to criminally investigate or prosecute any alcohol or drug abuse patient.[facility] HospitalIn the event this information is protected by the Federal Confidentiality of Alcohol and Drug Abuse Patient Records regulations: The Federal rules restrict any use of the information to criminally investigate or prosecute any alcohol or drug abuse patient.[facility] HospitalIn the event this information is protected by the Federal Confidentiality of Alcohol and Drug Abuse Patient Records regulations: The Federal rules restrict any use of the information to criminally investigate or prosecute any alcohol or drug abuse patient.[facility] HospitalIn the event this information is protected by the Federal Confidentiality of Alcohol and Drug Abuse Patient Records regulations: The Federal rules restrict any use of the information to criminally investigate or prosecute any alcohol or drug abuse patient.[facility] HospitalIn the event this information is protected by the Federal Confidentiality of Alcohol and Drug Abuse Patient Records regulations: The Federal rules restrict any use of the information to criminally investigate or prosecute any alcohol or drug abuse patient.[facility] HospitalIn the event this information is protected by the Federal Confidentiality of Alcohol and Drug Abuse Patient Records regulations: The Federal rules restrict any use of the information to criminally investigate or prosecute any alcohol or drug abuse patient.[facility]In the event this information is protected by the Federal Confidentiality of Alcohol and Drug Abuse Patient Records regulations: The Federal rules restrict any use of the information to criminally investigate or prosecute any alcohol or drug abuse patient.[facility] HospitalIn the event this information is protected by the Federal Confidentiality of Alcohol and Drug Abuse Patient Records regulations: The Federal rules restrict any use of the information to criminally investigate or prosecute any alcohol or drug abuse patient.[facility]In the event this information is protected by the Federal Confidentiality of Alcohol and Drug Abuse Patient Records regulations: The Federal rules restrict any use of the information to criminally investigate or prosecute any alcohol or drug abuse patient.[facility]In the event this information is protected by the Federal Confidentiality of Alcohol and Drug Abuse Patient Records regulations: The Federal rules restrict any use of the information to criminally investigate or prosecute any alcohol or drug abuse patient.[facility]In the event this information is protected by the Federal Confidentiality of Alcohol and Drug Abuse Patient Records regulations: The Federal rules restrict any use of the information to criminally investigate or prosecute any alcohol or drug abuse patient.[facility]In the event this information is protected by the Federal Confidentiality of Alcohol and Drug Abuse Patient Records regulations: The Federal rules restrict any use of the information to criminally investigate or prosecute any alcohol or drug abuse patient.[facility]In the event this information is protected by the Federal Confidentiality of Alcohol and Drug Abuse Patient Records regulations: The Federal rules restrict any use of the information to criminally investigate or prosecute any alcohol or drug abuse patient.[facility]In the event this information is protected by the Federal Confidentiality of Alcohol and Drug Abuse Patient Records regulations: The Federal rules restrict any use of the information to criminally investigate or prosecute any alcohol or drug abuse patient.[facility]In the event this information is protected by the Federal Confidentiality of Alcohol and Drug Abuse Patient Records regulations: The Federal rules restrict any use of the information to criminally investigate or prosecute any alcohol or drug abuse patient.[facility]In the event this information is protected by the Federal Confidentiality of Alcohol and Drug Abuse Patient Records regulations: The Federal rules restrict any use of the information to criminally investigate or prosecute any alcohol or drug abuse patient.[facility]In the event this information is protected by the Federal Confidentiality of Alcohol and Drug Abuse Patient Records regulations: The Federal rules restrict any use of the information to criminally investigate or prosecute any alcohol or drug abuse patient.[facility] HospitalIn the event this information is protected by the Federal Confidentiality of Alcohol and Drug Abuse Patient Records regulations: The Federal rules restrict any use of the information to criminally investigate or prosecute any alcohol or drug abuse patient.[facility] HospitalIn the event this information is protected by the Federal Confidentiality of Alcohol and Drug Abuse Patient Records regulations: The Federal rules restrict any use of the information to criminally investigate or prosecute any alcohol or drug abuse patient.[facility] HospitalIn the event this information is protected by the Federal Confidentiality of Alcohol and Drug Abuse Patient Records regulations: The Federal rules restrict any use of the information to criminally investigate or prosecute any alcohol or drug abuse patient.[facility] HospitalIn the event this information is protected by the Federal Confidentiality of Alcohol and Drug Abuse Patient Records regulations: The Federal rules restrict any use of the information to criminally investigate or prosecute any alcohol or drug abuse patient.[facility] HospitalIn the event this information is protected by the Federal Confidentiality of Alcohol and Drug Abuse Patient Records regulations: The Federal rules restrict any use of the information to criminally investigate or prosecute any alcohol or drug abuse patient.[facility] HospitalIn the event this information is protected by the Federal Confidentiality of Alcohol and Drug Abuse Patient Records regulations: The Federal rules restrict any use of the information to criminally investigate or prosecute any alcohol or drug abuse patient.[facility] HospitalIn the event this information is protected by the Federal Confidentiality of Alcohol and Drug Abuse Patient Records regulations: The Federal rules restrict any use of the information to criminally investigate or prosecute any alcohol or drug abuse patient.[facility] HospitalIn the event this information is protected by the Federal Confidentiality of Alcohol and Drug Abuse Patient Records regulations: The Federal rules restrict any use of the information to criminally investigate or prosecute any alcohol or drug abuse patient.[facility] HospitalIn the event this information is protected by the Federal Confidentiality of Alcohol and Drug Abuse Patient Records regulations: The Federal rules restrict any use of the information to criminally investigate or prosecute any alcohol or drug abuse patient.[facility] HospitalIn the event this information is protected by the Federal Confidentiality of Alcohol and Drug Abuse Patient Records regulations: The Federal rules restrict any use of the information to criminally investigate or prosecute any alcohol or drug abuse patient.[facility] HospitalIn the event this information is protected by the Federal Confidentiality of Alcohol and Drug Abuse Patient Records regulations: The Federal rules restrict any use of the information to criminally investigate or prosecute any alcohol or drug abuse patient.[facility] HospitalIn the event this information is protected by the Federal Confidentiality of Alcohol and Drug Abuse Patient Records regulations: The Federal rules restrict any use of the information to criminally investigate or prosecute any alcohol or drug abuse patient.[facility] HospitalIn the event this information is protected by the Federal Confidentiality of Alcohol and Drug Abuse Patient Records regulations: The Federal rules restrict any use of the information to criminally investigate or prosecute any alcohol or drug abuse patient.[facility] HospitalIn the event this information is protected by the Federal Confidentiality of Alcohol and Drug Abuse Patient Records regulations: The Federal rules restrict any use of the information to criminally investigate or prosecute any alcohol or drug abuse patient.[facility] HospitalIn the event this information is protected by the Federal Confidentiality of Alcohol and Drug Abuse Patient Records regulations: The Federal rules restrict any use of the information to criminally investigate or prosecute any alcohol or drug abuse patient.[facility] HospitalIn the event this information is protected by the Federal Confidentiality of Alcohol and Drug Abuse Patient Records regulations: The Federal rules restrict any use of the information to criminally investigate or prosecute any alcohol or drug abuse patient.[facility] HospitalIn the event this information is protected by the Federal Confidentiality of Alcohol and Drug Abuse Patient Records regulations: The Federal rules restrict any use of the information to criminally investigate or prosecute any alcohol or drug abuse patient.[facility] HospitalIn the event this information is protected by the Federal Confidentiality of Alcohol and Drug Abuse Patient Records regulations: The Federal rules restrict any use of the information to criminally investigate or prosecute any alcohol or drug abuse patient.[facility] HospitalIn the event this information is protected by the Federal Confidentiality of Alcohol and Drug Abuse Patient Records regulations: The Federal rules restrict any use of the information to criminally investigate or prosecute any alcohol or drug abuse patient.[facility] HospitalIn the event this information is protected by the Federal Confidentiality of Alcohol and Drug Abuse Patient Records regulations: The Federal rules restrict any use of the information to criminally investigate or prosecute any alcohol or drug abuse patient.[facility] Reason for Visit (unrecogniz ed section and content) Reason Comments Radiology NM Specialty Diagnoses / Procedures Referred By Contac t Referred To Contact MOLECULAR & FUNCTIONAL IMAGING Diagnoses Shortness of breath Procedures NM CARDIAC PERF STRESS/PHARM MYOCARDIAL SPECT MULTIPLE STUDIES Jonah Graves MD [address] [id number] Molecular & Functional Imaging [address] [id number] Referral ID Status Reason Start Date Expiration Date V isits Requested Visits Authorized [id number] Closed Auto-Generate d Referral 10/26/2021 12/10/2021 1 1 Reason Comments Orders Reason Comments Called Back Reason Comments Pre-Op Update Cardiac clearance pr ior to surgery Reason Onset Date Comments Refill Request 11/23/2021 Reason Comments Results Reason Comments Patient Question Reason Comments Pre-Op Exam Specialty Diagnoses / Procedures Referred By Deisi t Referred To Contact Diagnoses Preoperative examination Procedures IN PERSON CONSULT TO PACC Alexia Anand APRN.CNP [address] [id number] Referral ID Status Reason Start Date Expiration Date Visits Requested Visits Authorized [id number] Ref Not Required PCP Requested Referral 10/20/2021 01/18/2022 1 1 Reason Comments Pre-Op Update Reason Onset Date Comments Refill Request 12/11/2021 Reason Comments Discussion Reason Onset Date Comments Transition Of Care 12/20/2021 (TCM), [facility], 5--2021, TCM INITIAL OUTREACH Reason Comments Hospital Follow Up Reason Comments Need verbal Order for OT/Nursing Reason Comments ED Follow-up [facility] [place] 12/12/21- abdominal hernia Reason Comments Patient Update Reason Comments Post Op Reason Comments Post Op Follow Up Reason Comments Blood Pressure nurse visit Reason Onset Date Comments Refill Request 02/27/2022 Reason Onset Date Comments Refill Request 03/15/2022 Reason Comments Medication Dosage Adjustment Stop Tac an d resume Rapa after hernia repair Reason Onset Date Comments Refill Request 04/16/2022 Reason Comments Refill Request Reason Comments Medicare Wellness Exam Reason Comments Forms [employer] PAP Reason Comments Follow Up Blood pressure Reason Comments Refill Request Rapamune - Pfizer PA P Reason Comments Follow Up Specialty Diagnoses / Procedures Referred By Contac t Referred To Contact Nephrology Diagnoses Hypertensive kidney disease with stage 4 chronic kidney disease (HCC) Procedures CONSULT TO NEPHROLOGY OFFICE/OUTPATIENT [facility] 60-74 MINUTES Jonah Graves MD [address] [place] [address] Referral ID Status Reason Start Date Expiration Date V isits Requested Visits Authorized [id number] Closed PCP Requested Referral 11/29/2021 11/29/2022 1 1 Reason Comments Discussion Refill Refill Request Pf[employer] PAP discontin ued - updated rapamune Rx Reason Comments 6 Month Exam Reason Onset Date Comments Optimal Transition Program 02/14/2023 Reason Comments New Patient Specialty Diagnoses / Procedures Referred By Contac t Referred To Contact Cardiology Diagnoses 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) Thoracic aorta atherosclerosis (HCC) Procedures CONSULT TO CARDIOLOGY OFFICE/OUTPATIENT [facility] 60-74 MINUTES Sanju Banerjee MD [address] [place] [address] Referral ID Status Reason Start Date Expiration Date V isits Requested Visits Authorized [id number] Closed PCP Requested Referral 06/06/2022 06/06/2023 1 1 Reason Comments Refill Request Rapamune PAP Reason Comments Central Retinal Vein Occlusion Evaluatio n with macular edema OD Branch Retinal Vein Occlusion Evaluation with retinal edema OS Reason Comments Return Call Request Reason Comments Appointment Reason Comments Edema Bilateral legs into testicles x 3 months Reason Comments Patient Update Results Reason Comments Results Low platelet count Reason Comments Question Concerned with rapam une and possible RHC Reason Comments Cardiology Follow Up Reason Comments Radiology NM Specialty Diagnoses / Procedures Referred By Contac t Referred To Contact Diagnoses Heart failure, unspecified Atherosclerotic 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 Reason Comments Central Retinal Vein Occlusion Follow Up OD Branch Retinal Vein Occlusion Follow Up OS Reason Comments Follow Up Leg edema- right leg Reason Comments Results Elevated LFTs - rech santiago next week. Reason Comments Abnormal Lab Reason Comments Home Health Orders Reason Onset Date Comments Transition Of Care 09/28/2023 Hospital DC, initial outreach Reason Comments question on medications Reason Comments Pathology review Reason Onset Date Comments Optimal Transition Program 10/03/2023 Reason Comments Medication Dosage Adjustment Tacrolimus Reason Comments Patient Update BLE edema R>L and SO B Reason Onset Date Comments Transition Of Care 10/17/2023 TCM hospital discharge Reason Onset Date Comments Transition Of Care 10/17/2023 TCM Pharmacy- Hospital discharge 10/16/23 Reason Comments Liver Disease Reason Comments Home Care Declined-out of serv ice area Reason Comments Hospital F/U Reason Comments Refill Request Tacrolimus dose redu ction 09/19 Reason Onset Date Comments Refill Request 10/31/2023 Reason Comments Release Of Medical Records Reason Onset Date Comments Transition Of Care 11/05/2023 TCM discharge follow-up Reason Comments Refill Request Decrease TAC 08/19 Reason Comments Home Health referral ([facility]) Reason Comments Rx Refills Protonix - routed to PCP Reason Comments Patient Update Confusion Reason Onset Date Comments Refill Request 11/25/2023 See notes Reason Comments Consult Benign Prostatic Hypertrophy New Patient Specialty Diagnoses / Procedures Referred By Deisi dowling Referred To Contact Urology Diagnoses Benign prostatic hyperplasia with urinary hesitancy Procedures CONSULT TO UROLOGY OFFICE/OUTPATIENT NEW HIGH MDM 60 MINUTES Sanju Banerjee MD [address] [place] [address] Referral ID Status Reason Start Date Expiration Date V isits Requested Visits Authorized [id number] Closed PCP Requested Referral 10/26/2023 10/25/2024 1 1 Reason Comments Hospital Bed Reason Comments Patient Update Hallucinating and no t following commands Reason Comments Results LFTs continue to imp rove, Low TAC - watch Reason Onset Date Comments Refill Request 02/04/2024 Reason Comments New Rx Request Reason Onset Date Comments requesting medication that is 02/11/2024 Reason Comments Rx Refills MMF 500 mg BID Reason Comments Medication Question Reason Onset Date Comments Refill Request 03/31/2024 Reason Comments Patient Update Medication review Reason Comments Rx Refills TAC 2AM/1PM Reason Comments Request for Records Reason Comments Outside Procedure Reason Onset Date Comments Refill Request 05/23/2024 Care Teams (unrecognized sec tion and content) Support Dba Relationship Specialty Start Date End Date Sanju Banerjee MD [facility] [place], [place] [id number] PCP - General Family Practice 05/18/14 Antoine Estrada RN [facility] [address] [place] [address] Registered Nurse Transplant Center 09/17/19 [place] [address] [place] [address] Primary Staff Physician Cardiology 10/26/21 Support Dba Relationship Specialty Start Date End Date Sanju Banerjee MD [address] [place] [id number] PCP - General Family Practice 05/18/14 Antoine Estrada RN [facility] [address] [place] [address] Registered Nurse Transplant Center 09/17/19 Jonah Graves MD [address] [place] [address] Primary Staff Physician Cardiology 10/26/21 Support Dba Relationship Specialty Start Date End Date Sanju Banerjee MD [address] [place] [address] [id number] PCP - General Family Practice 05/18/14 Antoine Estrada RN [facility] [address] [place] [address] Registered Nurse Transplant Center 09/17/19 Jonah Graves MD [address] [place] [address] Primary Staff Physician Cardiology 10/26/21 Support Dba Relationship Specialty Start Date End Date Sanju Banerjee MD [address] [place] [address] PCP - General Family Practice 05/18/14 Antoine Estrada RN [facility] [address] [place] [address] Registered Nurse Transplant Center 09/17/19 Jonah Graves MD [address] [place] [address] Primary Staff Physician Cardiology 10/26/21 Support Dba Relationship Specialty Start Date End Date Sanju Banerjee MD [address] [place] [address] PCP - General Family Practice 05/18/14 Antoine Estrada RN [facility] [address] [place] [address] Registered Nurse Transplant Center 09/17/19 Jonah Graves MD [address] [place] [address] Primary Staff Physician Cardiology 10/26/21 Support Dba Relationship Specialty Start Date End Date Sanju Banerjee MD [address] [place] [address] PCP - General Family Practice 05/18/14 Antoine Estrada RN [facility] [address] [place] [address] Registered Nurse Transplant Center 09/17/19 Jonah Graves MD [address] [place] [address] Primary Staff Physician Cardiology 10/26/21 Support Dba Relationship Specialty Start Date End Date Sanju Banerjee MD [address] [place] [address] PCP - General Family Practice 05/18/14 Antoine Estrada RN [facility] [address] [place] [address] Registered Nurse Transplant Center 09/17/19 Jonah Graves MD [address] [place] [address] Primary Staff Physician Cardiology 10/26/21 Support Dba Relationship Specialty Start Date End Date Sanju Banerjee MD [address] [place] [address] PCP - General Family Practice 05/18/14 Antoine Estrada RN [facility] [address] [place] [address] Registered Nurse Transplant Center 09/17/19 Jonah Graves MD [address] [place] [address] Primary Staff Physician Cardiology 10/26/21 Support Dba Relationship Specialty Start Date End Date Sanju Banerjee MD [address] [place] [address] PCP - General Family Practice 05/18/14 Antoine Estrada RN [facility] [address] [place] [address] Registered Nurse Transplant Center 09/17/19 Jonah Graves MD [address] [place] [address] Primary Staff Physician Cardiology 10/26/21 Support Dba Relationship Specialty Start Date End Date Sanju Banerjee MD [address] [place] [address] PCP - General Family Practice 05/18/14 Antoine Estrada RN [facility] [address] [place] [address] Registered Nurse Transplant Center 09/17/19 Jonah Graves MD [address] [place] [address] Primary Staff Physician Cardiology 10/26/21 Support Dba Relationship Specialty Start Date End Date Sanju Banerjee MD [address] [place] [address] PCP - General Family Practice 05/18/14 Antoine Estrada RN [facility] [address] [place] [address] Registered Nurse Transplant Center 09/17/19 Jonah Graves MD [address] [place] [address] Primary Staff Physician Cardiology 10/26/21 Support Dba Relationship Specialty Start Date End Date Sanju Banerjee MD [address] [place] [address] PCP - General Family Practice 05/18/14 Antoine Estrada RN [facility] [address] [place] [address] Registered Nurse Transplant Center 09/17/19 Jonah Graves MD [address] [place] [address] Primary Staff Physician Cardiology 10/26/21 Carmen Palafox, capacitor pack press operator Propulsion Generator Repairer 12/20/21 01/20/22 Support Dba Relationship Specialty Start Date End Date Sanju Banerjee MD [address] [place] [address] PCP - General Family Practice 05/18/14 Antoine Estrada RN [facility] [address] [place] [address] Registered Nurse Transplant Center 09/17/19 Jonah Graves MD [address] [place] [address] Primary Staff Physician Cardiology 10/26/21 Carmen Palafox, capacitor pack press operator Propulsion Generator Repairer 12/20/21 01/20/22 Support Dba Relationship Specialty Start Date End Date Sanju Banerjee MD [address] [place] [address] PCP - General Family Practice 05/18/14 Antoine Estrada RN [facility] [address] [place] [address] Registered Nurse Transplant Center 09/17/19 Jonah Graves MD [address] [place] [address] Primary Staff Physician Cardiology 10/26/21 Carmen Palafox, capacitor pack press operator Propulsion Generator Repairer 12/20/21 01/20/22 Support Dba Relationship Specialty Start Date End Date Sanju Banerjee MD [address] [place] [address] PCP - General Family Practice 05/18/14 Antoine Estrada RN [facility] [address] [place] [address] Registered Nurse Transplant Center 09/17/19 Jonah Graves MD [address] [place] [address] Primary Staff Physician Cardiology 10/26/21 Carmen Palafox RN Primary Care Propulsion Generator Repairer 12/20/21 01/20/22 Support Dba Relationship Specialty Start Date End Date Sanju Banerjee MD [address] [place] [address] PCP - General Family Practice 05/18/14 Antoine Estrada RN [facility] [address] [place] [address] Registered Nurse Transplant Center 09/17/19 Jonah Graves MD [address] [place] [address] Primary Staff Physician Cardiology 10/26/21 Carmen Palafox RN Primary Care Propulsion Generator Repairer 12/20/21 01/20/22 Support Dba Relationship Specialty Start Date End Date Sanju Banerjee MD [address] [place] [address] PCP - General Family Practice 05/18/14 Antoine Estrada RN [facility] [address] [place] [address] Registered Nurse Transplant Center 09/17/19 Support Dba Relationship Specialty Start Date End Date Sanju Banerjee MD [address] [place] [address] PCP - General Family Practice 05/18/14 Antoine Estrada RN [facility] [address] [place] [address] Registered Nurse Transplant Center 09/17/19 Jonah Graves MD [address] [place] [address] Primary Staff Physician Cardiology 10/26/21 Support Dba Relationship Specialty Start Date End Date Sanju Banerjee MD [address] [place] [address] PCP - General Family Practice 05/18/14 Antoine Estrada RN [facility] [address] [place] [address] Registered Nurse Transplant Center 09/17/19 Jonah Graves MD [address] [place] [address] Primary Staff Physician Cardiology 10/26/21 Support Dba Relationship Specialty Start Date End Date Sanju Banerjee MD [address] [place] [address] PCP - General Family Practice 05/18/14 Antoine Estrada RN [facility] [address] [place] [address] Registered Nurse Transplant Center 09/17/19 Jonah Graves MD [address] [place] [address] Primary Staff Physician Cardiology 10/26/21 Carmen Palafox, capacitor pack press operator Propulsion Generator Repairer 12/20/21 01/20/22 Support Dba Relationship Specialty Start Date End Date Sanju Banerjee MD [address] [place] [address] PCP - General Family Medicine 05/18/14 Antoine Estrada RN [facility] [address] [place] [address] Registered Nurse Transplant Center 09/17/19 Jonah Graves MD [address] [place] [address] Primary Staff Physician Cardiology 10/26/21 Support Dba Relationship Specialty Start Date End Date Sanju Banerjee MD [address] [place] [address] PCP - General Family Medicine 05/18/14 Antoine Estrada RN [facility] [address] [place] [address] Registered Nurse Transplant Center 09/17/19 Jonah Graves MD [address] [place] [address] Primary Staff Physician Cardiology 10/26/21 Support Dba Relationship Specialty Start Date End Date Sanju Banerjee MD [address] [place] [address] PCP - General Family Medicine 05/18/14 Antoine Estrada RN [facility] [address] [place] [address] Registered Nurse Transplant Center 09/17/19 Jonah Graves MD [address] [place] [address] Primary Staff Physician Cardiology 10/26/21 Support Dba Relationship Specialty Start Date End Date Sanju Banerjee MD [address] [place] [address] PCP - General Family Medicine 05/18/14 Antoine Estrada RN [facility] [address] [place] [address] Registered Nurse Transplant Center 09/17/19 Jonah Graves MD [address] [place] [address] Primary Staff Physician Cardiology 10/26/21 Support Dba Relationship Specialty Start Date End Date Sanju Banerjee MD [address] [place] [address] PCP - General Family Medicine 05/18/14 Antoine Estrada RN [facility] [address] [place] [address] Registered Nurse Transplant Center 09/17/19 Jonah Graves MD [address] [place] [address] Primary Staff Physician Cardiology 10/26/21 Support Dba Relationship Specialty Start Date End Date Sanju Banerjee MD [address] [place] [address] PCP - General Family Medicine 05/18/14 Antoine Estrada RN [facility] [address] [place] [address] Registered Nurse Transplant Center 09/17/19 Jonah Graves MD [address] [place] [address] Primary Staff Physician Cardiology 10/26/21 Support Dba Relationship Specialty Start Date End Date Sanju Banerjee MD [address] [place] [address] PCP - General Family Medicine 05/18/14 Antoine Estrada RN [facility] [address] [place] [address] Registered Nurse Transplant Center 09/17/19 Jonah Graves MD [address] [place] [address] Primary Staff Physician Cardiology 10/26/21 Support Dba Relationship Specialty Start Date End Date Sanju Banerjee MD [address] [place] [address] PCP - General Family Medicine 05/18/14 Antoine Estrada RN [facility] [address] [place] [address] Registered Nurse Transplant Center 09/17/19 Jonah Graves MD [address] [place] [address] Primary Staff Physician Cardiology 10/26/21 Support Dba Relationship Specialty Start Date End Date Sanju Banerjee MD [address] [place] [address] PCP - General Family Medicine 05/18/14 Antoine Estrada RN [facility] [address] [place] [address] Registered Nurse Transplant Center 09/17/19 Jonah Graves MD [address] [place] [address] Primary Staff Physician Cardiology 10/26/21 Support Dba Relationship Specialty Start Date End Date Sanju Banerjee MD [address] [place] [address] PCP - General Family Medicine 05/18/14 Antoine Estrada RN [facility] [address] [place] [address] Registered Nurse Transplant Center 09/17/19 Jonah Graves MD [address] [place] [address] Primary Staff Physician Cardiology 10/26/21 Support Dba Relationship Specialty Start Date End Date Sanju Banerjee MD [address] [place] [address] PCP - General Family Medicine 05/18/14 Antoine Estrada RN [facility] [address] [place] [address] Registered Nurse Transplant Center 09/17/19 Jonah Graves MD [address] [place] [address] Primary Staff Physician Cardiology 10/26/21 Support Dba Relationship Specialty Start Date End Date Sanju Banerjee MD [address] [place] [address] PCP - General Family Medicine 05/18/14 Antoine Estrada RN [facility] [address] [place] [address] Registered Nurse Transplant Center 09/17/19 Jonah Graves MD [address] [place] [address] Primary Staff Physician Cardiology 10/26/21 Support Dba Relationship Specialty Start Date End Date Sanju Banerjee MD [address] [place] [address] PCP - General Family Medicine 05/18/14 Antoine Estrada RN [facility] [address] [place] [address] Registered Nurse Transplant Center 09/17/19 Jonah Graves MD [address] [place] [address] Primary Staff Physician Cardiology 10/26/21 Support Dba Relationship Specialty Start Date End Date Sanju Banerjee MD [address] [place] [address] PCP - General Family Medicine 05/18/14 Antoine Estrada RN [facility] [address] [place] [address] Registered Nurse Transplant Center 09/17/19 Jonah Graves MD [address] [place] [address] Primary Staff Physician Cardiology 10/26/21 Tracy Brito, RN Specialty Escort Vehicle Driver Nephrology 02/20/23 Support Dba Relationship Specialty Start Date End Date Sanju Banerjee MD [address] [place] [address] PCP - General Family Medicine 05/18/14 Antoine Estrada RN [facility] [address] [place] [address] Registered Nurse Transplant Center 09/17/19 Jonah Graves MD [address] [place] [address] Primary Staff Physician Cardiology 10/26/21 Tracy Briot, RN Specialty Escort Vehicle Driver Nephrology 02/20/23 Support Dba Relationship Specialty Start Date End Date Sanju Banerjee MD [address] [place] [address] PCP - General Family Medicine 05/18/14 Antoine Estrada RN [facility] [address] [place] [address] Registered Nurse Transplant Center 09/17/19 Jonah Graves MD [address] [place] [address] Primary Staff Physician Cardiology 10/26/21 Tracy Brito, RN Specialty Escort Vehicle Driver Nephrology 02/20/23 Support Dba Relationship Specialty Start Date End Date Sanju Banerjee MD [address] [place] [address] PCP - General Family Medicine 05/18/14 Antoine Estrada RN [facility] [address] [place] [address] Registered Nurse Transplant Center 09/17/19 Jonah Graves MD [address] [place] [address] Primary Staff Physician Cardiology 10/26/21 Tracy Brito, RN Specialty Escort Vehicle Driver Nephrology 02/20/23 Support Dba Relationship Specialty Start Date End Date Sanju Banerjee MD [address] [place] [address] PCP - General Family Medicine 05/18/14 Antoine Estrada RN [facility] [address] [place] [address] Registered Nurse Transplant Center 09/17/19 Jonah Graves MD [address] [place] [address] Primary Staff Physician Cardiology 10/26/21 Tracy Brito, RN Specialty Escort Vehicle Driver Nephrology 02/20/23 Support Dba Relationship Specialty Start Date End Date Sanju Banerjee MD [address] [place] [address] PCP - General Family Medicine 05/18/14 Antoine Estrada RN [facility] [address] [place] [address] Registered Nurse Transplant Center 09/17/19 Jonah Graves MD [address] [place] [address] Primary Staff Physician Cardiology 10/26/21 Tracy Brito, RN Specialty Escort Vehicle Driver Nephrology 02/20/23 Support Dba Relationship Specialty Start Date End Date Sanju Banerjee MD [address] [place] [address] PCP - General Family Medicine 05/18/14 Antoine Estrada RN [facility] [address] [place] [address] Registered Nurse Transplant Center 09/17/19 Jonah Graves MD [address] [place] [address] Primary Staff Physician Cardiology 10/26/21 Tracy Brito, RN Specialty Escort Vehicle Driver Nephrology 02/20/23 Support Dba Relationship Specialty Start Date End Date Sanju Banerjee MD [address] [place] [address] PCP - General Family Medicine 05/18/14 Antoine Estrada, RN [facility] [address] [place] [address] Registered Nurse Transplant Center 09/17/19 Jonah Graves MD [address] [place] [address] Primary Staff Physician Cardiology 10/26/21 Tracy Brito, RN Specialty Escort Vehicle Driver Nephrology 02/20/23 Support Dba Relationship Specialty Start Date End Date Sanju Banerjee MD [address] [place], [place] 764171 PCP - General Family Medicine 05/18/14 Jonah Graves MD [address] [place] [address] Primary Staff Physician Cardiology 10/26/21 Tracy Brito, RN Specialty Escort Vehicle Driver Nephrology 02/20/23 Antoine Estrada, RN [facility] [address] [place] [address] Transplant Center 05/06/23 Support Dba Relationship Specialty Start Date End Date Sanju Banerjee MD [address] [place] [address] PCP - General Family Medicine 05/18/14 Jonah Graves MD [address] [place] [address] Primary Staff Physician Cardiology 10/26/21 Tracy Brito, RN Specialty Escort Vehicle Driver Nephrology 02/20/23 Antoine Estrada, [place] [address] [place] [address] Transplant Center 05/06/23 Support Dba Relationship Specialty Start Date End Date Sanju Banerjee MD [address] [place], [place] 454371 PCP - General Family Medicine 05/18/14 Jonah Graves MD [address] [place] [id number] Primary Staff Physician Cardiology 10/26/21 Tracy Brito, RN Specialty Escort Vehicle Driver Nephrology 02/20/23 Antoine Estrada, RN [facility] [address] [place] [address] Transplant Center 05/06/23 Support Dba Relationship Specialty Start Date End Date Sanju Banerjee MD [address] [place] [address] PCP - General Family Medicine 05/18/14 Tracy Brito RN Specialty Escort Vehicle Driver Nephrology 02/20/23 BotetourtAntoine pantoja, [place] [facility] [address] [place] [address] Transplant Center 05/06/23 Jonah Dawson MD [address] [place] [address] Primary Staff Physician Cardiology 05/13/23 Support Dba Relationship Specialty Start Date End Date Sanju Banerjee MD [address] [place], [place] 069461 PCP - General Family Medicine 05/18/14 Tracy Brito, RN Specialty Escort Vehicle Driver Nephrology 02/20/23 Antoine Estrada RN [facility] [address] [place] [address] Transplant Center 05/06/23 Jonah Dawson MD [address] [place] [address] Primary Staff Physician Cardiology 05/13/23 Support Dba Relationship Specialty Start Date End Date Sanju Banerjee MD [address] [place] [address] PCP - General Family Medicine 05/18/14 Tracy Brito, RN Specialty Escort Vehicle Driver Nephrology 02/20/23 Antoine Estrada RN [facility] [address] [place] [address] Transplant Center 05/06/23 Jonah Dawson MD [address] [place] [id number] Primary Staff Physician Cardiology 05/13/23 Support Dba Relationship Specialty Start Date End Date Sanju Banerjee MD [address] [place] [address] PCP - General Family Medicine 05/18/14 Tracy Brito RN Specialty Escort Vehicle Driver Nephrology 02/20/23 Antoine Estrada RN [facility] [address] [place] [address] Transplant Center 05/06/23 Jonah Dawson MD [address] [place] [address] Primary Staff Physician Cardiology 05/13/23 Support Dba Relationship Specialty Start Date End Date Sanju Banerjee MD [address] [place] [address] PCP - General Family Medicine 05/18/14 Tracy Brito, RN Specialty Escort Vehicle Driver Nephrology 02/20/23 Antoine Estrada RN [facility] [address] [place] [address] Transplant Center 05/06/23 Jonah Dawson MD [address] [place] [address] Primary Staff Physician Cardiology 05/13/23 Support Dba Relationship Specialty Start Date End Date Sanju Banerjee MD [address] [place] [address] PCP - General Family Medicine 05/18/14 Tracy Brito RN Specialty Escort Vehicle Driver Nephrology 02/20/23 Antoine Estrada RN [facility] [address] [place] [address] Transplant Center 05/06/23 Jonah Dawson MD [address] [place] [phone] Primary Staff Physician Cardiology 05/13/23 Support Dba Relationship Specialty Start Date End Date Sanju Banerjee MD [address] [place] [address] PCP - General Family Medicine 05/18/14 Tracy Brito RN Specialty Escort Vehicle Driver Nephrology 02/20/23 Antoine Estrada RN [facility] [address] [place] [address] Transplant Center 05/06/23 Jonah Dawson MD [address] [place] [address] Primary Staff Physician Cardiology 05/13/23 Support Dba Relationship Specialty Start Date End Date Sanju Banerjee MD [address] [place] [address] PCP - General Family Medicine 05/18/14 Daryl, Tracy A, RN Specialty Escort Vehicle Driver Nephrology 02/20/23 Antoine Estrada, RN [facility] [address] [place] [address] Transplant Center 05/06/23 Jonah Dawson MD [address] [place] [address] Primary Staff Physician Cardiology 05/13/23 Support Dba Relationship Specialty Start Date End Date Sanju Banerjee MD [address] [place] [address] PCP - General Family Medicine 05/18/14 Tracy Brito, PASCALE Specialty Escort Vehicle Driver Nephrology 02/20/23 Antoine Estrada, RN [facility] [address] [place] [address] Transplant Center 05/06/23 Jonah Dawson MD [address] [place] [phone] Primary Staff Physician Cardiology 05/13/23 Support Dba Relationship Specialty Start Date End Date Sanju Banerjee MD [facility] [place] [address] PCP - General Family Medicine 05/18/14 Tracy Brito RN Specialty Escort Vehicle Driver Nephrology 02/20/23 Antoine Estrada, [place] [facility] [address] [place] [address] Transplant Center 05/06/23 Jonah Dawson MD [address] [place] [address] Primary Staff Physician Cardiology 05/13/23 Support Dba Relationship Specialty Start Date End Date Sanju Banerjee MD [address] [place] [address] PCP - General Family Medicine 05/18/14 Tracy Brito RN Specialty Escort Vehicle Driver Nephrology 02/20/23 Antoine Estrada, [place] [facility] [address] [place] [address] Transplant Center 05/06/23 Jonah Dawson MD [address] [place] [address] Primary Staff Physician Cardiology 05/13/23 Support Dba Relationship Specialty Start Date End Date Sanju Banerjee MD [address] [place] [address] PCP - General Family Medicine 05/18/14 Tracy Brito RN Specialty Escort Vehicle Driver Nephrology 02/20/23 Antoine Estrada RN [facility] [address] [place] [address] Transplant Center 05/06/23 Jonah Dawson MD [address] [place] [address] Primary Staff Physician Cardiology 05/13/23 Support Dba Relationship Specialty Start Date End Date Sanju Banerjee MD [address] [place] [address] PCP - General Family Medicine 05/18/14 Tracy Brito RN Specialty Escort Vehicle Driver Nephrology 02/20/23 Antoine Estrada, RN [facility] [address] [place] [address] Transplant Center 05/06/23 Jonah Dawson MD [address] [place] [address] Primary Staff Physician Cardiology 05/13/23 Support Dba Relationship Specialty Start Date End Date Sanju Banerjee MD [address] [place] [address] PCP - General Family Medicine 05/18/14 Tracy Brito RN Specialty Escort Vehicle Driver Nephrology 02/20/23 Antoine Estrada, [place] [facility] [address] [place] [address] Transplant Center 05/06/23 Jonah Dawson MD [address] [place] [address] Primary Staff Physician Cardiology 05/13/23 Support Dba Relationship Specialty Start Date End Date Sanju Banerjee MD [facility] [place] [address] PCP - General Family Medicine 05/18/14 Tracy Brito RN Specialty Escort Vehicle Driver Nephrology 02/20/23 Antoine Estrada RN [facility] [address] [place] [address] Transplant Center 05/06/23 Jonah Dawson MD [address] [place] [address] Primary Staff Physician Cardiology 05/13/23 Support Dba Relationship Specialty Start Date End Date Sanju Banerjee MD [address] [place] [address] PCP - General Family Medicine 05/18/14 Tracy Brito RN Specialty Escort Vehicle Driver Nephrology 02/20/23 Antoine Estrada, [place] [facility] [address] [place] [address] Transplant Center 05/06/23 Jonah Dawson MD [address] [place] [address] Primary Staff Physician Cardiology 05/13/23 Lakesha Gutiérrez, capacitor pack press operator Propulsion Generator Repairer Internal Medicine 08/07/23 08/27/23 Support Dba Relationship Specialty Start Date End Date Sanju Banerjee MD [address] [place] [address] PCP - General Family Medicine 05/18/14 Tracy Brito, RN Specialty Escort Vehicle Driver Nephrology 02/20/23 Antoine Estrada RN [facility] [address] [place] [address] Transplant Center 05/06/23 Jonah Dawson MD [address] [place] [address] Primary Staff Physician Cardiology 05/13/23 Support Dba Relationship Specialty Start Date End Date Sanju Banerjee MD [address] [place] [address] PCP - General Family Medicine 05/18/14 Tracy Brito RN Specialty Escort Vehicle Driver Nephrology 02/20/23 Antoine Estrada RN [facility] [address] [place] [address] Transplant Center 05/06/23 Jonah Dawson MD [address] [place] [address] Primary Staff Physician Cardiology 05/13/23 [place] [address] [place] [address] Primary Care Propulsion Generator Repairer 09/28/23 Support Dba Relationship Specialty Start Date End Date Sanju Banerjee MD [facility] [place] [address] PCP - General Family Medicine 05/18/14 Tracy Brito RN Specialty Escort Vehicle Driver Nephrology 02/20/23 Antoine Estrada RN [facility] [address] [place] [address] Transplant Center 05/06/23 Jonah Dawson MD [address] [place] [address] Primary Staff Physician Cardiology 05/13/23 Honey Evans, [place] [address] [place] [address] Primary Care Propulsion Generator Repairer 09/28/23 Support Dba Relationship Specialty Start Date End Date Sanju Banerjee MD [address] [place] [address] PCP - General Family Medicine 05/18/14 Tracy Brito, RN Specialty Escort Vehicle Driver Nephrology 02/20/23 Antoine Estrada RN [facility] [address] [place] [address] Transplant Center 05/06/23 Jonah Dawson MD [address] [place] [address] Primary Staff Physician Cardiology 05/13/23 [place] [address] [place] [address] Primary Care Propulsion Generator Repairer 09/28/23 Support Dba Relationship Specialty Start Date End Date Sanju Banerjee MD [address] [place] [address] PCP - General Family Medicine 05/18/14 Tracy Brito RN Specialty Escort Vehicle Driver Nephrology 02/20/23 Antoine Estrada RN [facility] [address] [place] [address] Transplant Center 05/06/23 Jonah Dawson MD [address] [place] [address] Primary Staff Physician Cardiology 05/13/23 [place] [address] [place] [address] Primary Care Propulsion Generator Repairer 09/28/23 Support Dba Relationship Specialty Start Date End Date Sanju Banerjee MD [address] [place] [address] PCP - General Family Medicine 05/18/14 Antoine Estrada RN [facility] [address] [place] [address] Transplant Center 05/06/23 Jonah Dawson MD [address] [place] [address] Primary Staff Physician Cardiology 05/13/23 [facility] [address] [place] [address] Transitional Care Pharmacist Pharmacy 10/17/23 11/14/23 Josep Valencia RN Primary Care Propulsion Generator Repairer 10/17/23 Support Dba Relationship Specialty Start Date End Date Sanju Banerjee MD [address] [place] [address] PCP - General Family Medicine 05/18/14 Antoine Estrada RN [facility] [address] [place] [address] Transplant Center 05/06/23 Jonah Dawson MD [address] [place] [address] Primary Staff Physician Cardiology 05/13/23 [facility] [address] [place] [address] Transitional Care Pharmacist Pharmacy 10/17/23 11/14/23 Josep Valencia RN Primary Care Propulsion Generator Repairer 10/17/23 Support Dba Relationship Specialty Start Date End Date Sanju Banerjee MD [address] [place] [address] PCP - General Family Medicine 05/18/14 Antoine Estrada RN [facility] [address] [place] [address] Transplant Center 05/06/23 Jonah Dawson MD [address] [place] [address] Primary Staff Physician Cardiology 05/13/23 [facility] [address] [place] [address] Transitional Care Pharmacist Pharmacy 10/17/23 11/14/23 Josep Valencia RN Primary Care Propulsion Generator Repairer 10/17/23 Support Dba Relationship Specialty Start Date End Date Sanju Banerjee MD [address] [place] [address] PCP - General Family Medicine 05/18/14 Antoine Estrada RN [facility] [address] [place] [address] Transplant Center 05/06/23 [place] [address] [place] [address] Primary Staff Physician Cardiology 05/13/23 [facility] [address] [place] [address] Transitional Care Pharmacist Pharmacy 10/17/23 11/14/23 Josep Valencia RN Primary Care Propulsion Generator Repairer 10/17/23 Support Dba Relationship Specialty Start Date End Date Sanju Banerjee MD [address] [place] [address] PCP - General Family Medicine 05/18/14 Antoine Estrada RN [facility] [address] [place], [place] [phone] Transplant Center 05/06/23 Jonah Dawson MD [address] [place] [address] Primary Staff Physician Cardiology 05/13/23 [facility] [address] [place] [address] Transitional Care Pharmacist Pharmacy 10/17/23 11/14/23 Josep Valencia, capacitor pack press operator Propulsion Generator Repairer 10/17/23 Support Dba Relationship Specialty Start Date End Date Sanju Banerjee MD [address] [place], [place] [id number] PCP - General Family Medicine 05/18/14 Antoine Estrada RN [place] [id number] Transplant Center 05/06/23 Jonah Dawson MD [address] [place] [address] Primary Staff Physician Cardiology 05/13/23 [facility] [address] [place] [address] Transitional Care Pharmacist Pharmacy 10/17/23 11/14/23 Josep Valencia capacitor pack press operator Propulsion Generator Repairer 10/17/23 Support Dba Relationship Specialty Start Date End Date Sanju Banerjee MD [address] [place] [address] PCP - General Family Medicine 05/18/14 Antoine Estrada RN [place] [id number] Transplant Center 05/06/23 Jonah Dawson MD [address] [place] [address] Primary Staff Physician Cardiology 05/13/23 [facility] [address] [place] [address] Transitional Care Pharmacist Pharmacy 10/17/23 11/14/23 Josep Valencia, capacitor pack press operator Propulsion Generator Repairer 10/17/23 Support Dba Relationship Specialty Start Date End Date Sanju Banerjee MD [facility] [place], [place] [address] PCP - General Family Medicine 05/18/14 Antoine Estrada RN [facility] [address] [place] [address] Transplant Center 05/06/23 Jonah Dawson MD [address] [place] [phone] Primary Staff Physician Cardiology 05/13/23 [facility] [address] [place] [address] Transitional Care Pharmacist Pharmacy 10/17/23 11/14/23 Josep Valencia capacitor pack press operator Propulsion Generator Repairer 10/17/23 Support Dba Relationship Specialty Start Date End Date Sanju Banerjee MD [address] [place] [address] PCP - General Family Medicine 05/18/14 Antoine Estrada RN [facility] [address] [place] [address] Transplant Center 05/06/23 Jonah Dawson MD [address] [place] [address] Primary Staff Physician Cardiology 05/13/23 Anabel García, [facility] [address] [place] [address] Transitional Care Pharmacist Pharmacy 10/17/23 11/14/23 Josep Valencia, capacitor pack press operator Propulsion Generator Repairer 10/17/23 Support Dba Relationship Specialty Start Date End Date Sanju Banerjee MD [address] [place] [address] PCP - General Family Medicine 05/18/14 Antoine Estrada RN [address] [address] Transplant Center 05/06/23 Jonah Dawson MD [address] [place] [address] Primary Staff Physician Cardiology 05/13/23 Anabel García, [facility] [address] [place] [address] Transitional Care Pharmacist Pharmacy 10/17/23 11/14/23 Josep Valencia, capacitor pack press operator Propulsion Generator Repairer 10/17/23 Support Dba Relationship Specialty Start Date End Date Sanju Banerjee MD [address] [place] [address] PCP - General Family Medicine 05/18/14 Antoine Estrada RN [facility] [address] [place] [address] Transplant Center 05/06/23 Jonah Dawson MD [address] [place] [address] Primary Staff Physician Cardiology 05/13/23 Support Dba Relationship Specialty Start Date End Date Sanju Banerjee MD [address] [place] [address] PCP - General Family Medicine 05/18/14 Antoine Estrada RN [facility] [address] [place] [address] Transplant Center 05/06/23 Jonah Dawson MD [address] [place] [address] Primary Staff Physician Cardiology 05/13/23 Support Dba Relationship Specialty Start Date End Date Sanju Banerjee MD [address] [place] [address] PCP - General Family Medicine 05/18/14 Antoine Estrada RN [facility] [address] [place] [address] Transplant Center 05/06/23 Jonah Dawson MD [address] [place] [address] Primary Staff Physician Cardiology 05/13/23 Support Dba Relationship Specialty Start Date End Date Sanju Banerjee MD [address] [place] [address] PCP - General Family Medicine 05/18/14 Antoine Estrada RN [facility] [address] [place] [address] Transplant Center 05/06/23 Jonah Dawson MD [address] [place] [address] Primary Staff Physician Cardiology 05/13/23 Support Dba Relationship Specialty Start Date End Date Sanju Banerjee MD [address] [place] [address] PCP - General Family Medicine 05/18/14 Antoine Estrada RN [facility] [address] [place] [address] Transplant Center 05/06/23 Jonah Dawson MD [address] [place] [address] Primary Staff Physician Cardiology 05/13/23 Support Dba Relationship Specialty Start Date End Date Sanju Banerjee MD [address] [place] [address] PCP - General Family Medicine 05/18/14 Antoine Estrada RN [facility] [address] [place] [address] Transplant Center 05/06/23 Jonah Dawson MD [address] [place] [address] Primary Staff Physician Cardiology 05/13/23 Support Dba Relationship Specialty Start Date End Date Sanju Banerjee MD [address] [place] [address] PCP - General Family Medicine 05/18/14 Tracy Brito RN Specialty Escort Vehicle Driver Nephrology 02/20/23 10/16/23 Antoine Estrada RN [facility] [address] [place] [address] Transplant Center 05/06/23 Jonah Dawson MD [address] [place] [address] Primary Staff Physician Cardiology 05/13/23 Support Dba Relationship Specialty Start Date End Date Sanju Banerjee MD [address] [place] [address] PCP - General Family Medicine 05/18/14 Antoine Estrada RN [facility] [address] [place] [address] Transplant Center 05/06/23 Jonah Dawson MD [address] [place] [address] Primary Staff Physician Cardiology 05/13/23 Support Dba Relationship Specialty Start Date End Date Sanju Banerjee MD [address] [place] [address] PCP - General Family Medicine 05/18/14 Antoine Estrada RN [facility] [address] [place] [address] Transplant Center 05/06/23 Jonah Dawson MD [address] [place] [address] Primary Staff Physician Cardiology 05/13/23 Support Dba Relationship Specialty [place] [address] [place] [address] PCP - General Family Medicine 05/18/14 Tracy Brito, PASCALE Specialty Escort Vehicle Driver Nephrology 02/20/23 10/16/23 Antoine Estrada RN [facility] [address] [place] [address] Transplant Center 05/06/23 Jonah Dawson MD [address] [place] [address] Primary Staff Physician Cardiology 05/13/23 Honey Evans, [place] [address] [place] [address] Primary Care Propulsion Generator Repairer 09/28/23 10/10/23 Anabel García, [facility] [address] [place] [address] Transitional Care Pharmacist Pharmacy 10/17/23 11/14/23 Josep Valencia, capacitor pack press operator Propulsion Generator Repairer 10/17/23 11/15/23 Support Dba Relationship Specialty Start Date End Date Sanju Banerjee MD [address] [place] [address] PCP - General Family Medicine 05/18/14 Antoine Estrada RN [facility] [address] [place] [address] Transplant Center 05/06/23 Jonah Dawson MD [address] [place] [address] Primary Staff Physician Cardiology 05/13/23 Support Dba Relationship Specialty Start Date End Date Sanju Banerjee MD [address] [place] [address] PCP - General Family Medicine 05/18/14 Antoine Estrada RN [facility] [address] [place] [address] Transplant Center 05/06/23 Jonah Dawson MD [address] [place] [address] Primary Staff Physician Cardiology 05/13/23 Support Dba Relationship Specialty Start Date End Date Sanju Banerjee MD [address] [place] [address] PCP - General Family Medicine 05/18/14 Antoine Estrada RN [facility] [address] [place] [address] Transplant Center 05/06/23 Jonah Dawson MD [address] [place] [address] Primary Staff Physician Cardiology 05/13/23 Support Dba Relationship Specialty Start Date End Date Sanju Banerjee MD [address] [place] [address] PCP - General Family Medicine 05/18/14 Antoine Estrada RN [facility] [address] [place] [address] Transplant Center 05/06/23 Jonah Dawson MD [address] [place] [address] Primary Staff Physician Cardiology 05/13/23 Support Dba Relationship Specialty Start Date End Date Sanju Banerjee MD [address] [place] [address] PCP - General Family Medicine 05/18/14 Antoine Estrada RN [facility] [address] [place] [address] Transplant Center 05/06/23 Jonah Dawson MD [address] [place] [address] Primary Staff Physician Cardiology 05/13/23 Support Dba Relationship Specialty Start Date End Date Sanju Banerjee MD [address] [place] [address] PCP - General Family Medicine 05/18/14 Antoine Estrada RN [facility] [address] [place] [address] Transplant Center 05/06/23 Jonah Dawson MD [address] [place] [address] Primary Staff Physician Cardiology 05/13/23 Support Dba Relationship Specialty Start Date End Date Sanju Banerjee MD [address] [place] [address] PCP - General Family Medicine 05/18/14 Antoine Estrada RN [facility] [address] [place] [address] Transplant Center 05/06/23 Jonah Dawson MD [address] [place] [address] Primary Staff Physician Cardiology 05/13/23 Support Dba Relationship Specialty Start Date End Date Sanju Banerjee MD [address] [place] [address] PCP - General Family Medicine 05/18/14 Antoine Estrada RN [facility] [address] [place] [address] Transplant Center 05/06/23 Jonah Dawson MD [address] [place] [address] Primary Staff Physician Cardiology 05/13/23 Support Dba Relationship Specialty Start Date End Date Sanju Banerjee MD [address] [place] [address] PCP - General Family Medicine 05/18/14 Antoine Estrada RN [facility] [address] [place] [address] Transplant Center 05/06/23 Jonah Dawson MD [address] [place] [address] Primary Staff Physician Cardiology 05/13/23 Support Dba Relationship Specialty Start Date End Date Sanju Banerjee MD [address] [place] [address] PCP - General Family Medicine 05/18/14 Antoine Estrada RN [facility] [address] [place] [address] Transplant Center 05/06/23 Jonah Dwason MD [address] [place] [address] Primary Staff Physician Cardiology 05/13/23 Support Dba Relationship Specialty Start Date End Date Sanju Banerjee MD [address] [place] [address] PCP - General Family Medicine 05/18/14 Antoine Estrada RN [facility] [address] [place] [address] Transplant Center 05/06/23 Jonah Dawson MD [address] [place] [address] Primary Staff Physician Cardiology 05/13/23 Support Dba Relationship Specialty Start Date End Date Sanju Banerjee MD [address] [place] [id number] PCP - General Family Medicine 05/18/14 Support Dba Relationship Specialty [place] [address] [place] [id number] PCP - General Family Medicine 05/18/14 Support Dba Relationship Specialty Start Date End Date Sanju Banerjee MD [address] [place] [id number] PCP - General Family Medicine 05/18/14 Antoine Estrada RN [facility] [address] [place] [address] Transplant Center 05/06/23 Jonah Dawson MD [address] [place] [address] Primary Staff Physician Cardiology 05/13/23 FOR RECORDS PERTAINING TO PATIENTS WHO ARE OR HAVE BEEN ENROLLED IN A CHEMICAL DEPENDENCY/SUBSTANCEABUSE PROGRAM, SOME INFORMATION MAY BE OMITTED. This clinical summary was aggregated from multiple sources. Caution should be exercised in using it in the provision of clinical care. This summary normalizes information from multiple sources, and as a consequence, information in this document may materially change the coding, format and clinical context of patient data. In addition, data may be omitted in some cases. CLINICAL DECISIONS SHOULD BE BASED ON THE PRIMARY CLINICAL RECORDS. [facility]. provides no warranty or guarantee of the accuracy or completeness of information in this document.
[2024-06-01 18:08] LABS: Bedside Glucose 130 mg/dL (74-106)
[2024-06-01] MEDS: Magnesium Sulfate 2 GM in Dextrose 5%-Water (100mL Bag) 100 ML IV (20:44)
[2024-06-01] MEDS: hydrALAZINE 50 MG Tablet PO (22:16)
[2024-06-01] MEDS: Carvedilol 12.5 MG Tablet PO (22:17)
[2024-06-01] MEDS: Mycophenolate Mofetil 250 MG Capsule 500 MG PO (22:17)
[2024-06-01] MEDS: Tacrolimus Anhydrous 1 MG Capsule 2 MG PO (22:18)
[2024-06-01] MEDS: Midodrine HCl 5 MG Tablet PO (22:18)
[2024-06-01] MEDS: Atorvastatin Calcium 40 MG Tablet PO (22:18)
[2024-06-01] MEDS: Tamsulosin HCl 0.4 MG Capsule PO (22:18)
[2024-06-01] MEDS: Sodium Bicarbonate 650 MG Tablet PO (22:18)
[2024-06-01] MEDS: MELATONIN 10 MG TABLET PO (22:18)
[2024-06-01] MEDS: Heparin Injection (Vial) 5,000 UNIT/ML VIAL 5000 UNIT SC (22:36)
[2024-06-01] MEDS: Insulin Lispro 100 UNIT/ML INSULN.PEN SC (22:37)
[2024-06-01] MEDS: Menthol/Lanolin/Calamine/Znox 113 GM Tube 1 APPLIC TOPICAL (22:37)
[2024-06-02] VITALS (16 sets, daily range): BP systolic 108–181; BP diastolic 58–80; PULSE 65–73; RESP 14–18; TEMP 36.3–36.7; O2SAT 95–99; BMI 25.8; BMI 25.4
[2024-06-02 01:28] LABS: Bedside Glucose 153 mg/dL (74-106)
[2024-06-02] MEDS: Sodium Bicarbonate 650 MG Tablet PO ×3 (05:50→22:04)
[2024-06-02 06:53] LABS: Absolute Lymphocyte Count 0.77 X10^3/uL (0.83-4.51); Absolute Neutrophil Count 2.6 X10^3/uL (2.0-7.7); Basophil# 0.02 X10^3/uL; Basophil% 0.5 % (0-1); Eosinophil# 0.07 X10^3/uL; Eosinophils% 1.8 % (0-5); Hematocrit 25.4 % (40-54); Hemoglobin 8.1 g/dL (13.0-16.5); Lymphocyte # 0.77 X10^3/ul (0.83-4.51); Lymphocyte % 19.6 % (19-41); Mean Corp Hgb Conc 31.9 g/dL (32-36); Mean Corpuscular Hgb 30.3 pg (27.0-32.0); Mean Corpuscular Volume 95.1 fL (80-94); Mean Platelet Vol. 9.6 fl (6.2-12.0); Monocyte% 10.2 % (0-10); NRBC Flagged by Analyzer 0 % (0-5); Neutrophil # 2.63 X10^3/uL (2.7-7.7); Neutrophil % 67.1 % (47-70); POSITIVE COUNT YES; Platelet Count 88 K/mm3 (150-450); RBC Distribution Width CV 15.9 % (11.6-14.6); RBC Distribution Width SD 56.1 fl (35.1-43.9); Red Blood Count 2.67 M/mm3 (4.6-6.2); White Blood Count 3.9 K/mm3 (4.4-11.0)
[2024-06-02 07:16] LABS: Anion Gap 9 (5-15); BUN 29 mg/dL (7-18); BUN/Creat Ratio 5.5 RATIO (10-20); Calcium,Total 11.6 mg/dL (8.5-10.1); Chloride 105 mmol/L (98-107); Creatinine, Serum 5.26 mg/dL (0.70-1.30); EST Glomerular Filtration Rate 11 mL/min (>60); Est Glom Filt Rate - Afr Amer 14 mL/min (>60); Estimated Creatinine Clearance 10.28 ml/min; Glucose 116 mg/dL (74-106); Magnesium 2.1 mg/dL (1.6-2.6); Potassium 3.6 mmol/L (3.5-5.1); Sodium Level 140 mmol/L (136-145)
--- NOTE | 2024-06-02 08:05 | NURSING ---
punch out crew member at bedside, pt denies needs from this RN at this time.
[2024-06-02] MEDS: 0.9% Normal Saline 1,000 ML IV.SOLN. 1000 ML OPERA.SITE (08:09)
[2024-06-02] MEDS: PureFlow B 3K Dialysis Soln 1 BAG 6 BAG PF (08:09)
[2024-06-02] MEDS: 0.9% Saline Lock 10 ML Syringe IV ×3 (08:10→22:00)
--- NOTE | 2024-06-02 09:59 | PCM.CONS.R ---
Assessment & Plan Assessment/Plan (1) ESRD (end stage renal disease) on dialysis: (2) General weakness: (3) Anemia of chronic disease: PLAN: Plan This is a 79-year-old male with past medical history significant for ESRD who dialyzes at [facility] Saturday, last dialyzed last Saturday who was brought to the emergency room for evaluation of weakness and difficulty standing. Patient undergoing hemodialysis today with fluid removal as patient and bp tolerates. Will plan for dialysis again tomorrow as outpatient dialysis schedule is Saturday. Patient will receive SERVANDO with dialysis. Brain CT did not show any acute process. Abdomen/pelvis CT showed small bilateral pleural effusions, moderate size pericardial effusion. Chest x-ray small right pleural effusion. X-ray of ribs demonstrated no fractures. UA positive for leukocyte esterase, urine culture pending. Further orders forthcoming as hospitalization evolves, thank you for allowing us to participate in the care of Mr. Sanon. HPI Consult Data Date of Consult: 06/02/24 HPI Narrative HPI Narrative: SELVIN SANON, is a 79 M with past medical history significant for ESRD currently dialyzing at [facility] on a Saturday schedule, last dialyzed last Saturday who was brought to the emergency room yesterday for evaluation of weakness, difficulty standing. Patient is alert to name but having difficult time recalling recent events. Information gathered from the chart. Patient has past medical history significant for hypertension, hyperlipidemia, alcoholic cirrhosis of liver status post liver transplant followed by [facility]. Patient is currently dialyzing, tolerating treatment well. [facility] Medical History Loss of hearing Wears glasses Wears dentures Anxiety Depression Alcohol use Insulin dependent diabetes mellitus Uses wheelchair Walker as ambulation aid Back pain Dietary restriction History of ulceration Gastric reflux Shortness of breath on exertion History of renal dialysis History of edema History of echocardiogram Cardiology follow-up encounter Arthritis DVT (deep venous thrombosis) TIA (transient ischemic attack) Coronary artery disease Congestive heart failure Cirrhosis Hemochromatosis Non-smoker Hyperlipidemia Hypertension Stroke/cerebrovascular accident Home Medications ?Medication ?Instructions ?Recorded ?Last Taken ?Type aspirin 81 mg tablet 81 mg PO DAILY 08/22/21 06/01/24 History atorvastatin 40 mg tablet 40 mg PO QHS 08/22/21 05/31/24 History sodium bicarbonate 650 mg tablet 650 mg PO TID 08/22/21 06/01/24 History pyridoxine (vitamin B6) 100 mg 100 mg PO DAILY 04/26/23 06/01/24 History tablet (Vitamin B-6) insulin glargine 100 unit/mL (3 4 unit subcut QHS 03/03/24 05/04/24 History mL) subcutaneous pen (Lantus Solostar U-100 Insulin) insulin lispro 100 unit/mL 1 sliding scale dose subcut TID 03/03/24 Unknown History subcutaneous pen (Humalog KwikPen (U-100) Insulin) midodrine 5 mg tablet 5 mg PO BID 03/03/24 06/01/24 History tamsulosin 0.4 mg capsule 0.4 mg PO QHS 03/03/24 05/31/24 History torsemide 20 mg tablet 40 mg PO DAILY 03/03/24 06/01/24 History carvedilol 12.5 mg tablet 12.5 mg PO BID 05/01/24 05/31/24 History clopidogrel 75 mg tablet 75 mg PO DAILY 05/01/24 06/01/24 History diltiazem HCl 240 mg 240 mg PO DAILY 05/01/24 06/01/24 History capsule,extended release 24 hr mycophenolate mofetil 250 mg 500 mg PO BID 05/01/24 06/01/24 History capsule pantoprazole 40 mg tablet,delayed 40 mg PO DAILY 05/01/24 06/01/24 History release sertraline 25 mg tablet 25 mg PO DAILY 05/01/24 06/01/24 History tacrolimus 1 mg capsule, 2 mg PO BID 05/01/24 06/01/24 History immediate-release hydralazine 50 mg tablet 50 mg PO Q12.TCU 06/01/24 06/01/24 History vitamin B complex-vitamin C-folic 1 tab PO DAILY 06/01/24 06/01/24 History acid 0.8 mg tablet (Jie-Anne-Marie) Allergy/AdvReac Type Severity Reaction Status Date / Time No Known Allergies Allergy Verified 06/01/24 12:18 Surgical History History of cardiac catheterization Hx of colonoscopy History of coronary artery stent placement History of embolic filter insertion History of herniorrhaphy History of appendectomy History of cholecystectomy History of liver transplant Social History household members: spouse Smoking Status: Never smoker alcohol intake: never substance use type: does not use ROS ROS Narrative As in HPI Physical Exam Narrative Alert and oriented, no apparent distress S1, S2, RRR Lung sounds with crackles Abdomen soft, nontender No edema Tunneled hemodialysis catheter dressing clean, dry and intact Right mid arm AV fistula with good thrill and bruit. Sutures intact Lab / Micro Data 06/02/24 06:07 06/02/24 06:07 Labs: Laboratory Results - last 24 hr 06/01/24 12:08: WBC 3.9 L, RBC 2.92 L, Hgb 8.8 L, Hct 27.8 L, MCV 95.2 H, MCH 30.1, MCHC 31.7 L, RDW Std Deviation 56.4 H, RDW Coeff of Ursula 16.1 H, Plt Count 86 L, MPV 9.8, Immature Gran % (Auto) 0.800, Neut % (Auto) 64.7, Lymph % (Auto) 21.8, Fountain % (Auto) 9.9, Eos % (Auto) 2.3, Baso % (Auto) 0.5, Absolute Neuts (auto) 2.5, Absolute Lymphs (auto) 0.84, Nucleated RBC % 0, Differential Comment SCANNED, Platelet Estimate MOD DEC, Ovalocytes 1+, Crenated Cell 2+, Schistocytes RARE, Sodium 138, Potassium 4.0, Chloride 103, Carbon Dioxide 28.0, Anion Gap 7, BUN 25 H, Creatinine 5.21 H, Estim Creat Clear Calc 10.75, Est GFR (MDRD) Af Amer 14 L, Est GFR (MDRD) Non-Af 11 L, BUN/Creatinine Ratio 4.8 L, Glucose 118 H, Calcium 11.3 H, Troponin I High Sens 30 06/01/24 13:16: Urine Color Yellow, Urine Clarity Sl. Cloudy, Urine pH 7.0, Ur Specific [place]se[place] 1.010, Urine Protein 30 H, Urine Glucose (UA) Normal, Urine Ketones Negative, Urine Occult Blood 10 H, Urine Nitrite Negative, Urine Bilirubin Negative, Urine Urobilinogen Normal, Ur Leukocyte Esterase 500 H 06/01/24 15:53: PT 14.8, INR 1.2, Phosphorus 3.4, Magnesium 1.5 L, Total Bilirubin 0.80, Direct Bilirubin 0.29, AST 11 L, ALT 11 L, Alkaline Phosphatase 81, Total Protein 5.5 L, Albumin 3.1 L, Globulin 2.4 06/01/24 17:20: POC Glucose 130 H 06/01/24 21:51: POC Glucose 153 H 06/02/24 06:07: WBC 3.9 L, RBC 2.67 L, Hgb 8.1 L, Hct 25.4 L, MCV 95.1 H, MCH 30.3, MCHC 31.9 L, RDW Std Deviation 56.1 H, RDW Coeff of Ursula 15.9 H, Plt Count 88 L, MPV 9.6, Immature Gran % (Auto) 0.800, Neut % (Auto) 67.1, Lymph % (Auto) 19.6, Fountain % (Auto) 10.2 H, Eos % (Auto) 1.8, Baso % (Auto) 0.5, Absolute Neuts (auto) 2.6, Absolute Lymphs (auto) 0.77 L, Nucleated RBC % 0, Sodium 140, Potassium 3.6, Chloride 105, Carbon Dioxide 26.0, Anion Gap 9, BUN 29 H, Creatinine 5.26 H, Estim Creat Clear Calc 10.28, Est GFR (MDRD) Af Amer 14 L, Est GFR (MDRD) Non-Af 11 L, BUN/Creatinine Ratio 5.5 L, Glucose 116 H, Calcium 11.6 H, Magnesium 2.1, TSH 2.090 Imaging Radiology Impression Brain CT 06/01/24 11:56 IMPRESSION: Small vessel ischemia. Stable encephalomalacia within the right occipital lobe consistent with an old infarct. Opacification of the mastoid air cells, more pronounced on the right consistent with a history of mastoiditis. Electronically Signed: Lluvia Ornelas MD at 13:34 EDT , Abdomen/Pelvis CT 06/01/24 11:57 IMPRESSION: Interval worsening of extensive pancreatic ductal dilatation associated with calcifications throughout the pancreas including within the pancreatic duct and pancreatic atrophy, consider MRI with contrast and MRCP for cannot exclude an underlying neoplastic process. Bladder wall thickening, may be secondary to a history of cystitis of uncertain chronicity. Pericardial effusion. Small bilateral pleural effusions associated with minimal lower lobe dependent consolidation. Stable bilateral L5 pars defects associated with a stable grade 1 anterior spondylolisthesis of L5 on S1. Atherosclerosis. Electronically Signed: Lluvia Ornelas MD at 14:07 EDT , Chest X-Ray 06/01/24 13:00 IMPRESSION: Small right pleural effusion. Stable cardiomegaly. Electronically Signed: Lluvia Ornelas MD at 13:37 EDT , Ribs X-Ray 06/01/24 15:35 IMPRESSION: No demonstrated right rib fracture. Electronically Signed: aRndy Lopez MD at 8:18 EDT ,
[2024-06-02] MEDS: Heparin 10,000 UNITS/10 ML Vial IV (11:15)
[2024-06-02] MEDS: Menthol/Lanolin/Calamine/Znox 113 GM Tube 1 APPLIC TOPICAL ×2 (12:02→22:00)
[2024-06-02] MEDS: hydrALAZINE 50 MG Tablet PO ×2 (12:02→22:01)
[2024-06-02] MEDS: dilTIAZem CD 240 MG Capsule PO (12:03)
[2024-06-02] MEDS: Heparin Injection (Vial) 5,000 UNIT/ML VIAL 5000 UNIT SC (12:04)
[2024-06-02] MEDS: Carvedilol 12.5 MG Tablet PO ×2 (12:04→22:02)
[2024-06-02] MEDS: Folic Acid/Vitamin B Comp W-C 1 Capsule 1 CAP PO (12:04)
[2024-06-02] MEDS: Sertraline 50 MG Tablet 25 MG PO (12:05)
[2024-06-02] MEDS: Pantoprazole Sodium 40 MG Tablet PO (12:05)
[2024-06-02] MEDS: Pyridoxine HCl 100 MG Tablet PO (12:05)
[2024-06-02] MEDS: Clopidogrel Bisulfate 75 MG Tablet PO (12:05)
[2024-06-02] MEDS: Tacrolimus Anhydrous 1 MG Capsule 2 MG PO ×2 (12:05→22:04)
[2024-06-02] MEDS: Mycophenolate Mofetil 250 MG Capsule 500 MG PO ×2 (12:11→22:02)
[2024-06-02 12:39] LABS: Bedside Glucose 101 mg/dL (74-106)
--- NOTE | 2024-06-02 14:27 | CASEMGMT ---
Met with patient and his to complete GRANADO form. GRANADO form explained to both who voiced understanding and signed form. Original form placed in pt?s chart and copy provided to patient. Bryanna Macias, Discharge Planning Asst
--- NOTE | 2024-06-02 14:30 | PN_ITS ---
Subjective Subjective Patient seen and examined. He remains quite confused. He was admitted with a complaint of weakness and diarrhea. He says he feels a bit better today, though he still feels weak. He has remained hemodynamically stable. Objective Data Objective Data Vital Signs: Vital Signs Temp Pulse Resp BP Pulse Ox O2 Del Method 97.5 F L 67 14 162/64 H 99 Room Air 06/02/24 11:52 06/02/24 12:02 06/02/24 11:52 06/02/24 12:02 06/02/24 11:52 06/02/24 11:54 Oxygen Delivery Method Room Air Weight: 162 lb 0.636 oz Body Mass Index (BMI) 25.4 Intake & Output: Intake and Output for Last 24 Hours 05/31/24 06/01/24 06/02/24 23:59 23:59 23:59 Intake Total 350 / 350 1544 / 1544 Output Total 150 / 150 1050 / 1050 Balance 200 / 200 494 / 494 Lab / Micro Data 06/02/24 06:07 06/02/24 06:07 Labs: Laboratory Results - last 24 hr 06/01/24 15:53: PT 14.8, INR 1.2, Phosphorus 3.4, Magnesium 1.5 L, Total Bilirubin 0.80, Direct Bilirubin 0.29, AST 11 L, ALT 11 L, Alkaline Phosphatase 81, Total Protein 5.5 L, Albumin 3.1 L, Globulin 2.4 06/01/24 17:20: POC Glucose 130 H 06/01/24 21:51: POC Glucose 153 H 06/02/24 06:07: WBC 3.9 L, RBC 2.67 L, Hgb 8.1 L, Hct 25.4 L, MCV 95.1 H, MCH 30.3, MCHC 31.9 L, RDW Std Deviation 56.1 H, RDW Coeff of Ursula 15.9 H, Plt Count 88 L, MPV 9.6, Immature Gran % (Auto) 0.800, Neut % (Auto) 67.1, Lymph % (Auto) 19.6, Clay % (Auto) 10.2 H, Eos % (Auto) 1.8, Baso % (Auto) 0.5, Absolute Neuts (auto) 2.6, Absolute Lymphs (auto) 0.77 L, Nucleated RBC % 0, Sodium 140, Potassium 3.6, Chloride 105, Carbon Dioxide 26.0, Anion Gap 9, BUN 29 H, C reatinine 5.26 H, Estim Creat Clear Calc 10.28, Est GFR (MDRD) Af Amer 14 L, Est GFR (MDRD) Non-Af 11 L, BUN/Creatinine Ratio 5.5 L, Glucose 116 H, Calcium 11.6 H, Magnesium 2.1, TSH 2.090 06/02/24 11:51: POC Glucose 101 Micro: Microbiology 06/01/24 13:16 Urine, Clean Catch Urine Culture - Preliminary GNR lactose chief merchandising officer Radiography Diagnostic Testing: Radiology Impression Ribs X-Ray 06/01/24 15:35 IMPRESSION: No demonstrated right rib fracture. Electronically Signed: Randy Lopez MD at 8:18 EDT , Physical Exam Const alert Constitutional Narrative: flat affect, weak. General Appearance: cooperative HEENT normocephalic, head/scalp atraumatic and moist oral mucous membranes Eyes PERRL and EOMs intact bilaterally Neck no lymphadenopathy and supple Lymph Lymphatic: no lymphadenopathy noted and no lymphedema noted Resp normal respiratory effort, normal air movement and clear to auscultation bilaterally Cardio regular rate, regular rhythm, S1 normal heart sound, S2 normal heart sound and no murmurs GI normal to inspection, nondistended, normoactive bowel sounds, soft to palpation, non-tender and non-distended Extremity normal capillary refill, no clubbing, cyanosis or edema and no calf tenderness General Extremity: no tenderness to palpation of joints or extremities Skin General Skin Exam: no breakdown Neuro CN's II-XII intact bilaterally, no focal motor deficits, no sensory deficits noted and deep tendon reflexes 2+ bilaterally Motor Exam: strength 5/5 throughout and general weakness Psych cooperative Mood & Affect: flat affect Assessment & Plan Assessment/Plan (1) Failure to thrive: (2) General weakness: PLAN: Plan #Debility and weakness due to dehydration from diarrhea * patient says he feels better now. Diarrhea has not recurred since admission * being hydrated with IVF * PT.OT on board. Fall precautions. * #ESRD: * on hemodialysis MWF. He did not go for dialysis last Saturday due to weakness. * Nephrology on board. Getting dialysis today. * Vascular surgery consulted for removal of sutures for AV fistula created on 05/05/2024 by vascular surgery * #History of alcoholic liver cirrhosis with liver transplant * Follows up at [facility]. Gets monthly blood work to check tacrolimus level. On tacrolimus #Hypertension: #Hyperlipidemia: On statin #Pancytopenia: Likely from cirrhosis. Baseline hemoglobin is around 9-9.5. Platelets are 88 today and WBC is 3.9. This is all chronic. Will monitor. DVT prophylaxis: SCDs. Will DC heparin on account of thrombocytopenia. # Charges/Coding Visit Charges Inpatient E&M: 33478 Subs Hosp L2
[2024-06-02 16:42] LABS: Bedside Glucose 105 mg/dL (74-106)
[2024-06-02] MEDS: Atorvastatin Calcium 40 MG Tablet PO (22:02)
[2024-06-02] MEDS: Tamsulosin HCl 0.4 MG Capsule PO (22:02)
[2024-06-02] MEDS: MELATONIN 10 MG TABLET PO (22:04)
[2024-06-02 22:51] LABS: Bedside Glucose 124 mg/dL (74-106)
[2024-06-02 22:57] LABS: Bedside Glucose 119 mg/dL (74-106)
[2024-06-03] VITALS (15 sets, daily range): BP systolic 130–211; BP diastolic 51–86; PULSE 60–76; RESP 14–18; TEMP 36.2–36.7; O2SAT 94–100; BMI 25.4; BMI 25.2
[2024-06-03] MEDS: Sodium Bicarbonate 650 MG Tablet PO ×3 (06:41→22:35)
[2024-06-03 06:48] LABS: Absolute Lymphocyte Count 0.83 X10^3/uL (0.83-4.51); Absolute Neutrophil Count 2.6 X10^3/uL (2.0-7.7); Basophil# 0.03 X10^3/uL; Basophil% 0.8 % (0-1); Eosinophil# 0.08 X10^3/uL; Hematocrit 25.2 % (40-54); Hemoglobin 7.9 g/dL (13.0-16.5); Lymphocyte # 0.83 X10^3/ul (0.83-4.51); Lymphocyte % 20.9 % (19-41); Mean Corp Hgb Conc 31.3 g/dL (32-36); Mean Corpuscular Hgb 29.7 pg (27.0-32.0); Mean Corpuscular Volume 94.7 fL (80-94); Mean Platelet Vol. 9.7 fl (6.2-12.0); Monocyte# 0.42 X10^3/uL; Monocyte% 10.6 % (0-10); NRBC Flagged by Analyzer 0 % (0-5); Neutrophil # 2.58 X10^3/uL (2.7-7.7); Neutrophil % 64.9 % (47-70); POSITIVE COUNT YES; Platelet Count 88 K/mm3 (150-450); RBC Distribution Width CV 16.3 % (11.6-14.6); RBC Distribution Width SD 57.3 fl (35.1-43.9); Red Blood Count 2.66 M/mm3 (4.6-6.2)
[2024-06-03] MEDS: Acetaminophen 325 MG Tablet 650 MG PO (06:49)
[2024-06-03 07:06] LABS: Anion Gap 6 (5-15); BUN 20 mg/dL (7-18); BUN/Creat Ratio 5.5 RATIO (10-20); Chloride 106 mmol/L (98-107); Creatinine, Serum 3.66 mg/dL (0.70-1.30); EST Glomerular Filtration Rate 17 mL/min (>60); Est Glom Filt Rate - Afr Amer 21 mL/min (>60); Estimated Creatinine Clearance 14.77 ml/min; Glucose 106 mg/dL (74-106); Potassium 3.7 mmol/L (3.5-5.1); Sodium Level 139 mmol/L (136-145)
[2024-06-03 07:18] LABS: Bedside Glucose 104 mg/dL (74-106)
[2024-06-03] MEDS: 0.9% Normal Saline 1,000 ML IV.SOLN. 1000 ML OPERA.SITE (08:18)
[2024-06-03] MEDS: PureFlow B 3K Dialysis Soln 1 BAG 6 BAG PF (08:18)
[2024-06-03] MEDS: 0.9% Saline Lock 10 ML Syringe IV (08:18)
[2024-06-03] MEDS: Epoetin Alfa epbx 10,000 UNIT/ML 20000 UNIT IV (08:31)
--- NOTE | 2024-06-03 09:34 | PN_ITS ---
Subjective Subjective Patient seen and examined. HE had no complaints and had an uneventful night. His was by his bedside. HE was having dialysis. Review of systems was otherwise negative. His Hb toay is 7.9. Objective Data Objective Data Vital Signs: Vital Signs Temp Pulse Resp BP Pulse Ox O2 Del Method 97.4 F L 64 14 140/51 H 94 Room Air 06/03/24 07:40 06/03/24 09:06 06/03/24 09:06 06/03/24 09:06 06/03/24 07:59 06/03/24 09:06 Oxygen Delivery Method Room Air Weight: 162 lb 0.636 oz Body Mass Index (BMI) 25.4 Intake & Output: Intake and Output for Last 24 Hours 06/01/24 06/02/24 06/03/24 23:59 23:59 23:59 Intake Total 350 / 350 1844 / 1844 300 / 300 Output Total 150 / 150 1050 / 1050 Balance 200 / 200 794 / 794 300 / 300 Lab / Micro Data 06/03/24 06:03 06/03/24 06:03 Labs: Laboratory Results - last 24 hr 06/02/24 05:57: POC Glucose 124 H 06/02/24 11:51: POC Glucose 101 06/02/24 16:23: POC Glucose 105 06/02/24 21:58: POC Glucose 119 H 06/03/24 06:03: WBC 4.0 L, RBC 2.66 L, Hgb 7.9 L, Hct 25.2 L, MCV 94.7 H, MCH 29.7, MCHC 31.3 L, RDW Std Deviation 57.3 H, RDW Coeff of Ursula 16.3 H, Plt Count 88 L, MPV 9.7, Immature Gran % (Auto) 0.800, Neut % (Auto) 64.9, Lymph % (Auto) 20.9, [place] % (Auto) 10.6 H, Eos % (Auto) 2.0, Baso % (Auto) 0.8, Absolute Neuts (auto) 2.6, Absolute Lymphs (auto) 0.83, Nucleated RBC % 0, Sodium 139, Potassium 3.7, Chloride 106, Carbon Dioxide 27.0, Anion Gap 6, BUN 20 H, C reatinine 3.66 H, Estim Creat Clear Calc 14.77, Est GFR (MDRD) Af Amer 21 L, Est GFR (MDRD) Non-Af 17 L, BUN/Creatinine Ratio 5.5 L, Glucose 106, Calcium 11.0 H 06/03/24 06:37: POC Glucose 104 Micro: Microbiology 06/01/24 13:16 Urine, Clean Catch Urine Culture - Preliminary GNR lactose power builder developer Physical Exam Const alert Constitutional Narrative: weak and frail General Appearance: cooperative HEENT normocephalic, head/scalp atraumatic and moist oral mucous membranes Eyes PERRL and EOMs intact bilaterally Neck no lymphadenopathy and supple Lymph Lymphatic: no lymphadenopathy noted and no lymphedema noted Resp normal respiratory effort, normal air movement and clear to auscultation bilaterally Resp Narrative: on room air Cardio regular rate, regular rhythm, S1 normal heart sound, S2 normal heart sound and no murmurs GI normal to inspection, nondistended, normoactive bowel sounds, soft to palpation, non-tender and non-distended Extremity normal capillary refill, no clubbing, cyanosis or edema and no calf tenderness Extremity Narrative: dialysis catheter in chest; has AV fistula in LUE with stitches in left inner forearm at site of fistula General Extremity: no tenderness to palpation of joints or extremities Skin General Skin Exam: no breakdown Neuro CN's II-XII intact bilaterally, no focal motor deficits, no sensory deficits noted and deep tendon reflexes 2+ bilaterally Motor Exam: strength 5/5 throughout and general weakness Psych cooperative Appearance: appropriate Mood & Affect: flat affect Assessment & Plan Assessment/Plan (1) Failure to thrive: (2) General weakness: PLAN: Plan #Debility and weakness due to dehydration from diarrhea * he still feels weak though diarrhea has resolved. * PT.OT on board. Fall precautions. * #ESRD: * on hemodialysis MWF. He did not go for dialysis last Saturday due to weakness. * Nephrology on board. Getting dialysis today/ * Vascular surgery consulted for removal of sutures for AV fistula created on 05/05/2024 by vascular surgery * #History of alcoholic liver cirrhosis with liver transplant * Follows up at [facility]. Gets monthly blood work to check tacrolimus level. On tacrolimus #Abnormal pancreatic duct dilatation * CT of the abdomen and pelvis done on admission showed interval worsening of extensive pancreatic ductal dilatation associated with calcifications over the pancreas including within the pancreatic duct and pancreatic atrophy. * MRCP and MRI abdomen with contrast ordered as cannot exclude an underlying neoplastic process. #Hypertension: #Hyperlipidemia: On statin #Pancytopenia: * Likely from cirrhosis. Baseline hemoglobin is around 9-9.5. * Platelets are 88 today and WBC is 4. with Hb being 7.9. * This is all chronic. Will monitor. DVT prophylaxis: SCDs. Disposition: * for dc home with home healthcare when medically stable. * His was who was present said she wants him home. * However she says it is difficult to care for patient as he is but very physically active. * She would appreciate some home health assistance at home. * * 06/03/2024 at 3:14 PM. I was informed by patient's nurse that was concerned that patient was becoming more confused and he had a possible right facial droop. I evaluated patient and though he did appear to have very mild right facial droop, this was a sequelae from his previous stroke as his said he had residual droop from previous stroke. says she thinks has been like that since Saturday but she is not sure. He appeared at his baseline since admission with episodic confusion but had no focal weakness. CT of the brain ordered which showed no evidence of a stroke and showed chronic encephalomalacia in the right occipital lobe as well as chronic involutional changes. Law continue to monitor. Charges/Coding Visit Charges Inpatient E&M: 47058 Subs Hosp L2
--- NOTE | 2024-06-03 10:02 | CASEMGMT ---
Discharge Planning A list of?HH providers including quality and resource use data and consistent with the patient's preferred geographic region, medical needs, and insurance network was created in [employer] Guide.? This list was provided to the RN TAMARA. Bryanna Macias, Discharge Planning Asst.
--- NOTE | 2024-06-03 10:08 | CASEMGMT ---
PASCALE MCDONALD Assessment: Face to Face with pt for initial transition planning/care coordination assessment. RN TAMARA introduced self and role at [facility], pt voices understanding and consents to assessment. Pt is A&O x3 and answers all questions appropriately at this time. Pt at bedside but left room when pt and her did not agree on pt ability with ADLs. She did come back in room at end of assessment. Pt receiving dialysis and dialysis nurse present in room. Care providers, pharmacy, and demographics verified/updated. Admitting Dx: general weakness, dehydration after diarrhea Strata Score: 3 PCP:Adebayo Specialists:nephro, cardio; liver and eyes all at [facility]. Pt could not recall names. Preferred Pharmacy: [facility] Insurance: [facility] Prescription Benefit: yes LNOK: Brittani Baldwin, ; Raheel Pia, dtr Living Arrangements: Pt lives with in a split level home with a ramp to enter. Pt reports assists in all ADL/IADLs. Pt has not walked in mos. Per , pt sits and sleeps in recliner and goes 3 steps to BSC and then back to recliner. Pt denies concerns at home. Transportation: Pt states he can drive but doesn't. transports him to medical appts. DME:crutches, cane, shower chair, walker, w/c, BSC HHC/SNF: Pt reports he has had [facility] but it was a waste of time . Pt denies SNF stays. Pt states no concerns with going home at time of dc. Pt goes to dialysis M/W/F at [facility] in [place]. Pt did not know his chair time. Therapy ordered but has not eval'd pt yet. Pt states no further concerns/needs. CM to follow. Advised pt to ask CM if any further question/concerns/needs arise, voices understanding. Pt Goal: Home Plan: TBD pending therapy evals and course of hospitalization. Handoff given to NII Mckinley RN, CM
[2024-06-03] MEDS: Sertraline 50 MG Tablet 25 MG PO (10:43)
[2024-06-03] MEDS: dilTIAZem CD 240 MG Capsule PO (10:43)
[2024-06-03] MEDS: Pantoprazole Sodium 40 MG Tablet PO (10:43)
[2024-06-03] MEDS: hydrALAZINE 50 MG Tablet PO ×2 (10:43→22:34)
[2024-06-03] MEDS: Mycophenolate Mofetil 250 MG Capsule 500 MG PO ×2 (10:43→22:20)
[2024-06-03] MEDS: Tacrolimus Anhydrous 1 MG Capsule 2 MG PO ×2 (10:43→22:35)
[2024-06-03] MEDS: Carvedilol 12.5 MG Tablet PO ×2 (10:44→22:35)
[2024-06-03] MEDS: Pyridoxine HCl 100 MG Tablet PO (10:44)
[2024-06-03] MEDS: Midodrine HCl 5 MG Tablet PO ×2 (10:44→22:35)
[2024-06-03] MEDS: Clopidogrel Bisulfate 75 MG Tablet PO (10:44)
[2024-06-03] MEDS: Folic Acid/Vitamin B Comp W-C 1 Capsule 1 CAP PO (10:45)
[2024-06-03] MEDS: Ceftriaxone 1 GM/50 ML BAG IV (10:45)
[2024-06-03 11:44] LABS: Bedside Glucose 112 mg/dL (74-106)
--- NOTE | 2024-06-03 12:44 | MRI_ITS ---
STUDY: MRI ABDOMEN WITHOUT CONTRAST REASON FOR EXAM: Male, 79 years old. Pancreatic duct dilatation TECHNIQUE: Standardized fat and water weighted pulse sequences were obtained in all 3 orthogonal planes. MRCP sequences with 3-D reconstructions performed. There is motion artifact. COMPARISON: CT June 01, 2024 and August 22, 2021 FINDINGS: There is lower lung atelectasis. There is moderate pericardial effusion. There is no dominant mass in the liver. There is mild intrahepatic biliary dilatation. Gallbladder is not seen consistent with cholecystectomy. The common bile duct is dilated measuring 1.3 cm with region of focal narrowing. Normal spleen. There is severe dilatation of the pancreatic duct measuring 5.1 cm in the body of the pancreas. There is severe atrophy of the pancreas. There are diminished signal regions including at the head of the pancreas consistent with calcifications seen on CT. Normal bilateral adrenal glands. There is mild atrophy of the kidneys. There are bilateral renal cysts measuring up to 3.5 cm on the left. No hydronephrosis. Normal visualized stomach. Normal small intestine. Normal colon. There is non-visualization of the appendix. Normal abdominal aorta. Normal inferior vena cava. Normal retroperitoneum. Normal abdominal wall. Lumbar levoscoliosis with degenerative change of the spine. MRI/MRCP Abdomen without Contrast IMPRESSION: Severe dilatation of the pancreatic duct and atrophy of the pancreas. Calcifications consistent with component of chronic pancreatitis. No dominant mass. Dilatation of the common bile duct with focal stricture and narrowing. Mild intrahepatic biliary dilatation. Pericardial effusion. Electronically Signed: Shree Steele MD at 19:38 EDT ,
[2024-06-03] MEDS: LORazepam 1 MG Tablet PO (13:04)
--- NOTE | 2024-06-03 13:22 | NURSING ---
called by Dr Jessica regarding for MRI- talked with MRI aware they are trying to get ahold of her. Talked with Nikkie as family verbalized concern of patient's physical appearance and lean. Aware Nikkie messaged Dr. Jessica and talked with her. Talked with Elfego ASHRAFbridge ironworker- Elfego came to room around same time as dr. Jessica. Aware per Dr. Jessica not to call stroke alert, aware per Elfego the slurred speak and behavior is what he say yesterday as well. executive housekeeper dante muniz.
--- NOTE | 2024-06-03 13:25 | CT_ITS ---
INDICATION: altered mental status EXAMINATION: CT BRAIN - CT Head or Brain W/O Contrast Injection TECHNIQUE: Multiple axial images were obtained of the head without intravenous contrast. The protocol utilizes one or more of the following dose reduction techniques: automated exposure control, adjustment of mA and/or kV according to patient size,and/or use of iterative reconstruction technique. IV Contrast dosage and agent: None. RADIATION DOSAGE (If Supplied By Facility): CTDIvol = ( 44.99 ) mGy, DLP = ( 846.73 ) mGycm COMPARISON: FINDINGS: BRAIN PARENCHYMA: No intra- or extra-axial hemorrhage. No evidence of acute infarct. Right occipital encephalomalacia unchanged. Periventricular deep white matter changes likely due to chronic microvascular disease. There is preservation of the abad/white matter interface. Posterior fossa structures are unremarkable. CSF SPACES: Moderate diffuse atrophy. No hydrocephalus. Basal cisterns are patent. CALVARIUM, SKULL BASE, PARANASAL SINUSES AND MASTOID AIR CELLS: Opacification of the right mastoid air cells unchanged. No discrete lytic or blastic abnormalities. ORBITS: Both globes, extraocular muscles, optic nerves and retrobulbar fat appear unremarkable. CT/Brain/Head without Contrast IMPRESSION: 1. No significant change. 2. Right occipital encephalomalacia. 3. No acute intracranial process. 4. Chronic involutional changes of the brain. Electronically Signed: Holland Grossman MD at 14:15 EDT ,
--- NOTE | 2024-06-03 13:28 | CON.PCM.SX_ITS ---
Assessment & Plan Assessment/Plan (1) ESRD (end stage renal disease) on dialysis: PLAN: Plan He is status post right stage I basilic fistula creation. Sutures remain intact to the right arm incision site. Based on exam today, will leave these in place until his scheduled office visit on 06/09/2024. HPI Consult Data Date of Consult: 06/03/24 HPI Narrative HPI Narrative: SELVIN SANON, is a 79 M who presented to the [facility] ER with weakness and diarrhea and was admitted for further management. He also has end-stage renal disease and is status post right stage I basilic fistula creation on 05/05/2024. Currently receives dialysis via tunneled catheter which has been functioning well. The fistula incision site was closed with sutures which remain in place. He was due to for follow-up in our office next Saturday. He denies any pain at the incision site. Has not noticed any drainage, erythema, focal swelling. Has not noticed any new swelling, pain, weakness, numbness/paresthesias through the right arm or hand. [facility] Medical History Loss of hearing Wears glasses Wears dentures Anxiety Depression Alcohol use Insulin dependent diabetes mellitus Uses wheelchair Walker as ambulation aid Back pain Dietary restriction History of ulceration Gastric reflux Shortness of breath on exertion History of renal dialysis History of edema History of echocardiogram Cardiology follow-up encounter Arthritis DVT (deep venous thrombosis) TIA (transient ischemic attack) Coronary artery disease Congestive heart failure Cirrhosis Hemochromatosis Non-smoker Hyperlipidemia Hypertension Stroke/cerebrovascular accident Home Medications ?Medication ?Instructions ?Recorded ?Last Taken ?Type aspirin 81 mg tablet 81 mg PO DAILY 08/22/21 06/01/24 History atorvastatin 40 mg tablet 40 mg PO QHS 08/22/21 05/31/24 History sodium bicarbonate 650 mg tablet 650 mg PO TID 08/22/21 06/01/24 History pyridoxine (vitamin B6) 100 mg 100 mg PO DAILY 04/26/23 06/01/24 History tablet (Vitamin B-6) insulin glargine 100 unit/mL (3 4 unit subcut QHS 03/03/24 05/04/24 History mL) subcutaneous pen (Lantus Solostar U-100 Insulin) insulin lispro 100 unit/mL 1 sliding scale dose subcut TID 03/03/24 Unknown History subcutaneous pen (Humalog KwikPen (U-100) Insulin) midodrine 5 mg tablet 5 mg PO BID 03/03/24 06/01/24 History tamsulosin 0.4 mg capsule 0.4 mg PO QHS 03/03/24 05/31/24 History torsemide 20 mg tablet 40 mg PO DAILY 03/03/24 06/01/24 History carvedilol 12.5 mg tablet 12.5 mg PO BID 05/01/24 05/31/24 History clopidogrel 75 mg tablet 75 mg PO DAILY 05/01/24 06/01/24 History diltiazem HCl 240 mg 240 mg PO DAILY 05/01/24 06/01/24 History capsule,extended release 24 hr mycophenolate mofetil 250 mg 500 mg PO BID 05/01/24 06/01/24 History capsule pantoprazole 40 mg tablet,delayed 40 mg PO DAILY 05/01/24 06/01/24 History release sertraline 25 mg tablet 25 mg PO DAILY 05/01/24 06/01/24 History tacrolimus 1 mg capsule, 2 mg PO BID 05/01/24 06/01/24 History immediate-release hydralazine 50 mg tablet 50 mg PO Q12.TCU 06/01/24 06/01/24 History vitamin B complex-vitamin C-folic 1 tab PO DAILY 06/01/24 06/01/24 History acid 0.8 mg tablet (Jie-Anne-Marie) Allergy/AdvReac Type Severity Reaction Status Date / Time No Known Allergies Allergy Verified 06/01/24 12:18 Surgical History History of cardiac catheterization Hx of colonoscopy History of coronary artery stent placement History of embolic filter insertion History of herniorrhaphy History of appendectomy History of cholecystectomy History of liver transplant Social History household members: spouse Smoking Status: Never smoker alcohol intake: never substance use type: does not use Physical Exam Const alert General Appearance: cooperative HEENT normocephalic, head/scalp atraumatic and external nose normal Eyes General Eye: normal appearance of both eyes Neck General: normal visual inspection Resp normal respiratory effort Effort and Inspection: able to speak in complete sentences Cardio Rate: regular rate Rhythm: regular rhythm Extremity Extremity Narrative: Right arm incision site with sutures intact, most of the skin glue as seemingly peeled off. Incision site appears to be well-healing, though the medial aspect skin does not quite appear fully healed. No drainage, erythema, focal swelling. Fistula with good bruit from the antecubital space to the axilla, palpable thrill through the upper arm. Right radial pulse palpable, right hand appropriately warm and pink. Skin no rashes or lesions noted Neuro CN's II-XII intact bilaterally Speech: speech normal Psych mental status grossly normal Mood & Affect: flat affect Lab / Micro Data 06/03/24 06:03 06/03/24 06:03 Labs: Laboratory Results - last 24 hr 06/02/24 05:57: POC Glucose 124 H 06/02/24 16:23: POC Glucose 105 06/02/24 21:58: POC Glucose 119 H 06/03/24 06:03: WBC 4.0 L, RBC 2.66 L, Hgb 7.9 L, Hct 25.2 L, MCV 94.7 H, MCH 29.7, MCHC 31.3 L, RDW Std Deviation 57.3 H, RDW Coeff of Ursula 16.3 H, Plt Count 88 L, MPV 9.7, Immature Gran % (Auto) 0.800, Neut % (Auto) 64.9, Lymph % (Auto) 20.9, Slope % (Auto) 10.6 H, Eos % (Auto) 2.0, Baso % (Auto) 0.8, Absolute Neuts (auto) 2.6, Absolute Lymphs (auto) 0.83, Nucleated RBC % 0, Sodium 139, Potassium 3.7, Chloride 106, Carbon Dioxide 27.0, Anion Gap 6, BUN 20 H, C reatinine 3.66 H, Estim Creat Clear Calc 14.77, Est GFR (MDRD) Af Amer 21 L, Est GFR (MDRD) Non-Af 17 L, BUN/Creatinine Ratio 5.5 L, Glucose 106, Calcium 11.0 H 06/03/24 06:37: POC Glucose 104 06/03/24 11:26: POC Glucose 112 H Micro: Microbiology 06/01/24 13:16 Urine, Clean Catch Urine Culture - Preliminary GNR 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
--- NOTE | 2024-06-03 13:31 | NURSING ---
This RN was in room to give pt his medication and when I walked in pt was half way laying in the bed, called the PROGRAM/MUSIC DIRECTOR in help get him back to bed and just then the PT/OT girls walked in. They started to access him and started saying that he never was leaning to the left side like this at home. PT continued to work with him and noticed how bad his leaning was and also stated that his face was more drooping. This RN went and notified Dr. Jessica and asked her to come look at pt to see if he looked any different than this am. made it to room and checked him out and talked with . She then ordered a stat CT of the brain to be done.
[2024-06-03 13:44] LABS: Bedside Glucose 112 mg/dL (74-106)
--- NOTE | 2024-06-03 14:50 | CASEMGMT ---
Discharge Planning A list of?SNF providers including quality and resource use data and consistent with the patient's preferred geographic region, medical needs, and insurance network was created in CarePort Guide.? This list was provided to the SW. Bryanna Macias Discharge Planning Asst.
--- NOTE | 2024-06-03 16:40 | CASEMGMT ---
Social Work SW met with pts and discussed advance directives. Pt has a living will and health care POA naming his Brittani Baldwin. Brittani notified documents are not on file at [facility] and SW requested they be brought in for scanning into medical record. MARANDA Carmichael
--- NOTE | 2024-06-03 16:42 | CASEMGMT ---
Social Work SW met with pt's . Pt sleeping throughout conversation. SW spoke with pt regarding discharge plan. Pt stating pt would not want to go to SNF and that she will take him home and take care of him. SW discussed therapy with her and that pt was dependent x2 for laying to sitting and pt could not sit EOB and would be total assist for ADLS. Pt's does not feel pt would want to go to SNF. SW explained that it could be for short term rehab prior to return home. SW also inquired about transportation to Dialysis. Pt's stating she gets pt from recliner to wheelchair, from wheelchair to car and from car to wheelchair at dialysis. SW discuss that at current levels, pt cannot do this. stating maybe she can get transportation. also states we might be at the end of the road . Nursing updated to 's statement. A list of SNF providers including quality and resource use data and consistent with the patient?s preferred geographic region, medical needs, and insurance network were provided from the CarePort Guide. states she will talk to her family tonleonila. GARCIA/RNTAMARA to follow up tomorrow. MARANDA Carmichael
[2024-06-03 16:51] LABS: Bedside Glucose 108 mg/dL (74-106)
[2024-06-03] MEDS: Tamsulosin HCl 0.4 MG Capsule PO (22:35)
[2024-06-03] MEDS: MELATONIN 10 MG TABLET PO (22:35)
[2024-06-03] MEDS: Atorvastatin Calcium 40 MG Tablet PO (22:35)
[2024-06-03] MEDS: Nystatin Powder 15gm Bottle 1 APPLIC TOPICAL (22:43)
[2024-06-03 23:38] LABS: Bedside Glucose 92 mg/dL (74-106)
[2024-06-04 03:33] VITALS: BP 139/99; PULSE 89; RESP 16; TEMP 36.7; O2SAT 100
[2024-06-04] MEDS: Menthol/Lanolin/Calamine/Znox 113 GM Tube 1 APPLIC TOPICAL ×2 (03:35→21:11)
[2024-06-04 06:46] LABS: Absolute Neutrophil Count 3.3 X10^3/uL (2.0-7.7); Basophil# 0.04 X10^3/uL; Basophil% 0.8 % (0-1); Eosinophil# 0.09 X10^3/uL; Eosinophils% 1.8 % (0-5); Hematocrit 25.4 % (40-54); Hemoglobin 8.4 g/dL (13.0-16.5); Lymphocyte % 18.1 % (19-41); Mean Corp Hgb Conc 33.1 g/dL (32-36); Mean Corpuscular Hgb 31.1 pg (27.0-32.0); Mean Corpuscular Volume 94.1 fL (80-94); Mean Platelet Vol. 8.8 fl (6.2-12.0); Monocyte# 0.58 X10^3/uL; Monocyte% 11.7 % (0-10); NRBC Flagged by Analyzer 0 % (0-5); Neutrophil # 3.26 X10^3/uL (2.7-7.7); Neutrophil % 65.8 % (47-70); POSITIVE COUNT YES; Platelet Count 99 K/mm3 (150-450); RBC Distribution Width CV 16.2 % (11.6-14.6)
[2024-06-04] MEDS: Sodium Bicarbonate 650 MG Tablet PO (06:49)
[2024-06-04 07:07] LABS: Bedside Glucose 93 mg/dL (74-106)
[2024-06-04 07:27] LABS: Anion Gap 8 (5-15); BUN 16 mg/dL (7-18); Calcium,Total 11.7 mg/dL (8.5-10.1); Chloride 106 mmol/L (98-107); Creatinine, Serum 3.19 mg/dL (0.70-1.30); EST Glomerular Filtration Rate 20 mL/min (>60); Est Glom Filt Rate - Afr Amer 24 mL/min (>60); Estimated Creatinine Clearance 16.94 ml/min; Glucose 109 mg/dL (74-106); Potassium 3.7 mmol/L (3.5-5.1); Sodium Level 140 mmol/L (136-145)
[2024-06-04 07:56] VITALS: O2SAT 94
[2024-06-04 09:30] VITALS: BP 142/87; PULSE 83; RESP 18; TEMP 36.2; O2SAT 97
[2024-06-04] MEDS: Ceftriaxone 1 GM/50 ML BAG IV (09:42)
--- NOTE | 2024-06-04 10:25 | PN_ITS ---
Subjective Subjective Patient seen and examined. His , son and daughter were by her bedside. He was weak and frail but had no active complaints. Review of systems is otherwise negative. He has remained hemodynamically stable. was concerned the patient is dying. I did have a meeting with the , son and daughter at this morning. says she did feel patient was dying as he had been getting progressively weaker. She is the sole caregiver and space patient can get quite aggressive and mean to her and refuse care. He has refused to go for dialysis about 3 times recently. She feels patient will be upset if she tries sending to a chcf. Patient's daughter said her children available to help and she wants her father to get the best care and explained to him going to [facility] nursing facility if needed. Objective Data Objective Data Vital Signs: Vital Signs Temp Pulse Resp BP Pulse Ox O2 Del Method 97.1 F L 83 18 142/87 H 97 Room Air 06/04/24 09:30 06/04/24 09:30 06/04/24 09:30 06/04/24 09:30 06/04/24 09:30 06/04/24 09:30 Oxygen Delivery Method Room Air Weight: 160 lb 11.472 oz Body Mass Index (BMI) 25.2 Intake & Output: Intake and Output for Last 24 Hours 06/02/24 06/03/24 06/04/24 23:59 23:59 23:59 Intake Total 1844 / 1844 450 / 600 300 / 300 Output Total 1050 / 1050 570 / 570 Balance 794 / 794 -120 / 30 300 / 300 Lab / Micro Data 06/04/24 06:29 06/04/24 06:29 Labs: Laboratory Results - last 24 hr 06/03/24 11:26: POC Glucose 112 H 06/03/24 13:20: POC Glucose 112 H 06/03/24 16:32: POC Glucose 108 H 06/03/24 22:42: POC Glucose 92 06/04/24 06:29: WBC 5.0, RBC 2.70 L, Hgb 8.4 L, Hct 25.4 L, MCV 94.1 H, MCH 31.1, MCHC 33.1 D, RDW Std Deviation 56.0 H, RDW Coeff of Ursula 16.2 H, Plt Count 99 L, MPV 8.8, Immature Gran % (Auto) 1.800 H, Neut % (Auto) 65.8, Lymph % (Auto) 18.1 L, [place] % (Auto) 11.7 H, Eos % (Auto) 1.8, Baso % (Auto) 0.8, Absolute Neuts (auto) 3.3, Absolute Lymphs (auto) 0.90, Nucleated RBC % 0, Sodium 140, Potassium 3.7, Chloride 106, Carbon Dioxide 26.0, Anion Gap 8, BUN 16, Creatinine 3.19 H, Estim Creat Clear Calc 16.94, Est GFR (MDRD) Af Amer 24 L , Est GFR (MDRD) Non-Af 20 L, BUN/Creatinine Ratio 5.0 L, Glucose 109 H, Calcium 11.7 H 06/04/24 06:48: POC Glucose 93 Micro: Microbiology 06/01/24 13:16 Urine, Clean Catch Urine Culture - Final Klebsiella pneumoniae sp pneum Radiography Diagnostic Testing: Radiology Impression MRCP 06/03/24 12:44 IMPRESSION: Severe dilatation of the pancreatic duct and atrophy of the pancreas. Calcifications consistent with component of chronic pancreatitis. No dominant mass. Dilatation of the common bile duct with focal stricture and narrowing. Mild intrahepatic biliary dilatation. Pericardial effusion. Electronically Signed: Shree Steele MD at 19:38 EDT , Brain CT 06/03/24 13:25 IMPRESSION: 1. No significant change. 2. Right occipital encephalomalacia. 3. No acute intracranial process. 4. Chronic involutional changes of the brain. Electronically Signed: Holland Grossman MD at 14:15 EDT , Physical Exam Const alert Constitutional Narrative: weak and frail General Appearance: cooperative HEENT normocephalic, head/scalp atraumatic and moist oral mucous membranes Eyes PERRL and EOMs intact bilaterally Neck no lymphadenopathy and supple Lymph Lymphatic: no lymphadenopathy noted and no lymphedema noted Resp normal respiratory effort, normal air movement and clear to auscultation bilaterally Resp Narrative: on room air Cardio regular rate, regular rhythm, S1 normal heart sound, S2 normal heart sound and no murmurs GI normal to inspection, nondistended, normoactive bowel sounds, soft to palpation, non-tender and non-distended Extremity normal capillary refill, no clubbing, cyanosis or edema and no calf tenderness Extremity Narrative: dialysis catheter in chest; has AV fistula in LUE with stitches in left inner forearm at site of fistula General Extremity: no tenderness to palpation of joints or extremities Skin General Skin Exam: no breakdown Neuro CN's II-XII intact bilaterally, no focal motor deficits, no sensory deficits noted and deep tendon reflexes 2+ bilaterally Motor Exam: strength 5/5 throughout and general weakness Psych cooperative Appearance: appropriate Mood & Affect: flat affect Assessment & Plan Assessment/Plan (1) Failure to thrive: (2) General weakness: PLAN: Plan #Debility and weakness due to dehydration from diarrhea * he still feels weak though diarrhea has resolved. * PT.OT on board. Fall precautions. * was concerned about weakness and possible stroke. CT of the brain done did not show any acute intracranial pathology. His symptoms had essentially been present since admission and even before admission. 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 * speech therapy consulted due to difficulty with swallowing. * #ESRD: * on hemodialysis MW. He did not go for dialysis last Saturday due to weakness. * Nephrology on board. Getting dialysis today/ * Vascular surgery consulted for removal of sutures for AV fistula created on 05/05/2024 by vascular surgery * #History of alcoholic liver cirrhosis with liver transplant * Follows up at [facility]. Gets monthly blood work to check tacrolimus level. On tacrolimus #Abnormal pancreatic duct dilatation * CT of the abdomen and pelvis done on admission showed interval worsening of extensive pancreatic ductal dilatation associated with calcifications over the pancreas including within the pancreatic duct and pancreatic atrophy. * MRCP done yesterday showed severe dilatation of the pancreatic duct and a trophy of the pancreas with calcifications consistent with component of chronic pancreatitis and no dominant mass. There was dilatation of the common bile duct with focal stricture narrowing and mild intrahepatic biliary dilatation also. * Will consult gastroenterology * #Hypertension: #Hyperlipidemia: On statin #Pancytopenia: * Likely from cirrhosis. Baseline hemoglobin is around 9-9.5. * Platelets are 99 today and WBC is 5. with Hb being 8.4 today. Has improved since yesterday * This is all chronic. Will monitor. DVT prophylaxis: SCDs. Disposition: * I met with patient's , son and daughter today. had stated yesterday that she felt patient was dying. Daughter seemed visibly upset about this comment and asked if her father was at the point of dying. I explained that father was not acutely ill to the point of dying now but was chronically ill and very debilitated. Daughter said the patient's is overwhelmed with taking care of him at home and also admitted that patient has been quite difficult and has refused to go for dialysis 3 times recently. She said he will set her and see some mean things when he does not want to comply with his care. Daughter stated her children that is patient's grandchildren are available to help and she feels that patient's has to be willing to accept the help. I explained to them that patient would benefit from placement and also to give his some respite. is agreeable to placement but does not think that the patient would want that. They are not willing 20 changing his CODE STATUS now. Case management informed to discuss with family about possible placement. Charges/Coding Visit Charges Inpatient E&M: 55600 Subs Hosp L2
--- NOTE | 2024-06-04 11:06 | CASEMGMT ---
Social Work SW met with pt's , daughter and son to discuss discharge plan. SW discussed pt's limitations with therapy and that if pt returns home he will need 24 hour care and at this time it takes 2 people to move him. Pt dgt and son are adamant that pt will not go to a SNF and want pt to return home with pt . Dgt states that her two kids are willing to assist with pt care and they will find ways to fill in the gaps. SW inquired about transportation to Dialysis and family is asking about transportation options. SW explained home health care and family would want this. SW provided copy of private duty home health aid list. VM left with [facility] in [place] to check on transportation options in that area. RNCM updated that family is insistent that pt will be returning home. MARANDA Carmichael
--- NOTE | 2024-06-04 11:31 | CASEMGMT ---
Addendum entered by Alvina Nelson 06/04/24 12:44: informed that her daughter, Marsha, would like to speak with this PASCALE MCDONALD and she placed call to Marsha while PASCALE MCDONALD in room. Marsha states she is aware the plan is now for SNF, and reinforces that the plan is for short-term SNF, with plans for pt to eventually return home. She states she wants to make sure that the facility is fully-staffed and that they can provide good care for him and states she has not heard anything good and does not want him to go to [facility]. She was made aware [facility] CM or SW is not able to make recommendations, that SNF referrals are based on pt/families choice/preference. She was also made aware of SNF list from M[employer] w/star-ratings that was provided to her mother. She states she did not see the list and would like to review it and asked for it to e-mailed to her @ [email or web address]. Bryanna, dc graduate teaching assistant, made aware and states she will e-mail it to her. Marsha made aware they can make calls to SNF to ask questions and can even tour facilities, if desired, so they can make informed decision. She states she will review the list and make calls today and is hoping she will have list of preferences before the end of the day. She is aware pt will need transportation from SNF to OP HD and that he will need cot transport and she states plans to ask the facilities if they provide this as well. Marsha also made aware of possible option of SNF's that provide on-site HD. Addendum entered by Alvina Nelson 06/04/24 11:52: Dr Jessica made aware SNF is now the discharge plan. Addendum entered by Alvina Nelson 06/04/24 11:52: Per , chair time @ [facility] in [place] is @ 1 PM, MWF. Original Note: PASCALE MCDONALD note: Per Cristiana ZELAYA, and family wish to take pt home and would like HHC. PASCALE MCDONALD to room. Discussed discharge plan and they verify they wish for pt to be home. PASCALE MCDONALD provided them HHC list that was prepared by tra Gould graduate teaching assistant. PASCALE MCDONALD asked and family if they would be willing to stay and observe therapy work w/pt this morning to be able to see how much care is needed for pt so they can ensure they can provide the care needed. They all are agreeable to this. Call placed to therapy and they worked w/pt while and family present. PASCALE MCDONALD went back to room after therapy worked w/pt. @ bedside and states daughter and son have both left. She states she has decided for pt to go to SNF, stating she has the SNF list that was provided to her and states [facility] is her 1st preference and 2nd would be [facility] in [place]. GARCIA, Cristiana, made aware. PASCALE MCDONALD inquired if daughter and son are aware of her decision and she states they are. She stated, Anyone in their right mind can see he needs more help than I can provide. I know my daughter was checking into her children helping, but they have children also and he needs more help / than we can provide . She states, I asked the good Lord for an answer on what to do and this is the only thing I have peace with . She stated she is hopeful after a week or two @ a SNF, that he will be able to return home at that time, stating that is her ultimate goal. She inquired about transportation to [facility] in [place] and was made aware SW checking into this. Angelita HORTON RN, CM
[2024-06-04 11:52] LABS: Bedside Glucose 107 mg/dL (74-106)
--- NOTE | 2024-06-04 12:04 | CASEMGMT ---
Discharge Planning Referral sent to [facility] via [facility]. Bryanna Macias DC Planning Asst.
--- NOTE | 2024-06-04 12:21 | CASEMGMT ---
Discharge Planning A list of?SNF providers including quality and resource use data and consistent with the patient's preferred geographic region, medical needs, and insurance network were provided via email ([email or web address]) from the CarePort Guide link. Bryanna Macias, Discharge Planning Asst.
[2024-06-04 15:11] VITALS: BP 139/73; PULSE 76; RESP 18; TEMP 36.2; O2SAT 97
[2024-06-04 16:44] LABS: Bedside Glucose 104 mg/dL (74-106)
--- NOTE | 2024-06-04 16:45 | CASEMGMT ---
Discharge Planning A list of?SNF providers including quality and resource use data and consistent with the patient's preferred geographic region, medical needs, and insurance network were provided via email ([email or web address]) from the CarePort Guide link. This list was specific to in-network providers that provided on-site dialysis. Bryanna Macias, Discharge Planning Asst.
--- NOTE | 2024-06-04 16:55 | CASEMGMT ---
Social Work GARCIA met with pt's who was on the phone with dgt Amberly. Amberly states she has worked through the list and has called facilities of choice and is unable to find any facility that will provide cot transportation to dialysis. GARCIA suggested finding a facility that would have in house dialysis and Amberly is in agreement with this. GARCIA made multiple calls and there are no facilities with in house dialysis in [facility] or [place] ([facility] is out of network with insurance). These are the geographical area's dgt is requesting for placement. GARCIA informed dgt there are some facilities in network with insurance that have in house dialysis. This list will be provided to pt dgt Amberly for review. Amberly is agreeable to this plan. CHING cosmetic sales assistant updated and to email list to Amberly. MARANDA Carmichael
--- NOTE | 2024-06-04 18:13 | NURSING ---
TALKED WITH PT'S AND DAUGHTER RAULITO. AWARE THEY ARE REQUESTING TRANSFER TO [facility] WELL AWARE OF CONCERN FOR ASPIRATION/SAFETY WITH NPO STATUS D/T LETHARGY AFTER SEEN BY ST. DAUGHTER STATES SHE WAS TOLD BY THAT SHE HAD TO FIND THE ACCEPTING PHYSICIAN AT [facility]. DGTR STATES SHE TALKED WITH [facility] AND WAS TOLD DR. WHEELER NEEDS TO CALL THEM TO ARRANGE TRANSFER. GIVEN NUMBER [phone] TO CALL. FAMILY VERBALIZED CONCERN FOR PT'S CONDITION. PT ADVOCATE NUMBER GIVEN.
--- NOTE | 2024-06-04 18:26 | NURSING ---
Went into pt room and was on phone with daughter Ileana and talking about want to get pt transferred out to [facility] for his liver specialist. The family is concerned that the pt is NPO and not getting his liver rejection meds. Daughter called and spoke with a Cindi who is a liver coordinator of library services and told them to have the doctor call [facility] and set up an emergency transport team to come delivery room supervisor the pt. This RN informed Dr. Jessica of the above information. Dr. Jessica had me call the daughter and tell her that she would need to find out who would be the accepting doctor would be and make sure they even have a bed available and get a number for her to call and she would do it. However, at this point there is not a active reason to transfer the pt just because he is NPO and not getting his liver rejection meds per Dr. Jessica. She had me order a GI consult and she was going to call and speak with Dr. Dial about this case as well. This RN informed gin Tejeda that the consult was placed as well. When I informed her of the above she said she will make sure this transfer happens and hung up the phone.
--- NOTE | 2024-06-04 18:33 | NURSING ---
PER PT'S FAMILY [facility] LIVER DOCTOR IS DR. RUT NAJERA OFFICE NUMBER [phone], NUTRITION PROGRAM INSTRUCTOR DR FROST, AND SHUTTLE DRIVER DR GARY. DR. WHEELER UPDATED ON LIVER PHYSICIAN INFORMATION
[2024-06-04 19:17] LABS: Ammonia < 10.0 umol/L (11-32)
[2024-06-04 20:21] LABS: ALB/GLOB Ratio 1.1 RATIO (0.9-2.4); AST(SGOT) 14 U/L (15-37); Alanine Aminotransfer ALT/SGPT 14 U/L (16-61); Albumin, Serum 3.1 g/dL (3.2-5.0); Alkaline Phosphatase 85 U/L (45-117); Anion Gap 10 (5-15); BUN 19 mg/dL (7-18); BUN/Creat Ratio 5.3 RATIO (10-20); Calcium,Total 12.5 mg/dL (8.5-10.1); Chloride 104 mmol/L (98-107); Creatinine, Serum 3.58 mg/dL (0.70-1.30); EST Glomerular Filtration Rate 18 mL/min (>60); Est Glom Filt Rate - Afr Amer 21 mL/min (>60); Globulin 2.7 g/dL (2.2-4.2); Glucose 110 mg/dL (74-106); Potassium 3.6 mmol/L (3.5-5.1); Protein, Total 5.8 g/dL (6.4-8.2); Sodium Level 139 mmol/L (136-145)
[2024-06-04 20:37] VITALS: BP 153/61; PULSE 89; RESP 16; TEMP 36.7; O2SAT 100
[2024-06-04] MEDS: Nystatin Powder 15gm Bottle 1 APPLIC TOPICAL (21:11)
[2024-06-04 22:38] LABS: Bedside Glucose 103 mg/dL (74-106)
[2024-06-05] VITALS (13 sets, daily range): BP systolic 31–188; BP diastolic 64–110; PULSE 76–98; RESP 16–20; TEMP 36.6–36.7; O2SAT 95–100; BMI 25.2; BMI 24.5
[2024-06-05 06:21] LABS: Basophil# 0.04 X10^3/uL; Basophil% 0.7 % (0-1); Eosinophil# 0.11 X10^3/uL; Eosinophils% 1.9 % (0-5); Hematocrit 25.7 % (40-54); Hemoglobin 8.2 g/dL (13.0-16.5); Lymphocyte % 17.2 % (19-41); Mean Corp Hgb Conc 31.9 g/dL (32-36); Mean Corpuscular Hgb 30.6 pg (27.0-32.0); Mean Corpuscular Volume 95.9 fL (80-94); Mean Platelet Vol. 9.9 fl (6.2-12.0); Monocyte# 0.59 X10^3/uL; Monocyte% 10.2 % (0-10); NRBC Flagged by Analyzer 0 % (0-5); Neutrophil # 3.95 X10^3/uL (2.7-7.7); Neutrophil % 68.1 % (47-70); POSITIVE COUNT YES; RBC Distribution Width CV 16.6 % (11.6-14.6); RBC Distribution Width SD 58.2 fl (35.1-43.9); Red Blood Count 2.68 M/mm3 (4.6-6.2); White Blood Count 5.8 K/mm3 (4.4-11.0)
[2024-06-05 06:32] LABS: Differential Indicated SCAN CRITERIA MET
[2024-06-05 07:13] LABS: Anion Gap 10 (5-15); BUN 20 mg/dL (7-18); BUN/Creat Ratio 5.1 RATIO (10-20); Calcium,Total 12.9 mg/dL (8.5-10.1); Chloride 107 mmol/L (98-107); Creatinine, Serum 3.92 mg/dL (0.70-1.30); EST Glomerular Filtration Rate 16 mL/min (>60); Est Glom Filt Rate - Afr Amer 19 mL/min (>60); Estimated Creatinine Clearance 13.79 ml/min; Glucose 102 mg/dL (74-106); Potassium 3.7 mmol/L (3.5-5.1); Sodium Level 141 mmol/L (136-145)
[2024-06-05 07:22] LABS: Differential Comment SCANNED; Platelet Count 102 K/mm3 (150-450)
[2024-06-05] MEDS: 0.9% Normal Saline 1,000 ML IV.SOLN. 1000 ML OPERA.SITE (08:02)
[2024-06-05] MEDS: 0.9% Saline Lock 10 ML Syringe IV ×2 (08:03→11:18)
[2024-06-05] MEDS: PureFlow B 3K Dialysis Soln 1 BAG 6 BAG PF (08:03)
[2024-06-05] MEDS: Epoetin Alfa epbx 10,000 UNIT/ML 10000 UNIT IV (08:17)
--- NOTE | 2024-06-05 10:26 | PCM.PN.REN ---
Subjective Subjective Following for ESRD. The patient is dialyzed today. Patient did well with dialysis without hypotension. He has been sleepy the whole day according to his who is bedside. Objective Data Objective Data Vital Signs: Vital Signs Temp Pulse Resp BP Pulse Ox O2 Del Method 98.1 F 88 16 157/81 H 98 Room Air 06/05/24 03:41 06/05/24 10:00 06/05/24 10:00 06/05/24 10:00 06/05/24 10:00 06/05/24 10:00 Oxygen Delivery Method Room Air Weight: 72.9 kg Body Mass Index (BMI) 25.2 Intake & Output: Intake and Output for Last 24 Hours 06/03/24 06/04/24 06/05/24 23:59 23:59 23:59 Intake Total 450 / 600 300 / 300 Output Total 570 / 570 Balance -120 / 30 300 / 300 Medical Nutrition Assessment Dietitian: Malnutrition Criteria Met Start: 06/04/24 13:41 Freq: Status: Active Protocol: Document 06/04/24 13:41 SB (Rec: 06/04/24 13:41 SB [id number]) Nutrition Malnutrition Evidence of Malnutrition Exists Yes Malnutrition (severe): Chronic Evidenced By Suboptimal Energy Intake ( Severe),Weight Loss (Severe) Clinical Problem Chronic Disease or Condition Related Malnutrition Etiology severe malnutrition related to inadequate oral/energy intake Signs/Symptoms as evidenced by 25% unintentional weight loss x 13 months and PO meeting <75% of estimated nutrition needs x 1 year. Status Active Problem Recommendation Dietitian Recommendations/Changes Adjust to liberal regular diet with no added salt d/t signs and symptoms of malnutrition. Will order 120ml PO Nepro TID with meals. Will adjust ONS, as needed. Will monitor weight, as available. Reivewed and approved by Bobo Izquierdo, MS, RDN, LD. Lab / Micro Data 06/05/24 05:56 06/05/24 05:56 Labs: Laboratory Results - last 24 hr 06/04/24 11:34: POC Glucose 107 H 06/04/24 16:17: POC Glucose 104 06/04/24 18:43: Sodium 139, Potassium 3.6, Chloride 104, Carbon Dioxide 25.0, Anion Gap 10, BUN 19 H, Creatinine 3.58 H, Estim Creat Clear Calc 15.10, Est GFR (MDRD) Af Amer 21 L, Est GFR (MDRD) Non-Af 18 L, BUN/Creatinine Ratio 5.3 L, Glucose 110 H, Calcium 12.5 H, Total Bilirubin 0.70, AST 14 L, ALT 14 L, Alkaline Phosphatase 85, Ammonia < 10.0 L, Total Protein 5.8 L, Albumin 3.1 L, Globulin 2.7, Albumin/Globulin Ratio 1.1 06/04/24 20:32: POC Glucose 103 06/05/24 05:56: WBC 5.8, RBC 2.68 L, Hgb 8.2 L, Hct 25.7 L, MCV 95.9 H, MCH 30.6, MCHC 31.9 L, RDW Std Deviation 58.2 H, RDW Coeff of Ursula 16.6 H, Plt Count 102 L, MPV 9.9, Immature Gran % (Auto) 1.900 H, Neut % (Auto) 68.1, Lymph % (Auto) 17.2 L, Campbell % (Auto) 10.2 H, Eos % (Auto) 1.9, Baso % (Auto) 0.7, Absolute Neuts (auto) 4.0, Absolute Lymphs (auto) 1.00, Nucleated RBC % 0, Differential Comment SCANNED, Sodium 141, Potassium 3.7, Chloride 107, Carbon Dioxide 24.0, Anion Gap 10, BUN 20 H, Creatinine 3.92 H, Estim Creat Clear Calc 13.79, Est GFR (MDRD) Af Amer 19 L, Est GFR (MDRD) Non-Af 16 L, BUN/Creatinine Ratio 5.1 L, Glucose 102, Calcium 12.9 H* Micro: Microbiology 06/01/24 13:16 Urine, Clean Catch Urine Culture - Final Klebsiella pneumoniae sp pneum Physical Exam Narrative Lethargic, no apparent distress S1, S2, RRR Lung sounds clear anteriorly Abdomen soft, nontender No edema Right IJ tunneled hemodialysis catheter dressing clean, dry and intact Right mid arm AV fistula with good thrill and bruit. Sutures intact Assessment & Plan Assessment/Plan (1) ESRD (end stage renal disease) on dialysis: (2) General weakness: (3) Anemia of chronic disease: PLAN: Plan Impression/Plan: The patient is a 79-year-old male with past medical history significant for ESRD who dialyzes at [facility] Saturday. 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 The patient was brought to the emergency room for evaluation of weakness and difficulty standing. He is admitted for evaluation of debility and diarrhea. Continue HD on MWF schedule while he is in the hospital. ESRD Patient undergoing hemodialysis today with fluid removal as patient and BP tolerates. The patient was dialyzed earlier today. He remains hemodynamically stable. Will plan for dialysis again on 06/07/2024 as outpatient dialysis schedule is Saturday. He has been tolerating dialysis relatively well. I do not think encephalopathy is related to ESRD.
--- NOTE | 2024-06-05 10:54 | PN_ITS ---
Subjective Subjective Patient seen and examined. His was by his bedside. He was quite lethargic though he would wake up and communicate. He had no active complaints. was by his bedside. She said she understood he was weak and dying, but felt her children had not come to terms with that, hence their requesting that patient be transferred to [facility]. She is appreciative of the care being given to the patient here. Review of systems is otherwise negative. He has remained hemodynamically stable. Objective Data Objective Data Vital Signs: Vital Signs Temp Pulse Resp BP Pulse Ox O2 Del Method 98.1 F 88 16 144/77 H 99 Room Air 06/05/24 03:41 06/05/24 10:30 06/05/24 10:30 06/05/24 10:30 06/05/24 10:30 06/05/24 10:30 Oxygen Delivery Method Room Air Weight: 160 lb 11.472 oz Body Mass Index (BMI) 25.2 Intake & Output: Intake and Output for Last 24 Hours 06/03/24 06/04/24 06/05/24 23:59 23:59 23:59 Intake Total 450 / 600 300 / 300 Output Total 570 / 570 Balance -120 / 30 300 / 300 Medical Nutrition Assessment Dietitian: Malnutrition Criteria Met Start: 06/04/24 13:41 Freq: Status: Active Protocol: Document 06/04/24 13:41 SB (Rec: 06/04/24 13:41 SB [id number]) Nutrition Malnutrition Evidence of Malnutrition Exists Yes Malnutrition (severe): Chronic Evidenced By Suboptimal Energy Intake ( Severe),Weight Loss (Severe) Clinical Problem Chronic Disease or Condition Related Malnutrition Etiology severe malnutrition related to inadequate oral/energy intake Signs/Symptoms as evidenced by 25% unintentional weight loss x 13 months and PO meeting <75% of estimated nutrition needs x 1 year. Status Active Problem Recommendation Dietitian Recommendations/Changes Adjust to liberal regular diet with no added salt d/t signs and symptoms of malnutrition. Will order 120ml PO Nepro TID with meals. Will adjust ONS, as needed. Will monitor weight, as available. Reivewed and approved by Bobo Izquierdo, MS, RDN, LD. Lab / Micro Data 06/05/24 05:56 06/05/24 05:56 Labs: Laboratory Results - last 24 hr 06/04/24 11:34: POC Glucose 107 H 06/04/24 16:17: POC Glucose 104 06/04/24 18:43: Sodium 139, Potassium 3.6, Chloride 104, Carbon Dioxide 25.0, Anion Gap 10, BUN 19 H, Creatinine 3.58 H, Estim Creat Clear Calc 15.10, Est GFR (MDRD) Af Amer 21 L, Est GFR (MDRD) Non-Af 18 L, BUN/Creatinine Ratio 5.3 L, G lucose 110 H, Calcium 12.5 H, Total Bilirubin 0.70, AST 14 L, ALT 14 L, Alkaline Phosphatase 85, Ammonia < 10.0 L, Total Protein 5.8 L, Albumin 3.1 L, Globulin 2.7, Albumin/Globulin Ratio 1.1 06/04/24 20:32: POC Glucose 103 06/05/24 05:56: WBC 5.8, RBC 2.68 L, Hgb 8.2 L, Hct 25.7 L, MCV 95.9 H, MCH 30.6, MCHC 31.9 L, RDW Std Deviation 58.2 H, RDW Coeff of Ursula 16.6 H, Plt Count 102 L, MPV 9.9, Immature Gran % (Auto) 1.900 H, Neut % (Auto) 68.1, Lymph % (Auto) 17.2 L, Grundy % (Auto) 10.2 H, Eos % (Auto) 1.9, Baso % (Auto) 0.7, Absolute Neuts (auto) 4.0, Absolute Lymphs (auto) 1.00, Nucleated RBC % 0, Differential Comment SCANNED, Sodium 141, Potassium 3.7, Chloride 107, Carbon Dioxide 24.0, Anion Gap 10, BUN 20 H, Creatinine 3.92 H, Estim Creat Clear Calc 13.79, Est GFR (MDRD) Af Amer 19 L, Est GFR (MDRD) Non-Af 16 L, BUN/Creatinine Ratio 5.1 L, Glucose 102, Calcium 12.9 H* Micro: Microbiology 06/01/24 13:16 Urine, Clean Catch Urine Culture - Final Klebsiella pneumoniae sp pneum Physical Exam Const alert Constitutional Narrative: weak and frail General Appearance: cooperative HEENT normocephalic, head/scalp atraumatic and moist oral mucous membranes Eyes PERRL and EOMs intact bilaterally Neck no lymphadenopathy and supple Lymph Lymphatic: no lymphadenopathy noted and no lymphedema noted Resp normal respiratory effort, normal air movement and clear to auscultation bilaterally Resp Narrative: on room air Cardio regular rate, regular rhythm, S1 normal heart sound, S2 normal heart sound and no murmurs GI normal to inspection, nondistended, normoactive bowel sounds, soft to palpation, non-tender and non-distended Extremity normal capillary refill, no clubbing, cyanosis or edema and no calf tenderness Extremity Narrative: dialysis catheter in chest; has AV fistula in LUE with stitches in left inner forearm at site of fistula General Extremity: no tenderness to palpation of joints or extremities Skin General Skin Exam: no breakdown Neuro CN's II-XII intact bilaterally and no focal motor deficits Neuro Narrative: weak, lethargic but answers questions in response to voice. Motor Exam: general weakness Psych Psych Narrative: lethargic Mood & Affect: flat affect Assessment & Plan Assessment/Plan (1) Failure to thrive: (2) General weakness: PLAN: Plan #Debility and weakness due to dehydration from diarrhea * he still feels weak though diarrhea has resolved. * PT.OT on board. Fall precautions. * was concerned about weakness and possible stroke. CT of the brain done did not show any acute intracranial pathology. His symptoms had essentially been present since admission and even before admission. 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 * speech therapy consulted due to difficulty with swallowing. * family requested transfer to [facility] yesterday because they feel he is getting weaker. Patient accepted at [facility] to the hepatology service pending bed availability. * #ESRD: * on hemodialysis MWF. He did not go for dialysis last Saturday due to weakness. * Nephrology on board. * Vascular surgery consulted for removal of sutures for AV fistula created on 05/05/2024 by vascular surgery. Vascular surgery recommends patient follow up in the office for removal of stitches. * #History of alcoholic liver cirrhosis with liver transplant * Follows up at [facility]. Gets monthly blood work to check tacrolimus level. On tacrolimus which is currently on hold due to patient being NPO. * ammonia level is <10, and liver enzymes are not elevated * awaiting transfer to [facility] per family request. #Abnormal pancreatic duct dilatation * CT of the abdomen and pelvis done on admission showed interval worsening of extensive pancreatic ductal dilatation associated with calcifications over the pancreas including within the pancreatic duct and pancreatic atrophy. * MRCP done showed severe dilatation of the pancreatic duct and a trophy of the pancreas with calcifications consistent with component of chronic pancreatitis and no dominant mass. There was dilatation of the common bile duct with focal stricture narrowing and mild intrahepatic biliary dilatation also. * GI consulted; await recs. * awaiting transfer to [facility] #afib: on cardizem #History of heart failure: On torsemide. Also gets periodic dialysis which will help with fluid removal #Hyperlipidemia: On statin #Pancytopenia: * Likely from cirrhosis. Baseline hemoglobin is around 9-9.5. * Platelets are 99 today and WBC is 5. with Hb being 8.4 today. Has improved since yesterday * This is all chronic. Will monitor. #Hypercalcemia: * Calcium is 12.9 today. He is due for dialysis today so this will help with hypercalcemia. * He also will benefit from calcium binders. * Will defer to nephrology. * DVT prophylaxis: SCDs. Start SQ heparin Disposition: * awaiting transfer to [facility] pending bed availability Charges/Coding Visit Charges Inpatient E&M: 41852 Subs Hosp L2
[2024-06-05] MEDS: Heparin 10,000 UNITS/10 ML Vial IV (11:17)
--- NOTE | 2024-06-05 13:07 | EX.PCM.CON.G ---
HPI Consult Data Date of Consult: 06/05/24 HPI Narrative Reason for Consultation: Encephalopathy HPI Narrative: SELVIN SANON, is a 79 M with multiple comorbidities came to ED for feeling very weak with decreased appetite and decreased food and water intake. Patient is accompanied by his and daughter. He had diarrhea for 2 days and diarrhea has stopped still very weak, could not stand up or ambulate. According to his , whenever he tries to stand up or walk, he slid down on his knees. Currently at this time is not able to give any history. He has a past medical history of end-stage liver disease secondary to alcoholic cirrhosis and alcoholic pancreatitis along with end-stage renal disease on hemodialysis and congestive heart failure. He is on Prograf and tacrolimus for his liver transplant which occurred 10 years ago. He has not drank any alcohol since his transplant. As per his daughter he is on the phone he has been getting more more progressively weak and is currently awaiting transfer to [facility]. He has been also developing worsening hypercalcemia. Along with his altered mental status. He has not been able to take his for rejection medicines because he cannot eat or drink anything at this time due to constant sleeping. CT scan of the brain 1. No significant change. 2. Right occipital encephalomalacia. 3. No acute intracranial process. 4. Chronic involutional changes of the brain. CT scan of abdomen pelvis: Interval worsening of extensive pancreatic ductal dilatation associated with calcifications throughout the pancreas including within the pancreatic duct and pancreatic atrophy, consider MRI with contrast and MRCP for cannot exclude an underlying neoplastic process. Bladder wall thickening, may be secondary to a history of cystitis of uncertain chronicity. Pericardial effusion. Small bilateral pleural effusions associated with minimal lower lobe dependent consolidation. Stable bilateral L5 pars defects associated with a stable grade 1 anterior spondylolisthesis of L5 on S1. Atherosclerosis. MRCP: Severe dilatation of the pancreatic duct and atrophy of the pancreas. Calcifications consistent with component of chronic pancreatitis. No dominant mass. Dilatation of the common bile duct with focal stricture and narrowing. Mild intrahepatic biliary dilatation. Pericardial effusion. [facility] Medical History Loss of hearing Wears glasses Wears dentures Anxiety Depression Alcohol use Insulin dependent diabetes mellitus Uses wheelchair Walker as ambulation aid Back pain Dietary restriction History of ulceration Gastric reflux Shortness of breath on exertion History of renal dialysis History of edema History of echocardiogram Cardiology follow-up encounter Arthritis DVT (deep venous thrombosis) TIA (transient ischemic attack) Coronary artery disease Congestive heart failure Cirrhosis Hemochromatosis Non-smoker Hyperlipidemia Hypertension Stroke/cerebrovascular accident Home Medications ?Medication ?Instructions ?Recorded ?Last Taken ?Type aspirin 81 mg tablet 81 mg PO DAILY 08/22/21 06/01/24 History atorvastatin 40 mg tablet 40 mg PO QHS 08/22/21 05/31/24 History sodium bicarbonate 650 mg tablet 650 mg PO TID 08/22/21 06/01/24 History pyridoxine (vitamin B6) 100 mg 100 mg PO DAILY 04/26/23 06/01/24 History tablet (Vitamin B-6) insulin glargine 100 unit/mL (3 4 unit subcut QHS 03/03/24 05/04/24 History mL) subcutaneous pen (Lantus Solostar U-100 Insulin) insulin lispro 100 unit/mL 1 sliding scale dose subcut TID 03/03/24 Unknown History subcutaneous pen (Humalog KwikPen (U-100) Insulin) midodrine 5 mg tablet 5 mg PO BID 03/03/24 06/01/24 History tamsulosin 0.4 mg capsule 0.4 mg PO QHS 03/03/24 05/31/24 History torsemide 20 mg tablet 40 mg PO DAILY 03/03/24 06/01/24 History carvedilol 12.5 mg tablet 12.5 mg PO BID 05/01/24 05/31/24 History clopidogrel 75 mg tablet 75 mg PO DAILY 05/01/24 06/01/24 History diltiazem HCl 240 mg 240 mg PO DAILY 05/01/24 06/01/24 History capsule,extended release 24 hr mycophenolate mofetil 250 mg 500 mg PO BID 05/01/24 06/01/24 History capsule pantoprazole 40 mg tablet,delayed 40 mg PO DAILY 05/01/24 06/01/24 History release sertraline 25 mg tablet 25 mg PO DAILY 05/01/24 06/01/24 History tacrolimus 1 mg capsule, 2 mg PO BID 05/01/24 06/01/24 History immediate-release hydralazine 50 mg tablet 50 mg PO Q12.TCU 06/01/24 06/01/24 History vitamin B complex-vitamin C-folic 1 tab PO DAILY 06/01/24 06/01/24 History acid 0.8 mg tablet (Jie-Anne-Marie) Allergy/AdvReac Type Severity Reaction Status Date / Time No Known Allergies Allergy Verified 06/01/24 12:18 Surgical History History of cardiac catheterization Hx of colonoscopy History of coronary artery stent placement History of embolic filter insertion History of herniorrhaphy History of appendectomy History of cholecystectomy History of liver transplant Social History household members: spouse Smoking Status: Never smoker alcohol intake: never substance use type: does not use ROS ROS Narrative As in HPI Physical Exam Const alert Constitutional Narrative: weak and frail General Appearance: cooperative HEENT normocephalic, head/scalp atraumatic and moist oral mucous membranes Eyes PERRL and EOMs intact bilaterally Neck no lymphadenopathy and supple Lymph Lymphatic: no lymphadenopathy noted and no lymphedema noted Resp normal respiratory effort, normal air movement and clear to auscultation bilaterally Resp Narrative: on room air Cardio regular rate, regular rhythm, S1 normal heart sound, S2 normal heart sound and no murmurs GI normal to inspection, nondistended, normoactive bowel sounds, soft to palpation, non-tender and non-distended Extremity normal capillary refill, no clubbing, cyanosis or edema and no calf tenderness Extremity Narrative: dialysis catheter in chest; has AV fistula in LUE with stitches in left inner forearm at site of fistula General Extremity: no tenderness to palpation of joints or extremities Skin General Skin Exam: no breakdown Neuro CN's II-XII intact bilaterally and no focal motor deficits Neuro Narrative: weak, lethargic but answers questions in response to voice. Motor Exam: general weakness Psych Psych Narrative: lethargic Mood & Affect: flat affect Medical Records Data Medical Nutrition Assessment Dietitian: Malnutrition Criteria Met Start: 06/04/24 13:41 Freq: Status: Active Protocol: Document 06/04/24 13:41 SB (Rec: 06/04/24 13:41 SB [id number]) Nutrition Malnutrition Evidence of Malnutrition Exists Yes Malnutrition (severe): Chronic Evidenced By Suboptimal Energy Intake ( Severe),Weight Loss (Severe) Clinical Problem Chronic Disease or Condition Related Malnutrition Etiology severe malnutrition related to inadequate oral/energy intake Signs/Symptoms as evidenced by 25% unintentional weight loss x 13 months and PO meeting <75% of estimated nutrition needs x 1 year. Status Active Problem Recommendation Dietitian Recommendations/Changes Adjust to liberal regular diet with no added salt d/t signs and symptoms of malnutrition. Will order 120ml PO Nepro TID with meals. Will adjust ONS, as needed. Will monitor weight, as available. Reivewed and approved by Bobo Izquierdo, MS, RDN, LD. Lab / Micro Data 06/05/24 05:56 06/05/24 05:56 Labs: Laboratory Results - last 24 hr 06/04/24 16:17: POC Glucose 104 06/04/24 18:43: Sodium 139, Potassium 3.6, Chloride 104, Carbon Dioxide 25.0, Anion Gap 10, BUN 19 H, Creatinine 3.58 H, Estim Creat Clear Calc 15.10, Est GFR (MDRD) Af Amer 21 L, Est GFR (MDRD) Non-Af 18 L, BUN/Creatinine Ratio 5.3 L, Glucose 110 H, Calcium 12.5 H, Total Bilirubin 0.70, AST 14 L, ALT 14 L, Alkaline Phosphatase 85, Ammonia < 10.0 L, Total Protein 5.8 L, Albumin 3.1 L, Globulin 2.7, Albumin/Globulin Ratio 1.1 06/04/24 20:32: POC Glucose 103 06/05/24 05:56: WBC 5.8, RBC 2.68 L, Hgb 8.2 L, Hct 25.7 L, MCV 95.9 H, MCH 30.6, MCHC 31.9 L, RDW Std Deviation 58.2 H, RDW Coeff of Ursula 16.6 H, Plt Count 102 L, MPV 9.9, Immature Gran % (Auto) 1.900 H, Neut % (Auto) 68.1, Lymph % (Auto) 17.2 L, Steele % (Auto) 10.2 H, Eos % (Auto) 1.9, Baso % (Auto) 0.7, Absolute Neuts (auto) 4.0, Absolute Lymphs (auto) 1.00, Nucleated RBC % 0, Differential Comment SCANNED, Sodium 141, Potassium 3.7, Chloride 107, Carbon Dioxide 24.0, Anion Gap 10, BUN 20 H, Creatinine 3.92 H, Estim Creat Clear Calc 13.79, Est GFR (MDRD) Af Amer 19 L, Est GFR (MDRD) Non-Af 16 L, BUN/Creatinine Ratio 5.1 L, Glucose 102, Calcium 12.9 H* Assessment & Plan Assessment/Plan (1) Failure to thrive: (2) General weakness: PLAN: Plan This is a 79-year-old male being admitted for generalized weakness, fatigue, diarrhea with dehydration Acute encephalopathy. Encephalopathy can occur after liver transplant in a number of ways. Typically posttransplant encephalopathy occurs early in the course. This has been 10 years since he had his liver transplant. Hepatic encephalopathy typically occurs if the patient has a portal vein thrombosis or stenosis at the site of transplant. He does have a history of alcoholism some Warnicke's encephalopathy is also on the differential diagnosis. That may be able to be corrected with administration of the vitamins. He has a significant hypercalcemia that I think is associated with his renal failure which can be treated with calcitonin. I would recommend that in the short-term. He has not shown any signs of rejection at this time. Typically encephalopathy does not occur with low therapeutic levels of tacrolimus or Prograf. I recommend checking therapeutic levels of Prograf and CellCept. Recommendations : -NG tube placement with lactulose administration on a every 4 hours basis -Rectal lactulose 2 to 300 mL x 1 -1 L of normal saline -Check a magnesium, Phos levels -Folic acid 1 mg twice daily -Check tacrolimus and Prograf level -Check ultrasound with Dopplers to look for portal vein thrombosis or stenosis of the surgical site -Consider CVVHD instead of HD -Patient is still scheduled for transfer -Administer calcitonin for hypercalcemia Charges/Coding Visit Charges Inpatient E&M: 58351 Init Hosp L3
[2024-06-05] MEDS: Lactulose 20 GM/30 ML UDC 200 GM RC (13:27)
--- NOTE | 2024-06-05 17:56 | NURSING ---
NG tube attempted to be placed at this time x2. Patient fighting with staff, trying to pull at tube. Pt will not follow commands to swallow when prompted, just continues to yell. Text sent to Dr. Dial.
--- NOTE | 2024-06-05 20:10 | PN.HOSP_ITS ---
Hospitalist Note Discussed patient status with Supervising RN. Called [facility] and updated them on patient status, difficulty with oral intake given encephalopathy, fighting NGT placement, no oral intake x 2 days, unable to give him his antirejection medications and family consideration of taking him out of [facility] AMA and driving him to [facility] ED. They noted unfortunately there are no beds and campus is at capacity. They also noted that even if they leave AMA and present to the ED likely the wait for a bed will be similar. This was related to the electrician supervisor and family still deciding what to do with patient. Offering again to try to place NGT but preference to avoid forcing this given significant distress to patient with attempts and likely would need to be restarted to even keep this down.
[2024-06-05] MEDS: Oxymetazoline 0.05% 1 SPRAY SPRAY.BTL 2 SPRAY NASAL (20:45)
--- NOTE | 2024-06-05 20:45 | NURSING ---
There had been several attempts to place an NG tube during the day due to the patients lethargy and confusion. The patient was not able to take his medications and was not able to swallow food so he was undernourished. During those attempts the patient was extremely agitated and pulled out the NG tube twice after it was inserted. At approximately 2030 during my shift the distilling department supervisor, auxiliary staff I placed an NG tube in the pts left nostril. The patient had not been able to drink, eat or take any oral medications for two days. The patient had a Liver transplant around 3 years ago and due to his inability to to swallow had not received his antirejection medications. The family wanted the patient to also start receiving some kind of nutrition. For all of these reasons the decision was made to place the patient in soft restraints so he could start receiving his antirejection medications, the medications he needed for his plan of care and nutrition.
[2024-06-05] MEDS: Haloperidol Lactate 5 MG/ML Vial 1 MG IV (20:48)
--- NOTE | 2024-06-05 21:20 | RAD_ITS ---
STUDY: X-RAY - ABDOMEN/PELVIS REASON FOR EXAM: Male, 79 years old. NGT -- KUB with both diaphragms for NG/OG Verification TECHNIQUE: KUB COMPARISON: None. FINDINGS: Normal visualized lung bases. Postop changes the upper abdomen bilaterally Mild nonspecific bowel distention. There is no demonstrated free abdominal air. NG tube noted with tip in proximal gastric fundus and should be advanced The visualized liver, spleen and kidneys are grossly normal in size and morphology. Normal soft tissue structures. Degenerative changes of thoracic and lumbar spine. RAD/Abdomen Single View (Portable) IMPRESSION: NG tube placement with tip in proximal gastric fundus and should be advanced. Electronically Signed: Sanju Rosales MD at 21:35 EDT ,
--- NOTE | 2024-06-05 21:51 | MDS.RN ---
This RN called to room to discuss with family their concerns about pt care. Daughter expressed concern about pt not being transferred to [facility] main, no nutrition/hydration, and pt not getting anti-rejection meds. Daughter states she is thinking about signing pt out AMA and getting squad transport to [facility]. This RN notified Dr Street, who called [facility] main transfer line. Pt is still on transfer list, but no beds available at this time. Family notified of this and transfer process explained. Family state understanding. Family voiced concern about NG not being placed. Dr Street notified and orders obtained. This RN inserted #16 NG in left nare with assist of 3 additional staff members. Pt tolerated procedure without incident. Pt immediately reaches for NG tube with hands. The use of restraints explained to and daughter. Both in agreement that restraints should be used to keep pt from pulling NG out, so he can get his medications. Both and daughter express appreciation for care being provided to pt this evening.
--- NOTE | 2024-06-05 23:18 | RAD_ITS ---
EXAM: XR ABDOMEN, 1 VIEW CLINICAL INDICATION: ng placement TECHNIQUE: Frontal supine view of the abdomen/pelvis. COMPARISON: Examination earlier on the same date. FINDINGS: GASTROINTESTINAL TRACT: As best visualized, nonobstructive bowel gas pattern. ORGANS: Normal as visualized. No organomegaly. No abnormal calcifications. BONES/JOINTS: No acute pathology. SOFT TISSUES: Surgical clips in the upper abdomen. VASCULATURE: Atherosclerosis. TUBES, LINES AND DEVICES: The enteric tube tip and side-port are below the GE junction overlying the gastric lumen. Hemodialysis catheter partially visualized. RAD/Abdomen Single View (Portable) IMPRESSION: The enteric tube tip and side-port are below the GE junction overlying the gastric lumen. Electronically Signed: Farhan Gamez DO at 23:44 EDT ,
[2024-06-06] VITALS (13 sets, daily range): BP systolic 146–188; BP diastolic 76–100; PULSE 88–103; RESP 16–18; TEMP 36.5–36.9; O2SAT 95–100
[2024-06-06] MEDS: Menthol/Lanolin/Calamine/Znox 113 GM Tube 1 APPLIC TOPICAL ×3 (00:06→23:29)
[2024-06-06] MEDS: Nystatin Powder 15gm Bottle 1 APPLIC TOPICAL ×3 (00:07→23:29)
[2024-06-06] MEDS: Tacrolimus Anhydrous 1 MG Capsule 2 MG NG ×2 (00:08→08:33)
[2024-06-06] MEDS: Sodium Bicarbonate 650 MG Tablet NG ×4 (00:09→23:59)
[2024-06-06] MEDS: MELATONIN 10 MG TABLET NG ×2 (00:09→23:59)
[2024-06-06] MEDS: Heparin Injection (Vial) 5,000 UNIT/ML VIAL 5000 UNIT SC ×4 (00:09→23:31)
[2024-06-06] MEDS: Lactulose 20 GM/30 ML UDC 30 GM NG ×7 (00:10→23:58)
[2024-06-06] MEDS: Atorvastatin Calcium 40 MG Tablet NG (00:10)
[2024-06-06] MEDS: Carvedilol 12.5 MG Tablet NG ×3 (00:10→23:57)
[2024-06-06] MEDS: hydrALAZINE 50 MG Tablet NG ×3 (00:11→23:57)
[2024-06-06 00:49] LABS: Bedside Glucose 95 mg/dL (74-106)
[2024-06-06 06:41] LABS: Absolute Lymphocyte Count 0.96 X10^3/uL (0.83-4.51); Absolute Neutrophil Count 4.2 X10^3/uL (2.0-7.7); Basophil# 0.03 X10^3/uL; Basophil% 0.5 % (0-1); Eosinophil# 0.06 X10^3/uL; Hemoglobin 8.7 g/dL (13.0-16.5); Lymphocyte # 0.96 X10^3/ul (0.83-4.51); Lymphocyte % 16.1 % (19-41); Mean Corp Hgb Conc 31.1 g/dL (32-36); Mean Corpuscular Hgb 30.2 pg (27.0-32.0); Mean Corpuscular Volume 97.2 fL (80-94); Mean Platelet Vol. 9.6 fl (6.2-12.0); Monocyte# 0.59 X10^3/uL; Monocyte% 9.9 % (0-10); NRBC Flagged by Analyzer 0.3 % (0-5); Neutrophil # 4.19 X10^3/uL (2.7-7.7); Neutrophil % 70.3 % (47-70); Platelet Count 109 K/mm3 (150-450); RBC Distribution Width CV 16.9 % (11.6-14.6); RBC Distribution Width SD 59.7 fl (35.1-43.9); Red Blood Count 2.88 M/mm3 (4.6-6.2)
[2024-06-06 07:01] LABS: Bedside Glucose 117 mg/dL (74-106)
[2024-06-06 07:33] LABS: Anion Gap 11 (5-15); BUN 18 mg/dL (7-18); BUN/Creat Ratio 5.3 RATIO (10-20); Calcium,Total 13.8 mg/dL (8.5-10.1); Chloride 106 mmol/L (98-107); Creatinine, Serum 3.38 mg/dL (0.70-1.30); EST Glomerular Filtration Rate 19 mL/min (>60); Est Glom Filt Rate - Afr Amer 23 mL/min (>60); Estimated Creatinine Clearance 15.99 ml/min; Glucose 116 mg/dL (74-106); Potassium 3.5 mmol/L (3.5-5.1); Sodium Level 140 mmol/L (136-145)
[2024-06-06] MEDS: Sertraline 50 MG Tablet 25 MG NG (08:33)
[2024-06-06] MEDS: Pyridoxine HCl 100 MG Tablet PO (08:34)
[2024-06-06] MEDS: Clopidogrel Bisulfate 75 MG Tablet NG (08:41)
[2024-06-06] MEDS: Ceftriaxone 1 GM/50 ML BAG IV (11:10)
[2024-06-06] MEDS: Lansoprazole 15 MG Capsule.DR 30 MG NG (11:11)
[2024-06-06 11:46] LABS: Bedside Glucose 129 mg/dL (74-106)
[2024-06-06] MEDS: hydrALAZINE 20 MG/ML Vial 10 MG IV (12:08)
--- NOTE | 2024-06-06 12:19 | PN_ITS ---
Subjective Subjective Patient seen and examined. His was by his bedside. Patient is quite lethargic. Unable to do review of systems. had no active concerns. Blood pressure is elevated in the 180s systolic. Objective Data Objective Data Vital Signs: Vital Signs Temp Pulse Resp BP Pulse Ox O2 Del Method 98.1 F 91 18 188/100 H 95 Room Air 06/06/24 08:30 06/06/24 12:08 06/06/24 08:30 06/06/24 12:08 06/06/24 08:30 06/06/24 08:30 Oxygen Delivery Method Room Air Weight: 156 lb 4.924 oz Body Mass Index (BMI) 24.5 Intake & Output: Intake and Output for Last 24 Hours 06/04/24 06/05/24 06/06/24 23:59 23:59 23:59 Intake Total 300 / 300 260 / 260 200 / 200 Output Total 5670 / 5670 Balance 300 / 300 -5410 / -5410 200 / 200 Medical Nutrition Assessment Dietitian: Malnutrition Criteria Met Start: 06/04/24 13:41 Freq: Status: Active Protocol: Document 06/04/24 13:41 SB (Rec: 06/04/24 13:41 SB [id number]) Nutrition Malnutrition Evidence of Malnutrition Exists Yes Malnutrition (severe): Chronic Evidenced By Suboptimal Energy Intake ( Severe),Weight Loss (Severe) Clinical Problem Chronic Disease or Condition Related Malnutrition Etiology severe malnutrition related to inadequate oral/energy intake Signs/Symptoms as evidenced by 25% unintentional weight loss x 13 months and PO meeting <75% of estimated nutrition needs x 1 year. Status Active Problem Recommendation Dietitian Recommendations/Changes Adjust to liberal regular diet with no added salt d/t signs and symptoms of malnutrition. Will order 120ml PO Nepro TID with meals. Will adjust ONS, as needed. Will monitor weight, as available. Reivewed and approved by Bobo Izquierdo, MS, RDN, LD. Lab / Micro Data 06/06/24 05:45 06/06/24 05:45 Labs: Laboratory Results - last 24 hr 06/06/24 00:17: POC Glucose 95 06/06/24 05:45: WBC 6.0, RBC 2.88 L, Hgb 8.7 L, Hct 28.0 L, MCV 97.2 H, MCH 30.2, MCHC 31.1 L, RDW Std Deviation 59.7 H, RDW Coeff of Ursula 16.9 H, Plt Count 109 L, MPV 9.6, Immature Gran % (Auto) 2.200 H, Neut % (Auto) 70.3 H, Lymph % (Auto) 16.1 L, Sevier % (Auto) 9.9, Eos % (Auto) 1.0, Baso % (Auto) 0.5, Absolute Neuts (auto) 4.2, Absolute Lymphs (auto) 0.96, Nucleated RBC % 0.3, Sodium 140, Potassium 3.5, Chloride 106, Carbon Dioxide 23.0, Anion Gap 11, BUN 18, C reatinine 3.38 H, Estim Creat Clear Calc 15.99, Est GFR (MDRD) Af Amer 23 L, Est GFR (MDRD) Non-Af 19 L, BUN/Creatinine Ratio 5.3 L, Glucose 116 H, Calcium 13.8 H* 06/06/24 06:27: POC Glucose 117 H 06/06/24 11:08: POC Glucose 129 H Micro: Microbiology 06/01/24 13:16 Urine, Clean Catch Urine Culture - Final Klebsiella pneumoniae sp pneum Radiography Diagnostic Testing: Radiology Impression KUB X-Ray 06/05/24 21:20 IMPRESSION: NG tube placement with tip in proximal gastric fundus and should be advanced. Electronically Signed: Sanju Rosales MD at 21:35 EDT , KUB X-Ray 06/05/24 23:18 IMPRESSION: The enteric tube tip and side-port are below the GE junction overlying the gastric lumen. Electronically Signed: Farhan Gamez DO at 23:44 EDT , Physical Exam Const Constitutional Narrative: weak and frail Orientation / Consciousness: confused and lethargic HEENT normocephalic, head/scalp atraumatic and moist oral mucous membranes Eyes PERRL and EOMs intact bilaterally Neck no lymphadenopathy and supple Lymph Lymphatic: no lymphadenopathy noted and no lymphedema noted Resp normal respiratory effort, normal air movement and clear to auscultation bilaterally Resp Narrative: on room air Cardio regular rate, regular rhythm, S1 normal heart sound, S2 normal heart sound and no murmurs GI normal to inspection, nondistended, normoactive bowel sounds, soft to palpation, non-tender and non-distended GI Narrative: NG tube in situ Extremity normal capillary refill, no clubbing, cyanosis or edema and no calf tenderness Extremity Narrative: dialysis catheter in chest; has AV fistula in LUE with stitches in left inner forearm at site of fistula General Extremity: no tenderness to palpation of joints or extremities Skin General Skin Exam: no breakdown Neuro Neuro Narrative: weak, lethargic, unable to answer questions in response to voice Motor Exam: strength 5/5 throughout and general weakness Psych Psych Narrative: lethargic Mood & Affect: flat affect Assessment & Plan Assessment/Plan (1) Failure to thrive: (2) General weakness: PLAN: Plan #Debility and weakness due to dehydration from diarrhea * he still feels weak. Diarrhea has resolved. * PT.OT on board. Fall precautions. * was concerned about weakness and possible stroke. CT of the brain done did not show any acute intracranial pathology. His symptoms had essentially been present since admission and even before admission. 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 * speech therapy consulted due to difficulty with swallowing. * family requested transfer to [facility] because they feel he is getting weaker. Patient accepted at [facility] to the hepatology service pending bed availability. * still awaiting transfer to [facility] * #ESRD: * on hemodialysis MWF. * Nephrology on board. * Vascular surgery consulted for removal of sutures for AV fistula created on 05/05/2024 by vascular surgery. Vascular surgery recommends patient follow up in the office for removal of stitches. * #History of alcoholic liver cirrhosis with liver transplant * Follows up at [facility]. Gets monthly blood work to check tacrolimus level. On tacrolimus which is currently on hold due to patient being NPO. * ammonia level is <10, and liver enzymes are not elevated * awaiting transfer to [facility] per family request. * GI on board; started on lactulose per GI. Tacrolimus level also ordered. #Abnormal pancreatic duct dilatation * CT of the abdomen and pelvis done on admission showed interval worsening of extensive pancreatic ductal dilatation associated with calcifications over the pancreas including within the pancreatic duct and pancreatic atrophy. * MRCP done showed severe dilatation of the pancreatic duct and a trophy of the pancreas with calcifications consistent with component of chronic pancreatitis and no dominant mass. There was dilatation of the common bile duct with focal stricture narrowing and mild intrahepatic biliary dilatation also. * GI on board; recommended checking tacrolimus level and Prograf level and check an ultrasound with Dopplers to check for portal vein thrombosis or stenosis of the surgical site * awaiting transfer to [facility] #afib: on cardizem abd carvedilol #History of heart failure: On torsemide. Also gets periodic dialysis which will help with fluid removal #Hypertension: * Blood pressure has been poorly controlled in the 180s systolic. * On midodrine. Will DC midodrine. * Continue hydralazine and carvedilol as well as Cardizem. * He cannot receive these through his NG tube. * IV hydralazine as needed * #Hyperlipidemia: On statin #Pancytopenia: * Likely from cirrhosis. Baseline hemoglobin is around 9-9.5. * This is all chronic. Will monitor. #Hypercalcemia: * Calcium is further elevated at 13.8 today. Will give a dose of calcitonin to help with calcium excretion. Will trend calcium levels. * Unclear about the etiology of this. * Will check PTH as well though ESRD will likely also be contributing he would benefit from calcium * makes urine, so will give a dose of IV lasix 80mg x 1 also to help with calcium excretion via diuresis * DVT prophylaxis: SCDs and heparin Disposition: * still awaiting transfer to [facility] pending bed availability Charges/Coding Visit Charges Inpatient E&M: 99913 Subs Hosp L3
[2024-06-06] MEDS: NEPRO TUBE FEED 1,000 ML 10 ML GT (14:02)
[2024-06-06] MEDS: Calcitonin 400 UNITS/2 ML Vial 200 UNITS IM (14:28)
[2024-06-06] MEDS: Insulin Lispro 100 UNIT/ML INSULN.PEN SC ×2 (17:00→23:30)
[2024-06-06 17:07] LABS: Bedside Glucose 174 mg/dL (74-106)
--- NOTE | 2024-06-06 17:37 | NURSING ---
called [facility] for update on bed transfer. [facility] stated that they are not discharging pt and there is no way to know how long it will be. came to desk upset that pt has not been transferred. explained to that we have no control over when [facility] will have a bed available. stated that there has to be a way that the dr can talk to another dr and get him moved. explained to that the dr at [facility] make the decisions when a pt will be transferred and [facility] don't have ability to get them transferred faster. stated that she is trying to arrange transportation for pt. nursing told her that if she wants to do that it would be up to her, and she could sign ama papers and transport him anytime she would like. stated that she may just have to call her warpman to get things moving faster. nursing told her she can do whatever she feels she needs to do. stated she feels like her is dying and no one doing anything to help him. she stated we did not give any of his medications for 2 days. nursing told her that we placed a tube in his nose so we can now give him his medications. she stated it took you guys 2 days to do that, and if you can't place a tube in a patient maybe you should transfer him somewhere that can do it . nursing stated that we are trying to transfer him, we are just waiting for a bed.
[2024-06-06] MEDS: 0.9% Saline Lock 10 ML Syringe IV (18:22)
[2024-06-06] MEDS: Furosemide 100 MG/10 ML Vial 80 MG IV (18:22)
--- NOTE | 2024-06-06 19:10 | RAD_ITS ---
INDICATION: verify ngt placement EXAMINATION/TECHNIQUE: X-RAY - XR Abdomen 1 View COMPARISON: Prior study dated: 06/05/2024 FINDINGS: BOWEL GAS PATTERN: Non-obstructive. No bowel or stomach distention. Enteric tube terminates in the stomach in good position. FREE AIR: Not assessed on a single supine view. ORGANOMEGALY: Not seen. CALCIFICATIONS: No abnormal calcifications observed. LOWER CHEST: No acute pathology. BONES AND SOFT TISSUES: No acute pathology. RAD/Abdomen Single View (Portable) IMPRESSION: Non-obstructive bowel gas pattern. Enteric tube terminating in the stomach. Electronically Signed: Micah Amos MD at 23:27 EDT ,
--- NOTE | 2024-06-06 19:10 | NURSING ---
1845-entered room and patient's ngt was partially pulled out by about 6 inches. TF paused. NGT re-advanced and KUB ordered to verify placement. TF remains on hold. patient had a small emesis. HOB elevated to 60-70 degrees. remains at bedside.
--- NOTE | 2024-06-06 20:39 | NURSING ---
explained to and dtr that [facility] does not have a bed yet, when [facility] is notified that a bed is available transport will be set up. answered and dtrs questions, deny further needs at this time
--- NOTE | 2024-06-06 22:50 | NURSING ---
called [facility] to check on results due to needing to give meds thru [facility] kohli to reach out for results to be sent
[2024-06-07] MEDS: Atorvastatin Calcium 40 MG Tablet NG ×2 (00:01→22:30)
[2024-06-07] MEDS: 0.9% Saline Lock 10 ML Syringe IV ×2 (00:13→22:47)
[2024-06-07] MEDS: proCHLORPERazine 10 MG/2 ML Vial 5 MG IV ×4 (00:13→22:47)
[2024-06-07] MEDS: Acetaminophen 650 MG/20 ML UDC NG ×3 (00:13→22:45)
[2024-06-07 00:21] LABS: Bedside Glucose 167 mg/dL (74-106)
[2024-06-07 02:05] VITALS: BP 155/75; PULSE 104; RESP 18; TEMP 36.4; O2SAT 100
[2024-06-07] MEDS: Sodium Bicarbonate 650 MG Tablet NG ×3 (06:21→22:28)
[2024-06-07] MEDS: Heparin Injection (Vial) 5,000 UNIT/ML VIAL 5000 UNIT SC ×3 (06:21→22:24)
[2024-06-07] MEDS: Lactulose 20 GM/30 ML UDC 30 GM NG ×5 (06:22→22:28)
[2024-06-07 06:25] VITALS: BP 152/86; PULSE 104; RESP 18; TEMP 36.1; O2SAT 97
[2024-06-07] MEDS: Insulin Lispro 100 UNIT/ML INSULN.PEN SC ×2 (06:47→19:08)
[2024-06-07 07:23] LABS: Bedside Glucose 187 mg/dL (74-106)
[2024-06-07 07:23] LABS: Absolute Lymphocyte Count 0.76 X10^3/uL (0.83-4.51); Absolute Neutrophil Count 4.9 X10^3/uL (2.0-7.7); Basophil# 0.02 X10^3/uL; Basophil% 0.3 % (0-1); Eosinophil# 0.01 X10^3/uL; Eosinophils% 0.2 % (0-5); Hematocrit 28.1 % (40-54); Hemoglobin 8.4 g/dL (13.0-16.5); Lymphocyte # 0.76 X10^3/ul (0.83-4.51); Lymphocyte % 11.9 % (19-41); Mean Corp Hgb Conc 29.9 g/dL (32-36); Mean Corpuscular Hgb 29.7 pg (27.0-32.0); Mean Corpuscular Volume 99.3 fL (80-94); Mean Platelet Vol. 9.4 fl (6.2-12.0); Monocyte# 0.65 X10^3/uL; Monocyte% 10.2 % (0-10); NRBC Flagged by Analyzer 0.3 % (0-5); Neutrophil # 4.86 X10^3/uL (2.7-7.7); Platelet Count 110 K/mm3 (150-450); RBC Distribution Width CV 17.3 % (11.6-14.6); Red Blood Count 2.83 M/mm3 (4.6-6.2); White Blood Count 6.4 K/mm3 (4.4-11.0)
--- NOTE | 2024-06-07 08:06 | PCA ---
call placed to [facility] for bed status, still no bed available at this time. daughter aware.
[2024-06-07 08:31] VITALS: BP 182/85; PULSE 100; RESP 17; TEMP 36.5; O2SAT 98
[2024-06-07] MEDS: Menthol/Lanolin/Calamine/Znox 113 GM Tube 1 APPLIC TOPICAL ×2 (08:34→22:29)
[2024-06-07 08:35] LABS: Anion Gap 9 (5-15); BUN 26 mg/dL (7-18); BUN/Creat Ratio 5.7 RATIO (10-20); Calcium,Total 13.3 mg/dL (8.5-10.1); Chloride 113 mmol/L (98-107); Creatinine, Serum 4.59 mg/dL (0.70-1.30); EST Glomerular Filtration Rate 13 mL/min (>60); Est Glom Filt Rate - Afr Amer 16 mL/min (>60); Estimated Creatinine Clearance 11.78 ml/min; Glucose 203 mg/dL (74-106); Potassium 3.1 mmol/L (3.5-5.1); Sodium Level 147 mmol/L (136-145)
[2024-06-07] MEDS: Clopidogrel Bisulfate 75 MG Tablet NG (08:35)
[2024-06-07] MEDS: dilTIAZem CD 240 MG Capsule PO (08:35)
[2024-06-07] MEDS: Folic Acid/Vitamin B Comp W-C 1 Capsule 1 CAP NG (08:35)
[2024-06-07] MEDS: Carvedilol 12.5 MG Tablet NG ×2 (08:36→22:29)
[2024-06-07] MEDS: Pyridoxine HCl 100 MG Tablet PO (08:36)
[2024-06-07] MEDS: Lansoprazole 15 MG Capsule.DR 30 MG NG (08:38)
[2024-06-07] MEDS: Nystatin Powder 15gm Bottle 1 APPLIC TOPICAL ×2 (08:38→22:24)
[2024-06-07] MEDS: Sertraline 50 MG Tablet 25 MG NG (08:41)
[2024-06-07] MEDS: Tacrolimus Anhydrous 1 MG Capsule 2 MG NG ×3 (08:42→22:29)
[2024-06-07 08:43] VITALS: PULSE 100
[2024-06-07] MEDS: hydrALAZINE 50 MG Tablet NG ×2 (08:43→22:25)
[2024-06-07] MEDS: Ceftriaxone 1 GM/50 ML BAG IV (11:25)
--- NOTE | 2024-06-07 11:30 | PN_ITS ---
Subjective Subjective Patient seen and examined. He remains lethargic and confused. and daughter are by his bedside. Unable to do review of systems as he remains lethargic. and daughter are very upset because they feel we are not expediting his transfer to [facility]. admits she threatened to call their shirt ironer yesterday to expedite patient's transfer to [facility]; she says people can say things when they are upset. Daughter also says she felt that she had to push to get NG tube inserted, and if she had not been here, he would not have had the NG tube inserted. I explained to her that inserting hte NG tube can be a traumatic process for the patient, and so when the nursing staff attempt initially and it is unsuccessful, they wait a bit before it is reinserted. She is also upset because we do not have his tacrolimus level. I explained to her that it is a send out test and may take some days to come back. Daughter states that the [facility] labs ordered in the mornings result in the evenings and she does not understand why the tacrolimus level test is a send out test here. I explained to her that this is not the [facility] and we do not have a liver transplant service and so we do not see a lot of patients on tacrolimus. That is why the test is not done here and it is done as a send out test. then stated that she feels the ED doctors should have told her the patient cannot be managed here at [facility] when they came here initially and should have told them to send him to [facility]. I clarified to patient's that patient came to the ED for diarrhea and dehydration as well as UTI; they are conditions that can be managed here at [facility], though of course they have the right to take the patient to whichever facility they wished to take the patient to. I informed them that nursing had followed up with [facility] to check on bed status, but there were still no beds available. Again, I clarified that we do not have any control over the transfer process at [facility], and we do have to wait for a bed to be available at [facility]. Objective Data Objective Data Vital Signs: Vital Signs Temp Pulse Resp BP Pulse Ox O2 Del Method 97.7 F L 100 17 182/85 H 98 Room Air 06/07/24 08:31 06/07/24 08:43 06/07/24 08:31 06/07/24 08:31 06/07/24 08:31 06/07/24 08:31 Oxygen Delivery Method Room Air Weight: 156 lb 4.924 oz Body Mass Index (BMI) 24.5 Intake & Output: Intake and Output for Last 24 Hours 06/05/24 06/06/24 06/07/24 23:59 23:59 23:59 Intake Total 260 / 260 249.67 / 249.67 724.33 / 724.33 Output Total 5670 / 5670 Balance -5410 / -5410 219.67 / 219.67 724.33 / 724.33 Medical Nutrition Assessment Dietitian: Malnutrition Criteria Met Start: 06/04/24 13:41 Freq: Status: Active Protocol: Document 06/06/24 13:58 RMA (Rec: 06/06/24 13:58 RMA [id number]) Nutrition Malnutrition Evidence of Malnutrition Exists Yes Malnutrition (severe): Chronic Evidenced By Suboptimal Energy Intake ( Severe),Weight Loss (Severe) Intake Problem Inadequate Oral Intake Etiology related to lethargy, confusion and swallowing difficulty Signs/Symptoms as evidenced by NPO Status Active Problem Clinical Problem Chronic Disease or Condition Related Malnutrition Etiology severe protein-calorie malnutrition in the context of chronic disease related to inadequate oral/energy intake and difficulty swallowing Signs/Symptoms as evidenced by BMI 24.5, approximately 25% unintentional weight loss x 13 months, PO meeting < 50% of estimated nutrition needs x 1 year, NPO and need for enteral nutrition support. Status Active Problem Recommendation Dietitian Recommendations/Changes Pt to remain NPO with NG placed for enteral nutrition support; will provide ~100% estimated nutrition needs via NG tube. Consult received to order enteral nutrition support-- Will order TF of Nepro via NG tube to start at 15mL/hr and increase as tolerated by 10mL/ hr Q 6-8 hours to goal rate 45 mL/hr. Flush with 120mL water Q 4 hours. TF at goal rate along with free water flushes will provide 1912 kcal, 87.5 gm pro and 1505 mL/ free water per day. Will adjust enteral nutrition support and flushes as needed. PO nutrition as tolerated if indicated otherwise provide all nutrition via NG tube to meet ~100% estimated nutrition needs. Lab / Micro Data 06/07/24 06:55 06/07/24 06:55 Labs: Laboratory Results - last 24 hr 06/06/24 05:45: PTH Intact 228.0 H 06/06/24 11:08: POC Glucose 129 H 06/06/24 16:49: POC Glucose 174 H 06/06/24 23:27: POC Glucose 167 H 06/07/24 06:43: POC Glucose 187 H 06/07/24 06:55: WBC 6.4, RBC 2.83 L, Hgb 8.4 L, Hct 28.1 L, MCV 99.3 H, MCH 29.7, MCHC 29.9 L, RDW Std Deviation 62.0 H, RDW Coeff of Ursula 17.3 H, Plt Count 110 L, MPV 9.4, Immature Gran % (Auto) 1.400 H, Neut % (Auto) 76.0 H, Lymph % (Auto) 11.9 L, [place] % (Auto) 10.2 H, Eos % (Auto) 0.2, Baso % (Auto) 0.3, Absolute Neuts (auto) 4.9, Absolute Lymphs (auto) 0.76 L, Nucleated RBC % 0.3, S odium 147 H, Potassium 3.1 L, Chloride 113 H, Carbon Dioxide 24.0, Anion Gap 9, BUN 26 H, Creatinine 4.59 H, Estim Creat Clear Calc 11.78, Est GFR (MDRD) Af Amer 16 L, Est GFR (MDRD) Non-Af 13 L, BUN/Creatinine Ratio 5.7 L, Glucose 203 H , Calcium 13.3 H* Micro: Microbiology 06/01/24 13:16 Urine, Clean Catch Urine Culture - Final Klebsiella pneumoniae sp pneum Radiography Diagnostic Testing: Radiology Impression KUB X-Ray 06/06/24 19:10 IMPRESSION: Non-obstructive bowel gas pattern. Enteric tube terminating in the stomach. Electronically Signed: Micah Amos MD at 23:27 EDT , Physical Exam Const alert Constitutional Narrative: weak and frail General Appearance: cooperative Orientation / Consciousness: confused and lethargic HEENT normocephalic, head/scalp atraumatic and moist oral mucous membranes Eyes PERRL and EOMs intact bilaterally Neck no lymphadenopathy and supple Lymph Lymphatic: no lymphadenopathy noted and no lymphedema noted Resp normal respiratory effort, normal air movement and clear to auscultation bilaterally Resp Narrative: on room air Cardio regular rate, regular rhythm, S1 normal heart sound, S2 normal heart sound and no murmurs GI normal to inspection, nondistended, normoactive bowel sounds, soft to palpation and non-tender GI Narrative: NG tube in situ Extremity normal capillary refill, no clubbing, cyanosis or edema and no calf tenderness Extremity Narrative: dialysis catheter in chest; has AV fistula in LUE with stitches in left inner forearm at site of fistula General Extremity: no tenderness to palpation of joints or extremities Skin General Skin Exam: no breakdown Neuro Neuro Narrative: weak, lethargic,only mumbles in reqponse to questoms/ Motor Exam: strength 5/5 throughout and general weakness Psych Psych Narrative: lethargic Assessment & Plan Assessment/Plan (1) Failure to thrive: (2) General weakness: PLAN: Plan #Debility and weakness with acute encephalopathy due to dehydration from diarrhea * he started having diarrhea again yesterday'; however he has been started on tube feeds so this may be contributing. * PT.OT on board. Fall precautions. * was concerned about weakness and possible stroke. CT of the brain done did not show any acute intracranial pathology. His symptoms had essentially been present since admission and even before admission. 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 * speech therapy consulted due to difficulty with swallowing. * patient has continued to deteriorate. has said she understands patient is dying, but her children have not come round to accepting that fact. * family requested transfer to [facility] because they feel he is getting weaker and that he is not getting the care he needs here. They want him transferred to [facility] liver service. * Patient accepted at [facility] to the hepatology service pending bed availability. * still awaiting transfer to [facility] * #ESRD: * on hemodialysis MWF. * Nephrology on board. * Vascular surgery consulted for removal of sutures for AV fistula created on 05/05/2024 by vascular surgery. Vascular surgery recommends patient follow up in the office for removal of stitches. * #Hypernatremia and hypokalemia * This is likely due to the ESRD. Will replace potassium today. Hyper natremia should resolve with dialysis * #History of alcoholic liver cirrhosis with liver transplant * Follows up at [facility]. Gets monthly blood work to check tacrolimus level. On tacrolimus which is currently on hold due to patient being NPO. * ammonia level is <10, and liver enzymes are not elevated * awaiting transfer to [facility] per family request. * GI on board; started on lactulose per GI. Tacrolimus level also ordered and pending. Family angry that the tacrolimus level is pending nad is a sendout test. Family counseled that it will take a few days for the levels to come back #Abnormal pancreatic duct dilatation * CT of the abdomen and pelvis done on admission showed interval worsening of extensive pancreatic ductal dilatation associated with calcifications over the pancreas including within the pancreatic duct and pancreatic atrophy. * MRCP done showed severe dilatation of the pancreatic duct and a trophy of the pancreas with calcifications consistent with component of chronic pancreatitis and no dominant mass. There was dilatation of the common bile duct with focal stricture narrowing and mild intrahepatic biliary dilatation also. * GI on board; recommended checking tacrolimus level and Prograf level and check an ultrasound with Dopplers to check for portal vein thrombosis or stenosis of the surgical site * awaiting transfer to [facility] #afib: on cardizem abd carvedilol #History of heart failure: On torsemide. Also gets periodic dialysis which will help with fluid removal #Hypertension: * Blood pressure has been poorly controlled in the 180s systolic. * On midodrine. Midodrine dc'd today. * Continue hydralazine and carvedilol as well as Cardizem. * IV hydralazine as needed * #Dysphagia due to acute encephalopathy * NG tube inserted and patient now on tube feeds. * Nutrition on board * #Hyperlipidemia: On statin #Pancytopenia: * Likely from cirrhosis. Baseline hemoglobin is around 9-9.5. Hb today is 8.4. Will monitor closely. * #Hypercalcemia: * calcium still elevated at 13.3 today. Slightly down from 13.8 yesterday * will give another dose of calcitonin as well as IV lasix. Will hold off on IVF due to patient being ESRD. * Discussed with Dr Tay of nephrology; she says he will be dialysed with a low calcium bath tomorrow. He will benefit from calcium binders also; will defer to nephrology about that. The hypercalcemia may be contributing to his lethargy also; dialysis will definitely help with this. * * DVT prophylaxis: SCDs and heparin Disposition: * still awaiting transfer to [facility] pending bed availability * Patient advocate on board also. Charges/Coding Visit Charges Inpatient E&M: 56767 Subs Hosp L3
[2024-06-07 12:57] LABS: Bedside Glucose 137 mg/dL (74-106)
[2024-06-07] MEDS: Furosemide 100 MG/10 ML Vial 80 MG IV (14:47)
[2024-06-07] MEDS: Potassium Chloride Oral Soln 20 MEQ/15 ML UDC 40 MEQ NG (14:54)
[2024-06-07 15:21] VITALS: BP 143/71; PULSE 92; RESP 18; TEMP 36.2; O2SAT 100
--- NOTE | 2024-06-07 16:19 | PAT.ANE_ITS ---
Non-invasive Procedural Forms Builder guitar instructor: Yes Additional training and development assistant?: Yes Additional training and development assistant?: Yes Additional training and development assistant?: Yes Complications Complications: Yes Complication Details: COMP TEST
--- NOTE | 2024-06-07 16:19 | PAT.ANESEVAL ---
Non-invasive Procedural Pediatric Dermatologist quality control associate: Yes Additional miner assistant?: Yes Additional miner assistant?: Yes Additional miner assistant?: Yes Complications Complications: Yes Complication Details: COMP TEST
[2024-06-07] MEDS: Calcitonin 400 UNITS/2 ML Vial IM (18:54)
[2024-06-07 19:26] LABS: Bedside Glucose 211 mg/dL (74-106)
[2024-06-07 22:25] VITALS: BP 160/87; PULSE 95; PULSE 96; RESP 18; TEMP 37.1; O2SAT 100
[2024-06-07] MEDS: MELATONIN 10 MG TABLET NG (22:29)
--- NOTE | 2024-06-07 22:45 | PAT.ANE_ITS ---
Non-invasive Procedural Digester Cook lighting engineering technician: Yes Additional activities assistant?: Yes Additional activities assistant?: Yes Additional activities assistant?: Yes Vaginal Delivery Vaginal Delivery Information Procedure Performed: Vacuum Assisted Vaginal Delivery and Shoulder Dystocia Maneuvers Drain(s): Other Findings Specimen collected: Yes Digester Cook lighting engineering technician: Yes Additional activities assistant?: Yes Additional activities assistant?: Yes Additional activities assistant?: Yes
--- NOTE | 2024-06-07 22:45 | PAT.ANESEVAL ---
Non-invasive Procedural Spray Technician ramp service employee: Yes Additional food and beverage assistant manager?: Yes Additional food and beverage assistant manager?: Yes Additional food and beverage assistant manager?: Yes Vaginal Delivery Vaginal Delivery Information Procedure Performed: Vacuum Assisted Vaginal Delivery and Shoulder Dystocia Maneuvers Drain(s): Other Findings Specimen collected: Yes Spray Technician ramp service employee: Yes Additional food and beverage assistant manager?: Yes Additional food and beverage assistant manager?: Yes Additional food and beverage assistant manager?: Yes
[2024-06-07 23:28] LABS: Bedside Glucose 118 mg/dL (74-106)
[2024-06-08] VITALS (22 sets, daily range): BP systolic 3–248; BP diastolic 30–101; PULSE 76–96; RESP 12–18; TEMP 36.1–37.1; O2SAT 93–100; BMI 24.5; BMI 24.0; BMI 22.6
[2024-06-08] MEDS: 0.9% Saline Lock 10 ML Syringe IV ×2 (05:25→14:32)
[2024-06-08] MEDS: proCHLORPERazine 10 MG/2 ML Vial 5 MG IV (05:25)
[2024-06-08] MEDS: Acetaminophen 650 MG/20 ML UDC NG (05:25)
[2024-06-08] MEDS: Lactulose 20 GM/30 ML UDC 30 GM NG ×4 (05:25→22:20)
[2024-06-08] MEDS: Heparin Injection (Vial) 5,000 UNIT/ML VIAL 5000 UNIT SC ×3 (05:26→23:03)
[2024-06-08] MEDS: Insulin Lispro 100 UNIT/ML INSULN.PEN SC ×4 (05:27→23:41)
[2024-06-08] MEDS: Sodium Bicarbonate 650 MG Tablet NG ×3 (05:27→22:24)
[2024-06-08 05:57] LABS: Bedside Glucose 198 mg/dL (74-106)
--- NOTE | 2024-06-08 07:03 | WOUNDNOTE ---
Was consulted on patient d/t sutures to R AC from fistula placement. Pt is being followed by Vascular surgery who had placed the sutures. in the note from [facility], the plan is for suture removal tomorrow 06/09/24 per their services. no need for wound care at this time.
[2024-06-08 07:22] LABS: Absolute Lymphocyte Count 0.95 X10^3/uL (0.83-4.51); Absolute Neutrophil Count 5.8 X10^3/uL (2.0-7.7); Basophil# 0.04 X10^3/uL; Basophil% 0.5 % (0-1); Eosinophil# 0.03 X10^3/uL; Eosinophils% 0.4 % (0-5); Hematocrit 28.5 % (40-54); Hemoglobin 8.8 g/dL (13.0-16.5); Lymphocyte # 0.95 X10^3/ul (0.83-4.51); Lymphocyte % 12.3 % (19-41); Mean Corp Hgb Conc 30.9 g/dL (32-36); Mean Corpuscular Hgb 30.4 pg (27.0-32.0); Mean Corpuscular Volume 98.6 fL (80-94); Mean Platelet Vol. 9.1 fl (6.2-12.0); Monocyte# 0.74 X10^3/uL; Monocyte% 9.6 % (0-10); NRBC Flagged by Analyzer 0.4 % (0-5); Neutrophil # 5.79 X10^3/uL (2.7-7.7); Neutrophil % 75.1 % (47-70); Platelet Count 120 K/mm3 (150-450); RBC Distribution Width CV 18.2 % (11.6-14.6); RBC Distribution Width SD 62.8 fl (35.1-43.9); Red Blood Count 2.89 M/mm3 (4.6-6.2); White Blood Count 7.7 K/mm3 (4.4-11.0)
[2024-06-08 08:01] LABS: Anion Gap 8 (5-15); BUN 30 mg/dL (7-18); BUN/Creat Ratio 5.8 RATIO (10-20); Chloride 117 mmol/L (98-107); Creatinine, Serum 5.18 mg/dL (0.70-1.30); EST Glomerular Filtration Rate 12 mL/min (>60); Est Glom Filt Rate - Afr Amer 14 mL/min (>60); Estimated Creatinine Clearance 10.43 ml/min; Glucose 207 mg/dL (74-106); Potassium 3.1 mmol/L (3.5-5.1); Sodium Level 151 mmol/L (136-145)
--- NOTE | 2024-06-08 09:37 | PN_ITS ---
Progress Note have been notified about high ca. upto 14 today. will plan for HD 5 hours today. we have only one ca bath 3 calcium bath. should correct with HD somewhat. PTH 253. will have to call [facility] for baseline PTH values. will send SPEP, 25 OH vit D and 1,25 OH vit D. dw Dr Lopez. may need denosumab if calcium does not improve. will check with pharmacy about availability. pending transfer to [facility]
[2024-06-08 10:19] LABS: Vitamin D,25 Hydroxy 78.6 ng/mL
--- NOTE | 2024-06-08 10:35 | CT_ITS ---
EXAM: CT CHEST WITHOUT INTRAVENOUS CONTRAST CLINICAL INDICATION: hypercalcemia TECHNIQUE: Helically acquired images were obtained of the chest without intravenous contrast. This CT exam was performed using one or more of the following dose reduction techniques: automated exposure control, adjustment of the mA and/or kV according to patient size, and/or use of iterative reconstruction technique. COMPARISON: No relevant prior studies available. FINDINGS: LUNGS AND PLEURAL SPACES: No pulmonary consolidation. Minor atelectatic changes at the lung bases. No mass. No pleural effusion or thickening. No pneumothorax. HEART: Mild cardiomegaly. Coronary artery stents noted. Moderate size pericardial effusion. MEDIASTINUM: Normal. No mediastinal or hilar adenopathy. Esophagus is unremarkable. No hiatal hernia. BONES/JOINTS: No suspicious lytic or blastic abnormality. VASCULATURE: Normal. No aortic aneurysm. TUBES, LINES AND DEVICES: Right IJ dialysis catheter tip extends into the right atrium. Enteric tube extends into the stomach. CT/Chest without Contrast IMPRESSION: 1. Cardiomegaly. 2. Moderate-sized pericardial effusion. Electronically Signed: Alexx Mitchell MD at 16:14 EDT ,
[2024-06-08 10:38] LABS: Phosphorus 2.9 mg/dL (2.5-4.9)
--- NOTE | 2024-06-08 10:58 | PCM.PN.REN ---
Subjective Subjective Patient seen and examined on hemodialysis this morning. Confused. Objective Data Objective Data Vital Signs: Vital Signs Temp Pulse Resp BP Pulse Ox O2 Del Method 97.3 F L 91 12 112/65 97 Room Air 06/08/24 10:45 06/08/24 10:45 06/08/24 10:45 06/08/24 10:45 06/08/24 10:45 06/08/24 10:45 Oxygen Delivery Method Room Air Weight: 70.9 kg Body Mass Index (BMI) 24.5 Intake & Output: Intake and Output for Last 24 Hours 06/06/24 06/07/24 06/08/24 23:59 23:59 23:59 Intake Total 249.67 / 249.67 2386.66 / 2386.66 526.75 / 526.75 Output Total 30 / 30 Balance 219.67 / 219.67 2386.66 / 2386.66 526.75 / 526.75 Medical Nutrition Assessment Dietitian: Malnutrition Criteria Met Start: 06/04/24 13:41 Freq: Status: Active Protocol: Document 06/07/24 15:56 RMA (Rec: 06/07/24 15:56 RMA [id number]) Nutrition Malnutrition Evidence of Malnutrition Exists Yes Malnutrition (severe): Chronic Evidenced By Suboptimal Energy Intake ( Severe),Weight Loss (Severe) Intake Problem Inadequate Oral Intake Etiology related to lethargy, confusion and swallowing difficulty Signs/Symptoms as evidenced by NPO and need for enteral nutrition support Status Active Problem Clinical Problem Chronic Disease or Condition Related Malnutrition Etiology severe protein-calorie malnutrition in the context of chronic disease related to inadequate oral/energy intake and difficulty swallowing Signs/Symptoms as evidenced by BMI 24.5, approximately 25% unintentional weight loss x 13 months, PO meeting < 50% of estimated nutrition needs x 1 year, NPO and need for enteral nutrition support. Status Active Problem Recommendation Dietitian Recommendations/Changes Pt to remain NPO with NG placed for enteral nutrition support; will provide ~100% estimated nutrition needs via NG tube. Will continue TF of Nepro via NG tube to start at 15mL/hr and increase as tolerated by 10mL/hr Q 6-8 hours to goal rate 45 mL/hr. Flush with 120mL water Q 4 hours. TF at goal rate along with free water flushes will provide 1912 kcal, 87.5 gm pro and 1505 mL/ free water per day. Will adjust enteral nutrition support and flushes as needed. PO nutrition as tolerated if indicated otherwise provide all nutrition via NG tube to meet ~100% estimated nutrition needs. Lab / Micro Data 06/08/24 06:09 06/08/24 06:09 Labs: Laboratory Results - last 24 hr 06/07/24 11:19: POC Glucose 137 H 06/07/24 18:57: POC Glucose 211 H 06/07/24 22:32: POC Glucose 118 H 06/08/24 05:24: POC Glucose 198 H 06/08/24 06:09: WBC 7.7, RBC 2.89 L, Hgb 8.8 L, Hct 28.5 L, MCV 98.6 H, MCH 30.4, MCHC 30.9 L, RDW Std Deviation 62.8 H, RDW Coeff of Ursula 18.2 H, Plt Count 120 L, MPV 9.1, Immature Gran % (Auto) 2.100 H, Neut % (Auto) 75.1 H, Lymph % (Auto) 12.3 L, [place] % (Auto) 9.6, Eos % (Auto) 0.4, Baso % (Auto) 0.5, Absolute Neuts (auto) 5.8, Absolute Lymphs (auto) 0.95, Nucleated RBC % 0.4, Sodium 151 H, Potassium 3.1 L, Chloride 117 H, Carbon Dioxide 26.0, Anion Gap 8, BUN 30 H, Creatinine 5.18 H, Estim Creat Clear Calc 10.43, Est GFR (MDRD) Af Amer 14 L, Est GFR (MDRD) Non-Af 12 L, BUN/Creatinine Ratio 5.8 L, Glucose 207 H, Calcium 14.0 H*, Phosphorus 2.9, Magnesium 3.0 H, Vitamin D 25-Hydroxy 78.6 Micro: Microbiology 06/01/24 13:16 Urine, Clean Catch Urine Culture - Final Klebsiella pneumoniae sp pneum Physical Exam Narrative Lethargic, no apparent distress S1, S2, RRR Lung sounds clear anteriorly Abdomen soft, nontender No edema Right IJ tunneled hemodialysis catheter dressing clean, dry and intact Right mid arm AV fistula with good thrill and bruit. Sutures intact Assessment & Plan Assessment/Plan (1) ESRD (end stage renal disease) on dialysis: (2) General weakness: (3) Anemia of chronic disease: PLAN: Plan Impression/Plan: The patient is a 79-year-old male with past medical history significant for ESRD who dialyzes at [facility] [place] Saturday. 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 The patient was brought to the emergency room for evaluation of weakness and difficulty standing. He is admitted for evaluation of debility and diarrhea. Continue HD on MWF schedule while he is in the hospital. - ESRD on HD MWF; Patient undergoing hemodialysis today with fluid removal as patient and BP tolerates. Patient will dialyze 5 hours today. He remains hemodynamically stable. He has been tolerating dialysis relatively well with fluid removal. Outpatient edw 73.8kg. Patient will have new lowered edw. - anemia of chronic disease; will receive SERVANDO with HD today - hypercalcemia; calcium trending up, 14.0 today. Patient will dialyze over 5 hours today on 3.0 Calcium bath. Patient is not on any calcium based binders. Reviewed PTH/Calcium levels from outpatient HD center: Apr 2024 PTH 254/Corrected Calcium 10.0 (05/08) and 10.4 (05/01); March 2024 PTH 254/ Corrected Ca 9.9, Phosphorus 3.9. 25 OH Vit D 78.6. Pending 1,25 Vit D, SPEP. Patient received calcitonin and IV lasix. CT chest ordered. - hypernatremia; Na 151 today. Patient has been NPO. started nepro TF via NGT and free water flushes every 4 hours - history ESLD s/p liver transplant; awaiting bed at [facility] [place] Tacrolimus level pending
--- NOTE | 2024-06-08 11:04 | PCM.PN.HOSP ---
Reason for Visit Reason for Visit: Generalized weakness Subjective Subjective Patient is a 79-year-old white male who presented to the emergency department at [facility] on 06/08/2020 for due to generalized weakness, decreasing appetite and decreased food and water intake. The patient evidently had about 2 days of diarrhea prior to presentation and then it had stopped but he was still extremely weak and could not stand up or ambulate. His reported on presentation that whenever she tried to stand him up or walk he slid down to his knees. He has a known history of a liver transplant in 2007 and is currently dialysis dependent since September 2023. Vital signs on presentation showed a temperature of 96.5, heart rate 74, respiratory 18, blood pressure was 189/104 and pulse ox was 98% on room air. Vital signs on presentation showed a white count of 3.9, hemoglobin of 8.8 which appears to be close to his baseline, platelet count of 86,000 and normal differential. Coags were unremarkable. Chemistry panel on admission showed normal sodium and potassium, normal bicarb, BUN of 25 and a serum creatinine of 5.21 which is consistent with his baseline being dialysis dependent, hypercalcemia with a calcium of 11.3 and a normal troponin at 30. TSH was within normal limits. We did obtain a intact PTH and was found to be 228 but baseline is unclear and we were waiting from lab from his outpatient dialysis unit. He has had worsening confusion since he has been here and his calcium has been trending up. Calcium is currently up to 14.0. The case was discussed with nephrology and they feel that dialysis should bring it back down to the [address] of the abdomen pelvis was negative for any type of malignancy that may cause hypercalcemia. CT of the chest was performed and again was negative for any type of malignancy that could cause hypercalcemia. It did show abnormal dilation of the pancreatic duct and an MRCP was performed which showed severe dilation of the pancreatic duct and atrophy of the pancreas with calcifications. GI was consulted and they feel that his pancreatic diet elation is related to his chronic pancreatitis with an atrophic pancreas and no further workup was recommended at this time. He was found to have a moderate pericardial effusion on CT so an echocardiogram has been ordered and pending. I do suspect this may be an overcall and he likely has a minimal to mild pericardial effusion with his history of renal dysfunction. He has been on medication to bring down his calcium however this has not been working. Nephrology discussed the possibility of giving him denosumab with pharmacy however we are unable to obtain this here. Given his altered mental status and NG tube was placed via Dobbhoff for nutrition as p.o. intake was not a possibility at this time. Given his history of transplant and lack of improvement on 06/05/2024 family requested transfer to [facility]. Tacrolimus level is pending. Patient remains with altered mentation and marked confusion likely related to his acute electrolyte abnormalities. Discussed with nephrology and they do agree with transfer. I called [facility] and their census is at capacity and they will let us know when they have a bed available. This was explained to family and they were appreciative of his care here thus far and understand the complexity of getting him up to [place]. We are still waiting on his tacrolimus level. Objective Data Objective Data Vital Signs: Vital Signs Temp Pulse Resp BP Pulse Ox O2 Del Method 97.3 F L 91 12 112/65 97 Room Air 06/08/24 10:45 06/08/24 10:45 06/08/24 10:45 06/08/24 10:45 06/08/24 10:45 06/08/24 10:45 Oxygen Delivery Method Room Air Weight: 70.9 kg Body Mass Index (BMI) 24.5 Intake & Output: Intake and Output for Last 24 Hours 06/06/24 06/07/24 06/08/24 23:59 23:59 23:59 Intake Total 249.67 / 249.67 2386.66 / 2386.66 526.75 / 526.75 Output Total 30 / 30 Balance 219.67 / 219.67 2386.66 / 2386.66 526.75 / 526.75 Medical Nutrition Assessment Dietitian: Malnutrition Criteria Met Start: 06/04/24 13:41 Freq: Status: Active Protocol: Document 06/07/24 15:56 RMA (Rec: 06/07/24 15:56 RMA [id number]) Nutrition Malnutrition Evidence of Malnutrition Exists Yes Malnutrition (severe): Chronic Evidenced By Suboptimal Energy Intake ( Severe),Weight Loss (Severe) Intake Problem Inadequate Oral Intake Etiology related to lethargy, confusion and swallowing difficulty Signs/Symptoms as evidenced by NPO and need for enteral nutrition support Status Active Problem Clinical Problem Chronic Disease or Condition Related Malnutrition Etiology severe protein-calorie malnutrition in the context of chronic disease related to inadequate oral/energy intake and difficulty swallowing Signs/Symptoms as evidenced by BMI 24.5, approximately 25% unintentional weight loss x 13 months, PO meeting < 50% of estimated nutrition needs x 1 year, NPO and need for enteral nutrition support. Status Active Problem Recommendation Dietitian Recommendations/Changes Pt to remain NPO with NG placed for enteral nutrition support; will provide ~100% estimated nutrition needs via NG tube. Will continue TF of Nepro via NG tube to start at 15mL/hr and increase as tolerated by 10mL/hr Q 6-8 hours to goal rate 45 mL/hr. Flush with 120mL water Q 4 hours. TF at goal rate along with free water flushes will provide 1912 kcal, 87.5 gm pro and 1505 mL/ free water per day. Will adjust enteral nutrition support and flushes as needed. PO nutrition as tolerated if indicated otherwise provide all nutrition via NG tube to meet ~100% estimated nutrition needs. Lab / Micro Data 06/08/24 06:09 06/08/24 06:09 Labs: Laboratory Results - last 24 hr 06/07/24 11:19: POC Glucose 137 H 06/07/24 18:57: POC Glucose 211 H 06/07/24 22:32: POC Glucose 118 H 06/08/24 05:24: POC Glucose 198 H 06/08/24 06:09: WBC 7.7, RBC 2.89 L, Hgb 8.8 L, Hct 28.5 L, MCV 98.6 H, MCH 30.4, MCHC 30.9 L, RDW Std Deviation 62.8 H, RDW Coeff of Ursula 18.2 H, Plt Count 120 L, MPV 9.1, Immature Gran % (Auto) 2.100 H, Neut % (Auto) 75.1 H, Lymph % (Auto) 12.3 L, [place] % (Auto) 9.6, Eos % (Auto) 0.4, Baso % (Auto) 0.5, Absolute Neuts (auto) 5.8, Absolute Lymphs (auto) 0.95, Nucleated RBC % 0.4, Sodium 151 H, Potassium 3.1 L, Chloride 117 H, Carbon Dioxide 26.0, Anion Gap 8, BUN 30 H, Creatinine 5.18 H, Estim Creat Clear Calc 10.43, Est GFR (MDRD) Af Amer 14 L, Est GFR (MDRD) Non-Af 12 L, BUN/Creatinine Ratio 5.8 L, Glucose 207 H, Calcium 14.0 H*, Phosphorus 2.9, Magnesium 3.0 H, Vitamin D 25-Hydroxy 78.6 Micro: Microbiology 06/01/24 13:16 Urine, Clean Catch Urine Culture - Final Klebsiella pneumoniae sp pneum Physical Exam Const alert and average body habitus; Negative for healthy appearing Constitutional Narrative: Markedly confused but alert, older, white male, sitting up in bed, currently on dialysis, does not consistently follow commands, at bedside, in restraints due to dialysis catheter in right chest and Dobbhoff in nares, does not appear toxic or uncomfortable at this time, dialysis nurse at bedside HEENT head/scalp atraumatic and moist oral mucous membranes HEENT Narrative: Dobbhoff in place Head and Scalp: normocephalic Resp normal respiratory effort, no retractions, no use of accessory muscles and clear to auscultation bilaterally Auscultation: Negative for rales, rhonchi or wheezes Cardio regular rate, regular rhythm, S1 normal heart sound, S2 normal heart sound, no murmurs, no rub, no gallops and no clicks GI normal to inspection, nondistended, normoactive bowel sounds, soft to palpation and non-tender Extremity no clubbing, cyanosis or edema Extremity Narrative: Pedal pulses and radial pulses are 2+ Skin Skin Narrative: Dialysis catheter in right chest-clean dry and intact and currently getting dialysis Neuro No oriented x3 and moves all extremities Neuro Narrative: Spontaneously moves all extremities but does not follow commands Psych Psych Narrative: Unable to assess due to mental status alteration Assessment & Plan Assessment/Plan (1) Failure to thrive: (2) General weakness: (3) Hypercalcemia: (4) Toxic metabolic encephalopathy: PLAN: Plan Generalized weakness/debility -Suspect multifactorial -CT of the brain unremarkable for any acute findings -Continue PT/OT/speech therapy -Currently unable to eat so Dobbhoff placed -Continue tube feed -Tacrolimus level is pending -Plan is for transfer to [facility] with liver service consultation as patient has 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 -Transfer is pending at [facility] -I was able to discuss the case with the call center today and they state they have an usually large occupancy at this time and when unable to give us any indication when they may have a bed for him End-stage renal disease -Dialysis dependent -Vascular surgery was consulted for suture removals for AV fistula that was created on 05/05/2024 -Will need outpatient follow-up for stitches removal -AV fistula is not usable at this point -Continue dialysis per vascular access in the form of tunneled dialysis catheter in right chest -Nephrology is following -Continue home sodium bicarb Severe hypercalcemia -Calcium levels up to 14 today -Imaging thus far is unremarkable for any tumors that could induce hypercalcemia -PTH is elevated and baseline PTH level has been requested from his dialysis center per nephrology -Dialysis today per nephrology and unable to give pamidronate due to GFR -Suspect this is contributing to his altered mental status -Patient did receive 2 doses of calcitonin at 200 units on 06/06/2024 and 400 units on 06/07/2024 and this appears to be nonresponsive to the calcitonin -Discussed with nephrology and unable to give denosumab as we do not have any on formulary here -Will check ionized calcium now and repeat in a.m. 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 -Discussed with GI and they feel that this is likely related to his chronic pancreatitis Hypernatremia/hyperchloremia -Start D5W -Did discuss with nephrology -Recheck in a.m. Toxic/metabolic encephalopathy -Related to the above -CT brain was unremarkable -Should improve once we can correct his electrolyte abnormalities -Tacrolimus level is pending and if elevated will hold drug after discussion with nephrology Pericardial effusion -CT of the chest showed moderate effusion-suspect this is over read -Check echocardiogram -Likely has mild pericardial effusion related to his renal dysfunction History of alcoholic liver cirrhosis status post transplant - reports transplant 2007 -Continue immunosuppression with tacrolimus and CellCept -Ammonia is normal -Decrease lactulose to 3 times daily -Hopeful that tacrolimus level will be back tomorrow as it is still pending at this time History of atrial fibrillation -Continue home carvedilol via G-tube -Will hold home diltiazem due to hypercalcemia to see if this could be contributing due to decreased clearance however suspicion is overall low -Patient does not appear to be chronically anticoagulated at baseline Essential hypertension -Patient is on midodrine at home currently on hold as blood pressures have been elevated -Increase carvedilol to 25 mg twice daily and hold diltiazem for now given elevated calcium level -Continue home hydralazine -As needed hydralazine available GERD -Continue PPI via NG tube with lansoprazole BPH with obstruction -Continue home Flomax -Patient does still make some urine Pancytopenia -Patient does not have active cirrhosis so not related to cirrhosis -Counts overall are stable -Suspect it may be related from his chronic immunosuppression -Will monitor with daily lab DM-2 -Restart home basal insulin at 4 units at at bedtime as he is now on continuous tube feeds with elevated blood sugars -Continue SSI every 6 Hyperlipidemia -Continue home statin Depression -Continue home sertraline DVT prophylaxis -Continue subcu heparin every 8 CODE STATUS -Full code Charges/Coding Visit Charges Inpatient E&M: 80789 Subs Hosp L2
[2024-06-08] MEDS: NEPRO TUBE FEED 1,000 ML 45 ML GT (11:17)
[2024-06-08] MEDS: Dextrose 5%-Water (1000mL Bag) 1,000 ML 60 ML IV (11:24)
[2024-06-08] MEDS: 0.9% Normal Saline 1,000 ML IV.SOLN. 1000 ML OPERA.SITE (11:47)
[2024-06-08] MEDS: PureFlow B 3K Dialysis Soln 1 BAG 6 BAG PF (11:47)
[2024-06-08] MEDS: Epoetin Alfa-EPBX 20,000 unit/ml 20000 UNIT IV (12:24)
[2024-06-08 12:29] LABS: Bedside Glucose 154 mg/dL (74-106)
[2024-06-08] MEDS: Heparin 10,000 UNITS/10 ML Vial IV (14:32)
[2024-06-08] MEDS: Clopidogrel Bisulfate 75 MG Tablet NG (14:44)
[2024-06-08] MEDS: Pyridoxine HCl 100 MG Tablet PO (14:45)
[2024-06-08] MEDS: Tacrolimus Anhydrous 1 MG Capsule 2 MG NG ×2 (14:46→22:24)
[2024-06-08] MEDS: Lansoprazole 15 MG Capsule.DR 30 MG NG (14:46)
[2024-06-08] MEDS: Sertraline 50 MG Tablet 25 MG NG (14:47)
[2024-06-08] MEDS: hydrALAZINE 50 MG Tablet NG ×2 (14:48→22:21)
[2024-06-08] MEDS: Folic Acid/Vitamin B Comp W-C 1 Capsule 1 CAP NG (14:48)
[2024-06-08] MEDS: Ceftriaxone 1 GM/50 ML BAG IV (14:48)
[2024-06-08] MEDS: Potassium Chloride Oral Soln 20 MEQ/15 ML UDC 60 MEQ PO (14:49)
--- NOTE | 2024-06-08 16:50 | ECHOD_ITS ---
Reason For Study: Pericardial Effusion Procedure This was a 2D Doppler, Color Flow transthoracic echocardiogram. Exam performed portable in patient room. Left Ventricle Normal LV size. Moderate concentric left ventricular hypertrophy. Left ventricular systolic function is normal. The left ventricular ejection fraction is 65 %. Stage 1 diastolic dysfunction. No regional wall motion abnormalities noted. Right Ventricle Normal RV size. Normal systolic function. Atria Normal left atrium. Normal right atrium. Mitral Valve There is mild mitral annular calcification. Tricuspid Valve Normal tricuspid valve. Mild (1+) tricuspid valve insufficiency. Pulmonary artery systolic pressure is 40 mmHg. Aortic Valve Trisinus/trileaflet aortic valve. Pulmonic Valve Normal pulmonic valve. Great Vessels Calcified aortic root. The pulmonary artery is normal size. Inferior vena cava collapse with respiration. Pericardium/Pleural Small pericardial effusion. MMode/2D Measurements & Calculations LVIDd: 3.6 cm IVSd: 1.7 cm LVOT diam: 1.9 cm LVIDs: 2.2 cm LVPWd: 1.5 cm LVOT area: 2.8 cm2 RVDd: 3.2 cm FS: 39.4 % Ao root diam: 3.7 cm LAV(MOD-bp): 38.2 ml LVAd ap4: 22.3 cm2 LAV(MOD-bp) Indexed: 22.0 ml/m2 LVLd ap4: 7.1 cm LAV(MOD-sp2): 19.6 ml EDV(MOD-sp4): 58.8 ml LAV(MOD-sp4): 54.0 ml EDV(sp4-el): 59.7 ml LVAs ap4: 11.9 cm2 LVLs ap4: 5.9 cm ESV(MOD-sp4): 21.3 ml ESV(sp4-el): 20.5 ml EF(MOD-sp4): 63.8 % EF(sp4-el): 65.7 % SV(MOD-sp4): 37.5 ml SV(sp4-el): 39.2 ml LA A4 area: 19.9 cm2 LA dimension(2D): 3.2 cm RA A4 area: 13.0 cm2 TAPSE: 1.9 cm Time Measurements MV dec time: 0.32 sec Doppler Measurements & Calculations MV E max sky: 65.1 cm/sec Lat Peak E' Sky: 5.2 cm/sec Med Peak E' Sky: 4.4 cm/sec MV A max sky: 105.2 cm/sec E/E' lat: 12.4 E/E' med: 14.8 MV E/A: 0.62 Ao V2 max: 182.8 cm/sec LV V1 max: 100.1 cm/sec MV dec slope: 200.8 cm/sec2 Ao max P.4 mmHg LV V1 max P.0 mmHg Ao V2 mean: 142.8 cm/sec LV V1 mean P.7 mmHg Ao mean P.6 mmHg LV V1 mean: 80.7 cm/sec Ao V2 VTI: 29.9 cm LV V1 VTI: 19.9 cm AV (velocity ratio): 0.67 KIMBERLY(I,D): 1.9 cm2 KIMBERLY(V,D): 1.5 cm2 SV(LVOT): 56.3 ml PA V2 max: 91.5 cm/sec TR max sky: 303.5 cm/sec PA max PG (full): 1.3 mmHg TR max P.9 mmHg ECHO/Echo Complete Interpretation Summary Normal LV size. Moderate concentric left ventricular hypertrophy. Left ventricular systolic function is normal. The left ventricular ejection fraction is 65 %. Stage 1 diastolic dysfunction. Small to medium sized pericardial effusion with no evidence of tamponade. Ordering Physician: Haylee Lopez Referring Physician: Sanju Fiore Performed By: Neli Cronin RVT, RDCS and Student
[2024-06-08 18:45] LABS: Bedside Glucose 191 mg/dL (74-106)
[2024-06-08 20:52] LABS: Ionized Calcium Order ORDER TUBE
[2024-06-08] MEDS: Atorvastatin Calcium 40 MG Tablet NG (22:21)
[2024-06-08] MEDS: Carvedilol 25 MG Tablet NG (22:23)
[2024-06-08] MEDS: MELATONIN 10 MG TABLET NG (22:24)
[2024-06-08] MEDS: Nystatin Powder 15gm Bottle 1 APPLIC TOPICAL (23:03)
[2024-06-08] MEDS: Menthol/Lanolin/Calamine/Znox 113 GM Tube 1 APPLIC TOPICAL (23:04)
[2024-06-08] MEDS: Insulin Glargine-YFGN 100 UNIT/ML Pen SC (23:43)
[2024-06-09] VITALS (21 sets, daily range): BP systolic 73–139; BP diastolic 48–84; PULSE 80–108; RESP 11–41; TEMP 36.5–39.4; O2SAT 95–100
[2024-06-09 00:06] LABS: Bedside Glucose 175 mg/dL (74-106)
[2024-06-09] MEDS: 0.9% Saline Lock 10 ML Syringe IV ×2 (06:15→22:59)
[2024-06-09] MEDS: Lactulose 20 GM/30 ML UDC 30 GM NG ×3 (06:16→20:44)
[2024-06-09] MEDS: Sodium Bicarbonate 650 MG Tablet NG ×3 (06:16→20:46)
[2024-06-09 06:56] LABS: Absolute Neutrophil Count 6.5 X10^3/uL (2.0-7.7); Basophil# 0.04 X10^3/uL; Basophil% 0.4 % (0-1); Eosinophil# 0.07 X10^3/uL; Eosinophils% 0.8 % (0-5); Hematocrit 28.3 % (40-54); Hemoglobin 8.9 g/dL (13.0-16.5); Lymphocyte % 13.2 % (19-41); Mean Corp Hgb Conc 31.4 g/dL (32-36); Mean Corpuscular Hgb 31.6 pg (27.0-32.0); Mean Corpuscular Volume 100.4 fL (80-94); Mean Platelet Vol. 9.7 fl (6.2-12.0); Monocyte# 0.99 X10^3/uL; Monocyte% 10.9 % (0-10); NRBC Flagged by Analyzer 1.5 % (0-5); Neutrophil # 6.49 X10^3/uL (2.7-7.7); Neutrophil % 71.4 % (47-70); Platelet Count 108 K/mm3 (150-450); RBC Distribution Width CV 18.9 % (11.6-14.6); RBC Distribution Width SD 63.9 fl (35.1-43.9); Red Blood Count 2.82 M/mm3 (4.6-6.2); White Blood Count 9.1 K/mm3 (4.4-11.0)
[2024-06-09] MEDS: Insulin Lispro 100 UNIT/ML INSULN.PEN SC ×3 (06:56→23:03)
[2024-06-09] MEDS: Dextrose 5%-Water (1000mL Bag) 1,000 ML 60 ML IV (06:57)
[2024-06-09 07:20] LABS: Bedside Glucose 264 mg/dL (74-106)
[2024-06-09 07:29] LABS: AST(SGOT) 13 U/L (15-37); Alanine Aminotransfer ALT/SGPT 17 U/L (16-61); Alkaline Phosphatase 94 U/L (45-117); Anion Gap 4 (5-15); BUN 20 mg/dL (7-18); BUN/Creat Ratio 5.2 RATIO (10-20); Chloride 110 mmol/L (98-107); Creatinine, Serum 3.88 mg/dL (0.70-1.30); EST Glomerular Filtration Rate 16 mL/min (>60); Est Glom Filt Rate - Afr Amer 19 mL/min (>60); Estimated Creatinine Clearance 13.93 ml/min; Glucose 284 mg/dL (74-106); Magnesium 2.7 mg/dL (1.6-2.6); Potassium 3.4 mmol/L (3.5-5.1); Sodium Level 141 mmol/L (136-145)
[2024-06-09 07:51] LABS: Ionized Calcium Order ORDER TUBE
[2024-06-09 07:55] LABS: Phosphorus 1.8 mg/dL (2.5-4.9)
--- NOTE | 2024-06-09 08:08 | NURSING ---
Dr. Lopez states do not check residual from stomach through nasogastric tube and continue tube feeding.
--- NOTE | 2024-06-09 08:34 | NURSING ---
[facility] called, no bed available at this time for transfer.
--- NOTE | 2024-06-09 09:54 | NURSING ---
clarified with pharmacy that D5 in water, Aredia, and Rocephin are all compatible with one another.
--- NOTE | 2024-06-09 10:18 | NURSING ---
After clarifying in person (face to face) with Dr Lopez, we are allowed to check gastric residual per protocol but we are to not hold tube feed for high residual unless pt is symptomatic.
[2024-06-09] MEDS: Potassium Chloride Oral Soln 20 MEQ/15 ML UDC 40 MEQ PO (10:54)
[2024-06-09] MEDS: Carvedilol 25 MG Tablet NG (10:56)
[2024-06-09] MEDS: Sertraline 50 MG Tablet 25 MG NG (10:56)
[2024-06-09] MEDS: hydrALAZINE 50 MG Tablet NG (10:56)
[2024-06-09] MEDS: Clopidogrel Bisulfate 75 MG Tablet NG (10:56)
[2024-06-09] MEDS: Menthol/Lanolin/Calamine/Znox 113 GM Tube 1 APPLIC TOPICAL ×2 (10:58→20:44)
[2024-06-09] MEDS: Pamidronate Disodium 60 MG in 0.9% Normal Saline (500mL Bag) 500 ML 250 MG IV (10:58)
[2024-06-09] MEDS: Lansoprazole 15 MG Capsule.DR 30 MG NG (10:59)
[2024-06-09] MEDS: Nystatin Powder 15gm Bottle 1 APPLIC TOPICAL ×2 (11:00→20:46)
[2024-06-09] MEDS: Tacrolimus Anhydrous 1 MG Capsule 2 MG NG (11:02)
[2024-06-09] MEDS: Pyridoxine HCl 100 MG Tablet PO (11:03)
--- NOTE | 2024-06-09 11:15 | PCM.PN.REN ---
Documented by User: BELLO Ryan 06/09/24 11:26 Subjective Subjective No overnight events. Patient not verbal nor following any commands. at bedside. Objective Data Objective Data Vital Signs: Vital Signs Temp Pulse Resp BP Pulse Ox O2 Del Method 98.3 F 85 18 130/59 H 100 Room Air 06/09/24 10:46 06/09/24 10:46 06/09/24 10:46 06/09/24 10:46 06/09/24 10:46 06/09/24 10:46 Oxygen Delivery Method Room Air Weight: 65.453 kg Body Mass Index (BMI) 22.6 Intake & Output: Intake and Output for Last 24 Hours 06/07/24 06/08/24 06/09/24 23:59 23:59 23:59 Intake Total 2386.66 / 2386.66 776.75 / 776.75 1980 Output Total 2960 / 2960 Balance 2386.66 / 2386.66 -2183.25 / -2183.25 1980 Medical Nutrition Assessment Dietitian: Malnutrition Criteria Met Start: 06/04/24 13:41 Freq: Status: Active Protocol: Document 06/07/24 15:56 RMA (Rec: 06/07/24 15:56 RMA [id number]) Nutrition Malnutrition Evidence of Malnutrition Exists Yes Malnutrition (severe): Chronic Evidenced By Suboptimal Energy Intake ( Severe),Weight Loss (Severe) Intake Problem Inadequate Oral Intake Etiology related to lethargy, confusion and swallowing difficulty Signs/Symptoms as evidenced by NPO and need for enteral nutrition support Status Active Problem Clinical Problem Chronic Disease or Condition Related Malnutrition Etiology severe protein-calorie malnutrition in the context of chronic disease related to inadequate oral/energy intake and difficulty swallowing Signs/Symptoms as evidenced by BMI 24.5, approximately 25% unintentional weight loss x 13 months, PO meeting < 50% of estimated nutrition needs x 1 year, NPO and need for enteral nutrition support. Status Active Problem Recommendation Dietitian Recommendations/Changes Pt to remain NPO with NG placed for enteral nutrition support; will provide ~100% estimated nutrition needs via NG tube. Will continue TF of Nepro via NG tube to start at 15mL/hr and increase as tolerated by 10mL/hr Q 6-8 hours to goal rate 45 mL/hr. Flush with 120mL water Q 4 hours. TF at goal rate along with free water flushes will provide 1912 kcal, 87.5 gm pro and 1505 mL/ free water per day. Will adjust enteral nutrition support and flushes as needed. PO nutrition as tolerated if indicated otherwise provide all nutrition via NG tube to meet ~100% estimated nutrition needs. Lab / Micro Data 06/09/24 06:46 06/09/24 06:46 Labs: Laboratory Results - last 24 hr 06/08/24 11:46: POC Glucose 154 H 06/08/24 18:05: POC Glucose 191 H 06/08/24 19:59: Ionized Calcium 6.40 H 06/08/24 22:59: POC Glucose 175 H 06/09/24 06:46: WBC 9.1, RBC 2.82 L, Hgb 8.9 L, Hct 28.3 L, MCV 100.4 H, MCH 31.6, MCHC 31.4 L, RDW Std Deviation 63.9 H, RDW Coeff of Ursula 18.9 H, Plt Count 108 L, MPV 9.7, Immature Gran % (Auto) 3.300 H, Neut % (Auto) 71.4 H, Lymph % (Auto) 13.2 L, [place] % (Auto) 10.9 H, Eos % (Auto) 0.8, Baso % (Auto) 0.4, Absolute Neuts (auto) 6.5, Absolute Lymphs (auto) 1.20, Nucleated RBC % 1.5, Sodium 141, Potassium 3.4 L, Chloride 110 H, Carbon Dioxide 27.0, Anion Gap 4 L, BUN 20 H, Creatinine 3.88 H, Estim Creat Clear Calc 13.93, Est GFR (MDRD) Af Amer 19 L, Est GFR (MDRD) Non-Af 16 L, BUN/Creatinine Ratio 5.2 L, Glucose 284 H, Calcium 14.0 H*, Phosphorus 1.8 L, Magnesium 2.7 H, Total Bilirubin 0.50, AST 13 L, ALT 17, Alkaline Phosphatase 94, Total Protein 6.0 L, Albumin 3.0 L, Globulin 3.0, Albumin/Globulin Ratio 1.0 06/09/24 06:54: POC Glucose 264 H Micro: Microbiology 06/09/24 07:10 Gastric Fluid/Contents Gastric Occult Blood - Final 06/01/24 13:16 Urine, Clean Catch Urine Culture - Final Klebsiella pneumoniae sp pneum Radiography Diagnostic Testing: Radiology Impression Chest CT 06/08/24 10:35 IMPRESSION: 1. Cardiomegaly. 2. Moderate-sized pericardial effusion. Electronically Signed: Alexx Mitchell MD at 16:14 EDT , Physical Exam Narrative Lethargic, no apparent distress S1, S2, RRR Lung sounds clear anteriorly Abdomen soft, nontender No edema Right IJ tunneled hemodialysis catheter dressing clean, dry and intact Right mid arm AV fistula with good thrill and bruit. Sutures intact Assessment & Plan Assessment/Plan (1) ESRD (end stage renal disease) on dialysis: (2) General weakness: (3) Anemia of chronic disease: PLAN: Plan Impression/Plan: The patient is a 79-year-old male with past medical history significant for ESRD who dialyzes at [facility] Saturday. 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 The patient was brought to the emergency room for evaluation of weakness and difficulty standing. He is admitted for evaluation of debility and diarrhea. Continue HD on MWF schedule while he is in the hospital. - ESRD on HD MWF; Patient underwent HD yesterday via tunneled dialysis cath over 5 hours. He remains hemodynamically stable. He has been tolerating dialysis relatively well with fluid removal. Outpatient edw 73.8kg. Patient will have new lowered edw. 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 Patient had creation right arm AV fistula 05/05/2024. Sutures intact and patient was scheduled to have sutures removed today, will contact vascular today regarding timing of suture removal. - anemia of chronic disease; receiving SERVANDO with HD. Following hemoglobin trends - hypercalcemia; calcium trending up, 14.0 again today. Received dose of pamidronate x [address] chest no malignancy noted. Patient is dialyzing on a 3.0 calcium bath. Patient is not on any calcium based binders. Reviewed PTH/Calcium levels from outpatient HD center: Apr 2024 PTH 254/Corrected Calcium 10.0 (05/08) and 10.4 (05/01); March 2024 PTH 254/ Corrected Ca 9.9, Phosphorus 3.9. 25 OH Vit D 78.6. PTH 228. Pending 1,25 Vit D, SPEP. Will also check kappa lambda light chains and PTH related peptide. - hypernatremia; sodium improved. Patient has been NPO. started nepro TF via NGT and receiving free water flushes every 4 hours - history ESLD s/p liver transplant; awaiting bed at [facility]. Tacrolimus level pending Documented by User: Dr. Winston Kennedy MD 06/09/24 12:47 Objective Data Lab / Micro Data 06/09/24 06:46 06/09/24 06:46 Assessment & Plan Assessment/Plan (1) ESRD (end stage renal disease) on dialysis: (2) General weakness: (3) Anemia of chronic disease: PLAN: Plan Impression/Plan: The patient is a 79-year-old male with past medical history significant for ESRD who dialyzes at [facility] Saturday. 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 The patient was brought to the emergency room for evaluation of weakness and difficulty standing. He is admitted for evaluation of debility and diarrhea. Continue HD on MWF schedule while he is in the hospital. - ESRD on HD MWF; Patient underwent HD yesterday via tunneled dialysis cath over 5 hours. He remains hemodynamically stable. He has been tolerating dialysis relatively well with fluid removal. Outpatient edw 73.8kg. Patient will have new lowered edw. 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 Patient had creation right arm AV fistula 05/05/2024. Sutures intact and patient was scheduled to have sutures removed today, will contact vascular today regarding timing of suture removal. - anemia of chronic disease; receiving SERVANDO with HD. Following hemoglobin trends - hypercalcemia; calcium trending up, 14.0 again today. Received dose of pamidronate x [address] chest no malignancy noted. Patient is dialyzing on a 3.0 calcium bath. Patient is not on any calcium based binders. Reviewed PTH/Calcium levels from outpatient HD center: Apr 2024 PTH 254/Corrected Calcium 10.0 (05/08) and 10.4 (05/01); March 2024 PTH 254/ Corrected Ca 9.9, Phosphorus 3.9. 25 OH Vit D 78.6. PTH 228. Pending 1,25 Vit D, SPEP. Will also check kappa lambda light chains and PTH related peptide. - hypernatremia; sodium improved. Patient has been NPO. started nepro TF via NGT and receiving free water flushes every 4 hours - history ESLD s/p liver transplant; awaiting bed at [facility]. Tacrolimus level pending attending addendum reviewed records from [facility]. He was admitted there early this year with renal failure. thought to be related to chronic immunosupression. of note he did have intermittent hypercalcemia even before. Ca levels were as high as 11.5. SPEP negative. K/L ratio was ok. vit D was higher, held. on HD at [facility]. since admission here ca levels have really increased significantly. HD yesterday with similar ca values. hold HD today. already received calcitonin. not a candidate for aggressive fluids. steroids are temporary. there is some data on temporary use of pamidronate in ESRD patient with hypercalcemia. will order a lower dose 60 mg today. denosumab is not available inpatient. [facility] hospitalist. [facility] pharmacy sodium better today. pending transfer to [facility] CT chest with pericardiac effusion CT abd with pancreatic lesion but MRCP ok depending on spep results may need bone scan
[2024-06-09 13:30] LABS: Bedside Glucose 172 mg/dL (74-106)
[2024-06-09] MEDS: Ceftriaxone 1 GM/50 ML BAG IV (13:33)
--- NOTE | 2024-06-09 15:00 | NURSING ---
RN Kamryn bran, called this RN into pt room d/t pt's declining respiratory status. Pt's resp. rate was 42, using accessory muscles, and lung sounds with wheezes and crackles. This RN contacted Dr Lopez and came to see pt. ABGs and CXR were ordered. Dr Lopez decided to send pt to ICU to intubate d/t respiratoy decline. Pt was transported to ICU by this RN, RNs Nicolle and Kamryn, and respiratory therapist. was notified of new room number. P was intubated by Dr Lopez in ICU and central line inserted.
[2024-06-09] MEDS: Etomidate 20 MG/10 ML Vial IV (15:17)
[2024-06-09 15:34] LABS: Base Excess 7 mmol/L (-2 to +2); Bicarbonate 31.2 mmol/L (22-26); Blood Gas Specimen Type ART; Mode AC; O2 Delivery Device Adult Vent; PEEP 5; PO2 111 mmHG (75-100); RR 14; SITE L Brach; SO2 98 % (95-99); Total Carbon Dioxide 33 mmol/L; pCO2 49.1 mmHg (35-45); pH 7.41 (7.35-7.45)
[2024-06-09] MEDS: fentaNYL drip 100 ML 5 MCG CONT INF (15:40)
--- NOTE | 2024-06-09 15:49 | NURSING ---
[facility] called for update, aware patient moved to the ICU. States he will now need accepted to an ICU bed and will reach out to MD.
--- NOTE | 2024-06-09 16:00 | RAD_ITS ---
INDICATION: LINE PLACEMENT EXAMINATION/TECHNIQUE: X-RAY - XR Chest 1 View COMPARISON: FINDINGS: LINES/DEVICES: Dual lumen right venous line with tip at the proximal SVC. Nasogastric tube in the stomach. Endotracheal tube with tip 62 mm above the jerome. LUNGS: Mild left basilar infiltrate/pleural effusion. No pneumothorax. MEDIASTINUM AND CARDIOVASCULAR STRUCTURES: Cardiac silhouette not enlarged. Central airways and mediastinal contour are unremarkable. BONES AND SOFT TISSUES: Degenerative vertebral changes. RAD/Chest 1 View (Portable) IMPRESSION: Mild left basilar infiltrate/pleural effusion. Electronically Signed: Vincent Briones DO at 16:13 EDT Reading Location ID and State: [facility] / [place] Tel [phone], Service support ,
--- NOTE | 2024-06-09 16:05 | PCM.OP.PRO ---
Procedure Report Date of Procedure: 06/09/24 Intubation Indication: Decreased mentation with inability protect airway Consent was obtained from: The patient was placed in the appropriate sniffing position. Preoxygenated sedation via blow-by oxygen was provided for a minimum of 3 minutes. The patient had continuous cardiac as well as pulse oximetry monitoring during the procedure. Procedure sedation was provided by the administration of 10 mg of etomidate. Direct laryngoscopy was then performed using a number 4 blade, which revealed a grade 1A view. A 7.5 mm endotracheal tube was visualized advancing between the cords to the level of 22 cm at the lip. The stylette was then removed and discarded. Tube placement was confirmed by fogging in the tube along with equal and bilateral breath sounds. Colorimetric change was visualized on the CO2 meter. The cuff was then inflated and the tube secured using a commercially available device. A good pulse oximetry waveform was seen on the monitor throughout the procedure. A portable chest x-ray has been ordered to confirm appropriate placement. The patient tolerated the procedure well. Procedures Hospitalists Procedures: [id number] Insert Emergency Airway
--- NOTE | 2024-06-09 16:07 | PRO.PCM_ITS ---
Procedure Report Date of Procedure: 06/09/24 Central Venous Catheter Indication: IV access--> femoral access was chosen due to right IJ tunneled dialysis catheter and recently placed left upper extremity fistula Consent was obtained from: A time-out was completed verifying correct patient, procedure, site, positionin g, and special equipment if applicable. The patient was placed in a dependent position appropriate for central line placement based on the vein to be cannulated. The patient's right femoral area was prepped and draped in a sterile fashion. 1% lidocaine was used to anesthetize the surrounding skin area. A triple-lumen catheter was introduced into the right femoral vein using the Seldinger technique and under ultrasound guidance. The catheter was threaded smoothly over the guidewire and appropriate blood return was obtained. Each lumen of the catheter was evacuated of air and flushed with sterile saline. The catheter was then sutured in place to the skin and a sterile dressing applied. Chest x-ray to confirm appropriate positioning is pending. ULTRASOUND GUIDANCE STATEMENT (Vascular Access): I performed ultrasound image acquisition and interpretation for needle placement during the procedure. The vessel was identified and found to be free of thrombosis by compression technique. A safe point of entry was marked at the skin in an angle for axis was determined. The needle was guided by obtaining free-flowing fluid and by real-time visualization. Procedures Hospitalists Procedures: [id number] Insert Non-tunnel CV Cath
--- NOTE | 2024-06-09 16:08 | PCM.PN.HOSP ---
Reason for Visit Reason for Visit: Generalized weakness Subjective Subjective No issues overnight. Patient was a bit restless and having difficulty clearing secretions this morning but no signs of respiratory distress this afternoon he became more agitated and respiratory rate had increased to 40. Breath sounds were more rhonchorous. Sats were still 97% on room air. We did make the decision to electively intubate him due to altered mental status, concern for aspiration and airway protection. Objective Data Objective Data Vital Signs: Vital Signs Temp Pulse Resp BP Pulse Ox O2 Del Method FiO2 97.7 F L 99 20 H 139/69 H 100 Room Air 50 06/09/24 14:46 06/09/24 15:25 06/09/24 15:25 06/09/24 14:46 06/09/24 15:25 06/09/24 14:46 06/09/24 15:25 Oxygen Delivery Method Room Air Weight: 65.453 kg Body Mass Index (BMI) 22.6 Intake & Output: Intake and Output for Last 24 Hours 06/07/24 06/08/24 06/09/24 23:59 23:59 23:59 Intake Total 2386.66 / 2386.66 776.75 / 776.75 2883.6667 / 2883.6667 Output Total 2960 / 2960 Balance 2386.66 / 2386.66 -2183.25 / -2183.25 2883.6667 / 2883.6667 Medical Nutrition Assessment Dietitian: Malnutrition Criteria Met Start: 06/04/24 13:41 Freq: Status: Active Protocol: Document 06/07/24 15:56 RMA (Rec: 06/07/24 15:56 RMA [id number]) Nutrition Malnutrition Evidence of Malnutrition Exists Yes Malnutrition (severe): Chronic Evidenced By Suboptimal Energy Intake ( Severe),Weight Loss (Severe) Intake Problem Inadequate Oral Intake Etiology related to lethargy, confusion and swallowing difficulty Signs/Symptoms as evidenced by NPO and need for enteral nutrition support Status Active Problem Clinical Problem Chronic Disease or Condition Related Malnutrition Etiology severe protein-calorie malnutrition in the context of chronic disease related to inadequate oral/energy intake and difficulty swallowing Signs/Symptoms as evidenced by BMI 24.5, approximately 25% unintentional weight loss x 13 months, PO meeting < 50% of estimated nutrition needs x 1 year, NPO and need for enteral nutrition support. Status Active Problem Recommendation Dietitian Recommendations/Changes Pt to remain NPO with NG placed for enteral nutrition support; will provide ~100% estimated nutrition needs via NG tube. Will continue TF of Nepro via NG tube to start at 15mL/hr and increase as tolerated by 10mL/hr Q 6-8 hours to goal rate 45 mL/hr. Flush with 120mL water Q 4 hours. TF at goal rate along with free water flushes will provide 1912 kcal, 87.5 gm pro and 1505 mL/ free water per day. Will adjust enteral nutrition support and flushes as needed. PO nutrition as tolerated if indicated otherwise provide all nutrition via NG tube to meet ~100% estimated nutrition needs. Lab / Micro Data 06/09/24 06:46 06/09/24 06:46 Labs: Laboratory Results - last 24 hr 06/08/24 18:05: POC Glucose 191 H 06/08/24 19:59: Ionized Calcium 6.40 H 06/08/24 22:59: POC Glucose 175 H 06/09/24 06:46: WBC 9.1, RBC 2.82 L, Hgb 8.9 L, Hct 28.3 L, MCV 100.4 H, MCH 31.6, MCHC 31.4 L, RDW Std Deviation 63.9 H, RDW Coeff of Ursula 18.9 H, Plt Count 108 L, MPV 9.7, Immature Gran % (Auto) 3.300 H, Neut % (Auto) 71.4 H, Lymph % (Auto) 13.2 L, [place] % (Auto) 10.9 H, Eos % (Auto) 0.8, Baso % (Auto) 0.4, Absolute Neuts (auto) 6.5, Absolute Lymphs (auto) 1.20, Nucleated RBC % 1.5, Sodium 141, Potassium 3.4 L, Chloride 110 H, Carbon Dioxide 27.0, Anion Gap 4 L, BUN 20 H, Creatinine 3.88 H, Estim Creat Clear Calc 13.93, Est GFR (MDRD) Af Amer 19 L, Est GFR (MDRD) Non-Af 16 L, BUN/Creatinine Ratio 5.2 L, Glucose 284 H, Calcium 14.0 H*, Phosphorus 1.8 L, Magnesium 2.7 H, Total Bilirubin 0.50, AST 13 L, ALT 17, Alkaline Phosphatase 94, Total Protein 6.0 L, Albumin 3.0 L, Globulin 3.0, Albumin/Globulin Ratio 1.0 06/09/24 06:54: POC Glucose 264 H 06/09/24 12:37: POC Glucose 172 H Micro: Microbiology 06/09/24 07:10 Gastric Fluid/Contents Gastric Occult Blood - Final 06/01/24 13:16 Urine, Clean Catch Urine Culture - Final Klebsiella pneumoniae sp pneum ABG Data ABG results: ABG 06/09/24 15:32 Specimen Type ART Sample Site L Brach pH 7.41 Bicarbonate Actual 31.2 H Total CO2 33 Base Excess 7 H O2 Saturation 98 O2 % 50.0 ABG pCO2 49.1 H ABG pO2 111 H Respiration Rate 14 O2 Delivery Device Adult Vent Vent Mode AC Tidal Volume 450.0 POC PEEP 5 Radiography Diagnostic Testing: Radiology Impression Chest CT 06/08/24 10:35 IMPRESSION: 1. Cardiomegaly. 2. Moderate-sized pericardial effusion. Electronically Signed: Alexx Mitchell MD at 16:14 EDT , Echocardiogram 06/08/24 16:50 Interpretation Summary Normal LV size. Moderate concentric left ventricular hypertrophy. Left ventricular systolic function is normal. The left ventricular ejection fraction is 65 %. Stage 1 diastolic dysfunction. Small to medium sized pericardial effusion with no evidence of tamponade. Ordering Physician: Haylee Lopez Referring Physician: Sanju Fiore Performed By: Mehrdad FLOREZ RDCS, Neli and Student Physical Exam Const average body habitus; Negative for healthy appearing Constitutional Narrative: Patient with more somnolence, older, white male, sitting up in bed, does not follow commands, at bedside, in restraints due to dialysis catheter in right chest and NG tube in nares, does not appear toxic or uncomfortable at this time, but on reeval patient appeared more uncomfortable and was having tachypnea Orientation / Consciousness: confused and lethargic HEENT normocephalic and head/scalp atraumatic; Negative for moist oral mucous membranes HEENT Narrative: Edentulous, mucous membranes are dry Resp No clear to auscultation bilaterally Resp Narrative: Tachypnea clear in the morning but scattered rhonchi in the afternoon, patient with belly breathing Auscultation: rhonchi; Negative for rales or wheezes Cardio regular rate, regular rhythm, S1 normal heart sound, S2 normal heart sound, no murmurs, no rub, no gallops and no clicks GI normal to inspection, nondistended, normoactive bowel sounds, soft to palpation and non-tender GI Narrative: NG tube in situ Extremity no clubbing, cyanosis or edema Extremity Narrative: Pedal pulses and radial pulses are 2+ Skin Skin Narrative: Dialysis catheter in right chest-clean dry and intact, intertrigo candidiasis Neuro No oriented x3 Neuro Narrative: Spontaneously moves all extremities but does not follow commands Psych Psych Narrative: Unable to assess due to mental status alteration Assessment & Plan Assessment/Plan (1) Failure to thrive: (2) General weakness: (3) Hypercalcemia: (4) Toxic metabolic encephalopathy: PLAN: Plan Acute respiratory failure secondary to altered mentation and decreased ability to protect airway -Intubated on 06/09/2024 for airway protection with decreased mentation and increased respiratory distress -Highly suspect ongoing aspiration Will transition antibiotics to Zosyn for more anaerobic coverage -This will also cover his urine -Sputum culture pending -Will avoid propofol for sedation with hypercalcemia -Currently on fentanyl and if need further sedation will consider Precedex -Postintubation ABG was stable so no need to repeat -Postintubation x-ray with possibly developing right lower lobe infiltrate -Copious secretions suctioned from the supraglottic airway at the time of intubation -Consult pulmonary/critical care medicine Generalized weakness/debility -Suspect multifactorial -CT of the brain unremarkable for any acute findings -Continue PT/OT/speech therapy as able after extubation -NG in place and will continue tube feeds -Tacrolimus level remains pending -Plan is for transfer to [facility] with liver service consultation as patient has 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 -I did update [facility] and discussed the case with MICU physician who is accepted and is hopeful for bed later tonight or through the evening End-stage renal disease -Dialysis dependent -Vascular surgery was consulted for suture removals for AV fistula that was created on 05/05/2024 -Vascular surgery has been unable to see him and sutures are due to be removed on 06/10/2024 -AV fistula is not usable at this point -Right stage I basilic fistula creation was performed on 05/05/2024 -Continue dialysis per vascular access in the form of tunneled dialysis catheter in right chest -Nephrology is following -Continue home sodium bicarb Severe hypercalcemia -Calcium level remains at 14 today -Imaging thus far is unremarkable for any tumors that could induce hypercalcemia -PTH is not markedly elevated for patient on dialysis -STEFAN and SPEP pending, kappa and lambda light chains pending, PTH RP pending, vitamin D 1-25 pending -Highly suspect this is contributing to his altered mental status -Patient did receive 2 doses of calcitonin at 200 units on 06/06/2024 and 400 units on 06/07/2024 and this appears to be nonresponsive to the calcitonin -1 dose of pamidronate given today per nephrology -unable to give denosumab as we do not have any on formulary here for inpatient -Calcium has not markedly decreased with dialysis however we only have 1 dialysis bath available that is higher in calcium--> suspect he would respond better to a dialysis bath with less calcium 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 -Discussed with GI and they feel that this is likely related to his chronic pancreatitis -No current intervention needed Hypernatremia/hyperchloremia -Resolved Toxic/metabolic encephalopathy -Related to the above -CT brain was unremarkable -Should improve once we can correct his electrolyte abnormalities -Tacrolimus level is pending and if elevated will hold drug after discussion with nephrology Klebsiella UTI -Antibiotic day 5 with ceftriaxone -Transition to Zosyn due to the above -Organism was fairly pansensitive Pericardial effusion -CT of the chest showed moderate effusion--> follow-up echocardiogram showed EF of 65% with stage I diastolic dysfunction, moderate concentric LVH and small to medium sized pericardial effusion with no evidence of tamponade -Likely has mild pericardial effusion related to his renal dysfunction Hypokalemia -Potassium 40 mill equivalents given via NG today next-repeat lab in a.m. -Magnesium levels normal Hypophosphatemia -Will give 40 mmol of sodium Phos -Recheck History of alcoholic liver cirrhosis status post transplant - reports transplant 2007 -Ammonia is normal -Will continue lactulose 3 times daily -We have had to hold his CellCept due to inability to crush and placed on NG -Continue tacrolimus--> if levels are elevated will hold History of atrial fibrillation -Continue home carvedilol via G-tube -Will hold diltiazem with intubation and sedation his blood pressures may be lower -Patient does not appear to be chronically anticoagulated at baseline Essential hypertension -Patient is on midodrine at home currently on hold as blood pressures have been elevated -Continue carvedilol -Hold diltiazem -Continue home hydralazine -As needed hydralazine available GERD -Continue PPI via NG tube with lansoprazole BPH with obstruction -Continue home Flomax -Patient does still make some urine Pancytopenia -White count is now slightly up--> may be related to aspiration or some recovery with holding CellCept -Continue to monitor -Hemoglobin and platelet count are stable DM-2 -Continue basal insulin but increase from home dose of 4 units to 10 units -Continue SSI every 6 Hyperlipidemia -Continue home statin Depression -Continue home sertraline DVT prophylaxis -Continue subcu heparin every 8 CODE STATUS -Full code Critical care time greater than 36 minutes excluding procedures Charges/Coding Procedures Hospitalists Procedures: 75879 Critical Care 1st Hr
[2024-06-09] MEDS: NEPRO TUBE FEED 1,000 ML 45 ML GT (16:46)
[2024-06-09] MEDS: Heparin Injection (Vial) 5,000 UNIT/ML VIAL 5000 UNIT SC ×2 (16:49→20:46)
[2024-06-09] MEDS: Sodium Phosphate/Na Biphos 40 MMOL in 0.9% Normal Saline (500mL Bag) 500 ML 62.5 MMOL IV (17:15)
--- NOTE | 2024-06-09 17:28 | CPS ---
ADVANCED TUBE 1CM PER DR. LEVINE
[2024-06-09 19:19] LABS: Bedside Glucose 139 mg/dL (74-106)
--- NOTE | 2024-06-09 19:36 | CON.PCM.CC_ITS ---
HPI Consult Data Date of Consult: 06/09/24 HPI Narrative HPI Narrative: SELVIN SANON, is a 79 M who presents [facility] Medical History Loss of hearing Wears glasses Wears dentures Anxiety Depression Alcohol use Insulin dependent diabetes mellitus Uses wheelchair Walker as ambulation aid Back pain Dietary restriction History of ulceration Gastric reflux Shortness of breath on exertion History of renal dialysis History of edema History of echocardiogram Cardiology follow-up encounter Arthritis DVT (deep venous thrombosis) TIA (transient ischemic attack) Coronary artery disease Congestive heart failure Cirrhosis Hemochromatosis Non-smoker Hyperlipidemia Hypertension Stroke/cerebrovascular accident Home Medications ?Medication ?Instructions ?Recorded ?Last Taken ?Type aspirin 81 mg tablet 81 mg PO DAILY 08/22/21 06/01/24 History atorvastatin 40 mg tablet 40 mg PO QHS 08/22/21 05/31/24 History sodium bicarbonate 650 mg tablet 650 mg PO TID 08/22/21 06/01/24 History pyridoxine (vitamin B6) 100 mg 100 mg PO DAILY 04/26/23 06/01/24 History tablet (Vitamin B-6) insulin glargine 100 unit/mL (3 4 unit subcut QHS 03/03/24 05/04/24 History mL) subcutaneous pen (Lantus Solostar U-100 Insulin) insulin lispro 100 unit/mL 1 sliding scale dose subcut TID 03/03/24 Unknown History subcutaneous pen (Humalog KwikPen (U-100) Insulin) midodrine 5 mg tablet 5 mg PO BID 03/03/24 06/01/24 History tamsulosin 0.4 mg capsule 0.4 mg PO QHS 03/03/24 05/31/24 History torsemide 20 mg tablet 40 mg PO DAILY 03/03/24 06/01/24 History carvedilol 12.5 mg tablet 12.5 mg PO BID 05/01/24 05/31/24 History clopidogrel 75 mg tablet 75 mg PO DAILY 05/01/24 06/01/24 History diltiazem HCl 240 mg 240 mg PO DAILY 05/01/24 06/01/24 History capsule,extended release 24 hr mycophenolate mofetil 250 mg 500 mg PO BID 05/01/24 06/01/24 History capsule pantoprazole 40 mg tablet,delayed 40 mg PO DAILY 05/01/24 06/01/24 History release sertraline 25 mg tablet 25 mg PO DAILY 05/01/24 06/01/24 History tacrolimus 1 mg capsule, 2 mg PO BID 05/01/24 06/01/24 History immediate-release hydralazine 50 mg tablet 50 mg PO Q12.TCU 06/01/24 06/01/24 History vitamin B complex-vitamin C-folic 1 tab PO DAILY 06/01/24 06/01/24 History acid 0.8 mg tablet (Jie-Anne-Marie) Allergy/AdvReac Type Severity Reaction Status Date / Time No Known Allergies Allergy Verified 06/01/24 12:18 Surgical History History of cardiac catheterization Hx of colonoscopy History of coronary artery stent placement History of embolic filter insertion History of herniorrhaphy History of appendectomy History of cholecystectomy History of liver transplant Social History household members: spouse Smoking Status: Never smoker alcohol intake: never substance use type: does not use Objective Data Objective Data Vital Signs: Vital Signs Last response 3 Temperature 36.5 C L 06/09/24 14:46 Temperature Source Temporal 06/09/24 14:46 Pulse Rate 100 06/09/24 18:00 Pulse Strength Normal (2+) 06/09/24 08:39 Respiratory Rate 14 06/09/24 18:00 Respiratory Effort Mechanically Ventilated 06/09/24 17:19 Respiratory Depth Normal 06/09/24 08:13 Respiratory Pattern Normal 06/09/24 15:25 Blood Pressure 126/73 H 06/09/24 18:00 Blood Pressure Mean 90 06/09/24 18:00 Blood Pressure Source Monitor 06/09/24 18:00 Blood Pressure Position Semi-Fowlers 06/09/24 18:00 Blood Pressure Location Left Arm 06/09/24 18:00 Pulse Ox 99 06/09/24 18:00 Oxygen Delivery Method Mechanical Ventilator 06/09/24 18:00 Fraction of Inspired Oxygen (FIO2) 50 06/09/24 18:00 I&O: I&O Last 24 Hours 3 06/08/24 06/09/24 06/09/24 23:59 11:59 23:59 Intake Total 250 / 776.75 2150 / 3259.3267 1109.3267 / 3259.3267 Output Total 2960 / 2960 Balance -2710 / -2183.25 215 / 9.3267 1109.326 / 3258.3267 I&O: Total Stay 3 06/01/24 11:01 thru 06/09/24 17:19 Intake Total 9876.4067 Output Total 82901 Balance -553.5927 Current Meds Ordered / Administered: Current meds ordered / Administered 3 Generic Name Dose Route Start Last Admin Trade Name Freq PRN Reason Stop Dose Admin Acetaminophen 650 mg 06/05/24 21:17 06/08/24 05:25 Acetaminophen 650 Mg/20 Ml Udc NG 650 mg Q6H PRN PRN Administration Pain 1-10 Or Fever >100.7 Atorvastatin Calcium 40 mg 06/05/24 22:00 06/08/24 22:21 Atorvastatin Calcium 40 Mg Tablet NG 40 mg QHS HIRAM Administration Calamine/Phenol 1 applic 06/01/24 22:00 06/09/24 10:58 Menthol/Lanolin/Calamine/Znox 113 Gm Tube TOPICAL 1 applic BID HIRAM Administration Protocol Carvedilol 25 mg 06/08/24 22:00 06/09/24 10:56 Carvedilol 25 Mg Tablet NG 25 mg BID HIRAM Administration Protocol Clopidogrel Bisulfate 75 mg 06/06/24 10:00 06/09/24 10:56 Clopidogrel Bisulfate 75 Mg Tablet NG 75 mg DAILY HIRAM Administration Glucagon 1 mg 06/01/24 19:28 Glucagon 1 Mg/Ml Syringe IM X1 PRN Hypoglycemia Protocol Heparin Sodium (Porcine) 5,000 unit 06/05/24 14:00 06/09/24 16:49 Heparin Injection (Vial) 5,000 Unit/Ml Vial SC 5,000 unit Q8 HIRAM Administration Hydralazine HCl 50 mg 06/05/24 22:00 06/09/24 10:56 Hydralazine 50 Mg Tablet NG 50 mg Q12 HIRAM Administration Protocol Hydralazine HCl 10 mg 06/06/24 07:22 06/06/24 12:08 Hydralazine 20 Mg/Ml Vial IV 10 mg Q6H PRN PRN Administration Blood Pressure >160/110 Protocol Dextrose 250 mls @ 0 mls/hr 06/01/24 19:28 Dextrose 10%-Water IV .Q0M PRN HYPOGLYCEMIA Protocol As Directed Enteral Nutritional Formula 1,000 mls @ 45 mls/hr 06/06/24 11:30 06/09/24 16:46 Nepro Carb Steady GT 45 mls/hr .[id number] HIRAM Administration Dextrose 1,000 mls @ 60 mls/hr 06/08/24 11:05 06/09/24 16:30 IV 06/09/24 20:24 60 mls/hr .[id number] HIRAM Infusion Fentanyl 100 mls @ 5 mls/hr 06/09/24 15:30 06/09/24 17:00 CONT INF 50 mcg/hr UD HIRAM 5 mls/hr Titration Protocol 50 MCG/HR Sodium Phosphate 40 mmol/ 513.3333 mls @ 62.5 mls/hr 06/09/24 17:00 06/09/24 17:15 Sodium Chloride IV 06/10/24 01:12 62.5 mls/hr X1 ONE Administration Piperacillin Sod/Tazobactam 50 mls @ 12.5 mls/hr 06/09/24 22:00 Sod 3.375 gm/ Sodium Chloride IV Q12 [facility] Insulin Glargine 10 unit 06/09/24 22:00 Insulin Glargine-Yfgn 100 Unit/Ml Pen SC QHS [facility] Insulin Human Lispro 0 unit 06/07/24 00:01 06/09/24 12:41 Insulin Lispro 100 Unit/Ml Insuln.Pen SC 2 units Q6H HIRAM Administration Protocol Lactulose 30 gm 06/08/24 22:00 06/09/24 16:49 Lactulose 20 Gm/30 Ml Udc NG 30 gm TID HIRAM Administration Lansoprazole 30 mg 06/06/24 10:00 06/09/24 10:59 Lansoprazole 15 Mg Capsule. NG 30 mg DAILY HIRAM Administration Melatonin 10 mg 06/05/24 22:00 06/08/24 22:24 Melatonin 10 Mg Tablet NG 10 mg QHS HIRAM Administration Multivit/Ca Carb/B Cmplx/FA/Prenat 1 cap 06/06/24 10:00 06/09/24 11:08 Folic Acid/Vitamin B Comp W-C 1 Capsule NG Not Given DAILY [facility] Nitroglycerin 0.4 mg 06/01/24 16:15 Nitroglycerin (Inpatient Use) 0.4 Mg Tab.Subl SL Q5M PRN CARDIAC/CHEST PAIN Nystatin 1 applic 06/03/24 10:00 06/09/24 11:00 Nystatin Powder 15gm Bottle TOPICAL 1 applic BID [facility] Administration Protocol Prochlorperazine Edisylate 5 mg 06/01/24 16:15 06/08/24 05:25 Prochlorperazine 10 Mg/2 Ml Vial IV 5 mg Q4H PRN PRN Administration Breakthrough nausea/vomiting Pyridoxine HCl 100 mg 06/02/24 10:00 06/09/24 11:03 Pyridoxine Hcl 100 Mg Tablet PO 100 mg DAILY HIRAM Administration Senna/Docusate Sodium 2 tablet 06/05/24 21:15 Senna/Docusate Sodium 1 Tablet NG BID PRN PRN Constipation Sertraline HCl 25 mg 06/06/24 10:00 06/09/24 10:56 Sertraline 50 Mg Tablet NG 25 mg DAILY HIRAM Administration Sodium Bicarbonate 650 mg 06/05/24 22:00 06/09/24 16:50 Sodium Bicarbonate 650 Mg Tablet NG 650 mg TID [facility] Administration Sodium Chloride 10 - 40 ml 06/01/24 18:05 06/09/24 06:15 0.9% Saline Lock 10 Ml Syringe IV 10 ml UD PRN Administration SALINE FLUSH Tacrolimus 2 mg 06/05/24 22:00 06/09/24 11:02 Tacrolimus Anhydrous 1 Mg Capsule NG 2 mg BID HIRAM Administration Tamsulosin HCl 0.4 mg 06/01/24 22:00 06/08/24 21:53 Tamsulosin Hcl 0.4 Mg Capsule PO Not Given QHS [facility] Medical Records Data Medical Nutrition Assessment Dietitian: Malnutrition Criteria Met Start: 06/04/24 13:41 Freq: Status: Active Protocol: Document 06/07/24 15:56 RMA (Rec: 06/07/24 15:56 RMA [id number]) Nutrition Malnutrition Evidence of Malnutrition Exists Yes Malnutrition (severe): Chronic Evidenced By Suboptimal Energy Intake ( Severe),Weight Loss (Severe) Intake Problem Inadequate Oral Intake Etiology related to lethargy, confusion and swallowing difficulty Signs/Symptoms as evidenced by NPO and need for enteral nutrition support Status Active Problem Clinical Problem Chronic Disease or Condition Related Malnutrition Etiology severe protein-calorie malnutrition in the context of chronic disease related to inadequate oral/energy intake and difficulty swallowing Signs/Symptoms as evidenced by BMI 24.5, approximately 25% unintentional weight loss x 13 months, PO meeting < 50% of estimated nutrition needs x 1 year, NPO and need for enteral nutrition support. Status Active Problem Recommendation Dietitian Recommendations/Changes Pt to remain NPO with NG placed for enteral nutrition support; will provide ~100% estimated nutrition needs via NG tube. Will continue TF of Nepro via NG tube to start at 15mL/hr and increase as tolerated by 10mL/hr Q 6-8 hours to goal rate 45 mL/hr. Flush with 120mL water Q 4 hours. TF at goal rate along with free water flushes will provide 1912 kcal, 87.5 gm pro and 1505 mL/ free water per day. Will adjust enteral nutrition support and flushes as needed. PO nutrition as tolerated if indicated otherwise provide all nutrition via NG tube to meet ~100% estimated nutrition needs. Lab / Micro Data 06/09/24 06:46 06/09/24 06:46 Labs: Laboratory Results - last 24 hr 06/08/24 19:59: Ionized Calcium 6.40 H 06/08/24 22:59: POC Glucose 175 H 06/09/24 06:46: WBC 9.1, RBC 2.82 L, Hgb 8.9 L, Hct 28.3 L, MCV 100.4 H, MCH 31.6, MCHC 31.4 L, RDW Std Deviation 63.9 H, RDW Coeff of Ursula 18.9 H, Plt Count 108 L, MPV 9.7, Immature Gran % (Auto) 3.300 H, Neut % (Auto) 71.4 H, Lymph % (Auto) 13.2 L, [place] % (Auto) 10.9 H, Eos % (Auto) 0.8, Baso % (Auto) 0.4, Absolute Neuts (auto) 6.5, Absolute Lymphs (auto) 1.20, Nucleated RBC % 1.5, Sodium 141, Potassium 3.4 L, Chloride 110 H, Carbon Dioxide 27.0, Anion Gap 4 L, BUN 20 H, Creatinine 3.88 H, Estim Creat Clear Calc 13.93, Est GFR (MDRD) Af Amer 19 L, Est GFR (MDRD) Non-Af 16 L, BUN/Creatinine Ratio 5.2 L, Glucose 284 H , Calcium 14.0 H*, Phosphorus 1.8 L, Magnesium 2.7 H, Total Bilirubin 0.50, AST 13 L, ALT 17, Alkaline Phosphatase 94, Total Protein 6.0 L, Albumin 3.0 L, Globulin 3.0, Albumin/Globulin Ratio 1.0 06/09/24 06:54: POC Glucose 264 H 06/09/24 12:37: POC Glucose 172 H 06/09/24 19:02: POC Glucose 139 H Micro: Microbiology 06/09/24 15:30 Sputum, Induced/Lukens Gram Stain - Preliminary 06/09/24 07:10 Gastric Fluid/Contents Gastric Occult Blood - Final ABG Data ABG results: ABG 06/09/24 15:32 Specimen Type ART Sample Site L Brach pH 7.41 Bicarbonate Actual 31.2 H Total CO2 33 Base Excess 7 H O2 Saturation 98 O2 % 50.0 ABG pCO2 49.1 H ABG pO2 111 H Respiration Rate 14 O2 Delivery Device Adult Vent Vent Mode AC Tidal Volume 450.0 POC PEEP 5 Imaging Radiology Impression Echocardiogram 06/08/24 16:50 Interpretation Summary Normal LV size. Moderate concentric left ventricular hypertrophy. Left ventricular systolic function is normal. The left ventricular ejection fraction is 65 %. Stage 1 diastolic dysfunction. Small to medium sized pericardial effusion with no evidence of tamponade. Ordering Physician: Haylee Lopez Referring Physician: Sanju Fiore Performed By: Mehrdad FLOREZ RDCS, Neli and Student Chest X-Ray 06/09/24 16:00 IMPRESSION: Mild left basilar infiltrate/pleural effusion. Electronically Signed: Vincent Briones DO at 16:13 EDT , Assessment and Plan . Assessment and plan: HPI 79 yo chronically ill and immunosuppressed man admitted 06/01/24 w/ FTT at home. Stable, but ill and hypoactive on admission. UCX revealed GNR - treated w/ IV ABX. He has ESRD and required HD M/W/F. Course has been c/b persistent hypercalcemia despite HD. He remotely underwent OLTx and receives CellCept and Prograf. Prograf level obtained, but has not been resulted. He has had declining LOC and required O-T intubation and MV support 06/09/24. CT brain NAP. pCXR unremarkable. Lab o/w largely unremarkable. Currently sedated/unresponsive. HD stable. Modest MV requirement. He is awaiting TX to tertiary facility. PHYSICAL EXAM GEN sedated, unresponsive VS as above HEENT VICKY, NGT NECK supple COR RRR CHEST CTA ABD soft EXT minimal edema SKIN w/d JENNIFER obtunded ASSESSMENT 1. Acute respiratory failure requiring MV support 2. Severe encephalopathy w/ stupor / coma 3. ESRD 4. Hypercalcemia 5. Remote OLTx - chronically received Cellcept and Prograf 6. DM 7. H/O VTED 8. UTI TREATMENT PLAN -MV support -follow clinical FORESTRY ADVISER exam -consider MRI brain, if available -ABX -hold Prograf - level still pending -sq insulin -enteral nutrition -HD M-W-F -defer Ca++ management to Nephrology -sq UFH -prognosis very guarded Critical Care Time: 60 min The entirety of this encounter was done via Telemedicine
[2024-06-09] MEDS: Atorvastatin Calcium 40 MG Tablet NG (20:46)
[2024-06-09] MEDS: Acetaminophen 650 MG/20 ML UDC NG (20:47)
[2024-06-09] MEDS: Piperacil/Tazobactam 3.375 GM in 0.9% Normal Saline (50mL MB+) 50 ML IV (20:47)
--- NOTE | 2024-06-09 22:15 | NURSING ---
I contacted Dr. Garcia following a few low blood pressures. I was given orders to start levophed and give a dose of albumin. By the time the levophed was verified and sent up to the floor, the patient was no longer having MAP's below 65. The decision was made to hold off on starting the levo at this time.
[2024-06-09] MEDS: Albumin Human 25% (100 mL) 25 GM/100 ML BAG IV (22:56)
[2024-06-09] MEDS: Insulin Glargine-YFGN 100 UNIT/ML Pen 10 UNIT SC (23:02)
[2024-06-09 23:11] LABS: Ammonia < 10.0 umol/L (11-32)
[2024-06-09 23:50] LABS: Bedside Glucose 155 mg/dL (74-106)
[2024-06-10] VITALS (54 sets, daily range): BP systolic 82–311; BP diastolic 50–90; PULSE 74–92; RESP 14–17; TEMP 36.6–37.7; O2SAT 98–100; BMI 23.3; BMI 23.2
[2024-06-10 00:07] LABS: Tacrolimus (FK506) 9.7 ng/mL (2.0-20.0)
[2024-06-10 04:14] LABS: Absolute Lymphocyte Count 1.11 X10^3/uL (0.83-4.51); Absolute Neutrophil Count 7.6 X10^3/uL (2.0-7.7); Basophil# 0.01 X10^3/uL; Basophil% 0.1 % (0-1); Hematocrit 25.5 % (40-54); Hemoglobin 7.9 g/dL (13.0-16.5); Lymphocyte # 1.11 X10^3/ul (0.83-4.51); Lymphocyte % 11.4 % (19-41); Mean Corpuscular Hgb 31.5 pg (27.0-32.0); Mean Corpuscular Volume 101.6 fL (80-94); Mean Platelet Vol. 9.3 fl (6.2-12.0); Monocyte# 0.93 X10^3/uL; Monocyte% 9.5 % (0-10); NRBC Flagged by Analyzer 1.4 % (0-5); Neutrophil # 7.58 X10^3/uL (2.7-7.7); Neutrophil % 77.9 % (47-70); POSITIVE COUNT YES; POSITIVE MORPHOLOGY YES; Platelet Count 79 K/mm3 (150-450); RBC Distribution Width CV 19.2 % (11.6-14.6); RBC Distribution Width SD 65.4 fl (35.1-43.9); Red Blood Count 2.51 M/mm3 (4.6-6.2); White Blood Count 9.7 K/mm3 (4.4-11.0)
[2024-06-10 04:16] LABS: Differential Indicated SCAN CRITERIA MET
[2024-06-10] MEDS: Norepinephrine 8 MG in 0.9% Normal Saline (250mL Bag) 242 ML 9.4 MG CONT INF (04:45)
[2024-06-10 04:46] LABS: Phosphorus 4.9 mg/dL (2.5-4.9)
[2024-06-10 04:49] LABS: ALB/GLOB Ratio 1.1 RATIO (0.9-2.4); AST(SGOT) 13 U/L (15-37); Alanine Aminotransfer ALT/SGPT 15 U/L (16-61); Alkaline Phosphatase 69 U/L (45-117); Anion Gap 7 (5-15); BUN 34 mg/dL (7-18); BUN/Creat Ratio 7.2 RATIO (10-20); Calcium,Total 14.9 mg/dL (8.5-10.1); Chloride 112 mmol/L (98-107); Creatinine, Serum 4.71 mg/dL (0.70-1.30); EST Glomerular Filtration Rate 13 mL/min (>60); Est Glom Filt Rate - Afr Amer 16 mL/min (>60); Estimated Creatinine Clearance 11.48 ml/min; Globulin 2.7 g/dL (2.2-4.2); Glucose 164 mg/dL (74-106); Magnesium 2.6 mg/dL (1.6-2.6); Potassium 3.5 mmol/L (3.5-5.1); Protein, Total 5.7 g/dL (6.4-8.2); Sodium Level 147 mmol/L (136-145)
--- NOTE | 2024-06-10 04:49 | RAD_ITS ---
INDICATION: Respiratory Failure on vent EXAMINATION/TECHNIQUE: X-RAY - XR Chest 1 View COMPARISON: Prior study dated: 06/09/2024 FINDINGS: LINES/DEVICES: Endotracheal tube, nasogastric tube and right-sided permacath in stable position. LUNGS: Persistent left basilar infiltrate obscuring the left hemidiaphragm. Small left pleural effusion. MEDIASTINUM AND CARDIOVASCULAR STRUCTURES: Cardiac silhouette not enlarged. Central airways and mediastinal contour are unremarkable. BONES AND SOFT TISSUES: Unremarkable. RAD/Chest 1 View (Portable) IMPRESSION: No significant change. Electronically Signed: Holland Grossman MD at 8:52 EDT ,
[2024-06-10] MEDS: 0.9% Saline Lock 10 ML Syringe IV ×2 (04:57→10:34)
[2024-06-10] MEDS: Lactulose 20 GM/30 ML UDC 30 GM NG ×3 (05:01→20:36)
[2024-06-10] MEDS: Sodium Bicarbonate 650 MG Tablet NG ×2 (05:01→20:37)
[2024-06-10] MEDS: Heparin Injection (Vial) 5,000 UNIT/ML VIAL 5000 UNIT SC ×2 (05:01→12:32)
[2024-06-10 05:23] LABS: Anisocytosis 2+; Burr Cells RARE; Differential Comment SCANNED; Platelet Estimate MOD DEC (ADEQ)
[2024-06-10 05:23] LABS: Bedside Glucose 145 mg/dL (74-106)
--- NOTE | 2024-06-10 07:07 | MRI_ITS ---
EXAM: MR HEAD WITHOUT INTRAVENOUS CONTRAST CLINICAL INDICATION: altered mental status TECHNIQUE: Multiplanar and multisequence MR images of the brain were obtained without intravenous contrast. COMPARISON: CT brain 06/03/2024 FINDINGS: BRAIN AND EXTRA-AXIAL SPACES: Encephalomalacic changes of the right occipital and both frontal lobes again noted. Increased T2 signal intensity within the cerebral white matter suggestive of chronic microvascular change. No hemorrhage or mass effect. No evidence of acute ischemia. SELLA: Normal. Normal sella turcica, pituitary gland, infundibular stalk, optic chiasm and hypothalamus. AUDITORY SYSTEM: Normal. The internal auditory canals are patent. BONES/JOINTS: Intact calvarium. SINUSES: Unremarkable as visualized. Clear. MASTOID AIR CELLS: Bilateral mastoid sinus effusions. ORBITS: Unremarkable as visualized. Both globes, extraocular muscles, optic nerves and retrobulbar fat appear unremarkable. VASCULATURE: Unremarkable as visualized. Normal flow voids in the major intracranial circulation. MRI/Brain without Contrast IMPRESSION: 1. No acute intracranial abnormality. 2. Stable chronic ischemic and senescent changes. Electronically Signed: Alexx Mitchell MD at 16:31 EDT ,
[2024-06-10] MEDS: 0.9% Normal Saline 1,000 ML IV.SOLN. 1000 ML OPERA.SITE (09:53)
[2024-06-10] MEDS: PureFlow B 3K Dialysis Soln 1 BAG 6 BAG PF (09:54)
[2024-06-10] MEDS: fentaNYL drip 100 ML 7.5 MCG CONT INF ×2 (10:05→19:42)
[2024-06-10] MEDS: Nystatin Powder 15gm Bottle 1 APPLIC TOPICAL ×2 (10:07→20:34)
[2024-06-10] MEDS: Menthol/Lanolin/Calamine/Znox 113 GM Tube 1 APPLIC TOPICAL ×3 (10:07→20:34)
[2024-06-10] MEDS: Dextrose 5%-Water (1000mL Bag) 1,000 ML 50 ML IV (10:07)
[2024-06-10] MEDS: Heparin 10,000 UNITS/10 ML Vial IV (10:34)
[2024-06-10 12:09] LABS: Vitamin D 1,25-Dihydroxy 44.7 pg/mL (24.8-81.5)
[2024-06-10] MEDS: Clopidogrel Bisulfate 75 MG Tablet NG (12:26)
[2024-06-10] MEDS: Tacrolimus Anhydrous 1 MG Capsule 2 MG NG ×2 (12:26→20:38)
[2024-06-10] MEDS: Pyridoxine HCl 100 MG Tablet PO (12:27)
[2024-06-10] MEDS: Piperacil/Tazobactam 3.375 GM in 0.9% Normal Saline (50mL MB+) 50 ML IV ×2 (12:32→20:33)
[2024-06-10] MEDS: Pantoprazole Sodium 40 MG in 0.9% Normal Saline (100mL MB+) 100 ML 330 MG IV ×2 (12:32→20:34)
[2024-06-10] MEDS: Insulin Lispro 100 UNIT/ML INSULN.PEN SC ×3 (12:35→23:58)
[2024-06-10] MEDS: Chlorhexidine 15 ML PO ×2 (12:55→20:36)
--- NOTE | 2024-06-10 13:21 | PN.CC_ITS ---
Objective Data Objective Data Vital Signs: Vital Signs Last response 3 Temperature 37.1 C 06/10/24 13:00 Temperature Source Core 06/10/24 13:00 Pulse Rate 81 06/10/24 13:00 Pulse Strength Normal (2+) 06/09/24 08:39 Respiratory Rate 14 06/10/24 13:00 Respiratory Effort Mechanically Ventilated 06/10/24 08:00 Respiratory Depth Normal 06/10/24 08:00 Respiratory Pattern Normal 06/10/24 11:14 Blood Pressure 122/61 H 06/10/24 13:00 Blood Pressure Mean 81 06/10/24 13:00 Blood Pressure Source Monitor 06/10/24 13:00 Blood Pressure Position Semi-Fowlers 06/10/24 13:00 Blood Pressure Location Left Arm 06/10/24 13:00 Pulse Ox 100 06/10/24 13:00 Oxygen Delivery Method Mechanical Ventilator 06/10/24 13:00 Fraction of Inspired Oxygen (FIO2) 30 06/10/24 13:00 I&O: I&O Last 24 Hours 3 06/09/24 06/10/24 06/10/24 23:59 11:59 23:59 Intake Total 1428.0767 / 3730.5767 1643.4333 / 1767.4333 124.0 / 1767.4333 Output Total 1100 / 1100 Balance 1428.0767 / 3730.5767 1643.4333 / 667.4333 -976.0 / 667.4333 I&O: Total Stay 3 06/01/24 11:01 thru 06/10/24 12:53 Intake Total 16647.5900 Output Total 92044 Balance 432.5900 Current Meds Ordered / Administered: Current meds ordered / Administered 3 Generic Name Dose Route Start Last Admin Trade Name Freq PRN Reason Stop Dose Admin Acetaminophen 650 mg 06/05/24 21:17 06/09/24 20:47 Acetaminophen 650 Mg/20 Ml Udc NG 650 mg Q6H PRN PRN Administration Pain 1-10 Or Fever >100.7 Atorvastatin Calcium 40 mg 06/05/24 22:00 06/09/24 20:46 Atorvastatin Calcium 40 Mg Tablet NG 40 mg QHS [facility]AM Administration Calamine/Phenol 1 applic 06/01/24 22:00 06/10/24 10:07 Menthol/Lanolin/Calamine/Znox 113 Gm Tube TOPICAL 1 applic BID [facility] Administration Protocol Carvedilol 25 mg 06/08/24 22:00 06/09/24 21:22 Carvedilol 25 Mg Tablet NG Not Given BID [facility] Protocol Chlorhexidine Gluconate 1 each 06/11/24 10:00 Chlorhexidine Gluc 2% Cloth 1 Each [place] TOPICAL DAILY [facility] Chlorhexidine Gluconate 15 ml 06/10/24 22:00 06/10/24 12:55 Chlorhexidine 15 Ml PO 15 ml BID [facility]AM Administration Clopidogrel Bisulfate 75 mg 06/06/24 10:00 06/10/24 12:26 Clopidogrel Bisulfate 75 Mg Tablet NG 75 mg DAILY [facility] Administration Glucagon 1 mg 06/01/24 19:28 Glucagon 1 Mg/Ml Syringe IM X1 PRN Hypoglycemia Protocol Hemodialysis Solution 6 bag 06/10/24 07:15 06/10/24 09:54 Pureflow B 3k Dialysis Soln 1 Bag PF 06/10/24 19:09 6 bag UD [facility] Administration Protocol Heparin Sodium (Porcine) 5,000 unit 06/05/24 14:00 06/10/24 12:32 Heparin Injection (Vial) 5,000 Unit/Ml Vial SC 5,000 unit Q8 [facility] Administration Heparin Sodium (Porcine) 1,000 - 3,000 units 06/10/24 07:07 06/10/24 10:34 Heparin 10,000 Units/10 Ml Vial IV 06/10/24 19:07 3,000 units X1 PRN Administration HD catheter closing Hydralazine HCl 50 mg 06/05/24 22:00 06/09/24 21:22 Hydralazine 50 Mg Tablet NG Not Given Q12 [facility] Protocol Hydralazine HCl 10 mg 06/06/24 07:22 06/06/24 12:08 Hydralazine 20 Mg/Ml Vial IV 10 mg Q6H PRN PRN Administration Blood Pressure >160/110 Protocol Dextrose 250 mls @ 0 mls/hr 06/01/24 19:28 Dextrose 10%-Water IV .Q0M PRN HYPOGLYCEMIA Protocol As Directed Enteral Nutritional Formula 1,000 mls @ 45 mls/hr 06/06/24 11:30 06/10/24 06:04 Nepro Carb Steady GT Not Given .[id number] [facility] Fentanyl 100 mls @ 5 mls/hr 06/09/24 15:30 06/10/24 12:52 CONT INF 75 mcg/hr UD [facility] 7.5 mls/hr Titration Protocol 50 MCG/HR Piperacillin Sod/Tazobactam 50 mls @ 12.5 mls/hr 06/09/24 22:00 06/10/24 12:32 Sod 3.375 gm/ Sodium Chloride IV 12.5 mls/hr Q12 [facility] Administration Norepinephrine Bitartrate 8 mg 250 mls @ 9.375 mls/hr 06/09/24 22:15 06/10/24 07:00 / Sodium Chloride CONT INF 0 mcg/min .[id number] [facility] 0 mls/hr Titration Protocol 5 MCG/MIN Dextrose 1,000 mls @ 50 mls/hr 06/10/24 07:10 06/10/24 10:07 IV 06/11/24 03:09 50 mls/hr .Q20H [facility] Administration Pantoprazole Sodium 40 mg/ 110 mls @ 330 mls/hr 06/10/24 10:00 06/10/24 12:53 Sodium Chloride IV Infused Q12 [facility] Infusion Insulin Glargine 10 unit 06/09/24 22:00 06/09/24 23:02 Insulin Glargine-Yfgn 100 Unit/Ml Pen SC 10 unit QHS [facility] Administration Insulin Human Lispro 0 unit 06/07/24 00:01 06/10/24 12:35 Insulin Lispro 100 Unit/Ml Insuln.Pen SC 2 units Q6H [facility] Administration Protocol Lactulose 30 gm 06/08/24 22:00 06/10/24 12:27 Lactulose 20 Gm/30 Ml Udc NG 30 gm TID [facility] Administration Melatonin 10 mg 06/05/24 22:00 06/09/24 19:52 Melatonin 10 Mg Tablet NG Not Given QHS [facility] Multivit/Ca Carb/B Cmplx/FA/Prenat 1 cap 06/06/24 10:00 06/10/24 10:08 Folic Acid/Vitamin B Comp W-C 1 Capsule NG Not Given DAILY [facility] Nitroglycerin 0.4 mg 06/01/24 16:15 Nitroglycerin (Inpatient Use) 0.4 Mg Tab.Subl SL Q5M PRN CARDIAC/CHEST PAIN Nystatin 1 applic 06/03/24 10:00 06/10/24 10:07 Nystatin Powder 15gm Bottle TOPICAL 1 applic BID [facility] Administration Protocol Prochlorperazine Edisylate 5 mg 06/01/24 16:15 06/08/24 05:25 Prochlorperazine 10 Mg/2 Ml Vial IV 5 mg Q4H PRN PRN Administration Breakthrough nausea/vomiting Pyridoxine HCl 100 mg 06/02/24 10:00 06/10/24 12:27 Pyridoxine Hcl 100 Mg Tablet PO 100 mg DAILY [facility] Administration Senna/Docusate Sodium 2 tablet 06/05/24 21:15 Senna/Docusate Sodium 1 Tablet NG BID PRN PRN Constipation Sertraline HCl 25 mg 06/06/24 10:00 06/10/24 12:23 Sertraline 50 Mg Tablet NG Not Given DAILY [facility] Sodium Bicarbonate 650 mg 06/05/24 22:00 06/10/24 05:01 Sodium Bicarbonate 650 Mg Tablet NG 650 mg TID [facility] Administration Sodium Chloride 10 - 40 ml 06/01/24 18:05 06/10/24 10:34 0.9% Saline Lock 10 Ml Syringe IV 40 ml UD PRN Administration SALINE FLUSH Sodium Chloride 1,000 ml 06/10/24 07:10 06/10/24 09:53 0.9% Normal Saline 1,000 Ml Iv.Soln. OPERA.SITE 06/10/24 19:07 1,000 ml X1 [facility] Administration Sodium Chloride 200 ml 06/10/24 07:07 0.9% Normal Saline 1,000 Ml Iv.Soln. IV 06/10/24 19:07 X1 PRN to maintain SBP >90mmHg during Dialysis Tacrolimus 2 mg 06/05/24 22:00 06/10/24 12:26 Tacrolimus Anhydrous 1 Mg Capsule NG 2 mg BID [facility] Administration Tamsulosin HCl 0.4 mg 06/01/24 22:00 06/09/24 19:52 Tamsulosin Hcl 0.4 Mg Capsule PO Not Given QHS [facility] Medical Records Data Medical Nutrition Assessment Dietitian: Malnutrition Criteria Met Start: 06/04/24 13:41 Freq: Status: Active Protocol: Document 06/07/24 15:56 RMA (Rec: 06/07/24 15:56 RMA [id number]) Nutrition Malnutrition Evidence of Malnutrition Exists Yes Malnutrition (severe): Chronic Evidenced By Suboptimal Energy Intake ( Severe),Weight Loss (Severe) Intake Problem Inadequate Oral Intake Etiology related to lethargy, confusion and swallowing difficulty Signs/Symptoms as evidenced by NPO and need for enteral nutrition support Status Active Problem Clinical Problem Chronic Disease or Condition Related Malnutrition Etiology severe protein-calorie malnutrition in the context of chronic disease related to inadequate oral/energy intake and difficulty swallowing Signs/Symptoms as evidenced by BMI 24.5, approximately 25% unintentional weight loss x 13 months, PO meeting < 50% of estimated nutrition needs x 1 year, NPO and need for enteral nutrition support. Status Active Problem Recommendation Dietitian Recommendations/Changes Pt to remain NPO with NG placed for enteral nutrition support; will provide ~100% estimated nutrition needs via NG tube. Will continue TF of Nepro via NG tube to start at 15mL/hr and increase as tolerated by 10mL/hr Q 6-8 hours to goal rate 45 mL/hr. Flush with 120mL water Q 4 hours. TF at goal rate along with free water flushes will provide 1912 kcal, 87.5 gm pro and 1505 mL/ free water per day. Will adjust enteral nutrition support and flushes as needed. PO nutrition as tolerated if indicated otherwise provide all nutrition via NG tube to meet ~100% estimated nutrition needs. Lab / Micro Data 06/10/24 17:45 06/10/24 04:00 Labs: Laboratory Results - last 24 hr 06/06/24 08:10: Tacrolimus 9.7 06/08/24 06:09: Vit D 1,25-Dihydroxy 44.7 06/09/24 12:37: POC Glucose 172 H 06/09/24 19:02: POC Glucose 139 H 06/09/24 22:32: Ammonia < 10.0 L 06/09/24 23:01: POC Glucose 155 H 06/10/24 04:00: WBC 9.7, RBC 2.51 L, Hgb 7.9 L, Hct 25.5 L, MCV 101.6 H, MCH 31.5, MCHC 31.0 L, RDW Std Deviation 65.4 H, RDW Coeff of Ursula 19.2 H, Plt Count 79 L, MPV 9.3, Immature Gran % (Auto) 1.100 H, Neut % (Auto) 77.9 H, Lymph % (Auto) 11.4 L, [place] % (Auto) 9.5, Eos % (Auto) 0.0, Baso % (Auto) 0.1, Absolute Neuts (auto) 7.6, Absolute Lymphs (auto) 1.11, Nucleated RBC % 1.4, Differential Comment SCANNED, Platelet Estimate MOD DEC, Anisocytosis 2+, Og Cells RARE, S odium 147 H, Potassium 3.5, Chloride 112 H, Carbon Dioxide 28.0, Anion Gap 7, B UN 34 H, Creatinine 4.71 H, Estim Creat Clear Calc 11.48, Est GFR (MDRD) Af Amer 16 L, Est GFR (MDRD) Non-Af 13 L, BUN/Creatinine Ratio 7.2 L, Glucose 164 H, C alcium 14.9 H*, Phosphorus 4.9, Magnesium 2.6, Total Bilirubin 0.70, AST 13 L, A LT 15 L, Alkaline Phosphatase 69, Total Protein 5.7 L, Albumin 3.0 L, Globulin 2.7, Albumin/Globulin Ratio 1.1 06/10/24 05:03: POC Glucose 145 H Micro: Microbiology 06/09/24 15:30 Sputum, Induced/Lukens Gram Stain - Final ABG Data ABG results: ABG 06/09/24 15:32 Specimen Type ART Sample Site L Brach pH 7.41 Bicarbonate Actual 31.2 H Total CO2 33 Base Excess 7 H O2 Saturation 98 O2 % 50.0 ABG pCO2 49.1 H ABG pO2 111 H Respiration Rate 14 O2 Delivery Device Adult Vent Vent Mode AC Tidal Volume 450.0 POC PEEP 5 Imaging Radiology Impression Chest X-Ray 06/09/24 16:00 IMPRESSION: Mild left basilar infiltrate/pleural effusion. Electronically Signed: Vincent Briones DO at 16:13 EDT , Chest X-Ray 06/10/24 04:49 IMPRESSION: No significant change. Electronically Signed: Holland Grossman MD at 8:52 EDT , Assessment and Plan . Assessment and plan: HPI 79 yo chronically ill and immunosuppressed man admitted 10/14/24 w/ FTT at home. Stable, but ill and hypoactive on admission. UCX revealed GNR - treated w/ IV ABX. He has ESRD and required HD M/W/. Course has been c/b persistent hypercalcemia despite HD. He remotely underwent OLTx and receives CellCept and Prograf. Prograf level obtained, but has not been resulted. He has had declining LOC and required O-T intubation and MV support 06/09/24. CT brain NAP. pCXR unremarkable. Lab o/w largely unremarkable. Currently sedated/unresponsive. HD stable. Modest MV requirement. He is awaiting TX to tertiary facility. 06/10/24 Sedated w/ fentanyl Modest MV requirement HD today Ca++ remains elevated MRI brain pending PHYSICAL EXAM GEN sedated, unresponsive VS as above HEENT VICKY, NGT NECK supple COR RRR CHEST CTA ABD soft EXT minimal edema SKIN w/d JENNIFER obtunded ASSESSMENT 1. Acute respiratory failure requiring MV support 2. Severe encephalopathy w/ stupor / coma 3. ESRD 4. Hypercalcemia 5. Remote OLTx - chronically received Cellcept and Prograf 6. DM 7. H/O VTED 8. UTI TREATMENT PLAN -MV support -follow clinical SITE SAFETY REPRESENTATIVE exam -MRI brain today -ABX -I would continue to hold Prograf -sq insulin -enteral nutrition -HD M-W- -defer Ca++ management to Nephrology -sq UFH -prognosis very guarded Critical Care Time: 50 min The entirety of this encounter was done via Telemedicine
[2024-06-10 13:40] LABS: Bedside Glucose 165 mg/dL (74-106)
[2024-06-10 14:10] LABS: Albumin 3.4 g/dL (2.9-4.4); Alpha-1-Globulins 0.3 g/dL (0.0-0.4); Alpha-2-Globulins 0.4 g/dL (0.4-1.0); Gamma Globulin 0.9 g/dL (0.4-1.8); IMMUNOFIXATION RESULT,S Comment: (.); Immunoglobulin A 136 mg/dL (61-437); Immunoglobulin G 897 mg/dL (603-1613); Immunoglobulin M 27 mg/dL (15-143); PROEL- TOTAL PROTEIN 5.7 g/dL (6.0-8.5)
--- NOTE | 2024-06-10 15:12 | NURSING ---
patient transferred to MRI at this time
[2024-06-10 16:10] LABS: Free Kappa Light Chains 87.4 mg/L (3.3-19.4); Free Lambda Light Chains 50.3 mg/L (5.7-26.3)
--- NOTE | 2024-06-10 16:30 | PCM.PN.HOSP ---
Reason for Visit Reason for Visit: Generalized weakness Subjective Subjective No issues overnight. His calcium continues to rise and is currently 14.9. Still awaiting transfer to [facility]. Unclear when bed will be made available. Transfer initiated on 06/05/2024. Objective Data Objective Data Vital Signs: Vital Signs Temp Pulse Resp BP Pulse Ox O2 Del Method FiO2 99.2 F H 92 16 120/61 100 Mechanical Ventilator 100 06/10/24 15:00 06/10/24 15:55 06/10/24 15:55 06/10/24 15:55 06/10/24 15:55 06/10/24 15:55 06/10/24 15:55 Oxygen Delivery Method Mechanical Ventilator Weight: 67.132 kg Body Mass Index (BMI) 23.2 Intake & Output: Intake and Output for Last 24 Hours 06/08/24 06/09/24 06/10/24 23:59 23:59 23:59 Intake Total 776.75 / 776.75 3578.0767 / 3730.5767 3187.2233 / 3187.2233 Output Total 2960 / 2960 1100 / 1100 Balance -2183.25 / -2183.25 3578.0767 / 3730.5767 208.2233 / 208.2233 Medical Nutrition Assessment Dietitian: Malnutrition Criteria Met Start: 06/04/24 13:41 Freq: Status: Active Protocol: Document 06/07/24 15:56 RMA (Rec: 06/07/24 15:56 RMA [id number]) Nutrition Malnutrition Evidence of Malnutrition Exists Yes Malnutrition (severe): Chronic Evidenced By Suboptimal Energy Intake ( Severe),Weight Loss (Severe) Intake Problem Inadequate Oral Intake Etiology related to lethargy, confusion and swallowing difficulty Signs/Symptoms as evidenced by NPO and need for enteral nutrition support Status Active Problem Clinical Problem Chronic Disease or Condition Related Malnutrition Etiology severe protein-calorie malnutrition in the context of chronic disease related to inadequate oral/energy intake and difficulty swallowing Signs/Symptoms as evidenced by BMI 24.5, approximately 25% unintentional weight loss x 13 months, PO meeting < 50% of estimated nutrition needs x 1 year, NPO and need for enteral nutrition support. Status Active Problem Recommendation Dietitian Recommendations/Changes Pt to remain NPO with NG placed for enteral nutrition support; will provide ~100% estimated nutrition needs via NG tube. Will continue TF of Nepro via NG tube to start at 15mL/hr and increase as tolerated by 10mL/hr Q 6-8 hours to goal rate 45 mL/hr. Flush with 120mL water Q 4 hours. TF at goal rate along with free water flushes will provide 1912 kcal, 87.5 gm pro and 1505 mL/ free water per day. Will adjust enteral nutrition support and flushes as needed. PO nutrition as tolerated if indicated otherwise provide all nutrition via NG tube to meet ~100% estimated nutrition needs. Lab / Micro Data 06/10/24 04:00 06/10/24 04:00 Labs: Laboratory Results - last 24 hr 06/06/24 08:10: Tacrolimus 9.7 06/08/24 06:09: Total Protein (PEP) 5.7 L, Globulin 2.3, Vit D 1,25-Dihydroxy 44.7, IgG 897, IgA 136, IgM 27, Immunofixation Screen Comment:, Albumin (STEFAN) 3.4, Albumin/Globulin (STEFAN) 1.5, Ygyvz-0-Izxxwidwo STEFAN 0.3, Pecju-1-Oloewnsvu STEFAN 0.4, Beta-Globulins (STEFAN) 0.8, Gamma Globulins (STEFAN) 0.9, STEFAN M-Brent Not Observed, STEFAN Comments Comment 06/09/24 06:46: Free [place] LC, Quant 87.4 H, Free Lambda LC, Quant 50.3 H, Free [place]/Lambda Ratio 1.74 H 06/09/24 19:02: POC Glucose 139 H 06/09/24 22:32: Ammonia < 10.0 L 06/09/24 23:01: POC Glucose 155 H 06/10/24 04:00: WBC 9.7, RBC 2.51 L, Hgb 7.9 L, Hct 25.5 L, MCV 101.6 H, MCH 31.5, MCHC 31.0 L, RDW Std Deviation 65.4 H, RDW Coeff of Ursula 19.2 H, Plt Count 79 L, MPV 9.3, Immature Gran % (Auto) 1.100 H, Neut % (Auto) 77.9 H, Lymph % (Auto) 11.4 L, [place] % (Auto) 9.5, Eos % (Auto) 0.0, Baso % (Auto) 0.1, Absolute Neuts (auto) 7.6, Absolute Lymphs (auto) 1.11, Nucleated RBC % 1.4, Differential Comment SCANNED, Platelet Estimate MOD DEC, Anisocytosis 2+, Og Cells RARE, Sodium 147 H, Potassium 3.5, Chloride 112 H, Carbon Dioxide 28.0, Anion Gap 7, BUN 34 H, Creatinine 4.71 H, Estim Creat Clear Calc 11.48, Est GFR (MDRD) Af Amer 16 L, Est GFR (MDRD) Non-Af 13 L, BUN/Creatinine Ratio 7.2 L, Glucose 164 H, Calcium 14.9 H*, Phosphorus 4.9, Magnesium 2.6, Total Bilirubin 0.70, AST 13 L, ALT 15 L, Alkaline Phosphatase 69, Total Protein 5.7 L, Albumin 3.0 L, Globulin 2.7, Albumin/Globulin Ratio 1.1 06/10/24 05:03: POC Glucose 145 H 06/10/24 12:34: POC Glucose 165 H Micro: Microbiology 06/09/24 15:30 Sputum, Induced/Lukens Gram Stain - Final 06/09/24 07:10 Gastric Fluid/Contents Gastric Occult Blood - Final 06/01/24 13:16 Urine, Clean Catch Urine Culture - Final Klebsiella pneumoniae sp pneum Radiography Diagnostic Testing: Radiology Impression Chest X-Ray 06/10/24 04:49 IMPRESSION: No significant change. Electronically Signed: Holland Grossman MD at 8:52 EDT , Physical Exam Const no apparent distress and average body habitus; Negative for healthy appearing Constitutional Narrative: Elderly, white male, lying in bed intubated and sedated, currently on dialysis, dialysis nurse at the bedside HEENT normocephalic, head/scalp atraumatic and moist oral mucous membranes HEENT Narrative: ET tube and NG in place, mild thrush noted Eyes PERRL and conjunctivae normal Neck no lymphadenopathy and supple Neck Narrative: Trachea midline Resp normal respiratory effort, normal air movement, no retractions, no use of accessory muscles and No clear to auscultation bilaterally Resp Narrative: Comfortable breathing on the ventilator Auscultation: rhonchi; Negative for rales or wheezes Cardio regular rate, regular rhythm, S1 normal heart sound, S2 normal heart sound, no murmurs, no rub, no gallops and no clicks GI normal to inspection, nondistended, normoactive bowel sounds, soft to palpation and non-tender Extremity no clubbing, cyanosis or edema Extremity Narrative: Pedal pulses and radial pulses are 2+ Skin Skin Narrative: Dialysis catheter in right chest-clean dry and intact, intertrigo candidiasis Neuro oriented x3 and CN's II-XII intact bilaterally Neuro Narrative: Intubated and sedated Psych Psych Narrative: Unable to assess due to intubation and sedation Assessment & Plan Assessment/Plan (1) Failure to thrive: (2) General weakness: (3) Hypercalcemia: (4) Toxic metabolic encephalopathy: PLAN: Plan Acute respiratory failure secondary to altered mentation and decreased ability to protect airway -Intubated on 06/09/2024 for airway protection with decreased mentation and increased respiratory distress -Will avoid propofol for sedation with hypercalcemia -Continue fentanyl for sedation -MRI brain now that patient is sedated -Mental status will probably be rate limiting step to extubation -Pulmonary/critical care medicine following Pneumonia -Suspect related to aspiration secondary to depressed mental status -Gram stain showing gram-negative rods and gram-positive cocci in cluster -Continue Zosyn and add vancomycin due to gram-positive cocci in clusters -Taper antibiotics once identification and sensitivities have resulted Generalized weakness/debility -Suspect multifactorial -CT of the brain unremarkable for any acute findings -Continue PT/OT/speech therapy as able after extubation -NG in place and will continue tube feeds -Initial plan was for transfer to [facility] with liver service consultation as patient has 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 -Still awaiting transfer to [facility] MICU now the patient is intubated End-stage renal disease -Dialysis dependent -Vascular surgery was consulted for suture removals for AV fistula that was created on 05/05/2024 -Vascular surgery has been unable to see him and sutures -->discussed with Vascular and ok to hold off until acute issues have resolved -AV fistula is not usable at this point -Right stage I basilic fistula creation was performed on 05/05/2024 -Continue dialysis per vascular access in the form of tunneled dialysis catheter in right chest -Nephrology is following -Continue home sodium bicarb Severe hypercalcemia -Calcium continues to trend up despite intervention -Imaging thus far is unremarkable for any tumors that could induce hypercalcemia -Will order bone scan tomorrow if he still here -PTH is not markedly elevated for patient on dialysis -STEFAN, kappa and lambda are slightly elevated but appropriate for end-stage renal disease -PTH RP pending, vitamin D 1-25 pending -Highly suspect this is contributing to his altered mental status -Patient did receive 2 doses of calcitonin at 200 units on 06/06/2024 and 400 units on 06/07/2024 and this appears to be nonresponsive to the calcitonin -1 dose of pamidronate given on 06/09/2024 per nephrology -Discussed denosumab again with pharmacy today and if his calcium remains elevated tomorrow after pamidronate being given yesterday we can give him 1 dose here -Calcium has not markedly decreased with dialysis however we only have 1 dialysis bath available that is higher in calcium--> suspect he would respond better to a dialysis bath with less calcium 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 -Discussed with GI and they feel that this is likely related to his chronic pancreatitis -No current intervention needed Hypernatremia/hyperchloremia -Trended back up so we will restart D5W at a slow rate -Repeat lab in a.m. Toxic/metabolic encephalopathy -Related to the above -CT brain was unremarkable -Should improve once we can correct his electrolyte abnormalities -Tacrolimus level is pending and if elevated will hold drug after discussion with nephrology Klebsiella UTI -Antibiotic day 6 now on Zosyn due to the above -Organism was fairly pansensitive Pericardial effusion -CT of the chest showed moderate effusion--> follow-up echocardiogram showed EF of 65% with stage I diastolic dysfunction, moderate concentric LVH and small to medium sized pericardial effusion with no evidence of tamponade -Likely has mild pericardial effusion related to his renal dysfunction Hypokalemia -Resolved -Repeat lab in a.m. Hypophosphatemia -Resolved History of alcoholic liver cirrhosis status post transplant - reports transplant 2007 -Ammonia is normal -Will continue lactulose 3 times daily -We have had to hold his CellCept due to inability to crush and placed on NG -Continue tacrolimus--> level was 9.7 History of atrial fibrillation -Continue home carvedilol via G-tube -Will hold diltiazem with intubation and sedation his blood pressures may be lower -Patient does not appear to be chronically anticoagulated at baseline History of stroke -Patient with multifocal strokes on imaging -Appears to have significant small vessel disease as well -Restart home aspirin via NG -Continue to address modifiable risk factors as able Essential hypertension -Patient is on midodrine at home currently on hold as blood pressures have been elevated -Continue carvedilol -Continue to hold diltiazem -Continue home hydralazine -As needed hydralazine available GERD -Continue PPI via NG tube with lansoprazole BPH with obstruction -Flomax on hold due to the fact that it is not crushable -Patient does still make some urine Pancytopenia -White count is up and stable with left shift present -Continue to monitor -Hemoglobin and platelet counts fluctuate DM-2 -Continue basal insulin at 10 units (home dose 4 units) -Blood sugar control is improved with fasting sugar this morning at 164 -Continue to monitor and adjust insulins as needed -Continue SSI every 6 -Patient is on tube feed at goal rate Hyperlipidemia -Continue home statin Depression -Continue home sertraline DVT/GI prophylaxis -Continue subcu heparin every 8 -Protonix 40 mg daily and discontinue p.o. lansoprazole as this increases risk tube clogging CODE STATUS -Full code Charges/Coding Visit Charges Inpatient E&M: 81669 [facility] L3
--- NOTE | 2024-06-10 16:50 | PCM.RX.CS ---
Consult Antibiotic Management Pharmacy has been consulted to manage selected antibiotic: Vancomycin Type of Intervention Type of Consult: New start Suspected Infection Suspected Infection: Pneumonia Labs Labs: Sodium 147 mmol/L (136-145) H 06/10/24 04:00 Potassium 3.5 mmol/L (3.5-5.1) 06/10/24 04:00 Chloride 112 mmol/L (98-107) H 06/10/24 04:00 Carbon Dioxide 28.0 mmol/L (21.0-32.0) 06/10/24 04:00 Anion Gap 7 (5-15) 06/10/24 04:00 BUN 34 mg/dL (7-18) H 06/10/24 04:00 Creatinine 4.71 mg/dL (0.70-1.30) H 06/10/24 04:00 Est GFR (MDRD) Af Amer 16 mL/min (>60) L 06/10/24 04:00 Est GFR (MDRD) Non-Af 13 mL/min (>60) L 06/10/24 04:00 BUN/Creatinine Ratio 7.2 RATIO (10-20) L 06/10/24 04:00 Glucose 164 mg/dL (74-106) H 06/10/24 04:00 Microbiology Microbiology: Microbiology 06/09/24 15:30 Sputum, Induced/Lukens Gram Stain - Final 06/09/24 07:10 Gastric Fluid/Contents Gastric Occult Blood - Final 06/01/24 13:16 Urine, Clean Catch Urine Culture - Final Klebsiella pneumoniae sp pneum Pharmacy Plan for Drug Dosing Pharmacy Plan for Drug Dosing: NEW START IV VANCOMYCIN Consulting Physician: Rosaura Lopez Indication: Pneumonia Goal Trough: 15-20 mg/dL SrCr: HD (MWF) CrCl: HD Comments: initial standard dose of 1000mg given 06/10 Vancomycin Dose: Patient is on HD (MWF schedule). Had dialysis today. Initial dose given today, will time next dose after next HD session (06/12/24) and get a random pre-HD level before the following HD session Friday 06/15. Pending Level: 06/15/24 @ 0600 - random Pharmacy Service will continue to monitor and adjust dosing as required.
--- NOTE | 2024-06-10 16:52 | PN.RENAL_ITS ---
Subjective Subjective Intubated. Blood pressure is acceptable. Dialysis today Objective Data Objective Data Vital Signs: Vital Signs Temp Pulse Resp BP Pulse Ox O2 Del Method FiO2 99.2 F H 92 16 120/61 100 Mechanical Ventilator 100 06/10/24 15:00 06/10/24 15:55 06/10/24 15:55 06/10/24 15:55 06/10/24 15:55 06/10/24 15:55 06/10/24 15:55 Oxygen Delivery Method Mechanical Ventilator Weight: 67.132 kg Body Mass Index (BMI) 23.2 Intake & Output: Intake and Output for Last 24 Hours 06/08/24 06/09/24 06/10/24 23:59 23:59 23:59 Intake Total 776.75 / 776.75 3578.0767 / 3730.5767 318.2233 / 318.2233 Output Total 2960 / 2960 1100 / 1100 Balance -2183.25 / -2183.25 3578.0767 / 3730.5767 / Medical Nutrition Assessment Dietitian: Malnutrition Criteria Met Start: 06/04/24 13:41 Freq: Status: Active Protocol: Document 06/07/24 15:56 RMA (Rec: 06/07/24 15:56 RMA [id number]) Nutrition Malnutrition Evidence of Malnutrition Exists Yes Malnutrition (severe): Chronic Evidenced By Suboptimal Energy Intake ( Severe),Weight Loss (Severe) Intake Problem Inadequate Oral Intake Etiology related to lethargy, confusion and swallowing difficulty Signs/Symptoms as evidenced by NPO and need for enteral nutrition support Status Active Problem Clinical Problem Chronic Disease or Condition Related Malnutrition Etiology severe protein-calorie malnutrition in the context of chronic disease related to inadequate oral/energy intake and difficulty swallowing Signs/Symptoms as evidenced by BMI 24.5, approximately 25% unintentional weight loss x 13 months, PO meeting < 50% of estimated nutrition needs x 1 year, NPO and need for enteral nutrition support. Status Active Problem Recommendation Dietitian Recommendations/Changes Pt to remain NPO with NG placed for enteral nutrition support; will provide ~100% estimated nutrition needs via NG tube. Will continue TF of Nepro via NG tube to start at 15mL/hr and increase as tolerated by 10mL/hr Q 6-8 hours to goal rate 45 mL/hr. Flush with 120mL water Q 4 hours. TF at goal rate along with free water flushes will provide 1912 kcal, 87.5 gm pro and 1505 mL/ free water per day. Will adjust enteral nutrition support and flushes as needed. PO nutrition as tolerated if indicated otherwise provide all nutrition via NG tube to meet ~100% estimated nutrition needs. Lab / Micro Data 06/10/24 04:00 06/10/24 04:00 Labs: Laboratory Results - last 24 hr 06/06/24 08:10: Tacrolimus 9.7 06/08/24 06:09: Total Protein (PEP) 5.7 L, Globulin 2.3, Vit D 1,25-Dihydroxy 44.7, IgG 897, IgA 136, IgM 27, Immunofixation Screen Comment:, Albumin (STEFAN) 3.4, Albumin/Globulin (STEFAN) 1.5, Hjivo-3-Fnkecqkrb STEFAN 0.3, Capjk-0-Izjzhjwwt STEFAN 0.4, Beta-Globulins (STEFAN) 0.8, Gamma Globulins (STEFAN) 0.9, STEFAN M-Brent Not Observed, STEFAN Comments Comment 06/09/24 06:46: Free [place] LC, Quant 87.4 H, Free [place] LC, Quant 50.3 H, Free [place]/Lambda Ratio 1.74 H 06/09/24 19:02: POC Glucose 139 H 06/09/24 22:32: Ammonia < 10.0 L 06/09/24 23:01: POC Glucose 155 H 06/10/24 04:00: WBC 9.7, RBC 2.51 L, Hgb 7.9 L, Hct 25.5 L, MCV 101.6 H, MCH 31.5, MCHC 31.0 L, RDW Std Deviation 65.4 H, RDW Coeff of Ursula 19.2 H, Plt Count 79 L, MPV 9.3, Immature Gran % (Auto) 1.100 H, Neut % (Auto) 77.9 H, Lymph % (Auto) 11.4 L, [place] % (Auto) 9.5, Eos % (Auto) 0.0, Baso % (Auto) 0.1, Absolute Neuts (auto) 7.6, Absolute Lymphs (auto) 1.11, Nucleated RBC % 1.4, Differential Comment SCANNED, Platelet Estimate MOD DEC, Anisocytosis 2+, [place] Cells RARE, S odium 147 H, Potassium 3.5, Chloride 112 H, Carbon Dioxide 28.0, Anion Gap 7, B UN 34 H, Creatinine 4.71 H, Estim Creat Clear Calc 11.48, Est GFR (MDRD) Af Amer 16 L, Est GFR (MDRD) Non-Af 13 L, BUN/Creatinine Ratio 7.2 L, Glucose 164 H, C alcium 14.9 H*, Phosphorus 4.9, Magnesium 2.6, Total Bilirubin 0.70, AST 13 L, A LT 15 L, Alkaline Phosphatase 69, Total Protein 5.7 L, Albumin 3.0 L, Globulin 2.7, Albumin/Globulin Ratio 1.1 06/10/24 05:03: POC Glucose 145 H 06/10/24 12:34: POC Glucose 165 H Micro: Microbiology 06/09/24 15:30 Sputum, Induced/Lukens Gram Stain - Final 06/09/24 07:10 Gastric Fluid/Contents Gastric Occult Blood - Final 06/01/24 13:16 Urine, Clean Catch Urine Culture - Final Klebsiella pneumoniae sp pneum Radiography Diagnostic Testing: Radiology Impression Chest X-Ray 06/10/24 04:49 IMPRESSION: No significant change. Electronically Signed: Holland Grossman MD at 8:52 EDT , Brain MRI 06/10/24 07:07 IMPRESSION: 1. No acute intracranial abnormality. 2. Stable chronic ischemic and senescent changes. Electronically Signed: Alexx Mitchell MD at 16:31 EDT , Physical Exam Narrative S1, S2, RRR Lung sounds clear anteriorly Abdomen soft, nontender No edema Right IJ tunneled hemodialysis catheter dressing clean, dry and intact Right mid arm AV fistula with good thrill and bruit. Sutures intact Assessment & Plan Assessment/Plan (1) ESRD (end stage renal disease) on dialysis: (2) General weakness: (3) Anemia of chronic disease: PLAN: Plan Impression/Plan: The patient is a 79-year-old male with past medical history significant for ESRD who dialyzes at [facility] [place] Saturday. 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 The patient was brought to the emergency room for evaluation of weakness and difficulty standing. He is admitted for evaluation of debility and diarrhea. Continue HD on MWF schedule while he is in the hospital. - ESRD on HD MWF; Outpatient edw 73.8kg. Patient will have new lowered edw. Patient had creation right arm AV fistula 05/05/2024. - anemia of chronic disease; receiving SERVANDO with HD. Following hemoglobin trends Hypercalcemia. Ongoing issue. Labs are back today. PTH about 220 which is not too bad for her ESRD status. Vitamin D, 25-hydroxy vitamin D and 1, 25-hydroxy vitamin D are normal. Serum protein electrophoresis negative. [place] and lambda light chain assay not impressive. PTH RP pending. Only remaining test would be a bone scan to rule out humeral hypercalcemia. CT chest and abdomen not impressive for any malignancy so far. Received pamidronate yesterday. Discussed with hospitalist. We might be able to get denosumab. We will wait on calcium levels tomorrow. If still high by Saturday, we may give a dose of denosumab. Discussed with family at bedside
[2024-06-10] MEDS: NYSTATIN 500,000 UNIT/5 ML UDC 500000 UNIT PO ×2 (16:53→20:37)
[2024-06-10] MEDS: NEPRO TUBE FEED 1,000 ML 30 ML GT (17:16)
[2024-06-10 17:20] LABS: Bedside Glucose 171 mg/dL (74-106)
[2024-06-10 17:55] LABS: Hemoglobin 7.6 g/dL (13.0-16.5)
[2024-06-10] MEDS: Vancomycin 1,000 MG in NS 180mls Q24 200 MG IV (18:13)
[2024-06-10] MEDS: Tamsulosin HCl 0.4 MG Capsule PO (20:37)
[2024-06-10] MEDS: Atorvastatin Calcium 40 MG Tablet NG (20:38)
[2024-06-10] MEDS: Insulin Glargine-YFGN 100 UNIT/ML Pen 10 UNIT SC (20:40)
[2024-06-11] VITALS (32 sets, daily range): BP systolic 95–148; BP diastolic 48–70; PULSE 76–97; RESP 14–17; TEMP 37.1–37.9; O2SAT 97–100; BMI 23.6
[2024-06-11 00:21] LABS: Bedside Glucose 176 mg/dL (74-106)
[2024-06-11] MEDS: Lactulose 20 GM/30 ML UDC 30 GM NG ×3 (05:55→20:02)
[2024-06-11] MEDS: Sodium Bicarbonate 650 MG Tablet NG ×3 (05:56→20:03)
[2024-06-11 06:42] LABS: Anion Gap 5 (5-15); BUN 29 mg/dL (7-18); BUN/Creat Ratio 7.5 RATIO (10-20); Calcium,Total 13.2 mg/dL (8.5-10.1); Chloride 108 mmol/L (98-107); Creatinine, Serum 3.89 mg/dL (0.70-1.30); EST Glomerular Filtration Rate 16 mL/min (>60); Est Glom Filt Rate - Afr Amer 19 mL/min (>60); Glucose 176 mg/dL (74-106); Potassium 3.1 mmol/L (3.5-5.1); Sodium Level 140 mmol/L (136-145)
[2024-06-11 06:46] LABS: Absolute Lymphocyte Count 1.01 X10^3/uL (0.83-4.51); Absolute Neutrophil Count 5.9 X10^3/uL (2.0-7.7); Basophil# 0.02 X10^3/uL; Basophil% 0.3 % (0-1); Eosinophil# 0.12 X10^3/uL; Eosinophils% 1.5 % (0-5); Hematocrit 25.7 % (40-54); Lymphocyte # 1.01 X10^3/ul (0.83-4.51); Lymphocyte % 12.8 % (19-41); Mean Corp Hgb Conc 31.1 g/dL (32-36); Mean Corpuscular Hgb 31.4 pg (27.0-32.0); Mean Corpuscular Volume 100.8 fL (80-94); Mean Platelet Vol. 10.1 fl (6.2-12.0); Monocyte# 0.68 X10^3/uL; Monocyte% 8.6 % (0-10); NRBC Flagged by Analyzer 0.5 % (0-5); Neutrophil # 5.94 X10^3/uL (2.7-7.7); POSITIVE COUNT YES; Platelet Count 79 K/mm3 (150-450); RBC Distribution Width CV 19.4 % (11.6-14.6); RBC Distribution Width SD 63.5 fl (35.1-43.9); Red Blood Count 2.55 M/mm3 (4.6-6.2); White Blood Count 7.9 K/mm3 (4.4-11.0)
[2024-06-11 06:49] LABS: Ionized Calcium 6.76 mg/dL (4.36-5.20)
[2024-06-11 07:04] LABS: Bedside Glucose 150 mg/dL (74-106)
[2024-06-11] MEDS: CHLORHEXIDINE GLUC 2% CLOTH 1 EACH TOWELETTE TOPICAL (09:55)
[2024-06-11] MEDS: Chlorhexidine 15 ML PO ×2 (09:55→20:01)
[2024-06-11] MEDS: Nystatin Powder 15gm Bottle 1 APPLIC TOPICAL ×2 (09:55→20:02)
[2024-06-11] MEDS: NYSTATIN 500,000 UNIT/5 ML UDC 500000 UNIT PO ×4 (09:56→20:02)
[2024-06-11] MEDS: Clopidogrel Bisulfate 75 MG Tablet NG (09:56)
[2024-06-11] MEDS: Tacrolimus Anhydrous 1 MG Capsule 2 MG NG (09:57)
[2024-06-11] MEDS: Sertraline 50 MG Tablet 25 MG NG (09:57)
[2024-06-11] MEDS: Pyridoxine HCl 100 MG Tablet PO (09:57)
[2024-06-11] MEDS: Menthol/Lanolin/Calamine/Znox 113 GM Tube 1 APPLIC TOPICAL ×2 (09:58→20:01)
[2024-06-11] MEDS: Potassium Chloride Oral Soln 20 MEQ/15 ML UDC 60 MEQ PO (10:00)
[2024-06-11] MEDS: Pantoprazole Sodium 40 MG in 0.9% Normal Saline (100mL MB+) 100 ML 330 MG IV ×2 (10:00→20:00)
[2024-06-11] MEDS: fentaNYL drip 100 ML 7.5 MCG CONT INF (10:31)
[2024-06-11] MEDS: Piperacil/Tazobactam 3.375 GM in 0.9% Normal Saline (50mL MB+) 50 ML IV ×2 (10:32→20:00)
--- NOTE | 2024-06-11 11:13 | PN.CC_ITS ---
Objective Data Objective Data Vital Signs: Vital Signs Last response 3 Temperature 37.2 C 06/11/24 08:00 Temperature Source Core 06/11/24 08:00 Pulse Rate 79 06/11/24 09:15 Pulse Strength Normal (2+) 06/10/24 22:00 Respiratory Rate 14 06/11/24 09:15 Respiratory Effort Mechanically Ventilated 06/11/24 08:00 Respiratory Depth Normal 06/11/24 04:00 Respiratory Pattern Normal 06/11/24 04:00 Blood Pressure 135/60 H 06/11/24 08:00 Blood Pressure Mean 85 06/11/24 08:00 Blood Pressure Source Monitor 06/11/24 08:00 Blood Pressure Position Sitting 06/11/24 08:00 Blood Pressure Location Left Arm 06/11/24 08:00 Pulse Ox 100 06/11/24 09:15 Oxygen Delivery Method Mechanical Ventilator 06/11/24 08:00 Fraction of Inspired Oxygen (FIO2) 21 06/11/24 09:15 I&O: I&O Last 24 Hours 3 06/10/24 06/10/24 06/11/24 11:59 23:59 11:59 Intake Total 1643.4333 / 3870.9333 2220.00 / 3870.9333 856.00 / 856.00 Output Total 1105 / 1105 Balance 1643.4333 / 2765.9333 1115.00 / 2765.9333 831.00 / 831.00 I&O: Total Stay 3 06/01/24 11:01 thru 06/11/24 10:32 Intake Total 06236.5900 Output Total 19203 Balance 3354.5900 Current Meds Ordered / Administered: Current meds ordered / Administered 3 Generic Name Dose Route Start Last Admin Trade Name Freq PRN Reason Stop Dose Admin Acetaminophen 650 mg 06/05/24 21:17 06/09/24 20:47 Acetaminophen 650 Mg/20 Ml Udc NG 650 mg Q6H PRN PRN Administration Pain 1-10 Or Fever >100.7 Atorvastatin Calcium 40 mg 06/05/24 22:00 06/10/24 20:38 Atorvastatin Calcium 40 Mg Tablet NG 40 mg QHS HIRAM Administration Calamine/Phenol 1 applic 06/01/24 22:00 06/11/24 09:58 Menthol/Lanolin/Calamine/Znox 113 Gm Tube TOPICAL 1 applic BID HIRAM Administration Protocol Carvedilol 25 mg 06/08/24 22:00 06/09/24 21:22 Carvedilol 25 Mg Tablet NG Not Given BID HIRAM Protocol Chlorhexidine Gluconate 1 each 06/11/24 10:00 06/11/24 09:55 Chlorhexidine Gluc 2% Cloth 1 Each [place] TOPICAL 1 each DAILY HIRAM Administration Chlorhexidine Gluconate 15 ml 06/10/24 22:00 06/11/24 09:55 Chlorhexidine 15 Ml PO 15 ml BID HIRAM Administration Clopidogrel Bisulfate 75 mg 06/06/24 10:00 06/11/24 09:56 Clopidogrel Bisulfate 75 Mg Tablet NG 75 mg DAILY HIRAM Administration Glucagon 1 mg 06/01/24 19:28 Glucagon 1 Mg/Ml Syringe IM X1 PRN Hypoglycemia Protocol Heparin Sodium (Porcine) 5,000 unit 06/05/24 14:00 06/10/24 12:32 Heparin Injection (Vial) 5,000 Unit/Ml Vial SC 5,000 unit Q8 HIRAM Administration Hydralazine HCl 50 mg 06/05/24 22:00 06/09/24 21:22 Hydralazine 50 Mg Tablet NG Not Given Q12 HIRAM Protocol Hydralazine HCl 10 mg 06/06/24 07:22 06/06/24 12:08 Hydralazine 20 Mg/Ml Vial IV 10 mg Q6H PRN PRN Administration Blood Pressure >160/110 Protocol Dextrose 250 mls @ 0 mls/hr 06/01/24 19:28 Dextrose 10%-Water IV .Q0M PRN HYPOGLYCEMIA Protocol As Directed Enteral Nutritional Formula 1,000 mls @ 45 mls/hr 06/06/24 11:30 06/11/24 08:00 Nepro Carb Steady GT 45 mls/hr .[id number] HIRAM Infusion Fentanyl 100 mls @ 5 mls/hr 06/09/24 15:30 06/11/24 10:31 CONT INF 75 mcg/hr UD HIRAM 7.5 mls/hr Administration Protocol 50 MCG/HR Piperacillin Sod/Tazobactam 50 mls @ 12.5 mls/hr 06/09/24 22:00 06/11/24 10:32 Sod 3.375 gm/ Sodium Chloride IV 12.5 mls/hr Q12 HIRAM Administration Norepinephrine Bitartrate 8 mg 250 mls @ 9.375 mls/hr 06/09/24 22:15 06/11/24 07:00 / Sodium Chloride CONT INF Infused .[id number] [facility] Titration Protocol 5 MCG/MIN Pantoprazole Sodium 40 mg/ 110 mls @ 330 mls/hr 06/10/24 10:00 06/11/24 10:32 Sodium Chloride IV Infused Q12 HIRAM Infusion Vancomycin IV-PHARMACY TO DOSE 500 mls @ 250 mls/hr 06/10/24 16:28 1 each/ Sodium Chloride IV X1 PRN Rx to Dose Protocol Vancomycin HCl 500 mg in 100 mls @ 100 mls/hr 06/12/24 14:00 IV 06/12/24 14:59 X1 ONE Insulin Glargine 10 unit 06/09/24 22:00 06/10/24 20:40 Insulin Glargine-Yfgn 100 Unit/Ml Pen SC 10 unit QHS [facility] Administration Insulin Human Lispro 0 unit 06/07/24 00:01 06/11/24 06:24 Insulin Lispro 100 Unit/Ml Insuln.Pen SC Not Given Q6H [facility] Protocol Lactulose 30 gm 06/08/24 22:00 06/11/24 05:55 Lactulose 20 Gm/30 Ml Udc NG 30 gm TID [facility] Administration Melatonin 10 mg 06/05/24 22:00 06/10/24 20:39 Melatonin 10 Mg Tablet NG Not Given QHS [facility] Nitroglycerin 0.4 mg 06/01/24 16:15 Nitroglycerin (Inpatient Use) 0.4 Mg Tab.Subl SL Q5M PRN CARDIAC/CHEST PAIN Nystatin 1 applic 06/03/24 10:00 06/11/24 09:55 Nystatin Powder 15gm Bottle TOPICAL 1 applic BID [facility] Administration Protocol Nystatin 500,000 unit 06/10/24 18:00 06/11/24 09:56 Nystatin 500,000 Unit/5 Ml Udc PO 500,000 unit 4X/DAY [facility] Administration Prochlorperazine Edisylate 5 mg 06/01/24 16:15 06/08/24 05:25 Prochlorperazine 10 Mg/2 Ml Vial IV 5 mg Q4H PRN PRN Administration Breakthrough nausea/vomiting Pyridoxine HCl 100 mg 06/02/24 10:00 06/11/24 09:57 Pyridoxine Hcl 100 Mg Tablet PO 100 mg DAILY HIRAM Administration Senna/Docusate Sodium 2 tablet 06/05/24 21:15 Senna/Docusate Sodium 1 Tablet NG BID PRN PRN Constipation Sertraline HCl 25 mg 06/06/24 10:00 06/11/24 09:57 Sertraline 50 Mg Tablet NG 25 mg DAILY HIRAM Administration Sodium Bicarbonate 650 mg 06/05/24 22:00 06/11/24 05:56 Sodium Bicarbonate 650 Mg Tablet NG 650 mg TID HIRAM Administration Sodium Chloride 10 - 40 ml 06/01/24 18:05 06/10/24 10:34 0.9% Saline Lock 10 Ml Syringe IV 40 ml UD PRN Administration SALINE FLUSH Tacrolimus 2 mg 06/05/24 22:00 06/11/24 09:57 Tacrolimus Anhydrous 1 Mg Capsule NG 2 mg BID HIRAM Administration Tamsulosin HCl 0.4 mg 06/01/24 22:00 06/10/24 20:37 Tamsulosin Hcl 0.4 Mg Capsule PO 0.4 mg QHS HIRAM Administration Vancomycin Protocol 1 lab 06/15/24 04:00 Vancomycin Trough/Random Due MC 06/15/24 08:00 DAILY [facility] Medical Records Data Medical Nutrition Assessment Dietitian: Malnutrition Criteria Met Start: 06/04/24 13:41 Freq: Status: Active Protocol: Document 06/07/24 15:56 RMA (Rec: 06/07/24 15:56 RMA [id number]) Nutrition Malnutrition Evidence of Malnutrition Exists Yes Malnutrition (severe): Chronic Evidenced By Suboptimal Energy Intake ( Severe),Weight Loss (Severe) Intake Problem Inadequate Oral Intake Etiology related to lethargy, confusion and swallowing difficulty Signs/Symptoms as evidenced by NPO and need for enteral nutrition support Status Active Problem Clinical Problem Chronic Disease or Condition Related Malnutrition Etiology severe protein-calorie malnutrition in the context of chronic disease related to inadequate oral/energy intake and difficulty swallowing Signs/Symptoms as evidenced by BMI 24.5, approximately 25% unintentional weight loss x 13 months, PO meeting < 50% of estimated nutrition needs x 1 year, NPO and need for enteral nutrition support. Status Active Problem Recommendation Dietitian Recommendations/Changes Pt to remain NPO with NG placed for enteral nutrition support; will provide ~100% estimated nutrition needs via NG tube. Will continue TF of Nepro via NG tube to start at 15mL/hr and increase as tolerated by 10mL/hr Q 6-8 hours to goal rate 45 mL/hr. Flush with 120mL water Q 4 hours. TF at goal rate along with free water flushes will provide 1912 kcal, 87.5 gm pro and 1505 mL/ free water per day. Will adjust enteral nutrition support and flushes as needed. PO nutrition as tolerated if indicated otherwise provide all nutrition via NG tube to meet ~100% estimated nutrition needs. Lab / Micro Data 06/11/24 06:32 06/11/24 05:45 Labs: Laboratory Results - last 24 hr 06/08/24 06:09: Total Protein (PEP) 5.7 L, Globulin 2.3, Vit D 1,25-Dihydroxy 44.7, IgG 897, IgA 136, IgM 27, Immunofixation Screen Comment:, Albumin (STEFAN) 3.4, Albumin/Globulin (STEFAN) 1.5, Qxkng-6-Gcosfsayc STEFAN 0.3, Odfpa-6-Prgtxbybu STEFAN 0.4, Beta-Globulins (STEFAN) 0.8, Gamma Globulins (STEFAN) 0.9, STEFAN M-Brent Not Observed, STEFAN Comments Comment 06/09/24 06:46: Free [place] LC, Quant 87.4 H, Free [place] LC, Quant 50.3 H, Free [place]/Lambda Ratio 1.74 H 06/10/24 12:34: POC Glucose 165 H 06/10/24 16:50: POC Glucose 171 H 06/10/24 17:45: Hgb 7.6 L 06/10/24 23:57: POC Glucose 176 H 06/11/24 05:45: WBC Cancelled, Corrected WBC Cancelled, RBC Cancelled, Hgb Cancelled, Hct Cancelled, MCV Cancelled, MCH Cancelled, MCHC Cancelled, RDW Std Deviation Cancelled, RDW Coeff of Ursula Cancelled, Plt Count Cancelled, MPV Cancelled, Immature Gran % (Auto) Cancelled, Neut % (Auto) Cancelled, Lymph % (Auto) Cancelled, [place] % (Auto) Cancelled, Eos % (Auto) Cancelled, Baso % (Auto) Cancelled, Absolute Neuts (auto) Cancelled, Absolute Lymphs (auto) Cancelled, Total Counted Cancelled, Neutrophils % (Manual) Cancelled, Band Neutrophils % Cancelled, Lymphocytes % (Manual) Cancelled, Monocytes % (Manual) Cancelled, Eosinophils % (Manual) Cancelled, Basophils % (Manual) Cancelled, Metamyelocytes % Cancelled, Myelocytes % Cancelled, Promyelocytes % Cancelled, Blast Cells % Cancelled, Plasma Cell % (Manual) Cancelled, Other Cells % Cancelled, Nucleated RBC % Cancelled, Nucleated RBCs/100 WBC Cancelled, Differential Comment Cancelled, Diff Path Review Cancelled, Hypersegmented Neuts Cancelled, Atypical Lymphocytes Cancelled, Reactive Lymphocytes Cancelled, Smudge Cells Cancelled, Toxic Granulation Cancelled, Toxic Vacuolation Cancelled, Dohle Bodies Cancelled, Kyree Rods Cancelled, Platelet Estimate Cancelled, Plt Morphology Comment Cancelled, RBC Morphology Cancelled 06/11/24 05:45: RBC Morphology Cancelled, Polychromasia Cancelled, Hypochromasia Cancelled, Basophilic Stippling Cancelled, Anisocytosis Cancelled, Microcytosis Cancelled, Macrocytosis Cancelled, Spherocytes Cancelled, Sickle Cells Cancelled, Target Cells Cancelled, Tear Drop Cells Cancelled, Ovalocytes Cancelled, Stomatocytes Cancelled, [place] Bodies Cancelled, [place] Cells Cancelled, Bite Cells Cancelled, Crenated Cell Cancelled, Acanthocytes (Spur) Cancelled, Rouleaux Cancelled, Schistocytes Cancelled, Sodium 140, Potassium 3.1 L, Chloride 108 H, Carbon Dioxide 27.0, Anion Gap 5, BUN 29 H, Creatinine 3.89 H , Estim Creat Clear Calc 13.90, Est GFR (MDRD) Af Amer 19 L, Est GFR (MDRD) Non- Af 16 L, BUN/Creatinine Ratio 7.5 L, Glucose 176 H, Calcium 13.2 H* 06/11/24 06:00: POC Glucose 150 H 06/11/24 06:32: WBC 7.9, RBC 2.55 L, Hgb 8.0 L, Hct 25.7 L, MCV 100.8 H, MCH 31.4, MCHC 31.1 L, RDW Std Deviation 63.5 H, RDW Coeff of Ursula 19.4 H, Plt Count 79 L, MPV 10.1, Immature Gran % (Auto) 1.800 H, Neut % (Auto) 75.0 H, Lymph % (Auto) 12.8 L, [place] % (Auto) 8.6, Eos % (Auto) 1.5, Baso % (Auto) 0.3, Absolute Neuts (auto) 5.9, Absolute Lymphs (auto) 1.01, Nucleated RBC % 0.5 06/11/24 06:44: Ionized Calcium 6.76 H Micro: Microbiology 06/09/24 15:30 Sputum, Induced/Lukens Gram Stain - Final 06/09/24 15:30 Sputum, Induced/Lukens Respiratory Culture - Final 06/11/24 05:40 Stool Stool Occult Blood (ZITA) - Final Imaging Radiology Impression Brain MRI 06/10/24 07:07 IMPRESSION: 1. No acute intracranial abnormality. 2. Stable chronic ischemic and senescent changes. Electronically Signed: Alexx Mitchell MD at 16:31 EDT , Assessment and Plan . Assessment and plan: HPI 79 yo chronically ill and immunosuppressed man admitted 06/01/24 w/ FTT at home. Stable, but ill and hypoactive on admission. UCX revealed GNR - treated w/ IV ABX. He has ESRD and required HD M/W/F. Course has been c/b persistent hypercalcemia despite HD. He remotely underwent OLTx and receives CellCept and Prograf. Prograf level obtained, but has not been resulted. He has had declining LOC and required O-T intubation and MV support 06/09/24. CT brain NAP. pCXR unremarkable. Lab o/w largely unremarkable. Currently sedated/unresponsive. HD stable. Modest MV requirement. He is awaiting TX to tertiary facility. 06/11/24 Sedated w/ fentanyl - report of spasticity when dose reduced Modest MV requirement - stable mechanics HD done yesterday Ca++ remains elevated MRI brain noted - no acute findings Some low grade fever - he is receiving multiple antimicrobials Still waiting for TX PHYSICAL EXAM GEN sedated, unresponsive VS as above HEENT VICKY, NGT NECK supple COR RRR CHEST CTA ABD soft EXT minimal edema SKIN w/d JENNIFER obtunded ASSESSMENT 1. Acute respiratory failure requiring MV support 2. Severe encephalopathy w/ stupor / coma 3. ESRD 4. Hypercalcemia 5. Remote OLTx - chronically received Cellcept and Prograf 6. DM 7. H/O VTED 8. UTI 9. 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
[2024-06-11] MEDS: Insulin Lispro 100 UNIT/ML INSULN.PEN SC ×2 (12:10→18:01)
[2024-06-11 12:29] LABS: Bedside Glucose 172 mg/dL (74-106)
--- NOTE | 2024-06-11 14:05 | PCM.PN.REN ---
Subjective Subjective On vent, no overnight events. Opens eyes. No acute distress noted. Objective Data Objective Data Vital Signs: Vital Signs Temp Pulse Resp BP Pulse Ox O2 Del Method FiO2 99.2 F H 79 16 105/52 L 100 Mechanical Ventilator 21 06/11/24 12:00 06/11/24 14:00 06/11/24 14:00 06/11/24 14:00 06/11/24 14:00 06/11/24 14:00 06/11/24 14:00 Oxygen Delivery Method Mechanical Ventilator Weight: 68.1 kg Body Mass Index (BMI) 23.6 Intake & Output: Intake and Output for Last 24 Hours 06/09/24 06/10/24 06/11/24 23:59 23:59 23:59 Intake Total 3578.0767 / 3730.5767 3863.4333 / 3870.9333 1699.62 / 1699.62 Output Total 1105 / 1105 40 / 40 Balance 3578.0767 / 3730.5767 2758.4333 / 2765.9333 1659.62 / 1659.62 Medical Nutrition Assessment Dietitian: Malnutrition Criteria Met Start: 06/04/24 13:41 Freq: Status: Active Protocol: Document 06/07/24 15:56 RMA (Rec: 06/07/24 15:56 RMA [id number]) Nutrition Malnutrition Evidence of Malnutrition Exists Yes Malnutrition (severe): Chronic Evidenced By Suboptimal Energy Intake ( Severe),Weight Loss (Severe) Intake Problem Inadequate Oral Intake Etiology related to lethargy, confusion and swallowing difficulty Signs/Symptoms as evidenced by NPO and need for enteral nutrition support Status Active Problem Clinical Problem Chronic Disease or Condition Related Malnutrition Etiology severe protein-calorie malnutrition in the context of chronic disease related to inadequate oral/energy intake and difficulty swallowing Signs/Symptoms as evidenced by BMI 24.5, approximately 25% unintentional weight loss x 13 months, PO meeting < 50% of estimated nutrition needs x 1 year, NPO and need for enteral nutrition support. Status Active Problem Recommendation Dietitian Recommendations/Changes Pt to remain NPO with NG placed for enteral nutrition support; will provide ~100% estimated nutrition needs via NG tube. Will continue TF of Nepro via NG tube to start at 15mL/hr and increase as tolerated by 10mL/hr Q 6-8 hours to goal rate 45 mL/hr. Flush with 120mL water Q 4 hours. TF at goal rate along with free water flushes will provide 1912 kcal, 87.5 gm pro and 1505 mL/ free water per day. Will adjust enteral nutrition support and flushes as needed. PO nutrition as tolerated if indicated otherwise provide all nutrition via NG tube to meet ~100% estimated nutrition needs. Lab / Micro Data 06/12/24 03:05 06/12/24 03:05 Labs: Laboratory Results - last 24 hr 06/08/24 06:09: Total Protein (PEP) 5.7 L, Globulin 2.3, IgG 897, IgA 136, IgM 27, Immunofixation Screen Comment:, Albumin (STEFAN) 3.4, Albumin/Globulin (STEFAN) 1.5, Ucesc-8-Vrlwqdkqh STEFAN 0.3, Goysr-0-Rtzrvzszt STEFAN 0.4, Beta-Globulins (STEFAN) 0.8, Gamma Globulins (STEFAN) 0.9, STEFAN M-Brent Not Observed, STEFAN Comments Comment 06/09/24 06:46: Free [place] LC, Quant 87.4 H, Free Lambda LC, Quant 50.3 H, Free [place]/Lambda Ratio 1.74 H 06/10/24 16:50: POC Glucose 171 H 06/10/24 17:45: Hgb 7.6 L 06/10/24 23:57: POC Glucose 176 H 06/11/24 05:45: WBC Cancelled, Corrected WBC Cancelled, RBC Cancelled, Hgb Cancelled, Hct Cancelled, MCV Cancelled, MCH Cancelled, MCHC Cancelled, RDW Std Deviation Cancelled, RDW Coeff of Ursula Cancelled, Plt Count Cancelled, MPV Cancelled, Immature Gran % (Auto) Cancelled, Neut % (Auto) Cancelled, Lymph % (Auto) Cancelled, Bertie % (Auto) Cancelled, Eos % (Auto) Cancelled, Baso % (Auto) Cancelled, Absolute Neuts (auto) Cancelled, Absolute Lymphs (auto) Cancelled, Total Counted Cancelled, Neutrophils % (Manual) Cancelled, Band Neutrophils % Cancelled, Lymphocytes % (Manual) Cancelled, Monocytes % (Manual) Cancelled, Eosinophils % (Manual) Cancelled, Basophils % (Manual) Cancelled, Metamyelocytes % Cancelled, Myelocytes % Cancelled, Promyelocytes % Cancelled, Blast Cells % Cancelled, Plasma Cell % (Manual) Cancelled, Other Cells % Cancelled, Nucleated RBC % Cancelled, Nucleated RBCs/100 WBC Cancelled, Differential Comment Cancelled, Diff Path Review Cancelled, Hypersegmented Neuts Cancelled, Atypical Lymphocytes Cancelled, Reactive Lymphocytes Cancelled, Smudge Cells Cancelled, Toxic Granulation Cancelled, Toxic Vacuolation Cancelled, Dohle Bodies Cancelled, Kyree Rods Cancelled, Platelet Estimate Cancelled, Plt Morphology Comment Cancelled, RBC Morphology Cancelled 06/11/24 05:45: RBC Morphology Cancelled, Polychromasia Cancelled, Hypochromasia Cancelled, Basophilic Stippling Cancelled, Anisocytosis Cancelled, Microcytosis Cancelled, Macrocytosis Cancelled, Spherocytes Cancelled, Sickle Cells Cancelled, Target Cells Cancelled, Tear Drop Cells Cancelled, Ovalocytes Cancelled, Stomatocytes Cancelled, [place] Bodies Cancelled, [place] Cells Cancelled, Bite Cells Cancelled, Crenated Cell Cancelled, Acanthocytes (Spur) Cancelled, Rouleaux Cancelled, Schistocytes Cancelled, Sodium 140, Potassium 3.1 L, Chloride 108 H, Carbon Dioxide 27.0, Anion Gap 5, BUN 29 H, Creatinine 3.89 H, Estim Creat Clear Calc 13.90, Est GFR (MDRD) Af Amer 19 L, Est GFR (MDRD) Non-Af 16 L, BUN/Creatinine Ratio 7.5 L, Glucose 176 H, Calcium 13.2 H* 06/11/24 06:00: POC Glucose 150 H 06/11/24 06:32: WBC 7.9, RBC 2.55 L, Hgb 8.0 L, Hct 25.7 L, MCV 100.8 H, MCH 31.4, MCHC 31.1 L, RDW Std Deviation 63.5 H, RDW Coeff of Ursula 19.4 H, Plt Count 79 L, MPV 10.1, Immature Gran % (Auto) 1.800 H, Neut % (Auto) 75.0 H, Lymph % (Auto) 12.8 L, Bertie % (Auto) 8.6, Eos % (Auto) 1.5, Baso % (Auto) 0.3, Absolute Neuts (auto) 5.9, Absolute Lymphs (auto) 1.01, Nucleated RBC % 0.5 06/11/24 06:44: Ionized Calcium 6.76 H 06/11/24 12:09: POC Glucose 172 H Micro: Microbiology 06/09/24 15:30 Sputum, Induced/Lukens Gram Stain - Final 06/09/24 15:30 Sputum, Induced/Lukens Respiratory Culture - Final 06/11/24 05:40 Stool Stool Occult Blood (ZITA) - Final 06/09/24 07:10 Gastric Fluid/Contents Gastric Occult Blood - Final 06/01/24 13:16 Urine, Clean Catch Urine Culture - Final Klebsiella pneumoniae sp pneum Radiography Diagnostic Testing: Radiology Impression Brain MRI 06/10/24 07:07 IMPRESSION: 1. No acute intracranial abnormality. 2. Stable chronic ischemic and senescent changes. Electronically Signed: Alexx Mitchell MD at 16:31 EDT , Physical Exam Narrative On vent supports S1, S2, RRR Lung sounds clear anteriorly Abdomen soft, nontender No edema indwelling [place] with scant yellow urine in tubing Right IJ tunneled hemodialysis catheter dressing clean, dry and intact Right mid arm AV fistula with good thrill and bruit. Sutures intact Assessment & Plan Assessment/Plan (1) ESRD (end stage renal disease) on dialysis: (2) General weakness: (3) Anemia of chronic disease: PLAN: Plan Impression/Plan: The patient is a 79-year-old male with past medical history significant for ESRD who dialyzes at [facility] [place] Saturday. 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 The patient was brought to the emergency room for evaluation of weakness and difficulty standing. He is admitted for evaluation of debility and diarrhea. Continue HD on MWF schedule while he is in the hospital. - ESRD on HD MWF; No acute indication for [employer] today, next HD tomorrow with same dialysis orders we have been using all week on 3 calcium bath which is only calcium bath available at this time. We have been maintaining a MWF HD schedule in hospital. Outpatient edw 73.8kg. Patient will have new lowered edw. Using TDC for dialysis however patient had creation right arm AV fistula 05/05/2024 (fistula is not mature for cannulating at this time). - anemia of chronic disease; receiving SERVANDO with HD. Following hemoglobin trends - Hypercalcemia. Ongoing issue. Calcium peaked at 14.9 on 06/10 and today improved to 13.2. PTH 228 which is not too bad for ESRD status. Vitamin D 25-hydroxy and 1,25-hydroxy vitamin D are normal. Serum protein electrophoresis negative. [place] and lambda light chain assay not impressive. PTH RP is pending. Only remaining test would be a bone scan to rule out humeral hypercalcemia. CT chest and abdomen not impressive for any malignancy so far. Received pamidronate 06/09. Today will hold off on denosumab since calcium has somewhat improved today. Labs ordered for am. - Acute respiratory failure secondary to altered mentation and inability to protect airway. Intubated 06/09. - History of alcoholic liver cirrhosis status post liver transplant 2007. Awaiting transfer to [facility].
--- NOTE | 2024-06-11 15:07 | PCM.PN.HOSP ---
Reason for Visit Reason for Visit: Generalized weakness Subjective Subjective No issues overnight. Patient does get somewhat agitated with sedation vacations but doing well with fentanyl only so far. Calcium a bit better today so we will hold off on Prolia and reevaluate tomorrow. Still awaiting bed occlusion clinic [facility]. Has been waiting currently for 7 days. Mental status is still poor when he is on his sedation holiday. Objective Data Objective Data Vital Signs: Vital Signs Temp Pulse Resp BP Pulse Ox O2 Del Method FiO2 99.2 F H 79 16 105/52 L 100 Mechanical Ventilator 06/11/24 12:00 06/11/24 14:00 06/11/24 14:00 06/11/24 14:00 06/11/24 14:00 06/11/24 14:00 06/11/24 14:00 Oxygen Delivery Method Mechanical Ventilator Weight: 68.1 kg Body Mass Index (BMI) 23.6 Intake & Output: Intake and Output for Last 24 Hours 06/09/24 06/10/24 06/11/24 23:59 23:59 23:59 Intake Total 3578.0767 / 3730.5767 3863.4333 / 3870.9333 1749.62 / 1749.62 Output Total 1105 / 1105 40 / 40 Balance 3578.0767 / 3730.5767 2758.4333 / 2765.9333 1709.62 / 1709.62 Medical Nutrition Assessment Dietitian: Malnutrition Criteria Met Start: 06/04/24 13:41 Freq: Status: Active Protocol: Document 06/07/24 15:56 RMA (Rec: 06/07/24 15:56 RMA [id number]) Nutrition Malnutrition Evidence of Malnutrition Exists Yes Malnutrition (severe): Chronic Evidenced By Suboptimal Energy Intake ( Severe),Weight Loss (Severe) Intake Problem Inadequate Oral Intake Etiology related to lethargy, confusion and swallowing difficulty Signs/Symptoms as evidenced by NPO and need for enteral nutrition support Status Active Problem Clinical Problem Chronic Disease or Condition Related Malnutrition Etiology severe protein-calorie malnutrition in the context of chronic disease related to inadequate oral/energy intake and difficulty swallowing Signs/Symptoms as evidenced by BMI 24.5, approximately 25% unintentional weight loss x 13 months, PO meeting < 50% of estimated nutrition needs x 1 year, NPO and need for enteral nutrition support. Status Active Problem Recommendation Dietitian Recommendations/Changes Pt to remain NPO with NG placed for enteral nutrition support; will provide ~100% estimated nutrition needs via NG tube. Will continue TF of Nepro via NG tube to start at 15mL/hr and increase as tolerated by 10mL/hr Q 6-8 hours to goal rate 45 mL/hr. Flush with 120mL water Q 4 hours. TF at goal rate along with free water flushes will provide 1912 kcal, 87.5 gm pro and 1505 mL/ free water per day. Will adjust enteral nutrition support and flushes as needed. PO nutrition as tolerated if indicated otherwise provide all nutrition via NG tube to meet ~100% estimated nutrition needs. Lab / Micro Data 06/11/24 06:32 06/11/24 05:45 Labs: Laboratory Results - last 24 hr 06/09/24 06:46: Free [place] LC, Quant 87.4 H, Free Lambda LC, Quant 50.3 H, Free [place]/Lambda Ratio 1.74 H 06/10/24 16:50: POC Glucose 171 H 06/10/24 17:45: Hgb 7.6 L 06/10/24 23:57: POC Glucose 176 H 06/11/24 05:45: WBC Cancelled, Corrected WBC Cancelled, RBC Cancelled, Hgb Cancelled, Hct Cancelled, MCV Cancelled, MCH Cancelled, MCHC Cancelled, RDW Std Deviation Cancelled, RDW Coeff of Ursula Cancelled, Plt Count Cancelled, MPV Cancelled, Immature Gran % (Auto) Cancelled, Neut % (Auto) Cancelled, Lymph % (Auto) Cancelled, [place] % (Auto) Cancelled, Eos % (Auto) Cancelled, Baso % (Auto) Cancelled, Absolute Neuts (auto) Cancelled, Absolute Lymphs (auto) Cancelled, Total Counted Cancelled, Neutrophils % (Manual) Cancelled, Band Neutrophils % Cancelled, Lymphocytes % (Manual) Cancelled, Monocytes % (Manual) Cancelled, Eosinophils % (Manual) Cancelled, Basophils % (Manual) Cancelled, Metamyelocytes % Cancelled, Myelocytes % Cancelled, Promyelocytes % Cancelled, Blast Cells % Cancelled, Plasma Cell % (Manual) Cancelled, Other Cells % Cancelled, Nucleated RBC % Cancelled, Nucleated RBCs/100 WBC Cancelled, Differential Comment Cancelled, Diff Path Review Cancelled, Hypersegmented Neuts Cancelled, Atypical Lymphocytes Cancelled, Reactive Lymphocytes Cancelled, Smudge Cells Cancelled, Toxic Granulation Cancelled, Toxic Vacuolation Cancelled, Dohle Bodies Cancelled, Kyree Rods Cancelled, Platelet Estimate Cancelled, Plt Morphology Comment Cancelled, RBC Morphology Cancelled 06/11/24 05:45: RBC Morphology Cancelled, Polychromasia Cancelled, Hypochromasia Cancelled, Basophilic Stippling Cancelled, Anisocytosis Cancelled, Microcytosis Cancelled, Macrocytosis Cancelled, Spherocytes Cancelled, Sickle Cells Cancelled, Target Cells Cancelled, Tear Drop Cells Cancelled, Ovalocytes Cancelled, Stomatocytes Cancelled, [place] Bodies Cancelled, Og Cells Cancelled, Bite Cells Cancelled, Crenated Cell Cancelled, Acanthocytes (Spur) Cancelled, Rouleaux Cancelled, Schistocytes Cancelled, Sodium 140, Potassium 3.1 L, Chloride 108 H, Carbon Dioxide 27.0, Anion Gap 5, BUN 29 H, Creatinine 3.89 H, Estim Creat Clear Calc 13.90, Est GFR (MDRD) Af Amer 19 L, Est GFR (MDRD) Non-Af 16 L, BUN/Creatinine Ratio 7.5 L, Glucose 176 H, Calcium 13.2 H* 06/11/24 06:00: POC Glucose 150 H 06/11/24 06:32: WBC 7.9, RBC 2.55 L, Hgb 8.0 L, Hct 25.7 L, MCV 100.8 H, MCH 31.4, MCHC 31.1 L, RDW Std Deviation 63.5 H, RDW Coeff of Ursula 19.4 H, Plt Count 79 L, MPV 10.1, Immature Gran % (Auto) 1.800 H, Neut % (Auto) 75.0 H, Lymph % (Auto) 12.8 L, [place] % (Auto) 8.6, Eos % (Auto) 1.5, Baso % (Auto) 0.3, Absolute Neuts (auto) 5.9, Absolute Lymphs (auto) 1.01, Nucleated RBC % 0.5 06/11/24 06:44: Ionized Calcium 6.76 H 06/11/24 12:09: POC Glucose 172 H Micro: Microbiology 06/09/24 15:30 Sputum, Induced/Lukens Gram Stain - Final 06/09/24 15:30 Sputum, Induced/Lukens Respiratory Culture - Final 06/11/24 05:40 Stool Stool Occult Blood (ZITA) - Final 06/09/24 07:10 Gastric Fluid/Contents Gastric Occult Blood - Final 06/01/24 13:16 Urine, Clean Catch Urine Culture - Final Klebsiella pneumoniae sp pneum Radiography Diagnostic Testing: Radiology Impression Brain MRI 06/10/24 07:07 IMPRESSION: 1. No acute intracranial abnormality. 2. Stable chronic ischemic and senescent changes. Electronically Signed: Alexx Mitchell MD at 16:31 EDT , Physical Exam Const no apparent distress and average body habitus; Negative for healthy appearing Constitutional Narrative: Elderly, white male, lying in bed intubated and sedated, appears comfortable, does not look toxic HEENT normocephalic, head/scalp atraumatic and moist oral mucous membranes HEENT Narrative: ET tube and NG in place Eyes Eyes Narrative: Pale conjunctiva bilaterally, no scleral icterus, pupils are somewhat constricted bilaterally due to fentanyl use Neck no lymphadenopathy and supple Neck Narrative: Trachea midline Resp normal respiratory effort, normal air movement, no retractions, no use of accessory muscles and clear to auscultation bilaterally Resp Narrative: Comfortable breathing on the ventilator, rhonchi have resolved Auscultation: Negative for rales, rhonchi or wheezes Cardio regular rate, regular rhythm, S1 normal heart sound, S2 normal heart sound, no murmurs, no rub, no gallops and no clicks GI normal to inspection, nondistended, normoactive bowel sounds, soft to palpation and non-tender Extremity no clubbing, cyanosis or edema Extremity Narrative: Pedal pulses and radial pulses are 2+ Skin no jaundice, no petechiae and no mottling Skin Narrative: Dialysis catheter in right chest-clean dry and intact Neuro Neuro Narrative: Intubated and sedated, hyperreflexive throughout Psych Psych Narrative: Unable to assess due to intubation and sedation Assessment & Plan Assessment/Plan (1) Failure to thrive: (2) General weakness: (3) Hypercalcemia: (4) Toxic metabolic encephalopathy: PLAN: Plan Acute respiratory failure secondary to altered mentation and decreased ability to protect airway -Intubated on 06/09/2024 for airway protection with decreased mentation and increased respiratory distress -Will avoid propofol for sedation with hypercalcemia -Continue fentanyl for sedation--> sedation appears to be adequate at this time with fentanyl only -MRI of the brain unchanged from previous -Hold tacrolimus per critical care medicine recommendations despite normal level as there is documented neurotoxicity despite normal levels -Check EEG -Consult neurology -Mental status will probably be rate limiting step to extubation -Pulmonary/critical care medicine following Aspiration pneumonia -Culture finalized as polymicrobial -Continue Zosyn and discontinue vancomycin -Day 2 of 7 for antibiotics Generalized weakness/debility -Suspect multifactorial -CT of the brain unremarkable for any acute findings -MRI shows only previous strokes -Continue PT/OT/speech therapy as able after extubation -NG in place and will continue tube feeds -Initial plan was for transfer to [facility] with liver service consultation as patient has 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 -Still awaiting transfer to [facility] now the patient is intubated End-stage renal disease -Dialysis dependent -Vascular surgery was consulted for suture removals for AV fistula that was created on 05/05/2024 -Vascular surgery has been unable to see him and sutures -->discussed with Vascular and ok to hold off until acute issues have resolved -AV fistula is not usable at this point -Right stage I basilic fistula creation was performed on 05/05/2024 -Continue dialysis per vascular access in the form of tunneled dialysis catheter in right chest -Nephrology is following -Continue home sodium bicarb Severe hypercalcemia -Patient did have a slight drop in calcium today but I anticipate is related to pamidronate given on 06/09 -Calcium 14.9 06/10--> 13.2 06/11--> repeat in a.m. -Imaging thus far is unremarkable for any tumors that could induce hypercalcemia -Check three-phase bone scan -PTH is not markedly elevated for patient on dialysis -STEFAN, kappa and lambda are slightly elevated but appropriate for end-stage renal disease -Vitamin D 25 and vitamin D 1-25 are within normal limits -PTH RP remains grossly pending -Highly suspect this is contributing to his altered mental status -Patient did receive 2 doses of calcitonin at 200 units on 06/06/2024 and 400 units on 06/07/2024 and this appears to be nonresponsive to the calcitonin -1 dose of pamidronate given on 06/09/2024 per nephrology recs. 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 Toxic/metabolic encephalopathy -Related to the above -CT brain was unremarkable -MRI was unremarkable -Should improve once we can correct his electrolyte abnormalities -Tacrolimus level was within normal limits however critical care medicine recommended holding the drug as you can still neurotoxicity with normal levels so drug is currently on hold Klebsiella UTI -Treatment completed Pericardial effusion -CT of the chest showed moderate effusion--> follow-up echocardiogram showed EF of 65% with stage I diastolic dysfunction, moderate concentric LVH and small to medium sized pericardial effusion with no evidence of tamponade -Likely has mild pericardial effusion related to his renal dysfunction Hypokalemia -Replace with 40 mill equivalents p.o. via NG and recheck in a.m. Hypophosphatemia -Resolved History of alcoholic liver cirrhosis status post transplant - reports transplant 2007 -Ammonia is normal -Will continue lactulose 3 times daily -We have had to hold his CellCept due to inability to crush and placed on NG -Tacrolimus level was normal but on hold due to the above recommendations from critical care medicine History of atrial fibrillation -Continue home carvedilol via G-tube -Will hold diltiazem with intubation and sedation his blood pressures may be lower -Patient does not appear to be chronically anticoagulated at baseline History of stroke -Patient with multifocal strokes on imaging -Appears to have significant small vessel disease as well -Continue home aspirin via NG -Continue to address modifiable risk factors as able Essential hypertension -Patient is on midodrine at home currently on hold as blood pressures have been elevated -Continue carvedilol -Continue to hold diltiazem -Continue home hydralazine -As needed hydralazine available GERD -IV PPI twice daily BPH with obstruction -Flomax on hold due to the fact that it is not crushable -Patient does still make some urine Pancytopenia -White count is up and stable with left shift present -Continue to monitor -Hemoglobin and platelet counts fluctuate but overall relatively stable -Gastroccult and Hemoccult negative DM-2 -Continue basal insulin at 10 units (home dose 4 units)--> continue for today but if further trend up tomorrow will increase dose -Blood sugar control is improved with fasting sugar this morning at 176 -Continue to monitor and adjust insulins as needed -Continue SSI every 6 -Patient is on tube feed at goal rate Hyperlipidemia -Continue home statin Depression -Continue home sertraline DVT/GI prophylaxis -Continue subcu heparin every 8 -Protonix 40 mg daily CODE STATUS -Full code Charges/Coding Visit Charges Inpatient E&M: 77551 [facility]osp L3
[2024-06-11] MEDS: Metoclopramide 10 MG/2 ML Vial 5 MG IV (16:10)
[2024-06-11 18:48] LABS: Bedside Glucose 195 mg/dL (74-106)
[2024-06-11] MEDS: MELATONIN 10 MG TABLET NG (20:03)
[2024-06-11] MEDS: Atorvastatin Calcium 40 MG Tablet NG (20:03)
[2024-06-11] MEDS: Heparin Injection (Vial) 5,000 UNIT/ML VIAL 5000 UNIT SC (20:03)
[2024-06-11] MEDS: Tamsulosin HCl 0.4 MG Capsule PO (20:04)
[2024-06-11] MEDS: fentaNYL drip 100 ML 10 MCG CONT INF (21:16)
[2024-06-11 23:59] LABS: Bedside Glucose 123 mg/dL (74-106)
[2024-06-12] VITALS (46 sets, daily range): BP systolic 95–180; BP diastolic 53–102; PULSE 78–107; RESP 13–23; TEMP 36.3–38.1; O2SAT 95–100; BMI 23.8; BMI 23.2
[2024-06-12 03:19] LABS: Absolute Neutrophil Count 5.4 X10^3/uL (2.0-7.7); Basophil# 0.02 X10^3/uL; Basophil% 0.3 % (0-1); Eosinophil# 0.24 X10^3/uL; Eosinophils% 3.3 % (0-5); Hematocrit 23.8 % (40-54); Hemoglobin 7.4 g/dL (13.0-16.5); Lymphocyte % 11.1 % (19-41); Mean Corp Hgb Conc 31.1 g/dL (32-36); Mean Corpuscular Hgb 31.4 pg (27.0-32.0); Mean Corpuscular Volume 100.8 fL (80-94); Mean Platelet Vol. 10.1 fl (6.2-12.0); Monocyte# 0.64 X10^3/uL; Monocyte% 8.9 % (0-10); NRBC Flagged by Analyzer 0.6 % (0-5); Neutrophil # 5.35 X10^3/uL (2.7-7.7); Neutrophil % 74.5 % (47-70); POSITIVE COUNT YES; Platelet Count 74 K/mm3 (150-450); RBC Distribution Width SD 64.3 fl (35.1-43.9); Red Blood Count 2.36 M/mm3 (4.6-6.2); White Blood Count 7.2 K/mm3 (4.4-11.0)
[2024-06-12 03:41] LABS: Anion Gap 7 (5-15); BUN 36 mg/dL (7-18); BUN/Creat Ratio 7.6 RATIO (10-20); Chloride 111 mmol/L (98-107); Creatinine, Serum 4.74 mg/dL (0.70-1.30); EST Glomerular Filtration Rate 13 mL/min (>60); Est Glom Filt Rate - Afr Amer 15 mL/min (>60); Glucose 141 mg/dL (74-106); Potassium 3.5 mmol/L (3.5-5.1); Sodium Level 143 mmol/L (136-145)
[2024-06-12 03:42] LABS: Calcium,Total 12.9 mg/dL (8.5-10.1)
[2024-06-12] MEDS: fentaNYL drip 100 ML 12.5 MCG CONT INF (05:04)
--- NOTE | 2024-06-12 06:30 | RAD_ITS ---
INDICATION: ARF EXAMINATION/TECHNIQUE: X-RAY - XR Chest 1 View COMPARISON: 06/10/2024 FINDINGS: The lungs are unchanged. The cardiomediastinal silhouette is stable. Unchanged position of lines and tubes. Stable small left pleural effusion. No pneumothorax. The osseous structures are unchanged. RAD/Chest 1 View (Portable) IMPRESSION: No change from prior study. Electronically Signed: Lavell Leon MD at 16:27 EDT ,
[2024-06-12] MEDS: Sodium Bicarbonate 650 MG Tablet NG ×3 (06:33→21:04)
[2024-06-12] MEDS: Heparin Injection (Vial) 5,000 UNIT/ML VIAL 5000 UNIT SC ×3 (06:33→21:03)
[2024-06-12] MEDS: Lactulose 20 GM/30 ML UDC 30 GM NG ×3 (06:33→21:02)
[2024-06-12 06:54] LABS: Bedside Glucose 135 mg/dL (74-106)
[2024-06-12] MEDS: 0.9% Normal Saline 1,000 ML IV.SOLN. 1000 ML OPERA.SITE (08:05)
[2024-06-12] MEDS: PureFlow B 3K Dialysis Soln 1 BAG 6 BAG PF (08:07)
[2024-06-12] MEDS: 0.9% Saline Lock 10 ML Syringe IV (08:08)
--- NOTE | 2024-06-12 10:00 | PN.RENAL_ITS ---
Documented by User: BELLO Ryan 06/12/24 10:13 Subjective Subjective Patient seen and examined on hemodialysis this morning. No overnight events. Family at bedside. Patient opens eyes. Objective Data Objective Data Vital Signs: Vital Signs Temp Pulse Resp BP Pulse Ox O2 Del Method FiO2 97.4 F L 99 17 113/69 97 Mechanical Ventilator 21 06/12/24 09:30 06/12/24 09:45 06/12/24 09:45 06/12/24 09:45 06/12/24 09:45 06/12/24 09:45 06/12/24 09:45 Oxygen Delivery Method Mechanical Ventilator Weight: 68.7 kg Body Mass Index (BMI) 23.8 Intake & Output: Intake and Output for Last 24 Hours 06/10/24 06/11/24 06/12/24 23:59 23:59 23:59 Intake Total 3863.4333 / 3870.9333 2380.83 / 2490.83 302.50 / 302.50 Output Total 1105 / 1105 70 / 95 50 / 50 Balance 2758.4333 / 2765.9333 2310.83 / 2395.83 252.50 / 252.50 Medical Nutrition Assessment Dietitian: Malnutrition Criteria Met Start: 06/04/24 13:41 Freq: Status: Active Protocol: Document 06/12/24 09:39 REBECA (Rec: 06/12/24 09:39 REBECA [id number]) Nutrition Malnutrition Evidence of Malnutrition Exists Yes Malnutrition (severe): Chronic Evidenced By Suboptimal Energy Intake ( Severe),Weight Loss (Severe) Intake Problem Inadequate Oral Intake Etiology related to pt on vent and swallowing difficulty Signs/Symptoms as evidenced by NPO and need for enteral nutrition support Status Active Problem Clinical Problem Chronic Disease or Condition Related Malnutrition Etiology severe protein-calorie malnutrition in the context of chronic disease related to inadequate oral/energy intake and difficulty swallowing Signs/Symptoms 25% unintentional weight loss x 13 months, 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 Will restart TF of Nepro via NG tube to start at 15mL/hr and increase as tolerated by 10mL/hr Q 6-8 hours to goal rate 45 mL/hr. Flush with 120mL water Q 4 hours. TF at goal rate along with free water flushes will provide 1912 kcal, 87.5 gm pro and 1505 mL/ free water per day. Will adjust enteral nutrition support and flushes as needed. Lab / Micro Data 06/12/24 03:05 06/12/24 03:05 Labs: Laboratory Results - last 24 hr 06/11/24 12:09: POC Glucose 172 H 06/11/24 17:59: POC Glucose 195 H 06/11/24 23:40: POC Glucose 123 H 06/12/24 03:05: WBC 7.2, RBC 2.36 L, Hgb 7.4 L, Hct 23.8 L, MCV 100.8 H, MCH 31.4, MCHC 31.1 L, RDW Std Deviation 64.3 H, RDW Coeff of Ursula 20.0 H, Plt Count 74 L, MPV 10.1, Immature Gran % (Auto) 1.900 H, Neut % (Auto) 74.5 H, Lymph % (Auto) 11.1 L, Hart % (Auto) 8.9, Eos % (Auto) 3.3, Baso % (Auto) 0.3, Absolute Neuts (auto) 5.4, Absolute Lymphs (auto) 0.80 L, Nucleated RBC % 0.6, Sodium 143, Potassium 3.5, Chloride 111 H, Carbon Dioxide 25.0, Anion Gap 7, BUN 36 H, Creatinine 4.74 H, Estim Creat Clear Calc 11.40, Est GFR (MDRD) Af Amer 15 L, E st GFR (MDRD) Non-Af 13 L, BUN/Creatinine Ratio 7.6 L, Glucose 141 H, Calcium 12.9 H* 06/12/24 06:35: POC Glucose 135 H Micro: Microbiology 06/09/24 15:30 Sputum, Induced/Lukens Gram Stain - Final 06/09/24 15:30 Sputum, Induced/Lukens Respiratory Culture - Final 06/11/24 05:40 Stool Stool Occult Blood (ZITA) - Final 06/09/24 07:10 Gastric Fluid/Contents Gastric Occult Blood - Final 06/01/24 13:16 Urine, Clean Catch Urine Culture - Final Klebsiella pneumoniae sp pneum Physical Exam Narrative On ventilator S1, S2, RRR Lung sounds clear anteriorly Abdomen soft, nontender No edema indwelling quezada with scant yellow urine in tubing Right IJ tunneled hemodialysis catheter dressing clean, dry and intact Right mid arm AV fistula with good thrill and bruit. Sutures intact Assessment & Plan Assessment/Plan (1) ESRD (end stage renal disease) on dialysis: (2) General weakness: (3) Anemia of chronic disease: PLAN: Plan Impression/Plan: The patient is a 79-year-old male with past medical history significant for ESRD who dialyzes at [facility] [place] Saturday. 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 The patient was brought to the emergency room for evaluation of weakness and difficulty standing. He is admitted for evaluation of debility and diarrhea. Continue HD on MWF schedule while he is in the hospital. - ESRD on HD MWF; patient undergoing hemodialysis today on 3 calcium bath which is only calcium bath available at this time, should be able to get 1 L fluid removal with dialysis today. Had been attempting a little more UF but due to lower blood pressures fluid goal was back down. We have been maintaining a MWF HD schedule in hospital. Outpatient edw 73.8kg. Patient will have new lowered edw. Using TDC for dialysis however patient had creation right arm AV fistula 05/05/2024 (fistula is not mature for cannulating at this time); per nursing vascular evaluated AV fistula and recommended for sutures to be kept intact at this time until acute issues resolved. - anemia of chronic disease; receiving SERVANDO with HD today, 24748 units. Following hemoglobin trends - Hypercalcemia. Ongoing issue. Calcium peaked at 14.9 on 06/10 and today improved to 12.9. PTH 228 which is not too bad for ESRD status. Vitamin D 25- hydroxy and 1,25-hydroxy vitamin D normal. Serum protein electrophoresis negative. [place] and lambda light chain assay not impressive. PTH RP is pending . CT chest and abdomen not impressive for any malignancy so far. Received pamidronate 06/09. Hold off on denosumab since calcium has somewhat improved again today. - Acute respiratory failure secondary to altered mentation and inability to protect airway. Intubated 06/09. - History of alcoholic liver cirrhosis status post liver transplant 2007. Awaiting transfer to [facility]. Documented by User: Dr. Evelia Negron MD 06/12/24 17:52 Objective Data Lab / Micro Data 06/12/24 03:05 06/12/24 03:05 Assessment & Plan Assessment/Plan (1) ESRD (end stage renal disease) on dialysis: (2) General weakness: (3) Anemia of chronic disease: PLAN: Plan Impression/Plan: The patient is a 79-year-old male with past medical history significant for ESRD who dialyzes at [facility] Saturday. 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 The patient was brought to the emergency room for evaluation of weakness and difficulty standing. He is admitted for evaluation of debility and diarrhea. Continue HD on MWF schedule while he is in the hospital. - ESRD on HD MWF; patient undergoing hemodialysis today on 3 calcium bath which is only calcium bath available at this time, should be able to get 1 L fluid removal with dialysis today. Had been attempting a little more UF but due to lower blood pressures fluid goal was back down. We have been maintaining a MWF HD schedule in hospital. Outpatient edw 73.8kg. Patient will have new lowered edw. Using TDC for dialysis however patient had creation right arm AV fistula 05/05/2024 (fistula is not mature for cannulating at this time); per nursing vascular evaluated AV fistula and recommended for sutures to be kept intact at this time until acute issues resolved. - anemia of chronic disease; receiving SERVANDO with HD today, 89354 units. Following hemoglobin trends - Hypercalcemia. Ongoing issue. Calcium peaked at 14.9 on 06/10 and today improved to 12.9. PTH 228 which is not too bad for ESRD status. Vitamin D 25- hydroxy and 1,25-hydroxy vitamin D normal. Serum protein electrophoresis negative. [place] and lambda light chain assay not impressive. PTH RP is pending . CT chest and abdomen not impressive for any malignancy so far. Received pamidronate 06/09. Hold off on denosumab since calcium has somewhat improved again today. - Acute respiratory failure secondary to altered mentation and inability to protect airway. Intubated 06/09. - History of alcoholic liver cirrhosis status post liver transplant 2007. Awaiting transfer to [facility]. Nephrology attending addendum: The patient seen and examined independently. I agree with RUFUS assessment and plan as documented above. Impression/Plan: The patient is a 79-year-old male with past medical history significant for ESRD who dialyzes at [facility] Saturday. 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 The patient was brought to the emergency room for evaluation of weakness and difficulty standing. He is admitted for evaluation of debility and diarrhea. The patient is also being treated for acute hypoxic respiratory failure due to aspiration pneumonia. He was intubated on 06/09/2024 and is being treated for pneumonia with antibiotic. He is awaiting transfer to [facility] for evaluation of ongoing encephalopathy. Nephrology is following patient for ESRD as well as hypercalcemia. ESRD Patient undergoing hemodialysis today with fluid removal as patient and BP tolerates. The patient was dialyzed earlier today. He remains hemodynamically stable. Will plan for dialysis again on 06/15/2024 as outpatient dialysis schedule is Saturday. He has been tolerating dialysis relatively well. I do not think encephalopathy is related to ESRD. Hypercalcemia. Serum calcium was as high as 14.9 mg/dL on 06/10/2024. Patient was treated with renal adjusted dose of the pamidronate on 06/09/2024. Calcium level is better today at 12.9 mg/dL. Agree with holding off on denosumab. Randall Galvan MD
[2024-06-12] MEDS: Epoetin Alfa epbx 10,000 UNIT/ML 20000 UNIT IV (10:32)
[2024-06-12] MEDS: Heparin 10,000 UNITS/10 ML Vial IV (10:35)
[2024-06-12] MEDS: Menthol/Lanolin/Calamine/Znox 113 GM Tube 1 APPLIC TOPICAL ×2 (11:03→21:01)
[2024-06-12] MEDS: Chlorhexidine 15 ML PO ×2 (11:04→21:31)
[2024-06-12] MEDS: Nystatin Powder 15gm Bottle 1 APPLIC TOPICAL ×2 (11:04→21:06)
[2024-06-12] MEDS: CHLORHEXIDINE GLUC 2% CLOTH 1 EACH TOWELETTE TOPICAL (11:04)
[2024-06-12] MEDS: NYSTATIN 500,000 UNIT/5 ML UDC 500000 UNIT PO ×4 (11:05→21:03)
[2024-06-12] MEDS: Sertraline 50 MG Tablet 25 MG NG (11:05)
[2024-06-12] MEDS: Pyridoxine HCl 100 MG Tablet PO (11:05)
[2024-06-12] MEDS: Clopidogrel Bisulfate 75 MG Tablet NG (11:07)
[2024-06-12] MEDS: Pantoprazole Sodium 40 MG in 0.9% Normal Saline (100mL MB+) 100 ML 330 MG IV ×2 (11:15→21:04)
[2024-06-12] MEDS: Metoclopramide 10 MG/2 ML Vial 5 MG IV ×2 (11:15→21:04)
--- NOTE | 2024-06-12 11:49 | PCM.PN.TICU ---
Objective Data Objective Data Vital Signs: Vital Signs Last response Temperature 36.6 C 06/12/24 10:53 Temperature Source Core 06/12/24 10:53 Pulse Rate 90 06/12/24 11:41 Pulse Strength Normal (2+) 06/12/24 10:00 Respiratory Rate 14 06/12/24 11:41 Respiratory Effort Mechanically Ventilated 06/12/24 10:53 Respiratory Depth Normal 06/12/24 04:00 Respiratory Pattern Normal 06/12/24 04:00 Blood Pressure 129/68 H 06/12/24 10:53 Blood Pressure Mean 88 06/12/24 10:53 Blood Pressure Source Monitor 06/12/24 10:53 Blood Pressure Position Semi-Fowlers 06/12/24 10:53 Blood Pressure Location Left Arm 06/12/24 10:53 Pulse Ox 100 06/12/24 11:41 Oxygen Delivery Method Mechanical Ventilator 06/12/24 10:53 Fraction of Inspired Oxygen (FIO2) 21 06/12/24 11:41 I&O: I&O Last 24 Hours 06/11/24 06/11/24 06/12/24 11:59 23:59 11:59 Intake Total 909.62 / 2490.83 1471.21 / 2490.83 327.50 / 327.50 Output Total 45 / 95 1350 / 1350 Balance 884.62 / 2395.83 1426.21 / 2395.83 -1022.50 / -1022.50 I&O: Total Stay 06/01/24 11:01 thru 06/12/24 11:00 Intake Total 49222.9200 Output Total 19180 Balance 3811.9200 Current Meds Ordered / Administered: Current meds ordered / Administered Generic Name Dose Route Start Last Admin Trade Name Freq PRN Reason Stop Dose Admin Acetaminophen 650 mg 06/05/24 21:17 06/09/24 20:47 Acetaminophen 650 Mg/20 Ml Udc NG 650 mg Q6H PRN PRN Administration Pain 1-10 Or Fever >100.7 Atorvastatin Calcium 40 mg 06/05/24 22:00 06/11/24 20:03 Atorvastatin Calcium 40 Mg Tablet NG 40 mg QHS HIRAM Administration Calamine/Phenol 1 applic 06/01/24 22:00 06/12/24 11:03 Menthol/Lanolin/Calamine/Znox 113 Gm Tube TOPICAL 1 applic BID HIRAM Administration Protocol Carvedilol 25 mg 06/08/24 22:00 06/09/24 21:22 Carvedilol 25 Mg Tablet NG Not Given BID [facility] Protocol Chlorhexidine Gluconate 1 each 06/11/24 10:00 06/12/24 11:04 Chlorhexidine Gluc 2% Cloth 1 Each [place] TOPICAL 1 each DAILY HIRAM Administration Chlorhexidine Gluconate 15 ml 06/10/24 22:00 06/12/24 11:04 Chlorhexidine 15 Ml PO 15 ml BID HIRAM Administration Clopidogrel Bisulfate 75 mg 06/06/24 10:00 06/12/24 11:07 Clopidogrel Bisulfate 75 Mg Tablet NG 75 mg DAILY HIRAM Administration Glucagon 1 mg 06/01/24 19:28 Glucagon 1 Mg/Ml Syringe IM X1 PRN Hypoglycemia Protocol Hemodialysis Solution 6 bag 06/12/24 07:00 06/12/24 08:07 Pureflow B 3k Dialysis Soln 1 Bag PF 06/12/24 18:54 5 bag UD HIRAM Administration Protocol Heparin Sodium (Porcine) 5,000 unit 06/05/24 14:00 06/12/24 06:33 Heparin Injection (Vial) 5,000 Unit/Ml Vial SC 5,000 unit Q8 HIRAM Administration Heparin Sodium (Porcine) 1,000 - 3,000 units 06/12/24 06:52 06/12/24 10:35 Heparin 10,000 Units/10 Ml Vial IV 06/12/24 18:52 1,700 units X1 PRN Administration HD catheter closing Hydralazine HCl 50 mg 06/05/24 22:00 06/09/24 21:22 Hydralazine 50 Mg Tablet NG Not Given Q12 [facility] Protocol Hydralazine HCl 10 mg 06/06/24 07:22 06/06/24 12:08 Hydralazine 20 Mg/Ml Vial IV 10 mg Q6H PRN PRN Administration Blood Pressure >160/110 Protocol Dextrose 250 mls @ 0 mls/hr 06/01/24 19:28 Dextrose 10%-Water IV .Q0M PRN HYPOGLYCEMIA Protocol As Directed Enteral Nutritional Formula 1,000 mls @ 45 mls/hr 06/06/24 11:30 06/12/24 03:26 Nepro Carb Steady GT Not Given .[id number] [facility] Fentanyl 100 mls @ 5 mls/hr 06/09/24 15:30 06/12/24 11:00 CONT INF 125 mcg/hr UD HIRAM 12.5 mls/hr Titration Protocol 50 MCG/HR Piperacillin Sod/Tazobactam 50 mls @ 12.5 mls/hr 06/09/24 22:00 06/12/24 00:00 Sod 3.375 gm/ Sodium Chloride IV Infused Q12 HIRAM Infusion Pantoprazole Sodium 40 mg/ 110 mls @ 330 mls/hr 06/10/24 10:00 06/12/24 11:15 Sodium Chloride IV 330 mls/hr Q12 HIRAM Administration Insulin Glargine 10 unit 06/09/24 22:00 06/11/24 23:44 Insulin Glargine-Yfgn 100 Unit/Ml Pen SC Not Given QHS HIRAM Insulin Human Lispro 0 unit 06/07/24 00:01 06/12/24 06:36 Insulin Lispro 100 Unit/Ml Insuln.Pen SC Not Given Q6H [facility] Protocol Lactulose 30 gm 06/08/24 22:00 06/12/24 06:33 Lactulose 20 Gm/30 Ml Udc NG 30 gm TID HIRAM Administration Melatonin 10 mg 06/05/24 22:00 06/11/24 20:03 Melatonin 10 Mg Tablet NG 10 mg QHS HIRAM Administration Metoclopramide HCl 5 mg 06/12/24 10:00 06/12/24 11:15 Metoclopramide 10 Mg/2 Ml Vial IV 5 mg BID HIRAM Administration Nitroglycerin 0.4 mg 06/01/24 16:15 Nitroglycerin (Inpatient Use) 0.4 Mg Tab.Subl SL Q5M PRN CARDIAC/CHEST PAIN Nystatin 1 applic 06/03/24 10:00 06/12/24 11:04 Nystatin Powder 15gm Bottle TOPICAL 1 applic BID [facility] Administration Protocol Nystatin 500,000 unit 06/10/24 18:00 06/12/24 11:05 Nystatin 500,000 Unit/5 Ml Udc PO 500,000 unit 4X/DAY HIRAM Administration Prochlorperazine Edisylate 5 mg 06/01/24 16:15 06/08/24 05:25 Prochlorperazine 10 Mg/2 Ml Vial IV 5 mg Q4H PRN PRN Administration Breakthrough nausea/vomiting Pyridoxine HCl 100 mg 06/02/24 10:00 06/12/24 11:05 Pyridoxine Hcl 100 Mg Tablet PO 100 mg DAILY HIRAM Administration Senna/Docusate Sodium 2 tablet 06/05/24 21:15 Senna/Docusate Sodium 1 Tablet NG BID PRN PRN Constipation Sertraline HCl 25 mg 06/06/24 10:00 06/12/24 11:05 Sertraline 50 Mg Tablet NG 25 mg DAILY HIRAM Administration Sodium Bicarbonate 650 mg 06/05/24 22:00 06/12/24 06:33 Sodium Bicarbonate 650 Mg Tablet NG 650 mg TID HIRAM Administration Sodium Chloride 10 - 40 ml 06/01/24 18:05 06/12/24 08:08 0.9% Saline Lock 10 Ml Syringe IV 20 ml UD PRN Administration SALINE FLUSH Sodium Chloride 1,000 ml 06/12/24 06:55 06/12/24 08:05 0.9% Normal Saline 1,000 Ml Iv.Soln. OPERA.SITE 06/12/24 18:52 1,000 ml X1 HIRAM Administration Sodium Chloride 200 ml 06/12/24 06:52 0.9% Normal Saline 1,000 Ml Iv.Soln. IV 06/12/24 18:52 X1 PRN to maintain SBP >90mmHg during Dialysis Tacrolimus 2 mg 06/05/24 22:00 06/11/24 09:57 Tacrolimus Anhydrous 1 Mg Capsule NG 2 mg BID HIRAM Administration Tamsulosin HCl 0.4 mg 06/01/24 22:00 06/11/24 20:04 Tamsulosin Hcl 0.4 Mg Capsule PO 0.4 mg QHS HIRAM Administration Medical Records Data Medical Nutrition Assessment Dietitian: Malnutrition Criteria Met Start: 06/04/24 13:41 Freq: Status: Active Protocol: Document 06/12/24 09:39 REBECA (Rec: 06/12/24 09:39 REBECA [id number]) Nutrition Malnutrition Evidence of Malnutrition Exists Yes Malnutrition (severe): Chronic Evidenced By Suboptimal Energy Intake ( Severe),Weight Loss (Severe) Intake Problem Inadequate Oral Intake Etiology related to pt on vent and swallowing difficulty Signs/Symptoms as evidenced by NPO and need for enteral nutrition support Status Active Problem Clinical Problem Chronic Disease or Condition Related Malnutrition Etiology severe protein-calorie malnutrition in the context of chronic disease related to inadequate oral/energy intake and difficulty swallowing Signs/Symptoms 25% unintentional weight loss x 13 months, 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 Will restart TF of Nepro via NG tube to start at 15mL/hr and increase as tolerated by 10mL/hr Q 6-8 hours to goal rate 45 mL/hr. Flush with 120mL water Q 4 hours. TF at goal rate along with free water flushes will provide 1912 kcal, 87.5 gm pro and 1505 mL/ free water per day. Will adjust enteral nutrition support and flushes as needed. Lab / Micro Data 06/12/24 03:05 06/12/24 03:05 Labs: Laboratory Results - last 24 hr 06/11/24 12:09: POC Glucose 172 H 06/11/24 17:59: POC Glucose 195 H 06/11/24 23:40: POC Glucose 123 H 06/12/24 03:05: WBC 7.2, RBC 2.36 L, Hgb 7.4 L, Hct 23.8 L, MCV 100.8 H, MCH 31.4, MCHC 31.1 L, RDW Std Deviation 64.3 H, RDW Coeff of Ursula 20.0 H, Plt Count 74 L, MPV 10.1, Immature Gran % (Auto) 1.900 H, Neut % (Auto) 74.5 H, Lymph % (Auto) 11.1 L, [place] % (Auto) 8.9, Eos % (Auto) 3.3, Baso % (Auto) 0.3, Absolute Neuts (auto) 5.4, Absolute Lymphs (auto) 0.80 L, Nucleated RBC % 0.6, Sodium 143, Potassium 3.5, Chloride 111 H, Carbon Dioxide 25.0, Anion Gap 7, BUN 36 H, Creatinine 4.74 H, Estim Creat Clear Calc 11.40, Est GFR (MDRD) Af Amer 15 L, Est GFR (MDRD) Non-Af 13 L, BUN/Creatinine Ratio 7.6 L, Glucose 141 H, Calcium 12.9 H* 06/12/24 06:35: POC Glucose 135 H Micro: Microbiology 06/09/24 15:30 Sputum, Induced/Lukens Gram Stain - Final 06/09/24 15:30 Sputum, Induced/Lukens Respiratory Culture - Final Assessment and Plan . Assessment and plan: HPI 79 yo chronically ill and immunosuppressed man admitted 06/01/24 w/ FTT at home. Stable, but ill and hypoactive on admission. UCX revealed GNR - treated w/ IV ABX. He has ESRD and required HD M/W/F. Course has been c/b persistent hypercalcemia despite HD. He remotely underwent OLTx and receives CellCept and Prograf. Prograf level obtained, but has not been resulted. He has had declining LOC and required O-T intubation and MV support 06/09/24. CT brain NAP. pCXR unremarkable. Lab o/w largely unremarkable. Currently sedated/unresponsive. HD stable. Modest MV requirement. He is awaiting TX to tertiary facility. 06/12/24 Sedated w/ fentanyl - perhaps better awareness today Modest MV requirement - stable mechanics HD done earlier today w/ UF Ca++ remains elevated, but trending down MRI brain noted - no acute findings Not tolerating enteral feeds very well PHYSICAL EXAM GEN sedated, unresponsive VS as above HEENT VICKY, NGT NECK supple COR RRR CHEST CTA ABD soft EXT minimal edema SKIN w/d JENNIFER obtunded ASSESSMENT 1. Acute respiratory failure requiring MV support 2. Severe encephalopathy w/ stupor / coma 3. ESRD 4. Hypercalcemia 5. Remote OLTx - chronically received Cellcept and Prograf 6. DM 7. H/O VTED 8. UTI 9. Fever 10. Ileus TREATMENT PLAN -MV support -follow clinical STOCK CONTROL CLERK exam -hold sedatives and follow exam -receiving ABX -I would continue to hold Prograf -sq insulin -enteral nutrition as tolerated -HD M-W-F -defer Ca++ management to Nephrology -sq UFH -prognosis very guarded Critical Care Time: 50 min The entirety of this encounter was done via Telemedicine
[2024-06-12] MEDS: NEPRO TUBE FEED 1,000 ML 15 ML GT (12:05)
[2024-06-12] MEDS: Piperacil/Tazobactam 3.375 GM in 0.9% Normal Saline (50mL MB+) 50 ML IV ×2 (12:15→21:32)
[2024-06-12 12:47] LABS: Bedside Glucose 132 mg/dL (74-106)
--- NOTE | 2024-06-12 13:39 | CON.PCM.NE_ITS ---
Assessment and Plan: Neuro Assessment/Plan This is a 79-year-old gentleman with a past medical history of insulin dependent diabetes mellitus, coronary artery disease, cirrhosis s/p liver transplant in 2007 (on mycophenolate and tacrolimus), hypertension, ESR on HD MWF who presented to [facility] on 06/01/24 for generalized weakness in the setting of ongoing diarrhea and missed dialysis. Worsening mental status appears to correlate with rising calcium levels, and although calcium has improved it is still near 13 today and would explain severe encephalopathy. Agree with routine EEG, and with transfer to higher level of care. I can re-examine him once calcium levels have resolved, I will follow up on EEG results Transfer to [facility] for the following reasons: Liver transplant I personally attended this patient and spent a total time of 65 minutes evaluating this patient including clinical assessment, review of chart, medical history imaging, and determining appropriate treatment and workup. HPI Consult Data Date of Consult: 06/12/24 HPI Narrative HPI Narrative: This is a 79-year-old gentleman with a past medical history of insulin dependent diabetes mellitus, coronary artery disease, cirrhosis s/p liver transplant in 2007 (on mycophenolate and tacrolimus), hypertension, ESR on HD MWF who presented to [facility] on 06/01/24 for generalized weakness. He had noted that he had missed his 05/29/24 dialysis session due to illness (diarrhea). On arrival to the ED, he was hypertensive, with BPs 190s systolic. UA consistent with UTI, CT adomen/pelvis showing cystitis and pancreatic ductal dilatation of unclear etiology. Labs showing pancytopenia (WBC 3.9 with ALC 840), hemoglobin 8.8, platelets 86. Creatinine 5.21, BUN 25. Calcium 11.3 He was admitted for further management. Per chart review he was confused on admission, no details surrounding confusion (intermittent, constant, etc). On 06/03 he underwent MRCP. Around 06/03 or 06/04 he was noted to become somnolent, noted to stop taking medications by mouth and requiring attempt at NGT placement on 06/05. He was started on lactulose on 06/07, although ammonia level normal. He developed hypercalcemia with level of 14 on 06/08/2024, he was given pamidronate on 06/09. He was intubated on 06/09 due to poor mental status. Antibiotics were changed to zosyn for aspiration coverage. Previous maintained on ceftriaxone 06/01- 06/09. He was given a one time dose of vancomycin on 06/10. Calcium level peaked on 06/10 at 14.5. MRI brain completed 06/10/2024 with non-specific white matter ischemic disease. Today?s labs personally reviewed. WBC count normal with ALC 800, hemoglobin 7.4 (L), creatinine 4.74 with BUN 36. Calcium 12.9 PFSH Medical History Loss of hearing Wears glasses Wears dentures Anxiety Depression Alcohol use Insulin dependent diabetes mellitus Uses wheelchair Walker as ambulation aid Back pain Dietary restriction History of ulceration Gastric reflux Shortness of breath on exertion History of renal dialysis History of edema History of echocardiogram Cardiology follow-up encounter Arthritis DVT (deep venous thrombosis) TIA (transient ischemic attack) Coronary artery disease Congestive heart failure Cirrhosis Hemochromatosis Non-smoker Hyperlipidemia Hypertension Stroke/cerebrovascular accident Home Medications ?Medication ?Instructions ?Recorded ?Last Taken ?Type aspirin 81 mg tablet 81 mg PO DAILY 08/22/21 06/01/24 History atorvastatin 40 mg tablet 40 mg PO QHS 08/22/21 05/31/24 History sodium bicarbonate 650 mg tablet 650 mg PO TID 08/22/21 06/01/24 History pyridoxine (vitamin B6) 100 mg 100 mg PO DAILY 04/26/23 06/01/24 History tablet (Vitamin B-6) insulin glargine 100 unit/mL (3 4 unit subcut QHS 03/03/24 05/04/24 History mL) subcutaneous pen (Lantus Solostar U-100 Insulin) insulin lispro 100 unit/mL 1 sliding scale dose subcut TID 03/03/24 Unknown History subcutaneous pen (Humalog KwikPen (U-100) Insulin) midodrine 5 mg tablet 5 mg PO BID 03/03/24 06/01/24 History tamsulosin 0.4 mg capsule 0.4 mg PO QHS 03/03/24 05/31/24 History torsemide 20 mg tablet 40 mg PO DAILY 03/03/24 06/01/24 History carvedilol 12.5 mg tablet 12.5 mg PO BID 05/01/24 05/31/24 History clopidogrel 75 mg tablet 75 mg PO DAILY 05/01/24 06/01/24 History diltiazem HCl 240 mg 240 mg PO DAILY 05/01/24 06/01/24 History capsule,extended release 24 hr mycophenolate mofetil 250 mg 500 mg PO BID 05/01/24 06/01/24 History capsule pantoprazole 40 mg tablet,delayed 40 mg PO DAILY 05/01/24 06/01/24 History release sertraline 25 mg tablet 25 mg PO DAILY 05/01/24 06/01/24 History tacrolimus 1 mg capsule, 2 mg PO BID 05/01/24 06/01/24 History immediate-release hydralazine 50 mg tablet 50 mg PO Q12.TCU 06/01/24 06/01/24 History vitamin B complex-vitamin C-folic 1 tab PO DAILY 06/01/24 06/01/24 History acid 0.8 mg tablet (Jie-Anne-Marie) Allergy/AdvReac Type Severity Reaction Status Date / Time No Known Allergies Allergy Verified 06/01/24 12:18 Surgical History History of cardiac catheterization Hx of colonoscopy History of coronary artery stent placement History of embolic filter insertion History of herniorrhaphy History of appendectomy History of cholecystectomy History of liver transplant Social History household members: spouse Smoking Status: Never smoker alcohol intake: never substance use type: does not use Vital Signs Vital Signs Vital Signs: 06/11/24 14:00 06/11/24 15:00 06/11/24 16:00 Temperature 99.2 F H Temperature Source Core Pulse Rate 79 80 94 Pulse Strength Respiratory Rate 16 14 15 Respiratory Effort Respiratory Depth Respiratory Pattern Blood Pressure 105/52 L 95/48 L 125/56 H Blood Pressure Mean 69 63 79 Blood Pressure Source Monitor Monitor Monitor Blood Pressure Position Semi-Fowlers Semi-Fowlers Semi-Fowlers Blood Pressure Location Left Arm Left Arm Left Arm Pulse Ox 100 98 99 Oxygen Delivery Method Mechanical Ventilator Mechanical Ventilator Mechanical Ventilator Fraction of Inspired Oxygen (FIO2) 21 21 21 06/11/24 16:00 06/11/24 16:07 06/11/24 17:00 Temperature Temperature Source Pulse Rate 93 97 Pulse Strength Respiratory Rate 14 16 Respiratory Effort Mechanically Ventilated Respiratory Depth Respiratory Pattern Blood Pressure 123/58 H Blood Pressure Mean 79 Blood Pressure Source Monitor Blood Pressure Position Semi-Fowlers Blood Pressure Location Left Arm Pulse Ox 99 98 Oxygen Delivery Method Mechanical Ventilator Mechanical Ventilator Fraction of Inspired Oxygen (FIO2) 21 06/11/24 18:00 06/11/24 19:00 06/11/24 19:57 Temperature 99.1 F Temperature Source Core Pulse Rate 88 81 87 Pulse Strength Respiratory Rate 14 14 14 Respiratory Effort Respiratory Depth Respiratory Pattern Blood Pressure 121/55 H 127/66 H Blood Pressure Mean 77 86 Blood Pressure Source Monitor Monitor Blood Pressure Position Semi-Fowlers Semi-Fowlers Blood Pressure Location Left Arm Right Arm Pulse Ox 97 100 99 Oxygen Delivery Method Mechanical Ventilator Mechanical Ventilator Fraction of Inspired Oxygen (FIO2) 06/11/24 20:00 06/11/24 20:00 06/11/24 21:00 Temperature 99.1 F 98.8 F Temperature Source Core Core Pulse Rate 79 76 Pulse Strength Respiratory Rate 14 15 Respiratory Effort Normal Non-Labored Mechanically Ventilated Respiratory Depth Normal Respiratory Pattern Normal Blood Pressure 135/62 H 135/61 H Blood Pressure Mean 86 85 Blood Pressure Source Monitor Monitor Blood Pressure Position Semi-Fowlers Semi-Fowlers Blood Pressure Location Left Arm Left Arm Pulse Ox 100 100 Oxygen Delivery Method Mechanical Ventilator Mechanical Ventilator Mechanical Ventilator Fraction of Inspired Oxygen (FIO2) 06/11/24 22:00 06/11/24 22:55 06/11/24 23:00 Temperature 98.7 F 98.8 F Temperature Source Core Core Pulse Rate 79 81 84 Pulse Strength Respiratory Rate 14 14 15 Respiratory Effort Respiratory Depth Respiratory Pattern Blood Pressure 113/70 148/62 H Blood Pressure Mean 84 90 Blood Pressure Source Monitor Monitor Blood Pressure Position Semi-Fowlers Semi-Fowlers Blood Pressure Location Left Arm Left Arm Pulse Ox 100 99 99 Oxygen Delivery Method Mechanical Ventilator Mechanical Ventilator Fraction of Inspired Oxygen (FIO2) 06/12/24 00:00 06/12/24 00:00 06/12/24 01:00 Temperature 98.9 F 99.2 F H Temperature Source Core Core Pulse Rate 82 79 Pulse Strength Respiratory Rate 19 H 14 Respiratory Effort Normal Non-Labored Mechanically Ventilated Respiratory Depth Normal Respiratory Pattern Normal Blood Pressure 137/63 H 121/59 H Blood Pressure Mean 87 79 Blood Pressure Source Monitor Monitor Blood Pressure Position Semi-Fowlers Semi-Fowlers Blood Pressure Location Left Arm Left Arm Pulse Ox 99 100 Oxygen Delivery Method Mechanical Ventilator Mechanical Ventilator Mechanical Ventilator Fraction of Inspired Oxygen (FIO2) 21 21 21 06/12/24 02:00 06/12/24 02:12 06/12/24 03:00 Temperature 99.3 F H 99.5 F H Temperature Source Core Core Pulse Rate 78 94 93 Pulse Strength Respiratory Rate 14 18 14 Respiratory Effort Respiratory Depth Respiratory Pattern Blood Pressure 117/55 L 140/73 H Blood Pressure Mean 75 95 Blood Pressure Source Monitor Monitor Blood Pressure Position Semi-Fowlers Semi-Fowlers Blood Pressure Location Left Arm Left Arm Pulse Ox 100 99 98 Oxygen Delivery Method Mechanical Ventilator Mechanical Ventilator Fraction of Inspired Oxygen (FIO2) 21 21 06/12/24 04:00 06/12/24 04:00 06/12/24 04:49 Temperature 99.4 F H Temperature Source Core Pulse Rate 87 81 Pulse Strength Respiratory Rate 16 14 Respiratory Effort Non-Labored Short of Breath Mechanically Ventilated Respiratory Depth Normal Respiratory Pattern Normal Blood Pressure 130/60 H Blood Pressure Mean 83 Blood Pressure Source Monitor Blood Pressure Position Semi-Fowlers Blood Pressure Location Left Arm Pulse Ox 99 99 Oxygen Delivery Method Mechanical Ventilator Mechanical Ventilator Fraction of Inspired Oxygen (FIO2) 06/12/24 05:00 06/12/24 06:00 06/12/24 07:00 Temperature 99.4 F H 99.3 F H Temperature Source Core Core Pulse Rate 89 84 84 Pulse Strength Respiratory Rate 22 H 14 14 Respiratory Effort Respiratory Depth Respiratory Pattern Blood Pressure 149/67 H 130/62 H 150/81 H Blood Pressure Mean 94 84 104 Blood Pressure Source Monitor Monitor Monitor Blood Pressure Position Semi-Fowlers Semi-Fowlers Semi-Fowlers Blood Pressure Location Left Arm Left Arm Left Arm Pulse Ox 98 98 97 Oxygen Delivery Method Mechanical Ventilator Mechanical Ventilator Mechanical Ventilator Fraction of Inspired Oxygen (FIO2) 21 06/12/24 07:08 06/12/24 07:30 06/12/24 07:57 Temperature 98.9 F Temperature Source Core Pulse Rate 82 87 85 Pulse Strength Respiratory Rate 14 17 15 Respiratory Effort Mechanically Ventilated Respiratory Depth Respiratory Pattern Blood Pressure 150/81 H 151/75 H Blood Pressure Mean 104 100 Blood Pressure Source Monitor Monitor Blood Pressure Position Semi-Fowlers Semi-Fowlers Blood Pressure Location Left Arm Left Arm Pulse Ox 100 99 99 Oxygen Delivery Method Mechanical Ventilator Mechanical Ventilator Fraction of Inspired Oxygen (FIO2) 21 21 06/12/24 08:00 06/12/24 08:00 06/12/24 08:12 Temperature 98.8 F 98.5 F Temperature Source Core Core Pulse Rate 85 88 Pulse Strength Respiratory Rate 14 16 Respiratory Effort Mechanically Ventilated Respiratory Depth Respiratory Pattern Blood Pressure 151/75 H 151/75 H Blood Pressure Mean 100 100 Blood Pressure Source Monitor Monitor Blood Pressure Position Semi-Fowlers Semi-Fowlers Blood Pressure Location Left Arm Left Arm Pulse Ox 99 99 Oxygen Delivery Method Mechanical Ventilator Mechanical Ventilator Mechanical Ventilator Fraction of Inspired Oxygen (FIO2) 21 06/12/24 08:15 06/12/24 08:30 06/12/24 08:45 Temperature 98.3 F 98.0 F Temperature Source Core Core Pulse Rate 92 91 92 Pulse Strength Respiratory Rate 17 14 14 Respiratory Effort Respiratory Depth Respiratory Pattern Blood Pressure 95/53 L 121/53 H 120/60 Blood Pressure Mean 67 75 80 Blood Pressure Source Monitor Monitor Monitor Blood Pressure Position Semi-Fowlers Semi-Fowlers Semi-Fowlers Blood Pressure Location Left Arm Left Arm Left Arm Pulse Ox 97 96 98 Oxygen Delivery Method Bi-pap Mechanical Ventilator Mechanical Ventilator Fraction of Inspired Oxygen (FIO2) 06/12/24 09:00 06/12/24 09:00 06/12/24 09:15 Temperature 97.8 F 97.7 F L Temperature Source Core Core Pulse Rate 94 93 94 Pulse Strength Respiratory Rate 14 15 16 Respiratory Effort Respiratory Depth Respiratory Pattern Blood Pressure 130/62 H 130/62 H 119/68 Blood Pressure Mean 84 84 85 Blood Pressure Source Monitor Monitor Monitor Blood Pressure Position Semi-Fowlers Semi-Fowlers Semi-Fowlers Blood Pressure Location Left Arm Left Arm Left Arm Pulse Ox 97 97 98 Oxygen Delivery Method Mechanical Ventilator Mechanical Ventilator Mechanical Ventilator Fraction of Inspired Oxygen (FIO2) 06/12/24 09:30 06/12/24 09:40 06/12/24 09:45 Temperature 97.4 F L Temperature Source Core Pulse Rate 98 97 99 Pulse Strength Respiratory Rate 16 16 17 Respiratory Effort Respiratory Depth Respiratory Pattern Blood Pressure 158/65 H 113/69 Blood Pressure Mean 96 83 Blood Pressure Source Monitor Monitor Blood Pressure Position Semi-Fowlers Semi-Fowlers Blood Pressure Location Left Arm Left Arm Pulse Ox 96 99 97 Oxygen Delivery Method Mechanical Ventilator Mechanical Ventilator Fraction of Inspired Oxygen (FIO2) 21 06/12/24 09:59 06/12/24 10:00 06/12/24 10:00 Temperature 97.7 F L Temperature Source Core Pulse Rate 96 96 Pulse Strength Normal (2+) Respiratory Rate 19 H 17 Respiratory Effort Respiratory Depth Respiratory Pattern Blood Pressure 135/102 H 135/102 H Blood Pressure Mean 113 113 Blood Pressure Source Monitor Monitor Blood Pressure Position Semi-Fowlers Semi-Fowlers Blood Pressure Location Left Arm Left Arm Pulse Ox 98 98 Oxygen Delivery Method Mechanical Ventilator Mechanical Ventilator Fraction of Inspired Oxygen (FIO2) 21 06/12/24 10:15 06/12/24 10:30 06/12/24 10:53 Temperature 97.7 F L 97.7 F L 97.8 F Temperature Source Core Core Core Pulse Rate 98 96 90 Pulse Strength Respiratory Rate 17 14 14 Respiratory Effort Mechanically Ventilated Respiratory Depth Respiratory Pattern Blood Pressure 124/60 H 130/93 H 129/68 H Blood Pressure Mean 81 105 88 Blood Pressure Source Monitor Monitor Monitor Blood Pressure Position Semi-Fowlers Semi-Fowlers Semi-Fowlers Blood Pressure Location Left Arm Left Arm Left Arm Pulse Ox 98 98 99 Oxygen Delivery Method Mechanical Ventilator Mechanical Ventilator Mechanical Ventilator Fraction of Inspired Oxygen (FIO2) 21 06/12/24 11:00 06/12/24 11:41 06/12/24 12:00 Temperature Temperature Source Pulse Rate 93 90 Pulse Strength Respiratory Rate 13 14 Respiratory Effort Mechanically Ventilated Respiratory Depth Respiratory Pattern Blood Pressure 109/89 H Blood Pressure Mean 95 Blood Pressure Source Monitor Blood Pressure Position Semi-Fowlers Blood Pressure Location Left Arm Pulse Ox 98 100 Oxygen Delivery Method Mechanical Ventilator Mechanical Ventilator Fraction of Inspired Oxygen (FIO2) 21 21 21 Weight Weight: 67.2 kg Body Mass Index (BMI) 23.2 EEG Results Procedure Details EEG Procedure Details: Completed this morning, read pending Physical Exam Neuro Neuro Narrative: Neurologic examination performed on 75mcg/hr of fentanyl. This is in the process of being slowly weaned since this morning Joe opens eyes to verbal stimulation. He is intubated, and therefore no language is produced. He does not clearly follow commands (stick out tongue, thumbs up). Pupils are equal at 2-3mm and reactive. Blink to threat appears intact. Face appears symmetric, ET tube limits examination. Right arm attempts at localization to noxious stimulation. Minimal withdrawal in all 4 extremities (appears to have proximal weakness). Grimace with noxious stimulation. Medical Records Data Medical Nutrition Assessment Dietitian: Malnutrition Criteria Met Start: 10/17/24 13:41 Freq: Status: Active Protocol: Document 06/12/24 09:39 REBECA (Rec: 06/12/24 09:39 [facility] [id number]) Nutrition Malnutrition Evidence of Malnutrition Exists Yes Malnutrition (severe): Chronic Evidenced By Suboptimal Energy Intake ( Severe),Weight Loss (Severe) Intake Problem Inadequate Oral Intake Etiology related to pt on vent and swallowing difficulty Signs/Symptoms as evidenced by NPO and need for enteral nutrition support Status Active Problem Clinical Problem Chronic Disease or Condition Related Malnutrition Etiology severe protein-calorie malnutrition in the context of chronic disease related to inadequate oral/energy intake and difficulty swallowing Signs/Symptoms 25% unintentional weight loss x 13 months, 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 Will restart TF of Nepro via NG tube to start at 15mL/hr and increase as tolerated by 10mL/hr Q 6-8 hours to goal rate 45 mL/hr. Flush with 120mL water Q 4 hours. TF at goal rate along with free water flushes will provide 1912 kcal, 87.5 gm pro and 1505 mL/ free water per day. Will adjust enteral nutrition support and flushes as needed. Lab / Micro Data 06/12/24 03:05 06/12/24 03:05 Labs: Laboratory Results - last 24 hr 06/11/24 17:59: POC Glucose 195 H 06/11/24 23:40: POC Glucose 123 H 06/12/24 03:05: WBC 7.2, RBC 2.36 L, Hgb 7.4 L, Hct 23.8 L, MCV 100.8 H, MCH 31.4, MCHC 31.1 L, RDW Std Deviation 64.3 H, RDW Coeff of Ursula 20.0 H, Plt Count 74 L, MPV 10.1, Immature Gran % (Auto) 1.900 H, Neut % (Auto) 74.5 H, Lymph % (Auto) 11.1 L, Jewell % (Auto) 8.9, Eos % (Auto) 3.3, Baso % (Auto) 0.3, Absolute Neuts (auto) 5.4, Absolute Lymphs (auto) 0.80 L, Nucleated RBC % 0.6, Sodium 143, Potassium 3.5, Chloride 111 H, Carbon Dioxide 25.0, Anion Gap 7, BUN 36 H, Creatinine 4.74 H, Estim Creat Clear Calc 11.40, Est GFR (MDRD) Af Amer 15 L, E st GFR (MDRD) Non-Af 13 L, BUN/Creatinine Ratio 7.6 L, Glucose 141 H, Calcium 12.9 H* 06/12/24 06:35: POC Glucose 135 H 06/12/24 12:24: POC Glucose 132 H Active Medications Active Medications Active Medications: Current Medications Generic Name Dose Route Start Last Admin Trade Name Freq PRN Reason Stop Dose Admin Acetaminophen 650 mg 06/05/24 21:17 06/09/24 20:47 Acetaminophen 650 Mg/20 Ml Udc NG 650 mg Q6H PRN PRN Administration Pain 1-10 Or Fever >100.7 Atorvastatin Calcium 40 mg 06/05/24 22:00 06/11/24 20:03 Atorvastatin Calcium 40 Mg Tablet NG 40 mg QHS HIRAM Administration Calamine/Phenol 1 applic 06/01/24 22:00 06/12/24 11:03 Menthol/Lanolin/Calamine/Znox 113 Gm Tube TOPICAL 1 applic BID HIRAM Administration Protocol Carvedilol 25 mg 06/08/24 22:00 06/09/24 21:22 Carvedilol 25 Mg Tablet NG Not Given BID HIRAM Protocol Chlorhexidine Gluconate 1 each 06/11/24 10:00 06/12/24 11:04 Chlorhexidine Gluc 2% Cloth 1 Each [place] TOPICAL 1 each DAILY HIRAM Administration Chlorhexidine Gluconate 15 ml 06/10/24 22:00 06/12/24 11:04 Chlorhexidine 15 Ml PO 15 ml BID HIRAM Administration Clopidogrel Bisulfate 75 mg 06/06/24 10:00 06/12/24 11:07 Clopidogrel Bisulfate 75 Mg Tablet NG 75 mg DAILY HIRAM Administration Glucagon 1 mg 06/01/24 19:28 Glucagon 1 Mg/Ml Syringe IM X1 PRN Hypoglycemia Protocol Hemodialysis Solution 6 bag 06/12/24 07:00 06/12/24 08:07 Pureflow B 3k Dialysis Soln 1 Bag PF 06/12/24 18:54 5 bag UD HIRAM Administration Protocol Heparin Sodium (Porcine) 5,000 unit 06/05/24 14:00 06/12/24 06:33 Heparin Injection (Vial) 5,000 Unit/Ml Vial SC 5,000 unit Q8 HIRAM Administration Heparin Sodium (Porcine) 1,000 - 3,000 units 06/12/24 06:52 06/12/24 10:35 Heparin 10,000 Units/10 Ml Vial IV 06/12/24 18:52 1,700 units X1 PRN Administration HD catheter closing Hydralazine HCl 50 mg 06/05/24 22:00 06/09/24 21:22 Hydralazine 50 Mg Tablet NG Not Given Q12 HIRAM Protocol Hydralazine HCl 10 mg 06/06/24 07:22 06/06/24 12:08 Hydralazine 20 Mg/Ml Vial IV 10 mg Q6H PRN PRN Administration Blood Pressure >160/110 Protocol Dextrose 250 mls @ 0 mls/hr 06/01/24 19:28 Dextrose 10%-Water IV .Q0M PRN HYPOGLYCEMIA Protocol As Directed Enteral Nutritional Formula 1,000 mls @ 45 mls/hr 06/06/24 11:30 06/12/24 12:05 Nepro Carb Steady GT 15 mls/hr .[id number] HIRAM Administration Fentanyl 100 mls @ 5 mls/hr 06/09/24 15:30 06/12/24 13:00 CONT INF 75 mcg/hr UD HIRAM 7.5 mls/hr Titration Protocol 50 MCG/HR Piperacillin Sod/Tazobactam 50 mls @ 12.5 mls/hr 06/09/24 22:00 06/12/24 12:15 Sod 3.375 gm/ Sodium Chloride IV 12.5 mls/hr Q12 HIRAM Administration Pantoprazole Sodium 40 mg/ 110 mls @ 330 mls/hr 06/10/24 10:00 06/12/24 12:29 Sodium Chloride IV Infused Q12 HIRAM Infusion Insulin Glargine 10 unit 06/09/24 22:00 06/11/24 23:44 Insulin Glargine-Yfgn 100 Unit/Ml Pen SC Not Given QHS [facility] Insulin Human Lispro 0 unit 06/07/24 00:01 06/12/24 12:29 Insulin Lispro 100 Unit/Ml Insuln.Pen SC Not Given Q6H [facility] Protocol Lactulose 30 gm 06/08/24 22:00 06/12/24 06:33 Lactulose 20 Gm/30 Ml Udc NG 30 gm TID HIRAM Administration Metoclopramide HCl 5 mg 06/12/24 10:00 06/12/24 11:15 Metoclopramide 10 Mg/2 Ml Vial IV 5 mg BID HIRAM Administration Nitroglycerin 0.4 mg 06/01/24 16:15 Nitroglycerin (Inpatient Use) 0.4 Mg Tab.Subl SL Q5M PRN CARDIAC/CHEST PAIN Nystatin 1 applic 06/03/24 10:00 06/12/24 11:04 Nystatin Powder 15gm Bottle TOPICAL 1 applic BID HIRAM Administration Protocol Nystatin 500,000 unit 06/10/24 18:00 06/12/24 11:05 Nystatin 500,000 Unit/5 Ml Udc PO 500,000 unit 4X/DAY HIRAM Administration Prochlorperazine Edisylate 5 mg 06/01/24 16:15 06/08/24 05:25 Prochlorperazine 10 Mg/2 Ml Vial IV 5 mg Q4H PRN PRN Administration Breakthrough nausea/vomiting Pyridoxine HCl 100 mg 06/02/24 10:00 06/12/24 11:05 Pyridoxine Hcl 100 Mg Tablet PO 100 mg DAILY HIRAM Administration Senna/Docusate Sodium 2 tablet 06/05/24 21:15 Senna/Docusate Sodium 1 Tablet NG BID PRN PRN Constipation Sodium Bicarbonate 650 mg 06/05/24 22:00 06/12/24 06:33 Sodium Bicarbonate 650 Mg Tablet NG 650 mg TID HIRAM Administration Sodium Chloride 10 - 40 ml 06/01/24 18:05 06/12/24 08:08 0.9% Saline Lock 10 Ml Syringe IV 20 ml UD PRN Administration SALINE FLUSH Sodium Chloride 1,000 ml 06/12/24 06:55 06/12/24 08:05 0.9% Normal Saline 1,000 Ml Iv.Soln. OPERA.SITE 06/12/24 18:52 1,000 ml X1 HIRAM Administration Sodium Chloride 200 ml 06/12/24 06:52 0.9% Normal Saline 1,000 Ml Iv.Soln. IV 06/12/24 18:52 X1 PRN to maintain SBP >90mmHg during Dialysis Tacrolimus 2 mg 06/05/24 22:00 10/24/24 09:57 Tacrolimus Anhydrous 1 Mg Capsule NG 2 mg BID HIRAM Administration
[2024-06-12 17:33] LABS: Bedside Glucose 139 mg/dL (74-106)
--- NOTE | 2024-06-12 17:40 | PCM.PN.HOSP ---
Reason for Visit Reason for Visit: Weakness/malaise Subjective Subjective No issues overnight. Patient does seem to be a little bit more alert today. Not following commands but does respond to name by looking towards me. Objective Data Objective Data Vital Signs: Vital Signs Temp Pulse Resp BP Pulse Ox O2 Del Method FiO2 100.5 F H 93 13 117/54 L 100 Mechanical Ventilator 21 06/12/24 16:00 06/12/24 17:00 06/12/24 17:00 06/12/24 17:00 06/12/24 17:00 06/12/24 17:00 06/12/24 17:00 Oxygen Delivery Method Mechanical Ventilator Weight: 67.2 kg Body Mass Index (BMI) 23.2 Intake & Output: Intake and Output for Last 24 Hours 06/10/24 06/11/24 06/12/24 23:59 23:59 23:59 Intake Total 3863.4333 / 3870.9333 2380.83 / 2490.83 753.33 / 753.33 Output Total 1105 / 1105 70 / 95 1450 / 1450 Balance 2758.4333 / 2765.9333 2310.83 / 2395.83 -696.67 / -696.67 Medical Nutrition Assessment Dietitian: Malnutrition Criteria Met Start: 06/04/24 13:41 Freq: Status: Active Protocol: Document 06/12/24 09:39 REBECA (Rec: 06/12/24 09:39 REBECA [id number]) Nutrition Malnutrition Evidence of Malnutrition Exists Yes Malnutrition (severe): Chronic Evidenced By Suboptimal Energy Intake ( Severe),Weight Loss (Severe) Intake Problem Inadequate Oral Intake Etiology related to pt on vent and swallowing difficulty Signs/Symptoms as evidenced by NPO and need for enteral nutrition support Status Active Problem Clinical Problem Chronic Disease or Condition Related Malnutrition Etiology severe protein-calorie malnutrition in the context of chronic disease related to inadequate oral/energy intake and difficulty swallowing Signs/Symptoms 25% unintentional weight loss x 13 months, 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 Will restart TF of Nepro via NG tube to start at 15mL/hr and increase as tolerated by 10mL/hr Q 6-8 hours to goal rate 45 mL/hr. Flush with 120mL water Q 4 hours. TF at goal rate along with free water flushes will provide 1912 kcal, 87.5 gm pro and 1505 mL/ free water per day. Will adjust enteral nutrition support and flushes as needed. Lab / Micro Data 06/12/24 03:05 06/12/24 03:05 Labs: Laboratory Results - last 24 hr 06/11/24 17:59: POC Glucose 195 H 06/11/24 23:40: POC Glucose 123 H 06/12/24 03:05: WBC 7.2, RBC 2.36 L, Hgb 7.4 L, Hct 23.8 L, MCV 100.8 H, MCH 31.4, MCHC 31.1 L, RDW Std Deviation 64.3 H, RDW Coeff of Ursula 20.0 H, Plt Count 74 L, MPV 10.1, Immature Gran % (Auto) 1.900 H, Neut % (Auto) 74.5 H, Lymph % (Auto) 11.1 L, [place] % (Auto) 8.9, Eos % (Auto) 3.3, Baso % (Auto) 0.3, Absolute Neuts (auto) 5.4, Absolute Lymphs (auto) 0.80 L, Nucleated RBC % 0.6, Sodium 143, Potassium 3.5, Chloride 111 H, Carbon Dioxide 25.0, Anion Gap 7, BUN 36 H, Creatinine 4.74 H, Estim Creat Clear Calc 11.40, Est GFR (MDRD) Af Amer 15 L, Est GFR (MDRD) Non-Af 13 L, BUN/Creatinine Ratio 7.6 L, Glucose 141 H, Calcium 12.9 H* 06/12/24 06:35: POC Glucose 135 H 06/12/24 12:24: POC Glucose 132 H 06/12/24 17:08: POC Glucose 139 H Micro: Microbiology 06/09/24 15:30 Sputum, Induced/Lukens Gram Stain - Final 06/09/24 15:30 Sputum, Induced/Lukens Respiratory Culture - Final 06/11/24 05:40 Stool Stool Occult Blood (ZITA) - Final 06/09/24 07:10 Gastric Fluid/Contents Gastric Occult Blood - Final 06/01/24 13:16 Urine, Clean Catch Urine Culture - Final Klebsiella pneumoniae sp pneum Radiography Diagnostic Testing: Radiology Impression Chest X-Ray 06/12/24 06:30 IMPRESSION: No change from prior study. Electronically Signed: Lavell Leon MD at 16:27 EDT , Physical Exam Const alert, no apparent distress and average body habitus; Negative for healthy appearing or well nourished Constitutional Narrative: Frail-appearing, elderly, white male, lying in bed intubated and sedated but eyes are currently open and patient did look towards me when I stated his first name, appears comfortable, does not look toxic HEENT normocephalic, head/scalp atraumatic and moist oral mucous membranes HEENT Narrative: ET tube in place, NG tube in left nares with trace blood around external nares, thrush appears to be improving Resp normal respiratory effort, normal air movement, no retractions, no use of accessory muscles and clear to auscultation bilaterally Auscultation: Negative for rales, rhonchi or wheezes Cardio regular rate, regular rhythm, S1 normal heart sound, S2 normal heart sound, no murmurs, no rub, no gallops and no clicks GI normal to inspection, nondistended, normoactive bowel sounds, soft to palpation and non-tender GI Narrative: NG tube in situ Extremity no clubbing, cyanosis or edema Extremity Narrative: Pedal pulses and radial pulses are 2+ Neuro Neuro Narrative: Intubated and sedated, hyperreflexive throughout Psych Psych Narrative: Unable to assess due to intubation and sedation Mood & Affect: flat affect Assessment & Plan Assessment/Plan (1) Failure to thrive: (2) General weakness: (3) Hypercalcemia: (4) Toxic metabolic encephalopathy: PLAN: Plan Acute respiratory failure secondary to altered mentation and decreased ability to protect airway -Intubated on 06/09/2024 for airway protection with decreased mentation and increased respiratory distress -Avoid propofol for sedation with hypercalcemia -Continue fentanyl for sedation--> sedation appears to be adequate at this time with fentanyl only -MRI of the brain unchanged from previous -Per neurology no signs of tacrolimus toxicity on imaging or otherwise so we will go ahead and restart for now -EEG not showing any signs of seizure activity -Neurology agrees with current workup and recommend transfer to tertiary center soon as possible -Mental status will probably be rate limiting step to extubation -Pulmonary/critical care medicine following Aspiration pneumonia -Culture finalized as polymicrobial -Continue Zosyn and discontinue vancomycin -Day 3 of 7 for antibiotics Generalized weakness/debility -Suspect multifactorial -CT of the brain unremarkable for any acute findings -MRI shows only previous strokes -Continue PT/OT/speech therapy as able after extubation -NG in place and will continue tube feeds -Initial plan was for transfer to [facility] with liver service consultation as patient has 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 -[facility]/have also initiated transfer to [facility] and awaiting acceptance End-stage renal disease -Dialysis dependent -Vascular surgery was consulted for suture removals for AV fistula that was created on 05/05/2024 -Vascular surgery has been unable to see him and sutures -->discussed with Vascular and ok to hold off until acute issues have resolved -AV fistula is not usable at this point -Right stage I basilic fistula creation was performed on 05/05/2024 -Continue dialysis per vascular access in the form of tunneled dialysis catheter in right chest -Nephrology is following -Continue home sodium bicarb Severe hypercalcemia -Patient did have a slight drop in calcium today but I anticipate is related to pamidronate given on 06/09 -Calcium 14.9 06/10--> 13.2 06/11--> 12.9 06/12 -Imaging thus far is unremarkable for any tumors that could induce hypercalcemia -Unable to do bone scan due to the fact the patient is intubated -PTH is not markedly elevated for patient on dialysis -STEFAN, kappa and lambda are slightly elevated but appropriate for end-stage renal disease -Vitamin D 25 and vitamin D 1-25 are within normal limits -PTH RP remains pending -Highly suspect this is contributing to his altered mental status--> neurology agrees -Patient did receive 2 doses of calcitonin at 200 units on 06/06/2024 and 400 units on 06/07/2024 and this appears to be nonresponsive to the calcitonin -1 dose of pamidronate given on 06/09/2024 per nephrology recs. 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 Toxic/metabolic encephalopathy -Related to the above--> possibly a bit improved today -CT brain was unremarkable -MRI was unremarkable -Should improve once we can correct his electrolyte abnormalities -Tacrolimus level was within normal limits and discussed with neuro and they felt that there was no neurotoxicity related to the tacrolimus so we will restart Klebsiella UTI -Treatment completed Pericardial effusion -CT of the chest showed moderate effusion--> follow-up echocardiogram showed EF of 65% with stage I diastolic dysfunction, moderate concentric LVH and small to medium sized pericardial effusion with no evidence of tamponade -Likely has mild pericardial effusion related to his renal dysfunction Hypokalemia -Resolved but monitor History of alcoholic liver cirrhosis status post transplant - reports transplant 2007 -Ammonia is normal x 2 -Will continue lactulose 3 times daily -We have had to hold his CellCept due to inability to crush and placed on NG -Tacrolimus level was within normal limits and will restart as above History of atrial fibrillation -Continue home carvedilol via G-tube -Will hold diltiazem with intubation and sedation his blood pressures may be lower -Patient does not appear to be chronically anticoagulated at baseline History of stroke -Patient with multifocal strokes on imaging -Appears to have significant small vessel disease as well -Continue home aspirin via NG -Continue to address modifiable risk factors as able Essential hypertension -Patient is on midodrine at home currently on hold as blood pressures have been elevated -Continue carvedilol -Continue to hold diltiazem -Continue home hydralazine -As needed hydralazine available GERD -IV PPI twice daily BPH with obstruction -Flomax on hold due to the fact that it is not crushable -Patient does still make some urine Pancytopenia -White count is up and stable with left shift present -Continue to monitor -Hemoglobin and platelet counts fluctuate but overall relatively stable -Gastroccult and Hemoccult negative DM-2 -Continue basal insulin at 10 units (home dose 4 units)--> continue for today but if further trend up tomorrow will increase dose -Blood sugar control is improved with fasting sugar this morning at 176 -Continue to monitor and adjust insulins as needed -Continue SSI every 6 -Patient is on tube feed at goal rate Hyperlipidemia -Continue home statin Depression -Continue home sertraline DVT/GI prophylaxis -Continue subcu heparin every 8 -Protonix 40 mg daily IV CODE STATUS -Full code Disposition: -Still awaiting bed at [facility] x 8 days. Have discussed with transfer center at [facility] and awaiting response Charges/Coding Visit Charges Inpatient E&M: 58888 Subs Hosp L2
[2024-06-12] MEDS: Atorvastatin Calcium 40 MG Tablet NG (21:03)
[2024-06-12] MEDS: Tacrolimus Anhydrous 1 MG Capsule 2 MG NG (21:31)
[2024-06-12 23:36] LABS: Bedside Glucose 140 mg/dL (74-106)
[2024-06-13] VITALS (35 sets, daily range): BP systolic 99–140; BP diastolic 49–98; PULSE 68–106; RESP 13–20; TEMP 37.6–38.2; O2SAT 92–100; BMI 23.0
[2024-06-13] MEDS: CHLORHEXIDINE GLUC 2% CLOTH 1 EACH TOWELETTE TOPICAL (01:04)
[2024-06-13] MEDS: Acetaminophen 650 MG/20 ML UDC NG (01:06)
[2024-06-13] MEDS: Lactulose 20 GM/30 ML UDC 30 GM NG (05:42)
[2024-06-13] MEDS: 0.9% Saline Lock 10 ML Syringe IV (05:42)
[2024-06-13] MEDS: Sodium Bicarbonate 650 MG Tablet NG ×3 (05:43→21:10)
[2024-06-13] MEDS: Heparin Injection (Vial) 5,000 UNIT/ML VIAL 5000 UNIT SC ×2 (05:43→13:19)
[2024-06-13 05:56] LABS: Hematocrit 22.8 % (40-54); Hemoglobin 7.1 g/dL (13.0-16.5); Mean Corp Hgb Conc 31.1 g/dL (32-36); Mean Corpuscular Hgb 31.8 pg (27.0-32.0); Mean Corpuscular Volume 102.2 fL (80-94); Mean Platelet Vol. 9.3 fl (6.2-12.0); POSITIVE COUNT YES; POSITIVE MORPHOLOGY YES; Platelet Count 64 K/mm3 (150-450); RBC Distribution Width SD 66.3 fl (35.1-43.9); Red Blood Count 2.23 M/mm3 (4.6-6.2); White Blood Count 5.1 K/mm3 (4.4-11.0)
[2024-06-13 06:06] LABS: Bedside Glucose 142 mg/dL (74-106)
[2024-06-13 06:17] LABS: Anion Gap 5 (5-15); BUN 32 mg/dL (7-18); BUN/Creat Ratio 7.9 RATIO (10-20); Calcium,Total 11.5 mg/dL (8.5-10.1); Chloride 110 mmol/L (98-107); Creatinine, Serum 4.07 mg/dL (0.70-1.30); EST Glomerular Filtration Rate 15 mL/min (>60); Est Glom Filt Rate - Afr Amer 18 mL/min (>60); Estimated Creatinine Clearance 13.76 ml/min; Glucose 173 mg/dL (74-106); Magnesium 2.5 mg/dL (1.6-2.6); Phosphorus 1.8 mg/dL (2.5-4.9); Potassium 3.3 mmol/L (3.5-5.1); Sodium Level 140 mmol/L (136-145)
[2024-06-13 06:50] LABS: Differential Indicated MANUAL DIFF
[2024-06-13 06:56] LABS: Eosinophil 7 % (0-5); Lymphocyte 9 % (19-41); Monocyte 6 % (0-10); Neutrophil-Band 11 % (0-5); Neutrophil-Segmented 65 % (47-70); Total Cells Counted 100 (MANUAL DIFF)
[2024-06-13 06:57] LABS: Anisocytosis 1+; Platelet Estimate MOD DEC (ADEQ)
[2024-06-13 06:58] LABS: Absolute Lymphocyte Count 0.46 X10^3/uL (0.83-4.51); Absolute Neutrophil Count 3.9 X10^3/uL (2.0-7.7)
[2024-06-13 07:19] LABS: AST(SGOT) 27 U/L (15-37); Alanine Aminotransfer ALT/SGPT 22 U/L (16-61); Albumin, Serum 2.3 g/dL (3.2-5.0); Alkaline Phosphatase 75 U/L (45-117); Bilirubin, Direct 0.28 mg/dL (0.00-0.30); Globulin 3.1 g/dL (2.2-4.2); Protein, Total 5.4 g/dL (6.4-8.2)
[2024-06-13] MEDS: Tacrolimus Anhydrous 1 MG Capsule 2 MG NG ×2 (07:39→21:09)
[2024-06-13] MEDS: NYSTATIN 500,000 UNIT/5 ML UDC 500000 UNIT PO ×4 (07:40→21:07)
[2024-06-13] MEDS: Metoclopramide 10 MG/2 ML Vial 5 MG IV ×2 (07:41→21:12)
[2024-06-13] MEDS: Clopidogrel Bisulfate 75 MG Tablet NG (07:41)
[2024-06-13] MEDS: Pyridoxine HCl 100 MG Tablet PO (07:41)
[2024-06-13] MEDS: Menthol/Lanolin/Calamine/Znox 113 GM Tube 1 APPLIC TOPICAL ×2 (07:43→21:07)
[2024-06-13] MEDS: Nystatin Powder 15gm Bottle 1 APPLIC TOPICAL ×2 (07:43→21:08)
[2024-06-13] MEDS: Chlorhexidine 15 ML PO ×2 (07:43→21:12)
[2024-06-13] MEDS: Pantoprazole Sodium 40 MG in 0.9% Normal Saline (100mL MB+) 100 ML 330 MG IV ×2 (07:54→21:06)
[2024-06-13] MEDS: Potassium Phosphate 21 MM in 0.9% Normal Saline (250mL Bag) 250 ML 84 MM IV (08:43)
[2024-06-13] MEDS: Piperacil/Tazobactam 3.375 GM in 0.9% Normal Saline (50mL MB+) 50 ML IV (08:43)
[2024-06-13] MEDS: Potassium Chloride Oral Soln 20 MEQ/15 ML UDC 40 MEQ NG (08:52)
[2024-06-13 11:54] LABS: Bedside Glucose 144 mg/dL (74-106)
--- NOTE | 2024-06-13 14:29 | PN.HOSP_ITS ---
Reason for Visit Reason for Visit: Generalized weakness/malaise Subjective Subjective No significant issues overnight. Fentanyl has been off since 2 PM and patient is still quite sleepy. Has not had dialysis since fentanyl has been off so I do suspect there is going to be delaying clearance. Still awaiting bed at [facility]. Was declined at [facility] because his transplant team is at [facility]. Objective Data Objective Data Vital Signs: Vital Signs Temp Pulse Resp BP Pulse Ox O2 Del Method O2 Flow Rate 99.7 F H 83 16 120/72 97 Mechanical Ventilator 21 06/13/24 14:00 06/13/24 14:00 06/13/24 14:00 06/13/24 14:00 06/13/24 14:00 06/13/24 14:00 06/13/24 11:00 FiO2 21 06/13/24 14:00 Oxygen Flow Rate (L/min) 21 Oxygen Delivery Method Mechanical Ventilator Weight: 66.5 kg Body Mass Index (BMI) 23.0 Intake & Output: Intake and Output for Last 24 Hours 06/11/24 06/12/24 06/13/24 23:59 23:59 23:59 Intake Total 2380.83 / 2490.83 1105.83 / 1225.83 1366 / 1366 Output Total 70 / 95 1450 / 1450 30 / 30 Balance 2310.83 / 2395.83 -344.17 / -224.17 1336 / 1336 Medical Nutrition Assessment Dietitian: Malnutrition Criteria Met Start: 06/04/24 13:41 Freq: Status: Active Protocol: Document 06/12/24 09:39 REBECA (Rec: 06/12/24 09:39 REBECA [id number]) Nutrition Malnutrition Evidence of Malnutrition Exists Yes Malnutrition (severe): Chronic Evidenced By Suboptimal Energy Intake ( Severe),Weight Loss (Severe) Intake Problem Inadequate Oral Intake Etiology related to pt on vent and swallowing difficulty Signs/Symptoms as evidenced by NPO and need for enteral nutrition support Status Active Problem Clinical Problem Chronic Disease or Condition Related Malnutrition Etiology severe protein-calorie malnutrition in the context of chronic disease related to inadequate oral/energy intake and difficulty swallowing Signs/Symptoms 25% unintentional weight loss x 13 months, 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 Will restart TF of Nepro via NG tube to start at 15mL/hr and increase as tolerated by 10mL/hr Q 6-8 hours to goal rate 45 mL/hr. Flush with 120mL water Q 4 hours. TF at goal rate along with free water flushes will provide 1912 kcal, 87.5 gm pro and 1505 mL/ free water per day. Will adjust enteral nutrition support and flushes as needed. Lab / Micro Data 06/13/24 05:45 06/13/24 05:45 Labs: Laboratory Results - last 24 hr 06/12/24 17:08: POC Glucose 139 H 06/12/24 23:17: POC Glucose 140 H 06/13/24 05:41: POC Glucose 142 H 06/13/24 05:45: WBC 5.1, RBC 2.23 L, Hgb 7.1 L, Hct 22.8 L, MCV 102.2 H, MCH 31.8, MCHC 31.1 L, RDW Std Deviation 66.3 H, RDW Coeff of Ursula 20.0 H, Plt Count 64 L, MPV 9.3, Immature Gran % (Auto) INTERNATIONAL STUDENT ADVISOR, Neut % (Auto) INTERNATIONAL STUDENT ADVISOR, Lymph % (Auto) INTERNATIONAL STUDENT ADVISOR, [place] % (Auto) INTERNATIONAL STUDENT ADVISOR, Eos % (Auto) INTERNATIONAL STUDENT ADVISOR, Baso % (Auto) INTERNATIONAL STUDENT ADVISOR, Absolute Neuts (auto) 3.9, Absolute Lymphs (auto) 0.46 L, Total Counted 100, Neutrophils % (Manual) 65, B and Neutrophils % 11 H, Lymphocytes % (Manual) 9 L, Monocytes % (Manual) 6, E osinophils % (Manual) 7 H, Nucleated RBC % INTERNATIONAL STUDENT ADVISOR, Platelet Estimate MOD DEC, Anisocytosis 1+, Sodium 140, Potassium 3.3 L, Chloride 110 H, Carbon Dioxide 25.0, Anion Gap 5, BUN 32 H, Creatinine 4.07 H, Estim Creat Clear Calc 13.76, E st GFR (MDRD) Af Amer 18 L, Est GFR (MDRD) Non-Af 15 L, BUN/Creatinine Ratio 7.9 L, Glucose 173 H, Calcium 11.5 H, Phosphorus 1.8 L, Magnesium 2.5, Total Bilirubin 0.70, Direct Bilirubin 0.28, AST 27, ALT 22, Alkaline Phosphatase 75, Total Protein 5.4 L, Albumin 2.3 L, Globulin 3.1 06/13/24 11:35: POC Glucose 144 H Micro: Microbiology 06/09/24 15:30 Sputum, Induced/Lukens Gram Stain - Final 06/09/24 15:30 Sputum, Induced/Lukens Respiratory Culture - Final 06/11/24 05:40 Stool Stool Occult Blood (ZITA) - Final 06/09/24 07:10 Gastric Fluid/Contents Gastric Occult Blood - Final 06/01/24 13:16 Urine, Clean Catch Urine Culture - Final Klebsiella pneumoniae sp pneum Radiography Diagnostic Testing: Radiology Impression Chest X-Ray 06/12/24 06:30 IMPRESSION: No change from prior study. Electronically Signed: Lavell Leon MD at 16:27 EDT , Physical Exam Const no apparent distress and average body habitus; Negative for healthy appearing or well nourished Constitutional Narrative: Frail-appearing, elderly, white male, lying in bed intubated and sedated, eyes are close but patient resists by squinting his eyes when I do try to open them to examine his pupils, does not appear toxic or uncomfortable at this time HEENT normocephalic, head/scalp atraumatic and moist oral mucous membranes HEENT Narrative: ET tube and OG in place Resp normal respiratory effort, normal air movement, no retractions, no use of accessory muscles and clear to auscultation bilaterally Resp Narrative: Comfortable breathing on the ventilator Auscultation: Negative for rales, rhonchi or wheezes Cardio regular rate, regular rhythm, S1 normal heart sound, S2 normal heart sound, no murmurs, no rub, no gallops and no clicks GI normal to inspection, nondistended, normoactive bowel sounds, soft to palpation and non-tender Extremity no clubbing, cyanosis or edema Extremity Narrative: Radial and pedal pulses are 2+, severely decreased lean muscle mass Neuro Neuro Narrative: Intubated and sedated, hyperreflexive throughout Psych Psych Narrative: Unable to assess due to intubation and sedation Assessment & Plan Assessment/Plan (1) Failure to thrive: (2) General weakness: (3) Hypercalcemia: (4) Toxic metabolic encephalopathy: PLAN: Plan Acute respiratory failure secondary to altered mentation and decreased ability to protect airway -Intubated on 06/09/2024 for airway protection with decreased mentation and increased respiratory distress -Avoid propofol for sedation with hypercalcemia -Continue fentanyl for sedation--> Fentanyl still ordered but has been on hold since 2 PM yesterday -This was held after dialysis so suspect patient will have delayed clearance and this may explain why he is still quite sleepy -MRI of the brain unchanged from previous -EEG not showing any signs of seizure activity -Neurology agrees with current workup and recommend transfer to tertiary center soon as possible -Declined at [facility], awaiting bed at [facility] -Mental status will probably be rate limiting step to extubation -Pulmonary/critical care medicine following Aspiration pneumonia -Culture finalized as polymicrobial -Will narrow to Unasyn based on culture -Day 4 of 7 for antibiotics Generalized weakness/debility -Suspect multifactorial -CT of the brain unremarkable for any acute findings -MRI shows only previous strokes -Continue PT/OT/speech therapy as able after extubation -NG in place and will continue tube feeds -Initial plan was for transfer to [facility] with liver service consultation as patient has 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 -[facility] End-stage renal disease -Dialysis dependent -Vascular surgery was consulted for suture removals for AV fistula that was created on 05/05/2024 -Vascular surgery has been unable to see him and sutures -->discussed with Vascular and ok to hold off until acute issues have resolved -AV fistula is not usable at this point -Right stage I basilic fistula creation was performed on 05/05/2024 -Continue dialysis per vascular access in the form of tunneled dialysis catheter in right chest -Nephrology is following -Continue home sodium bicarb Severe hypercalcemia -Patient did have a slight drop in calcium today but I anticipate is related to pamidronate given on 06/09 -Calcium 14.9 06/10--> 13.2 06/11--> 12.9 06/12-->11.5 06/13 -Imaging has been unremarkable for any malignancy -Unable to do bone scan due to the fact the patient is intubated -PTH is not markedly elevated for patient on dialysis -STEFAN, kappa and lambda are slightly elevated but appropriate for end-stage renal disease -Vitamin D 25 and vitamin D 1-25 are within normal limits -PTH RP remains pending -Highly suspect this is contributing to his altered mental status--> neurology agrees -Patient did receive 2 doses of calcitonin at 200 units on 06/06/2024 and 400 units on 06/07/2024 and this appears to be nonresponsive to the calcitonin -1 dose of pamidronate given on 06/09/2024 per nephrology recs--> is helping -Does not appear we will need to give Prolia but we do have okay from pharmacy if needed -Calcium has not markedly decreased with dialysis however we only have 1 dialysis bath available that is higher in calcium--> suspect he would respond better to a dialysis bath with less calcium Hypokalemia -40 mEq P.o. potassium replacement via tube -Recheck lab in a.m. Hypophosphatemia -21 normal replacement via IV -Recheck lab in a.m. 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 -Discussed with GI and they feel that this is likely related to his chronic pancreatitis -No current intervention needed Hypernatremia/hyperchloremia -Resolved -Monitor Toxic/metabolic encephalopathy -Related to the above -CT brain was unremarkable -MRI was unremarkable -Should improve once we can correct his electrolyte abnormalities -Tacrolimus was within normal limits Klebsiella UTI -Treatment completed Pericardial effusion -CT of the chest showed moderate effusion--> follow-up echocardiogram showed EF of 65% with stage I diastolic dysfunction, moderate concentric LVH and small to medium sized pericardial effusion with no evidence of tamponade -Likely has mild pericardial effusion related to his renal dysfunction History of alcoholic liver cirrhosis status post transplant - reports transplant 2007 -Ammonia is normal x 2 -Hold lactulose for now as patient is having profuse amount of bowel movements -Will monitor for restart -We have had to hold his CellCept due to inability to crush and placed on NG -Tacrolimus level was within normal limits and will restart as above -Have called [facility] to discuss case with the transplant team at [facility] but have not yet received a call back History of atrial fibrillation -Continue home carvedilol via G-tube -Continue to hold diltiazem for now -Patient does not appear to be chronically anticoagulated at baseline History of stroke -Patient with multifocal strokes on imaging -Appears to have significant small vessel disease as well -Continue home plavix via NG -Continue to address modifiable risk factors as able Essential hypertension -Patient is on midodrine at home currently on hold as blood pressures have been elevated -Continue carvedilol -Continue to hold diltiazem -Continue home hydralazine -As needed hydralazine available GERD -IV PPI twice daily BPH with obstruction -Flomax on hold due to the fact that it is not crushable -Patient does still make some urine Pancytopenia -White count is normalizing with antibiotics suspect elevation was related to infection -Continue to monitor -Hemoglobin and platelets are slightly trending down -With negative Hemoccult and Gastroccult suspect is related to blood draws -May need transfusion and if he does he will need CMV negative irradiated blood due to his history of transplant -Gastroccult and Hemoccult negative DM-2 -Increase basal insulin to 14 units (home dose 4 units)--> continue for today but if further trend up tomorrow will increase dose -Blood sugar control is improved with fasting sugar this morning at 173 -Continue to monitor and adjust insulins as needed -Continue SSI every 6 -Patient is on tube feed at goal rate Hyperlipidemia -Continue home statin Depression -Continue home sertraline DVT/GI prophylaxis -Hold subcu heparin due to thrombocytopenia -Start SCDs and hold chemoprophylaxis until platelet count greater than 75,000 -Protonix 40 mg daily IV CODE STATUS -Full code Disposition: -Still awaiting bed at [facility] x 9 days. [facility] declined patient due to his transplant surgery being at [facility] Charges/Coding Visit Charges Inpatient E&M: 12727 Subs Hosp L2
--- NOTE | 2024-06-13 15:40 | PCM.PN.TICU ---
Objective Data Objective Data Vital Signs: Vital Signs Last response Temperature 37.6 C H 06/13/24 14:00 Temperature Source Core 06/13/24 14:00 Pulse Rate 88 06/13/24 15:00 Pulse Strength Normal (2+) 06/13/24 09:30 Respiratory Rate 17 06/13/24 15:00 Respiratory Effort Mechanically Ventilated 06/13/24 15:30 Respiratory Depth Normal 06/13/24 04:00 Respiratory Pattern Normal 06/13/24 13:02 Blood Pressure 107/52 L 06/13/24 15:00 Blood Pressure Mean 70 06/13/24 15:00 Blood Pressure Source Monitor 06/13/24 15:00 Blood Pressure Position Semi-Fowlers 06/13/24 15:00 Blood Pressure Location Left Arm 06/13/24 15:00 Pulse Ox 94 06/13/24 15:00 Oxygen Delivery Method Mechanical Ventilator 06/13/24 15:30 Oxygen Flow Rate (L/min) 21 06/13/24 11:00 Fraction of Inspired Oxygen (FIO2) 21 06/13/24 15:30 I&O: I&O Last 24 Hours 06/12/24 06/13/24 06/13/24 23:59 11:59 23:59 Intake Total 778.33 / 1225.83 1196 / 1486 290 / 1486 Output Total 100 / 1450 30 / 30 Balance 678.33 / -224.17 1166 / 1456 290 / 1456 I&O: Total Stay 06/01/24 11:01 thru 06/13/24 15:30 Intake Total 97811.2500 Output Total 00973 Balance 5946.2500 Current Meds Ordered / Administered: Current meds ordered / Administered Generic Name Dose Route Start Last Admin Trade Name Freq PRN Reason Stop Dose Admin Acetaminophen 650 mg 06/05/24 21:17 06/13/24 01:06 Acetaminophen 650 Mg/20 Ml Udc NG 650 mg Q6H PRN PRN Administration Pain 1-10 Or Fever >100.7 Atorvastatin Calcium 40 mg 06/05/24 22:00 06/12/24 21:03 Atorvastatin Calcium 40 Mg Tablet NG 40 mg QHS HIRAM Administration Calamine/Phenol 1 applic 06/01/24 22:00 06/13/24 07:43 Menthol/Lanolin/Calamine/Znox 113 Gm Tube TOPICAL 1 applic BID HIRAM Administration Protocol Carvedilol 25 mg 06/08/24 22:00 06/09/24 21:22 Carvedilol 25 Mg Tablet NG Not Given BID [facility] Protocol Chlorhexidine Gluconate 1 each 06/11/24 10:00 06/13/24 01:04 Chlorhexidine Gluc 2% Cloth 1 Each [place] TOPICAL 1 each DAILY HIRAM Administration Chlorhexidine Gluconate 15 ml 06/10/24 22:00 06/13/24 07:43 Chlorhexidine 15 Ml PO 15 ml BID HIRAM Administration Clopidogrel Bisulfate 75 mg 06/06/24 10:00 06/13/24 07:41 Clopidogrel Bisulfate 75 Mg Tablet NG 75 mg DAILY HIRAM Administration Glucagon 1 mg 06/01/24 19:28 Glucagon 1 Mg/Ml Syringe IM X1 PRN Hypoglycemia Protocol Heparin Sodium (Porcine) 5,000 unit 06/05/24 14:00 06/13/24 13:19 Heparin Injection (Vial) 5,000 Unit/Ml Vial SC 5,000 unit Q8 HIRAM Administration Hydralazine HCl 50 mg 06/05/24 22:00 06/09/24 21:22 Hydralazine 50 Mg Tablet NG Not Given Q12 [facility] Protocol Hydralazine HCl 10 mg 06/06/24 07:22 06/06/24 12:08 Hydralazine 20 Mg/Ml Vial IV 10 mg Q6H PRN PRN Administration Blood Pressure >160/110 Protocol Dextrose 250 mls @ 0 mls/hr 06/01/24 19:28 Dextrose 10%-Water IV .Q0M PRN HYPOGLYCEMIA Protocol As Directed Enteral Nutritional Formula 1,000 mls @ 45 mls/hr 06/06/24 11:30 06/13/24 11:39 Nepro Carb Steady GT 35 mls/hr .[id number] HIRAM Infusion Fentanyl 100 mls @ 5 mls/hr 06/09/24 15:30 06/13/24 13:33 CONT INF Not Given UD [facility] Protocol 50 MCG/HR Pantoprazole Sodium 40 mg/ 110 mls @ 330 mls/hr 06/10/24 10:00 06/13/24 08:17 Sodium Chloride IV Infused Q12 HIRAM Infusion Ampicillin Sodium/Sulbactam 112 mls @ 150 mls/hr 06/13/24 22:00 Sodium 3 gm/ Sodium Chloride IV QHS [facility] Insulin Glargine 14 unit 06/13/24 22:00 Insulin Glargine-Yfgn 100 Unit/Ml Pen SC QHS [facility] Insulin Human Lispro 0 unit 06/07/24 00:01 06/13/24 11:36 Insulin Lispro 100 Unit/Ml Insuln.Pen SC Not Given Q6H [facility] Protocol Lactulose 30 gm 06/08/24 22:00 06/13/24 08:10 Lactulose 20 Gm/30 Ml Udc NG Not Given TID [facility] Metoclopramide HCl 5 mg 06/12/24 10:00 06/13/24 07:41 Metoclopramide 10 Mg/2 Ml Vial IV 5 mg BID HIRAM Administration Nitroglycerin 0.4 mg 06/01/24 16:15 Nitroglycerin (Inpatient Use) 0.4 Mg Tab.Subl SL Q5M PRN CARDIAC/CHEST PAIN Nystatin 1 applic 06/03/24 10:00 06/13/24 07:43 Nystatin Powder 15gm Bottle TOPICAL 1 applic BID HIRAM Administration Protocol Nystatin 500,000 unit 06/10/24 18:00 06/13/24 13:20 Nystatin 500,000 Unit/5 Ml Udc PO 500,000 unit 4X/DAY [facility] Administration Prochlorperazine Edisylate 5 mg 06/01/24 16:15 06/08/24 05:25 Prochlorperazine 10 Mg/2 Ml Vial IV 5 mg Q4H PRN PRN Administration Breakthrough nausea/vomiting Pyridoxine HCl 100 mg 06/02/24 10:00 06/13/24 07:41 Pyridoxine Hcl 100 Mg Tablet PO 100 mg DAILY HIRAM Administration Senna/Docusate Sodium 2 tablet 06/05/24 21:15 Senna/Docusate Sodium 1 Tablet NG BID PRN PRN Constipation Sodium Bicarbonate 650 mg 06/05/24 22:00 06/13/24 13:18 Sodium Bicarbonate 650 Mg Tablet NG 650 mg TID [facility] Administration Sodium Chloride 10 - 40 ml 06/01/24 18:05 06/13/24 05:42 0.9% Saline Lock 10 Ml Syringe IV 20 ml UD PRN Administration SALINE FLUSH Tacrolimus 2 mg 06/05/24 22:00 06/13/24 07:39 Tacrolimus Anhydrous 1 Mg Capsule NG 2 mg BID HIRAM Administration Medical Records Data Medical Nutrition Assessment Dietitian: Malnutrition Criteria Met Start: 06/04/24 13:41 Freq: Status: Active Protocol: Document 06/12/24 09:39 REBECA (Rec: 06/12/24 09:39 [facility] [id number]) Nutrition Malnutrition Evidence of Malnutrition Exists Yes Malnutrition (severe): Chronic Evidenced By Suboptimal Energy Intake ( Severe),Weight Loss (Severe) Intake Problem Inadequate Oral Intake Etiology related to pt on vent and swallowing difficulty Signs/Symptoms as evidenced by NPO and need for enteral nutrition support Status Active Problem Clinical Problem Chronic Disease or Condition Related Malnutrition Etiology severe protein-calorie malnutrition in the context of chronic disease related to inadequate oral/energy intake and difficulty swallowing Signs/Symptoms 25% unintentional weight loss x 13 months, 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 Will restart TF of Nepro via NG tube to start at 15mL/hr and increase as tolerated by 10mL/hr Q 6-8 hours to goal rate 45 mL/hr. Flush with 120mL water Q 4 hours. TF at goal rate along with free water flushes will provide 1912 kcal, 87.5 gm pro and 1505 mL/ free water per day. Will adjust enteral nutrition support and flushes as needed. Lab / Micro Data 06/13/24 05:45 06/13/24 05:45 Labs: Laboratory Results - last 24 hr 06/12/24 17:08: POC Glucose 139 H 06/12/24 23:17: POC Glucose 140 H 06/13/24 05:41: POC Glucose 142 H 06/13/24 05:45: WBC 5.1, RBC 2.23 L, Hgb 7.1 L, Hct 22.8 L, MCV 102.2 H, MCH 31.8, MCHC 31.1 L, RDW Std Deviation 66.3 H, RDW Coeff of Ursula 20.0 H, Plt Count 64 L, MPV 9.3, Immature Gran % (Auto) DIRECTOR OF REVENUE CYCLE MANAGEMENT, Neut % (Auto) DIRECTOR OF REVENUE CYCLE MANAGEMENT, Lymph % (Auto) DIRECTOR OF REVENUE CYCLE MANAGEMENT, [place] % (Auto) DIRECTOR OF REVENUE CYCLE MANAGEMENT, Eos % (Auto) DIRECTOR OF REVENUE CYCLE MANAGEMENT, Baso % (Auto) DIRECTOR OF REVENUE CYCLE MANAGEMENT, Absolute Neuts (auto) 3.9, Absolute Lymphs (auto) 0.46 L, Total Counted 100, Neutrophils % (Manual) 65, Band Neutrophils % 11 H, Lymphocytes % (Manual) 9 L, Monocytes % (Manual) 6, Eosinophils % (Manual) 7 H, Nucleated RBC % DIRECTOR OF REVENUE CYCLE MANAGEMENT, Platelet Estimate MOD DEC, Anisocytosis 1+, Sodium 140, Potassium 3.3 L, Chloride 110 H, Carbon Dioxide 25.0, Anion Gap 5, BUN 32 H, Creatinine 4.07 H, Estim Creat Clear Calc 13.76, Est GFR (MDRD) Af Amer 18 L, Est GFR (MDRD) Non-Af 15 L, BUN/Creatinine Ratio 7.9 L, Glucose 173 H, Calcium 11.5 H, Phosphorus 1.8 L, Magnesium 2.5, Total Bilirubin 0.70, Direct Bilirubin 0.28, AST 27, ALT 22, Alkaline Phosphatase 75, Total Protein 5.4 L, Albumin 2.3 L, Globulin 3.1 06/13/24 11:35: POC Glucose 144 H Imaging Radiology Impression Chest X-Ray 06/12/24 06:30 IMPRESSION: No change from prior study. Electronically Signed: Lavell Leon MD at 16:27 EDT , Assessment and Plan . Assessment and plan: HPI 79 yo chronically ill and immunosuppressed man admitted 06/01/24 w/ FTT at home. Stable, but ill and hypoactive on admission. UCX revealed GNR - treated w/ IV ABX. He has ESRD and required HD M/W/F. Course has been c/b persistent hypercalcemia despite HD. He remotely underwent OLTx and receives CellCept and Prograf. Prograf level obtained, but has not been resulted. He has had declining LOC and required O-T intubation and MV support 06/09/24. CT brain NAP. pCXR unremarkable. Lab o/w largely unremarkable. Currently sedated/unresponsive. HD stable. Modest MV requirement. He is awaiting TX to tertiary facility. 06/13/24 Sedation off - he is restless - not responsive/cooperative Modest MV requirement - stable mechanics HD done yesterday Ca++ remains elevated, but trending down MRI brain noted - no acute findings PHYSICAL EXAM GEN restless, stuporous VS as above HEENT VICKY, NGT NECK supple COR RRR CHEST CTA ABD soft EXT minimal edema SKIN w/d JENNIFER grossly NF ASSESSMENT 1. Acute respiratory failure requiring MV support 2. Severe encephalopathy w/ stupor / coma 3. ESRD 4. Hypercalcemia 5. Remote OLTx - chronically received Cellcept and Prograf 6. DM 7. H/O VTED 8. UTI - treated 9. Fever - resolved 10. Ileus TREATMENT PLAN -MV support -follow clinical SUPPLIER DEVELOPMENT MANAGER exam -precedex as needed -could probably stop ABX soon -I would continue to hold Prograf -sq insulin -enteral nutrition as tolerated -HD M-W- -defer Ca++ management to Nephrology -sq UFH -prognosis very guarded Critical Care Time: 50 min The entirety of this encounter was done via Telemedicine
[2024-06-13] MEDS: dexMEDEtomidine 400 MCG in 0.9% Normal Saline (100mL Bag) 96 ML 8.3 MCG CONT INF (16:39)
[2024-06-13] MEDS: Insulin Lispro 100 UNIT/ML INSULN.PEN SC (17:39)
[2024-06-13 17:59] LABS: Bedside Glucose 158 mg/dL (74-106)
--- NOTE | 2024-06-13 19:27 | PCM.HOSP.N ---
Hospitalist Note Called [facility] transfer line this afternoon and requested to speak to the hepatology service with regards to the current condition and ask if there was anything else we should be doing with regards to his rejection medications as we are having to hold his Prograf due to the fact that he cannot take pills by mouth and they are not crushable per pharmacy to place down NGT. He remains on the Tacrolimus. No return call as of 7:30 pm. Transfer line was given my personal cell. If not transferred through the night will attempt to call again tomorrow.
[2024-06-13] MEDS: Ampicillin/Sulbactam 3 GM in 0.9% Normal Saline (100mL MB+) 100 ML IV (21:07)
[2024-06-13] MEDS: Atorvastatin Calcium 40 MG Tablet NG (21:08)
[2024-06-13] MEDS: NEPRO TUBE FEED 1,000 ML 45 ML GT (23:02)
[2024-06-13] MEDS: Insulin Glargine-YFGN 100 UNIT/ML Pen 14 UNIT SC (23:03)
[2024-06-13 23:24] LABS: Bedside Glucose 149 mg/dL (74-106)
[2024-06-14] VITALS (33 sets, daily range): BP systolic 103–153; BP diastolic 50–70; PULSE 47–85; RESP 14–18; TEMP 36.7–37.9; O2SAT 97–100; BMI 23.9
[2024-06-14 03:22] LABS: Absolute Lymphocyte Count 0.76 X10^3/uL (0.83-4.51); Absolute Neutrophil Count 3.7 X10^3/uL (2.0-7.7); Basophil# 0.02 X10^3/uL; Basophil% 0.4 % (0-1); Eosinophil# 0.12 X10^3/uL; Eosinophils% 2.2 % (0-5); Hematocrit 23.1 % (40-54); Hemoglobin 7.1 g/dL (13.0-16.5); Lymphocyte # 0.76 X10^3/ul (0.83-4.51); Lymphocyte % 13.6 % (19-41); Mean Corp Hgb Conc 30.7 g/dL (32-36); Mean Corpuscular Volume 104.1 fL (80-94); Mean Platelet Vol. 10.1 fl (6.2-12.0); Monocyte# 0.77 X10^3/uL; Monocyte% 13.8 % (0-10); NRBC Flagged by Analyzer 0.7 % (0-5); Neutrophil % 66.4 % (47-70); POSITIVE COUNT YES; POSITIVE MORPHOLOGY YES; Platelet Count 63 K/mm3 (150-450); RBC Distribution Width CV 20.6 % (11.6-14.6); RBC Distribution Width SD 72.7 fl (35.1-43.9); Red Blood Count 2.22 M/mm3 (4.6-6.2); White Blood Count 5.6 K/mm3 (4.4-11.0)
[2024-06-14 03:23] LABS: Differential Indicated SCAN CRITERIA MET
[2024-06-14 03:41] LABS: ALB/GLOB Ratio 0.6 RATIO (0.9-2.4); AST(SGOT) 18 U/L (15-37); Alanine Aminotransfer ALT/SGPT 24 U/L (16-61); Albumin, Serum 2.2 g/dL (3.2-5.0); Alkaline Phosphatase 76 U/L (45-117); Anion Gap 7 (5-15); BUN 41 mg/dL (7-18); BUN/Creat Ratio 8.2 RATIO (10-20); Chloride 114 mmol/L (98-107); Creatinine, Serum 5.02 mg/dL (0.70-1.30); EST Glomerular Filtration Rate 12 mL/min (>60); Est Glom Filt Rate - Afr Amer 14 mL/min (>60); Estimated Creatinine Clearance 11.16 ml/min; Globulin 3.5 g/dL (2.2-4.2); Glucose 159 mg/dL (74-106); Magnesium 2.5 mg/dL (1.6-2.6); Phosphorus 3.2 mg/dL (2.5-4.9); Potassium 4.1 mmol/L (3.5-5.1); Protein, Total 5.7 g/dL (6.4-8.2); Sodium Level 144 mmol/L (136-145)
[2024-06-14 04:11] LABS: Anisocytosis 1+; Platelet Estimate MOD DEC (ADEQ)
[2024-06-14] MEDS: dexMEDEtomidine 400 MCG in 0.9% Normal Saline (100mL Bag) 96 ML 8.3 MCG CONT INF (04:25)
[2024-06-14] MEDS: Lactulose 20 GM/30 ML UDC 30 GM NG (04:26)
[2024-06-14] MEDS: Sodium Bicarbonate 650 MG Tablet NG ×3 (04:26→20:33)
[2024-06-14] MEDS: CHLORHEXIDINE GLUC 2% CLOTH 1 EACH TOWELETTE TOPICAL (04:29)
[2024-06-14 05:21] LABS: Bedside Glucose 165 mg/dL (74-106)
[2024-06-14] MEDS: TITRATION PARAMETER CHANGE 1 EACH IV (05:35)
[2024-06-14] MEDS: Insulin Lispro 100 UNIT/ML INSULN.PEN SC ×4 (05:35→23:11)
--- NOTE | 2024-06-14 07:57 | PN.RENAL_ITS ---
Subjective Subjective Following for ESRD. Patient remains intubated on mechanical ventilator. Cannot do ROS. Awaiting transfer to [facility]. Objective Data Objective Data Vital Signs: Vital Signs Temp Pulse Resp BP Pulse Ox O2 Del Method O2 Flow Rate 99.4 F H 57 L 14 121/58 H 99 Mechanical Ventilator 21 06/14/24 07:00 06/14/24 07:00 06/14/24 07:00 06/14/24 07:00 06/14/24 07:00 06/14/24 07:00 06/13/24 11:00 FiO2 21 06/14/24 07:00 Oxygen Flow Rate (L/min) 21 Oxygen Delivery Method Mechanical Ventilator Weight: 69.1 kg Body Mass Index (BMI) 23.9 Intake & Output: Intake and Output for Last 24 Hours 06/12/24 06/13/24 06/14/24 23:59 23:59 23:59 Intake Total 1105.83 / 1225.83 2399.21 / 2407.51 187.00 / 187.00 Output Total 1450 / 1450 120 / 120 50 / 50 Balance -344.17 / -224.17 2279.21 / 2287.51 137.00 / 137.00 Medical Nutrition Assessment Dietitian: Malnutrition Criteria Met Start: 06/04/24 13:41 Freq: Status: Active Protocol: Document 06/12/24 09:39 REBECA (Rec: 06/12/24 09:39 REBECA [id number]) Nutrition Malnutrition Evidence of Malnutrition Exists Yes Malnutrition (severe): Chronic Evidenced By Suboptimal Energy Intake ( Severe),Weight Loss (Severe) Intake Problem Inadequate Oral Intake Etiology related to pt on vent and swallowing difficulty Signs/Symptoms as evidenced by NPO and need for enteral nutrition support Status Active Problem Clinical Problem Chronic Disease or Condition Related Malnutrition Etiology severe protein-calorie malnutrition in the context of chronic disease related to inadequate oral/energy intake and difficulty swallowing Signs/Symptoms 25% unintentional weight loss x 13 months, 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 Will restart TF of Nepro via NG tube to start at 15mL/hr and increase as tolerated by 10mL/hr Q 6-8 hours to goal rate 45 mL/hr. Flush with 120mL water Q 4 hours. TF at goal rate along with free water flushes will provide 1912 kcal, 87.5 gm pro and 1505 mL/ free water per day. Will adjust enteral nutrition support and flushes as needed. Lab / Micro Data 06/14/24 03:02 06/14/24 03:02 Labs: Laboratory Results - last 24 hr 06/13/24 11:35: POC Glucose 144 H 06/13/24 17:37: POC Glucose 158 H 06/13/24 22:58: POC Glucose 149 H 06/14/24 03:02: WBC 5.6, RBC 2.22 L, Hgb 7.1 L, Hct 23.1 L, MCV 104.1 H, MCH 32.0, MCHC 30.7 L, RDW Std Deviation 72.7 H, RDW Coeff of Ursula 20.6 H, Plt Count 63 L, MPV 10.1, Immature Gran % (Auto) 3.600 H, Neut % (Auto) 66.4, Lymph % (Auto) 13.6 L, [place] % (Auto) 13.8 H, Eos % (Auto) 2.2, Baso % (Auto) 0.4, Absolute Neuts (auto) 3.7, Absolute Lymphs (auto) 0.76 L, Nucleated RBC % 0.7, Platelet Estimate MOD DEC, Anisocytosis 1+, Sodium 144, Potassium 4.1, Chloride 114 H, Carbon Dioxide 23.0, Anion Gap 7, BUN 41 H, Creatinine 5.02 H, Estim Creat Clear Calc 11.16, Est GFR (MDRD) Af Amer 14 L, Est GFR (MDRD) Non-Af 12 L, BUN/Creatinine Ratio 8.2 L, Glucose 159 H, Calcium 11.0 H, Phosphorus 3.2, Magnesium 2.5, Total Bilirubin 0.50, AST 18, ALT 24, Alkaline Phosphatase 76, T otal Protein 5.7 L, Albumin 2.2 L, Globulin 3.5, Albumin/Globulin Ratio 0.6 L 06/14/24 05:03: POC Glucose 165 H Micro: Microbiology 06/09/24 15:30 Sputum, Induced/Lukens Gram Stain - Final 06/09/24 15:30 Sputum, Induced/Lukens Respiratory Culture - Final 06/11/24 05:40 Stool Stool Occult Blood (ZITA) - Final 06/09/24 07:10 Gastric Fluid/Contents Gastric Occult Blood - Final 06/01/24 13:16 Urine, Clean Catch Urine Culture - Final Klebsiella pneumoniae sp pneum Physical Exam Narrative On ventilator S1, S2, RRR Lung sounds clear anteriorly Abdomen soft, nontender No edema indwelling quezada with scant yellow urine in tubing Right IJ tunneled hemodialysis catheter dressing clean, dry and intact Right mid arm AV fistula with good thrill and bruit. Sutures intact Assessment & Plan Assessment/Plan (1) ESRD (end stage renal disease) on dialysis: (2) General weakness: (3) Anemia of chronic disease: PLAN: Plan Impression/Plan: The patient is a 79-year-old male with past medical history significant for ESRD who dialyzes at [facility] Saturday. 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 The patient was brought to the emergency room for evaluation of weakness and difficulty standing. He is admitted for evaluation of debility and diarrhea. The patient is also being treated for acute hypoxic respiratory failure due to aspiration pneumonia. He was intubated on 06/09/2024 and is being treated for pneumonia with antibiotic. He is awaiting transfer to [facility] for evaluation of ongoing encephalopathy. Nephrology is following patient for ESRD as well as hypercalcemia. ESRD Patient undergoing hemodialysis today with fluid removal as patient and BP tolerates. The patient was dialyzed on 06/12/2024. He remains hemodynamically stable. Will plan for dialysis again tomorrow on 06/15/2024 as outpatient dialysis schedule is Saturday. He has been tolerating dialysis relatively well. I do not think encephalopathy is related to ESRD. Hypercalcemia. Serum calcium was as high as 14.9 mg/dL on 06/10/2024. Patient was treated with renal adjusted dose of the pamidronate on 06/09/2024. Calcium level is better today at 11.0 mg/dL. Agree with holding off on denosumab. Etiology for hypercalcemia is still unclear. Studies for cause of hypercalcemia are all negative so far. PTH related peptide is still pending.
[2024-06-14] MEDS: Tacrolimus Anhydrous 1 MG Capsule 2 MG NG ×2 (10:22→20:35)
[2024-06-14] MEDS: Menthol/Lanolin/Calamine/Znox 113 GM Tube 1 APPLIC TOPICAL ×2 (10:23→20:36)
[2024-06-14] MEDS: Nystatin Powder 15gm Bottle 1 APPLIC TOPICAL ×2 (10:23→20:36)
[2024-06-14] MEDS: Pyridoxine HCl 100 MG Tablet PO (10:23)
[2024-06-14] MEDS: Metoclopramide 10 MG/2 ML Vial 5 MG IV ×2 (10:23→20:35)
[2024-06-14] MEDS: NYSTATIN 500,000 UNIT/5 ML UDC 500000 UNIT PO ×4 (10:23→20:34)
[2024-06-14] MEDS: Clopidogrel Bisulfate 75 MG Tablet NG (10:23)
[2024-06-14] MEDS: Chlorhexidine 15 ML PO ×2 (10:24→20:33)
[2024-06-14] MEDS: Pantoprazole Sodium 40 MG in 0.9% Normal Saline (100mL MB+) 100 ML 330 MG IV ×2 (10:29→20:31)
[2024-06-14] MEDS: Vancomycin IV 500 MG/100 ML BAG 100 MG IV (11:01)
[2024-06-14] MEDS: 0.9% Saline Lock 10 ML Syringe IV (11:02)
--- NOTE | 2024-06-14 11:39 | PCM.RX.CS ---
Consult Antibiotic Management Pharmacy has been consulted to manage selected antibiotic: Vancomycin Type of Intervention Type of Consult: New start Labs Labs: Sodium 144 mmol/L (136-145) 06/14/24 03:02 Potassium 4.1 mmol/L (3.5-5.1) 06/14/24 03:02 Chloride 114 mmol/L (98-107) H 06/14/24 03:02 Carbon Dioxide 23.0 mmol/L (21.0-32.0) 06/14/24 03:02 Anion Gap 7 (5-15) 06/14/24 03:02 BUN 41 mg/dL (7-18) H 06/14/24 03:02 Creatinine 5.02 mg/dL (0.70-1.30) H 06/14/24 03:02 Est GFR (MDRD) Af Amer 14 mL/min (>60) L 06/14/24 03:02 Est GFR (MDRD) Non-Af 12 mL/min (>60) L 06/14/24 03:02 BUN/Creatinine Ratio 8.2 RATIO (10-20) L 06/14/24 03:02 Glucose 159 mg/dL (74-106) H 06/14/24 03:02 Microbiology Microbiology: Microbiology 06/09/24 15:30 Sputum, Induced/Lukens Gram Stain - Final 06/09/24 15:30 Sputum, Induced/Lukens Respiratory Culture - Final 06/11/24 05:40 Stool Stool Occult Blood (ZITA) - Final 06/09/24 07:10 Gastric Fluid/Contents Gastric Occult Blood - Final 06/01/24 13:16 Urine, Clean Catch Urine Culture - Final Klebsiella pneumoniae sp pneum Goal Trough Goal Trough: 15-20 mcg/mL Pharmacy Plan for Drug Dosing Pharmacy Plan for Drug Dosing: NEW START IV VANCOMYCIN Consulting Physician: Dr. Aroldo Lopez Indication: Infection r/o Goal Trough: 15-20 SrCr: Patient is HD dependent- M// schedule CrCl: n/a Comments: Patient was previously on vancomycin, this is a resumption of vanco dosing. The patient had initial dose of 1g on 06/10, then had HD session on 06/12. The previous order for vancomycin was d/c'd prior to 2nd dose of vanco post-HD that was due 06/12. Pharmacy contacted nursing, the patient's last HD session was on 06/12. With this in mind, will continue HD dosing protocol at this time. Will give 500mg IV x1 today (2nd total vancomycin dose for hospitalization), then schedule a random pre-HD level for tomorrow AM. Further dosing based on pre-HD levels. Vancomycin Dose: 500mg IV x1 today, 06/14 Pending Level: *RANDOM* pre-HD level 06/15/24 with AM labs. Pharmacy Service will continue to monitor and adjust dosing as required.
--- NOTE | 2024-06-14 11:51 | RAD_ITS ---
INDICATION: copious secretions EXAMINATION/TECHNIQUE: X-RAY - XR Chest 1 View COMPARISON: Prior study dated: 06/12/2024 FINDINGS: LINES/DEVICES: Endotracheal tube, nasogastric tube and right-sided permacath in stable position. LUNGS: Left retrocardiac infiltrate/atelectasis unchanged. No definite pleural effusions. MEDIASTINUM AND CARDIOVASCULAR STRUCTURES: Cardiac silhouette not enlarged. Central airways and mediastinal contour are unremarkable. BONES AND SOFT TISSUES: Unremarkable. RAD/Chest 1 View (Portable) IMPRESSION: No significant change. Electronically Signed: Holland Grossman MD at 13:31 EDT ,
--- NOTE | 2024-06-14 12:29 | PCM.PN.HOSP ---
Reason for Visit Reason for Visit: Diagnoses Anemia in other chronic diseases classified elsewhere (06/03/24) Hypercalcemia (06/03/24) Other toxic encephalopathy (06/03/24) End stage renal disease (06/03/24) Weakness (06/03/24) Dependence on renal dialysis (06/03/24) Subjective Subjective No significant issues overnight. Mental status seems to be improving slightly per discussion with nursing. They seem to think that he is tracking a bit more but still not following commands. Objective Data Objective Data Vital Signs: Vital Signs Temp Pulse Resp BP Pulse Ox O2 Del Method O2 Flow Rate 98.2 F 69 16 123/50 H 100 Mechanical Ventilator 21 06/14/24 11:00 06/14/24 11:08 06/14/24 11:08 06/14/24 11:00 06/14/24 11:08 06/14/24 11:00 06/13/24 11:00 FiO2 21 06/14/24 11:08 Oxygen Flow Rate (L/min) 21 Oxygen Delivery Method Mechanical Ventilator Weight: 69.1 kg Body Mass Index (BMI) 23.9 Intake & Output: Intake and Output for Last 24 Hours 06/12/24 06/13/24 06/14/24 23:59 23:59 23:59 Intake Total 1105.83 / 1225.83 2399.21 / 2407.51 455.00 / 455.00 Output Total 1450 / 1450 120 / 120 50 / 50 Balance -344.17 / -224.17 2279.21 / 2287.51 405.00 / 405.00 Medical Nutrition Assessment Dietitian: Malnutrition Criteria Met Start: 06/04/24 13:41 Freq: Status: Active Protocol: Document 06/12/24 09:39 REBECA (Rec: 06/12/24 09:39 REBECA [id number]) Nutrition Malnutrition Evidence of Malnutrition Exists Yes Malnutrition (severe): Chronic Evidenced By Suboptimal Energy Intake ( Severe),Weight Loss (Severe) Intake Problem Inadequate Oral Intake Etiology related to pt on vent and swallowing difficulty Signs/Symptoms as evidenced by NPO and need for enteral nutrition support Status Active Problem Clinical Problem Chronic Disease or Condition Related Malnutrition Etiology severe protein-calorie malnutrition in the context of chronic disease related to inadequate oral/energy intake and difficulty swallowing Signs/Symptoms 25% unintentional weight loss x 13 months, 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 Will restart TF of Nepro via NG tube to start at 15mL/hr and increase as tolerated by 10mL/hr Q 6-8 hours to goal rate 45 mL/hr. Flush with 120mL water Q 4 hours. TF at goal rate along with free water flushes will provide 1912 kcal, 87.5 gm pro and 1505 mL/ free water per day. Will adjust enteral nutrition support and flushes as needed. Lab / Micro Data 06/14/24 03:02 06/14/24 03:02 Labs: Laboratory Results - last 24 hr 06/13/24 17:37: POC Glucose 158 H 06/13/24 22:58: POC Glucose 149 H 06/14/24 03:02: WBC 5.6, RBC 2.22 L, Hgb 7.1 L, Hct 23.1 L, MCV 104.1 H, MCH 32.0, MCHC 30.7 L, RDW Std Deviation 72.7 H, RDW Coeff of Ursula 20.6 H, Plt Count 63 L, MPV 10.1, Immature Gran % (Auto) 3.600 H, Neut % (Auto) 66.4, Lymph % (Auto) 13.6 L, Porter % (Auto) 13.8 H, Eos % (Auto) 2.2, Baso % (Auto) 0.4, Absolute Neuts (auto) 3.7, Absolute Lymphs (auto) 0.76 L, Nucleated RBC % 0.7, Platelet Estimate MOD DEC, Anisocytosis 1+, Sodium 144, Potassium 4.1, Chloride 114 H, Carbon Dioxide 23.0, Anion Gap 7, BUN 41 H, Creatinine 5.02 H, Estim Creat Clear Calc 11.16, Est GFR (MDRD) Af Amer 14 L, Est GFR (MDRD) Non-Af 12 L, BUN/Creatinine Ratio 8.2 L, Glucose 159 H, Calcium 11.0 H, Phosphorus 3.2, Magnesium 2.5, Total Bilirubin 0.50, AST 18, ALT 24, Alkaline Phosphatase 76, Total Protein 5.7 L, Albumin 2.2 L, Globulin 3.5, Albumin/Globulin Ratio 0.6 L 06/14/24 05:03: POC Glucose 165 H Micro: Microbiology 06/09/24 15:30 Sputum, Induced/Lukens Gram Stain - Final 06/09/24 15:30 Sputum, Induced/Lukens Respiratory Culture - Final 06/11/24 05:40 Stool Stool Occult Blood (ZITA) - Final 06/09/24 07:10 Gastric Fluid/Contents Gastric Occult Blood - Final 06/01/24 13:16 Urine, Clean Catch Urine Culture - Final Klebsiella pneumoniae sp pneum Physical Exam Const alert, no apparent distress and average body habitus; Negative for healthy appearing or well nourished Constitutional Narrative: Frail-appearing, elderly, white male, lying in bed intubated and sedated, pupils are pinpoint, appears comfortable, does not appear toxic General Appearance: cooperative HEENT normocephalic, head/scalp atraumatic and moist oral mucous membranes HEENT Narrative: ET tube and NG Eyes Eyes Narrative: Pupils are pinpoint, conjunctiva pale, no scleral icterus Neck supple Neck Narrative: Trachea midline Resp normal respiratory effort, normal air movement, no retractions, no use of accessory muscles and clear to auscultation bilaterally Resp Narrative: Comfortable breathing on the ventilator Auscultation: Negative for rales, rhonchi or wheezes Cardio regular rate, regular rhythm, S1 normal heart sound, S2 normal heart sound, no murmurs, no rub, no gallops and no clicks GI normal to inspection, nondistended, normoactive bowel sounds, soft to palpation and non-tender Extremity no clubbing, cyanosis or edema Extremity Narrative: Radial and pedal pulses are 2+, severely decreased lean muscle mass Skin no jaundice, no petechiae and no mottling Skin Narrative: Dialysis catheter in right chest-clean dry and intact Neuro Neuro Narrative: Intubated and sedated, hyperreflexive throughout, during sedation vacations patient does move all extremities without deficit Psych Psych Narrative: Unable to assess due to intubation and sedation Mood & Affect: flat affect Assessment & Plan Assessment/Plan (1) Failure to thrive: (2) General weakness: (3) Hypercalcemia: (4) Toxic metabolic encephalopathy: PLAN: Plan Acute respiratory failure secondary to altered mentation and decreased ability to protect airway -Intubated on 06/09/2024 for airway protection with decreased mentation and increased respiratory distress -EEG not showing any signs of seizure activity -Critical care medicine added Precedex and stop fentanyl for sedation however do suspect this may be causing drug fever -May need to consider change-->await [facility] input -Neurology agrees with current workup and recommend transfer to tertiary center soon as possible -Declined at [facility], awaiting bed at [facility] -Per phone call today there are 10 people waiting for critical care beds some are from F facilities which they take in priority to outside hospital transfers per discussion with the call line -Mental status will probably be rate limiting step to extubation -Pulmonary/critical care medicine following Aspiration pneumonia -Culture finalized as polymicrobial -Will narrow to Unasyn based on culture -Day 5 of 7 for antibiotics Fever -Blood cultures obtained and vancomycin added -Highly suspect it may be related to Precedex -Prudent to be aggressive given history of immunosuppression -White count is actually improving and left shift has resolved -Monitor counts and cultures -Current antibiotics are Unasyn and vancomycin Generalized weakness/debility -Suspect multifactorial -CT of the brain unremarkable for any acute findings -MRI shows only previous strokes with stable encephalomalacia -Continue PT/OT/speech therapy as able after extubation -Continue NG tube feeds -Initial plan was for transfer to [facility] with liver service consultation as patient has 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 -Still awaiting transfer to [facility] End-stage renal disease -Dialysis dependent -Vascular surgery was consulted for suture removals for AV fistula that was created on 05/05/2024 -Vascular surgery has been unable to see him and sutures -->discussed with Vascular and ok to hold off until acute issues have resolved -AV fistula is not usable at this point -Right stage I basilic fistula creation was performed on 05/05/2024 -Continue dialysis per vascular access in the form of tunneled dialysis catheter in right chest -Nephrology is following -Continue home sodium bicarb Severe hypercalcemia -Patient did have a slight drop in calcium today but I anticipate is related to pamidronate given on 06/09 -Calcium 14.9 06/10--> 13.2 06/11--> 12.9 06/12-->11.5 06/13--> 11.0 06/14/2024 -Imaging has been unremarkable for any malignancy -Unable to do bone scan due to the fact the patient is intubated -PTH is not markedly elevated for patient on dialysis -STEFAN, kappa and lambda are slightly elevated but appropriate for end-stage renal disease -Vitamin D 25 and vitamin D 1-25 are within normal limits -PTH-rp which remains pending--> drawn on 06/09/2024 -Highly suspect this is contributing to his altered mental status--> neurology agrees -Patient did receive 2 doses of calcitonin at 200 units on 06/06/2024 and 400 units on 06/07/2024 and this appears to be nonresponsive to the calcitonin -1 dose of pamidronate given on 06/09/2024 per nephrology recs--> calcium continues to trend down -Does not appear we will need to give Prolia but we do have okay from pharmacy if needed -Unfortunately we only have a higher calcium bath for dialysis so this has made bring his calcium down more difficult Hypokalemia - resolved -Continue to trend Hypophosphatemia -resolved -Continue to trend Severe malnutrition -Dietitian following -Continue tube feeds as ordered -Avoid disruption in tube feeds -Supplements per dietitian 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 -Discussed with GI and they feel that this is likely related to his chronic pancreatitis -No current intervention needed Hypernatremia/hyperchloremia -Chloride is trending up as a sodium -Will give 1 L of D5W Toxic/metabolic encephalopathy -Related to the above -CT brain was unremarkable -MRI was unremarkable -Should improve once we can correct his electrolyte abnormalities -Tacrolimus was within normal limits Klebsiella UTI -Treatment completed Pericardial effusion -CT of the chest showed moderate effusion--> follow-up echocardiogram showed EF of 65% with stage I diastolic dysfunction, moderate concentric LVH and small to medium sized pericardial effusion with no evidence of tamponade -Likely has mild pericardial effusion related to his renal dysfunction History of alcoholic liver cirrhosis status post transplant - reports transplant 2007 -Ammonia is normal x 2 -Lactulose daily -Monitor for bowel movements Liver enzymes are stable- -We have had to hold his CellCept due to inability to crush and placed on NG--> trying to discuss further with transplant team--per discussion with nephrology when they have intubated kidney transplants they often give the medication liquid via the OG or NG -Awaiting to verify with transplant creative services specialist -Tacrolimus level was within normal limits at 9.7--> continue tacrolimus -Called Transfer center at [facility] to talk to transplant physician yesterday to discuss his medications however I never received a call back. Called back again today and currently awaiting return phone call. History of atrial fibrillation -Continue home carvedilol via G-tube -Continue to hold diltiazem for now -Patient does not appear to be chronically anticoagulated at baseline History of stroke -Patient with multifocal strokes on imaging -Appears to have significant small vessel disease as well -Continue home plavix via NG -Continue to address modifiable risk factors as able Essential hypertension -Patient is on midodrine at home currently on hold as blood pressures have been elevated -Continue carvedilol -Continue to hold diltiazem -Continue home hydralazine -As needed hydralazine available -Monitor closely with Precedex use GERD -IV PPI twice daily BPH with obstruction -Flomax on hold due to the fact that it is not crushable -Patient does still make some urine Pancytopenia -White count is normalizing with antibiotics suspect elevation was related to infection -Continue to monitor -Hemoglobin and platelets are slightly trending down -With negative Hemoccult and Gastroccult suspect is related to blood draws -May need transfusion and if he does he will need CMV negative irradiated blood due to his history of transplant -Counts stable in the last 24-hour will repeat CBC in a.m. DM-2 -Continue basal insulin to 14 units (home dose 4 units)--> suspect elevation is due to acute illness and consistent nutrition -Blood sugar control is improved with fasting sugar this morning at 173 -Continue to monitor and adjust insulins as needed -Continue SSI every 6 -Patient is on tube feed at goal rate Hyperlipidemia -Continue home statin Depression -Continue home sertraline DVT/GI prophylaxis -Hold subcu heparin due to thrombocytopenia -Continue SCDs and hold chemoprophylaxis until platelet count greater than 75,000 -Protonix 40 mg daily IV CODE STATUS -Full code Disposition: -Still awaiting bed at [facility] x 10 days. [facility] declined patient due to his transplant surgery being at [facility]--> Per discussion with [facility] today there is still 10 patients waiting for ICU beds some of which are from at [facility] facilities which get priority Charges/Coding Visit Charges Inpatient E&M: 10865 Subs Hosp L3
[2024-06-14] MEDS: Dextrose 5%-Water (1000mL Bag) 1,000 ML 75 ML IV (13:44)
--- NOTE | 2024-06-14 14:03 | PN.HOSP_ITS ---
Hospitalist Note Called [facility] Transfer line again today to talk to a transplant architect. Personal cell number given. Call made at 1228. No return call again today as on 1924.
--- NOTE | 2024-06-14 14:03 | PCM.HOSP.N ---
Hospitalist Note Called [facility] Transfer line again today to talk to a transplant manager financial services. Personal cell number given. Call made at 1228. No return call again today as on 1924.
[2024-06-14] MEDS: dexMEDEtomidine 400 MCG in 0.9% Normal Saline (100mL Bag) 96 ML 10.4 MCG CONT INF (14:34)
--- NOTE | 2024-06-14 14:48 | PCM.PN.TICU ---
Objective Data Objective Data Vital Signs: Vital Signs Last response Temperature 37.1 C 06/14/24 14:00 Temperature Source Core 06/14/24 14:00 Pulse Rate 68 06/14/24 14:00 Pulse Strength Weak (1+) 06/13/24 19:36 Respiratory Rate 15 06/14/24 14:00 Respiratory Effort Normal, Non-Labored, Mechanically Ventilated 06/14/24 12:00 Respiratory Depth Normal 06/14/24 12:00 Respiratory Pattern Normal 06/14/24 12:00 Blood Pressure 133/56 H 06/14/24 14:00 Blood Pressure Mean 81 06/14/24 14:00 Blood Pressure Source Monitor 06/14/24 14:00 Blood Pressure Position Semi-Fowlers 06/14/24 14:00 Blood Pressure Location Left Arm 06/14/24 14:00 Pulse Ox 100 06/14/24 14:00 Oxygen Delivery Method Mechanical Ventilator 06/14/24 14:00 Oxygen Flow Rate (L/min) 21 06/13/24 11:00 Fraction of Inspired Oxygen (FIO2) 21 06/14/24 14:00 I&O: I&O Last 24 Hours 06/13/24 06/14/24 06/14/24 23:59 11:59 23:59 Intake Total 1203.21 / 2407.51 455.00 / 712.09 257.09 / 712.09 Output Total 90 / 120 50 / 125 75 / 125 Balance 1113.21 / 2287.51 405.00 / 587.09 182.09 / 587.09 I&O: Total Stay 06/01/24 11:01 thru 06/14/24 14:34 Intake Total 43115.5500 Output Total 08694 Balance 7356.5500 Current Meds Ordered / Administered: Current meds ordered / Administered Generic Name Dose Route Start Last Admin Trade Name Freq PRN Reason Stop Dose Admin Acetaminophen 650 mg 06/05/24 21:17 06/13/24 01:06 Acetaminophen 650 Mg/20 Ml Udc NG 650 mg Q6H PRN PRN Administration Pain 1-10 Or Fever >100.7 Atorvastatin Calcium 40 mg 06/05/24 22:00 06/13/24 21:08 Atorvastatin Calcium 40 Mg Tablet NG 40 mg QHS HIRAM Administration Calamine/Phenol 1 applic 06/01/24 22:00 06/14/24 10:23 Menthol/Lanolin/Calamine/Znox 113 Gm Tube TOPICAL 1 applic BID HIRAM Administration Protocol Carvedilol 25 mg 06/08/24 22:00 06/09/24 21:22 Carvedilol 25 Mg Tablet NG Not Given BID HIRAM Protocol Chlorhexidine Gluconate 1 each 06/11/24 10:00 06/14/24 04:29 Chlorhexidine Gluc 2% Cloth 1 Each Towelette TOPICAL 1 each DAILY HIRAM Administration Chlorhexidine Gluconate 15 ml 06/10/24 22:00 06/14/24 10:24 Chlorhexidine 15 Ml PO 15 ml BID HIRAM Administration Clopidogrel Bisulfate 75 mg 06/06/24 10:00 06/14/24 10:23 Clopidogrel Bisulfate 75 Mg Tablet NG 75 mg DAILY HIRAM Administration Glucagon 1 mg 06/01/24 19:28 Glucagon 1 Mg/Ml Syringe IM X1 PRN Hypoglycemia Protocol Heparin Sodium (Porcine) 5,000 unit 06/05/24 14:00 06/13/24 13:19 Heparin Injection (Vial) 5,000 Unit/Ml Vial SC 5,000 unit Q8 HIRAM Administration Hydralazine HCl 50 mg 06/05/24 22:00 06/09/24 21:22 Hydralazine 50 Mg Tablet NG Not Given Q12 HIRAM Protocol Hydralazine HCl 10 mg 06/06/24 07:22 06/06/24 12:08 Hydralazine 20 Mg/Ml Vial IV 10 mg Q6H PRN PRN Administration Blood Pressure >160/110 Protocol Dextrose 250 mls @ 0 mls/hr 06/01/24 19:28 Dextrose 10%-Water IV .Q0M PRN HYPOGLYCEMIA Protocol As Directed Enteral Nutritional Formula 1,000 mls @ 45 mls/hr 06/06/24 11:30 06/13/24 23:02 Nepro Carb Steady GT 45 mls/hr .[id number] HIRAM Administration Fentanyl 100 mls @ 5 mls/hr 06/09/24 15:30 06/13/24 13:33 CONT INF Not Given UD HIRAM Protocol 50 MCG/HR Pantoprazole Sodium 40 mg/ 110 mls @ 330 mls/hr 06/10/24 10:00 06/14/24 10:49 Sodium Chloride IV Infused Q12 HIRAM Infusion Ampicillin Sodium/Sulbactam 112 mls @ 150 mls/hr 06/13/24 22:00 06/13/24 22:02 Sodium 3 gm/ Sodium Chloride IV Infused QHS HIRAM Infusion Dexmedetomidine HCl 400 mcg/ 100 mls @ 8.638 mls/hr 06/13/24 16:15 06/14/24 14:34 Sodium Chloride CONT INF 0.6 mcg/kg/hr .[id number] HIRAM 10.4 mls/hr Administration Protocol 0.5 MCG/KG/HR Vancomycin IV-PHARMACY TO DOSE 500 mls @ 250 mls/hr 06/14/24 07:22 1 each/ Sodium Chloride IV PRN PRN Rx to Dose Protocol Dextrose 1,000 mls @ 75 mls/hr 06/14/24 12:45 06/14/24 13:44 IV 06/15/24 02:04 75 mls/hr .[id number] HIRAM Administration Insulin Glargine 14 unit 06/13/24 22:00 06/13/24 23:03 Insulin Glargine-Yfgn 100 Unit/Ml Pen SC 14 unit QHS HIRAM Administration Insulin Human Lispro 0 unit 06/07/24 00:01 06/14/24 12:38 Insulin Lispro 100 Unit/Ml Insuln.Pen SC 4 units Q6H HIRAM Administration Protocol Lactulose 30 gm 06/15/24 10:00 Lactulose 20 Gm/30 Ml Udc NG DAILY HIRAM Metoclopramide HCl 5 mg 06/12/24 10:00 06/14/24 10:23 Metoclopramide 10 Mg/2 Ml Vial IV 5 mg BID HIRAM Administration Nitroglycerin 0.4 mg 06/01/24 16:15 Nitroglycerin (Inpatient Use) 0.4 Mg Tab.Subl SL Q5M PRN CARDIAC/CHEST PAIN Nystatin 1 applic 06/03/24 10:00 06/14/24 10:23 Nystatin Powder 15gm Bottle TOPICAL 1 applic BID HIRAM Administration Protocol Nystatin 500,000 unit 06/10/24 18:00 06/14/24 13:59 Nystatin 500,000 Unit/5 Ml Udc PO 500,000 unit 4X/DAY HIRAM Administration Prochlorperazine Edisylate 5 mg 06/01/24 16:15 06/08/24 05:25 Prochlorperazine 10 Mg/2 Ml Vial IV 5 mg Q4H PRN PRN Administration Breakthrough nausea/vomiting Pyridoxine HCl 100 mg 06/02/24 10:00 06/14/24 10:23 Pyridoxine Hcl 100 Mg Tablet PO 100 mg DAILY HIRAM Administration Senna/Docusate Sodium 2 tablet 06/05/24 21:15 Senna/Docusate Sodium 1 Tablet NG BID PRN PRN Constipation Sodium Bicarbonate 650 mg 06/05/24 22:00 06/14/24 13:59 Sodium Bicarbonate 650 Mg Tablet NG 650 mg TID HIRAM Administration Sodium Chloride 10 - 40 ml 06/01/24 18:05 06/14/24 11:02 0.9% Saline Lock 10 Ml Syringe IV 20 ml UD PRN Administration SALINE FLUSH Tacrolimus 2 mg 06/05/24 22:00 06/14/24 10:22 Tacrolimus Anhydrous 1 Mg Capsule NG 2 mg BID HIRAM Administration Vancomycin Protocol 1 lab 06/15/24 04:00 Vancomycin Trough/Random Due [facility] 06/15/24 08:00 [facility]ILY [facility] Medical Records Data Medical Nutrition Assessment Dietitian: Malnutrition Criteria Met Start: 06/04/24 13:41 Freq: Status: Active Protocol: Document 06/12/24 09:39 REBECA (Rec: 06/12/24 09:39 [facility] [id number]) Nutrition Malnutrition Evidence of Malnutrition Exists Yes Malnutrition (severe): Chronic Evidenced By Suboptimal Energy Intake ( Severe),Weight Loss (Severe) Intake Problem Inadequate Oral Intake Etiology related to pt on vent and swallowing difficulty Signs/Symptoms as evidenced by NPO and need for enteral nutrition support Status Active Problem Clinical Problem Chronic Disease or Condition Related Malnutrition Etiology severe protein-calorie malnutrition in the context of chronic disease related to inadequate oral/energy intake and difficulty swallowing Signs/Symptoms 25% unintentional weight loss x 13 months, 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 Will restart TF of Nepro via NG tube to start at 15mL/hr and increase as tolerated by 10mL/hr Q 6-8 hours to goal rate 45 mL/hr. Flush with 120mL water Q 4 hours. TF at goal rate along with free water flushes will provide 1912 kcal, 87.5 gm pro and 1505 mL/ free water per day. Will adjust enteral nutrition support and flushes as needed. Lab / Micro Data 06/14/24 03:02 06/14/24 03:02 Labs: Laboratory Results - last 24 hr 06/13/24 17:37: POC Glucose 158 H 06/13/24 22:58: POC Glucose 149 H 06/14/24 03:02: WBC 5.6, RBC 2.22 L, Hgb 7.1 L, Hct 23.1 L, MCV 104.1 H, MCH 32.0, MCHC 30.7 L, RDW Std Deviation 72.7 H, RDW Coeff of Ursula 20.6 H, Plt Count 63 L, MPV 10.1, Immature Gran % (Auto) 3.600 H, Neut % (Auto) 66.4, Lymph % (Auto) 13.6 L, [place] % (Auto) 13.8 H, Eos % (Auto) 2.2, Baso % (Auto) 0.4, Absolute Neuts (auto) 3.7, Absolute Lymphs (auto) 0.76 L, Nucleated RBC % 0.7, Platelet Estimate MOD DEC, Anisocytosis 1+, Sodium 144, Potassium 4.1, Chloride 114 H, Carbon Dioxide 23.0, Anion Gap 7, BUN 41 H, Creatinine 5.02 H, Estim Creat Clear Calc 11.16, Est GFR (MDRD) Af Amer 14 L, Est GFR (MDRD) Non-Af 12 L, BUN/Creatinine Ratio 8.2 L, Glucose 159 H, Calcium 11.0 H, Phosphorus 3.2, Magnesium 2.5, Total Bilirubin 0.50, AST 18, ALT 24, Alkaline Phosphatase 76, Total Protein 5.7 L, Albumin 2.2 L, Globulin 3.5, Albumin/Globulin Ratio 0.6 L 06/14/24 05:03: POC Glucose 165 H Imaging Radiology Impression Chest X-Ray 06/14/24 11:51 IMPRESSION: No significant change. Electronically Signed: Holland Grossman MD at 13:31 EDT , Assessment and Plan . Assessment and plan: HPI 79 yo chronically ill and immunosuppressed man admitted 06/01/24 w/ FTT at home. Stable, but ill and hypoactive on admission. UCX revealed GNR - treated w/ IV ABX. He has ESRD and required HD M/W/F. Course has been c/b persistent hypercalcemia despite HD. He remotely underwent OLTx and receives CellCept and Prograf. Prograf level obtained, but has not been resulted. He has had declining LOC and required O-T intubation and MV support 06/09/24. CT brain NAP. pCXR unremarkable. Lab o/w largely unremarkable. Currently sedated/unresponsive. HD stable. Modest MV requirement. He is awaiting TX to tertiary facility. 06/14/24 Precedex infusing - he appears comfortable but is not cooperative w/ my voice Modest MV requirement - stable mechanics - MV a bit higher today HD scheduled for tomorrow Ca++ remains elevated, but trending down MRI brain noted - no acute findings pCXR looks fine PHYSICAL EXAM GEN stuporous VS as above HEENT VICKY, NGT NECK supple COR RRR CHEST CTA ABD soft EXT minimal edema SKIN w/d JENNIFER grossly NF ASSESSMENT 1. Acute respiratory failure requiring MV support 2. Severe encephalopathy w/ stupor / coma 3. ESRD 4. Hypercalcemia 5. Remote OLTx - chronically received Cellcept and Prograf 6. DM 7. H/O VTED 8. UTI - treated 9. Fever - resolved 10. 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
[2024-06-14 19:57] LABS: Bedside Glucose 209 mg/dL (74-106)
[2024-06-14 19:58] LABS: Bedside Glucose 166 mg/dL (74-106)
[2024-06-14] MEDS: Atorvastatin Calcium 40 MG Tablet NG (20:33)
[2024-06-14] MEDS: Ampicillin/Sulbactam 3 GM in 0.9% Normal Saline (100mL MB+) 100 ML IV (21:00)
[2024-06-14] MEDS: dexMEDEtomidine 400 MCG in 0.9% Normal Saline (100mL Bag) 96 ML 13.8 MCG CONT INF (22:00)
[2024-06-14] MEDS: NEPRO TUBE FEED 1,000 ML 45 ML GT (22:12)
[2024-06-14] MEDS: Insulin Glargine-YFGN 100 UNIT/ML Pen 14 UNIT SC (23:11)
[2024-06-14 23:32] LABS: Bedside Glucose 199 mg/dL (74-106)
[2024-06-15] VITALS (40 sets, daily range): BP systolic 72–179; BP diastolic 42–71; PULSE 49–76; RESP 14–19; TEMP 36.4–37.7; O2SAT 100; BMI 24.6; BMI 24.4
[2024-06-15 03:33] LABS: Absolute Lymphocyte Count 0.57 X10^3/uL (0.83-4.51); Absolute Neutrophil Count 4.9 X10^3/uL (2.0-7.7); Basophil# 0.03 X10^3/uL; Basophil% 0.4 % (0-1); Eosinophil# 0.19 X10^3/uL; Eosinophils% 2.8 % (0-5); Lymphocyte # 0.57 X10^3/ul (0.83-4.51); Lymphocyte % 8.5 % (19-41); Mean Corp Hgb Conc 30.4 g/dL (32-36); Mean Corpuscular Hgb 31.8 pg (27.0-32.0); Mean Corpuscular Volume 104.5 fL (80-94); Mean Platelet Vol. 10.1 fl (6.2-12.0); Monocyte# 0.78 X10^3/uL; Monocyte% 11.7 % (0-10); NRBC Flagged by Analyzer 0 % (0-5); Neutrophil # 4.94 X10^3/uL (2.7-7.7); Neutrophil % 74.1 % (47-70); POSITIVE COUNT YES; POSITIVE DIFFERENTIAL YES; POSITIVE MORPHOLOGY YES; Platelet Count 71 K/mm3 (150-450); RBC Distribution Width CV 20.8 % (11.6-14.6); RBC Distribution Width SD 76.8 fl (35.1-43.9); White Blood Count 6.7 K/mm3 (4.4-11.0)
[2024-06-15 03:49] LABS: ALB/GLOB Ratio 0.6 RATIO (0.9-2.4); AST(SGOT) 16 U/L (15-37); Alanine Aminotransfer ALT/SGPT 22 U/L (16-61); Albumin, Serum 2.1 g/dL (3.2-5.0); Alkaline Phosphatase 73 U/L (45-117); Anion Gap 5 (5-15); BUN 51 mg/dL (7-18); BUN/Creat Ratio 10.3 RATIO (10-20); Calcium,Total 10.6 mg/dL (8.5-10.1); Chloride 109 mmol/L (98-107); Creatinine, Serum 4.97 mg/dL (0.70-1.30); EST Glomerular Filtration Rate 12 mL/min (>60); Est Glom Filt Rate - Afr Amer 15 mL/min (>60); Estimated Creatinine Clearance 11.27 ml/min; Globulin 3.3 g/dL (2.2-4.2); Glucose 199 mg/dL (74-106); Magnesium 2.4 mg/dL (1.6-2.6); Phosphorus 3.3 mg/dL (2.5-4.9); Potassium 3.9 mmol/L (3.5-5.1); Protein, Total 5.4 g/dL (6.4-8.2); Sodium Level 139 mmol/L (136-145); Vancomycin, Random Level 15.2 ug/mL (0.0-15.0)
[2024-06-15 03:57] LABS: Differential Indicated SCAN CRITERIA MET
[2024-06-15] MEDS: TITRATION PARAMETER CHANGE 1 EACH IV (03:59)
[2024-06-15] MEDS: 0.9% Saline Lock 10 ML Syringe IV ×4 (03:59→11:07)
--- NOTE | 2024-06-15 04:02 | PCM.RX.CS ---
Consult Antibiotic Management Pharmacy has been consulted to manage selected antibiotic: Vancomycin Type of Intervention Type of Consult: Follow-up Suspected Infection Suspected Infection: Other Labs Labs: Sodium 139 mmol/L (136-145) 06/15/24 03:20 Potassium 3.9 mmol/L (3.5-5.1) 06/15/24 03:20 Chloride 109 mmol/L (98-107) H 06/15/24 03:20 Carbon Dioxide 24.0 mmol/L (21.0-32.0) 06/15/24 03:20 Anion Gap 5 (5-15) 06/15/24 03:20 BUN 51 mg/dL (7-18) H 06/15/24 03:20 Creatinine 4.97 mg/dL (0.70-1.30) H 06/15/24 03:20 Est GFR (MDRD) Af Amer 15 mL/min (>60) L 06/15/24 03:20 Est GFR (MDRD) Non-Af 12 mL/min (>60) L 06/15/24 03:20 BUN/Creatinine Ratio 10.3 RATIO (10-20) 06/15/24 03:20 Glucose 199 mg/dL (74-106) H 06/15/24 03:20 Random Vancomycin 15.2 ug/mL (0.0-15.0) H 06/15/24 03:20 Microbiology Microbiology: Microbiology 06/09/24 15:30 Sputum, Induced/Lukens Gram Stain - Final 06/09/24 15:30 Sputum, Induced/Lukens Respiratory Culture - Final 06/11/24 05:40 Stool Stool Occult Blood (ZITA) - Final 06/09/24 07:10 Gastric Fluid/Contents Gastric Occult Blood - Final 06/01/24 13:16 Urine, Clean Catch Urine Culture - Final Klebsiella pneumoniae sp pneum Pharmacy Plan for Drug Dosing Pharmacy Plan for Drug Dosing: VANCOMYCIN LEVEL RECEIVED Current Vancomycin Dose: by pre-HD level Number of Doses Received: 500mg x1, 1000mg x1 Vancomycin Level: 15.2 Renal Function: HD MWF - HD session today Vancomycin Plan/Comments: 500mg x1 dose following HD session today Pending Level: Random pre-HD level 06/17/24 @ 0600 Pharmacy Service will continue to monitor and adjust dosing as required. Follow-Up Labs Follow-Up Labs: Trough: Vancomycin (06/17/24 @06:00)
[2024-06-15] MEDS: Sodium Bicarbonate 650 MG Tablet NG ×2 (04:55→14:08)
[2024-06-15] MEDS: dexMEDEtomidine 400 MCG in 0.9% Normal Saline (100mL Bag) 96 ML 14.3 MCG CONT INF ×2 (05:01→12:28)
[2024-06-15] MEDS: CHLORHEXIDINE GLUC 2% CLOTH 1 EACH TOWELETTE TOPICAL (05:01)
[2024-06-15] MEDS: Insulin Lispro 100 UNIT/ML INSULN.PEN SC ×2 (05:01→17:19)
[2024-06-15 05:08] LABS: Differential Comment SCANNED; Platelet Estimate MOD DEC (ADEQ)
[2024-06-15 05:09] LABS: Anisocytosis 2+
[2024-06-15 05:10] LABS: Burr Cells RARE; Polychromasia RARE
[2024-06-15 05:23] LABS: Bedside Glucose 150 mg/dL (74-106)
[2024-06-15] MEDS: PureFlow B 3K Dialysis Soln 1 BAG 6 BAG PF (08:04)
[2024-06-15] MEDS: 0.9% Normal Saline 1,000 ML IV.SOLN. 1000 ML OPERA.SITE (08:04)
[2024-06-15] MEDS: Epoetin Alfa epbx 10,000 UNIT/ML 20000 UNIT IV (08:26)
--- NOTE | 2024-06-15 10:58 | PN.CC_ITS ---
Objective Data Objective Data Vital Signs: Vital Signs Last response 3 Temperature 36.4 C L 06/15/24 10:45 Temperature Source Core 06/15/24 10:45 Pulse Rate 68 06/15/24 10:45 Pulse Strength Weak (1+) 06/15/24 10:00 Respiratory Rate 16 06/15/24 10:45 Respiratory Effort Mechanically Ventilated 06/15/24 08:00 Respiratory Depth Normal 06/15/24 08:00 Respiratory Pattern Normal 06/15/24 08:00 Blood Pressure 129/50 H 06/15/24 10:45 Blood Pressure Mean 76 06/15/24 10:45 Blood Pressure Source Monitor 06/15/24 10:45 Blood Pressure Position Semi-Fowlers 06/15/24 10:45 Blood Pressure Location Left Arm 06/15/24 10:45 Pulse Ox 100 06/15/24 10:45 Oxygen Delivery Method Mechanical Ventilator 06/15/24 10:45 Oxygen Flow Rate (L/min) 21 06/13/24 11:00 Fraction of Inspired Oxygen (FIO2) 21 06/15/24 10:45 I&O: I&O Last 24 Hours 3 06/14/24 06/14/24 06/15/24 11:59 23:59 11:59 Intake Total 455.00 / 2421.69 1952.89 / 2421.69 1275.30 / 1275.30 Output Total 50 / 235 185 / 235 100 / 100 Balance 405.00 / 2186.69 1767.89 / 2186.69 1175.30 / 1175.30 I&O: Total Stay 3 06/01/24 11:01 thru 06/15/24 10:39 Intake Total 70884.6500 Output Total 31397 Balance 92514.6500 Current Meds Ordered / Administered: Current meds ordered / Administered 3 Generic Name Dose Route Start Last Admin Trade Name Freq PRN Reason Stop Dose Admin Acetaminophen 650 mg 06/05/24 21:17 06/13/24 01:06 Acetaminophen 650 Mg/20 Ml Udc NG 650 mg Q6H PRN PRN Administration Pain 1-10 Or Fever >100.7 Atorvastatin Calcium 40 mg 06/05/24 22:00 06/14/24 20:33 Atorvastatin Calcium 40 Mg Tablet NG 40 mg QHS HIRAM Administration Calamine/Phenol 1 applic 06/01/24 22:00 06/14/24 20:36 Menthol/Lanolin/Calamine/Znox 113 Gm Tube TOPICAL 1 applic BID HIRAM Administration Protocol Carvedilol 25 mg 06/08/24 22:00 06/09/24 21:22 Carvedilol 25 Mg Tablet NG Not Given BID HIRAM Protocol Chlorhexidine Gluconate 1 each 06/11/24 10:00 06/15/24 05:01 Chlorhexidine Gluc 2% Cloth 1 Each [place] TOPICAL 1 each DAILY HIRAM Administration Chlorhexidine Gluconate 15 ml 06/10/24 22:00 06/14/24 20:33 Chlorhexidine 15 Ml PO 15 ml BID HIRAM Administration Clopidogrel Bisulfate 75 mg 06/06/24 10:00 06/14/24 10:23 Clopidogrel Bisulfate 75 Mg Tablet NG 75 mg DAILY HIRAM Administration Glucagon 1 mg 06/01/24 19:28 Glucagon 1 Mg/Ml Syringe IM X1 PRN Hypoglycemia Protocol Hemodialysis Solution 6 bag 06/15/24 07:15 06/15/24 08:04 Pureflow B 3k Dialysis Soln 1 Bag PF 06/15/24 19:06 6 bag UD HIRAM Administration Protocol Heparin Sodium (Porcine) 5,000 unit 06/05/24 14:00 06/13/24 13:19 Heparin Injection (Vial) 5,000 Unit/Ml Vial SC 5,000 unit Q8 HIRAM Administration Heparin Sodium (Porcine) 1,000 - 3,000 units 06/15/24 07:05 Heparin 10,000 Units/10 Ml Vial IV 06/15/24 19:06 X1 PRN HD catheter closing Hydralazine HCl 50 mg 06/05/24 22:00 06/09/24 21:22 Hydralazine 50 Mg Tablet NG Not Given Q12 HIRAM Protocol Hydralazine HCl 10 mg 06/06/24 07:22 06/06/24 12:08 Hydralazine 20 Mg/Ml Vial IV 10 mg Q6H PRN PRN Administration Blood Pressure >160/110 Protocol Dextrose 250 mls @ 0 mls/hr 06/01/24 19:28 Dextrose 10%-Water IV .Q0M PRN HYPOGLYCEMIA Protocol As Directed Enteral Nutritional Formula 1,000 mls @ 45 mls/hr 06/06/24 11:30 06/14/24 22:12 Nepro Carb Steady GT 45 mls/hr .[id number] HIRAM Administration Pantoprazole Sodium 40 mg/ 110 mls @ 330 mls/hr 06/10/24 10:00 06/14/24 21:36 Sodium Chloride IV Infused Q12 HIRAM Infusion Ampicillin Sodium/Sulbactam 112 mls @ 150 mls/hr 06/13/24 22:00 06/14/24 22:19 Sodium 3 gm/ Sodium Chloride IV Infused QHS HIRAM Infusion Dexmedetomidine HCl 400 mcg/ 100 mls @ 8.913 mls/hr 06/13/24 16:15 06/15/24 10:00 Sodium Chloride CONT INF 0.8 mcg/kg/hr .[id number] HIRAM 14.3 mls/hr Titration Protocol 0.5 MCG/KG/HR Vancomycin IV-PHARMACY TO DOSE 500 mls @ 250 mls/hr 06/14/24 07:22 1 each/ Sodium Chloride IV PRN PRN Rx to Dose Protocol Vancomycin HCl 500 mg in 100 mls @ 100 mls/hr 06/15/24 16:00 IV 06/15/24 16:59 X1 ONE Insulin Glargine 14 unit 06/13/24 22:00 06/14/24 23:11 Insulin Glargine-Yfgn 100 Unit/Ml Pen SC 14 unit QHS HIRAM Administration Insulin Human Lispro 0 unit 06/07/24 00:01 06/15/24 05:01 Insulin Lispro 100 Unit/Ml Insuln.Pen SC 2 units Q6H HIRAM Administration Protocol Lactulose 30 gm 06/15/24 10:00 Lactulose 20 Gm/30 Ml Udc NG DAILY HIRAM Metoclopramide HCl 5 mg 06/12/24 10:00 06/14/24 20:35 Metoclopramide 10 Mg/2 Ml Vial IV 5 mg BID HIRAM Administration Nitroglycerin 0.4 mg 06/01/24 16:15 Nitroglycerin (Inpatient Use) 0.4 Mg Tab.Subl SL Q5M PRN CARDIAC/CHEST PAIN Nystatin 1 applic 06/03/24 10:00 06/14/24 20:36 Nystatin Powder 15gm Bottle TOPICAL 1 applic BID HIRAM Administration Protocol Nystatin 500,000 unit 06/10/24 18:00 06/14/24 20:34 Nystatin 500,000 Unit/5 Ml Udc PO 500,000 unit 4X/DAY HIRAM Administration Prochlorperazine Edisylate 5 mg 06/01/24 16:15 06/08/24 05:25 Prochlorperazine 10 Mg/2 Ml Vial IV 5 mg Q4H PRN PRN Administration Breakthrough nausea/vomiting Pyridoxine HCl 100 mg 06/02/24 10:00 06/14/24 10:23 Pyridoxine Hcl 100 Mg Tablet PO 100 mg DAILY HIRAM Administration Senna/Docusate Sodium 2 tablet 06/05/24 21:15 Senna/Docusate Sodium 1 Tablet NG BID PRN PRN Constipation Sodium Bicarbonate 650 mg 06/05/24 22:00 06/15/24 04:55 Sodium Bicarbonate 650 Mg Tablet NG 650 mg TID HIRAM Administration Sodium Chloride 10 - 40 ml 06/01/24 18:05 06/15/24 08:04 0.9% Saline Lock 10 Ml Syringe IV 20 ml UD PRN Administration SALINE FLUSH Sodium Chloride 1,000 ml 06/15/24 07:05 06/15/24 08:04 0.9% Normal Saline 1,000 Ml Iv.Soln. OPERA.SITE 06/15/24 19:06 1,000 ml X1 HIRAM Administration Sodium Chloride 200 ml 06/15/24 07:05 0.9% Normal Saline 1,000 Ml Iv.Soln. IV 06/15/24 19:06 X1 PRN to maintain SBP >90mmHg during Dialysis Tacrolimus 2 mg 06/05/24 22:00 06/14/24 20:35 Tacrolimus Anhydrous 1 Mg Capsule NG 2 mg BID HIRAM Administration Vancomycin Protocol 1 lab 06/17/24 04:00 Vancomycin Trough/Random Due MC 06/17/24 08:00 DAILY [facility] Medical Records Data Medical Nutrition Assessment Dietitian: Malnutrition Criteria Met Start: 06/04/24 13:41 Freq: Status: Active Protocol: Document 06/15/24 10:45 REBECA (Rec: 06/15/24 10:45 [email or web address] [id number]) Nutrition Malnutrition Evidence of Malnutrition Exists Yes Malnutrition (severe): Chronic Evidenced By Suboptimal Energy Intake ( Severe),Weight Loss (Severe) Intake Problem Inadequate Oral Intake Etiology related to pt on vent and swallowing difficulty Signs/Symptoms as evidenced by NPO and need for enteral nutrition support Status Active Problem Clinical Problem Chronic Disease or Condition Related Malnutrition Etiology severe protein-calorie malnutrition in the context of chronic disease related to inadequate oral/energy intake and difficulty swallowing Signs/Symptoms 25% unintentional weight loss x 13 months, PO meeting <75% of estimated nutrition needs x 1 year [employer] Status Active Problem Recommendation Dietitian Recommendations/Changes Continue Nepro via NG tube 45 mL/hr and feeding tube flush of 120mL water Q 4 hours to meet estimated nutrition needs . Lab / Micro Data 06/15/24 15:35 06/15/24 03:20 Labs: Laboratory Results - last 24 hr 06/14/24 12:37: POC Glucose 209 H 06/14/24 18:33: POC Glucose 166 H 06/14/24 23:10: POC Glucose 199 H 06/15/24 03:20: WBC 6.7, RBC 2.20 L, Hgb 7.0 L, Hct 23.0 L, MCV 104.5 H, MCH 31.8, MCHC 30.4 L, RDW Std Deviation 76.8 H, RDW Coeff of Ursula 20.8 H, Plt Count 71 L, MPV 10.1, Immature Gran % (Auto) 2.500 H, Neut % (Auto) 74.1 H, Lymph % (Auto) 8.5 L, [place] % (Auto) 11.7 H, Eos % (Auto) 2.8, Baso % (Auto) 0.4, Absolute Neuts (auto) 4.9, Absolute Lymphs (auto) 0.57 L, Nucleated RBC % 0, Differential Comment SCANNED, Platelet Estimate MOD DEC, Polychromasia RARE, Anisocytosis 2+, Og Cells RARE, Sodium 139, Potassium 3.9, Chloride 109 H, Carbon Dioxide 24.0, Anion Gap 5, BUN 51 H, Creatinine 4.97 H, Estim Creat Clear Calc 11.27, Est GFR (MDRD) Af Amer 15 L, Est GFR (MDRD) Non-Af 12 L, BUN/Creatinine Ratio 10.3, Glucose 199 H, Calcium 10.6 H, Phosphorus 3.3, Magnesium 2.4, Total Bilirubin 0.50, AST 16, ALT 22, Alkaline Phosphatase 73, T otal Protein 5.4 L, Albumin 2.1 L, Globulin 3.3, Albumin/Globulin Ratio 0.6 L, R andom Vancomycin 15.2 H 06/15/24 05:01: POC Glucose 150 H Imaging Radiology Impression Chest X-Ray 06/14/24 11:51 IMPRESSION: No significant change. Electronically Signed: Holland Grossman MD at 13:31 EDT , Assessment and Plan . Assessment and plan: HPI 79 yo chronically ill and immunosuppressed man admitted 06/01/24 w/ FTT at home. Stable, but ill and hypoactive on admission. UCX revealed GNR - treated w/ IV ABX. He has ESRD and required HD M/W/F. Course has been c/b persistent hypercalcemia despite HD. He remotely underwent OLTx and receives CellCept and Prograf. Prograf level obtained, but has not been resulted. He has had declining LOC and required O-T intubation and MV support 06/09/24. CT brain NAP. pCXR unremarkable. Lab o/w largely unremarkable. Currently sedated/unresponsive. HD stable. Modest MV requirement. He is awaiting TX to tertiary facility. 06/15/24 Precedex infusing - he appears comfortable but is not cooperative w/ verbal stimulation Modest MV requirement - stable HD done today - 500 mL UF Ca++ remains elevated, but trending down MRI brain noted - no acute findings PHYSICAL EXAM GEN stuporous VS as above HEENT VICKY, NGT NECK supple COR RRR CHEST CTA ABD soft EXT minimal edema SKIN w/d JENNIFER grossly NF ASSESSMENT 1. Acute respiratory failure requiring MV support 2. Severe encephalopathy w/ stupor / coma 3. ESRD 4. Hypercalcemia 5. Remote OLTx - chronically received Cellcept and Prograf 6. DM 7. H/O VTED 8. UTI - treated 9. Fever - resolved 10. Ileus - improved TREATMENT PLAN -MV support -follow clinical VESSEL LINER exam -precedex as needed for comfort -would stop ABX -I would hold Prograf -sq insulin -enteral nutrition -HD M-W-F -defer Ca++ management to Nephrology -sq UFH -prognosis very guarded Critical Care Time: 50 min The entirety of this encounter was done via Telemedicine
[2024-06-15] MEDS: Heparin 10,000 UNITS/10 ML Vial IV (11:08)
[2024-06-15] MEDS: Menthol/Lanolin/Calamine/Znox 113 GM Tube 1 APPLIC TOPICAL (11:29)
[2024-06-15] MEDS: Nystatin Powder 15gm Bottle 1 APPLIC TOPICAL (11:29)
[2024-06-15] MEDS: NYSTATIN 500,000 UNIT/5 ML UDC 500000 UNIT PO ×3 (11:29→17:20)
[2024-06-15] MEDS: Lactulose 20 GM/30 ML UDC 30 GM NG (11:30)
[2024-06-15] MEDS: Tacrolimus Anhydrous 1 MG Capsule 2 MG NG (11:30)
[2024-06-15] MEDS: Pyridoxine HCl 100 MG Tablet PO (11:31)
[2024-06-15] MEDS: Clopidogrel Bisulfate 75 MG Tablet NG (11:31)
[2024-06-15] MEDS: Metoclopramide 10 MG/2 ML Vial 5 MG IV (11:31)
[2024-06-15] MEDS: Chlorhexidine 15 ML PO (11:32)
[2024-06-15] MEDS: Pantoprazole Sodium 40 MG in 0.9% Normal Saline (100mL MB+) 100 ML 330 MG IV (11:52)
[2024-06-15 12:13] LABS: Bedside Glucose 122 mg/dL (74-106)
--- NOTE | 2024-06-15 15:17 | PN_ITS ---
Subjective Subjective Patient seen and examined. He remains intubated and sedated. RASS score is -4. Unable to do review of systems. Objective Data Objective Data Vital Signs: Vital Signs Temp Pulse Resp BP Pulse Ox O2 Del Method O2 Flow Rate 97.9 F 49 L 14 138/68 H 100 Mechanical Ventilator 21 06/15/24 12:00 06/15/24 15:00 06/15/24 15:00 06/15/24 15:00 06/15/24 15:00 06/15/24 15:00 06/13/24 11:00 FiO2 21 06/15/24 15:00 Oxygen Flow Rate (L/min) 21 Oxygen Delivery Method Mechanical Ventilator Weight: 155 lb 10.342 oz Body Mass Index (BMI) 24.4 Intake & Output: Intake and Output for Last 24 Hours 06/13/24 06/14/24 06/15/24 23:59 23:59 23:59 Intake Total 2399.21 / 2407.51 2407.89 / 2421.69 2197.22 / 2197.22 Output Total 120 / 120 235 / 235 600 / 600 Balance 2279.21 / 2287.51 2172.89 / 2186.69 1597.22 / 1597.22 Medical Nutrition Assessment Dietitian: Malnutrition Criteria Met Start: 06/04/24 13:41 Freq: Status: Active Protocol: Document 06/15/24 10:45 REBECA (Rec: 06/15/24 10:45 [email or web address] [id number]) Nutrition Malnutrition Evidence of Malnutrition Exists Yes Malnutrition (severe): Chronic Evidenced By Suboptimal Energy Intake ( Severe),Weight Loss (Severe) Intake Problem Inadequate Oral Intake Etiology related to pt on vent and swallowing difficulty Signs/Symptoms as evidenced by NPO and need for enteral nutrition support Status Active Problem Clinical Problem Chronic Disease or Condition Related Malnutrition Etiology severe protein-calorie malnutrition in the context of chronic disease related to inadequate oral/energy intake and difficulty swallowing Signs/Symptoms 25% unintentional weight loss x 13 months, PO meeting <75% of estimated nutrition needs x 1 year [employer] Status Active Problem Recommendation Dietitian Recommendations/Changes Continue Nepro via NG tube 45 mL/hr and feeding tube flush of 120mL water Q 4 hours to meet estimated nutrition needs . Lab / Micro Data 06/15/24 03:20 06/15/24 03:20 Labs: Laboratory Results - last 24 hr 06/14/24 12:37: POC Glucose 209 H 06/14/24 18:33: POC Glucose 166 H 06/14/24 23:10: POC Glucose 199 H 06/15/24 03:20: WBC 6.7, RBC 2.20 L, Hgb 7.0 L, Hct 23.0 L, MCV 104.5 H, MCH 31.8, MCHC 30.4 L, RDW Std Deviation 76.8 H, RDW Coeff of Ursula 20.8 H, Plt Count 71 L, MPV 10.1, Immature Gran % (Auto) 2.500 H, Neut % (Auto) 74.1 H, Lymph % (Auto) 8.5 L, [place] % (Auto) 11.7 H, Eos % (Auto) 2.8, Baso % (Auto) 0.4, Absolute Neuts (auto) 4.9, Absolute Lymphs (auto) 0.57 L, Nucleated RBC % 0, Differential Comment SCANNED, Platelet Estimate MOD DEC, Polychromasia RARE, Anisocytosis 2+, [place] Cells RARE, Sodium 139, Potassium 3.9, Chloride 109 H, Carbon Dioxide 24.0, Anion Gap 5, BUN 51 H, Creatinine 4.97 H, Estim Creat Clear Calc 11.27, Est GFR (MDRD) Af Amer 15 L, Est GFR (MDRD) Non-Af 12 L, BUN/Creatinine Ratio 10.3, Glucose 199 H, Calcium 10.6 H, Phosphorus 3.3, Magnesium 2.4, Total Bilirubin 0.50, AST 16, ALT 22, Alkaline Phosphatase 73, T otal Protein 5.4 L, Albumin 2.1 L, Globulin 3.3, Albumin/Globulin Ratio 0.6 L, R andom Vancomycin 15.2 H 06/15/24 05:01: POC Glucose 150 H 06/15/24 11:45: POC Glucose 122 H Micro: Microbiology 06/09/24 15:30 Sputum, Induced/Lukens Gram Stain - Final 06/09/24 15:30 Sputum, Induced/Lukens Respiratory Culture - Final 06/11/24 05:40 Stool Stool Occult Blood (ZITA) - Final 06/09/24 07:10 Gastric Fluid/Contents Gastric Occult Blood - Final 06/01/24 13:16 Urine, Clean Catch Urine Culture - Final Klebsiella pneumoniae sp pneum Physical Exam Const Constitutional Narrative: intubated, sedated, RASS score is -4. HEENT normocephalic and head/scalp atraumatic HEENT Narrative: dry oral mucosa Eyes PERRL and EOMs intact bilaterally Neck no lymphadenopathy and supple Lymph Lymphatic: no lymphadenopathy noted and no lymphedema noted Resp Resp Narrative: intubated, sedated, RASS score is -4. Diminished breath sounds bilaterally, no wheezes or crackles. Cardio regular rate, regular rhythm, S1 normal heart sound, S2 normal heart sound and no murmurs GI normal to inspection, nondistended, normoactive bowel sounds, soft to palpation and non-tender Extremity normal capillary refill, no clubbing, cyanosis or edema and no calf tenderness General Extremity: no tenderness to palpation of joints or extremities Skin General Skin Exam: no breakdown and turgor normal Neuro Neuro Narrative: intubated, sedated, RASS score is -4. Motor Exam: general weakness Assessment & Plan Assessment/Plan (1) Toxic metabolic encephalopathy: (2) Hypercalcemia: PLAN: Plan #Acute hypoxic respiratory failure due to altered mental status with inability to protect airway and aspiration pneumonia * was intubated on 06/09/2024 to protect his airway * remains intubated and sedated. * EEG showed no signs of seizures. * neurology as well as critical care on board. * Awaiting transfer to [facility]. * vent management as per critical care. * on IV unasyn. Sputum cultures were polymicrobial. * #Acute encephalopathy likely metabolic and toxic\ * As above. CT of the brain and MRI of the brain showed no acute intracranial pathology. * When the electrolyte abnormalities have resolved patient still remains encephalopathic. Tacrolimus level was also within normal limits. * EEG showed no signs of seizure. Neurology on board. * #Aspiration pneumonia * on IV unasyn. To complete a 7 day course of antibiotics * Patient also having a fever and there was concern that it could be due to the Precedex. Vancomycin added on and blood cultures ordered * WBC is improving. * #Severe hypercalcemia * Was given calcitonin but did not respond to this. Subsequently received pamidronate and calcium is now down to 10. It peaked at around 14.9. * Nephrology on board. Unable to do bone scan as he is intubated. Imaging has been unremarkable for any evidence of malignancy. PTH related peptide is pending. * There was concern that the elevated calcium was contributing to his encephalopathy. * #Hypokalemia and hypophosphatemia resolved #Markedly dilated pancreatic duct * This was seen on the MRCP. Discussed this with GI and they felt it was related to his chronic pancreatitis. #Hypernatremia and hyperchloremia: Resolved #History of alcoholic liver disease s/p liver transplant * Patient awaiting transfer to [facility]. * CellCept on hold as it cannot be crushed and administered via the NG tube. * Tacrolimus level within normal limits at 9.7. On tacrolimus. Also on lactulose. Ammonia has been normal but he did receive lactulose. His transplant was apparently back in 2007. * Liver enzymes have not been elevated. * Patient still awaiting transfer to [facility]. #History of A-fib: On carvedilol. Cardizem on hold. Not anticoagulated #History of multifocal stroke * On aspirin via NG tube #Benign essential hypertension * On carvedilol and hydralazine. Was on midodrine but this has been discontinued because blood pressure has been elevated while seated. IV hydralazine. 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 H hemoglobin was 7 today. Will recheck H&H and if is less than 7 we will transfuse. Hemoccult and Gastroccult test were negative. * Anemia may also be related to his ESRD. Transfuse if Hb less than 7. If he needs transfusion will need CMV negative irradiated blood due to his history of transplant * #Type 2 diabetes mellitus: On Lantus 14 units daily. Usually on 4 units daily. Insulin sliding scale. Accu-Cheks every 6 hourly. Currently on tube feeds #Hyperlipidemia: On statin #Depression: On sertraline DVT prophylaxis: SCDs due to anemia. Heparin held today due to anemia Disposition: Patient still awaiting transfer to [facility] Prognosis. Prognosis remains very poor. Patient's and children have been counseled about this extensively during the course of this admission Charges/Coding Visit Charges Inpatient E&M: [id number] [facility] Hosp L3
[2024-06-15 15:46] LABS: Hematocrit 23.1 % (40-54); Hemoglobin 7.1 g/dL (13.0-16.5)
[2024-06-15] MEDS: Vancomycin IV 500 MG/100 ML BAG 100 MG IV (15:52)
[2024-06-15 17:39] LABS: Bedside Glucose 174 mg/dL (74-106)
--- NOTE | 2024-06-15 18:08 | NURSING ---
Patient left with transport. Report given. Full Precedex bag went with patient transporter. Family notified of patient leaving to [facility]. Patient stable upon leaving.
--- NOTE | 2024-06-15 18:10 | PCM.PN.REN ---
Subjective Subjective still intubated Objective Data Objective Data Vital Signs: Vital Signs Temp Pulse Resp BP Pulse Ox O2 Del Method O2 Flow Rate 98.8 F 64 14 127/58 H 100 Mechanical Ventilator 21 06/15/24 16:00 06/15/24 17:08 06/15/24 17:08 06/15/24 16:00 06/15/24 17:08 06/15/24 16:00 06/13/24 11:00 FiO2 21 06/15/24 17:08 Oxygen Flow Rate (L/min) 21 Oxygen Delivery Method Mechanical Ventilator Weight: 70.6 kg Body Mass Index (BMI) 24.4 Intake & Output: Intake and Output for Last 24 Hours 06/13/24 06/14/24 06/15/24 23:59 23:59 23:59 Intake Total 2399.21 / 2407.51 2407.89 / 2421.69 2475.61 / 2475.61 Output Total 120 / 120 235 / 235 730 / 730 Balance 2279.21 / 2287.51 2172.89 / 2186.69 1745.61 / 1745.61 Medical Nutrition Assessment Dietitian: Malnutrition Criteria Met Start: 06/04/24 13:41 Freq: Status: Active Protocol: Document 06/15/24 10:45 REBECA (Rec: 06/15/24 10:45 REBECA [id number]) Nutrition Malnutrition Evidence of Malnutrition Exists Yes Malnutrition (severe): Chronic Evidenced By Suboptimal Energy Intake ( Severe),Weight Loss (Severe) Intake Problem Inadequate Oral Intake Etiology related to pt on vent and swallowing difficulty Signs/Symptoms as evidenced by NPO and need for enteral nutrition support Status Active Problem Clinical Problem Chronic Disease or Condition Related Malnutrition Etiology severe protein-calorie malnutrition in the context of chronic disease related to inadequate oral/energy intake and difficulty swallowing Signs/Symptoms 25% unintentional weight loss x 13 months, 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 Lab / Micro Data 06/15/24 15:35 06/15/24 03:20 Labs: Laboratory Results - last 24 hr 06/14/24 12:37: POC Glucose 209 H 06/14/24 18:33: POC Glucose 166 H 06/14/24 23:10: POC Glucose 199 H 06/15/24 03:20: WBC 6.7, RBC 2.20 L, Hgb 7.0 L, Hct 23.0 L, MCV 104.5 H, MCH 31.8, MCHC 30.4 L, RDW Std Deviation 76.8 H, RDW Coeff of Ursula 20.8 H, Plt Count 71 L, MPV 10.1, Immature Gran % (Auto) 2.500 H, Neut % (Auto) 74.1 H, Lymph % (Auto) 8.5 L, [place] % (Auto) 11.7 H, Eos % (Auto) 2.8, Baso % (Auto) 0.4, Absolute Neuts (auto) 4.9, Absolute Lymphs (auto) 0.57 L, Nucleated RBC % 0, Differential Comment SCANNED, Platelet Estimate MOD DEC, Polychromasia RARE, Anisocytosis 2+, [place] Cells RARE, Sodium 139, Potassium 3.9, Chloride 109 H, Carbon Dioxide 24.0, Anion Gap 5, BUN 51 H, Creatinine 4.97 H, Estim Creat Clear Calc 11.27, Est GFR (MDRD) Af Amer 15 L, Est GFR (MDRD) Non-Af 12 L, BUN/Creatinine Ratio 10.3, Glucose 199 H, Calcium 10.6 H, Phosphorus 3.3, Magnesium 2.4, Total Bilirubin 0.50, AST 16, ALT 22, Alkaline Phosphatase 73, Total Protein 5.4 L, Albumin 2.1 L, Globulin 3.3, Albumin/Globulin Ratio 0.6 L, Random Vancomycin 15.2 H 06/15/24 05:01: POC Glucose 150 H 06/15/24 11:45: POC Glucose 122 H 06/15/24 15:35: Hgb 7.1 L, Hct 23.1 L 06/15/24 17:18: POC Glucose 174 H Micro: Microbiology 06/09/24 15:30 Sputum, Induced/Lukens Gram Stain - Final 06/09/24 15:30 Sputum, Induced/Lukens Respiratory Culture - Final 06/11/24 05:40 Stool Stool Occult Blood (ZITA) - Final 06/09/24 07:10 Gastric Fluid/Contents Gastric Occult Blood - Final 06/01/24 13:16 Urine, Clean Catch Urine Culture - Final Klebsiella pneumoniae sp pneum Physical Exam Narrative On ventilator S1, S2, RRR Lung sounds clear anteriorly Abdomen soft, nontender No edema indwelling [place] with scant yellow urine in tubing Right IJ tunneled hemodialysis catheter dressing clean, dry and intact Right mid arm AV fistula with good thrill and bruit. Sutures intact Assessment & Plan Assessment/Plan (1) ESRD (end stage renal disease) on dialysis: (2) General weakness: (3) Anemia of chronic disease: PLAN: Plan Impression/Plan: The patient is a 79-year-old male with past medical history significant for ESRD who dialyzes at [facility]. 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 The patient was brought to the emergency room for evaluation of weakness and difficulty standing. He is admitted for evaluation of debility and diarrhea. The patient is also being treated for acute hypoxic respiratory failure due to aspiration pneumonia. He was intubated on 06/09/2024 and is being treated for pneumonia with antibiotic. He is awaiting transfer to [facility] for evaluation of ongoing encephalopathy. Nephrology is following patient for ESRD as well as hypercalcemia. ESRD HD today. see orders. Hypercalcemia. Serum calcium was as high as 14.9 mg/dL on 06/10/2024. Patient was treated with pamidronate Calcium level is better today. Etiology for hypercalcemia is still unclear. Studies for cause of hypercalcemia are all negative so far. PTH related peptide is still pending.
--- NOTE | 2024-06-16 16:48 | PCM.DC.SUM ---
Providers Date of Admission: 06/03/24 Date of Discharge: 06/16/24 Primary Care Physician: Dr. Sanju Fiore MD Consultations 06/01/24 16:15 Consult: Vascular Surgery Routine Consulting Provider: Bo Baxter Reason for Consult: Follow up after AV fistula surgery EMERGENT Consult: No Notified: Yes Date Notified: 06/01/24 Time Notified: 14:59 Method of Notification: Text 06/01/24 19:28 Consult: Nephrology Routine Consulting Provider: Winston Kennedy Reason for Consult: ESRD ON HD EMERGENT Consult: No Notified: Yes Date Notified: 06/01/24 Time Notified: 15:28 Method of Notification: Verbal 06/04/24 17:43 Consult: Gastroenterology Routine Consulting Provider: Clarence Dial Reason for Consult: dilated duct EMERGENT Consult: No Notified: Yes Date Notified: 06/04/24 Time Notified: 17:43 Method of Notification: Verbal 06/07/24 23:28 Consult: Onc/Wound/fish packer Routine Comment: Reason for Consult:: RT AC FISTULA SUTURES Comments:: in since 05/05 cant go to office for removal d/t bedrest 06/09/24 16:35 Consult: Mechanical Service Specialist / Pulmonary Medicine Routine Consulting Provider: Intensivists/Pulmonary Med Reason for Consult: vent mgt EMERGENT Consult: No Notified: Yes Date Notified: 06/09/24 Time Notified: 16:32 Method of Notification: Answering Service 06/11/24 15:13 Consult: Tele-Neurology Routine Consulting Provider: [facility] Reason for Consult: altered mental status EMERGENT Consult: No Notified: Yes Date Notified: 06/11/24 Time Notified: 15:13 Method of Notification: Answering Service Nursing Unit Staff Notify [facility] of Tele-Neurology Consult: Yes Reason For Visit: GEN WEAKNESS, DEHYDRATION AFTER DIARRHEA Diagnosis Discharge Diagnosis (1) ESRD (end stage renal disease) on dialysis: Status: Chronic Code(s): N18.6 - End stage renal disease; Z99.2 - Dependence on renal dialysis (2) General weakness: Status: Acute Code(s): R53.1 - Weakness (3) Anemia of chronic disease: Status: Chronic Code(s): D63.8 - Anemia in other chronic diseases classified elsewhere Plan #Acute hypoxic respiratory failure due to altered mental status with inability to protect airway and aspiration pneumonia was intubated on 06/09/2024 to protect his airway remains intubated and sedated. EEG showed no signs of seizures. neurology as well as critical care on board. Awaiting transfer to [facility]. vent management as per critical care. on IV unasyn. Sputum cultures were polymicrobial. #Acute encephalopathy likely metabolic and toxic\ As above. CT of the brain and MRI of the brain showed no acute intracranial pathology. When the electrolyte abnormalities have resolved patient still remains encephalopathic. Tacrolimus level was also within normal limits. EEG showed no signs of seizure. Neurology on board. #Aspiration pneumonia on IV unasyn. To complete a 7 day course of antibiotics Patient also having a fever and there was concern that it could be due to the Precedex. Vancomycin added on and blood cultures ordered WBC is improving. #Severe hypercalcemia Was given calcitonin but did not respond to this. Subsequently received pamidronate and calcium is now down to 10. It peaked at around 14.9. Nephrology on board. Unable to do bone scan as he is intubated. Imaging has been unremarkable for any evidence of malignancy. PTH related peptide is pending. There was concern that the elevated calcium was contributing to his encephalopathy. #Hypokalemia and hypophosphatemia resolved #Markedly dilated pancreatic duct This was seen on the MRCP. Discussed this with GI and they felt it was related to his chronic pancreatitis. #Hypernatremia and hyperchloremia: Resolved #History of alcoholic liver disease s/p liver transplant Patient awaiting transfer to [facility]. CellCept on hold as it cannot be crushed and administered via the NG tube. Tacrolimus level within normal limits at 9.7. On tacrolimus. Also on lactulose. Ammonia has been normal but he did receive lactulose. His transplant was apparently back in 2007. Liver enzymes have not been elevated. Patient still awaiting transfer to [facility]. #History of A-fib: On carvedilol. Cardizem on hold. Not anticoagulated #History of multifocal stroke On aspirin via NG tube #Benign essential hypertension On carvedilol and hydralazine. Was on midodrine but this has been discontinued because blood pressure has been elevated while seated. IV hydralazine. #GERD: On PPI #BPH with obstruction: On Flomax but this has been held as it cannot be administered via the NG tube #Pancytopenia: Platelets are 71 today. H hemoglobin was 7 today. Will recheck H&H and if is less than 7 we will transfuse. Hemoccult and Gastroccult test were negative. Anemia may also be related to his ESRD. Transfuse if Hb less than 7. If he needs transfusion will need CMV negative irradiated blood due to his history of transplant #Type 2 diabetes mellitus: On Lantus 14 units daily. Usually on 4 units daily. Insulin sliding scale. Accu-Cheks every 6 hourly. Currently on tube feeds #Hyperlipidemia: On statin #Depression: On sertraline DVT prophylaxis: SCDs due to anemia. Heparin held today due to anemia Disposition: Patient still awaiting transfer to [facility] Prognosis. Prognosis remains very poor. Patient's and children have been counseled about this extensively during the course of this admission Medications at Discharge Home Medications aspirin 81 mg tablet 81 mg PO DAILY 08/22/21 atorvastatin 40 mg tablet 40 mg PO QHS 08/22/21 sodium bicarbonate 650 mg tablet 650 mg PO TID 08/22/21 pyridoxine (vitamin B6) 100 mg tablet (Vitamin B-6) 100 mg PO DAILY 04/26/23 insulin glargine 100 unit/mL (3 mL) subcutaneous pen (Lantus Solostar U-100 Insulin) 4 unit subcut QHS 03/03/24 insulin lispro 100 unit/mL subcutaneous pen (Humalog KwikPen (U-100) Insulin) 1 sliding scale dose subcut TID 03/03/24 midodrine 5 mg tablet 5 mg PO BID 03/03/24 tamsulosin 0.4 mg capsule 0.4 mg PO QHS 03/03/24 torsemide 20 mg tablet 40 mg PO DAILY 03/03/24 carvedilol 12.5 mg tablet 12.5 mg PO BID 05/01/24 clopidogrel 75 mg tablet 75 mg PO DAILY 05/01/24 diltiazem HCl 240 mg capsule,extended release 24 hr 240 mg PO DAILY 05/01/24 mycophenolate mofetil 250 mg capsule 500 mg PO BID 05/01/24 pantoprazole 40 mg tablet,delayed release 40 mg PO DAILY 05/01/24 sertraline 25 mg tablet 25 mg PO DAILY 05/01/24 tacrolimus 1 mg capsule, immediate-release 2 mg PO BID 05/01/24 hydralazine 50 mg tablet 50 mg PO Q12.TCU 06/01/24 vitamin B complex-vitamin C-folic acid 0.8 mg tablet (Jie-Anne-Marie) 1 tab PO DAILY 06/01/24 Hospital Course Operations None Procedures Intubation Summary of Care Provided Minutes Spent on Discharge: 65 Hospital Course: Patient is a 79-year-old male with a PMH as outlined who was admitted via the D on 06.01.2024 with a complaint of generalized weakness for one week. He could not even sit up or walk. He also complained of diarrhea. CT of the abdomen and pelvis showed interval worsening of extensive pancreatic ductal dilatation associated with calcifications throughout the pancreas including within the pancreatic duct and pancreatic atrophy. He had not been able to go for dialysis his previous session because he felt very weak. He was admitted and managed for debility and weakness as well as dehydration from diarrhea. Nephrology was consulted and patient was started on dialysis. Patient had a very long and protracted hospital course. Vascular surgery was consulted for removal of the sutures of his AV fistula which was created on 05/05/2024 but they recommended outpatient follow-up. Hospital course was complicated by worsening confusion and lethargy. He also had hypercalcemia which was not responsive to calcitonin. He did have a pamidronate which brought down the calcium subsequently. He had MRCP of the abdomen which showed severe dilatation of the pancreatic duct and a trophy of the pancreas with calcifications consistent with component of chronic pancreatitis and no dominant mass. There was dilatation of the common bile duct with focal stricture narrowing and mild intrahepatic biliary dilatation also. Gastroenterology reviewed patient and started him on lactulose. Of note his ammonia level was less than 10. Patient could not get his tacrolimus initially as he was very lethargic and unable to swallow. Subsequently an NG tube was inserted and patient received his tacrolimus level. Tacrolimus level was not elevated. Family requested transfer to [facility] and patient was accepted to the hepatology service. Hospitalist course was complicated by patient being eventually transferred to the ICU on account of worsening lethargy and intubated to protect his airway. He did have 2D echo done which showed normal left ventricular size and moderate concentric left ventricular hypertrophy with normal systolic function and EF of 65%. He also had stage I diastolic dysfunction. Critical care and neurology were consulted. He was also started on IV antibiotics for aspiration pneumonia and he also developed a fever which was thought to be due to Precedex which he was on for sedation. Vancomycin was therefore added on and blood cultures were ordered. He had EEG which showed no signs of seizures. Patient eventually got a bed at [facility] and was transferred on 06/16/2024. Patient was seen on 06/15/2024 could not be seen on 06/16/2024 as he left at around 3 AM and so this hospitalist could not see him in review of him before discharge. Physical Exam Narrative not done as he left in the early hours of 06/16/2024 Weight / BMI Weight Weight: 155 lb 10.342 oz Body Mass Index (BMI) 24.4 ABG / Lab / Microbiology Data 06/15/24 15:35 06/15/24 03:20 Laboratory: Laboratory Results - last 24 hr 06/15/24 17:18: POC Glucose 174 H Microbiology: Microbiology 06/14/24 08:30 Blood Culture (Wb) - Left Hand Blood Culture - Preliminary No growth in 48 hours. 06/09/24 15:30 Sputum, Induced/Lukens Gram Stain - Final 06/09/24 15:30 Sputum, Induced/Lukens Respiratory Culture - Final 06/11/24 05:40 Stool Stool Occult Blood (ZITA) - Final 06/09/24 07:10 Gastric Fluid/Contents Gastric Occult Blood - Final 06/01/24 13:16 Urine, Clean Catch Urine Culture - Final Klebsiella pneumoniae sp pneum Meaningful Use Info Meaningful Use Meaningful Use Diagnoses (Choose all that apply): None applicable Ischemic Stroke Statin Dosing Therapy Reference: STATIN DOSE THERAPY REFERENCE: * Patients > 75 years receive moderate or high dose statin therapy. * Patients 75 years or YOUNGER should receive HIGH intensity statin dose unless contraindicated. You will be required to document reason for non-treatment if statin daily dose does not meet guidelines. HIGH DOSE STATIN THERAPY DAILY Atorvastatin > than or = to 40 mg Rosuvastatin > than or = to 20 mg Amlodipine + Atorvastatin > than or = to 2.5/40 mg Ezetimibe + Simvastatin 10/80 mg Simvastatin 80mg Discharge Plan Admission Admit Date/Time: 06/03/24 16:00 Primary Reason for Your Visit: acute encephalopathy, acute hypoxic respiratory failure Attending Provider: Lorna Jessica Primary Care Provider: Sanju Fiore Consulting Providers: Octavio Fried; Lorna Jessica; Clarence Dial; Maulik Sanchez; Timmy Jameson; Miky Snow; José Antonio Shane; Ronaldo Mathur; Sander Salmon; Yuliana Bar; Arden Duke; Obi Grigsby; Medina Bonilla; Jason Presley; Xavier Nowak; Jann Santamaria; Bhavesh Garcia; Kaia Kirkland; Gene Clement; Jordin Koroma; Winston Kennedy; Bo Baxter; Ruma Capps; Margarita Abarca; Marimar Ghotra; Pablo August; Azam Estrella; Roge Rubi; ELVA PURDY; Anna Garrett; Caroline Flanagan; Harlan Corey; Jeniffer Linn; Vipul Ramirez; Elba Ramirez; Jolly Hernadez; [place]; Janet Deluca; Clifford Nguyen; Alton Torres; Tulio Traore; Agapito Galvan; Noelle Barakat; William Roberts; Tracey Mcnulty; Donnie Pascual; Estefanía Lopez; Gwendolyn Urrutia; Haylee Lopez Discharge Orders/Prescriptions Prescriptions: No Action insulin glargine [Lantus Solostar U-100 Insulin] 100 unit/mL (3 mL) insulin pen 4 unit subcut QHS Patient Comments: 1/2 dose 05/04/24 Rx Instructions: family states prn insulin lispro [Humalog KwikPen Insulin] 100 unit/mL insulin pen 1 sliding scale dose subcut TID Rx Instructions: family states prn midodrine 5 mg tablet 5 mg PO BID tamsulosin 0.4 mg capsule 0.4 mg PO QHS torsemide 20 mg tablet 40 mg PO DAILY atorvastatin 40 mg tablet 40 mg PO QHS Patient Comments: TAKE 1 TABLET BY MOUTH DAILY AT BEDTIME sodium bicarbonate 650 mg tablet 650 mg PO TID Patient Comments: TAKE 1 TABLET BY MOUTH TWICE DAILY DIRECTED aspirin 81 mg Tablet 81 mg PO DAILY pyridoxine (vitamin B6) [Vitamin B-6] 100 mg tablet 100 mg PO DAILY Jie-Anne-Marie 0.8 mg tablet 1 tab PO DAILY hydralazine 50 mg tablet 50 mg PO Q12.TCU diltiazem HCl 240 mg capsule,extended release 24hr 240 mg PO DAILY carvedilol 12.5 mg tablet 12.5 mg PO BID mycophenolate mofetil 250 mg capsule 500 mg PO BID clopidogrel 75 mg tablet 75 mg PO DAILY tacrolimus 1 mg capsule 2 mg PO BID pantoprazole 40 mg tablet,delayed release (DR/EC) 40 mg PO DAILY sertraline 25 mg tablet 25 mg PO DAILY Referrals / Follow Up: Sanju Fiore MD [Primary Care Provider] - Disposition Disposition (needs filled in before D/C Order can be placed): Acute Care Hospital Charges/Coding Visit Charges Inpatient E&M: 14107 Disch Hosp >30min
== END 2024-06-15 18:13 | disposition short-term general hospital (02) | DRG 438 ==
LOC: ED 15:01 → MS3 15:03 → ICU 06-11 15:04
PROVIDERS: Internal Medicine; Internal Medicine Nephrology; Internal Medicine Pulmonary Disease; Nurse Practitioner Adult Health; Admitting Provider Internal Medicine; Emergency Provider Emergency Medicine; PCP Family Medicine; Visit Provider Student in an Organized Health Care Education/Training Program
DX: K86.89 Other specified diseases of pancreas (principal); N18.6 End stage renal disease; J96.00 Acute respiratory failure, unspecified whether with hypoxia or hypercapnia; J69.0 Pneumonitis due to inhalation of food and vomit; E11.01 Type 2 diabetes mellitus with hyperosmolarity with coma; G92.8 Other toxic encephalopathy; E43 Unspecified severe protein-calorie malnutrition; I31.39 Other pericardial effusion (noninflammatory); I13.2 Hypertensive heart and chronic kidney disease with heart failure and with stage 5 chronic kidney disease, or end stage renal disease; D61.818 Other pancytopenia; Z94.4 Liver transplant status; K56.7 Ileus, unspecified; E87.0 Hyperosmolality and hypernatremia; N13.8 Other obstructive and reflux uropathy; E11.22 Type 2 diabetes mellitus with diabetic chronic kidney disease; D63.8 Anemia in other chronic diseases classified elsewhere; F32.A Depression, unspecified; I48.91 Unspecified atrial fibrillation; K86.1 Other chronic pancreatitis; I50.9 Heart failure, unspecified; Z99.2 Dependence on renal dialysis; E78.5 Hyperlipidemia, unspecified; I25.10 Atherosclerotic heart disease of native coronary artery without angina pectoris; Z79.4 Long term (current) use of insulin; E87.6 Hypokalemia; E83.52 Hypercalcemia; K21.9 Gastro-esophageal reflux disease without esophagitis; E87.8 Other disorders of electrolyte and fluid balance, not elsewhere classified; E11.65 Type 2 diabetes mellitus with hyperglycemia; F41.9 Anxiety disorder, unspecified; E86.0 Dehydration; R19.7 Diarrhea, unspecified; K70.30 Alcoholic cirrhosis of liver without ascites; E83.39 Other disorders of phosphorus metabolism; R53.81 Other malaise; R53.1 Weakness; Z95.5 Presence of coronary angioplasty implant and graft; R62.7 Adult failure to thrive; Z79.82 Long term (current) use of aspirin; R13.10 Dysphagia, unspecified; N40.1 Benign prostatic hyperplasia with lower urinary tract symptoms; B96.1 Klebsiella pneumoniae [K. pneumoniae] as the cause of diseases classified elsewhere; Z86.73 Personal history of transient ischemic attack (TIA), and cerebral infarction without residual deficits; Z79.899 Other long term (current) drug therapy; Z79.02 Long term (current) use of antithrombotics/antiplatelets; Z90.49 Acquired absence of other specified parts of digestive tract; Z68.25 Body mass index [BMI] 25.0-25.9, adult
CPT/HCPCS: 31720; 36415; 36600; 70450; 70551; 71045; 71100; 71250; 74018; 74176; 74181; 80048; 80053; 80076; 80197; 80202; 81002; 82140; 82271; 82274; 82306; 82330; 82652; 82784; 82803; 82962; 83735; 83883; 83970; 84100; 84165; 84443; 84484; 85014; 85018; 85025; 85610; 86334; 87040; 87070; 87077; 87086; 87088; 87186; 87205; 90937; 92610; 93005; 93306; 94002; 94003; 94668; 95819; 97110; 97163; 97166; 97530; 97802; 97803; 99252; 99282; J7030; J7040; J7050; P9047; A4216; G0257; G0463; J0295; J0630; J1940; J2430; Q5106